=== PATIENT | female | born 1950 | race Caucasian/White ===

== ENCOUNTER 2024-07-10 10:44 | Outpatient (REF) | payer MEDICARE, SELFPAY ==
--- NOTE | ~2024-07-10 | XR_ITS ---
EXAMINATION: XR CERVICAL SPINE CLINICAL INFORMATION: G95.9 - Disease of spinal cord, unspecified COMPARISON: None available. TECHNIQUE: 6 views of the cervical spine, inclusive of flexion and extension views, were obtained. FINDINGS: There is a minimal levoconvex scoliosis. There is mild reversal of the normal lordosis centered at C5. No definite fracture, traumatic subluxation, compression deformity, or suspicious bone lesion. The craniocervical junction and C1-2 articulation are intact and aligned. Anterior fusion and discectomy C5-6, without hardware abnormality or loosening. There is bony fusion through the disc space and anterior to the prosthesis. Mild disc degeneration C3-4, C4-5, and C6-7. Multilevel facet degeneration without facet malalignment. Neutral view demonstrates a 2 mm anterolisthesis of C3 on C4. There is a trace retrolisthesis of C6 on C7 . Flexion view demonstrates mild increase of C3-4 anterolisthesis 3 mm. No additional changes. Extension view demonstrates reduction C3-4 anterolisthesis to neutral. Findings could represent mild instability. There is no prevertebral soft tissue abnormality. Mild left carotid bulb calcification. Lung apices demonstrate mild pleural thickening without additional abnormality. XR/XR cervical spine 4V IMPRESSION: 1. No acute findings of the cervical spine. 2. Fusion of C5-6 without complication. 3. Multilevel degenerative spondylosis as discussed. 4. Flexion and extension views demonstrate possible mild instability at C3-4. Electronically signed by: Aureliano Jaimes MD 07/11/2024 10:12 AM [facility] [place], [place]
--- OUTSIDE RECORDS SUMMARY | 2024-07-10 12:04 | XMS_ITS | Encounter Summary ---
Author Organization [facility] Address [address] [place] [address] Care Team Providers Care City Library Director Name Role Phone Bijal Fox NP Primary Care Provider [phone] Encounter Details Date Type Department Care Team (Late st Contact Info) Description 07/03/2024 Telephone [facility] Case Management Department [address] [place] [address] Mariajose Calvillo RN Social History Tobacco Use Types Packs/Day Years Used Date Smoking Tobacco: Former Smokeless Tobacco: Never Comments:: Alcohol Use Standard Drinks/Week Comments Not Currently 0 (1 standard drink = 0.6 oz pur e alcohol) [facility] Utilities Answer Date Recorded In the past [...] CHF Patient Call: This Chronic Disease Nurse Education Faculty Member called and 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 She tells this advertising writer she is doing well. She was at the pharmacy picking up her prescription for her nebulizer medication, she has been working with PT/OT through [facility]. She does still get a little shortness of breath with exertion, but no issues at rest or when laying down. She will be changing insurances on 07/20/24 to [employer]. Did you review the COPD educational material given to you in the hospital? Yes Are you monitoring your triggers? Yes Are you having any shortness of breath, wheezing, coughing? Shortness of breath with exertion only Are you having any difficulty breathing when lying down? No Are you doing the pursed lip/diaphragm breathing? Reviewed again Did you contact your PCP or Mechanical Handyman regarding your breathing issues? NA You have a follow up appointment with your PCP on: Was seen 07/02/24 You have a follow up appointment with your Mechanical Handyman on: The PCP is supposed to make [...] the home sanitized, avoiding sick contacts, using sort line worker when out in the community) Are you [...] more than 64 ounces per day) This advertising writer sent a secure chat to the [facility] team and asked them to [...] PM EDT Follow-Up [facility]phrology 100 [facility] [address] [place] [address] John Hendricks MD [address] [address] 01/08/2025 10:00 AM EDT Follow-Up [facility] 100 [facility] Cardiology 100 [facility] [address] [place] [address] Mabel Onofre NP [address] [place] [address] [address] [place] [address] documented as of this encounter Visit Diagnoses Not on filedocumented in this encounter Care Teams City Library Director Relationship Specialty Start Date End Date Bijal Fox NP [address] [place] [address] [address] [place] [address] PCP - General Family Medicine 05/30/24 documented as of this encounter
--- OUTSIDE RECORDS SUMMARY | 2024-07-10 12:04 | XMS_ITS | Encounter Summary ---
Author Organization [facility] Address [address] [place] [address] Care Team Providers Care Braid Cutter Name Role Phone Bijal Fox NP Primary Care Provider [phone] Reason for Referral * Diagnostic Imaging (Routine) - Authorized Specialty Diagnoses / Procedures Referred By Contac t Referred To Contact Diagnoses CKD stage 3a, GFR 45-59 ml/min (HCC) Chronic heart failure with preserved ejection fraction (HCC) Procedures US Kidney and Bladder Complete John Hendricks MD [address] [place] [address] Phone: tel: fax: Referral ID Status Reason Start Date Expiration Date V isits Requested Visits Authorized [id number] Authorized 07/01/2024 12/31/2025 1 1 Encounter Details Date Type Department Care Team (Late st Contact Info) Description 07/01/2024 3:15 PM EST Office Visit [facility] Neph[facility] [address] [place] [address], [address] [place] [address] John Hendricks MD [address] [place] [address] Hyperkalemia (Primary Dx); CKD stage 3a, GFR 45-59 ml/min (HCC); Chronic heart failure with preserved ejection fraction (HCC); Primary hypertension Social History Tobacco Use Types Packs/Day Years Used Date Smoking Tobacco: Former Smokeless Tobacco: Never Comments:: Alcohol Use Standard Drinks/Week Comments Not Currently 0 (1 standard drink = 0.6 oz pur e alcohol) [facility] Utilities Answer Date Recorded [...] Hendricks MD - 07/01/2024 3:25 PM EST [facility] Patient Name: Genie Vora Female Date of : 1950, 73 y.o. Date: 07/01/2024 Assessment & Plan 1. Hyperkalemia 2. CKD stage 3a, GFR 45-59 ml/min ([facility]) 3. Chronic heart failure with preserved ejection [...] 2011-07-29 Past Surgical History: Procedure Laterality Date NH ARTHROCENTESIS ASPIR&/INJ MAJOR JT/BURSA W/O US Right History of Arthrocentesis Injection Of Hip Joint Right hip steroid injection NH ARTHROCENTESIS ASPIR&/INJ MAJOR JT/BURSA W/O US Right History of Arthrocentesis Injection Of Hip Joint Right RIGHT HIP INJECTION WITH STEROID NH ARTHROCENTESIS ASPIR&/INJ MAJOR JT/BURSA W/O US Right History of Arthrocentesis Injection Of Hip Joint Right RIGHT HIP INJECTION NH ARTHROCENTESIS ASPIR&/INJ MAJOR JT/BURSA W/O US Right History of Arthrocentesis Injection Of Hip Joint Right RIGHT HIP CORTISONE INJECTION NH KNEE SCOPE,DIAGNOSTIC N/A History of Arthroscopy Knee NH ALVES W/O FACETEC FORAMOT/[facility] 05/23 VRT SEG, CERVICAL N/A History of Laminectomy Lumbar NH LAP,CHOLECYSTECTOMY N/A History of Cholecystectomy Laparoscopic PROCEDURE [...] visit. Allergies Allergen Reactions Prevacid [Lansoprazole] Indigestion Nzxtwoq-Ndc-Qdb Reductase Inhibitors Muscle Pain Per pt Objective [...] CONVERSION 09/01/2014 12:22 PM Dysphagia. Edited by: [id number] - 1232 [id number] - 0828 YASMINE CLINICAL HISTORY, CONVERSION 08/02/2013 04:39 PM Left wrist dequervain's and left carpal tunnel syndrome. Left wrist mass. Edited by: [id number] - 1747 APRIL CLINICAL HISTORY, CONVERSION 04/08/2010 03:39 PM Dyspepsia. Suspected gastroesophageal reflux disease. Dictated by: LACY CARBAJAL Edited by: [id number] - 2022 [place] [id number] CLINICAL HISTORY, CONVERSION 09/21/2006 02:09 PM Cholelithiasis. Edited by: [id number] - 1436 [facility] CLINICAL HISTORY, CONVERSION 04/26/2001 11:41 AM 50 year old female with a preop diagnosis of stress incontinence, urethral hypermobility, a rectocele and prolapsed cervix. The patient underwent abdominal hysterectomy and repair of rectocele. Edited by: [id number] - 1657 CLAUDIO CLINICAL HISTORY, CONVERSION 07/19/1999 12:15 PM Endometrial biopsy Edited by: [id number] - 0810 OWUSUC ALBUMIN 4.0 06/17/2024 07:03 [...] Info) Description 08/01/2024 2:00 PM EDT Follow-Up [facility] Nephrology [address] [place] [address] [address] [place] [address] John Hendricks MD [address] [place] [address] 01/08/2025 10:00 AM EDT Follow-Up [address]iology [address] [place] [address] [address] [place] [address] Mabel Onofre NP 100 [facility] [address] [place] [address] Scheduled Orders Name Type Priority Associated Diagnoses Orde r Schedule US Kidney and Bladder Complete Imaging Routine CKD stage 3a, GFR 45-59 ml/min (HCC) Chronic heart failure with preserved ejection fraction (HCC) Expected: 07/01/2024, Expires: 08/29/2025 documented as of this encounter Procedures * Due to [place] state law, this organization might not be [...] in this encounter Results * Due to [place] state law, this organization might not be sharing negative HIV tests. * (ABNORMAL) Microscopic Urinalysis Only (07/02/2024 9:17 AM EST) RBC, Urine 5-10(A) None Seen, 0-2 /HPF 07/02/2024 10:07 AM EST [facility] WBC, Urine 0-2 None Seen, 0-2 /HPF 07/02/2024 10:07 AM EST [facility] Squamous Epithelial Cells, Urine 0-2 /HPF 07/02/2024 10:07 AM EST [facility] Bacteria, Urine Occasional (A) None Seen /HPF 07/02/2024 10:07 AM EST [facility] Urine Urine specimen collection, clean catch / Unknown Non-Blood Collection / Unknown 07/02/2024 9:17 AM EST 07/02/2024 9:36 AM EST us John Hendricks MD LAB URINE ORDERABLES Final Resul t [facility] [address] [facility] [address] [place] [address], * (ABNORMAL) SPEP (Protein Electrophoresis w/Reflex to [...] 9:17 AM EST 07/02/2024 9:29 AM EST [facility] HILARY DAVID - 07/04/2024 8:59 AM EST [facility] Received Date: John Hendricks MD LAB BLOOD ORDERABLES Final Resul t HILARY DAVID [address] [facility] 3rd Floor, [place] [address], [place] [phone] * Magnesium (07/02/2024 9:17 AM EST) MG 1.9 1.5 - 2.5 mg/dL 07/02/2024 10:01 AM EST [facility] Blood Structure of peripheral vein / Unknown Venipuncture / Unknown 07/02/2024 9:17 AM EST 07/02/2024 9:29 AM EST John Hendricks MD LAB BLOOD ORDERABLES Final Resul t Performing Organization Address City/[facility] Co de Phone Number [facility] [address] [address], [place] [phone] * Microalbumin, Random Urine with Creatinine (07/02/2024 9:17 AM EST) Creatinine, Urine 55 mg/dL 07/02/2024 2:41 PM EST [facility] Microalbumin, Urine 4 <=20 mg/L 07/02/2024 2:41 PM EST [facility] Microalb/Creat Ratio, Random Urine 7.3 1.3 - 30.0 mg/g 07/02/2024 2:41 PM EST [facility] Urine Voided urine specimen / Unknown Non-Blood Collection / Unknown 07/02/2024 9:17 AM EST 07/02/2024 9:36 AM EST John Hendricks MD LAB URINE ORDERABLES Final Resul t Performing Organization Address [facility] Co de Phone Number [facility] [address] [place] [address], [place] [phone] * Protein, Random Urine with Creatinine (07/02/2024 9:17 AM EST) Protein, Urine 6 mg/dL 07/02/2024 2:41 PM EST [facility] Creatinine, Urine 55 mg/dL 07/02/2024 2:41 PM EST [facility] Protein/Creati nine Ratio 109 <200 mg/gmCr 07/02/2024 2:41 PM EST [facility] Urine Voided urine specimen / Unknown Non-Blood Collection / Unknown 07/02/2024 9:17 AM EST 07/02/2024 9:36 AM EST John Hendricks MD LAB URINE ORDERABLES Final Resul t Performing Organization Address City/[facility] Co de Phone Number [facility] [address] [address], [place] [phone] * (ABNORMAL) Urinalysis W/Reflex to Microscopic (No Culture) (07/02/2024 9:17 AM EST) Color, Urine Yellow Yellow 07/02/2024 9:44 AM EST [facility] Clarity, Urine Clear Clear 07/02/2024 9:44 AM EST [facility] Specific Leivasy, Urine 1.015 1.005 - 1.030 07/02/2024 9:44 AM EST [facility] pH, Urine 5.5 5.0 - 8.0 07/02/2024 9:44 AM EST [facility] Protein, Urine Negative Negative mg/dL 07/02/2024 9:44 AM EST [facility] Glucose, Urine Negative Negative mg/dL 07/02/2024 9:44 AM EST [facility] Ketones, Urine Negative Negative mg/dL 07/02/2024 9:44 AM EST [facility] Bilirubin, Urine Negative Negative 07/02/2024 9:44 AM EST [facility] Blood, Urine Small(A) Negative 07/02/2024 9:44 AM EST [facility] Nitrite, Urine Negative Negative 07/02/2024 9:44 AM EST [facility] Urobilinogen, Urine 0.2 0.2 - 1.0 E.U./dL 07/02/2024 9:44 AM EST [facility] Leukocyte Esterase, Urine Small(A) Negative 07/02/2024 9:44 AM EST [facility] Urine Urine specimen collection, clean catch / Unknown Non-Blood Collection / Unknown 07/02/2024 9:17 AM EST 07/02/2024 9:36 AM EST John Hendricks MD LAB URINE ORDERABLES Final Resul t Performing Organization Address [facility] Co de Phone Number [facility] [address] [address], [place] [phone] * (ABNORMAL) Vitamin D, 25-Hydroxy, Total, Immunoassay (07/02/2024 9:17 AM EST) Pathologist [facility] Vitamin D 25-OH 22.50(L) 30.00 - 80.00 ng/mL 07/02/2024 11:24 AM EST [facility] Blood Structure of peripheral vein / Unknown Venipuncture / Unknown 07/02/2024 9:17 AM EST 07/02/2024 9:29 AM EST John Hendricks MD LAB BLOOD ORDERABLES Final Resul t [facility] [address] [address], [place] [phone] * (ABNORMAL) Renal Function Panel (07/02/2024 9:17 AM EST) Pathologist [facility] NA 138 136 - 145 mmol/L 07/02/2024 10:02 AM EST [facility] K 4.4 3.5 - 5.1 mmol/L 07/02/2024 10:02 AM EST [facility] Comment:ALL DELTAS REVIEWED Cl 101 98 - 109 mmol/L 07/02/2024 10:02 AM EST [facility] CO2 26 22 - 32 mmol/L 07/02/2024 10:02 AM EST [facility] Anion Gap 15 >=0 07/02/2024 10:02 AM EST [facility] Glucose 115(H) 60 - 99 mg/dL 07/02/2024 10:02 AM EST [facility] BUN 37(H) 8 - 23 mg/dL 07/02/2024 10:02 AM [facility] Creatinine 1.47(H) 0.50 - 1.12 mg/dL 07/02/2024 10:02 AM EST [facility] Calcium 8.8 8.4 - 10.4 mg/dL 07/02/2024 10:02 AM EST [facility] Phosphorus 3.6 2.5 - 4.5 mg/dL 07/02/2024 10:02 AM EST [facility] Albumin 3.8 3.5 - 5.0 g/dL 07/02/2024 10:02 AM EST [facility] eGFR 38(L) >=60 mL/min/1. 73m2 07/02/2024 10:02 AM EST [facility] Comment:The estimated glomer ular filtration rate [...] MD LAB BLOOD ORDERABLES Final Resul t [facility] [address] [facility] [address] [place] [address], * (ABNORMAL) PTH, Intact (without Calcium) (07/02/2024 9:17 AM EST) Parathyroid Hormone, Intact 226.0(H) 14.5 - 87.1 pg/mL 07/02/2024 11:19 AM EST [facility] Comment: This test was performed using the chemiluminescent immunoassay (CLIA) intended for the quantitative determination of intact human parathyroid hormone method on the [employer] LIAISON. Values obtained from different assay methods cannot be used interchangeably. Assay results should be utilized in conjunction with other clinical and laboratory data Blood Structure of peripheral vein / Unknown Venipuncture / Unknown 07/02/2024 9:17 AM EST 07/02/2024 9:29 AM EST John Hendricks MD LAB BLOOD ORDERABLES Final Resul t Performing Organization Address [facility]/ZIP Co de Phone Number [facility] [address] [address], [place] [phone] * Hemoglobin and Hematocrit (07/02/2024 9:17 AM EST) Hemoglobin 12.0 11.7 - 15.5 g/dL 07/02/2024 9:38 AM EST [facility] Hematocrit 37.1 35.7 - 45.8 % 07/02/2024 9:38 AM EST [facility] Blood Structure of peripheral vein / Unknown Venipuncture / Unknown 07/02/2024 9:17 AM EST 07/02/2024 9:29 AM EST John Hendricks MD LAB BLOOD ORDERABLES Final Resul t Performing Organization Address City/[facility] Co de Phone Number [facility] [address] [address], [place] [phone] documented in this encounter Visit Diagnoses Diagnosis Hyperkalemia- Primary Hyperpotassemia CKD stage 3a, GFR 45-59 ml/min (HCC) Chronic heart failure with preserved ejection fraction (HCC) Primary hypertension Unspecified essential hypertension documented in this encounter Care Teams Braid Cutter Relationship Specialty Start Date End Date Bijal Fox NP [address] [place] [address] [address] [place] [address] PCP - General Family Medicine 05/30/24 documented as of this encounter
--- OUTSIDE RECORDS SUMMARY | 2024-07-10 12:04 | XMS_ITS | Encounter Summary ---
Author Organization [facility] Address [address] [place] [address] Care Team Providers Care Clipman Name Role Phone Brandyn Pagan MD Primary Care Provider Unavaila Radha Fink NP Unavailable Unavailable Unknown Pcp, Non Rmg Primary Care Provider Unava ilable Encounter Details Date Type Department Care Team ([facility] st Contact Info) Description 12/29/2015 Orders Only [address] [facility] Magnetic Resonance Imaging [address] [place] [address] Radha Spangler NP Social History Tobacco Use [...] this encounter Procedures * Due to [place] [employer] law, this organization might not be sharing [...] this encounter Results * Due to [place] [employer] law, this organization might not be sharing negative HIV tests. * (ABNORMAL) BASIC METABOLIC PANEL WITH (GFR) (12/29/2015 10:04 AM EDT) Glucose 98 65 - 99 mg/dL [facility] Comment: {GLUCOSE {[id number]) ? Fasting reference interval Urea Nitrogen Blood (BUN) 22 7 - 25 mg/dL [facility] Comment:{UREA NITROGEN (BUN) {[id number]) Creatinine 1.20(H) 0.50 - 0.99 mg/dL [facility] Comment: {CREATININE {[id number]) For patients >49 years of age, the reference limit for Creatinine is approximately 13% higher for people identified as -Congolese. GFR 48(L) > OR = 60 mL/min/1. 73m2 [facility] Comment:{eGFR NON-AFR. AMERI CAN {[id number]) GFR () 55(L) > OR = 60 mL/min/1. 73m2 [facility] Comment:{eGFR AMERIC AN {[id number]) BUN/Creatinine Ratio 18 6 - 22 (calc) [facility] Comment:{BUN/CREATININE RATI O {[id number]) Sodium 138 135 - 146 mmol/L [facility] Comment:{SODIUM {[id number]) Potassium 5.1 3.5 - 5.3 mmol/L [facility] Comment:{POTASSIUM {[id number]) Chloride 106 98 - 110 mmol/L [facility] Comment:{CHLORIDE {[id number]) Carbon dioxide 25 20 - 31 mmol/L [facility] Comment:{CARBON DIOXIDE {[id number]) Calcium 9.7 8.6 - 10.4 mg/dL [facility] Comment:{CALCIUM {[id number]) 12/29/2015 10:0 4 AM EDT 12/29/2015 [...] NP LABORATORY Final Result [facility] [address] [place] [address] * (ABNORMAL) LIPID PANEL WITH REFLEX TO DIRECT LDL (12/29/2015 10:04 AM EDT) Cholesterol 232(H) 125 - 200 mg/dL [facility] Comment:{CHOLESTEROL, TOTAL {[id number]) HDL Cholesterol 80 > OR = 46 mg/dL [facility] Comment:{HDL CHOLESTEROL {[id number]) Triglyceride 112 <150 mg/dL [facility] Comment:{TRIGLYCERIDES {[id number]) LDL Cholesterol 130(H) <130 mg/dL (calc) [facility] Comment: {LDL-CHOLESTEROL {[id number]) Desirable range <100 mg/dL for patients with CHD or diabetes and <70 mg/dL for diabetic patients with known heart disease. CHOL/HDL Ratio 2.9 < OR = 5.0 (calc) [facility] Comment:{CHOL/HDLC RATIO {[id number]) Cholesterol Non-HDL 152 mg/dL (calc) [facility] Comment: {NON HDL CHOLESTEROL {[id number]) Target for non-HDL cholesterol is 30 mg/dL higher than LDL cholesterol target. 12/29/2015 10:0 4 AM EDT 12/29/2015 3:11 PM EDT Narrative Resulting Agency Comment [id number] Radha Spangler NP LABORATORY Final Result Performing Organization Address City/[facility]/ZIP Co de Phone Number [facility] [address] [place] [id number] * ALANINE AMINOTRANSFERASE (ALT), SERUM (12/29/2015 10:04 AM EDT) ALT (SGPT) 25 6 - 29 U/L [facility] Comment:{ALT {[id number]) 12/29/2015 10:0 4 AM EDT 12/29/2015 3:11 PM EDT Narrative Resulting Agency Comment [id number] Radha Spangler NP LAB SAME DAY RESULT Final Re sult Performing Organization Address City/[facility] Co de Phone Number [facility] [address] [place] [address] documented in this encounter Visit Diagnoses Diagnosis Cervicodynia Cervicalgia Hyperlipidemia, unspecified hyperlipidemia type Essential hypertension with goal blood pressure less than 140/90 documented in this encounter Care Teams Clipman Relationship Specialty Start Date End Date Brandyn Pagan MD PCP - General Internal Medicine 08/07/15 02/02/17 Radha Spangler NP PCP - Backup PCP Internal Medicine 01/11/16 02/02/17 Unknown Pcp, Non Rmg PCP - General 02/03/17 documented as of this encounter
--- OUTSIDE RECORDS SUMMARY | 2024-07-10 12:04 | XMS_ITS | Encounter Summary ---
Author Organization [facility] Address [address] [place] [address] Care Team Providers Care Malt House Loader Name Role Phone Bijal Fox NP Primary Care Provider [phone] Encounter Details Date Type Department Care Team (Late st Contact Info) Description 07/01/2024 9:05 AM EST Lab [facility] [address] [place] [address] Diastolic heart failure, unspecified HF chronicity (HCC) Social History Tobacco Use Types Packs/Day Years Used Date Smoking Tobacco: Former Smokeless Tobacco: Never Comments:: Alcohol Use Standard Drinks/Week Comments Not Currently 0 (1 standard drink = 0.6 oz pur e alcohol) [facility] Utilities Answer Date Recorded In the [...] Info) Description 08/01/2024 2:00 PM EDT Follow-Up [facility] Nephrology [address] [place] [address] [address] [place] [address] John Hendricks MD [address] [address] 01/08/2025 10:00 AM EDT Follow-Up [address] Cardiology [address] [place] [address] Mabel Onofre NP [address] [place] [address] documented as of this encounter Procedures * Due to [place] state law, this organization might not be [...] 288 <=900 pg/mL 07/01/2024 9:39 AM EST [facility] Comment: RULE IN CHF >/= [...] EST 07/01/2024 9:05 AM EST Mabel Onofre CLIP BOLTER AND WRAPPER LAB BLOOD ORDERABLES Final Result Performing Organization Address City/State/[facility] Co de Phone Number [facility] [address] [place] [address], * (ABNORMAL) Basic metabolic panel (07/01/2024 8:39 AM EST) NA 140 136 - 145 mmol/L 07/01/2024 9:36 AM EST [facility] K 5.3(H) 3.5 - 5.1 mmol/L 07/01/2024 9:36 AM EST [facility] Cl 102 98 - 109 mmol/L 07/01/2024 9:36 AM EST [facility] CO2 29 22 - 32 mmol/L 07/01/2024 9:36 AM EST [facility] BUN 34(H) 8 - 23 mg/dL 07/01/2024 9:36 AM EST [facility] Creatinine 1.27(H) 0.50 - 1.12 mg/dL 07/01/2024 9:36 AM EST [facility] Glucose 113(H) 60 - 99 mg/dL 07/01/2024 9:36 AM EST [facility] Calcium 8.9 8.4 - 10.4 mg/dL 07/01/2024 9:36 AM EST [facility] Anion Gap 14 >=0 07/01/2024 9:36 AM EST [facility] eGFR 45(L) >=60 mL/min/1. 73m2 07/01/2024 9:36 AM EST [facility] Comment:The estimated glomer ular filtration [...] Onofre NP LAB BLOOD ORDERABLES Final Result [facility] [address] [place] [address], documented in this encounter Visit Diagnoses Diagnosis Diastolic heart failure, unspecified HF chronicity (HCC) documented in this encounter Care Teams Malt House Loader Relationship Specialty Start Date End Date Bijal Fox NP [address] [place] [address] PCP - General Family Medicine 05/30/24 documented as of this encounter
--- OUTSIDE RECORDS SUMMARY | 2024-07-10 12:04 | XMS_ITS | Encounter Summary ---
Author Organization [facility] Address [address] [place] [address] Care Team Providers Care Pick Up Worker Name Role Phone Brandyn Pagan MD Primary Care Provider Radha Cuevas NP Unavailable Unavailable Unknown Pcp, Non Rmg Primary Care Provider Unava ilable Encounter Details Date Type Department Care Team (Late st Contact Info) Description 11/13/2015 Orders Only [facility] [address] [place] [address] Brandyn Pagan MD Social History Tobacco Use [...] this encounter Procedures * Due to [place] [employer] law, this organization might not be sharing [...] this encounter Results * Due to [place] [employer] law, this organization might not be sharing negative HIV tests. * (ABNORMAL) URINALYSIS, DIP ONLY ( SITE STAT ONLY) (11/13/2015 1:00 PM EDT) COLOR (URINE) YELLOW [facility] (CLIA# [id number]) APPEARANCE (URINE) CLEAR [facility] (CLIA# [id number]) SPECIFIC GRAVITY 1.015 1.001 - 1.035 [facility] (CLIA# [id number]) PH (URINE) 6.0 5.0 - 8.0 [facility] (CLIA# [id number]) PROTEIN (URINE) NEGATIVE Neg [facility] (CLIA# [id number]) GLUCOSE (URINE) NEGATIVE Neg [facility] (CLIA# [id number]) Ketones (Urine) NEGATIVE Neg [facility] (CLIA# [id number]) BILIRUBIN (URINE) NEGATIVE Neg [facility] (CLIA# [id number]) BLOOD (URINE) NEGATIVE Neg [facility] (CLIA# [id number]) Leukocyte esterase (Urine) 1+(A) [facility] (CLIA# [id number]) NITRITE (URINE) NEGATIVE Neg [facility] (CLIA# [id number]) Urine specimen obtained by clean catch procedure (specimen) 11/13/2015 1:00 PM EDT Narrative [facility] (CLIA# [id number]) - 11/13/2015 1:00 PM EDT Micro and culture already ordered per provider. us Brandyn Pagan MD LAB SAME DAY RESULT Final Resul t [facility] (CLIA# [id number]) [address] [place] [address] * CREATINE KINASE (CK), SERUM (11/13/2015 12:24 PM EDT) CPK 143 29 - 143 U/L [facility] Comment:{CREATINE KINASE, TO KENZIE {[id number]) 11/13/2015 12:2 4 PM EDT 11/13/2015 10:19 PM EDT Narrative Resulting Agency Comment [id number] us Brandyn Pagan MD LAB SAME DAY RESULT Final Resul t Performing Organization Address [facility] de Phone Number [facility] [address] [place] [address] * ALANINE AMINOTRANSFERASE (ALT), SERUM (11/13/2015 12:24 PM EDT) ALT (SGPT) 29 6 - 29 U/L [facility] Comment:{ALT {[id number]) 11/13/2015 12:2 4 PM EDT 11/13/2015 10:19 PM EDT Narrative Resulting Agency Comment [id number] Brandyn Pagan MD LAB SAME DAY RESULT Final Resul t Performing Organization Address [facility] de Phone Number [facility] [address] [place] [address] * C-REACTIVE PROTEIN (CRP) - INFLAMMATION (11/13/2015 12:24 PM EDT) C reactive protein 0.28 <0.80 mg/dL [facility] Comment: {C-REACTIVE PROTEIN {[id number]) Please be advised that patients taking Carboxypenicillins may exhibit falsely decreased C-Reactive Protein levels due to an analytical interference in this assay. 11/13/2015 12:2 4 PM EDT 11/13/2015 10:19 PM EDT Narrative Resulting Agency Comment [id number] Brandyn Pagan MD LABORATORY Final Result Performing Organization Address [facility] de Phone Number [facility] [address] [place] [address] * ERYTHROCYTE SEDIMENTATION RATE (ESR), WESTERGREN (11/13/2015 12:24 PM EDT) Sedimentation Rate [place] (ESR) 6 < OR = 30 mm/h [facility] Comment:{SED RATE BY MODIFBILLIE D JAZMINEREN {[id number]) 11/13/2015 12:2 4 PM EDT 11/13/2015 10:19 PM EDT Narrative Resulting Agency Comment [id number] us Brandyn Pagan MD LAB SAME DAY RESULT Final Resul t [facility] [address] [place] [address] * (ABNORMAL) CULTURE, URINE, ROUTINE (11/13/2015 12:24 PM EDT) Bacteria culture (Urine) SEE NOTE(A) [facility] Comment: {CULTURE, URINE, ROUTINE {[id number]) ??CULTURE, URINE, ROUTINE ??MICRO NUMBER: ?[id number] ??TEST STATUS: ? FINAL ??SPECIMEN SOURCE: ?? [...] 10:19 PM EDT Narrative Resulting Agency Comment [id number] us Brandyn Pagan MD LABORATORY Final Result [facility] [address] [place] [address] * (ABNORMAL) URINALYSIS, MICROSCOPIC (11/13/2015 12:24 PM EDT) WBC (Urine) 10-20(A) < OR = 5 /HPF [facility] Comment:{WBC {[id number]) RBC (Urine Sed) NONE SEEN < OR = 2 /HPF [facility] Comment:{RBC {[id number]) Epithelial cells.squamous (Urine sed) 0-5 < OR = 5 /HPF [facility] Comment:{SQUAMOUS EPITHELIAL CELLS {[id number]) Bacteria (Urine) NONE SEEN NONE SEEN /HPF [facility] Comment:{BACTERIA {[id number]) Hyaline casts (Urine sed) NONE SEEN NONE SEEN /LPF [facility] Comment:{HYALINE CAST {[id number]) 11/13/2015 12:2 4 PM EDT 11/13/2015 10:19 PM EDT Narrative Resulting Agency Comment [id number] us Brandyn Pagan MD LAB SAME DAY RESULT Final Resul t [facility] [address] [place] [address] documented in this encounter Visit Diagnoses Diagnosis Urinary tract infection, site unspecified Muscle ache Mylagia and myositis, unspecified Routine history and physical examination of adult Routine general medical examination at a health care facility documented in this encounter Care Teams Pick Up Worker Relationship Specialty Start Date End Date Brandyn Pagan MD PCP - General Internal Medicine 08/07/15 02/02/17 Radha Spangler NP PCP - Backup PCP Internal Medicine 01/11/16 02/02/17 Unknown Pcp, Non Rmg PCP - General 02/03/17 documented as of this encounter
--- OUTSIDE RECORDS SUMMARY | 2024-07-10 12:04 | XMS_ITS | Encounter Summary ---
Author Organization [facility] Address [address] [place] [address] Care Team Providers Care Clinical Rehabilitation Liaison Name Role Phone Bijal Fox NP Primary Care Provider [phone] Encounter Details Date Type Department Care Team (Late st Contact Info) Description 07/02/2024 10:05 AM EST Lab [facility] Site Department [address] [place] [address] Social History Tobacco Use Types Packs/Day Years Used Date Smoking Tobacco: Former Smokeless Tobacco: Never Comments:: Alcohol Use Standard Drinks/Week Comments Not Currently 0 (1 standard drink = 0.6 oz pur e alcohol) [facility] Utilities Answer Date Recorded In the [...] Upcoming Encounters Date Type Department Care Team ([facility] st Contact Info) Description 08/01/2024 2:00 PM EDT Follow-Up [facility] Nephrology [address] [place] [address] [address] [place] [address] John Hendricks MD 123 [facility] [address] [place] [address] 01/08/2025 10:00 AM EDT Follow-Up [facility] 100 [facility] Cardiology 100 [facility] [address] [place] [address] Mabel Onofre NP [address] [place] [address] [address] [place] [address] documented as of this encounter Visit Diagnoses Not on filedocumented in this encounter Care Teams Clinical Rehabilitation Liaison Relationship Specialty Start Date End Date Bijal Fox NP [address] [place] [address] [address] [place] [address] PCP - General Family Medicine 05/30/24 documented as of this encounter
--- OUTSIDE RECORDS SUMMARY | 2024-07-10 12:04 | XMS_ITS | Encounter Summary ---
Author Organization [facility] Address [address] [place] [address] Care Team Providers Care Fats And Oils Loader Name Role Phone Brandyn Pagan MD Primary Care Provider Unavaila Radha Fink NP Unavailable Unavailable Unknown Pcp, Non Rmg Primary Care Provider Unava ilable Encounter Details Date Type Department Care Team (Late st Contact Info) Description 12/02/2016 Orders Only [facility] [address] [place] [phone] Brandyn Pagan MD Social History Tobacco Use [...] Cervicalgia documented in this encounter Care Teams Fats And Oils Loader Relationship Specialty Start Date End Date Brandyn Pagan MD PCP - General Internal Medicine 08/07/15 02/02/17 Radha Spangler NP PCP - Backup PCP Internal Medicine 8/22/16 9/14/17 Unknown Pcp, Non Rmg PCP - General 02/03/17 documented as of this encounter
--- OUTSIDE RECORDS SUMMARY | 2024-07-10 12:04 | XMS_ITS | Encounter Summary ---
Author Organization [facility] Address [address] [place] [address] Care Team Providers Care Custom Tailor Name Role Phone Bijal Fox NURSE HEAD Primary Care Provider [phone] Reason for Visit * Consultation (Routine) - Authorized Specialty Diagnoses / Procedures Referred By Contac t Referred To Contact Family Medicine / Cardiology Diagnoses *TCM d/c 2/5 Procedures TRANSITIONAL CARE MANAGEMENT Bijal Fox NP [address] [place] [address] Phone: tel: fax: Mabel Onofre NP [address] [place] [address] Phone: tel: fax: Referral ID Status Reason Start Date Expiration Date V isits Requested Visits Authorized [id number] Authorized 07/03/2024 01/02/2026 6 6 Encounter Details Date Type Department Care Team (Late st Contact Info) Description 07/03/2024 2:30 PM EST Office Visit [address] Cardiology [address] [place] [address] Mabel Onofre NP [address] [place] [address] Diastolic heart failure, unspecified HF chronicity (HCC) (Primary Dx); Paroxysmal atrial fibrillation (HCC); Pulmonary hypertension (HCC); BILLIE (obstructive sleep apnea); Benign hypertensive heart disease without congestive heart failure Social History Tobacco Use Types Packs/Day Years Used Date Smoking Tobacco: Former Smokeless Tobacco: Never Comments:: Alcohol Use Standard Drinks/Week Comments Not Currently 0 (1 standard drink = 0.6 oz pur e alcohol) [facility] Utilities Answer Date Recorded In the past [...] Follow Up Visit @[email or web address]@ Genie Vora 1950 [id number] Impression / Recommendations 1. Diastolic heart failure, [...] card. Her insurance will be changing to [employer] in July and that will be affordable [...] follow-up. [place] She presented to the [...] Family History of depression Allergies Prevacid [Lansoprazole] Thfwefi-Qpn-Zbx Reductase Inhibitors Medications Current Outpatient Medications Medication [...] possible toobtain the completed interpretation. Workstation ID: [id number] Prior Echo Procedures Transthoracic echo (TTE) Exam [...] Upcoming Encounters Date Type Department Care Team ([facility] st Contact Info) Description 08/01/2024 2:00 PM EDT Follow-Up [facility] Nephrology [address] [place] [address] [address] [place] [address] John Hendricks MD 123 [facility] [address] [place] [address] 01/08/2025 10:00 AM EDT Follow-Up [facility] 100 [facility] Cardiology [address] [place] [address] [address] [place] [address] aMbel Onofre NP [address] [place] [address] [address] [place] [address] documented as of this encounter Visit Diagnoses Diagnosis Diastolic heart failure, unspecified HF chronicity (HCC)- Primary Paroxysmal atrial fibrillation (HCC) Atrial fibrillation Pulmonary hypertension (HCC) Other chronic pulmonary heart diseases BILLIE (obstructive sleep apnea) Obstructive sleep apnea (adult) (pediatric) Benign hypertensive heart disease without congestive heart failure Benign hypertensive heart disease without heart failure documented in this encounter Care Teams Custom Tailor Relationship Specialty Start Date End Date Bijal Fox NP [address] [place] [address] [address] [place] [address] PCP - General Family Medicine 05/30/24 documented as of this encounter
--- OUTSIDE RECORDS SUMMARY | 2024-07-10 12:04 | XMS_ITS | Encounter Summary ---
Author Organization [facility] Address [address] [place] [address] Care Team Providers Care Relief Map Modeler Name Role Phone Bijal Fox GUARD SUPERVISOR Primary Care Provider [phone] Encounter Details Date Type Department Care Team (Late st Contact Info) Description 07/01/2024 Orders Only [facility] 100 [facility] Cardiology [address] [place] [address] [address] [place] [address] Mabel Onofre NP 100 [facility] [address] [place] [address] Social History Tobacco Use Types Packs/Day Years [...] 2:00 PM EDT Follow-Up [facility] Nephrology [address] [place] [address] [address] [place] [address] John Hendricks MD 123 [facility] [address] [place] [address] 01/08/2025 10:00 AM EDT Follow-Up [address] Cardiology [address] [place] [address] [address] [place] [address] Mabel Onofre NP [address] [place] [address] [address] [place] [address] documented as of this encounter Visit Diagnoses Not on filedocumented in this encounter Care Teams Relief Map Modeler Relationship Specialty Start Date End Date Bijal Fox NP [address] [place] [address] [address] [place] [address] PCP - General Family Medicine 05/30/24 documented as of this encounter
--- OUTSIDE RECORDS SUMMARY | 2024-07-10 12:04 | XMS_ITS | Encounter Summary ---
Author Organization [facility] Address [address] [place] [address] Care Team Providers Care Skip Locator Name Role Phone Brandyn Pagan MD Primary Care Provider Unavaila Radha Fink NP Unavailable Unavailable Unknown Pcp, Non Rmg Primary Care Provider Unava ilable Encounter Details Date Type Department Care Team (Late st Contact Info) Description 11/02/2015 Orders Only [facility] [address] [place] [address] Radha Spangler NP Social History Tobacco Use [...] this encounter Procedures * Due to [place] [employer] law, this organization might not be sharing negative HIV tests. Procedure Name Priority Date/Time Associated Diagnosis Comments ALANINE AMINOTRANSFERASE (ALT), SERUM Routine 11/02/2015 12:44 PM EDT Hyperlipidemia, unspecified hyperlipidemia type CREATINE KINASE (CK), SERUM Routine 11/02/2015 12:44 PM EDT Hyperlipidemia, unspecified hyperlipidemia type documented in this encounter Results * Due to [place] [employer] law, this organization might not be sharing negative HIV tests. * CREATINE KINASE (CK), SERUM (11/02/2015 12:44 PM EDT) CPK 106 29 - 143 U/L [facility] Comment:{CREATINE KINASE, TO KENZIE {[id number]) 11/02/2015 12:4 4 PM EDT 11/03/2015 2:14 AM EDT Narrative Resulting Agency Comment [id number] Radha Spangler EDUCATIONAL TECHNICIAN LAB SAME DAY RESULT Final Re sult [facility] [address] [place] [address] * ALANINE AMINOTRANSFERASE (ALT), SERUM (11/02/2015 12:44 PM EDT) ALT (SGPT) 22 6 - 29 U/L [facility] Comment:{ALT {[id number]) 11/02/2015 12:4 4 PM EDT 11/03/2015 2:14 AM EDT Narrative Resulting Agency Comment [id number] us Radha Spangler EDUCATIONAL TECHNICIAN LAB SAME DAY RESULT Final Re sult [facility] [address] [place] [address] documented in this encounter Visit Diagnoses Diagnosis Hyperlipidemia, unspecified hyperlipidemia type documented in this encounter Care Teams Skip Locator Relationship Specialty Start Date End Date Brandyn Pagan MD PCP - General Internal Medicine 08/07/15 02/02/17 Radha Spangler NP PCP - Backup PCP Internal Medicine 01/11/16 02/02/17 Unknown Pcp, Non Rmg PCP - General 02/03/17 documented as of this encounter
--- OUTSIDE RECORDS SUMMARY | 2024-07-10 12:04 | XMS_ITS | Encounter Summary ---
Author Organization [facility] Address [address] [place] [address] Care Team Providers Care Rubber Calender Helper Name Role Phone Brandyn Pagan MD Primary Care Provider Unavaila Radha Fink NP Unavailable Unavailable Unknown Pcp, Non Rmg Primary Care Provider Unava ilable Encounter Details Date Type Department Care Team (Late st Contact Info) Description 12/05/2016 Orders Only [facility] [address] [place] [address] Brandyn Pagan MD Social History Tobacco Use [...] Cervicalgia documented in this encounter Care Teams Rubber Calender Helper Relationship Specialty Start Date End Date Brandyn Pagan MD PCP - General Internal Medicine 08/07/15 02/02/17 Radha Spangler NP PCP - Backup PCP Internal Medicine 01/11/16 02/02/17 Unknown Pcp, Non [facility] PCP - General 02/03/17 documented as of this encounter
--- OUTSIDE RECORDS SUMMARY | 2024-07-10 12:04 | XMS_ITS | Encounter Summary ---
Author Organization [facility] Address [address] [place] [address] Care Team Providers Care Uptwister Tender Name Role Phone Brandyn Pagan MD Primary Care Provider Radha Cuevas NP Unavailable Unavailable Unknown Pcp, Non [facility] Primary Care Provider Unava ilable Encounter Details Date Type Department Care Team (Late st Contact Info) Description 10/06/2015 Orders Only [facility] [address] [place] [phone] Brandyn Pagan MD Social History Tobacco Use [...] proper risk profile. I cannot run the [place] [employer] risk calculator. The decision related [...] this encounter Procedures * Due to [place] First Class EV Conversions law, this organization might not be sharing [...] in this encounter Results * Due to [place] First Class EV Conversions law, this organization might not be sharing negative HIV tests. * (ABNORMAL) URINALYSIS, DIP ONLY ( SITE STAT ONLY) (10/06/2015 11:19 AM EDT) COLOR (URINE) YELLOW [facility] (CLIA# [id number]) APPEARANCE (URINE) CLOUDY [facility] (CLIA# [id number]) SPECIFIC GRAVITY 1.020 1.001 - 1.035 [facility] (CLIA# [id number]) PH (URINE) 5.0 5.0 - 8.0 [facility] (CLIA# [id number]) PROTEIN (URINE) TRACE(A) Neg [facility] (CLIA# [id number]) GLUCOSE (URINE) NEGATIVE Neg [facility] (CLIA# [id number]) Ketones (Urine) NEGATIVE Neg [facility] (CLIA# [id number]) BILIRUBIN (URINE) NEGATIVE Neg [facility] (CLIA# [id number]) BLOOD (URINE) NEGATIVE Neg [facility] (CLIA# [id number]) Leukocyte esterase (Urine) 1+(A) [facility] (CLIA# [id number]) NITRITE (URINE) POSITIVE(A) Neg [facility] (CLIA# [id number]) Urine specimen obtained by clean catch procedure (specimen) 10/06/2015 11:19 AM EDT Narrative [facility] (CLIA# [id number]) - 10/06/2015 11:19 AM EDT Micro and culture already ordered per provider. us Brandyn Pagan MD LAB SAME DAY RESULT Final Resul t [facility] (CLIA# [id number]) [address] [place] [address] * (ABNORMAL) CULTURE, URINE, ROUTINE (10/06/2015 10:11 AM EDT) Pathologist [facility] Bacteria culture (Urine) SEE NOTE(A) [facility] Comment: {CULTURE, URINE, ROUTINE {[id number]) ??CULTURE, URINE, ROUTINE ??MICRO NUMBER: ?[id number] ??TEST STATUS: ? FINAL ??SPECIMEN SOURCE: ?? [...] 6:19 PM EDT Narrative Resulting Agency Comment [id number] Brandyn Pagan MD LABORATORY Final Result Performing Organization Address City/State/[facility] Co de Phone Number [facility] [address] [place] [address] * (ABNORMAL) URINALYSIS, MICROSCOPIC (10/06/2015 10:11 AM EDT) WBC (Urine) 20-40(A) < OR = 5 /HPF [facility] Comment:{WBC {[id number]) RBC (Urine Sed) 0-2 < OR = 2 /HPF [facility] Comment:{RBC {[id number]) Epithelial cells.squamous (Urine sed) NONE SEEN < OR = 5 /HPF [facility] Comment:{SQUAMOUS EPITHELIAL CELLS {[id number]) Bacteria (Urine) MANY(A) NONE SEEN /HPF [facility] Comment:{BACTERIA {[id number]) Hyaline casts (Urine sed) NONE SEEN NONE SEEN /LPF [facility] Comment:{HYALINE CAST {[id number]) 10/06/2015 10:1 1 AM EDT 10/06/2015 6:19 PM EDT Narrative Resulting Agency Comment [id number] Brandyn Pagan MD LAB SAME DAY RESULT Final Resul t Performing Organization Address City/[facility] Co de Phone Number [facility] [address] [place] [address] * GLUCOSE (BLOOD) (10/06/2015 10:11 AM EDT) Glucose 86 65 - 99 mg/dL [facility] Comment: {GLUCOSE {[id number]) ? Fasting reference interval 10/06/2015 10:1 1 AM EDT 10/06/2015 6:19 PM EDT Narrative Resulting Agency Comment [id number] Brandyn Pagan MD LAB SAME DAY RESULT Final Resul t Performing Organization Address [facility] de Phone Number [facility] [address] [place] [address] * (ABNORMAL) LIPID PANEL WITH REFLEX TO DIRECT LDL (10/06/2015 10:11 AM EDT) Cholesterol 243(H) 125 - 200 mg/dL [facility] Comment:{CHOLESTEROL, TOTAL {[id number]) HDL Cholesterol 71 > OR = 46 mg/dL [facility] Comment:{HDL CHOLESTEROL {[id number]) Triglyceride 163(H) <150 mg/dL [facility] Comment:{TRIGLYCERIDES {[id number]) LDL Cholesterol 139(H) <130 mg/dL (calc) [facility] Comment: {LDL-CHOLESTEROL {[id number]) Desirable range <100 mg/dL for patients with CHD or diabetes and <70 mg/dL for diabetic patients with known heart disease. CHOL/HDL Ratio 3.4 < OR = 5.0 (calc) [facility] Comment:{CHOL/HDLC RATIO {[id number]) Cholesterol Non-HDL 172(H) mg/dL (calc) [facility] Comment: {NON HDL CHOLESTEROL {[id number]) Target for non-HDL cholesterol is 30 mg/dL higher than LDL cholesterol target. 10/06/2015 10:1 1 AM EDT 10/06/2015 6:19 PM EDT Narrative Resulting Agency Comment [id number] Brandyn Pagan MD LABORATORY Final Result Performing Organization Address City/State/[facility] Co de Phone Number [facility] [address] [place] [address] documented in this encounter Visit Diagnoses Diagnosis Lipid screening Screening for lipoid disorders Screening for cardiovascular condition Screening for other and unspecified cardiovascular conditions Screening for diabetes mellitus Urinary tract infection, site unspecified documented in this encounter Care Teams Uptwister Tender Relationship Specialty Start Date End Date Brandyn Pagan MD PCP - General Internal Medicine 08/07/15 02/02/17 Radha Spangler NP PCP - Backup PCP Internal Medicine 01/11/16 02/02/17 Unknown Pcp, Non [facility] PCP - General 02/03/17 documented as of this encounter
--- OUTSIDE RECORDS SUMMARY | 2024-07-10 12:04 | XMS_ITS | Encounter Summary ---
Author Organization [facility] Address [address] [place] [address] Care Team Providers Care Automotive Sales Executive Name Role Phone Bijal Fox STATISTICAL METHODS PROFESSOR Primary Care Provider [phone] Encounter Details Date Type Department Care Team (Late st Contact Info) Description 07/04/2024 Orders Only [facility] [address] [place] [address] Magy Sawyer NP [address] [facility] [address] [place] [phone] Hyperlipidemia, unspecified hyperlipidemia type (Primary Dx); Myxedema heart disease Social History Tobacco Use Types Packs/Day Years Used Date Smoking Tobacco: Former Smokeless Tobacco: Never Comments:: Alcohol Use Standard Drinks/Week Comments Not Currently 0 (1 standard drink = 0.6 oz pur e alcohol) [facility] Utilities Answer Date Recorded In the past 12 months has th e [address] [employer], gas, oil, or water [employer] threatened to shut off services in your [...] Upcoming Encounters Date Type Department Care Team ([facility] st Contact Info) Description 08/01/2024 2:00 PM EDT Follow-Up [facility] [address] [place] [address] [address] [place] [address] John Hendricks MD [address] [place] [address] 01/08/2025 10:00 AM EDT Follow-Up [address] Cardiology 100 [facility] [address] [place] [address] Mabel Onofre NP [address] [place] [phone] Scheduled Orders Name Type Priority Associated Diagnoses [...] hypothyroidism documented in this encounter Care Teams Automotive Sales Executive Relationship Specialty Start Date End Date Bijal Fox NP [address] [place], [place] [phone] [place] [address] PCP - General Family Medicine 05/30/24 documented as of this encounter
--- OUTSIDE RECORDS SUMMARY | 2024-07-10 12:05 | XMS_ITS | Encounter Summary ---
Author Organization [facility] Address [address] [place] [address] Care Team Providers Care Processing Manager Name Role Phone Brandyn Pagan MD Primary Care Provider Unavaila Radha Fink NP Unavailable Unavailable Unknown Pcp, Non [facility] Primary Care Provider Unava ilable Encounter Details Date Type Department Care Team (Late st Contact Info) Description 01/08/2016 Orders Only [facility] [address] [place] [phone] Brandyn Pagan MD Social History Tobacco Use [...] on filedocumented in this encounter Care Teams Processing Manager Relationship Specialty Start Date End Date Brandyn Pagan MD PCP - General Internal Medicine 08/07/15 02/02/17 Radha Spangler NP PCP - Backup PCP Internal Medicine 01/11/16 02/02/17 Unknown Pcp, Non [facility] PCP - General 02/03/17 documented as of this encounter
--- OUTSIDE RECORDS SUMMARY | 2024-07-10 12:05 | XMS_ITS | Encounter Summary ---
Author Organization [facility] Address [address] [place] [address] Care Team Providers Care Criminal Intelligence Specialist Name Role Phone Bijal Fox GAS REGULATOR REPAIRER Primary Care Provider [phone] Reason for Visit * Reason Comments SOB * Auth/Cert (Routine) Specialty Diagnoses / Procedures Referred By Contac t Referred To Contact Diagnoses Pneumonia due to organism Referral ID Status Reason Start Date Expiration Date Visits Re quested Visits Authorized [id number] [phone] Encounter Details Date Type Department Care Team (Latest Contact Info) Description 06/15/2024 7:35 PM EST - 06/26/2024 6:09 PM [facility] Hospital Encounter [address] [address] Kevin Newsome MD [address] [place] [id number] Mj Mendenhall MD [address] [place] [id number] Discharge Disposition: Home with Services (06) Social History Tobacco Use Types Packs/Day Years Used Date Smoking Tobacco: Former Smokeless Tobacco: Never Comments:: Alcohol Use Standard Drinks/Week Comments Not Currently 0 (1 standard drink = 0.6 oz pur e alcohol) [facility] Utilities Answer Date Recorded In the [...] original note were not included. DISCHARGE SUMMARY [facility] DISCHARGE INFORMATION: Date and Time of Admission: [...] ON DISCHARGE: Attending Provider: Mj Mendenhall MD [phone] FOLLOW-UPS AND SCHEDULED APPOINTMENTS: No future appointments. CONTACT INFORMATION FOR FOLLOW-UP [facility] Specialty: Home Health Services [address] [facility] [address] Next Steps: Follow up [facility] [address] [facility] [address] Next Steps: Follow up Instructions: Have gone for auth. John Hendricks MD Specialty: Nephrology [address] [place] [address] [address] [facility] [address] Next Steps: Schedule an appointment as soon as possible for a visit Instructions: Hyperkalemia, CKD Pipo Crystal MD Specialty: Internal Medicine, Pulmonary Disease [address] [place] [phone] Next Steps: Schedule an appointment as soon as possible for a visit Stephanie Hampton MD Specialty: Cardiology [address] [place] [address] [address] [address] Next Steps: Schedule an appointment as soon [...] cream Commonly known as: KENALOG ALLERGIES: Neosporin (wdo-bpirf-dvfgyuvh) [fpqbogfl-fmekmwvde-ejfqeqyrhk], Prevacid [lansoprazole], and Odaaljh-wci-rsc reductase inhibitors IMMUNIZATION HISTORY: Most Recent Immunizations [...] HISTORY: Past Surgical History: Procedure Laterality Date TX ARTHROCENTESIS ASPIR&/INJ MAJOR JT/BURSA W/O US Right History of Arthrocentesis Injection Of Hip Joint Right hip steroid injection TX ARTHROCENTESIS ASPIR&/INJ MAJOR JT/BURSA W/O US Right History of Arthrocentesis Injection Of Hip Joint Right RIGHT HIP INJECTION WITH STEROID TX ARTHROCENTESIS ASPIR&/INJ MAJOR JT/BURSA W/O US Right History of Arthrocentesis Injection Of Hip Joint Right RIGHT HIP INJECTION TX ARTHROCENTESIS ASPIR&/INJ MAJOR JT/BURSA W/O US Right History of Arthrocentesis Injection Of Hip Joint Right RIGHT HIP CORTISONE INJECTION TX KNEE SCOPE,DIAGNOSTIC N/A History of Arthroscopy Knee TX ALVES W/O FACETEC FORAMOT/[facility]KC 05/23 VRT SEG, CERVICAL N/A History of Laminectomy Lumbar TX LAP,CHOLECYSTECTOMY N/A History of Cholecystectomy Laparoscopic PROCEDURE [...] to obtain the completed interpretation. Workstation ID: [id number] [facility] PLAN OF CARE CONSULTS: IP CONSULT TO PULMONOLOGY IP CONSULT TO IV THERAPY NURSE IP CONSULT TO CARDIOLOGY IP CONSULT TO IV THERAPY NURSE IP CONSULT TO RESPIRATORY CARE IP CONSULT TO IV THERAPY NURSE CONDITION: Good ADVANCED CARE PLANNING Code Status: Full Code Medical Decision Maker: Patient I anticipate that this patient's expected length of stay in a half-way facility will be lessthan 30 days. I [...] BY WASHING HANDS WHEN HOME, USING HAND ENGINEERING LABORATORY TECHNICIAN WHEN OUT IN THE COMMUNITY, AVOIDCONTACT WITH [...] Active Problems: Lumbar canal stenosis A-fib (CMS/HCC) ([facility]) Hypothyroidism Chronic obstructive pulmonary disease with acute exacerbation ([facility]) Severe asthma with exacerbation Acute respiratory failure with hypoxia ([facility]) Diastolic CHF, acute (CMS/HCC) ([facility]) Elevated serum creatinine Constipation Hyperkalemia * Pneumonia [...] IV Lasix stopped. Diastolic CHF, acute (CMS/HCC) ([facility]) Assessment & Plan CHF diastolic component: She [...] to 2459 Acute respiratory failure with hypoxia ([facility]) Assessment & Plan Acute Resp Failure: Evidenced on admission by SpO2 88% requiring 3-4L GAS REGULATOR REPAIRER. Tachypnea with RR increased to 22 RPM. [...] 112 mcg daily. TSH WNL A-fib (CMS/HCC) ([facility]) Assessment & Plan A-Fib: Secondary hypercoagulable state [...] Active Problems: Lumbar canal stenosis A-fib (CMS/HCC) ([facility]) Hypothyroidism Chronic obstructive pulmonary disease with acute [...] IV Lasix stopped. Diastolic CHF, acute (CMS/HCC) ([facility]) Assessment & Plan CHF diastolic component: She [...] to 2459 Acute respiratory failure with hypoxia ([facility]) Assessment & Plan Acute Resp Failure: Evidenced on admission by SpO2 88% requiring 3-4L GAS REGULATOR REPAIRER. Tachypnea with RR increased to 22 RPM. She is not home-O2 dependent. -Wean supplemental O2 as tolerated, presently weaned to 2L GAS REGULATOR REPAIRER -Taper steroids -Continue supportive therapy with nebulized [...] organism Active Problems: Lumbar canal stenosis A-fib ([facility]) ([facility]) Hypothyroidism Chronic obstructive pulmonary disease with acute exacerbation ([facility]) Severe asthma with exacerbation Acute respiratory failure with hypoxia ([facility]) Diastolic CHF, acute ([facility]) ([facility]) Elevated serum creatinine Constipation * Pneumonia due [...] after IV Lasix stopped. Diastolic CHF, acute ([facility]) ([facility]) Assessment & Plan CHF diastolic component: She [...] to 2459 Acute respiratory failure with hypoxia ([facility]) Assessment & Plan Acute Resp Failure: Evidenced on admission by SpO2 88% requiring 3-4L GAS REGULATOR REPAIRER. Tachypnea with RR increased to 22 RPM. She is not home-O2 dependent. Presently weaned to 2L GAS REGULATOR REPAIRER, but still coarse with rhonchus cough. Reduced [...] 112 mcg daily. TSH WNL A-fib (CMS/HCC) ([facility]) Assessment & Plan A-Fib: HR controlled on [...] Active Problems: Lumbar canal stenosis A-fib (CMS/HCC) ([facility]) Hypothyroidism Chronic obstructive pulmonary disease with acute exacerbation (HCC) Severe asthma with exacerbation Acute respiratory failure with hypoxia ([facility]) Diastolic CHF, acute (CMS/HCC) ([facility]) Elevated serum creatinine Constipation * Pneumonia due [...] after IV Lasix stopped. Diastolic CHF, acute ([facility]/HCC) ([facility]) Assessment & Plan CHF diastolic component: She [...] to 2459 Acute respiratory failure with hypoxia ([facility]) Assessment & Plan Acute Resp Failure: Evidenced on admission by SpO2 88% requiring 3-4L GAS REGULATOR REPAIRER. Tachypnea with RR increased to 22 RPM. She is not home-O2 dependent. Presently weaned to 2L GAS REGULATOR REPAIRER, but still coarse with rhonchus cough. Reduced IV steroids as no wheezing on exam and she appears tearful and depressed. Continue supportive therapy with nebulized bronchodilators, ICS and multiple antitussives. Avoid increasing Tramadol in setting of COPD/asthma. Severe asthma with exacerbation Assessment & Plan PMH significant for asthma. Therapy as above. Chronic obstructive pulmonary disease with acute exacerbation ([facility]) Assessment & Plan No formal diagnosis of COPD, but she was a former smoker. Plan for home nebulizer at discharge. Hypothyroidism Assessment & Plan Continue with Levothyroxine 112 mcg daily. TSH WNL A-fib ([facility]/HCC) ([facility]) Assessment & Plan A-Fib: HR controlled on [...] to obtain the completed interpretation. Workstation ID: [id number] ECG 12 lead Result Date: 06/16/2024 All Results Sinus rhythm with 1st degree AV block Confirmed by Rosi Garcia ([id number]) on 06/16/2024 10:55:[address] Chest PE [...] to obtain the completed interpretation. Workstation ID: [id number] Up-to-date CT equipment and radiation dose reduction [...] to obtain the completed interpretation. Workstation ID: [id number] I have personally reviewed the patient's imaging [...] azithromycin Supportive care Diastolic CHF, acute (CMS/HCC) ([facility]) Assessment & Plan Patient developed increased requirement [...] Chronic obstructive pulmonary disease/asthma with acute exacerbation ([facility]) Assessment & Plan Patient reports history of [...] machine was ordered by respiratory therapy Hypoxia ([facility]) Assessment & Plan Patient does not use [...] levothyroxine 112 mcg daily. TSH WNL A-fib (CMS/[facility]) ([facility]) Assessment & Plan Continue with diltiazem CD, [...] CARDIOLOGY INPATIENT FOLLOW UP Genie Vora 1950 [id number] 06/21/24 Reason for cardiology consult: HFpEF Subjective [...] nursing teaching prior to discharge. Allergies Neosporin (Ycj-Csfel-Pxhhntkd) [Lctxeirb-Uuxoxoglc-Vvbfdvnonh] Prevacid [Lansoprazole] Miympou-Fly-Lko Reductase Inhibitors Medications Current Medications (Taking) as [...] possible toobtain the completed interpretation. Workstation ID: [id number] Prior Echo Procedures Transthoracic echo (TTE) Exam [...] Please excuse grammatical errors. * Tia Oh, GAS REGULATOR REPAIRER - 06/20/2024 12:57 PM EST PROGRESS NOTE [...] MEDICATIONS: Scheduled Meds:apixaban, 5 mg, oral, q12h RADNI budesonide nebulizer, 1 mg, inhalation, q12h RANDI [...] Active Problems: Lumbar canal stenosis A-fib (CMS/HCC) ([facility]) Hypothyroidism Chronic obstructive pulmonary disease with acute exacerbation (HCC) Severe asthma with exacerbation Acute respiratory failure with hypoxia ([facility]) Diastolic CHF, acute (CMS/HCC) ([facility]) Elevated serum creatinine * Pneumonia due to [...] tomorrow. Repeat BMP Diastolic CHF, acute (CMS/HCC) ([facility]) Assessment & Plan Patient developed increased requirement [...] to 2459 Acute respiratory failure with hypoxia ([facility]) Assessment & Plan Patient does not use [...] Chronic obstructive pulmonary disease with acute exacerbation ([facility]) Assessment & Plan Patient was a former [...] Active Problems: Lumbar canal stenosis A-fib (CMS/HCC) ([facility]) Hypothyroidism Chronic obstructive pulmonary disease with acute exacerbation ([facility]) Severe asthma with exacerbation Acute respiratory failure with hypoxia ([facility]) Diastolic CHF, acute (CMS/HCC) ([facility]) * Pneumonia due to organism Assessment & [...] Will check BNP. Diastolic CHF, acute (CMS/HCC) ([facility]) Assessment & Plan Patient developed increased requirement [...] Cardiology consult Acute respiratory failure with hypoxia ([facility]) Assessment & Plan Patient does not use [...] Active Problems: Lumbar canal stenosis A-fib (CMS/HCC) ([facility]) Hypothyroidism Chronic obstructive pulmonary disease with acute exacerbation ([facility]) Severe asthma with exacerbation Acute respiratory failure with hypoxia ([facility]) * Pneumonia due to organism Assessment & [...] check BNP. Acute respiratory failure with hypoxia ([facility]) Assessment & Plan Patient does not use home O2. On admission patient was saturating 88% and required 3 to 4 L of O2. She was also tachypneic up to 22 respiration per minute. Today patient is using 3 L of O2 and saturating 92%. Chronic obstructive pulmonary disease with acute exacerbation ([facility]) Assessment & Plan Patient was a former [...] Active Problems: Lumbar canal stenosis A-fib (CMS/HCC) ([facility]) HLD (hyperlipidemia) Hypothyroidism Chronic obstructive pulmonary disease with acute exacerbation ([facility]) * Pneumonia due to organism Assessment & Plan CT chest shows no evidence of PE. Left bibasilar consolidation along with left lower lobe nodules. This could relate to pneumonia and/or aspiration. Will continue with IV Rocephin and Zithromax. Get blood cultures today. Chronic obstructive pulmonary disease with acute exacerbation ([facility]) Assessment & Plan Patient was a former smoker. No formal diagnosis of COPD. Lungs with bilateral wheezes and rhonchi. Will add scheduled DuoNeb, and Pulmicort. Patient does not use home O2. Currently saturating 97% on 2 L of O2. Will add antitussives. Give IV magnesium x 1. Hypothyroidism Assessment & Plan Continue with levothyroxine 112 mcg daily. HLD (hyperlipidemia) Assessment & Plan A-fib (CMS/[facility]) ([facility]) Assessment & Plan Continue with carb, flecainide [...] 975 mg (975 mg oral Given 06/15/24 1372) iohexoL (OMNIPAQUE) 350 mg iodine/mL contrast 80 mL (80 mL intravenous Given 06/15/24 7779) cefepime (MAXIPIME) 2 g in 0.9% NaCl [...] HISTORY: Past Surgical History: Procedure Laterality Date TX ARTHROCENTESIS ASPIR&/INJ MAJOR JT/BURSA W/O US Right History of Arthrocentesis Injection Of Hip Joint Right hip steroid injection TX ARTHROCENTESIS ASPIR&/INJ MAJOR JT/BURSA W/O US Right History of Arthrocentesis Injection Of Hip Joint Right RIGHT HIP INJECTION WITH STEROID TX ARTHROCENTESIS ASPIR&/INJ MAJOR JT/BURSA W/O US Right History of Arthrocentesis Injection Of Hip Joint Right RIGHT HIP INJECTION TX ARTHROCENTESIS ASPIR&/INJ MAJOR JT/BURSA W/O US Right History of Arthrocentesis Injection Of Hip Joint Right RIGHT HIP CORTISONE INJECTION TX KNEE SCOPE,DIAGNOSTIC N/A History of Arthroscopy Knee TX ALVES W/O FACETEC FORAMOT/DSKC 05/23 VRT SEG, CERVICAL N/A History of Laminectomy Lumbar TX LAP,CHOLECYSTECTOMY N/A History of Cholecystectomy Laparoscopic PROCEDURE [...] irritation or rash. Unknown Provider, ALLERGIES: Neosporin (zxv-zuwip-xpnsgqcn) [adjolyoj-hyyineycz-exfxqgzjth], Prevacid [lansoprazole], and Scbrmya-cum-rqb reductase inhibitors SOCIAL HISTORY: Social History Tobacco [...] Value - Date/Time Respiratory Culture w/Gram Stain [[id number]] Lab Status: No result Specimen: Expectorated Sputum Blood Culture [[id number]] Collected: 06/15/242216 Lab Status: In process Specimen: Blood from Venous, Peripheral Updated: 06/15/242238 Blood Culture [[id number]] Collected: 06/15/242216 Lab Status: In process Specimen: [...] to obtain the completed interpretation. Workstation ID: [id number] Assessment & Plan 73-year-old female with a [...] Consults CARDIOLOGY INPATIENT CONSULT Genie Vora 1950 [id number] 06/20/24 REASON FOR CONSULT: Acute HFpEF History [...] Other Family History of depression Allergies Neosporin (Lbd-Khbkc-Yunytxnk) [Peypdwmk-Nwmwdofba-Emmnlntioh] Prevacid [Lansoprazole] Keedfhx-Xue-Rdh Reductase Inhibitors Medications Current Medications (Taking) as [...] possible toobtain the completed interpretation. Workstation ID: [id number] Prior Echo Procedures Transthoracic echo (TTE) Exam [...] 2.5 mg, inhalation, q4h PRN, Tia Oh, GAS REGULATOR REPAIRER apixaban (ELIQUIS) tablet 5 mg, 5 mg, [...] 1 mg, inhalation, q12h RANDI, Tia Oh, GAS REGULATOR REPAIRER, 1mg at 06/17/24 0945 busPIRone (BUSPAR) tablet 7.5 mg, 7.5 mg, oral, BID, Mj Mendenhall MD, 7.5 mg at 06/17/24 08 cefTRIAXone (ROCEPHIN) injection 1 g, 1 g, intravenous, q24h RANDI, Mj Mendenhall MD, 1 g at 06/17/24851 codeine-guaiFENesin (CHERATUSSIN AC) 20-200 mg/10 mL liquid 10 mg of codeine, 5 mL, oral, q4h PRN, Tia Oh, GAS REGULATOR REPAIRER, 10 mg of codeine at 06/17/24 1145 [...] 600 mg, oral, q12h RANDI, Tia Oh, GAS REGULATOR REPAIRER, 600 mg at 06/17/24 0945 ipratropium-albuteroL (DUO-NEB) 0.5-2.5 mg/3 mL nebulizer solution 3 mL, 3 mL, inhalation, q4h PRN,Romaine Manuel MD, 3 mL at 06/17/24 0918 ipratropium-albuteroL (DUO-NEB) 0.5-2.5 mg/3 mL nebulizer solution 3 mL, 3 mL, inhalation, q4h RANDI,Rosanna Marie, GAS REGULATOR REPAIRER, 3 mL at 06/17/24 1302 levothyroxine (SYNTHROID, [...] 3:51 PM EST This Chronic Disease Nurse Explosive Operator reviewed this patient's EMR. She is being discharged home with [facility] today. This screenplay writer called the PCP office, they are closed today, this screenplay writer left a M asking them to call the patient directly to schedule a post-hospital f/up appointment. This screenplay writer scheduled a TCM for 07/03/24 at 2:30pm with Cardiology in [place]. This screenplay writer added both to the AVS and also added a note to ask the PCP to place a referral to Pulmonology once seen. A secure chat wassent to the nurses asking them to review the above with the patient at discharge. 1602 This screenplay writer placed a message into [facility]port to [facility] asking their nurses to continue to provide both CHF and COPD education with this patient after DC. Both diagnoses are new to 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 * Plan of Care - Jose Elena - 06/26/2024 12:20 PM EST Discharge IM : Important Message from Medicare, [facility]-[id number] (08/02/19) OMB Approval No.: [phone] (Expires [...] hospitalist. RNCM sent msg via [facility]port to [facility] letting them know that pt not ready for dc today but willlikely be ready for dc tomorrow. Rec'd reply that they have gone for auth. [phone] Pt requested to speak with RNCM. RNCM [...] out of the office tomorrow. Will ask bottle caser to follow up with [facility] in the morning. Pertinent Clinical impacting hospitalization, level of care update, if indicated Pt reports no BM x 10 days. Sodium 135, BUN 34, creat 1.18, WBC 14.6. Pt given enema today. Discharge Planning: [facility] has gone for auth. [id number] [...] Intervention 2 weeks OT Anticipated Discharge Disposition half-way facility Row Name 06/24/24 1350 Clinical Impression [...] CGA, with narrowBOS, and requiring VCs to rock picker feet when ambulating. Pt donned pants seated EOB with set up assistance, requiring assistance to manage air sampling and monitoring wiring. Pt completed toileting routine inclduing clothing [...] degeneration Weakness Hypoxia Generalized weakness A-fib (CMS/HCC) ([facility]) Anxiety Primary hypertension Hypothyroidism Pneumonia due to organism Chronic obstructive pulmonary disease with acute exacerbation (HCC) Severe asthma with exacerbation Acute respiratory failure with hypoxia ([facility]) Diastolic CHF, acute (CMS/HCC) ([facility]) Elevated serum creatinine Constipation Hyperkalemia Past Medical History: Diagnosis Date Arthritis Posterior tibial tendinitis History of Posterior tibial tendinitis 2014-09-02 Radial styloid tenosynovitis History of De Quervain's tenosynovitis 2011-07-29 Past Surgical History: Procedure Laterality Date TX ARTHROCENTESIS ASPIR&/INJ MAJOR JT/BURSA W/O US Right History of Arthrocentesis Injection Of Hip Joint Right hip steroid injection TX ARTHROCENTESIS ASPIR&/INJ MAJOR JT/BURSA W/O US Right History of Arthrocentesis Injection Of Hip Joint Right RIGHT HIP INJECTION WITH STEROID TX ARTHROCENTESIS ASPIR&/INJ MAJOR JT/BURSA W/O US Right History of Arthrocentesis Injection Of Hip Joint Right RIGHT HIP INJECTION TX ARTHROCENTESIS ASPIR&/INJ MAJOR JT/BURSA W/O US Right History of Arthrocentesis Injection Of Hip Joint Right RIGHT HIP CORTISONE INJECTION TX KNEE SCOPE,DIAGNOSTIC N/A History of Arthroscopy Knee TX ALVES W/O FACETEC FORAMOT/DSKC 05/23 VRT SEG, CERVICAL N/A History of Laminectomy Lumbar TX LAP,CHOLECYSTECTOMY N/A History of Cholecystectomy Laparoscopic PROCEDURE [...] therapy. Precautions/Restrictions fall Row Name 06/24/24 1352 Electric Deicer Inspector Services Electric Deicer Inspector Needed No Row Name 06/24/24 1352 Living [...] Hearing Hearing Status WFL Row Name 06/24/24 [facility] Vision Assessment/Intervention Visual Impairment/Limitations corrective lenses time stamp assembler [facility] Name 06/24/24 1352 Cognitive Assessment/Intervention Orientation Status (Cognitive) oriented x [address] [facility] 06/24/24 [facility] Pain Scale Pain Scale Pain Scale: Numbers Pre/Post-Treatment (Group) [facility] 06/24/24 [facility] Pain Scale: Numbers Treatment Pain Location - Orientation (Numbers Scale) lower Pain Location - Body (Numbers Scale) back Pain: Comment (Numbers Scale) Pt reports 5/[address] [facility] 06/24/24 1352 General UE Assessment Upper Extremity: Range of Motion LUE ROM was WFL;RUE ROM was WFL Upper Extremity: Range of Motion Detail Jose UE smeller strength: 4/5 [facility] 06/24/24 [facility] Sensory Assessment (Somatosensory) Sensory Assessment (Somatosensory) sensation intact;bilateral UE Bilateral UE Sensory Assessment light touch awareness Comment, Sensory Assessment Pt reports numbness in fingers, noticing difficulty with fine motor tasks (pt gave example of handwriting getting worse) after long perioids of time/ use [facility] 06/24/24 [facility] Motor Coordination Assessment/Training Hand Dominance right Left Opposition intact Right Opposition intact [facility] 06/24/24 [facility] Bed Mobility Assessment/Treatment Fpgmdx-ca-Qdt [place] (Bed Mobility) contact guard assist Nme-so-Kgocnx [place] (Bed Mobility) contact guard assist [facility] 06/24/24 [facility] Transfer Assessment/Treatment Sit-Stand [place] level (Transfers) contact guard assist Stand-Sit [place] level(Transfers) contact guard assist Nsg-Kpsao-Xeh Assistive Device (Transfers) walker, rolling [facility] 06/24/24 [facility] Gait Assessment/Treatment [place] (Gait) contact guard assist Assistive Device (Gait) walker, rolling Distance in Feet (Gait) 70 Comment (Gait) Pt noted with narrow ROB, rquiring cues to rock picker feet during ambulation [facility] Name 06/24/24 [facility] Lower Body Dressing Assessment/Training Comment (LB Dressing) Pt donned pants seated EOB with set up assistance, requiring assistance to manage air sampling and monitoring wiring. [facility] 06/24/24 [facility] Toileting Assessment/Training [place] Level (Toileting) supervision required Impairments (Toileting) strength decreased [facility] 06/24/24 [facility] Clinical Impression Rehab Potential good, to achieve stated therapy goals Therapy Frequency 3 times/wk OT Predicted Duration of Therapy Intervention 2 weeks OT Anticipated Discharge Disposition half-way facility Row Name 06/24/24 1352 Planned Therapy Interventions Planned Therapy Interventions ADL retraining;energy conservation education;strengthening;stretching;transfer training Row Name 06/24/24 1352 Rehab Eval/Treat-Additional Details Document Type Initial Evaluation OT Date of Initial Eval/Re-Eval 06/24/24 Patient Effort good OT Goal Summary (all recorded) OT Goal Summary Row Name 06/24/24 [facility] Occupational Therapy Goals Bed Mobility Goal Selection (OT) bed mobility, OT goal 1 Transfer Goal Selection (OT) transfer, OT goal 1 Grooming Goal Selection (OT) grooming, OT goal 1 Toileting Goal Selection (OT) toileting, OT goal 1 Row Name 06/24/24 [facility] Bed Mobility Goal 1 (OT) Activity (Bed Mobility Goal 1, OT) sit to supine/supine to sit [place] Level (Bed Mobility Goal 1, OT) modified independence Time Frame (Bed Mobility Goal 1, OT) 1 week Row Name 06/24/24 [facility] Transfer Goal 1 (OT) Activity (Transfer Goal 1, OT) [id number]-gf-jilsd/mvgjq-fi-eqf [place] Level (Transfer Goal 1, OT) supervision required Assitive Devices (Transfer Goal 1, OT) walker, rolling Time Frame (Transfer Goal 1, OT) 1 week Row Name 06/24/24 [facility] Grooming Goal 1 (OT) Activity (Grooming Goal 1, OT) hair care;oral care;wash face, hands [place] Level (Grooming Goal 1, OT) supervision required standing at sink >5 min Time Frame (Grooming Goal 1, OT) 1 week Row Name 06/24/24 [facility] Toileting Goal 1 (OT) Activity (Toileting Goal 1, OT) toileting skills, all [place] Level (Toileting Goal 1, OT) independent Time Frame (Toileting Goal 1, OT) 1 week Row Name 06/24/24 1352 Pain Goal (OT) Pain Score (Pain Score, OT) 2 Activity (Pain Goal, OT) during all tasks in daily routine Time Frame (Pain Goal, OT) 1 week Adina Cage OT Licensure: [place], [place]: [id number] * Plan of Care - Elise Mills [...] PT Plan and Recommendation Row Name 06/24/24 0520 Clinical Impression Diagnosis decline in function due to pneumonia Patient/Family Goals Statement To be able to walk Criteria for Skilled Therapeutic Interventions Met yes;treatment indicated Impairments Found (describe specific impairments) aerobic capacity/endurance;gait, locomotion, and balance Rehab Potential good, to achieve stated therapy goals Therapy Frequency 3 times/wk PT Predicted Duration of Therapy Intervention by discharge PT Anticipated Discharge Disposition half-way facility Physical therapy evaluation level based on elements of the patient???s history, examination of bodysystems, clinical presentation, and complexity of clinical decision making, as documented in the EMR, in accordance with [facility] CPT code standards. Level of complexity of [...] degeneration Weakness Hypoxia Generalized weakness A-fib (CMS/HCC) ([facility]) Anxiety Primary hypertension Hypothyroidism Pneumonia due to organism Chronic obstructive pulmonary disease with acute exacerbation (HCC) Severe asthma with exacerbation Acute respiratory failure with hypoxia ([facility]) Diastolic CHF, acute (CMS/[facility]) ([facility]) Elevated serum creatinine Constipation Hyperkalemia Past Medical History: Diagnosis Date Arthritis Posterior tibial tendinitis History of Posterior tibial tendinitis 2014-09-02 Radial styloid tenosynovitis History of De Quervain's tenosynovitis 2011-07-29 Past Surgical History: Procedure Laterality Date TX ARTHROCENTESIS ASPIR&/INJ MAJOR JT/BURSA W/O US Right History of Arthrocentesis Injection Of Hip Joint Right hip steroid injection TX ARTHROCENTESIS ASPIR&/INJ MAJOR JT/BURSA W/O US Right History of Arthrocentesis Injection Of Hip Joint Right RIGHT HIP INJECTION WITH STEROID TX ARTHROCENTESIS ASPIR&/INJ MAJOR JT/BURSA W/O US Right History of Arthrocentesis Injection Of Hip Joint Right RIGHT HIP INJECTION TX ARTHROCENTESIS ASPIR&/INJ MAJOR JT/BURSA W/O US Right History of Arthrocentesis Injection Of Hip Joint Right RIGHT HIP CORTISONE INJECTION TX KNEE SCOPE,DIAGNOSTIC N/A History of Arthroscopy Knee TX ALVES W/O FACETEC FORAMOT/DSKC 1/ VRT SEG, CERVICAL N/A History of Laminectomy Lumbar TX LAP,CHOLECYSTECTOMY N/A History of Cholecystectomy Laparoscopic PROCEDURE [...] Row Name 06/24/24 1350 Bed Mobility Assessment/Treatment Uxxhgr-px-Amv [place] (Bed Mobility) contact guard assist Vkl-wq-Azppdk [place] (Bed Mobility) contact guard assist Default Flowsheet Data (Last 12 Hours) Adult PT Focused Evaluation/Treatment Row Name 06/24/24 1350 Transfer Assessment/Treatment Sit-Stand [place] level (Transfers) contact guard assist Stand-Sit [place] level(Transfers) contact guard assist Fuy-Sknfm-Zsc Assistive Device (Transfers) walker, rolling Row Name 06/24/24 1350 Gait Assessment/Treatment [place] (Gait) contact guard assist Assistive Device (Gait) [...] Intervention by discharge PT Anticipated Discharge Disposition half-way facility Row Name 06/24/24 1350 Planned Therapy [...] 1, PT) sit to supine;supine to sit [place] Level/Cues Needed (Bed Mobility Goal 1, PT) independent Assitive Devices (Bed Mobility Goal 1, PT) none Time Frame (Bed Mobility Goal 1, PT) by discharge Row Name 06/24/24 1418 Transfer Goal 1 (PT) Activity (Transfer Goal 1, PT) ibl-pd-ueszi/drscy-fz-mvb [place] Level/Cues Needed (Transfer Goal 1, PT) modified independence Assitive Devices (Transfer Goal 1, PT) walker, rolling Time Frame (Transfer Goal 1, PT) by discharge Temi Santos, PT Licensure: [place], [place]: [address] * Plan of Care - Magui Gee RN - 06/24/2024 1:58 PM EST Case Management Continued Stay Review Pertinent Clinical impacting hospitalization, level of care update, if indicated: 1530 [facility] offered bed, requesting auth, [facility], CMRN inquired to histology teacher a [facility], patient is slated to admit to private room. Receiving nebs and iv abx. PT/OT eval completed, met with therapists, rec for STR, CMRN met with patient, agreeable to STR if able to admit to a quality facility that will provide effective care. Referral to [facility] - not contracted [facility] - interested, pending official bed offer - 1st choice [facility] - bed offer [facility] - pending QOTC - bed offer Recent STR admission, declines to return to previous facility. Discharge Planning Discharge Barrier: not medically ready Discharge Plan: [facility] - pending auth Choice list (with star [...] Associated Problem(s): Acute respiratory failure with hypoxia ([facility]) Acute Resp Failure: Evidenced on admission by SpO2 88% requiring 3-4L GAS REGULATOR REPAIRER. Tachypnea with RR increased to 22 RPM. She is not home-O2 dependent. -Wean supplemental O2 as tolerated, presently om room air -Taper steroids -Continue supportive therapy with nebulized bronchodilators, ICS and multiple antitussives. -Avoid increasing Tramadol in setting of COPD/asthma. * Assessment & Plan Note - Olivia Arteaga NP - 06/24/2024 1:40 PM EST Associated Problem(s): A-fib (CMS/HCC) ([facility]) A-Fib: Secondary hypercoagulable state due to arrhythmia. [...] on admission by SpO2 88% requiring 3-4L GAS REGULATOR REPAIRER. Tachypnea with RR increased to 22 RPM. She is not home-O2 dependent. Presently weaned to 2L GAS REGULATOR REPAIRER, but still coarse with rhonchus cough. Reduced IV steroids as no wheezing on exam and she appears tearful and depressed. Continue supportive therapy with nebulized bronchodilators, ICS and multiple antitussives. Avoid increasing Tramadol in setting of COPD/asthma. * Assessment & Plan Note - Sydney David NP - 06/23/2024 4:17 PM EST Associated Problem(s): A-fib (CMS/HCC) ([facility]) A-Fib: HR controlled on Flecainide. Secondary hypercoagulable [...] on admission by SpO2 88% requiring 3-4L GAS REGULATOR REPAIRER. Tachypnea with RR increased to 22 RPM. She is not home-O2 dependent. Presently weaned to 2L GAS REGULATOR REPAIRER, but still coarse with rhonchus cough. Reduced [...] to obtain the completed interpretation. Workstation ID: [id number] ECG 12 lead Result Date: 06/16/2024 All Results Sinus rhythm with 1st degree AV block Confirmed by Rosi Garcia ([id number]) on 06/16/2024 10:55:[address] Chest PE [...] to obtain the completed interpretation. Workstation ID: [id number] Up-to-date CT equipment and radiation dose reduction [...] to obtain the completed interpretation. Workstation ID: [id number] I have personally reviewed the patient's imaging results. * Plan of Care - Zaiar Lugo RN - 06/21/2024 2:31 PM EST [...] 2011-07-29 Past Surgical History: Procedure Laterality Date TX ARTHROCENTESIS ASPIR&/INJ MAJOR JT/BURSA W/O US Right History of Arthrocentesis Injection Of Hip Joint Right hip steroid injection TX ARTHROCENTESIS ASPIR&/INJ MAJOR JT/BURSA W/O US Right History of Arthrocentesis Injection Of Hip Joint Right RIGHT HIP INJECTION WITH STEROID TX ARTHROCENTESIS ASPIR&/INJ MAJOR JT/BURSA W/O US Right History of Arthrocentesis Injection Of Hip Joint Right RIGHT HIP INJECTION TX ARTHROCENTESIS ASPIR&/INJ MAJOR JT/BURSA W/O US Right History of Arthrocentesis Injection Of Hip Joint Right RIGHT HIP CORTISONE INJECTION TX KNEE SCOPE,DIAGNOSTIC N/A History of Arthroscopy Knee TX ALVES W/O FACETEC FORAMOT/DSKC 05/23 VRT SEG, CERVICAL N/A History of Laminectomy Lumbar TX LAP,CHOLECYSTECTOMY N/A History of Cholecystectomy Laparoscopic PROCEDURE [...] Skin: WDL Edema: 1+ MST Score= 0 Cultural/hindu/ethnic preferences addressed as able. Nutrition Diagnosis: Impaired Nutrient Utilization related to Cardiac Dysfunction as evidenced by Clinical Notes. Status: new Goal 1: Adequate oral intake of at least 75% meals upon follow-up. Status: New BMI (Calculated): 42.95 BMI Assessment: BMI greater than 40: obesity grade III Weight Used For Calculations: 60 kg (132 lb 4.4 oz) Estimated Needs: Energy Calorie Requirements: 2410-9471 pam (25-30 pam/kg) Protein (gms/day): 60 g (1.0 g/kg) Fluid Requirements: 9935-8457 ml (25-30 ml/kg) Monitor/Evaluation: Food Intake: meet nutrition needs via PO intake Electrolyte/Renal Profile: WNL Glucose/Endocrine Profile: WNL Gastrointestinal Profile: Bowel regularity. No N, V, diarrhea, constipation Weight: Stable Nutrition-Focused Physical Findings: monitor for changes in skin integrity See flowsheets for additional information. Alexa Silva, MS, RD, LDN Genie Vora : 1950 CSN: [id number] * Plan of Care - Humera Oropeza [...] 30 days? No PCP: Bijal Fox NP Building Maintenance Supervisor: None - this screenplay writer will ask the PCP to make a referral to Dr. Crystal after discharge. Earth Boring Machine Operator: None - this screenplay writer will make a TCM with Mabel at [facility]. The patient would like f/up withDr. Stephanie strickland. Active Services at Home: [facility] - SN/PT/OT - The patient was at [facility] from 06/04/24 - 06/13/24 Resources Given: [facility] COPD educational booklet, [facility] Heart Failure educational literature, the [facility] Heart Failure weight/blood pressure tracking booklet, the [facility] Heart Failure zone guidelines and this screenplay writer's business card. Equipment at Home: Oxygen - 2L - [employer]; pulse oximeter; B/P cuff; scale; CPAP; inhalers This screenplay writer sent a secure chat 06/20/24 at 12:27 to the Hospitalist notifying them she does not havea home nebulizer and to order one along with the medications at [facility]. Learners [x]Patient []Family []Significant Other []Caregiver []Other Readiness [x]Eager [x]Acceptance []Nonacceptance []Refuses []Other Method [x]Explanation [x]Demonstration [x]Handout []Electric Deicer Inspector []Video []Class/Group []Teach-back Response [x]Verbalizes Understanding []Demonstrated [...] washhands with soap and water often. Use postal sorting officer when out in the community. Influenza, COVID, [...] evidence of PE. This Chronic Disease Nurse Explosive Operator met with the patient at the bedside. Explained role. We discussed her new diagnoses of both CHF and COPD and reviewed the guidelines for both. 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, currently on tele with afib. Pulmonology [...] Chronic obstructive pulmonary disease with acute exacerbation ([facility]) Patient was a former smoker. No formal [...] with services. Provided her with resources for [facility] for homemaking and MOW. Demographics verified/Changes made: Confirmed. Active PCP/Recently seen: Yes. Medication issues: None. Transportation home: Son. Lives with: Alone. Home Type: Apartment. Current Services: [facility]. Oxygen at home: 2L O2, new. DME: Walker, care. Stairs outside: 12-optional. Stairs inside: 0 ADLs: Was independent. IADLs: Was independent-will need assist, provided her with information for [place]. HCP: Left at the bedside for patient [...] (interventions implemented as appropriate) Patient arrived from [facility] after 11pm. A/Ox4. VSS. Lung sounds [...] Info) Description 08/01/2024 2:00 PM EDT Follow-Up [facility] Nephrology 100 [facility] [address] [place] [address] John Hendricks MD [address] [place] [id number] 01/08/2025 10:00 AM EDT Follow-Up [address] Cardiology 100 [facility] [address] [place] [address] Mabel Onofre, MEY 100 [facility] [address] [place] [address] Scheduled Orders Name Type Priority Associated Diagnoses Orde r Schedule Respiratory Culture w/Gram Stain Microbiology Routine Once for 1 Occurrences starting 06/16/2024 until 06/16/2024 documented as of this encounter Procedures * Due to [place] state law, this organization might not be [...] this encounter Results * Due to [place] state law, this organization might not be [...] obtain the completed interpretation. ? Workstation ID: [id number] Narrative 06/26/2024 2:05 PM EST EXAMINATION: ??XR ABDOMEN 1 VW INDICATION: RLQ abdominal pain, constipation COMPARISONS: None Resulting Agency Comment [id number] Procedure Note Calvin Katz MD - 06/26/2024 [...] possible to obtain thecompleted interpretation. Workstation ID: [id number] us Tia Oh GAS REGULATOR REPAIRER IMG XR PROCEDURES Final Result * (ABNORMAL) CBC (06/26/2024 6:22 AM EST) WBC 15.0(H) 4.8 - 10.8 10*3/uL 06/26/2024 6:42 AM EST [facility] RBC 4.51 4.20 - 5.40 10*6/uL 06/26/2024 6:42 AM EST [facility] Hemoglobin 13.1 11.7 - 15.5 g/dL 06/26/2024 6:42 AM EST [facility] Hematocrit 40.5 35.7 - 45.8 % 06/26/2024 6:42 AM EST [facility] MCV 89.8 81.0 - 99.0 fL 06/26/2024 6:42 AM EST [facility] MCH 29.0 26.0 - 34.0 pg 06/26/2024 6:42 AM EST [facility] MCHC 32.3 31.0 - 36.0 g/dL 06/26/2024 6:42 AM EST [facility] RDW 13.2 12.0 - 15.0 % 06/26/2024 6:42 AM EST [facility] Platelets 220 140 - 440 10*3/uL 06/26/2024 6:42 AM EST [facility] MPV 9.4 9.4 - 12.3 fL 06/26/2024 6:42 AM [facility] RDW Standard Deviation 43.5 36.4 - 46.3 fL 06/26/2024 6:42 AM [facility] Blood Structure of peripheral vein / Unknown Venipuncture / Unknown 06/26/2024 6:22 AM EST 06/26/2024 6:39 AM EST Olivia Arteaga NP LAB BLOOD ORDERABLES Final Result [facility] [address] [place] [id number], * (ABNORMAL) Basic Metabolic Panel (06/26/2024 6:22 AM EST) NA 139 136 - 145 mmol/L 06/26/2024 7:31 AM EST [facility] K 5.4(H) 3.5 - 5.1 mmol/L 06/26/2024 7:31 AM EST [facility] Cl 101 98 - 109 mmol/L 06/26/2024 7:31 AM EST [facility] CO2 30 22 - 32 mmol/L 06/26/2024 7:31 AM EST [facility] BUN 33(H) 8 - 23 mg/dL 06/26/2024 7:31 AM EST [facility] Creatinine 1.24(H) 0.50 - 1.12 mg/dL 06/26/2024 7:31 AM EST [facility] Glucose 85 60 - 99 mg/dL 06/26/2024 7:31 AM EST [facility] Calcium 9.0 8.4 - 10.4 mg/dL 06/26/2024 7:31 AM EST [facility] Anion Gap 13 >=0 06/26/2024 7:31 AM EST [facility] eGFR 46(L) >=60 mL/min/1. 73m2 06/26/2024 7:31 AM EST [facility] Comment:The estimated glomer ular filtration [...] Arteaga NP LAB BLOOD ORDERABLES Final Result [facility] [address] [place] [address], [place] [phone] * (ABNORMAL) CBC (06/25/2024 7:04 AM EST) WBC 14.6(H) 4.8 - 10.8 10*3/uL 06/25/2024 7:32 AM EST [facility] RBC 4.09(L) 4.20 - 5.40 10*6/uL 06/25/2024 7:32 AM EST [facility] Hemoglobin 12.0 11.7 - 15.5 g/dL 06/25/2024 7:32 AM EST [facility] Hematocrit 36.0 35.7 - 45.8 % 06/25/2024 7:32 AM EST [facility] MCV 88.0 81.0 - 99.0 fL 06/25/2024 7:32 AM EST [facility] MCH 29.3 26.0 - 34.0 pg 06/25/2024 7:32 AM EST [facility] MCHC 33.3 31.0 - 36.0 g/dL 06/25/2024 7:32 AM EST [facility] RDW 13.2 12.0 - 15.0 % 06/25/2024 7:32 AM EST [facility] Platelets 205 140 - 440 10*3/uL 06/25/2024 7:32 AM EST [facility] MPV 9.6 9.4 - 12.3 fL 06/25/2024 7:32 AM EST [facility] RDW Standard Deviation 42.6 36.4 - 46.3 fL 06/25/2024 7:32 AM EST [facility] Blood Structure of peripheral vein / Unknown Venipuncture / Unknown 06/25/2024 7:04 AM EST 06/25/2024 7:28 AM EST us Olivia Arteaga NP LAB BLOOD ORDERABLES Final Result [facility] [address] [place] [address], [place] [phone] * (ABNORMAL) Basic Metabolic Panel (06/25/2024 7:04 AM EST) NA 135(L) 136 - 145 mmol/L 06/25/2024 8:00 AM EST [facility] K 5.1 3.5 - 5.1 mmol/L 06/25/2024 8:00 AM EST [facility] Cl 100 98 - 109 mmol/L 06/25/2024 8:00 AM EST [facility] CO2 28 22 - 32 mmol/L 06/25/2024 8:00 AM EST [facility] BUN 34(H) 8 - 23 mg/dL 06/25/2024 8:00 AM [facility] Creatinine 1.18(H) 0.50 - 1.12 mg/dL 06/25/2024 8:00 AM [facility] Glucose 86 60 - 99 mg/dL 06/25/2024 8:00 AM [facility] Calcium 8.7 8.4 - 10.4 mg/dL 06/25/2024 8:00 AM [facility] Anion Gap 12 >=0 06/25/2024 8:00 AM [facility] eGFR 49(L) >=60 mL/min/1. 73m2 06/25/2024 8:00 AM [facility] Comment:The estimated glomer ular filtration rate [...] EST 06/25/2024 7:32 AM EST Olivia Kincaidquez GAS REGULATOR REPAIRER LAB BLOOD ORDERABLES Final Result [facility] [address] [facility] [address] [place] [address], * (ABNORMAL) Basic metabolic panel (06/24/2024 12:58 PM EST) NA 134(L) 136 - 145 mmol/L 06/24/2024 1:53 PM EST [facility] K 5.3(H) 3.5 - 5.1 mmol/L 06/24/2024 1:53 PM EST [facility] Comment:ALL DELTAS REVIEWED Cl 100 98 - 109 mmol/L 06/24/2024 1:53 PM EST [facility] CO2 24 22 - 32 mmol/L 06/24/2024 1:53 PM EST [facility] BUN 37(H) 8 - 23 mg/dL 06/24/2024 1:53 PM EST [facility] Creatinine 1.17(H) 0.50 - 1.12 mg/dL 06/24/2024 1:53 PM EST [facility] Glucose 129(H) 60 - 99 mg/dL 06/24/2024 1:53 PM EST [facility] Calcium 9.1 8.4 - 10.4 mg/dL 06/24/2024 1:53 PM EST [facility] Anion Gap 15 >=0 06/24/2024 1:53 PM EST [facility] eGFR 50(L) >=60 mL/min/1. 73m2 06/24/2024 1:53 PM EST [facility] Comment:The estimated glomer ular filtration [...] BLOOD ORDERABLES Final Result Performing Organization Address City/[facility]/ZIP Co de Phone Number [facility] [address] [place] [address] [address] [place] [address], [place] [phone] * ECG 12 lead (06/24/2024 9:50 AM EST) Ventricular Rate EKG 73 BPM MUSE EKG Atrial Rate 73 BPM MUSE EKG TX Interval 228 ms MUSE EKG QRS Interval 128 ms MUSE EKG QT Interval 384 ms MUSE EKG QTC Interval 423 ms MUSE EKG P Casey 65 degrees MUSE EKG R Casey 41 degrees MUSE EKG T Wave Casey 61 degrees MUSE EKG 06/24/2024 9:50 AM EST 06/24/2024 5:36 PM EST Impressions MUSE EKG - 06/24/2024 5:36 PM EST Sinus rhythm with 1st degree AV block with occasional premature ventricular complexes Nonspecific intraventricular block When compared with ECG of 21-JUN-2024 07:26, No significant change was found Confirmed by Stephanie Hampton ([id number]) on 06/24/2024 5:36:28 PM Olivia Arteaga GAS REGULATOR REPAIRER ECG ORDERABLES Final Resul t Performing Organization Address City/[facility] Co de Phone Number MUSE EKG * (ABNORMAL) Basic metabolic panel (06/24/2024 7:27 AM EST) Pathologist [facility] NA 134(L) 136 - 145 mmol/L 06/24/2024 8:35 AM EST [facility] K 6.2(HH) 3.5 - 5.1 mmol/L 06/24/2024 8:35 AM EST [facility] Cl 100 98 - 109 mmol/L 06/24/2024 8:35 AM EST [facility] CO2 27 22 - 32 mmol/L 06/24/2024 8:35 AM EST [facility] BUN 37(H) 8 - 23 mg/dL 06/24/2024 8:35 AM EST [facility] Creatinine 1.23(H) 0.50 - 1.12 mg/dL 06/24/2024 8:35 AM EST [facility] Glucose 134(H) 60 - 99 mg/dL 06/24/2024 8:35 AM EST [facility] Calcium 8.7 8.4 - 10.4 mg/dL 06/24/2024 8:35 AM EST [facility] Anion Gap 13 >=0 06/24/2024 8:35 AM EST [facility] eGFR 47(L) >=60 mL/min/1. 73m2 06/24/2024 8:35 AM EST [facility] Comment:The estimated glomer ular filtration [...] David NP LAB BLOOD ORDERABLES Final Result [facility] [address] [facility] [address] [place] [address], * (ABNORMAL) CBC (06/24/2024 7:27 AM EST) WBC 15.1(H) 4.8 - 10.8 10*3/uL 06/24/2024 8:01 AM EST [facility] RBC 4.13(L) 4.20 - 5.40 10*6/uL 06/24/2024 8:01 AM EST [facility] Hemoglobin 12.2 11.7 - 15.5 g/dL 06/24/2024 8:01 AM EST [facility] Hematocrit 36.2 35.7 - 45.8 % 06/24/2024 8:01 AM EST [facility] MCV 87.7 81.0 - 99.0 fL 06/24/2024 8:01 AM EST [facility] MCH 29.5 26.0 - 34.0 pg 06/24/2024 8:01 AM EST [facility] MCHC 33.7 31.0 - 36.0 g/dL 06/24/2024 8:01 AM EST [facility] RDW 13.2 12.0 - 15.0 % 06/24/2024 8:01 AM EST [facility] Platelets 233 140 - 440 10*3/uL 06/24/2024 8:01 AM EST [facility] MPV 9.3(L) 9.4 - 12.3 fL 06/24/2024 8:01 AM [facility] RDW Standard Deviation 42.5 36.4 - 46.3 fL 06/24/2024 8:01 AM EST [facility] Blood Structure of peripheral vein / Unknown Venipuncture / Unknown 06/24/2024 7:27 AM EST 06/24/2024 7:56 AM EST Sydney David NP LAB BLOOD ORDERABLES Final Result [facility] [address] [facility] [address] [place] [address], [place] [phone] * (ABNORMAL) Potassium (06/23/2024 10:05 AM EST) K 5.6(H) 3.5 - 5.1 mmol/L 06/23/2024 10:58 AM EST [facility] Comment:REVIEWED Blood Structure of peripheral vein / Unknown Venipuncture / Unknown 06/23/2024 10:05 AM EST 06/23/2024 10:36 AM EST Narrative [facility] - 06/23/2024 10:58 AM EST Please check heparinized potassium, TY. us Sydney David GAS REGULATOR REPAIRER LAB BLOOD ORDERABLES Final Result [facility] [address] [place] [address], [place] [phone] * (ABNORMAL) Basic metabolic panel (06/23/2024 7:13 AM EST) Pathologist [facility] NA 134(L) 136 - 145 mmol/L 06/23/2024 8:09 AM EST [facility] K 06/23/2024 8:09 AM EST [facility] Comment:UNABLE TO REPORT DUE TO HEMOLYSIS Cl 100 98 - 109 mmol/L 06/23/2024 8:09 AM EST [facility] CO2 27 22 - 32 mmol/L 06/23/2024 8:09 AM EST [facility] BUN 36(H) 8 - 23 mg/dL 06/23/2024 8:09 AM EST [facility] Creatinine 1.08 0.50 - 1.12 mg/dL 06/23/2024 8:09 AM EST [facility] Glucose 119(H) 60 - 99 mg/dL 06/23/2024 8:09 AM EST [facility] Calcium 8.8 8.4 - 10.4 mg/dL 06/23/2024 8:09 AM EST [facility] Anion Gap 06/23/2024 8:09 AM EST [facility] Comment: UNABLE TO REPORT DUE TO HEMOLYSIS Unable to Calculate eGFR 55(L) >=60 mL/min/1. 73m2 06/23/2024 8:09 AM EST [facility] Comment:The estimated glomer ular filtration [...] EST 06/23/2024 7:36 AM EST Sydney David GAS REGULATOR REPAIRER LAB BLOOD ORDERABLES Final Result Performing Organization Address City/State/[facility] Co de Phone Number [facility] [address] [place] [id number], * (ABNORMAL) CBC (06/23/2024 7:13 AM EST) WBC 17.3(H) 4.8 - 10.8 10*3/uL 06/23/2024 7:43 AM EST [facility] RBC 4.18(L) 4.20 - 5.40 10*6/uL 06/23/2024 7:43 AM EST [facility] Hemoglobin 12.3 11.7 - 15.5 g/dL 06/23/2024 7:43 AM EST [facility] Hematocrit 37.2 35.7 - 45.8 % 06/23/2024 7:43 AM EST [facility] MCV 89.0 81.0 - 99.0 fL 06/23/2024 7:43 AM EST [facility] MCH 29.4 26.0 - 34.0 pg 06/23/2024 7:43 AM EST [facility] MCHC 33.1 31.0 - 36.0 g/dL 06/23/2024 7:43 AM EST [facility] RDW 13.2 12.0 - 15.0 % 06/23/2024 7:43 AM EST [facility] Platelets 249 140 - 440 10*3/uL 06/23/2024 7:43 AM EST [facility] MPV 9.5 9.4 - 12.3 fL 06/23/2024 7:43 AM EST [facility] RDW Standard Deviation 43.3 36.4 - 46.3 fL 06/23/2024 7:43 AM EST [facility] Blood Structure of peripheral vein / Unknown Venipuncture / Unknown 06/23/2024 7:13 AM EST 06/23/2024 7:37 AM EST Sydney David GAS REGULATOR REPAIRER LAB BLOOD ORDERABLES Final Result Performing Organization Address City/State/[facility] Co de Phone Number [facility] [address] [place] [id number], * X-Ray Chest 2 Views (06/22/2024 4:27 [...] obtain the completed interpretation. ? Workstation ID: [id number] Narrative 06/24/2024 9:35 AM EST COMPARISON: ??06/18/2024 FINDINGS AND Resulting Agency Comment [id number] Procedure Note Calvin Katz MD - 06/24/2024 COMPARISON: 06/18/2024 FINDINGS AND IMPRESSION: Interval clearing of prior LLL infiltrate/atelectasis. Lungs and pleuralspaces now clear. Heart size remains normal. If this radiology report contains a blank impression section, it is anincomplete radiology report. Please contact the interpreting radiologistor applicable radiology division as soon as possible to obtain thecompleted interpretation. Workstation ID: [id number] us Sydney David GAS REGULATOR REPAIRER IMG XR PROCEDURES Final Res ult * Lavender Top (06/22/2024 6:53 AM EST) Pathologist [facility] Extra Tube Hold for add-ons. 06/22/2024 11:05 AM EST [facility] Comment:Auto resulted. Blood Structure of peripheral vein / Unknown 06/22/2024 6:53 AM EST 06/22/2024 6:53 AM EST us Mj Mendenhall MD LAB BLOOD ORDERABLES Final R esult [facility] [address] [place] [address], [place] [phone] * (ABNORMAL) Basic Metabolic Panel (06/22/2024 6:38 AM EST) Pathologist [facility] NA 134(L) 136 - 145 mmol/L 06/22/2024 7:21 AM EST [facility] K 06/22/2024 7:21 AM EST [facility] Comment:UNABLE TO RESULT DUE TO HEMOLYSIS Cl 102 98 - 109 mmol/L 06/22/2024 7:21 AM EST [facility] CO2 23 22 - 32 mmol/L 06/22/2024 7:21 AM EST [facility] BUN 40(H) 8 - 23 mg/dL 06/22/2024 7:21 AM EST [facility] Creatinine 1.05 0.50 - 1.12 mg/dL 06/22/2024 7:21 AM EST [facility] Glucose 134(H) 60 - 99 mg/dL 06/22/2024 7:21 AM EST [facility] Calcium 8.4 8.4 - 10.4 mg/dL 06/22/2024 7:21 AM EST [facility] Anion Gap 06/22/2024 7:21 AM EST [facility] Comment: UNABLE TO RESULT DUE TO HEMOLYSIS Unable to Calculate eGFR 57(L) >=60 mL/min/1. 73m2 06/22/2024 7:21 AM EST [facility] Comment:The estimated glomer ular filtration [...] MD LAB BLOOD ORDERABLES Final R esult [facility] [address] [place] [address] [address] [place] [address], * ECG 12 lead For Preop? No (06/21/2024 7:26 AM EST) Ventricular Rate EKG 67 BPM MUSE EKG Atrial Rate 67 BPM MUSE EKG TX Interval 208 ms MUSE EKG QRS Interval 120 ms MUSE EKG QT Interval 414 ms MUSE EKG QTC Interval 437 ms MUSE EKG P Casey 50 degrees MUSE EKG R Casey 8 degrees MUSE EKG T Wave Casey 47 degrees MUSE EKG 06/21/2024 7:26 AM [...] - 145 mmol/L 06/21/2024 7:58 AM EST [facility] K 4.8 3.5 - 5.1 mmol/L 06/21/2024 7:58 AM EST [facility] Cl 102 98 - 109 mmol/L 06/21/2024 7:58 AM EST [facility] CO2 24 22 - 32 mmol/L 06/21/2024 7:58 AM EST [facility] BUN 45(H) 8 - 23 mg/dL 06/21/2024 7:58 AM EST [facility] Creatinine 1.15(H) 0.50 - 1.12 mg/dL 06/21/2024 7:58 AM EST [facility] Glucose 143(H) 60 - 99 mg/dL 06/21/2024 7:58 AM EST [facility] Calcium 8.6 8.4 - 10.4 mg/dL 06/21/2024 7:58 AM EST [facility] Anion Gap 16 >=0 06/21/2024 7:58 AM EST [facility] eGFR 51(L) >=60 mL/min/1. 73m2 06/21/2024 7:58 AM EST [facility] Comment:The estimated glomer ular filtration rate (eGFR) is calculated using a new formula developed by the NKF-ASN task force to eliminate race-based correction factors. The new formula uses serum/plasma creatinine, age, and gender to determine eGFR. A value below 60mls/min might indicate kidney disease and will be flagged. For additional information, see aZida et al, Am J Kidney Dis. 2021;79(2):268- 288, A Unifying Approach for GFR estimation: Recommendations of the NKF-ASN Task Force on Reassessing the Inclusion of Race in Diagnosing Kidney Disease . Blood Structure of peripheral vein / Unknown Venipuncture / Unknown 06/21/2024 6:10 AM EST 06/21/2024 7:01 AM EST Tia Oh GAS REGULATOR REPAIRER LAB BLOOD ORDERABLES Final Resul t Performing Organization Address [facility] Co de Phone Number [facility] [address] [address], * Troponin T, High Sensitivity (06/20/2024 10:19 AM EST) Troponin T High Sensitivity 14 6 - 14 ng/L 06/20/2024 11:08 AM EST [facility] Comment: Rb-Lsflhajh-F level of 52 ng/L or higher at [...] be evaluated in line with the 4th [place] Definition of AMI. Troponin baseline and serial [...] ORDERABLES Final R esult Performing Organization Address [facility]/ZIP Co de Phone Number [facility] [address] [address], * (ABNORMAL) N-terminal ProBrain Natriuretic Peptide (06/20/2024 10:19 AM EST) Pathologist [facility] Pro-B-Type Natriuretic Peptide 2,459(H) <=900 pg/mL 06/20/2024 11:05 AM EST [facility] Comment: RULE IN CHF >/= [...] ORDERABLES Final R esult Performing Organization Address City/State/[facility] Co de Phone Number [facility] [address] [place] [phone], * (ABNORMAL) Basic metabolic panel (06/20/2024 8:53 AM EST) Pathologist [facility] NA 136 136 - 145 mmol/L 06/20/2024 9:48 AM EST [facility] K 4.1 3.5 - 5.1 mmol/L 06/20/2024 9:48 AM EST [facility] Comment:ALL DELTAS REVIEWED Cl 102 98 - 109 mmol/L 06/20/2024 9:48 AM EST [facility] CO2 21(L) 22 - 32 mmol/L 06/20/2024 9:48 AM EST [facility] BUN 42(H) 8 - 23 mg/dL 06/20/2024 9:48 AM EST [facility] Creatinine 1.17(H) 0.50 - 1.12 mg/dL 06/20/2024 9:48 AM EST [facility] Glucose 164(H) 60 - 99 mg/dL 06/20/2024 9:48 AM EST [facility] Calcium 8.8 8.4 - 10.4 mg/dL 06/20/2024 9:48 AM EST [facility] Anion Gap 17 >=0 06/20/2024 9:48 AM EST [facility] eGFR 50(L) >=60 mL/min/1. 73m2 06/20/2024 9:48 AM EST [facility] Comment:The estimated glomer ular filtration [...] 06/20/2024 9:05 AM EST us Tia Oh GAS REGULATOR REPAIRER LAB BLOOD ORDERABLES Final Resul t [facility] [address] [facility] [address] [place] [address], * (ABNORMAL) Respiratory Culture (06/20/2024 7:37 AM EST) Respiratory Culture Moderate Ranya albicans(A) [facility] 06/22/2024 11:29 AM EST [facility] Gram Stain Result <25 per LPF White Blood Cells Seen 06/22/2024 11:29 AM EST [facility] Gram Stain Result <10 per LPF Epithelial Cells 06/22/2024 11:29 AM EST [facility] Gram Stain Result Rare Gram Positive Cocci in pairs 06/22/2024 11:29 AM EST [facility] Sputum Sputum / Unknown Non-Blood Collection / Unknown 06/20/2024 7:37 AM EST 06/20/2024 7:54 AM EST Narrative [facility] - 06/22/2024 11:29 AM EST Many normal respiratory beena present. us Tia Oh GAS REGULATOR REPAIRER LAB MICROBIOLOGY - GENERAL ORDER RHINA Final Result [facility] [address] [facility] [address] [place] [address], * (ABNORMAL) Basic metabolic panel (06/19/2024 6:15 AM EST) NA 137 136 - 145 mmol/L 06/19/2024 7:01 AM EST [facility] K 5.2(H) 3.5 - 5.1 mmol/L 06/19/2024 7:01 AM EST [facility] Cl 106 98 - 109 mmol/L 06/19/2024 7:01 AM EST [facility] CO2 19(L) 22 - 32 mmol/L 06/19/2024 7:01 AM EST [facility] BUN 41(H) 8 - 23 mg/dL 06/19/2024 7:01 AM EST [facility] Creatinine 1.12 0.50 - 1.12 mg/dL 06/19/2024 7:01 AM EST [facility] Glucose 139(H) 60 - 99 mg/dL 06/19/2024 7:01 AM EST [facility] Calcium 9.1 8.4 - 10.4 mg/dL 06/19/2024 7:01 AM EST [facility] Anion Gap 17 >=0 06/19/2024 7:01 AM EST [facility] eGFR 52(L) >=60 mL/min/1. 73m2 06/19/2024 7:01 AM EST [facility] Comment:The estimated glomer ular filtration [...] 06/19/2024 6:40 AM EST us Tia Oh GAS REGULATOR REPAIRER LAB BLOOD ORDERABLES Final Resul t [facility] [address] [place] [address] [address] [place] [address], * (ABNORMAL) CBC (06/19/2024 6:15 AM EST) WBC 13.0(H) 4.8 - 10.8 10*3/uL 06/19/2024 6:53 AM EST [facility] RBC 3.87(L) 4.20 - 5.40 10*6/uL 06/19/2024 6:53 AM EST [facility] Hemoglobin 11.2(L) 11.7 - 15.5 g/dL 06/19/2024 6:53 AM EST [facility] Hematocrit 33.8(L) 35.7 - 45.8 % 06/19/2024 6:53 AM EST [facility] MCV 87.3 81.0 - 99.0 fL 06/19/2024 6:53 AM EST [facility] MCH 28.9 26.0 - 34.0 pg 06/19/2024 6:53 AM EST [facility] MCHC 33.1 31.0 - 36.0 g/dL 06/19/2024 6:53 AM EST [facility] RDW 13.2 12.0 - 15.0 % 06/19/2024 6:53 AM EST [facility] Platelets 238 140 - 440 10*3/uL 06/19/2024 6:53 AM EST [facility] MPV 10.0 9.4 - 12.3 fL 06/19/2024 6:53 AM EST [facility] RDW Standard Deviation 41.9 36.4 - 46.3 fL 06/19/2024 6:53 AM EST [facility] Blood Structure of peripheral vein / Unknown Venipuncture / Unknown 06/19/2024 6:15 AM EST 06/19/2024 6:37 AM EST us Tia Oh GAS REGULATOR REPAIRER LAB BLOOD ORDERABLES Final Resul t Performing Organization Address [facility] Co de Phone Number [facility] [address] [facility] [address] [place] [address], * Legionella Antigen, Urine (06/18/2024 6:44 PM EST) Legionella pneumophila Urine Ag Negative Negative [facility] 06/19/2024 8:53 AM EST [facility] Comment: INTERPRETATION: Presumptive negative for [...] 6:44 PM EST 06/18/2024 7:15 PM EST [facility] - 06/19/2024 8:53 AM EST [...] ORDERABLES Final R esult Performing Organization Address City/[facility]/ZIP Co de Phone Number [facility] [address] [address], * Streptococcus Pneumoniae Antigen Urine (06/18/2024 6:44 PM EST) Streptococcus pneumoniae Antigen, Urine Negative Negative [facility] 06/19/2024 8:53 AM EST [facility] Comment: INTERPRETATION: Presumptive negative for [...] ORDERABLES Final R esult Performing Organization Address [facility] Co de Phone Number [facility] [address] [address], * XR Chest Portable 1 View (06/18/2024 [...] obtain the completed interpretation. ? Workstation ID: [id number] Narrative 06/20/2024 10:17 AM EST EXAMINATION: XR CHEST PORTABLE 1 VIEW COMPARISON: CT chest pulmonary angiogram 06/15/2024 and other priors. FINDINGS: Lines/Tubes/Devices: None. Lungs: Redemonstrated left basilar consolidation. Pleura: No pleural effusions or pneumothorax. Heart/Mediastinum: Cardiomediastinal silhouette is similar to prior. Bones/Soft tissues: No acute osseous abnormality. Resulting Agency Comment [id number] Procedure Note Apolonia Nolen MD - 06/20/2024 [...] possible to obtain thecompleted interpretation. Workstation ID: [id number] us Tia Oh GAS REGULATOR REPAIRER IMG XR PROCEDURES Final Result * (ABNORMAL) N-terminal ProBrain Natriuretic Peptide (06/18/2024 2:12 PM EST) Pro-B-Type Natriuretic Peptide 2,998(H) <=900 pg/mL 06/18/2024 3:10 PM EST [facility] Comment: RULE IN CHF >/= [...] PM EST 06/18/2024 2:23 PM EST Narrative [facility] - 06/18/2024 3:10 PM EST All deltas reviewed us Tia Oh GAS REGULATOR REPAIRER LAB BLOOD ORDERABLES Final Resul t [facility] [address] [facility] [address] [place] [address], [place] [phone] * TSH (06/17/2024 7:03 AM EST) TSH 0.874 0.270 - 4.200 uIU/mL 06/17/2024 2:31 PM EST [facility] Comment: Females: 1st trimester ? 0.150-4.000 ??IU/mL 2nd trimester ?? 0.310-4.170 ?IU/mL 3rd trimester ?0.380-4.150 ?IU/mL Blood Structure of peripheral vein / Unknown Venipuncture / Unknown 06/17/2024 7:03 AM EST 06/17/2024 7:23 AM EST us Tia Oh GAS REGULATOR REPAIRER LAB BLOOD ORDERABLES Final Resul t [facility] [address] [facility] [address] [place] [address], [place] [phone] * (ABNORMAL) CBC Auto Differential (06/17/2024 7:03 AM EST) Pathologist [facility] WBC 11.6(H) 4.8 - 10.8 10*3/uL 06/17/2024 7:30 AM EST [facility] RBC 3.94(L) 4.20 - 5.40 10*6/uL 06/17/2024 7:30 AM [facility] Hemoglobin 11.7 11.7 - 15.5 g/dL 06/17/2024 7:30 AM EST [facility] Hematocrit 35.4(L) 35.7 - 45.8 % 06/17/2024 7:30 AM EST [facility] MCV 89.8 81.0 - 99.0 fL 06/17/2024 7:30 AM EST [facility] MCH 29.7 26.0 - 34.0 pg 06/17/2024 7:30 AM EST [facility] MCHC 33.1 31.0 - 36.0 g/dL 06/17/2024 7:30 AM [facility] RDW 12.9 12.0 - 15.0 % 06/17/2024 7:30 AM [facility] RDW Standard Deviation 42.6 36.4 - 46.3 fL 06/17/2024 7:30 AM [facility] Platelets 257 140 - 440 10*3/uL 06/17/2024 7:30 AM [facility] Comment:REV IEWED MPV 10.0 9.4 - 12.3 fL 06/17/2024 7:30 AM [facility] Neutrophil % 81.6(H) 50.0 - 75.0 % 06/17/2024 7:30 AM [facility] Immature Grans % 0.8 0.0 - 0.9 % 06/17/2024 7:30 AM [facility] Lymphocyte % 11.8(L) 20.0 - 44.0 % 06/17/2024 7:30 AM [facility] Monocyte % 5.6 0.0 - 14.0 % 06/17/2024 7:30 AM [facility] Eosinophil % 0.0 0.0 - 5.0 % 06/17/2024 7:30 AM [facility] Basophil % 0.2 0.0 - 2.0 % 06/17/2024 7:30 AM [facility] Neutrophil # 9.48(H) 1.80 - 7.70 10*3/uL 06/17/2024 7:30 AM [facility] Immature Grans # 0.09(H) 0.00 - 0.03 10*3/uL 06/17/2024 7:30 AM [facility] Lymphocyte # 1.40 1.00 - 4.75 10*3/uL 06/17/2024 7:30 AM [facility] Monocyte # 0.70(H) 0.00 - 0.60 10*3/uL 06/17/2024 7:30 AM [facility] Eosinophil # <0.03 0.00 - 0.80 10*3/uL 06/17/2024 7:30 AM [facility] Basophil # <0.03 0.00 - 0.20 10*3/uL 06/17/2024 7:30 AM EST [facility] nRBC % 0.0 0 - 0 /100 WBCs 06/17/2024 7:30 AM EST [facility] nRBC # <0.01 0.00 - 0.13 10*3/uL 06/17/2024 7:30 AM EST [facility] Blood Structure of peripheral vein / Unknown Venipuncture / Unknown 06/17/2024 7:03 AM EST 06/17/2024 7:22 AM EST us Mj Mendenhall MD LAB BLOOD ORDERABLES Final R esult [facility] [address] [place] [id number], [place] [phone] * (ABNORMAL) Comprehensive Metabolic Panel (06/17/2024 7:03 AM EST) NA 139 136 - 145 mmol/L 06/17/2024 8:07 AM EST [facility] K 5.1 3.5 - 5.1 mmol/L 06/17/2024 8:07 AM EST [facility] Cl 106 98 - 109 mmol/L 06/17/2024 8:07 AM EST [facility] CO2 23 22 - 32 mmol/L 06/17/2024 8:07 AM EST [facility] Anion Gap 15 >=0 06/17/2024 8:07 AM EST [facility] Glucose 111(H) 60 - 99 mg/dL 06/17/2024 8:07 AM EST [facility] Creatinine 0.99 0.50 - 1.12 mg/dL 06/17/2024 8:07 AM EST [facility] Calcium 9.4 8.4 - 10.4 mg/dL 06/17/2024 8:07 AM EST [facility] Total Protein 6.8 6.6 - 8.7 g/dL 06/17/2024 8:07 AM EST [facility] Albumin 4.0 3.5 - 5.0 g/dL 06/17/2024 8:07 AM EST [facility] Bilirubin, Total 0.1(L) 0.2 - 1.2 mg/dL 06/17/2024 8:07 AM EST [facility] Alkaline Phosphatase 109 40 - 129 U/L 06/17/2024 8:07 AM EST [facility] AST 23 0 - 33 U/L 06/17/2024 8:07 AM EST [facility] ALT 26 <=33 U/L 06/17/2024 8:07 AM EST [facility] BUN 27(H) 8 - 23 mg/dL 06/17/2024 8:07 AM EST [facility] eGFR 61 >=60 mL/min/1. 73m2 06/17/2024 8:07 AM EST [facility] Comment:The estimated glomer ular filtration [...] - 4.2 g/dL 06/17/2024 8:07 AM EST [facility] A/G Ratio 1.4(L) 1.5 - 3.0 06/17/2024 8:07 AM EST [facility] Blood Structure of peripheral vein / Unknown Venipuncture / Unknown 06/17/2024 7:03 AM EST 06/17/2024 7:23 AM EST us Mj Mendenhall MD LAB BLOOD ORDERABLES Final R esult [facility] [address] [place] [address], * Lavender Top (06/16/2024 7:54 AM EST) Extra Tube Hold for add-ons. 06/16/2024 12:05 PM EST [facility] Comment:Auto resulted. Blood Structure of peripheral vein / Unknown 06/16/2024 7:54 AM EST 06/16/2024 7:54 AM EST Mj Mendenhall MD LAB BLOOD ORDERABLES Final R esult Performing Organization Address City/[facility]/ZIP Co de Phone Number [facility] [address] [address], * Light Green Top (06/16/2024 7:54 AM EST) Extra Tube Hold for add-ons. 06/16/2024 12:05 PM EST [facility] Comment:Auto resulted. Blood Structure of peripheral vein / Unknown 06/16/2024 7:54 AM EST 06/16/2024 7:54 AM EST Mj Mendenhall MD LAB BLOOD ORDERABLES Final R esult Performing Organization Address City/[facility]/ZIP Co de Phone Number [facility] [address] [address], * Mycoplasma pneumoniae Antibodies, IgG/IgM (06/16/2024 7:42 [...] BLOOD ORDERABLES Final R esult HILARY DAVID [address] [place] [address] [address], [place] [address], [place] [phone] HILARY MARTINEZ (SEPUL[place]EDA) [address] [place], [place] , [place] * CT Chest PE [...] obtain the completed interpretation. ? Workstation ID: [id number] Up-to-date CT equipment and radiation dose reduction [...] possible to obtain thecompleted interpretation. Workstation ID: [id number] Up-to-date CT equipment and radiation dose reduction techniques wereemployed. CTDIvol: .8 - 21.4 mGy. DLP: 802 mGy-cm. us Kevin Newsome MD IMIman CT PROCEDURES Final Result * (ABNORMAL) Blood gas, venous (06/15/2024 10:17 PM EST) pH, Venous 7.24(LL) 7.35 - 7.45 06/16/2024 2:54 AM EST [facility] pCO2, Venous 57.0 mm[Hg] 06/16/2024 2:54 AM EST [facility] pO2, Keegan 138.0 mm[Hg] 06/16/2024 2:54 AM EST [facility] HCO3, Venous 22 mmol/L 06/16/2024 2:54 AM EST [facility] O2 Sat, Venous 97.8 % 06/16/2024 2:54 AM EST [facility] Base Excess, Keegan -3.6 mmol/L 06/16/2024 2:54 AM EST [facility] Blood Structure of peripheral vein / Unknown Venipuncture / Unknown 06/15/2024 10:17 PM EST 06/16/2024 2:52 AM EST us Kevin Newsome MD LAB BLOOD ORDERABLES Final Resul t Performing Organization Address [facility]/ZIP Co de Phone Number [facility] [address] [place] [address], [place] * Lactic Acid, Plasma (06/15/2024 10:17 PM EST) Lactic Acid 0.7 0.5 - 2.2 mmol/L 06/15/2024 11:02 PM EST [facility] Blood Structure of peripheral vein / Unknown Venipuncture / Unknown 06/15/2024 10:17 PM EST 06/15/2024 10:31 PM EST us Kevin Newsome MD LAB BLOOD ORDERABLES Final Resul t Performing Organization Address [facility] Co de Phone Number [facility] [address] [address], [place] [phone] * Blood Culture (06/15/2024 10:17 PM EST) Blood Culture No growth after 5 days 06/20/2024 11:05 PM EST [facility] Blood Structure of peripheral vein / Unknown Venipuncture / Unknown 06/15/2024 10:17 PM EST 06/15/2024 10:39 PM EST us Kevin Newsome MD LAB MICROBIOLOGY - GENERAL ORDER RHINA Final Result Performing Organization Address City/[facility] Co de Phone Number [facility] [address] [address], [place] [phone] * Blood Culture (06/15/2024 10:17 PM EST) Blood Culture No growth after 5 days 06/20/2024 11:05 PM EST [facility] Blood Structure of peripheral vein / Unknown Venipuncture / Unknown 06/15/2024 10:17 PM EST 06/15/2024 10:39 PM EST Kevin Newsome MD LAB MICROBIOLOGY - GENERAL ORDER RHINA Final Result Performing Organization Address [facility] de Phone Number [facility] [address] [address], * Troponin T, High Sensitivity X2 (now + 2hrs) (06/15/2024 10:17 PM EST) Troponin T High Sensitivity 12 6 - 14 ng/L 06/15/2024 11:01 PM EST [facility] Comment: Sc-Ijizdyyl-O level of 52 ng/L or higher at [...] be evaluated in line with the 4th [place] Definition of AMI. Troponin baseline and serial [...] ORDERABLES Final R esult Performing Organization Address City/[facility]/ZIP Co de Phone Number [facility] [address] [address], * XR Chest 2 vw. Standard (06/15/2024 [...] obtain the completed interpretation. ? Workstation ID: [id number] Narrative 06/15/2024 8:30 PM EST COMPARISON: Chest x-ray 06/03/2024 FINDINGS AND Resulting Agency Comment [id number] Procedure Note Ruperto Huang MD - 06/15/2024 [...] possible to obtain thecompleted interpretation. Workstation ID: [id number] us Calvin Fontenot MD IMG XR PROCEDURES Final Resu lt * ECG 12 lead (06/15/2024 8:08 PM EST) Ventricular Rate EKG 67 BPM MUSE EKG Atrial Rate 67 BPM MUSE EKG TX Interval 282 ms MUSE EKG QRS Interval 116 ms MUSE EKG QT Interval 412 ms MUSE EKG QTC Interval 435 ms MUSE EKG P Casey 68 degrees MUSE EKG R Casey 18 degrees MUSE EKG T Wave Casey 51 degrees MUSE EKG 06/15/2024 8:08 PM EST 06/16/2024 10:55 AM EST Impressions MUSE EKG - 06/16/2024 10:55 AM EST Sinus rhythm with 1st degree AV block Confirmed by Rosi Garcia ([id number]) on 06/16/2024 10:55:43 AM Calvin Fontenot MD ECG ORDERABLES Final Result Performing Organization Address City/[facility]/ZIP Co de Phone Number MUSE EKG * Troponin T, High Sensitivity X2 (now + 2hrs) (06/15/2024 8:00 PM EST) Troponin T High Sensitivity 14 6 - 14 ng/L 06/15/2024 8:35 PM EST [facility] Comment: Tg-Tkoalqrd-P level of 52 ng/L or higher at [...] be evaluated in line with the 4th [place] Definition of AMI. Troponin baseline and serial [...] ORDERABLES Final R esult Performing Organization Address City/[facility]/ZIP Co de Phone Number [facility] [address] [place] [address], * N-terminal ProBrain Natriuretic Peptide (06/15/2024 8:00 PM EST) Pro-B-Type Natriuretic Peptide 295 <=900 pg/mL 06/15/2024 8:33 PM EST [facility] Comment: RULE IN CHF >/= [...] MD LAB BLOOD ORDERABLES Final R esult [facility] [address] [place] [id number], * (ABNORMAL) Basic Metabolic Panel (06/15/2024 8:00 PM EST) NA 142 136 - 145 mmol/L 06/15/2024 8:35 PM EST [facility] K 4.6 3.5 - 5.1 mmol/L 06/15/2024 8:35 PM EST [facility] Cl 109 98 - 109 mmol/L 06/15/2024 8:35 PM EST [facility] CO2 23 22 - 32 mmol/L 06/15/2024 8:35 PM EST [facility] BUN 30(H) 8 - 23 mg/dL 06/15/2024 8:35 PM EST [facility] Creatinine 1.25(H) 0.50 - 1.12 mg/dL 06/15/2024 8:35 PM EST [facility] Glucose 126(H) 60 - 99 mg/dL 06/15/2024 8:35 PM EST [facility] Calcium 8.9 8.4 - 10.4 mg/dL 06/15/2024 8:35 PM EST [facility] Anion Gap 15 >=0 06/15/2024 8:35 PM EST [facility] eGFR 46(L) >=60 mL/min/1. 73m2 06/15/2024 8:35 PM EST [facility] Comment:The estimated glomer ular filtration [...] MD LAB BLOOD ORDERABLES Final R esult [facility] [address] [place] [id number], * (ABNORMAL) CBC Auto Differential (06/15/2024 8:00 PM EST) WBC 4.9 4.8 - 10.8 10*3/uL 06/15/2024 8:19 PM EST [facility] RBC 3.86(L) 4.20 - 5.40 10*6/uL 06/15/2024 8:19 PM EST [facility] Hemoglobin 11.4(L) 11.7 - 15.5 g/dL 06/15/2024 8:19 PM EST [facility] Hematocrit 35.2(L) 35.7 - 45.8 % 06/15/2024 8:19 PM EST [facility] MCV 91.2 81.0 - 99.0 fL 06/15/2024 8:19 PM EST [facility] MCH 29.5 26.0 - 34.0 pg 06/15/2024 8:19 PM EST [facility] MCHC 32.4 31.0 - 36.0 g/dL 06/15/2024 8:19 PM EST [facility] RDW 12.9 12.0 - 15.0 % 06/15/2024 8:19 PM EST [facility] RDW Standard Deviation 43.3 36.4 - 46.3 fL 06/15/2024 8:19 PM EST [facility] Platelets 190 140 - 440 10*3/uL 06/15/2024 8:19 PM EST [facility] MPV 10.0 9.4 - 12.3 fL 06/15/2024 8:19 PM [facility] Neutrophil % 53.9 50.0 - 75.0 % 06/15/2024 8:19 PM [facility] Immature Grans % 0.4 0.0 - 0.9 % 06/15/2024 8:19 PM EST [facility] Lymphocyte % 32.0 20.0 - 44.0 % 06/15/2024 8:19 PM EST [facility] Monocyte % 10.0 0.0 - 14.0 % 06/15/2024 8:19 PM EST [facility] Eosinophil % 3.3 0.0 - 5.0 % 06/15/2024 8:19 PM EST [facility] Basophil % 0.4 0.0 - 2.0 % 06/15/2024 8:19 PM EST [facility] Neutrophil # 2.63 1.80 - 7.70 10*3/uL 06/15/2024 8:19 PM EST [facility] Immature Grans # <0.03 0.00 - 0.03 10*3/uL 06/15/2024 8:19 PM EST [facility] Lymphocyte # 1.60 1.00 - 4.75 10*3/uL 06/15/2024 8:19 PM EST [facility] Monocyte # 0.50 0.00 - 0.60 10*3/uL 06/15/2024 8:19 PM EST [facility] Eosinophil # 0.20 0.00 - 0.80 10*3/uL 06/15/2024 8:19 PM EST [facility] Basophil # <0.03 0.00 - 0.20 10*3/uL 06/15/2024 8:19 PM EST [facility] nRBC % 0.0 0 - 0 /100 WBCs 06/15/2024 8:19 PM EST [facility] nRBC # <0.01 0.00 - 0.13 10*3/uL 06/15/2024 8:19 PM EST [facility] Blood Structure of peripheral vein / Unknown Venipuncture / Unknown 06/15/2024 8:00 PM EST 06/15/2024 8:09 PM EST Calvin Fontenot MD LAB BLOOD ORDERABLES Final R esult [facility] [address] [place] [address] [address] [place] [address], * COVID-19, Flu A/B & RSV RNA PCR, Symptomatic (06/15/2024 7:58 PM EST) Pathologist [facility] PCR, SARS CoV-2 RNA Not Detected Not Detected [employer]EXPERT 06/15/2024 8:48 PM EST [facility] Flu A RNA PCR Not Detected Not Detected CEPHEID GENEXPERT 06/15/2024 8:48 PM EST [facility] Flu B RNA PCR Not Detected Not Detected CEPHEID GENEXPERT 06/15/2024 8:48 PM EST [facility] RSV RNA PCR Not Detected Not Detected CEPHEID GENEXPERT 06/15/2024 8:48 PM EST [facility] Comment: Limitations: This RSV test [...] PM EST 06/15/2024 8:09 PM EST Narrative [facility] - 06/15/2024 8:48 PM EST Methodology: The [employer] GeneXpert CoV-2/Flu/RSV plus assay is For Use Under an Emergency Use Authorization (EUA) Only with [employer]. The CoV-2/Flu/RSV plus assay is a [...] FLUIDS AND STOOLS O RDERABLES Final Result [facility] [address] [place] [address], [place] [phone] * HEART & VASCULAR - SCANNED (06/15/2024) [...] pulmonary disease with acute exacerbation (HCC) A-fib ([facility]) (HCC) Atrial fibrillation Lumbar canal stenosis HLD (hyperlipidemia) Other and unspecified hyperlipidemia Hypothyroidism Unspecified hypothyroidism Severe asthma with exacerbation Acute respiratory failure with hypoxia (HCC) Acute pulmonary edema (HCC) Unspecified acute edema of lung Diastolic CHF, acute ([facility]) (HCC) Elevated serum creatinine Other nonspecific findings [...] Once, On Mon06/16/24 at 0100, 1 dose, ADD-[place] bag, Reason for Therapy: Bacterial Infection Documented, Indication: Pneumonia New Bag/Syringe 06/16/2024 2:13 AM EST 500 mg 250 mL/hr azithromycin (ZITHROMAX) 500 mg in 0.9% NaCl 250 mL IVPB 500 mg, intravenous, at 250 mL/hr, Administer over 1 Hours, Daily, First dose (after last reorder) on Mon06/17/24 at 0400, 5 doses, Last dose on Mon06/21/24 at 0400, ADD-[place] bag, Reason for Therapy: Bacterial Infection Documented, [...] Provider: Ailyn Washington LPN)2017 (Given - Provider: Ailyn Washington LPN) 0821 [...] 0927 (Not Given - Provider: Sophia Fitzpatrick, SHELTER MONITOR - Reason: Other - See Comment - [...] not crush. 0344 (Given - Provider: Marleny Setrling LPN) calcium carbonate (TUMS) chewable tablet 1,000 [...] 0926 (Not Given - Provider: Sophia Fitzpatrick, SHELTER MONITOR - Reason: Other - See Comment - [...] Ailyn Washington LPN) 0837 (Given - Provider: Solange Sosa LPN) traZODone [...] documented as of this encounter Care Teams Criminal Intelligence Specialist Relationship Specialty Start Date End Date Bijal Fox, GAS REGULATOR REPAIRER [address] [place] [id number] PCP - General Family Medicine 05/30/24 documented as of this encounter
--- OUTSIDE RECORDS SUMMARY | 2024-07-10 12:05 | XMS_ITS | Encounter Summary ---
Author Organization [facility] Address [address] [place] [address] Care Team Providers Care Harpooner Name Role Phone Brandyn Pagan MD Primary Care Provider Unavaila Radha Fink NP Unavailable Unavailable Unknown Pcp, Non Rmg Primary Care Provider Unava ilable Encounter Details Date Type Department Care Team (Late st Contact Info) Description 01/28/2016 Orders Only [facility] [address] [place] [address] Radha Spangler, MEY Social History Tobacco Use [...] of this encounter Procedures * Due to [place] [employer] law, this organization might not be sharing negative HIV tests. Procedure Name Priority Date/Time Associated Diagnosis Comments BASIC METABOLIC PANEL WITH (GFR) Routine 01/28/2016 11:41 AM EDT Elevated serum creatinine documented in this encounter Results * Due to [place] [employer] law, this organization might not be sharing negative HIV tests. * (ABNORMAL) BASIC METABOLIC PANEL WITH (GFR) (01/28/2016 11:41 AM EDT) Glucose 95 65 - 99 mg/dL [facility] Comment: {GLUCOSE {[id number]) ? Fasting reference interval Urea Nitrogen Blood (BUN) 28(H) 7 - 25 mg/dL [facility] Comment:{UREA NITROGEN (BUN) {[id number]) Creatinine 1.12(H) 0.50 - 0.99 mg/dL [facility] Comment: {CREATININE {[id number]) For patients >49 years of age, the reference limit for Creatinine is approximately 13% higher for people identified as -Citizen Of [place]. GFR 52(L) > OR = 60 mL/min/1. 73m2 [facility] Comment:{eGFR NON-AFR. AMERI CAN {[id number]) GFR () 60 > OR = 60 mL/min/1. 73m2 [facility] Comment:{eGFR AMERIC AN {[id number]) BUN/Creatinine Ratio 25(H) 6 - 22 (calc) [facility] Comment:{BUN/CREATININE RATI O {[id number]) Sodium 140 135 - 146 mmol/L [facility] Comment:{SODIUM {[id number]) Potassium 4.8 3.5 - 5.3 mmol/L [facility] Comment:{POTASSIUM {[id number]) Chloride 106 98 - 110 mmol/L [facility] Comment:{CHLORIDE {[id number]) Carbon dioxide 30 20 - 31 mmol/L [facility] Comment:{CARBON DIOXIDE {[id number]) Calcium 9.5 8.6 - 10.4 mg/dL [facility] Comment:{CALCIUM {[id number]) 01/28/2016 11:4 1 AM EDT 01/28/2016 [...] needs for GFR calculation. Resulting Agency Comment [id number] Radha Spangler NP LABORATORY Final Result Performing Organization Address City/State/[facility] Co de Phone Number [facility] [address] [place] [address] documented in this encounter Visit Diagnoses Diagnosis Elevated serum creatinine Other nonspecific findings on examination of blood documented in this encounter Care Teams Harpooner Relationship Specialty Start Date End Date Brandyn Pagan MD PCP - General Internal Medicine 08/07/15 02/02/17 Radha Spangler NP PCP - Backup PCP Internal Medicine 01/11/16 02/02/17 Unknown Pcp, Non Rmg PCP - General 02/03/17 documented as of this encounter
--- OUTSIDE RECORDS SUMMARY | 2024-07-10 12:05 | XMS_ITS | Encounter Summary ---
Author Organization [facility] Address [address] [place] [address] Care Team Providers Care Field Property Loss Specialist Name Role Phone Bijal Fox MOTION PICTURE SET GRIP Primary Care Provider [phone] Encounter Details Date Type Department Care Team (Late st Contact Info) Description 06/23/2024 Lab Requisition [facility] [address] [place] [address] Mj Mendenhall MD [address] [place] [address] Pneumonia due to other specified infectious organisms [...] Follow-Up [facility] Nephrology [address] [place] [address] [address] [place] [address] John Hendricks MD [address] [address] 01/08/2025 10:00 AM EDT Follow-Up [address] Cardiology 100 [facility] [address] [place] [address] Mabel Onofre NP 100 [facility] [address] [place] [address] documented as of this encounter Procedures * Due to [facility] law, this organization might not be sharing negative HIV tests. Procedure Name Priority Date/Time Associated Diagnosis Comments VITAMIN D, 25-HYDROXY, TOTAL, IMMUNOASSAY Routine 06/23/2024 6:00 AM EST Pneumonia due to other specified infectious organisms documented in this encounter Results * Due to [facility] law, this organization might not be sharing negative HIV tests. * (ABNORMAL) Vitamin D, 25-Hydroxy, Total, Immunoassay (06/23/2024 6:00 AM EST) Vitamin D 25-OH 21.50(L) 30.00 - 80.00 ng/mL 06/23/2024 8:52 AM EST [facility] Blood Structure of peripheral vein / Unknown 06/23/2024 6:00 AM EST 06/23/2024 7:54 AM EST us Mj Mendenhall MD LAB BLOOD ORDERABLES Final R esult [facility] [address] [facility] [address] [place] [address], documented in this encounter Visit Diagnoses Diagnosis Pneumonia due to other specified infectious organisms documented in this encounter Care Teams Field Property Loss Specialist Relationship Specialty Start Date End Date Bijal Fox, MEY [address] [facility] [address] [place] [address] PCP - General Family Medicine 05/30/24 documented as of this encounter
--- OUTSIDE RECORDS SUMMARY | 2024-07-10 12:05 | XMS_ITS | Encounter Summary ---
Author Organization [facility] Address [address] [place] [address] Care Team Providers Care Lithograph Designer Name Role Phone Brandyn Pagan MD Primary Care Provider Radha Cuevas NP Unavailable Unavailable Unknown Pcp, Non Rmg Primary Care Provider Unava ilable Reason for Visit * Reason Onset Date Comments Labs/orders 12/28/2015 Creatinine Order for Radiology with Contrast Encounter Details Date Type Department Care Team ([facility] st Contact Info) Description 12/28/2015 Telephone 300 [facility] Magnetic Resonance Imaging [address] [place] [address] Radha Spangler NP Labs/orders (Creatinine [...] Cervicalgia documented in this encounter Care Teams Lithograph Designer Relationship Specialty Start Date End Date Brandyn Pagan MD PCP - General Internal Medicine 08/07/15 02/02/17 Radha Spangler NP PCP - Backup PCP Internal Medicine 01/11/16 02/02/17 Unknown Pcp, Non Rmg PCP - General 02/03/17 documented as of this encounter
--- OUTSIDE RECORDS SUMMARY | 2024-07-10 12:05 | XMS_ITS | Encounter Summary ---
Author Organization [facility] Address [address] [place] [address] Care Team Providers Care Life Science Research Assistant Name Role Phone Brandyn Pagan MD Primary Care Provider Unavaila Radha Fink NP Unavailable Unavailable Unknown Pcp, Non Rmg Primary Care Provider Unava ilable Encounter Details Date Type Department Care Team (Late st Contact Info) Description 01/04/2017 Orders Only [facility] [address] [place] [address] Radha Spangler NP Social History Tobacco Use [...] 017 9:26 AM EDT) No Eineberg, Radha, DEPUTY JUVENILE OFFICER documented as of this encounter Procedures * Due to [place] [employer] law, this organization might not be sharing [...] in this encounter Results * Due to [place] [employer] law, this organization might not be sharing negative HIV tests. * (ABNORMAL) BASIC METABOLIC PANEL WITH (GFR) (01/04/2017 1:11 PM EDT) Glucose 97 65 - 99 mg/dL [facility] Comment:Fasting reference in [facility] Urea Nitrogen Blood (BUN) 27(H) 7 - 25 mg/dL [facility] Creatinine 1.18(H) 0.50 - 0.99 mg/dL [facility] Comment: For patients >49 years of age, the reference limit for Creatinine is approximately 13% higher for people identified as -[place]. GFR 48(L) > OR = 60 mL/min/1. [...] needs for GFR calculation. Resulting Agency Comment [id number] Radha Spangler NP LABORATORY Final Result Performing Organization Address [facility] Co de Phone Number [facility] [address] [place] [address] * HEPATIC FUNCTION PANEL (ALT,AST,ALK PH,BILI'S,TP,ALB) (01/04/2017 [...] 10:19 PM EDT Narrative Resulting Agency Comment [id number] Radha Spangler NP LABORATORY Final Result Performing Organization Address [facility] Co de Phone Number [facility] [address] [place] [address] * (ABNORMAL) HEMOGLOBIN A1C (01/04/2017 1:11 PM [...] 10:19 PM EDT Narrative Resulting Agency Comment [id number] Radha Spangler NP LABORATORY Final Result Performing Organization Address [facility] de Phone Number [facility] [address] [place] [address] * (ABNORMAL) LIPID PANEL WITH REFLEX TO [...] 10:19 PM EDT Narrative Resulting Agency Comment [id number] Radha Spangler NP LABORATORY Final Result Performing Organization Address [facility] de Phone Number [facility] [address] [place] [address] * (ABNORMAL) CBC INCLUDES DIFFERENTIAL AND PLATELET [...] 10:19 PM EDT Narrative Resulting Agency Comment [id number] Radha Spangler NP LAB SAME DAY RESULT Final Re sult [facility] [address] [place] [address] documented in this encounter Visit Diagnoses Diagnosis Nail discoloration Other specified disease of nail Transaminitis Nonspecific elevation of levels of transaminase or lactic acid dehydrogenase (LDH) Benign essential HTN Essential hypertension, benign CKD (chronic kidney disease), stage III (HCC) Chronic kidney disease, Stage III (moderate) documented in this encounter Care Teams Life Science Research Assistant Relationship Specialty Start Date End Date Brandyn Pagan MD PCP - General Internal Medicine 08/07/15 02/02/17 Radha Spangler NP PCP - Backup PCP Internal Medicine 01/11/16 02/02/17 Unknown Pcp, Non Rmg PCP - General 02/03/17 documented as of this encounter
--- OUTSIDE RECORDS SUMMARY | 2024-07-10 12:05 | XMS_ITS | Clinical Summary ---
Author Organization [facility] Address [address] [place] [address] Care Team Providers Care Filbert Grower Name Role Phone Bijal Fox NP Primary Care Provider [phone] Allergies Active Allergy Reactions Criticality Noted Date Comments Lansoprazole Indigestion Medium Ukbjuvl-Hen-Sln Reductase Inhibitors Muscle Pain Medium Per pt [...] on admission by SpO2 88% requiring 3-4L [employer]. Tachypnea with RR increased to 22 RPM. She is not home-O2 dependent. -Wean supplemental O2 as tolerated, presently om room air -Taper steroids -Continue supportive therapy with nebulized bronchodilators, ICS and multiple antitussives. -Avoid increasing Tramadol in setting of COPD/asthma. Assessment & Plan (06/23/2024 4:18 PM EST): Acute Resp Failure: Evidenced on admission by SpO2 88% requiring 3-4L [employer]. Tachypnea with RR increased to 22 RPM. She is not home-O2 dependent. Presently weaned to 2L [employer], but still coarse with rhonchus cough. Reduced IV steroids as no wheezing on exam and she appears tearful and depressed. Continue supportive therapy with nebulized bronchodilators, ICS and multiple antitussives. Avoid increasing Tramadol in setting of COPD/asthma. Assessment & Plan (06/22/2024 5:42 PM EST): Acute Resp Failure: Evidenced on admission by SpO2 88% requiring 3-4L [employer]. Tachypnea with RR increased to 22 RPM. She is not home-O2 dependent. Presently weaned to 2L [employer], but still coarse with rhonchus cough. Reduced [...] auth. 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/2024 2:30 PM EST Office Visit [address] Cardiology [address] [place] [phone] Mabel Onofre NP Diastolic heart failure, unspecified HF chronicity (HCC) (Primary Dx); Paroxysmal atrial fibrillation (HCC); Pulmonary hypertension (HCC); BILLIE (obstructive sleep apnea); Benign hypertensive heart disease without congestive heart failure 07/03/2024 Telephone [facility] Case Management Department [address] [place] [id number] Mariajose Calvillo RN 07/02/2024 10:05 AM EST Lab [facility] Site Department [address] [place] [id number] 07/01/2024 3:15 PM EST Office Visit [facility] Nephrology [address] [place] [address], 2nd [place] [address] John Hendricks MD Hyperkalemia (Primary Dx); CKD stage 3a, GFR 45-59 ml/min (HCC); Chronic heart failure with preserved ejection fraction (HCC); Primary hypertension 07/01/2024 9:05 AM EST Lab [facility] Site Department [address] [place] [phone] Diastolic heart failure, unspecified HF chronicity (HCC) 07/01/2024 Orders Only [address] Cardiology [address] [place] [phone] Mabel Onofre NP 06/24/[address] Cardiology [address] [place] [id number] Elise Boykin [place] [facility] 06/23/2024 Lab Requisition [facility] Lab [address] [place] [address] Mj Mendenhall MD Pneumonia due to other specified infectious organisms 06/15/2024 7:35 PM EST - 06/26/2024 6:09 PM EST Hospital Encounter [facility] [address] [address] Kevin Newsome MD Devineni, Praveen, MD Discharge Disposition: Home with Services (06) 06/02/2024 12:57 PM EST - 06/04/2024 3:30 PM EST Emergency [facility] [address] [address] Govind Glez MD Cebula, Maria, MD Colucci, Joseph M, MD Silva, Joshua T, MD Nesanelis, David, MD Generalized weakness (Primary Dx) Discharge Disposition: [facility] Facility (03) from Last 3 Months Immunizations [...] drink = 0.6 oz pur e alcohol) [facility] Utilities Answer Date Recorded In the [...] Upcoming Encounters Date Type Department Care Team ([facility] Contact Info) Description 08/01/2024 2:00 PM EDT Follow-Up [facility] Nephrology [address] [place] [address] [address] [place] [address] John Hendricks MD [address] [place] [address] 01/08/2025 10:00 AM EDT Follow-Up [address] Cardiology [address] [place] [address] Mabel Onofre NP [address] [phone] Health Maintenance Due Date Last Done Comments [...] complete this topic Procedures * Due to [place] state law, this organization might not be [...] to Health Maintenance Results * Due to [place] state law, this organization might not be sharing negative HIV tests. * (ABNORMAL) Microscopic Urinalysis Only (07/02/2024 9:17 AM EST) RBC, Urine 5-10(A) None Seen, 0-2 /HPF 07/02/2024 10:07 AM EST [facility] WBC, Urine 0-2 None Seen, 0-2 /HPF 07/02/2024 10:07 AM EST [facility] Squamous Epithelial Cells, Urine 0-2 /HPF 07/02/2024 10:07 AM EST [facility] Bacteria, Urine Occasional (A) None Seen /HPF 07/02/2024 10:07 AM EST [facility] Urine Urine specimen collection, clean catch / Unknown Non-Blood Collection / Unknown 07/02/2024 9:17 AM EST 07/02/2024 9:36 AM EST John Hendricks MD LAB URINE ORDERABLES Final Resul t [facility] [address] [place] [address] [address] [place] [address], * (ABNORMAL) Urinalysis W/Reflex to Microscopic (No Culture) (07/02/2024 9:17 AM EST) Color, Urine Yellow Yellow 07/02/2024 9:44 AM EST [facility] Clarity, Urine Clear Clear 07/02/2024 9:44 AM EST [facility] Specific Central, Urine 1.015 1.005 - 1.030 07/02/2024 9:44 AM EST [facility] pH, Urine 5.5 5.0 - 8.0 07/02/2024 9:44 AM EST [facility] Protein, Urine Negative Negative mg/dL 07/02/2024 9:44 AM EST [facility] Glucose, Urine Negative Negative mg/dL 07/02/2024 9:44 AM EST [facility] Ketones, Urine Negative Negative mg/dL 07/02/2024 9:44 AM EST [facility] Bilirubin, Urine Negative Negative 07/02/2024 9:44 AM EST [facility] Blood, Urine Small(A) Negative 07/02/2024 9:44 AM EST [facility] Nitrite, Urine Negative Negative 07/02/2024 9:44 AM EST [facility] Urobilinogen, Urine 0.2 0.2 - 1.0 E.U./dL 07/02/2024 9:44 AM EST [facility] Leukocyte Esterase, Urine Small(A) Negative 07/02/2024 9:44 AM EST [facility] Urine Urine specimen collection, clean catch / Unknown Non-Blood Collection / Unknown 07/02/2024 9:17 AM EST 07/02/2024 9:36 AM EST John Hendricks MD LAB URINE ORDERABLES Final Resul t [facility] [address] [place] [address] [address] [place] [address], [place] [phone] * (ABNORMAL) SPEP (Protein Electrophoresis w/Reflex to [...] - 07/04/2024 8:59 AM EST [facility] Received Date:[id number] John Hendricks MD LAB BLOOD ORDERABLES Final Resul t HILARY DAVID [address] [place] [address] 3rd Floor, [place] [address], [place] [phone] * Hemoglobin and Hematocrit (07/02/2024 9:17 AM EST) Hemoglobin 12.0 11.7 - 15.5 g/dL 07/02/2024 9:38 AM EST [facility] Hematocrit 37.1 35.7 - 45.8 % 07/02/2024 9:38 AM EST [facility] Blood Structure of peripheral vein / Unknown Venipuncture / Unknown 07/02/2024 9:17 AM EST 07/02/2024 9:29 AM EST John Hendricks MD LAB BLOOD ORDERABLES Final Resul t [facility] [address] [place] [address] [address] [place] [address], [place] [phone] * Microalbumin, Random Urine with Creatinine (07/02/2024 9:17 AM EST) Creatinine, Urine 55 mg/dL 07/02/2024 2:41 PM EST [facility] Microalbumin, Urine 4 <=20 mg/L 07/02/2024 2:41 PM EST [facility] Microalb/Creat Ratio, Random Urine 7.3 1.3 - 30.0 mg/g 07/02/2024 2:41 PM EST [facility] Urine Voided urine specimen / Unknown Non-Blood Collection / Unknown 07/02/2024 9:17 AM EST 07/02/2024 9:36 AM EST John Hendricks MD LAB URINE ORDERABLES Final Resul t Performing Organization Address [facility] Co de Phone Number [facility] [address] [address], [place] [phone] * Protein, Random Urine with Creatinine (07/02/2024 9:17 AM EST) Protein, Urine 6 mg/dL 07/02/2024 2:41 PM EST [facility] Creatinine, Urine 55 mg/dL 07/02/2024 2:41 PM EST [facility] Protein/Creati nine Ratio 109 <200 mg/gmCr 07/02/2024 2:41 PM EST [facility] Urine Voided urine specimen / Unknown Non-Blood Collection / Unknown 07/02/2024 9:17 AM EST 07/02/2024 9:36 AM EST us John Hendricks MD LAB URINE ORDERABLES Final Resul t Performing Organization Address [facility] Co de Phone Number [facility] [address] [address], [place] [phone] * (ABNORMAL) Vitamin D, 25-Hydroxy, Total, Immunoassay (07/02/2024 9:17 AM EST) Only the most recent of2 resultswithin the time period is included. Vitamin D 25-OH 22.50(L) 30.00 - 80.00 ng/mL 07/02/2024 11:24 AM EST [facility] Blood Structure of peripheral vein / Unknown Venipuncture / Unknown 07/02/2024 9:17 AM EST 07/02/2024 9:29 AM EST us John Hendricks MD LAB BLOOD ORDERABLES Final Resul t Performing Organization Address [facility] Co de Phone Number [facility] [address] [address], [place] [phone] * (ABNORMAL) PTH, Intact (without Calcium) (07/02/2024 9:17 AM EST) Parathyroid Hormone, Intact 226.0(H) 14.5 - 87.1 pg/mL 07/02/2024 11:19 AM EST [facility] Comment: This test was performed using the chemiluminescent immunoassay (CLIA) intended for the quantitative determination of intact human parathyroid hormone method on the DIASORollad LIAISON. Values obtained from different assay methods cannot be used interchangeably. Assay results should be utilized in conjunction with other clinical and laboratory data Blood Structure of peripheral vein / Unknown Venipuncture / Unknown 07/02/2024 9:17 AM EST 07/02/2024 9:29 AM EST us John Hendricks MD LAB BLOOD ORDERABLES Final Resul t Performing Organization Address [facility]/ZIP Co de Phone Number [facility] [address] [place] [address], [place] [phone] * Magnesium (07/02/2024 9:17 AM EST) Pathologist [facility] MG 1.9 1.5 - 2.5 mg/dL 07/02/2024 10:01 AM EST [facility] Blood Structure of peripheral vein / Unknown Venipuncture / Unknown 07/02/2024 9:17 AM EST 07/02/2024 9:29 AM EST us John Hendricks MD LAB BLOOD ORDERABLES Final Resul t [facility] [address] [address], [place] [phone] * (ABNORMAL) Renal Function Panel (07/02/2024 9:17 AM EST) Pathologist [facility] NA 138 136 - 145 mmol/L 07/02/2024 10:02 AM EST [facility] K 4.4 3.5 - 5.1 mmol/L 07/02/2024 10:02 AM EST [facility] Comment:ALL DELTAS REVIEWED Cl 101 98 - 109 mmol/L 07/02/2024 10:02 AM EST [facility] CO2 26 22 - 32 mmol/L 07/02/2024 10:02 AM [facility] Anion Gap 15 >=0 07/02/2024 10:02 AM EST [facility] Glucose 115(H) 60 - 99 mg/dL 07/02/2024 10:02 AM [facility] BUN 37(H) 8 - 23 mg/dL 07/02/2024 10:02 AM [facility] Creatinine 1.47(H) 0.50 - 1.12 mg/dL 07/02/2024 10:02 AM [facility] Calcium 8.8 8.4 - 10.4 mg/dL 07/02/2024 10:02 AM [facility] Phosphorus 3.6 2.5 - 4.5 mg/dL 07/02/2024 10:02 AM [facility] Albumin 3.8 3.5 - 5.0 g/dL 07/02/2024 10:02 AM [facility] eGFR 38(L) >=60 mL/min/1. 73m2 07/02/2024 10:02 AM [facility] Comment:The estimated glomer ular filtration rate [...] Final Resul t Performing Organization Address City/[facility]/ZIP Co de Phone Number [facility] [address] [address], * N-terminal ProBrain Natriuretic Peptide (07/01/2024 8:39 AM EST) Only the most recent of5 resultswithin the time period is included. Pro-B-Type Natriuretic Peptide 288 <=900 pg/mL 07/01/2024 9:39 AM EST [facility] Comment: RULE IN CHF [...] BLOOD ORDERABLES Final Result Performing Organization Address City/[facility]/ZIP Co de Phone Number [facility] [address] [address], * (ABNORMAL) Basic metabolic panel (07/01/2024 8:39 AM EST) Only the most recent of11 resultswithin the time period is included. NA 140 136 - 145 mmol/L 07/01/2024 9:36 AM EST [facility] K 5.3(H) 3.5 - 5.1 mmol/L 07/01/2024 9:36 AM EST [facility] Cl 102 98 - 109 mmol/L 07/01/2024 9:36 AM EST [facility] CO2 29 22 - 32 mmol/L 07/01/2024 9:36 AM EST [facility] BUN 34(H) 8 - 23 mg/dL 07/01/2024 9:36 AM EST [facility] Creatinine 1.27(H) 0.50 - 1.12 mg/dL 07/01/2024 9:36 AM EST [facility] Glucose 113(H) 60 - 99 mg/dL 07/01/2024 9:36 AM EST [facility] Calcium 8.9 8.4 - 10.4 mg/dL 07/01/2024 9:36 AM EST [facility] Anion Gap 14 >=0 07/01/2024 9:36 AM EST [facility] eGFR 45(L) >=60 mL/min/1. 73m2 07/01/2024 9:36 AM EST [facility] Comment:The estimated glomer ular [...] EST 07/01/2024 9:04 AM EST Mabel Onofre [employer] LAB BLOOD ORDERABLES Final Result [facility] [address] [facility] [address] [place] [address], * X-Ray Abdomen 1 View (06/26/2024 12:39 [...] obtain the completed interpretation. ? Workstation ID: [id number] Narrative 06/26/2024 2:05 PM EST EXAMINATION: ??XR ABDOMEN 1 VW INDICATION: RLQ abdominal pain, constipation COMPARISONS: None Resulting Agency Comment [id number] Procedure Note Calvin Katz MD - 06/26/2024 [...] possible to obtain thecompleted interpretation. Workstation ID: [id number] us Tia Oh [employer] IMG XR PROCEDURES Final Result * (ABNORMAL) CBC (06/26/2024 6:22 AM EST) Only the most recent of5 resultswithin the time period is included. WBC 15.0(H) 4.8 - 10.8 10*3/uL 06/26/2024 6:42 AM EST [facility] RBC 4.51 4.20 - 5.40 10*6/uL 06/26/2024 6:42 AM EST [facility] Hemoglobin 13.1 11.7 - 15.5 g/dL 06/26/2024 6:42 AM EST [facility] Hematocrit 40.5 35.7 - 45.8 % 06/26/2024 6:42 AM EST [facility] MCV 89.8 81.0 - 99.0 fL 06/26/2024 6:42 AM EST [facility] MCH 29.0 26.0 - 34.0 pg 06/26/2024 6:42 AM EST [facility] MCHC 32.3 31.0 - 36.0 g/dL 06/26/2024 6:42 AM EST [facility] RDW 13.2 12.0 - 15.0 % 06/26/2024 6:42 AM EST [facility] Platelets 220 140 - 440 10*3/uL 06/26/2024 6:42 AM EST [facility] MPV 9.4 9.4 - 12.3 fL 06/26/2024 6:42 AM EST [facility] RDW Standard Deviation 43.5 36.4 - 46.3 fL 06/26/2024 6:42 AM EST [facility] Blood Structure of peripheral vein / Unknown Venipuncture / Unknown 06/26/2024 6:22 AM EST 06/26/2024 6:39 AM EST Olivia Arteaga [employer] LAB BLOOD ORDERABLES Final Result [facility] [address] [place] [address] [address] [place] [address], [place] [phone] * ECG 12 lead (06/24/2024 9:50 AM EST) Only the most recent of4 resultswithin the time period is included. Ventricular Rate EKG 73 BPM MUSE EKG Atrial Rate 73 BPM MUSE EKG IN Interval 228 ms MUSE EKG QRS Interval 128 ms MUSE EKG QT Interval 384 ms MUSE EKG QTC Interval 423 ms MUSE EKG P [place] 65 degrees MUSE EKG R [place] 41 degrees MUSE EKG T Wave [place] 61 degrees MUSE EKG 06/24/2024 9:50 AM EST 06/24/2024 5:36 PM EST Impressions MUSE EKG - 06/24/2024 5:36 PM EST Sinus rhythm with 1st degree AV block with occasional premature ventricular complexes Nonspecific intraventricular block When compared with ECG of 21-JUN-2024 07:26, No significant change was found Confirmed by Stephanie Hampton ([id number]) on 06/24/2024 5:36:28 PM us Olivia Arteaga [employer] ECG ORDERABLES Final Resul t MUSE EKG * (ABNORMAL) Potassium (06/23/2024 10:05 AM EST) K 5.6(H) 3.5 - 5.1 mmol/L 06/23/2024 10:58 AM EST [facility] Comment:REVIEWED Blood Structure of peripheral vein / Unknown Venipuncture / Unknown 06/23/2024 10:05 AM EST 06/23/2024 10:36 AM EST Narrative [facility] - 06/23/2024 10:58 AM EST Please check heparinized potassium, TY. Sydney David [employer] LAB BLOOD ORDERABLES Final Result Performing Organization Address City/[facility] Co de Phone Number [facility] [address] [place] [address] [address] [place] [address], [place] [phone] * X-Ray Chest 2 Views (06/22/2024 4:27 [...] obtain the completed interpretation. ? Workstation ID: [id number] Narrative 06/24/2024 9:35 AM EST COMPARISON: ??06/18/2024 FINDINGS AND Resulting Agency Comment [id number] Procedure Note Calvin Katz MD - 06/24/2024 COMPARISON: 06/18/2024 FINDINGS AND IMPRESSION: Interval clearing of prior LLL infiltrate/atelectasis. Lungs and pleuralspaces now clear. Heart size remains normal. If this radiology report contains a blank impression section, it is anincomplete radiology report. Please contact the interpreting radiologistor applicable radiology division as soon as possible to obtain thecompleted interpretation. Workstation ID: [id number] us Sydney David [employer] IMG XR PROCEDURES Final Res ult * Lavender Top (06/22/2024 6:53 AM EST) Only the most recent of2 resultswithin the time period is included. Extra Tube Hold for add-ons. 06/22/2024 11:05 AM EST [facility] Comment:Auto resulted. Blood Structure of peripheral vein / Unknown 06/22/2024 6:53 AM EST 06/22/2024 6:53 AM EST us Mj Mendenhall MD LAB BLOOD ORDERABLES Final R esult [facility] [address] [facility] [address] [place] [address], [place] [phone] * Troponin T, High Sensitivity (06/20/2024 10:19 AM EST) Only the most recent of3 resultswithin the time period is included. Troponin T High Sensitivity 14 6 - 14 ng/L 06/20/2024 11:08 AM EST [facility] Comment: Sb-Epagpjoh-D level of 52 ng/L or higher at [...] be evaluated in line with the 4th [place] Definition of AMI. Troponin baseline and serial [...] ORDERABLES Final R esult Performing Organization Address City/[facility]/ZIP Co de Phone Number [facility] [address] [address], * (ABNORMAL) Respiratory Culture (06/20/2024 7:37 AM EST) Respiratory Culture Moderate Rayna albicans(A) [facility] 06/22/2024 11:29 AM EST [facility] Gram Stain Result <25 per LPF White Blood Cells Seen 06/22/2024 11:29 AM EST [facility] Gram Stain Result <10 per LPF Epithelial Cells 06/22/2024 11:29 AM EST [facility] Gram Stain Result Rare Gram Positive Cocci in pairs 06/22/2024 11:29 AM EST [facility] Sputum Sputum / Unknown Non-Blood Collection / Unknown 06/20/2024 7:37 AM EST 06/20/2024 7:54 AM EST Narrative [facility] - 06/22/2024 11:29 AM EST Many normal respiratory beena present. Rosanna Oh [employer] LAB MICROBIOLOGY - GENERAL ORDER RHINA Final Result Performing Organization Address City/[facility]/ZIP Co de Phone Number [facility] [address] [address], [place] [phone] * Streptococcus Pneumoniae Antigen Urine (06/18/2024 6:44 PM EST) Streptococcus pneumoniae Antigen, Urine Negative Negative [facility] 06/19/2024 8:53 AM EST [facility] Comment: INTERPRETATION: Presumptive negative [...] ORDERABLES Final R esult Performing Organization Address City/[facility]/ZIP Co de Phone Number [facility] [address] [facility] [address] [place] [address], * Legionella Antigen, Urine (06/18/2024 6:44 PM EST) Legionella pneumophila Urine Ag Negative Negative [facility] 06/19/2024 8:53 AM EST [facility] Comment: INTERPRETATION: Presumptive negative [...] PM EST 06/18/2024 7:15 PM EST Narrative [facility] - 06/19/2024 8:53 AM EST [...] [facility] [address] [place] [address], [place] [phone] * XR Chest Portable 1 View (06/18/2024 [...] obtain the completed interpretation. ? Workstation ID: [id number] Narrative 06/20/2024 10:17 AM EST EXAMINATION: XR CHEST PORTABLE 1 VIEW COMPARISON: CT chest pulmonary angiogram 06/15/2024 and other priors. FINDINGS: Lines/Tubes/Devices: None. Lungs: Redemonstrated left basilar consolidation. Pleura: No pleural effusions or pneumothorax. Heart/Mediastinum: Cardiomediastinal silhouette is similar to prior. Bones/Soft tissues: No acute osseous abnormality. Resulting Agency Comment [id number] Procedure Note Apolonia Nolen MD - 06/20/2024 [...] possible to obtain thecompleted interpretation. Workstation ID: [id number] us Tia Oh [employer] IMG XR PROCEDURES Final Result * (ABNORMAL) CBC Auto Differential (06/17/2024 7:03 AM EST) Only the most recent of3 resultswithin the time period is included. WBC 11.6(H) 4.8 - 10.8 10*3/uL 06/17/2024 7:30 AM EST [facility] RBC 3.94(L) 4.20 - 5.40 10*6/uL 06/17/2024 7:30 AM EST [facility] Hemoglobin 11.7 11.7 - 15.5 g/dL 06/17/2024 7:30 AM EST [facility] Hematocrit 35.4(L) 35.7 - 45.8 % 06/17/2024 7:30 AM [facility] MCV 89.8 81.0 - 99.0 fL 06/17/2024 7:30 AM [facility] MCH 29.7 26.0 - 34.0 pg 06/17/2024 7:30 AM [facility] MCHC 33.1 31.0 - 36.0 g/dL 06/17/2024 7:30 AM [facility] RDW 12.9 12.0 - 15.0 % 06/17/2024 7:30 AM [facility] RDW Standard Deviation 42.6 36.4 - 46.3 fL 06/17/2024 7:30 AM [facility] Platelets 257 140 - 440 10*3/uL 06/17/2024 7:30 AM [facility] Comment:REV IEWED MPV 10.0 9.4 - 12.3 fL 06/17/2024 7:30 AM EST [facility] Neutrophil % 81.6(H) 50.0 - 75.0 % 06/17/2024 7:30 AM EST [facility] Immature Grans % 0.8 0.0 - 0.9 % 06/17/2024 7:30 AM [facility] Lymphocyte % 11.8(L) 20.0 - 44.0 % 06/17/2024 7:30 AM EST [facility] Monocyte % 5.6 0.0 - 14.0 % 06/17/2024 7:30 AM EST [facility] Eosinophil % 0.0 0.0 - 5.0 % 06/17/2024 7:30 AM EST [facility] Basophil % 0.2 0.0 - 2.0 % 06/17/2024 7:30 AM EST [facility] Neutrophil # 9.48(H) 1.80 - 7.70 10*3/uL 06/17/2024 7:30 AM EST [facility] Immature Grans # 0.09(H) 0.00 - 0.03 10*3/uL 06/17/2024 7:30 AM EST [facility] Lymphocyte # 1.40 1.00 - 4.75 10*3/uL 06/17/2024 7:30 AM EST [facility] Monocyte # 0.70(H) 0.00 - 0.60 10*3/uL 06/17/2024 7:30 AM EST [facility] Eosinophil # <0.03 0.00 - 0.80 10*3/uL 06/17/2024 7:30 AM EST [facility] Basophil # <0.03 0.00 - 0.20 10*3/uL 06/17/2024 7:30 AM EST [facility] nRBC % 0.0 0 - 0 /100 WBCs 06/17/2024 7:30 AM EST [facility] nRBC # <0.01 0.00 - 0.13 10*3/uL 06/17/2024 7:30 AM EST [facility] Blood Structure of peripheral vein / Unknown Venipuncture / Unknown 06/17/2024 7:03 AM EST 06/17/2024 7:22 AM EST us Mj Mendenhall MD LAB BLOOD ORDERABLES Final R esult [facility] [address] [facility] [address] [place] [address], * TSH (06/17/2024 7:03 AM EST) Only the most recent of2 resultswithin the time period is included. TSH 0.874 0.270 - 4.200 uIU/mL 06/17/2024 2:31 PM EST [facility] Comment: Females: 1st trimester ? 0.150-4.000 ??IU/mL 2nd trimester ?? 0.310-4.170 ?IU/mL 3rd trimester ?0.380-4.150 ?IU/mL Blood Structure of peripheral vein / Unknown Venipuncture / Unknown 06/17/2024 7:03 AM EST 06/17/2024 7:23 AM EST us Tia Oh SUPERVISOR [employer]IPPING LAB BLOOD ORDERABLES Final Resul t [facility] [address] [place] [address] [address] [place] [address], * (ABNORMAL) Comprehensive Metabolic Panel (06/17/2024 7:03 AM EST) Only the most recent of2 resultswithin the time period is included. NA 139 136 - 145 mmol/L 06/17/2024 8:07 AM EST [facility] K 5.1 3.5 - 5.1 mmol/L 06/17/2024 8:07 AM EST [facility] Cl 106 98 - 109 mmol/L 06/17/2024 8:07 AM EST [facility] CO2 23 22 - 32 mmol/L 06/17/2024 8:07 AM EST [facility] Anion Gap 15 >=0 06/17/2024 8:07 AM EST [facility] Glucose 111(H) 60 - 99 mg/dL 06/17/2024 8:07 AM EST [facility] Creatinine 0.99 0.50 - 1.12 mg/dL 06/17/2024 8:07 AM EST [facility] Calcium 9.4 8.4 - 10.4 mg/dL 06/17/2024 8:07 AM EST [facility] Total Protein 6.8 6.6 - 8.7 g/dL 06/17/2024 8:07 AM EST [facility] Albumin 4.0 3.5 - 5.0 g/dL 06/17/2024 8:07 AM [facility] Bilirubin, Total 0.1(L) 0.2 - 1.2 mg/dL 06/17/2024 8:07 AM EST [facility] Alkaline Phosphatase 109 40 - 129 U/L 06/17/2024 8:07 AM [facility] AST 23 0 - 33 U/L 06/17/2024 8:07 AM EST [facility] ALT 26 <=33 U/L 06/17/2024 8:07 AM [facility] BUN 27(H) 8 - 23 mg/dL 06/17/2024 8:07 AM EST [facility] eGFR 61 >=60 mL/min/1. 73m2 06/17/2024 8:07 AM [facility] Comment:The estimated glomer ular filtration rate [...] - 4.2 g/dL 06/17/2024 8:07 AM EST [facility] A/G Ratio 1.4(L) 1.5 - 3.0 06/17/2024 8:07 AM EST [facility] Blood Structure of peripheral vein / Unknown Venipuncture / Unknown 06/17/2024 7:03 AM EST 06/17/2024 7:23 AM EST us Mj Mendenhall MD LAB BLOOD ORDERABLES Final R esult Performing Organization Address [facility] [place] [facility] Co de Phone Number [facility] [address] [address], * Light Green Top (06/16/2024 7:54 AM EST) Pathologist [facility] Extra Tube Hold for add-ons. 06/16/2024 12:05 PM EST [facility] Comment:Auto resulted. Blood Structure of peripheral vein / Unknown 06/16/2024 7:54 AM EST 06/16/2024 7:54 AM EST Mj Mendenhall MD LAB BLOOD ORDERABLES Final R esult Performing Organization Address [facility] [place] [facility] Co de Phone Number [facility] [address] [address], * Mycoplasma pneumoniae Antibodies, IgG/IgM (06/16/2024 7:42 AM EST) Pathologist [facility] M. pneumoniae Ab, IgG <=0.90 <=0.90 06/19/2024 10:04 PM EST [facility] JUAN HARVEY) Comment: ? Reference Range: ? [...] <770 U/mL 06/19/2024 10:04 PM EST [facility]) Comment: Reference Range: ?<770 U/ml ?Negative [...] BLOOD ORDERABLES Final R esult HILARY DAVID [address] [place] [address] 3rd Floor, [place] [address], [facility] [employer]) [address] [place] [address], [place] * CT Chest PE (06/15/2024 11:49 [...] obtain the completed interpretation. ? Workstation ID: [id number] Up-to-date CT equipment and radiation dose reduction [...] possible to obtain thecompleted interpretation. Workstation ID: [id number] Up-to-date CT equipment and radiation dose reduction techniques wereemployed. CTDIvol: .8 - 21.4 mGy. DLP: 802 mGy-cm. us Kevin Newsome MD IMG CT PROCEDURES Final Result * Blood Culture (06/15/2024 10:17 PM EST) Only the most recent of2 resultswithin the time period is included. Pathologist [facility] Blood Culture No growth after 5 days 06/20/2024 11:05 PM EST [facility] Blood Structure of peripheral vein / Unknown Venipuncture / Unknown 06/15/2024 10:17 PM EST 06/15/2024 10:39 PM EST us Kevin Newsome MD LAB MICROBIOLOGY - GENERAL ORDER RHINA Final Result Performing Organization Address [facility] Phone Number [address] [address], [place] [phone] * Lactic Acid, Plasma (06/15/2024 10:17 PM EST) Pathologist [facility] Lactic Acid 0.7 0.5 - 2.2 mmol/L 06/15/2024 11:02 PM EST [facility] Blood Structure of peripheral vein / Unknown Venipuncture / Unknown 06/15/2024 10:17 PM EST 06/15/2024 10:31 PM EST us Kevin Newsome MD LAB BLOOD ORDERABLES Final Resul t Performing Organization Address [facility] Co de Phone Number [address] [address], [place] [phone] * (ABNORMAL) Blood gas, venous (06/15/2024 10:17 PM EST) pH, Venous 7.24(LL) 7.35 - 7.45 06/16/2024 2:54 AM EST [facility] RT pCO2, Venous 57.0 mm[Hg] 06/16/2024 2:54 AM EST [facility] RT pO2, Keegan 138.0 mm[Hg] 06/16/2024 2:54 AM EST [facility] RT HCO3, Venous 22 mmol/L 06/16/2024 2:54 AM EST [facility] RT O2 Sat, Venous 97.8 % 06/16/2024 2:54 AM EST [facility] RT Base Excess, Keegan -3.6 mmol/L 06/16/2024 2:54 AM EST [facility] RT Blood Structure of peripheral vein / Unknown Venipuncture / Unknown 06/15/2024 10:17 PM EST 06/16/2024 2:52 AM EST us Kevin Newsome MD LAB BLOOD ORDERABLES Final Resul t [facility] RT [address] [place] [address], * COVID-19, Flu A/B & RSV RNA PCR, Symptomatic (06/15/2024 7:58 PM EST) PCR, SARS CoV-2 RNA Not Detected Not Detected [employer] 06/15/2024 8:48 PM EST [facility] Flu A RNA PCR Not Detected Not Detected [employer] 06/15/2024 8:48 PM EST [facility] Flu B RNA PCR Not Detected Not Detected [employer] 06/15/2024 8:48 PM EST [facility] RSV RNA PCR Not Detected Not Detected [employer] 06/15/2024 8:48 PM EST [facility] Comment: Limitations: This RSV test [...] PM EST 06/15/2024 8:09 PM EST Narrative [facility] - 06/15/2024 8:48 PM EST Methodology: The Premise GeneXpert CoV-2/Flu/RSV plus assay is For Use Under an Emergency Use Authorization (EUA) Only with [employer]. The CoV-2/Flu/RSV plus assay is a [...] FLUIDS AND STOOLS O RDERABLES Final Result [facility] [address] [facility] [address] [place] [address], [place] [phone] * HEART & VASCULAR - SCANNED (06/15/2024) [...] Estimated 70 % EF 2D 70 % [facility] RV TISSUE DOPPLER S' 11.0 cm/s RIGHT [...] DVT/PE) (06/03/2024 4:10 PM EST) Pathologist [facility] D-Dimer, Quantitative 0.54(HH) 0.10 - 0.49 mg/L FEU 06/03/2024 4:45 PM EST [facility] Comment:A D-DIMER VALUE OF < 0.50 ug/FEU/mL HAS A STRONG NEGATIVE PREDICTIVE VALUE FOR EXCLUSION OF PULMONARY EMBOLIC AND DEEP VEIN THROMBOSIS. CLINICAL CORRELATION IS INDICATED. Blood Structure of peripheral vein / Unknown Venipuncture / Unknown 06/03/2024 4:10 PM EST 06/03/2024 4:15 PM EST us Calvin Fontenot MD LAB BLOOD ORDERABLES Final R esult [facility] [address] [place] [address], * [place] Lower Extremity Venous Left (06/03/2024 [...] obtain the completed interpretation. ? Workstation ID: [id number] Narrative 06/03/2024 3:48 PM EST EXAMINATION: US [...] identified behind the knee Resulting Agency Comment [id number] Procedure Note Sonny Valdivia MD - 06/03/2024 [...] possible to obtain thecompleted interpretation. Workstation ID: [id number] Calvin Fontenot MD [facility] US PROCEDURES Final Resu lt * Rapid COVID-19, FLU A, FLU B & RSV RNA PCR, Symptomatic (ED ONLY) (06/03/2024 3:02 PM EST) Pathologist [facility] PCR, SARS CoV-2 RNA Not Detected Not Detected [employer] 06/03/2024 3:48 PM EST [facility] Flu A RNA PCR Not Detected Not Detected [employer] 06/03/2024 3:48 PM EST [facility] Flu B RNA PCR Not Detected Not Detected [employer] 06/03/2024 3:48 PM EST [facility] RSV RNA PCR Not Detected Not Detected [employer] 06/03/2024 3:48 PM EST [facility] Comment: Limitations: This RSV test [...] 3:02 PM EST 06/03/2024 3:06 PM EST [facility] - 06/03/2024 3:48 PM EST Methodology: The Cep[employer] GeneXpert CoV-2/Flu/RSV plus assay is For Use Under an Emergency Use Authorization (EUA) Only with [employer]. The CoV-2/Flu/RSV plus assay is a [...] FLUIDS AND STOOLS O RDERABLES Final Result [facility] [address] [facility] [address] [place] [address], [place] [phone] * CT Lumbar Spine WO Contrast (06/02/2024 [...] obtain the completed interpretation. ? Workstation ID: [id number] Up-to-date CT equipment and radiation dose reduction techniques were employed. CTDIvol: 22.2 - 54.3 mGy. DLP: 3111 mGy-cm. ??The following accession numbers are related to this dose report [id number]: [id number] Narrative 06/02/2024 7:00 PM EST COMPARISON: None available. FINDINGS: There is no evidence of acute compression fracture. ??Alignment is maintained. ?? 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 ??Severe degenerative changes are seen most severe at L3-4. ??Paraspinous soft tissues are unremarkable. ??Incidental 1.5 cm splenic artery aneurysm Resulting Agency Comment [id number] Procedure Note Luis Mayfield MD - 06/02/2024 [...] possible to obtain thecompleted interpretation. Workstation ID: [id number] Up-to-date CT equipment and radiation dose reduction techniques wereemployed. CTDIvol: 22.2 - 54.3 mGy. DLP: 3111 mGy-cm. The followingaccession numbers are related to this dose report [id number]: [id number] Govind Glez MD IMG CT PROCEDURES Final [...] obtain the completed interpretation. ? Workstation ID: [id number] Up-to-date CT equipment and radiation dose reduction techniques were employed. CTDIvol: 22.2 - 54.3 mGy. DLP: 3111 mGy-cm. ??The following accession numbers are related to this dose report [id number]: [id number] Up-to-date CT equipment and radiation dose reduction techniques were employed. CTDIvol: 22.2 - 54.3 mGy. DLP: 3111 mGy-cm. ??The following accession numbers are related to this dose report [id number]: [id number] Narrative 06/02/2024 6:31 PM EST COMPARISON: 04/28/2016. [...] are within normal limits. Resulting Agency Comment [id number] Procedure Note Luis Mayfield MD - 06/02/2024 [...] possible to obtain thecompleted interpretation. Workstation ID: [id number] Up-to-date CT equipment and radiation dose reduction techniques wereemployed. CTDIvol: 22.2 - 54.3 mGy. DLP: 3111 mGy-cm. The followingaccession numbers are related to this dose report [id number]: [id number] Up-to-date CT equipment and radiation dose reduction techniques wereemployed. CTDIvol: 22.2 - 54.3 mGy. DLP: 3111 mGy-cm. The followingaccession numbers are related to this dose report [id number]: [id number] Govind Glez MD IM CT PROCEDURES Final [...] obtain the completed interpretation. ? Workstation ID: [id number] Up-to-date CT equipment and radiation dose reduction techniques were employed. CTDIvol: 22.2 - 54.3 mGy. DLP: 3111 mGy-cm. ??The following accession numbers are related to this dose report [id number]: [id number] Up-to-date CT equipment and radiation dose reduction techniques were employed. CTDIvol: 22.2 - 54.3 mGy. DLP: 3111 mGy-cm. ??The following accession numbers are related to this dose report [id number]: [id number] Narrative 06/02/2024 6:31 PM EST COMPARISON: 04/28/2016. [...] are within normal limits. Resulting Agency Comment [id number] Procedure Note Luis Mayfield MD - 06/02/2024 [...] possible to obtain thecompleted interpretation. Workstation ID: [id number] Up-to-date CT equipment and radiation dose reduction techniques wereemployed. CTDIvol: 22.2 - 54.3 mGy. DLP: 3111 mGy-cm. The followingaccession numbers are related to this dose report [id number]: [id number] Up-to-date CT equipment and radiation dose reduction techniques wereemployed. CTDIvol: 22.2 - 54.3 mGy. DLP: 3111 mGy-cm. The followingaccession numbers are related to this dose report [id number]: [id number] Govind Glez MD IM CT PROCEDURES Final [...] were monitored continuously. The CFQ-160L Olympuss[employer] # [id number] was introduced through the anus and advanced [...] Most Recently Relevant to Health Maintenance Insurance [facility] AARP Advance Directives Documents on File Type Date Recorded Patient Kettle Chipper Expl anation Advance Directive 08/06/2013 12:00 AM [...] 1:19 AM 06/04/2024 5:36 PM Care Teams Filbert Grower Relationship Specialty Start Date End Date Bijal Fox, SUPERVISOR STRIPPING [address] [place] [address] PCP - General Family Medicine 05/30/24
--- OUTSIDE RECORDS SUMMARY | 2024-07-10 12:05 | XMS_ITS | Encounter Summary ---
Author Organization [facility] Address [address] [place] [address] Care Team Providers Care Laundry Marker Supervisor Name Role Phone Brandyn Pagan MD Primary Care Provider Radha Cuevas NP Unavailable Unavailable Unknown Pcp, Non Rmg Primary Care Provider Unava ilable Encounter Details Date Type Department Care Team (Late st Contact Info) Description 01/12/2017 Orders Only [facility] [address] [place] [address] Brandyn Pagan MD Social History Tobacco Use [...] of this encounter Procedures * Due to [place] law, this organization might not be sharing negative HIV tests. Procedure Name Priority Date/Time Associated Diagnosis Comments URINALYSIS, DIP ONLY STAT (All results called to provider) 01/12/2017 12:59 PM EDT Frequency of urination CULTURE, URINE, ROUTINE Routine 01/12/2017 12:22 PM EDT Frequency of urination URINALYSIS, MICROSCOPIC Routine 01/12/2017 12:22 PM EDT Frequency of urination documented in this encounter Results * Due to [place] law, this organization might not be sharing negative HIV tests. * URINALYSIS, DIP ONLY ( SITE STAT ONLY) (01/12/2017 12:59 PM EDT) COLOR (URINE) YELLOW [facility] (CLIA# [id number]) APPEARANCE (URINE) CLEAR Clear [facility] (CLIA# [id number]) SPECIFIC GRAVITY 1.005 1.001 - 1.035 [facility] (CLIA# [id number]) PH (URINE) 7.0 5.0 - 8.0 [facility] (CLIA# [id number]) PROTEIN (URINE) NEG Neg [facility] (CLIA# [id number]) GLUCOSE (URINE) NEG Neg [facility] (CLIA# [id number]) Ketones (Urine) NEG Neg [facility] (CLIA# [id number]) BILIRUBIN (URINE) NEG Neg [facility] (CLIA# [id number]) BLOOD (URINE) NEG Neg [facility] (CLIA# [id number]) Leukocyte esterase (Urine) NEG Neg [facility] (CLIA# [id number]) NITRITE (URINE) NEG Neg [facility] (CLIA# [id number]) Urine specimen obtained by clean catch procedure (specimen) 01/12/2017 12:59 PM EDT Narrative [facility] (CLIA# [id number]) - 01/12/2017 1:00 PM EDT Micro and culture already ordered per provider. Brandyn Pagan MD LAB SAME DAY RESULT Final Resul t Performing Organization Address [facility] de Phone Number [facility] (CLIA# [id number]) [address] [place] [address] * CULTURE, URINE, ROUTINE (01/12/2017 12:22 PM EDT) Bacteria culture (Urine) SEE NOTE [facility] Comment: ??CULTURE, URINE, ROUTINE ??MICRO NUMBER: ?[id number] ??TEST STATUS: ? FINAL ??SPECIMEN SOURCE: ?? URINE ??SPECIMEN QUALITY: ??ADEQUATE ??RESULT: ?No Growth 01/12/2017 12:2 2 PM EDT 01/12/2017 10:29 PM EDT Narrative Resulting Agency Comment [id number] us Brandyn Pagan MD LABORATORY Final Result Performing Organization Address City/[facility]/ZIP Co de Phone Number [facility] [address] [place] [address] * URINALYSIS, MICROSCOPIC (01/12/2017 12:22 PM EDT) [...] 10:29 PM EDT Narrative Resulting Agency Comment [id number] us Brandyn Pagan MD LAB SAME DAY RESULT Final Resul t Performing Organization Address City/State/[facility] Co de Phone Number [facility] [address] [place] [address] documented in this encounter Visit Diagnoses Diagnosis Frequency of urination Urinary frequency documented in this encounter Care Teams Laundry Marker Supervisor Relationship Specialty Start Date End Date Brandyn Pagan MD PCP - General Internal Medicine 08/07/15 02/02/17 Radha Spangler NP PCP - Backup PCP Internal Medicine 01/11/16 02/02/17 Unknown Pcp, Non Rmg PCP - General 02/03/17 documented as of this encounter
--- OUTSIDE RECORDS SUMMARY | 2024-07-10 12:05 | XMS_ITS | Encounter Summary ---
Author Organization [facility] Address [address] [place] [address] Care Team Providers Care Lpn Or Medical Assistant Name Role Phone Bijal Fox SUPERVISOR [employer] Primary Care Provider [phone] Reason for Visit * Reason Onset Date Comments TCM 06/24/2024 Encounter Details Date Type Department Care Team ([facility] st Contact Info) Description 06/24/[address] Cardiology 100 [facility] [address] [place] [address] Elise Boykin MA TCM Social History Tobacco Use Types Packs/Day Years Used Date Smoking Tobacco: Former Smokeless Tobacco: Never Comments:: Alcohol Use Standard Drinks/Week Comments Not Currently 0 (1 standard drink = 0.6 oz pur e alcohol) [facility] Utilities Answer Date Recorded In the [...] DISCHARGE INFORMATION Genie was discharged from a [facility] Facility on 06/26/24 Last Hospital Admission Date Complaint Diagnosis Type Department Provider 06/15/24 SOB ED to Hosp-Admission (Discharged) (Admit) SB 2 Rogers Mendenhall MD; Kevin eNwsome,... MEDICATION REVIEW The discharge medication list has [...] now? Needs Eliquis script and unable to pickle sorter Lokelma due to cost-message forwarded to Mabel. [...] Info) Description 08/01/2024 2:00 PM EDT Follow-Up [facility] Nephrology [address] [place] [address] [address] [place] [address] John Hendricks MD [address] [address] 01/08/2025 10:00 AM EDT Follow-Up [address] Cardiology [address] [place] [address] Mabel Onofre NP [address] [place] [address] [address] [place] [address] documented as of this encounter Results * Due to [place] state law, this organization might not be sharing negative HIV tests. * N-terminal ProBrain Natriuretic Peptide (07/01/2024 8:39 AM EST) Pro-B-Type Natriuretic Peptide 288 <=900 pg/mL 07/01/2024 9:39 AM EST [facility] Comment: RULE IN CHF >/= 450 [...] EST 07/01/2024 9:05 AM EST Mabel Onofre SUPERVISOR [employer] LAB BLOOD ORDERABLES Final Result [facility] [address] [facility] [address] [place] [address], [place] [phone] * (ABNORMAL) Basic metabolic panel (07/01/2024 8:39 AM EST) NA 140 136 - 145 mmol/L 07/01/2024 9:36 AM EST [facility] K 5.3(H) 3.5 - 5.1 mmol/L 07/01/2024 9:36 AM EST [facility] Cl 102 98 - 109 mmol/L 07/01/2024 9:36 AM EST [facility] CO2 29 22 - 32 mmol/L 07/01/2024 9:36 AM EST [facility] BUN 34(H) 8 - 23 mg/dL 07/01/2024 9:36 AM EST [facility] Creatinine 1.27(H) 0.50 - 1.12 mg/dL 07/01/2024 9:36 AM EST [facility] Glucose 113(H) 60 - 99 mg/dL 07/01/2024 9:36 AM EST [facility] Calcium 8.9 8.4 - 10.4 mg/dL 07/01/2024 9:36 AM EST [facility] Anion Gap 14 >=0 07/01/2024 9:36 AM EST [facility] eGFR 45(L) >=60 mL/min/1. 73m2 07/01/2024 9:36 AM EST [facility] Comment:The estimated glomer ular [...] Onofre NP LAB BLOOD ORDERABLES Final Result [facility] [address] [facility] [address] [place] [address], documented in this encounter Visit Diagnoses Diagnosis Diastolic heart failure, unspecified HF chronicity (HCC)- Primary Atrial fibrillation, unspecified type (HCC) documented in this encounter Care Teams Lpn Or Medical Assistant Relationship Specialty Start Date End Date Bijal Fox NP [address] [facility] [address] [place] [address] PCP - General Family Medicine 05/30/24 documented as of this encounter
--- OUTSIDE RECORDS SUMMARY | 2024-07-10 12:06 | XMS_ITS | Encounter Summary ---
Author Organization [facility] Address [address] [place] [address] Care Team Providers Care Emergency Department Nurse Name Role Phone Brandyn Pagan MD Primary Care Provider Unavaila Radha Fink NP Unavailable Unavailable Unknown Pcp, Non Rmg Primary Care Provider Unava ilable Encounter Details Date Type Department Care Team (Late st Contact Info) Description 09/21/2016 Orders Only [facility] Pre-Admission Testing [address] [facility] [address] [place] [address] Filiberto May MD [address] [place] [address] Social History Tobacco Use Types Packs/Day Years [...] of this encounter Procedures * Due to [place] state law, this organization might not be sharing negative HIV tests. Procedure Name Priority Date/Time Associated Diagnosis Comments BASIC METABOLIC PANEL WITH (GFR) Routine 09/21/2016 1:41 PM EDT BILLIE (obstructive sleep apnea) documented in this encounter Results * Due to [place] state law, this organization might not be [...] approximately 13% higher for people identified as -Pakistani. GFR 50(L) > OR = 60 mL/min/1. [...] needs for GFR calculation. Resulting Agency Comment [id number] us Filiberto May MD LABORATORY Final Result [facility] [address] [place] [address] documented in this encounter Visit Diagnoses Diagnosis BILLIE (obstructive sleep apnea) Obstructive sleep apnea (adult) (pediatric) documented in this encounter Care Teams Emergency Department Nurse Relationship Specialty Start Date End Date Brandyn Pagan MD PCP - General Internal Medicine 08/07/15 02/02/17 Radha Spangler NP PCP - Backup PCP Internal Medicine 01/11/16 02/02/17 Unknown Pcp, Non [facility] PCP - General 02/03/17 documented as of this encounter
--- OUTSIDE RECORDS SUMMARY | 2024-07-10 12:06 | XMS_ITS | Clinical Summary ---
Author Organization [facility] Address [address] [place] [address] Care Team Providers Care Head Of Mobile Name Role Phone Unknown Pcp, Non Rmg [...] however patient is planning on moving to [place] in the next few weeks. She does [...] (when compared with previous ct scan from [facility], but NEW lung nodule R middle lobe 2 mm. Will f/u with screen CT in 1 year HTN 11/02/2015 Cervical spondylosis with radiculopathy 11/02/19 16 Flat foot (pes planus) (acquired), left foot Psoriasis 11/02/2015 Major depression in partial remission 11/02/2015 Overview (12/21/2016): Refer to PCP cpe dated 01/11/16 Psych: Reports anxiety and depression are stable. Sees Dr. Alvarado psychiatrist, in [place]. He prescribes lamotrigine, duloxetine, tramadol, Adderall. 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 Irene Christensen in [place]. Confirmed with their office that she is [...] mos-KLE 08/05 The 10-year ASCVD risk score (Beth SUNDEEP Mejia, et al., 2013) is: 6.1% [...] Radha Spangler NP Procedures * Due to [place] [employer] law, this organization might not be sharing negative HIV tests. Procedure Name Priority Date/Time Associated Diagnosis Comments MAMMOGRAPHY-BILATERAL 06/05/2014 PAP SMEAR 06/05/2014 from Last 3 Months or Most Recently Relevant to Health Maintenance Results * Due to [place] [employer] law, this organization might not be sharing [...] Documents on File Type Date Recorded Patient Time Signal Wirer Expl anation Advance Directives and Living Will 03/11/2016 Care Teams Head Of Mobile Relationship Specialty Start Date End Date Unknown Pcp, Non Rmg PCP - General 02/03/17
--- OUTSIDE RECORDS SUMMARY | 2024-07-10 12:06 | XMS_ITS | Encounter Summary ---
Author Organization [facility] Address [address] [place] [address] Care Team Providers Care Binitrotoluene Operator Name Role Phone Brandyn Pagan MD Primary Care Provider Unavaila Radha Fink NP Unavailable Unavailable Unknown Pcp, Non Rmg Primary Care Provider Unava ilable Encounter Details Date Type Department Care Team (Late st Contact Info) Description 03/18/2016 Orders Only [facility] [address] [place] [address] Radha Spangler NP Social History Tobacco Use [...] this encounter Procedures * Due to [place] [employer] law, this organization might not be sharing [...] this encounter Results * Due to [place] [employer] law, this organization might not be sharing negative HIV tests. * (ABNORMAL) BASIC METABOLIC PANEL WITH (GFR) (03/18/2016 10:02 AM EDT) Glucose 102(H) 65 - 99 mg/dL [facility] Comment: {GLUCOSE {[id number]) ? Fasting reference interval Urea Nitrogen Blood (BUN) 21 7 - 25 mg/dL [facility] Comment:{UREA NITROGEN (BUN) {[id number]) Creatinine 0.95 0.50 - 0.99 mg/dL [facility] Comment: {CREATININE {[id number]) For patients >49 years of age, the reference limit for Creatinine is approximately 13% higher for people identified as -[place]. GFR 63 > OR = 60 mL/min/1 .73m2 [facility] Comment:{eGFR NON-AFR. AMERI CAN {[id number]) GFR () 73 > OR = 60 mL/min/1 .73m2 [facility] Comment:{eGFR AMERIC AN {[id number]) BUN/Creatinine Ratio NOT APPLICABLE (calc) [facility] Comment:{BUN/CREATININE RATI O {[id number]) Sodium 139 135 - 146 mmol/L [facility] Comment:{SODIUM {[id number]) Potassium 4.8 3.5 - 5.3 mmol/L [facility] Comment:{POTASSIUM {[id number]) Chloride 106 98 - 110 mmol/L [facility] Comment:{CHLORIDE {[id number]) Carbon dioxide 25 20 - 31 mmol/L [facility] Comment:{CARBON DIOXIDE {[id number]) Calcium 9.3 8.6 - 10.4 mg/dL [facility] Comment:{CALCIUM {[id number]) 03/18/2016 10:0 2 AM EDT 03/18/2016 [...] needs for GFR calculation. Resulting Agency Comment [id number] Radha Spangler NP LABORATORY Final Result [facility] [address] [place] [address] * (ABNORMAL) CREATINE KINASE (CK), SERUM (03/18/2016 10:02 AM EDT) CPK 196(H) 29 - 143 U/L [facility] Comment:{CREATINE KINASE, TO KENZIE {[id number]) 03/18/2016 10:0 2 AM EDT 03/18/2016 4:21 PM EDT Narrative Resulting Agency Comment [id number] Radha Spangler NP LAB SAME DAY RESULT Final Re sult [facility] [address] [place] [address] * (ABNORMAL) ALANINE AMINOTRANSFERASE (ALT), SERUM (03/18/2016 10:02 AM EDT) ALT (SGPT) 32(H) 6 - 29 U/L [facility] Comment:{ALT {[id number]) 03/18/2016 10:0 2 AM EDT 03/18/2016 4:21 PM EDT Narrative Resulting Agency Comment [id number] Radha Spangler JACQUARD FIXER LAB SAME DAY RESULT Final Re sult Performing Organization Address [facility] Co de Phone Number [facility] [address] [place] [address] * (ABNORMAL) LIPID PANEL WITH REFLEX TO DIRECT LDL (03/18/2016 10:02 AM EDT) Cholesterol 274(H) 125 - 200 mg/dL [facility] Comment:{CHOLESTEROL, TOTAL {[id number]) HDL Cholesterol 74 > OR = 46 mg/dL [facility] Comment:{HDL CHOLESTEROL {[id number]) Triglyceride 165(H) <150 mg/dL [facility] Comment:{TRIGLYCERIDES {[id number]) LDL Cholesterol 167(H) <130 mg/dL (calc) [facility] Comment: {LDL-CHOLESTEROL {[id number]) Desirable range <100 mg/dL for patients with CHD or diabetes and <70 mg/dL for diabetic patients with known heart disease. CHOL/HDL Ratio 3.7 < OR = 5.0 (calc) [facility] Comment:{CHOL/HDLC RATIO {[id number]) Cholesterol Non-HDL 200(H) mg/dL (calc) [facility] Comment: {NON HDL CHOLESTEROL {[id number]) Target for non-HDL cholesterol is 30 mg/dL higher than LDL cholesterol target. 03/18/2016 10:0 2 AM EDT 03/18/2016 4:21 PM EDT Narrative Resulting Agency Comment [id number] Radha Spangler NP LABORATORY Final Result [facility] [address] [place] [address] documented in this encounter Visit Diagnoses Diagnosis Hyperlipidemia, unspecified hyperlipidemia type Essential hypertension with goal blood pressure less than 140/90 documented in this encounter Care Teams Binitrotoluene Operator Relationship Specialty Start Date End Date Brandyn Pagan MD PCP - General Internal Medicine 08/07/15 02/02/17 Radha Spangler NP PCP - Backup PCP Internal Medicine 01/11/16 02/02/17 Unknown Pcp, Non Rmg PCP - General 02/03/17 documented as of this encounter
--- OUTSIDE RECORDS SUMMARY | 2024-07-10 12:06 | XMS_ITS | Referral Summary ---
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 Draw Site Department [address] [place] [address] 07/01/2024 3:15 PM EST Office Visit [facility] Nephrology [address] [place] [address], 2nd [place] [address] John Hendricks MD Hyperkalemia (Primary Dx); CKD stage 3a, GFR 45-59 ml/min (HCC); Chronic heart failure with preserved ejection fraction (HCC); Primary hypertension 07/01/2024 9:05 AM EST Lab [facility] Draw Site Department [address] [place] [id number] Diastolic heart failure, unspecified HF chronicity (HCC) 07/01/2024 Orders Only [address] Cardiology [address] [place] [address] Mabel Onofre NP 06/15/2024 7:35 PM EST - 06/26/2024 6:09 PM EST Hospital Encounter [facility] [address] [address] Kevin Newsome MD Devineni, Praveen, MD Discharge Disposition: Home with Services (06) 06/24/[address] Cardiology [address] [place] [phone] Elise Boykin MA [facility] 06/23/2024 Lab Requisition [facility] Lab [address] [place] [address] Mj Mendenhall MD Pneumonia due to other specified infectious organisms 06/02/2024 12:57 PM EST - 06/04/2024 3:30 PM EST Emergency [facility] [address] [address] Govind Glez MD Cebula, Maria, MD Colucci, Joseph M, MD Silva, Joshua T, MD Nesanelis, David, MD Generalized weakness (Primary Dx) Discharge Disposition: Jail Facility (03) from Last 3 Months Allergies Active Allergy Reactions Criticality Noted Date Comments Lansoprazole Indigestion Medium Mfistlj-Lij-Tvp Reductase Inhibitors Muscle Pain Medium Per pt [...] discontinued tomorrow. Repeat BMP Diastolic CHF, acute ([facility]) 06/19/2024 Assessment & Plan (06/24/2024 1:48 PM [...] on admission by SpO2 88% requiring 3-4L BATH STEWARD/STEWARDESS. Tachypnea with RR increased to 22 RPM. She is not home-O2 dependent. -Wean supplemental O2 as tolerated, presently om room air -Taper steroids -Continue supportive therapy with nebulized bronchodilators, ICS and multiple antitussives. -Avoid increasing Tramadol in setting of COPD/asthma. Assessment & Plan (06/23/2024 4:18 PM EST): Acute Resp Failure: Evidenced on admission by SpO2 88% requiring 3-4L BATH STEWARD/STEWARDESS. Tachypnea with RR increased to 22 RPM. She is not home-O2 dependent. Presently weaned to 2L BATH STEWARD/STEWARDESS, but still coarse with rhonchus cough. Reduced IV steroids as no wheezing on exam and she appears tearful and depressed. Continue supportive therapy with nebulized bronchodilators, ICS and multiple antitussives. Avoid increasing Tramadol in setting of COPD/asthma. Assessment & Plan (06/22/2024 5:42 PM EST): Acute Resp Failure: Evidenced on admission by SpO2 88% requiring 3-4L BATH STEWARD/STEWARDESS. Tachypnea with RR increased to 22 RPM. She is not home-O2 dependent. Presently weaned to 2L BATH STEWARD/STEWARDESS, but still coarse with rhonchus cough. Reduced [...] auth. Fall precautions Ambulate with assistance A-fib ([facility]) 06/03/2024 Assessment & Plan (06/25/2024 12:39 [...] oz pur e alcohol) [facility] Utilities Answer Date Recorded In the [...] 08/01/2024 2:00 PM EDT Follow-Up [facility] Nephrology 100 [facility] [address] [place] [address] John Hendricks MD [id number] [place] [address] 01/08/2025 10:00 AM EDT Follow-Up [facility] 100 [facility] Cardiology 100 [facility] [address] [place] [address] Mabel Onofre NP 100 [employer] [address] [place] [address] Procedures * Due to [place] state law, this organization might not be [...] to Health Maintenance Results * Due to [place] state law, this organization might not be sharing negative HIV tests. * (ABNORMAL) Microscopic Urinalysis Only (07/02/2024 9:17 AM EST) RBC, Urine 5-10(A) None Seen, 0-2 /HPF 07/02/2024 10:07 AM EST [facility] WBC, Urine 0-2 None Seen, 0-2 /HPF 07/02/2024 10:07 AM EST [facility] Squamous Epithelial Cells, Urine 0-2 /HPF 07/02/2024 10:07 AM EST [facility] Bacteria, Urine Occasional (A) None Seen /HPF 07/02/2024 10:07 AM EST [facility] Urine Urine specimen collection, clean catch / Unknown Non-Blood Collection / Unknown 07/02/2024 9:17 AM EST 07/02/2024 9:36 AM EST John Hendricks MD LAB URINE ORDERABLES Final Resul t [facility] [address] [place] [address] [address] [place] [address], [place] [phone] * (ABNORMAL) Urinalysis W/Reflex to Microscopic (No Culture) (07/02/2024 9:17 AM EST) Color, Urine Yellow Yellow 07/02/2024 9:44 AM EST [facility] Clarity, Urine Clear Clear 07/02/2024 9:44 AM EST [facility] Specific Gentry, Urine 1.015 1.005 - 1.030 07/02/2024 9:44 AM EST [facility] pH, Urine 5.5 5.0 - 8.0 07/02/2024 9:44 AM EST [facility] Protein, Urine Negative Negative mg/dL 07/02/2024 9:44 AM EST [facility] Glucose, Urine Negative Negative mg/dL 07/02/2024 9:44 AM EST [facility] Ketones, Urine Negative Negative mg/dL 07/02/2024 9:44 AM EST [facility] Bilirubin, Urine Negative Negative 07/02/2024 9:44 AM EST [facility] Blood, Urine Small(A) Negative 07/02/2024 9:44 AM EST [facility] Nitrite, Urine Negative Negative 07/02/2024 9:44 AM EST [facility] Urobilinogen, Urine 0.2 0.2 - 1.0 E.U./dL 07/02/2024 9:44 AM EST [facility] Leukocyte Esterase, Urine Small(A) Negative 07/02/2024 9:44 AM EST [facility] Urine Urine specimen collection, clean catch / Unknown Non-Blood Collection / Unknown 07/02/2024 9:17 AM EST 07/02/2024 9:36 AM EST us John Hendricks MD LAB URINE ORDERABLES Final Resul t [facility] [address] [facility] [address] [place] [address], * (ABNORMAL) SPEP (Protein Electrophoresis w/Reflex to [...] ORDERABLES Final Resul t HILARY DAVID [address] [facility] 3rd Floor, [place] [address], [place] [phone] * Hemoglobin and Hematocrit (07/02/2024 9:17 AM EST) Hemoglobin 12.0 11.7 - 15.5 g/dL 07/02/2024 9:38 AM EST [facility] Hematocrit 37.1 35.7 - 45.8 % 07/02/2024 9:38 AM EST [facility] Blood Structure of peripheral vein / Unknown Venipuncture / Unknown 07/02/2024 9:17 AM EST 07/02/2024 9:29 AM EST us John Hendricks MD LAB BLOOD ORDERABLES Final Resul t [facility] [address] [address], [place] [phone] * Microalbumin, Random Urine with Creatinine (07/02/2024 9:17 AM EST) Creatinine, Urine 55 mg/dL 07/02/2024 2:41 PM EST [facility] Microalbumin, Urine 4 <=20 mg/L 07/02/2024 2:41 PM EST [facility] Microalb/Creat Ratio, Random Urine 7.3 1.3 - 30.0 mg/g 07/02/2024 2:41 PM EST [facility] Urine Voided urine specimen / Unknown Non-Blood Collection / Unknown 07/02/2024 9:17 AM EST 07/02/2024 9:36 AM EST us John Hendricks MD LAB URINE ORDERABLES Final Resul t Performing Organization Address [facility] Co de Phone Number [facility] [address] [address], [place] [phone] * Protein, Random Urine with Creatinine (07/02/2024 9:17 AM EST) Protein, Urine 6 mg/dL 07/02/2024 2:41 PM EST [facility] Creatinine, Urine 55 mg/dL 07/02/2024 2:41 PM EST [facility] Protein/Creati nine Ratio 109 <200 mg/gmCr 07/02/2024 2:41 PM EST [facility] Urine Voided urine specimen / Unknown Non-Blood Collection / Unknown 07/02/2024 9:17 AM EST 07/02/2024 9:36 AM EST us John Hendricks MD LAB URINE ORDERABLES Final Resul t Performing Organization Address [facility] Co de Phone Number [facility] [address] [address], [place] [phone] * (ABNORMAL) Vitamin D, 25-Hydroxy, Total, Immunoassay (07/02/2024 9:17 AM EST) Only the most recent of2 resultswithin the time period is included. Vitamin D 25-OH 22.50(L) 30.00 - 80.00 ng/mL 07/02/2024 11:24 AM EST [facility] Blood Structure of peripheral vein / Unknown Venipuncture / Unknown 07/02/2024 9:17 AM EST 07/02/2024 9:29 AM EST us John Hendricks MD LAB BLOOD ORDERABLES Final Resul t Performing Organization Address City/[facility]/ZIP Co de Phone Number [facility] [address] [address], [place] [phone] * (ABNORMAL) PTH, Intact (without Calcium) (07/02/2024 9:17 AM EST) Parathyroid Hormone, Intact 226.0(H) 14.5 - 87.1 pg/mL 07/02/2024 11:19 AM EST [facility] Comment: This test was [...] Final Resul t Performing Organization Address [facility] Co de Phone Number [facility] [address] [place] [address], [place] [phone] * Magnesium (07/02/2024 9:17 AM EST) [facility] MG 1.9 1.5 - 2.5 mg/dL 07/02/2024 10:01 AM EST [facility] Blood Structure of peripheral vein / Unknown Venipuncture / Unknown 07/02/2024 9:17 AM EST 07/02/2024 9:29 AM EST us John Hendricks MD LAB BLOOD ORDERABLES Final Resul t Performing Organization Address [facility] Co de Phone Number [facility] [address] [place] [address], [place] [phone] * (ABNORMAL) Renal Function Panel (07/02/2024 9:17 AM EST) [facility] NA 138 136 - 145 mmol/L 07/02/2024 10:02 AM EST [facility] K 4.4 3.5 - 5.1 mmol/L 07/02/2024 10:02 AM EST [facility] Comment:ALL DELTAS REVIEWED Cl 101 98 - 109 mmol/L 07/02/2024 10:02 AM EST [facility] CO2 26 22 - 32 mmol/L 07/02/2024 10:02 AM [facility] Anion Gap 15 >=0 07/02/2024 10:02 AM EST [facility] Glucose 115(H) 60 - 99 mg/dL 07/02/2024 10:02 AM [facility] BUN 37(H) 8 - 23 mg/dL 07/02/2024 10:02 AM EST [facility] Creatinine 1.47(H) 0.50 - 1.12 mg/dL 07/02/2024 10:02 AM [facility] Calcium 8.8 8.4 - 10.4 mg/dL 07/02/2024 10:02 AM [facility] Phosphorus 3.6 2.5 - 4.5 mg/dL 07/02/2024 10:02 AM [facility] Albumin 3.8 3.5 - 5.0 g/dL 07/02/2024 10:02 AM [facility] eGFR 38(L) >=60 mL/min/1. 73m2 07/02/2024 10:02 AM EST [facility] Comment:The estimated glomer ular [...] MD LAB BLOOD ORDERABLES Final Resul t [facility] [address] [address], * N-terminal ProBrain Natriuretic Peptide (07/01/2024 8:39 AM EST) Only the most recent of5 resultswithin the time period is included. Pro-B-Type Natriuretic Peptide 288 <=900 pg/mL 07/01/2024 9:39 AM EST [facility] Comment: RULE IN CHF >/= 450 [...] EST 07/01/2024 9:05 AM EST Mabel Onofre BATH STEWARD/STEWARDESS LAB BLOOD ORDERABLES Final Result [facility] [address] [address], [place] [phone] * (ABNORMAL) Basic metabolic panel (07/01/2024 8:39 AM EST) Only the most recent of11 resultswithin the time period is included. NA 140 136 - 145 mmol/L 07/01/2024 9:36 AM EST [facility] K 5.3(H) 3.5 - 5.1 mmol/L 07/01/2024 9:36 AM EST [facility] Cl 102 98 - 109 mmol/L 07/01/2024 9:36 AM EST [facility] CO2 29 22 - 32 mmol/L 07/01/2024 9:36 AM EST [facility] BUN 34(H) 8 - 23 mg/dL 07/01/2024 9:36 AM EST [facility] Creatinine 1.27(H) 0.50 - 1.12 mg/dL 07/01/2024 9:36 AM EST [facility] Glucose 113(H) 60 - 99 mg/dL 07/01/2024 9:36 AM EST [facility] Calcium 8.9 8.4 - 10.4 mg/dL 07/01/2024 9:36 AM EST [facility] Anion Gap 14 >=0 07/01/2024 9:36 AM EST [facility] eGFR 45(L) >=60 mL/min/1. 73m2 07/01/2024 9:36 AM EST [facility] Comment:The estimated glomer ular [...] EST 07/01/2024 9:04 AM EST Mabel Onofre BATH STEWARD/STEWARDESS LAB BLOOD ORDERABLES Final Result [facility] [address] [place] [address], * X-Ray Abdomen 1 View (06/26/2024 12:39 [...] obtain the completed interpretation. ? Workstation ID: [id number] Narrative 06/26/2024 2:05 PM EST EXAMINATION: ??XR ABDOMEN 1 VW INDICATION: RLQ abdominal pain, constipation COMPARISONS: None Resulting Agency Comment [id number] Procedure Note Calvin Katz MD - 06/26/2024 [...] possible to obtain thecompleted interpretation. Workstation ID: [id number] us Tia Oh BATH STEWARD/STEWARDESS IMG XR PROCEDURES Final Result * (ABNORMAL) CBC (06/26/2024 6:22 AM EST) Only the most recent of5 resultswithin the time period is included. WBC 15.0(H) 4.8 - 10.8 10*3/uL 06/26/2024 6:42 AM EST [facility] RBC 4.51 4.20 - 5.40 10*6/uL 06/26/2024 6:42 AM EST [facility] Hemoglobin 13.1 11.7 - 15.5 g/dL 06/26/2024 6:42 AM EST [facility] Hematocrit 40.5 35.7 - 45.8 % 06/26/2024 6:42 AM EST [facility] MCV 89.8 81.0 - 99.0 fL 06/26/2024 6:42 AM EST [facility] MCH 29.0 26.0 - 34.0 pg 06/26/2024 6:42 AM EST [facility] MCHC 32.3 31.0 - 36.0 g/dL 06/26/2024 6:42 AM EST [facility] RDW 13.2 12.0 - 15.0 % 06/26/2024 6:42 AM EST [facility] Platelets 220 140 - 440 10*3/uL 06/26/2024 6:42 AM EST [facility] MPV 9.4 9.4 - 12.3 fL 06/26/2024 6:42 AM EST [facility] RDW Standard Deviation 43.5 36.4 - 46.3 fL 06/26/2024 6:42 AM EST [facility] Blood Structure of peripheral vein / Unknown Venipuncture / Unknown 06/26/2024 6:22 AM EST 06/26/2024 6:39 AM EST us Olivia Arteaga NP LAB BLOOD ORDERABLES Final Result Performing Organization Address City/State/[facility] Co de Phone Number [address] [address], [place] [phone] * ECG 12 lead (06/24/2024 9:50 AM EST) Only the most recent of4 resultswithin the time period is included. Ventricular Rate EKG 73 BPM MUSE EKG Atrial Rate 73 BPM MUSE EKG SD Interval 228 ms MUSE EKG QRS Interval 128 ms MUSE EKG QT Interval 384 ms MUSE EKG QTC Interval 423 ms MUSE EKG P [place] 65 degrees MUSE EKG R [place] 41 degrees MUSE EKG T Wave [place] 61 degrees MUSE EKG 06/24/2024 9:5 0 AM EST 06/24/2024 5:36 PM EST Impressions MUSE EKG - 06/24/2024 5:36 PM EST Sinus rhythm with 1st degree AV block with occasional premature ventricular complexes Nonspecific intraventricular block When compared with ECG of 21-JUN-2024 07:26, No significant change was found Confirmed by Stephanie Hampton ([id number]) on 06/24/2024 5:36:28 PM us Olivia Arteaga BATH STEWARD/STEWARDESS ECG ORDERABLES Final Resul t MUSE EKG * (ABNORMAL) Potassium (06/23/2024 10:05 AM EST) K 5.6(H) 3.5 - 5.1 mmol/L 06/23/2024 10:58 AM EST [facility] Comment:REVIEWED Blood Structure of peripheral vein / Unknown Venipuncture / Unknown 06/23/2024 10:05 AM EST 06/23/2024 10:36 AM EST Narrative [facility] - 06/23/2024 10:58 AM EST Please check heparinized potassium, TY. Sydney David BATH STEWARD/STEWARDESS LAB BLOOD ORDERABLES Final Result Performing Organization Address City/[facility]/ZIP Co de Phone Number [facility] [address] [place] [address] [address] [place] [address], [place] [phone] * X-Ray Chest 2 Views (06/22/2024 4:27 [...] obtain the completed interpretation. ? Workstation ID: [id number] Narrative 06/24/2024 9:35 AM EST COMPARISON: ??06/18/2024 FINDINGS AND Resulting Agency Comment [id number] Procedure Note Calvin Katz MD - 06/24/2024 COMPARISON: 06/18/2024 FINDINGS AND IMPRESSION: Interval clearing of prior LLL infiltrate/atelectasis. Lungs and pleuralspaces now clear. Heart size remains normal. If this radiology report contains a blank impression section, it is anincomplete radiology report. Please contact the interpreting radiologistor applicable radiology division as soon as possible to obtain thecompleted interpretation. Workstation ID: [id number] us Sydney David BATH STEWARD/STEWARDESS IMG XR PROCEDURES Final Res ult * Lavender Top (06/22/2024 6:53 AM EST) Only the most recent of2 resultswithin the time period is included. Extra Tube Hold for add-ons. 06/22/2024 11:05 AM EST [facility] Comment:Auto resulted. Blood Structure of peripheral vein / Unknown 06/22/2024 6:53 AM EST 06/22/2024 6:53 AM EST us Mj Mendenhall MD LAB BLOOD ORDERABLES Final R esult Performing Organization Address City/State/[facility] Co de Phone Number [facility] [address] [place] [address] [address] [place] [address], [place] [phone] * Troponin T, High Sensitivity (06/20/2024 10:19 AM EST) Only the most recent of3 resultswithin the time period is included. Troponin T High Sensitivity 14 6 - 14 ng/L 06/20/2024 11:08 AM EST [facility] Comment: Cw-Fedjzhpl-C level of 52 ng/L or higher at [...] be evaluated in line with the 4th [place] Definition of AMI. Troponin baseline and serial [...] ORDERABLES Final R esult Performing Organization Address City/[facility]/ZIP Co de Phone Number [facility] [address] [address], [place] [phone] * (ABNORMAL) Respiratory Culture (06/20/2024 7:37 AM EST) Respiratory Culture Moderate Rayna albicans(A) [facility] [facility] 06/22/2024 11:29 AM EST [facility] Gram Stain Result <25 per LPF White Blood Cells Seen 06/22/2024 11:29 AM EST [facility] Gram Stain Result <10 per LPF Epithelial Cells 06/22/2024 11:29 AM EST [facility] Gram Stain Result Rare Gram Positive Cocci in pairs 06/22/2024 11:29 AM EST [facility] Sputum Sputum / Unknown Non-Blood Collection / Unknown 06/20/2024 7:37 AM EST 06/20/2024 7:54 AM EST Narrative [facility] - 06/22/2024 11:29 AM EST Many normal respiratory beena present. [facility] B[facility] STEWARD/STEWARDESS LAB MICROBIOLOGY - GENERAL ORDER RHINA Final Result Performing Organization Address City/[facility] Co de Phone Number [facility] [address] [address], [place] [phone] * Streptococcus Pneumoniae Antigen Urine (06/18/2024 6:44 PM EST) Streptococcus pneumoniae Antigen, Urine Negative Negative [facility] 06/19/2024 8:53 AM EST [facility] Comment: INTERPRETATION: Presumptive negative for pneumococcal [...] ORDERABLES Final R esult Performing Organization Address [facility] de Phone Number [facility] [address] [address], [place] [phone] * Legionella Antigen, Urine (06/18/2024 6:44 PM EST) Legionella pneumophila Urine Ag Negative Negative [facility] 06/19/2024 8:53 AM EST [facility] Comment: INTERPRETATION: Presumptive negative for Legionella [...] PM EST 06/18/2024 7:15 PM EST Narrative [facility] - 06/19/2024 8:53 AM EST This [...] ORDERABLES Final R esult Performing Organization Address [facility] Co de Phone Number [facility] [address] [place] [address], [place] [phone] * XR Chest Portable 1 View (06/18/2024 [...] obtain the completed interpretation. ? Workstation ID: [id number] Narrative 06/20/2024 10:17 AM EST EXAMINATION: XR CHEST PORTABLE 1 VIEW COMPARISON: CT chest pulmonary angiogram 06/15/2024 and other priors. FINDINGS: Lines/Tubes/Devices: None. Lungs: Redemonstrated left basilar consolidation. Pleura: No pleural effusions or pneumothorax. Heart/Mediastinum: Cardiomediastinal silhouette is similar to prior. Bones/Soft tissues: No acute osseous abnormality. Resulting Agency Comment [id number] Procedure Note Apolonia Nolen MD - 06/20/2024 [...] possible to obtain thecompleted interpretation. Workstation ID: [id number] us Tia Oh BATH STEWARD/STEWARDESS IMG XR PROCEDURES Final Result * (ABNORMAL) CBC Auto Differential (06/17/2024 7:03 AM EST) Only the most recent of3 resultswithin the time period is included. Pathologist [facility] WBC 11.6(H) 4.8 - 10.8 10*3/uL 06/17/2024 7:30 AM EST [facility] RBC 3.94(L) 4.20 - 5.40 10*6/uL 06/17/2024 7:30 AM [facility] Hemoglobin 11.7 11.7 - 15.5 g/dL 06/17/2024 7:30 AM [facility] Hematocrit 35.4(L) 35.7 - 45.8 % 06/17/2024 7:30 AM [facility] MCV 89.8 81.0 - 99.0 fL 06/17/2024 7:30 AM [facility] MCH 29.7 26.0 - 34.0 pg 06/17/2024 7:30 AM [facility] MCHC 33.1 31.0 - 36.0 g/dL 06/17/2024 7:30 AM [facility] RDW 12.9 12.0 - 15.0 % 06/17/2024 7:30 AM [facility] RDW Standard Deviation 42.6 36.4 - 46.3 fL 06/17/2024 7:30 AM [facility] Platelets 257 140 - 440 10*3/uL 06/17/2024 7:30 AM [facility] Comment:REV IEWED MPV 10.0 9.4 - 12.3 fL 06/17/2024 7:30 AM [facility] Neutrophil % 81.6(H) 50.0 - 75.0 % 06/17/2024 7:30 AM [facility] Immature Grans % 0.8 0.0 - 0.9 % 06/17/2024 7:30 AM [facility] Lymphocyte % 11.8(L) 20.0 - 44.0 % 06/17/2024 7:30 AM [facility] Monocyte % 5.6 0.0 - 14.0 % 06/17/2024 7:30 AM [facility] Eosinophil % 0.0 0.0 - 5.0 % 06/17/2024 7:30 AM EST [facility] Basophil % 0.2 0.0 - 2.0 % 06/17/2024 7:30 AM EST [facility] Neutrophil # 9.48(H) 1.80 - 7.70 10*3/uL 06/17/2024 7:30 AM EST [facility] Immature Grans # 0.09(H) 0.00 - 0.03 10*3/uL 06/17/2024 7:30 AM EST [facility] Lymphocyte # 1.40 1.00 - 4.75 10*3/uL 06/17/2024 7:30 AM EST [facility] Monocyte # 0.70(H) 0.00 - 0.60 10*3/uL 06/17/2024 7:30 AM EST [facility] Eosinophil # <0.03 0.00 - 0.80 10*3/uL 06/17/2024 7:30 AM EST [facility] Basophil # <0.03 0.00 - 0.20 10*3/uL 06/17/2024 7:30 AM EST [facility] nRBC % 0.0 0 - 0 /100 WBCs 06/17/2024 7:30 AM EST [facility] nRBC # <0.01 0.00 - 0.13 10*3/uL 06/17/2024 7:30 AM EST [facility] Blood Structure of peripheral vein / Unknown Venipuncture / Unknown 06/17/2024 7:03 AM EST 06/17/2024 7:22 AM EST us Mj Mendenhall MD LAB BLOOD ORDERABLES Final R esult [facility] [address] [facility] [address] [place] [address], [place] [phone] * TSH (06/17/2024 7:03 AM EST) Only the most recent of2 resultswithin the time period is included. TSH 0.874 0.270 - 4.200 uIU/mL 06/17/2024 2:31 PM EST [facility] Comment: Females: 1st trimester ? 0.150-4.000 ??IU/mL 2nd trimester ?? 0.310-4.170 ?IU/mL 3rd trimester ?0.380-4.150 ?IU/mL Blood Structure of peripheral vein / Unknown Venipuncture / Unknown 06/17/2024 7:03 AM EST 06/17/2024 7:23 AM EST us Tia Oh BATH STEWARD/STEWARDESS LAB BLOOD ORDERABLES Final Resul t [facility] [address] [facility] [address] [place] [address], [place] [phone] * (ABNORMAL) Comprehensive Metabolic Panel (06/17/2024 7:03 AM EST) Only the most recent of2 resultswithin the time period is included. NA 139 136 - 145 mmol/L 06/17/2024 8:07 AM EST [facility] K 5.1 3.5 - 5.1 mmol/L 06/17/2024 8:07 AM EST [facility] Cl 106 98 - 109 mmol/L 06/17/2024 8:07 AM EST [facility] CO2 23 22 - 32 mmol/L 06/17/2024 8:07 AM EST [facility] Anion Gap 15 >=0 06/17/2024 8:07 AM EST [facility] Glucose 111(H) 60 - 99 mg/dL 06/17/2024 8:07 AM EST [facility] Creatinine 0.99 0.50 - 1.12 mg/dL 06/17/2024 8:07 AM EST [facility] Calcium 9.4 8.4 - 10.4 mg/dL 06/17/2024 8:07 AM EST [facility] Total Protein 6.8 6.6 - 8.7 g/dL 06/17/2024 8:07 AM EST [facility] Albumin 4.0 3.5 - 5.0 g/dL 06/17/2024 8:07 AM EST [facility] Bilirubin, Total 0.1(L) 0.2 - 1.2 mg/dL 06/17/2024 8:07 AM EST [facility] Alkaline Phosphatase 109 40 - 129 U/L 06/17/2024 8:07 AM [facility] AST 23 0 - 33 U/L 06/17/2024 8:07 AM EST [facility] ALT 26 <=33 U/L 06/17/2024 8:07 AM [facility] BUN 27(H) 8 - 23 mg/dL 06/17/2024 8:07 AM EST [facility] eGFR 61 >=60 mL/min/1. 73m2 06/17/2024 8:07 AM [facility] Comment:The estimated glomer ular filtration [...] - 4.2 g/dL 06/17/2024 8:07 AM EST [facility] A/G Ratio 1.4(L) 1.5 - 3.0 06/17/2024 8:07 AM [facility] Blood Structure of peripheral vein / Unknown Venipuncture / Unknown 06/17/2024 7:03 AM EST 06/17/2024 7:23 AM EST Mj Mendenhall MD LAB BLOOD ORDERABLES Final R esult Performing Organization Address [facility] Co de Phone Number [facility] [address] [address], * Light Green Top (06/16/2024 7:54 AM EST) Pathologist [facility] Extra Tube Hold for add-ons. 06/16/2024 12:05 PM EST [facility] Comment:Auto resulted. Blood Structure of peripheral vein / Unknown 06/16/2024 7:54 AM EST 06/16/2024 7:54 AM EST Mj Mendenhall MD LAB BLOOD ORDERABLES Final R esult Performing Organization Address [facility] Co de Phone Number [facility] [address] [address], * Mycoplasma pneumoniae Antibodies, IgG/IgM (06/16/2024 7:42 AM EST) [facility] M. pneumoniae Ab, IgG <=0.90 <=0.90 06/19/2024 10:04 PM EST [facility] HAR[employer]) Comment: ? Reference Range: ? <=0.90 [...] <770 U/mL 06/19/2024 10:04 PM EST [facility]inderAngelita CamiloSEPULVEDA) Comment: Reference Range: ?<770 U/ml ?Negative 770-950 [...] EST 06/16/2024 7:53 AM EST Narrative [facility] A[facility] - 06/19/2024 10:04 PM EST [facility] Received Date: us Mj Mendenhall MD LAB BLOOD ORDERABLES Final R esult HILARY DAVID [address] [place] [address] 3rd Floor, [place] [address], [employer] [facility] ([facility]) [address] [place] [address], [place] * CT Chest PE (06/15/2024 11:49 [...] obtain the completed interpretation. ? Workstation ID: [id number] Up-to-date CT equipment and radiation dose reduction [...] possible to obtain thecompleted interpretation. Workstation ID: [id number] Up-to-date CT equipment and radiation dose reduction techniques wereemployed. CTDIvol: .8 - 21.4 mGy. DLP: 802 mGy-cm. us Kevin Newsome MD IMG CT PROCEDURES Final Result * Blood Culture (06/15/2024 10:17 PM EST) Only the most recent of2 resultswithin the time period is included. Blood Culture No growth after 5 days 06/20/2024 11:05 PM EST [facility] Blood Structure of peripheral vein / Unknown Venipuncture / Unknown 06/15/2024 10:17 PM EST 06/15/2024 10:39 PM EST us Kevin Newsome MD LAB MICROBIOLOGY - GENERAL ORDER RHINA Final Result Performing Organization Address [facility] Co de Phone Number [facility] [address] [place] [address], [place] [phone] * Lactic Acid, Plasma (06/15/2024 10:17 PM EST) Lactic Acid 0.7 0.5 - 2.2 mmol/L 06/15/2024 11:02 PM EST [facility] Blood Structure of peripheral vein / Unknown Venipuncture / Unknown 06/15/2024 10:17 PM EST 06/15/2024 10:31 PM EST us Kevin Newsome MD LAB BLOOD ORDERABLES Final Resul t Performing Organization Address City/[facility] Co de Phone Number [facility] [address] [place] [address], [place] [phone] * (ABNORMAL) Blood gas, venous (06/15/2024 10:17 PM EST) pH, Venous 7.24(LL) 7.35 - 7.45 06/16/2024 2:54 AM EST [facility] RT pCO2, Venous 57.0 mm[Hg] 06/16/2024 2:54 AM EST [facility] RT pO2, Keegan 138.0 mm[Hg] 06/16/2024 2:54 AM EST [facility] RT HCO3, Venous 22 mmol/L 06/16/2024 2:54 AM EST [facility] RT O2 Sat, Venous 97.8 % 06/16/2024 2:54 AM EST [facility] RT Base Excess, Keegan -3.6 mmol/L 06/16/2024 2:54 AM EST [facility] RT Blood Structure of peripheral vein / Unknown Venipuncture / Unknown 06/15/2024 10:17 PM EST 06/16/2024 2:52 AM EST us Kevin Newsome MD LAB BLOOD ORDERABLES Final Resul t [facility] [address] [place] [address], * COVID-19, Flu A/B & RSV RNA PCR, Symptomatic (06/15/2024 7:58 PM EST) PCR, SARS CoV-2 RNA Not Detected Not Detected [employer] 06/15/2024 8:48 PM EST [facility] Flu A RNA PCR Not Detected Not Detected [employer] 06/15/2024 8:48 PM EST [facility] Flu B RNA PCR Not Detected Not Detected [employer] 06/15/2024 8:48 PM EST [facility] RSV RNA PCR Not Detected Not Detected [employer] 06/15/2024 8:48 PM EST [facility] Comment: Limitations: This RSV test [...] PM EST 06/15/2024 8:09 PM EST Narrative [facility] - 06/15/2024 8:48 PM EST Methodology: The [employer] GeneXpert CoV-2/Flu/RSV plus assay is For Use Under an Emergency Use Authorization (EUA) Only with [employer]. The CoV-2/Flu/RSV plus assay is a [...] FLUIDS AND STOOLS O RDERABLES Final Result [facility] [address] [place] [address], * HEART & VASCULAR - SCANNED (06/15/2024) [...] Estimated 70 % EF 2D 70 % [facility] RV TISSUE DOPPLER S' 11.0 cm/s RIGHT [...] (for DVT/PE) (06/03/2024 4:10 PM EST) Pathologist [facility] D-Dimer, Quantitative 0.54(HH) 0.10 - 0.49 mg/L FEU 06/03/2024 4:45 PM EST [facility] Comment:A D-DIMER VALUE OF < 0.50 ug/FEU/mL HAS A STRONG NEGATIVE PREDICTIVE VALUE FOR EXCLUSION OF PULMONARY EMBOLIC AND DEEP VEIN THROMBOSIS. CLINICAL CORRELATION IS INDICATED. Blood Structure of peripheral vein / Unknown Venipuncture / Unknown 06/03/2024 4:10 PM EST 06/03/2024 4:15 PM EST us Calvin Fontenot MD LAB BLOOD ORDERABLES Final R esult [facility] [address] [place] [address], * [place] Lower Extremity Venous Left (06/03/2024 [...] obtain the completed interpretation. ? Workstation ID: [id number] Narrative 06/03/2024 3:48 PM EST EXAMINATION: US [...] identified behind the knee Resulting Agency Comment [id number] Procedure Note Sonny Valdivia MD - 06/03/2024 [...] possible to obtain thecompleted interpretation. Workstation ID: [id number] Calvin Fontenot MD IM US PROCEDURES Final Resu lt * Rapid COVID-19, FLU A, FLU B & RSV RNA PCR, Symptomatic (ED ONLY) (06/03/2024 3:02 PM EST) Pathologist [facility] PCR, SARS CoV-2 RNA Not Detected Not Detected [facility] [employer] 06/03/2024 3:48 PM EST [facility] Flu A RNA PCR Not Detected Not Detected [employer] GENEXPERT 06/03/2024 3:48 PM EST [facility] Flu B RNA PCR Not Detected Not Detected [employer]EXP[employer] 06/03/2024 3:48 PM EST [facility] RSV RNA PCR Not Detected Not Detected [employer]EXP[employer] 06/03/2024 3:48 PM EST [facility] Comment: Limitations: This RSV test [...] 3:02 PM EST 06/03/2024 3:06 PM EST [facility] - 06/03/2024 3:48 PM EST Methodology: The [employer] GeneXpert CoV-2/Flu/RSV plus assay is For Use Under an Emergency Use Authorization (EUA) Only with [employer]. The CoV-2/Flu/RSV plus assay is a [...] treatment or other patient management decisions. us Calvni Fontenot MD LAB BODY FLUIDS AND STOOLS O RDERABLES Final Result [facility] [address] [place] [address], * CT Lumbar Spine WO Contrast (06/02/2024 [...] obtain the completed interpretation. ? Workstation ID: [id number] Up-to-date CT equipment and radiation dose reduction techniques were employed. CTDIvol: 22.2 - 54.3 mGy. DLP: 3111 mGy-cm. ??The following accession numbers are related to this dose report [id number]: [id number] Narrative 06/02/2024 7:00 PM EST COMPARISON: None available. FINDINGS: There is no evidence of acute compression fracture. ??Alignment is maintained. ?? 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 ??Severe degenerative changes are seen most severe at L3-4. ??Paraspinous soft tissues are unremarkable. 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 Workstation ID: [id number] Up-to-date CT equipment and radiation dose reduction techniques wereemployed. CTDIvol: 22.2 - 54.3 mGy. DLP: 3111 mGy-cm. The followingaccession numbers are related to this dose report [id number]: [id number] Govind Glez MD IMG CT PROCEDURES Final [...] obtain the completed interpretation. ? Workstation ID: [id number] Up-to-date CT equipment and radiation dose reduction techniques were employed. CTDIvol: 22.2 - 54.3 mGy. DLP: 3111 mGy-cm. ??The following accession numbers are related to this dose report [id number]: [id number] Up-to-date CT equipment and radiation dose reduction techniques were employed. CTDIvol: 22.2 - 54.3 mGy. DLP: 3111 mGy-cm. ??The following accession numbers are related to this dose report [id number]: [id number] Narrative 06/02/2024 6:31 PM EST COMPARISON: 04/28/2016. [...] are within normal limits. Resulting Agency Comment [id number] Procedure Note Lius Mayfield MD - 06/02/2024 COMPARISON: 04/28/2016. TECHNIQUE: [...] possible to obtain thecompleted interpretation. Workstation ID: [id number] Up-to-date CT equipment and radiation dose reduction techniques wereemployed. CTDIvol: 22.2 - 54.3 mGy. DLP: 3111 mGy-cm. The followingaccession numbers are related to this dose report [id number]: [id number] Up-to-date CT equipment and radiation dose reduction techniques wereemployed. CTDIvol: 22.2 - 54.3 mGy. DLP: 3111 mGy-cm. The followingaccession numbers are related to this dose report [id number]: [id number] Govind Glez MD IM CT PROCEDURES Final [...] obtain the completed interpretation. ? Workstation ID: [id number] Up-to-date CT equipment and radiation dose reduction techniques were employed. CTDIvol: 22.2 - 54.3 mGy. DLP: 3111 mGy-cm. ??The following accession numbers are related to this dose report [id number]: [id number] Up-to-date CT equipment and radiation dose reduction techniques were employed. CTDIvol: 22.2 - 54.3 mGy. DLP: 3111 mGy-cm. ??The following accession numbers are related to this dose report [id number]: [id number] Narrative 06/02/2024 6:31 PM EST COMPARISON: 04/28/2016. [...] are within normal limits. Resulting Agency Comment [id number] Procedure Note Luis Mayfield MD - 06/02/2024 [...] possible to obtain thecompleted interpretation. Workstation ID: [id number] Up-to-date CT equipment and radiation dose reduction techniques wereemployed. CTDIvol: 22.2 - 54.3 mGy. DLP: 3111 mGy-cm. The followingaccession numbers are related to this dose report [id number]: [id number] Up-to-date CT equipment and radiation dose reduction techniques wereemployed. CTDIvol: 22.2 - 54.3 mGy. DLP: 3111 mGy-cm. The followingaccession numbers are related to this dose report [id number]: [id number] Govind Glez MD IMG CT PROCEDURES Final [...] were monitored continuously. The CFQ-160L [employer] # [id number] was introduced through the anus and advanced [...] Most Recently Relevant to Health Maintenance Insurance [address] [place] [address] [facility] y [address] [address] [facility] [employer] Advance Directives Documents on File Type Date Recorded Patient Technical Staff Engineer Expl anation Advance Directive 08/06/2013 12:00 AM [...] 1:19 AM 06/04/2024 5:36 PM Care Teams Tea Taster Relationship Specialty Start Date End Date Bijal Fox, BATH STEWARD/STEWARDESS [address] [place] [id number] PCP - General Family Medicine 05/30/24
--- OUTSIDE RECORDS SUMMARY | 2024-07-10 12:06 | XMS_ITS | Encounter Summary ---
Author Organization [facility] Address [address] [place] [address] Care Team Providers Care Lanolin Plant Operator Name Role Phone Brandyn Pagan MD Primary Care Provider UnavailRadha Mas NP Unavailable Unavailable Unknown Pcp, Non [facility] Primary Care Provider Unava ilable Encounter Details Date Type Department Care Team (Late st Contact Info) Description 10/24/2016 Orders Only [address] [address] Concha Bustillo PA [address] [place] [address] Social History Tobacco Use Types Packs/Day Years [...] this encounter Procedures * Due to [place] [employer] law, this organization might not be sharing negative HIV tests. Procedure Name Priority Date/Time Associated Diagnosis Comments EKG-USE ONLY IN [facility]/OCC MED/CARDIO Routine 10/21/2016 4:41 PM EDT Acute pain of right shoulder documented in this encounter Results * Due to [place] [employer] law, this organization might not be sharing [...] shoulder documented in this encounter Care Teams Lanolin Plant Operator Relationship Specialty Start Date End Date Brandyn Pagan MD PCP - General Internal Medicine 08/07/15 02/02/17 Radha Spangler NP PCP - Backup PCP Internal Medicine 01/11/16 02/02/17 Unknown Pcp, Non [facility] PCP - General 02/03/17 documented as of this encounter
--- OUTSIDE RECORDS SUMMARY | 2024-07-10 12:06 | XMS_ITS | Encounter Summary ---
Author Organization [facility] Address [address] [place] [address] Care Team Providers Care Tube Trailer Filler Name Role Phone Brandyn Pagan MD Primary Care Provider Radha Cuevas NP Unavailable Unavailable Unknown Pcp, Non [facility] Primary Care Provider Unava ilable Encounter Details Date Type Department Care Team (Late st Contact Info) Description 09/09/2016 Orders Only [facility] [address] [place] [address] Brandyn Pagan MD Social History Tobacco Use [...] of this encounter Procedures * Due to [place] [employer] law, this organization might not be sharing negative HIV tests. Procedure Name Priority Date/Time Associated Diagnosis Comments URINALYSIS, DIP ONLY STAT (All results called to provider) 09/09/2016 12:32 PM EDT Frequency of urination CULTURE, URINE, ROUTINE Routine 09/09/2016 12:28 PM EDT Frequency of urination URINALYSIS, MICROSCOPIC Routine 09/09/2016 12:28 PM EDT Frequency of urination documented in this encounter Results * Due to [place] [employer] law, this organization might not be sharing negative HIV tests. * URINALYSIS, DIP ONLY ( SITE STAT ONLY) (09/09/2016 12:32 PM EDT) COLOR (URINE) Yellow [facility] (CLIA# [id number]) APPEARANCE (URINE) Clear Clear [facility] (CLIA# [id number]) SPECIFIC GRAVITY 1.015 1.001 - 1.035 [facility] (CLIA# [id number]) PH (URINE) 6.0 5.0 - 8.0 [facility] (CLIA# [id number]) PROTEIN (URINE) Negative Neg [facility] (CLIA# [id number]) GLUCOSE (URINE) Negative Neg [facility] (CLIA# [id number]) Ketones (Urine) Negative Neg [facility] (CLIA# [id number]) BILIRUBIN (URINE) Negative Neg [facility] (CLIA# [id number]) BLOOD (URINE) Negative Neg [facility] (CLIA# [id number]) Leukocyte esterase (Urine) Negative Neg [facility] (CLIA# [id number]) NITRITE (URINE) Negative Neg [facility] (CLIA# [id number]) Urine specimen obtained by clean catch procedure (specimen) 09/09/2016 12:32 PM EDT Narrative [facility] (CLIA# [id number]) - 09/09/2016 12:36 PM EDT Micro and culture already ordered per provider. us Brandyn Pagan MD LAB SAME DAY RESULT Final Resul t Performing Organization Address [facility] de Phone Number [facility] (CLIA# [id number]) [address] [place] [address] * CULTURE, URINE, ROUTINE (09/09/2016 12:28 PM EDT) Bacteria culture (Urine) SEE NOTE [facility] Comment: ??CULTURE, URINE, ROUTINE ??MICRO NUMBER: ?[id number] ??TEST STATUS: ? FINAL ??SPECIMEN SOURCE: ?? URINE ??SPECIMEN QUALITY: ??ADEQUATE ??RESULT: ?Multiple organisms present, each less than 10,000 ? CFU/mL. These organisms, commonly found on ? external and internal genitalia, are considered ? to be colonizers. No further testing performed. 09/09/2016 12:2 8 PM EDT 09/09/2016 7:38 PM EDT Narrative Resulting Agency Comment [id number] us Brandyn Pagan MD LABORATORY Final Result Performing Organization Address [facility]/ZIP Co de Phone Number [facility] [address] [place] [address] * URINALYSIS, MICROSCOPIC (09/09/2016 12:28 PM EDT) [...] 7:38 PM EDT Narrative Resulting Agency Comment [id number] us Brandyn Pagan MD LAB SAME DAY RESULT Final Resul t [facility] [address] [place] [address] documented in this encounter Visit Diagnoses Diagnosis Frequency of urination Urinary frequency documented in this encounter Care Teams Tube Trailer Filler Relationship Specialty Start Date End Date Brandyn Pagan MD PCP - General Internal Medicine 08/07/15 02/02/17 Radha Spangler NP PCP - Backup PCP Internal Medicine 01/11/16 02/02/17 Unknown Pcp, Non [facility] PCP - General 02/03/17 documented as of this encounter
--- OUTSIDE RECORDS SUMMARY | 2024-07-10 12:06 | XMS_ITS | Encounter Summary ---
Author Organization [facility] Address [address] [place] [address] Care Team Providers Care Assistance Specialist Name Role Phone Brandyn Pagan MD Primary Care Provider Unavaila Radha Fink NP Unavailable Unavailable Unknown Pcp, Non [facility] Primary Care Provider Unava ilable Encounter Details Date Type Department Care Team (Late st Contact Info) Description 02/19/2016 Orders Only [facility] [address] [place] [address] Brandyn Pagan MD Social History Tobacco Use [...] of this encounter Procedures * Due to [place] [employer] law, this organization might not be sharing [...] in this encounter Results * Due to [place] [employer] law, this organization might not be sharing negative HIV tests. * (ABNORMAL) URINALYSIS, DIP ONLY ( SITE STAT ONLY) (02/19/2016 2:13 PM EDT) COLOR (URINE) Yellow [facility] (CLIA# [id number]) APPEARANCE (URINE) Cloudy [facility] (CLIA# [id number]) SPECIFIC GRAVITY 1.010 1.001 - 1.035 [facility] (CLIA# [id number]) PH (URINE) 7.5 5.0 - 8.0 [facility] (CLIA# [id number]) PROTEIN (URINE) Trace(A) Neg [facility] (CLIA# [id number]) GLUCOSE (URINE) Negative Neg [facility] (CLIA# [id number]) Ketones (Urine) Negative Neg [facility] (CLIA# [id number]) BILIRUBIN (URINE) Negative Neg [facility] (CLIA# [id number]) BLOOD (URINE) Negative Neg [facility] (CLIA# [id number]) Leukocyte esterase (Urine) 2+(A) [facility] (CLIA# [id number]) NITRITE (URINE) Negative Neg [facility] (CLIA# [id number]) Urine specimen obtained by clean catch procedure (specimen) 02/19/2016 2:13 PM EDT Narrative [facility] (CLIA# [id number]) - 02/19/2016 2:14 PM EDT Micro and culture already ordered per provider. us Brandyn Pagan MD LAB SAME DAY RESULT Final Resul t [facility] (CLIA# [id number]) [address] [place] [address] * (ABNORMAL) CULTURE, URINE, ROUTINE (02/19/2016 2:00 PM EDT) Bacteria culture (Urine) SEE NOTE(A) [facility] Comment: {CULTURE, URINE, ROUTINE {[id number]) ??CULTURE, URINE, ROUTINE ??MICRO NUMBER: ?[id number] ??TEST STATUS: ? FINAL ??SPECIMEN SOURCE: ?? URINE ??SPECIMEN QUALITY: ??ADEQUATE ??RESULT: ?50,000-100,000 CFU/mL of Escherichia coli ? Greater than 100,000 CFU/mL of ? Staphylococcus saprophyticus ? The Clinical Laboratory Standards [place] (M100 ? guidelines), does not advise routine [...] 7:35 PM EDT Narrative Resulting Agency Comment [id number] Brandyn Pagan MD LABORATORY Final Result [facility] [address] [place] [address] * (ABNORMAL) URINALYSIS, MICROSCOPIC (02/19/2016 2:00 PM EDT) WBC (Urine) 20-40(A) < OR = 5 /HPF [facility] Comment:{WBC {[id number]) RBC (Urine Sed) NONE SEEN < OR = 2 /HPF [facility] Comment:{RBC {[id number]) Epithelial cells.squamous (Urine sed) NONE SEEN < OR = 5 /HPF [facility] Comment:{SQUAMOUS EPITHELIAL CELLS {[id number]) Bacteria (Urine) FEW(A) NONE SEEN /HPF [facility] Comment:{BACTERIA {[id number]) Hyaline casts (Urine sed) NONE SEEN NONE SEEN /LPF [facility] Comment:{HYALINE CAST {[id number]) 02/19/2016 2:00 PM EDT 02/19/2016 7:35 PM EDT Narrative Resulting Agency Comment [id number] us Brandyn Pagan MD LAB SAME DAY RESULT Final Resul t Performing Organization Address City/State/[facility] Co de Phone Number [facility] [address] [place] [address] documented in this encounter Visit Diagnoses Diagnosis Urinary tract infection, site unspecified documented in this encounter Care Teams Assistance Specialist Relationship Specialty Start Date End Date Brandyn Pagan MD PCP - General Internal Medicine 08/07/15 02/02/17 Radha Spangler NP PCP - Backup PCP Internal Medicine 01/11/16 02/02/17 Unknown Pcp, Non [facility] PCP - General 02/03/17 documented as of this encounter
--- OUTSIDE RECORDS SUMMARY | 2024-07-10 12:06 | XMS_ITS | Clinical Summary ---
Author Organization [facility] [employer] [facility] [employer] Address [address] [place] [address] Care Team Providers Care Telehealth Case Manager Name Role Phone Pcp, No Primary Care Provider [phone] Social History Tobacco Use Types Packs/Day Years [...] Adults 18 yrs or above (or HM Modifier)([facility]) 1969 Hepatitis C Virus Infection in Adolescents and Adults: Screening (or Modifier) ([facility]) 1969 SDOH Screening Reminder: Corry ivy for all adults ([facility]) 1969 Tobacco Smoking Cessation: i n Adults excluding Women: Behavioral and Pharmacotherapy Interventions ([facility]) 1969 DTaP/Tdap/Td Vaccines ([facility]) (1 - Tdap) 1970 Colorectal Cancer Screening 45 -75 Yrs (or HM Modifier ) 1996 Colorectal Cancer: FLEXIBLE SIGMOIDOSCOPY Screening every 5 yrs 1996 Colorectal Cancer: Fecal Imm unochemical Test (FIT) Annually [facility] 1996 Colorectal Cancer: High-sens itivity gFOBT Screening Annually [facility] 1996 Colorectal Cancer: Stool Col oguard Screening every 3 yrs 1996 Colorectal Cancer:CT Colonography Screening every 5 yr s 1996 Lipid Screening: Every 5 yrs for Women aged 45+ (or HM Modifier) ([facility]) 1997 Breast Cancer: Screening Corry ually age 50-74 yrs (or HM Modifier)([facility]) 2001 Zoster/Shingles Vaccine Seri es Screening: Adults aged 18+ yrs (or HM Modifiers)([facility]) (1 of 2) 2001 Osteoporosis Screening to Pr event Fractures: Women aged 65 years+ ([facility]) 2016 Pneumococcal Vaccination Scr eening: Patients 65+ yrs of age ([facility]) (1 of 1 - PCV) 2016 Flu Vaccination: Ages 65+: Y early High Dose Recommended (or Modifier)([facility]) 12/21/2023 COVID-19 Vaccine Screening: Initial Series and Booster Status ([facility]) ( - 2023-25 season) 2024 RSV Vaccines (1 - 1-dose 75+ series) 2026 [employer] Not on file Insurance Care Teams Telehealth Case Manager Relationship Specialty Start Date End Date Pcp, Mayte PCP - General Family Medicine 08/15/20
--- OUTSIDE RECORDS SUMMARY | 2024-07-10 12:06 | XMS_ITS | Encounter Summary ---
Author Organization [facility] Address [address] [place] [address] Care Team Providers Care Computer Systems Technology Instructor Name Role Phone Brandyn Pagan MD Primary Care Provider Unavaila Radha Fink NP Unavailable Unavailable Unknown Pcp, Non Rmg Primary Care Provider Unava ilable Encounter Details Date Type Department Care Team (Late st Contact Info) Description 06/09/2016 Orders Only [facility] [address] [place] [address] Radha Spangler NP Social History Tobacco Use [...] of this encounter Procedures * Due to [place] state law, this organization might not be [...] in this encounter Results * Due to [facility] law, this organization might not be [...] approximately 13% higher for people identified as -[place]. GFR 42(L) > OR = 60 mL/min/1. [...] needs for GFR calculation. Resulting Agency Comment [id number] Radha Spangler NP LABORATORY Final Result Performing Organization Address [facility] Co de Phone Number [facility] [address] [place] [address] * ALANINE AMINOTRANSFERASE (ALT), SERUM (06/09/2016 11:23 AM EST) ALT (SGPT) 25 6 - 29 U/L [facility] 06/09/2016 11:2 3 AM EST 06/09/2016 4:58 PM EST Narrative Resulting Agency Comment [id number] Radha Spangler NP LAB SAME DAY RESULT Final Re sult Performing Organization Address [facility] de Phone Number [facility] [address] [place] [address] * (ABNORMAL) LIPID PANEL WITH REFLEX TO [...] 4:58 PM EST Narrative Resulting Agency Comment [id number] us Radha Spangler NP LABORATORY Final Result Performing Organization Address [facility] Co de Phone Number [facility] [address] [place] [address] documented in this encounter Visit Diagnoses Diagnosis Hyperlipidemia, unspecified hyperlipidemia type Essential hypertension with goal blood pressure less than 140/90 documented in this encounter Care Teams Computer Systems Technology Instructor Relationship Specialty Start Date End Date Brandyn Pagan MD PCP - General Internal Medicine 08/07/15 02/02/17 Radha Spangler NP PCP - Backup PCP Internal Medicine 01/11/16 02/02/17 Unknown Pcp, Non [facility] PCP - General 02/03/17 documented as of this encounter
--- OUTSIDE RECORDS SUMMARY | 2024-07-10 12:06 | XMS_ITS | Encounter Summary ---
Author Organization [facility] Address [address] [place] [address] Care Team Providers Care Yeast Stacker Name Role Phone Unknown Pcp, Non Rmg [...] Date Expiration Date Visits Requested Visits Authorized [id number] Canceled Service Not Available at Clinic 02/03/2017 1 1 Encounter Details Date Type Department Care Team (Late st Contact Info) Description 02/03/2017 Orders Only [facility] [address] [place] [address] Brandyn Pagan MD Social History Tobacco Use [...] chronicity documented in this encounter Care Teams Yeast Stacker Relationship Specialty Start Date End Date Unknown Pcp, Non Rmg PCP - General 02/03/17 documented as of this encounter
--- OUTSIDE RECORDS SUMMARY | 2024-07-10 12:06 | XMS_ITS | Encounter Summary ---
Author Organization [facility] Address [address] [place] [address] Care Team Providers Care Pile Driver Engineer Name Role Phone Brandyn Pagan MD Primary Care Provider UnavailRadha Mas NP Unavailable Unavailable Unknown Pcp, Non Rmg Primary Care Provider Unava ilable Encounter Details Date Type Department Care Team (Late st Contact Info) Description 03/09/2016 Orders Only [facility] [address] [place] [address] Brandyn Pagan MD Social History Tobacco Use [...] of this encounter Procedures * Due to [place] [employer] law, this organization might not be sharing negative HIV tests. Procedure Name Priority Date/Time Associated Diagnosis Comments CLOSTRIDIUM DIFFICILE TOXIN/GDH WITH REFLEX TO PCR Routine 03/09/2016 12:41 PM EDT Diarrhea, unspecified type documented in this encounter Results * Due to [place] [employer] law, this organization might not be sharing negative HIV tests. * CLOSTRIDIUM DIFFICILE TOXIN/GDH WITH REFLEX TO PCR (03/09/2016 12:41 PM EDT) Clostridium Difficile (Stool) SEE NOTE [facility] Comment: {CLOSTRIDIUM DIFFICILE TOXIN/GDH W/REFL TO PCR {[id number]) ??CLOSTRIDIUM DIFFICILE TOXIN/GDH W/REFL TO PCR ??MICRO NUMBER: ?[id number] ??TEST STATUS: ? FINAL ??SPECIMEN SOURCE: ?? STOOL ??SPECIMEN QUALITY: ??ADEQUATE ??GDH ANTIGEN: ? Not Detected ??TOXIN A AND B: ? Not Detected ??COMMENT: ? No toxigenic C. difficile detected 03/09/2016 12:4 1 PM EDT 03/09/2016 7:22 PM EDT Narrative Resulting Agency Comment [id number] Brandyn Pagan MD LABORATORY Final Result [facility] [address] [place] [address] documented in this encounter Visit Diagnoses Diagnosis Diarrhea, unspecified type documented in this encounter Care Teams Pile Driver Engineer Relationship Specialty Start Date End Date Brandyn Pagan MD PCP - General Internal Medicine 08/07/15 02/02/17 Radha Spangler NP PCP - Backup PCP Internal Medicine 01/11/16 02/02/17 Unknown Pcp, Non Rmg PCP - General 02/03/17 documented as of this encounter
--- OUTSIDE RECORDS SUMMARY | 2024-07-10 12:06 | XMS_ITS | Encounter Summary ---
Author Organization [facility] Address [address] [place] [address] Care Team Providers Care It Desktop Support Technician Name Role Phone Brandyn Pagan MD Primary Care Provider Radha Cuevas NP Unavailable Unavailable Unknown Pcp, Non Rmg Primary Care Provider Unava ilable Reason for Visit * Reason Comments ER F/U Encounter Details Date Type Department Care Team (Late st Contact Info) Description 07/29/2016 [facility] [address] [place] [phone] Brandyn Pagan MD ER F/U Social [...] following an Emergency Department visit. ED location: [facility] ER Date of ED Visit: 07-26-16 [...] on filedocumented in this encounter Care Teams It Desktop Support Technician Relationship Specialty Start Date End Date Brandyn Pagan MD PCP - General Internal Medicine 08/07/15 02/02/17 Radha Spangler NP PCP - Backup PCP Internal Medicine 01/11/16 02/02/17 Unknown Pcp, Non Rmg PCP - General 02/03/17 documented as of this encounter
--- OUTSIDE RECORDS SUMMARY | 2024-07-10 12:06 | XMS_ITS | Encounter Summary ---
Author Organization [facility] Address [address] [place] [address] Care Team Providers Care Biopharmaceutical Rep Name Role Phone Brandyn Pagan MD Primary Care Provider Radha Cuevas NP Unavailable Unavailable Unknown Pcp, Non Rmg Primary Care Provider Unava ilable Reason for Referral * CONSULT AND TREATMENT (Routine) - Closed Specialty Diagnoses / Procedures Referred By Contadam t Referred To Contact Chiropractic Diagnoses Back pain, unspecified back location, unspecified back pain laterality, unspecified chronicity Brandyn Pagan MD [place], [address] [place] [address] Phone: tel: fax: Referral ID Status Reason Start Date Expiration Date V isits Requested Visits Authorized [id number] Closed Chiropractor 01/27/2017 05/21/2017 1 1 Encounter Details Date Type Department Care Team (Late st Contact Info) Description 01/27/2017 Orders Only [facility] [address] [place] [phone] Brandyn Pagan MD Social History Tobacco Use [...] chronicity documented in this encounter Care Teams Biopharmaceutical Rep Relationship Specialty Start Date End Date Brandyn Pagan MD PCP - General Internal Medicine 08/07/15 02/02/17 Radha Spangler NP PCP - Backup PCP Internal Medicine 01/11/16 02/02/17 Unknown Pcp, Non Rmg PCP - General 02/03/17 documented as of this encounter
--- OUTSIDE RECORDS SUMMARY | 2024-07-10 12:06 | XMS_ITS | Encounter Summary ---
Author Organization [facility] Address [address] [place] [address] Care Team Providers Care Conche Operator Name Role Phone Brandyn Pagan MD Primary Care Provider Unavaila Radha Fink NP Unavailable Unavailable Unknown Pcp, Non Rmg Primary Care Provider Unava ilable Encounter Details Date Type Department Care Team (Late st Contact Info) Description 09/21/2016 Orders Only [facility] [address] [place] [address] Radha Spangler NP Social History Tobacco Use [...] this encounter Procedures * Due to [place] [employer] law, this organization might not be sharing negative HIV tests. Procedure Name Priority Date/Time Associated Diagnosis Comments ALANINE AMINOTRANSFERASE (ALT), SERUM Routine 09/21/2016 1:41 PM EDT Hyperlipidemia, unspecified hyperlipidemia type LIPID PANEL WITH REFLEX TO DIRECT LDL Routine 09/21/2016 1:41 PM EDT Hyperlipidemia, unspecified hyperlipidemia type documented in this encounter Results * Due to [place] [employer] law, this organization might not be sharing negative HIV tests. * ALANINE AMINOTRANSFERASE (ALT), SERUM (09/21/2016 1:41 PM EDT) ALT (SGPT) 25 6 - 29 U/L [facility] 09/21/2016 1:41 PM EDT 09/21/2016 6:16 PM EDT Narrative Resulting Agency Comment [id number] Radha Spangler THERAPY DIRECTOR LAB SAME DAY RESULT Final Re sult [facility] [address] [place] [address] * (ABNORMAL) LIPID PANEL WITH REFLEX TO [...] 6:16 PM EDT Narrative Resulting Agency Comment [id number] Radha Spangler NP LABORATORY Final Result [facility] [address] [place] [address] documented in this encounter Visit Diagnoses Diagnosis Hyperlipidemia, unspecified hyperlipidemia type documented in this encounter Care Teams Conche Operator Relationship Specialty Start Date End Date Brandyn Pagan MD PCP - General Internal Medicine 08/07/15 02/02/17 Radha Spangler NP PCP - Backup PCP Internal Medicine 01/11/16 02/02/17 Unknown Pcp, Non Rmg PCP - General 02/03/17 documented as of this encounter
--- OUTSIDE RECORDS SUMMARY | 2024-07-10 12:06 | XMS_ITS | Encounter Summary ---
Author Organization [facility] Address [address] [place] [address] Care Team Providers Care Stripper Machine Operator Name Role Phone Brandyn Pagan MD Primary Care Provider Unavaila Radha Fink NP Unavailable Unavailable Unknown Pcp, Non Rmg Primary Care Provider Unava ilable Encounter Details Date Type Department Care Team (Late st Contact Info) Description 04/08/2016 Orders Only [facility] [address] [place] [phone] Radha Spangler NP Social History Tobacco Use [...] this encounter Procedures * Due to [place] [employer] law, this organization might not be sharing [...] this encounter Results * Due to [place] [employer] law, this organization might not be sharing negative HIV tests. * (ABNORMAL) CULTURE, URINE, ROUTINE (04/08/2016 12:17 PM EST) Bacteria culture (Urine) SEE NOTE(A) [facility] Comment: {CULTURE, URINE, ROUTINE {[id number]) ??CULTURE, URINE, ROUTINE ??MICRO NUMBER: ?[id number] ??TEST STATUS: ? FINAL ??SPECIMEN SOURCE: ?? [...] 7:00 PM EST Narrative Resulting Agency Comment [id number] aRdha Spangler NP LABORATORY Final Result [facility] [address] [place] [address] * (ABNORMAL) URINALYSIS, COMPLETE INCLUDES DIPSTICK AND MICROSCOPIC (04/08/2016 12:17 PM EST) Color (Urine) YELLOW YELLOW [facility] Comment:{COLOR {[id number]) Appearance (Urine) CLEAR CLEAR [facility] Comment:{APPEARANCE {[id number]) Specific gravity (Urine) 1.019 1.001 - 1.035 [facility] Comment:{SPECIFIC GRAVITY {[id number]) pH (Urine) 6.5 5.0 - 8.0 [facility] Comment:{PH {[id number]) Glucose (Urine) NEGATIVE NEGATIVE [facility] Comment:{GLUCOSE {[id number]) Bilirubin (Urine) NEGATIVE NEGATIVE [facility] Comment:{BILIRUBIN {[id number]) Ketones (Urine) NEGATIVE NEGATIVE [facility] Comment:{KETONES {[id number]) Hemoglobin (Urine) NEGATIVE NEGATIVE [facility] Comment:{OCCULT BLOOD {[id number]) Protein (Urine) NEGATIVE NEGATIVE [facility] Comment:{PROTEIN {[id number]) Nitrite (Urine) NEGATIVE NEGATIVE [facility] Comment:{NITRITE {[id number]) Leukocyte esterase (Urine) TRACE(A) NEGATIVE [facility] Comment:{LEUKOCYTE ESTERASE {[id number]) WBC (Urine) 0-5 < OR = 5 /HPF [facility] Comment:{WBC {[id number]) RBC (Urine Sed) NONE SEEN < OR = 2 /HPF [facility] Comment:{RBC {[id number]) Epithelial cells.squamous (Urine sed) 0-5 < OR = 5 /HPF [facility] Comment:{SQUAMOUS EPITHELIAL CELLS {[id number]) Bacteria (Urine) NONE SEEN NONE SEEN /HPF [facility] Comment:{BACTERIA {[id number]) Hyaline casts (Urine sed) NONE SEEN NONE SEEN /LPF [facility] Comment:{HYALINE CAST {[id number]) 04/08/2016 12:1 7 PM EST 04/08/2016 7:00 PM EST Narrative Resulting Agency Comment [id number] Radha Spangler MANGLE CATCHER LAB SAME DAY RESULT Final Re sult [facility] [address] [place] [address] * HEPATIC FUNCTION PANEL (ALT,AST,ALK PH,BILI'S,TP,ALB) (04/08/2016 12:17 PM EST) Protein Total (Serum) 6.1 6.1 - 8.1 g/dL [facility] Comment:{PROTEIN, TOTAL {[id number]) Albumin 4.2 3.6 - 5.1 g/dL [facility] Comment:{ALBUMIN {[id number]) Globulin 1.9 1.9 - 3.7 g/dL (calc) [facility] Comment:{GLOBULIN {[id number]) Albumin/Globulin 2.2 1.0 - 2.5 (calc) [facility] Comment:{ALBUMIN/GLOBULIN RA LANA {[id number]) Bilirubin Total 0.3 0.2 - 1.2 mg/dL [facility] Comment:{BILIRUBIN, TOTAL {[id number]) Bilirubin Direct 0.1 < OR = 0.2 mg/dL [facility] Comment:{BILIRUBIN, DIRECT { [id number]) Bilirubin Indirect 0.2 0.2 - 1.2 mg/dL (calc) [facility] Comment:{BILIRUBIN, INDIRECT {[id number]) Alkaline phosphatase 111 33 - 130 U/L [facility] Comment:{ALKALINE PHOSPHATAS E {[id number]) AST (SGOT) 21 10 - 35 U/L [facility] Comment:{AST {[id number]) ALT (SGPT) 22 6 - 29 U/L [facility] Comment:{ALT {[id number]) 04/08/2016 12:1 7 PM EST 04/08/2016 7:00 PM EST Narrative Resulting Agency Comment [id number] Radha Spangler NP LABORATORY Final Result Performing Organization Address City/[facility]/ZIP Co de Phone Number [facility] [address] [place] [address] * CREATINE KINASE (CK), SERUM (04/08/2016 12:17 PM EST) CPK 133 29 - 143 U/L [facility] Comment:{CREATINE KINASE, TO KENZIE {[id number]) 04/08/2016 12:1 7 PM EST 04/08/2016 7:00 PM EST Narrative Resulting Agency Comment [id number] Radha Spangler NP LAB SAME DAY RESULT Final Re sult Performing Organization Address City/[facility]/ZIP Co de Phone Number [facility] [address] [place] [address] * (ABNORMAL) BASIC METABOLIC PANEL WITH (GFR) (04/08/2016 12:17 PM EST) Glucose 101(H) 65 - 99 mg/dL [facility] Comment: {GLUCOSE {[id number]) ? Fasting reference interval Urea Nitrogen Blood (BUN) 37(H) 7 - 25 mg/dL [facility] Comment:{UREA NITROGEN (BUN) {[id number]) Creatinine 1.13(H) 0.50 - 0.99 mg/dL [facility] Comment: {CREATININE {[id number]) For patients >49 years of age, the reference limit for Creatinine is approximately 13% higher for people identified as -[place]. GFR 51(L) > OR = 60 mL/min/1. 73m2 [facility] Comment:{eGFR NON-AFR. AMERI CAN {[id number]) GFR () 59(L) > OR = 60 mL/min/1. 73m2 [facility] Comment:{eGFR AMERIC AN {[id number]) BUN/Creatinine Ratio 33(H) 6 - 22 (calc) [facility] Comment:{BUN/CREATININE RATI O {[id number]) Sodium 139 135 - 146 mmol/L [facility] Comment:{SODIUM {[id number]) Potassium 5.1 3.5 - 5.3 mmol/L [facility] Comment:{POTASSIUM {[id number]) Chloride 105 98 - 110 mmol/L [facility] Comment:{CHLORIDE {[id number]) Carbon dioxide 25 20 - 31 mmol/L [facility] Comment:{CARBON DIOXIDE {[id number]) Calcium 9.4 8.6 - 10.4 mg/dL [facility] Comment:{CALCIUM {[id number]) 04/08/2016 12:1 7 PM EST 04/08/2016 [...] needs for GFR calculation. Resulting Agency Comment [id number] Radha Spangler NP LABORATORY Final Result [facility] [address] [place] [address] documented in this encounter Visit Diagnoses Diagnosis [...] organs documented in this encounter Care Teams Stripper Machine Operator Relationship Specialty Start Date End Date Brandyn Pagan MD PCP - General Internal Medicine 08/07/15 02/02/17 Radha Spangler NP PCP - Backup PCP Internal Medicine 01/11/16 02/02/17 Unknown Pcp, Non Rmg PCP - General 02/03/17 documented as of this encounter
--- OUTSIDE RECORDS SUMMARY | 2024-07-10 12:06 | XMS_ITS | Encounter Summary ---
Author Organization [facility] Address [address] [place] [address] Care Team Providers Care Supervisor Sewing Room Name Role Phone Unknown Pcp, Non Rmg Primary Care Provider Unava ilable Encounter Details Date Type Department Care Team (Late st Contact Info) Description 02/03/2017 Orders Only [facility] [address] [place] [phone] Unknown Pcp, Non Rmg Social History Tobacco [...] on filedocumented in this encounter Care Teams Supervisor Sewing Room Relationship Specialty Start Date End Date Unknown Pcp, Non Rmg PCP - General 02/03/17 documented as of this encounter
--- OUTSIDE RECORDS SUMMARY | 2024-07-10 12:06 | XMS_ITS | Encounter Summary ---
Author Organization [facility] Address [address] [place] [address] Care Team Providers Care Child Nurse Name Role Phone Brandyn Pagan MD Primary Care Provider Radha Cuevas NP Unavailable Unavailable Unknown Pcp, Non Rmg Primary Care Provider Unava ilable Encounter Details Date Type Department Care Team (Late st Contact Info) Description 06/21/2016 Orders Only [facility] [address] [place] [address] Brandyn Pagan MD Social History Tobacco Use [...] of this encounter Procedures * Due to [place] [employer] law, this organization might not be sharing negative HIV tests. Procedure Name Priority Date/Time Associated Diagnosis Comments URINALYSIS, DIP ONLY STAT (All results called to provider) 06/21/2016 11:17 AM EST Frequent urination CULTURE, URINE, ROUTINE Routine 06/21/2016 10:35 AM EST Frequent urination URINALYSIS, MICROSCOPIC Routine 06/21/2016 10:35 AM EST Frequent urination documented in this encounter Results * Due to [place] [employer] law, this organization might not be sharing negative HIV tests. * URINALYSIS, DIP ONLY ( SITE STAT ONLY) (06/21/2016 11:17 AM EST) COLOR (URINE) YELLOW [facility] (CLIA# [id number]) APPEARANCE (URINE) CLEAR Clear [facility] (CLIA# [id number]) SPECIFIC GRAVITY 1.020 1.001 - 1.035 [facility] (CLIA# [id number]) PH (URINE) 6.0 5.0 - 8.0 [facility] (CLIA# [id number]) PROTEIN (URINE) NEGATIVE Neg [facility] (CLIA# [id number]) GLUCOSE (URINE) NEGATIVE Neg [facility] (CLIA# [id number]) Ketones (Urine) NEGATIVE Neg [facility] (CLIA# [id number]) BILIRUBIN (URINE) NEGATIVE Neg [facility] (CLIA# [id number]) BLOOD (URINE) NEGATIVE Neg [facility] (CLIA# [id number]) Leukocyte esterase (Urine) NEGATIVE Neg [facility] (CLIA# [id number]) NITRITE (URINE) NEGATIVE Neg [facility] (CLIA# [id number]) Urine specimen (specimen) 06/21/2016 11:17 AM EST Narrative [facility] (CLIA# [id number]) - 06/21/2016 11:17 AM EST Micro and culture already ordered by provider. us Brandyn Pagan MD LAB SAME DAY RESULT Final Resul t [facility] (CLIA# [id number]) [address] [place] [address] * CULTURE, URINE, ROUTINE (06/21/2016 10:35 AM EST) Bacteria culture (Urine) SEE NOTE [facility] Comment: ??CULTURE, URINE, ROUTINE ??MICRO NUMBER: ?[id number] ??TEST STATUS: ? FINAL ??SPECIMEN SOURCE: ?? URINE ??SPECIMEN QUALITY: ??ADEQUATE ??RESULT: ?Multiple organisms present, each less than 10,000 ? CFU/mL. These organisms, commonly found on ? external and internal genitalia, are considered ? to be colonizers. No further testing performed. 06/21/2016 10:3 5 AM EST 06/21/2016 4:50 PM EST Narrative Resulting Agency Comment [id number] Brandyn Pagan MD LABORATORY Final Result Performing Organization Address [facility] de Phone Number [facility] [address] [place] [address] * URINALYSIS, MICROSCOPIC (06/21/2016 10:35 AM EST) [...] 4:50 PM EST Narrative Resulting Agency Comment [id number] Brandyn Pagan MD LAB SAME DAY RESULT Final Resul t Performing Organization Address [facility] de Phone Number [facility] [address] [place] [address] documented in this encounter Visit Diagnoses Diagnosis Frequent urination Urinary frequency documented in this encounter Care Teams Child Nurse Relationship Specialty Start Date End Date Brandyn Pagan MD PCP - General Internal Medicine 08/07/15 02/02/17 Radha Spangler NP PCP - Backup PCP Internal Medicine 01/11/16 02/02/17 Unknown Pcp, Non Rmg PCP - General 02/03/17 documented as of this encounter
== END 2024-07-10 10:45 | disposition home or self-care (01) ==
LOC: HO.HOSX 10:44
PROVIDERS: Visit Provider Physician Assistant
DX: G95.9 Disease of spinal cord, unspecified (principal)
CPT/HCPCS: 72050; 99202

== ENCOUNTER 2024-07-10 10:44 | Outpatient (AMB) | payer MEDICARE, SELFPAY ==
--- NOTE | 2024-07-10 10:47 | A.SPINEOV_ITS ---
Vital Signs 07/10/24 10:52 Height 5 ft 6 in Weight 250 lb BMI 40.3 Intake Visit Reasons: neck pain/ cervica stenosis Intake Note: Ms. Vora is here today c/o neck pain. 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 In addition to this she reports fairly severe neck pain and shooting pains down her bilateral upper extremities, left side worse than the right. She reports a pertinent past medical history of previous C5-6 ACDF and L5-S1 fusion both completed by Dr. Pope around 2014. The patient reports that about 1 year ago she began feeling unsteady when ambulating. Around this time she was walking about 4 miles a day and was very functional. As a result of her worsening balance issues she ended up purchasing a cane and was using this for several months to help with ambulation. Unfortunately, her difficulties with balance continued to worsen, and she now has been using a walker to ambulate for the past 1 month. She is very concerned about this given her high level of functionality prior to last spring. She also reports numbness predominantly in her left hand, and difficulties with dexterity. She was unable to button buttons, zips zippers, or perform other fine motor movements without significant trouble. She also has had intermittent episodes of incontinence, usually 1st thing in the morning for the past 2 years. In regards to her neck pain, she was attempted to take Lyrica and tramadol in an effort to mitigate the pain, however this only provides modest relief. She is currently engaging in home physical therapy which she does not find very helpful for her. PMH: History of C5-6 ACDF and L5-S1 lumbar fusion completed by Dr. Pope 2014. High blood pressure, hyperlipidemia, COPD, obesity, anxiety. Right total hip replacement 2011 left total knee replacement 2022. Left rotator cuff dysfunction. Social hx: The patient does not smoke, reports no substance use. Medications: Cardizem, flecainide, Lasix, Synthroid, Vyvanse, Cymbalta, Lyrica, tramadol. Allergies: Buspirone, statins, methocarbamol. 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 The rest of her strength is about 5/5. She does have a left-sided footdrop on exam, but this is predominantly mitigated by pain from counter pressure being placed on her feet when testing strength. She is able to stand on her toes, and heels without issue as long as she is bracing herself on something for stability. She ambulates with a slightly spastic gait. (+) bilateral Blanco's, (+) 4-5 beats of clonus on the right, (-) Babinski's, (-) bilateral straight leg raise. Imaging review: MRI of the cervical spine completed about a year ago in [place] could not be loaded into our system. The disc did not work. Impression: Genie is a pleasant 74-year-old female who is known to Dr. Pope and had 2 previous surgeries performed by him. 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 She has deteriorated quite rapidly, and was functional enough to regularly exercise and walk 4 miles daily less than 8 months ago. She has now deteriorated to the point where she can barely ambulate with the assistance of a walker. This is very concerning, and warrants immediate follow- up MRI imaging, especially due to the progressive nature of her current problem. The MRI report does state that she has evidence of listhesis above and below the fused segment. I would like to send the patient for a set of flexion/extension x-rays, and we will be ordering an urgent cervical MRI for her. I will call her back with the plan after I review this case with Dr. Pope and obtain her MRI. Thank you for allowing us to care for your patient. The total time spent with this visit with this patient was 45 minutes reviewing history, physical exam, MRI imaging review, and implementation of treatment plan or further diagnostic testing Merlin Pope MD,PhD [facility] Orders: Orders MR cervical spine wo con Today G95.9 - Disease of spinal cord, unspecified XR cervical spine 4V Today G95.9 - Disease of spinal cord, unspecified Coding Level of Care Code New Pt Level 4 (88597) Diagnoses Cervical myelopathy G95.9
[2024-07-10 10:52] VITALS: BMI 40.3
--- OUTSIDE RECORDS SUMMARY | 2024-07-10 11:21 | XMS_ITS | Encounter Summary ---
Author Organization [facility] Address [address] [place] [address] Care Team Providers Care Associate School Psychologist Name Role Phone Bijal Fox NP Primary Care Provider [phone] Reason for Referral * Diagnostic Imaging (Routine) - Authorized Specialty Diagnoses / Procedures Referred By Contac t Referred To Contact Diagnoses CKD stage 3a, GFR 45-59 ml/min (HCC) Chronic heart failure with preserved ejection fraction (HCC) Procedures US Kidney and Bladder Complete John Hendricks MD [address] [place] [id number] Phone: tel: fax: Referral ID Status Reason Start Date Expiration Date V isits Requested Visits Authorized [id number] Authorized 07/01/2024 12/31/2025 1 1 Encounter Details Date Type Department Care Team (Late st Contact Info) Description 07/01/2024 3:15 PM EST Office Visit [facility] [address] [place] [address], 2nd [place] [address] John Hendricks MD [address] [place] [id number] Hyperkalemia (Primary Dx); CKD stage 3a, GFR 45-59 ml/min (HCC); Chronic heart failure with preserved ejection fraction (HCC); Primary hypertension Social History Tobacco Use Types Packs/Day Years Used Date Smoking Tobacco: Former Smokeless Tobacco: Never Comments:: Alcohol Use Standard Drinks/Week Comments Not Currently 0 (1 standard drink = 0.6 oz pur e alcohol) [facility] Utilities Answer Date Recorded In the past 12 months has th e electric, gas, oil, or water company threatened to shut off services in your home? No 06/03/2024 Hunger Vital Sign Answer Date Recorded Within the past 12 months, y ou worried that your food would run out before you got the money to buy more. Never true 06/03/19 25 Within the past 12 months, t he food you bought just didn't last and you didn't have money to get more. Never true 06/03/2024 Transportation Answer Date Recorded In the past 12 months, has l ack of reliable transportation kept you from medical appointments, meetings, work or from getting things needed for daily living? No 06/03/2024 Housing Answer Date Recorded Housing Risk Low 2 06/03/2024 Housing Risk Medium Not on file 06/03/2024 Housing Risk High Not on file 06/03/2024 What is your living situation today? [facility] 06/03/2024 Comments No Sex and Gender Information Value Date Recorded Sex Assigned at Female 03/06/2021 4:31 PM EDT Legal Sex Female 1:53 AM EDT Gender Identity Female 03/06/2021 4:31 PM EDT Sexual Orientation Straight 03/06/2021 4: 31 PM EDT documented as of this encounter Last Filed Vital Signs Vital Sign Reading Time Taken Comments Blood Pressure 114/70 07/01/2024 3:13 PM EST Pulse - - Temperature - - Respiratory Rate - - Oxygen Saturation - - Inhaled Oxygen Concentration - - Weight 115.7 kg (255 lb) 07/01/2024 3:13 PM EST Height 167.6 cm (5' 5.98 ) 07/01/2024 3:13 PM ES T Body Mass Index 41.18 07/01/2024 3:13 PM EST documented in this encounter Progress Notes * John Hendricks MD - 07/01/2024 3:25 PM EST [facility] Patient Name: Genie Vora Female Date of : 1950, 73 y.o. Date: 07/01/2024 Assessment & Plan 1. Hyperkalemia 2. CKD stage 3a, GFR 45-59 ml/min ([facility]) 3. Chronic heart failure with preserved ejection fraction (HCC) 4. 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 might be contributing too RECS: -renal imaging -pt education -quantification of proteinuria and examination of urinary sediment -continue to target BP below 140/90 (and even lower if proteinuric) -continue smoking cessation -avoid/minimize use of NSAIDs #HFpEF: - mostly well compensated at present - likely needs higher dose of diuretics -lets wait for lab results - heart healthy diet Orders Placed This Encounter Procedures US Kidney and Bladder Complete Hemoglobin and Hematocrit PTH, Intact (without Calcium) Renal Function Panel Vitamin D, 25-Hydroxy, Total, Immunoassay Urinalysis W/Reflex to Microscopic (No Culture) Protein, Random Urine with Creatinine Microalbumin, Random Urine with Creatinine Magnesium Phosphorus SPEP (Protein Electrophoresis w/Reflex to Immunofixation) Return in about 4 weeks (around 07/29/2024) for Next scheduled follow up. History of Present Illness Genie Vora is a 73 y.o. female with hx of morbid obesity, 30-pack year smoking history, afib with RVR, HTN who was hospitalized for increasing shortness of breath. Found to have community-acquired pneumonia and Grade I diastolic heart failure - she was on iv antibiotics and iv lasix. Responsded well and weaned off of oxygen. She was recurrently hyperkalemic and losartan was held. She was sent home on lokelma 15g daily and the copay for the same is in excess of $400/month. Thus her new PCP,Ms Bijal Fox called me for advise and we were able to get her into the office right awayt. Today, she feels fine. Shortness of breath is steadily better. No new n/v/d/fever/chills/cough/phlegm. Looking back, her creatinine/egfr have been in this range for the past 15+ years. She apparently had trauma to the right kidney and had been bleeding blood clots into her urine about 40 years ago-treated with bedrest and iv fluids back then. CT in [place] from 2019 does not report on any kidney atrophy etc. Denies chronic NSAID use. The following portions of the patient's chart were reviewed in this encounter and updated as appropriate: Allergies Meds Review of Systems Constitutional: Pt denies headaches, dizziness, falls, nausea, vomiting, diarrhea, shortness of breath, chest pain,exertional dyspnea, orthopnea, worsening peripheral edema, dysuria, urgency, frequency or difficulty voiding. Past Medical History: Diagnosis Date Arthritis Hyperkalemia Hypertension Posterior tibial tendinitis History of Posterior tibial tendinitis 2014-09-02 Radial styloid tenosynovitis History of De Quervain's tenosynovitis 2011-07-29 Past Surgical History: Procedure Laterality Date SC ARTHROCENTESIS ASPIR&/INJ MAJOR JT/BURSA W/O US Right History of Arthrocentesis Injection Of Hip Joint Right hip steroid injection SC ARTHROCENTESIS ASPIR&/INJ MAJOR JT/BURSA W/O US Right History of Arthrocentesis Injection Of Hip Joint Right RIGHT HIP INJECTION WITH STEROID SC ARTHROCENTESIS ASPIR&/INJ MAJOR JT/BURSA W/O US Right History of Arthrocentesis Injection Of Hip Joint Right RIGHT HIP INJECTION SC ARTHROCENTESIS ASPIR&/INJ MAJOR JT/BURSA W/O US Right History of Arthrocentesis Injection Of Hip Joint Right RIGHT HIP CORTISONE INJECTION SC KNEE SCOPE,DIAGNOSTIC N/A History of Arthroscopy Knee SC ALVES W/O FACETEC FORAMOT/[facility] 05/23 VRT SEG, CERVICAL N/A History of Laminectomy Lumbar SC LAP,CHOLECYSTECTOMY N/A History of Cholecystectomy Laparoscopic PROCEDURE - HISTORIC N/A History of Lumbar Injection LUMBAR EPIDURAL STEROID INJECTION PROCEDURE - HISTORIC N/A History of Lumbar Injection LUMBAR EPIDURAL STEROID INJECTION PROCEDURE - HISTORIC N/A History of Lumbar Injection LEFT L4 EPIDURAL STEROID INJECTION Social History Tobacco Use Smoking status: Former Smokeless tobacco: Never Tobacco comments: : Substance Use Topics Alcohol use: Not Currently Family History Problem Relation Age of Onset Other Brother Family History of alcoholism Other Mother Family History of Alzheimer's disease Other Mother Family History of arthritis Other Mother Family History of eczema Other Father Family history of Prostate cancer Other Father Family History of hyperlipidemia Other Brother Family History of depression Other Father Family History of depression Other Sister Family History of depression Other Sister Family history of Coagulation disorder, transient Current Outpatient Medications Medication Sig Dispense Refill apixaban (Eliquis) 5 mg tablet Take 1 tablet (5 mg total) by mouth every 12 hours. 60 tablet 0 arformoteroL (Brovana) 15 mcg/2 mL nebulizer solution Inhale 2 mL (15 mcg total) via nebulizer every 12 hours. 120 mL 0 benzonatate (TESSALON) 100 mg capsule Take 1 capsule (100 mg total) by mouth 3 times a day as needed for cough. 30 capsule 0 budesonide (PULMICORT) 0.5 mg/2 mL suspension Inhale 2 mL (0.5 mg total) via nebulizer every 12 hours. Rinse mouth with water after use to reduce aftertaste and incidence of candidiasis. Do not swallow. 120 mL 0 busPIRone (BUSPAR) 7.5 mg tablet Take 7.5 mg by mouth 2 (two) times a day. diltiazem XR (DILACOR XR) 120 mg 24 hr capsule Take 120 mg by mouth once a day. DULoxetine DR (CYMBALTA) 60 mg capsule Take 60 mg by mouth once a day. flecainide (TAMBOCOR) 100 mg tablet Take 100 mg by mouth 2 times a day. furosemide (LASIX) 20 mg tablet Take 1 tablet (20 mg total) by mouth once a day. 30 tablet 0 guaiFENesin ER (MUCINEX) 600 mg tablet Take 1 tablet (600 mg total) by mouth every 12 hours. 60 tablet 0 ipratropium-albuteroL (DUO-NEB) 0.5-2.5 mg/3 mL nebulizer solution Inhale 3 mL via nebulizer every 4 hours as needed for wheezing or shortness of breath. 360 mL 0 levothyroxine (SYNTHROID, LEVOTHROID) 112 mcg tablet Take 1 tablet (112 mcg total) by mouth daily. 30 tablet 0 lisdexamfetamine (VYVANSE) 20 mg capsule Take 20 mg by mouth every morning. methocarbamoL (ROBAXIN) 750 mg tablet Take 750 mg by mouth 3 times a day. nystatin (MYCOSTATIN) 100,000 unit/mL suspension Take 5 mL (500,000 Units total) by mouth 4 times aday. [address] (PROTONIX) 40 mg tablet Take 1 tablet (40 mg total) by mouth once a day. 30 tablet 0 predniSONE (DELTASONE) 10 mg tablet Take 4 tablets (40 mg total) by mouth once a day for 2 days, THEN 3 tablets (30 mg total) once a day for 2 days, THEN 2 tablets (20 mg total) once a day for 2 days, THEN 1 tablet (10 mg total) once a day for 2 days. 20 tablet 0 pregabalin (LYRICA) 150 mg capsule Take 150 mg by mouth 2 times a day. senna (SENOKOT) 8.6 mg tablet Take 2 tablets (17.2 mg total) by mouth once a day. 60 tablet 0 sodium zirconium cyclosilicate (LOKELMA) 5 gram powder in packet powder Take 3 packets (15 g total)by mouth once a day. 30 packet 0 traMADoL (ULTRAM) 50 mg tablet Take 50 mg by mouth every 8 hours as needed for pain. traZODone (DESYREL) 50 mg tablet Take 50 mg by mouth nightly. -- 1-2 TABS EVERY NIGHT, STARTS WITH 50 MG AND TAKES A SECOND TABLET IF NOT SLEEPING No current facility-administered medications for this visit. Allergies Allergen Reactions Prevacid [Lansoprazole] Indigestion Rsjjboy-Yip-Cxh Reductase Inhibitors Muscle Pain Per pt Objective Vitals: 07/01/24 1513 BP: 114/70 BP Location: Left arm Patient Position: Sitting Weight: 115.7 kg (255 lb) Height: 1.676 m (5' 5.98 ) Physical Exam Constitutional: General: She is not in acute distress. Appearance: Normal appearance. She is obese. She is not ill-appearing. HENT: Head: Normocephalic. Nose: Nose normal. Mouth/Throat: Mouth: Mucous membranes are moist. Pharynx: Oropharynx is clear. No oropharyngeal exudate. Eyes: General: Right eye: No discharge. Left eye: No discharge. Conjunctiva/sclera: Conjunctivae normal. Cardiovascular: Rate and Rhythm: Normal rate. Rhythm irregular. Pulses: Normal pulses. Pulmonary: Effort: Pulmonary effort is normal. Breath sounds: Wheezing present. No rales. Abdominal: General: Bowel sounds are normal. Palpations: Abdomen is soft. Musculoskeletal: General: Swelling (trace+) present. Cervical back: Neck supple. No rigidity. Comments: Ambulates with a cane Skin: Capillary Refill: Capillary refill takes less than 2 seconds. Coloration: Skin is not jaundiced or pale. Neurological: General: No focal deficit present. Mental Status: She is alert. Psychiatric: Mood and Affect: Mood normal. Behavior: Behavior normal. No components found for: EGFRAFR No components found for: EGFRNAFR Lab Results Component Value Date/Time CREATININE 1.27 (H) 07/01/2024 08:39 AM CREATININE 1.24 (H) 06/26/2024 06:22 AM CREATININE 1.18 (H) 06/25/2024 07:04 AM CREATININE 1.17 (H) 06/24/2024 12:58 PM CREATININE 1.23 (H) 06/24/2024 07:27 AM CREATININE 1.08 06/23/2024 07:13 AM BUN 34 (H) 07/01/2024 08:39 AM BUN 33 (H) 06/26/2024 06:22 AM BUN 34 (H) 06/25/2024 07:04 AM BUN 37 (H) 06/24/2024 12:58 PM BUN 37 (H) 06/24/2024 07:27 AM BUN 36 (H) 06/23/2024 07:13 AM GLUCOSE 113 (H) 07/01/2024 08:39 AM GLUCOSE 85 06/26/2024 06:22 AM GLUCOSE 86 06/25/2024 07:04 AM GLUCOSE 129 (H) 06/24/2024 12:58 PM GLUCOSE 134 (H) 06/24/2024 07:27 AM GLUCOSE 119 (H) 06/23/2024 07:13 AM GLUCOSE, EST AVG 108 01/09/2009 08:43 AM GLUCOSE, URINE Negative 11/04/2014 09:44 PM GLUCOSE, URINE Negative 10/23/2014 03:46 PM GLUCOSE, URINE Negative 01/16/2011 04:00 AM GLUCOSE, URINE Negative 01/12/2011 08:12 AM GLUCOSE, URINE Negative 01/10/2011 09:30 PM GLUCOSE, URINE Negative 01/07/2011 03:35 PM KETONES, UA Negative 11/04/2014 09:44 PM KETONES, UA Negative 10/23/2014 03:46 PM KETONES, UA Negative 01/16/2011 04:00 AM KETONES, UA Negative 01/12/2011 08:12 AM KETONES, UA Negative 01/10/2011 09:30 PM KETONES, UA Negative 01/07/2011 03:35 PM CLINICAL HISTORY, CONVERSION 09/01/2014 12:22 PM Dysphagia. Edited by: [id number] - [id number] - [id number] YASMINE CLINICAL HISTORY, CONVERSION 08/02/2013 04:39 PM Left wrist dequervain's and left carpal tunnel syndrome. Left wrist mass. Edited by: [id number] - 1747 APRIL CLINICAL HISTORY, CONVERSION 04/08/2010 03:39 PM Dyspepsia. Suspected gastroesophageal reflux disease. Dictated by: LACY CARBAJAL Edited by: [id number] - 2022 [place] [id number] CLINICAL HISTORY, CONVERSION 09/21/2006 02:09 PM Cholelithiasis. Edited by: [id number] - 1436 [facility] CLINICAL HISTORY, CONVERSION 04/26/2001 11:41 AM 50 year old female with a preop diagnosis of stress incontinence, urethral hypermobility, a rectocele and prolapsed cervix. The patient underwent abdominal hysterectomy and repair of rectocele. Edited by: [id number] - 1657 CLAUDIO CLINICAL HISTORY, CONVERSION 07/19/1999 12:15 PM Endometrial biopsy Edited by: [id number] - 0810 [place] ALBUMIN 4.0 06/17/2024 07:03 AM ALBUMIN 3.9 06/02/2024 04:50 PM ALBUMIN 3.7 01/09/2009 08:43 AM ALBUMIN 4.2 01/23/2007 12:01 AM TSH 0.874 06/17/2024 07:03 AM TSH 6.720 (H) 06/04/2024 06:06 AM TSH 1.75 01/07/2011 12:33 PM TSH 2.93 01/09/2009 08:43 AM TSH 2.00 08/18/2006 03:49 PM AST 23 06/17/2024 07:03 AM AST 111 (H) 06/02/2024 04:50 PM AST 22 03/23/2012 02:36 PM AST 18 08/09/2011 11:52 AM AST 20 04/01/2010 11:17 AM AST 18 01/09/2009 08:43 AM AST 24 01/23/2007 12:01 AM AST 28 08/18/2006 03:49 PM ALT 26 06/17/2024 07:03 AM ALT 99 (H) 06/02/2024 04:50 PM ALT 25 03/23/2012 02:36 PM ALT 19 08/09/2011 11:52 AM ALT 22 04/01/2010 11:17 AM ALT 19 01/09/2009 08:43 AM ALT 25 01/23/2007 12:01 AM ALT 39 08/18/2006 03:49 PM Lab Results Component Value Date/Time CALCIUM 8.9 07/01/2024 08:39 AM CALCIUM 9.0 06/26/2024 06:22 AM CALCIUM 8.7 06/25/2024 07:04 AM CALCIUM 9.1 06/24/2024 12:58 PM CALCIUM 8.7 06/24/2024 07:27 AM CALCIUM 8.8 06/23/2024 07:13 AM Lab Results Component Value Date/Time WBC 15.0 (H) 06/26/2024 06:22 AM WBC 14.6 (H) 06/25/2024 07:04 AM WBC 15.1 (H) 06/24/2024 07:27 AM WBC 17.3 (H) 06/23/2024 07:13 AM WBC 13.0 (H) 06/19/2024 06:15 AM WBC 11.6 (H) 06/17/2024 07:03 AM WBC, UA 32 (H) 11/04/2014 09:44 PM WBC, UA 1 01/16/2011 04:00 AM RBC 4.51 06/26/2024 06:22 AM RBC 4.09 (L) 06/25/2024 07:04 AM RBC 4.13 (L) 06/24/2024 07:27 AM RBC 4.18 (L) 06/23/2024 07:13 AM RBC 3.87 (L) 06/19/2024 06:15 AM RBC 3.94 (L) 06/17/2024 07:03 AM RBC DISTRIBUTION WIDTH 43.5 06/26/2024 06:22 AM RBC DISTRIBUTION WIDTH 42.6 06/25/2024 07:04 AM RBC DISTRIBUTION WIDTH 42.5 06/24/2024 07:27 AM RBC DISTRIBUTION WIDTH 43.3 06/23/2024 07:13 AM RBC DISTRIBUTION WIDTH 41.9 06/19/2024 06:15 AM RBC DISTRIBUTION WIDTH 42.6 06/17/2024 07:03 AM RBC, UA 0 11/04/2014 09:44 PM RBC, UA <1 01/16/2011 04:00 AM MCV 89.8 06/26/2024 06:22 AM MCV 88.0 06/25/2024 07:04 AM MCV 87.7 06/24/2024 07:27 AM MCV 89.0 06/23/2024 07:13 AM MCV 87.3 06/19/2024 06:15 AM MCV 89.8 06/17/2024 07:03 AM HGB A1C 5.4 01/09/2009 08:43 AM Lab Results Component Value Date/Time CHOL HDL RATIO 2.5 03/23/2012 02:36 PM CHOL HDL RATIO 4.3 01/07/2011 12:33 PM CHOL HDL RATIO 4.0 04/01/2010 11:17 AM CHOL HDL RATIO 3.0 01/09/2009 08:43 AM CHOL HDL RATIO 3.8 08/18/2006 03:49 PM CHOLESTEROL 260 (H) 03/23/2012 02:36 PM CHOLESTEROL 265 (H) 01/07/2011 12:33 PM CHOLESTEROL 279 (H) 04/01/2010 11:17 AM CHOLESTEROL 219 (H) 01/09/2009 08:43 AM CHOLESTEROL 255 (H) 08/18/2006 03:49 PM CHOLESTEROL NON-HDL 155 03/23/2012 02:36 PM CHOLESTEROL NON-HDL 203 01/07/2011 12:33 PM CHOLESTEROL NON-HDL 210 04/01/2010 11:17 AM CHOLESTEROL NON-HDL 146 01/09/2009 08:43 AM HDL 105 (H) 03/23/2012 02:36 PM HDL 62 (H) 01/07/2011 12:33 PM HDL 69 (H) 04/01/2010 11:17 AM HDL 73 (H) 01/09/2009 08:43 AM HDL 68 (H) 08/18/2006 03:49 PM TRIGLYCERIDES 73 03/23/2012 02:36 PM TRIGLYCERIDES 176 (H) 01/07/2011 12:33 PM TRIGLYCERIDES 180 (H) 04/01/2010 11:17 AM TRIGLYCERIDES 122 01/09/2009 08:43 AM TRIGLYCERIDES 129 08/18/2006 03:49 PM Lab Results Component Value Date/Time UROBILINOGEN, UA Normal 11/04/2014 09:44 PM UROBILINOGEN, UA Normal 10/23/2014 03:46 PM UROBILINOGEN, UA Normal 01/16/2011 04:00 AM UROBILINOGEN, UA Normal 01/12/2011 08:12 AM UROBILINOGEN, UA Normal 01/10/2011 09:30 PM UROBILINOGEN, UA Normal 01/07/2011 03:35 PM NITRITE, UA Negative 11/04/2014 09:44 PM NITRITE, UA Negative 10/23/2014 03:46 PM NITRITE, UA Negative 01/16/2011 04:00 AM NITRITE, UA Negative 01/12/2011 08:12 AM NITRITE, UA Negative 01/10/2011 09:30 PM NITRITE, UA Negative 01/07/2011 03:35 PM John Hendricks MD @[email or web address]@ documented in this encounter Plan of Treatment Upcoming Encounters Date Type Department Care Team (Late st Contact Info) Description 08/01/2024 2:00 PM EDT Follow-Up [facility] [address] [place] [address] [address] [place] [address] John Hendricks MD [address] [place] [address] 01/08/2025 10:00 AM EDT Follow-Up [address] [facility]iology [address] [place] [address] [address] [place] [address] Mabel Onofre NP 100 [facility] [address] [place] [address] Scheduled Orders Name Type Priority Associated Diagnoses Orde r Schedule US Kidney and Bladder Complete Imaging Routine CKD stage 3a, GFR 45-59 ml/min (HCC) Chronic heart failure with preserved ejection fraction (HCC) Expected: 07/01/2024, Expires: 08/29/2025 documented as of this encounter Procedures * Due to [place] state law, this organization might not be sharing negative HIV tests. Procedure Name Priority Date/Time Associated Diagnosis Comments MICROSCOPIC URINALYSIS ONLY Routine 07/02/2024 9:17 AM EST Hyperkalemia CKD stage 3a, GFR 45-59 ml/min (HCC) Chronic heart failure with preserved ejection fraction (HCC) Primary hypertension URINALYSIS W/REFLEX TO MICROSCOPIC (NO CULTURE) Routine 07/02/2024 9:17 AM EST Hyperkalemia CKD stage 3a, GFR 45-59 ml/min (HCC) Chronic heart failure with preserved ejection fraction (HCC) Primary hypertension PROTEIN ELECTROPHORESIS W/REFLEX TO IMMUNOFIXATION, SERUM Routine 07/02/2024 9:17 AM EST Hyperkalemia CKD stage 3a, GFR 45-59 ml/min (HCC) Chronic heart failure with preserved ejection fraction (HCC) Primary hypertension HEMOGLOBIN AND HEMATOCRIT Routine 07/02/2024 9:17 AM EST Hyperkalemia CKD stage 3a, GFR 45-59 ml/min (HCC) Chronic heart failure with preserved ejection fraction (HCC) Primary hypertension MICROALBUMIN, RANDOM URINE WITH CREATININE Routine 07/02/2024 9:17 AM EST Hyperkalemia CKD stage 3a, GFR 45-59 ml/min (HCC) Chronic heart failure with preserved ejection fraction (HCC) Primary hypertension PROTEIN, RANDOM URINE WITH CREATININE Routine 07/02/2024 9:17 AM EST Hyperkalemia CKD stage 3a, GFR 45-59 ml/min (HCC) Chronic heart failure with preserved ejection fraction (HCC) Primary hypertension VITAMIN D, 25-HYDROXY, TOTAL, IMMUNOASSAY Routine 07/02/2024 9:17 AM EST Hyperkalemia CKD stage 3a, GFR 45-59 ml/min (HCC) Chronic heart failure with preserved ejection fraction (HCC) Primary hypertension PTH, INTACT (WITHOUT CALCIUM) Routine 07/02/2024 9:17 AM EST Hyperkalemia CKD stage 3a, GFR 45-59 ml/min (HCC) Chronic heart failure with preserved ejection fraction (HCC) Primary hypertension MAGNESIUM Routine 07/02/2024 9:17 AM EST Hyperkalemia CKD stage 3a, GFR 45-59 ml/min (HCC) Chronic heart failure with preserved ejection fraction (HCC) Primary hypertension RENAL FUNCTION PANEL Routine 07/02/2024 9:17 AM EST Hyperkalemia CKD stage 3a, GFR 45-59 ml/min (HCC) Chronic heart failure with preserved ejection fraction (HCC) Primary hypertension documented in this encounter Results * Due to [place] state law, this organization might not be sharing negative HIV tests. * (ABNORMAL) Microscopic Urinalysis Only (07/02/2024 9:17 AM EST) RBC, Urine 5-10(A) None Seen, 0-2 /HPF 07/02/2024 10:07 AM EST [facility] WBC, Urine 0-2 None Seen, 0-2 /HPF 07/02/2024 10:07 AM EST [facility] Squamous Epithelial Cells, Urine 0-2 /HPF 07/02/2024 10:07 AM EST [facility] Bacteria, Urine Occasional (A) None Seen /HPF 07/02/2024 10:07 AM EST [facility] Urine Urine specimen collection, clean catch / Unknown Non-Blood Collection / Unknown 07/02/2024 9:17 AM EST 07/02/2024 9:36 AM EST us John Hendricks MD LAB URINE ORDERABLES Final Resul t [facility] [address] [facility] [address] [address], * (ABNORMAL) SPEP (Protein Electrophoresis w/Reflex to Immunofixation) (07/02/2024 9:17 AM EST) Protein, Total 5.8(L) 6.1 - 8.1 g/dL 07/04/2024 8:59 AM EST [facility] Albumin 3.6(L) 3.8 - 4.8 g/dL 07/04/2024 8:59 AM EST [facility] Alpha 1 Globulin 0.3 0.2 - 0.3 g/dL 07/04/2024 8:59 AM EST [facility] Alpha 2 Globulin 0.8 0.5 - 0.9 g/dL 07/04/2024 8:59 AM EST [facility] Beta 1 Globulin 0.4 0.4 - 0.6 g/dL 07/04/2024 8:59 AM EST [facility] Beta 2 Globulin 0.3 0.2 - 0.5 g/dL 07/04/2024 8:59 AM EST [facility] Gamma Globulin 0.4(L) 0.8 - 1.7 g/dL 07/04/2024 8:59 AM EST [facility] Interpretation See Comments 07/04/2024 8:59 AM EST [facility] Comment: Consistent with hypogammaglobulinemia. Serum free light chains or urine immunofixation should be considered if plasma cell dyscrasias are a possible clinical diagnosis. Blood Structure of peripheral vein / Unknown Venipuncture / Unknown 07/02/2024 9:17 AM EST 07/02/2024 9:29 AM EST [facility] HILARY DAVID - 07/04/2024 8:59 AM EST [facility] Received Date: John Hendricks MD LAB BLOOD ORDERABLES Final Resul t HILARY DAVID [address] [facility] [address], [place] [address], [place] [phone] * Magnesium (07/02/2024 9:17 AM EST) MG 1.9 1.5 - 2.5 mg/dL 07/02/2024 10:01 AM EST [facility] Blood Structure of peripheral vein / Unknown Venipuncture / Unknown 07/02/2024 9:17 AM EST 07/02/2024 9:29 AM EST John Hendricks MD LAB BLOOD ORDERABLES Final Resul t Performing Organization Address City/[facility] Co de Phone Number [facility] [address] [address], [place] [phone] * Microalbumin, Random Urine with Creatinine (07/02/2024 9:17 AM EST) Creatinine, Urine 55 mg/dL 07/02/2024 2:41 PM EST [facility] Microalbumin, Urine 4 <=20 mg/L 07/02/2024 2:41 PM EST [facility] Microalb/Creat Ratio, Random Urine 7.3 1.3 - 30.0 mg/g 07/02/2024 2:41 PM EST [facility] Urine Voided urine specimen / Unknown Non-Blood Collection / Unknown 07/02/2024 9:17 AM EST 07/02/2024 9:36 AM EST John Hendricks MD LAB URINE ORDERABLES Final Resul t Performing Organization Address [facility] Co de Phone Number [facility] [address] [place] [address], [place] [phone] * Protein, Random Urine with Creatinine (07/02/2024 9:17 AM EST) Protein, Urine 6 mg/dL 07/02/2024 2:41 PM EST [facility] Creatinine, Urine 55 mg/dL 07/02/2024 2:41 PM EST [facility] Protein/Creati nine Ratio 109 <200 mg/gmCr 07/02/2024 2:41 PM EST [facility] Urine Voided urine specimen / Unknown Non-Blood Collection / Unknown 07/02/2024 9:17 AM EST 07/02/2024 9:36 AM EST John Hendricks MD LAB URINE ORDERABLES Final Resul t Performing Organization Address City/[facility] Co de Phone Number [facility] [address] [address], [place] [phone] * (ABNORMAL) Urinalysis W/Reflex to Microscopic (No Culture) (07/02/2024 9:17 AM EST) Color, Urine Yellow Yellow 07/02/2024 9:44 AM EST [facility] Clarity, Urine Clear Clear 07/02/2024 9:44 AM EST [facility] Specific [place], Urine 1.015 1.005 - 1.030 07/02/2024 9:44 AM EST [facility] pH, Urine 5.5 5.0 - 8.0 07/02/2024 9:44 AM EST [facility] Protein, Urine Negative Negative mg/dL 07/02/2024 9:44 AM EST [facility] Glucose, Urine Negative Negative mg/dL 07/02/2024 9:44 AM EST [facility] Ketones, Urine Negative Negative mg/dL 07/02/2024 9:44 AM EST [facility] Bilirubin, Urine Negative Negative 07/02/2024 9:44 AM EST [facility] Blood, Urine Small(A) Negative 07/02/2024 9:44 AM EST [facility] Nitrite, Urine Negative Negative 07/02/2024 9:44 AM EST [facility] Urobilinogen, Urine 0.2 0.2 - 1.0 E.U./dL 07/02/2024 9:44 AM EST [facility] Leukocyte Esterase, Urine Small(A) Negative 07/02/2024 9:44 AM EST [facility] Urine Urine specimen collection, clean catch / Unknown Non-Blood Collection / Unknown 07/02/2024 9:17 AM EST 07/02/2024 9:36 AM EST John Hendricks MD LAB URINE ORDERABLES Final Resul t Performing Organization Address [facility] Co de Phone Number [facility] [address] [address], [place] [phone] * (ABNORMAL) Vitamin D, 25-Hydroxy, Total, Immunoassay (07/02/2024 9:17 AM EST) Pathologist [facility] Vitamin D 25-OH 22.50(L) 30.00 - 80.00 ng/mL 07/02/2024 11:24 AM EST [facility] Blood Structure of peripheral vein / Unknown Venipuncture / Unknown 07/02/2024 9:17 AM EST 07/02/2024 9:29 AM EST John Hendricks MD LAB BLOOD ORDERABLES Final Resul t [facility] [address] [address], [place] [phone] * (ABNORMAL) Renal Function Panel (07/02/2024 9:17 AM EST) Pathologist [facility] NA 138 136 - 145 mmol/L 07/02/2024 10:02 AM EST [facility] K 4.4 3.5 - 5.1 mmol/L 07/02/2024 10:02 AM EST [facility] Comment:ALL DELTAS REVIEWED Cl 101 98 - 109 mmol/L 07/02/2024 10:02 AM EST [facility] CO2 26 22 - 32 mmol/L 07/02/2024 10:02 AM EST [facility] Anion Gap 15 >=0 07/02/2024 10:02 AM EST [facility] Glucose 115(H) 60 - 99 mg/dL 07/02/2024 10:02 AM EST [facility] BUN 37(H) 8 - 23 mg/dL 07/02/2024 10:02 AM [facility] Creatinine 1.47(H) 0.50 - 1.12 mg/dL 07/02/2024 10:02 AM EST [facility] Calcium 8.8 8.4 - 10.4 mg/dL 07/02/2024 10:02 AM EST [facility] Phosphorus 3.6 2.5 - 4.5 mg/dL 07/02/2024 10:02 AM EST [facility] Albumin 3.8 3.5 - 5.0 g/dL 07/02/2024 10:02 AM EST [facility] eGFR 38(L) >=60 mL/min/1. 73m2 07/02/2024 10:02 AM EST [facility] Comment:The estimated glomer ular filtration rate (eGFR) is calculated using a new formula developed by the NKF-ASN task force to eliminate race-based correction factors. The new formula uses serum/plasma creatinine, age, and gender to determine eGFR. A value below 60mls/min might indicate kidney disease and will be flagged. For additional information, see Zaida et al, Am J Kidney Dis. 2021;79(2):268- 288, A Unifying Approach for GFR estimation: Recommendations of the NKF-ASN Task Force on Reassessing the Inclusion of Race in Diagnosing Kidney Disease . Blood Structure of peripheral vein / Unknown Venipuncture / Unknown 07/02/2024 9:17 AM EST 07/02/2024 9:29 AM EST John Hendricks MD LAB BLOOD ORDERABLES Final Resul t [facility] [address] [facility] [address] [place] [address], * (ABNORMAL) PTH, Intact (without Calcium) (07/02/2024 9:17 AM EST) Parathyroid Hormone, Intact 226.0(H) 14.5 - 87.1 pg/mL 07/02/2024 11:19 AM EST [facility] Comment: This test was performed using the chemiluminescent immunoassay (CLIA) intended for the quantitative determination of intact human parathyroid hormone method on the DIASOOpenText LIAISON. Values obtained from different assay methods cannot be used interchangeably. Assay results should be utilized in conjunction with other clinical and laboratory data Blood Structure of peripheral vein / Unknown Venipuncture / Unknown 07/02/2024 9:17 AM EST 07/02/2024 9:29 AM EST John Hendricks MD LAB BLOOD ORDERABLES Final Resul t Performing Organization Address [facility]/ZIP Co de Phone Number [facility] [address] [address], [place] [phone] * Hemoglobin and Hematocrit (07/02/2024 9:17 AM EST) Hemoglobin 12.0 11.7 - 15.5 g/dL 07/02/2024 9:38 AM EST [facility] Hematocrit 37.1 35.7 - 45.8 % 07/02/2024 9:38 AM EST [facility] Blood Structure of peripheral vein / Unknown Venipuncture / Unknown 07/02/2024 9:17 AM EST 07/02/2024 9:29 AM EST John Hendricks MD LAB BLOOD ORDERABLES Final Resul t Performing Organization Address City/[facility] Co de Phone Number [facility] [address] [address], [place] [phone] documented in this encounter Visit Diagnoses Diagnosis Hyperkalemia- Primary Hyperpotassemia CKD stage 3a, GFR 45-59 ml/min (HCC) Chronic heart failure with preserved ejection fraction (HCC) Primary hypertension Unspecified essential hypertension documented in this encounter Care Teams Associate School Psychologist Relationship Specialty Start Date End Date Bijal Fox NP [address] [place] [address] [address] [place] [address] PCP - General Family Medicine 05/30/24 documented as of this encounter
--- OUTSIDE RECORDS SUMMARY | 2024-07-10 11:21 | XMS_ITS | Encounter Summary ---
Author Organization [facility] Address [address] [place] [address] Care Team Providers Care Opal Miner Name Role Phone Brandyn Pagan MD Primary Care Provider Radha Cuevas NP Unavailable Unavailable Unknown Pcp, Non [facility] Primary Care Provider Unava ilable Encounter Details Date Type Department Care Team (Late st Contact Info) Description 11/13/2015 Orders Only [facility] [address] [place] [address] Brandyn Pagan MD Social History Tobacco Use Types Packs/Day Years Used Date Smoking Tobacco: Former Cigarettes 1 40 0 11/02/1967 - 11/02/2007 Alcohol Use Standard Drinks/Week Comments Yes 0 (1 standard drink = 0.6 oz pur e alcohol) socially Comments No Sex and Gender Information Value Date Recorded Sex Assigned at Not on file Legal Sex Female 12:00 AM EDT Gender Identity Not on file Sexual Orientation Not on file documented as of this encounter Progress Notes * Arminda Serrano - 11/16/2015 10:46 AM EDTQuick Note: Letter sent. EV * Makayla Rojas - 11/16/2015 9:39 AM EDTQuick Note: Complete atb call md with any further concerns * Brandyn Pagan - 11/16/2015 9:03 AM EDTQuick Note: Pyuria No hematuria + E coli rx nitrofurantoin as long as the pt is asymptomatic and/or recent symptoms resolved no further eval or treatment needed documented in this encounter Plan of Treatment Not on file documented as of this encounter Goals Goal Patient Goal Type Associated Problems Recent Progress Patient-Stated? Author Blood Pressure < 140/90 Blood Pressure 120/73( 017 9:26 AM EDT) No Radha Spangler, MEY documented as of this encounter Procedures * Due to [place] law, this organization might not be sharing negative HIV tests. Procedure Name Priority Date/Time Associated Diagnosis Comments URINALYSIS, DIP ONLY STAT (All results called to provider) 11/13/2015 1:00 PM EDT Urinary tract infection, site unspecified CULTURE, URINE, ROUTINE Routine 11/13/19 16 12:24 PM EDT Urinary tract infection, site unspecified C-REACTIVE PROTEIN (CRP) - INFLAMMATION Routine 11/13/2015 12:24 PM EDT Muscle ache ERYTHROCYTE SEDIMENTATION RATE (ESR) Routine 11/13/2015 12:24 PM EDT Muscle ache ALANINE AMINOTRANSFERASE (ALT), SERUM Routine 11/13/2015 12:24 PM EDT Routine history and physical examination of adult CREATINE KINASE (CK), SERUM Routine 11/13/2015 12:24 PM EDT Routine history and physical examination of adult URINALYSIS, MICROSCOPIC Routine 11/13/19 16 12:24 PM EDT Urinary tract infection, site unspecified documented in this encounter Results * Due to [place] law, this organization might not be sharing negative HIV tests. * (ABNORMAL) URINALYSIS, DIP ONLY ( SITE STAT ONLY) (11/13/2015 1:00 PM EDT) COLOR (URINE) YELLOW [facility] (CLIA# [id number]) APPEARANCE (URINE) CLEAR [facility] (CLIA# [id number]) SPECIFIC GRAVITY 1.015 1.001 - 1.035 [facility] (CLIA# [id number]) PH (URINE) 6.0 5.0 - 8.0 [facility] (CLIA# [id number]) PROTEIN (URINE) NEGATIVE Neg [facility] (CLIA# [id number]) GLUCOSE (URINE) NEGATIVE Neg [facility] (CLIA# [id number]) Ketones (Urine) NEGATIVE Neg [facility] (CLIA# [id number]) BILIRUBIN (URINE) NEGATIVE Neg [facility] (CLIA# [id number]) BLOOD (URINE) NEGATIVE Neg [facility] (CLIA# [id number]) Leukocyte esterase (Urine) 1+(A) [facility] (CLIA# [id number]) NITRITE (URINE) NEGATIVE Neg [facility] (CLIA# [id number]) Urine specimen obtained by clean catch procedure (specimen) 11/13/2015 1:00 PM EDT Narrative [facility] (CLIA# [id number]) - 11/13/2015 1:00 PM EDT Micro and culture already ordered per provider. us Brandyn Pagan MD LAB SAME DAY RESULT Final Resul t [facility] (CLIA# [id number]) [address] [place] [address] * CREATINE KINASE (CK), SERUM (11/13/2015 12:24 PM EDT) CPK 143 29 - 143 U/L [facility] Comment:{CREATINE KINASE, TO KENZIE {[id number]) 11/13/2015 12:2 4 PM EDT 11/13/2015 10:19 PM EDT Narrative Resulting Agency Comment [id number] us Brandyn Pagan MD LAB SAME DAY RESULT Final Resul t Performing Organization Address [facility] de Phone Number [facility] [address] [place] [address] * ALANINE AMINOTRANSFERASE (ALT), SERUM (11/13/2015 12:24 PM EDT) ALT (SGPT) 29 6 - 29 U/L [facility] Comment:{ALT {[id number]) 11/13/2015 12:2 4 PM EDT 11/13/2015 10:19 PM EDT Narrative Resulting Agency Comment [id number] Brandyn Pagan MD LAB SAME DAY RESULT Final Resul t Performing Organization Address [facility] de Phone Number [facility] [address] [place] [address] * C-REACTIVE PROTEIN (CRP) - INFLAMMATION (11/13/2015 12:24 PM EDT) C reactive protein 0.28 <0.80 mg/dL [facility] Comment: {C-REACTIVE PROTEIN {[id number]) Please be advised that patients taking Carboxypenicillins may exhibit falsely decreased C-Reactive Protein levels due to an analytical interference in this assay. 11/13/2015 12:2 4 PM EDT 11/13/2015 10:19 PM EDT Narrative Resulting Agency Comment [id number] Brandyn Pagan MD LABORATORY Final Result Performing Organization Address [facility] de Phone Number [facility] [address] [place] [address] * ERYTHROCYTE SEDIMENTATION RATE (ESR), WESTERGREN (11/13/2015 12:24 PM EDT) Sedimentation Rate [place] (ESR) 6 < OR = 30 mm/h [facility] Comment:{SED RATE BY MODIFBILLIE D JAZMINEREN {[id number]) 11/13/2015 12:2 4 PM EDT 11/13/2015 10:19 PM EDT Narrative Resulting Agency Comment [id number] us Brandyn Pagan MD LAB SAME DAY RESULT Final Resul t [facility] [address] [facility] [place] [address] * (ABNORMAL) CULTURE, URINE, ROUTINE (11/13/2015 12:24 PM EDT) Bacteria culture (Urine) SEE NOTE(A) [facility] Comment: {CULTURE, URINE, ROUTINE {[id number]) ??CULTURE, URINE, ROUTINE ??MICRO NUMBER: ?[id number] ??TEST STATUS: ? FINAL ??SPECIMEN SOURCE: ?? URINE ??SPECIMEN QUALITY: ??ADEQUATE ??RESULT: ?50,000-100,000 CFU/mL of Escherichia coli ?E.coli ?INT ?? VLADIMIR ?? AMOX/CLAVULANATE ? S ? 4 ?? AMPICILLIN ? R ? >=32 ?? AMP/SULBACTAM ?I ? 16 ?? CEFAZOLIN ?NR ?<=4 1 ?? CEFEPIME ? S ? <=1 ?? CEFTRIAXONE ?S ? <=1 ?? CIPROFLOXACIN ?S ? <=0.25 ?? ERTAPENEM ?S ? <=0.5 ?? GENTAMICIN ? S ? <=1 ?? IMIPENEM ? S ? <=0.25 ?? LEVOFLOXACIN ? S ? <=0.12 ?? NITROFURANTOIN ? S ? <=16 ?? PIP/TAZOBACTAM ? S ? <=4 ?? TOBRAMYCIN ? S ? <=1 ?? TRIMETHOPRIM/SULFA ? S ? <=20 S=Susceptible ??I=Intermediate ??R=Resistant ??* = Not Tested NR = Not Reported ??NN = See Therapy Comments THERAPY COMMENTS ?Note 1: ?ORAL therapy: A cefazolin VLADIMIR of < 32 predicts ?susceptibility to the oral agents cefaclor, ?cefdinir, cefpodoxime, cefprozil, cefuroxime, ?cephalexin, and loracarbef when used for therapy ?of uncomplicated UTIs due to E. coli, ?K. pneumoniae, and P. mirabilis. ?PARENTERAL therapy: A cefazolin VLADIMIR of > 8 ?indicates resistance to parenteral cefazolin. ?An alternate test method must be performed to ?to confirm susceptibility to parenteral cefazolin. 11/13/2015 12:2 4 PM EDT 11/13/2015 10:19 PM EDT Narrative Resulting Agency Comment [id number] us Brandyn Pagan MD LABORATORY Final Result [facility] [address] [place] [address] * (ABNORMAL) URINALYSIS, MICROSCOPIC (11/13/2015 12:24 PM EDT) WBC (Urine) 10-20(A) < OR = 5 /HPF [facility] Comment:{WBC {[id number]) RBC (Urine Sed) NONE SEEN < OR = 2 /HPF [facility] Comment:{RBC {[id number]) Epithelial cells.squamous (Urine sed) 0-5 < OR = 5 /HPF [facility] Comment:{SQUAMOUS EPITHELIAL CELLS {[id number]) Bacteria (Urine) NONE SEEN NONE SEEN /HPF [facility] Comment:{BACTERIA {[id number]) Hyaline casts (Urine sed) NONE SEEN NONE SEEN /LPF [facility] Comment:{HYALINE CAST {[id number]) 11/13/2015 12:2 4 PM EDT 11/13/2015 10:19 PM EDT Narrative Resulting Agency Comment [id number] us Brandyn Pagan MD LAB SAME DAY RESULT Final Resul t [facility] [address] [place] [address] documented in this encounter Visit Diagnoses Diagnosis Urinary tract infection, site unspecified Muscle ache Mylagia and myositis, unspecified Routine history and physical examination of adult Routine general medical examination at a health care facility documented in this encounter Care Teams Opal Miner Relationship Specialty Start Date End Date Brandyn Pagan MD PCP - General Internal Medicine 08/07/15 02/02/17 Radha Spangler NP PCP - Backup PCP Internal Medicine 01/11/16 02/02/17 Unknown Pcp, Non Rmg PCP - General 02/03/17 documented as of this encounter
--- OUTSIDE RECORDS SUMMARY | 2024-07-10 11:21 | XMS_ITS | Encounter Summary ---
Author Organization [facility] Address [address] [place] [address] Care Team Providers Care Project Administrator Name Role Phone Bijal Fox JOINTER MACHINE OPERATOR Primary Care Provider [phone] Encounter Details Date Type Department Care Team (Late st Contact Info) Description 07/01/2024 Orders Only [facility] [address] [facility] Cardiology [address] [place] [address] [address] [place] [address] Mabel Onofre NP 100 [facility] [address] [place] [address] Social History Tobacco Use Types Packs/Day Years Used Date Smoking Tobacco: Former Smokeless Tobacco: Never Comments:: Alcohol Use Standard Drinks/Week Comments Not Currently 0 (1 standard drink = 0.6 oz pur e alcohol) [facility] Utilities Answer Date Recorded In the past 12 months has e electric, gas, oil, or water company [...] PM EDT documented as of this encounter Plan of Treatment Upcoming Encounters Date Type Department Care Team (Late st Contact Info) Description 08/01/2024 2:00 PM EDT Follow-Up [facility] Nephrology [address] [place] [address] [address] [place] [address] John Hendricks MD 123 [facility] [address] [place] [address] 01/08/2025 10:00 AM EDT Follow-Up [address] Cardiology [address] [place] [address] [address] [place] [address] Mabel Onofre NP [address] [place] [address] [address] [place] [address] documented as of this encounter Visit Diagnoses Not on filedocumented in this encounter Care Teams Project Administrator Relationship Specialty Start Date End Date Bijal Fox NP [address] [place] [address] [address] [place] [address] PCP - General Family Medicine 05/30/24 documented as of this encounter
--- OUTSIDE RECORDS SUMMARY | 2024-07-10 11:21 | XMS_ITS | Encounter Summary ---
Author Organization [facility] Address [address] [place] [address] Care Team Providers Care Well Flow Operator Name Role Phone Brandyn Pagan MD Primary Care Provider Radha Cuevas NP Unavailable Unavailable Unknown Pcp, Non [facility] Primary Care Provider Unava ilable Encounter Details Date Type Department Care Team (Late st Contact Info) Description 10/06/2015 Orders Only [facility] [address] [place] [address] Brandyn Pagan MD Social History Tobacco Use Types Packs/Day Years Used Date Smoking Tobacco: Never Assessed Comments Unknown Sex and Gender Information Value Date Recorded Sex Assigned at Not on file Legal Sex Female 12:00 AM EDT Gender Identity Not on file Sexual Orientation Not on file documented as of this encounter Progress Notes * Brandyn Pagan - 10/08/2015 9:26 PM EDTQuick Note: rx nitrofurantoin - appropriate Elevated uric acid consistent with gout As long as episode of gout is successfully treated and as long as pt is not experiencing frequent gouty attacks (?4-6 a year) there is not need to treat the elevated uric acid. If symptoms are resistant to treatment or if there are frequent attacks we can consider a med to lower the uric acid levelbut this would e a daily med taken over a long period of time (years) * Brandyn Pagan - 10/08/2015 9:14 AM EDTQuick Note: Urine has wbc , no rbc Placed on nitrofurantoin already If she has irritative voiding symptoms she should finish the nitrofurantoin. For symptoms resolved this does not need follow-up. But As long as patient has no urinary symptoms - dysuria, frequency, urgency - these results are acceptable and no further action is needed But is symptomatic would arrange c/s and empirically treat according to protocol Re lipids This patient has not yet been seen here in the office. I cannot construct a proper risk profile. I cannot run the [place] [employer] risk calculator. The decision related to her cholesterol levels and whether or not she is a candidate for treatment we'll need to wait until she is seen and ev aluated. She is on several controlled substances. Please inform her that we will not be able to continue to prescribe those to her without her being evaluated here in the office. Please make sure that this, is appropriately charted so that prescriptions and not inadvertently approved. documented in this encounter Plan of Treatment Not on file documented as of this encounter Procedures * Due to [place] law, this organization might not be sharing negative HIV tests. Procedure Name Priority Date/Time Associated Diagnosis Comments URINALYSIS, DIP ONLY STAT (All results called to provider) 10/06/2015 11:19 AM EDT Urinary tract infection, site unspecified CULTURE, URINE, ROUTINE Routine 10/06/2015 10:11 AM EDT Urinary tract infection, site unspecified GLUCOSE (BLOOD) Routine 10/06/2015 10:11 AM EDT Screening for diabetes mellitus URINALYSIS, MICROSCOPIC Routine 10/06/2015 10:11 AM EDT Urinary tract infection, site unspecified LIPID PANEL WITH REFLEX TO DIRECT LDL Routine 10/06/2015 10:11 AM EDT Lipid screening Screening for cardiovascular condition documented in this encounter Results * Due to [place] law, this organization might not be sharing negative HIV tests. * (ABNORMAL) URINALYSIS, DIP ONLY ( SITE STAT ONLY) (10/06/2015 11:19 AM EDT) COLOR (URINE) YELLOW [facility] (CLIA# [id number]) APPEARANCE (URINE) CLOUDY [facility] (CLIA# [id number]) SPECIFIC GRAVITY 1.020 1.001 - 1.035 [facility] (CLIA# [id number]) PH (URINE) 5.0 5.0 - 8.0 [facility] (CLIA# [id number]) PROTEIN (URINE) TRACE(A) Neg [facility] (CLIA# [id number]) GLUCOSE (URINE) NEGATIVE Neg [facility] (CLIA# [id number]) Ketones (Urine) NEGATIVE Neg [facility] (CLIA# [id number]) BILIRUBIN (URINE) NEGATIVE Neg [facility] (CLIA# [id number]) BLOOD (URINE) NEGATIVE Neg [facility] (CLIA# [id number]) Leukocyte esterase (Urine) 1+(A) [facility] (CLIA# [id number]) NITRITE (URINE) POSITIVE(A) Neg [facility] (CLIA# [id number]) Urine specimen obtained by clean catch procedure (specimen) 10/06/2015 11:19 AM EDT Narrative [facility] (CLIA# [id number]) - 10/06/2015 11:19 AM EDT Micro and culture already ordered per provider. us Brandyn Pagan MD LAB SAME DAY RESULT Final Resul t [facility] (CLIA# [id number]) [address] [place] [address] * (ABNORMAL) CULTURE, URINE, ROUTINE (10/06/2015 10:11 AM EDT) Pathologist [facility] Bacteria culture (Urine) SEE NOTE(A) [facility] Comment: {CULTURE, URINE, ROUTINE {[id number]) ??CULTURE, URINE, ROUTINE ??MICRO NUMBER: ?[id number] ??TEST STATUS: ? FINAL ??SPECIMEN SOURCE: ?? URINE, CLEAN CATCH ??SPECIMEN QUALITY: ??ADEQUATE ??RESULT: ?Greater than 100,000 CFU/mL of Escherichia coli ?E.coli ?INT ?? VLADIMIR ?? AMOX/CLAVULANATE ? S ? <=2 ?? AMPICILLIN ? S ? <=2 ?? AMP/SULBACTAM ?S ? <=2 ?? CEFAZOLIN ?NR ?<=4 1 ?? CEFEPIME [...] to ?to confirm susceptibility to parenteral cefazolin. 10/06/2015 10:1 1 AM EDT 10/06/2015 6:19 PM EDT Narrative Resulting Agency Comment [id number] Brandyn Pagan MD LABORATORY Final Result Performing Organization Address City/State/[facility] Co de Phone Number [facility] [address] [place] [address] * (ABNORMAL) URINALYSIS, MICROSCOPIC (10/06/2015 10:11 AM EDT) WBC (Urine) 20-40(A) < OR = 5 /HPF [facility] Comment:{WBC {[id number]) RBC (Urine Sed) 0-2 < OR = 2 /HPF [facility] Comment:{RBC {[id number]) Epithelial cells.squamous (Urine sed) NONE SEEN < OR = 5 /HPF [facility] Comment:{SQUAMOUS EPITHELIAL CELLS {[id number]) Bacteria (Urine) MANY(A) NONE SEEN /HPF [facility] Comment:{BACTERIA {[id number]) Hyaline casts (Urine sed) NONE SEEN NONE SEEN /LPF [facility] Comment:{HYALINE CAST {[id number]) 10/06/2015 10:1 1 AM EDT 10/06/2015 6:19 PM EDT Narrative Resulting Agency Comment [id number] Brandyn Pagan MD LAB SAME DAY RESULT Final Resul t Performing Organization Address City/[facility] Co de Phone Number [facility] [address] [place] [address] * GLUCOSE (BLOOD) (10/06/2015 10:11 AM EDT) Glucose 86 65 - 99 mg/dL [facility] Comment: {GLUCOSE {[id number]) ? Fasting reference interval 10/06/2015 10:1 1 AM EDT 10/06/2015 6:19 PM EDT Narrative Resulting Agency Comment [id number] Brandyn Pagan MD LAB SAME DAY RESULT Final Resul t Performing Organization Address [facility] de Phone Number [facility] [address] [place] [address] * (ABNORMAL) LIPID PANEL WITH REFLEX TO DIRECT LDL (10/06/2015 10:11 AM EDT) Cholesterol 243(H) 125 - 200 mg/dL [facility] Comment:{CHOLESTEROL, TOTAL {[id number]) HDL Cholesterol 71 > OR = 46 mg/dL [facility] Comment:{HDL CHOLESTEROL {[id number]) Triglyceride 163(H) <150 mg/dL [facility] Comment:{TRIGLYCERIDES {[id number]) LDL Cholesterol 139(H) <130 mg/dL (calc) [facility] Comment: {LDL-CHOLESTEROL {[id number]) Desirable range <100 mg/dL for patients with CHD or diabetes and <70 mg/dL for diabetic patients with known heart disease. CHOL/HDL Ratio 3.4 < OR = 5.0 (calc) [facility] Comment:{CHOL/HDLC RATIO {[id number]) Cholesterol Non-HDL 172(H) mg/dL (calc) [facility] Comment: {NON HDL CHOLESTEROL {[id number]) Target for non-HDL cholesterol is 30 mg/dL higher than LDL cholesterol target. 10/06/2015 10:1 1 AM EDT 10/06/2015 6:19 PM EDT Narrative Resulting Agency Comment [id number] Brandyn Pagan MD LABORATORY Final Result Performing Organization Address City/State/[facility] Co de Phone Number [facility] [address] [place] [address] documented in this encounter Visit Diagnoses Diagnosis Lipid screening Screening for lipoid disorders Screening for cardiovascular condition Screening for other and unspecified cardiovascular conditions Screening for diabetes mellitus Urinary tract infection, site unspecified documented in this encounter Care Teams Well Flow Operator Relationship Specialty Start Date End Date Brandyn Pagan MD PCP - General Internal Medicine 08/07/15 02/02/17 Radha Spangler NP PCP - Backup PCP Internal Medicine 01/11/16 02/02/17 Unknown Pcp, Non [facility] PCP - General 02/03/17 documented as of this encounter
--- OUTSIDE RECORDS SUMMARY | 2024-07-10 11:21 | XMS_ITS | Encounter Summary ---
Author Organization [facility] Address [address] [place] [address] Care Team Providers Care Grit Removal Operator Name Role Phone Bijal Fox RAWHIDE BONE ROLLER Primary Care Provider [phone] Encounter Details Date Type Department Care Team (Late st Contact Info) Description 07/04/2024 Orders Only [facility] [address] [place] [address] Magy Sawyer NP 100 [facility] [address] [place] [phone] Hyperlipidemia, unspecified hyperlipidemia type (Primary Dx); Myxedema heart disease Social History Tobacco Use Types Packs/Day Years Used Date Smoking Tobacco: Former Smokeless Tobacco: Never Comments:: Alcohol Use Standard Drinks/Week Comments Not Currently 0 (1 standard drink = 0.6 oz pur e alcohol) [facility] Utilities Answer Date Recorded In the past 12 months has th e [employer], gas, oil, or water [employer] threatened to shut off services in your [...] Upcoming Encounters Date Type Department Care Team ([facility] st Contact Info) Description 08/01/2024 2:00 PM EDT Follow-Up [facility] Nephrology [address] [place] [address] [address] [place] [address] John Hendricks MD [address] [place] [address] 01/08/2025 10:00 AM EDT Follow-Up [address] Cardiology 100 [facility] [address] [place] [address] Mabel Onofre NP [address] [place] [address] Scheduled Orders Name Type Priority Associated Diagnoses Orde r Schedule Lipid panel Lab Routine Hyperlipidemia, unspecified hyperlipidemia type Myxedema heart disease Expected: 07/04/2024, Expires: 07/04/2025 Comprehensive Metabolic Panel Lab Routine Hyperlipidemia, unspecified hyperlipidemia type Myxedema heart disease Expected: 07/04/2024, Expires: 07/04/2025 TSH Lab Routine Hyperlipidemia, unspecified hyperlipidemia type Myxedema heart disease Expected: 07/04/2024, Expires: 07/04/2025 T4, Free Lab Routine Hyperlipidemia, unspecified hyperlipidemia type Myxedema heart disease Expected: 07/04/2024, Expires: 07/04/2025 documented as of this encounter Visit Diagnoses Diagnosis Hyperlipidemia, unspecified hyperlipidemia type- Primary Myxedema heart disease Unspecified hypothyroidism documented in this encounter Care Teams Grit Removal Operator Relationship Specialty Start Date End Date Bijal Fox NP [address] [place], [place] [address] [place] [address] PCP - General Family Medicine 05/30/24 documented as of this encounter
--- OUTSIDE RECORDS SUMMARY | 2024-07-10 11:21 | XMS_ITS | Encounter Summary ---
Author Organization [facility] Address [address] [place] [address] Care Team Providers Care Cigarette Machine Operator Name Role Phone Brandyn Pagan MD Primary Care Provider Unavaila Radha Fink NP Unavailable Unavailable Unknown Pcp, Non [facility] Primary Care Provider Unava ilable Encounter Details Date Type Department Care Team (Late st Contact Info) Description 12/02/2016 Orders Only [facility] [address] [place] [phone] Brandyn Pagan MD Social History Tobacco Use Types Packs/Day Years Used Date Smoking Tobacco: Former Cigarettes 1 40 0 11/02/1967 - 11/02/2007 Smokeless Tobacco: Never Alcohol Use Standard Drinks/Week Comments Yes 0 (1 standard drink = 0.6 oz pur e alcohol) socially Comments No Sex and Gender Information Value Date Recorded Sex Assigned at Not on file Legal Sex Female 12:00 AM EDT Gender Identity Not on file Sexual Orientation Not on file documented as of this encounter Plan of Treatment Not on file documented as of this encounter Goals Goal Patient Goal Type Associated Problems Recent Progress Patient-Stated? Author Blood Pressure < 140/90 Blood Pressure 120/73( 017 9:26 AM EDT) No Radha Spangler NP documented as of this encounter Visit Diagnoses Diagnosis Neck pain Cervicalgia documented in this encounter Care Teams Cigarette Machine Operator Relationship Specialty Start Date End Date Brandyn Pagan MD PCP - General Internal Medicine 08/07/15 02/02/17 Radha Spangler NP PCP - Backup PCP Internal Medicine 8/22/16 9/14/17 Unknown Pcp, Non [facility] PCP - General 02/03/17 documented as of this encounter
--- OUTSIDE RECORDS SUMMARY | 2024-07-10 11:21 | XMS_ITS | Encounter Summary ---
Author Organization [facility] Address [address] [place] [address] Care Team Providers Care Scenario Writer Name Role Phone Brandyn Pagan MD Primary Care Provider Unavaila Radha Fink NP Unavailable Unavailable Unknown Pcp, Non [facility] Primary Care Provider Unava ilable Encounter Details Date Type Department Care Team (Late st Contact Info) Description 12/05/2016 Orders Only [facility] [address] [place] [address] Brandyn Pagan MD Social History Tobacco Use [...] as of this encounter Visit Diagnoses Diagnosis Back pain, unspecified back location, unspecified back pain laterality, unspecified chronicity Neck pain Cervicalgia documented in this encounter Care Teams Scenario Writer Relationship Specialty Start Date End Date Brandyn Pagan MD PCP - General Internal Medicine 08/07/15 02/02/17 Radha Spangler NP PCP - Backup PCP Internal Medicine 01/11/16 02/02/17 Unknown Pcp, Non [facility] PCP - General 02/03/17 documented as of this encounter
--- OUTSIDE RECORDS SUMMARY | 2024-07-10 11:21 | XMS_ITS | Encounter Summary ---
Author Organization [facility] Address [address] [place] [address] Care Team Providers Care Aerial Tram Operator Name Role Phone Bijal Fox NP Primary Care Provider [phone] Encounter Details Date Type Department Care Team (Late st Contact Info) Description 07/03/2024 Telephone [facility] Case Management Department [address] [place] [address] Mariajose Calvillo RN Social History Tobacco Use Types Packs/Day Years Used Date Smoking Tobacco: Former Smokeless Tobacco: Never Comments:: Alcohol Use Standard Drinks/Week Comments Not Currently 0 (1 standard drink = 0.6 oz pur e alcohol) [facility] Utilities Answer Date Recorded In [...] PM EDT documented as of this encounter Miscellaneous Notes * Telephone Encounter - Mariajose Calvillo RN - 07/03/2024 3:51 PM EST COPD and CHF Patient Call: This Chronic Disease Nurse Jet Wiper called and 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 She tells this greeting card writer she is doing well. She was at the pharmacy picking up her prescription for her nebulizer medication, she has been working with PT/OT through [facility]. She does still get a little shortness of breath with exertion, but no issues at rest or when laying down. She will be changing insurances on 07/20/24 to [employer]. Did you review the COPD educational material given to you in the hospital? Yes Are you monitoring your triggers? Yes Are you having any shortness of breath, wheezing, coughing? Shortness of breath with exertion only Are you having any difficulty breathing when lying down? No Are you doing the pursed lip/diaphragm breathing? Reviewed again Did you contact your PCP or Slot Router regarding your breathing issues? NA You have a follow up appointment with your PCP on: Was seen 07/02/24 You have a follow up appointment with your Slot Router on: The PCP is supposed to make a referralto one. You have a follow up appointment with (other) on: 08/01/24 with Nephrology; was seen by Cardiology 07/03/24 Are you having any transportation issues to get to these appointments? Still drives Was [facility] scheduled when you were discharged/still coming? Yes, SN/PT/OT Are you still smoking? NA Are you practicing good infection control? Yes (Hand washing, keeping common areas in the home sanitized, avoiding sick contacts, using sales engagement executive when out in the community) Are you having any issues with home oxygen? No issues Are you using your home nebulizer/how often? Just received her new nebulizer machine 07/02/24 and ispicking up her nebulizer medications today 07/03/24 and will start using it. Have you started exercising (even sitting exercises)? Yes, working with PT/OT through [facility]. Are you following a low salt diet (no more than 2,000mg per day)? Yes (Unless you are hyponatremic, read labels) Are you following a fluid restriction? Yes (If prescribed by MD, typically no more than 64 ounces per day) This greeting card writer sent a secure chat to the [facility] team and asked them to reach out to the patient to offer their services now that she had her TCM appointment with Cardiology. IF YOU ARE HAVING SYMPTOMS, DON'T WAIT UNTIL THEY ARE UNMANAGEABLE BEFORE YOU CALL THE DOCTOR. documented in this encounter Plan of Treatment Upcoming Encounters Date Type Department Care Team (Late st Contact Info) Description 08/01/2024 2:00 PM EDT [facility]Up [facility] Nephrology 100 [facility] [address] [place] [address] John Hendricks MD [address] [address] 01/08/2025 10:00 AM EDT Follow-Up [facility] 100 [facility] Cardiology 100 [employer] [employer] [facility] [address] [place] [address] Mabel Onofre NP [address] [place] [address] [address] [place] [address] documented as of this encounter Visit Diagnoses Not on filedocumented in this encounter Care Teams Aerial Tram Operator Relationship Specialty Start Date End Date Bijal Fox NP [address] [place] [address] [address] [place] [address] PCP - General Family Medicine 05/30/24 documented as of this encounter
--- OUTSIDE RECORDS SUMMARY | 2024-07-10 11:21 | XMS_ITS | Encounter Summary ---
Author Organization [facility] Address [address] [place] [address] Care Team Providers Care Tank Builder Name Role Phone Bijal Fox NP Primary Care Provider [phone] Encounter Details Date Type Department Care Team (Late st Contact Info) Description 07/01/2024 9:05 AM EST Lab [facility] Site Department [address] [place] [address] Diastolic heart failure, unspecified HF chronicity (HCC) Social History Tobacco Use Types Packs/Day Years Used Date Smoking Tobacco: Former Smokeless Tobacco: Never Comments:: Alcohol Use Standard Drinks/Week Comments Not Currently 0 (1 standard drink = 0.6 oz pur e alcohol) [facility] Utilities Answer Date Recorded In the past [...] as of this encounter Miscellaneous Notes * Result Encounter Note - Mabel Onofre NP - 07/01/2024 1:43 PM EST Patient will be seeing EP tomorrow for an established visit, discussed with Bijal murillo potassium she will find an alternate treatment for her hyperkalemia and discussed with nephrology. Renal functions are stable, proBNP is normal documented in this encounter Plan of Treatment Upcoming Encounters Date Type Department Care Team (Late st Contact Info) Description 08/01/2024 2:00 PM EDT Follow-Up [facility] Nephrology [address] [place] [address] [address] [place] [address] John Hendricks MD [address] [address] 01/08/2025 10:00 AM EDT Follow-Up [address] Cardiology [address] [place] [address] Mabel Onofre NP [address] [place] [address] documented as of this encounter Procedures * Due to [place] state law, this organization might not be sharing negative HIV tests. Procedure Name Priority Date/Time Associated Diagnosis Comments N-TERMINAL PROBRAIN NATRIURETIC PEPTIDE Routine 07/01/2024 8:39 AM EST Diastolic heart failure, unspecified HF chronicity (HCC) BASIC METABOLIC PANEL Routine 07/01/2024 8:39 AM EST Diastolic heart failure, unspecified HF chronicity (HCC) documented in this encounter Results * Due to [place] state law, this organization might not be sharing negative HIV tests. * N-terminal ProBrain Natriuretic Peptide (07/01/2024 8:39 AM EST) Pro-B-Type Natriuretic Peptide 288 <=900 pg/mL 07/01/2024 9:39 AM EST [facility] Comment: RULE IN CHF >/= 450 pg/mL for patients <50 years old RULE IN CHF >/= 900 pg/mL for patients 50-75 years old RULE IN CHF >/= 1800 pg/mL for patients >75 years old RULE OUT CHF </= 300 pg/mL (not age specific) Blood Structure of peripheral vein / Unknown Venipuncture / Unknown 07/01/2024 8:39 AM EST 07/01/2024 9:05 AM EST Mabel Onofre QUICK MIXER OPERATOR LAB BLOOD ORDERABLES Final Result Performing Organization Address City/State/[facility] Co de Phone Number [facility] [address] [place] [id number], * (ABNORMAL) Basic metabolic panel (07/01/2024 8:39 AM EST) NA 140 136 - 145 mmol/L 07/01/2024 9:36 AM EST [facility] K 5.3(H) 3.5 - 5.1 mmol/L 07/01/2024 9:36 AM EST [facility] Cl 102 98 - 109 mmol/L 07/01/2024 9:36 AM EST [facility] CO2 29 22 - 32 mmol/L 07/01/2024 9:36 AM EST [facility] BUN 34(H) 8 - 23 mg/dL 07/01/2024 9:36 AM EST [facility] Creatinine 1.27(H) 0.50 - 1.12 mg/dL 07/01/2024 9:36 AM EST [facility] Glucose 113(H) 60 - 99 mg/dL 07/01/2024 9:36 AM EST [facility] Calcium 8.9 8.4 - 10.4 mg/dL 07/01/2024 9:36 AM EST [facility] Anion Gap 14 >=0 07/01/2024 9:36 AM EST [facility] eGFR 45(L) >=60 mL/min/1. 73m2 07/01/2024 9:36 AM EST [facility] Comment:The estimated glomer ular filtration rate (eGFR) is calculated using a new formula developed by the NKF-ASN task force to eliminate race-based correction factors. The new formula uses serum/plasma creatinine, age, and gender to determine eGFR. A value below 60mls/min might indicate kidney disease and will be flagged. For additional information, see Cerda et al, Am J Kidney Dis. 2021;79(2):268- 288, A Unifying Approach for GFR estimation: Recommendations of the NKF-ASN Task Force on Reassessing the Inclusion of Race in Diagnosing Kidney Disease . Blood Structure of peripheral vein / Unknown Venipuncture / Unknown 07/01/2024 8:39 AM EST 07/01/2024 9:04 AM EST Mabel Onofre NP LAB BLOOD ORDERABLES Final Result [facility] [address] [place] [address], documented in this encounter Visit Diagnoses Diagnosis Diastolic heart failure, unspecified HF chronicity (HCC) documented in this encounter Care Teams Tank Builder Relationship Specialty Start Date End Date Bijal Fox NP [address] [place] [address] PCP - General Family Medicine 05/30/24 documented as of this encounter
--- OUTSIDE RECORDS SUMMARY | 2024-07-10 11:21 | XMS_ITS | Encounter Summary ---
Author Organization [facility] Address [address] [place] [address] Care Team Providers Care Weather Observer Name Role Phone Brandyn Pagan MD Primary Care Provider Unavaila Radha Fink NP Unavailable Unavailable Unknown Pcp, Non Rmg Primary Care Provider Unava ilable Encounter Details Date Type Department Care Team (Late st Contact Info) Description 11/02/2015 Orders Only [facility] [address] [place] [address] Radha Spangler NP Social History Tobacco Use Types Packs/Day Years [...] as of this encounter Progress Notes * Sol Gonzales MA - 11/04/2015 12:18 PM EDTQuick Note: Letter sent * Selin Chatman - 11/04/2015 7:29 AM EDTQuick Note: To BRITTA letter Notes Recorded by Radha Spangler NP on 11/03/2015 at 5:30 PM This pt's selected labs/tests are normal/stable/or as expected for given condition. Please send theappropriate labs letter. As always, if there is any question or concern from the pt please ask. Thank you, Radha Spangler NP documented in this encounter Plan of Treatment Not on file documented as of this encounter Goals Goal Patient Goal Type Associated Problems Recent Progress Patient-Stated? Author Blood Pressure < 140/90 Blood Pressure 120/73( 017 9:26 AM EDT) No Radha Spangler NP documented as of this encounter Procedures * Due to [place] [employer] law, this organization might not be sharing negative HIV tests. Procedure Name Priority Date/Time Associated Diagnosis Comments ALANINE AMINOTRANSFERASE (ALT), SERUM Routine 11/02/2015 12:44 PM EDT Hyperlipidemia, unspecified hyperlipidemia type CREATINE KINASE (CK), SERUM Routine 11/02/2015 12:44 PM EDT Hyperlipidemia, unspecified hyperlipidemia type documented in this encounter Results * Due to [place] [employer] law, this organization might not be sharing negative HIV tests. * CREATINE KINASE (CK), SERUM (11/02/2015 12:44 PM EDT) CPK 106 29 - 143 U/L [facility] Comment:{CREATINE KINASE, TO KENZIE {[id number]) 11/02/2015 12:4 4 PM EDT 11/03/2015 2:14 AM EDT Narrative Resulting Agency Comment [id number] Radha Spangler [facility] SAME DAY RESULT Final Re sult [facility] [address] [place] [address] * ALANINE AMINOTRANSFERASE (ALT), SERUM (11/02/2015 12:44 PM EDT) ALT (SGPT) 22 6 - 29 U/L [facility] Comment:{ALT {[id number]) 11/02/2015 12:4 4 PM EDT 11/03/2015 2:14 AM EDT Narrative Resulting Agency Comment [id number] Radha Spangler [facility] SAME DAY RESULT Final Re sult [facility] [address] [place] [address] documented in this encounter Visit Diagnoses Diagnosis Hyperlipidemia, unspecified hyperlipidemia type documented in this encounter Care Teams Weather Observer Relationship Specialty Start Date End Date Brandyn Pagan MD PCP - General Internal Medicine 08/07/15 02/02/17 Radha Spangler NP PCP - Backup PCP Internal Medicine 01/11/16 02/02/17 Unknown Pcp, Non Rmg PCP - General 02/03/17 documented as of this encounter
--- OUTSIDE RECORDS SUMMARY | 2024-07-10 11:21 | XMS_ITS | Encounter Summary ---
Author Organization [facility] Address [address] [place] [address] Care Team Providers Care Tank Inspector Name Role Phone Bijal Fox NP Primary Care Provider [phone] Encounter Details Date Type Department Care Team (Late st Contact Info) Description 07/02/2024 10:05 AM EST Lab [facility] Site Department [address] [place] [address] Social History Tobacco Use Types Packs/Day Years Used Date Smoking Tobacco: Former Smokeless Tobacco: Never Comments:: Alcohol Use Standard Drinks/Week Comments Not Currently 0 (1 standard drink = 0.6 oz pur e alcohol) [facility] Utilities Answer Date Recorded In the past [...] Upcoming Encounters Date Type Department Care Team ([facility] st Contact Info) Description 08/01/2024 2:00 PM EDT Follow-Up [facility] Nephrology [address] [place] [address] [address] [place] [address] John Hendricks MD 123 [facility] [address] [place] [address] 01/08/2025 10:00 AM EDT Follow-Up [facility] 100 [facility] Cardiology 100 [facility] [address] [place] [address] Mabel Onofre NP [address] [place] [address] [address] [place] [address] documented as of this encounter Visit Diagnoses Not on filedocumented in this encounter Care Teams Tank Inspector Relationship Specialty Start Date End Date Bijal Fox NP [address] [place] [address] [address] [place] [address] PCP - General Family Medicine 05/30/24 documented as of this encounter
--- OUTSIDE RECORDS SUMMARY | 2024-07-10 11:21 | XMS_ITS | Encounter Summary ---
Author Organization [facility] Address [address] [place] [address] Care Team Providers Care Decorator Inspector Name Role Phone Brandyn Pagan MD Primary Care Provider Unavaila Radha Fink NP Unavailable Unavailable Unknown Pcp, Non Rmg Primary Care Provider Unava ilable Encounter Details Date Type Department Care Team ([facility] st Contact Info) Description 12/29/2015 Orders Only 300 [facility] Magnetic Resonance Imaging [address] [place] [address] Radha Spangler NP Social History Tobacco Use [...] as of this encounter Progress Notes * Radha Spangler NP - 01/11/2016 12:57 PM EDTQuick Note: Discussed at [facility]pe today * Radha Spangler NP - 01/04/2016 7:04 PM EDTQuick Note: . * Radha Spangler NP - 01/04/2016 7:04 PM EDTQuick Note: Will discuss at 01/10 office visit documented in this encounter Plan of Treatment Not on file documented as of this encounter Goals Goal Patient Goal Type Associated Problems Recent Progress Patient-Stated? Author Blood Pressure < 140/90 Blood Pressure 120/73( 017 9:26 AM EDT) No Radha Spangler NP documented as of this encounter Procedures * Due to [place] [employer] law, this organization might not be sharing negative HIV tests. Procedure Name Priority Date/Time Associated Diagnosis Comments ALANINE AMINOTRANSFERASE (ALT), SERUM Routine 12/29/2015 10:04 AM EDT Hyperlipidemia, unspecified hyperlipidemia type LIPID PANEL WITH REFLEX TO DIRECT LDL Routine 12/29/2015 10:04 AM EDT Hyperlipidemia, unspecified hyperlipidemia type BASIC METABOLIC PANEL WITH (GFR) Routine 12/29/2015 10:04 AM EDT Essential hypertension with goal blood pressure less than 140/90 documented in this encounter Results * Due to [place] [employer] law, this organization might not be sharing negative HIV tests. * (ABNORMAL) BASIC METABOLIC PANEL WITH (GFR) (12/29/2015 10:04 AM EDT) Glucose 98 65 - 99 mg/dL [facility] Comment: {GLUCOSE {[id number]) ? Fasting reference interval Urea Nitrogen Blood (BUN) 22 7 - 25 mg/dL [facility] Comment:{UREA NITROGEN (BUN) {[id number]) Creatinine 1.20(H) 0.50 - 0.99 mg/dL [facility] Comment: {CREATININE {[id number]) For patients >49 years of age, the reference limit for Creatinine is approximately 13% higher for people identified as -Bhutanese. GFR 48(L) > OR = 60 mL/min/1. 73m2 [facility] Comment:{eGFR NON-AFR. AMERI CAN {[id number]) GFR () 55(L) > OR = 60 mL/min/1. 73m2 [facility] Comment:{eGFR AMERIC AN {[id number]) BUN/Creatinine Ratio 18 6 - 22 (calc) [facility] Comment:{BUN/CREATININE RATI O {[id number]) Sodium 138 135 - 146 mmol/L [facility] Comment:{SODIUM {[id number]) Potassium 5.1 3.5 - 5.3 mmol/L [facility] Comment:{POTASSIUM {[id number]) Chloride 106 98 - 110 mmol/L [facility] Comment:{CHLORIDE {[id number]) Carbon dioxide 25 20 - 31 mmol/L [facility] Comment:{CARBON DIOXIDE {[id number]) Calcium 9.7 8.6 - 10.4 mg/dL [facility] Comment:{CALCIUM {[id number]) 12/29/2015 10:0 4 AM EDT 12/29/2015 3:11 PM EDT Narrative [facility] - 12/29/2015 6:02 PM EDT Please note that this estimated GFR does not include an adjustment for the patient's height or weight, and can therefore, be viewed as reliable only for patients with heights between 60 and 72 . More precise quantification using a 24-hour urine sample or height-based algorithm is recommended for patients outside of this range of height and for those individuals with more precise needs for GFR calculation. Radha Spangler NP LABORATORY Final Result [facility] [address] [place] [address] * (ABNORMAL) LIPID PANEL WITH REFLEX TO DIRECT LDL (12/29/2015 10:04 AM EDT) Cholesterol 232(H) 125 - 200 mg/dL [facility] Comment:{CHOLESTEROL, TOTAL {[id number]) HDL Cholesterol 80 > OR = 46 mg/dL [facility] Comment:{HDL CHOLESTEROL {[id number]) Triglyceride 112 <150 mg/dL [facility] Comment:{TRIGLYCERIDES {[id number]) LDL Cholesterol 130(H) <130 mg/dL (calc) [facility] Comment: {LDL-CHOLESTEROL {[id number]) Desirable range <100 mg/dL for patients with CHD or diabetes and <70 mg/dL for diabetic patients with known heart disease. CHOL/HDL Ratio 2.9 < OR = 5.0 (calc) [facility] Comment:{CHOL/HDLC RATIO {[id number]) Cholesterol Non-HDL 152 mg/dL (calc) [facility] Comment: {NON HDL CHOLESTEROL {[id number]) Target for non-HDL cholesterol is 30 mg/dL higher than LDL cholesterol target. 12/29/2015 10:0 4 AM EDT 12/29/2015 3:11 PM EDT Narrative Resulting Agency Comment [id number] Radha Spangler NP LABORATORY Final Result Performing Organization Address City/[facility]/ZIP Co de Phone Number [facility] [address] [place] [phone] * ALANINE AMINOTRANSFERASE (ALT), SERUM (12/29/2015 10:04 AM EDT) ALT (SGPT) 25 6 - 29 U/L [facility] Comment:{ALT {[id number]) 12/29/2015 10:0 4 AM EDT 12/29/2015 3:11 PM EDT Narrative Resulting Agency Comment [id number] Radha Spangler NP LAB SAME DAY RESULT Final Re sult Performing Organization Address City/[facility] Co de Phone Number [facility] [address] [place] [address] documented in this encounter Visit Diagnoses Diagnosis Cervicodynia Cervicalgia Hyperlipidemia, unspecified hyperlipidemia type Essential hypertension with goal blood pressure less than 140/90 documented in this encounter Care Teams Decorator Inspector Relationship Specialty Start Date End Date Brandyn Pagan MD PCP - General Internal Medicine 08/07/15 02/02/17 Radha Spangler NP PCP - Backup PCP Internal Medicine 01/11/16 02/02/17 Unknown Pcp, Non Rmg PCP - General 02/03/17 documented as of this encounter
--- OUTSIDE RECORDS SUMMARY | 2024-07-10 11:21 | XMS_ITS | Encounter Summary ---
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 Primary Care Provider [phone] Reason for Visit * Consultation (Routine) - Authorized Specialty Diagnoses / Procedures Referred By Contac t Referred To Contact Family Medicine / Cardiology Diagnoses *TCM d/c 2/5 Procedures TRANSITIONAL CARE MANAGEMENT Bijal Fox NP [address] [place] [address] Phone: tel: fax: Mabel Onofre NP [address] [place] [address] Phone: tel: fax: Referral ID Status Reason Start Date Expiration Date V isits Requested Visits Authorized [id number] Authorized 07/03/2024 01/02/2026 6 6 Encounter Details Date Type Department Care Team (Late st Contact Info) Description 07/03/2024 2:30 PM EST Office Visit [address] Cardiology [address] [place] [address] Mabel Onofre NP [address] [place] [phone] Diastolic heart failure, unspecified HF chronicity (HCC) (Primary Dx); Paroxysmal atrial fibrillation (HCC); Pulmonary hypertension (HCC); BILLIE (obstructive sleep apnea); Benign hypertensive heart disease without congestive heart failure Social History Tobacco Use Types Packs/Day Years Used Date Smoking Tobacco: Former Smokeless Tobacco: Never Comments:: Alcohol Use Standard Drinks/Week Comments Not Currently 0 (1 standard drink = 0.6 oz pur e alcohol) [facility] Utilities Answer Date Recorded In the [...] Sign Reading Time Taken Comments Blood Pressure 138/70 07/03/2024 2:29 PM EST Pulse 87 07/03/2024 2:29 PM EST Temperature - - Respiratory Rate - - Oxygen Saturation 95% 07/03/2024 2:29 PM EST Inhaled Oxygen Concentration - - Weight 117.8 kg (259 lb 9.6 oz) 07/03/2024 2:29 PM EST Height - - Body Mass Index 41.92 07/01/2024 3:13 PM EST documented in this encounter Progress Notes * Mabel Onofre NP - 07/03/2024 2:31 PM EST Images from the original note were not included. Cardiology Outpatient Follow Up Visit @DOS@ Genie Vora 1950 [id number] Impression / Recommendations 1. Diastolic heart failure, unspecified HF chronicity (HCC) (Primary) Recent hospitalization for diastolic CHF in the setting of pneumonia, COPD exacerbation and mild pulmonary hypertension. Follow-up labs showed normalized proBNP, she does appear to be euvolemic. She has had slight decrease in her kidneys again, we will reduce her furosemide to every other day, withthe extra furosemide if her weight gain is greater than 2 pounds in 1 day or 5 pounds in 1 week. She will monitor her self closely for any increasing edema. She will follow 2 g sodium diet. She will follow closely with Dr. Hendricks. She is not on a SGL 2i, according to her records she seems to have frequent UTIs which she would becontraindicated for Farxiga or Jardiance. 2. Paroxysmal atrial fibrillation (HCC) History of atrial flutter ablation with recurrent paroxysmal atrial fibrillation at not been on Eliquis due to the financial cost. She is now on it as we did give her samples and a 30-day free card. Her insurance will be changing to [employer] in July and that will be affordable to continue Eliquis. She has a history of CVA and I stressed the importance of compliance with her anticoagulation. She appears to be in normal rhythm today. She is on flecainide, her last EKG in the hospital was sinus rhythm with first-degree AV block, with QRS 128 ms. 3. Pulmonary hypertension (HCC) Mildly elevated right ventricular systolic pressures in the setting of COPD, BILLIE-recent hospitalization for pneumonia and heart failure. Now on diuretic management. Continue compliance with sleep apnea, control of COPD, low-sodium diet, monitor weights and adjust diuretics as needed 4. BILLIE (obstructive sleep apnea) Compliant with CPAP, following with pulmonology for her COPD 5. Benign hypertensive heart disease without congestive heart failure She has had adequate blood pressures thus far, a little elevated today. She will monitor her blood pressures at home to maintain blood pressure less than 130/80. 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 [place] She presented to the hospital with cough and shortness of breath. She was found to have pneumonia, no PE, elevated BNP, in CHF, had a recent echo normal LV function mildly elevated right ventricular systolic pressures. She is on Eliquis and flecainide for A-fib control. She just restarted the Eliquis during this hospitalization, was supposed to be on it but due to the financial cost with her insurance she was not taking it. She will be transitioning to different insurance next month and will have a better co-pay. In addition Cardizem CD1 20 mg daily. She had hyperkalemia and CKD, losartan wasplaced on hold. She was transition to oral furosemide at discharge. She is still mildly short of breath and fatigue but is slowly improving. Her weight was down from hospitalizations slight increase over the last couple of days. She has not had any chest pain or pressure. She has been taking her medications faithfully. No lower extremity edema. She denies dizziness, lightheadedness no palpitations. She continues to have a lot of pain issues and back issues, has ahistory of spinal surgery. She has CPAP and she is compliant. She also has O2 which she is going touse at night. She will be following up with Dr. Crystal as she did see him in the hospital. She saw Dr. Hendricks yesterday for the hyperkalemia, repeated labs showed a normal potassium. Kidney functions h owever are still elevated slightly increased at creatinine to 1.4. Social History Social History Socioeconomic History Marital status: Single Spouse name: Not on file Number of children: Not on file Years of education: Not on file Highest education level: Not on file Occupational History Not on file Tobacco Use Smoking status: Former Smokeless tobacco: Never Tobacco comments: : Vaping Use Vaping status: Never Used Substance and Sexual Activity Alcohol use: Not Currently Drug use: Never Sexual activity: Not on file Other Topics Concern Not on file Social History Narrative Not on file Family History Family History Relation Problem Comments Mother Other Family History of eczema Father Other Family History of depression Sister Other Family History of depression Sister Other Family history of Coagulation disorder, transient Brother Other Family History of alcoholism Brother Other Family History of depression Allergies Prevacid [Lansoprazole] Zrsdykl-Iaa-Vlw Reductase Inhibitors Medications Current Outpatient Medications Medication Instructions apixaban (ELIQUIS) 5 mg, oral, Every 12 hours scheduled arformoteroL (BROVANA) 15 mcg, nebulizer, Every 12 hours scheduled benzonatate (TESSALON) 100 mg, oral, 3 times daily PRN budesonide (PULMICORT) 0.5 mg, nebulizer, Every 12 hours scheduled, Rinse mouth with water after use to reduce aftertaste and incidence of candidiasis. Do not swallow. busPIRone (BUSPAR) 7.5 mg, 2 times daily diltiazem XR (DILACOR XR) 120 mg, Daily DULoxetine DR (CYMBALTA) 60 mg, Daily flecainide (TAMBOCOR) 100 mg, 2 times daily furosemide (LASIX) 20 mg, oral, Daily guaiFENesin ER (MUCINEX) 600 mg, oral, Every 12 hours scheduled ipratropium-albuteroL (DUO-NEB) 0.5-2.5 mg/3 mL nebulizer solution 3 mL, nebulizer, Every 4 hours PRN levothyroxine (SYNTHROID, LEVOTHROID) 112 mcg, oral, Daily lisdexamfetamine (VYVANSE) 20 mg, Every morning methocarbamoL (ROBAXIN) 750 mg, 3 times daily nystatin (MYCOSTATIN) 500,000 Units, oral, [address] (PROTONIX) 40 mg, oral, Daily predniSONE (DELTASONE) 10 mg tablet Take 4 tablets (40 mg total) by mouth once a day for 2 days, THEN 3 tablets (30 mg total) once a day for 2 days, THEN 2 tablets (20 mg total) once a day for 2 days, THEN 1 tablet (10 mg total) once a day for 2 days. pregabalin (LYRICA) 150 mg, 2 times daily senna (SENOKOT) 17.2 mg, oral, Daily sodium zirconium cyclosilicate (LOKELMA) 15 g, oral, Daily traMADoL (ULTRAM) 50 mg, Every 8 hours PRN traZODone (DESYREL) 50 mg, Nightly Physical Exam Vital Sign (6hrs) for the past 6 hrs: BP Pulse SpO2 Weight 07/03/24 1429 138/70 87 95 % 117.8 kg (259 lb 9.6 oz) Physical Exam Vitals reviewed. Constitutional: Appearance: Normal appearance. HENT: Head: Normocephalic and atraumatic. Neck: Vascular: No carotid bruit or JVD. Cardiovascular: Rate and Rhythm: Normal rate and regular rhythm. Pulses: Normal pulses. Heart sounds: Normal heart sounds, S1 normal and S2 normal. No murmur heard. No friction rub. No gallop. Comments: Regular with occasional irregular beats Pulmonary: Effort: Pulmonary effort is normal. Breath sounds: Normal breath sounds. No wheezing, rhonchi or rales. Comments: Diminished Musculoskeletal: General: No swelling. Cervical back: Normal range of motion and neck supple. Right lower leg: Edema (Trace bilateral) present. Left lower leg: No edema. Skin: General: Skin is warm and dry. Neurological: General: No focal deficit present. Mental Status: She is alert and oriented to person, place, and time. Psychiatric: Mood and Affect: Mood normal. Behavior: Behavior normal. LABS Latest Ref Rng & Units 07/02/2024 9:17 AM CBC Hgb 11.7 - 15.5 g/dL 12.0 Hct 35.7 - 45.8 % 37.1 Latest Ref Rng & Units 07/02/2024 9:17 AM Basic Metabolic Panel Sodium 136 - 145 mmol/L 138 Potassium 3.5 - 5.1 mmol/L 4.4 Chloride 98 - 109 mmol/L 101 Carbon Dioxide 22 - 32 mmol/L 26 Glucose 60 - 99 mg/dL 115 Creatinine 0.50 - 1.12 mg/dL 1.47 Calcium 8.4 - 10.4 mg/dL 8.8 EGFR >=60 mL/min/1.73m2 38 Latest Ref Rng & Units 03/23/2012 2:36 PM 01/07/2011 12:33 PM 04/01/2010 11:17 AM Lipids Cholesterol <200 mg/dL 260 265 279 Triglycerides <150 mg/dL 73 176 180 Cholesterol, HDL 40 - 59 mg/dL 105 62 69 LDL Cholesterol <130 mg/dL 140 168 174 . Testing Results for orders placed during the hospital encounter of 06/15/24 X-Ray Chest 2 Views Narrative COMPARISON: 06/18/2024 FINDINGS AND Impression Interval clearing of prior LLL infiltrate/atelectasis. Lungs and pleural spaces now clear. Heart size remains normal. If this radiology report contains a blank impression section, it is an incomplete radiology report.Please contact the interpreting radiologist or applicable radiology division as soon as possible toobtain the completed interpretation. Workstation ID: [id number] Prior Echo Procedures Transthoracic echo (TTE) Exam End: 06/04/2024 9:40 AM (Final result) Narrative: Left Ventricle: Normal left ventricular systolic function. Left ventricular ejection fraction is in the normal range with visually estimated LVEF 65%. Left Atrium: Left atrium is moderately dilated. Tricuspid Valve: Mild tricuspid regurgitation. Pulmonary Arteries: Pulmonary artery systolic pressure is upper normal. Estimated pulmonary artery pressure is 37 mmHg. Thank you for the opportunity to participate in your patients care. If you have any questions please feel free to contact me. Mabel Onofre NP This note was generated utilizing speech recognition. Please excuse grammatical errors. documented in this encounter Plan of Treatment Upcoming Encounters Date Type Department Care Team ([facility] st Contact Info) Description 08/01/2024 2:00 PM EDT Follow-Up [facility] Nephrology [address] [place] [address] [address] [place] [address] John Hendricks MD 123 [facility] [address] [place] [address] 01/08/2025 10:00 AM EDT Follow-Up [facility] 100 [facility] Cardiology [address] [place] [address] [address] [place] [address] Mabel Onofre NP [address] [place] [address] [address] [place] [address] documented as of this encounter Visit Diagnoses Diagnosis Diastolic heart failure, unspecified HF chronicity (HCC)- Primary Paroxysmal atrial fibrillation (HCC) Atrial fibrillation Pulmonary hypertension (HCC) Other chronic pulmonary heart diseases BILLIE (obstructive sleep apnea) Obstructive sleep apnea (adult) (pediatric) Benign hypertensive heart disease without congestive heart failure Benign hypertensive heart disease without heart failure documented in this encounter Care Teams Bill Distributor Relationship Specialty Start Date End Date Bijal Fox NP [address] [place] [address] [address] [place] [address] PCP - General Family Medicine 05/30/24 documented as of this encounter
--- OUTSIDE RECORDS SUMMARY | 2024-07-10 11:22 | XMS_ITS | Encounter Summary ---
Author Organization [facility] Address [address] [place] [address] Care Team Providers Care Electron Beam Welding Machine Operator Name Role Phone Brandyn Pagan MD Primary Care Provider Radha Cuevas NP Unavailable Unavailable Unknown Pcp, Non [facility] Primary Care Provider Unava ilable Encounter Details Date Type Department Care Team (Late st Contact Info) Description 01/12/2017 Orders Only [facility] [address] [place] [address] Brandyn Pagan MD Social History Tobacco Use [...] as of this encounter Progress Notes * Martin Swartz - 01/15/2017 8:29 PM EDT UA and UC negative * Dc Greco - 01/13/2017 8:41 AM EDT Ov 01/19/17 * Brandyn Pagan - 01/13/2017 7:39 AM EDT Ok to file once patient has been seen in the office - (s)he has an upcoming appt already made documented in this encounter Plan of Treatment Not on file documented as of this encounter Goals Goal Patient Goal Type Associated Problems Recent Progress Patient-Stated? Author Blood Pressure < 140/90 Blood Pressure 120/73( 017 9:26 AM EDT) No Radha Spangler, MEY documented as of this encounter Procedures * Due to [place] [employer] law, this organization might not be sharing negative HIV tests. Procedure Name Priority Date/Time Associated Diagnosis Comments URINALYSIS, DIP ONLY STAT (All results called to provider) 01/12/2017 12:59 PM EDT Frequency of urination CULTURE, URINE, ROUTINE Routine 01/12/2017 12:22 PM EDT Frequency of urination URINALYSIS, MICROSCOPIC Routine 01/12/2017 12:22 PM EDT Frequency of urination documented in this encounter Results * Due to [place] [employer] law, this organization might not be sharing negative HIV tests. * URINALYSIS, DIP ONLY ( SITE STAT ONLY) (01/12/2017 12:59 PM EDT) COLOR (URINE) YELLOW [facility] (CLIA# [id number]) APPEARANCE (URINE) CLEAR Clear [facility] (CLIA# [id number]) SPECIFIC GRAVITY 1.005 1.001 - 1.035 [facility] (CLIA# [id number]) PH (URINE) 7.0 5.0 - 8.0 [facility] (CLIA# [id number]) PROTEIN (URINE) NEG Neg [facility] (CLIA# [id number]) GLUCOSE (URINE) NEG Neg [facility] (CLIA# [id number]) Ketones (Urine) NEG Neg [facility] (CLIA# [id number]) BILIRUBIN (URINE) NEG Neg [facility] (CLIA# [id number]) BLOOD (URINE) NEG Neg [facility] (CLIA# [id number]) Leukocyte esterase (Urine) NEG Neg [facility] (CLIA# [id number]) NITRITE (URINE) NEG Neg [facility] (CLIA# [id number]) Urine specimen obtained by clean catch procedure (specimen) 01/12/2017 12:59 PM EDT Narrative [facility] (CLIA# [id number]) - 01/12/2017 1:00 PM EDT Micro and culture already ordered per provider. Brandyn Pagan MD LAB SAME DAY RESULT Final Resul t Performing Organization Address [facility] de Phone Number [facility] (CLIA# [id number]) [address] [place] [address] * CULTURE, URINE, ROUTINE (01/12/2017 12:22 PM EDT) Bacteria culture (Urine) SEE NOTE [facility] Comment: ??CULTURE, URINE, ROUTINE ??MICRO NUMBER: ?[id number] ??TEST STATUS: ? FINAL ??SPECIMEN SOURCE: ?? URINE ??SPECIMEN QUALITY: ??ADEQUATE ??RESULT: ?No Growth 01/12/2017 12:2 2 PM EDT 01/12/2017 10:29 PM EDT Narrative Resulting Agency Comment [id number] Brandyn Pagan MD LABORATORY Final Result Performing Organization Address City/[facility]/ZIP Co de Phone Number [facility] [address] [place] [address] * URINALYSIS, MICROSCOPIC (01/12/2017 12:22 PM EDT) WBC (Urine) NONE SEEN < OR = 5 /HPF [facility] RBC (Urine Sed) NONE SEEN < OR = 2 /HPF [facility] Epithelial cells.squamous (Urine sed) NONE SEEN < OR = 5 /HPF [facility] Bacteria (Urine) NONE SEEN NONE SEEN /HPF [facility] Hyaline casts (Urine sed) NONE SEEN NONE SEEN /LPF [facility] 01/12/2017 12:2 2 PM EDT 01/12/2017 10:29 PM EDT Narrative Resulting Agency Comment [id number] Brandyn Pagan MD LAB SAME DAY RESULT Final Resul t Performing Organization Address City/State/[facility] Co de Phone Number [facility] [address] [place] [address] documented in this encounter Visit Diagnoses Diagnosis Frequency of urination Urinary frequency documented in this encounter Care Teams Electron Beam Welding Machine Operator Relationship Specialty Start Date End Date Brandyn Pagan MD PCP - General Internal Medicine 08/07/15 02/02/17 Radha Spangler NP PCP - Backup PCP Internal Medicine 01/11/16 02/02/17 Unknown Pcp, Non [facility] PCP - General 02/03/17 documented as of this encounter
--- OUTSIDE RECORDS SUMMARY | 2024-07-10 11:22 | XMS_ITS | Encounter Summary ---
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 [phone] Reason for Visit * Reason Comments SOB * Auth/Cert (Routine) Specialty Diagnoses / Procedures Referred By Contac t Referred To Contact Diagnoses Pneumonia due to organism Referral ID Status Reason Start Date Expiration Date Visits Re quested Visits Authorized [id number] [phone] Encounter Details Date Type Department Care Team (Latest Contact Info) Description 06/15/2024 7:35 PM EST - 06/26/2024 6:09 PM [facility] Hospital Encounter [address] [address] Kevin Newsome MD [address] [place] [id number] Mj Mendenhall MD [address] [place] [id number] Discharge Disposition: Home with Services (06) Social History Tobacco Use Types Packs/Day Years Used Date Smoking Tobacco: Former Smokeless Tobacco: Never Comments:: Alcohol Use Standard Drinks/Week Comments Not Currently 0 (1 standard drink = 0.6 oz pur e alcohol) [facility] Utilities Answer Date Recorded In [...] Sign Reading Time Taken Comments Blood Pressure 152/80 06/26/2024 3:00 PM EST Pulse 68 06/26/2024 3:39 AM EST Temperature 36.8 ??C (98.3 ??F) 06/26/2024 3:00 PM ES T Respiratory Rate 18 06/26/2024 3:00 PM EST Oxygen Saturation 95% 06/26/2024 3:39 AM EST Inhaled Oxygen Concentration - - Weight 118.4 kg (261 lb) 06/26/2024 6:00 AM EST Height 167.6 cm (5' 6 ) 06/16/2024 11:21 PM EST Body Mass Index 42.13 06/16/2024 11:21 PM EST documented in this encounter Discharge Summaries * Rosanna Marie NP - 06/26/2024 3:19 PM EST Images from the original note were not included. DISCHARGE SUMMARY [facility] DISCHARGE INFORMATION: Date and Time of Admission: 06/16/2024 3:58 AM Date of Discharge: 06/26/24 DISCHARGE DIAGNOSIS: Problem List Active Problems * (Principal) Pneumonia due to organism A-fib (CMS/HCC) (HCC) Acute respiratory failure with hypoxia (HCC) Chronic obstructive pulmonary disease with acute exacerbation (HCC) Constipation Diastolic CHF, acute (CMS/HCC) (HCC) Elevated serum creatinine Hyperkalemia Hypothyroidism Lumbar canal stenosis Severe asthma with exacerbation Resolved Problems RESOLVED: Acute pulmonary edema (HCC) RESOLVED: HLD (hyperlipidemia) ATTENDING PHYSICIAN ON DISCHARGE: Attending Provider: Mj Mendenhall MD [phone] FOLLOW-UPS AND SCHEDULED APPOINTMENTS: No future appointments. CONTACT INFORMATION FOR FOLLOW-UP [facility] Specialty: Home Health Services [address] [facility] [address] Next Steps: Follow up [facility] [address] [facility] [id number] Next Steps: Follow up Instructions: Have gone for auth. John Hendricks MD Specialty: Nephrology [address] [place] [address] [address] [facility] [id number] Next Steps: Schedule an appointment as soon as possible for a visit Instructions: Hyperkalemia, CKD Pipo Crystal MD Specialty: Internal Medicine, Pulmonary Disease [address] [place] [id number] Next Steps: Schedule an appointment as soon as possible for a visit Stephanie Hampton MD Specialty: Cardiology [address] [place] [address] [address] [facility] [id number] Next Steps: Schedule an appointment as soon as possible for a visit PENDING LABS: . Ordered VITAMIN D 1,25 DIHYDROXY 06/23/24 0748 RESPIRATORY CULTURE W/GRAM STAIN (Order Panel) 06/16/24 0358 DISCHARGE MEDICATIONS: Discharge Medication list: Discharge Medications New Medications Sig Disp Refill arformoteroL 15 mcg/2 mL nebulizer solution Commonly known as: Brovana Inhale 2 mL (15 mcg total) via nebulizer every 12 hours. 120 mL 0 benzonatate 100 mg capsule Commonly known as: TESSALON Take 1 capsule (100 mg total) by mouth 3 times a day as needed for cough. 30 capsule 0 budesonide 0.5 mg/2 mL suspension Commonly known as: PULMICORT Inhale 2 mL (0.5 mg total) via nebulizer every 12 hours. Rinse mouth with water after use to reduceaftertaste and incidence of candidiasis. Do not swallow. 120 mL 0 guaiFENesin ER 600 mg tablet Commonly known as: MUCINEX Take 1 tablet (600 mg total) by mouth every 12 hours. 60 tablet 0 ipratropium-albuteroL 0.5-2.5 mg/3 mL nebulizer solution Commonly known as: DUO-NEB Inhale 3 mL via nebulizer every 4 hours as needed for wheezing or shortness of breath. 360 mL 0 nystatin 100,000 unit/mL suspension Commonly known as: MYCOSTATIN Take 5 mL (500,000 Units total) by mouth 4 times a day. [address] 40 mg tablet Commonly known as: PROTONIX Start taking on: June 27, 2024 Take 1 tablet (40 mg total) by mouth once a day. 30 tablet 0 predniSONE 10 mg tablet Commonly known as: DELTASONE Start taking on: June 27, 2024 Take 4 tablets (40 mg total) by mouth once a day for 2 days, THEN 3 tablets (30 mg total) once a day for 2 days, THEN 2 tablets (20 mg total) once a day for 2 days, THEN 1 tablet (10 mg total) once aday for 2 days. 20 tablet 0 senna 8.6 mg tablet Commonly known as: SENOKOT Take 2 tablets (17.2 mg total) by mouth once a day. 60 tablet 0 sodium zirconium cyclosilicate 5 gram powder in packet powder Commonly known as: LOKELMA Start taking on: June 27, 2024 Take 3 packets (15 g total) by mouth once a day. 30 packet 0 traMADoL 100 mg tablet Take 1 tablet (100 mg total) by mouth every 8 hours as needed for pain for up to 3 days. 10 tablet 0 Modified Medications Sig Disp Refill furosemide 20 mg tablet Commonly known as: LASIX What changed: when to take this reasons to take this Take 1 tablet (20 mg total) by mouth once a day. 30 tablet 0 Medications To Continue Sig Disp Refill busPIRone 7.5 mg tablet Commonly known as: BUSPAR Take 7.5 mg by mouth 2 (two) times a day. 0 diltiazem XR 120 mg 24 hr capsule Commonly known as: DILACOR XR Take 120 mg by mouth once a day. [address] 60 mg capsule Commonly known as: CYMBALTA Take 60 mg by mouth once a day. 0 Eliquis 5 mg tablet Generic drug: apixaban Take 1 tablet by mouth 2 times a day. 0 flecainide 100 mg tablet Commonly known as: TAMBOCOR Take 100 mg by mouth 2 times a day. 0 levothyroxine 112 mcg tablet Commonly known as: SYNTHROID, LEVOTHROID Take 1 tablet (112 mcg total) by mouth daily. 30 tablet 0 lisdexamfetamine 20 mg capsule Commonly known as: VYVANSE Take 20 mg by mouth every morning. 0 methocarbamoL 750 mg tablet Commonly known as: ROBAXIN Take 750 mg by mouth 3 times a day. 0 pregabalin 150 mg capsule Commonly known as: LYRICA Take 150 mg by mouth 2 times a day. 0 traZODone 50 mg tablet Commonly known as: DESYREL Take 50 mg by mouth nightly. -- 1-2 TABS EVERY NIGHT, STARTS WITH 50 MG AND TAKES A SECOND TABLET IF NOT SLEEPING 0 Stopped Medications losartan 50 mg tablet Commonly known as: COZAAR triamcinolone acetonide 0.1% cream Commonly known as: KENALOG ALLERGIES: Neosporin (wfr-cdykg-zbyvwwtt) [dowlotll-tshprnrjn-despfptxam], Prevacid [lansoprazole], and Vtjaqey-gbd-cax reductase inhibitors IMMUNIZATION HISTORY: Most Recent Immunizations Administered Date(s) Administered INFLUENZA, SPLIT VIRUS, TRIVALENT, PF 06/15/2017 Influenza, Injectable, Quadrivalent, Preservative Free 03/11/2016 Influenza, Trivalent, Adjuvanted, PF 02/18/2018 Pneumococcal Conjugate Vaccine, 13 Valent 06/15/2017 Pneumococcal Polysaccharide Vaccine, 23 Valent 06/27/2018 Tetanus Toxoid, Reduced Diphtheria Toxoid, and Acellular Pertussis Vaccine, Adsorbed 01/11/2016 Zoster Vaccine, Live 01/11/2016 PRESENTATION INFORMATION: HISTORY OF PRESENT ILLNESS: PAST MEDICAL HISTORY: Past Medical History: Diagnosis Date Arthritis Posterior tibial tendinitis History of Posterior tibial tendinitis 2014-09-02 Radial styloid tenosynovitis History of De Quervain's tenosynovitis 2011-07-29 PAST SURGICAL HISTORY: Past Surgical History: Procedure Laterality Date ND ARTHROCENTESIS ASPIR&/INJ MAJOR JT/BURSA W/O US Right History of Arthrocentesis Injection Of Hip Joint Right hip steroid injection ND ARTHROCENTESIS ASPIR&/INJ MAJOR JT/BURSA W/O US Right History of Arthrocentesis Injection Of Hip Joint Right RIGHT HIP INJECTION WITH STEROID ND ARTHROCENTESIS ASPIR&/INJ MAJOR JT/BURSA W/O US Right History of Arthrocentesis Injection Of Hip Joint Right RIGHT HIP INJECTION ND ARTHROCENTESIS ASPIR&/INJ MAJOR JT/BURSA W/O US Right History of Arthrocentesis Injection Of Hip Joint Right RIGHT HIP CORTISONE INJECTION ND KNEE SCOPE,DIAGNOSTIC N/A History of Arthroscopy Knee ND ALVES W/O FACETEC FORAMOT/[facility] 05/23 VRT SEG, CERVICAL N/A History of Laminectomy Lumbar ND LAP,CHOLECYSTECTOMY N/A History of Cholecystectomy Laparoscopic PROCEDURE - HISTORIC N/A History of Lumbar Injection LUMBAR EPIDURAL STEROID INJECTION PROCEDURE - HISTORIC N/A History of Lumbar Injection LUMBAR EPIDURAL STEROID INJECTION PROCEDURE - HISTORIC N/A History of Lumbar Injection LEFT L4 EPIDURAL STEROID INJECTION PAST FAMILY HISTORY: Family History Problem Relation Age of Onset [...] Sister Family history of Coagulation disorder, transient PAST SOCIAL HISTORY: Social History Socioeconomic History Marital status: Single [...] file Social History Narrative Not on file HOSPITAL COURSE: Patient was admitted due to acute on respiratory failure with hypoxia. On admission patient desatted to 88% requiring 3 to 4 L of oxygen via nasal cannula. Recently patient has been placed on home O2that he uses on a as needed basis. Patient's acute respiratory failure secondary to pneumonia with subsequent COPD/asthma exacerbation. Patient was treated with IV ABX, supplemental O2, and nebs. In addition, she received IV magnesium. Pt was found to have acute diastolic CHF. Patient was evaluated by cardiology service. Her echocardiogram dated 06/04/2024 showed LVEF 65%. Grade 1 left ventricular diastolic dysfunction. Left atrium is moderately dilated. Mild tricuspid regurgitation. Pulmonary artery systolic pressure is upper normal. Patient received IV Lasix 40mg. Her home dose of Lasix has been increased to 20 mg daily from 20 mg as needed. Patient was evaluated by pulmonary service and is recommending outpatient pulmonology follow-up. On the day of discharge patient's O2 was able to be weaned off of supplemental oxygen to room air and saturating 95%. Patient will be prescribed with home nebulizer machine and prescriptions for nebulizers. Prior to being discharged patient did have a large bowel movement. Patient's x- ray of the abdomen showed mild fecal residue throughout the colon. Patient was evaluated by PT recommending STR however patient declined at this time. Patient therefore will be discharged home with services. DISCHARGE DAY INFORMATION: DISCHARGE PHYSICAL EXAM: Vital signs: Blood pressure 137/74, pulse 68, temperature 36.7 ??C (98.1 ??F), temperature source Oral, resp. rate 18, height 1.676 m (5' 6 ), weight 118.4 kg (261 lb), SpO2 95%, not currently . General: Oriented x3 cooperative and pleasant. HEENT: Normocephalic atraumatic Lungs: Clear to auscultation bilaterally Heart: Regular rate and rhythm Abdomen: Bowel sounds in all 4 quadrants nondistended nontender. No hepatosplenomegaly. Extremities: No cyanosis clubbing or edema Neurological: No focal deficit LAB AND RADIOLOGY: LABS: Pertinent labs include Recent Results (from the past 24 hours) Basic Metabolic Panel Collection Time: 06/26/24 6:22 AM Specimen: Venous, Peripheral; Blood Result Value Ref Range NA 139 136 - 145 mmol/L K 5.4 (H) 3.5 - 5.1 mmol/L Cl 101 98 - 109 mmol/L CO2 30 22 - 32 mmol/L BUN 33 (H) 8 - 23 mg/dL Creatinine 1.24 (H) 0.50 - 1.12 mg/dL Glucose 85 60 - 99 mg/dL Calcium 9.0 8.4 - 10.4 mg/dL Anion Gap 13 >=0 eGFR 46 (L) >=60 mL/min/1.73m2 CBC Collection Time: 06/26/24 6:22 AM Specimen: Venous, Peripheral; Blood Result Value Ref Range WBC 15.0 (H) 4.8 - 10.8 10*3/uL RBC 4.51 4.20 - 5.40 10*6/uL Hemoglobin 13.1 11.7 - 15.5 g/dL Hematocrit 40.5 35.7 - 45.8 % MCV 89.8 81.0 - 99.0 fL MCH 29.0 26.0 - 34.0 pg MCHC 32.3 31.0 - 36.0 g/dL RDW 13.2 12.0 - 15.0 % Platelets 220 140 - 440 10*3/uL MPV 9.4 9.4 - 12.3 fL RDW Standard Deviation 43.5 36.4 - 46.3 fL IMAGING: Pertinent Imaging results include X-Ray Abdomen 1 View Result Date: 06/26/2024 FINDINGS/IMPRESSION: Mild fecal residue throughout the colon. Multiple surgical clips over the RUQ.Lower lumbar DJD, laminectomy and fusion from L3 to and including S1. Total hip replacement on the right as well. If this radiology report contains a blank impression section, it is an incomplete radiology report. Please contact the interpreting radiologist or applicable radiology division as soon as possible to obtain the completed interpretation. Workstation ID: [id number] [facility] PLAN OF CARE CONSULTS: IP CONSULT TO PULMONOLOGY IP CONSULT TO IV THERAPY NURSE IP CONSULT TO CARDIOLOGY IP CONSULT TO IV THERAPY NURSE IP CONSULT TO RESPIRATORY CARE IP CONSULT TO IV THERAPY NURSE CONDITION: Good ADVANCED CARE PLANNING Code Status: Full Code Medical Decision Maker: Patient I anticipate that this patient's expected length of stay in a retirement facility will be lessthan 30 days. I spent 35 minutes performing discharge day services (e.g. examination, discussion of hospital course, follow up care and planning) as appropriate Signature: Rosanna Marie NP Electronic Signature documented in this encounter Discharge Instructions * Discharge Instr - Diet* Rosanna Marie NP - 06/26/2024 3:13 PM EST Sodium Restricted Sodium restrictions may be ordered for patients with high blood pressure, congestive heart failure,or swelling/fluid retention. Intake of salty foods such as pretzels, potato chips, canned vegetables, regular soups, deli meats, regular cheese, regular tomato juice, and condiments like salt and regular salad dressing is avoided. * Appointments* Mariajose Calvillo RN - 06/18/2024 11:23 AM EST COPD GUIDELINES: DO PURSED LIP BREATHING (BREATH IN SLOWLY THROUGH YOUR NOSE AND BLOW OUT SLOWLY THROUGH PURSED LIPS- LIKE BLOWING OUT A CANDLE) IF YOU START TO FEEL SHORT OF BREATH. CLOSE YOUR EYES AND FOCUS ON THIS BREATHING. CLEAR SECRETIONS BY TAKING A SLOW DEEP BREATH IN THROUGH YOUR NOSE, HOLD IT FOR A FEW SECONDS, THENOPEN YOUR MOUTH SLIGHTLY AND FORCE A BREATH FROM YOUR ABDOMEN 2-3 TIMES YOU EXHALE (LIKE A ADAN), RELAX FOR A FEW SECONDS AND DO AGAIN A FEW MORE TIMES. DRINKING WARM LIQUIDS CAN THIN SECREATIONS ALSO. AVOID CAFFEINE DRINKS. PREVENT INFECTION BY WASHING HANDS WHEN HOME, USING HAND PROPERTY ANALYST WHEN OUT IN THE COMMUNITY, AVOIDCONTACT WITH PEOPLE WHO ARE SICK, STAY UP TO DATE WITH YOUR VACCINATIONS, EAT HEALTHY TO MAINTAIN AHEALTHY WEIGHT. WEAR A MASK WHEN OUT IN THE POLLEN OR IN A LARGE CROWD. TAKE YOUR MEDICATIONS DIRECTED. CALL FOR REFILLS BEFORE YOU RUN OUT. STAY ACTIVE. AVOID SMOKING.LIMIT ALCOHOL. GET ENOUGH SLEEP/REST. KNOW YOUR TRIGGERS. KEEP YOUR FOLLOW-UP APPOINTMENTS WITH YOUR DOCTORS. CONSERVE ENERGY WHEN POSSIBLE. PLAN ACTIVITIES AHEAD OF TIME AND PRIORITIZE. PACE YOURSELF AND TAKEREST PERIODS. ASK FOR HELP WHEN NEEDED. HOME OXYGEN: DO NOT SMOKE AND KEEP AWAY FROM ANY TYPE OF OPEN FLAME OR ANYTHING FLAMABLE, DO NOT USE ANY TYPE OF AEROSOL SPRAYS OR PETROLEUM PRODUCTS THEY ARE FLAMMABLE. documented in this encounter Medications at Time of Discharge apixaban (Eliquis) 5 mg tabletIndications:A trial fibrillation, unspecified type (HCC) Take 1 tablet (5 mg total) by mouth every 12 hours. 60 tablet 06/28/2024 arformoteroL (Brovana) 15 mcg/2 mL nebulizer solution Inhale 2 mL (15 mcg total) via nebulizer every 12 hours. 120 mL 06/26/2024 benzonatate (TESSALON) 100 mg capsule Take 1 capsule (100 mg total) by mouth 3 times a day as needed for cough. 30 capsule 06/26/2024 budesonide (PULMICORT) 0.5 mg/2 mL suspension Inhale 2 mL (0.5 mg total) via nebulizer every 12 hours. Rinse mouth with water after use to reduce aftertaste and incidence of candidiasis. Do not swallow. 120 mL 06/26/2024 busPIRone (BUSPAR) 7.5 mg tablet Take 7.5 mg by mouth 2 (two) times a day. diltiazem XR (DILACOR XR) 120 mg 24 hr capsule Take 120 mg by mouth once a day. DULoxetine DR (CYMBALTA) 60 mg capsule Take 60 mg by mouth once a day. flecainide (TAMBOCOR) 100 mg tablet Take 100 mg by mouth 2 times a day. guaiFENesin ER (MUCINEX) 600 mg tablet Take 1 tablet (600 mg total) by mouth every 12 hours. 60 tablet 06/26/2024 ipratropium-albuter oL (DUO-NEB) 0.5-2.5 mg/3 mL nebulizer solution Inhale 3 mL via nebulizer every 4 hours as needed for wheezing or shortness of breath. 360 mL 06/26/2024 levothyroxine (SYNTHROID, LEVOTHROID) 112 mcg tablet Take 1 tablet (112 mcg total) by mouth daily. 30 tablet 06/04/2024 lisdexamfetamine (VYVANSE) 20 mg capsule Take 20 mg by mouth every morning. methocarbamoL (ROBAXIN) 750 mg tablet Take 750 mg by mouth 3 times a day. nystatin (MYCOSTATIN) 100,000 unit/mL suspension Take 5 mL (500,000 Units total) by mouth 4 times a day. 300 mL 06/26/[address] (PROTONIX) 40 mg tablet Take 1 tablet (40 mg total) by mouth once a day. 30 tablet 06/27/2024 pregabalin (LYRICA) 150 mg capsule Take 150 mg by mouth 2 times a day. senna (SENOKOT) 8.6 mg tablet Take 2 tablets (17.2 mg total) by mouth once a day. 60 tablet 06/26/2024 sodium zirconium cyclosilicate (LOKELMA) 5 gram powder in packet powder Take 3 packets (15 g total) by mouth once a day. 30 packet 06/27/2024 traZODone (DESYREL) 50 mg tablet Take 50 mg by mouth nightly. -- 1-2 TABS EVERY NIGHT, STARTS WITH 50 MG AND TAKES A SECOND TABLET IF NOT SLEEPING predniSONE (DELTASONE) 10 mg tablet Take 4 tablets (40 mg total) by mouth once a day for 2 days, THEN 3 tablets (30 mg total) once a day for 2 days, THEN 2 tablets (20 mg total) once a day for 2 days, THEN 1 tablet (10 mg total) once a day for 2 days. 20 tablet 06/27/2024 5 traMADoL 100 mg tablet Take 1 tablet (100 mg total) by mouth every 8 hours as needed (pain) for up to 3 days. 10 tablet 06/26/2024 5 documented as of this encounter Progress Notes * Olivia Arteaga, MEY - 06/25/2024 12:37 PM EST Progress Note Subjective CHIEF COMPLAINT: LE weakness 24 HOUR INTERVAL HISTORY: Reports no BM in 10 days Has been stable on room air this AM PT eval--> recommend STR MEDICATIONS: All medications reviewed. Objective Temp: [36.3 ??C (97.4 ??F)-36.8 ??C (98.2 ??F)] 36.8 ??C (98.2 ??F) Heart Rate: [66-77] 66 Resp: [18-20] 18 BP: (123-151)/(71-86) 123/71 SpO2: [93 %-96 %] 93 % . Active Lines Name Placement date Placement time Site Days Peripheral IV 06/23/24 Anterior;Right Forearm 06/23/24 1031 Forearm 2 , Active Drains None Physical Exam Physical Exam Vitals and nursing note reviewed. Constitutional: Appearance: Normal appearance. HENT: Head: Normocephalic. Eyes: Extraocular Movements: Extraocular movements intact. Pupils: Pupils are equal, round, and reactive to light. Cardiovascular: Rate and Rhythm: Normal rate. Pulmonary: Effort: Pulmonary effort is normal. Abdominal: Palpations: Abdomen is soft. Musculoskeletal: General: Normal range of motion. Cervical back: Normal range of motion. Skin: General: Skin is warm and dry. Neurological: General: No focal deficit present. Mental Status: She is alert. Psychiatric: Mood and Affect: Mood normal. Result Review I have reviewed the patient's labs results from the last 24 hours. Imaging/Other Studies I have personally reviewed the patient's imaging results Assessment & Plan Principal Problem: Pneumonia due to organism Active Problems: Lumbar canal stenosis A-fib (CMS/HCC) ([facility]) Hypothyroidism Chronic obstructive pulmonary disease with acute exacerbation ([facility]) Severe asthma with exacerbation Acute respiratory failure with hypoxia ([facility]) Diastolic CHF, acute (CMS/HCC) ([facility]) Elevated serum creatinine Constipation Hyperkalemia * Pneumonia due to organism Assessment & Plan CT chest shows no evidence of PE. Left bibasilar consolidation along with left lower lobe nodules. This could relate to pneumonia and/or aspiration. CXR ordered on 06/18/2024 resulted today 06/20/2024 showing with demonstration of left bibasilar consolidation. Follow-up chest x-ray (06/22), interval clearing of prior left lower lobe infiltrate/atelectasis BC negative to date Urine Legionella and streptococcal pneumonia, and mycoplasma pneumonia negative Sputum C+S grew rayna albicans. Started Nystatin S&S. - completed 9-day course Ceftriaxone - Completed 5-day course of azithromycin. - resp status stable on room air today Hyperkalemia Assessment & Plan K 6.2--> 5.1 -Losartan on hold -Lokelma dose this a.m. Constipation Assessment & Plan Constipation: Bowel regimen ordered. Enema today Elevated serum creatinine Assessment & Plan Slight elevation in creatinine, likely due to IV Lasix. Improved after IV Lasix stopped. Diastolic CHF, acute (CMS/HCC) ([facility]) Assessment & Plan CHF diastolic component: She developed increased requirement for oxygen yesterday. CXR ordered on 06/18/2024 resulted 06/20/2024 showing left basilar consolidation. No new abnormality in the chest. CHFsecondary to likely pneumonia and COPD exacerbation. Pro-BNP elevated 2998 Echocardiogram on 06/04/2024 LVEF 65%. Grade 1 left ventricular diastolic dysfunction. Left atrium is moderately dilate Mild tricuspid regurgitation Pulmonary artery systolic pressure is upper normal. - Continue Lasix 20mg PO daily. She had been on 40mg IV and diuresed over 3L. - Daily weight - Maintain low sodium diet. - Troponin 14. 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 Tachypnea with RR increased to 22 RPM. She is not home-O2 dependent. -Wean supplemental O2 as tolerated, presently om room air -Taper steroids -Continue supportive therapy with nebulized bronchodilators, ICS and multiple antitussives. -Avoid increasing Tramadol in setting of COPD/asthma. Severe asthma with exacerbation Assessment & Plan PMH significant for asthma. Therapy as above. Chronic obstructive pulmonary disease with acute exacerbation (HCC) Assessment & Plan No formal diagnosis of COPD, but she was a former smoker. - Plan for home nebulizer at discharge. -Wean supplemental O2 as tolerated -Check trending SpO2 -Taper steroids Hypothyroidism Assessment & Plan Continue with Levothyroxine 112 mcg daily. TSH WNL A-fib (CMS/HCC) ([facility]) Assessment & Plan A-Fib: Secondary hypercoagulable state due to arrhythmia. - Continue anticoagulation with Eliquis for stroke prevention. - HR controlled on Flecainide. - d/c tele Lumbar canal stenosis Assessment & Plan Lumbar canal stenosis: Likely exacerbating her symptoms. She C/O pain. - Continue Tramadol, unable to increase due to resp status. - Increased Lyrica to 200mg BID. - She has an appointment at the end of this week with a spine surgeon. - Continue Vit D and calcium supplements. - Toradol stopped, as this does not help and she thinks it is exacerbating her GERD. - Refused Lidoderm patches. - Added Lorazepam PRN for anxiety and may help her relax and ease her pain. -PT eval --> recommend STR GLOBAL PLAN OF CARE FLUIDS AND NUTRITION FLUIDS: NUTRITION: Diet, Adult Regular, Other (Specify); Sodium Restricted; 2,300 mg Na QUALITY Telemetry: plan to discontinue telemetry today VTE PROPHYLAXIS Apixaban ADVANCED CARE PLANNING Code Status: Full Code Medical Decision Maker: I have reviewed, updated, and verified this note's content. Signature: Olivia Arteaga NP Electronic Signature * Olivia Arteaga NP - 06/24/2024 1:37 PM EST Progress Note Subjective CHIEF COMPLAINT: Lower extremity weakness 24 HOUR INTERVAL HISTORY: Patient tearful this morning, upset about chronic spinal stenosis and difficulty ambulating Denies shortness of breath, on 2 L nasal cannula Reports no BM this morning Discussed a.m. lab results and treatment for hyperkalemia PT eval pending MEDICATIONS: All medications reviewed. Objective Temp: [36.3 ??C (97.4 ??F)-36.9 ??C (98.4 ??F)] 36.9 ??C (98.4 ??F) Heart Rate: [66-86] 70 Resp: [18-20] 18 BP: (120-144)/(74-87) 138/74 SpO2: [91 %-95 %] 94 % . Active Lines Name Placement date Placement time Site Days Peripheral IV 06/23/24 Anterior;Right Forearm 06/23/24 1031 Forearm 1 , Active Drains None Physical Exam Physical Exam Vitals and nursing note reviewed. Constitutional: General: She is not in acute distress. Appearance: She is obese. HENT: Head: Normocephalic. Mouth/Throat: Mouth: Mucous membranes are moist. Eyes: Extraocular Movements: Extraocular movements intact. Pupils: Pupils are equal, round, and reactive to light. Cardiovascular: Rate and Rhythm: Normal rate. Pulmonary: Effort: Pulmonary effort is normal. No respiratory distress. Breath sounds: Rhonchi present. Abdominal: Palpations: Abdomen is soft. Musculoskeletal: General: Normal range of motion. Cervical back: Normal range of motion. Skin: General: Skin is warm and dry. Neurological: Mental Status: She is alert and oriented to person, place, and time. Mental status is at baseline. Cranial Nerves: No cranial nerve deficit. Psychiatric: Comments: Distraught mood Result Review I have reviewed the patient's labs results from the last 24 hours. Imaging/Other Studies I have personally reviewed the patient's imaging results Assessment & Plan Principal Problem: Pneumonia due to organism Active Problems: Lumbar canal stenosis A-fib (CMS/HCC) ([facility]) Hypothyroidism Chronic obstructive pulmonary disease with acute exacerbation (HCC) Severe asthma with exacerbation Acute respiratory failure with hypoxia (HCC) Diastolic CHF, acute (CMS/HCC) (HCC) Elevated serum creatinine Constipation Hyperkalemia * Pneumonia due to organism Assessment & Plan CT chest shows no evidence of PE. Left bibasilar consolidation along with left lower lobe nodules. This could relate to pneumonia and/or aspiration. CXR ordered on 06/18/2024 resulted today 06/20/2024 showing with demonstration of left bibasilar consolidation. Follow-up chest x-ray (06/22), interval clearing of prior left lower lobe infiltrate/atelectasis BC negative to date Urine Legionella and streptococcal pneumonia, and mycoplasma pneumonia negative Sputum C+S grew rayna albicans. Started Nystatin S&S. - completed 9-day course Ceftriaxone - Completed 5-day course of azithromycin. Hyperkalemia Assessment & Plan -Losartan on hold -Lokelma dose this a.m. -IV insulin/D50 water -Repeat BMP this afternoon Constipation Assessment & Plan Constipation: Bowel regimen ordered. Elevated serum creatinine Assessment & Plan Slight elevation in creatinine, likely due to IV Lasix. Improved after IV Lasix stopped. Diastolic CHF, acute (CMS/HCC) ([facility]) Assessment & Plan CHF diastolic component: She developed increased requirement for oxygen yesterday. CXR ordered on 06/18/2024 resulted 06/20/2024 showing left basilar consolidation. No new abnormality in the chest. CHFsecondary to likely pneumonia and COPD exacerbation. Pro-BNP elevated 2998 Echocardiogram on 06/04/2024 LVEF 65%. Grade 1 left ventricular diastolic dysfunction. Left atrium is moderately dilate Mild tricuspid regurgitation Pulmonary artery systolic pressure is upper normal. - Continue Lasix 20mg PO daily. She had been on 40mg IV and diuresed over 3L. - Daily weight - Maintain low sodium diet. - Troponin 14. 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 Tachypnea with RR increased to 22 RPM. She is not home-O2 dependent. -Wean supplemental O2 as tolerated, presently weaned to 2L [employer] -Taper steroids -Continue supportive therapy with nebulized bronchodilators, ICS and multiple antitussives. -Avoid increasing Tramadol in setting of COPD/asthma. Severe asthma with exacerbation Assessment & Plan PMH significant for asthma. Therapy as above. Chronic obstructive pulmonary disease with acute exacerbation (HCC) Assessment & Plan No formal diagnosis of COPD, but she was a former smoker. - Plan for home nebulizer at discharge. -Wean supplemental O2 as tolerated -Check trending SpO2 -Taper steroids Hypothyroidism Assessment & Plan Continue with Levothyroxine 112 mcg daily. TSH WNL A-fib (CMS/HCC) (HCC) Assessment & Plan A-Fib: Secondary hypercoagulable state due to arrhythmia. - Continue anticoagulation with Eliquis for stroke prevention. - HR controlled on Flecainide. Lumbar canal stenosis Assessment & Plan Lumbar canal stenosis: Likely exacerbating her symptoms. She C/O pain. - Continue Tramadol, unable to increase due to resp status. - Increased Lyrica to 200mg BID. - She has an appointment at the end of this week with a spine surgeon. - Continue Vit D and calcium supplements. - Toradol stopped, as this does not help and she thinks it is exacerbating her GERD. - Refused Lidoderm patches. - Added Lorazepam PRN for anxiety and may help her relax and ease her pain. -PT eval pending GLOBAL PLAN OF CARE FLUIDS AND NUTRITION FLUIDS: NUTRITION: Diet, Adult Regular, Other (Specify); Sodium Restricted; 2,300 mg Na QUALITY Telemetry: Reason for telemetry monitoring is hyperkalemia VTE PROPHYLAXIS Apixaban ADVANCED CARE PLANNING Code Status: Full Code Medical Decision Maker: I have reviewed, updated, and verified this note's content. Signature: Olivia Arteaga NP Electronic Signature * Sydney David NP - 06/23/2024 4:19 PM EST Progress Note Subjective CHIEF COMPLAINT: Mood improved on exam. Informed son, Maurice, findings, condition and plan of care. 24 HOUR INTERVAL HISTORY: Remains hemodynamically stable on O2. C/O she is anxious and has not had a BM in ~ 1 week. She reports dyspnea and cough and pain along left rib border. Small ecchymosis noted in the area with reproducible pain. MEDICATIONS: All medications reviewed. ObjectiveTemp: [36.3 ??C (97.3 ??F)-36.9 ??C (98.5 ??F)] 36.7 ??C (98 ??F) Heart Rate: [60-86] 86 Resp: [16-22] 20 BP: (120-159)/(73-87) 132/87 SpO2: [94 %-95 %] 95 % Lines: IV site intact. Physical Exam General appearance: Alert, In no acute distress, Ox3, and Obese HEENT: Normocephalic, atraumatic Pupils are equal, round and react to light Nonicteric Extraocular movements intact Mucous membranes moist and without lesions Lungs: coarse throughout. Heart: Rate and Rhythm: regular Abdomen: Soft, non-tender throughout, obese, normoactive bowel sounds , and bowel sounds normactive Extremities: Normal range of motion, Skin warm and dry, and mild sock edema BLE. Skin: No rash or ulcers Neurologic: Alert and oriented x 3, CN II - XII intact, Motor 5/5 throughout, Sensation intact, Hearing normal, and Memory intact Mood in better spirits. Result Review I have reviewed the patient's labs results from the last 24 hours. Imaging/Other Studies I have personally reviewed the patient's imaging results Assessment & Plan Principal Problem: Pneumonia due to organism Active Problems: Lumbar canal stenosis A-fib ([facility]) ([facility]) Hypothyroidism Chronic obstructive pulmonary disease with acute exacerbation ([facility]) Severe asthma with exacerbation Acute respiratory failure with hypoxia ([facility]) Diastolic CHF, acute ([facility]) ([facility]) Elevated serum creatinine Constipation * Pneumonia due to organism Assessment & Plan CT chest shows no evidence of PE. Left bibasilar consolidation along with left lower lobe nodules. This could relate to pneumonia and/or aspiration. CXR ordered on 06/18/2024 resulted today 06/20/2024 showing with demonstration of left bibasilar consolidation. Continue Ceftriaxone 1G IV daily. She has finished a course of Azithromycin. BC negative to date Urine Legionella and streptococcal pneumonia, and mycoplasma pneumonia negative Sputum C+S grew rayna albicans. Started Nystatin S&S. Constipation Assessment & Plan Constipation: Bowel regimen ordered. Elevated serum creatinine Assessment & Plan Slight elevation in creatinine, likely due to IV Lasix. Improved after IV Lasix stopped. Diastolic CHF, acute ([facility]) ([facility]) Assessment & Plan CHF diastolic component: She developed increased requirement for oxygen yesterday. CXR ordered on 06/18/2024 resulted today 06/20/2024 showing with demonstration of left bibasilar consolidation. No newabnormality in the chest. CHF secondary to likely pneumonia and COPD exacerbation. Pro-BNP elevated 2998 Echocardiogram on 06/04/2024 LVEF 65%. Grade 1 left ventricular diastolic dysfunction. Left atrium is moderately dilate Mild tricuspid regurgitation Pulmonary artery systolic pressure is upper normal. Continue Lasix 20mg PO daily. She had been on 40mg IV and diuresed over 3L. Weight down Maintain low sodium diet. Troponin 14. 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 Tachypnea with RR increased to 22 RPM. She is not home-O2 dependent. Presently weaned to 2L [employer], but still coarse with rhonchus cough. Reduced IV steroids as no wheezing on exam and she appears tearful and depressed. Continue supportive therapy with nebulized bronchodilators, ICS and multiple antitussives. Avoid increasing Tramadol in setting of COPD/asthma. Severe asthma with exacerbation Assessment & Plan PMH significant for asthma. Therapy as above. Chronic obstructive pulmonary disease with acute exacerbation (HCC) Assessment & Plan No formal diagnosis of COPD, but she was a former smoker. Plan for home nebulizer at discharge. Hypothyroidism Assessment & Plan Continue with Levothyroxine 112 mcg daily. TSH WNL A-fib (CMS/HCC) ([facility]) Assessment & Plan A-Fib: HR controlled on Flecainide. Secondary hypercoagulable state due to arrhythmia. Continue anticoagulation with Eliquis for stroke prevention. Lumbar canal stenosis Assessment & Plan Lumbar canal stenosis: Likely exacerbating her symptoms. She C/O pain. Continue Tramadol, unable to increase due to resp status. Increased Lyrica to 200mg BID. She has an appointment at the end of this week with a spine surgeon. Continue Vit D and calcium supplements. Ca low at 8.2, check vit D level. Toradol stopped, as this does not help and she thinks it is exacerbating her GERD. Refused Lidoderm patches. Added Lorazepam PRN for anxiety and may help her relax and ease her pain. GLOBAL PLAN OF CARE FLUIDS AND NUTRITION FLUIDS: NUTRITION: Diet, Adult Regular, Other (Specify); Sodium Restricted; 2,300 mg Na QUALITY Telemetry: Reason for telemetry monitoring is AF VTE PROPHYLAXIS Apixaban ADVANCED CARE PLANNING Code Status: Full Code Medical Decision Maker: Self I have reviewed, updated, and verified this note's content. Signature: Sydney David NP Electronic Signature * Sydney David NP - 06/22/2024 5:58 PM EST Progress Note Subjective CHIEF COMPLAINT: Tearful on exam with multiple C/O not feeling well exacerbated by chronic pain she describes as a heavy cloak from neck radiating to shoulders and both arms. 24 HOUR INTERVAL HISTORY: Remains hemodynamically stable on O2. C/O she is anxious and has not had a BM in ~ 1 week. She reports dyspnea and cough and pain along left rib border. Small ecchymosis noted in the area with reproducible pain. MEDICATIONS: All medications reviewed. ObjectiveTemp: [36.3 ??C (97.4 ??F)-37.1 ??C (98.7 ??F)] 37.1 ??C (98.7 ??F) Heart Rate: [66-91] 68 Resp: [16-19] 16 BP: (121-158)/(72-86) 125/72 SpO2: [92 %-95 %] 95 % Lines: IV site intact. Physical Exam General appearance: Alert, In no acute distress, Ox3, Anxious, and tearful (? Steroids). HEENT: Normocephalic, atraumatic Pupils are equal, round and react to light Nonicteric Extraocular movements intact Hearing grossly normal Mucous membranes moist and without lesions Lungs: Coarse LS throughout, but no wheezing or rhonchi. Heart: Rate and Rhythm: regular Abdomen: Soft, non-tender throughout, obese, normoactive bowel sounds , No rebound or guarding, andNo TTP. Extremities: Normal range of motion, Skin warm and dry, and No cyanosis, clubbing or edema Skin: No rash or ulcers Neurologic: Alert and oriented x 3, CN II - XII intact, Motor 5/5 throughout, Sensation intact, Hearing normal, and Memory intact Mood depressed and anxious. Result Review I have reviewed the patient's labs results from the last 24 hours. Imaging/Other Studies I have personally reviewed the patient's imaging results Assessment & Plan Principal Problem: Pneumonia due to organism Active Problems: Lumbar canal stenosis A-fib (CMS/HCC) ([facility]) Hypothyroidism Chronic obstructive pulmonary disease with acute exacerbation (HCC) Severe asthma with exacerbation Acute respiratory failure with hypoxia ([facility]) Diastolic CHF, acute (CMS/HCC) ([facility]) Elevated serum creatinine Constipation * Pneumonia due to organism Assessment & Plan CT chest shows no evidence of PE. Left bibasilar consolidation along with left lower lobe nodules. This could relate to pneumonia and/or aspiration. CXR ordered on 06/18/2024 resulted today 06/20/2024 showing with demonstration of left bibasilar consolidation. Continue Ceftriaxone 1G IV daily. She has finished a course of Azithromycin. BC negative to date Urine Legionella and streptococcal pneumonia, and mycoplasma pneumonia negative Sputum C+S grew rayna albicans. Started Nystatin S&S. Elevated serum creatinine Assessment & Plan Slight elevation in creatinine, likely due to IV Lasix. Improved after IV Lasix stopped. Diastolic CHF, acute ([facility]/HCC) ([facility]) Assessment & Plan CHF diastolic component: She developed increased requirement for oxygen yesterday. CXR ordered on 06/18/2024 resulted today 06/20/2024 showing with demonstration of left bibasilar consolidation. No newabnormality in the chest. CHF secondary to likely pneumonia and COPD exacerbation. Pro-BNP elevated 2998 Echocardiogram on 06/04/2024 LVEF 65%. Grade 1 left ventricular diastolic dysfunction. Left atrium is moderately dilate Mild tricuspid regurgitation Pulmonary artery systolic pressure is upper normal. Continue Lasix 20mg PO daily. She had been on 40mg IV and diuresed over 3L. Weight down Maintain low sodium diet. Troponin 14. 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 Tachypnea with RR increased to 22 RPM. She is not home-O2 dependent. Presently weaned to 2L [employer], but still coarse with rhonchus cough. Reduced IV steroids as no wheezing on exam and she appears tearful and depressed. Continue supportive therapy with nebulized bronchodilators, ICS and multiple antitussives. Avoid increasing Tramadol in setting of COPD/asthma. Severe asthma with exacerbation Assessment & Plan PMH significant for asthma. Therapy as above. Chronic obstructive pulmonary disease with acute exacerbation ([facility]) Assessment & Plan No formal diagnosis of COPD, but she was a former smoker. Plan for home nebulizer at discharge. Hypothyroidism Assessment & Plan Continue with Levothyroxine 112 mcg daily. TSH WNL A-fib ([facility]/HCC) ([facility]) Assessment & Plan A-Fib: HR controlled on Flecainide. Secondary hypercoagulable state due to arrhythmia. Continue anticoagulation with Eliquis for stroke prevention. Lumbar canal stenosis Assessment & Plan Lumbar canal stenosis: Likely exacerbating her symptoms. She C/O pain. Continue Tramadol, unable to increase due to resp status. Increased Lyrica to 200mg BID. She has an appointment at the end of this week with a spine surgeon. Continue Vit D and calcium supplements. Ca low at 8.2, check vit D level. Toradol stopped, as this does not help and she thinks it is exacerbating her GERD. Refused Lidoderm patches. Added Lorazepam PRN for anxiety and may help her relax and ease her pain. GLOBAL PLAN OF CARE FLUIDS AND NUTRITION FLUIDS: NUTRITION: Diet, Adult Regular, Other (Specify); Sodium Restricted; 2,300 mg Na QUALITY Telemetry: Reason for telemetry monitoring is AF VTE PROPHYLAXIS Apixaban Pharmacologic VTE Prophylaxis contraindicated/not needed ADVANCED CARE PLANNING Code Status: Full Code Medical Decision Maker: Self I have reviewed, updated, and verified this note's content. Signature: Sydney David NP Electronic Signature * Andrew Finney MD - 06/21/2024 5:41 PM EST PROGRESS NOTE Subjective CHIEF COMPLAINT: 06/21/2024 Admitted on 06/15/2024 (Hospital Day: 7) due to Pneumonia due to an unspecified organism 24 HOUR INTERVAL HISTORY: Patient seen and examined at the bedside. No events reported overnight. She continues to complain of left-sided posterior chest pain, especially when she coughs. She is getting Toradol IV and tramadol as needed for pain control. She reports nausea this morning, but denies any vomiting. Her cough iscurrently productive of white phlegm. She reports dyspnea on mild exertion. She states that she hasnot had a bowel movement for 5 days. She declines suppositories or enemas. Review of Systems: As above. Otherwise, noncontributory. MEDICATIONS: REVIEWED CURRENT: apixaban, 5 mg, oral, q12h RANDI budesonide nebulizer, 1 mg, inhalation, q12h RANDI busPIRone, 7.5 mg, oral, BID cefTRIAXone, 1 g, intravenous, q24h RANDI dilTIAZem CD, 120 mg, oral, Daily docusate, 100 mg, oral, 2x daily DULoxetine DR, 60 mg, oral, Daily flecainide, 100 mg, oral, 2x daily guaiFENesin ER, 600 mg, oral, q12h RANDI ipratropium-albuteroL, 3 mL, inhalation, 4x daily levothyroxine, 112 mcg, oral, Daily losartan, 50 mg, oral, 2x daily methocarbamoL, 750 mg, oral, 3x daily methylPREDNISolone sodium succinate, 60 mg, intravenous, q6h pantoprazole DR, 40 mg, oral, Daily pregabalin, 150 mg, oral, 2x daily senna, 17.2 mg, oral, Nightly sodium chloride, 2.5-10 mL, intravenous, See admin instructions And sodium chloride, 2.5-10 mL, intravenous, q12h RANDI traZODone, 100 mg, oral, Nightly PRN: acetaminophen, 650 mg, oral, q4h PRN albuterol, 2.5 mg, inhalation, q4h PRN aluminum-magnesium hydroxide-simethicone, 30 mL, oral, q4h PRN benzonatate, 100 mg, oral, 3x daily PRN bisacodyL, 5 mg, oral, Daily PRN calcium carbonate, 1,000 mg, oral, 2x daily PRN codeine-guaiFENesin, 5 mL, oral, q4h PRN diphenhydrAMINE, 25 mg, oral, q6h PRN furosemide, 20 mg, oral, Daily PRN ipratropium-albuteroL, 3 mL, inhalation, q4h PRN ketorolac, 15 mg, intravenous, q6h PRN naloxone, 0.04 mg, intravenous, q3min PRN naloxone, 0.4 mg, intravenous, q2h PRN ondansetron, 4 mg, oral, q8h PRN polyethylene glycol 3350, 17 g, oral, Daily PRN traMADoL, 50 mg, oral, q8h PRN triamcinolone acetonide, 1 application., topical, Daily PRN Objective VITAL SIGNS FOR PAST 24 Hours ([High] [Low] (Last Recorded Value)): Temp: [36.1 ??C (97 ??F)-37.1 ??C (98.7 ??F)] 37.1 ??C (98.7 ??F) Heart Rate: [62-75] 72 Resp: [16-22] 20 BP: (117-155)/(69-86) 155/86 SpO2: [90 %-95 %] 94 % I/Os LAST 24 HOURS: Intake/Output Summary (Last 24 hours) at 06/21/2024 1733 Last data filed at 06/21/2024 1350 Gross per 24 hour Intake 1220 ml Output 300 ml Net 920 ml PHYSICAL EXAMINATION: GENERAL: Alert morbidly obese female in no apparent distress; SKIN: No rash and no significant discoloration EYES / ENT: Pupils equal, round, Conjunctivae non-ictereric; moist mucous membranes NECK: Supple, no JVD, no adenopathy RESPIRATORY: Clear to auscultation, no wheezing, rales or rhonchi CARDIOVASCULAR: Regular rate rhythm. Normal S1 and S2 ABDOMINAL: Normoactive bowel sounds; nontender, no masses, not distended, no rebound, no guarding MUSCULOSKELETAL: No clubbing or cyanosis; trace pedal edema NEUROLOGIC: Alert and oriented; No gross deficits PSYCH: Normal mood and affect LAB: Lab Results Component Value Date NA 137 06/21/2024 K 4.8 06/21/2024 CL 102 06/21/2024 CO2 24 06/21/2024 BUN 45 (H) 06/21/2024 CREATININE 1.15 (H) 06/21/2024 GLUCOSE 143 (H) 06/21/2024 Lab Results Component Value Date WBC 13.0 (H) 06/19/2024 HGB 11.2 (L) 06/19/2024 HCT 33.8 (L) 06/19/2024 MCV 87.3 06/19/2024 RDW 13.2 06/19/2024 PLT 238 06/19/2024 I have personally reviewed the patient's lab results from the past 24 hours. IMAGING /OTHER STUDIES: ECG 12 lead For Preop? No Result Date: 06/21/2024 All Results Normal sinus rhythm with first degree AVB When compared with ECG of 15-JUN-2024 20:08, No significant change was found Confirmed by Stephanie Hampton ([id number]) on 06/21/2024 10:02:50 AM XR Chest Portable 1 View Result Date: 06/20/2024 All Results Redemonstrated left basilar consolidation. No new abnormality in the chest. If this radiology report contains a blank impression section, it is an incomplete radiology report. Please contact the interpreting radiologist or applicable radiology division as soon as possible to obtain the completed interpretation. Workstation ID: [id number] ECG 12 lead Result Date: 06/16/2024 All Results Sinus rhythm with 1st degree AV block Confirmed by Rosi Garcia ([id number]) on 06/16/2024 10:55:[address] Chest PE Result Date: 06/16/2024 All Results No evidence of pulmonary embolism. Left basilar consolidation along with left lower lobe nodules. This could be related to pneumonia and/or aspiration. Follow-up CT chest in 3 month is recommended to ensure resolution of the nodules. If this radiology report contains a blank impression section, it is an incomplete radiology report. Please contact the interpreting radiologist or applicable radiology division as soon as possible to obtain the completed interpretation. Workstation ID: [id number] Up-to-date CT equipment and radiation dose reduction techniques were employed. CTDIvol: .8 - 21.4 mGy. DLP: 802 mGy-cm. XR Chest 2 vw. Standard Result Date: 06/15/2024 All Results New left lower lobe airspace disease, could represent pneumonia. Unremarkable cardiomediastinal silhouette, given rotation and technique. No pleural effusion or pneumothorax. If this radiology report contains a blank impression section, it is an incomplete radiology report. Please contact the interpreting radiologist or applicable radiology division as soon as possible to obtain the completed interpretation. Workstation ID: [id number] I have personally reviewed the patient's imaging results. Assessment & Plan Principal Problem: Pneumonia due to organism Active Problems: Diastolic CHF, acute (CMS/HCC) (HCC) Hypoxia Lumbar canal stenosis A-fib (CMS/HCC) (HCC) Hypothyroidism Chronic obstructive pulmonary disease/asthma with acute exacerbation (HCC) Asthma with exacerbation Elevated serum creatinine Morbid obesity (BMI 42.6) Obstructive sleep apnea * Pneumonia due to organism Atypical chest pain Assessment & Plan CT chest shows no evidence of PE. Left bibasilar consolidation along with left lower lobe nodules. This could relate to pneumonia and/or aspiration. Patient continues to report dyspnea on mild exertion. Currently on supplemental oxygen at 2 L with O2 sat 94%. Blood cultures x 2 are sterile to date.Mycoplasma antibodies negative. Urinary Legionella and Streptococcus pneumonia antigens were negative. Patient has left-sided posterior chest pain upon coughing, likely related to her pneumonia and muscle skeletal etiology. Her high-sensitivity troponin T 14. She is receiving Toradol IV and tramadol as needed for chest pain. A chest x-ray ordered on 06/18/2024 demonstrated left bibasilar consolidation. Continue ceftriaxone IV. She completed a course of azithromycin Supportive care Diastolic CHF, acute (CMS/HCC) ([facility]) Assessment & Plan Patient developed increased requirement for oxygen on 06/19/24. A chest x-ray ordered on 06/18/2024 demonstrated of left bibasilar consolidation. No new abnormality in the chest. Her proBNP 2998 (up from 295) raising concern about acute diastolic CHF. Echocardiogram on 06/04/2024 - LVEF 65%. Grade 1 left ventricular diastolic dysfunction. -Left atrium is moderately dilated -Mild tricuspid regurgitation -Pulmonary artery systolic pressure is upper normal. Patient was started on furosemide IV with clinical improvement. She continues to have exertional dyspnea. Currently on supplemental oxygen at 2 L with O2 sat 94%. Cardiology consult and follow-up appreciated. proBNP trended down to 2459, which remains high at her baseline. Hs-Troponin T 14. Patient received one more dose of furosemide IV this morning, and she should be transition to furosemide p.o. prn Sodium restricted diet Continue diltiazem CD and losartan. Use of beta-blockers is contraindicated in the setting of asthma/COPD. Chronic obstructive pulmonary disease/asthma with acute exacerbation ([facility]) Assessment & Plan Patient reports history of asthma during childhood. She is a former smoker. No formal diagnosis of COPD. Lungs with bilateral wheezes and rhonchi on presentation attributed to acute exacerbation of COPD/asthma Pulmonary consult appreciated Supplemental oxygen to maintain O2 sat > 92%. Continue with scheduled DuoNeb, and Pulmicort. Continue Solu-Medrol IV Mucolytics as needed A home nebulizer machine was ordered by respiratory therapy Hypoxia ([facility]) Assessment & Plan Patient does not use home O2. On presentation, she was hypoxic with O2 sat 88%. She required supplemental oxygen at 3 to 4 L via nasal cannula to maintain O2 sat in the 90s. She was mildly tachypneicwith RR 22. However, she did not exhibit any signs or symptoms of respiratory distress. She had no increased work of breathing nor use of accessory muscles, and he was speaking in full sentences. Therefore, patient met criteria for hypoxia, but did not meet criteria for acute hypoxemic respiratory failure. Continue treatment of pneumonia, acute HFpEF, and acute asthma/COPD exacerbation as outlined above Morbid obesity Obstructive sleep apnea Assessment & Plan Patient was counseled regarding the importance of diet, exercise, and weight reduction. Patient would benefit from follow-up with a registered dietitian to assist in weight reduction. She has a history of BILLIE. Respiratory therapy has been providing her with nocturnal CPAP during herhospital stay. Elevated serum creatinine Assessment & Plan Slight bump in creatinine today likely due to IV Lasix. She does not meet criteria for VIVIAN Patient received a dose of furosemide IV and she may be transition to oral furosemide as needed percardiology Avoid nephrotoxic agents Monitor BUN, creatinine, and electrolytes Hypothyroidism Assessment & Plan Continue with levothyroxine 112 mcg daily. TSH WNL A-fib (CMS/[facility]) ([facility]) Assessment & Plan Continue with diltiazem CD, flecainide and Eliquis. Lumbar canal stenosis Assessment & Plan Patient has an appointment at the end of this week with a spine surgeon. Service: Hospital Medicine GLOBAL PLAN OF CARE FLUIDS AND NUTRITION FLUIDS: NUTRITION: Diet, Adult Regular, Other (Specify); Sodium Restricted; 2,300 mg Na QUALITY Telemetry: Reason for telemetry monitoring is decompensated CHF VTE PROPHYLAXIS Apixaban ADVANCED CARE PLANNING Code Status: Full Code Medical Decision Maker: Patient I have reviewed, updated, and verified this note's content. Signature: Andrew Finney MD Electronic Signature * Stephanie Hampton MD - 06/21/2024 10:00 AM EST Images from the original note were not included. CARDIOLOGY INPATIENT FOLLOW UP Genie Vora 1950 [id number] 06/21/24 Reason for cardiology consult: HFpEF Subjective Edema improved no shortness of breath on 2 L nasal cannula Down 3 pounds I's and O's inaccurate. Impression Genie is a very pleasant 73-year-old woman admitted with left lower lobe pneumonia with weight gain and edema increased oxygen requirement recent echocardiogram normal LV function wall motion normal valves mildly elevated PA systolic pressure with grade 1 diastolic dysfunction. She has been treated with IV diuresis continues to be net +3000 cc since admission unclear I's and O's and down 1 pound resolution of her edema. Back to her baseline shortness of breath with pneumonia. Denies chest pain. Recommendations: 1. HFpEF: Acute congestive heart failure with pneumonia elevated BNP chest x-ray without evidence of congestive heart failure fluid status improving. Repeat troponin normal BNP improving. Repeat EKG without change. Fluid status improving. Will give 1 more dose of IV Lasix today then changed to Lasix as needed she has Lasix tablets at home. Recommend to follow with Mabel Onofre NP postdischarge for diastolic congestive heart failure. Echocardiogram EF 65% left atrial enlargement with grade 1 diastolic dysfunction. Recommend low-salt diet. 2. A flutter/atrial fibrillation: History of a flutter ablation paroxysmal atrial fibrillation on Eliquis 5 twice daily flecainide 100 twice daily. Reviewed telemetry with no arrhythmia. Cardizem CD 120 daily. 3. Essential hypertension/acute renal insufficiency: Losartan 50 mg twice daily Cardizem CD 120 daily IV diuresis with acute renal insufficiency now discontinued creatinine 1.15 GFR 51 today. Acute renal insufficiency creatinine improving 1.15 GFR 51 we will hold on further Lasix treatment.Patient has Lasix tablets at home. Follow with Mabel Onofre NP TCM postdischarge for HFpEF Please request CHF nursing teaching prior to discharge. Allergies Neosporin (Des-Swiie-Ttwloshu) [Idpebmxm-Ispfcbbmy-Cllafmcasq] Prevacid [Lansoprazole] Dscyslc-Yko-Rwo Reductase Inhibitors Medications Current Medications (Taking) as of 06/15/2024 busPIRone (BUSPAR) 7.5 mg tablet Take 7.5 mg by mouth 2 (two) times a day. diltiazem XR (DILACOR XR) 120 mg 24 hr capsule Take 120 mg by mouth once a day. DULoxetine DR (CYMBALTA) 60 mg capsule Take 60 mg by mouth once a day. Eliquis 5 mg tablet Take 1 tablet by mouth 2 times a day. flecainide (TAMBOCOR) 100 mg tablet Take 100 mg by mouth 2 times a day. furosemide (LASIX) 20 mg tablet Take 20 mg by mouth daily as needed (FLUID OVERRLOAD/SWELLING IN LEGS). levothyroxine (SYNTHROID, LEVOTHROID) 112 mcg tablet Take 1 tablet (112 mcg total) by mouth daily. lisdexamfetamine (VYVANSE) 20 mg capsule Take 20 mg by mouth every morning. losartan (COZAAR) 50 mg tablet Take 50 mg by mouth 2 times a day. methocarbamoL (ROBAXIN) 750 mg tablet Take 750 mg by mouth 3 times a day. pregabalin (LYRICA) 150 mg capsule Take 150 mg by mouth 2 times a day. traZODone (DESYREL) 50 mg tablet Take 50 mg by mouth nightly. -- 1-2 TABS EVERY NIGHT, STARTS WITH 50 MG AND TAKES A SECOND TABLET IF NOT SLEEPING triamcinolone acetonide (KENALOG) 0.1% cream Apply 1 application. topically to the affected area asneeded for irritation or rash. Physical Exam Vital Sign (6hrs) for the past 6 hrs: BP Temp Temp src Pulse Resp SpO2 Weight 06/21/24 0900 -- -- -- -- -- 93 % -- 06/21/24 0722 129/69 36.1 ??C (97 ??F) Oral 75 16 92 % -- 06/21/24 0600 -- -- -- -- -- -- 119.7 kg (264 lb) 06/21/24 0403 117/73 36.4 ??C (97.6 ??F) Oral 62 18 93 % -- Physical Exam Vitals reviewed. Constitutional: Appearance: Normal appearance. Neck: Vascular: No carotid bruit or JVD. Cardiovascular: Rate and Rhythm: Normal rate and regular rhythm. Pulses: Normal pulses. Heart sounds: Normal heart sounds, S1 normal and S2 normal. No murmur heard. No friction rub. No gallop. Pulmonary: Effort: Pulmonary effort is normal. Breath sounds: Normal breath sounds. Abdominal: General: Bowel sounds are normal. Palpations: Abdomen is soft. Musculoskeletal: General: No swelling. Right lower leg: No edema. Left lower leg: No edema. Skin: General: Skin is warm and dry. Neurological: Mental Status: She is alert and oriented to person, place, and time. Psychiatric: Mood and Affect: Mood normal. LABS Latest Ref Rng & Units 06/19/2024 6:15 AM CBC WBC 4.8 - 10.8 10*3/uL 13.0 Hgb 11.7 - 15.5 g/dL 11.2 Hct 35.7 - 45.8 % 33.8 MCV 81.0 - 99.0 fL 87.3 Plts 140 - 440 10*3/uL 238 Latest Ref Rng & Units 06/21/2024 6:10 AM Basic Metabolic Panel Sodium 136 - 145 mmol/L 137 Potassium 3.5 - 5.1 mmol/L 4.8 Chloride 98 - 109 mmol/L 102 Carbon Dioxide 22 - 32 mmol/L 24 Glucose 60 - 99 mg/dL 143 Creatinine 0.50 - 1.12 mg/dL 1.15 Calcium 8.4 - 10.4 mg/dL 8.6 EGFR >=60 mL/min/1.73m2 51 Lab Results Component Value Date DDIMER 0.54 (HH) 06/03/2024 Lab Results Component Value Date TPNTHS 14 06/20/2024 TPNTHS 12 06/15/2024 TPNTHS 14 06/15/2024 No results found for: PROBNPNTE Testing I/O last 24 hours: In: 960 [P.O.:960] Out: - Results for orders placed during the hospital encounter of 06/15/24 XR Chest 2 vw. Standard Narrative COMPARISON: Chest x-ray 06/03/2024 FINDINGS AND Impression New left lower lobe airspace disease, could represent pneumonia. Unremarkable cardiomediastinal silhouette, given rotation and technique. No pleural effusion or pneumothorax. If this radiology report contains a blank impression section, it is an incomplete radiology report.Please contact the interpreting radiologist or applicable radiology division as soon as possible toobtain the completed interpretation. Workstation ID: [id number] Prior Echo Procedures Transthoracic echo (TTE) Exam [...] care. If you have any questions please do not hesitate to call. Stephanie Hampton MD This note was generated utilizing speech recognition. Please excuse grammatical errors. * Tia Oh, [employer] - 06/20/2024 12:57 PM EST PROGRESS NOTE Subjective CHIEF COMPLAINT: Pneumonia, diastolic CHF, acute respiratory failure with hypoxia. 24 HOUR INTERVAL HISTORY: Patient seen and examined at bedside. O2 was able to be tapered to 2 L from 3L yesterday. Per cardiology, continue IV Lasix today, and discontinue tomorrow. Review of Systems: Constitutional: Denies fevers/chills Eyes: Denies vision changes. Respiratory: Denies cough, chest discomfort and shortness of breath. Cardiovascular: Denies chest pain and palpitations Gastrointestinal: Denies abd pain, nausea/vomiting Genitourinary: Denies dysuria and frequency. Musculoskeletal: No new arthralgias and myalgias. Neurological: Denies headaches, focal weakness and numbness MEDICATIONS: Scheduled Meds:apixaban, 5 mg, oral, q12h RANDI budesonide nebulizer, 1 mg, inhalation, q12h RANDI busPIRone, 7.5 mg, oral, BID dilTIAZem CD, 120 mg, oral, Daily DULoxetine DR, 60 mg, oral, Daily flecainide, 100 mg, oral, 2x daily guaiFENesin ER, 600 mg, oral, q12h RANDI ipratropium-albuteroL, 3 mL, inhalation, q4h RANDI levothyroxine, 112 mcg, oral, Daily losartan, 50 mg, oral, 2x daily methocarbamoL, 750 mg, oral, 3x daily methylPREDNISolone sodium succinate, 60 mg, intravenous, q6h pregabalin, 150 mg, oral, 2x daily sodium chloride, 2.5-10 mL, intravenous, See admin instructions And sodium chloride, 2.5-10 mL, intravenous, q12h RANDI traZODone, 50 mg, oral, Nightly Continuous Infusions: PRN Meds:.PRN medications: acetaminophen, albuterol, benzonatate, calcium carbonate, codeine-guaiFENesin, diphenhydrAMINE, furosemide, ipratropium- albuteroL, ketorolac, naloxone, naloxone, ondansetron, senna, traMADoL, triamcinolone acetonide Objective VITAL SIGNS FOR PAST 24 Hours ([High] [Low] (Last Recorded Value)): Temp: [36.3 ??C (97.3 ??F)-36.8 ??C (98.3 ??F)] 36.8 ??C (98.3 ??F) Heart Rate: [71-81] 81 Resp: [18-20] 18 BP: (128-152)/(58-90) 139/77 SpO2: [93 %-98 %] 95 % I/Os LAST 24 HOURS: Intake/Output Summary (Last 24 hours) at 06/20/2024 1308 Last data filed at 06/20/2024 0800 Gross per 24 hour Intake 2200 ml Output 2050 ml Net 150 ml GENERAL: No apparent distress EYES / ENT: Pupils equal, round, Conjunctivae non-ictereric RESPIRATORY: Clear to auscultation, no wheezing, rales or rhonchi CARDIOVASCULAR: Regular rate and rhythm SKIN: No rash and no significant discoloration ABDOMINAL: Normoactive bowel sounds; nontender, no masses, not distended MUSCULOSKELETAL:No edema NEUROLOGIC: Alert and not disoriented PSYCH: Normal mood and affect LAB: Lab Results Component Value Date NA 136 06/20/2024 K 4.1 06/20/2024 CL 102 06/20/2024 CO2 21 (L) 06/20/2024 BUN 42 (H) 06/20/2024 CREATININE 1.17 (H) 06/20/2024 GLUCOSE 164 (H) 06/20/2024 Lab Results Component Value Date WBC 13.0 (H) 06/19/2024 HGB 11.2 (L) 06/19/2024 HCT 33.8 (L) 06/19/2024 MCV 87.3 06/19/2024 RDW 13.2 06/19/2024 PLT 238 06/19/2024 I have personally reviewed the patient's lab results from the past 24 hours. Assessment & Plan Principal Problem: Pneumonia due to organism Active Problems: Lumbar canal stenosis A-fib (CMS/HCC) ([facility]) Hypothyroidism Chronic obstructive pulmonary disease with acute exacerbation (HCC) Severe asthma with exacerbation Acute respiratory failure with hypoxia ([facility]) Diastolic CHF, acute (CMS/HCC) ([facility]) Elevated serum creatinine * Pneumonia due to organism Assessment & Plan CT chest shows no evidence of PE. Left bibasilar consolidation along with left lower lobe nodules. This could relate to pneumonia and/or aspiration. A chest x-ray ordered on 06/18/2024 resulted today 06/20/2024 showing with demonstration of left bibasilar consolidation. Continue with IV Rocephin. Patient has finished Zithromax Blood culture negative to date Urine Legionella and streptococcal pneumonia, and mycoplasma pneumonia negative Sputum culture pending Elevated serum creatinine Assessment & Plan Slight bump in creatinine today likely due to IV Lasix.. Lasix will be discontinued tomorrow. Repeat BMP Diastolic CHF, acute (CMS/HCC) ([facility]) Assessment & Plan Patient developed increased requirement for oxygen yesterday. A chest x-ray ordered on 06/18/2024 resulted today 06/20/2024 showing with demonstration of left bibasilar consolidation. No new abnormality in the chest. CHF secondary to likely pneumonia and COPD exacerbation. Echocardiogram on 06/04/2024 - LVEF 65%. Grade 1 left ventricular diastolic dysfunction. -Left atrium is moderately dilated -Mild tricuspid regurgitation -Pulmonary artery systolic pressure is upper normal. proBNP elevated 2998 IV Lasix 40 mg was started I's and O's Has diuresed 3000 mL Daily weight Down 1 pound Sodium restriction diet Cardiology consult---> continue IV Lasix today and DC Lasix tomorrow. Troponin 14. proBNP improved to 2459 Acute respiratory failure with hypoxia ([facility]) Assessment & Plan Patient does not use home O2. On admission patient was saturating 88% and required 3 to 4 L of O2. She was also tachypneic up to 22 respiration per minute. Today patient was able to be tapered to 2L of O2 Severe asthma with exacerbation Assessment & Plan Hx of Asthma as well Now with asthma/COPD exacerbation Chronic obstructive pulmonary disease with acute exacerbation ([facility]) Assessment & Plan Patient was a former smoker. No formal diagnosis of COPD. Lungs with bilateral wheezes and rhonchi. Continue with scheduled DuoNeb, and Pulmicort. Continue with antitussives. I have ordered a respiratory consult for home nebulizer machine at discharge. Hypothyroidism Assessment & Plan Continue with levothyroxine 112 mcg daily. TSH WNL A-fib (CMS/HCC) (HCC) Assessment & Plan Continue with carb, flecainide and Eliquis. Lumbar canal stenosis Assessment & Plan Patient has an appointment at the end of this week with a spine surgeon. GLOBAL PLAN OF CARE FLUIDS AND NUTRITION FLUIDS: NUTRITION: Diet, Adult Regular, Other (Specify); Sodium Restricted; 2,300 mg Na QUALITY Telemetry: Reason for telemetry monitoring is A. Fib, CHF VTE PROPHYLAXIS Apixaban ADVANCED CARE PLANNING Code Status: Full Code Medical Decision Maker: Patient I have reviewed, updated, and verified this note's content. Signature: Rosanna Marie NP Electronic Signature * Rosanna Marie NP - 06/19/2024 12:43 PM EST PROGRESS NOTE Subjective CHIEF COMPLAINT: Pneumonia, acute respiratory failure with hypoxia, COPD/asthma exacerbation, and CHF 24 HOUR INTERVAL HISTORY: Patient seen and examined at bedside. Her lungs are less wheezy, and no rhonchi heard compared to yesterday. She did receive IV Lasix 40 mg today. She had elevated proBNP. Her echocardiogram on 06/04/2024 showed grade 1 diastolic dysfunction. CHF exacerbation likely due to COPD exacerbation. Patienthas no prior history of CHF therefore will ask cardiology to see patient. She currently saturating 94% on 3 L of O2. Review of Systems: Constitutional: shortness of breath Eyes: Denies vision changes. Respiratory: + shortness of breath. Cardiovascular: Denies chest pain and palpitations Gastrointestinal: Denies abd pain, nausea/vomiting Genitourinary: Denies dysuria and frequency. Musculoskeletal: No new arthralgias and myalgias. Neurological: Denies headaches MEDICATIONS: Scheduled Meds:apixaban, 5 mg, oral, q12h RANDI azithromycin, 500 mg, oral, Daily budesonide nebulizer, 1 mg, inhalation, q12h RANDI busPIRone, 7.5 mg, oral, BID cefTRIAXone, 1 g, intravenous, q24h RANDI dilTIAZem CD, 120 mg, oral, Daily DULoxetine DR, 60 mg, oral, Daily flecainide, 100 mg, oral, 2x daily furosemide, 40 mg, intravenous, Daily guaiFENesin ER, 600 mg, oral, q12h RANDI ipratropium-albuteroL, 3 mL, inhalation, q4h RANDI levothyroxine, 112 mcg, oral, Daily losartan, 50 mg, oral, 2x daily methocarbamoL, 750 mg, oral, 3x daily methylPREDNISolone sodium succinate, 60 mg, intravenous, q6h pregabalin, 150 mg, oral, 2x daily sodium chloride, 2.5-10 mL, intravenous, See admin instructions And sodium chloride, 2.5-10 mL, intravenous, q12h RANDI traZODone, 50 mg, oral, Nightly Continuous Infusions: PRN Meds:.PRN medications: acetaminophen, albuterol, benzonatate, calcium carbonate, codeine-guaiFENesin, diphenhydrAMINE, furosemide, ipratropium- albuteroL, ketorolac, naloxone, naloxone, ondansetron, senna, traMADoL, triamcinolone acetonide Objective VITAL SIGNS FOR PAST 24 Hours ([High] [Low] (Last Recorded Value)): Temp: [36.4 ??C (97.6 ??F)-37.1 ??C (98.8 ??F)] 36.8 ??C (98.2 ??F) Heart Rate: [61-74] 61 Resp: [16-20] 20 BP: (122-149)/(59-88) 146/88 SpO2: [93 %-95 %] 94 % I/Os LAST 24 HOURS: Intake/Output Summary (Last 24 hours) at 06/19/2024 1243 Last data filed at 06/19/2024 1225 Gross per 24 hour Intake 2410 ml Output 850 ml Net 1560 ml GENERAL: No apparent distress. She looks better. EYES / ENT: Pupils equal, round, Conjunctivae non-ictereric; RESPIRATORY: mild wheezes on the left CARDIOVASCULAR: Regular rate rhythm SKIN: No rash and no significant discoloration ABDOMINAL: Normoactive bowel sounds; nontender, no masses, not distended MUSCULOSKELETAL: No clubbing or cyanosis NEUROLOGIC: Alert and not disoriented PSYCH: Normal mood and affect LAB: Lab Results Component Value Date NA 137 06/19/2024 K 5.2 (H) 06/19/2024 CL 106 06/19/2024 CO2 19 (L) 06/19/2024 BUN 41 (H) 06/19/2024 CREATININE 1.12 06/19/2024 GLUCOSE 139 (H) 06/19/2024 Lab Results Component Value Date WBC 13.0 (H) 06/19/2024 HGB 11.2 (L) 06/19/2024 HCT 33.8 (L) 06/19/2024 MCV 87.3 06/19/2024 RDW 13.2 06/19/2024 PLT 238 06/19/2024 Assessment & Plan Principal Problem: Pneumonia due to organism Active Problems: Lumbar canal stenosis A-fib (CMS/HCC) ([facility]) Hypothyroidism Chronic obstructive pulmonary disease with acute exacerbation ([facility]) Severe asthma with exacerbation Acute respiratory failure with hypoxia ([facility]) Diastolic CHF, acute (CMS/HCC) ([facility]) * Pneumonia due to organism Assessment & Plan CT chest shows no evidence of PE. Left bibasilar consolidation along with left lower lobe nodules. This could relate to pneumonia and/or aspiration. Continue with IV Rocephin. Patient has finished Zithromax Blood culture negative to date Urine Legionella and streptococcal pneumoniae pending Will order sputum culture Yesterday patient required 2 L of O2 today and was increased to 3 L-----> will repeat chest x-ray. CT PE on admission does not show any PE. Will check BNP. Diastolic CHF, acute (CMS/HCC) ([facility]) Assessment & Plan Patient developed increased requirement for oxygen yesterday. A chest x-ray was ordered but result is pending at this time. CHF secondary to likely pneumonia and COPD exacerbation. Echocardiogram on 06/04/2024 - LVEF 65%. Grade 1 left ventricular diastolic dysfunction. -Left atrium is moderately dilated -Mild tricuspid regurgitation -Pulmonary artery systolic pressure is upper normal. proBNP elevated 2998 Start IV Lasix 40 mg daily I's and O's Daily weight Sodium restriction diet Cardiology consult Acute respiratory failure with hypoxia ([facility]) Assessment & Plan Patient does not use home O2. On admission patient was saturating 88% and required 3 to 4 L of O2. She was also tachypneic up to 22 respiration per minute. Today patient is using 3 L of O2 and saturating 94%. Severe asthma with exacerbation Assessment & Plan Hx of Asthma as well Now with asthma/COPD exacerbation Chronic obstructive pulmonary disease with acute exacerbation (HCC) Assessment & Plan Patient was a former smoker. No formal diagnosis of COPD. Lungs with bilateral wheezes and rhonchi. Continue with scheduled DuoNeb, and Pulmicort. Patient does not use home O2. Currently saturating 94% on 3L of O2. Continue with antitussives. Hypothyroidism Assessment & Plan Continue with levothyroxine 112 mcg daily. TSH WNL A-fib (CMS/HCC) (HCC) Assessment & Plan Continue with carb, flecainide and Eliquis. Lumbar canal stenosis Assessment & Plan Patient has an appointment at the end of this week with a spine surgeon. Acute pulmonary edema (HCC)-resolved as of 06/19/2024 Assessment & Plan GLOBAL PLAN OF CARE FLUIDS AND NUTRITION FLUIDS: NUTRITION: Diet, Adult Regular, Other (Specify); Sodium Restricted; 2,300 mg Na QUALITY Telemetry: Reason for telemetry monitoring is A. Fib, CHF VTE PROPHYLAXIS Apixaban ADVANCED CARE PLANNING Code Status: Full Code Medical Decision Maker: self I have reviewed, updated, and verified this note's content. Signature: Rosanna Marie NP Electronic Signature * Rosanna Marie NP - 06/18/2024 1:37 PM EST PROGRESS NOTE Subjective CHIEF COMPLAINT: PNA, asthma/COPD exacerbation 24 HOUR INTERVAL HISTORY: Patient seen and examined at bedside. Yesterday patient required 2 L of O2, and today she needed 3 L of O2. Her lungs continue to have wheezes and rhonchi. Will repeat chest x-ray, will also check BNP. Her CT PE on admission does not show any pulmonary embolism. Urine Legionella, and strep pneumoniae pending. Will check sputum culture. Will also give IV magnesium x 1. Review of Systems: Constitutional: Still has left posterior rib pain. Cough is better on codeine. Eyes: Denies vision changes. Respiratory: Cough is better. + SOB Cardiovascular: Denies chest pain and palpitations Gastrointestinal: Denies abd pain, nausea/vomiting Genitourinary: Denies dysuria and frequency. Musculoskeletal: Right posterior rib pain that is not new. Neurological: Denies headaches MEDICATIONS: Scheduled Meds:apixaban, 5 mg, oral, q12h RANDI azithromycin, 500 mg, intravenous, Daily budesonide nebulizer, 1 mg, inhalation, q12h RANDI busPIRone, 7.5 mg, oral, BID cefTRIAXone, 1 g, intravenous, q24h RANDI dilTIAZem CD, 120 mg, oral, Daily DULoxetine DR, 60 mg, oral, Daily flecainide, 100 mg, oral, 2x daily furosemide, 40 mg, intravenous, Once guaiFENesin ER, 600 mg, oral, q12h RANDI ipratropium-albuteroL, 3 mL, inhalation, q4h RANDI levothyroxine, 112 mcg, oral, Daily losartan, 50 mg, oral, 2x daily methocarbamoL, 750 mg, oral, 3x daily methylPREDNISolone sodium succinate, 60 mg, intravenous, q6h pregabalin, 150 mg, oral, 2x daily sodium chloride, 2.5-10 mL, intravenous, See admin instructions And sodium chloride, 2.5-10 mL, intravenous, q12h RANDI traZODone, 50 mg, oral, Nightly Continuous Infusions: PRN Meds:.PRN medications: acetaminophen, albuterol, benzonatate, codeine- guaiFENesin, diphenhydrAMINE, furosemide, ipratropium-albuteroL, ketorolac, naloxone, naloxone, ondansetron, senna, traMADoL,triamcinolone acetonide Objective VITAL SIGNS FOR PAST 24 Hours ([High] [Low] (Last Recorded Value)): Temp: [36.4 ??C (97.6 ??F)-36.9 ??C (98.5 ??F)] 36.9 ??C (98.5 ??F) Heart Rate: [68-71] 70 Resp: [18-20] 18 BP: (101-155)/(61-76) 155/76 SpO2: [92 %-95 %] 92 % I/Os LAST 24 HOURS: Intake/Output Summary (Last 24 hours) at 06/18/2024 1343 Last data filed at 06/18/2024 0000 Gross per 24 hour Intake 780 ml Output -- Net 780 ml GENERAL: No apparent distress. EYES / ENT: Pupils equal, round, Conjunctivae non-ictereric RESPIRATORY: + bilateral wheezes and + rhonchi CARDIOVASCULAR: Regular rate rhythm SKIN: No rash and no significant discoloration ABDOMINAL: Normoactive bowel sounds; nontender, not distended MUSCULOSKELETAL: No clubbing or cyanosis; No pedal edema NEUROLOGIC: Alert and not disoriented; No gross deficits PSYCH: Normal mood and affect LAB: Lab Results Component Value Date NA 139 06/17/2024 K 5.1 06/17/2024 CL 106 06/17/2024 CO2 23 06/17/2024 BUN 27 (H) 06/17/2024 CREATININE 0.99 06/17/2024 GLUCOSE 111 (H) 06/17/2024 Lab Results Component Value Date WBC 11.6 (H) 06/17/2024 HGB 11.7 06/17/2024 HCT 35.4 (L) 06/17/2024 MCV 89.8 06/17/2024 RDW 12.9 06/17/2024 PLT 257 06/17/2024 I have personally reviewed the patient's lab results from the past 24 hours. Assessment & Plan Principal Problem: Pneumonia due to organism Active Problems: Lumbar canal stenosis A-fib (CMS/HCC) ([facility]) Hypothyroidism Chronic obstructive pulmonary disease with acute exacerbation ([facility]) Severe asthma with exacerbation Acute respiratory failure with hypoxia ([facility]) * Pneumonia due to organism Assessment & Plan CT chest shows no evidence of PE. Left bibasilar consolidation along with left lower lobe nodules. This could relate to pneumonia and/or aspiration. Will continue with IV Rocephin and Zithromax. Blood culture negative to date Urine Legionella and streptococcal pneumoniae pending Will order sputum culture Yesterday patient required 2 L of O2 today and was increased to 3 L-----> will repeat chest x-ray. CT PE on admission does not show any PE. Will check BNP. Acute respiratory failure with hypoxia ([facility]) Assessment & Plan Patient does not use home O2. On admission patient was saturating 88% and required 3 to 4 L of O2. She was also tachypneic up to 22 respiration per minute. Today patient is using 3 L of O2 and saturating 92%. Chronic obstructive pulmonary disease with acute exacerbation ([facility]) Assessment & Plan Patient was a former smoker. No formal diagnosis of COPD. Lungs with bilateral wheezes and rhonchi. Continue with scheduled DuoNeb, and Pulmicort. Patient does not use home O2. Currently saturating 97% on 2 L of O2. Will add antitussives. Give IV magnesium x 1. Hypothyroidism Assessment & Plan Continue with levothyroxine 112 mcg daily. TSH WNL A-fib (CMS/HCC) (HCC) Assessment & Plan Continue with carb, flecainide and Eliquis. Lumbar canal stenosis Assessment & Plan Patient has an appointment at the end of this week with a spine surgeon. HLD (hyperlipidemia)-resolved as of 06/18/2024 Assessment & Plan GLOBAL PLAN OF CARE FLUIDS AND NUTRITION FLUIDS: NUTRITION: Diet, Adult Regular VTE PROPHYLAXIS Apixaban ADVANCED CARE PLANNING Code Status: Full Code Medical Decision Maker: I have reviewed, updated, and verified this note's content. Signature: Rosanna Marie NP Electronic Signature * Rosanna Marie NP - 06/17/2024 2:01 PM EST PROGRESS NOTE Subjective CHIEF COMPLAINT: PNA, COPD exacerbation 24 HOUR INTERVAL HISTORY: Patient seen and examined at bedside. Patient continues to require supplemental oxygen. Lung exam revealed wheezes and rhonchi. Will schedule DuoNeb, and increase IV steroid. Will give IV magnesium x1. Patient is a former smoker and has not been diagnosed with COPD formally. Review of Systems: Constitutional: still feels SOB Eyes: Denies vision changes. Respiratory: + shortness of breath. Cardiovascular: Denies chest pain Gastrointestinal: Denies abd pain, nausea/vomiting Genitourinary: Denies dysuria and frequency. Musculoskeletal: No new arthralgias and myalgias. Neurological: Denies headaches MEDICATIONS: Scheduled Meds:apixaban, 5 mg, oral, q12h RANDI azithromycin, 500 mg, intravenous, Daily budesonide nebulizer, 1 mg, inhalation, q12h RANDI busPIRone, 7.5 mg, oral, BID cefTRIAXone, 1 g, intravenous, q24h RANDI dilTIAZem CD, 120 mg, oral, Daily DULoxetine DR, 60 mg, oral, Daily flecainide, 100 mg, oral, 2x daily furosemide, 40 mg, intravenous, Once guaiFENesin ER, 600 mg, oral, q12h RANDI ipratropium-albuteroL, 3 mL, inhalation, q4h RANDI levothyroxine, 112 mcg, oral, Daily losartan, 50 mg, oral, 2x daily methocarbamoL, 750 mg, oral, 3x daily methylPREDNISolone sodium succinate, 60 mg, intravenous, q8h pregabalin, 150 mg, oral, 2x daily sodium chloride, 2.5-10 mL, intravenous, See admin instructions And sodium chloride, 2.5-10 mL, intravenous, q12h RANDI traZODone, 50 mg, oral, Nightly Continuous Infusions: PRN Meds:.PRN medications: acetaminophen, albuterol, benzonatate, codeine- guaiFENesin, furosemide, ipratropium-albuteroL, ketorolac, naloxone, naloxone, ondansetron, senna, traMADoL, triamcinolone acetonide Objective VITAL SIGNS FOR PAST 24 Hours ([High] [Low] (Last Recorded Value)): Temp: [36.5 ??C (97.7 ??F)-37 ??C (98.6 ??F)] 37 ??C (98.6 ??F) Heart Rate: [71-93] 71 Resp: [13-27] 18 BP: (146-163)/(76-83) 159/79 SpO2: [91 %-99 %] 97 % I/Os LAST 24 HOURS: Intake/Output Summary (Last 24 hours) at 06/17/2024 1403 Last data filed at 06/17/2024 0852 Gross per 24 hour Intake 480 ml Output -- Net 480 ml GENERAL: No apparent distress EYES / ENT: Pupils equal, round, Conjunctivae non-ictereric; RESPIRATORY: + wheezes and + rhonchi bilaterally CARDIOVASCULAR: Regular rate and rhythm SKIN: No rash and no significant discoloration ABDOMINAL: Normoactive bowel sounds; nontender, no masses, not distended MUSCULOSKELETAL: No clubbing or cyanosis NEUROLOGIC: Alert and not disoriented PSYCH: Normal mood and affect LAB: Lab Results Component Value Date NA 139 06/17/2024 K 5.1 06/17/2024 CL 106 06/17/2024 CO2 23 06/17/2024 BUN 27 (H) 06/17/2024 CREATININE 0.99 06/17/2024 GLUCOSE 111 (H) 06/17/2024 Lab Results Component Value Date WBC 11.6 (H) 06/17/2024 HGB 11.7 06/17/2024 HCT 35.4 (L) 06/17/2024 MCV 89.8 06/17/2024 RDW 12.9 06/17/2024 PLT 257 06/17/2024 I have personally reviewed the patient's lab results from the past 24 hours. IMAGING /OTHER STUDIES: I have personally reviewed the patient's imaging results. Assessment & Plan Principal Problem: Pneumonia due to organism Active Problems: Lumbar canal stenosis A-fib (CMS/HCC) ([facility]) HLD (hyperlipidemia) Hypothyroidism Chronic obstructive pulmonary disease with acute exacerbation ([facility]) * Pneumonia due to organism Assessment & Plan CT chest shows no evidence of PE. Left bibasilar consolidation along with left lower lobe nodules. This could relate to pneumonia and/or aspiration. Will continue with IV Rocephin and Zithromax. Get blood cultures today. Chronic obstructive pulmonary disease with acute exacerbation ([facility]) Assessment & Plan Patient was a former smoker. No formal diagnosis of COPD. Lungs with bilateral wheezes and rhonchi. Will add scheduled DuoNeb, and Pulmicort. Patient does not use home O2. Currently saturating 97% on 2 L of O2. Will add antitussives. Give IV magnesium x 1. Hypothyroidism Assessment & Plan Continue with levothyroxine 112 mcg daily. HLD (hyperlipidemia) Assessment & Plan A-fib (CMS/[facility]) ([facility]) Assessment & Plan Continue with carb, flecainide and Eliquis. Lumbar canal stenosis Assessment & Plan Patient has an appointment at the end of this week with a spine surgeon. GLOBAL PLAN OF CARE FLUIDS AND NUTRITION FLUIDS: NUTRITION: Diet, Adult Regular VTE PROPHYLAXIS Apixaban ADVANCED CARE PLANNING Code Status: Full Code Medical Decision Maker: self I have reviewed, updated, and verified this note's content. Signature: Rosanna Marie NP Electronic Signature documented in this encounter H&P Notes * Mj Mendenhall MD - 06/16/2024 3:59 AM EST HISTORY AND PHYSICAL Hospitalist Admission History and Physical Exam 06/16/2024 3:59 AM Patient: Genie Vora : 1950 PCP: Bijal Fox NP CHIEF COMPLAINT: Cough HISTORY OF PRESENT ILLNESS: 73-year-old female with a past medical history of HTN, HLD, A-fib, spinal stenosis, arthritis, obesity, anxiety, depression presented to the hospital with a chief complaint of cough. Patient reported that she has been having cough for about 7 days with yellow sputum production. Reports subjective fevers and chills. Denies any significant shortness of breath. Reports she had asthma as a childhood. Denies any to smoking history. Patient denies any GI or symptoms. Review of all other systems is negative except mentioned above ER course: Per ER team, patient on presentation noted to be short of breath, hypoxic, placed on supplemental oxygen, not in respiratory chest; very slightly diminished breath sounds but no significant wheezing;given nebulizations and steroids. Chest x-ray showed findings concerning for pneumonia. CT chest showed no evidence of PE. ED Course: VS in ED Temp: [36.9 ??C (98.4 ??F)] 36.9 ??C (98.4 ??F) Heart Rate: [58-72] 58 Resp: [20-22] 22 BP: (94-143)/(58-82) 128/69 SpO2: [92 %-96 %] 92 % Abnormal Labs Reviewed CBC AUTO DIFFERENTIAL - Abnormal; Notable for the following components: Result Value RBC 3.86 (*) Hemoglobin 11.4 (*) Hematocrit 35.2 (*) All other components within normal limits BASIC METABOLIC PANEL - Abnormal; Notable for the following components: BUN 30 (*) Creatinine 1.25 (*) Glucose 126 (*) eGFR 46 (*) All other components within normal limits BLOOD GAS, VENOUS - Abnormal; Notable for the following components: pH, Venous 7.24 (*) All other components within normal limits ED Course as of 06/16/24 0359 Sat Jun 15, [id number] Temp: 36.9 ??C (98.4 ??F) On nasal cannula O2 [ML] 2142 Basic Metabolic Panel(!) Creatinine within 0.1 of baseline, nondiagnostic for VIVIAN, electrolytes stable [ML] 2143 COVID-19, Flu A/B & RSV RNA PCR, Symptomatic COVID, flu, RSV negative [ML] 2143 N-terminal ProBrain Natriuretic Peptide Opponent and BNP stable [ML] 2143 CBC Auto Differential(!) BC with no leukocytosis. Borderline hemoglobin at 11.4, stable platelet count. [ML] 2143 XR Chest 2 vw. Standard FINDINGS AND IMPRESSION: New left lower lobe airspace disease, could represent pneumonia. Unremarkable cardiomediastinal silhouette, given rotation and technique. No pleural effusion or pneumothorax. [ML] Caitlin Jun 16, [address] Chest PE No evidence of filling defects in the main and proximal segmental pulmonary arteries to suggest pulmonary embolism. Diffuse bronchial wall thickening. Left lower lobe bandlike area of airspace consolidation which may represent atelectasis/scarring or pneumonia. Linear atelectasis/scarring also seen at the right lung base. The heart is normal in size. Atherosclerosis. Small mediastinal lymph nodes. No evidence for pericardial effusion. Status post cholecystectomy. Bilateral renal cortical scarring. Small low-density left renal lesion. Thoracic spondylosis. No evidence for acute fracture. [ML] 0338 Blood gas, venous(!!) Respiratory acidosis noted, pCO2 57, will provide steroid dosing and DuoNeb [ML] ED Course User Index [ML] Kevin Newsome MD Medication administered in ED: Medications lidocaine (LIDODERM) 5% patch 1 patch (1 patch topical Patch Applied 06/15/242251) ipratropium-albuteroL (DUO-NEB) 0.5-2.5 mg/3 mL nebulizer solution 3 mL (has no administration in time range) methylPREDNISolone sodium succinate (SOLU-Medrol) injection 40 mg (has no administration in time range) azithromycin (ZITHROMAX) 500 mg in 0.9% NaCl 250 mL IVPB (has no administration in time range) benzonatate (TESSALON) capsule 100 mg (has no administration in time range) cefTRIAXone (ROCEPHIN) injection 1 g (has no administration in time range) busPIRone (BUSPAR) tablet 7.5 mg (has no administration in time range) apixaban (ELIQUIS) tablet 5 mg (has no administration in time range) flecainide (TAMBOCOR) tablet 100 mg (has no administration in time range) furosemide (LASIX) tablet 20 mg (has no administration in time range) furosemide (LASIX) injection 40 mg (has no administration in time range) sodium chloride 0.9% flush 2.5-10 mL (has no administration in time range) And sodium chloride 0.9% flush 2.5-10 mL (has no administration in time range) acetaminophen (TYLENOL) tablet 650 mg (has no administration in time range) senna (SENOKOT) tablet 17.2 mg (has no administration in time range) ondansetron (ZOFRAN) tablet 4 mg (has no administration in time range) acetaminophen (TYLENOL) tablet 975 mg (975 mg oral Given 06/15/24 7912) iohexoL (OMNIPAQUE) 350 mg iodine/mL contrast 80 mL (80 mL intravenous Given 06/15/24 5369) cefepime (MAXIPIME) 2 g in 0.9% NaCl 100 mL Mini-Bag Plus (0 g intravenous Stopped 06/16/24 0156) azithromycin (ZITHROMAX) 500 mg in 0.9% NaCl 250 mL IVPB (0 mg intravenous Stopped 06/16/24 0346) PAST MEDICAL HISTORY: Past Medical History: Diagnosis Date Arthritis Posterior tibial tendinitis History of Posterior tibial tendinitis 2014-09-02 Radial styloid tenosynovitis History of De Quervain's tenosynovitis 2011-07-29 PAST SURGICAL HISTORY: Past Surgical History: Procedure Laterality Date ND ARTHROCENTESIS ASPIR&/INJ MAJOR JT/BURSA W/O US Right History of Arthrocentesis Injection Of Hip Joint Right hip steroid injection ND ARTHROCENTESIS ASPIR&/INJ MAJOR JT/BURSA W/O US Right History of Arthrocentesis Injection Of Hip Joint Right RIGHT HIP INJECTION WITH STEROID ND ARTHROCENTESIS ASPIR&/INJ MAJOR JT/BURSA W/O US Right History of Arthrocentesis Injection Of Hip Joint Right RIGHT HIP INJECTION ND ARTHROCENTESIS ASPIR&/INJ MAJOR JT/BURSA W/O US Right History of Arthrocentesis Injection Of Hip Joint Right RIGHT HIP CORTISONE INJECTION ND KNEE SCOPE,DIAGNOSTIC N/A History of Arthroscopy Knee ND ALVES W/O FACETEC FORAMOT/[facility] 05/23 VRT SEG, CERVICAL N/A History of Laminectomy Lumbar ND LAP,CHOLECYSTECTOMY N/A History of Cholecystectomy Laparoscopic PROCEDURE - HISTORIC N/A History of Lumbar Injection LUMBAR EPIDURAL STEROID INJECTION PROCEDURE - HISTORIC N/A History of Lumbar Injection LUMBAR EPIDURAL STEROID INJECTION PROCEDURE - HISTORIC N/A History of Lumbar Injection LEFT L4 EPIDURAL STEROID INJECTION HOME MEDICATIONS: Prior to Admission medications Medication Sig Start Date End Date Taking? Authorizing Provider busPIRone (BUSPAR) 7.5 mg tablet Take 7.5 mg by mouth 2 (two) times a day. Unknown Provider, diltiazem XR (DILACOR XR) 120 mg 24 hr capsule Take 120 mg by mouth once a day. Unknown Provider, DULoxetine DR (CYMBALTA) 60 mg capsule Take 60 mg by mouth once a day. Unknown Provider, Eliquis 5 mg tablet Take 1 tablet by mouth 2 times a day. Unknown Provider, flecainide (TAMBOCOR) 100 mg tablet Take 100 mg by mouth 2 times a day. Unknown Provider, furosemide (LASIX) 20 mg tablet Take 20 mg by mouth daily as needed (FLUID OVERRLOAD/SWELLING IN LEGS). 02/17/24 Unknown Provider, levothyroxine (SYNTHROID, LEVOTHROID) 112 mcg tablet Take 1 tablet (112 mcg total) by mouth daily. 06/04/24 07/04/24 Katelyn Chavira, MEY lisdexamfetamine (VYVANSE) 20 mg capsule Take 20 mg by mouth every morning. Unknown Provider, losartan (COZAAR) 50 mg tablet Take 50 mg by mouth 2 times a day. Unknown Provider, methocarbamoL (ROBAXIN) 750 mg tablet Take 750 mg by mouth 3 times a day. Unknown Provider, pregabalin (LYRICA) 150 mg capsule Take 150 mg by mouth 2 times a day. Unknown Provider, traZODone (DESYREL) 50 mg tablet Take 50 mg by mouth nightly. -- 1-2 TABS EVERY NIGHT, STARTS WITH 50 MG AND TAKES A SECOND TABLET IF NOT SLEEPING Unknown Provider, triamcinolone acetonide (KENALOG) 0.1% cream Apply 1 application. topically to the affected area asneeded for irritation or rash. Unknown Provider, ALLERGIES: Neosporin (kum-pzvbp-oyjhlseh) [dnegjecy-hfkqybtfb-pkwbqzuhng], Prevacid [lansoprazole], and Adavyuk-rwl-bpj reductase inhibitors SOCIAL HISTORY: Social History Tobacco Use Smoking status: Former Smokeless tobacco: Never Tobacco comments: : Vaping Use Vaping status: Never Used Substance and Sexual Activity Alcohol use: Not Currently Drug use: Never FAMILY HISTORY: Family History Problem Relation Age of Onset [...] Sister Family history of Coagulation disorder, transient PHYSICAL EXAMINATION: Temp: [36.9 ??C (98.4 ??F)] 36.9 ??C (98.4 ??F) Heart Rate: [58-72] 58 Resp: [20-22] 22 BP: (94-143)/(58-82) 128/69 SpO2: [92 %-96 %] 92 % @O2SAT@ Gen: NAD, Appear stated age, Head: AT/NC Eyes: PERRL, EOMI, not pale, anicteric Cardio.: normal s1,s2 Resp.: Slightly diminished breath sounds; occasional wheezing present gastro. :NT/ND, soft, + BS, no CVA tenderness. Extremity: Warm and well perfused Neuro: Mental Status: Alert and awake Grossly Non Focal LAB: I have personally reviewed the patient's lab results from the past 24 hours Recent Results (from the past 24 hours) COVID-19, Flu A/B & RSV RNA PCR, Symptomatic Collection Time: 06/15/24 7:58 PM Specimen: Nasopharyngeal; Swab Result Value Ref Range PCR, SARS CoV-2 RNA Not Detected Not Detected Flu A RNA PCR Not Detected Not Detected Flu B RNA PCR Not Detected Not Detected RSV RNA PCR Not Detected Not Detected CBC Auto Differential Collection Time: 06/15/24 8:00 PM Specimen: Venous, Peripheral; Blood Result Value Ref Range WBC 4.9 4.8 - 10.8 10*3/uL RBC 3.86 (L) 4.20 - 5.40 10*6/uL Hemoglobin 11.4 (L) 11.7 - 15.5 g/dL Hematocrit 35.2 (L) 35.7 - 45.8 % MCV 91.2 81.0 - 99.0 fL MCH 29.5 26.0 - 34.0 pg MCHC 32.4 31.0 - 36.0 g/dL RDW 12.9 12.0 - 15.0 % RDW Standard Deviation 43.3 36.4 - 46.3 fL Platelets 190 140 - 440 10*3/uL MPV 10.0 9.4 - 12.3 fL Neutrophil % 53.9 50.0 - 75.0 % Immature Grans % 0.4 0.0 - 0.9 % Lymphocyte % 32.0 20.0 - 44.0 % Monocyte % 10.0 0.0 - 14.0 % Eosinophil % 3.3 0.0 - 5.0 % Basophil % 0.4 0.0 - 2.0 % Neutrophil # 2.63 1.80 - 7.70 10*3/uL Immature Grans # <0.03 0.00 - 0.03 10*3/uL Lymphocyte # 1.60 1.00 - 4.75 10*3/uL Monocyte # 0.50 0.00 - 0.60 10*3/uL Eosinophil # 0.20 0.00 - 0.80 10*3/uL Basophil # <0.03 0.00 - 0.20 10*3/uL nRBC % 0.0 0 - 0 /100 WBCs nRBC # <0.01 0.00 - 0.13 10*3/uL Basic Metabolic Panel Collection Time: 06/15/24 8:00 PM Specimen: Venous, Peripheral; Blood Result Value Ref Range NA 142 136 - 145 mmol/L K 4.6 3.5 - 5.1 mmol/L Cl 109 98 - 109 mmol/L CO2 23 22 - 32 mmol/L BUN 30 (H) 8 - 23 mg/dL Creatinine 1.25 (H) 0.50 - 1.12 mg/dL Glucose 126 (H) 60 - 99 mg/dL Calcium 8.9 8.4 - 10.4 mg/dL Anion Gap 15 >=0 eGFR 46 (L) >=60 mL/min/1.73m2 N-terminal ProBrain Natriuretic Peptide Collection Time: 06/15/24 8:00 PM Specimen: Venous, Peripheral; Blood Result Value Ref Range Pro-B-Type Natriuretic Peptide 295 <=900 pg/mL Troponin T, High Sensitivity X2 (now + 2hrs) Collection Time: 06/15/24 8:00 PM Specimen: Venous, Peripheral; Blood Result Value Ref Range Troponin T High Sensitivity 14 6 - 14 ng/L Troponin T, High Sensitivity X2 (now + 2hrs) Collection Time: 06/15/24 10:17 PM Specimen: Venous, Peripheral; Blood Result Value Ref Range Troponin T High Sensitivity 12 6 - 14 ng/L Lactic Acid, Plasma Collection Time: 06/15/24 10:17 PM Specimen: Venous, Peripheral; Blood Result Value Ref Range Lactic Acid 0.7 0.5 - 2.2 mmol/L Blood gas, venous Collection Time: 06/15/24 10:17 PM Specimen: Venous, Peripheral; Blood Result Value Ref Range pH, Venous 7.24 (LL) 7.35 - 7.45 pCO2, Venous 57.0 mm[Hg] pO2, Keegan 138.0 mm[Hg] HCO3, Venous 22 mmol/L O2 Sat, Venous 97.8 % Base Excess, Keegan -3.6 mmol/L MICRO: Microbiology Results (last 21 days) Procedure Component Value - Date/Time Respiratory Culture w/Gram Stain [[id number]] Lab Status: No result Specimen: Expectorated Sputum Blood Culture [[id number]] Collected: 06/15/242216 Lab Status: In process Specimen: Blood from Venous, Peripheral Updated: 06/15/242238 Blood Culture [[id number]] Collected: 06/15/242216 Lab Status: In process Specimen: Blood from Venous, Peripheral Updated: 06/15/242238 IMAGING /OTHER STUDIES: EKG: Nonischemic. XR Chest 2 vw. Standard Result Date: 06/15/2024 New left lower lobe airspace disease, could represent pneumonia. Unremarkable cardiomediastinal silhouette, given rotation and technique. No pleural effusion or pneumothorax. If this radiology report contains a blank impression section, it is an incomplete radiology report. Please contact the interpreting radiologist or applicable radiology division as soon as possible to obtain the completed interpretation. Workstation ID: [id number] Assessment & Plan 73-year-old female with a past medical history of HTN, HLD, A-fib, spinal stenosis, arthritis, obesity, anxiety, depression presented to the hospital with a chief complaint of cough. Assessment & Plan Pneumonia due to organism CT chest shows no evidence of PE Empirically covered with ceftriaxone and azithromycin Follow-up cultures Supplemental oxygen as needed Trending pulse oximetry when ready for discharge DuoNebs as needed Hypertension: Blood pressure on normal side. Held home diltiazem Anxiety/depression: Continue home duloxetine, Wellbutrin DVT Prophylaxis: Current Facility-Administered Medications Medication apixaban Delirium Prevention: Ambulation: As tolerated, Fall precautions, Sleep Hygeine:Calm Environment, Melatonin, Hydration: Oral Hydration, and Medications: Avoid Benzodizepines when possible. Med Reconciliation Status: Medication Reconciliation Status: INCOMPLETE: Medication reconciliation is incomplete due to lack of reliable sources. Further review recommended. Diet: No diet orders on file Code Status: Full code confirmed. Level of Care: Inpatient. Decision-making capacity: Patient Is capable to make own medical decision . Decision-making capacity: Surrogate Decision Maker activated-- NO I admitted the patient to inpatient status. I expect that the patient will require care that spans two midnights due to severe to the presentation and multiple comorbidities I have participated in the patient care from the time of admission until 7 AM on the night of admission. Further management including, but not limited to consults, following up of test results, discharge planning, outpatient referrals will be determined and addressed by the hospitalist who will assume care of 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 Please Note: Portions of this record may have been created with voice recognition software. Wrong word or 'sounded like' substitutions may have occurred due to the inherent limitations of the software. If words or phrases appear to be out of context and the meaning of a phrase or sentence is unclear, please contact the author for clarification. Mj Mendenhall MD 3:59 AM 06/16/2024 Electronic Signature documented in this encounter Consult Notes * Stephanie Hampton MD - 06/20/2024 8:44 AM EST Images from the original note were not included. Consults CARDIOLOGY INPATIENT CONSULT Genie Vora 1950 [id number] 06/20/24 REASON FOR CONSULT: Acute HFpEF History of Present Illness Genie is a very pleasant 73-year-old woman admitted June 15 complaining of shortness of breathproductive sputum diagnosed with left lower lobe pneumonia CT without pulmonary embolism. Echocardiogram June 04, 2024 EF 65% left atrial enlargement PA pressure 37 grade 1 diastolic dysfunction. Admission EKG sinus rhythm first-degree AV block and admission chest x-ray left lower lobe airspace disease could represent pneumonia. Patient noted 7 pound weight gain new lower extremity edema evaluated by hospitalist yesterday increased oxygen requirement day prior chest x-ray pending heart failure likely secondary to pneumonia and COPD started IV Lasix 40 daily BNP 2998. Patient is down 1 pound total hospitalization net +3 L edema has improved and shortness of breath back to baseline but continued shortness of breath walking to the bathroom sleeps on a wedge due to back pain no recent change no orthopnea chest pain. Occasional palpitation reviewed telemetry no arrhythmia occasional PVC. Medical History Past Medical History: Diagnosis Date Arthritis Posterior tibial tendinitis History of Posterior tibial tendinitis 2014-09-02 Radial styloid tenosynovitis History of De Quervain's tenosynovitis 2011-07-29 Social History Social History Socioeconomic History Marital [...] Brother Other Family History of depression Allergies Neosporin (Tbz-Dwrdo-Uudameax) [Sdkfhish-Byfgoaamv-Vhlddqyitf] Prevacid [Lansoprazole] Idodmot-Dzo-Qiz Reductase Inhibitors Medications Current Medications (Taking) as of 06/15/2024 busPIRone (BUSPAR) 7.5 mg tablet Take 7.5 mg by mouth 2 (two) times a day. diltiazem XR (DILACOR XR) 120 mg 24 hr capsule Take 120 mg by mouth once a day. DULoxetine DR (CYMBALTA) 60 mg capsule Take 60 mg by mouth once a day. Eliquis 5 mg tablet Take 1 tablet by mouth 2 times a day. flecainide (TAMBOCOR) 100 mg tablet Take 100 mg by mouth 2 times a day. furosemide (LASIX) 20 mg tablet Take 20 mg by mouth daily as needed (FLUID OVERRLOAD/SWELLING IN LEGS). levothyroxine (SYNTHROID, LEVOTHROID) 112 mcg tablet Take 1 tablet (112 mcg total) by mouth daily. lisdexamfetamine (VYVANSE) 20 mg capsule Take 20 mg by mouth every morning. losartan (COZAAR) 50 mg tablet Take 50 mg by mouth 2 times a day. methocarbamoL (ROBAXIN) 750 mg tablet Take 750 mg by mouth 3 times a day. pregabalin (LYRICA) 150 mg capsule Take 150 mg by mouth 2 times a day. traZODone (DESYREL) 50 mg tablet Take 50 mg by mouth nightly. -- 1-2 TABS EVERY NIGHT, STARTS WITH 50 MG AND TAKES A SECOND TABLET IF NOT SLEEPING triamcinolone acetonide (KENALOG) 0.1% cream Apply 1 application. topically to the affected area asneeded for irritation or rash. Physical Exam Vital Sign (6hrs) for the past 6 hrs: BP Temp Temp src Pulse Resp SpO2 Weight 06/20/24 0700 128/62 36.8 ??C (98.2 ??F) Oral 81 18 95 % -- 06/20/24 0600 -- -- -- -- -- -- 120.7 kg (266 lb) 06/20/24 0300 (!) 152/69 36.5 ??C (97.7 ??F) Oral 78 18 98 % -- Physical Exam Vitals reviewed. Constitutional: Appearance: Normal appearance. Neck: Vascular: No carotid bruit or JVD. Cardiovascular: Rate and Rhythm: Normal rate and regular rhythm. Pulses: Normal pulses. Heart sounds: Normal heart sounds, S1 normal and S2 normal. No murmur heard. No friction rub. No gallop. Pulmonary: Effort: Pulmonary effort is normal. Breath sounds: Normal breath sounds. Abdominal: General: Bowel sounds are normal. Palpations: Abdomen is soft. Musculoskeletal: General: No swelling. Right lower leg: No edema. Left lower leg: No edema. Skin: General: Skin is warm and dry. Neurological: Mental Status: She is alert and oriented to person, place, and time. Psychiatric: Mood and Affect: Mood normal. EKG: Normal sinus rhythm first-degree block LABS Latest Ref Rng & Units 06/19/2024 6:15 AM CBC WBC 4.8 - 10.8 10*3/uL 13.0 Hgb 11.7 - 15.5 g/dL 11.2 Hct 35.7 - 45.8 % 33.8 MCV 81.0 - 99.0 fL 87.3 Plts 140 - 440 10*3/uL 238 Latest Ref Rng & Units 06/19/2024 6:15 AM Basic Metabolic Panel Sodium 136 - 145 mmol/L 137 Potassium 3.5 - 5.1 mmol/L 5.2 Chloride 98 - 109 mmol/L 106 Carbon Dioxide 22 - 32 mmol/L 19 Glucose 60 - 99 mg/dL 139 Creatinine 0.50 - 1.12 mg/dL 1.12 Calcium 8.4 - 10.4 mg/dL 9.1 EGFR >=60 mL/min/1.73m2 52 Lab Results Component Value Date DDIMER 0.54 (HH) 06/03/2024 Lab Results Component Value Date TPNTHS 12 06/15/2024 TPNTHS 14 06/15/2024 No results found for: PROBNPNTE Testing I/O last 24 hours: In: 2930 [P.O.:2920; I.V.:10] Out: 3225 [Urine:3225] Results for orders placed during the hospital encounter of 06/15/24 XR Chest 2 vw. Standard Narrative COMPARISON: Chest x-ray 06/03/2024 FINDINGS AND Impression New left lower lobe airspace disease, could represent pneumonia. Unremarkable cardiomediastinal silhouette, given rotation and technique. No pleural effusion or pneumothorax. If this radiology report contains a blank impression section, it is an incomplete radiology report.Please contact the interpreting radiologist or applicable radiology division as soon as possible toobtain the completed interpretation. Workstation ID: [id number] Prior Echo Procedures Transthoracic echo (TTE) Exam End: 06/04/2024 9:40 AM (Final result) Narrative: Left Ventricle: Normal left ventricular systolic function. Left ventricular ejection fraction is in the normal range with visually estimated LVEF 65%. Left Atrium: Left atrium is moderately dilated. Tricuspid Valve: Mild tricuspid regurgitation. Pulmonary Arteries: Pulmonary artery systolic pressure is upper normal. Estimated pulmonary artery pressure is 37 mmHg. Impression: Genie is a very pleasant 73-year-old woman admitted with left lower lobe pneumonia with weight gain and edema increased oxygen requirement recent echocardiogram normal LV function wall motion normal valves mildly elevated PA systolic pressure with grade 1 diastolic dysfunction. She has been treated with IV diuresis continues to be net +3000 cc since admission unclear I's and O's and down 1 pound resolution of her edema. Back to her baseline shortness of breath with pneumonia. Denies chest pain. Recommendations: 1. HFpEF: Acute congestive heart failure with pneumonia elevated BNP chest x-ray pending. Fluid status improving continue Lasix today then discontinue. EKG and troponin today. 2. A flutter/atrial fibrillation: History of a flutter ablation paroxysmal atrial fibrillation on Eliquis 5 twice daily flecainide 100 twice daily. Reviewed telemetry with no arrhythmia. Cardizem CD 120 daily. 3. Essential hypertension: Losartan 50 mg twice daily Cardizem CD 120 daily blood pressure 128/62 heart rate 81 this morning. Chest x-ray pending. Agree with IV diuresis today can discontinue for tomorrow. EKG today repeat BNP and troponin. Thank you for the opportunity to participate in your patients care. If you have any questions please do not hesitate to call. Stephanie Hampton MD This note was generated utilizing speech recognition. Please excuse grammatical errors. * Pipo Crystal MD - 06/17/2024 1:32 PM EST CONSULT NOTE HPI: HPI the patient with a history of bronchial asthma from age 7 to 15 and since then she has been asymptomatic, history of smoking started a pack a year intermittently until 10 years ago, atrial fibrillation and status post ablation. The patient suffers from severe spinal stenosis and had Rivera shlomo surgery. There is history of sleep apnea, controlled with the CPAP. The patient was recently seen in the hospital for the weakness in the lower extremities and she wasfound to be hypoxic at that time. She was sent to the rehab facility where she had episodes of coughing, wheezing, chest tightness and shortness of breath. She was discharged home on supplemental oxygen. She presented again with 1 day of coughing and producing yellow phlegm. No hemoptysis. She had sweats and low-grade fever. Developed left lower chest discomfort. She presented to the emergency room and was diagnosed with left lower lobe pneumonia. The patient been treated with steroids and there is some improvement in the weakness of the lower extremities. The oxygenation also improved. BP (!) 159/79 (BP Location: Right arm, Patient Position: Lying) Pulse 71 Temp 37 ??C (98.6 ??F)(Oral) Resp 18 Ht 1.676 m (5' 6 ) Wt 53.8 kg (118 lb 11.2 oz) SpO2 97% BMI 19.16 kg/m?? Physical Exam the patient is in no apparent distress alert and oriented maintaining adequate oxygenation. Throat: No oral thrush. No erythema or exudates. Neck: Supple, no JVD or bruits. Lungs: Fair air movement with diffuse inspiratory and expiratory wheezing. There are scattered leftbasilar rhonchi. Heart regular S1 and S2, no murmurs or gallops. Abdomen: No organomegaly. Extremities: No clubbing, cyanosis or edema. Review of Systems constitutional: Fever, chills and sweats. ENT: No sore throat or dysphagia. Respiratory: Coughing, wheezing, hypoxia and shortness of breath. Circulatory: No chest pain or palpitations. Genitourinary no hematuria or dysuria. Gastrointestinal: No constipation or diarrhea. Musculoskeletal: Severe spinal stenosis. Past Medical: Family History Relation Problem Comments Mother Other Family History of eczema Father Other Family History of depression Sister Other Family History of depression Sister Other Family history of Coagulation disorder, transient Brother Other Family History of alcoholism Brother Other Family History of depression Past Medical History: Diagnosis Date Arthritis Posterior tibial tendinitis History of Posterior tibial tendinitis 2014-09-02 Radial styloid tenosynovitis History of De Quervain's tenosynovitis 2011-07-29 Social History Tobacco Use Smoking Status Former Smokeless Tobacco Never Tobacco Comments : Social History Substance and Sexual Activity Alcohol Use Not Currently Social History Substance and Sexual Activity Drug Use Never Current Facility-Administered Medications: acetaminophen (TYLENOL) tablet 650 mg, 650 mg, oral, q4h PRN, Mj Mendenhall MD, 650 mg at 06/16/24 1728 albuterol 2.5 mg/3 mL (0.083%) nebulizer solution 2.5 mg, 2.5 mg, inhalation, q4h PRN, Tia Oh, [employer] WORK[employer] apixaban (ELIQUIS) tablet 5 mg, 5 mg, oral, q12h RANDI, Mj Mendenhall MD, 5 mg at 06/17/24 08 azithromycin (ZITHROMAX) 500 mg in 0.9% NaCl 250 mL IVPB, 500 mg, intravenous, Daily, Mj Mendenhall MD, Last Rate: 250 mL/hr at 06/17/24 0516, 500 mg at 06/17/24 0516 benzonatate (TESSALON) capsule 100 mg, 100 mg, oral, 3x daily PRN, Mj Mendenhall MD, 100 mg at 06/17/24 0521 budesonide (PULMICORT) 1 mg/2 mL nebulizer solution 1 mg, 1 mg, inhalation, q12h RANDI, Tia Oh, [employer] WORK[employer], 1mg at 06/17/24 0945 busPIRone (BUSPAR) tablet 7.5 mg, 7.5 mg, oral, BID, Mj Mendenhall MD, 7.5 mg at 06/17/24 08 cefTRIAXone (ROCEPHIN) injection 1 g, 1 g, intravenous, q24h RANDI, Mj Mendenhall MD, 1 g at 06/17/24851 codeine-guaiFENesin (CHERATUSSIN AC) 20-200 mg/10 mL liquid 10 mg of codeine, 5 mL, oral, q4h PRN, Tia Oh, [employer] WORK[employer], 10 mg of codeine at 06/17/24 1145 dilTIAZem CD (CARDIZEM CD) capsule 120 mg, 120 mg, oral, Daily, Janusz Partida NP, 120 mg at 06/17/[address] (CYMBALTA) capsule 60 mg, 60 mg, oral, Daily, Janusz Partida NP, 60 mg at 06/17/2451 flecainide (TAMBOCOR) tablet 100 mg, 100 mg, oral, 2x daily, Mj Mendenhall MD, 100 mg at 06/17/24 0851 furosemide (LASIX) injection 40 mg, 40 mg, intravenous, Once, Mj Mendenhall MD furosemide (LASIX) tablet 20 mg, 20 mg, oral, Daily PRN, Mj Mendenhall MD guaiFENesin ER (MUCINEX) tablet 600 mg, 600 mg, oral, q12h RANDI, Tia Oh, [employer] WORK[employer], 600 mg at 06/17/24 0945 ipratropium-albuteroL (DUO-NEB) 0.5-2.5 mg/3 mL nebulizer solution 3 mL, 3 mL, inhalation, q4h PRN,Romaine Manuel MD, 3 mL at 06/17/24 0918 ipratropium-albuteroL (DUO-NEB) 0.5-2.5 mg/3 mL nebulizer solution 3 mL, 3 mL, inhalation, q4h RANDI,Rosanna Marie, [employer] WORK[employer], 3 mL at 06/17/24 1302 levothyroxine (SYNTHROID, LEVOTHROID) tablet 112 mcg, 112 mcg, oral, Daily, Janusz Partida NP, 112 mcg at 06/17/24 0513 magnesium sulfate 2 g in SWFI 50 mL IVPB premix, 2 g, intravenous, Once, Rosanna Marie NP, Last Rate: 25 mL/hr at 06/17/24 1137, 2 g at 06/17/24 1137 methocarbamoL (ROBAXIN) tablet 750 mg, 750 mg, oral, 3x daily, Janusz Partida NP, 750 mg at 301 methylPREDNISolone sodium succinate (SOLU-Medrol) injection 60 mg, 60 mg, intravenous, q8h, Rosanna Marie,MEY, 60 mg at 06/17/24 1135 naloxone (NARCAN) injection 0.04 mg, 0.04 mg, intravenous, q3min PRN, Janusz Partida NP naloxone (NARCAN) injection 0.4 mg, 0.4 mg, intravenous, q2h PRN, Janusz Partida NP ondansetron (ZOFRAN) tablet 4 mg, 4 mg, oral, q8h PRN, Mj Mendenhall MD pregabalin (LYRICA) capsule 150 mg, 150 mg, oral, 2x daily, Janusz Partida NP, 150 mg at 06/17/24 0851 senna (SENOKOT) tablet 17.2 mg, 17.2 mg, oral, Nightly PRN, Mj Mendenhall MD IV Peripheral Line Care, , , Until discontinued AND sodium chloride 0.9% flush 2.5-10 mL, 2.5-10 mL, intravenous, See admin instructions AND sodium chloride 0.9% flush 2.5-10 mL, 2.5-10 mL, intravenous, q12h RANDI, Mj Mendenhall MD, 10 mL at 06/17/24 0851 traMADoL (ULTRAM) tablet 50 mg, 50 mg, oral, q8h PRN, Janusz Partida NP, 50 mg at 06/17/24 0917 traZODone (DESYREL) tablet 50 mg, 50 mg, oral, Nightly, Janusz Partida NP, 50 mg at 06/16/242051 TOBACCO no IMAGING chest x-rays 06/15/2024:New left lower lobe airspace disease, could represent pneumonia. Unremarkable cardiomediastinal silhouette, given rotation and technique. No pleural effusion or pneumothorax. CT scan of the chest 06/15/2024:Lungs and Airways: There is a left basilar consolidation along with left lower lobe nodules. Right basilar atelectasis. Bilateral mucus plugging. Pleura: There is no pleural effusion or pneumothorax. Echocardiogram 06/04/2024:Left Ventricle: Normal left ventricular systolic function. Left ventricular ejection fraction is in the normal range with visually estimated LVEF 65%. Left Atrium: Left atrium is moderately dilated. Tricuspid Valve: Mild tricuspid regurgitation. Pulmonary Arteries: Pulmonary artery systolic pressure is upper normal. Estimated pulmonary artery pressure is 37 mmHg. LABS Recent Results (from the past week) -COVID-19, Flu A/B & RSV RNA PCR, Symptomatic: Specimen: Nasopharyngeal; Swab; PCR, SARS CoV-2 RNA Not Detected; Flu A RNA PCR Not Detected; Flu B RNA PCR Not Detected; RSV RNA PCR Not Detected -CBC Auto Differential: Specimen: Venous, Peripheral; Blood; WBC 4.9 10*3/uL; RBC 3.86 10*6/uL (L);Hemoglobin 11.4 g/dL (L); Hematocrit 35.2 % (L); MCV 91.2 fL; MCH 29.5 pg; MCHC 32.4 g/dL; RDW 12.9%; RDW Standard Deviation 43.3 fL; Platelets 190 10*3/uL; MPV 10.0 fL; Neutrophil % 53.9 %; Immature Grans % 0.4 %; Lymphocyte % 32.0 %; Monocyte % 10.0 %; Eosinophil % 3.3 %; Basophil % 0.4 %; Neutrophil # 2.63 10*3/uL; Immature Grans # <0.03 10*3/uL; Lymphocyte # 1.60 10*3/uL; Monocyte # 0.50 10*3/uL; Eosinophil # 0.20 10*3/uL; Basophil # <0.03 10*3/uL; nRBC % 0.0 /100 WBCs; nRBC # <0.01 10*3/uL -Basic Metabolic Panel: Specimen: Venous, Peripheral; Blood; NA 142 mmol/L; K 4.6 mmol/L; Cl 109 mmol/L; CO2 23 mmol/L; BUN 30 mg/dL (H); Creatinine 1.25 mg/dL (H); Glucose 126 mg/dL (H); Calcium 8.9mg/dL; Anion Gap 15; eGFR 46 mL/min/1.73m2 (L) -N-terminal ProBrain Natriuretic Peptide: Specimen: Venous, Peripheral; Blood; Pro-B-Type Natriuretic Peptide 295 pg/mL -Troponin T, High Sensitivity X2 (now + 2hrs): Specimen: Venous, Peripheral; Blood; Troponin T HighSensitivity 14 ng/L -Troponin T, High Sensitivity X2 (now + 2hrs): Specimen: Venous, Peripheral; Blood; Troponin T HighSensitivity 12 ng/L -Blood Culture: Specimen: Venous, Peripheral; Blood; Blood Culture No growth after 24 hours -Blood Culture: Specimen: Venous, Peripheral; Blood; Blood Culture No growth after 24 hours -Lactic Acid, Plasma: Specimen: Venous, Peripheral; Blood; Lactic Acid 0.7 mmol/L -Blood gas, venous: Specimen: Venous, Peripheral; Blood; pH, Venous 7.24 (LL); pCO2, Venous 57.0 mm[Hg]; pO2, Keegan 138.0 mm[Hg]; HCO3, Venous 22 mmol/L; O2 Sat, Venous 97.8 %; Base Excess, Keegan -3.6 mmol/L -Light Green Top: Specimen: Venous, Peripheral; Blood; Extra Tube Hold for add-ons. -Lavender Top: Specimen: Venous, Peripheral; Blood; Extra Tube Hold for add-ons. -Comprehensive Metabolic Panel: Specimen: Venous, Peripheral; Blood; NA 139 mmol/L; K 5.1 mmol/L; Cl 106 mmol/L; CO2 23 mmol/L; Anion Gap 15; Glucose 111 mg/dL (H); Creatinine 0.99 mg/dL; Calcium 9.4mg/dL; Total Protein 6.8 g/dL; Albumin 4.0 g/dL; Bilirubin, Total 0.1 mg/dL (L); Alkaline Phosphatase 109 U/L; AST 23 U/L; ALT 26 U/L; BUN 27 mg/dL (H); eGFR 61 mL/min/1.73m2; Globulin, Total 2.8 g/dL; A/G Ratio 1.4 (L) -CBC Auto Differential: Specimen: Venous, Peripheral; Blood; WBC 11.6 10*3/uL (H); RBC 3.94 10*6/uL(L); Hemoglobin 11.7 g/dL; Hematocrit 35.4 % (L); MCV 89.8 fL; MCH 29.7 pg; MCHC 33.1 g/dL; RDW 12.9 %; RDW Standard Deviation 42.6 fL; Platelets 257 10*3/uL; MPV 10.0 fL; Neutrophil % 81.6 % (H); Immature Grans % 0.8 %; Lymphocyte % 11.8 % (L); Monocyte % 5.6 %; Eosinophil % 0.0 %; Basophil % 0.2 %; Neutrophil # 9.48 10*3/uL (H); Immature Grans # 0.09 10*3/uL (H); Lymphocyte # 1.40 10*3/uL; Monocyte # 0.70 10*3/uL (H); Eosinophil # <0.03 10*3/uL; Basophil # <0.03 10*3/uL; nRBC % 0.0 /100WBCs; nRBC # <0.01 10*3/uL Assessment: Left lower lobe pneumonia Exacerbation of bronchial asthma Exacerbation of COPD Obstructive sleep apnea Mild pulmonary hypertension Status post atrial fibrillation Obesity hypoventilation syndrome Plan: Today's findings were discussed with the patient. Continue with antibiotics for community-acquired pneumonia. Repeat CT scan of the chest in 3-4 months. The exacerbation of asthma/COPD secondary to pneumonia. Continue with nebulized albuterol and the patient should be placed on a combination of inhaled steroid, long-acting anticholinergic inhaler andlong-acting beta agonist (Trelegy or Breztri) Taper off systemic steroids in the next 2 weeks. She also benefit from them to decrease swelling inthe lumbar spine discs PFTs when condition stabilized. Annual CT scans of the chest. Continue with CPAP supplemental oxygen, the goal is to maintain oxygen saturation above 90%. SIGNATURE: Pipo Crystal MD documented in this encounter Nursing Notes * Lilly Shipman RN - 06/20/2024 6:38 PM EST Patient is alert, oriented, and able to make needs known. She is currently on 1 liter of oxygen, titrated down from 3 liters this morning. Patient continues on scheduled nebs with good effect. She abelardo tele running sinus rhythm, VSS, no respiratory distress noted. documented in this encounter Miscellaneous Notes * Plan of Care - Humera Oropeza RN - 06/26/2024 3:54 PM EST Case Management Discharge note: Pertinent Clinical and medical clearance : Patient reviewed at MDR rounds, medically stable for discharge home. JENNIFER WELLS met with patient at bedside she reports that son will provide transport home. Patient inquired on borrowing a wheelchair. [facility]. Patient verbalized understanding and reports son will bring in her rollator so she can sit and rest with ambulation if needed. Final Discharge Plan: Home with [facility] SN PT * Plan of Care - Mariajose Calvillo RN - 06/26/2024 3:51 PM EST This Chronic Disease Nurse Latex Thread Machine Operator reviewed this patient's EMR. She is being discharged home with [facility] today. This typewriter aligner called the PCP office, they are closed today, this typewriter aligner left a M asking them to call the patient directly to schedule a post-hospital f/up appointment. This typewriter aligner scheduled a TCM for 07/03/24 at 2:30pm with Cardiology in [place]. This typewriter aligner added both to the AVS and also added a note to ask the PCP to place a referral to Pulmonology once seen. A secure chat wassent to the nurses asking them to review the above with the patient at discharge. 1602 This typewriter aligner placed a message into [facility] to [facility] asking their nurses to continue to provide both CHF and COPD education with this patient after DC. Both diagnoses are new to 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 * Plan of Care - Jose Elena - 06/26/2024 12:20 PM EST Discharge IM : Important Message from Medicare, [facility]-[id number] (08/02/19) OMB Approval No.: [phone] [phone] (Expires 05/21/25) was provided to the patient with verbal explanation. Signed copy left in Epic Scan bin to be added to the EMR. * Plan of Care - Rosemary Hinton RN - 06/26/2024 6:15 AM EST Problem: Fall Injury Risk Goal: Absence of Fall and Fall-Related Injury Outcome: Ongoing (interventions implemented as appropriate) Problem: Adult Inpatient Plan of Care Goal: Plan of Care Review Outcome: Ongoing (interventions implemented as appropriate) Goal: Patient-Specific Goal (Individualized) Outcome: Ongoing (interventions implemented as appropriate) Goal: Absence of Hospital-Acquired Illness or Injury Outcome: Ongoing (interventions implemented as appropriate) Goal: Optimal Comfort and Wellbeing Outcome: Ongoing (interventions implemented as appropriate) Goal: Readiness for Transition of Care Outcome: Ongoing (interventions implemented as appropriate) Problem: Hospitalized Older Adult Goal: Optimal Cognitive Function Outcome: Ongoing (interventions implemented as appropriate) Goal: Effective Bowel Elimination Outcome: Ongoing (interventions implemented as appropriate) Goal: Optimal Coping Outcome: Ongoing (interventions implemented as appropriate) Goal: Fluid and Electrolyte Balance Outcome: Ongoing (interventions implemented as appropriate) Goal: Optimal Functional Ability Outcome: Ongoing (interventions implemented as appropriate) Goal: Improved Oral Intake Outcome: Ongoing (interventions implemented as appropriate) Goal: Adequate Sleep/Rest Outcome: Ongoing (interventions implemented as appropriate) Goal: Effective Urinary Elimination Outcome: Ongoing (interventions implemented as appropriate) 73 year old female admitted for treatment of pna. Alert and oriented x4. Completed abx therapy. Continues on tele with continous pox. Plan was dc to short term rehab, but patient is not choosing to dc home with [facility] services. Plan to dc tomorrow. Slept well overnight with no complaints of pain or shortness of breath. Call light in reach, see flowsheets for further information * Plan of Care - Ailyn Washington LPN - 06/25/2024 10:38 PM EST Problem: Fall Injury Risk Goal: Absence of Fall and Fall-Related Injury Outcome: Ongoing (interventions implemented as appropriate) Problem: Adult Inpatient Plan of Care Goal: Plan of Care Review Outcome: Ongoing (interventions implemented as appropriate) Goal: Patient-Specific Goal (Individualized) Outcome: Ongoing (interventions implemented as appropriate) Goal: Absence of Hospital-Acquired Illness or Injury Outcome: Ongoing (interventions implemented as appropriate) Goal: Optimal Comfort and Wellbeing Outcome: Ongoing (interventions implemented as appropriate) Goal: Readiness for Transition of Care Outcome: Ongoing (interventions implemented as appropriate) Problem: Hospitalized Older Adult Goal: Optimal Cognitive Function Outcome: Ongoing (interventions implemented as appropriate) Goal: Effective Bowel Elimination Outcome: Ongoing (interventions implemented as appropriate) Goal: Optimal Coping Outcome: Ongoing (interventions implemented as appropriate) Goal: Fluid and Electrolyte Balance Outcome: Ongoing (interventions implemented as appropriate) Goal: Optimal Functional Ability Outcome: Ongoing (interventions implemented as appropriate) Goal: Improved Oral Intake Outcome: Ongoing (interventions implemented as appropriate) Goal: Adequate Sleep/Rest Outcome: Ongoing (interventions implemented as appropriate) Goal: Effective Urinary Elimination Outcome: Ongoing (interventions implemented as appropriate) * Plan of Care - Elsy Munoz LPN - 06/25/2024 2:59 PM EST Problem: Fall Injury Risk Goal: Absence of Fall and Fall-Related Injury Outcome: Ongoing (interventions implemented as appropriate) Problem: Adult Inpatient Plan of Care Goal: Plan of Care Review Outcome: Ongoing (interventions implemented as appropriate) Problem: Adult Inpatient Plan of Care Goal: Plan of Care Review Outcome: Ongoing (interventions implemented as appropriate) Goal: Patient-Specific Goal (Individualized) Outcome: Ongoing (interventions implemented as appropriate) Goal: Absence of Hospital-Acquired Illness or Injury Outcome: Ongoing (interventions implemented as appropriate) Goal: Optimal Comfort and Wellbeing Outcome: Ongoing (interventions implemented as appropriate) Goal: Readiness for Transition of Care Outcome: Ongoing (interventions implemented as appropriate) Problem: Hospitalized Older Adult Goal: Optimal Cognitive Function Outcome: Ongoing (interventions implemented as appropriate) Goal: Effective Bowel Elimination Outcome: Ongoing (interventions implemented as appropriate) Goal: Optimal Coping Outcome: Ongoing (interventions implemented as appropriate) Goal: Fluid and Electrolyte Balance Outcome: Ongoing (interventions implemented as appropriate) Goal: Optimal Functional Ability Outcome: Ongoing (interventions implemented as appropriate) Goal: Improved Oral Intake Outcome: Ongoing (interventions implemented as appropriate) Goal: Adequate Sleep/Rest Outcome: Ongoing (interventions implemented as appropriate) Goal: Effective Urinary Elimination Outcome: Ongoing (interventions implemented as appropriate) Patient is alert/oriented, able to make needs known. Pt given enema today due to no BM since Monday. Pt was able to have BM. On RA, using walker intermittently. VSS. Please see flowsheet for additional assessment documentation. * Plan of Care - Zaira Lugo RN - 06/25/2024 1:35 PM EST Case Management Continued Stay Review: Discussed pt in MD rounds. Not ready for dc. Will be here for another day per hospitalist. RNCM sent msg via [facility]port to [facility] letting them know that pt not ready for dc today but willlikely be ready for dc tomorrow. Rec'd reply that they have gone for auth. [id number] Pt requested to speak with RNCM. RNCM went to the bedside. Pt advised she now does not want togo to STR, she wants to go home with [facility]. RNCM advised will have to contact [facility] to see if they can accept. RNCM sent msg in [facility]port, [facility] can accept but they are asking when pt discharging. RNCM advised waiting to hear from provider as to whether pt is going to dc today or tomorrow. RNCM sent msg to provider advising same. Asked provider to let this RNCM know if discharging today so [facility] can be notified. [id number] RNCM still not sure whether pt discharging today or tomorrow. This RNCM out of the office tomorrow. Will ask casework specialist to follow up with [facility] in the morning. Pertinent Clinical impacting hospitalization, level of care update, if indicated Pt reports no BM x 10 days. Sodium 135, BUN 34, creat 1.18, WBC 14.6. Pt given enema today. Discharge Planning: Discharge Plan: [facility] - [facility] has gone for auth. [id number] Patient stating she no longer wants to go to STR, wants to go home w/[facility]. [facility] accepted - will need to let them know when pt discharging. RNCM waiting to find out if pt will dc todayor tomorrow. * Plan of Care - Adina Cage, OT - 06/24/2024 3:24 PM EST Images from the original note were not included. Occupational Therapy Occupational Therapy Initial Assessment Patient Name: Genie Vora Date of Evaluation: 06/24/2024 Default Flowsheet Data (Last 12 Hours) OT Plan and Recommendation Row Name 06/24/24 1352 Clinical Impression Rehab Potential good, to achieve stated therapy goals Therapy Frequency 3 times/wk OT Predicted Duration of Therapy Intervention 2 weeks OT Anticipated Discharge Disposition retirement facility Row Name 06/24/24 1350 Clinical Impression Impairments Found (describe specific impairments) aerobic capacity/endurance;gait, locomotion, and balance Occupational Therapy Evaluation complexity level was based on the following elements: occupational profile, medical and therapy history of the patient, assessment and identification of performance deficits and complexity of clinical decision making as documented in the EMR in accordance with CMS CPT code standards. Level of complexity of evaluation : Moderate Comments: Pt is a 73yo who partipated in initial OT evaluation following admission for pneumonia. Upon approach, pt was seen sitting at edge of bed. Pt was agreeable to work with therapy. At baseline, pt reports I with ADLs/IADLs, however requiring increased assistance lately due to jose LE weakness. Pt reports numbness in fingers, noticing difficulty with fine motor tasks (pt gave example of handwriting getting worse) after long perioids of time/ use Pt completed bed mobility supine >< sit with CGA, HOB elevated. Pt completed fxl sit ><stand txfers with RW and CGA. 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 Pt donned pants seated EOB with set up assistance, requiring assistance to manage media monitor wiring. Pt completed toileting routine inclduing clothing mngmt and hygiene with SPV, however with increased effort noted. Pt is currently below fxl baseline and would benefit from skilled OT services to increase endurance/strength needed for selfcare/fx'l mobility/transfers in addditon to energy conservation techniques and acitivty modification techniques to improve activity tolerance and facilitate return to PLOF. Reccomending STR following DC when medically stable. Patient Active Problem List Diagnosis Midback Pain Neck pain Joint pain, knee Seborrheic dermatitis Osteoarthritis of hip Trigger thumb Pain in wrist, left Numbness Joint pain, hip Foot pain Obstructive sleep apnea Achilles tendinitis Anserine bursitis Pes planus, unspecified laterality Plantar fasciitis, left History of pain when walking Backache Sacroiliitis Coccydynia Bilateral carpal tunnel syndrome Lumbar canal stenosis Ankle pain Sciatica Posterior tibial tendinitis Trochanteric bursitis Pain in joint of left shoulder Lumbar radiculopathy Spondylisthesis Cervical spondylosis with myelopathy Cervical spine degeneration Weakness Hypoxia Generalized weakness A-fib (CMS/HCC) ([facility]) Anxiety Primary hypertension Hypothyroidism Pneumonia due to organism Chronic obstructive pulmonary disease with acute exacerbation (HCC) Severe asthma with exacerbation Acute respiratory failure with hypoxia ([facility]) Diastolic CHF, acute (CMS/HCC) ([facility]) Elevated serum creatinine Constipation Hyperkalemia Past Medical History: Diagnosis Date Arthritis Posterior tibial tendinitis History of Posterior tibial tendinitis 2014-09-02 Radial styloid tenosynovitis History of De Quervain's tenosynovitis 2011-07-29 Past Surgical History: Procedure Laterality Date ND ARTHROCENTESIS ASPIR&/INJ MAJOR JT/BURSA W/O US Right History of Arthrocentesis Injection Of Hip Joint Right hip steroid injection ND ARTHROCENTESIS ASPIR&/INJ MAJOR JT/BURSA W/O US Right History of Arthrocentesis Injection Of Hip Joint Right RIGHT HIP INJECTION WITH STEROID ND ARTHROCENTESIS ASPIR&/INJ MAJOR JT/BURSA W/O US Right History of Arthrocentesis Injection Of Hip Joint Right RIGHT HIP INJECTION ND ARTHROCENTESIS ASPIR&/INJ MAJOR JT/BURSA W/O US Right History of Arthrocentesis Injection Of Hip Joint Right RIGHT HIP CORTISONE INJECTION ND KNEE SCOPE,DIAGNOSTIC N/A History of Arthroscopy Knee ND ALVES W/O FACETEC FORAMOT/[facility] 05/23 VRT SEG, CERVICAL N/A History of Laminectomy Lumbar ND LAP,CHOLECYSTECTOMY N/A History of Cholecystectomy Laparoscopic PROCEDURE - HISTORIC N/A History of Lumbar Injection LUMBAR EPIDURAL STEROID INJECTION PROCEDURE - HISTORIC N/A History of Lumbar Injection LUMBAR EPIDURAL STEROID INJECTION PROCEDURE - HISTORIC N/A History of Lumbar Injection LEFT L4 EPIDURAL STEROID INJECTION Vitals Assessment: OT EVAL/TREAT (Last 12 Hours) Adult OT Eval/Treat Row Name 06/24/24 1352 General Information Patient Profile Review yes Onset of Illness/Injury or Date of Surgery 06/15/24 General Observations of Patient Pt was seen sitting at edge of bed. Pt was agreeable to work with therapy. Precautions/Restrictions fall Row Name 06/24/24 1352 [employer] Needed No Row Name 06/24/24 1352 Living Environment Lives With alone Living Arrangements apartment Home Accessibility elevator Living Environment Comment Pt reports using stairs at apartment building as they are closer to her apartment, more than the elevator. Row Name 06/24/24 1352 Equipment Details Equipment in the home Ambulation (row) Ambulation walker - four wheeled Equipment Used Prior to Admission shower chair Row Name 06/24/24 1352 Functional Level Prior Prior Functional Level Comment At baseline, pt reports I with ADLs/IADLs, however requiring increased assistance lately due to jose LE weakness. 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 [facility] Name 06/24/24 1352 Cognitive Assessment/Intervention Orientation Status (Cognitive) oriented x 4 [facility] 06/24/24 [facility] Pain Scale Pain Scale Pain Scale: Numbers Pre/Post-Treatment (Group) [facility] 06/24/24 [facility] Pain Scale: Numbers Treatment Pain Location - Orientation (Numbers Scale) lower Pain Location - Body (Numbers Scale) back Pain: Comment (Numbers Scale) Pt reports 5/10 when sitting still [facility] 06/24/24 1352 General UE Assessment Upper Extremity: Range of Motion LUE ROM was WFL;RUE ROM was WFL Upper Extremity: Range of Motion Detail Jose UE compliance advisor strength: 4/5 [facility] 06/24/24 [facility] Sensory Assessment (Somatosensory) Sensory Assessment (Somatosensory) sensation intact;bilateral UE Bilateral UE Sensory Assessment light touch awareness Comment, Sensory Assessment Pt reports numbness in fingers, noticing difficulty with fine motor tasks (pt gave example of handwriting getting worse) after long perioids of time/ use [facility] 06/24/24 [facility] Motor Coordination Assessment/Training Hand Dominance right Left Opposition intact Right Opposition intact [facility] 06/24/24 [facility] Bed Mobility Assessment/Treatment Spcdon-we-Krk [place] (Bed Mobility) contact guard assist Ivg-es-Yzgysb [place] (Bed Mobility) contact guard assist [facility] 06/24/24 [facility] Transfer Assessment/Treatment Sit-Stand [place] level (Transfers) contact guard assist Stand-Sit [place] level(Transfers) contact guard assist Wrp-Jywuk-Hkt Assistive Device (Transfers) walker, rolling [facility] 06/24/24 [facility] Gait Assessment/Treatment [place] (Gait) contact guard assist Assistive Device (Gait) walker, rolling Distance in Feet (Gait) 70 Comment (Gait) Pt noted with narrow ROB, rquiring cues to quill picking machine operator feet during ambulation [facility] Name 06/24/24 [facility] Lower Body Dressing Assessment/Training Comment (LB Dressing) Pt donned pants seated EOB with set up assistance, requiring assistance to manage media monitor wiring. [facility] 06/24/24 [facility] Toileting Assessment/Training [place] Level (Toileting) supervision required Impairments (Toileting) strength decreased [facility] 06/24/24 [facility] Clinical Impression Rehab Potential good, to achieve stated therapy goals Therapy Frequency 3 times/wk OT Predicted Duration of Therapy Intervention 2 weeks OT Anticipated Discharge Disposition retirement facility Row Name 06/24/24 1352 Planned Therapy Interventions Planned Therapy Interventions ADL retraining;energy conservation education;strengthening;stretching;transfer training Row Name 06/24/24 1352 Rehab Eval/Treat-Additional Details Document Type Initial Evaluation OT Date of Initial Eval/Re-Eval 06/24/24 Patient Effort good OT Goal Summary (all recorded) OT Goal Summary Row Name 06/24/24 [facility] Occupational Therapy Goals Bed Mobility Goal Selection (OT) bed mobility, OT goal 1 Transfer Goal Selection (OT) transfer, OT goal 1 Grooming Goal Selection (OT) grooming, OT goal 1 Toileting Goal Selection (OT) toileting, OT goal 1 Row Name 06/24/24 [facility] Bed Mobility Goal 1 (OT) Activity (Bed Mobility Goal 1, OT) sit to supine/supine to sit [place] Level (Bed Mobility Goal 1, OT) modified independence Time Frame (Bed Mobility Goal 1, OT) 1 week Row Name 06/24/24 [facility] Transfer Goal 1 (OT) Activity (Transfer Goal 1, OT) cyn-ez-pbege/toqae-ba-kjt [place] Level (Transfer Goal 1, OT) supervision required Assitive Devices (Transfer Goal 1, OT) walker, rolling Time Frame (Transfer Goal 1, OT) 1 week Row Name 06/24/24 [facility] Grooming Goal 1 (OT) Activity (Grooming Goal 1, OT) hair care;oral care;wash face, hands [place] Level (Grooming Goal 1, OT) supervision required standing at sink >5 min Time Frame (Grooming Goal 1, OT) 1 week Row Name 06/24/24 [facility] Toileting Goal 1 (OT) Activity (Toileting Goal 1, OT) toileting skills, all [place] Level (Toileting Goal 1, OT) independent Time Frame (Toileting Goal 1, OT) 1 week Row Name 06/24/24 1352 Pain Goal (OT) Pain Score (Pain Score, OT) 2 Activity (Pain Goal, OT) during all tasks in daily routine Time Frame (Pain Goal, OT) 1 week Adina Cage OT Licensure: [place], [place]: [id number] * Plan of Care - Elise Mills LPN - 06/24/2024 3:15 PM EST Problem: Fall Injury Risk Goal: Absence of Fall and Fall-Related Injury Outcome: Ongoing (interventions implemented as appropriate) Problem: Adult Inpatient Plan of Care Goal: Plan of Care Review Outcome: Ongoing (interventions implemented as appropriate) Goal: Patient-Specific Goal (Individualized) Outcome: Ongoing (interventions implemented as appropriate) Goal: Absence of Hospital-Acquired Illness or Injury Outcome: Ongoing (interventions implemented as appropriate) Goal: Optimal Comfort and Wellbeing Outcome: Ongoing (interventions implemented as appropriate) Goal: Readiness for Transition of Care Outcome: Ongoing (interventions implemented as appropriate) Problem: Hospitalized Older Adult Goal: Optimal Cognitive Function Outcome: Ongoing (interventions implemented as appropriate) Goal: Effective Bowel Elimination Outcome: Ongoing (interventions implemented as appropriate) Goal: Optimal Coping Outcome: Ongoing (interventions implemented as appropriate) Goal: Fluid and Electrolyte Balance Outcome: Ongoing (interventions implemented as appropriate) Goal: Optimal Functional Ability Outcome: Ongoing (interventions implemented as appropriate) Goal: Improved Oral Intake Outcome: Ongoing (interventions implemented as appropriate) Goal: Adequate Sleep/Rest Outcome: Ongoing (interventions implemented as appropriate) Goal: Effective Urinary Elimination Outcome: Ongoing (interventions implemented as appropriate) Patient alert and oriented x4, LSD with non productive cough on 2L o2 baseline PRN 2L at home. No c/o pain, anxious and tearful this morning PRN given with good effect. Ambulating to the bathroom independently and tolerating eating and drinking. * Plan of Care - Temi Santos, JAKY - 06/24/2024 2:19 PM EST Physical Therapy Physical Therapy Initial Assessment Patient Name: Genie Vora Date of Evaluation: 06/24/2024 Default Flowsheet Data (Last 12 Hours) PT Plan and Recommendation Row Name 06/24/24 3480 Clinical Impression Diagnosis decline in function due to pneumonia Patient/Family Goals Statement To be able to walk Criteria for Skilled Therapeutic Interventions Met yes;treatment indicated Impairments Found (describe specific impairments) aerobic capacity/endurance;gait, locomotion, and balance Rehab Potential good, to achieve stated therapy goals Therapy Frequency 3 times/wk PT Predicted Duration of Therapy Intervention by discharge PT Anticipated Discharge Disposition retirement facility Physical therapy evaluation level based on elements of the patient???s history, examination of bodysystems, clinical presentation, and complexity of clinical decision making, as documented in the EMR, in accordance with [facility] CPT code standards. Level of complexity of evaluation : Moderate Comments:Pt is a pleasant 73 y/o female who presented with pneumonia. Pt presented with decreased functional mobility skills, balance, endurance and activity tolerance. Pt also presented with B LE weakness. O2 level >93-96% on room air. Pt would be benefit from STR upon discharge to achieve optimal function.Pt was educated with supine thera ex: quad sets/SLR/ankle pumps x 10 reps. Pt was left supine in bed. Callbell within reach. Patient Active Problem List Diagnosis Midback Pain Neck pain Joint pain, knee Seborrheic dermatitis Osteoarthritis of hip Trigger thumb Pain in wrist, left Numbness Joint pain, hip Foot pain Obstructive sleep apnea Achilles tendinitis Anserine bursitis Pes planus, unspecified laterality Plantar fasciitis, left History of pain when walking Backache Sacroiliitis Coccydynia Bilateral carpal tunnel syndrome Lumbar canal stenosis Ankle pain Sciatica Posterior tibial tendinitis Trochanteric bursitis Pain in joint of left shoulder Lumbar radiculopathy Spondylisthesis Cervical spondylosis with myelopathy Cervical spine degeneration Weakness Hypoxia Generalized weakness A-fib (CMS/HCC) ([facility]) Anxiety Primary hypertension Hypothyroidism Pneumonia due to organism Chronic obstructive pulmonary disease with acute exacerbation (HCC) Severe asthma with exacerbation Acute respiratory failure with hypoxia ([facility]) Diastolic CHF, acute (CMS/[facility]) ([facility]) Elevated serum creatinine Constipation Hyperkalemia Past Medical History: Diagnosis Date Arthritis Posterior tibial tendinitis History of Posterior tibial tendinitis 2014-09-02 Radial styloid tenosynovitis History of De Quervain's tenosynovitis 2011-07-29 Past Surgical History: Procedure Laterality Date ND ARTHROCENTESIS ASPIR&/INJ MAJOR JT/BURSA W/O US Right History of Arthrocentesis Injection Of Hip Joint Right hip steroid injection ND ARTHROCENTESIS ASPIR&/INJ MAJOR JT/BURSA W/O US Right History of Arthrocentesis Injection Of Hip Joint Right RIGHT HIP INJECTION WITH STEROID ND ARTHROCENTESIS ASPIR&/INJ MAJOR JT/BURSA W/O US Right History of Arthrocentesis Injection Of Hip Joint Right RIGHT HIP INJECTION ND ARTHROCENTESIS ASPIR&/INJ MAJOR JT/BURSA W/O US Right History of Arthrocentesis Injection Of Hip Joint Right RIGHT HIP CORTISONE INJECTION ND KNEE SCOPE,DIAGNOSTIC N/A History of Arthroscopy Knee ND ALVES W/O FACETEC FORAMOT/[facility] 1/ VRT SEG, CERVICAL N/A History of Laminectomy Lumbar ND LAP,CHOLECYSTECTOMY N/A History of Cholecystectomy Laparoscopic PROCEDURE - HISTORIC N/A History of Lumbar Injection LUMBAR EPIDURAL STEROID INJECTION PROCEDURE - HISTORIC N/A History of Lumbar Injection LUMBAR EPIDURAL STEROID INJECTION PROCEDURE - HISTORIC N/A History of Lumbar Injection LEFT L4 EPIDURAL STEROID INJECTION Vitals Default Flowsheet Data (Last 12 Hours) Adult PT Evaluation/Treatment Row Name 06/24/24 1350 General Information Patient Profile Review yes General Observations of Patient Pt was seen sitting at edge of bed. Pt was agreeable to PT session. Precautions/Restrictions fall Row Name 06/24/24 1350 Living Environment Lives With alone Living Arrangements apartment Home Accessibility elevator Living Environment Comment Pt reported that she uses fire exit more than elevator. Row Name 06/24/24 1350 Equipment Details Equipment in the home Ambulation (row) Ambulation walker - four wheeled Row Name 06/24/24 1350 Functional Level Prior Bed Mobility independent Transferring modified independent Transfer Assistive Device walker, four wheeled Ambulation modified independent Ambulation Assistive Device walker, four wheeled Prior Functional Level Comment Pt reported independence with her ADLS at baseline but lately neededassistance due to B LE weakness. Row Name 06/24/24 1350 Hearing Hearing Status WFL Row Name 06/24/24 1350 Vision Assessment/Intervention Visual Impairment/Limitations WFL Row Name 06/24/24 1350 Cognitive Assessment/Intervention Orientation Status (Cognitive) oriented x 4 Row Name 06/24/24 1350 Pain Scale Pain Scale No/denies pain Row Name 06/24/24 1350 General LE Assessment Lower Extremity: Range of Motion LLE ROM was WFL;RLE ROM was WFL Row Name 06/24/24 1350 MMT (Manual Muscle Testing) Additional Documentation lower extremity strength deficits identified Row Name 06/24/24 1350 MMT: Lower Extremity Lower Extremity: Manual Muscle Testing Detail Grossly graded 3+/5 Row Name 06/24/24 1350 Bed Mobility Assessment/Treatment Jzjczc-sw-Kaf [place] (Bed Mobility) contact guard assist Est-td-Fuoqmb [place] (Bed Mobility) contact guard assist Default Flowsheet Data (Last 12 Hours) Adult PT Focused Evaluation/Treatment Row Name 06/24/24 1350 Transfer Assessment/Treatment Sit-Stand [place] level (Transfers) contact guard assist Stand-Sit [place] level(Transfers) contact guard assist Hsk-Cfyms-Zsk Assistive Device (Transfers) walker, rolling Row Name 06/24/24 1350 Gait Assessment/Treatment [place] (Gait) contact guard assist Assistive Device (Gait) walker, rolling Distance in Feet (Gait) 70 Comment (Gait) Pt demonstrated increased stance time and narrow base of support. Row Name 06/24/24 1350 Clinical Impression Diagnosis decline in function due to pneumonia Patient/Family Goals Statement To be able to walk Criteria for Skilled Therapeutic Interventions Met yes;treatment indicated Impairments Found (describe specific impairments) aerobic capacity/endurance;gait, locomotion, and balance Rehab Potential good, to achieve stated therapy goals Therapy Frequency 3 times/wk PT Predicted Duration of Therapy Intervention by discharge PT Anticipated Discharge Disposition retirement facility Row Name 06/24/24 1350 Planned Therapy Interventions Planned Therapy Interventions bed mobility training;gait training;transfer training Row Name 06/24/24 1350 PT Eval/ Treat- Additional Details Document Type Initial Evaluation PT Date of Initial Eval/Re-Eval 06/24/24 PT Goal Summary (all recorded) PT Rehab Goal Summary Row Name 06/24/24 1418 Physical Therapy Goals Bed Mobility Goal Selection (PT) bed mobility, PT goal 1 Transfer Goal Selection (PT) transfer, PT goal 1 Gait Training Goal Selection (PT) gait training, PT goal 1 Row Name 06/24/24 1418 Bed Mobility Goal 1 (PT) Activity (Bed Mobility Goal 1, PT) sit to supine;supine to sit [place] Level/Cues Needed (Bed Mobility Goal 1, PT) independent Assitive Devices (Bed Mobility Goal 1, PT) none Time Frame (Bed Mobility Goal 1, PT) by discharge Row Name 06/24/24 1418 Transfer Goal 1 (PT) Activity (Transfer Goal 1, PT) cup-jj-zaqol/eambx-wb-sxw [place] Level/Cues Needed (Transfer Goal 1, PT) modified independence Assitive Devices (Transfer Goal 1, PT) walker, rolling Time Frame (Transfer Goal 1, PT) by discharge Temi Santos, PT Licensure: [place], [place]: [id number] * Plan of Care - Magui Gee RN - 06/24/2024 1:58 PM EST Case Management Continued Stay Review Pertinent Clinical impacting hospitalization, level of care update, if indicated: 1530 [facility] offered bed, requesting auth, patient inquired on private room at [facility], CMRN inquired to home care liaison a [facility], patient is slated to admit to private room. Receiving nebs and iv abx. PT/OT eval completed, met with therapists, rec for STR, CMRN met with patient, agreeable to STR if able to admit to a quality facility that will provide effective care. Referral to [facility] - not contracted [facility] - interested, pending official bed offer - 1st choice [facility] - bed offer [facility] - pending [facility] - bed offer Recent STR admission, declines to return to previous facility. Discharge Planning Discharge Barrier: not medically ready Discharge Plan: [facility] - pending auth Choice list (with star ratings) provided / discussed, if indicated (Y or NA): Y * Assessment & Plan Note - Olivia Arteaga NP - 06/24/2024 1:57 PM EST Associated Problem(s): Hyperkalemia K 6.2--> 5.1 -Losartan on hold -Lokelma dose this a.m. * Assessment & Plan Note - Olivia Arteaga NP - 06/24/2024 1:56 PM EST Associated Problem(s): Severe asthma with exacerbation PMH significant for asthma. Therapy as above. * Assessment & Plan Note - Olivia Arteaga NP - 06/24/2024 1:56 PM EST Associated Problem(s): Pneumonia due to organism CT chest shows no evidence of PE. Left bibasilar consolidation along with left lower lobe nodules. This could relate to pneumonia and/or aspiration. CXR ordered on 06/18/2024 resulted today 06/20/2024 showing with demonstration of left bibasilar consolidation. Follow-up chest x-ray (06/22), interval clearing of prior left lower lobe infiltrate/atelectasis BC negative to date Urine Legionella and streptococcal pneumonia, and mycoplasma pneumonia negative Sputum C+S grew rayna albicans. Started Nystatin S&S. - completed 9-day course Ceftriaxone - Completed 5-day course of azithromycin. - resp status stable on room air today * Assessment & Plan Note - Olivia Arteaga NP - 06/24/2024 1:50 PM EST Associated Problem(s): Lumbar canal stenosis Lumbar canal stenosis: Likely exacerbating her symptoms. She C/O pain. - Continue Tramadol, unable to increase due to resp status. - Increased Lyrica to 200mg BID. - She has an appointment at the end of this week with a spine surgeon. - Continue Vit D and calcium supplements. - Toradol stopped, as this does not help and she thinks it is exacerbating her GERD. - Refused Lidoderm patches. - Added Lorazepam PRN for anxiety and may help her relax and ease her pain. -PT eval --> recommend STR * Assessment & Plan Note - Olivia Arteaga NP - 06/24/2024 1:49 PM EST Associated Problem(s): Hypothyroidism Continue with Levothyroxine 112 mcg daily. TSH WNL * Assessment & Plan Note - Olivia Arteaga NP - 06/24/2024 1:49 PM EST Associated Problem(s): Elevated serum creatinine Slight elevation in creatinine, likely due to IV Lasix. Improved after IV Lasix stopped. * Assessment & Plan Note - Olivia Arteaga NP - 06/24/2024 1:48 PM EST Associated Problem(s): Diastolic CHF, acute (CMS/HCC) (HCC) CHF diastolic component: She developed increased requirement for oxygen yesterday. CXR ordered on 06/18/2024 resulted 06/20/2024 showing left basilar consolidation. No new abnormality in the chest. CHFsecondary to likely pneumonia and COPD exacerbation. Pro-BNP elevated 2998 Echocardiogram on 06/04/2024 LVEF 65%. Grade 1 left ventricular diastolic dysfunction. Left atrium is moderately dilate Mild tricuspid regurgitation Pulmonary artery systolic pressure is upper normal. - Continue Lasix 20mg PO daily. She had been on 40mg IV and diuresed over 3L. - Daily weight - Maintain low sodium diet. - Troponin 14. proBNP improved to 2459 * Assessment & Plan Note - Olivia Arteaga NP - 06/24/2024 1:44 PM EST Associated Problem(s): Constipation Constipation: Bowel regimen ordered. Enema today * Assessment & Plan Note - Olivia Arteaga NP - 06/24/2024 1:44 PM EST Associated Problem(s): Chronic obstructive pulmonary disease with acute exacerbation (HCC) No formal diagnosis of COPD, but she was a former smoker. - Plan for home nebulizer at discharge. -Wean supplemental O2 as tolerated -Check trending SpO2 -Taper steroids * Assessment & Plan Note - Olivia Arteaga NP - 06/24/2024 1:44 PM EST Associated Problem(s): Acute respiratory failure with hypoxia ([facility]) Acute Resp Failure: Evidenced on admission by SpO2 88% requiring 3-4L SQU[employer]. Tachypnea with RR increased to 22 RPM. She is not home-O2 dependent. -Wean supplemental O2 as tolerated, presently om room air -Taper steroids -Continue supportive therapy with nebulized bronchodilators, ICS and multiple antitussives. -Avoid increasing Tramadol in setting of COPD/asthma. * Assessment & Plan Note - Olivia Arteaga NP - 06/24/2024 1:40 PM EST Associated Problem(s): A-fib (CMS/HCC) ([facility]) A-Fib: Secondary hypercoagulable state due to arrhythmia. - Continue anticoagulation with Eliquis for stroke prevention. - HR controlled on Flecainide. - d/c tele * Plan of Care - Radha Morris RN - 06/24/2024 12:20 AM EST Problem: Fall Injury Risk Goal: Absence of Fall and Fall-Related Injury Outcome: Ongoing (interventions implemented as appropriate) Problem: Adult Inpatient Plan of Care Goal: Plan of Care Review Outcome: Ongoing (interventions implemented as appropriate) Goal: Absence of Hospital-Acquired Illness or Injury Outcome: Ongoing (interventions implemented as appropriate) Goal: Optimal Comfort and Wellbeing Outcome: Ongoing (interventions implemented as appropriate) Problem: Hospitalized Older Adult Goal: Optimal Cognitive Function Outcome: Ongoing (interventions implemented as appropriate) Goal: Effective Bowel Elimination Outcome: Ongoing (interventions implemented as appropriate) Goal: Optimal Coping Outcome: Ongoing (interventions implemented as appropriate) Goal: Fluid and Electrolyte Balance Outcome: Ongoing (interventions implemented as appropriate) Goal: Optimal Functional Ability Outcome: Ongoing (interventions implemented as appropriate) Goal: Improved Oral Intake Outcome: Ongoing (interventions implemented as appropriate) Goal: Adequate Sleep/Rest Outcome: Ongoing (interventions implemented as appropriate) Goal: Effective Urinary Elimination Outcome: Ongoing (interventions implemented as appropriate) Pt A&OX4, able to make needs known. VSS on 2l. Denies pain. LS coarse and with exp wheezes,denies feeling shortness of breath. Occ non prod cough,on IV CTX/solu medrol and nebs. Pt c/o not havinga BM in 8 days, multiple bowel meds given on this shift with no results. Esther diet. On tele and contpulse ox. Tele SR with BBB and PVC's. Pt does desat to low 80s when on RA. Call light within reach,safety maintained. * Plan of Care - Zaira Lugo RN - 06/23/2024 5:22 PM EST Case Management Continued Stay Review: Discussed pt with hospitalist. Not ready for dc. Will be here for another day or two. RNCM sent msg via [facility] to [facility] letting them know pt not ready for dc and that we will keep themupdated on dc status. Pertinent Clinical impacting hospitalization, level of care update, if indicated Sodium 134, potassium 5.6, BUN 36 , WBC 17.3. Discharge Planning: Discharge Plan: Home w/[facility] - SN, PT, OT * Assessment & Plan Note - Sydney David NP - 06/23/2024 4:19 PM EST Associated Problem(s): Severe asthma with exacerbation PMH significant for asthma. Therapy as above. * Assessment & Plan Note - Sydney David NP - 06/23/2024 4:19 PM EST Associated Problem(s): Pneumonia due to organism CT chest shows no evidence of PE. Left bibasilar consolidation along with left lower lobe nodules. This could relate to pneumonia and/or aspiration. CXR ordered on 06/18/2024 resulted today 06/20/2024 showing with demonstration of left bibasilar consolidation. Continue Ceftriaxone 1G IV daily. She has finished a course of Azithromycin. BC negative to date Urine Legionella and streptococcal pneumonia, and mycoplasma pneumonia negative Sputum C+S grew rayna albicans. Started Nystatin S&S. * Assessment & Plan Note - Sydney Dvaid NP - 06/23/2024 4:19 PM EST Associated Problem(s): Lumbar canal stenosis Lumbar canal stenosis: Likely exacerbating her symptoms. She C/O pain. Continue Tramadol, unable to increase due to resp status. Increased Lyrica to 200mg BID. She has an appointment at the end of this week with a spine surgeon. Continue Vit D and calcium supplements. Ca low at 8.2, check vit D level. Toradol stopped, as this does not help and she thinks it is exacerbating her GERD. Refused Lidoderm patches. Added Lorazepam PRN for anxiety and may help her relax and ease her pain. * Assessment & Plan Note - Sydney David NP - 06/23/2024 4:18 PM EST Associated Problem(s): Hypothyroidism Continue with Levothyroxine 112 mcg daily. TSH WNL * Assessment & Plan Note - Sydney David NP - 06/23/2024 4:18 PM EST Associated Problem(s): Elevated serum creatinine Slight elevation in creatinine, likely due to IV Lasix. Improved after IV Lasix stopped. * Assessment & Plan Note - Sydney David NP - 06/23/2024 4:18 PM EST Associated Problem(s): Diastolic CHF, acute (CMS/HCC) (HCC) CHF diastolic component: She developed increased requirement for oxygen yesterday. CXR ordered on 06/18/2024 resulted today 06/20/2024 showing with demonstration of left bibasilar consolidation. No newabnormality in the chest. CHF secondary to likely pneumonia and COPD exacerbation. Pro-BNP elevated 2998 Echocardiogram on 06/04/2024 LVEF 65%. Grade 1 left ventricular diastolic dysfunction. Left atrium is moderately dilate Mild tricuspid regurgitation Pulmonary artery systolic pressure is upper normal. Continue Lasix 20mg PO daily. She had been on 40mg IV and diuresed over 3L. Weight down Maintain low sodium diet. Troponin 14. proBNP improved to 2459 * Assessment & Plan Note - Sydney David NP - 06/23/2024 4:18 PM EST Associated Problem(s): Constipation Constipation: Bowel regimen ordered. * Assessment & Plan Note - Sydney David NP - 06/23/2024 4:18 PM EST Associated Problem(s): Chronic obstructive pulmonary disease with acute exacerbation (HCC) No formal diagnosis of COPD, but she was a former smoker. Plan for home nebulizer at discharge. * Assessment & Plan Note - Sydney David NP - 06/23/2024 4:18 PM EST Associated Problem(s): Acute respiratory failure with hypoxia (HCC) Acute Resp Failure: Evidenced on admission by SpO2 88% requiring 3-4L [employer]. Tachypnea with RR increased to 22 RPM. She is not home-O2 dependent. Presently weaned to 2L [employer], but still coarse with rhonchus cough. Reduced IV steroids as no wheezing on exam and she appears tearful and depressed. Continue supportive therapy with nebulized bronchodilators, ICS and multiple antitussives. Avoid increasing Tramadol in setting of COPD/asthma. * Assessment & Plan Note - Sydney David NP - 06/23/2024 4:17 PM EST Associated Problem(s): A-fib (CMS/HCC) ([facility]) A-Fib: HR controlled on Flecainide. Secondary hypercoagulable state due to arrhythmia. Continue anticoagulation with Eliquis for stroke prevention. * Subjective & Objective - Sydney David NP - 06/23/2024 4:13 PM EST Progress Note Subjective CHIEF COMPLAINT: Mood improved on exam. Informed son, Maurice, findings, condition and plan of care. 24 HOUR INTERVAL HISTORY: Remains hemodynamically stable on O2. C/O she is anxious and has not had a BM in ~ 1 week. She reports dyspnea and cough and pain along left rib border. Small ecchymosis noted in the area with reproducible pain. MEDICATIONS: All medications reviewed. Objective Temp: [36.3 ??C (97.3 ??F)-36.9 ??C (98.5 ??F)] 36.7 ??C (98 ??F) Heart Rate: [60-86] 86 Resp: [16-22] 20 BP: (120-159)/(73-87) 132/87 SpO2: [94 %-95 %] 95 % Lines: IV site intact. Physical Exam General appearance: Alert, In no acute distress, Ox3, and Obese HEENT: Normocephalic, atraumatic Pupils are equal, round and react to light Nonicteric Extraocular movements intact Mucous membranes moist and without lesions Lungs: coarse throughout. Heart: Rate and Rhythm: regular Abdomen: Soft, non-tender throughout, obese, normoactive bowel sounds , and bowel sounds normactive Extremities: Normal range of motion, Skin warm and dry, and mild sock edema BLE. Skin: No rash or ulcers Neurologic: Alert and oriented x 3, CN II - XII intact, Motor 5/5 throughout, Sensation intact, Hearing normal, and Memory intact Mood in better spirits. Result Review I have reviewed the patient's labs results from the last 24 hours. Imaging/Other Studies I have personally reviewed the patient's imaging results * Plan of Care - Linda Edmonds LPN - 06/23/2024 2:16 PM EST Problem: Fall Injury Risk Goal: Absence of Fall and Fall-Related Injury Outcome: Ongoing (interventions implemented as appropriate) Problem: Adult Inpatient Plan of Care Goal: Plan of Care Review Outcome: Ongoing (interventions implemented as appropriate) Flowsheets (Taken 06/23/2024 1415) Plan of Care Summary: Patient alert and oriented, able to make needs known. LSCA, dry cough present, no s/sx SOB or respiratory distress. Patient states she has home O2 from her dc home from rehab. Denies any pain or discomfort at this time. Please see flowsheets for further information. Goal: Patient-Specific Goal (Individualized) Outcome: Ongoing (interventions implemented as appropriate) Goal: Absence of Hospital-Acquired Illness or Injury Outcome: Ongoing (interventions implemented as appropriate) Goal: Optimal Comfort and Wellbeing Outcome: Ongoing (interventions implemented as appropriate) Goal: Readiness for Transition of Care Outcome: Ongoing (interventions implemented as appropriate) Problem: Hospitalized Older Adult Goal: Optimal Cognitive Function Outcome: Ongoing (interventions implemented as appropriate) Goal: Effective Bowel Elimination Outcome: Ongoing (interventions implemented as appropriate) Goal: Optimal Coping Outcome: Ongoing (interventions implemented as appropriate) Goal: Fluid and Electrolyte Balance Outcome: Ongoing (interventions implemented as appropriate) Goal: Optimal Functional Ability Outcome: Ongoing (interventions implemented as appropriate) Goal: Improved Oral Intake Outcome: Ongoing (interventions implemented as appropriate) Goal: Adequate Sleep/Rest Outcome: Ongoing (interventions implemented as appropriate) Goal: Effective Urinary Elimination Outcome: Ongoing (interventions implemented as appropriate) Plan of Care Summary: Patient alert and oriented, able to make needs known. LSCA, dry cough present, no s/sx SOB or respiratory distress. Patient states she has home O2 from her dc home from rehab. Denies any pain or discomfort at this time. Please see flowsheets for further information. * Plan of Care - Rossy Don LPN - 06/23/2024 3:40 AM EST Problem: Fall Injury Risk Goal: Absence of Fall and Fall-Related Injury Outcome: Ongoing (interventions implemented as appropriate) Problem: Adult Inpatient Plan of Care Goal: Plan of Care Review Outcome: Ongoing (interventions implemented as appropriate) Goal: Patient-Specific Goal (Individualized) Outcome: Ongoing (interventions implemented as appropriate) Goal: Absence of Hospital-Acquired Illness or Injury Outcome: Ongoing (interventions implemented as appropriate) Goal: Optimal Comfort and Wellbeing Outcome: Ongoing (interventions implemented as appropriate) Goal: Readiness for Transition of Care Outcome: Ongoing (interventions implemented as appropriate) Problem: Hospitalized Older Adult Goal: Optimal Cognitive Function Outcome: Ongoing (interventions implemented as appropriate) Goal: Effective Bowel Elimination Outcome: Ongoing (interventions implemented as appropriate) Goal: Optimal Coping Outcome: Ongoing (interventions implemented as appropriate) Goal: Fluid and Electrolyte Balance Outcome: Ongoing (interventions implemented as appropriate) Goal: Optimal Functional Ability Outcome: Ongoing (interventions implemented as appropriate) Goal: Improved Oral Intake Outcome: Ongoing (interventions implemented as appropriate) Goal: Adequate Sleep/Rest Outcome: Ongoing (interventions implemented as appropriate) Goal: Effective Urinary Elimination Outcome: Ongoing (interventions implemented as appropriate) Patient is A/Ox4, pleasant. VSS. Requested PRN miralax and received as documented in JUL. On tele and continuous pulse ox, SR, BBB, PVCS, SPO2 88-98%. Remains on 2L O2.See nursing flowsheets for further documentation. * Assessment & Plan Note - Sydney David NP - 06/22/2024 5:57 PM EST Associated Problem(s): Severe asthma with exacerbation PMH significant for asthma. Therapy as above. * Assessment & Plan Note - Sydney David NP - 06/22/2024 5:56 PM EST Associated Problem(s): Pneumonia due to organism CT chest shows no evidence of PE. Left bibasilar consolidation along with left lower lobe nodules. This could relate to pneumonia and/or aspiration. CXR ordered on 06/18/2024 resulted today 06/20/2024 showing with demonstration of left bibasilar consolidation. Continue Ceftriaxone 1G IV daily. She has finished a course of Azithromycin. BC negative to date Urine Legionella and streptococcal pneumonia, and mycoplasma pneumonia negative Sputum C+S grew rayna albicans. Started Nystatin S&S. * Assessment & Plan Note - Sydney David NP - 06/22/2024 5:54 PM EST Associated Problem(s): Lumbar canal stenosis Lumbar canal stenosis: Likely exacerbating her symptoms. She C/O pain. Continue Tramadol, unable to increase due to resp status. Increased Lyrica to 200mg BID. She has an appointment at the end of this week with a spine surgeon. Continue Vit D and calcium supplements. Ca low at 8.2, check vit D level. Toradol stopped, as this does not help and she thinks it is exacerbating her GERD. Refused Lidoderm patches. Added Lorazepam PRN for anxiety and may help her relax and ease her pain. * Assessment & Plan Note - Sydney David NP - 06/22/2024 5:50 PM EST Associated Problem(s): Hypothyroidism Continue with Levothyroxine 112 mcg daily. TSH WNL * Assessment & Plan Note - Sydney David NP - 06/22/2024 5:50 PM EST Associated Problem(s): Elevated serum creatinine Slight elevation in creatinine, likely due to IV Lasix. Improved after IV Lasix stopped. * Assessment & Plan Note - Sydney David NP - 06/22/2024 5:48 PM EST Associated Problem(s): Diastolic CHF, acute (CMS/HCC) (HCC) CHF diastolic component: She developed increased requirement for oxygen yesterday. CXR ordered on 06/18/2024 resulted today 06/20/2024 showing with demonstration of left bibasilar consolidation. No newabnormality in the chest. CHF secondary to likely pneumonia and COPD exacerbation. Pro-BNP elevated 2998 Echocardiogram on 06/04/2024 LVEF 65%. Grade 1 left ventricular diastolic dysfunction. Left atrium is moderately dilate Mild tricuspid regurgitation Pulmonary artery systolic pressure is upper normal. Continue Lasix 20mg PO daily. She had been on 40mg IV and diuresed over 3L. Weight down Maintain low sodium diet. Troponin 14. proBNP improved to 2459 * Assessment & Plan Note - Sydney David NP - 06/22/2024 5:43 PM EST Associated Problem(s): Chronic obstructive pulmonary disease with acute exacerbation (HCC) No formal diagnosis of COPD, but she was a former smoker. Plan for home nebulizer at discharge. * Assessment & Plan Note - Sydney David NP - 06/22/2024 5:42 PM EST Associated Problem(s): Acute respiratory failure with hypoxia (HCC) Acute Resp Failure: Evidenced on admission by SpO2 88% requiring 3-4L [employer]. Tachypnea with RR increased to 22 RPM. She is not home-O2 dependent. Presently weaned to 2L [employer]QUIR[employer], but still coarse with rhonchus cough. Reduced IV steroids as no wheezing on exam and she appears tearful and depressed. Continue supportive therapy with nebulized bronchodilators, ICS and multiple antitussives. Avoid increasing Tramadol in setting of COPD/asthma. * Assessment & Plan Note - Sydney David NP - 06/22/2024 5:37 PM EST Associated Problem(s): A-fib (CMS/HCC) (HCC) A-Fib: HR controlled on Flecainide. Secondary hypercoagulable state due to arrhythmia. Continue anticoagulation with Eliquis for stroke prevention. * Subjective & Objective - Sydney David NP - 06/22/2024 5:29 PM EST Progress Note Subjective CHIEF COMPLAINT: Tearful on exam with multiple C/O not feeling well exacerbated by chronic pain she describes as a heavy cloak from neck radiating to shoulders and both arms. 24 HOUR INTERVAL HISTORY: Remains hemodynamically stable on O2. C/O she is anxious and has not had a BM in ~ 1 week. She reports dyspnea and cough and pain along left rib border. Small ecchymosis noted in the area with reproducible pain. MEDICATIONS: All medications reviewed. Objective Temp: [36.3 ??C (97.4 ??F)-37.1 ??C (98.7 ??F)] 37.1 ??C (98.7 ??F) Heart Rate: [66-91] 68 Resp: [16-19] 16 BP: (121-158)/(72-86) 125/72 SpO2: [92 %-95 %] 95 % Lines: IV site intact. Physical Exam General appearance: Alert, In no acute distress, Ox3, Anxious, and tearful (? Steroids). HEENT: Normocephalic, atraumatic Pupils are equal, round and react to light Nonicteric Extraocular movements intact Hearing grossly normal Mucous membranes moist and without lesions Lungs: Coarse LS throughout, but no wheezing or rhonchi. Heart: Rate and Rhythm: regular Abdomen: Soft, non-tender throughout, obese, normoactive bowel sounds , No rebound or guarding, andNo TTP. Extremities: Normal range of motion, Skin warm and dry, and No cyanosis, clubbing or edema Skin: No rash or ulcers Neurologic: Alert and oriented x 3, CN II - XII intact, Motor 5/5 throughout, Sensation intact, Hearing normal, and Memory intact Mood depressed and anxious. Result Review I have reviewed the patient's labs results from the last 24 hours. Imaging/Other Studies I have personally reviewed the patient's imaging results * Plan of Care - Zaira Lugo RN - 06/22/2024 4:03 PM EST Case Management Continued Stay Review: Discussed pt with hospitalist. Not ready for dc. Will be here for another day. RNCM sent msg in [facility] to [facility] letting them know pt not ready for dc and that we will keep them updated on dc status. Pertinent Clinical impacting hospitalization, level of care update, if indicated Sodium 134, BUN 40, GFR 57, receiving IV Solumedrol. Pt given bowel regimen as she has not had a BM. Discharge Planning: Discharge Plan: Home w/[facility] - SN, PT, OT * Plan of Care - Cecille Zendejas RN - 06/22/2024 2:15 PM EST Patient alert oriented able to make needs known. Patient updated regarding plan of care this morning no complaints. * Plan of Care - Eren Pearson RN - 06/21/2024 11:21 PM EST Problem: Fall Injury Risk Goal: Absence of Fall and Fall-Related Injury Outcome: Ongoing (interventions implemented as appropriate) Problem: Adult Inpatient Plan of Care Goal: Plan of Care Review Outcome: Ongoing (interventions implemented as appropriate) Goal: Patient-Specific Goal (Individualized) Outcome: Ongoing (interventions implemented as appropriate) Goal: Absence of Hospital-Acquired Illness or Injury Outcome: Ongoing (interventions implemented as appropriate) Goal: Optimal Comfort and Wellbeing Outcome: Ongoing (interventions implemented as appropriate) Goal: Readiness for Transition of Care Outcome: Ongoing (interventions implemented as appropriate) Problem: Hospitalized Older Adult Goal: Optimal Cognitive Function Outcome: Ongoing (interventions implemented as appropriate) Goal: Effective Bowel Elimination Outcome: Ongoing (interventions implemented as appropriate) Goal: Optimal Coping Outcome: Ongoing (interventions implemented as appropriate) Goal: Fluid and Electrolyte Balance Outcome: Ongoing (interventions implemented as appropriate) Goal: Optimal Functional Ability Outcome: Ongoing (interventions implemented as appropriate) Goal: Improved Oral Intake Outcome: Ongoing (interventions implemented as appropriate) Goal: Adequate Sleep/Rest Outcome: Ongoing (interventions implemented as appropriate) Goal: Effective Urinary Elimination Outcome: Ongoing (interventions implemented as appropriate) * Plan of Care - Philomena Vinson RRT - 06/21/2024 6:45 PM EST RESPIRATORY CARE NOTE . Placed pt on auto-CPAP @1830 with 2L being titrated in. Nurse present for placement. Pt has no complaints at this time. Plan of care ongoing. Philomena Vinson RRT * Brief Progress Note - Mart Hernandez RRT - 06/21/2024 5:55 PM EST Auto-titrating CPAP set up at bedside, pt fitted comfortably to an under the nose B mask. Pt to have 2L O2 titrated in to it, RN aware that it needs to be switched over when in use. Pt remains comfortably 1L NC in no apparent respiratory distress with no questions at this time. Plan of care is ongoing. * Subjective & Objective - Andrew Finney MD - 06/21/2024 5:33 PM EST PROGRESS NOTE Subjective CHIEF COMPLAINT: 06/21/2024 Admitted on 06/15/2024 (Hospital Day: 7) due to Pneumonia due to an unspecified organism 24 HOUR INTERVAL HISTORY: Patient seen and examined at the bedside. No events reported overnight. She continues to complain of left-sided posterior chest pain, especially when she coughs. She is getting Toradol IV and tramadol as needed for pain control. She reports nausea this morning, but denies any vomiting. Her cough iscurrently productive of white phlegm. She reports dyspnea on mild exertion. She states that she hasnot had a bowel movement for 5 days. She declines suppositories or enemas. Review of Systems: As above. Otherwise, noncontributory. MEDICATIONS: REVIEWED CURRENT: apixaban, 5 mg, oral, q12h RANDI budesonide nebulizer, 1 mg, inhalation, q12h RANDI busPIRone, 7.5 mg, oral, BID cefTRIAXone, 1 g, intravenous, q24h RANDI dilTIAZem CD, 120 mg, oral, Daily docusate, 100 mg, oral, 2x daily DULoxetine DR, 60 mg, oral, Daily flecainide, 100 mg, oral, 2x daily guaiFENesin ER, 600 mg, oral, q12h RANDI ipratropium-albuteroL, 3 mL, inhalation, 4x daily levothyroxine, 112 mcg, oral, Daily losartan, 50 mg, oral, 2x daily methocarbamoL, 750 mg, oral, 3x daily methylPREDNISolone sodium succinate, 60 mg, intravenous, q6h pantoprazole DR, 40 mg, oral, Daily pregabalin, 150 mg, oral, 2x daily senna, 17.2 mg, oral, Nightly sodium chloride, 2.5-10 mL, intravenous, See admin instructions And sodium chloride, 2.5-10 mL, intravenous, q12h RANDI traZODone, 100 mg, oral, Nightly PRN: acetaminophen, 650 mg, oral, q4h PRN albuterol, 2.5 mg, inhalation, q4h PRN aluminum-magnesium hydroxide-simethicone, 30 mL, oral, q4h PRN benzonatate, 100 mg, oral, 3x daily PRN bisacodyL, 5 mg, oral, Daily PRN calcium carbonate, 1,000 mg, oral, 2x daily PRN codeine-guaiFENesin, 5 mL, oral, q4h PRN diphenhydrAMINE, 25 mg, oral, q6h PRN furosemide, 20 mg, oral, Daily PRN ipratropium-albuteroL, 3 mL, inhalation, q4h PRN ketorolac, 15 mg, intravenous, q6h PRN naloxone, 0.04 mg, intravenous, q3min PRN naloxone, 0.4 mg, intravenous, q2h PRN ondansetron, 4 mg, oral, q8h PRN polyethylene glycol 3350, 17 g, oral, Daily PRN traMADoL, 50 mg, oral, q8h PRN triamcinolone acetonide, 1 application., topical, Daily PRN Objective VITAL SIGNS FOR PAST 24 Hours ([High] [Low] (Last Recorded Value)): Temp: [36.1 ??C (97 ??F)-37.1 ??C (98.7 ??F)] 37.1 ??C (98.7 ??F) Heart Rate: [62-75] 72 Resp: [16-22] 20 BP: (117-155)/(69-86) 155/86 SpO2: [90 %-95 %] 94 % I/Os LAST 24 HOURS: Intake/Output Summary (Last 24 hours) at 06/21/2024 1733 Last data filed at 06/21/2024 1350 Gross per 24 hour Intake 1220 ml Output 300 ml Net 920 ml PHYSICAL EXAMINATION: GENERAL: Alert morbidly obese female in no apparent distress; SKIN: No rash and no significant discoloration EYES / ENT: Pupils equal, round, Conjunctivae non-ictereric; moist mucous membranes NECK: Supple, no JVD, no adenopathy RESPIRATORY: Clear to auscultation, no wheezing, rales or rhonchi CARDIOVASCULAR: Regular rate rhythm. Normal S1 and S2 ABDOMINAL: Normoactive bowel sounds; nontender, no masses, not distended, no rebound, no guarding MUSCULOSKELETAL: No clubbing or cyanosis; trace pedal edema NEUROLOGIC: Alert and oriented; No gross deficits PSYCH: Normal mood and affect LAB: Lab Results Component Value Date NA 137 06/21/2024 K 4.8 06/21/2024 CL 102 06/21/2024 CO2 24 06/21/2024 BUN 45 (H) 06/21/2024 CREATININE 1.15 (H) 06/21/2024 GLUCOSE 143 (H) 06/21/2024 Lab Results Component Value Date WBC 13.0 (H) 06/19/2024 HGB 11.2 (L) 06/19/2024 HCT 33.8 (L) 06/19/2024 MCV 87.3 06/19/2024 RDW 13.2 06/19/2024 PLT 238 06/19/2024 I have personally reviewed the patient's lab results from the past 24 hours. IMAGING /OTHER STUDIES: ECG 12 lead For Preop? No Result Date: 06/21/2024 All Results Normal sinus rhythm with first degree AVB When compared with ECG of 15-JUN-2024 20:08, No significant change was found Confirmed by Stephanie Hampton ([id number]) on 06/21/2024 10:02:50 AM XR Chest Portable 1 View Result Date: 06/20/2024 All Results Redemonstrated left basilar consolidation. No new abnormality in the chest. If this radiology report contains a blank impression section, it is an incomplete radiology report. Please contact the interpreting radiologist or applicable radiology division as soon as possible to obtain the completed interpretation. Workstation ID: [id number] ECG 12 lead Result Date: 06/16/2024 All Results Sinus rhythm with 1st degree AV block Confirmed by Rosi Garcia ([id number]) on 06/16/2024 10:55:[address] Chest PE Result Date: 06/16/2024 All Results No evidence of pulmonary embolism. Left basilar consolidation along with left lower lobe nodules. This could be related to pneumonia and/or aspiration. Follow-up CT chest in 3 month is recommended to ensure resolution of the nodules. If this radiology report contains a blank impression section, it is an incomplete radiology report. Please contact the interpreting radiologist or applicable radiology division as soon as possible to obtain the completed interpretation. Workstation ID: [id number] Up-to-date CT equipment and radiation dose reduction techniques were employed. CTDIvol: .8 - 21.4 mGy. DLP: 802 mGy-cm. XR Chest 2 vw. Standard Result Date: 06/15/2024 All Results New left lower lobe airspace disease, could represent pneumonia. Unremarkable cardiomediastinal silhouette, given rotation and technique. No pleural effusion or pneumothorax. If this radiology report contains a blank impression section, it is an incomplete radiology report. Please contact the interpreting radiologist or applicable radiology division as soon as possible to obtain the completed interpretation. Workstation ID: [id number] I have personally reviewed the patient's imaging results. * Plan of Care - Zaira Lugo RN - 06/21/2024 2:31 PM EST Case Management Continued Stay Review: Discussed pt in MD rounds. Not ready for dc. Will be here for a few days per hospitalist. RNCM sent msg via [facility] to [facility] letting them know pt not ready for dc and that we will keep themupdated on dc status. Pertinent Clinical impacting hospitalization, level of care update, if indicated BUN 45, creat 1.15, GFR 51, Pro Bnp 2,459. Pt receiving neb treatments and IV abx. Discharge Planning: Discharge Plan: Home w/[facility] - SN, PT, OT * Plan of Care - Elsy Munoz LPN - 06/21/2024 12:44 PM EST Problem: Fall Injury Risk Goal: Absence of Fall and Fall-Related Injury Outcome: Ongoing (interventions implemented as appropriate) Problem: Adult Inpatient Plan of Care Goal: Plan of Care Review Outcome: Ongoing (interventions implemented as appropriate) Goal: Patient-Specific Goal (Individualized) Outcome: Ongoing (interventions implemented as appropriate) Goal: Absence of Hospital-Acquired Illness or Injury Outcome: Ongoing (interventions implemented as appropriate) Goal: Optimal Comfort and Wellbeing Outcome: Ongoing (interventions implemented as appropriate) Goal: Readiness for Transition of Care Outcome: Ongoing (interventions implemented as appropriate) Problem: Hospitalized Older Adult Goal: Optimal Cognitive Function Outcome: Ongoing (interventions implemented as appropriate) Goal: Effective Bowel Elimination Outcome: Ongoing (interventions implemented as appropriate) Goal: Optimal Coping Outcome: Ongoing (interventions implemented as appropriate) Goal: Fluid and Electrolyte Balance Outcome: Ongoing (interventions implemented as appropriate) Goal: Optimal Functional Ability Outcome: Ongoing (interventions implemented as appropriate) Goal: Improved Oral Intake Outcome: Ongoing (interventions implemented as appropriate) Goal: Adequate Sleep/Rest Outcome: Ongoing (interventions implemented as appropriate) Goal: Effective Urinary Elimination Outcome: Ongoing (interventions implemented as appropriate) Patient is alert/oriented, able to make needs known. Patient SR on tele, remaining on 2L O2 NC. Patient started on rocephin per MD order for PNA. Maalox given PRN for indigestion. VSS. Please see flowsheet for additional assessment documentation. * Brief Progress Note - Sun Barba RRT - 06/20/2024 4:36 PM EST Home nebulizer ordered will be delivered to hospital prior to discharge * Plan of Care - Alexa Silva RD - 06/20/2024 3:04 PM EST NUTRITION NOTE Interventions / Recommendations: Cont sodium restricted diet RD follow up prn Nutrition Education: n/a Assessment: Patient seen today for initial assessment. Reason For Assessment: per organizational policy Past Medical History: Diagnosis Date Arthritis Posterior tibial tendinitis History of Posterior tibial tendinitis 2014-09-02 Radial styloid tenosynovitis History of De Quervain's tenosynovitis 2011-07-29 Past Surgical History: Procedure Laterality Date ND ARTHROCENTESIS ASPIR&/INJ MAJOR JT/BURSA W/O US Right History of Arthrocentesis Injection Of Hip Joint Right hip steroid injection ND ARTHROCENTESIS ASPIR&/INJ MAJOR JT/BURSA W/O US Right History of Arthrocentesis Injection Of Hip Joint Right RIGHT HIP INJECTION WITH STEROID ND ARTHROCENTESIS ASPIR&/INJ MAJOR JT/BURSA W/O US Right History of Arthrocentesis Injection Of Hip Joint Right RIGHT HIP INJECTION ND ARTHROCENTESIS ASPIR&/INJ MAJOR JT/BURSA W/O US Right History of Arthrocentesis Injection Of Hip Joint Right RIGHT HIP CORTISONE INJECTION ND KNEE SCOPE,DIAGNOSTIC N/A History of Arthroscopy Knee ND ALVES W/O FACETEC FORAMOT/[facility] 05/23 VRT SEG, CERVICAL N/A History of Laminectomy Lumbar ND LAP,CHOLECYSTECTOMY N/A History of Cholecystectomy Laparoscopic PROCEDURE - HISTORIC N/A History of Lumbar Injection LUMBAR EPIDURAL STEROID INJECTION PROCEDURE - HISTORIC N/A History of Lumbar Injection LUMBAR EPIDURAL STEROID INJECTION PROCEDURE - HISTORIC N/A History of Lumbar Injection LEFT L4 EPIDURAL STEROID INJECTION Patient Summary 73 year old female patient admitted to for PNA. Nutrition Assessment Currently receiving sodium restricted diet, consuming 100% of meals. BMI reflects obese status. MST0 on admission. Current Orders Diet: sodium restricted Supplements: n/a Intake: 100% Food Allergies:NKFA NFPE: not indicated Wt Readings from Last 50 Encounters: 06/20/24 120.7 kg (266 lb) 06/04/24 122.5 kg (270 lb) Labs (date: 06/20) CMP WNL x glu 164, BUN 42, creat 1.17 Pertinent Medications: n/a Food and Drug Interactions: n/a GI: BM 06/18 Skin: WDL Edema: 1+ MST Score= 0 Cultural/sikhism/ethnic preferences addressed as able. Nutrition Diagnosis: Impaired Nutrient Utilization related to Cardiac Dysfunction as evidenced by Clinical Notes. Status: new Goal 1: Adequate oral intake of at least 75% meals upon follow-up. Status: New BMI (Calculated): 42.95 BMI Assessment: BMI greater than 40: obesity grade III Weight Used For Calculations: 60 kg (132 lb 4.4 oz) Estimated Needs: Energy Calorie Requirements: 8292-3703 pam (25-30 pam/kg) Protein (gms/day): 60 g (1.0 g/kg) Fluid Requirements: 1889-6756 ml (25-30 ml/kg) Monitor/Evaluation: Food Intake: meet nutrition needs via PO intake Electrolyte/Renal Profile: WNL Glucose/Endocrine Profile: WNL Gastrointestinal Profile: Bowel regularity. No N, V, diarrhea, constipation Weight: Stable Nutrition-Focused Physical Findings: monitor for changes in skin integrity See flowsheets for additional information. Alexa Silva, MS, RD, LDN Genie Vora : 1950 CSN: [id number] * Plan of Care - Humera Oropeza RN - 06/20/2024 1:13 PM EST Case Management Continued Stay Review Pertinent Clinical impacting hospitalization, level of care update, if indicated: Patient reviewed at MDR rounds, not medically stable for discharge at this time, likely here another day or 2 RN CM updated [facility] via careport Discharge Planning Discharge Barrier: Patient remains on IV ABX and nebs. Patient remains on supplemental oxygen, ProBNP 2,459, respiratory culture remains pending Discharge Plan: [facility] PT/OT/SN Choice list (with star ratings) provided / discussed, if indicated (Y or NA): * Assessment & Plan Note - Rosanna Marie NP - 06/20/2024 1:07 PM ESTAssociated Problem(s): Elevated serum creatinine Slight bump in creatinine today likely due to IV Lasix.. Lasix will be discontinued tomorrow. Repeat BMP * Plan of Care - Lilly Shipman RN - 06/20/2024 1:01 PM EST Problem: Adult Inpatient Plan of Care Goal: Plan of Care Review Outcome: Ongoing (interventions implemented as appropriate) * Assessment & Plan Note - Rosanna Marie NP - 06/20/2024 12:57 PM ESTAssociated Problem(s): Severe asthma with exacerbation Hx of Asthma as well Now with asthma/COPD exacerbation * Assessment & Plan Note - Rosanna Marie NP - 06/20/2024 12:57 PM ESTAssociated Problem(s): Lumbar canal stenosis Patient has an appointment at the end of this week with a spine surgeon. * Assessment & Plan Note - Rosanna Marie NP - 06/20/2024 12:57 PM ESTAssociated Problem(s): Hypothyroidism Continue with levothyroxine 112 mcg daily. TSH WNL * Assessment & Plan Note - Rosanna Marie NP - 06/20/2024 12:54 PM ESTAssociated Problem(s): Pneumonia due to organism CT chest shows no evidence of PE. Left bibasilar consolidation along with left lower lobe nodules. This could relate to pneumonia and/or aspiration. A chest x-ray ordered on 06/18/2024 resulted today 06/20/2024 showing with demonstration of left bibasilar consolidation. Continue with IV Rocephin. Patient has finished Zithromax Blood culture negative to date Urine Legionella and streptococcal pneumonia, and mycoplasma pneumonia negative Sputum culture pending * Assessment & Plan Note - Rosanna Marie NP - 06/20/2024 12:49 PM ESTAssociated Problem(s): Diastolic CHF, acute (CMS/HCC) (HCC) Patient developed increased requirement for oxygen yesterday. A chest x-ray ordered on 06/18/2024 resulted today 06/20/2024 showing with demonstration of left bibasilar consolidation. No new abnormality in the chest. CHF secondary to likely pneumonia and COPD exacerbation. Echocardiogram on 06/04/2024 - LVEF 65%. Grade 1 left ventricular diastolic dysfunction. -Left atrium is moderately dilated -Mild tricuspid regurgitation -Pulmonary artery systolic pressure is upper normal. proBNP elevated 2998 IV Lasix 40 mg was started I's and O's Has diuresed 3000 mL Daily weight Down 1 pound Sodium restriction diet Cardiology consult---> continue IV Lasix today and DC Lasix tomorrow. Troponin 14. proBNP improved to 2459 * Assessment & Plan Note - Rosanna Marie NP - 06/20/2024 12:49 PM ESTAssociated Problem(s): Chronic obstructive pulmonary disease with acute exacerbation (HCC) Patient was a former smoker. No formal diagnosis of COPD. Lungs with bilateral wheezes and rhonchi. Continue with scheduled DuoNeb, and Pulmicort. Continue with antitussives. I have ordered a respiratory consult for home nebulizer machine at discharge. * Assessment & Plan Note - Rosanna Marie NP - 06/20/2024 12:49 PM ESTAssociated Problem(s): Acute respiratory failure with hypoxia (HCC) Patient does not use home O2. On admission patient was saturating 88% and required 3 to 4 L of O2. She was also tachypneic up to 22 respiration per minute. Today patient was able to be tapered to 2L of O2 * Assessment & Plan Note - Rosanna Marie NP - 06/20/2024 12:48 PM ESTAssociated Problem(s): A-fib (CMS/HCC) (HCC) Continue with carb, flecainide and Eliquis. * Plan of Care - Mariajose Calvillo RN - 06/20/2024 11:07 AM EST COPD and CHF Teaching Admission Date: 06/15/24 Admission DX: Pneumonia, New COPD, New CHF Readmission in 30 days? No PCP: Bijal Fox NP Historic Interpreter: None - this typewriter aligner will ask the PCP to make a referral to Dr. Crystal after discharge. Inventory Control Specialist: None - this typewriter aligner will make a TCM with Mabel at [place]. The patient would like f/up withDr. Stephanie strickland. Active Services at Home: [facility] - SN/PT/OT - The patient was at [facility] from 06/04/24 - 06/13/24 Resources Given: [facility] COPD educational booklet, [facility] Heart Failure educational literature, the [facility] Heart Failure weight/blood pressure tracking booklet, the [facility] Heart Failure zone guidelines and this typewriter aligner's business card. Equipment at Home: Oxygen - 2L - [employer]; pulse oximeter; B/P cuff; scale; CPAP; inhalers This typewriter aligner sent a secure chat 06/20/24 at 12:27 to the Hospitalist notifying them she does not havea home nebulizer and to order one along with the medications at [place]. Learners [x]Patient []Family []Significant Other []Caregiver []Other Readiness [x]Eager [x]Acceptance []Nonacceptance []Refuses []Other Method [x]Explanation [x]Demonstration [x]Handout [][employer] Leader []Video []Class/Group []Teach-back Response [x]Verbalizes Understanding []Demonstrated Understanding []Needs Reinforcement []No Evidence of Learning []Refused Teaching []Indicates Understanding in Bedside Education Provided: [x]Know Your Triggers Cold weather, seasonal changes, infections, smoking (or second hand smoke), animals, strong chemicals/odors can be triggers. Avoid where possible, wear a disposable mask when outside or in a large crowd. [x]Infection Prevention Infection is the most common cause for exacerbation. A change in sputum amount, color, or consistency may indicate an infection. Offer the patient assistance to quit smoking. Instruct patient to washhands with soap and water often. Use panel machine tender when out in the community. Influenza, COVID, and pneumococcal vaccinations should be offered and encouraged. [x]Oxygen Safety Supplemental oxygen may reduce dyspnea, increase exercise tolerance and improve survival rate. The doctor will order how much oxygen to use and how often to use it. Your oxygen equipment provider will give you instructions on how to safely use the oxygen. Do not smoke with oxygen in use. Keep oxygen away from open flames, such as gas stoves, candles and fireplace. [x]Provider Follow-Up Appointments Encourage keeping follow-up appointments. They are important for monitoring recovery and progress. [x]Breathing Exercises Pursed-lip breathing (in through your nose and out through your mouth) and diaphragm breathing helprelax your muscles in your chest, shoulders and neck to provide a more effective breath. [x]Pulmonary Hygiene Airway clearance techniques may help loosen and clear mucus. Teach the patient how to effectively deep breath, cough and perform airway clearance techniques. Drink warm liquids to thin out secretions. []Tobacco Use, Smoke Exposure Smoking, tobacco use and smoking exposure is harmful to everyone's health. Ask if the patient is ready to quit smoking. Provide information on available programs. Patient does not smoke. [x]Medications Teach learner(s) the importance of taking all medications at prescribed dosage and frequency after discharge from the hospital. Encourage learner(s) not to run out or stop taking medications and to call the doctor immediately when the medication supply is low. [x]Energy Conservation Controlled breathing may be helpful. Pace activities, such as dressing, showering, bathing or grooming. Use a seated position to perform activities when possible. Balance activity with periods of rest. Assistive devices (e.g., grab bars in bathroom, railings, ramps) in the home may be helpful. [x]Fluid/Food Intake, Weight Maintaining optimal nutrition and hydration is important for healing and overall health. Food and fluid intake should be optimized with small, frequent, nutritious meals. A full abdomen can restrict breathing. Keeping a healthy weight takes pressure off the lungs. Encourage drinking enough water sothat urine output is clear, pale yellow. This will help keep mucus thin. [x]Coping/Sleep Complementary therapy, such as mindfulness, yoga, guided imagery, journaling and relaxation techniques, may be helpful to manage stress. Getting enough sleep promotes healing. Avoid caffeinated beverages after lunchtime. Try not to nap in the daytime so you can sleep a full night. Don't let your pets sleep in bed with you. Use extra or a wedge pillow to keep your head elevated. From EMR: 73-year-old female with a past medical history of HTN, HLD, A-fib, spinal stenosis, arthritis, obesity, anxiety, depression presented to the hospital with a chief complaint of cough. Patient reported that she has been having cough for about 7 days with yellow sputum production. Reports subjective fevers and chills. Denies any significant shortness of breath. Reports she had asthma as a childhood. Denies any to smoking history. Patient denies any GI or symptoms. ER course: Per ER team, patient on presentation noted to be short of breath, hypoxic, placed on supplemental oxygen, not in respiratory chest; very slightly diminished breath sounds but no significant wheezing;given nebulizations and steroids. Chest x-ray showed findings concerning for pneumonia. CT chest showed no evidence of PE. This Chronic Disease Nurse Latex Thread Machine Operator met with the patient at the bedside. Explained role. We discussed her new diagnoses of both CHF and COPD and reviewed the guidelines for both. 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 Demographics verified. * Plan of Care - Debora Burnham RN - 06/20/2024 12:07 AM EST Problem: Fall Injury Risk Goal: Absence of Fall and Fall-Related Injury Outcome: Ongoing (interventions implemented as appropriate) Problem: Adult Inpatient Plan of Care Goal: Plan of Care Review Outcome: Ongoing (interventions implemented as appropriate) Goal: Patient-Specific Goal (Individualized) Outcome: Ongoing (interventions implemented as appropriate) Goal: Absence of Hospital-Acquired Illness or Injury Outcome: Ongoing (interventions implemented as appropriate) Goal: Optimal Comfort and Wellbeing Outcome: Ongoing (interventions implemented as appropriate) Goal: Readiness for Transition of Care Outcome: Ongoing (interventions implemented as appropriate) Problem: Hospitalized Older Adult Goal: Optimal Cognitive Function Outcome: Ongoing (interventions implemented as appropriate) Goal: Effective Bowel Elimination Outcome: Ongoing (interventions implemented as appropriate) Goal: Optimal Coping Outcome: Ongoing (interventions implemented as appropriate) Goal: Fluid and Electrolyte Balance Outcome: Ongoing (interventions implemented as appropriate) Goal: Optimal Functional Ability Outcome: Ongoing (interventions implemented as appropriate) Goal: Improved Oral Intake Outcome: Ongoing (interventions implemented as appropriate) Goal: Adequate Sleep/Rest Outcome: Ongoing (interventions implemented as appropriate) Goal: Effective Urinary Elimination Outcome: Ongoing (interventions implemented as appropriate) * Plan of Care - Lisa Villegas RN - 06/19/2024 7:37 PM EST Problem: Adult Inpatient Plan of Care Goal: Plan of Care Review Outcome: Ongoing (interventions implemented as appropriate) Patient is A+O x3, ambulating independently. Patient is still requiring O2, cough is still present as well. Patient received IV lasix, bilaterally LE swelling decreased. Scheduled nebs received. Intermittent left sided pain in ribs due to cough. Safety precautions in place. * Plan of Care - Humera Oropeza RN - 06/19/2024 3:18 PM EST Case Management Continued Stay Review Pertinent Clinical impacting hospitalization, level of care update, if indicated: Patient reviewed at MDR rounds, not medically stable for discharge at this time Discharge Planning Discharge Barrier: Chest xray pending, elvated BNP, currently on IV Lasix . cardiology consulted Discharge Plan: [facility] SN/PT/OT, updated via careport Choice list (with star ratings) provided / discussed, if indicated (Y or NA): * Assessment & Plan Note - Rosanna Marie NP - 06/19/2024 12:40 PM ESTAssociated Problem(s): Chronic obstructive pulmonary disease with acute exacerbation (HCC) Patient was a former smoker. No formal diagnosis of COPD. Lungs with bilateral wheezes and rhonchi. Continue with scheduled DuoNeb, and Pulmicort. Patient does not use home O2. Currently saturating 94% on 3L of O2. Continue with antitussives. * Assessment & Plan Note - Rosanna Marie NP - 06/19/2024 12:40 PM ESTAssociated Problem(s): Acute respiratory failure with hypoxia (HCC) Patient does not use home O2. On admission patient was saturating 88% and required 3 to 4 L of O2. She was also tachypneic up to 22 respiration per minute. Today patient is using 3 L of O2 and saturating 94%. * Assessment & Plan Note - Rosanna Marie NP - 06/19/2024 12:40 PM ESTAssociated Problem(s): A-fib (CMS/HCC) (HCC) Continue with carb, flecainide and Eliquis. * Assessment & Plan Note - Rosanna Marie NP - 06/19/2024 12:32 PM ESTAssociated Problem(s): Severe asthma with exacerbation Hx of Asthma as well Now with asthma/COPD exacerbation * Assessment & Plan Note - Rosanna Marie NP - 06/19/2024 12:32 PM ESTAssociated Problem(s): Pneumonia due to organism CT chest shows no evidence of PE. Left bibasilar consolidation along with left lower lobe nodules. This could relate to pneumonia and/or aspiration. Continue with IV Rocephin. Patient has finished Zithromax Blood culture negative to date Urine Legionella and streptococcal pneumoniae pending Will order sputum culture Yesterday patient required 2 L of O2 today and was increased to 3 L-----> will repeat chest x-ray. CT PE on admission does not show any PE. Will check BNP. * Assessment & Plan Note - Rosanna Marie NP - 06/19/2024 12:31 PM ESTAssociated Problem(s): Lumbar canal stenosis Patient has an appointment at the end of this week with a spine surgeon. * Assessment & Plan Note - Rosanna Marie NP - 06/19/2024 12:31 PM ESTAssociated Problem(s): Hypothyroidism Continue with levothyroxine 112 mcg daily. TSH WNL * Assessment & Plan Note - Rosanna Marie NP - 06/19/2024 12:31 PM ESTAssociated Problem(s): Diastolic CHF, acute (CMS/HCC) (HCC) Patient developed increased requirement for oxygen yesterday. A chest x-ray was ordered but result is pending at this time. CHF secondary to likely pneumonia and COPD exacerbation. Echocardiogram on 06/04/2024 - LVEF 65%. Grade 1 left ventricular diastolic dysfunction. -Left atrium is moderately dilated -Mild tricuspid regurgitation -Pulmonary artery systolic pressure is upper normal. proBNP elevated 2998 Start IV Lasix 40 mg daily I's and O's Daily weight Sodium restriction diet Cardiology consult * Assessment & Plan Note - Rosanna Marie NP - 06/19/2024 12:27 PM ESTAssociated Problem(s): Acute pulmonary edema (HCC) (Resolved 06/19/2024) * Plan of Care - Celeste Tim LPN - 06/18/2024 11:55 PM EST Problem: Fall Injury Risk Goal: Absence of Fall and Fall-Related Injury Outcome: Ongoing (interventions implemented as appropriate) Problem: Adult Inpatient Plan of Care Goal: Optimal Comfort and Wellbeing Outcome: Ongoing (interventions implemented as appropriate) Problem: Hospitalized Older Adult Goal: Adequate Sleep/Rest Outcome: Ongoing (interventions implemented as appropriate) Patient alert, oriented, and able to make her needs known. Slept throughout the night with CPAP on for a short period of time due to feeling claustrophobic. Patient was teary during the night - anxious about her lab results. She was compliant with all medications. Requested pain medication for her chest discomfort - with good effect. * Assessment & Plan Note - Rosanna Marie NP - 06/18/2024 1:43 PM ESTAssociated Problem(s): Acute respiratory failure with hypoxia (HCC) Patient does not use home O2. On admission patient was saturating 88% and required 3 to 4 L of O2. She was also tachypneic up to 22 respiration per minute. Today patient is using 3 L of O2 and saturating 92%. * Plan of Care - Humera Oropeza RN - 06/18/2024 1:41 PM EST Case Management Continued Stay Review Pertinent Clinical impacting hospitalization, level of care update, if indicated: Patient reviewed at MDR rounds, not medically stable for d/c at this time, likely to remain anotherday. [facility] updated via Careport Discharge Planning Discharge Barrier: Pt remains on supplemental oxygen, no oxygen at [facility], currently on tele with afib. Pulmonology consulted, chest xray pending Discharge Plan: Home with [facility] SN/PT/OT Choice list (with star ratings) provided / discussed, if indicated (Y or NA): * Assessment & Plan Note - Rosanna Marie NP - 06/18/2024 1:37 PM ESTAssociated Problem(s): Pneumonia due to organism CT chest shows no evidence of PE. Left bibasilar consolidation along with left lower lobe nodules. This could relate to pneumonia and/or aspiration. Will continue with IV Rocephin and Zithromax. Blood culture negative to date Urine Legionella and streptococcal pneumoniae pending Will order sputum culture Yesterday patient required 2 L of O2 today and was increased to 3 L-----> will repeat chest x-ray. CT PE on admission does not show any PE. Will check BNP. * Assessment & Plan Note - Rosanna Marie NP - 06/18/2024 1:34 PM ESTAssociated Problem(s): Lumbar canal stenosis Patient has an appointment at the end of this week with a spine surgeon. * Assessment & Plan Note - Rosanna Marie NP - 06/18/2024 1:34 PM ESTAssociated Problem(s): Hypothyroidism Continue with levothyroxine 112 mcg daily. TSH WNL * Assessment & Plan Note - Rosanna Marie NP - 06/18/2024 1:34 PM ESTAssociated Problem(s): HLD (hyperlipidemia) (Resolved 06/18/2024) * Assessment & Plan Note - Rosanna Marie NP - 06/18/2024 1:30 PM ESTAssociated Problem(s): Chronic obstructive pulmonary disease with acute exacerbation (HCC) Patient was a former smoker. No formal diagnosis of COPD. Lungs with bilateral wheezes and rhonchi. Continue with scheduled DuoNeb, and Pulmicort. Patient does not use home O2. Currently saturating 97% on 2 L of O2. Will add antitussives. Give IV magnesium x 1. * Assessment & Plan Note - Rosanna Marie NP - 06/18/2024 1:29 PM ESTAssociated Problem(s): A-fib (CMS/HCC) (HCC) Continue with carb, flecainide and Eliquis. * Plan of Care - Celeste Tim LPN - 06/17/2024 11:51 PM EST Problem: Fall Injury Risk Goal: Absence of Fall and Fall-Related Injury 06/17/2024 2351 by Celeste Tim LPN Outcome: Ongoing (interventions implemented as appropriate) 06/17/20242246 by Celeste Tim LPN Outcome: Ongoing (interventions implemented as appropriate) Problem: Adult Inpatient Plan of Care Goal: Optimal Comfort and Wellbeing 06/17/2024 2351 by Celeste Tim LPN Outcome: Ongoing (interventions implemented as appropriate) 06/17/20242246 by Celeste Tim LPN Outcome: Ongoing (interventions implemented as appropriate) Goal: Readiness for Transition of Care Outcome: Ongoing (interventions implemented as appropriate) Patient alert, oriented, and able to make her needs known. Continues with schedule neb treatments, IV abt and solumedrol. Utilizing ice to her chest for costochondritis with good effect. Slept throughout the night with no voiced concerns. Safety measures in place and maintained. * Plan of Care - Celeste Tim LPN - 06/17/2024 10:47 PM EST Problem: Fall Injury Risk Goal: Absence of Fall and Fall-Related Injury Outcome: Ongoing (interventions implemented as appropriate) Problem: Adult Inpatient Plan of Care Goal: Optimal Comfort and Wellbeing Outcome: Ongoing (interventions implemented as appropriate) Goal: Readiness for Transition of Care Outcome: Ongoing (interventions implemented as appropriate) * Assessment & Plan Note - Rosanna Marie NP - 06/17/2024 2:03 PM ESTAssociated Problem(s): Hypothyroidism Continue with levothyroxine 112 mcg daily. * Assessment & Plan Note - Rosanna Marie NP - 06/17/2024 2:01 PM ESTAssociated Problem(s): HLD (hyperlipidemia) (Resolved 06/18/2024) * Assessment & Plan Note - Rosanna Marie NP - 06/17/2024 2:00 PM ESTAssociated Problem(s): Lumbar canal stenosis Patient has an appointment at the end of this week with a spine surgeon. * Assessment & Plan Note - Rosanna Marie NP - 06/17/2024 1:56 PM ESTAssociated Problem(s): A-fib (CMS/HCC) (HCC) Continue with carb, flecainide and Eliquis. * Assessment & Plan Note - Rosanna Marie NP - 06/17/2024 1:55 PM ESTAssociated Problem(s): Chronic obstructive pulmonary disease with acute exacerbation ([facility]) Patient was a former smoker. No formal diagnosis of COPD. Lungs with bilateral wheezes and rhonchi. Will add scheduled DuoNeb, and Pulmicort. Patient does not use home O2. Currently saturating 97% on 2 L of O2. Will add antitussives. Give IV magnesium x 1. * Assessment & Plan Note - Rosanna Marie NP - 06/17/2024 1:55 PM ESTAssociated Problem(s): Pneumonia due to organism CT chest shows no evidence of PE. Left bibasilar consolidation along with left lower lobe nodules. This could relate to pneumonia and/or aspiration. Will continue with IV Rocephin and Zithromax. Get blood cultures today. * Plan of Care - Elise Mills LPN - 06/17/2024 1:19 PM EST Problem: Fall Injury Risk Goal: Absence of Fall and Fall-Related Injury Outcome: Ongoing (interventions implemented as appropriate) Problem: Adult Inpatient Plan of Care Goal: Plan of Care Review Outcome: Ongoing (interventions implemented as appropriate) Goal: Patient-Specific Goal (Individualized) Outcome: Ongoing (interventions implemented as appropriate) Goal: Absence of Hospital-Acquired Illness or Injury Outcome: Ongoing (interventions implemented as appropriate) Goal: Optimal Comfort and Wellbeing Outcome: Ongoing (interventions implemented as appropriate) Goal: Readiness for Transition of Care Outcome: Ongoing (interventions implemented as appropriate) Patient alert and oriented x4, LSD with in/ex wheezing on 2L o2 baseline no o2 use, cough is nonproductive c/o persistent cough PRN cough syrup given with good effect, +Bsx4, +1 edema to bilateral lower extremities. C/O left sided rib pain r/t coughing PRN ultram given with good effect. Patient ambulating to the bathroom independently and tolerating eating and drinking. * Plan of Care - Joana Sanchez RN - 06/17/2024 11:51 AM EST Case Management Admission Note: Discussed in MDR, patient admitted with PN, will be here another 1-2 days per provider. On 2L O2 NCand IV antibiotics, solumedrol, and Lasix. Met with patient at the bedside, she is alert alert and oriented x 3. She states she has services with [facility], would like to DC home with services. Provided her with resources for [facility] and MOW. Demographics verified/Changes made: Confirmed. Active PCP/Recently seen: Yes. Medication issues: None. Transportation home: Son. Lives with: Alone. Home Type: Apartment. Current Services: [facility]. Oxygen at home: 2L O2, new. DME: Walker, care. Stairs outside: 12-optional. Stairs inside: 0 ADLs: Was independent. IADLs: Was independent-will need assist, provided her with information for [place]. HCP: Left at the bedside for patient to complete. Support Person/Caregiver/Guardian: Son. Choice list (with star ratings) provided / discussed, if indicated (Y or NA): Y Referral Placed Into [facility]: [facility]-Patient is active with SN/PT/OT. * Plan of Care - Rossy Don LPN - 06/17/2024 2:33 AM EST Problem: Fall Injury Risk Goal: Absence of Fall and Fall-Related Injury Outcome: Ongoing (interventions implemented as appropriate) Patient arrived from [place] [facility] after 11pm. A/Ox4. VSS. Lung sounds with wheezing, 2L O2, shortness of breath with exertion, occasional congested cough. Skin is intact. C/O pain and received tramadol and dilaudid per JUL. See nursing flowsheets for further documentation. * Brief Progress Note - Romaine Manuel MD - 06/16/2024 12:45 PM EST Patient seen and examined. Discussed with RN. Today's H&P reviewed. On exam, coarse breath sounds and diffuse wheezing throughout the lung jalloh. She is a former smoker and does not carry the diagnosis of COPD. Will start her on IV Solu-Medrol, nebs in addition to antibiotics and oxygen supplementation. Will request pulmonology consult. * Assessment & Plan Note - Mj Mendenhall MD - 06/16/2024 4:03 AM EST Associated Problem(s): Pneumonia due to organism CT chest shows no evidence of PE Empirically covered with ceftriaxone and azithromycin Follow-up cultures Supplemental oxygen as needed Trending pulse oximetry when ready for discharge DuoNebs as needed documented in this encounter Plan of Treatment Upcoming Encounters Date Type Department Care Team (Late st Contact Info) Description 08/01/2024 2:00 PM EDT Follow-Up [facility] Nephrology [address] [facility] [address] [place] [address] John Hendricks MD [address] [place] [id number] 01/08/2025 10:00 AM EDT Follow-Up [address] Cardiology 100 [facility] [address] [place] [address] Mabel Onofre, MEY [address] [facility] [address] [place] [address] Scheduled Orders Name Type Priority Associated Diagnoses Orde r Schedule Respiratory Culture w/Gram Stain Microbiology Routine Once for 1 Occurrences starting 06/16/2024 until 06/16/2024 documented as of this encounter Procedures * Due to [place] state law, this organization might not be sharing negative HIV tests. Procedure Name Priority Date/Time Associated Diagnosis Comments XR ABDOMEN 1 VW STAT 06/26/2024 12:39 PM EST CBC Routine 06/26/2024 6:22 AM EST BASIC METABOLIC PANEL Routine 06/26/2024 6:22 AM EST CBC Routine 06/25/2024 7:04 AM EST BASIC METABOLIC PANEL Routine 06/25/2024 7:04 AM EST BASIC METABOLIC PANEL Routine 06/24/2024 12:58 PM EST ECG 12-LEAD Routine 06/24/2024 9:50 AM EST CBC Routine 06/24/2024 7:27 AM EST BASIC METABOLIC PANEL Routine 06/24/2024 7:27 AM EST POTASSIUM Routine 06/23/2024 10:05 AM EST CBC Routine 06/23/2024 7:13 AM EST BASIC METABOLIC PANEL Routine 06/23/2024 7:13 AM EST XR CHEST 2 VW Routine 06/22/2024 4:27 PM EST EXTRA TUBES Routine 06/22/2024 6:53 AM EST LAVENDER TOP Routine 06/22/2024 6:53 AM EST BASIC METABOLIC PANEL Routine 06/22/2024 6:38 AM EST ECG 12-LEAD Routine 06/21/2024 7:26 AM EST BASIC METABOLIC PANEL Routine 06/21/2024 6:10 AM EST TROPONIN T HIGH SENSITIVITY Routine 06/20/2024 10:19 AM EST N-TERMINAL PROBRAIN NATRIURETIC PEPTIDE Routine 06/20/2024 10:19 AM EST BASIC METABOLIC PANEL Timed 06/20/2024 8:53 AM EST RESPIRATORY CULTURE W/GRAM STAIN Routine 06/20/2024 7:37 AM EST CBC Routine 06/19/2024 6:15 AM EST BASIC METABOLIC PANEL Routine 06/19/2024 6:15 AM EST STREPTOCOCCUS PNEUMONIAE ANTIGEN URINE STAT 06/18/2024 6:44 PM EST LEGIONELLA ANTIGEN, URINE STAT 06/18/2024 6:44 PM EST XR CHEST PORTABLE 1 VIEW Routine 06/18/2024 2:12 PM EST N-TERMINAL PROBRAIN NATRIURETIC PEPTIDE STAT 06/18/2024 2:12 PM EST CBC AUTO DIFFERENTIAL Routine 06/17/2024 7:03 AM EST TSH Add-On 06/17/2024 7:03 AM EST COMPREHENSIVE METABOLIC PANEL Routine 06/17/2024 7:03 AM EST EXTRA TUBES Routine 06/16/2024 7:54 AM EST LAVENDER TOP Routine 06/16/2024 7:54 AM EST LIGHT GREEN TOP Routine 06/16/2024 7:54 AM EST MYCOPLASMA PNEUMONIAE ANTIBODIES, IGG/IGM Routine 06/16/2024 7:[address] CHEST PULMONARY EMBOLISM W CONTRAST STAT 06/15/2024 11:49 PM EST TROPONIN T HIGH SENSITIVITY Timed 06/15/2024 10:17 PM EST BLOOD CULTURE STAT 06/15/2024 10:17 PM EST BLOOD CULTURE STAT 06/15/2024 10:17 PM EST LACTIC ACID, PLASMA STAT 06/15/2024 1 0:17 PM EST BLOOD GAS, VENOUS STAT 06/15/2024 10: 17 PM EST XR CHEST 2 VW STAT 06/15/2024 8:19 PM EST ECG 12-LEAD STAT 06/15/2024 8:08 PM EST TROPONIN T HIGH SENSITIVITY Timed 06/15/2024 8:00 PM EST N-TERMINAL PROBRAIN NATRIURETIC PEPTIDE STAT 06/15/2024 8:00 PM EST CBC AUTO DIFFERENTIAL STAT 06/15/2024 8:00 PM EST BASIC METABOLIC PANEL STAT 06/15/2024 8:00 PM EST MVL QS - COVID-19, FLU A/B & RSV RNA PCR, SYMPTOMATIC STAT 06/15/2024 7:58 PM EST HEART & VASCULAR - SCANNED 06/15/2024 HEART & VASCULAR - SCANNED 06/15/2024 HEART & VASCULAR - SCANNED 06/15/2024 documented in this encounter Results * Due to [place] state law, this organization might not be sharing negative HIV tests. * X-Ray Abdomen 1 View (06/26/2024 12:39 PM EST) Anatomical Region Laterality Modality Body Radiographic Minda ging 06/26/2024 2:03 PM EST Impressions 06/26/2024 2:05 PM EST FINDINGS/IMPRESSION: Mild fecal residue throughout the colon. Multiple surgical clips over the RUQ. ?? Lower lumbar DJD, laminectomy ??and fusion from L3 to and including S1. Total hip replacement on the right as well. If this radiology report contains a blank impression section, it is an incomplete radiology report. ??Please contact the interpreting radiologist or applicable radiology division as soon as possible to obtain the completed interpretation. ? Workstation ID: [id number] Narrative 06/26/2024 2:05 PM EST EXAMINATION: ??XR ABDOMEN 1 VW INDICATION: RLQ abdominal pain, constipation COMPARISONS: None Resulting Agency Comment [id number] Procedure Note Calvin Katz MD - 06/26/2024 EXAMINATION: XR ABDOMEN 1 VW INDICATION: RLQ abdominal pain, constipation COMPARISONS: None IMPRESSION: FINDINGS/IMPRESSION: Mild fecal residue throughout the colon. Multiple surgical clips over theRUQ. Lower lumbar DJD, laminectomy and fusion from L3 to and including S1.Total hip replacement on the right as well. If this radiology report contains a blank impression section, it is anincomplete radiology report. Please contact the interpreting radiologistor applicable radiology division as soon as possible to obtain thecompleted interpretation. Workstation ID: [id number] us Tia Oh SQUIRREL WORKER IMG XR PROCEDURES Final Result * (ABNORMAL) CBC (06/26/2024 6:22 AM EST) WBC 15.0(H) 4.8 - 10.8 10*3/uL 06/26/2024 6:42 AM EST [facility] RBC 4.51 4.20 - 5.40 10*6/uL 06/26/2024 6:42 AM EST [facility] Hemoglobin 13.1 11.7 - 15.5 g/dL 06/26/2024 6:42 AM EST [facility] Hematocrit 40.5 35.7 - 45.8 % 06/26/2024 6:42 AM EST [facility] MCV 89.8 81.0 - 99.0 fL 06/26/2024 6:42 AM EST [facility] MCH 29.0 26.0 - 34.0 pg 06/26/2024 6:42 AM EST [facility] MCHC 32.3 31.0 - 36.0 g/dL 06/26/2024 6:42 AM EST [facility] RDW 13.2 12.0 - 15.0 % 06/26/2024 6:42 AM EST [facility] Platelets 220 140 - 440 10*3/uL 06/26/2024 6:42 AM EST [facility] MPV 9.4 9.4 - 12.3 fL 06/26/2024 6:42 AM [facility] RDW Standard Deviation 43.5 36.4 - 46.3 fL 06/26/2024 6:42 AM [facility] Blood Structure of peripheral vein / Unknown Venipuncture / Unknown 06/26/2024 6:22 AM EST 06/26/2024 6:39 AM EST Olivia Arteaga NP LAB BLOOD ORDERABLES Final Result [facility] [address] [place] [id number], * (ABNORMAL) Basic Metabolic Panel (06/26/2024 6:22 AM EST) NA 139 136 - 145 mmol/L 06/26/2024 7:31 AM EST [facility] K 5.4(H) 3.5 - 5.1 mmol/L 06/26/2024 7:31 AM EST [facility] Cl 101 98 - 109 mmol/L 06/26/2024 7:31 AM EST [facility] CO2 30 22 - 32 mmol/L 06/26/2024 7:31 AM EST [facility] BUN 33(H) 8 - 23 mg/dL 06/26/2024 7:31 AM EST [facility] Creatinine 1.24(H) 0.50 - 1.12 mg/dL 06/26/2024 7:31 AM EST [facility] Glucose 85 60 - 99 mg/dL 06/26/2024 7:31 AM EST [facility] Calcium 9.0 8.4 - 10.4 mg/dL 06/26/2024 7:31 AM EST [facility] Anion Gap 13 >=0 06/26/2024 7:31 AM EST [facility] eGFR 46(L) >=60 mL/min/1. 73m2 06/26/2024 7:31 AM EST [facility] Comment:The estimated glomer ular [...] peripheral vein / Unknown Venipuncture / Unknown 06/26/2024 6:22 AM EST 06/26/2024 6:39 AM EST us Olivia Arteaga NP LAB BLOOD ORDERABLES Final Result [facility] [address] [place] [id number], [place] [phone] * (ABNORMAL) CBC (06/25/2024 7:04 AM EST) WBC 14.6(H) 4.8 - 10.8 10*3/uL 06/25/2024 7:32 AM EST [facility] RBC 4.09(L) 4.20 - 5.40 10*6/uL 06/25/2024 7:32 AM EST [facility] Hemoglobin 12.0 11.7 - 15.5 g/dL 06/25/2024 7:32 AM EST [facility] Hematocrit 36.0 35.7 - 45.8 % 06/25/2024 7:32 AM EST [facility] MCV 88.0 81.0 - 99.0 fL 06/25/2024 7:32 AM EST [facility] MCH 29.3 26.0 - 34.0 pg 06/25/2024 7:32 AM EST [facility] MCHC 33.3 31.0 - 36.0 g/dL 06/25/2024 7:32 AM EST [facility] RDW 13.2 12.0 - 15.0 % 06/25/2024 7:32 AM EST [facility] Platelets 205 140 - 440 10*3/uL 06/25/2024 7:32 AM EST [facility] MPV 9.6 9.4 - 12.3 fL 06/25/2024 7:32 AM EST [facility] RDW Standard Deviation 42.6 36.4 - 46.3 fL 06/25/2024 7:32 AM EST [facility] Blood Structure of peripheral vein / Unknown Venipuncture / Unknown 06/25/2024 7:04 AM EST 06/25/2024 7:28 AM EST us Olivia Arteaga NP LAB BLOOD ORDERABLES Final Result [facility] [address] [place] [id number], [place] [phone] * (ABNORMAL) Basic Metabolic Panel (06/25/2024 7:04 AM EST) NA 135(L) 136 - 145 mmol/L 06/25/2024 8:00 AM EST [facility] K 5.1 3.5 - 5.1 mmol/L 06/25/2024 8:00 AM EST [facility] Cl 100 98 - 109 mmol/L 06/25/2024 8:00 AM EST [facility] CO2 28 22 - 32 mmol/L 06/25/2024 8:00 AM EST [facility] BUN 34(H) 8 - 23 mg/dL 06/25/2024 8:00 AM [facility] Creatinine 1.18(H) 0.50 - 1.12 mg/dL 06/25/2024 8:00 AM [facility] Glucose 86 60 - 99 mg/dL 06/25/2024 8:00 AM [facility] Calcium 8.7 8.4 - 10.4 mg/dL 06/25/2024 8:00 AM [facility] Anion Gap 12 >=0 06/25/2024 8:00 AM [facility] eGFR 49(L) >=60 mL/min/1. 73m2 06/25/2024 8:00 AM [facility] Comment:The estimated glomer ular filtration [...] peripheral vein / Unknown Venipuncture / Unknown 06/25/2024 7:04 AM EST 06/25/2024 7:32 AM EST Olivia Kincaidquez [employer]IRREL WORKER LAB BLOOD ORDERABLES Final Result [facility] [address] [facility] [address] [place] [address], * (ABNORMAL) Basic metabolic panel (06/24/2024 12:58 PM EST) NA 134(L) 136 - 145 mmol/L 06/24/2024 1:53 PM EST [facility] K 5.3(H) 3.5 - 5.1 mmol/L 06/24/2024 1:53 PM EST [facility] Comment:ALL DELTAS REVIEWED Cl 100 98 - 109 mmol/L 06/24/2024 1:53 PM EST [facility] CO2 24 22 - 32 mmol/L 06/24/2024 1:53 PM EST [facility] BUN 37(H) 8 - 23 mg/dL 06/24/2024 1:53 PM EST [facility] Creatinine 1.17(H) 0.50 - 1.12 mg/dL 06/24/2024 1:53 PM EST [facility] Glucose 129(H) 60 - 99 mg/dL 06/24/2024 1:53 PM EST [facility] Calcium 9.1 8.4 - 10.4 mg/dL 06/24/2024 1:53 PM EST [facility] Anion Gap 15 >=0 06/24/2024 1:53 PM EST [facility] eGFR 50(L) >=60 mL/min/1. 73m2 06/24/2024 1:53 PM EST [facility] Comment:The estimated glomer ular filtration rate (eGFR) is calculated using a new formula developed by the NKF-ASN task force to eliminate race-based correction factors. The new formula uses serum/plasma creatinine, age, and gender to determine eGFR. A value below 60mls/min might indicate kidney disease and will be flagged. For additional information, see Zaida toribio al, Am J Kidney Dis. 2021;79(2):268- 288, A Unifying Approach for GFR estimation: Recommendations of the NKF-ASN Task Force on Reassessing the Inclusion of Race in Diagnosing Kidney Disease . Blood Structure of peripheral vein / Unknown Venipuncture / Unknown 06/24/2024 12:58 PM EST 06/24/2024 1:11 PM EST Olivia Arteaga NP LAB BLOOD ORDERABLES Final Result Performing Organization Address City/[facility]/ZIP Co de Phone Number [facility] [address] [place] [address] [address] [place] [address], [place] [phone] * ECG 12 lead (06/24/2024 9:50 AM EST) Ventricular Rate EKG 73 BPM MUSE EKG Atrial Rate 73 BPM MUSE EKG ND Interval 228 ms MUSE EKG QRS Interval 128 ms MUSE EKG QT Interval 384 ms MUSE EKG QTC Interval 423 ms MUSE EKG P [place] 65 degrees MUSE EKG R [place] 41 degrees MUSE EKG T Wave [place] 61 degrees MUSE EKG 06/24/2024 9:50 AM EST 06/24/2024 5:36 PM EST Impressions MUSE EKG - 06/24/2024 5:36 PM EST Sinus rhythm with 1st degree AV block with occasional premature ventricular complexes Nonspecific intraventricular block When compared with ECG of 21-JUN-2024 07:26, No significant change was found Confirmed by Stephanie Hampton ([id number]) on 06/24/2024 5:36:28 PM Olivia Arteaga SQUIRREL WORKER ECG ORDERABLES Final Resul t Performing Organization Address City/[facility] Co de Phone Number MUSE EKG * (ABNORMAL) Basic metabolic panel (06/24/2024 7:27 AM EST) Pathologist [facility] NA 134(L) 136 - 145 mmol/L 06/24/2024 8:35 AM EST [facility] K 6.2(HH) 3.5 - 5.1 mmol/L 06/24/2024 8:35 AM EST [facility] Cl 100 98 - 109 mmol/L 06/24/2024 8:35 AM EST [facility] CO2 27 22 - 32 mmol/L 06/24/2024 8:35 AM EST [facility] BUN 37(H) 8 - 23 mg/dL 06/24/2024 8:35 AM EST [facility] Creatinine 1.23(H) 0.50 - 1.12 mg/dL 06/24/2024 8:35 AM EST [facility] Glucose 134(H) 60 - 99 mg/dL 06/24/2024 8:35 AM EST [facility] Calcium 8.7 8.4 - 10.4 mg/dL 06/24/2024 8:35 AM EST [facility] Anion Gap 13 >=0 06/24/2024 8:35 AM EST [facility] eGFR 47(L) >=60 mL/min/1. 73m2 06/24/2024 8:35 AM EST [facility] Comment:The estimated glomer ular [...] peripheral vein / Unknown Venipuncture / Unknown 06/24/2024 7:27 AM EST 06/24/2024 7:55 AM EST us Sydney David NP LAB BLOOD ORDERABLES Final Result [facility] [address] [facility] [address] [place] [address], * (ABNORMAL) CBC (06/24/2024 7:27 AM EST) WBC 15.1(H) 4.8 - 10.8 10*3/uL 06/24/2024 8:01 AM EST [facility] RBC 4.13(L) 4.20 - 5.40 10*6/uL 06/24/2024 8:01 AM EST [facility] Hemoglobin 12.2 11.7 - 15.5 g/dL 06/24/2024 8:01 AM EST [facility] Hematocrit 36.2 35.7 - 45.8 % 06/24/2024 8:01 AM EST [facility] MCV 87.7 81.0 - 99.0 fL 06/24/2024 8:01 AM EST [facility] MCH 29.5 26.0 - 34.0 pg 06/24/2024 8:01 AM EST [facility] MCHC 33.7 31.0 - 36.0 g/dL 06/24/2024 8:01 AM EST [facility] RDW 13.2 12.0 - 15.0 % 06/24/2024 8:01 AM EST [facility] Platelets 233 140 - 440 10*3/uL 06/24/2024 8:01 AM EST [facility] MPV 9.3(L) 9.4 - 12.3 fL 06/24/2024 8:01 AM [facility] RDW Standard Deviation 42.5 36.4 - 46.3 fL 06/24/2024 8:01 AM EST [facility] Blood Structure of peripheral vein / Unknown Venipuncture / Unknown 06/24/2024 7:27 AM EST 06/24/2024 7:56 AM EST Sydney David NP LAB BLOOD ORDERABLES Final Result [facility] [address] [facility] [address] [place] [address], [place] [phone] * (ABNORMAL) Potassium (06/23/2024 10:05 AM EST) K 5.6(H) 3.5 - 5.1 mmol/L 06/23/2024 10:58 AM EST [facility] Comment:REVIEWED Blood Structure of peripheral vein / Unknown Venipuncture / Unknown 06/23/2024 10:05 AM EST 06/23/2024 10:36 AM EST Narrative [facility] - 06/23/2024 10:58 AM EST Please check heparinized potassium, TY. us Sydney David SQUIRREL WORKER LAB BLOOD ORDERABLES Final Result [facility] [address] [place] [address], [place] [phone] * (ABNORMAL) Basic metabolic panel (06/23/2024 7:13 AM EST) Pathologist [facility] NA 134(L) 136 - 145 mmol/L 06/23/2024 8:09 AM EST [facility] K 06/23/2024 8:09 AM EST [facility] Comment:UNABLE TO REPORT DUE TO HEMOLYSIS Cl 100 98 - 109 mmol/L 06/23/2024 8:09 AM EST [facility] CO2 27 22 - 32 mmol/L 06/23/2024 8:09 AM EST [facility] BUN 36(H) 8 - 23 mg/dL 06/23/2024 8:09 AM EST [facility] Creatinine 1.08 0.50 - 1.12 mg/dL 06/23/2024 8:09 AM EST [facility] Glucose 119(H) 60 - 99 mg/dL 06/23/2024 8:09 AM EST [facility] Calcium 8.8 8.4 - 10.4 mg/dL 06/23/2024 8:09 AM EST [facility] Anion Gap 06/23/2024 8:09 AM EST [facility] Comment: UNABLE TO REPORT DUE TO HEMOLYSIS Unable to Calculate eGFR 55(L) >=60 mL/min/1. 73m2 06/23/2024 8:09 AM EST [facility] Comment:The estimated glomer ular [...] peripheral vein / Unknown Venipuncture / Unknown 06/23/2024 7:13 AM EST 06/23/2024 7:36 AM EST Sydney David SQUIRREL WORKER LAB BLOOD ORDERABLES Final Result Performing Organization Address City/State/[facility] Co de Phone Number [facility] [address] [place] [id number], * (ABNORMAL) CBC (06/23/2024 7:13 AM EST) WBC 17.3(H) 4.8 - 10.8 10*3/uL 06/23/2024 7:43 AM EST [facility] RBC 4.18(L) 4.20 - 5.40 10*6/uL 06/23/2024 7:43 AM EST [facility] Hemoglobin 12.3 11.7 - 15.5 g/dL 06/23/2024 7:43 AM EST [facility] Hematocrit 37.2 35.7 - 45.8 % 06/23/2024 7:43 AM EST [facility] MCV 89.0 81.0 - 99.0 fL 06/23/2024 7:43 AM EST [facility] MCH 29.4 26.0 - 34.0 pg 06/23/2024 7:43 AM EST [facility] MCHC 33.1 31.0 - 36.0 g/dL 06/23/2024 7:43 AM EST [facility] RDW 13.2 12.0 - 15.0 % 06/23/2024 7:43 AM EST [facility] Platelets 249 140 - 440 10*3/uL 06/23/2024 7:43 AM EST [facility] MPV 9.5 9.4 - 12.3 fL 06/23/2024 7:43 AM EST [facility] RDW Standard Deviation 43.3 36.4 - 46.3 fL 06/23/2024 7:43 AM EST [facility] Blood Structure of peripheral vein / Unknown Venipuncture / Unknown 06/23/2024 7:13 AM EST 06/23/2024 7:37 AM EST Sydney David SQUIRREL WORKER LAB BLOOD ORDERABLES Final Result Performing Organization Address City/State/[facility] Co de Phone Number [facility] [address] [place] [phone], * X-Ray Chest 2 Views (06/22/2024 4:27 PM EST) Anatomical Region Laterality Modality Body Radiographic Minda ging 06/24/2024 9:34 AM EST Impressions 06/24/2024 9:35 AM EST Interval clearing of prior LLL infiltrate/atelectasis. Lungs and pleural spaces now clear. Heart size remains normal. If this radiology report contains a blank impression section, it is an incomplete radiology report. ??Please contact the interpreting radiologist or applicable radiology division as soon as possible to obtain the completed interpretation. ? Workstation ID: [id number] Narrative 06/24/2024 9:35 AM EST COMPARISON: ??06/18/2024 FINDINGS AND Resulting Agency Comment [id number] Procedure Note Calvin Katz MD - 06/24/2024 COMPARISON: 06/18/2024 FINDINGS AND IMPRESSION: Interval clearing of prior LLL infiltrate/atelectasis. Lungs and pleuralspaces now clear. Heart size remains normal. If this radiology report contains a blank impression section, it is anincomplete radiology report. Please contact the interpreting radiologistor applicable radiology division as soon as possible to obtain thecompleted interpretation. Workstation ID: [id number] us Sydney David SQUIRREL WORKER IMG XR PROCEDURES Final Res ult * Lavender Top (06/22/2024 6:53 AM EST) Pathologist [facility] Extra Tube Hold for add-ons. 06/22/2024 11:05 AM EST [facility] Comment:Auto resulted. Blood Structure of peripheral vein / Unknown 06/22/2024 6:53 AM EST 06/22/2024 6:53 AM EST us Mj Mendenhall MD LAB BLOOD ORDERABLES Final R esult [facility] [address] [place] [address], [place] [phone] * (ABNORMAL) Basic Metabolic Panel (06/22/2024 6:38 AM EST) Pathologist [facility] NA 134(L) 136 - 145 mmol/L 06/22/2024 7:21 AM EST [facility] K 06/22/2024 7:21 AM EST [facility] Comment:UNABLE TO RESULT DUE TO HEMOLYSIS Cl 102 98 - 109 mmol/L 06/22/2024 7:21 AM EST [facility] CO2 23 22 - 32 mmol/L 06/22/2024 7:21 AM EST [facility] BUN 40(H) 8 - 23 mg/dL 06/22/2024 7:21 AM EST [facility] Creatinine 1.05 0.50 - 1.12 mg/dL 06/22/2024 7:21 AM EST [facility] Glucose 134(H) 60 - 99 mg/dL 06/22/2024 7:21 AM EST [facility] Calcium 8.4 8.4 - 10.4 mg/dL 06/22/2024 7:21 AM EST [facility] Anion Gap 06/22/2024 7:21 AM EST [facility] Comment: UNABLE TO RESULT DUE TO HEMOLYSIS Unable to Calculate eGFR 57(L) >=60 mL/min/1. 73m2 06/22/2024 7:21 AM EST [facility] Comment:The estimated glomer ular [...] peripheral vein / Unknown Venipuncture / Unknown 06/22/2024 6:38 AM EST 06/22/2024 6:49 AM EST us Andrew Finney MD LAB BLOOD ORDERABLES Final R esult [facility] [address] [place] [address] [address] [place] [address], * ECG 12 lead For Preop? No (06/21/2024 7:26 AM EST) Ventricular Rate EKG 67 BPM MUSE EKG Atrial Rate 67 BPM MUSE EKG ND Interval 208 ms MUSE EKG QRS Interval 120 ms MUSE EKG QT Interval 414 ms MUSE EKG QTC Interval 437 ms MUSE EKG P [place] 50 degrees MUSE EKG R [place] 8 degrees MUSE EKG T Wave [place] 47 degrees MUSE EKG 06/21/2024 7:26 AM EST 06/21/2024 10:02 AM EST Impressions MUSE EKG - 06/21/2024 10:02 AM EST Normal sinus rhythm with first degree AVB When compared with ECG of 15-JUN-2024 20:08, No significant change was found Confirmed by Stephanie Hampton ([id number]) on 06/21/2024 10:02:50 AM us Stephanie Hampton MD ECG ORDERABLES Final Result MUSE EKG * (ABNORMAL) Basic metabolic panel (06/21/2024 6:10 AM EST) NA 137 136 - 145 mmol/L 06/21/2024 7:58 AM EST [facility] K 4.8 3.5 - 5.1 mmol/L 06/21/2024 7:58 AM EST [facility] Cl 102 98 - 109 mmol/L 06/21/2024 7:58 AM EST [facility] CO2 24 22 - 32 mmol/L 06/21/2024 7:58 AM EST [facility] BUN 45(H) 8 - 23 mg/dL 06/21/2024 7:58 AM EST [facility] Creatinine 1.15(H) 0.50 - 1.12 mg/dL 06/21/2024 7:58 AM EST [facility] Glucose 143(H) 60 - 99 mg/dL 06/21/2024 7:58 AM EST [facility] Calcium 8.6 8.4 - 10.4 mg/dL 06/21/2024 7:58 AM EST [facility] Anion Gap 16 >=0 06/21/2024 7:58 AM EST [facility] eGFR 51(L) >=60 mL/min/1. 73m2 06/21/2024 7:58 AM EST [facility] Comment:The estimated glomer ular [...] peripheral vein / Unknown Venipuncture / Unknown 06/21/2024 6:10 AM EST 06/21/2024 7:01 AM EST Tia Oh SQUIRREL WORKER LAB BLOOD ORDERABLES Final Resul t Performing Organization Address [facility] Co de Phone Number [facility] [address] [address], * Troponin T, High Sensitivity (06/20/2024 10:19 AM EST) Troponin T High Sensitivity 14 6 - 14 ng/L 06/20/2024 11:08 AM EST [facility] Comment: Na-Voewlxee-H level of 52 ng/L or higher at 0-hour at presentation is recommended by the ESC 0/1-hour algorithm for identifying patients at high risk for ruling in acute myocardial infarction (AMI) in the appropriate clinical context. Repeat troponin testing 1-3 hours after the initial sample may be helpful in assessing for ongoing myocardial injury. Troponin elevations can be seen in several other non-infarct conditions, and the change (delta) should be evaluated in line with the 4th [place] Definition of AMI. Troponin baseline and serial elevation for a significant delta should be interpreted with clinical presentation, history, signs and symptoms, ECG, and biomarker concentrations. For inpatient setting: Value <12ng/L is considered negative for all genders. 0-1hr: A delta change of <3 will be considered negative/flat if chest pain onset >3 hours 0-3hr: A delta change of <7 will be considered negative/flat Blood Structure of peripheral vein / Unknown Venipuncture / Unknown 06/20/2024 10:19 AM EST 06/20/2024 10:31 AM EST Stephanie Hampton MD LAB BLOOD ORDERABLES Final R esult Performing Organization Address [facility]/ZIP Co de Phone Number [facility] [address] [address], * (ABNORMAL) N-terminal ProBrain Natriuretic Peptide (06/20/2024 10:19 AM EST) Pathologist [facility] Pro-B-Type Natriuretic Peptide 2,459(H) <=900 pg/mL 06/20/2024 11:05 AM EST [facility] Comment: RULE IN CHF >/= 450 pg/mL for patients <50 years old RULE IN CHF >/= 900 pg/mL for patients 50-75 years old RULE IN CHF >/= 1800 pg/mL for patients >75 years old RULE OUT CHF </= 300 pg/mL (not age specific) Blood Structure of peripheral vein / Unknown Venipuncture / Unknown 06/20/2024 10:19 AM EST 06/20/2024 10:31 AM EST Stephanie Hampton MD LAB BLOOD ORDERABLES Final R esult Performing Organization Address City/State/[facility] Co de Phone Number [facility] [address] [place] [phone], * (ABNORMAL) Basic metabolic panel (06/20/2024 8:53 AM EST) Pathologist [facility] NA 136 136 - 145 mmol/L 06/20/2024 9:48 AM EST [facility] K 4.1 3.5 - 5.1 mmol/L 06/20/2024 9:48 AM EST [facility] Comment:ALL DELTAS REVIEWED Cl 102 98 - 109 mmol/L 06/20/2024 9:48 AM EST [facility] CO2 21(L) 22 - 32 mmol/L 06/20/2024 9:48 AM EST [facility] BUN 42(H) 8 - 23 mg/dL 06/20/2024 9:48 AM EST [facility] Creatinine 1.17(H) 0.50 - 1.12 mg/dL 06/20/2024 9:48 AM EST [facility] Glucose 164(H) 60 - 99 mg/dL 06/20/2024 9:48 AM EST [facility] Calcium 8.8 8.4 - 10.4 mg/dL 06/20/2024 9:48 AM EST [facility] Anion Gap 17 >=0 06/20/2024 9:48 AM EST [facility] eGFR 50(L) >=60 mL/min/1. 73m2 06/20/2024 9:48 AM EST [facility] Comment:The estimated glomer ular [...] peripheral vein / Unknown Venipuncture / Unknown 06/20/2024 8:53 AM EST 06/20/2024 9:05 AM EST us Tia Oh SQUIRREL WORKER LAB BLOOD ORDERABLES Final Resul t [facility] [address] [facility] [address] [place] [address], * (ABNORMAL) Respiratory Culture (06/20/2024 7:37 AM EST) Respiratory Culture Moderate Rayna albicans(A) [facility] 06/22/2024 11:29 AM EST [facility] Gram Stain Result <25 per LPF White Blood Cells Seen 06/22/2024 11:29 AM EST [facility] Gram Stain Result <10 per LPF Epithelial Cells 06/22/2024 11:29 AM EST [facility] Gram Stain Result Rare Gram Positive Cocci in pairs 06/22/2024 11:29 AM EST [facility] Sputum Sputum / Unknown Non-Blood Collection / Unknown 06/20/2024 7:37 AM EST 06/20/2024 7:54 AM EST Narrative [facility] - 06/22/2024 11:29 AM EST Many normal respiratory beena present. us Tia Oh S[employer]IR[employer] WORK[employer] LAB MICROBIOLOGY - GENERAL ORDER RHINA Final Result [facility] [address] [facility] [address] [place] [address], * (ABNORMAL) Basic metabolic panel (06/19/2024 6:15 AM EST) NA 137 136 - 145 mmol/L 06/19/2024 7:01 AM EST [facility] K 5.2(H) 3.5 - 5.1 mmol/L 06/19/2024 7:01 AM EST [facility] Cl 106 98 - 109 mmol/L 06/19/2024 7:01 AM EST [facility] CO2 19(L) 22 - 32 mmol/L 06/19/2024 7:01 AM EST [facility] BUN 41(H) 8 - 23 mg/dL 06/19/2024 7:01 AM EST [facility] Creatinine 1.12 0.50 - 1.12 mg/dL 06/19/2024 7:01 AM EST [facility] Glucose 139(H) 60 - 99 mg/dL 06/19/2024 7:01 AM EST [facility] Calcium 9.1 8.4 - 10.4 mg/dL 06/19/2024 7:01 AM EST [facility] Anion Gap 17 >=0 06/19/2024 7:01 AM EST [facility] eGFR 52(L) >=60 mL/min/1. 73m2 06/19/2024 7:01 AM EST [facility] Comment:The estimated glomer ular [...] peripheral vein / Unknown Venipuncture / Unknown 06/19/2024 6:15 AM EST 06/19/2024 6:40 AM EST us Tia Oh SQUIRREL WORKER LAB BLOOD ORDERABLES Final Resul t [facility] [address] [place] [address] [address] [place] [address], * (ABNORMAL) CBC (06/19/2024 6:15 AM EST) WBC 13.0(H) 4.8 - 10.8 10*3/uL 06/19/2024 6:53 AM EST [facility] RBC 3.87(L) 4.20 - 5.40 10*6/uL 06/19/2024 6:53 AM EST [facility] Hemoglobin 11.2(L) 11.7 - 15.5 g/dL 06/19/2024 6:53 AM EST [facility] Hematocrit 33.8(L) 35.7 - 45.8 % 06/19/2024 6:53 AM EST [facility] MCV 87.3 81.0 - 99.0 fL 06/19/2024 6:53 AM EST [facility] MCH 28.9 26.0 - 34.0 pg 06/19/2024 6:53 AM EST [facility] MCHC 33.1 31.0 - 36.0 g/dL 06/19/2024 6:53 AM EST [facility] RDW 13.2 12.0 - 15.0 % 06/19/2024 6:53 AM EST [facility] Platelets 238 140 - 440 10*3/uL 06/19/2024 6:53 AM EST [facility] MPV 10.0 9.4 - 12.3 fL 06/19/2024 6:53 AM EST [facility] RDW Standard Deviation 41.9 36.4 - 46.3 fL 06/19/2024 6:53 AM EST [facility] Blood Structure of peripheral vein / Unknown Venipuncture / Unknown 06/19/2024 6:15 AM EST 06/19/2024 6:37 AM EST us Tia Oh SQUIRREL WORKER LAB BLOOD ORDERABLES Final Resul t Performing Organization Address [facility] Co de Phone Number [facility] [address] [facility] [address] [place] [address], * Legionella Antigen, Urine (06/18/2024 6:44 PM EST) Legionella pneumophila Urine Ag Negative Negative [facility] 06/19/2024 8:53 AM EST [facility] Comment: INTERPRETATION: Presumptive negative for Legionella pneumophila serogroup 1 antigen in urine, suggesting no recent or current infection. Infection due to Legionella cannot be ruled out since other serogroups and species may cause disease, antigen may not be present in urine in early infection, and the level of antigen present in the urine may be below the detection limit of the test. Urine Urine specimen collection, clean catch / Unknown Non-Blood Collection / Unknown 06/18/2024 6:44 PM EST 06/18/2024 7:15 PM EST [facility] - 06/19/2024 8:53 AM EST This assay is specific for Legionella pneumophila serogroup 1 which causes more than 50% of all Legionella infections. This assay will not detect infections caused by other Legionella species/serogroups. Antigenuria may persist for prolonged periods of time. Legionella pneumophila serogroup 1 antigen can be detected in urine within 2-3 days of infection and may persist even after treatment. This assay does not detect other Legionella species or serogroups. Mj Mendenhall MD LAB URINE ORDERABLES Final R esult Performing Organization Address City/[facility]/ZIP Co de Phone Number [facility] [address] [address], * Streptococcus Pneumoniae Antigen Urine (06/18/2024 6:44 PM EST) Streptococcus pneumoniae Antigen, Urine Negative Negative [facility] 06/19/2024 8:53 AM EST [facility] Comment: INTERPRETATION: Presumptive negative for pneumococcal pneumonia, suggesting no current or recent pneumococcal infection. Infection due to Streptococcus pneumoniae cannot be ruled out since the antigen present in the specimen may be below the detection limit of the test. Urine Urine specimen collection, clean catch / Unknown Non-Blood Collection / Unknown 06/18/2024 6:44 PM EST 06/18/2024 7:15 PM EST us Mj Mendenhall MD LAB URINE ORDERABLES Final R esult Performing Organization Address [facility] Co de Phone Number [facility] [address] [address], * XR Chest Portable 1 View (06/18/2024 2:12 PM EST) Anatomical Region Laterality Modality Body Radiographic Minda ging 06/20/2024 10:1 6 AM EST Impressions 06/20/2024 10:17 AM EST Redemonstrated left basilar consolidation. ??No new abnormality in the chest. If this radiology report contains a blank impression section, it is an incomplete radiology report. ??Please contact the interpreting radiologist or applicable radiology division as soon as possible to obtain the completed interpretation. ? Workstation ID: [id number] Narrative 06/20/2024 10:17 AM EST EXAMINATION: XR CHEST PORTABLE 1 VIEW COMPARISON: CT chest pulmonary angiogram 06/15/2024 and other priors. FINDINGS: Lines/Tubes/Devices: None. Lungs: Redemonstrated left basilar consolidation. Pleura: No pleural effusions or pneumothorax. Heart/Mediastinum: Cardiomediastinal silhouette is similar to prior. Bones/Soft tissues: No acute osseous abnormality. Resulting Agency Comment [id number] Procedure Note Apolonia Nolen MD - 06/20/2024 EXAMINATION: XR CHEST PORTABLE 1 VIEW COMPARISON: CT chest pulmonary angiogram 06/15/2024 and other priors. FINDINGS: Lines/Tubes/Devices: None. Lungs: Redemonstrated left basilar consolidation. Pleura: No pleural effusions or pneumothorax. Heart/Mediastinum: Cardiomediastinal silhouette is similar to prior. Bones/Soft tissues: No acute osseous abnormality. IMPRESSION: Redemonstrated left basilar consolidation. No new abnormality in thechest. If this radiology report contains a blank impression section, it is anincomplete radiology report. Please contact the interpreting radiologistor applicable radiology division as soon as possible to obtain thecompleted interpretation. Workstation ID: [id number] us Tia Oh SQUIRREL WORKER IMG XR PROCEDURES Final Result * (ABNORMAL) N-terminal ProBrain Natriuretic Peptide (06/18/2024 2:12 PM EST) Pro-B-Type Natriuretic Peptide 2,998(H) <=900 pg/mL 06/18/2024 3:10 PM EST [facility] Comment: RULE IN CHF >/= 450 pg/mL for patients <50 years old RULE IN CHF >/= 900 pg/mL for patients 50-75 years old RULE IN CHF >/= 1800 pg/mL for patients >75 years old RULE OUT CHF </= 300 pg/mL (not age specific) Blood Structure of peripheral vein / Unknown Venipuncture / Unknown 06/18/2024 2:12 PM EST 06/18/2024 2:23 PM EST Narrative [facility] - 06/18/2024 3:10 PM EST All deltas reviewed us Tia Oh SQUIRREL WORKER LAB BLOOD ORDERABLES Final Resul t [facility] [address] [facility] [address] [place] [address], [place] [phone] * TSH (06/17/2024 7:03 AM EST) TSH 0.874 0.270 - 4.200 uIU/mL 06/17/2024 2:31 PM EST [facility] Comment: Females: 1st trimester ? 0.150-4.000 ??IU/mL 2nd trimester ?? 0.310-4.170 ?IU/mL 3rd trimester ?0.380-4.150 ?IU/mL Blood Structure of peripheral vein / Unknown Venipuncture / Unknown 06/17/2024 7:03 AM EST 06/17/2024 7:23 AM EST us Tia Oh SQUIRREL WORKER LAB BLOOD ORDERABLES Final Resul t [facility] [address] [facility] [address] [place] [address], [place] [phone] * (ABNORMAL) CBC Auto Differential (06/17/2024 7:03 AM EST) Pathologist [facility] WBC 11.6(H) 4.8 - 10.8 10*3/uL 06/17/2024 7:30 AM EST [facility] RBC 3.94(L) 4.20 - 5.40 10*6/uL 06/17/2024 7:30 AM [facility] Hemoglobin 11.7 11.7 - 15.5 g/dL 06/17/2024 7:30 AM EST [facility] Hematocrit 35.4(L) 35.7 - 45.8 % 06/17/2024 7:30 AM EST [facility] MCV 89.8 81.0 - 99.0 fL 06/17/2024 7:30 AM EST [facility] MCH 29.7 26.0 - 34.0 pg 06/17/2024 7:30 AM EST [facility] MCHC 33.1 31.0 - 36.0 g/dL 06/17/2024 7:30 AM [facility] RDW 12.9 12.0 - 15.0 % 06/17/2024 7:30 AM [facility] RDW Standard Deviation 42.6 36.4 - 46.3 fL 06/17/2024 7:30 AM [facility] Platelets 257 140 - 440 10*3/uL 06/17/2024 7:30 AM [facility] Comment:REV IEWED MPV 10.0 9.4 - 12.3 fL 06/17/2024 7:30 AM [facility] Neutrophil % 81.6(H) 50.0 - 75.0 % 06/17/2024 7:30 AM [facility] Immature Grans % 0.8 0.0 - 0.9 % 06/17/2024 7:30 AM [facility] Lymphocyte % 11.8(L) 20.0 - 44.0 % 06/17/2024 7:30 AM [facility] Monocyte % 5.6 0.0 - 14.0 % 06/17/2024 7:30 AM [facility] Eosinophil % 0.0 0.0 - 5.0 % 06/17/2024 7:30 AM [facility] Basophil % 0.2 0.0 - 2.0 % 06/17/2024 7:30 AM [facility] Neutrophil # 9.48(H) 1.80 - 7.70 10*3/uL 06/17/2024 7:30 AM [facility] Immature Grans # 0.09(H) 0.00 - 0.03 10*3/uL 06/17/2024 7:30 AM [facility] Lymphocyte # 1.40 1.00 - 4.75 10*3/uL 06/17/2024 7:30 AM [facility] Monocyte # 0.70(H) 0.00 - 0.60 10*3/uL 06/17/2024 7:30 AM [facility] Eosinophil # <0.03 0.00 - 0.80 10*3/uL 06/17/2024 7:30 AM [facility] Basophil # <0.03 0.00 - 0.20 10*3/uL 06/17/2024 7:30 AM EST [facility] nRBC % 0.0 0 - 0 /100 WBCs 06/17/2024 7:30 AM EST [facility] nRBC # <0.01 0.00 - 0.13 10*3/uL 06/17/2024 7:30 AM EST [facility] Blood Structure of peripheral vein / Unknown Venipuncture / Unknown 06/17/2024 7:03 AM EST 06/17/2024 7:22 AM EST us Mj Mendenhall MD LAB BLOOD ORDERABLES Final R esult [facility] [address] [place] [id number], [place] [phone] * (ABNORMAL) Comprehensive Metabolic Panel (06/17/2024 7:03 AM EST) NA 139 136 - 145 mmol/L 06/17/2024 8:07 AM EST [facility] K 5.1 3.5 - 5.1 mmol/L 06/17/2024 8:07 AM EST [facility] Cl 106 98 - 109 mmol/L 06/17/2024 8:07 AM EST [facility] CO2 23 22 - 32 mmol/L 06/17/2024 8:07 AM EST [facility] Anion Gap 15 >=0 06/17/2024 8:07 AM EST [facility] Glucose 111(H) 60 - 99 mg/dL 06/17/2024 8:07 AM EST [facility] Creatinine 0.99 0.50 - 1.12 mg/dL 06/17/2024 8:07 AM EST [facility] Calcium 9.4 8.4 - 10.4 mg/dL 06/17/2024 8:07 AM EST [facility] Total Protein 6.8 6.6 - 8.7 g/dL 06/17/2024 8:07 AM EST [facility] Albumin 4.0 3.5 - 5.0 g/dL 06/17/2024 8:07 AM EST [facility] Bilirubin, Total 0.1(L) 0.2 - 1.2 mg/dL 06/17/2024 8:07 AM EST [facility] Alkaline Phosphatase 109 40 - 129 U/L 06/17/2024 8:07 AM EST [facility] AST 23 0 - 33 U/L 06/17/2024 8:07 AM EST [facility] ALT 26 <=33 U/L 06/17/2024 8:07 AM EST [facility] BUN 27(H) 8 - 23 mg/dL 06/17/2024 8:07 AM EST [facility] eGFR 61 >=60 mL/min/1. 73m2 06/17/2024 8:07 AM EST [facility] Comment:The estimated glomer ular [...] of Race in Diagnosing Kidney Disease . Globulin, Total 2.8 2.1 - 4.2 g/dL 06/17/2024 8:07 AM EST [facility] A/G Ratio 1.4(L) 1.5 - 3.0 06/17/2024 8:07 AM EST [facility] Blood Structure of peripheral vein / Unknown Venipuncture / Unknown 06/17/2024 7:03 AM EST 06/17/2024 7:23 AM EST us Mj Mendenhall MD LAB BLOOD ORDERABLES Final R esult [facility] [address] [place] [phone], * Lavender Top (06/16/2024 7:54 AM EST) Extra Tube Hold for add-ons. 06/16/2024 12:05 PM EST [facility] Comment:Auto resulted. Blood Structure of peripheral vein / Unknown 06/16/2024 7:54 AM EST 06/16/2024 7:54 AM EST Mj Mendenhall MD LAB BLOOD ORDERABLES Final R esult Performing Organization Address City/[facility]/ZIP Co de Phone Number [facility] [address] [address], * Light Green Top (06/16/2024 7:54 AM EST) Extra Tube Hold for add-ons. 06/16/2024 12:05 PM EST [facility] Comment:Auto resulted. Blood Structure of peripheral vein / Unknown 06/16/2024 7:54 AM EST 06/16/2024 7:54 AM EST Mj Mendenhall MD LAB BLOOD ORDERABLES Final R esult Performing Organization Address City/[facility]/ZIP Co de Phone Number [facility] [address] [address], * Mycoplasma pneumoniae Antibodies, IgG/IgM (06/16/2024 7:42 AM EST) M. pneumoniae Ab, IgG <=0.90 <=0.90 06/19/2024 10:04 PM EST HILARY HARVEY) Comment: ? Reference Range: ? <=0.90 ? Negative ?0.91-1.09 ? Equivocal ? >=1.10 ? Positive A positive IgG result indicates that the patient has antibody to Mycoplasma. It does not differentiate between an active or past infection. The clinical diagnosis must be interpreted in conjunction with the clinical signs and symptoms of the patient. M. pneumoniae Ab, IgM 72 <770 U/mL 06/19/2024 10:04 PM EST HILARY MARTINEZ (DERICK) Comment: Reference Range: ?<770 U/ml ?Negative 770-950 U/mL ?Low positive ?>950 U/mL ?Positive A positive IgM antibody result is consistent with recent infection. However, a negative result does not necessarily rule out recent infection as some individuals may not mount another IgM response, if previously infected. A positive IgM antibody result with or without a positive IgG antibody result, is consistent with recent infection. However, a negative result does not necessarily rule out recent infection as some individuals may not mount another IgM response, if previously infected. A positive IgG antibody result in the absence of a positive IgM antibody result, indicates that the patient has antibody to Mycoplasma. It does not differentiate between an active or past infection. The clinical diagnosis must be interpreted in conjunction with the clinical signs and symptoms of the patient. Blood Structure of peripheral vein / Unknown Venipuncture / Unknown 06/16/2024 7:42 AM EST 06/16/2024 7:53 AM EST Narrative HILARY DAVID - 06/19/2024 10:04 PM EST [facility] Received Date: us Mj Mendenhall MD LAB BLOOD ORDERABLES Final R esult HILARY DAVID [address] [place] [address] [address] Floor, [place] [address], [place] [phone] HILARY MARTINEZ (SEPULVEDA) [id number] [place], [place] , [place] * CT Chest PE (06/15/2024 11:49 PM EST) Anatomical Region Laterality Modality Body Computed Tomogra phy 06/16/2024 12:2 5 AM EST Impressions 06/16/2024 8:03 AM EST No evidence of pulmonary embolism. Left basilar consolidation along with left lower lobe nodules. ??This could be related to pneumonia and/or aspiration. Follow-up CT chest in 3 month is recommended to ensure resolution of the nodules. If this radiology report contains a blank impression section, it is an incomplete radiology report. ??Please contact the interpreting radiologist or applicable radiology division as soon as possible to obtain the completed interpretation. ? Workstation ID: [id number] Up-to-date CT equipment and radiation dose reduction techniques were employed. CTDIvol: .8 - 21.4 mGy. DLP: 802 mGy-cm. Narrative 06/16/2024 8:03 AM EST COMPARISON: CT chest from 01/07/2011. ?? FINDINGS: Pulmonary arteries: The pulmonary arteries are normal in caliber without intraluminal filling defects to indicate pulmonary embolism. ?? Lower neck: Unremarkable. Lungs and Airways: There is a left basilar consolidation along with left lower lobe nodules. ??Right basilar atelectasis. ??Bilateral mucus plugging. ??Pleura: There is no pleural effusion or pneumothorax. Heart and Mediastinum: Heart size is normal. The RV:LV ratio is less than 1. There is no flattening or leftward bowing of the interventricular septum. There is no pericardial effusion. ??Mild coronary artery calcifications. ??The thoracic aorta is normal in caliber without evidence of dissection. There is no hilar or mediastinal lymphadenopathy. There is a peripherally calcified splenic artery aneurysm measuring 1.4 cm. ??Status post cholecystectomy. Bones and Soft Tissues: There are no suspicious osseous lesions. Multilevel degenerative changes of the spine. Procedure Note Donnie, Dick - 06/16/2024 COMPARISON: CT chest from 01/07/2011. FINDINGS: Pulmonary arteries: The pulmonary arteries are normal in caliber withoutintraluminal filling defects to indicate pulmonary embolism. Lower neck: Unremarkable. Lungs and Airways: There is a left basilar consolidation along with leftlower lobe nodules. Right basilar atelectasis. Bilateral mucus plugging.Pleura: There is no pleural effusion or pneumothorax. Heart and Mediastinum: Heart size is normal. The RV:LV ratio is less than1. There is no flattening or leftward bowing of the interventricularseptum. There is no pericardial effusion. Mild coronary arterycalcifications. The thoracic aorta is normal in caliber without evidenceof dissection. There is no hilar or mediastinal lymphadenopathy. There is a peripherally calcified splenic artery aneurysm measuring 1.4cm. Status post cholecystectomy. Bones and Soft Tissues: There are no suspicious osseous lesions.Multilevel degenerative changes of the spine. IMPRESSION: No evidence of pulmonary embolism. Left basilar consolidation along with left lower lobe nodules. This couldbe related to pneumonia and/or aspiration. Follow-up CT chest in 3 monthis recommended to ensure resolution of the nodules. If this radiology report contains a blank impression section, it is anincomplete radiology report. Please contact the interpreting radiologistor applicable radiology division as soon as possible to obtain thecompleted interpretation. Workstation ID: [id number] Up-to-date CT equipment and radiation dose reduction techniques wereemployed. CTDIvol: .8 - 21.4 mGy. DLP: 802 mGy-cm. us Kevin Newsome MD IMIman CT PROCEDURES Final Result * (ABNORMAL) Blood gas, venous (06/15/2024 10:17 PM EST) pH, Venous 7.24(LL) 7.35 - 7.45 06/16/2024 2:54 AM EST [facility] pCO2, Venous 57.0 mm[Hg] 06/16/2024 2:54 AM EST [facility] pO2, Keegan 138.0 mm[Hg] 06/16/2024 2:54 AM EST [facility] HCO3, Venous 22 mmol/L 06/16/2024 2:54 AM EST [facility] O2 Sat, Venous 97.8 % 06/16/2024 2:54 AM EST [facility] Base Excess, Keegan -3.6 mmol/L 06/16/2024 2:54 AM EST [facility] Blood Structure of peripheral vein / Unknown Venipuncture / Unknown 06/15/2024 10:17 PM EST 06/16/2024 2:52 AM EST us Kevin Newsome MD LAB BLOOD ORDERABLES Final Resul t Performing Organization Address [facility]/ZIP Co de Phone Number [facility] [address] [place] [address], [place] * Lactic Acid, Plasma (06/15/2024 10:17 PM EST) Lactic Acid 0.7 0.5 - 2.2 mmol/L 06/15/2024 11:02 PM EST [facility] Blood Structure of peripheral vein / Unknown Venipuncture / Unknown 06/15/2024 10:17 PM EST 06/15/2024 10:31 PM EST us Kevin Newsome MD LAB BLOOD ORDERABLES Final Resul t Performing Organization Address [facility] Co de Phone Number [facility] [address] [address], [place] [phone] * Blood Culture (06/15/2024 10:17 PM EST) Blood Culture No growth after 5 days 06/20/2024 11:05 PM EST [facility] Blood Structure of peripheral vein / Unknown Venipuncture / Unknown 06/15/2024 10:17 PM EST 06/15/2024 10:39 PM EST us Kevin Newsome MD LAB MICROBIOLOGY - GENERAL ORDER RHINA Final Result Performing Organization Address City/[facility] Co de Phone Number [facility] [address] [address], [place] [phone] * Blood Culture (06/15/2024 10:17 PM EST) Blood Culture No growth after 5 days 06/20/2024 11:05 PM EST [facility] Blood Structure of peripheral vein / Unknown Venipuncture / Unknown 06/15/2024 10:17 PM EST 06/15/2024 10:39 PM EST Kevin Newsome MD LAB MICROBIOLOGY - GENERAL ORDER RHINA Final Result Performing Organization Address [facility] de Phone Number [facility] [address] [address], * Troponin T, High Sensitivity X2 (now + 2hrs) (06/15/2024 10:17 PM EST) Troponin T High Sensitivity 12 6 - 14 ng/L 06/15/2024 11:01 PM EST [facility] Comment: In-Fvqvjyra-T level of 52 ng/L or higher at 0-hour at presentation is recommended by the ESC 0/1-hour algorithm for identifying patients at high risk for ruling in acute myocardial infarction (AMI) in the appropriate clinical context. Repeat troponin testing 1-3 hours after the initial sample may be helpful in assessing for ongoing myocardial injury. Troponin elevations can be seen in several other non-infarct conditions, and the change (delta) should be evaluated in line with the 4th Duffield Definition of AMI. Troponin baseline and serial elevation for a significant delta should be interpreted with clinical presentation, history, signs and symptoms, ECG, and biomarker concentrations. For inpatient setting: Value <12ng/L is considered negative for all genders. 0-1hr: A delta change of <3 will be considered negative/flat if chest pain onset >3 hours 0-3hr: A delta change of <7 will be considered negative/flat Blood Structure of peripheral vein / Unknown Venipuncture / Unknown 06/15/2024 10:17 PM EST 06/15/2024 10:31 PM EST Calvin Fontenot MD LAB BLOOD ORDERABLES Final R esult Performing Organization Address City/[facility]/ZIP Co de Phone Number [facility] [address] [address], * XR Chest 2 vw. Standard (06/15/2024 8:19 PM EST) Anatomical Region Laterality Modality Body Radiographic Minda ging 06/15/2024 8:28 PM EST Impressions 06/15/2024 8:30 PM EST New left lower lobe airspace disease, could represent pneumonia. Unremarkable cardiomediastinal silhouette, given rotation and technique. No pleural effusion or pneumothorax. If this radiology report contains a blank impression section, it is an incomplete radiology report. ??Please contact the interpreting radiologist or applicable radiology division as soon as possible to obtain the completed interpretation. ? Workstation ID: [id number] Narrative 06/15/2024 8:30 PM EST COMPARISON: Chest x-ray 06/03/2024 FINDINGS AND Resulting Agency Comment [id number] Procedure Note Ruperto Huang MD - 06/15/2024 COMPARISON: Chest x-ray 06/03/2024 FINDINGS AND IMPRESSION: New left lower lobe airspace disease, could represent pneumonia. Unremarkable cardiomediastinal silhouette, given rotation and technique. No pleural effusion or pneumothorax. If this radiology report contains a blank impression section, it is anincomplete radiology report. Please contact the interpreting radiologistor applicable radiology division as soon as possible to obtain thecompleted interpretation. Workstation ID: [id number] us Calvin Fontenot MD IMG XR PROCEDURES Final Resu lt * ECG 12 lead (06/15/2024 8:08 PM EST) Ventricular Rate EKG 67 BPM MUSE EKG Atrial Rate 67 BPM MUSE EKG ND Interval 282 ms MUSE EKG QRS Interval 116 ms MUSE EKG QT Interval 412 ms MUSE EKG QTC Interval 435 ms MUSE EKG P [place] 68 degrees MUSE EKG R [place] 18 degrees MUSE EKG T Wave [place] 51 degrees MUSE EKG 06/15/2024 8:08 PM EST 06/16/2024 10:55 AM EST Impressions MUSE EKG - 06/16/2024 10:55 AM EST Sinus rhythm with 1st degree AV block Confirmed by Rosi Garcia ([id number]) on 06/16/2024 10:55:43 AM Calvin Fontenot MD ECG ORDERABLES Final Result Performing Organization Address City/[facility]/ZIP Co de Phone Number MUSE EKG * Troponin T, High Sensitivity X2 (now + 2hrs) (06/15/2024 8:00 PM EST) Troponin T High Sensitivity 14 6 - 14 ng/L 06/15/2024 8:35 PM EST [facility] Comment: Hn-Jmzovwhw-Y level of 52 ng/L or higher at 0-hour at presentation is recommended by the ESC 0/1-hour algorithm for identifying patients at high risk for ruling in acute myocardial infarction (AMI) in the appropriate clinical context. Repeat troponin testing 1-3 hours after the initial sample may be helpful in assessing for ongoing myocardial injury. Troponin elevations can be seen in several other non-infarct conditions, and the change (delta) should be evaluated in line with the 4th Duffield Definition of AMI. Troponin baseline and serial elevation for a significant delta should be interpreted with clinical presentation, history, signs and symptoms, ECG, and biomarker concentrations. For inpatient setting: Value <12ng/L is considered negative for all genders. 0-1hr: A delta change of <3 will be considered negative/flat if chest pain onset >3 hours 0-3hr: A delta change of <7 will be considered negative/flat Blood Structure of peripheral vein / Unknown Venipuncture / Unknown 06/15/2024 8:00 PM EST 06/15/2024 8:09 PM EST Calvin Fontenot MD LAB BLOOD ORDERABLES Final R esult Performing Organization Address City/[facility]/ZIP Co de Phone Number [facility] [address] [place] [address], * N-terminal ProBrain Natriuretic Peptide (06/15/2024 8:00 PM EST) Pro-B-Type Natriuretic Peptide 295 <=900 pg/mL 06/15/2024 8:33 PM EST [facility] Comment: RULE IN CHF >/= 450 pg/mL for patients <50 years old RULE IN CHF >/= 900 pg/mL for patients 50-75 years old RULE IN CHF >/= 1800 pg/mL for patients >75 years old RULE OUT CHF </= 300 pg/mL (not age specific) Blood Structure of peripheral vein / Unknown Venipuncture / Unknown 06/15/2024 8:00 PM EST 06/15/2024 8:09 PM EST Calvin Fontenot MD LAB BLOOD ORDERABLES Final R esult [facility] [address] [place] [phone], * (ABNORMAL) Basic Metabolic Panel (06/15/2024 8:00 PM EST) NA 142 136 - 145 mmol/L 06/15/2024 8:35 PM EST [facility] K 4.6 3.5 - 5.1 mmol/L 06/15/2024 8:35 PM EST [facility] Cl 109 98 - 109 mmol/L 06/15/2024 8:35 PM EST [facility] CO2 23 22 - 32 mmol/L 06/15/2024 8:35 PM EST [facility] BUN 30(H) 8 - 23 mg/dL 06/15/2024 8:35 PM EST [facility] Creatinine 1.25(H) 0.50 - 1.12 mg/dL 06/15/2024 8:35 PM EST [facility] Glucose 126(H) 60 - 99 mg/dL 06/15/2024 8:35 PM EST [facility] Calcium 8.9 8.4 - 10.4 mg/dL 06/15/2024 8:35 PM EST [facility] Anion Gap 15 >=0 06/15/2024 8:35 PM EST [facility] eGFR 46(L) >=60 mL/min/1. 73m2 06/15/2024 8:35 PM EST [facility] Comment:The estimated glomer ular [...] peripheral vein / Unknown Venipuncture / Unknown 06/15/2024 8:00 PM EST 06/15/2024 8:09 PM EST us Calvin Fontenot MD LAB BLOOD ORDERABLES Final R esult [facility] [address] [place] [address], * (ABNORMAL) CBC Auto Differential (06/15/2024 8:00 PM EST) WBC 4.9 4.8 - 10.8 10*3/uL 06/15/2024 8:19 PM EST [facility] RBC 3.86(L) 4.20 - 5.40 10*6/uL 06/15/2024 8:19 PM EST [facility] Hemoglobin 11.4(L) 11.7 - 15.5 g/dL 06/15/2024 8:19 PM EST [facility] Hematocrit 35.2(L) 35.7 - 45.8 % 06/15/2024 8:19 PM EST [facility] MCV 91.2 81.0 - 99.0 fL 06/15/2024 8:19 PM EST [facility] MCH 29.5 26.0 - 34.0 pg 06/15/2024 8:19 PM EST [facility] MCHC 32.4 31.0 - 36.0 g/dL 06/15/2024 8:19 PM EST [facility] RDW 12.9 12.0 - 15.0 % 06/15/2024 8:19 PM EST [facility] RDW Standard Deviation 43.3 36.4 - 46.3 fL 06/15/2024 8:19 PM EST [facility] Platelets 190 140 - 440 10*3/uL 06/15/2024 8:19 PM EST [facility] MPV 10.0 9.4 - 12.3 fL 06/15/2024 8:19 PM [facility] Neutrophil % 53.9 50.0 - 75.0 % 06/15/2024 8:19 PM [facility] Immature Grans % 0.4 0.0 - 0.9 % 06/15/2024 8:19 PM EST [facility] Lymphocyte % 32.0 20.0 - 44.0 % 06/15/2024 8:19 PM EST [facility] Monocyte % 10.0 0.0 - 14.0 % 06/15/2024 8:19 PM EST [facility] Eosinophil % 3.3 0.0 - 5.0 % 06/15/2024 8:19 PM EST [facility] Basophil % 0.4 0.0 - 2.0 % 06/15/2024 8:19 PM EST [facility] Neutrophil # 2.63 1.80 - 7.70 10*3/uL 06/15/2024 8:19 PM EST [facility] Immature Grans # <0.03 0.00 - 0.03 10*3/uL 06/15/2024 8:19 PM EST [facility] Lymphocyte # 1.60 1.00 - 4.75 10*3/uL 06/15/2024 8:19 PM EST [facility] Monocyte # 0.50 0.00 - 0.60 10*3/uL 06/15/2024 8:19 PM EST [facility] Eosinophil # 0.20 0.00 - 0.80 10*3/uL 06/15/2024 8:19 PM EST [facility] Basophil # <0.03 0.00 - 0.20 10*3/uL 06/15/2024 8:19 PM EST [facility] nRBC % 0.0 0 - 0 /100 WBCs 06/15/2024 8:19 PM EST [facility] nRBC # <0.01 0.00 - 0.13 10*3/uL 06/15/2024 8:19 PM EST [facility] Blood Structure of peripheral vein / Unknown Venipuncture / Unknown 06/15/2024 8:00 PM EST 06/15/2024 8:09 PM EST Calvin Fontenot MD LAB BLOOD ORDERABLES Final R esult [facility] [address] [place] [address] [address] [place] [address], * COVID-19, Flu A/B & RSV RNA PCR, Symptomatic (06/15/2024 7:58 PM EST) Pathologist [facility] PCR, SARS CoV-2 RNA Not Detected Not Detected [employer] 06/15/2024 8:48 PM EST [facility] Flu A RNA PCR Not Detected Not Detected [employer] 06/15/2024 8:48 PM EST [facility] Flu B RNA PCR Not Detected Not Detected [employer] 06/15/2024 8:48 PM EST [facility] RSV RNA PCR Not Detected Not Detected [employer] 06/15/2024 8:48 PM EST [facility] Comment: Limitations: This RSV test is suitable for the pediatric population (less than 19 years of age) only. Performance characteristics have not been established for use with patients older than 19 years of age and immunocompromised patients. Test results must be evaluated in conjuction with other clinical data available to the physician. Swab Specimen from nasopharyngeal structure / Unknown Non-Blood Collection / Unknown 06/15/2024 7:58 PM EST 06/15/2024 8:09 PM EST Narrative [facility] - 06/15/2024 8:48 PM EST Methodology: The [employer] GeneXpert CoV-2/Flu/RSV plus assay is For Use Under an Emergency Use Authorization (EUA) Only with [facility]. The CoV-2/Flu/RSV plus assay is a rapid, multiplexed real-time RT-PCR assay intended for the simultaneous qualitative detection and differentiation of RNA from SARS-CoV-2, influenza A, influenza B, and Respiratory Syncytial Virus (RSV) in specimens collected from individuals suspected of a respiratory viral infection, by their healthcare provider. A positive test result for SARS-CoV-2, influenza or RSV indicates that RNA from that virus was detected. A negative test result indicates that RNA virus was not present in the specimen above the limit of detection. Therefore, a negative result does not rule out SARS-CoV-2, influenza or RSV infection and should not be used as the sole basis for treatment or other patient management decisions. us Calvin Fontenot MD LAB BODY FLUIDS AND STOOLS O RDERABLES Final Result [facility] [address] [place] [address], [place] [phone] * HEART & VASCULAR - SCANNED (06/15/2024) Anatomical Region Laterality Modality Other us Onbase Scan Froylan SCANNED PROCEDURES Final Resu lt * HEART & VASCULAR - SCANNED (06/15/2024) Anatomical Region Laterality Modality Other us Onbase Scan Froylan SCANNED PROCEDURES Final Resu lt * HEART & VASCULAR - SCANNED (06/15/2024) Anatomical Region Laterality Modality Other us Onbase Scan Froylan SCANNED PROCEDURES Final Resu lt documented in this encounter Visit Diagnoses Diagnosis Pneumonia due to organism- Primary Pneumonia due to other specified organism Chronic obstructive pulmonary disease with acute exacerbation (HCC) A-fib ([facility]) (HCC) Atrial fibrillation Lumbar canal stenosis HLD (hyperlipidemia) Other and unspecified hyperlipidemia Hypothyroidism Unspecified hypothyroidism Severe asthma with exacerbation Acute respiratory failure with hypoxia (HCC) Acute pulmonary edema (HCC) Unspecified acute edema of lung Diastolic CHF, acute ([facility]) (HCC) Elevated serum creatinine Other nonspecific findings on examination of blood Constipation Unspecified constipation Hyperkalemia Hyperpotassemia documented in this encounter Admitting Diagnoses Diagnosis Pneumonia due to organism Pneumonia due to other specified organism documented in this encounter Administered Medications Inactive Administered Medications - up to 3 most recent administrations Medication Order MAR Action Action Date Dose Rate Site acetaminophen (TYLENOL) tablet 650 mg 650 mg, oral, Every 4 hours PRN, Mild pain or 1-3 (on the numeric pain scale), Moderate pain or 4-6 (on the numeric pain scale), Severe pain or 7-10 (on the numeric pain scale), Starting on 06/16/24 at 0357, Until Mon06/17/24 at 1403, To be given in conjunction with other pain medications if ordered as part of multi-modal therapy. Given 06/16/2024 5:28 PM EST 650 mg acetaminophen (TYLENOL) tablet 650 mg 650 mg, oral, Every 4 hours PRN, Mild pain or 1-3 (on the numeric pain scale), Starting on Mon06/17/24 at 1403, Until Mon06/26/24 at 2009, To be given in conjunction with other pain medications if ordered as part of multi-modal therapy. Given 06/24/2024 3:38 AM EST 650 mg Given 06/22/2024 9:57 AM EST 650 mg acetaminophen (TYLENOL) tablet 975 mg 975 mg, oral, Once, On 06/15/24 at 2300, 1 dose Given 06/15/2024 10:52 PM EST 975 mg albuterol 2.5 mg/3 mL (0.083%) nebulizer solution 2.5 mg 2.5 mg, inhalation, Every 4 hours PRN, wheezing, shortness of breath, Starting on Mon06/17/24 at 0920, Until Mon06/26/24 at 2009 Given 06/20/2024 9:00 PM EST 2.5 mg aluminum-magnesium hydroxide-simethicone (MAALOX PLUS) 200-200-20 mg/5 mL suspension 30 mL 30 mL, oral, Every 4 hours PRN, indigestion, heartburn, Starting on Mon06/20/24 at 1653, Until Mon06/26/24 at 2010 Given 06/24/2024 1:45 PM EST 30 mL Given 06/23/2024 12:30 PM EST 30 mL Given 06/22/2024 9:56 AM EST 30 mL apixaban (ELIQUIS) tablet 5 mg 5 mg, oral, Every 12 hours scheduled, First dose on Mon06/16/24 at 0900, Until Discontinued, Contraindications: Active pathological bleeding, mechanical valve or moderate to severe mitral stenosis, triple positive antiphospholipid syndrome, /: No contraindications, Indication: Atrial Fibrillation, Is this a new start? Continuation Given 06/26/2024 8:11 AM EST 5 mg Given 06/25/2024 8:18 PM EST 5 mg Given 06/25/2024 9:27 AM EST 5 mg azithromycin (ZITHROMAX) 500 mg in 0.9% NaCl 250 mL IVPB 500 mg, intravenous, at 250 mL/hr, Administer over 1 Hours, Once, On Mon06/16/24 at 0100, 1 dose, ADD-[place] bag, Reason for Therapy: Bacterial Infection Documented, Indication: Pneumonia New Bag/Syringe 06/16/2024 2:13 AM EST 500 mg 250 mL/hr azithromycin (ZITHROMAX) 500 mg in 0.9% NaCl 250 mL IVPB 500 mg, intravenous, at 250 mL/hr, Administer over 1 Hours, Daily, First dose (after last reorder) on Mon06/17/24 at 0400, 5 doses, Last dose on Mon06/21/24 at 0400, ADD-[place] bag, Reason for Therapy: Bacterial Infection Documented, Indication: Pneumonia New Bag/Syringe 06/18/2024 5:17 AM EST 500 mg 250 mL/hr New Bag/Syringe 06/17/2024 5:16 AM EST 500 mg 250 mL/h r azithromycin (ZITHROMAX) tablet 500 mg 500 mg, oral, Daily, First dose on Mon06/19/24 at 0900, 3 doses, Last dose on Mon06/21/24 at 0900, Give 2 hours before or after Ca+, Mg+, Al- based antacids., Reason for Therapy: Bacterial Infection Suspected, Indication: Pneumonia Given 06/20/2024 9:37 AM EST 500 mg Given 06/19/2024 10:17 AM EST 500 mg benzonatate (TESSALON) capsule 100 mg 100 mg, oral, 3 times daily PRN, cough, Starting on 06/16/24 at 0355, Until Mon06/26/24 at 2009, Swallow capsule whole. Do not chew. Given 06/17/2024 5:21 AM EST 100 mg bisacodyL (DULCOLAX) EC tablet 5 mg 5 mg, oral, Daily PRN, constipation, Starting on Rosalba 06/20/24 at 2128, Until Mon06/26/24 at 2009, Do not crush. Given 06/24/2024 3:44 AM EST 5 mg bisacodyL (DULCOLAX) suppository 10 mg 10 mg, rectal, Once, On 06/22/24 at 1515, 1 dose Given 06/22/2024 5:07 PM EST 10 mg bisacodyL (DULCOLAX) suppository 10 mg 10 mg, rectal, Once, On 06/23/24 at 1815, 1 dose Given 06/23/2024 6:20 PM EST 10 mg bisacodyL (DULCOLAX) suppository 10 mg 10 mg, rectal, Once, On Mon06/26/24 at 1215, 1 dose Given 06/26/2024 1:14 PM EST 10 mg budesonide (PULMICORT) 1 mg/2 mL nebulizer solution 1 mg 1 mg, inhalation, Every 12 hours scheduled, First dose on 06/17/24 at 0945, Until Discontinued, Rinse mouth with water after use to reduce aftertaste and incidence of candidiasis. Do not swallow. Given 06/26/2024 8:21 AM EST 1 mg Given 06/25/2024 8:17 PM EST 1 mg Given 06/25/2024 9:30 AM EST 1 mg busPIRone (BUSPAR) tablet 7.5 mg 7.5 mg, oral, 2 times daily, First dose on 06/16/24 at 0900, Until Discontinued Given 06/26/2024 8:11 AM EST 7.5 mg Given 06/25/2024 8:18 PM EST 7.5 mg Given 06/25/2024 9:26 AM EST 7.5 mg calcium carbonate (TUMS) chewable tablet 1,000 mg 1,000 mg, oral, 2 times daily PRN, heartburn, indigestion, Starting on Mon06/19/24 at 0959, Until Mon06/26/24 at 2009 Given 06/20/2024 2:12 PM EST 1,000 mg Given 06/19/2024 10:10 AM EST 1,000 mg calcium gluconate 1 g in 0.9% NaCl 50 mL IVPB premix 1 g, intravenous, Administer over 0.5 Hours, Every 30 min, First dose on Mon06/24/24 at 0900, 2 doses, Last dose on Mon06/24/24 at 0930, Total dose = 2 g New Bag/Syringe 06/24/2024 11:07 AM EST 1 g New Bag/Syringe 06/24/2024 10:36 AM EST 1 g cefepime (MAXIPIME) 2 g in 0.9% NaCl 100 mL Mini-Bag Plus 2 g, intravenous, at 200 mL/hr, Administer over 30 Minutes, Once, On Mon06/16/24 at 0100, 1 dose, Infuse over 30 minutes. Mini-Bag Plus, Reason for Therapy: Bacterial Infection Documented, Indication: Pneumonia New Bag/Syringe 06/16/2024 1:24 AM EST 2 g 200 mL /hr cefTRIAXone (ROCEPHIN) injection 1 g 1 g, intravenous, Administer over 3 Minutes, Every 24 hours scheduled, First dose on Mon06/16/24 at 0900, 5 doses, Last dose on Mon06/20/24 at 0900, Dilute 1 g with 10 mL of sterile water for injection. Administer over 3-5 minutes., Reason for Therapy: Bacterial Infection Suspected, Indication: Pneumonia Given 06/20/2024 9:29 AM EST 1 g Given 06/19/2024 10:30 AM EST 1 g Given 06/18/2024 11:08 AM EST 1 g cefTRIAXone (ROCEPHIN) injection 1 g 1 g, intravenous, Administer over 3 Minutes, Every 24 hours scheduled, First dose on Mon06/21/24 at 1130, 5 doses, Last dose on Mon06/25/24 at 0900, Dilute 1 g with 10 mL of sterile water for injection. Administer over 3-5 minutes., Reason for Therapy: Bacterial Infection Suspected, Indication: Pneumonia Given 06/24/2024 8:23 AM EST 1 g Given 06/23/2024 11:16 AM EST 1 g Given 06/22/2024 8:19 AM EST 1 g codeine-guaiFENesin (CHERATUSSIN AC) 20-200 mg/10 mL liquid 10 mg of codeine 10 mg of codeine (5 mL), oral, Every 4 hours PRN, cough, Starting on Mon06/17/24 at 0921, Until Mon06/26/24 at 2009, Assess pain, sedation, and respiratory rate prior to each opioid administration. Given 06/20/2024 9:32 AM EST 10 mg of codeine Given 06/19/2024 9:25 PM EST 10 mg of codeine Given 06/17/2024 7:47 PM EST 10 mg of codeine dextrose (D50W) IV injection 25 g 25 g, intravenous, Once, On Mon06/24/24 at 0845, 1 dose Given 06/24/2024 10:19 AM EST 25 g dilTIAZem CD (CARDIZEM CD) capsule 120 mg 120 mg, oral, Daily, First dose on Mon06/17/24 at 0900, Until Discontinued, Hold for SBP less than 115 mmHg or HR less than 50 bpm. Do not open capsule. Given 06/26/2024 8:13 AM EST 120 mg Given 06/25/2024 9:26 AM EST 120 mg Given 06/24/2024 7:59 AM EST 120 mg diphenhydrAMINE (BENADRYL) tablet 25 mg 25 mg, oral, Every 6 hours PRN, itching, Starting on Mon06/17/24 at 2144, Until Mon06/26/24 at 2010 docusate sodium (COLACE) capsule 100 mg 100 mg, oral, 2 times daily, First dose on Mon06/21/24 at 1700, Until Discontinued Given 06/26/2024 9:00 AM EST 100 mg Given 06/25/2024 4:00 PM EST 100 mg Given 06/25/2024 9:26 AM EST [address] (CYMBALTA) capsule 60 mg 60 mg, oral, Daily, First dose on Mon06/17/24 at 0900, Until Discontinued, Do not crush or chew. Given 06/26/2024 8:10 AM EST 60 mg Given 06/25/2024 9:26 AM EST 60 mg Given 06/24/2024 7:58 AM EST 60 mg flecainide (TAMBOCOR) tablet 100 mg 100 mg, oral, 2 times daily, First dose on Mon06/16/24 at 0900, Until Discontinued Given 06/26/2024 8:12 AM EST 100 mg Given 06/25/2024 4:00 PM EST 100 mg Given 06/25/2024 9:26 AM EST 100 mg furosemide (LASIX) injection 40 mg 40 mg, intravenous, Daily, First dose on Mon06/19/24 at 1000, Until Discontinued Given 06/20/2024 9:34 AM EST 40 mg Given 06/19/2024 10:10 AM EST 40 mg guaiFENesin ER (MUCINEX) tablet 600 mg 600 mg, oral, Every 12 hours scheduled, First dose on Mon06/17/24 at 0945, Until Discontinued, Do not crush. Given 06/26/2024 8:13 AM EST 600 mg Given 06/25/2024 8:18 PM EST 600 mg Given 06/25/2024 9:27 AM EST 600 mg HYDROmorphone PF (DILAUDID) injection 0.5 mg 0.5 mg, intravenous, Once, On Mon06/17/24 at 0200, 1 dose, Assess pain, sedation, and respiratory rate prior to each opioid administration. Given 06/17/2024 2:12 AM EST 0.5 mg insulin regular (HumuLIN R,NovoLIN R - 100 units/mL) injection 10 Units 10 Units, intravenous, Once, On Mon06/24/24 at 0845, 1 dose, Administer within 30 minutes of fingerstick blood glucose. Given 06/24/2024 10:32 AM EST 10 Un its iohexoL (OMNIPAQUE) 350 mg iodine/mL contrast 80 mL 80 mL, intravenous, Once, On Mon06/16/24 at 0000, 1 dose Given 06/15/2024 11:49 PM EST 80 mL ipratropium-albuteroL (DUO-NEB) 0.5-2.5 mg/3 mL nebulizer solution 3 mL 3 mL, inhalation, Once, On Mon06/16/24 at 0345, 1 dose Given 06/16/2024 6:00 AM EST 3 mL ipratropium-albuteroL (DUO-NEB) 0.5-2.5 mg/3 mL nebulizer solution 3 mL 3 mL, inhalation, Every 4 hours PRN, wheezing, shortness of breath, Starting on Mon06/16/24 at 0913, Until Mon06/26/24 at 2010 Given 06/24/2024 5:57 PM EST 3 mL Given 06/17/2024 9:18 AM EST 3 mL Given 06/16/2024 9:24 AM EST 3 mL ipratropium-albuteroL (DUO-NEB) 0.5-2.5 mg/3 mL nebulizer solution 3 mL 3 mL, inhalation, Every 4 hours scheduled, First dose on Mon06/17/24 at 0945, Until Discontinued Given 06/21/2024 4:40 AM EST 3 mL Given 06/20/2024 4:42 PM EST 3 mL Given 06/20/2024 12:21 PM EST 3 mL ipratropium-albuteroL (DUO-NEB) 0.5-2.5 mg/3 mL nebulizer solution 3 mL 3 mL, inhalation, 4 times daily, First dose (after last modification) on Mon06/21/24 at 0900, Until Discontinued Given 06/26/2024 1:49 PM EST 3 mL Given 06/26/2024 8:21 AM EST 3 mL Given 06/25/2024 8:17 PM EST 3 mL ketorolac (TORADOL) injection 15 mg 15 mg, intravenous, Every 6 hours PRN, Moderate pain or 4-6 (on the numeric pain scale), Starting on Mon06/17/24 at 1400, Until 06/22/24 at 1506 Given 06/20/2024 5:20 AM EST 15 mg Given 06/19/2024 10:14 AM EST 15 mg Given 06/19/2024 2:52 AM EST 15 mg lactulose 20 gram/30 mL oral solution 10 g 10 g, oral, Once, On Mon06/26/24 at 1215, 1 dose Given 06/26/2024 1:13 PM EST 10 g lactulose 20 gram/30 mL oral solution 20 g 20 g, oral, Once, On Mon06/23/24 at 2000, 1 dose Given 06/23/2024 8:43 PM EST 20 g levothyroxine (SYNTHROID, LEVOTHROID) tablet 112 mcg 112 mcg, oral, Daily, First dose on Mon06/17/24 at 0600, Until Discontinued Given 06/26/2024 6:07 AM EST 112 mcg Given 06/25/2024 4:53 AM EST 112 mcg Given 06/24/2024 5:18 AM EST 112 mcg lidocaine (LIDODERM) 5% patch 1 patch 1 patch, topical, Administer over 12 Hours, Once, On Mon06/15/24 at 2300, 1 dose, Apply to left ribs. Patch Applied 06/15/2024 10:52 PM EST 1 patch Left Upper Outer Quadrant LORazepam (ATIVAN) tablet 1 mg 1 mg, oral, Once, On Mon06/21/24 at 1445, 1 dose Given 06/21/2024 3:00 PM EST 1 mg LORazepam (ATIVAN) tablet 1 mg 1 mg, oral, Every 6 hours PRN, anxiety, agitation, Starting on Mon06/22/24 at 1457, Until Mon06/26/24 at 2009 Given 06/25/2024 8:40 PM EST 1 mg Given 06/24/2024 10:44 AM EST 1 mg Given 06/23/2024 3:50 PM EST 1 mg losartan (COZAAR) tablet 50 mg 50 mg, oral, 2 times daily, First dose on Mon06/17/24 at 1700, Until Discontinued, Hold for SBP < 120 mmHg., On hold since Mon06/24/2024 at 0839 until manually unheld Given 06/24/2024 7:59 AM EST 50 mg Given 06/23/2024 5:24 PM EST 50 mg Given 06/23/2024 9:51 AM EST 50 mg magnesium sulfate 2 g in SWFI 50 mL IVPB premix 2 g, intravenous, at 25 mL/hr, Administer over 2 Hours, Once, On Mon06/17/24 at 1000, 1 dose, Total dose = 2 g New Bag/Syringe 06/17/2024 11:37 AM EST 2 g 25 mL/hr magnesium sulfate 2 g in SWFI 50 mL IVPB premix 2 g, intravenous, at 25 mL/hr, Administer over 2 Hours, Once, On Mon06/18/24 at 1045, 1 dose, Total dose = 2 g New Bag/Syringe 06/18/2024 11:10 AM EST 2 g 25 mL/hr methocarbamoL (ROBAXIN) tablet 750 mg 750 mg, oral, 3 times daily, First dose on 06/16/24 at 2100, Until Discontinued Given 06/26/2024 1:12 PM EST 750 mg Given 06/26/2024 8:12 AM EST 750 mg Given 06/25/2024 8:18 PM EST 750 mg methylPREDNISolone sodium succinate (SOLU-Medrol) injection 40 mg 40 mg, intravenous, Once, On 06/16/24 at 0345, 1 dose Given 06/16/2024 4:08 AM EST 40 mg methylPREDNISolone sodium succinate (SOLU-Medrol) injection 40 mg 40 mg, intravenous, Every 8 hours, First dose on Mon06/16/24 at 1200, Until Discontinued Given 06/17/2024 5:14 AM EST 4 0 mg Given 06/16/2024 7:11 PM EST 40 mg Given 06/16/2024 11:45 AM EST 40 mg methylPREDNISolone sodium succinate (SOLU-Medrol) injection 40 mg 40 mg, intravenous, Every 8 hours, First dose (after last modification) on 06/22/24 at 2100, Until Discontinued Given 06/24/2024 1:44 PM EST 40 mg Given 06/24/2024 3:44 AM EST 40 mg Given 06/23/2024 8:44 PM EST 40 mg methylPREDNISolone sodium succinate (SOLU-Medrol) injection 60 mg 60 mg, intravenous, Every 8 hours, First dose (after last modification) on Mon06/17/24 at 1200, Until Discontinued Given 06/18/2024 5:07 AM EST 60 mg Given 06/17/2024 7:46 PM EST 60 mg Given 06/17/2024 11:35 AM EST 60 mg methylPREDNISolone sodium succinate (SOLU-Medrol) injection 60 mg 60 mg, intravenous, Every 6 hours, First dose (after last modification) on Mon06/18/24 at 1100, Until Discontinued Given 06/22/2024 1:12 PM EST 60 mg Given 06/22/2024 5:36 AM EST 60 mg Given 06/21/2024 9:37 PM EST 60 mg naloxone (NARCAN) injection 0.04 mg 0.04 mg, intravenous, Every 3 minutes as needed, opioid reversal, respiratory depression, Starting on 06/16/24 at 1724, Until Mon06/26/24 at 2009, Partial opioid reversal for respiratory rate less than 10 (POSS greater than 2 or RASS less than 0). Notify LIP if naloxone is administered to evaluate the patient to determine if additional naloxone doses are needed and to reevaluate the patient's opioid orders. naloxone (NARCAN) injection 0.4 mg 0.4 mg, intravenous, Every 2 hour PRN, opioid reversal, respiratory depression, Starting on 06/16/24 at 1724, Until Mon06/26/24 at 2009, Complete opioid reversal for respiratory rate less than 10 (POSS greater than 2 or RASS less than 0). Notify LIP if naloxone is administered to evaluate the patient to determine if additional naloxone doses are needed and to reevaluate the patient's opioid orders. nystatin (MYCOSTATIN) 100,000 unit/mL suspension 500,000 Units 500,000 Units, oral, 4 times daily, First dose on Mon06/22/24 at 1700, Until Discontinued, Swish and swallow. Given 06/26/2024 1:49 PM ES T 500,000 Units Given 06/26/2024 8:23 AM EST 500,000 Units Given 06/25/2024 8:20 PM EST 500,000 Units ondansetron (ZOFRAN) tablet 4 mg 4 mg, oral, Every 8 hours PRN, nausea, vomiting, Starting on Mon06/16/24 at 0357, Until Mon06/26/24 at 2009, If multiple PRN medications ordered for nausea/vomiting, use first. If patient continues to have nausea/vomiting sooner than 8 hours after the previous anti-emetic dose, do not repeat the same anti-emetic(s). Instead, administer a different anti-emetic from selection. Given 06/21/2024 9:30 AM EST 4 mg Given 06/20/2024 4:47 PM EST 4 mg Given 06/17/2024 7:48 PM EST [address] (PROTONIX) tablet 40 mg 40 mg, oral, Daily, First dose on Mon06/21/24 at 0900, Until Discontinued, Do not crush. Given 06/26/2024 8:12 AM EST 4 0 mg Given 06/25/2024 9:26 AM EST 40 mg Given 06/24/2024 8:00 AM EST 40 mg patiromer (VELTASSA) packet 8.4 g 8.4 g, oral, Once, On 06/23/24 at 1145, 1 dose, Mix with water to dissolve and drink immediately. Add more water if powder remains. Administer other oral medications at least 3 hours before or 3 hours after patiromer. Do not withhold if patient is not eating. Refrigerate. Given 06/23/2024 12:28 PM EST 8.4 g polyethylene glycol 3350 (MIRALAX) packet 17 g 17 g, oral, Daily PRN, constipation, Starting on Mon06/20/24 at 2128, Until Mon06/26/24 at 2010, Dissolve each 17 g packet in 4-8 ounces of water or juice prior to administration. Given 06/26/2024 8:14 AM EST 1 7 g Given 06/24/2024 8:00 AM EST 17 g Given 06/23/2024 12:39 AM EST 17 g polyethylene glycol 3350 (MIRALAX) packet 17 g 17 g, oral, Once, On 06/23/24 at 1745, 1 dose, Dissolve each 17 g packet in 4-8 ounces of water or juice prior to administration. Given 06/23/2024 6:21 PM EST 1 7 g predniSONE (DELTASONE) tablet 50 mg 50 mg, oral, Daily, First dose on Mon06/25/24 at 0900, Until Discontinued Given 06/26/2024 8:11 AM EST 50 mg Given 06/25/2024 9:26 AM EST 50 mg pregabalin (LYRICA) capsule 150 mg 150 mg, oral, 2 times daily, First dose on 06/16/24 at 1715, Until Discontinued Given 06/22/2024 8:19 AM EST 150 mg Given 06/21/2024 5:02 PM EST 150 mg Given 06/21/2024 8:56 AM EST 150 mg pregabalin (LYRICA) capsule 200 mg 200 mg, oral, 2 times daily, First dose (after last modification) on 06/22/24 at 1700, Until Discontinued Given 06/26/2024 8:10 AM EST 200 mg Given 06/25/2024 4:00 PM EST 200 mg Given 06/25/2024 9:26 AM EST 200 mg senna (SENOKOT) tablet 17.2 mg 17.2 mg, oral, Nightly PRN, constipation, no bowel movement x 24 hours, Starting on Mon06/16/24 at 0357, Until Mon06/21/24 at 1422 Given 06/20/2024 9:04 PM ES T 17.2 mg Given 06/19/2024 10:47 AM EST 17.2 mg senna (SENOKOT) tablet 17.2 mg 17.2 mg, oral, Nightly, First dose on Mon06/21/24 at 2100, Until Discontinued Given 06/25/2024 8:18 PM EST 17.2 mg Given 06/24/2024 9:29 PM EST 17.2 mg Given 06/23/2024 8:43 PM EST 17.2 mg sodium chloride 0.9% flush 2.5-10 mL 2.5-10 mL, intravenous, See admin instructions, Starting on Mon06/16/24 at 0357, Until Mon06/26/24 at 2010, Flush each lumen with a pulsatile motion with a minimum of 2.5 mL before and after use. Please note which lumen(s) have been flushed in comments section. sodium chloride 0.9% flush 2.5-10 mL 2.5-10 mL, intravenous, Every 12 hours scheduled, First dose on Mon06/16/24 at 0900, Until Discontinued, Flush each lumen with a pulsatile motion with a minimum of 2.5 mL every 12 hours. Please note which lumen(s) have been flushed in comments section. Given 06/26/2024 8:23 AM EST 5 mL Given 06/25/2024 8:20 PM EST 10 mL Given 06/25/2024 9:27 AM EST 10 mL sodium phosphates (FLEET ADULT) enema 133 mL 133 mL, rectal, Once, On 06/22/24 at 1515, 1 dose, Please give if supp. Ineffective. Given 06/22/2024 6:58 PM EST 13 3 mL sodium phosphates (FLEET ADULT) enema 133 mL 133 mL, rectal, Once, On 06/25/24 at 1245, 1 dose Given 06/25/2024 1:08 PM EST 133 mL sodium zirconium cyclosilicate (LOKELMA) powder 10 g 10 g, oral, Once, On Mon06/26/24 at 1430, 1 dose, Separate administration by two hours from clopidogreL, dabigatran, tacrolimus, and warfarin. Given 06/26/2024 3:46 PM EST 10 g sodium zirconium cyclosilicate (LOKELMA) powder 15 g 15 g, oral, Daily, First dose on Mon06/24/24 at 0900, Until Discontinued, Separate administration by two hours from clopidogreL, dabigatran, tacrolimus, and warfarin. Given 06/26/2024 8:16 AM EST 15 g Given 06/25/2024 9:25 AM EST 15 g Given 06/24/2024 10:44 AM EST 15 g traMADoL (ULTRAM) tablet 100 mg 100 mg, oral, Every 8 hours PRN, Moderate pain or 4-6 (on the numeric pain scale), Starting on 06/22/24 at 1459, Until Mon06/26/24 at 2010, Assess pain, sedation, and respiratory rate prior to each opioid administration. Given 06/26/2024 8:37 AM EST 100 mg Given 06/25/2024 4:00 PM EST 100 mg Given 06/25/2024 4:53 AM EST 100 mg traMADoL (ULTRAM) tablet 50 mg 50 mg, oral, Every 8 hours PRN, Moderate pain or 4-6 (on the numeric pain scale), Severe pain or 7-10 (on the numeric pain scale), Starting on 06/16/24 at 1724, Until Mon06/18/24 at 1447, Assess pain, sedation, and respiratory rate prior to each opioid administration. Given 06/17/2024 7:47 PM EST 50 mg Given 06/17/2024 9:17 AM EST 50 mg Given 06/16/2024 11:57 PM EST 50 mg traMADoL (ULTRAM) tablet 50 mg 50 mg, oral, Every 8 hours PRN, Moderate pain or 4-6 (on the numeric pain scale), Starting on Mon06/18/24 at 1447, Until 06/22/24 at 1506, Assess pain, sedation, and respiratory rate prior to each opioid administration. Given 06/22/2024 5:34 AM EST 50 mg Given 06/21/2024 8:39 PM EST 50 mg Given 06/21/2024 9:05 AM EST 50 mg traZODone (DESYREL) tablet 100 mg 100 mg, oral, Nightly, First dose (after last modification) on Mon06/21/24 at 2100, Until Discontinued Given 06/21/2024 8:36 PM EST 100 mg traZODone (DESYREL) tablet 50 mg 50 mg, oral, Nightly, First dose on 06/16/24 at 2100, Until Discontinued Given 06/20/2024 8:55 PM EST 50 mg Given 06/19/2024 9:18 PM EST 50 mg Given 06/18/2024 8:11 PM EST 50 mg traZODone (DESYREL) tablet 50 mg 50 mg, oral, Once, On Rosalba 06/20/24 at 2315, 1 dose Given 06/20/2024 11:33 PM EST 50 mg traZODone (DESYREL) tablet 50 mg 50 mg, oral, Nightly, First dose (after last modification) on 06/22/24 at 2100, Until Discontinued Given 06/25/2024 8:18 PM EST 50 mg Given 06/24/2024 9:30 PM EST 50 mg Given 06/23/2024 8:44 PM EST 50 mg traZODone (DESYREL) tablet 50 mg 50 mg, oral, Once, On 06/23/24 at 0045, 1 dose Given 06/23/2024 12:56 AM EST 50 mg traZODone (DESYREL) tablet 50 mg 50 mg, oral, Nightly PRN, insomnia, Starting on 06/23/24 at 2229, Until Mon06/26/24 at 2010 documented in this encounter Active and Recently Administered Medications Times are shown in EST. Scheduled Medication Order 06/24/2024 06/25/2024 06/26/2024 apixaban (ELIQUIS) tablet 5 mg 5 mg, oral, Every 12 hours scheduled, First dose on 06/16/24 at 0900, Until Discontinued, Contraindications: Active pathological bleeding, mechanical valve or moderate to severe mitral stenosis, triple positive antiphospholipid syndrome, /: No contraindications, Indication: Atrial Fibrillation, Is this a new start? Continuation 0800 (Given - Provider: Elise Mills LPN)2130 (Given - Provider: Ailyn Washington LPN) 0927 (Given - Provider: Elsy Munoz LPN)2017 (Given - Provider: Ailyn Washington LPN) 0811 (Given - Provider: Solange Sosa LPN) bisacodyL (DULCOLAX) suppository 10 mg (COMPLETED) 10 mg, rectal, Once, On Mon06/26/24 at 1215, 1 dose 1314 (Given - Provider: Solange Sosa LPN) budesonide (PULMICORT) 1 mg/2 mL nebulizer solution 1 mg 1 mg, inhalation, Every 12 hours scheduled, First dose on Mon06/17/24 at 0945, Until Discontinued, Rinse mouth with water after use to reduce aftertaste and incidence of candidiasis. Do not swallow. 0757 (Given - Provider: Elise Mills LPN)2049 (Given - Provider: Mart Hernandez, HILARIA) 929 (Given - Provider: Sophia Fitzpatrick, HILARIA)2016 (Given - Provider: Ailyn Washington LPN) 0821 (Given - Provider: Solange Sosa LPN) busPIRone (BUSPAR) tablet 7.5 mg 7.5 mg, oral, 2 times daily, First dose on Mon06/16/24 at 0900, Until Discontinued 0759 (Given - Provider: Elise Mills LPN)2129 (Given - Provider: Ailyn Washington LPN) 09 (Given - Provider: Elsy Munoz LPN)2017 (Given - Provider: Ailyn Washington LPN) 0811 (Given - Provider: Solange Sosa LPN) calcium gluconate 1 g in 0.9% NaCl 50 mL IVPB premix (COMPLETED) 1 g, intravenous, Administer over 0.5 Hours, Every 30 min, First dose on Mon06/24/24 at 0900, 2 doses, Last dose on Mon06/24/24 at 0930, Total dose = 2 g 1036 (New Bag/Syringe - Provider: Elise Mills LPN)1107 (New Bag/Syringe - Provider: Elise Mills LPN)1200 (Stopped - Provider: Elise Mills LPN) cefTRIAXone (ROCEPHIN) injection 1 g (CANCELED) 1 g, intravenous, Administer over 3 Minutes, Every 24 hours scheduled, First dose on Mon06/21/24 at 1130, 5 doses, Last dose on Mon06/25/24 at 0900, Dilute 1 g with 10 mL of sterile water for injection. Administer over 3-5 minutes., Reason for Therapy: Bacterial Infection Suspected, Indication: Pneumonia 0823 (Given - Provider: Elise Mills LPN) dextrose (D50W) IV injection 25 g (COMPLETED) 25 g, intravenous, Once, On Mon06/24/24 at 0845, 1 dose 1019 (Given - Provider: Elise Mills LPN) dilTIAZem CD (CARDIZEM CD) capsule 120 mg 120 mg, oral, Daily, First dose on Mon06/17/24 at 0900, Until Discontinued, Hold for SBP less than 115 mmHg or HR less than 50 bpm. Do not open capsule. 0759 (Given - Provider: Elise Mills LPN) 09 (Given - Provider: Elsy Munoz LPN) 0813 (Given - Provider: Solange Sosa LPN) docusate sodium (COLACE) capsule 100 mg 100 mg, oral, 2 times daily, First dose on Mon06/21/24 at 1700, Until Discontinued 075 (Given - Provider: Elise Mills LPN)1756 (Given - Provider: Ailyn Washington LPN) 0926 (Given - Provider: Elsy Munoz LPN)1600 (Given - Provider: Ailyn Washington LPN) 0900 (Given - Provider: Solange Sosa LPN)1700 (Due) DULoxetine DR (CYMBALTA) capsule 60 mg 60 mg, oral, Daily, First dose on Mon06/17/24 at 0900, Until Discontinued, Do not crush or chew. 0758 (Given - Provider: Elise Mills LPN) 0926 (Given - Provider: Elsy Munoz LPN) 0810 (Given - Provider: Solange Sosa LPN) flecainide (TAMBOCOR) tablet 100 mg 100 mg, oral, 2 times daily, First dose on Mon06/16/24 at 0900, Until Discontinued 075 (Given - Provider: Elise Mills LPN)1756 (Given - Provider: Ailyn Washington LPN) 0926 (Given - Provider: Elsy Munoz LPN)1600 (Given - Provider: Ailyn Washington LPN) 0812 (Given - Provider: Solange Sosa LPN)1700 (Due) guaiFENesin ER (MUCINEX) tablet 600 mg 600 mg, oral, Every 12 hours scheduled, First dose on Mon06/17/24 at 0945, Until Discontinued, Do not crush. 0759 (Given - Provider: Elise Mills LPN)212 (Given - Provider: Ailyn Washington LPN) 09 (Given - Provider: Elsy Munoz LPN)2017 (Given - Provider: Ailyn Washington LPN) 0813 (Given - Provider: Solange Sosa LPN) insulin regular (HumuLIN R,NovoLIN R - 100 units/mL) injection 10 Units (COMPLETED) 10 Units, intravenous, Once, On Mon06/24/24 at 0845, 1 dose, Administer within 30 minutes of fingerstick blood glucose. 1032 (Given - Provider: Elise Mills LPN) ipratropium-albuteroL (DUO-NEB) 0.5-2.5 mg/3 mL nebulizer solution 3 mL 3 mL, inhalation, 4 times daily, First dose (after last modification) on Mon06/21/24 at 0900, Until Discontinued 0757 (Given - Provider: Elise Mills LPN)1343 (Given - Provider: Elise Mills LPN)1757 (Given - Provider: Ailyn Washington LPN)2050 (Given - Provider: Mart Hernandez, HILARIA) 0930 (Given - Provider: Sophia Fitzpatrick, HILARIA)1300 (Not Given - Provider: Elsy Munoz LPN - Reason: Patient/family refused)1601 (Given - Provider: Ailyn Washington LPN)2017 (Given - Provider: Ailny Washington LPN) 0821 (Given - Provider: Solange Sosa LPN)1349 (Given - Provider: Solange Sosa LPN)1700 (Due) lactulose 20 gram/30 mL oral solution 10 g (COMPLETED) 10 g, oral, Once, On Mon06/26/24 at 1215, 1 dose 1313 (Given - Provider: Solange Sosa LPN) levothyroxine (SYNTHROID, LEVOTHROID) tablet 112 mcg 112 mcg, oral, Daily, First dose on Mon06/17/24 at 0600, Until Discontinued 0518 (Given - Provider: Marleny Sterling LPN) 0453 (Given - Provider: Meseret Hampton RN) 0607 (Given - Provider: Rosemary Hinton RN) losartan (COZAAR) tablet 50 mg 50 mg, oral, 2 times daily, First dose on Mon06/17/24 at 1700, Until Discontinued, Hold for SBP < 120 mmHg., On hold since Mon06/24/2024 at 0839 until manually unheld 0759 (Given - Provider: Elise Mills LPN)0839 (On Hold by Provider - Provider: Olivia Arteaga NP - Reason: Other - See Comment - Comment: hyperk)1700 (Dose Auto Held - Provider: Olivia Arteaga NP) 0900 (Dose Auto Held - Provider: Olivia Arteaga NP)1700 (Dose Auto Held - Provider: Olivia Arteaga NP) 0900 (Dose Auto Held - Provider: Olivia Arteaga NP)1700 (Dose Auto Held - Provider: Olivia Arteaga NP)2009 (Unheld by Provider - Provider: Automatic Discharge Provider) methocarbamoL (ROBAXIN) tablet 750 mg 750 mg, oral, 3 times daily, First dose on Mon06/16/24 at 2100, Until Discontinued 0757 (Given - Provider: Elise Mills LPN)1344 (Given - Provider: Elise Mills LPN)2129 (Given - Provider: Ailyn Washington LPN) 09 (Given - Provider: Elsy Munoz LPN)1308 (Given - Provider: Elsy Munoz LPN)2018 (Given - Provider: Ailyn Washington LPN) 0812 (Given - Provider: Solange Sosa LPN)1312 (Given - Provider: Solange Sosa LPN) methylPREDNISolone sodium succinate (SOLU-Medrol) injection 40 mg (CANCELED) 40 mg, intravenous, Every 8 hours, First dose (after last modification) on 06/22/24 at 2100, Until Discontinued 0344 (Given - Provider: Marleny Sterling LPN)1344 (Given - Provider: Elise Mills LPN) nystatin (MYCOSTATIN) 100,000 unit/mL suspension 500,000 Units 500,000 Units, oral, 4 times daily, First dose on 06/22/24 at 1700, Until Discontinued, Swish and swallow. 0757 (Given - Provider: Elise Mills LPN)1345 (Given - Provider: Elise Mills LPN)1757 (Given - Provider: Ailyn Washington LPN)2129 (Given - Provider: Ailyn Washington LPN) 0926 (Given - Provider: Elsy Munoz LPN)1308 (Given - Provider: Elsy Munoz LPN)1601 (Given - Provider: Ailyn Washington LPN)2020 (Given - Provider: Ailyn Washington LPN) 0823 (Given - Provider: Solange Sosa LPN)1349 (Given - Provider: Solange Sosa LPN)1700 (Due) pantoprazole DR (PROTONIX) tablet 40 mg 40 mg, oral, Daily, First dose on Mon06/21/24 at 0900, Until Discontinued, Do not crush. 0800 (Given - Provider: Elise Mills LPN) 0926 (Given - Provider: Elsy Munoz LPN) 0812 (Given - Provider: Solange Sosa LPN) predniSONE (DELTASONE) tablet 50 mg 50 mg, oral, Daily, First dose on Mon06/25/24 at 0900, Until Discontinued 09 (Given - Provider: Elsy Munoz LPN) 0811 (Given - Provider: Solange Sosa LPN) pregabalin (LYRICA) capsule 200 mg 200 mg, oral, 2 times daily, First dose (after last modification) on 06/22/24 at 1700, Until Discontinued 0758 (Given - Provider: Elise Mills LPN)175 (Given - Provider: Ailyn Washington LPN) 0926 (Given - Provider: Elsy Munoz LPN)1600 (Given - Provider: Ailyn Washington LPN) 0810 (Given - Provider: Solange Sosa LPN)1700 (Due) senna (SENOKOT) tablet 17.2 mg 17.2 mg, oral, Nightly, First dose on Mon06/21/24 at 2100, Until Discontinued 2128 (Given - Provider: Ailyn Washington LPN) 2017 (Given - Provider: Ailyn Washington LPN) sodium chloride 0.9% flush 2.5-10 mL(Linked Group 1) 2.5-10 mL, intravenous, See admin instructions, Starting on Mon06/16/24 at 0357, Until Mon06/26/24 at 2009, Flush each lumen with a pulsatile motion with a minimum of 2.5 mL before and after use. Please note which lumen(s) have been flushed in comments section. sodium chloride 0.9% flush 2.5-10 mL(Linked Group 1) 2.5-10 mL, intravenous, Every 12 hours scheduled, First dose on Mon06/16/24 at 0900, Until Discontinued, Flush each lumen with a pulsatile motion with a minimum of 2.5 mL every 12 hours. Please note which lumen(s) have been flushed in comments section. 0808 (Given - Provider: Elise Mills LPN)2100 (Due) 0927 (Given - Provider: Elsy Munoz LPN)2019 (Given - Provider: Ailyn Washington LPN) 0823 (Given - Provider: Solange Sosa LPN) sodium phosphates (FLEET ADULT) enema 133 mL (COMPLETED) 133 mL, rectal, Once, On Mon06/25/24 at 1245, 1 dose 1308 (Given - Provider: Elsy Munoz LPN) sodium zirconium cyclosilicate (LOKELMA) powder 10 g (COMPLETED) 10 g, oral, Once, On Mon06/26/24 at 1430, 1 dose, Separate administration by two hours from clopidogreL, dabigatran, tacrolimus, and warfarin. 1546 (Given - Provider: Solange Sosa LPN) sodium zirconium cyclosilicate (LOKELMA) powder 15 g 15 g, oral, Daily, First dose on 06/24/24 at 0900, Until Discontinued, Separate administration by two hours from clopidogreL, dabigatran, tacrolimus, and warfarin. 1044 (Given - Provider: Elise Mills LPN) 0925 (Given - Provider: Elsy Munoz LPN) 0816 (Given - Provider: Solange Sosa LPN) traZODone (DESYREL) tablet 50 mg 50 mg, oral, Nightly, First dose (after last modification) on 06/22/24 at 2100, Until Discontinued 2130 (Given - Provider: Ailyn Washington LPN) 2017 (Given - Provider: Ailyn Washington LPN) PRN Medication Order 06/24/2024 06/25/2024 06/26/2024 acetaminophen (TYLENOL) tablet 650 mg 650 mg, oral, Every 4 hours PRN, Mild pain or 1-3 (on the numeric pain scale), Starting on 06/17/24 at 1403, Until Mon06/26/24 at 2009, To be given in conjunction with other pain medications if ordered as part of multi-modal therapy. 0338 (Given - Provider: Marleny Sterling LPN - Comment: pt requesting tyneol for pain score) albuterol 2.5 mg/3 mL (0.083%) nebulizer solution 2.5 mg 2.5 mg, inhalation, Every 4 hours PRN, wheezing, shortness of breath, Starting on 06/17/24 at 0920, Until Mon06/26/24 at 2009 0927 (Not Given - Provider: Sophia Fitzpatrick, FINISHING SUPERVISOR - Reason: Other - See Comment - Comment: PRN ORDER) aluminum-magnesium hydroxide-simethicone (MAALOX PLUS) 200-200-20 mg/5 mL suspension 30 mL 30 mL, oral, Every 4 hours PRN, indigestion, heartburn, Starting on Rosalba 06/20/24 at 1653, Until Mon06/26/24 at 2009 1345 (Given - Provider: Elise Mills LPN) benzonatate (TESSALON) capsule 100 mg 100 mg, oral, 3 times daily PRN, cough, Starting on 06/16/24 at 0355, Until Mon06/26/24 at 2009, Swallow capsule whole. Do not chew. bisacodyL (DULCOLAX) EC tablet 5 mg 5 mg, oral, Daily PRN, constipation, Starting on Rosalba 06/20/24 at 2128, Until Mon06/26/24 at 2009, Do not crush. 0344 (Given - Provider: Marleny Sterling LPN) calcium carbonate (TUMS) chewable tablet 1,000 mg 1,000 mg, oral, 2 times daily PRN, heartburn, indigestion, Starting on Mon06/19/24 at 0959, Until Mon06/26/24 at 2009 codeine-guaiFENesin (CHERATUSSIN AC) 20-200 mg/10 mL liquid 10 mg of codeine 10 mg of codeine (5 mL), oral, Every 4 hours PRN, cough, Starting on 06/17/24 at 0921, Until Mon06/26/24 at 2009, Assess pain, sedation, and respiratory rate prior to each opioid administration. diphenhydrAMINE (BENADRYL) tablet 25 mg 25 mg, oral, Every 6 hours PRN, itching, Starting on 06/17/24 at 2144, Until Mon06/26/24 at 2009 furosemide (LASIX) tablet 20 mg 20 mg, oral, Daily PRN, FLUID OVERRLOAD/SWELLING IN LEGS, Starting on 06/16/24 at 0356, Until Mon06/26/24 at 2009 ipratropium-albuteroL (DUO-NEB) 0.5-2.5 mg/3 mL nebulizer solution 3 mL 3 mL, inhalation, Every 4 hours PRN, wheezing, shortness of breath, Starting on 06/16/24 at 0913, Until Mon06/26/24 at 2009 1757 (Given - Provider: Ailyn Washington LPN) 0926 (Not Given - Provider: Sophia Fitzpatrick, FINISHING SUPERVISOR - Reason: Other - See Comment - Comment: PRN ORDER) LORazepam (ATIVAN) tablet 1 mg 1 mg, oral, Every 6 hours PRN, anxiety, agitation, Starting on 06/22/24 at 1457, Until Mon06/26/24 at 2009 0748 (Not Given - Provider: Elise Mills LPN - Reason: Patient/family refused)1044 (Given - Provider: Elise Mills LPN) 0 (Given - Provider: Ailyn Washington LPN) naloxone (NARCAN) injection 0.04 mg 0.04 mg, intravenous, Every 3 minutes as needed, opioid reversal, respiratory depression, Starting on 06/16/24 at 1724, Until Mon06/26/24 at 2009, Partial opioid reversal for respiratory rate less than 10 (POSS greater than 2 or RASS less than 0). Notify LIP if naloxone is administered to evaluate the patient to determine if additional naloxone doses are needed and to reevaluate the patient's opioid orders. naloxone (NARCAN) injection 0.4 mg 0.4 mg, intravenous, Every 2 hour PRN, opioid reversal, respiratory depression, Starting on 06/16/24 at 1724, Until Mon06/26/24 at 2009, Complete opioid reversal for respiratory rate less than 10 (POSS greater than 2 or RASS less than 0). Notify LIP if naloxone is administered to evaluate the patient to determine if additional naloxone doses are needed and to reevaluate the patient's opioid orders. ondansetron (ZOFRAN) tablet 4 mg 4 mg, oral, Every 8 hours PRN, nausea, vomiting, Starting on 06/16/24 at 0357, Until Mon06/26/24 at 2009, If multiple PRN medications ordered for nausea/vomiting, use first. If patient continues to have nausea/vomiting sooner than 8 hours after the previous anti-emetic dose, do not repeat the same anti-emetic(s). Instead, administer a different anti-emetic from selection. polyethylene glycol 3350 (MIRALAX) packet 17 g 17 g, oral, Daily PRN, constipation, Starting on Rosalba 06/20/24 at 2128, Until Mon06/26/24 at 2009, Dissolve each 17 g packet in 4-8 ounces of water or juice prior to administration. 0800 (Given - Provider: Elise Mills LPN) 0814 (Given - Provider: Solange Sosa LPN) traMADoL (ULTRAM) tablet 100 mg 100 mg, oral, Every 8 hours PRN, Moderate pain or 4-6 (on the numeric pain scale), Starting on 06/22/24 at 1459, Until Mon06/26/24 at 2009, Assess pain, sedation, and respiratory rate prior to each opioid administration. 0122 (Given - Provider: Marleny Sterling LPN)2130 (Given - Provider: Ailyn Washington LPN) 0453 (Given - Provider: Meseret Hampton RN)1600 (Given - Provider: Ailyn Washington LPN) 0837 (Given - Provider: Solnage Sosa LPN) traZODone (DESYREL) tablet 50 mg 50 mg, oral, Nightly PRN, insomnia, Starting on Mon06/23/24 at 2229, Until Mon06/26/24 at 2009 triamcinolone acetonide (KENALOG) 0.1% cream 1 application. 1 application., topical, Daily PRN, irritation, rash, Starting on Mon06/17/24 at 1353, Until Mon06/26/24 at 2009, Apply to affected area. Linked Groups Order Group 1: IV Peripheral Line Care (CANCELED) Until discontinued, Starting on Mon06/16/24 at 0358, Until Specified, Insert/Replace: 96 hours for non-flexion, sterile IVs, 48 hours for flexion IVs, and 24 hours for non-sterile field IVs, Blood Draw: With insertion only And sodium chloride 0.9% flush 2.5-10 mLJump to med 2.5-10 mL, intravenous, See admin instructions, Starting on Mon06/16/24 at 0357, Until Mon06/26/24 at 2009, Flush each lumen with a pulsatile motion with a minimum of 2.5 mL before and after use. Please note which lumen(s) have been flushed in comments section. And sodium chloride 0.9% flush 2.5-10 mLJump to med 2.5-10 mL, intravenous, Every 12 hours scheduled, First dose on Mon06/16/24 at 0900, Until Discontinued, Flush each lumen with a pulsatile motion with a minimum of 2.5 mL every 12 hours. Please note which lumen(s) have been flushed in comments section. documented in this encounter Additional Health Concerns Infection Onset Date Last Indicated Resolved Time R/O Respiratory Virus Infection 06/15/2024 06/15/2024 8:48 PM EST R/O Influenza 06/15/2024 06/15/2024 06/15/2024 8:4 8 PM EST COVID-19 - Suspected infection 06/15/2024 06/15/2024 06/15/2024 8:48 PM EST documented as of this encounter Care Teams Route Aide Relationship Specialty Start Date End Date Bijal Fox, SQUIRREL WORKER [address] [place] [id number] PCP - General Family Medicine 05/30/24 documented as of this encounter
--- OUTSIDE RECORDS SUMMARY | 2024-07-10 11:22 | XMS_ITS | Encounter Summary ---
Author Organization [facility] Address [address] [place] [address] Care Team Providers Care Dredge Master Name Role Phone Brandyn Pagan MD Primary Care Provider Unavaila Radha Fink NP Unavailable Unavailable Unknown Pcp, Non [facility] Primary Care Provider Unava ilable Encounter Details Date Type Department Care Team (Late st Contact Info) Description 01/04/2017 Orders Only [facility] [address] [place] [id number] Radha Spangler NP Social History Tobacco Use [...] as of this encounter Progress Notes * Sima Dyer NP - 01/05/2017 9:26 AM EDT Ov 01/19 with antonette documented in this encounter Plan of Treatment Not on file documented as of this encounter Goals Goal Patient Goal Type Associated Problems Recent Progress Patient-Stated? Author Blood Pressure < 140/90 Blood Pressure 120/73( 017 9:26 AM EDT) No Eineberg, Radha, CLINICAL STATISTICS MANAGER documented as of this encounter Procedures * Due to [place] [employer] law, this organization might not be sharing negative HIV tests. Procedure Name Priority Date/Time Associated Diagnosis Comments CBC INCLUDES DIFFERENTIAL AND PLATELET COUNT Routine 01/04/2017 1:11 PM EDT Nail discoloration HEMOGLOBIN A1C Routine 01/04/2017 1:11 PM EDT Nail discoloration HEPATIC FUNCTION PANEL (ALT,AST,ALK PH,BILI'S,TP,ALB) Routine 01/04/2017 1:11 PM EDT Transaminitis LIPID PANEL WITH REFLEX TO DIRECT LDL Routine 01/04/2017 1:11 PM EDT Nail discoloration BASIC METABOLIC PANEL WITH (GFR) Routine 01/04/2017 1:11 PM EDT Benign essential HTN CKD (chronic kidney disease), stage III documented in this encounter Results * Due to [place] [employer] law, this organization might not be sharing negative HIV tests. * (ABNORMAL) BASIC METABOLIC PANEL WITH (GFR) (01/04/2017 1:11 PM EDT) Glucose 97 65 - 99 mg/dL [facility] Comment:Fasting reference in [facility] Urea Nitrogen Blood (BUN) 27(H) 7 - 25 mg/dL [facility] Creatinine 1.18(H) 0.50 - 0.99 mg/dL [facility] Comment: For patients >49 years of age, the reference limit for Creatinine is approximately 13% higher for people identified as -Somali. GFR 48(L) > OR = 60 mL/min/1. 73m2 [facility] GFR () 56(L) > OR = 60 mL/min/1. 73m2 [facility] BUN/Creatinine Ratio 23(H) 6 - 22 (calc) [facility] Sodium 138 135 - 146 mmol/L [facility] Potassium 4.6 3.5 - 5.3 mmol/L [facility] Chloride 103 98 - 110 mmol/L [facility] Carbon dioxide 23 20 - 31 mmol/L [facility] Calcium 9.7 8.6 - 10.4 mg/dL [facility] 01/04/2017 1:11 PM EDT 01/04/2017 10:19 PM EDT Narrative [facility] - 01/05/2017 12:58 AM EDT Please note that this estimated GFR [...] with more precise needs for GFR calculation. Resulting Agency Comment [id number] Radha Spangler NP LABORATORY Final Result Performing Organization Address [facility] Co de Phone Number [facility] [address] [place] [address] * HEPATIC FUNCTION PANEL (ALT,AST,ALK PH,BILI'S,TP,ALB) (01/04/2017 1:11 PM EDT) Protein Total (Serum) 6.5 6.1 - 8.1 g/dL [facility] Albumin 4.1 3.6 - 5.1 g/dL [facility] Globulin 2.4 1.9 - 3.7 g/dL (calc) [facility] Albumin/Globulin 1.7 1.0 - 2.5 (calc) [facility] Bilirubin Total 0.3 0.2 - 1.2 mg/dL [facility] Bilirubin Direct 0.1 < OR = 0.2 mg/dL [facility] Bilirubin Indirect 0.2 0.2 - 1.2 mg/dL (calc) [facility] Alkaline phosphatase 112 33 - 130 U/L [facility] AST (SGOT) 20 10 - 35 U/L [facility] ALT (SGPT) 22 6 - 29 U/L [facility] 01/04/2017 1:11 PM EDT 01/04/2017 10:19 PM EDT Narrative Resulting Agency Comment [id number] Radha Spangler NP LABORATORY Final Result Performing Organization Address [facility] Co de Phone Number [facility] [address] [place] [address] * (ABNORMAL) HEMOGLOBIN A1C (01/04/2017 1:11 PM EDT) Hemoglobin A1C 6.3(H) <5.7 % of total Hgb [facility] Comment: For someone without known diabetes, a hemoglobin A1c value between 5.7% and 6.4% is consistent with prediabetes and should be confirmed with a follow-up test. For someone with known diabetes, a value <7% indicates that their diabetes is well controlled. A1c targets should be individualized based on duration of diabetes, age, comorbid conditions, and other considerations. This assay result is consistent with an increased risk of diabetes. Currently, no consensus exists regarding use of hemoglobin A1c for diagnosis of diabetes for children. Estimated Average Glucose 147 mg/dL (calc) [facility] 01/04/2017 1:11 PM EDT 01/04/2017 10:19 PM EDT Narrative Resulting Agency Comment [id number] Radha Spangler NP LABORATORY Final Result Performing Organization Address [facility] de Phone Number [facility] [address] [place] [address] * (ABNORMAL) LIPID PANEL WITH REFLEX TO DIRECT LDL (01/04/2017 1:11 PM EDT) Cholesterol 240(H) 125 - 200 mg/dL [facility] HDL Cholesterol 67 > OR = 46 mg/dL [facility] Triglyceride 228(H) <150 mg/dL [facility] LDL Cholesterol 127 <130 mg/dL (calc) [facility] Comment: Desirable range <100 mg/dL for patients with CHD or diabetes and <70 mg/dL for diabetic patients with known heart disease. CHOL/HDL Ratio 3.6 < OR = 5.0 (calc) [facility] Cholesterol Non-HDL 173(H) mg/dL (calc) [facility] Comment: Target for non-HDL cholesterol is 30 mg/dL higher than LDL cholesterol target. 01/04/2017 1:11 PM EDT 01/04/2017 10:19 PM EDT Narrative Resulting Agency Comment [id number] Radha Spangler NP LABORATORY Final Result Performing Organization Address [facility] de Phone Number [facility] [address] [place] [address] * (ABNORMAL) CBC INCLUDES DIFFERENTIAL AND PLATELET COUNT (01/04/2017 1:11 PM EDT) WBC 7.4 3.8 - 10.8 Thousand/u L [facility] RBC 4.39 3.80 - 5.10 Million/uL [facility] Hemoglobin 12.0 11.7 - 15.5 g/dL [facility] Hematocrit 36.7 35.0 - 45.0 % [facility] MCV 83.7 80.0 - 100.0 fL [facility] MCH 27.3 27.0 - 33.0 pg [facility] MCHC 32.6 32.0 - 36.0 g/dL [facility] RDW 15.2(H) 11.0 - 15.0 % [facility] PLT 262 140 - 400 Thousand/u L [facility] MPV 8.7 7.5 - 12.5 fL [facility] Neutrophils # 4914 1500 - 7800 cells/uL [facility] Lymphocytes # 1820 850 - 3900 cells/uL [facility] Monocytes # 488 200 - 950 cells/uL [facility] Eosinophils # 96 15 - 500 cells/uL [facility] Basophils # 81 0 - 200 cells/uL [facility] Neutrophils % 66.4 % [facility] Lymphocytes % 24.6 % [facility] Monocytes % 6.6 % [facility] Eosinophils % 1.3 % [facility] Basophils % 1.1 % [facility] 01/04/2017 1:11 PM EDT 01/04/2017 10:19 PM EDT Narrative Resulting Agency Comment [id number] Radha Spangler NP LAB SAME DAY RESULT Final Re sult [facility] [address] [place] [address] documented in this encounter Visit Diagnoses Diagnosis Nail discoloration Other specified disease of nail Transaminitis Nonspecific elevation of levels of transaminase or lactic acid dehydrogenase (LDH) Benign essential HTN Essential hypertension, benign CKD (chronic kidney disease), stage III (HCC) Chronic kidney disease, Stage III (moderate) documented in this encounter Care Teams Dredge Master Relationship Specialty Start Date End Date Brandyn Pagan MD PCP - General Internal Medicine 08/07/15 02/02/17 Radha Spangler NP PCP - Backup PCP Internal Medicine 01/11/16 02/02/17 Unknown Pcp, Non [facility]mg PCP - General 02/03/17 documented as of this encounter
--- OUTSIDE RECORDS SUMMARY | 2024-07-10 11:22 | XMS_ITS | Clinical Summary ---
Author Organization [facility] Address [address] [place] [address] Care Team Providers Care Tie Up Worker Name Role Phone Bijal Fox NP Primary Care Provider [phone] Allergies Active Allergy Reactions Criticality Noted Date Comments Lansoprazole Indigestion Medium Bskvjwd-Eqg-Afb Reductase Inhibitors Muscle Pain Medium Per pt Medications diltiazem XR (DILACOR XR) 120 mg 24 hr capsule Take 120 mg by mouth once a day. Active DULoxetine DR (CYMBALTA) 60 mg capsule Take 60 mg by mouth once a day. Active busPIRone (BUSPAR) 7.5 mg tablet Take 7.5 mg by mouth 2 (two) times a day. Active flecainide (TAMBOCOR) 100 mg tablet Take 100 mg by mouth 2 times a day. Active lisdexamfetamine (VYVANSE) 20 mg capsule Take 20 mg by mouth every morning. Active methocarbamoL (ROBAXIN) 750 mg tablet Take 750 mg by mouth 3 times a day. Active pregabalin (LYRICA) 150 mg capsule Take 150 mg by mouth 2 times a day. Active traZODone (DESYREL) 50 mg tablet Take 50 mg by mouth nightly. -- 1-2 TABS EVERY NIGHT, STARTS WITH 50 MG AND TAKES A SECOND TABLET IF NOT SLEEPING Active levothyroxine (SYNTHROID, LEVOTHROID) 112 mcg tablet Take 1 tablet (112 mcg total) by mouth daily. 30 tablet 06/04/19 25 Active budesonide (PULMICORT) 0.5 mg/2 mL suspension Inhale 2 mL (0.5 mg total) via nebulizer every 12 hours. Rinse mouth with water after use to reduce aftertaste and incidence of candidiasis. Do not swallow. 120 mL 06/26/19 25 Active benzonatate (TESSALON) 100 mg capsule Take 1 capsule (100 mg total) by mouth 3 times a day as needed for cough. 30 capsule 06/26/19 25 Active arformoteroL (Brovana) 15 mcg/2 mL nebulizer solution Inhale 2 mL (15 mcg total) via nebulizer every 12 hours. 120 mL 06/26/19 25 Active sodium zirconium cyclosilicate (LOKELMA) 5 gram powder in packet powder Take 3 packets (15 g total) by mouth once a day. 30 packet 06/27/19 25 Active senna (SENOKOT) 8.6 mg tablet Take 2 tablets (17.2 mg total) by mouth once a day. 60 tablet 06/26/[address] (PROTONIX) 40 mg tablet Take 1 tablet (40 mg total) by mouth once a day. 30 tablet 06/27/19 25 Active nystatin (MYCOSTATIN) 100,000 unit/mL suspension Take 5 mL (500,000 Units total) by mouth 4 times a day. 300 mL 06/26/19 25 Active ipratropium-albu teroL (DUO-NEB) 0.5-2.5 mg/3 mL nebulizer solution Inhale 3 mL via nebulizer every 4 hours as needed for wheezing or shortness of breath. 360 mL 06/26/19 25 Active guaiFENesin ER (MUCINEX) 600 mg tablet Take 1 tablet (600 mg total) by mouth every 12 hours. 60 tablet 06/26/19 25 Active apixaban (Eliquis) 5 mg tabletIndication s:Atrial fibrillation, unspecified type (HCC) Take 1 tablet (5 mg total) by mouth every 12 hours. 60 tablet 06/28/19 25 Active traMADoL (ULTRAM) 50 mg tablet Take 50 mg by mouth every 8 hours as needed for pain. 06/28/19 25 Active furosemide (LASIX) 20 mg tablet Take 1 tablet (20 mg total) by mouth every other day. With an additional tablet as needed for weight gain or swelling 30 tablet 11 07/03/19 25 Active furosemide (LASIX) 20 mg tablet Take 20 mg by mouth daily as needed (FLUID OVERRLOAD/SWE LLING IN LEGS). 02/17/20 24 2024 Discontinued losartan (COZAAR) 50 mg tablet Take 50 mg by mouth 2 times a day. 2024 Discontinued(S top Taking at Discharge) triamcinolone acetonide (KENALOG) 0.1% cream Apply 1 application. topically to the affected area as needed for irritation or rash. 2024 Discontinued(S top Taking at Discharge) benzonatate (TESSALON) 100 mg capsule Take 1 capsule (100 mg total) by mouth 3 times a day as needed for cough. 30 capsule 06/26/19 25 2024 Discontinued guaiFENesin ER (MUCINEX) 600 mg tablet Take 1 tablet (600 mg total) by mouth every 12 hours. 60 tablet 06/26/192024 Discontinued ipratropium-albu teroL (DUO-NEB) 0.5-2.5 mg/3 mL nebulizer solution Inhale 3 mL via nebulizer every 4 hours as needed for wheezing or shortness of breath. 360 mL 06/26/19 25 2024 Discontinued arformoteroL (Brovana) 15 mcg/2 mL nebulizer solution Inhale 2 mL (15 mcg total) via nebulizer every 12 hours. 120 mL 06/26/19 25 2024 Discontinued nystatin (MYCOSTATIN) 100,000 unit/mL suspension Take 5 mL (500,000 Units total) by mouth 4 times a day. 300 mL 06/26/192024 Discontinued pantoprazole DR (PROTONIX) 40 mg tablet Take 1 tablet (40 mg total) by mouth once a day. 30 tablet 06/27/19 25 2024 Discontinued predniSONE (DELTASONE) 10 mg tablet Take 4 tablets (40 mg total) by mouth once a day for 2 days, THEN 3 tablets (30 mg total) once a day for 2 days, THEN 2 tablets (20 mg total) once a day for 2 days, THEN 1 tablet (10 mg total) once a day for 2 days. 20 tablet 06/27/19 25 2024 Discontinued senna (SENOKOT) 8.6 mg tablet Take 2 tablets (17.2 mg total) by mouth once a day. 60 tablet 06/26/19 25 2024 Discontinued sodium zirconium cyclosilicate (LOKELMA) 5 gram powder in packet powder Take 3 packets (15 g total) by mouth once a day. 30 packet 06/27/19 25 2024 Discontinued traMADoL 100 mg tablet Take 1 tablet (100 mg total) by mouth every 8 hours as needed for pain for up to 3 days. 10 tablet 06/26/19 25 2024 Discontinued arformoteroL (Brovana) 15 mcg/2 mL nebulizer solution Inhale 2 mL (15 mcg total) via nebulizer every 12 hours. 120 mL 06/26/19 25 2024 Discontinued nystatin (MYCOSTATIN) 100,000 unit/mL suspension Take 5 mL (500,000 Units total) by mouth 4 times a day. 300 mL 06/26/19 [address] (PROTONIX) 40 mg tablet Take 1 tablet (40 mg total) by mouth once a day. 30 tablet 06/27/19 25 2024 Discontinued predniSONE (DELTASONE) 10 mg tablet Take 4 tablets (40 mg total) by mouth once a day for 2 days, THEN 3 tablets (30 mg total) once a day for 2 days, THEN 2 tablets (20 mg total) once a day for 2 days, THEN 1 tablet (10 mg total) once a day for 2 days. 20 tablet 06/27/19 25 2024 Discontinued ipratropium-albu teroL (DUO-NEB) 0.5-2.5 mg/3 mL nebulizer solution Inhale 3 mL via nebulizer every 4 hours as needed for wheezing or shortness of breath. 360 mL 06/26/19 25 2024 Discontinued guaiFENesin ER (MUCINEX) 600 mg tablet Take 1 tablet (600 mg total) by mouth every 12 hours. 60 tablet 06/26/19 25 2024 Discontinued traMADoL 100 mg tablet Take 1 tablet (100 mg total) by mouth every 8 hours as needed (pain) for up to 3 days. 10 tablet 06/26/19 25 2024 predniSONE (DELTASONE) 10 mg tablet Take 4 tablets (40 mg total) by mouth once a day for 2 days, THEN 3 tablets (30 mg total) once a day for 2 days, THEN 2 tablets (20 mg total) once a day for 2 days, THEN 1 tablet (10 mg total) once a day for 2 days. 20 tablet 06/27/19 25 2024 Active Problems Problem Noted Date Diagnosed Date CKD stage 3a, GFR 45-59 ml/min 07/01/2024 Chronic heart failure with preserved ejection fr action 07/01/2024 Hyperkalemia 06/24/2024 Assessment & Plan (06/25/2024 12:40 PM EST): K 6.2--> 5.1 -Losartan on hold -Lokelma dose this a.m. Constipation 06/22/2024 Overview (06/22/2024): Constipation: Bowel regimen ordered. Assessment & Plan (06/25/2024 12:39 PM EST): Constipation: Bowel regimen ordered. Enema today Assessment & Plan (06/23/2024 4:18 PM EST): Constipation: Bowel regimen ordered. Elevated serum creatinine 06/20/2024 Assessment & Plan (06/24/2024 1:49 PM EST): Slight elevation in creatinine, likely due to IV Lasix. Improved after IV Lasix stopped. Assessment & Plan (06/23/2024 4:18 PM EST): Slight elevation in creatinine, likely due to IV Lasix. Improved after IV Lasix stopped. Assessment & Plan (06/22/2024 5:50 PM EST): Slight elevation in creatinine, likely due to IV Lasix. Improved after IV Lasix stopped. Assessment & Plan (06/20/2024 1:07 PM EST): Slight bump in creatinine today likely due to IV Lasix.. Lasix will be discontinued tomorrow. Repeat BMP Diastolic CHF, acute (CMS/HCC) 06/19/2024 Assessment & Plan (06/24/2024 1:48 PM EST): CHF diastolic component: She developed increased requirement [...] - Troponin 14. proBNP improved to 2459 Assessment & Plan (06/23/2024 4:18 PM EST): CHF diastolic component: She developed increased requirement [...] diet. Troponin 14. proBNP improved to 2459 Assessment & Plan (06/22/2024 5:48 PM EST): CHF diastolic component: She developed increased requirement [...] diet. Troponin 14. proBNP improved to 2459 Assessment & Plan (06/20/2024 1:06 PM EST): Patient developed increased requirement for oxygen yesterday. [...] tomorrow. Troponin 14. proBNP improved to 2459 Assessment & Plan (06/19/2024 12:42 PM EST): Patient developed increased requirement for oxygen yesterday. [...] Daily weight Sodium restriction diet Cardiology consult Severe asthma with exacerbation 06/18/2024 Assessment & Plan (06/24/2024 1:56 PM EST): PMH significant for asthma. Therapy as above. Assessment & Plan (06/23/2024 4:19 PM EST): PMH significant for asthma. Therapy as above. Assessment & Plan (06/22/2024 5:57 PM EST): PMH significant for asthma. Therapy as above. Assessment & Plan (06/20/2024 12:57 PM EST): Hx of Asthma as well Now with asthma/COPD exacerbation Assessment & Plan (06/19/2024 12:41 PM EST): Hx of Asthma as well Now with asthma/COPD exacerbation Acute respiratory failure with hypoxia Assessment & Plan (06/25/2024 12:39 PM EST): Acute Resp Failure: Evidenced on admission by SpO2 88% requiring 3-4L SURFACE PLATE INSPECTOR. Tachypnea with RR increased to 22 RPM. She is not home-O2 dependent. -Wean supplemental O2 as tolerated, presently om room air -Taper steroids -Continue supportive therapy with nebulized bronchodilators, ICS and multiple antitussives. -Avoid increasing Tramadol in setting of COPD/asthma. Assessment & Plan (06/23/2024 4:18 PM EST): Acute Resp Failure: Evidenced on admission by SpO2 88% requiring 3-4L SURFACE PLATE INSPECTOR. Tachypnea with RR increased to 22 RPM. She is not home-O2 dependent. Presently weaned to 2L SURFACE PLATE INSPECTOR, but still coarse with rhonchus cough. Reduced IV steroids as no wheezing on exam and she appears tearful and depressed. Continue supportive therapy with nebulized bronchodilators, ICS and multiple antitussives. Avoid increasing Tramadol in setting of COPD/asthma. Assessment & Plan (06/22/2024 5:42 PM EST): Acute Resp Failure: Evidenced on admission by SpO2 88% requiring 3-4L SURFACE PLATE INSPECTOR. Tachypnea with RR increased to 22 RPM. She is not home-O2 dependent. Presently weaned to 2L SURFACE PLATE INSPECTOR, but still coarse with rhonchus cough. Reduced IV steroids as no wheezing on exam and she appears tearful and depressed. Continue supportive therapy with nebulized bronchodilators, ICS and multiple antitussives. Avoid increasing Tramadol in setting of COPD/asthma. Assessment & Plan (06/20/2024 12:49 PM EST): Patient does not use home O2. On admission patient was saturating 88% and required 3 to 4 L of O2. She was also tachypneic up to 22 respiration per minute. Today patient was able to be tapered to 2L of O2 Assessment & Plan (06/19/2024 12:40 PM EST): Patient does not use home O2. On admission patient was saturating 88% and required 3 to 4 L of O2. She was also tachypneic up to 22 respiration per minute. Today patient is using 3 L of O2 and saturating 94%. Assessment & Plan (06/18/2024 1:43 PM EST): Patient does not use home O2. On admission patient was saturating 88% and required 3 to 4 L of O2. She was also tachypneic up to 22 respiration per minute. Today patient is using 3 L of O2 and saturating 92%. Chronic obstructive pulmonar y disease with acute exacerbation 06/17/2024 Assessment & Plan (06/24/2024 1:44 PM EST): No formal diagnosis of COPD, but she was a former smoker. - Plan for home nebulizer at discharge. -Wean supplemental O2 as tolerated -Check trending SpO2 -Taper steroids Assessment & Plan (06/23/2024 4:18 PM EST): No formal diagnosis of COPD, but she was a former smoker. Plan for home nebulizer at discharge. Assessment & Plan (06/22/2024 5:43 PM EST): No formal diagnosis of COPD, but she was a former smoker. Plan for home nebulizer at discharge. Assessment & Plan (06/20/2024 1:08 PM EST): Patient was a former smoker. No formal diagnosis of COPD. Lungs with bilateral wheezes and rhonchi. Continue with scheduled DuoNeb, and Pulmicort. Continue with antitussives. I have ordered a respiratory consult for home nebulizer machine at discharge. Assessment & Plan (06/19/2024 12:40 PM EST): Patient was a former smoker. No formal diagnosis of COPD. Lungs with bilateral wheezes and rhonchi. Continue with scheduled DuoNeb, and Pulmicort. Patient does not use home O2. Currently saturating 94% on 3L of O2. Continue with antitussives. Assessment & Plan (06/18/2024 1:30 PM EST): Patient was a former smoker. No formal diagnosis of COPD. Lungs with bilateral wheezes and rhonchi. Continue with scheduled DuoNeb, and Pulmicort. Patient does not use home O2. Currently saturating 97% on 2 L of O2. Will add antitussives. Give IV magnesium x 1. Assessment & Plan (06/17/2024 1:56 PM EST): Patient was a former smoker. No formal diagnosis of COPD. Lungs with bilateral wheezes and rhonchi. Will add scheduled DuoNeb, and Pulmicort. Patient does not use home O2. Currently saturating 97% on 2 L of O2. Will add antitussives. Give IV magnesium x 1. Pneumonia due to organism 06/16/2024 Assessment & Plan (06/25/2024 12:41 PM EST): CT chest shows no evidence of PE. [...] resp status stable on room air today Assessment & Plan (06/23/2024 4:19 PM EST): CT chest shows no evidence of PE. [...] C+S grew rayna albicans. Started Nystatin S&S. Assessment & Plan (06/22/2024 5:56 PM EST): CT chest shows no evidence of PE. [...] C+S grew rayna albicans. Started Nystatin S&S. Assessment & Plan (06/20/2024 1:06 PM EST): CT chest shows no evidence of PE. [...] and mycoplasma pneumonia negative Sputum culture pending Assessment & Plan (06/19/2024 12:32 PM EST): CT chest shows no evidence of PE. [...] not show any PE. Will check BNP. Assessment & Plan (06/18/2024 1:37 PM EST): CT chest shows no evidence of PE. [...] not show any PE. Will check BNP. Assessment & Plan (06/17/2024 1:55 PM EST): CT chest shows no evidence of PE. Left bibasilar consolidation along with left lower lobe nodules. This could relate to pneumonia and/or aspiration. Will continue with IV Rocephin and Zithromax. Get blood cultures today. Assessment & Plan (06/16/2024 4:03 AM EST): CT chest shows no evidence of PE Empirically covered with ceftriaxone and azithromycin Follow-up cultures Supplemental oxygen as needed Trending pulse oximetry when ready for discharge DuoNebs as needed Weakness 06/03/2024 Hypoxia 06/03/2024 Assessment & Plan (06/03/2024 9:19 PM EST): Patient has been in ER observation pending STR placement for generalized weakness and multiple recent falls. Patient noted to have frequent episodes of hypoxia requiring 2LNC O2 supplementation. Viral respiratory panel negative. CXR shows atelectasis. ProBNP WNL. Ddimer slightly elevated, however on Eliquis. US negative for DVT. Will admit for observation for hypoxia. Update Echo O2 supplementation to keep SpO2 >92%. Titrate as able Encourage IS Generalized weakness 06/03/2024 Assessment & Plan (06/03/2024 9:15 PM EST): Hx of spinal stenosis, chronic back pain, s/p multiple back surgeries likely contributing to multiple recent falls. Appreciate PT alessandro who recommends STR RNCM working on STR placement and insurance auth. Fall precautions Ambulate with assistance A-fib ([facility]) 06/03/2024 Assessment & Plan (06/25/2024 12:39 PM EST): A-Fib: Secondary hypercoagulable state due to arrhythmia. - Continue anticoagulation with Eliquis for stroke prevention. - HR controlled on Flecainide. - d/c tele Assessment & Plan (06/23/2024 4:17 PM EST): A-Fib: HR controlled on Flecainide. Secondary hypercoagulable state due to arrhythmia. Continue anticoagulation with Eliquis for stroke prevention. Assessment & Plan (06/22/2024 5:37 PM EST): A-Fib: HR controlled on Flecainide. Secondary hypercoagulable state due to arrhythmia. Continue anticoagulation with Eliquis for stroke prevention. Assessment & Plan (06/20/2024 12:48 PM EST): Continue with carb, flecainide and Eliquis. Assessment & Plan (06/19/2024 12:40 PM EST): Continue with carb, flecainide and Eliquis. Assessment & Plan (06/18/2024 1:29 PM EST): Continue with carb, flecainide and Eliquis. Assessment & Plan (06/17/2024 1:56 PM EST): Continue with carb, flecainide and Eliquis. Assessment & Plan (06/03/2024 9:13 PM EST): P. Afib, A. Flutter. S/P ablation 10/2021. Continue Flecainide and Cardizem Continue Eliquis Anxiety 06/03/2024 Assessment & Plan (06/03/2024 9:20 PM EST): Continue home Cymbalta and trazodone Primary hypertension 06/03/2024 Assessment & Plan (06/03/2024 9:23 PM EST): BP WNL Continue Losartan, lasix and Cardizem Hypothyroidism 06/03/2024 Assessment & Plan (06/24/2024 1:49 PM EST): Continue with Levothyroxine 112 mcg daily. TSH WNL Assessment & Plan (06/23/2024 4:18 PM EST): Continue with Levothyroxine 112 mcg daily. TSH WNL Assessment & Plan (06/22/2024 5:50 PM EST): Continue with Levothyroxine 112 mcg daily. TSH WNL Assessment & Plan (06/20/2024 12:57 PM EST): Continue with levothyroxine 112 mcg daily. TSH WNL Assessment & Plan (06/19/2024 12:31 PM EST): Continue with levothyroxine 112 mcg daily. TSH WNL Assessment & Plan (06/18/2024 1:34 PM EST): Continue with levothyroxine 112 mcg daily. TSH WNL Assessment & Plan (06/17/2024 2:03 PM EST): Continue with levothyroxine 112 mcg daily. Assessment & Plan (06/03/2024 9:24 PM EST): Continue home Levothyroxine Update TSH in am Spondylisthesis 01/09/2015 Posterior tibial tendinitis 10/23/2014 Pain in joint of left shoulder 10/21/2014 Cervical spondylosis with myelopathy 10/17/2014 Ankle pain 09/01/2014 Coccydynia 03/12/2014 Sciatica 03/12/2014 Lumbar radiculopathy 03/10/2014 Assessment & Plan (06/03/2024 9:21 PM EST): Continue home meds including Lyrica, Oxycodone and Robaxin Sacroiliitis 02/14/2014 Obstructive sleep apnea 12/19/2013 Achilles tendinitis 12/19/2013 Anserine bursitis 12/19/2013 Pes planus, unspecified laterality 12/19/2013 Backache 12/19/2013 Trochanteric bursitis 12/19/2013 Plantar fasciitis, left 12/16/2013 History of pain when walking 12/16/2013 Foot pain 12/11/2013 Numbness 07/15/2013 Bilateral carpal tunnel syndrome 07/15/2013 Pain in wrist, left 07/11/2013 Neck pain 06/07/2013 Cervical spine degeneration 06/07/2013 Osteoarthritis of hip 02/22/2012 Lumbar canal stenosis 02/22/2012 Assessment & Plan (06/25/2024 12:41 PM EST): Lumbar canal stenosis: Likely exacerbating her symptoms. [...] her pain. -PT eval --> recommend STR Assessment & Plan (06/23/2024 4:19 PM EST): Lumbar canal stenosis: Likely exacerbating her symptoms. [...] help her relax and ease her pain. Assessment & Plan (06/22/2024 5:54 PM EST): Lumbar canal stenosis: Likely exacerbating her symptoms. [...] help her relax and ease her pain. Assessment & Plan (06/20/2024 12:57 PM EST): Patient has an appointment at the end of this week with a spine surgeon. Assessment & Plan (06/19/2024 12:31 PM EST): Patient has an appointment at the end of this week with a spine surgeon. Assessment & Plan (06/18/2024 1:34 PM EST): Patient has an appointment at the end of this week with a spine surgeon. Assessment & Plan (06/17/2024 2:00 PM EST): Patient has an appointment at the end of this week with a spine surgeon. Midback Pain 01/21/2011 Joint pain, hip 11/09/2010 Trigger thumb 10/15/2010 Joint pain, knee 02/11/2010 Seborrheic dermatitis 05/29/2009 Resolved Problems Problem Noted Date Diagnosed Date Resolved Date Acute pulmonary edema 06/19/20242024 Assessment & Plan (06/19/2024 12:27 PM EST): HLD (hyperlipidemia) 06/03/2024 025 Assessment & Plan (06/18/2024 1:34 PM EST): Assessment & Plan (06/17/2024 2:01 PM EST): Assessment & Plan (06/03/2024 9:23 PM EST): Continue home Zetia Encounters Date Type Department Care Team Description 07/04/2024 Orders Only [facility] [address] [place] [address] Magy Sawyer NP Hyperlipidemia, unspecified hyperlipidemia type (Primary Dx); 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/03/2024 2:30 PM EST Office Visit [address] Cardiology [address] [place] [phone] Mabel Onofre NP Diastolic heart failure, unspecified HF chronicity (HCC) (Primary Dx); Paroxysmal atrial fibrillation (HCC); Pulmonary hypertension (HCC); BILLIE (obstructive sleep apnea); Benign hypertensive heart disease without congestive heart failure 07/03/2024 Telephone [facility] Case Management Department [address] [place] [phone] Mariajose Calvillo RN 07/02/2024 10:05 AM EST Lab [facility] Site Department [address] [place] [phone] 07/01/2024 3:15 PM EST Office Visit [facility] Nephrology [address] [place] [address], [address] [place] [address] John Hendricks MD Hyperkalemia (Primary Dx); CKD stage 3a, GFR 45-59 ml/min (HCC); Chronic heart failure with preserved ejection fraction (HCC); Primary hypertension 07/01/2024 9:05 AM EST Lab [facility] Site Department [address] [place] [id number] Diastolic heart failure, unspecified HF chronicity (HCC) 07/01/2024 Orders Only [address] Cardiology [address] [place] [phone] Mabel Onofre NP 06/24/[address] Cardiology [address] [place] [phone] Elise Boykin MA [facility] 06/23/2024 Lab Requisition [facility] [address] [place] [address] Mj Mendenhall MD Pneumonia due to other specified infectious organisms 06/15/2024 7:35 PM EST - 06/26/2024 6:09 PM EST Hospital Encounter [facility] [address] [address] Kevin Newsome MD Devineni, Praveen, MD Discharge Disposition: Home with Services (06) 06/02/2024 12:57 PM EST - 06/04/2024 3:30 PM EST Emergency [facility] [address] [address] Govind Glez MD Cebula, Maria, MD Colucci, Joseph M, MD Silva, Joshua T, MD Nesanelis, David, MD Generalized weakness (Primary Dx) Discharge Disposition: Shelter Facility (03) from Last 3 Months Immunizations Immunization Administration Dates Next Due INFLUENZA, SPLIT VIRUS, TRIVALENT, PF 06/15/2017 Influenza, Injectable, Quadrivalent, Preservativ e Free 03/11/2016 Influenza, Trivalent, Adjuvanted, PF 02/18/2018 Pneumococcal Conjugate Vaccine, 13 Valent 2017 Pneumococcal Polysaccharide Vaccine, 23 Valent 0 06/27/2018 Tetanus Toxoid, Reduced Diph theria Toxoid, and Acellular Pertussis Vaccine, Adsorbed 01/11/2016 Zoster Vaccine, Live 01/11/2016 Family History Medical History Relation Name Comments Other Brother 1 Family History of alcoholism Other Brother 2 Family History of depression Other Father Family History of depression Other Mother Family History of eczema Other Sister 1 Family History of depression Other Sister 2 Family history of Coagulation disorder, transient Relation Name Status Comments Brother 1 Brother 2 Father Mother Sister 1 Sister 2 Social History Tobacco Use Types Packs/Day Years Used Date Smoking Tobacco: Former Smokeless Tobacco: Never Tobacco Cessation:Counseling Given: Not Answered Comments:: Alcohol Use Standard Drinks/Week Comments Not Currently 0 (1 standard drink = 0.6 oz pur e alcohol) [facility] Utilities Answer Date Recorded In [...] Orientation Straight 03/06/2021 4: 31 PM EDT Last Filed Vital Signs Vital Sign Reading Time Taken Comments Blood Pressure 138/70 07/03/2024 2:29 PM EST Pulse 87 07/03/2024 2:29 PM EST Temperature 36.8 ??C (98.3 ??F) 06/26/2024 3:00 PM ES T Respiratory Rate 18 06/26/2024 3:00 PM EST Oxygen Saturation 95% 07/03/2024 2:29 PM EST Inhaled Oxygen Concentration - - Weight 117.8 kg (259 lb 9.6 oz) 07/03/2024 2:29 PM EST Height 167.6 cm (5' 5.98 ) 07/01/2024 3:13 PM ES T Body Mass Index 41.92 07/01/2024 3:13 PM EST Plan of Treatment Upcoming Encounters Date Type Department Care Team ([facility] Contact Info) Description 08/01/2024 2:00 PM EDT Follow-Up [facility] Nephrology [address] [place] [address] [address] [place] [address] John Hendricks MD [address] [place] [phone] 01/08/2025 10:00 AM EDT Follow-Up [address] Cardiology [address] [place] [id number] Mabel Onofre NP [address] [place] [address] Health Maintenance Due Date Last Done Comments RSV Vaccine (60+ years old and patients) (1 - Risk 60-74 years 1-dose series) 2011 Zoster Vaccines (2 of 3) 03/07/2016 01/11/2016 Colonoscopy 09/02/2019 09/01/2014 COVID-19 Vaccine (1 - 2023- season) 2024 Influenza Vaccine (#1) 2024 8, 06/15/2017, 03/11/2016 Alcohol/Substance Use Screening 05/22/2024 Depression Evaluation 05/22/2024 Health Care Proxy Review 05/22/2024 Basic Metabolic Panel 12/30/2024 07/02/2024 , 07/01/2024, 06/26/2024, Additional history exists Mammogram 03/27/2025 03/27/2023, 08/0 09/2019, 12/25/2019, Additional history exists Social Drivers of Health Annual Screening 06/03/2025 06/03/2024 CT Lung Cancer Screening (Baseline) 06/15/2025 06/15/2024, 03/29/2023, 01/13/2021, Additional history exists 25 Hydroxy / Vitamin D 07/02/2025 , 06/23/2024, 03/23/2012, Additional history exists Hemoglobin 07/02/2025 07/02/2024, 09/2024, 06/25/2024, Additional history exists PTH 07/02/2025 07/02/2024 Phosphorus 07/02/2025 07/02/2024 Urine Microalbumin 07/02/2025 07/02/2024 DTaP,Tdap,and Td Vaccines (2 - Td or Tdap) 01/10/2026 01/11/2016 Pneumococcal Vaccine: 50+ Years Completed 06/27/2018, 06/15/2017 Hepatitis C Screening Completed 08/17/2018 Osteoporosis Screening Completed 01/22/2020 Hepatitis B Vaccines Aged Out No long er eligible based on patient's age to complete this topic Procedures * Due to [place] state law, [...] with preserved ejection fraction (HCC) Primary hypertension N-TERMINAL PROBRAIN NATRIURETIC PEPTIDE Routine 07/01/2024 8:39 AM EST Diastolic heart failure, unspecified HF chronicity (HCC) BASIC METABOLIC PANEL Routine 07/01/2024 8:39 AM EST Diastolic heart failure, unspecified HF chronicity (HCC) XR ABDOMEN 1 VW STAT 06/26/2024 12:39 PM EST CBC Routine 06/26/2024 6:22 AM EST BASIC METABOLIC PANEL Routine 06/26/2024 6:22 AM EST CBC Routine 06/25/2024 7:04 AM EST BASIC METABOLIC PANEL Routine 06/25/2024 7:04 AM EST BASIC METABOLIC PANEL Routine 06/24/2024 12:58 PM EST ECG 12-LEAD Routine 06/24/2024 9:50 AM EST BASIC METABOLIC PANEL Routine 06/24/2024 7:27 AM EST CBC Routine 06/24/2024 7:27 AM EST POTASSIUM Routine 06/23/2024 10:05 AM EST BASIC METABOLIC PANEL Routine 06/23/2024 7:13 AM EST CBC Routine 06/23/2024 7:13 AM EST VITAMIN D, 25-HYDROXY, TOTAL, IMMUNOASSAY Routine 06/23/2024 6:00 AM EST Pneumonia due to other specified infectious organisms XR CHEST 2 VW Routine 06/22/2024 4:27 PM EST LAVENDER TOP Routine 06/22/2024 6:53 AM EST EXTRA TUBES Routine 06/22/2024 6:53 AM EST BASIC METABOLIC PANEL Routine 06/22/2024 6:38 AM EST ECG 12-LEAD Routine 06/21/2024 7:26 AM EST BASIC METABOLIC PANEL Routine 06/21/2024 6:10 AM EST TROPONIN T HIGH SENSITIVITY Routine 06/20/2024 10:19 AM EST N-TERMINAL PROBRAIN NATRIURETIC PEPTIDE Routine 06/20/2024 10:19 AM EST BASIC METABOLIC PANEL Timed 06/20/2024 8:53 AM EST RESPIRATORY CULTURE W/GRAM STAIN Routine 06/20/2024 7:37 AM EST BASIC METABOLIC PANEL Routine 06/19/2024 6:15 AM EST CBC Routine 06/19/2024 6:15 AM EST LEGIONELLA ANTIGEN, URINE STAT 06/18/2024 6:44 PM EST STREPTOCOCCUS PNEUMONIAE ANTIGEN URINE STAT 06/18/2024 6:44 PM EST XR CHEST PORTABLE 1 VIEW Routine 06/18/2024 2:12 PM EST N-TERMINAL PROBRAIN NATRIURETIC PEPTIDE STAT 06/18/2024 2:12 PM EST TSH Add-On 06/17/2024 7:03 AM EST CBC AUTO DIFFERENTIAL Routine 06/17/2024 7:03 AM EST COMPREHENSIVE METABOLIC PANEL Routine 06/17/2024 7:03 AM EST LAVENDER TOP Routine 06/16/2024 7:54 AM EST LIGHT GREEN TOP Routine 06/16/2024 7:54 AM EST EXTRA TUBES Routine 06/16/2024 7:54 AM EST MYCOPLASMA PNEUMONIAE ANTIBODIES, IGG/IGM Routine 06/16/2024 7:[address] CHEST PULMONARY EMBOLISM W CONTRAST STAT 06/15/2024 11:49 PM EST BLOOD GAS, VENOUS STAT 06/15/2024 10: 17 PM EST LACTIC ACID, PLASMA STAT 06/15/2024 1 0:17 PM EST TROPONIN T HIGH SENSITIVITY Timed 06/15/2024 10:17 PM EST BLOOD CULTURE STAT 06/15/2024 10:17 PM EST BLOOD CULTURE STAT 06/15/2024 10:17 PM EST XR CHEST 2 VW STAT 06/15/2024 8:19 PM EST ECG 12-LEAD STAT 06/15/2024 8:08 PM EST TROPONIN T HIGH SENSITIVITY Timed 06/15/2024 8:00 PM EST N-TERMINAL PROBRAIN NATRIURETIC PEPTIDE STAT 06/15/2024 8:00 PM EST BASIC METABOLIC PANEL STAT 06/15/2024 8:00 PM EST CBC AUTO DIFFERENTIAL STAT 06/15/2024 8:00 PM EST MVL QS - COVID-19, FLU A/B & RSV RNA PCR, SYMPTOMATIC STAT 06/15/2024 7:58 PM EST HEART & VASCULAR - SCANNED 06/15/2024 HEART & VASCULAR - SCANNED 06/15/2024 HEART & VASCULAR - SCANNED 06/15/2024 TRANSTHORACIC ECHO (TTE) COMPLETE Routine 06/04/2024 9:40 AM EST TSH Routine 06/04/2024 6:06 AM EST N-TERMINAL PROBRAIN NATRIURETIC PEPTIDE STAT 06/03/2024 4:10 PM EST D-DIMER, QUANTITATIVE STAT 06/03/2024 4:10 PM EST US LOWER EXTREMITY VENOUS LEFT STAT 06/03/2024 3:41 PM EST RAPID COVID-19, FLU A, FLU B & RSV RNA PCR, SYMPTOMATIC (ED ONLY) STAT 06/03/2024 3:02 PM EST XR CHEST 2 VW STAT 06/03/2024 8:58 AM EST ECG 12-LEAD STAT 06/03/2024 8:[address] LUMBAR SPINE WO CONTRAST STAT 06/02/2024 6:[address] CERVICAL SPINE WO CONTRAST STAT 06/02/2024 6:[address] HEAD WO CONTRAST STAT 06/02/2024 6 :15 PM EST COMPREHENSIVE METABOLIC PANEL STAT 06/02/2024 4:50 PM EST CBC AUTO DIFFERENTIAL STAT 06/02/2024 4:50 PM EST COLONOSCOPY 09/01/2014 2:57 PM EDT from Last 3 Months or Most Recently Relevant to Health Maintenance Results * Due to [place] state law, this organization might not be sharing negative HIV tests. * (ABNORMAL) Microscopic Urinalysis Only (07/02/2024 9:17 AM EST) RBC, Urine 5-10(A) None Seen, 0-2 /HPF 07/02/2024 10:07 AM EST [facility] WBC, Urine 0-2 None Seen, 0-2 /HPF 07/02/2024 10:07 AM EST [facility] Squamous Epithelial Cells, Urine 0-2 /HPF 07/02/2024 10:07 AM EST [facility] Bacteria, Urine Occasional (A) None Seen /HPF 07/02/2024 10:07 AM EST [facility] Urine Urine specimen collection, clean catch / Unknown Non-Blood Collection / Unknown 07/02/2024 9:17 AM EST 07/02/2024 9:36 AM EST John Hendricks MD LAB URINE ORDERABLES Final Resul t [facility] [address] [place] [address] [address] [place] [address], * (ABNORMAL) Urinalysis W/Reflex to Microscopic (No Culture) (07/02/2024 9:17 AM EST) Color, Urine Yellow Yellow 07/02/2024 9:44 AM EST [facility] Clarity, Urine Clear Clear 07/02/2024 9:44 AM EST [facility] Specific Moo[place], Urine 1.015 1.005 - 1.030 07/02/2024 9:44 AM EST [facility] pH, Urine 5.5 5.0 - 8.0 07/02/2024 9:44 AM EST [facility] Protein, Urine Negative Negative mg/dL 07/02/2024 9:44 AM EST [facility] Glucose, Urine Negative Negative mg/dL 07/02/2024 9:44 AM EST [facility] Ketones, Urine Negative Negative mg/dL 07/02/2024 9:44 AM EST [facility] Bilirubin, Urine Negative Negative 07/02/2024 9:44 AM EST [facility] Blood, Urine Small(A) Negative 07/02/2024 9:44 AM EST [facility] Nitrite, Urine Negative Negative 07/02/2024 9:44 AM EST [facility] Urobilinogen, Urine 0.2 0.2 - 1.0 E.U./dL 07/02/2024 9:44 AM EST [facility] Leukocyte Esterase, Urine Small(A) Negative 07/02/2024 9:44 AM EST [facility] Urine Urine specimen collection, clean catch / Unknown Non-Blood Collection / Unknown 07/02/2024 9:17 AM EST 07/02/2024 9:36 AM EST John Hendricks MD LAB URINE ORDERABLES Final Resul t [facility] [address] [place] [address] [address] [place] [address], [place] [phone] * (ABNORMAL) SPEP (Protein Electrophoresis w/Reflex to [...] 9:17 AM EST 07/02/2024 9:29 AM EST Narrative HILARY DAVID - 07/04/2024 8:59 AM EST [facility] Received Date:[id number] John Hendricks MD LAB BLOOD ORDERABLES Final Resul t HILARY DAVID [address] [place] [address] [address] Floor, [place] [address], [place] [phone] * Hemoglobin and Hematocrit (07/02/2024 9:17 AM EST) Hemoglobin 12.0 11.7 - 15.5 g/dL 07/02/2024 9:38 AM EST [facility] Hematocrit 37.1 35.7 - 45.8 % 07/02/2024 9:38 AM EST [facility] Blood Structure of peripheral vein / Unknown Venipuncture / Unknown 07/02/2024 9:17 AM EST 07/02/2024 9:29 AM EST John Hendricks MD LAB BLOOD ORDERABLES Final Resul t [facility] [address] [place] [address] [address] [place] [address], [place] [phone] * Microalbumin, Random Urine with Creatinine (07/02/2024 9:17 AM EST) Creatinine, Urine 55 mg/dL 07/02/2024 2:41 PM EST [facility] Microalbumin, Urine 4 <=20 mg/L 07/02/2024 2:41 PM EST [facility] Microalb/Creat Ratio, Random Urine 7.3 1.3 - 30.0 mg/g 07/02/2024 2:41 PM EST [facility] Urine Voided urine specimen / Unknown Non-Blood Collection / Unknown 07/02/2024 9:17 AM EST 07/02/2024 9:36 AM EST John Hendricks MD LAB URINE ORDERABLES Final Resul t Performing Organization Address [facility] Co de Phone Number [facility] [address] [address], [place] [phone] * Protein, Random Urine with Creatinine (07/02/2024 9:17 AM EST) Protein, Urine 6 mg/dL 07/02/2024 2:41 PM EST [facility] Creatinine, Urine 55 mg/dL 07/02/2024 2:41 PM EST [facility] Protein/Creati nine Ratio 109 <200 mg/gmCr 07/02/2024 2:41 PM EST [facility] Urine Voided urine specimen / Unknown Non-Blood Collection / Unknown 07/02/2024 9:17 AM EST 07/02/2024 9:36 AM EST us John Hendricks MD LAB URINE ORDERABLES Final Resul t Performing Organization Address [facility] Co de Phone Number [facility] [address] [address], [place] [phone] * (ABNORMAL) Vitamin D, 25-Hydroxy, Total, Immunoassay (07/02/2024 9:17 AM EST) Only the most recent of2 resultswithin the time period is included. Vitamin D 25-OH 22.50(L) 30.00 - 80.00 ng/mL 07/02/2024 11:24 AM EST [facility] Blood Structure of peripheral vein / Unknown Venipuncture / Unknown 07/02/2024 9:17 AM EST 07/02/2024 9:29 AM EST us John Hendricks MD LAB BLOOD ORDERABLES Final Resul t Performing Organization Address [facility] Co de Phone Number [facility] [address] [address], [place] [phone] * (ABNORMAL) PTH, Intact (without Calcium) (07/02/2024 9:17 AM EST) Parathyroid Hormone, Intact 226.0(H) 14.5 - 87.1 pg/mL 07/02/2024 11:19 AM EST [facility] Comment: This test was performed using the chemiluminescent immunoassay (CLIA) intended for the quantitative determination of intact human parathyroid hormone method on the [employer] LIAISON. Values obtained from different assay methods cannot be used interchangeably. Assay results should be utilized in conjunction with other clinical and laboratory data Blood Structure of peripheral vein / Unknown Venipuncture / Unknown 07/02/2024 9:17 AM EST 07/02/2024 9:29 AM EST us John Hendricks MD LAB BLOOD ORDERABLES Final Resul t Performing Organization Address [facility]/ZIP Co de Phone Number [facility] [address] [place] [address], [place] [phone] * Magnesium (07/02/2024 9:17 AM EST) Pathologist [facility] [place] MG 1.9 1.5 - 2.5 mg/dL 07/02/2024 10:01 AM EST [facility] Blood Structure of peripheral vein / Unknown Venipuncture / Unknown 07/02/2024 9:17 AM EST 07/02/2024 9:29 AM EST us John Hendricks MD LAB BLOOD ORDERABLES Final Resul t [facility] [address] [address], [place] [phone] * (ABNORMAL) Renal Function Panel (07/02/2024 9:17 AM EST) Pathologist [facility] NA 138 136 - 145 mmol/L 07/02/2024 10:02 AM EST [facility] K 4.4 3.5 - 5.1 mmol/L 07/02/2024 10:02 AM EST [facility] Comment:ALL DELTAS REVIEWED Cl 101 98 - 109 mmol/L 07/02/2024 10:02 AM EST [facility] CO2 26 22 - 32 mmol/L 07/02/2024 10:02 AM [facility] Anion Gap 15 >=0 07/02/2024 10:02 AM EST [facility] Glucose 115(H) 60 - 99 mg/dL 07/02/2024 10:02 AM [facility] BUN 37(H) 8 - 23 mg/dL 07/02/2024 10:02 AM [facility] Creatinine 1.47(H) 0.50 - 1.12 mg/dL 07/02/2024 10:02 AM [facility] Calcium 8.8 8.4 - 10.4 mg/dL 07/02/2024 10:02 AM [facility] Phosphorus 3.6 2.5 - 4.5 mg/dL 07/02/2024 10:02 AM [facility] Albumin 3.8 3.5 - 5.0 g/dL 07/02/2024 10:02 AM [facility] eGFR 38(L) >=60 mL/min/1. 73m2 07/02/2024 10:02 AM [facility] Comment:The estimated glomer ular filtration rate [...] ORDERABLES Final Resul t Performing Organization Address City/[facility]/ZIP Co de Phone Number [facility] [address] [address], * N-terminal ProBrain Natriuretic Peptide (07/01/2024 8:39 AM EST) Only the most recent of5 resultswithin the time period is included. Pro-B-Type Natriuretic Peptide 288 <=900 pg/mL 07/01/2024 9:39 AM EST [facility] Comment: RULE IN CHF >/= [...] EST 07/01/2024 9:05 AM EST Mabel Onofre NP LAB BLOOD ORDERABLES Final Result Performing Organization Address City/[facility]/ZIP Co de Phone Number [facility] [address] [address], * (ABNORMAL) Basic metabolic panel (07/01/2024 8:39 AM EST) Only the most recent of11 resultswithin the time period is included. NA 140 136 - 145 mmol/L 07/01/2024 9:36 AM EST [facility] K 5.3(H) 3.5 - 5.1 mmol/L 07/01/2024 9:36 AM EST [facility] Cl 102 98 - 109 mmol/L 07/01/2024 9:36 AM EST [facility] CO2 29 22 - 32 mmol/L 07/01/2024 9:36 AM EST [facility] BUN 34(H) 8 - 23 mg/dL 07/01/2024 9:36 AM EST [facility] Creatinine 1.27(H) 0.50 - 1.12 mg/dL 07/01/2024 9:36 AM EST [facility] Glucose 113(H) 60 - 99 mg/dL 07/01/2024 9:36 AM EST [facility] Calcium 8.9 8.4 - 10.4 mg/dL 07/01/2024 9:36 AM EST [facility] Anion Gap 14 >=0 07/01/2024 9:36 AM EST [facility] eGFR 45(L) >=60 mL/min/1. 73m2 07/01/2024 9:36 AM EST [facility] Comment:The estimated glomer ular filtration [...] EST 07/01/2024 9:04 AM EST Mabel Onofre SURFACE PLATE INSPECTOR LAB BLOOD ORDERABLES Final Result [facility] [address] [facility] [address] [place] [address], * X-Ray Abdomen 1 View (06/26/2024 12:39 [...] obtain the completed interpretation. ? Workstation ID: [id number] Narrative 06/26/2024 2:05 PM EST EXAMINATION: ??XR ABDOMEN 1 VW INDICATION: RLQ abdominal pain, constipation COMPARISONS: None Resulting Agency Comment [id number] Procedure Note Calvin Katz MD - 06/26/2024 [...] possible to obtain thecompleted interpretation. Workstation ID: [id number] us Tia Oh SURFACE PLATE INSPECTOR IMG XR PROCEDURES Final Result * (ABNORMAL) CBC (06/26/2024 6:22 AM EST) Only the most recent of5 resultswithin the time period is included. WBC 15.0(H) 4.8 - 10.8 10*3/uL 06/26/2024 6:42 AM EST [facility] RBC 4.51 4.20 - 5.40 10*6/uL 06/26/2024 6:42 AM EST [facility] Hemoglobin 13.1 11.7 - 15.5 g/dL 06/26/2024 6:42 AM EST [facility] Hematocrit 40.5 35.7 - 45.8 % 06/26/2024 6:42 AM EST [facility] MCV 89.8 81.0 - 99.0 fL 06/26/2024 6:42 AM EST [facility] MCH 29.0 26.0 - 34.0 pg 06/26/2024 6:42 AM EST [facility] MCHC 32.3 31.0 - 36.0 g/dL 06/26/2024 6:42 AM EST [facility] RDW 13.2 12.0 - 15.0 % 06/26/2024 6:42 AM EST [facility] Platelets 220 140 - 440 10*3/uL 06/26/2024 6:42 AM EST [facility] MPV 9.4 9.4 - 12.3 fL 06/26/2024 6:42 AM EST [facility] RDW Standard Deviation 43.5 36.4 - 46.3 fL 06/26/2024 6:42 AM EST [facility] Blood Structure of peripheral vein / Unknown Venipuncture / Unknown 06/26/2024 6:22 AM EST 06/26/2024 6:39 AM EST Olivia Arteaga SURFACE PLATE INSPECTOR LAB BLOOD ORDERABLES Final Result [facility] [address] [place] [address] [address] [place] [address], [place] [phone] * ECG 12 lead (06/24/2024 9:50 AM EST) Only the most recent of4 resultswithin the time period is included. Ventricular Rate EKG 73 BPM MUSE EKG Atrial Rate 73 BPM MUSE EKG TN Interval 228 ms MUSE EKG QRS Interval 128 ms MUSE EKG QT Interval 384 ms MUSE EKG QTC Interval 423 ms MUSE EKG P [place] 65 degrees MUSE EKG R [place] 41 degrees MUSE EKG T Wave [place] 61 degrees MUSE EKG 06/24/2024 9:50 AM EST 06/24/2024 5:36 PM EST Impressions MUSE EKG - 06/24/2024 5:36 PM EST Sinus rhythm with 1st degree AV block with occasional premature ventricular complexes Nonspecific intraventricular block When compared with ECG of 21-JUN-2024 07:26, No significant change was found Confirmed by Stephanie Hampton ([id number]) on 06/24/2024 5:36:28 PM us Olivia Arteaga SURFACE PLATE INSPECTOR ECG ORDERABLES Final Resul t MUSE EKG * (ABNORMAL) Potassium (06/23/2024 10:05 AM EST) K 5.6(H) 3.5 - 5.1 mmol/L 06/23/2024 10:58 AM EST [facility] Comment:REVIEWED Blood Structure of peripheral vein / Unknown Venipuncture / Unknown 06/23/2024 10:05 AM EST 06/23/2024 10:36 AM EST Narrative [facility] - 06/23/2024 10:58 AM EST Please check heparinized potassium, TY. Sydney David SURFACE PLATE INSPECTOR LAB BLOOD ORDERABLES Final Result Performing Organization Address City/[facility] Co de Phone Number [facility] [address] [place] [address] [address] [place] [address], [place] [phone] * X-Ray Chest 2 Views (06/22/2024 4:27 PM EST) Only the most recent of3 resultswithin the time period is included. Anatomical Region Laterality Modality Body Radiographic Minda [...] obtain the completed interpretation. ? Workstation ID: [id number] Narrative 06/24/2024 9:35 AM EST COMPARISON: ??06/18/2024 FINDINGS AND Resulting Agency Comment [id number] Procedure Note Calvin Katz MD - 06/24/2024 COMPARISON: 06/18/2024 FINDINGS AND IMPRESSION: Interval clearing of prior LLL infiltrate/atelectasis. Lungs and pleuralspaces now clear. Heart size remains normal. If this radiology report contains a blank impression section, it is anincomplete radiology report. Please contact the interpreting radiologistor applicable radiology division as soon as possible to obtain thecompleted interpretation. Workstation ID: [id number] us Sydney David SURFACE PLATE INSPECTOR IMG XR PROCEDURES Final Res ult * Lavender Top (06/22/2024 6:53 AM EST) Only the most recent of2 resultswithin the time period is included. Extra Tube Hold for add-ons. 06/22/2024 11:05 AM EST [facility] Comment:Auto resulted. Blood Structure of peripheral vein / Unknown 06/22/2024 6:53 AM EST 06/22/2024 6:53 AM EST us Mj Mendenhall MD LAB BLOOD ORDERABLES Final R esult [facility] [address] [facility] [address] [place] [address], [place] [phone] * Troponin T, High Sensitivity (06/20/2024 10:19 AM EST) Only the most recent of3 resultswithin the time period is included. Troponin T High Sensitivity 14 6 - 14 ng/L 06/20/2024 11:08 AM EST [facility] Comment: Vh-[id number]-L level of 52 ng/L or higher at [...] be evaluated in line with the 4th [place] Definition of AMI. Troponin baseline and serial [...] ORDERABLES Final R esult Performing Organization Address City/[facility]/ZIP Co de Phone Number [facility] [address] [address], * (ABNORMAL) Respiratory Culture (06/20/2024 7:37 AM EST) Respiratory Culture Moderate Rayna albicans(A) [place] [facility] 06/22/2024 11:29 AM EST [facility] Gram Stain Result <25 per LPF White Blood Cells Seen 06/22/2024 11:29 AM EST [facility] Gram Stain Result <10 per LPF Epithelial Cells 06/22/2024 11:29 AM EST [facility] Gram Stain Result Rare Gram Positive Cocci in pairs 06/22/2024 11:29 AM EST [facility] Sputum Sputum / Unknown Non-Blood Collection / Unknown 06/20/2024 7:37 AM EST 06/20/2024 7:54 AM EST Narrative [facility] - 06/22/2024 11:29 AM EST Many normal respiratory beena present. Rosanna Oh SURFACE PLATE INSPECTOR LAB MICROBIOLOGY - GENERAL ORDER RHINA Final Result Performing Organization Address City/[facility]/ZIP Co de Phone Number [facility] [address] [address], [place] [phone] * Streptococcus Pneumoniae Antigen Urine (06/18/2024 6:44 PM EST) Streptococcus pneumoniae Antigen, Urine Negative Negative [facility] 06/19/2024 8:53 AM EST [facility] Comment: INTERPRETATION: Presumptive negative for pneumococcal pneumonia, suggesting no current or recent pneumococcal infection. Infection due to Streptococcus pneumoniae cannot be ruled out since the antigen present in the specimen may be below the detection limit of the test. Urine Urine specimen collection, clean catch / Unknown Non-Blood Collection / Unknown 06/18/2024 6:44 PM EST 06/18/2024 7:15 PM EST Mj Mendenhall MD LAB URINE ORDERABLES Final R esult Performing Organization Address City/[facility]/ZIP Co de Phone Number [facility] [address] [facility] [address] [place] [address], * Legionella Antigen, Urine (06/18/2024 6:44 PM EST) Legionella pneumophila Urine Ag Negative Negative [facility] 06/19/2024 8:53 AM EST [facility] Comment: INTERPRETATION: Presumptive negative for [...] 6:44 PM EST 06/18/2024 7:15 PM EST Narrative [facility] - 06/19/2024 8:53 AM EST This [...] MD LAB URINE ORDERABLES Final R esult [facility] [address] [place] [address], [place] [phone] * XR Chest Portable 1 View (06/18/2024 [...] obtain the completed interpretation. ? Workstation ID: [id number] Narrative 06/20/2024 10:17 AM EST EXAMINATION: XR CHEST PORTABLE 1 VIEW COMPARISON: CT chest pulmonary angiogram 06/15/2024 and other priors. FINDINGS: Lines/Tubes/Devices: None. Lungs: Redemonstrated left basilar consolidation. Pleura: No pleural effusions or pneumothorax. Heart/Mediastinum: Cardiomediastinal silhouette is similar to prior. Bones/Soft tissues: No acute osseous abnormality. Resulting Agency Comment [id number] Procedure Note Apolonia Nolen MD - 06/20/2024 [...] possible to obtain thecompleted interpretation. Workstation ID: [id number] us Tia Oh SURFACE PLATE INSPECTOR IMG XR PROCEDURES Final Result * (ABNORMAL) CBC Auto Differential (06/17/2024 7:03 AM EST) Only the most recent of3 resultswithin the time period is included. WBC 11.6(H) 4.8 - 10.8 10*3/uL 06/17/2024 7:30 AM EST [facility] RBC 3.94(L) 4.20 - 5.40 10*6/uL 06/17/2024 7:30 AM EST [facility] Hemoglobin 11.7 11.7 - 15.5 g/dL 06/17/2024 7:30 AM EST [facility] Hematocrit 35.4(L) 35.7 - 45.8 % 06/17/2024 7:30 AM [facility] MCV 89.8 81.0 - 99.0 fL 06/17/2024 7:30 AM [facility] MCH 29.7 26.0 - 34.0 pg 06/17/2024 7:30 AM [facility] MCHC 33.1 31.0 - 36.0 g/dL 06/17/2024 7:30 AM [facility] RDW 12.9 12.0 - 15.0 % 06/17/2024 7:30 AM [facility] RDW Standard Deviation 42.6 36.4 - 46.3 fL 06/17/2024 7:30 AM [facility] Platelets 257 140 - 440 10*3/uL 06/17/2024 7:30 AM [facility] Comment:REV IEWED MPV 10.0 9.4 - 12.3 fL 06/17/2024 7:30 AM EST [facility] Neutrophil % 81.6(H) 50.0 - 75.0 % 06/17/2024 7:30 AM EST [facility] Immature Grans % 0.8 0.0 - 0.9 % 06/17/2024 7:30 AM [facility] Lymphocyte % 11.8(L) 20.0 - 44.0 % 06/17/2024 7:30 AM EST [facility] Monocyte % 5.6 0.0 - 14.0 % 06/17/2024 7:30 AM EST [facility] Eosinophil % 0.0 0.0 - 5.0 % 06/17/2024 7:30 AM EST [facility] Basophil % 0.2 0.0 - 2.0 % 06/17/2024 7:30 AM EST [facility] [facility] Neutrophil # 9.48(H) 1.80 - 7.70 10*3/uL 06/17/2024 7:30 AM EST [facility] Immature Grans # 0.09(H) 0.00 - 0.03 10*3/uL 06/17/2024 7:30 AM EST [facility] Lymphocyte # 1.40 1.00 - 4.75 10*3/uL 06/17/2024 7:30 AM EST [facility] Monocyte # 0.70(H) 0.00 - 0.60 10*3/uL 06/17/2024 7:30 AM EST [facility] Eosinophil # <0.03 0.00 - 0.80 10*3/uL 06/17/2024 7:30 AM EST [facility] Basophil # <0.03 0.00 - 0.20 10*3/uL 06/17/2024 7:30 AM EST [facility] nRBC % 0.0 0 - 0 /100 WBCs 06/17/2024 7:30 AM EST [facility] nRBC # <0.01 0.00 - 0.13 10*3/uL 06/17/2024 7:30 AM EST [facility] Blood Structure of peripheral vein / Unknown Venipuncture / Unknown 06/17/2024 7:03 AM EST 06/17/2024 7:22 AM EST us Mj Mendenhall MD LAB BLOOD ORDERABLES Final R esult [facility] [address] [facility] [facility] [address] [place] [address], * TSH (06/17/2024 7:03 AM EST) Only the most recent of2 resultswithin the time period is included. TSH 0.874 0.270 - 4.200 uIU/mL 06/17/2024 2:31 PM EST [facility] Comment: Females: 1st trimester ? 0.150-4.000 ??IU/mL 2nd trimester ?? 0.310-4.170 ?IU/mL 3rd trimester ?0.380-4.150 ?IU/mL Blood Structure of peripheral vein / Unknown Venipuncture / Unknown 06/17/2024 7:03 AM EST 06/17/2024 7:23 AM EST us Tia Oh SURFACE PLATE INSPECTOR LAB BLOOD ORDERABLES Final Resul t [facility] [address] [place] [address] [address] [place] [address], * (ABNORMAL) Comprehensive Metabolic Panel (06/17/2024 7:03 AM EST) Only the most recent of2 resultswithin the time period is included. NA 139 136 - 145 mmol/L 06/17/2024 8:07 AM EST [facility] K 5.1 3.5 - 5.1 mmol/L 06/17/2024 8:07 AM EST [facility] Cl 106 98 - 109 mmol/L 06/17/2024 8:07 AM EST [facility] CO2 23 22 - 32 mmol/L 06/17/2024 8:07 AM EST [facility] Anion Gap 15 >=0 06/17/2024 8:07 AM EST [facility] Glucose 111(H) 60 - 99 mg/dL 06/17/2024 8:07 AM EST [facility] Creatinine 0.99 0.50 - 1.12 mg/dL 06/17/2024 8:07 AM EST [facility] Calcium 9.4 8.4 - 10.4 mg/dL 06/17/2024 8:07 AM EST [facility] Total Protein 6.8 6.6 - 8.7 g/dL 06/17/2024 8:07 AM EST [facility] Albumin 4.0 3.5 - 5.0 g/dL 06/17/2024 8:07 AM [facility] Bilirubin, Total 0.1(L) 0.2 - 1.2 mg/dL 06/17/2024 8:07 AM EST [facility] Alkaline Phosphatase 109 40 - 129 U/L 06/17/2024 8:07 AM [facility] AST 23 0 - 33 U/L 06/17/2024 8:07 AM EST [facility] ALT 26 <=33 U/L 06/17/2024 8:07 AM [facility] BUN 27(H) 8 - 23 mg/dL 06/17/2024 8:07 AM EST [facility] eGFR 61 >=60 mL/min/1. 73m2 06/17/2024 8:07 AM [facility] Comment:The estimated glomer ular filtration rate [...] - 4.2 g/dL 06/17/2024 8:07 AM EST [facility] A/G Ratio 1.4(L) 1.5 - 3.0 06/17/2024 8:07 AM EST [facility] Blood Structure of peripheral vein / Unknown Venipuncture / Unknown 06/17/2024 7:03 AM EST 06/17/2024 7:23 AM EST us Mj Mendenhall MD LAB BLOOD ORDERABLES Final R esult Performing Organization Address [facility] Co de Phone Number [facility] [address] [address], * Light Green Top (06/16/2024 7:54 AM EST) Pathologist [facility] Extra Tube Hold for add-ons. 06/16/2024 12:05 PM EST [facility] Comment:Auto resulted. Blood Structure of peripheral vein / Unknown 06/16/2024 7:54 AM EST 06/16/2024 7:54 AM EST Mj Mendenhall MD LAB BLOOD ORDERABLES Final R esult Performing Organization Address [facility] Co de Phone Number [facility] [address] [address], * Mycoplasma pneumoniae Antibodies, IgG/IgM (06/16/2024 7:42 AM EST) Pathologist [facility] M. pneumoniae Ab, IgG <=0.90 <=0.90 06/19/2024 10:04 PM EST [employer] JUAN HARVEY) Comment: ? Reference Range: ? <=0.90 [...] 72 <770 U/mL 06/19/2024 10:04 PM EST [facility] [employer]) Comment: Reference Range: ?<770 U/ml ?Negative 770-950 [...] AM EST 06/16/2024 7:53 AM EST Narrative [facility] - 06/19/2024 10:04 PM EST [facility] Received Date: us Mj Mendenhall MD LAB BLOOD ORDERABLES Final R esult HILARY DAVID [address] [place] [address] 3rd Floor, [place] [address], [facility] [employer]) [address] [place] [address], [place] * CT Chest PE (06/15/2024 11:49 [...] obtain the completed interpretation. ? Workstation ID: [id number] Up-to-date CT equipment and radiation dose reduction [...] degenerative changes of the spine. Procedure Note Dick Fields - 06/16/2024 COMPARISON: CT chest from 01/07/2011. [...] possible to obtain thecompleted interpretation. Workstation ID: [id number] Up-to-date CT equipment and radiation dose reduction techniques wereemployed. CTDIvol: .8 - 21.4 mGy. DLP: 802 mGy-cm. us Kevin Newsome MD IMG CT PROCEDURES Final Result * Blood Culture (06/15/2024 10:17 PM EST) Only the most recent of2 resultswithin the time period is included. Pathologist [facility] Blood Culture No growth after 5 days 06/20/2024 11:05 PM EST [facility] Blood Structure of peripheral vein / Unknown Venipuncture / Unknown 06/15/2024 10:17 PM EST 06/15/2024 10:39 PM EST us Kevin Newsome MD LAB MICROBIOLOGY - GENERAL ORDER RHINA Final Result Performing Organization Address [facility] Phone Number [address] [address], [place] [phone] * Lactic Acid, Plasma (06/15/2024 10:17 PM EST) Pathologist [facility] Lactic Acid 0.7 0.5 - 2.2 mmol/L 06/15/2024 11:02 PM EST [facility] Blood Structure of peripheral vein / Unknown Venipuncture / Unknown 06/15/2024 10:17 PM EST 06/15/2024 10:31 PM EST us Kevin Newsome MD LAB BLOOD ORDERABLES Final Resul t Performing Organization Address [facility] Co de Phone Number [address] [address], [place] [phone] * (ABNORMAL) Blood gas, venous (06/15/2024 10:17 PM EST) pH, Venous 7.24(LL) 7.35 - 7.45 06/16/2024 2:54 AM EST [facility] RT pCO2, Venous 57.0 mm[Hg] 06/16/2024 2:54 AM EST [facility] RT pO2, Keegan 138.0 mm[Hg] 06/16/2024 2:54 AM EST [facility] RT HCO3, Venous 22 mmol/L 06/16/2024 2:54 AM EST [facility] RT O2 Sat, Venous 97.8 % 06/16/2024 2:54 AM EST [facility] RT Base Excess, Keegan -3.6 mmol/L 06/16/2024 2:54 AM EST [facility] RT Blood Structure of peripheral vein / Unknown Venipuncture / Unknown 06/15/2024 10:17 PM EST 06/16/2024 2:52 AM EST us Kevin Newsome MD LAB BLOOD ORDERABLES Final Resul t [facility] [address] [place] [address], * COVID-19, Flu A/B & RSV RNA PCR, Symptomatic (06/15/2024 7:58 PM EST) PCR, SARS CoV-2 RNA Not Detected Not Detected [facility] 06/15/2024 8:48 PM EST [facility] Flu A RNA PCR Not Detected Not Detected [facility] [employer] 06/15/2024 8:48 PM EST [facility] Flu B RNA PCR Not Detected Not Detected [employer] 06/15/2024 8:48 PM EST [facility] RSV RNA PCR Not Detected Not Detected [facility] [employer] 06/15/2024 8:48 PM EST [facility] Comment: Limitations: This RSV test is [...] PM EST 06/15/2024 8:09 PM EST Narrative [facility] - 06/15/2024 8:48 PM EST Methodology: The V I O GeneXpert CoV-2/Flu/RSV plus assay is For Use Under an Emergency Use Authorization (EUA) Only with [employer]. The CoV-2/Flu/RSV plus assay is a [...] for treatment or other patient management decisions. Calvin Fontenot MD LAB BODY FLUIDS AND STOOLS O RDERABLES Final Result [facility] [address] [facility] [facility] [address] [place] [address], [place] [phone] * HEART & VASCULAR - SCANNED (06/15/2024) Only the most recent of3 resultswithin the time period is included. Anatomical Region Laterality Modality Other us Onbase Scan Froylan SCANNED PROCEDURES Final Resu lt * TRANSTHORACIC ECHO (TTE) COMPLETE (06/04/2024 9:40 AM EST) BSA 2.39 m2 LVIDD 4.8 cm LVIDS 2.8 cm IVS 1.1 cm Relative Wall Thickness 0.45 PW 1.1 cm LV Mass Index 80 g/m2 MV Peak E Sudhakar 0.79 m/s MV avg E/e' 10.66 MV Peak A Sudhakar 0.91 m/s TR pk sudhakar 2.9 m/s E/A ratio 0.90 Lateral e' 0.10 m/s E wave deceleration time 256.0 msec Septal e' 0.05 m/s MV E/E' Tissue Velocity Lateral 7.88 LA Volume Index 39 mL/m2 MV E/e' septal 16.45 LA volume 92 mL LVOT peak sudhakar 0.74 m/s LA size 4.7 cm RV griffiths mid diam 2.5 cm AV mean gradient 5 mmHg AV peak gradient 9 mmHg Ao peak sudhakar 1.5 m/s Ao VTI 34.30 cm LVOT peak VTI 20.80 cm AV Doppler sudhakar index pk sudhakar 0.49 AV Velocity Ratio 0.61 TR PEAK GRAD 34.0 mmHg PV pk sudhakar 0.9 cm/s PV peak gradient 3.0 mmHg Ascending aorta 3.2 cm Ao-asc Z score -0.44 IVC proximal 1.6 cm LV ED Post Wall 1.10 LV ES Dimension 2.80 LV ED Dimension 4.80 Echo EF Estimated 70 % EF 2D 70 % [facility] RV TISSUE DOPPLER S' 11.0 cm/s RIGHT ATRIAL PRESSURE 3 mmHg Estimated r vent sys pressure by tricuspid regurg jet 37 mmHg Sinus 2.9 cm Aortic Root Z-score -1.99 Dummy BSA 2.27 TV est pulmonary artery pressure 37 mmHg Anatomical Region Laterality Modality Heart Echocardiography Narrative 06/04/2024 10:54 AM EST ?Left??Ventricle: Normal left ventricular systolic function. Left ventricular ejection fraction is in the normal range with visually estimated LVEF 65%. ?Left??Atrium: Left atrium is moderately dilated. ?Tricuspid??Valve: Mild tricuspid regurgitation. ?Pulmonary??Arteries: Pulmonary artery systolic pressure is upper normal. Estimated pulmonary artery pressure is 37 mmHg. Left Ventricle The left ventricle size is normal. Normal left ventricular wall thickness. Normal left ventricular wall motion. Ventricular septal motion is normal. Normal left ventricular systolic function. Left ventricular ejection fraction is in the normal range with visually estimated LVEF 65%. Grade I left ventricular diastolic dysfunction. Right Ventricle Right ventricle size is normal. Normal right ventricular systolic function. Left Atrium Left atrium is moderately dilated. Right Atrium Right atrium is normal in size. IVC/SVC IVC diameter is less than or equal to 21 mm and decreases greater than 50% during inspiration; therefore the estimated right atrial pressure is normal (~3 mmHg). Mitral Valve Mildly thickened mitral leaflets. Mild mitral annular calcification. Trace to mild mitral regurgitation. No mitral stenosis. Tricuspid Valve Tricuspid valve structure is normal. Mildly thickened tricuspid leaflets. Mild tricuspid regurgitation. No tricuspid stenosis. Aortic Valve There is a trileaflet aortic valve. Mild aortic valve cusp thickening. Mild aortic valve annular calcification. No aortic regurgitation. No aortic stenosis. Pulmonic Valve Pulmonic valve structure is normal. Trace pulmonic regurgitation. No pulmonic stenosis. Ascending Aorta The sinuses of Valsalva and ascending aorta are normal. Pericardium No pericardial effusion. Pulmonary Artery Pulmonary artery systolic pressure is upper normal. Estimated pulmonary artery pressure is 37 mmHg. Main pulmonary artery size is normal. Atrial Septum No interatrial shunt detected by color flow Doppler. Ventricular Septum Normal septal motion. Study Details A complete echo was performed using 2D imaging, color flow Doppler and complete spectral Doppler. During the study the apical, parasternal and subcostal view was captured. Wall Scoring Baseline Score Index: 1.00 The left ventricular wall motion is normal. Katelyn Chavira NP CV ECHO PROCEDURES Seema ori Result * (ABNORMAL) D-Dimer, Quantitative (for DVT/PE) (06/03/2024 4:10 PM EST) Pathologist [facility] D-Dimer, Quantitative 0.54(HH) 0.10 - 0.49 mg/L FEU 06/03/2024 4:45 PM EST [facility] Comment:A D-DIMER VALUE OF < 0.50 ug/FEU/mL HAS A STRONG NEGATIVE PREDICTIVE VALUE FOR EXCLUSION OF PULMONARY EMBOLIC AND DEEP VEIN THROMBOSIS. CLINICAL CORRELATION IS INDICATED. Blood Structure of peripheral vein / Unknown Venipuncture / Unknown 06/03/2024 4:10 PM EST 06/03/2024 4:15 PM EST us Calvin Fontenot MD LAB BLOOD ORDERABLES Final R esult [facility] [address] [place] [address], * [place] Lower Extremity Venous Left (06/03/2024 3:41 PM EST) Anatomical Region Laterality Modality Lower Extremities Left Ultrasound 06/03/2024 3:47 PM EST Impressions 06/03/2024 3:48 PM EST No sonographic evidence for left lower extremity deep vein thrombosis If this radiology report contains a blank impression section, it is an incomplete radiology report. ??Please contact the interpreting radiologist or applicable radiology division as soon as possible to obtain the completed interpretation. ? Workstation ID: [id number] Narrative 06/03/2024 3:48 PM EST EXAMINATION: US LOWER EXTREMITY VENOUS LEFT INDICATION: ? DVT leg swelling TECHNIQUE: Multiple grayscale, color Doppler, and spectral Doppler images of the left lower extremity veins were obtained. Graded compression and augmentation of flow were also performed. COMPARISON: No previous lower extremity venous ultrasound FINDINGS: The left common femoral, femoral, proximal deep femoral (profunda femoris), and popliteal veins demonstrate normal compressibility, Doppler flow, and waveforms without evidence of thrombus. There is normal respiratory variation within the right and left common femoral veins. The left femoral vein/great saphenous vein junction is patent. The left posterior tibial and peroneal veins are patent. No Mckeon's cyst identified behind the knee Resulting Agency Comment [id number] Procedure Note Sonny Valdivia MD - 06/03/2024 EXAMINATION: US LOWER EXTREMITY VENOUS LEFT INDICATION: ? DVT leg swelling TECHNIQUE: Multiple grayscale, color Doppler, and spectral Doppler imagesof the left lower extremity veins were obtained. Graded compression andaugmentation of flow were also performed. COMPARISON: No previous lower extremity venous ultrasound FINDINGS: The left common femoral, femoral, proximal deep femoral (profundafemoris), and popliteal veins demonstrate normal compressibility, Dopplerflow, and waveforms without evidence of thrombus. There is normalrespiratory variation within the right and left common femoral veins. Theleft femoral vein/great saphenous vein junction is patent. The left posterior tibial and peroneal veins are patent. No Mckeon's cyst identified behind the knee IMPRESSION: No sonographic evidence for left lower extremity deep vein thrombosis If this radiology report contains a blank impression section, it is anincomplete radiology report. Please contact the interpreting radiologistor applicable radiology division as soon as possible to obtain thecompleted interpretation. Workstation ID: [id number] Calvin Fontenot MD [facility] [place] PROCEDURES Final Resu lt * Rapid COVID-19, FLU A, FLU B & RSV RNA PCR, Symptomatic (ED ONLY) (06/03/2024 3:02 PM EST) Pathologist [facility] PCR, SARS CoV-2 RNA Not Detected Not Detected [facility] 06/03/2024 3:48 PM EST [facility] Flu A RNA PCR Not Detected Not Detected [employer] 06/03/2024 3:48 PM EST [facility] Flu B RNA PCR Not Detected Not Detected [employer] 06/03/2024 3:48 PM EST [facility] RSV RNA PCR Not Detected Not Detected [employer] 06/03/2024 3:48 PM EST [facility] Comment: Limitations: This RSV test is suitable for the pediatric population (less than 19 years of age) only. Performance characteristics have not been established for use with patients older than 19 years of age and immunocompromised patients. Test results must be evaluated in conjuction with other clinical data available to the physician. Swab (Nares) Non-Blood Collection / Unknown 06/03/2024 3:02 PM EST 06/03/2024 3:06 PM EST [facility] - 06/03/2024 3:48 PM EST Methodology: The [employer] GeneXpert CoV-2/Flu/RSV plus assay is For Use Under an Emergency Use Authorization (EUA) Only with [employer]. The CoV-2/Flu/RSV plus assay is a [...] FLUIDS AND STOOLS O RDERABLES Final Result [facility] [address] [facility] [facility] [address] [place] [address], [place] [phone] * CT Lumbar Spine WO Contrast (06/02/2024 6:15 PM EST) Anatomical Region Laterality Modality Spine, L-spine Computed Tomogra phy 06/02/2024 6:52 PM EST Impressions 06/02/2024 7:00 PM EST Stable postoperative changes without acute complication. Incidental 1.5 cm splenic artery aneurysm. If this radiology report contains a blank impression section, it is an incomplete radiology report. ??Please contact the interpreting radiologist or applicable radiology division as soon as possible to obtain the completed interpretation. ? Workstation ID: [id number] Up-to-date CT equipment and radiation dose reduction techniques were employed. CTDIvol: 22.2 - 54.3 mGy. DLP: 3111 mGy-cm. ??The following accession numbers are related to this dose report [id number]: [id number] Narrative 06/02/2024 7:00 PM EST COMPARISON: None available. FINDINGS: There is no evidence of acute compression fracture. ??Alignment is maintained. ?? 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 ??Severe degenerative changes are seen most severe at L3-4. ??Paraspinous soft tissues are unremarkable. ??Incidental 1.5 cm splenic artery aneurysm Resulting Agency Comment [id number] Procedure Note Luis Mayfield MD - 06/02/2024 COMPARISON: None available. FINDINGS: There is no evidence of acute compression fracture. Alignment ismaintained. 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 Severedegenerative changes are seen most severe at L3-4. Paraspinous softtissues are unremarkable. Incidental 1.5 cm splenic artery aneurysm IMPRESSION: Stable postoperative changes without acute complication. Incidental 1.5 cm splenic artery aneurysm. If this radiology report contains a blank impression section, it is anincomplete radiology report. Please contact the interpreting radiologistor applicable radiology division as soon as possible to obtain thecompleted interpretation. Workstation ID: [id number] Up-to-date CT equipment and radiation dose reduction techniques wereemployed. CTDIvol: 22.2 - 54.3 mGy. DLP: 3111 mGy-cm. The followingaccession numbers are related to this dose report [id number]: [id number] Govind Glez MD IMG CT PROCEDURES Final Result * CT Cervical Spine WO Contrast (06/02/2024 6:15 PM EST) Anatomical Region Laterality Modality Spine, C-spine Computed Tomogra phy 06/02/2024 6:23 PM EST Impressions 06/02/2024 6:31 PM EST No acute traumatic intracranial or cervical spine abnormality. If this radiology report contains a blank impression section, it is an incomplete radiology report. ??Please contact the interpreting radiologist or applicable radiology division as soon as possible to obtain the completed interpretation. ? Workstation ID: [id number] Up-to-date CT equipment and radiation dose reduction techniques were employed. CTDIvol: 22.2 - 54.3 mGy. DLP: 3111 mGy-cm. ??The following accession numbers are related to this dose report [id number]: [id number] Up-to-date CT equipment and radiation dose reduction techniques were employed. CTDIvol: 22.2 - 54.3 mGy. DLP: 3111 mGy-cm. ??The following accession numbers are related to this dose report [id number]: [id number] Narrative 06/02/2024 6:31 PM EST COMPARISON: 04/28/2016. TECHNIQUE: ?? 3D volume-rendered reconstructions were generated under my concurrent supervision at the acquisition workstation.. FINDINGS: ?? HEAD: There is no evidence of acute intracranial hemorrhage. ??There is hypodensity and volume loss in the right frontotemporal lobe consistent with encephalomalacia/gliosis. ??There is severe global atrophy. There are periventricular hypodensities which are nonspecific but likely represent chronic small vessel ischemic change.. The visualized paranasal sinuses and mastoid air cells are normally aerated. ??The calvarium is intact. CERVICAL SPINE: There is no evidence of acute fracture. ??Spinal fusion is again seen at C5-6 with intact hardware. ??Degenerative anterolisthesis of C3-4 is noted. ??There is reversal of the normal cervical lordosis. . ??The paravertebral soft tissues, including the visualized airway, are within normal limits. Resulting Agency Comment [id number] Procedure Note Luis Mayfield MD - 06/02/2024 COMPARISON: 04/28/2016. TECHNIQUE: 3D volume-rendered reconstructions were generated under my concurrentsupervision at the acquisition workstation.. FINDINGS: HEAD: There is no evidence of acute intracranial hemorrhage. There ishypodensity and volume loss in the right frontotemporal lobe consistentwith encephalomalacia/gliosis. There is severe global atrophy. There areperiventricular hypodensities which are nonspecific but likely representchronic small vessel ischemic change.. The visualized paranasal sinusesand mastoid air cells are normally aerated. The calvarium is intact. CERVICAL SPINE: There is no evidence of acute fracture. Spinal fusion is again seen atC5-6 with intact hardware. Degenerative anterolisthesis of C3-4 is noted.There is reversal of the normal cervical lordosis. . The paravertebralsoft tissues, including the visualized airway, are within normal limits. IMPRESSION: No acute traumatic intracranial or cervical spine abnormality. If this radiology report contains a blank impression section, it is anincomplete radiology report. Please contact the interpreting radiologistor applicable radiology division as soon as possible to obtain thecompleted interpretation. Workstation ID: [id number] Up-to-date CT equipment and radiation dose reduction techniques wereemployed. CTDIvol: 22.2 - 54.3 mGy. DLP: 3111 mGy-cm. The followingaccession numbers are related to this dose report [id number]: [id number] Up-to-date CT equipment and radiation dose reduction techniques wereemployed. CTDIvol: 22.2 - 54.3 mGy. DLP: 3111 mGy-cm. The followingaccession numbers are related to this dose report [id number]: [id number] Govind Glez MD IM CT PROCEDURES Final Result * CT Head WO Contrast (06/02/2024 6:15 PM EST) Anatomical Region Laterality Modality Head and Neck Computed Tomogra phy 06/02/2024 6:23 PM EST Impressions 06/02/2024 6:31 PM EST No acute traumatic intracranial or cervical spine abnormality. If this radiology report contains a blank impression section, it is an incomplete radiology report. ??Please contact the interpreting radiologist or applicable radiology division as soon as possible to obtain the completed interpretation. ? Workstation ID: [id number] Up-to-date CT equipment and radiation dose reduction techniques were employed. CTDIvol: 22.2 - 54.3 mGy. DLP: 3111 mGy-cm. ??The following accession numbers are related to this dose report [id number]: [id number] Up-to-date CT equipment and radiation dose reduction techniques were employed. CTDIvol: 22.2 - 54.3 mGy. DLP: 3111 mGy-cm. ??The following accession numbers are related to this dose report [id number]: [id number] Narrative 06/02/2024 6:31 PM EST COMPARISON: 04/28/2016. TECHNIQUE: ?? 3D volume-rendered reconstructions were generated under my concurrent supervision at the acquisition workstation.. FINDINGS: ?? HEAD: There is no evidence of acute intracranial hemorrhage. ??There is hypodensity and volume loss in the right frontotemporal lobe consistent with encephalomalacia/gliosis. ??There is severe global atrophy. There are periventricular hypodensities which are nonspecific but likely represent chronic small vessel ischemic change.. The visualized paranasal sinuses and mastoid air cells are normally aerated. ??The calvarium is intact. CERVICAL SPINE: There is no evidence of acute fracture. ??Spinal fusion is again seen at C5-6 with intact hardware. ??Degenerative anterolisthesis of C3-4 is noted. ??There is reversal of the normal cervical lordosis. . ??The paravertebral soft tissues, including the visualized airway, are within normal limits. Resulting Agency Comment [id number] Procedure Note Luis Mayfield MD - 06/02/2024 COMPARISON: 04/28/2016. TECHNIQUE: 3D volume-rendered reconstructions were generated under my concurrentsupervision at the acquisition workstation.. FINDINGS: HEAD: There is no evidence of acute intracranial hemorrhage. There ishypodensity and volume loss in the right frontotemporal lobe consistentwith encephalomalacia/gliosis. There is severe global atrophy. There areperiventricular hypodensities which are nonspecific but likely representchronic small vessel ischemic change.. The visualized paranasal sinusesand mastoid air cells are normally aerated. The calvarium is intact. CERVICAL SPINE: There is no evidence of acute fracture. Spinal fusion is again seen atC5-6 with intact hardware. Degenerative anterolisthesis of C3-4 is noted.There is reversal of the normal cervical lordosis. . The paravertebralsoft tissues, including the visualized airway, are within normal limits. IMPRESSION: No acute traumatic intracranial or cervical spine abnormality. If this radiology report contains a blank impression section, it is anincomplete radiology report. Please contact the interpreting radiologistor applicable radiology division as soon as possible to obtain thecompleted interpretation. Workstation ID: [id number] Up-to-date CT equipment and radiation dose reduction techniques wereemployed. CTDIvol: 22.2 - 54.3 mGy. DLP: 3111 mGy-cm. The followingaccession numbers are related to this dose report [id number]: [id number] Up-to-date CT equipment and radiation dose reduction techniques wereemployed. CTDIvol: 22.2 - 54.3 mGy. DLP: 3111 mGy-cm. The followingaccession numbers are related to this dose report [id number]: [id number] Govind Glez MD IM CT PROCEDURES Final Result * COLONOSCOPY (09/01/2014 2:57 PM EDT) Narrative Procedure Note Kyle Alfredo MD - 09/01/2014 2:57 PM EDT Patient Name: Genie Vora Procedure Date: 09/01/2014 2:57 PM Date of : 1950 Admit Type: Outpatient Age: 64 Room: Room 5 Gender: Female Note Status: Finalized Attending MD: Kyle Alfredo MD Procedure: Colonoscopy Indications: Screening in patient at increased risk: Colorectal cancer in brother before age 60 Providers: Kyle Alfredo MD (Doctor) Referring MD: Jacobo Abel MD (Referring MD) Requesting Provider: Medicines: Monitored Anesthesia Care Complications: No immediate complications. Estimated Blood Loss: Estimated blood loss: none. Procedure: Pre-Anesthesia Assessment: - Prior to the procedure, a History and Physical was performed, and patient medications, allergies and sensitivities were reviewed. The patient's tolerance of previous anesthesia was reviewed. - The risks and benefits of the procedure and thesedation options and risks were discussed with the patient. All questions were answered and informed consent wasobtained. After I obtained informed consent, the scope was passed under direct vision. Throughout the procedure, the patient's blood pressure, pulse, and oxygen saturations were monitored continuously. The CFQ-160L Olympusserial # [id number] was introduced through the anus and advanced to the terminal ileum, with identification of theappendiceal orifice and IC valve. The bowel preparation used was CoLyte. The colonoscopy was somewhat difficult due to significant looping. The patient tolerated theprocedure well. The quality of the bowel preparation was good. Findings: The perianal and digital rectal examinations were normal. The terminal ileum appeared normal. A 2 mm polyp was found in the ascending colon. The polyp was flat.The polyp was removed with a cold biopsy forceps. Resection and retrieval were complete. The exam was otherwise without abnormality on direct and retroflexion views. Impression: - The examined portion of the ileum was normal. - One 2 mm polyp in the ascending colon. Resected and retrieved. - The examination was otherwise normal on direct and retroflexion views. Recommendation: - Await pathology results. - Repeat colonoscopy in 5 years. Kyle Alfredo MD 09/01/2014 3:48:34 PM This report has been signed electronically. 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 Advance Directive 08/06/2013 12:00 AM Adva nce Care Directives Advance Directive 07/26/2012 12:00 AM sf Me dical Dec Making (Adv.Dir) Advance Directive 01/15/2011 12:00 AM Adva nce Care Directives Advance Directive 01/10/2011 12:00 AM sf M edical Dec Making (Adv.Dir) * Full Code (Latest Code Status on File) Date Activated Date Inactivated Comments 06/16/2024 3:58 AM 06/26/2024 8:15 PM * Full Code Date Activated Date Inactivated Comments 06/03/2024 1:19 AM 06/04/2024 5:36 PM Care Teams Tie Up Worker Relationship Specialty Start Date End Date Bijal Fox, SURFACE PLATE INSPECTOR [address] [place] [id number] PCP - General Family Medicine 05/30/24
--- OUTSIDE RECORDS SUMMARY | 2024-07-10 11:22 | XMS_ITS | Encounter Summary ---
Author Organization [facility] Address [address] [place] [address] Care Team Providers Care Card Placer Name Role Phone Brandyn Pagan MD Primary Care Provider Unavaila Radha Fink NP Unavailable Unavailable Unknown Pcp, Non Rmg Primary Care Provider Unava ilable Encounter Details Date Type Department Care Team (Late st Contact Info) Description 01/28/2016 Orders Only [facility] [address] [place] [address] Radha Spangler, MEY Social History Tobacco Use Types Packs/Day Years [...] as of this encounter Progress Notes * Mary Nguyen - 01/29/2016 5:20 PM EDTQuick Note: Letter sent * Cindy Clements LPN - 01/29/2016 4:54 PM EDTQuick Note: To [place] please send letter Please send letter, labs stable. * Kristyn Staples ANP BC - 01/29/2016 4:50 PM EDTQuick Note: Please send letter, labs stable. documented in this encounter Miscellaneous Notes * Other Forms - Radha Spangler NP - 03/04/2016 12:00 AM EDT documented in this encounter Plan of Treatment Not on file documented as of this encounter Goals Goal Patient Goal Type Associated Problems Recent Progress Patient-Stated? Author Blood Pressure < 140/90 Blood Pressure 120/73( 017 9:26 AM EDT) No Radha Spangler NP documented as of this encounter Procedures * Due to [place] law, this organization might not be sharing negative HIV tests. Procedure Name Priority Date/Time Associated Diagnosis Comments BASIC METABOLIC PANEL WITH (GFR) Routine 01/28/2016 11:41 AM EDT Elevated serum creatinine documented in this encounter Results * Due to [place] law, this organization might not be sharing negative HIV tests. * (ABNORMAL) BASIC METABOLIC PANEL WITH (GFR) (01/28/2016 11:41 AM EDT) Glucose 95 65 - 99 mg/dL [facility] Comment: {GLUCOSE {[id number]) ? Fasting reference interval Urea Nitrogen Blood (BUN) 28(H) 7 - 25 mg/dL [facility] Comment:{UREA NITROGEN (BUN) {[id number]) Creatinine 1.12(H) 0.50 - 0.99 mg/dL [facility] Comment: {CREATININE {[id number]) For patients >49 years of age, the reference limit for Creatinine is approximately 13% higher for people identified as -[place]. GFR 52(L) > OR = 60 mL/min/1. 73m2 [facility] Comment:{eGFR NON-AFR. AMERI CAN {[id number]) GFR () 60 > OR = 60 mL/min/1. 73m2 [facility] Comment:{eGFR AMERIC AN {[id number]) BUN/Creatinine Ratio 25(H) 6 - 22 (calc) [facility] Comment:{BUN/CREATININE RATI O {[id number]) Sodium 140 135 - 146 mmol/L [facility] Comment:{SODIUM {[id number]) Potassium 4.8 3.5 - 5.3 mmol/L [facility] Comment:{POTASSIUM {[id number]) Chloride 106 98 - 110 mmol/L [facility] Comment:{CHLORIDE {[id number]) Carbon dioxide 30 20 - 31 mmol/L [facility] Comment:{CARBON DIOXIDE {[id number]) Calcium 9.5 8.6 - 10.4 mg/dL [facility] Comment:{CALCIUM {[id number]) 01/28/2016 11:4 1 AM EDT 01/28/2016 9:53 PM EDT Narrative [facility] - 01/29/2016 2:04 AM EDT Please note that this estimated [...] needs for GFR calculation. Resulting Agency Comment [id number] Radha Spangler NP LABORATORY Final Result Performing Organization Address City/State/[facility] Co de Phone Number [facility] [address] [place] [address] documented in this encounter Visit Diagnoses Diagnosis Elevated serum creatinine Other nonspecific findings on examination of blood documented in this encounter Care Teams Card Placer Relationship Specialty Start Date End Date Brandyn Pagan MD PCP - General Internal Medicine 08/07/15 02/02/17 Radha Spangler NP PCP - Backup PCP Internal Medicine 01/11/16 02/02/17 Unknown Pcp, Non Rmg PCP - General 02/03/17 documented as of this encounter
--- OUTSIDE RECORDS SUMMARY | 2024-07-10 11:22 | XMS_ITS | Encounter Summary ---
Author Organization [facility] Address [address] [place] [address] Care Team Providers Care Program And Research Coordinator Name Role Phone Bijal Fox DIGITAL MARKETING ASSISTANT Primary Care Provider [phone] Reason for Visit * Reason Onset Date Comments TCM 06/24/2024 Encounter Details Date Type Department Care Team ([facility] st Contact Info) Description 06/24/[address] Cardiology 100 [facility] [address] [place] [address] Elise Boykin MA TCM Social History Tobacco Use Types Packs/Day Years Used Date Smoking Tobacco: Former Smokeless Tobacco: Never Comments:: Alcohol Use Standard Drinks/Week Comments Not Currently 0 (1 standard drink = 0.6 oz pur e alcohol) [facility] Utilities Answer Date Recorded In [...] encounter Miscellaneous Notes * Telephone Encounter - Stephanie Beltre CMA - 07/01/2024 11:52 AM EST Pt aware, she will follow up with PCP. She also need samples of elequis unable to afforded. * Telephone Encounter - Yesika Holder RN - 06/28/2024 1:25 PM EST Was there an alternative to Lokelma we should send in? * Telephone Encounter - Yesika Holder RN - 06/27/2024 10:54 AM EST Discharged with a script for Lokelma but pt unable to afford. Is there an alternative we could sendin? Also needs a script for Eliquis 5mg BID- script prepped for 30day. * Telephone Encounter - Yesika Holder RN - 06/27/2024 10:45 AM EST TRANSITIONAL CARE MANAGEMENT TELEPHONE NOTE STAFF COMMENTS FOR PROVIDER Pt is aware of the upcoming appt and to complete blood work prior-order entered. Reviewed monitoring daily wts in the morning and reaching out if pt starts to notice wt gain >2lbs in a day or 5lbsin a week. Cardiac medications pt was under the impression to take Lasix 20mg as needed, advised tofollow the discharge instructions and take 1 tab daily. DISCHARGE INFORMATION Genie was discharged from a [facility] on 06/26/24 Last Hospital Admission Date Complaint Diagnosis Type Department Provider 06/15/24 SOB ED to Hosp-Admission (Discharged) (Admit) SB 2 Rogres Mendenhall MD; Kevin Newsome,... MEDICATION REVIEW The discharge medication list has been reviewed and updated in the medication review section. Do you have access to all the medications you were discharged with? No-Will send message regarding Lokelma GENERAL ASSESSMENT How have you been feeling since returning home? Much better aside from shortness of breath with exertion. 99% Spo2. Resolve What are you biggest concerns right now? 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 How are you managing at home? Okay Is there anything else we can help you with? No HOME HEALTH SERVICES Are you receiving visiting nurse services at home?: Yes Have they been in contact with you?: Yes Are there any additional services you are receiving? No WRAP UP Face to face visit: An office visit has been scheduled within 14 days of the discharge date. Future Appointments Date Time Provider Department Center 07/03/2024 2:30 PM Mabel Onofre NP [facility] * Telephone Encounter - Yesika Holder RN - 06/27/2024 10:37 AM EST LMTRC * Telephone Encounter - Yesika Holder RN - 06/26/2024 3:48 PM EST Pt to be discharged home today. TCM booked for 07/03 at 2:30p * Telephone Encounter - Yesika Holder RN - 06/26/2024 11:24 AM EST Currently admitted * Telephone Encounter - Elise Boykin MA - 06/24/2024 1:42 PM EST Pt still admitted * Telephone Encounter - Elise Boykin MA - 06/24/2024 1:42 PM EST ----- Message from Zaira Suarez sent at 06/21/2024 1:57 PM EST ----- Regarding: TCM ----- Message ----- From: Stephanie Hampton MD Sent: 06/21/2024 10:05 AM EST To: Mabel Onofre NP; # Acute renal insufficiency creatinine improving 1.15 GFR 51 we will hold on further Lasix treatment.Patient has Lasix tablets at home. Follow with Mabel Onofre NP TCM postdischarge for HFpEF documented in this encounter Plan of Treatment Upcoming Encounters Date Type Department Care Team (Late st Contact Info) Description 08/01/2024 2:00 PM EDT Follow-Up [facility] Nephrology [address] [place] [address] [address] [place] [address] John Hendricks MD [address] [address] 01/08/2025 10:00 AM EDT Follow-Up [address] Cardiology [address] [place] [address] Mabel Onofre NP [address] [place] [address] [address] [place] [address] documented as of this encounter Results * Due to [place] state law, this organization might not be sharing negative HIV tests. * N-terminal ProBrain Natriuretic Peptide (07/01/2024 8:39 AM EST) Pro-B-Type Natriuretic Peptide 288 <=900 pg/mL 07/01/2024 9:39 AM EST [facility] Comment: RULE IN CHF >/= 450 [...] EST 07/01/2024 9:05 AM EST Mabel Onofre DIGITAL MARKETING ASSISTANT LAB BLOOD ORDERABLES Final Result [facility] [address] [facility] [address] [place] [address], [place] [phone] * (ABNORMAL) Basic metabolic panel (07/01/2024 8:39 AM EST) NA 140 136 - 145 mmol/L 07/01/2024 9:36 AM EST [facility] K 5.3(H) 3.5 - 5.1 mmol/L 07/01/2024 9:36 AM EST [facility] Cl 102 98 - 109 mmol/L 07/01/2024 9:36 AM EST [facility] CO2 29 22 - 32 mmol/L 07/01/2024 9:36 AM EST [facility] BUN 34(H) 8 - 23 mg/dL 07/01/2024 9:36 AM EST [facility] Creatinine 1.27(H) 0.50 - 1.12 mg/dL 07/01/2024 9:36 AM EST [facility] Glucose 113(H) 60 - 99 mg/dL 07/01/2024 9:36 AM EST [facility] Calcium 8.9 8.4 - 10.4 mg/dL 07/01/2024 9:36 AM EST [facility] Anion Gap 14 >=0 07/01/2024 9:36 AM EST [facility] eGFR 45(L) >=60 mL/min/1. 73m2 07/01/2024 9:36 AM EST [facility] Comment:The estimated glomer ular filtration [...] Onofre NP LAB BLOOD ORDERABLES Final Result [facility] [address] [facility] [address] [place] [address], documented in this encounter Visit Diagnoses Diagnosis Diastolic heart failure, unspecified HF chronicity (HCC)- Primary Atrial fibrillation, unspecified type (HCC) documented in this encounter Care Teams Program And Research Coordinator Relationship Specialty Start Date End Date Bijal Fox NP [address] [facility] [address] [place] [address] PCP - General Family Medicine 05/30/24 documented as of this encounter
--- OUTSIDE RECORDS SUMMARY | 2024-07-10 11:22 | XMS_ITS | Encounter Summary ---
Author Organization [facility] Address [address] [place] [address] Care Team Providers Care Cast Shell Grinder Name Role Phone Bijal Fox STAFF RADIATION THERAPIST Primary Care Provider [phone] Encounter Details Date Type Department Care Team (Late st Contact Info) Description 06/23/2024 Lab Requisition [facility] [address] [place] [address] Mj Mendenhall MD [address] [place] [address] Pneumonia due to other specified infectious organisms Social History Tobacco Use Types Packs/Day Years Used Date Smoking Tobacco: Former Smokeless Tobacco: Never Comments:: Alcohol Use Standard Drinks/Week Comments Not Currently 0 (1 standard drink = 0.6 oz pur e alcohol) [facility] Utilities Answer Date Recorded In [...] Description 08/01/2024 2:00 PM EDT Follow-Up [facility] Nephrology [address] [place] [address] [address] [place] [address] John Hendricks MD [address] [address] 01/08/2025 10:00 AM EDT Follow-Up [address] Cardiology 100 [facility] [address] [place] [address] Mabel Onofre NP 100 [facility] [address] [place] [address] documented as of this encounter Procedures * Due to [facility] law, this organization might not be sharing negative HIV tests. Procedure Name Priority Date/Time Associated Diagnosis Comments VITAMIN D, 25-HYDROXY, TOTAL, IMMUNOASSAY Routine 06/23/2024 6:00 AM EST Pneumonia due to other specified infectious organisms documented in this encounter Results * Due to [facility] law, this organization might not be sharing negative HIV tests. * (ABNORMAL) Vitamin D, 25-Hydroxy, Total, Immunoassay (06/23/2024 6:00 AM EST) Vitamin D 25-OH 21.50(L) 30.00 - 80.00 ng/mL 06/23/2024 8:52 AM EST [facility] Blood Structure of peripheral vein / Unknown 06/23/2024 6:00 AM EST 06/23/2024 7:54 AM EST us Mj Mendenhall MD LAB BLOOD ORDERABLES Final R esult [facility] [address] [facility] [address] [place] [address], documented in this encounter Visit Diagnoses Diagnosis Pneumonia due to other specified infectious organisms documented in this encounter Care Teams Cast Shell Grinder Relationship Specialty Start Date End Date Bijal Fox, MEY [address] [facility] [address] [place] [address] PCP - General Family Medicine 05/30/24 documented as of this encounter
--- OUTSIDE RECORDS SUMMARY | 2024-07-10 11:22 | XMS_ITS | Encounter Summary ---
Author Organization [facility] Address [address] [place] [address] Care Team Providers Care Director Dance Name Role Phone Brandyn Pagan MD Primary Care Provider Unavaila Radha Fink NP Unavailable Unavailable Unknown Pcp, Non Rmg Primary Care Provider Unava ilable Encounter Details Date Type Department Care Team (Late st Contact Info) Description 01/08/2016 Orders Only [facility] [address] [place] [phone] Brandyn Pagan MD Social History Tobacco Use [...] on filedocumented in this encounter Care Teams Director Dance Relationship Specialty Start Date End Date Brandyn Pagan MD PCP - General Internal Medicine 08/07/15 02/02/17 Radha Spangler NP PCP - Backup PCP Internal Medicine 01/11/16 02/02/17 Unknown Pcp, Non Rmg PCP - General 02/03/17 documented as of this encounter
--- OUTSIDE RECORDS SUMMARY | 2024-07-10 11:22 | XMS_ITS | Encounter Summary ---
Author Organization [facility] Address [address] [place] [address] Care Team Providers Care Engine House Helper Name Role Phone Brandyn Pagan MD Primary Care Provider Radha Cuevas NP Unavailable Unavailable Unknown Pcp, Non Rmg Primary Care Provider Unava ilable Reason for Visit * Reason Onset Date Comments Labs/orders 12/28/2015 Creatinine Order for Radiology with Contrast Encounter Details Date Type Department Care Team ([facility] st Contact Info) Description 12/28/2015 Telephone 300 [facility] Magnetic Resonance Imaging [address] [place] [address] Radha Spangler NP Labs/orders (Creatinine Order for Radiology with Contrast) Social History Tobacco Use Types Packs/Day Years [...] on file documented as of this encounter Miscellaneous Notes * Telephone Encounter - Senia Lowry - 12/29/2015 11:43 AM EDT Pt aware, will p/u script and follow directions for use * Telephone Encounter - Radha Spangler NP - 12/28/2015 5:44 PM EDT I have written prescription for Ativan 1 mg to take night before test, followed by 1 tablet 30 minutes before test. Please let patient know so she can obtain the written Rx. * Telephone Encounter - Senia Lowry - 12/28/2015 4:58 PM EDT Asked pt what she did with the 11/01 script, Pt stated, I used them to help me sleep I didn't think I was going to Have the MRI . So now I need another script * Telephone Encounter - Radha Spangler NP - 12/28/2015 4:48 PM EDT I gave her a printed prescription for lorazepam No. 6 tablets at her appointment on 11/02/2015 in anticipation of an upcoming MRI. Since she did not have the MRI done, please inquire what she did without prescription? * Telephone Encounter - Cindy Clements LPN - 12/28/2015 4:30 PM EDT FYI she does not need a return call unless you have other plan. * Telephone Encounter - Cindy Clements LPN - 12/28/2015 4:28 PM EDT Pt aware and agrees w/plan. She is asking if Radha could prescribe a couple Ativan for her procedure as she is claustrophobic, pharm verified * Telephone Encounter - Senia Lowry - 12/28/2015 4:24 PM EDT lmtc For below angelica * Telephone Encounter - Radha Spangler NP - 12/28/2015 4:07 PM EDT Her lab requirements, patient will need a serum creatinine prior to MRI. I have ordered it. Please let patient know to have done in the next day or 2. documented in this encounter Plan of Treatment Scheduled Orders Name Type Priority Associated Diagnoses Orde r Schedule CREATININE WITH GLOMERULAR FILTRATION RATE, ESTIMATED (EGFR) Lab Routine Cervicodynia Expected: 12/28/2015 (Approximate), Expires: 12/27/2016 documented as of this encounter Goals Goal Patient Goal Type Associated Problems Recent Progress Patient-Stated? Author Blood Pressure < 140/90 Blood Pressure 120/73( 017 9:26 AM EDT) No Radha Spangler NP documented as of this encounter Visit Diagnoses Diagnosis Cervicodynia- Primary Cervicalgia documented in this encounter Care Teams Engine House Helper Relationship Specialty Start Date End Date Brandyn Pagan MD PCP - General Internal Medicine 08/07/15 02/02/17 Radha Spangler NP PCP - Backup PCP Internal Medicine 01/11/16 02/02/17 Unknown Pcp, Non Rmg PCP - General 02/03/17 documented as of this encounter
--- OUTSIDE RECORDS SUMMARY | 2024-07-10 11:23 | XMS_ITS | Data Portability ---
Author Organization [facility], [place] Address [address] [place] [address] Care Team Providers Care Joiner Helper Name Role Phone JANIE SOLOMON Primary Care Provider JANIE SOLOMON Referring Provider Assessment Encounter Date Assessment Date Assessment LastModified by Organization Details LastModified Time 07/21/2023 07/21/2023 This visit today consisted of multiple elements: 1) Number and complexity of problems addressed: Low b. 1 stable chronic illness 3) Risk of morbidity\mor tality: Low I have determined the complexity of the problem and Condition(s), etiologies, and options for care, treatment plan, and prognosis were reviewed with the patient. [email or web address] Not available 07/31/2023 03:00:11 Plan of Treatment Reminders Order Date Submit Date Provider Last Modified By Organization Details Last Modified Time Details Appointments None recorded . Lab fungus, culture, skin or hair or nails - left hallux nail 024 10/19/19 24 [facility], [address], [place], [address], 4 09:21:19 Referral None recorded . Procedures None recorded . Surgeries None recorded . Imaging XR, ankle, 3 or more view 024 07/31/19 24 [email or web address] [facility], [address], [address], [place], [address], 4 00:03:13 Medication Orders None recorded . Patient TargetsNo targets recorded. Patient InstructionsNo instructions recorded. Reason for Referral None Reported. Results Created Date Observation Date Name Description Value Unit Range Abnormal Flag Note LastModifiedBy Organization Detail LastModifiedTime 07/31/19 24 XR, ankle , 3 or more view No observ ation record ed. [email or web address] [facility] [address], [place], [address], 07/31/2023 00:03:11 Result Notes None recorded. Procedures Surgical History Date Name Laterality Status Provider Name and Address Organization Details Recorded Time procedure on knee completed [facility] 07/21/2023 16:09:01 procedure on hip completed [facility] 07/21/2023 16:09:08 procedure on back completed [facility] 07/21/2023 16:09:18 procedure on neck completed [facility] 07/21/2023 16:09:26 Imaging Results Imaging Date Name Status LastModified by Organiz ation Details LastModified Time 07/31/2023 XR, ankle, 3 or more view completed [email or web address] [facility] [address], [place], [address], 07/31/2023 00:03:11 Procedure Notes None recorded. Medical Equipment None Reported. Allergies Allergen ID Allergen Name Allergen Category Reaction Reaction Severity Criticality Documentation Date Start Date Code Code System Note Provider Name and Address Organization Details Recorded Time [id number] Product containin g 3-hydroxy -3-methyl glutaryl- coenzyme A reductase inhibitor (product) medicatio n Not available Not available Not available 07/21/2023 [id number] SNOMED [facility] 16:06:50 Medications Name Sig Start Date Stop Date Status Note LastModified by Organization Details LastModified Time losartan 50 mg tablet TAKE 1 TABLET BY MOUTH EVERY DAY FOR 90 DAYS active Not Available Not Available No t Available tretinoin 0.1 % topical cream APPLY TO AFFECTED AREA AT BEDTIME active Not Available Not Available No t Available methocarbam ol 500 mg tablet TAKE 1 TABLET BY MOUTH FOUR TIMES A DAY 07/20 completed Not Available Not Available Not Available clonidine HCl 0.1 mg tablet TAKE 1 TABLET BY MOUTH EVERY DAY active Not Available Not Available No t Available gabapentin 600 mg tablet TAKE 1 TABLET BY MOUTH EVERY DAY 07/20 completed Not Available Not Available Not Available doxycycline hyclate 100 mg capsule TAKE 1 CAPSULE BY MOUTH TWICE A DAY FOR 10 DAYS 07/20 completed Not Available Not Available Not Available trazodone 50 mg tablet TAKE 1 TABLET BY MOUTH EVERY DAY AT BEDTIME NEEDED FOR 90 DAYS active Not Available Not Available No t Available fluconazole 150 mg tablet 1 TABLET ORALLY EVERY 72 HOURS 3 DAYS 07/20 completed Not Available Not Available Not Available methylpheni date 10 mg tablet TAKE 1 TABLET BY MOUTH TWICE A DAY active Not Available Not Available No t Available hydrocodone 5 mg-acetamin ophen 325 mg tablet TAKE 1 TABLET BY MOUTH FOUR TIMES A DAY 07/20 completed Not Available Not Available Not Available prazosin 1 mg capsule TAKE 1-3 CAPS BY MOUTH AT BEDTIME MONITOR BP. 07/20 completed Not Available Not Available Not Available ondansetron HCl 4 mg tablet TAKE 1 TABLET ORALLY EVERY 6 HR 30 DAY(S) 07/20 completed Not Available Not Available Not Available tretinoin 0.05 % topical cream APPLY A PEA SIZED AMOUNT TO AFFECTED AREAS OF ACNE AT BEDTIME 07/20 completed Not Available Not Available Not Available sulfamethox azole 800 mg-trimetho prim 160 mg tablet TAKE 1 TABLET BY MOUTH TWICE A DAY FOR 3 DAYS active Not Available Not Available No t Available doxycycline monohydrate 100 mg tablet TAKE 1 TABLET BY MOUTH TWICE A DAY FOR 10 DAYS 07/20 completed Not Available Not Available Not Available tramadol 50 mg tablet TAKE 1 TABLET BY MOUTH EVERY 8 HOURS NEEDED FOR 30 DAYS active Not Available Not Available No t Available triamcinolo ne acetonide 0.1 % topical cream APPLY TWICE DAILY TO AFFECTED AREAS FOR TWO WEEKS active Not Available Not Available No t Available amoxicillin 500 mg tablet TAKE FOUR TABLETS BY MOUTH ONE HOUR PRIOR TO DENTAL WORK 07/20 completed Not Available Not Available Not Available levothyroxi ne 100 mcg tablet TAKE 1 TABLET BY MOUTH EVERY DAY IN THE MORNING ON EMPTY STOMACH FOR 90 DAYS active Not Available Not Available No t Available oxycodone-a cetaminophe n 5 mg-325 mg tablet TAKE 1 TABLET BY MOUTH EVERY 6 HOURS NEEDED FOR POST OP PAIN DNF [id number] 07/20 completed Not Available Not Available Not Available lorazepam 0.5 mg tablet TAKE ONE TABLET BY MOUTH NO MORE THAN ONCE PER DAY NEEDED FOR SEVERE ANXIETY. 07/20 completed Not Available Not Available Not Available oxycodone-a cetaminophe n 10 mg-325 mg tablet TAKE 1 TAB BY MOUTH EVERY 4 HOURS NEEDED FOR POST OP PAIN START AFTER DILAUDID FINISHED 07/20 completed Not Available Not Available Not Available baclofen 10 mg tablet TAKE 1 TABLET BY MOUTH THREE TIMES A DAY NEEDED 07/20 completed Not Available Not Available Not Available hydrocodone 7.5 mg-acetamin ophen 325 mg tablet TAKE 1 TABLET BY MOUTH NEEDED FOR ACUTE PAIN FOR7 DAY EXCEPTION ORALLY EVERY 6 HRS 3 DAYS 07/20 completed Not Available Not Available Not Available cephalexin 500 mg capsule TAKE ONE CAPSULE BY MOUTH TWICE A DAY FOR 10 DAYS FOR INFECTION 07/20 completed Not Available Not Available Not Available prednisone 50 mg tablet TAKE 1 TABLET BY MOUTH EVERY DAY FOR 5 DAYS 07/20 completed Not Available Not Available Not Available flecainide 50 mg tablet TAKE 1 TABLET BY MOUTH EVERY 12 HOURS active Not Available Not Available No t Available diltiazem ER (XR/XT) 120 mg capsule,ext ended release 24 hr, controlled TAKE 1 CAPSULE BY MOUTH EVERY DAY FOR 90 DAYS active Not Available Not Available No t Available flecainide 100 mg tablet active Not Available Not Available Not Available fluoxetine 10 mg capsule TAKE 1 CAPSULE BY MOUTH EVERY MORNING AFTER TAPERING OFF LEXAPRO IS COMPLETE *D/C LEXAPRO* 07/20 completed Not Available Not Available Not Available gabapentin 300 mg capsule TAKE 1 CAPSULE BY MOUTH TWICE A DAY 07/20 completed Not Available Not Available Not Available mupirocin 2 % topical ointment APPLY SPARINGLY BY TOPICAL ROUTE THREE TIMES A DAY FOR 10 DAYS FOR INFECTION 07/20 completed Not Available Not Available Not Available furosemide 20 mg tablet TAKE 1 TABLET BY MOUTH EVERY DAY active Not Available Not Available No t Available [place] Thyroid 30 mg tablet TAKE 1 ORAL TABLET TWICE TIMES A DAY 07/20 completed Not Available Not Available Not Available gabapentin 100 mg capsule TAKE 1 CAPSULE BY MOUTH THREE TIMES A DAY FOR 90 DAYS active Not Available Not Available No t Available methylpredn isolone 4 mg tablets in a dose pack TAKE 6 TABLETS ON DAY 1 DIRECTED ON PACKAGE AND DECREASE BY 1 TAB EACH DAY FOR A TOTAL OF 6 DAYS 07/20 completed Not Available Not Available Not Available hydromorpho ne 4 mg tablet 1 TABLET EVERY 6 HOURS - TAKE INITIALLY AFTER SURGERY DO NOT MIX 07/20 completed Not Available Not Available Not Available losartan 100 mg tablet TAKE 1 TABLET BY MOUTH EVERY DAY FOR 30 DAYS 07/20 completed Not Available Not Available Not Available fluticasone propionate 50 mcg/actuati on nasal spray,suspe nsion SPRAY 1 SPRAY BY INTRANASA L ROUTE EVERY DAY 07/20 completed Not Available Not Available Not Available metronidazo le 0.75 % topical gel APPLY TO AFFECTED AREAS OF FACE EVERY MORNING 07/20 completed Not Available Not Available Not Available amoxicillin 875 mg-potassiu m clavulanate 125 mg tablet TAKE 1 TABLET BY MOUTH TWICE A DAY FOR 7 DAYS 07/20 completed Not Available Not Available Not Available hydroxyzine pamoate 25 mg capsule TAKE 1-2 CAPSULES BY MOUTH UP TO TWICE A DAY NEEDED FOR SEVERE ANXIETY. 07/20 completed Not Available Not Available Not Available escitalopra m 10 mg tablet TAKE 1 & 1/2 TABLETS BY MOUTH EVERY DAY 07/20 completed Not Available Not Available Not Available ezetimibe 10 mg tablet TAKE 1 TABLET BY MOUTH EVERY DAY FOR 90 DAYS active Not Available Not Available No t Available rosuvastati n 5 mg tablet TAKE 1 TABLET BY MOUTH EVERYDAY AT BEDTIME 07/20 completed Not Available Not Available Not Available metoprolol tartrate 25 mg tablet TAKE 1 TABLET BY MOUTH TWICE A DAY WITH FOOD FOR 90 DAYS active Not Available Not Available No t Available duloxetine 30 mg capsule,del ayed release TAKE 1 CAPSULE BY MOUTH EVERY DAY 07/20 completed Not Available Not Available Not Available duloxetine 60 mg capsule,del ayed release TAKE 1 CAPSULE BY MOUTH EVERY DAY FOR 90 DAYS active Not Available Not Available No t Available Eliquis 5 mg tablet TAKE 1 TABLET BY MOUTH TWICE A DAY active Not Available Not Available No t Available Vitals Date Recorded Body height Body mass index (BMI) Body weight Heart rate Systolic blood pressure Diastolic blood pressure Provider Name and Address Organization Details Last Updated DateTime 03/01/202 4 167.64 cm 35.5 kg/m2 30111.3 2 g 77 /min 155 mm[Hg] 102 mm[Hg] Kelly Mcdonald [facility] 4 16:08:09 Date Recorded Body height Body mass index (BMI) Body weight Heart rate Systolic blood pressure Diastolic blood pressure Provider Name and Address Organization Details Last Updated DateTime 4 167.64 cm 35.5 kg/m2 53532.3 2 g 68 /min 155 mm[Hg] 95 mm[Hg] Kelly Mcdonald [facility] 4 16:56:50 Date Recorded Body height Body mass index (BMI) Body weight Heart rate Systolic blood pressure Diastolic blood pressure Provider Name and Address Organization Details Last Updated DateTime 4 167.64 cm 35.5 kg/m2 59675.3 2 g 81 /min 118 mm[Hg] 65 mm[Hg] Kelly Mcdonald [facility] 4 14:22:16 Social History Question Answer Notes LastModified by Organizat ion Details LastModified Time Tobacco Smoking Status Former Smoker Kelly Mcdonald [facility] 07/21/2023 16:08:43 Do You Have An Advance Directive? No Information not available 07/21/2023 Are You Blind Or Do You Have Difficulty Seeing? Yes Information not available 09/28/2023 Are You Deaf Or Do You Have Serious Difficulty Hearing? No Information not available 09/28/2023 How Much Are You On Your Feet During The Day? 50% Information not available 09/28/2023 Do You Use Tobacco Products? Never Information no t available 09/28/2023 Do You Drink Alcohol? Never Information not available 09/28/2023 Do You Exercise? Daily Informat ion not available 09/28/2023 Do You Smoke? No Information not available 07/21/2023 Do You Drink? No Information not available 07/21/2023 Illicit Drug Use? No Informa tion not available 07/21/2023 Children? Yes Information no t available 07/21/2023 Do You Have A Medical Power Of Powerhouse Electrician? No Information not available 07/21/2023 What Is Your Relationship Status? Single Information not available 09/28/2023 Sex: Unknown Functional Status Question Answer Note LastModified by Organization D etails LastModified Time Are you able to walk? YESWOREST Information not available 09/28/2023 Mental Status None recorded. Family History Nothing Reported. Medical History Condition Response Arthritis Y Stroke Y Rheumatoid Arthritis N Back Pain Y Diabetes N Neuropathy Y Hypertension Y Gynecological HistoryNo gynecological history recorded. Obstetrics History GPAL:G 0 P 0 0 0 0 Past Encounters Encounter ID Performer Location Encounter Start Date Encounter Closed Date Diagnosis/Indication Diagnosis SNOMED-CT Code Diagnosis ICD10 Code Diagnosis Note [id number] Jair Winter DPM [facility] [address] [place] [address] 07/21/2023 15:55:39 07/21/2023 16:23:11 Acquired valgus deformity of left ankle [id number] 52751 M21.072 X-rays 3 views left foot DP/LAT/LO taken today and reviewed by me revealed pes planus, infracalca sunny bone spur, tiny retrocalca sunny spur, severe eburnation with DJD of the midtarsal joint, claw toe hammertoe contractur es, medial first metatarsal head exostosis with large peroneal ossicle. {{Acquired * Congenit al}} {{Left* Ri ght Bilate ral}}: The patient was educated regarding how to mechanical ly stabilize their deformity. The patient was given education about shoe recommenda tions specific to the condition. The patient was educated about custom orthotics and how appropriat e shoes and orthotics can prevent further worsening of the deformity. The patient was educated about how bad shoe habits can worsen the condition. NSAIDs, P.T., injections , and other conservati ve treatments were discussed. Both surgical and non-surgic al treatments were discussed, but conservati ve options were emphasized . For her situation she will best be helped with a Curry brace AFO with 6degrees varus heel wedge and 2 degrees varus forefoot wedge. Authorizat ion request will be sent to PCP for L1970 and L2820. [id number] Jair Winter DPM [facility] [address] [address] 09/28/2023 15:34:38 09/28/2023 17:16:16 Acquired valgus deformity of left ankle [id number] 91911 M21.072 Curry brace AFO with 6degrees varus heel wedge and 2 degrees varus forefoot wedge. Authorizat ion for L1970 and L2820 is in the chart:At this time a custom Curry Brace ankle foot orthosis was prescribed for their LEFT foot and ankle condition. It is expected that the patient will require the use of this device for an extended period of time and this device has been utilized in an attempt to indicate the need for surgery. Goals of this therapy are to reduce ambulatory pain, improve subtalar joint function, limit further progressio n of the patients condition, improve stability, reduce hind foot valgus, protect atrophy tissues. The patient's left foot/ankle was scanned non-weight bearing in a biomechani keren neutral position of the foot and ankle. I explained to the patient that the device will fit and function best in a lace-up shoe with stiff heel contour. The patient was cautioned to not purchase any new shoes until device is dispensed to them to ensure proper fit. They will return to the office when the device has returned from the lab for dispensing and fitting. [id number] Jair Winter DPM [facility] [address] [address] 10/19/2023 14:03:51 10/19/2023 15:20:34 Dystrophia unguium [id number] L60.3 Condition( s), etiologies , and options for care, treatment plan, and prognosis were reviewed. All questions were answered in detail.Dis cussed oral vs topical management . Before initiating treatment laboratory data will need to be obtained. A specimen of the toenail was sent to the lab for PAS stain and or PCR fungal testing. If the result is positive, we'll request a copy of the most recent complete metabolic panel to determine tolerabili ty of the drug by his kidneys and liver. If the results are acceptable prescripti on for oral terbinafin e 250 mg medication will be sent to his regular pharmacy.F shivalow up in one month for nail check and plan of care. This visit today consisted of multiple elements: 1) Number and complexity of problems addressed: Low b. 1 stable chronic illness 3) Risk of morbidity\ mortality: Low I have determined the complexity of the problem and Condition( s), etiologies , and options for care, treatment plan, and prognosis were reviewed with the patient. Acquired v algus deformity of left ankle [id number] 44749 M21.072 Curry brace AFO with 6 degrees varus heel wedge and 2 degrees varus forefoot wedge. Authorizat ion for L1970 and L2820 is in the chart:Good size and good fit of the LEFT Curry brace AFO was confirmed at the time of the dispensati on. The device was dispensed and fitted into the patients shoes. At the time of dispensing , the custom-mad e AFO device was suitable and not substandar d. The patient was able to apply the custom-mad e AFO correctly. Proper use and care were reviewed, as well as the break-in period. The patient was instructed to gradually increase the amount of time they are wearing the orthoses until they are wearing the orthoses aircraft time clerk. The AFO device was comfortabl e and controllin g upon gait analysis and the patient was able to ambulate without distress. No guarantees were given, and precaution s were reviewed. Written instructio ns, warranty informatio n and a copy of current supplier standards were provided. FOLLOW UP IN 4 WEEKS FOR BRACE CHECK AND POSSIBLE ADJUSTMENT S. Health Concerns Section Related Observation LastModified by Organization Detai ls LastModified Time None Recorded Concern Status LastModified by Organization Details LastModified Time None Recorded Advance Directives Directive N: Payers Encounter Date Sequence Insurance Name Policy Number Policy Sinclair Covered Member ID Sinclair Member ID Guarantor Name 07/21/2023 1 [employer] (MEDICARE REPLACEMENT HMO) [id number] Genie Vora [id number] Genie Vora 09/28/2023 1 [employer] (MEDICARE REPLACEMENT HMO) [id number] Genie Vora [id number] Genie Vora 10/19/2023 1 [employer] (MEDICARE REPLACEMENT HMO) [id number] Genie Vora [id number] Genie Vora Notes Date Note Type Note Provider Name and Address Organization Details Recorded Time 07/21/2023 text/html New patient presents for management of painful left foot and ankle. The patient reports that ankle has slowly sagged in the medial direction. He denies any history of trauma. It is worse with prolonged standing or walking.Reported past medical history was reviewed. Jair Winter DPM [address] [place], [address], [facility] 07/31/2023 03:01:43 09/28/2023 text/html The patient presents for scanning of her left foot and ankle for a Curry brace. This will help her progressive left ankle valgus deformity. Jair Winter DPM [address] [place], [address], [facility] 09/28/2023 21:49:44 10/19/2023 text/html 1. Springer Brace flower buncher or picker for left ankle.2. Concerned about increasing yellowing of toenails. Jair Winter DPM [address] [place], [address], [facility] 10/22/2023 16:25:45 OBGyn Episode No OBEpisode recorded.
--- OUTSIDE RECORDS SUMMARY | 2024-07-10 11:23 | XMS_ITS | Encounter Summary ---
Author Organization [facility] Address [address] [place] [address] Care Team Providers Care Laundromat Worker Name Role Phone Brandyn Pagan MD Primary Care Provider Unavaila Radha Fink NP Unavailable Unavailable Unknown Pcp, Non [facility] Primary Care Provider Unava ilable Encounter Details Date Type Department Care Team (Late st Contact Info) Description 06/09/2016 Orders Only [facility] [address] [place] [address] Radha Spangler NP Social History Tobacco Use [...] Progress Notes * Radha Spangler NP - 06/10/2016 5:16 PM ESTQuick Note: Discussed at ov today documented in this encounter Plan of Treatment Not on file documented as of this encounter Goals Goal Patient Goal Type Associated Problems Recent Progress Patient-Stated? Author Blood Pressure < 140/90 Blood Pressure 120/73( 017 9:26 AM EDT) No Radha Spangler NP documented as of this encounter Procedures * Due to [place] state law, this organization might not be sharing negative HIV tests. Procedure Name Priority Date/Time Associated Diagnosis Comments ALANINE AMINOTRANSFERASE (ALT), SERUM Routine 06/09/2016 11:23 AM EST Hyperlipidemia, unspecified hyperlipidemia type LIPID PANEL WITH REFLEX TO DIRECT LDL Routine 06/09/2016 11:23 AM EST Hyperlipidemia, unspecified hyperlipidemia type BASIC METABOLIC PANEL WITH (GFR) Routine 06/09/2016 11:23 AM EST Essential hypertension with goal blood pressure less than 140/90 documented in this encounter Results * Due to [facility] law, this organization might not be sharing negative HIV tests. * (ABNORMAL) BASIC METABOLIC PANEL WITH (GFR) (06/09/2016 11:23 AM EST) Glucose 101(H) 65 - 99 mg/dL [facility] Comment:Fasting reference in terval Urea Nitrogen Blood (BUN) 41(H) 7 - 25 mg/dL [facility] Creatinine 1.34(H) 0.50 - 0.99 mg/dL [facility] Comment: For patients >49 years of age, the reference limit for Creatinine is approximately 13% higher for people identified as -Namibian. GFR 42(L) > OR = 60 mL/min/1. 73m2 [facility] GFR () 48(L) > OR = 60 mL/min/1. 73m2 [facility] BUN/Creatinine Ratio 31(H) 6 - 22 (calc) [facility] Sodium 139 135 - 146 mmol/L [facility] Potassium 4.6 3.5 - 5.3 mmol/L [facility] Chloride 105 98 - 110 mmol/L [facility] Carbon dioxide 24 20 - 31 mmol/L [facility] Calcium 9.5 8.6 - 10.4 mg/dL [facility] 06/09/2016 11:2 3 AM EST 06/09/2016 4:58 PM EST Narrative [facility] - 06/09/2016 7:58 PM EST Please note that this estimated GFR does [...] needs for GFR calculation. Resulting Agency Comment [id number] Radha Spangler NP LABORATORY Final Result Performing Organization Address [facility] Co de Phone Number [facility] [address] [place] [address] * ALANINE AMINOTRANSFERASE (ALT), SERUM (06/09/2016 11:23 AM EST) ALT (SGPT) 25 6 - 29 U/L [facility] 06/09/2016 11:2 3 AM EST 06/09/2016 4:58 PM EST Narrative Resulting Agency Comment [id number] Radha Spangler NP LAB SAME DAY RESULT Final Re sult Performing Organization Address [facility] de Phone Number [facility] [address] [place] [address] * (ABNORMAL) LIPID PANEL WITH REFLEX TO DIRECT LDL (06/09/2016 11:23 AM EST) Cholesterol 273(H) 125 - 200 mg/dL [facility] HDL Cholesterol 60 > OR = 46 mg/dL [facility] Triglyceride 339(H) <150 mg/dL [facility] LDL Cholesterol 145(H) <130 mg/dL (calc) [facility] Comment: Desirable range <100 mg/dL for patients with CHD or diabetes and <70 mg/dL for diabetic patients with known heart disease. CHOL/HDL Ratio 4.6 < OR = 5.0 (calc) [facility] Cholesterol Non-HDL 213(H) mg/dL (calc) [facility] Comment: Target for non-HDL cholesterol is 30 mg/dL higher than LDL cholesterol target. 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
--- OUTSIDE RECORDS SUMMARY | 2024-07-10 11:23 | XMS_ITS | Clinical Summary ---
Author Organization [facility] [employer] Address [address] [place] [address] Care Team Providers Care Vegetable Packer Name Role Phone Pcp, No Primary Care Provider [phone] Social History Tobacco Use Types Packs/Day Years Used Date Smoking Tobacco: Never Assessed Comments Unknown Sex and Gender Information Value Date Recorded Sex Assigned at Not on file Legal Sex Female 9:38 AM EDT Gender Identity Not on file Sexual Orientation Not on file Plan of Treatment Health Maintenance Due Date Last Done Comments Colorectal Cancer: COLONOSCO PY Screening every 10 yrs (or Modifier) 1950 Depression: Screening Annual ly using PHQ-2/9 in Adults 18 yrs or above (or HM Modifier)([facility]) 1969 Hepatitis C Virus Infection in Adolescents and Adults: Screening (or Modifier) ([facility]) 1969 SDOH Screening Reminder: Corry ivy for all adults ([facility]) 1969 Tobacco Smoking Cessation: i n Adults excluding Women: Behavioral and Pharmacotherapy Interventions ([facility]) 1969 DTaP/Tdap/Td Vaccines ([facility]) (1 - Tdap) 1970 Colorectal Cancer Screening 45 -75 Yrs (or HM Modifier ) 1996 Colorectal Cancer: FLEXIBLE SIGMOIDOSCOPY Screening every 5 yrs 1996 Colorectal Cancer: Fecal Imm unochemical Test (FIT) Annually [facility] 1996 Colorectal Cancer: High-sens itivity gFOBT Screening Annually [facility] 1996 Colorectal Cancer: Stool Col oguard Screening every 3 yrs 1996 Colorectal Cancer:CT Colonography Screening every 5 yr s 1996 Lipid Screening: Every 5 yrs for Women aged 45+ (or HM Modifier) ([facility]) 1997 Breast Cancer: Screening Corry ually age 50-74 yrs (or HM Modifier)([facility]) 2001 Zoster/Shingles Vaccine Seri es Screening: Adults aged 18+ yrs (or HM Modifiers)([facility]) (1 of 2) 2001 Osteoporosis Screening to Pr event Fractures: Women aged 65 years+ ([facility]) 2016 Pneumococcal Vaccination Scr eening: Patients 65+ yrs of age ([facility]) (1 of 1 - PCV) 2016 Flu Vaccination: Ages 65+: Y early High Dose Recommended (or Modifier)([facility]) 12/21/2023 COVID-19 Vaccine Screening: Initial Series and Booster Status ([facility]) ( - 2023-25 season) 2024 RSV Vaccines (1 - 1-dose 75+ series) 2026 [employer] Not on file Insurance Care Teams Vegetable Packer Relationship Specialty Start Date End Date Pcp, Mayte PCP - General Family Medicine 08/15/20
--- OUTSIDE RECORDS SUMMARY | 2024-07-10 11:23 | XMS_ITS | Encounter Summary ---
Author Organization [facility] Address [address] [place] [address] Care Team Providers Care Hydraulic Controls Technician Name Role Phone Brandyn Pagan MD Primary Care Provider Unavaila Radha Fink NP Unavailable Unavailable Unknown Pcp, Non [facility] Primary Care Provider Unava ilable Encounter Details Date Type Department Care Team (Late st Contact Info) Description 04/08/2016 Orders Only [facility] [address] [place] [address] Radha Spangler NP Social History Tobacco Use [...] Progress Notes * Radha Spangler NP - 04/11/2016 2:07 PM ESTQuick Note: Please let pt know that renal tests mildly elevated; has UTI (E coli)-please abx per UTI protocol cpk and lfts normal documented in this encounter Plan of Treatment Not on file documented as of this encounter Goals Goal Patient Goal Type Associated Problems Recent Progress Patient-Stated? Author Blood Pressure < 140/90 Blood Pressure 120/73( 017 9:26 AM EDT) Radha Zelaya NP documented as of this encounter Procedures * Due to [place] [employer] law, this organization might not be sharing negative HIV tests. Procedure Name Priority Date/Time Associated Diagnosis Comments CULTURE, URINE, ROUTINE Routine 04/08/2016 12:17 PM EST Dysuria Pelvic pain in female CREATINE KINASE (CK), SERUM Routine 04/08/2016 12:17 PM EST Myalgia Elevated CPK URINALYSIS, COMPLETE INCLUDES DIPSTICK AND MICROSCOPIC Routine 04/08/2016 12:17 PM EST Dysuria Pelvic pain in female HEPATIC FUNCTION PANEL (ALT,AST,ALK PH,BILI'S,TP,ALB) Routine 04/08/2016 12:17 PM EST Pale stool Elevated transaminase level BASIC METABOLIC PANEL WITH (GFR) Routine 04/08/2016 12:17 PM EST Essential hypertension with goal blood pressure less than 140/90 documented in this encounter Results * Due to [place] [employer] law, this organization might not be sharing negative HIV tests. * (ABNORMAL) CULTURE, URINE, ROUTINE (04/08/2016 12:17 PM EST) Bacteria culture (Urine) SEE NOTE(A) [facility] Comment: {CULTURE, URINE, ROUTINE {[id number]) ??CULTURE, URINE, ROUTINE ??MICRO NUMBER: ?[id number] ??TEST STATUS: ? FINAL ??SPECIMEN SOURCE: ?? URINE ??SPECIMEN QUALITY: ??ADEQUATE ??RESULT: ?Greater than 100,000 CFU/mL of Escherichia coli ?E.coli ?INT ?? VLADIMIR ?? AMOX/CLAVULANATE ? S ? <=2 ?? AMPICILLIN ? S ? 4 ?? AMP/SULBACTAM ?S ? 4 ?? CEFAZOLIN ?NR ?<=4 1 ?? CEFEPIME [...] to ?to confirm susceptibility to parenteral cefazolin. 04/08/2016 12:1 7 PM EST 04/08/2016 7:00 PM EST Narrative Resulting Agency Comment [id number] Radha Spangler NP LABORATORY Final Result [facility] [address] [place] [address] * (ABNORMAL) URINALYSIS, COMPLETE INCLUDES DIPSTICK AND MICROSCOPIC (04/08/2016 12:17 PM EST) Color (Urine) YELLOW YELLOW [facility] Comment:{COLOR {[id number]) Appearance (Urine) CLEAR CLEAR [facility] Comment:{APPEARANCE {[id number]) Specific gravity (Urine) 1.019 1.001 - 1.035 [facility] Comment:{SPECIFIC GRAVITY {[id number]) pH (Urine) 6.5 5.0 - 8.0 [facility] Comment:{PH {[id number]) Glucose (Urine) NEGATIVE NEGATIVE [facility] Comment:{GLUCOSE {[id number]) Bilirubin (Urine) NEGATIVE NEGATIVE [facility] Comment:{BILIRUBIN {[id number]) Ketones (Urine) NEGATIVE NEGATIVE [facility] Comment:{KETONES {[id number]) Hemoglobin (Urine) NEGATIVE NEGATIVE [facility] Comment:{OCCULT BLOOD {[id number]) Protein (Urine) NEGATIVE NEGATIVE [facility] Comment:{PROTEIN {[id number]) Nitrite (Urine) NEGATIVE NEGATIVE [facility] Comment:{NITRITE {[id number]) Leukocyte esterase (Urine) TRACE(A) NEGATIVE [facility] Comment:{LEUKOCYTE ESTERASE {[id number]) WBC (Urine) 0-5 < OR = 5 /HPF [facility] Comment:{WBC {[id number]) RBC (Urine Sed) NONE SEEN < OR = 2 /HPF [facility] Comment:{RBC {[id number]) Epithelial cells.squamous (Urine sed) 0-5 < OR = 5 /HPF [facility] Comment:{SQUAMOUS EPITHELIAL CELLS {[id number]) Bacteria (Urine) NONE SEEN NONE SEEN /HPF [facility] Comment:{BACTERIA {[id number]) Hyaline casts (Urine sed) NONE SEEN NONE SEEN /LPF [facility] Comment:{HYALINE CAST {[id number]) 04/08/2016 12:1 7 PM EST 04/08/2016 7:00 PM EST Narrative Resulting Agency Comment [id number] Radha Spangler PERITONEAL DIALYSIS REGISTERED NURSE LAB SAME DAY RESULT Final Re sult [facility] [address] [place] [address] * HEPATIC FUNCTION PANEL (ALT,AST,ALK PH,BILI'S,TP,ALB) (04/08/2016 12:17 PM EST) Protein Total (Serum) 6.1 6.1 - 8.1 g/dL [facility] Comment:{PROTEIN, TOTAL {[id number]) Albumin 4.2 3.6 - 5.1 g/dL [facility] Comment:{ALBUMIN {[id number]) Globulin 1.9 1.9 - 3.7 g/dL (calc) [facility] Comment:{GLOBULIN {[id number]) Albumin/Globulin 2.2 1.0 - 2.5 (calc) [facility] Comment:{ALBUMIN/GLOBULIN RA LANA {[id number]) Bilirubin Total 0.3 0.2 - 1.2 mg/dL [facility] Comment:{BILIRUBIN, TOTAL {[id number]) Bilirubin Direct 0.1 < OR = 0.2 mg/dL [facility] Comment:{BILIRUBIN, DIRECT { [id number]) Bilirubin Indirect 0.2 0.2 - 1.2 mg/dL (calc) [facility] Comment:{BILIRUBIN, INDIRECT {[id number]) Alkaline phosphatase 111 33 - 130 U/L [facility] Comment:{ALKALINE PHOSPHATAS E {[id number]) AST (SGOT) 21 10 - 35 U/L [facility] Comment:{AST {[id number]) ALT (SGPT) 22 6 - 29 U/L [facility] Comment:{ALT {[id number]) 04/08/2016 12:1 7 PM EST 04/08/2016 7:00 PM EST Narrative Resulting Agency Comment [id number] Radha Spangler NP LABORATORY Final Result Performing Organization Address City/[facility]/ZIP Co de Phone Number [facility] [address] [place] [address] * CREATINE KINASE (CK), SERUM (04/08/2016 12:17 PM EST) CPK 133 29 - 143 U/L [facility] Comment:{CREATINE KINASE, TO KENZIE {[id number]) 04/08/2016 12:1 7 PM EST 04/08/2016 7:00 PM EST Narrative Resulting Agency Comment [id number] Radha Spangler NP LAB SAME DAY RESULT Final Re sult Performing Organization Address City/[facility]/ZIP Co de Phone Number [facility] [address] [place] [address] * (ABNORMAL) BASIC METABOLIC PANEL WITH (GFR) (04/08/2016 12:17 PM EST) Glucose 101(H) 65 - 99 mg/dL [facility] Comment: {GLUCOSE {[id number]) ? Fasting reference interval Urea Nitrogen Blood (BUN) 37(H) 7 - 25 mg/dL [facility] Comment:{UREA NITROGEN (BUN) {[id number]) Creatinine 1.13(H) 0.50 - 0.99 mg/dL [facility] Comment: {CREATININE {[id number]) For patients >49 years of age, the reference limit for Creatinine is approximately 13% higher for people identified as -Ukrainian. GFR 51(L) > OR = 60 mL/min/1. 73m2 [facility] Comment:{eGFR NON-AFR. AMERI CAN {[id number]) GFR () 59(L) > OR = 60 mL/min/1. 73m2 [facility] Comment:{eGFR AMERIC AN {[id number]) BUN/Creatinine Ratio 33(H) 6 - 22 (calc) [facility] Comment:{BUN/CREATININE RATI O {[id number]) Sodium 139 135 - 146 mmol/L [facility] Comment:{SODIUM {[id number]) Potassium 5.1 3.5 - 5.3 mmol/L [facility] Comment:{POTASSIUM {[id number]) Chloride 105 98 - 110 mmol/L [facility] Comment:{CHLORIDE {[id number]) Carbon dioxide 25 20 - 31 mmol/L [facility] Comment:{CARBON DIOXIDE {[id number]) Calcium 9.4 8.6 - 10.4 mg/dL [facility] Comment:{CALCIUM {[id number]) 04/08/2016 12:1 7 PM EST 04/08/2016 7:00 PM EST Narrative [facility] - 04/08/2016 8:32 PM EST Please note that this estimated [...] needs for GFR calculation. Resulting Agency Comment [id number] Radha Spangler NP LABORATORY Final Result [facility] [address] [place] [address] documented in this encounter Visit Diagnoses Diagnosis Essential hypertension with goal blood pressure less than 140/90 Myalgia Mylagia and myositis, unspecified Elevated CPK Other nonspecific abnormal serum enzyme levels Pale stool Abnormal feces Elevated transaminase level Nonspecific elevation of levels of transaminase or lactic acid dehydrogenase (LDH) Dysuria Pelvic pain in female Unspecified symptom associated with female genital organs documented in this encounter Care Teams Hydraulic Controls Technician Relationship Specialty Start Date End Date Brandyn Pagan MD PCP - General Internal Medicine 08/07/15 02/02/17 Radha Spangler NP PCP - Backup PCP Internal Medicine 01/11/16 02/02/17 Unknown Pcp, Non [facility] PCP - General 02/03/17 documented as of this encounter
--- OUTSIDE RECORDS SUMMARY | 2024-07-10 11:23 | XMS_ITS | Clinical Summary ---
Author Organization [facility] Address [address] [place] [address] Care Team Providers Care Pearler Name Role Phone Unknown Pcp, Non [facility]mg Primary Care Provider Unava ilable Allergies Active Allergy Reactions Criticality Noted Date Comments Atorvastatin 12/26/2015 Muscle Cramping Medications * This document contains information received from the source organization and may not represent a complete record from that organization. Multiple Vitamin (MULTI VITAMIN DAILY) Tab 1 TABLET DAILY Acti ve Omeprazole 20 MG Tablet Delayed ResponseIndicati ons:Gastroesopha geal reflux disease, esophagitis presence not specified,Dyspha modesto, unspecified type 1 TABLET twice daily 30 min before breakfast and dinner 60 Tab 3 6 Active AmLODIPine Besylate (NORVASC) 5 MG Tab 1 TABLET DAILY Activ e Acetaminophen (TYLENOL) 500 MG Tab 1 TABLET DAILY as needed Active Ibuprofen 800 MG Tab 1 TABLET DAILY as needed Active Gabapentin 300 MG Cap 1 CAPSULE 2 TIMES DAILY Active Amphetamine-Dext roamphetamine 10 MG CAPSULE SR 24 HR 1 CAPSULES EVERY MORNING 28 Cap 7 Active Gabapentin 100 MG Cap 3 tabs bid 150 Cap 7 Active Diclofenac-Misop rostol 75-0.2 MG Tablet Delayed Response 1 TABLET 2 TIMES DAILY AFTER MEALS 60 Tab 2 7 Active Active Problems Problem Noted Date Diagnosed Date S/P hip replacement 01/18/2017 Overview (01/18/2017): 2013 Dr Jones at [facility] Obesity 12/21/2016 CKD (chronic kidney disease), stage III 12/22/19 17 Fallen bladder 10/06/2016 Overview (03/18/2021): reapir 2000 Dr Chris Saucedo Urogyn eval August 2016 09/26/2016: Surgical procedure Dr. Philip Rees: 1. Posterior colporrhaphy. 2. Perineorrhaphy. 3. Enterocele repair. 4. Cystourethroscopy. History of CVA (cerebrovascular accident) 2016 Overview (02/03/2017): By Ct head 08/05 Rt frontal - old Patient's cholesterol levels are mildly elevated, however she is not a good candidate for statin therapy because developed myalgias that were moderate to severe with them as well as Zetia. Attempted prescription at [facility] but PA was denied. 12/12/2016: Discussed again trying prescription for WelChol given new diagnosis of old CVA, however patient is planning on moving to [place] in the next few weeks. She does not want to try the prescription. She is going to try losing weight and adhering to a stricter low carbohydrate, low saturated fat diet. Rectocele 09/12/2016 Overview (12/21/2016): 09/26/[address] Philip Rees: 1. Posterior colporrhaphy. 2. Perineorrhaphy. 3. Enterocele repair. 4. Cystourethroscopy. Voiding dysfunction 09/12/2016 Elevated transaminase level 06/10/2016 Nodule of right lung 03/20/2016 Overview (03/20/2016): 02/10/2016 CT chest w/o contrast for lung cancer screen showed stable groundglass opacities (when compared with previous ct scan from [facility], but NEW lung nodule R middle lobe 2 mm. Will f/u with screen CT in 1 year HTN 11/02/2015 Cervical spondylosis with radiculopathy 11/02/19 16 Flat foot (pes planus) (acquired), left foot Psoriasis 11/02/2015 Major depression in partial remission 11/02/2015 Overview (12/21/2016): Refer to PCP cpe dated 01/11/16 Psych: Reports anxiety and depression are stable. Sees Dr. Alvarado psychiatrist, in [place]. He prescribes lamotrigine, duloxetine, tramadol, Adderall. 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 Irene Christensen in [place]. Confirmed with their office that she is status post total hysterectomy in 1999 for reasons of pelvic organ prolapse. They have elected to do Pap smears anyway, as recently as 06/05/2014 which was negative. History of gastric ulcer 11/02/2015 Hyperlipidemia 10/08/2015 Overview (01/27/2017): Total and ldl remain elevated. Unable to tolerate statins (tried atorvastatin and pravastatin) and zetia. Developed myalgias. The 10-year ASCVD risk score (Beth SUNDEEP Jr., et al., 2013) is: 6.8% Will try Welchol 3.75 gm daily with meal. Recheck lipids in 3 mos-KLE 08/05 The 10-year ASCVD risk score (Bteh SUNDEEP Mejia, et al., 2013) is: 6.1% Unfortunately Welchol denied by insurance. Attempted PA but denied. 07/2016 CTA incidentally found evidence of old CVA. Lipid-lowering and essential to decrease risk of recurrence. 12/12/2016 follow-up OV: Discussed again. Patient does not want to retry statin or Zetia. The 10-year ASCVD risk score (Beth SUNDEEP Mejia, et al., 2013) is: 6.7% GERD (gastroesophageal reflux disease) 6 Overview (08/07/2015): CLAIMS HAD ULCER , HX Resolved Problems Problem Noted Date Diagnosed Date Resolved Date Self-catheterizes urinary bladder 11/13/2015 06/10/2016 Overview (11/13/2015): X 1 year Doing 2 to 1 times a day Immunizations Name Administration Dates Next Due Influenza,injectable,quad,Prsrv Fr 03/11/2016 Tdap 01/11/2016 Zoster (Zostavax) 01/11/2016 Family History Medical History Relation Name Comments Stroke Father Stroke Mother Relation Name Status Comments Father Mother Social History Tobacco Use Types Packs/Day Years Used Date Smoking Tobacco: Former Cigarettes 1 40 0 11/02/1967 - 11/02/2007 Smokeless Tobacco: Never Tobacco Cessation:Counseling Given: No Alcohol Use Standard Drinks/Week Comments Yes 0 (1 standard drink = 0.6 oz pur e alcohol) socially Comments No Sex and Gender Information Value Date Recorded Sex Assigned at Not on file Legal Sex Female 12:00 AM EDT Gender Identity Not on file Sexual Orientation Not on file Last Filed Vital Signs Vital Sign Reading Time Taken Comments Blood Pressure 120/73 01/27/2017 9:26 AM EDT Pulse 71 01/27/2017 9:26 AM EDT Temperature 37.1 ??C (98.8 ??F) 01/19/2017 10:41 AM E DT Respiratory Rate 18 10/21/2016 4:42 PM EDT Oxygen Saturation 98% 10/21/2016 4:42 PM EDT Inhaled Oxygen Concentration - - Weight 114 kg (250 lb 12.8 oz) 01/27/2017 9:26 A M EDT Height 168.9 cm (5' 6.5 ) 01/27/2017 9:26 AM EDT Body Mass Index 39.87 01/27/2017 9:26 AM EDT Plan of Treatment Health Maintenance Due Date Last Done Comments Hepatitis C Screening 1950 Pneumococcal 50+ years (1 of 1 - PCV) 2001 Mammogram/Breast Imaging 06/05/2015 015, 06/03/2013 Zoster (Shingrix) (2 of 3) 03/07/2016 01/11/2016 COVID-19 Vaccine (1 - 2023-2 5 season) 2024 Influenza (#1) 2024 03/11/2016 DTaP/Tdap/Td (2 - Td or Tdap) 01/10/2026 01/11/2016 RSV (1 - 1-dose 75+ series) 2026 Bone Density Completed 01/27/2014 Pap Smear Discontinued 06/05/2014 Zoster (Zostavax) Discontinued 01/11/2016 HPV Vaccine Aged Out No longer eligi ble based on patient's age to complete this topic Hep A Aged Out No longer eligi ble based on patient's age to complete this topic Hep B Aged Out No longer eligi ble based on patient's age to complete this topic Hib Aged Out No longer eligi ble based on patient's age to complete this topic Meningococcal ACWY Aged Out No longer eligible based on patient's age to complete this topic Goals Goal Patient Goal Type Associated Problems Recent Progress Patient-Stated? Author Blood Pressure < 140/90 Blood Pressure 120/73( 017 9:26 AM EDT) No Radha Spangler NP Procedures * Due to [place] [employer] law, this organization might not be sharing negative HIV tests. Procedure Name Priority Date/Time Associated Diagnosis Comments MAMMOGRAPHY-BILATERAL 06/05/2014 PAP SMEAR 06/05/2014 from Last 3 Months or Most Recently Relevant to Health Maintenance Results * Due to [place] [employer] law, this organization might not be sharing negative HIV tests. * PAP SMEAR (06/05/2014) Narrative Transcriptions Amol Jon - 01/29/2016 12:00 AM EDT Amol Jon PATHOLOGY Final Result * MAMMOGRAPHY-BILATERAL (06/05/2014) 06/05/2014 Narrative Transcriptions Amol Jon - 01/29/2016 12:00 AM EDT us Amol Jon GENERAL IMAGING- OTHER Final Res ult from Last 3 Months or Most Recently Relevant to Health Maintenance Advance Directives Documents on File Type Date Recorded Patient Insurance Analyst Expl anation Advance Directives and Living Will 03/11/2016 Care Teams Pearler Relationship Specialty Start Date End Date Unknown Pcp, Non Rmg PCP - General 02/03/17
--- OUTSIDE RECORDS SUMMARY | 2024-07-10 11:23 | XMS_ITS | Encounter Summary ---
Author Organization [facility] Address [address] [place] [address] Care Team Providers Care Supplier Manager Name Role Phone Brandyn Pagan MD Primary Care Provider Radha Cuevas NP Unavailable Unavailable Unknown Pcp, Non Rmg Primary Care Provider Unava ilable Reason for Visit * Reason Comments ER F/U Encounter Details Date Type Department Care Team (Late st Contact Info) Description 07/29/2016 [facility] Internal Medicine [address] [place] [id number] Brandyn Pagan MD ER F/U Social History Tobacco Use Types Packs/Day Years [...] encounter Miscellaneous Notes * Telephone Encounter - Paige Dale - 07/29/2016 9:47 AM EST All information obtained and given to * Telephone Encounter - Melissa Tom - 07/29/2016 9:02 AM EST Plan/disposition: Patient was admitted to hospital. FYI sent to PCP. Has patient made any non [facility] specialty/consult follow up appointments? No Referral to Care Management/Disease Management: not needed Chief Complaint: Genie Vora 66 y.o. female was assessed following an Emergency Department visit. ED location: [facility] ER Date of ED Visit: 07-26-16 Time of Day of ED Registration: 9PM-8AM Was The Injury Work Related: No She was hospitalized following this ED visit. Clinical Reason for ED Visit: Headache and Urinary Tract problem/Kidney failure/obstruction/stone/hematuria/UTI Referral Reason for ED Visit: Patient went to the ED without calling or being seen. Testing done during ED visit: EKG, blood work and urine Treatment completed during ED Visit: IV Fluids, Pain Medication:Morphine and Antibiotics:Ceftazidine documented in this encounter Plan of Treatment Not on file documented as of this encounter Goals Goal Patient Goal Type Associated Problems Recent Progress Patient-Stated? Author Blood Pressure < 140/90 Blood Pressure 120/73( 017 9:26 AM EDT) No Radha Spangler NP documented as of this encounter Visit Diagnoses Not on filedocumented in this encounter Care Teams Supplier Manager Relationship Specialty Start Date End Date Brandyn Pagan MD PCP - General Internal Medicine 08/07/15 02/02/17 Radha Spangler NP PCP - Backup PCP Internal Medicine 01/11/16 02/02/17 Unknown Pcp, Non Rmg PCP - General 02/03/17 documented as of this encounter
--- OUTSIDE RECORDS SUMMARY | 2024-07-10 11:23 | XMS_ITS | Encounter Summary ---
Author Organization [facility] Address [address] [place] [address] Care Team Providers Care Fortune Cookie Maker Name Role Phone Brandyn Pagan MD Primary Care Provider UnavailRadha Mas NP Unavailable Unavailable Unknown Pcp, Non Rmg Primary Care Provider Unava ilable Encounter Details Date Type Department Care Team (Late st Contact Info) Description 03/09/2016 Orders Only [facility] [address] [place] [phone] Brandyn Pagan MD Social History Tobacco Use [...] Progress Notes * Sol Gonzales MA - 03/11/2016 11:49 AM EDTQuick Note: Letter sent * Cindy Clements LPN - 03/11/2016 8:20 AM EDTQuick Note: To BRITTA please send letter The results of this test are normal/ stable and/or acceptable notify patient - there is no need to make any changes in approach - as always if the patient has any questions/problems please let me know - * Brandyn Pagan - 03/11/2016 7:46 AM EDTLuis Miguel Note: The results of this test are normal/ stable and/or acceptable notify patient - there is no need to make any changes in approach - as always if the patient has any questions/problems please let me know - documented in this encounter Plan of Treatment Not on file documented as of this encounter Goals Goal Patient Goal Type Associated Problems Recent Progress Patient-Stated? Author Blood Pressure < 140/90 Blood Pressure 120/73( 017 9:26 AM EDT) No Radha Spangler, MEY documented as of this encounter Procedures * Due to [place] [employer] law, this organization might not be sharing negative HIV tests. Procedure Name Priority Date/Time Associated Diagnosis Comments CLOSTRIDIUM DIFFICILE TOXIN/GDH WITH REFLEX TO PCR Routine 03/09/2016 12:41 PM EDT Diarrhea, unspecified type documented in this encounter Results * Due to [place] [employer] law, this organization might not be sharing negative HIV tests. * CLOSTRIDIUM DIFFICILE TOXIN/GDH WITH REFLEX TO PCR (03/09/2016 12:41 PM EDT) Clostridium Difficile (Stool) SEE NOTE [facility] Comment: {CLOSTRIDIUM DIFFICILE TOXIN/GDH W/REFL TO PCR {[id number]) ??CLOSTRIDIUM DIFFICILE TOXIN/GDH W/REFL TO PCR ??MICRO NUMBER: ?[id number] ??TEST STATUS: ? FINAL ??SPECIMEN SOURCE: ?? STOOL ??SPECIMEN QUALITY: ??ADEQUATE ??GDH ANTIGEN: ? Not Detected ??TOXIN A AND B: ? Not Detected ??COMMENT: ? No toxigenic C. difficile detected 03/09/2016 12:4 1 PM EDT 03/09/2016 7:22 PM EDT Narrative Resulting Agency Comment [id number] Brandyn Pagan MD LABORATORY Final Result [facility] [address] [place] [address] documented in this encounter Visit Diagnoses Diagnosis Diarrhea, unspecified type documented in this encounter Care Teams Fortune Cookie Maker Relationship Specialty Start Date End Date Brandyn Pagan MD PCP - General Internal Medicine 08/07/15 02/02/17 Radha Spangler NP PCP - Backup PCP Internal Medicine 01/11/16 02/02/17 Unknown Pcp, Non Rmg PCP - General 02/03/17 documented as of this encounter
--- OUTSIDE RECORDS SUMMARY | 2024-07-10 11:23 | XMS_ITS | Encounter Summary ---
Author Organization [facility] Address [address] [place] [address] Care Team Providers Care Short Haul Driver Name Role Phone Brandyn Pagan MD Primary Care Provider Unavaila Radha Fink NP Unavailable Unavailable Unknown Pcp, Non Rmg Primary Care Provider Unava ilable Encounter Details Date Type Department Care Team (Late st Contact Info) Description 09/21/2016 Orders Only [facility] Pre-Admission Testing [address] [facility] [address] [place] [address] Filiberto May MD [address] [place] [address] Social History Tobacco Use Types Packs/Day Years [...] of this encounter Procedures * Due to [place] state law, this organization might not be sharing negative HIV tests. Procedure Name Priority Date/Time Associated Diagnosis Comments BASIC METABOLIC PANEL WITH (GFR) Routine 09/21/2016 1:41 PM EDT BILLIE (obstructive sleep apnea) documented in this encounter Results * Due to [place] state law, this organization might not be sharing negative HIV tests. * (ABNORMAL) BASIC METABOLIC PANEL WITH (GFR) (09/21/2016 1:41 PM EDT) Glucose 77 65 - 99 mg/dL [facility] Comment:Fasting reference in terval Urea Nitrogen Blood (BUN) 25 7 - 25 mg/dL [facility] Creatinine 1.15(H) 0.50 - 0.99 mg/dL [facility] Comment: For patients >49 years of age, the reference limit for Creatinine is approximately 13% higher for people identified as -Maced[place]. GFR 50(L) > OR = 60 mL/min/1. 73m2 [facility] GFR () 58(L) > OR = 60 mL/min/1. 73m2 [facility] BUN/Creatinine Ratio 22 6 - 22 (calc) [facility] Sodium 144 135 - 146 mmol/L [facility] Potassium 4.4 3.5 - 5.3 mmol/L [facility] Chloride 109 98 - 110 mmol/L [facility] Carbon dioxide 25 20 - 31 mmol/L [facility] Calcium 9.2 8.6 - 10.4 mg/dL [facility] 09/21/2016 1:41 PM EDT 09/21/2016 6:17 PM EDT Narrative [facility] - 09/21/2016 9:29 PM EDT Please note that this estimated [...] needs for GFR calculation. Resulting Agency Comment [id number] us Filiberto May MD LABORATORY Final Result [facility] [address] [place] [address] documented in this encounter Visit Diagnoses Diagnosis BILLIE (obstructive sleep apnea) Obstructive sleep apnea (adult) (pediatric) documented in this encounter Care Teams Short Haul Driver Relationship Specialty Start Date End Date Brandyn Pagan MD PCP - General Internal Medicine 08/07/15 02/02/17 Radha Spangler NP PCP - Backup PCP Internal Medicine 01/11/16 02/02/17 Unknown Pcp, Non [facility] PCP - General 02/03/17 documented as of this encounter
--- OUTSIDE RECORDS SUMMARY | 2024-07-10 11:23 | XMS_ITS | Encounter Summary ---
Author Organization [facility] Address [address] [place] [address] Care Team Providers Care Compliance Representative Dealer Name Role Phone Brandyn Pagan MD Primary Care Provider Radha Cuevas NP Unavailable Unavailable Unknown Pcp, Non Rmg Primary Care Provider Unava ilable Encounter Details Date Type Department Care Team (Late st Contact Info) Description 06/21/2016 Orders Only [facility] [address] [place] [address] Brandyn Pagan MD Social History Tobacco Use [...] encounter Progress Notes * Mary Nguyen - 06/23/2016 9:54 AM ESTQuick Note: Letter sent * Stephanie Mckeon - 06/23/2016 8:51 AM ESTQuick Note: Letter normal urine test no infection * Brandyn Pagan - 06/23/2016 8:48 AM ESTQuick Note: The results of this test are normal/ stable and/or acceptable notify patient - there is no need to make any changes in approach - as always if the patient has any questions/problems please let me know - * Brandyn Pagan - 06/21/2016 4:39 PM ESTQuick Note: The results of this test are [...] of this encounter Procedures * Due to [place] [employer] law, this organization might not be sharing negative HIV tests. Procedure Name Priority Date/Time Associated Diagnosis Comments URINALYSIS, DIP ONLY STAT (All results called to provider) 06/21/2016 11:17 AM EST Frequent urination CULTURE, URINE, ROUTINE Routine 06/21/2016 10:35 AM EST Frequent urination URINALYSIS, MICROSCOPIC Routine 06/21/2016 10:35 AM EST Frequent urination documented in this encounter Results * Due to [place] [employer] law, this organization might not be sharing negative HIV tests. * URINALYSIS, DIP ONLY ( SITE STAT ONLY) (06/21/2016 11:17 AM EST) COLOR (URINE) YELLOW [facility] (CLIA# [id number]) APPEARANCE (URINE) CLEAR Clear [facility] (CLIA# [id number]) SPECIFIC GRAVITY 1.020 1.001 - 1.035 [facility] (CLIA# [id number]) PH (URINE) 6.0 5.0 - 8.0 [facility] (CLIA# [id number]) PROTEIN (URINE) NEGATIVE Neg [facility] (CLIA# [id number]) GLUCOSE (URINE) NEGATIVE Neg [facility] (CLIA# [id number]) Ketones (Urine) NEGATIVE Neg [facility] (CLIA# [id number]) BILIRUBIN (URINE) NEGATIVE Neg [facility] (CLIA# [id number]) BLOOD (URINE) NEGATIVE Neg [facility] (CLIA# [id number]) Leukocyte esterase (Urine) NEGATIVE Neg [facility] (CLIA# [id number]) NITRITE (URINE) NEGATIVE Neg [facility] (CLIA# [id number]) Urine specimen (specimen) 06/21/2016 11:17 AM EST Narrative [facility] (CLIA# [id number]) - 06/21/2016 11:17 AM EST Micro and culture already ordered by provider. us Brandyn Pagan MD LAB SAME DAY RESULT Final Resul t [facility] (CLIA# [id number]) [address] [place] [address] * CULTURE, URINE, ROUTINE (06/21/2016 10:35 AM EST) Bacteria culture (Urine) SEE NOTE [facility] Comment: ??CULTURE, URINE, ROUTINE ??MICRO NUMBER: ?[id number] ??TEST STATUS: ? FINAL ??SPECIMEN SOURCE: ?? URINE ??SPECIMEN QUALITY: ??ADEQUATE ??RESULT: ?Multiple organisms present, each less than 10,000 ? CFU/mL. These organisms, commonly found on ? external and internal genitalia, are considered ? to be colonizers. No further testing performed. 06/21/2016 10:3 5 AM EST 06/21/2016 4:50 PM EST Narrative Resulting Agency Comment [id number] Brandyn Pagan MD LABORATORY Final Result Performing Organization Address [facility] Phone Number [facility] [address] [place] [address] * URINALYSIS, MICROSCOPIC (06/21/2016 10:35 AM EST) WBC (Urine) NONE SEEN < OR = 5 /HPF [facility] RBC (Urine Sed) NONE SEEN < OR = 2 /HPF [facility] Epithelial cells.squamous (Urine sed) NONE SEEN < OR = 5 /HPF [facility] Bacteria (Urine) NONE SEEN NONE SEEN /HPF [facility] Hyaline casts (Urine sed) NONE SEEN NONE SEEN /LPF [facility] 06/21/2016 10:3 5 AM EST 06/21/2016 4:50 PM EST Narrative Resulting Agency Comment [id number] Brandyn Pagan MD LAB SAME DAY RESULT Final Resul t Performing Organization Address [facility] Phone Number [facility] [address] [place] [address] documented in this encounter Visit Diagnoses Diagnosis Frequent urination Urinary frequency documented in this encounter Care Teams Compliance Representative Dealer Relationship Specialty Start Date End Date Brandyn Pagan MD PCP - General Internal Medicine 08/07/15 02/02/17 Radha Spangler NP PCP - Backup PCP Internal Medicine 01/11/16 02/02/17 Unknown Pcp, Non [facility] PCP - General 02/03/17 documented as of this encounter
--- OUTSIDE RECORDS SUMMARY | 2024-07-10 11:23 | XMS_ITS | Encounter Summary ---
Author Organization [facility] Address [address] [place] [address] Care Team Providers Care Dance Entertainer Name Role Phone Brandyn Pagan MD Primary Care Provider Unavaila Radha Fink NP Unavailable Unavailable Unknown Pcp, Non [facility] Primary Care Provider Unava ilable Encounter Details Date Type Department Care Team (Late st Contact Info) Description 02/19/2016 Orders Only [facility] [address] [place] [address] Brandyn Pagan MD Social History Tobacco Use [...] encounter Progress Notes * Brandyn Pagan - 02/22/2016 8:55 PM EDTQuick Note: Pyuria no hematuria + c/s Treated as long as the pt is asymptomatic [...] encounter Procedures * Due to [place] [employer] law, this organization might not be sharing negative HIV tests. Procedure Name Priority Date/Time Associated Diagnosis Comments URINALYSIS, DIP ONLY STAT (All results called to provider) 02/19/2016 2:13 PM EDT Urinary tract infection, site unspecified CULTURE, URINE, ROUTINE Routine 02/19/2016 2:00 PM EDT Urinary tract infection, site unspecified URINALYSIS, MICROSCOPIC Routine 02/19/2016 2:00 PM EDT Urinary tract infection, site unspecified documented in this encounter Results * Due to [place] [employer] law, this organization might not be sharing negative HIV tests. * (ABNORMAL) URINALYSIS, DIP ONLY ( SITE STAT ONLY) (02/19/2016 2:13 PM EDT) COLOR (URINE) Yellow [facility] (CLIA# [id number]) APPEARANCE (URINE) Cloudy [facility] (CLIA# [id number]) SPECIFIC GRAVITY 1.010 1.001 - 1.035 [facility] (CLIA# [id number]) PH (URINE) 7.5 5.0 - 8.0 [facility] (CLIA# [id number]) PROTEIN (URINE) Trace(A) Neg [facility] (CLIA# [id number]) GLUCOSE (URINE) Negative Neg [facility] (CLIA# [id number]) Ketones (Urine) Negative Neg [facility] (CLIA# [id number]) BILIRUBIN (URINE) Negative Neg [facility] (CLIA# [id number]) BLOOD (URINE) Negative Neg [facility] (CLIA# [id number]) Leukocyte esterase (Urine) 2+(A) [facility] (CLIA# [id number]) NITRITE (URINE) Negative Neg [facility] (CLIA# [id number]) Urine specimen obtained by clean catch procedure (specimen) 02/19/2016 2:13 PM EDT Narrative [facility] (CLIA# [id number]) - 02/19/2016 2:14 PM EDT Micro and culture already ordered per provider. us Brandyn Pagan MD LAB SAME DAY RESULT Final Resul t [facility] (CLIA# [id number]) [address] [place] [address] * (ABNORMAL) CULTURE, URINE, ROUTINE (02/19/2016 2:00 PM EDT) Bacteria culture (Urine) SEE NOTE(A) [facility] Comment: {CULTURE, URINE, ROUTINE {[id number]) ??CULTURE, URINE, ROUTINE ??MICRO NUMBER: ?[id number] ??TEST STATUS: ? FINAL ??SPECIMEN SOURCE: ?? URINE ??SPECIMEN QUALITY: ??ADEQUATE ??RESULT: ?50,000-100,000 CFU/mL of Escherichia coli ? Greater than 100,000 CFU/mL of ? Staphylococcus saprophyticus ? The Clinical Laboratory Standards [place] (M100 ? guidelines), does not advise routine ? susceptibility testing of urine isolates of ? S.saprophyticus because infections respond to ? urinary concentrations of agents commonly used to ? treat acute, uncomplicated UTI such as ? Nitrofurantoin, Trimethoprim-sulfamethoxazole or ? a fluoroquinolone. ?E.coli ?INT ?? VLADIMIR ?? AMOX/CLAVULANATE ? [...] to ?to confirm susceptibility to parenteral cefazolin. 02/19/2016 2:00 PM EDT 02/19/2016 7:35 PM EDT Narrative Resulting Agency Comment [id number] Brandyn Pagan MD LABORATORY Final Result [facility] [address] [place] [address] * (ABNORMAL) URINALYSIS, MICROSCOPIC (02/19/2016 2:00 PM EDT) WBC (Urine) 20-40(A) < OR = 5 /HPF [facility] Comment:{WBC {[id number]) RBC (Urine Sed) NONE SEEN < OR = 2 /HPF [facility] Comment:{RBC {[id number]) Epithelial cells.squamous (Urine sed) NONE SEEN < OR = 5 /HPF [facility] Comment:{SQUAMOUS EPITHELIAL CELLS {[id number]) Bacteria (Urine) FEW(A) NONE SEEN /HPF [facility] Comment:{BACTERIA {[id number]) Hyaline casts (Urine sed) NONE SEEN NONE SEEN /LPF [facility] Comment:{HYALINE CAST {[id number]) 02/19/2016 2:00 PM EDT 02/19/2016 7:35 PM EDT Narrative Resulting Agency Comment [id number] us Brandyn Pagan MD LAB SAME DAY RESULT Final Resul t Performing Organization Address City/State/[facility] Co de Phone Number [facility] [address] [place] [address] documented in this encounter Visit Diagnoses Diagnosis Urinary tract infection, site unspecified documented in this encounter Care Teams Dance Entertainer Relationship Specialty Start Date End Date Brandyn Pagan MD PCP - General Internal Medicine 08/07/15 02/02/17 Radha Spangler NP PCP - Backup PCP Internal Medicine 01/11/16 02/02/17 Unknown Pcp, Non [facility] PCP - General 02/03/17 documented as of this encounter
--- OUTSIDE RECORDS SUMMARY | 2024-07-10 11:23 | XMS_ITS | Encounter Summary ---
Author Organization [facility] Address [address] [place] [address] Care Team Providers Care Appliance Parts Counter Clerk Name Role Phone Brandyn Pagan MD Primary Care Provider Radha Cuevas NP Unavailable Unavailable Unknown Pcp, Non [facility] Primary Care Provider Unava ilable Encounter Details Date Type Department Care Team (Late st Contact Info) Description 09/09/2016 Orders Only [facility] [address] [place] [address] Brandyn Pagan MD Social History Tobacco Use [...] Progress Notes * Sol Gonzales MA - 09/15/2016 5:38 PM EDT Letter sent * Brandyn Pagan - 09/15/2016 4:43 PM EDT The results of this test are normal/ [...] this encounter Procedures * Due to [place] [employer] law, this organization might not be sharing negative HIV tests. Procedure Name Priority Date/Time Associated Diagnosis Comments URINALYSIS, DIP ONLY STAT (All results called to provider) 09/09/2016 12:32 PM EDT Frequency of urination CULTURE, URINE, ROUTINE Routine 09/09/2016 12:28 PM EDT Frequency of urination URINALYSIS, MICROSCOPIC Routine 09/09/2016 12:28 PM EDT Frequency of urination documented in this encounter Results * Due to [place] [employer] law, this organization might not be sharing negative HIV tests. * URINALYSIS, DIP ONLY ( SITE STAT ONLY) (09/09/2016 12:32 PM EDT) COLOR (URINE) Yellow [facility] (CLIA# [id number]) APPEARANCE (URINE) Clear Clear [facility] (CLIA# [id number]) SPECIFIC GRAVITY 1.015 1.001 - 1.035 [facility] (CLIA# [id number]) PH (URINE) 6.0 5.0 - 8.0 [facility] (CLIA# [id number]) PROTEIN (URINE) Negative Neg [facility] (CLIA# [id number]) GLUCOSE (URINE) Negative Neg [facility] (CLIA# [id number]) Ketones (Urine) Negative Neg [facility] (CLIA# [id number]) BILIRUBIN (URINE) Negative Neg [facility] (CLIA# [id number]) BLOOD (URINE) Negative Neg [facility] (CLIA# [id number]) Leukocyte esterase (Urine) Negative Neg [facility] (CLIA# [id number]) NITRITE (URINE) Negative Neg [facility] (CLIA# [id number]) Urine specimen obtained by clean catch procedure (specimen) 09/09/2016 12:32 PM EDT Narrative [facility] (CLIA# [id number]) - 09/09/2016 12:36 PM EDT Micro and culture already ordered per provider. us Brandyn Pagan MD LAB SAME DAY RESULT Final Resul t Performing Organization Address [facility] de Phone Number [facility] (CLIA# [id number]) [address] [place] [address] * CULTURE, URINE, ROUTINE (09/09/2016 12:28 PM EDT) Bacteria culture (Urine) SEE NOTE [facility] Comment: ??CULTURE, URINE, ROUTINE ??MICRO NUMBER: ?[id number] ??TEST STATUS: ? FINAL ??SPECIMEN SOURCE: ?? URINE ??SPECIMEN QUALITY: ??ADEQUATE ??RESULT: ?Multiple organisms present, each less than 10,000 ? CFU/mL. These organisms, commonly found on ? external and internal genitalia, are considered ? to be colonizers. No further testing performed. 09/09/2016 12:2 8 PM EDT 09/09/2016 7:38 PM EDT Narrative Resulting Agency Comment [id number] us Brandyn Pagan MD LABORATORY Final Result Performing Organization Address [facility]/ZIP Co de Phone Number [facility] [address] [place] [address] * URINALYSIS, MICROSCOPIC (09/09/2016 12:28 PM EDT) WBC (Urine) NONE SEEN < OR = 5 /HPF [facility] RBC (Urine Sed) NONE SEEN < OR = 2 /HPF [facility] Epithelial cells.squamous (Urine sed) NONE SEEN < OR = 5 /HPF [facility] Bacteria (Urine) NONE SEEN NONE SEEN /HPF [facility] Hyaline casts (Urine sed) NONE SEEN NONE SEEN /LPF [facility] 09/09/2016 12:2 8 PM EDT 09/09/2016 7:38 PM EDT Narrative Resulting Agency Comment [id number] us Brandyn Pagan MD LAB SAME DAY RESULT Final Resul t [facility] [address] [place] [address] documented in this encounter Visit Diagnoses Diagnosis Frequency of urination Urinary frequency documented in this encounter Care Teams Appliance Parts Counter Clerk Relationship Specialty Start Date End Date Brandyn Pagan MD PCP - General Internal Medicine 08/07/15 02/02/17 Radha Spangler NP PCP - Backup PCP Internal Medicine 01/11/16 02/02/17 Unknown Pcp, Non [facility] PCP - General 02/03/17 documented as of this encounter
--- OUTSIDE RECORDS SUMMARY | 2024-07-10 11:23 | XMS_ITS | Encounter Summary ---
Author Organization [facility] Address [address] [place] [address] Care Team Providers Care Liquor Gallery Operator Name Role Phone Brandyn Pagan MD Primary Care Provider UnavailRadha Mas NP Unavailable Unavailable Unknown Pcp, Non [facility] Primary Care Provider Unava ilable Encounter Details Date Type Department Care Team (Late st Contact Info) Description 10/24/2016 Orders Only [address] [phone] Concha Bustillo PA [address] [place] [id number] Social History Tobacco Use Types Packs/Day Years [...] as of this encounter Progress Notes * Aureliano Garcia PA - 10/24/2016 3:06 PM EDT EKG noted Exam consistent with MSK etiology. documented in this encounter Plan of Treatment Not on file documented as of this encounter Goals Goal Patient Goal Type Associated Problems Recent Progress Patient-Stated? Author Blood Pressure < 140/90 Blood Pressure 120/73( 017 9:26 AM EDT) No Radha Spangler NP documented as of this encounter Procedures * Due to [place] [employer] law, this organization might not be sharing negative HIV tests. Procedure Name Priority Date/Time Associated Diagnosis Comments EKG-USE ONLY IN READYMED/OCC MED/CARDIO Routine 10/21/2016 4:41 PM EDT Acute pain of right shoulder documented in this encounter Results * Due to [place] [employer] law, this organization might not be sharing negative HIV tests. * EKG-USE ONLY IN URGENT CARE/READYMED/OCC MED/SMG/CARDIO OR AGE <18 (10/21/2016 4:41 PM EDT) VENTRICULAR RATE 73 BPM MUS E EKG SYSTEM ATRIAL RATE 73 BPM MUSE EKG SYSTEM P-R INTERVAL 174 ms MUSE EK G SYSTEM QRS DURATION 98 ms MUSE EK G SYSTEM QT 390 ms MUSE EKG SYSTEM QTC 429 ms MUSE EKG SYSTEM P AXIS 60 degrees MUSE EKG SYSTEM R AXIS 33 degrees MUSE EKG SYSTEM T AXIS 54 degrees MUSE EKG SYSTEM EKG INTERPRETATION Normal sinus rhythm Incomplete right bundle branch block Borderline ECG MUSE EKG SYSTEM 10/21/2016 4:41 PM EDT 10/24/2016 2:58 PM EDT us Concha LION CARDIOVASCULAR-WITH INBSKT RTG Final Result MUSE EKG SYSTEM documented in this encounter Visit Diagnoses Diagnosis Acute pain of right shoulder documented in this encounter Care Teams Liquor Gallery Operator Relationship Specialty Start Date End Date Brandyn Pagan MD PCP - General Internal Medicine 08/07/15 02/02/17 Radha Spangler NP PCP - Backup PCP Internal Medicine 01/11/16 02/02/17 Unknown Pcp, Non [facility] PCP - General 02/03/17 documented as of this encounter
--- OUTSIDE RECORDS SUMMARY | 2024-07-10 11:23 | XMS_ITS | Referral Summary ---
Author Organization 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/03/2024 Telephone [facility] Case Management Department [address] [place] [address] Mariajose Calvillo RN 07/03/2024 2:30 PM EST Office Visit [address] Cardiology [address] [place] [address] Mabel Onofre NP Diastolic heart failure, unspecified HF chronicity (HCC) (Primary Dx); Paroxysmal atrial fibrillation (HCC); Pulmonary hypertension (HCC); BILLIE (obstructive sleep apnea); Benign hypertensive heart disease without congestive heart failure 07/02/2024 10:05 AM EST Lab [facility] Draw Site Department [address] [place] [address] 07/01/2024 3:15 PM EST Office Visit [facility] Nephrology [address] [place] [address], 2nd [place] [address] John Hendricks MD Hyperkalemia (Primary Dx); CKD stage 3a, GFR 45-59 ml/min (HCC); Chronic heart failure with preserved ejection fraction (HCC); Primary hypertension 07/01/2024 9:05 AM EST Lab [facility] Draw Site Department [address] [place] [address] Diastolic heart failure, unspecified HF chronicity (HCC) 07/01/2024 Orders Only [address] Card[address] [place] [address] Mabel Onofre NP 06/15/2024 7:35 PM EST - 06/26/2024 6:09 PM EST Hospital Encounter [facility] [address] [address] Kevin Newsome MD Devineni, Praveen, MD Discharge Disposition: Home with Services (06) 06/24/[address] Cardiology [address] [place] [address] Elise Boykin [place] [facility] 06/23/2024 Lab Requisition [facility] Lab [address] [place] [address] Mj Mendenhall MD Pneumonia due to other specified infectious organisms 06/02/2024 12:57 PM EST - 06/04/2024 3:30 PM EST Emergency [facility] [address] [address] Govind Glez MD Cebula, Maria, MD Colucci, Joseph M, MD Silva, Joshua T, MD Nesanelis, David, MD Generalized weakness (Primary Dx) Discharge Disposition: [facility] (03) from Last 3 Months Allergies Active Allergy Reactions Criticality Noted Date Comments Lansoprazole Indigestion Medium Bhuxbhr-Qfj-Vtx Reductase Inhibitors Muscle Pain Medium Per pt [...] hours. 60 tablet 06/26/19 25 2024 Discontinued ipratropium-albu teroL (DUO-NEB) 0.5-2.5 [...] discontinued tomorrow. Repeat BMP Diastolic CHF, acute ([facility]) 06/19/2024 Assessment & Plan (06/24/2024 1:48 PM [...] on admission by SpO2 88% requiring 3-4L RESEARCH MANAGEMENT ASSOCIATE. Tachypnea with RR increased to 22 RPM. She is not home-O2 dependent. -Wean supplemental O2 as tolerated, presently om room air -Taper steroids -Continue supportive therapy with nebulized bronchodilators, ICS and multiple antitussives. -Avoid increasing Tramadol in setting of COPD/asthma. Assessment & Plan (06/23/2024 4:18 PM EST): Acute Resp Failure: Evidenced on admission by SpO2 88% requiring 3-4L RESEARCH MANAGEMENT ASSOCIATE. Tachypnea with RR increased to 22 RPM. She is not home-O2 dependent. Presently weaned to 2L RESEARCH MANAGEMENT ASSOCIATE, but still coarse with rhonchus cough. Reduced IV steroids as no wheezing on exam and she appears tearful and depressed. Continue supportive therapy with nebulized bronchodilators, ICS and multiple antitussives. Avoid increasing Tramadol in setting of COPD/asthma. Assessment & Plan (06/22/2024 5:42 PM EST): Acute Resp Failure: Evidenced on admission by SpO2 88% requiring 3-4L RESEARCH MANAGEMENT ASSOCIATE. Tachypnea with RR increased to 22 RPM. She is not home-O2 dependent. Presently weaned to 2L RESEARCH MANAGEMENT ASSOCIATE, but still coarse with rhonchus cough. Reduced [...] auth. Fall precautions Ambulate with assistance A-fib ([facility]) 06/03/2024 Assessment & Plan (06/25/2024 12:39 PM [...] (06/03/2024 9:23 PM EST): Continue home Zetia Immunizations Immunization Administration Dates Next Due INFLUENZA, SPLIT VIRUS, TRIVALENT, PF 06/15/2017 Influenza, Injectable, Quadrivalent, Preservativ e Free 03/11/2016 Influenza, Trivalent, Adjuvanted, PF 02/18/2018 Pneumococcal Conjugate Vaccine, 13 Valent 2017 Pneumococcal Polysaccharide Vaccine, 23 Valent 0 06/27/2018 Tetanus Toxoid, Reduced Diph theria Toxoid, and Acellular Pertussis Vaccine, Adsorbed 01/11/2016 Zoster Vaccine, Live 01/11/2016 Social History Tobacco Use Types Packs/Day Years Used Date Smoking Tobacco: Former Smokeless Tobacco: Never Tobacco Cessation:Counseling Given: Not Answered Comments:: Alcohol Use Standard Drinks/Week Comments Not Currently 0 (1 standard drink = 0.6 oz pur e alcohol) [facility] Utilities Answer Date Recorded In the [...] Info) Description 08/01/2024 2:00 PM EDT Follow-Up [facility] Nephrology 100 [facility] [address] [place] [address] John Hendricks MD [address] [place] [address] 01/08/2025 10:00 AM EDT Follow-Up [facility] 100 [facility] Cardiology 100 [facility] [address] [place] [address] Mabel Onofre NP 100 [facility] [address] [place] [address] Procedures * Due to [place] state [...] to Health Maintenance Results * Due to [place] state law, this organization might not be sharing negative HIV tests. * (ABNORMAL) Microscopic Urinalysis Only (07/02/2024 9:17 AM EST) RBC, Urine 5-10(A) None Seen, 0-2 /HPF 07/02/2024 10:07 AM EST [facility] WBC, Urine 0-2 None Seen, 0-2 /HPF 07/02/2024 10:07 AM EST [facility] Squamous Epithelial Cells, Urine 0-2 /HPF 07/02/2024 10:07 AM EST [facility] Bacteria, Urine Occasional (A) None Seen /HPF 07/02/2024 10:07 AM EST [facility] Urine Urine specimen collection, clean catch / Unknown Non-Blood Collection / Unknown 07/02/2024 9:17 AM EST 07/02/2024 9:36 AM EST John Hendricks MD LAB URINE ORDERABLES Final Resul t [facility] [address] [place] [address] [address] [place] [address], [place] [phone] * (ABNORMAL) Urinalysis W/Reflex to Microscopic (No Culture) (07/02/2024 9:17 AM EST) Color, Urine Yellow Yellow 07/02/2024 9:44 AM EST [facility] Clarity, Urine Clear Clear 07/02/2024 9:44 AM EST [facility] Specific [place], Urine 1.015 1.005 - 1.030 07/02/2024 9:44 AM EST [facility] pH, Urine 5.5 5.0 - 8.0 07/02/2024 9:44 AM EST [facility] Protein, Urine Negative Negative mg/dL 07/02/2024 9:44 AM EST [facility] Glucose, Urine Negative Negative mg/dL 07/02/2024 9:44 AM EST [facility] Ketones, Urine Negative Negative mg/dL 07/02/2024 9:44 AM EST [facility] Bilirubin, Urine Negative Negative 07/02/2024 9:44 AM EST [facility] Blood, Urine Small(A) Negative 07/02/2024 9:44 AM EST [facility] Nitrite, Urine Negative Negative 07/02/2024 9:44 AM EST [facility] Urobilinogen, Urine 0.2 0.2 - 1.0 E.U./dL 07/02/2024 9:44 AM EST [facility] Leukocyte Esterase, Urine Small(A) Negative 07/02/2024 9:44 AM EST [facility] Urine Urine specimen collection, clean catch / Unknown Non-Blood Collection / Unknown 07/02/2024 9:17 AM EST 07/02/2024 9:36 AM EST us John Hendricks MD LAB URINE ORDERABLES Final Resul t [facility] [address] [facility] [address] [place] [address], * (ABNORMAL) SPEP (Protein Electrophoresis w/Reflex to [...] ORDERABLES Final Resul t HILARY DAVID [address] [facility] 3rd Floor, [place] [address], [place] [phone] * Hemoglobin and Hematocrit (07/02/2024 9:17 AM EST) Hemoglobin 12.0 11.7 - 15.5 g/dL 07/02/2024 9:38 AM EST [facility] Hematocrit 37.1 35.7 - 45.8 % 07/02/2024 9:38 AM EST [facility] Blood Structure of peripheral vein / Unknown Venipuncture / Unknown 07/02/2024 9:17 AM EST 07/02/2024 9:29 AM EST us John Hendricks MD LAB BLOOD ORDERABLES Final Resul t [facility] [address] [address], [place] [phone] * Microalbumin, Random Urine with Creatinine (07/02/2024 9:17 AM EST) Creatinine, Urine 55 mg/dL 07/02/2024 2:41 PM EST [facility] Microalbumin, Urine 4 <=20 mg/L 07/02/2024 2:41 PM EST [facility] Microalb/Creat Ratio, Random Urine 7.3 1.3 - 30.0 mg/g 07/02/2024 2:41 PM EST [facility] Urine Voided urine specimen / Unknown Non-Blood Collection / Unknown 07/02/2024 9:17 AM EST 07/02/2024 9:36 AM EST us John Hendricks MD LAB URINE ORDERABLES Final Resul t Performing Organization Address [facility] Co de Phone Number [facility] [address] [address], [place] [phone] * Protein, Random Urine with Creatinine (07/02/2024 9:17 AM EST) Protein, Urine 6 mg/dL 07/02/2024 2:41 PM EST [facility] Creatinine, Urine 55 mg/dL 07/02/2024 2:41 PM EST [facility] Protein/Creati nine Ratio 109 <200 mg/gmCr 07/02/2024 2:41 PM EST [facility] Urine Voided urine specimen / Unknown Non-Blood Collection / Unknown 07/02/2024 9:17 AM EST 07/02/2024 9:36 AM EST us John Hendricks MD LAB URINE ORDERABLES Final Resul t Performing Organization Address [facility] Co de Phone Number [facility] [address] [address], [place] [phone] * (ABNORMAL) Vitamin D, 25-Hydroxy, Total, Immunoassay (07/02/2024 9:17 AM EST) Only the most recent of2 resultswithin the time period is included. Vitamin D 25-OH 22.50(L) 30.00 - 80.00 ng/mL 07/02/2024 11:24 AM EST [facility] Blood Structure of peripheral vein / Unknown Venipuncture / Unknown 07/02/2024 9:17 AM EST 07/02/2024 9:29 AM EST us John Hendricks MD LAB BLOOD ORDERABLES Final Resul t Performing Organization Address City/[facility]/ZIP Co de Phone Number [facility] [address] [address], [place] [phone] * (ABNORMAL) PTH, Intact (without Calcium) (07/02/2024 9:17 AM EST) Parathyroid Hormone, Intact 226.0(H) 14.5 - 87.1 pg/mL 07/02/2024 11:19 AM EST [facility] Comment: This test was performed using the chemiluminescent immunoassay (CLIA) intended for the quantitative determination of intact human parathyroid hormone method on the DIASORIN LIAISON. Values obtained from different assay methods cannot be used interchangeably. Assay results should be utilized in conjunction with other clinical and laboratory data Blood Structure of peripheral vein / Unknown Venipuncture / Unknown 07/02/2024 9:17 AM EST 07/02/2024 9:29 AM EST us John Hendricks MD LAB BLOOD ORDERABLES Final Resul t Performing Organization Address [facility] Co de Phone Number [facility] [address] [place] [address], [place] [phone] * Magnesium (07/02/2024 9:17 AM EST) [facility] MG 1.9 1.5 - 2.5 mg/dL 07/02/2024 10:01 AM EST [facility] Blood Structure of peripheral vein / Unknown Venipuncture / Unknown 07/02/2024 9:17 AM EST 07/02/2024 9:29 AM EST us John Hendricks MD LAB BLOOD ORDERABLES Final Resul t Performing Organization Address [facility] Co de Phone Number [facility] [address] [place] [address], [place] [phone] * (ABNORMAL) Renal Function Panel (07/02/2024 9:17 AM EST) [facility] NA 138 136 - 145 mmol/L 07/02/2024 10:02 AM EST [facility] K 4.4 3.5 - 5.1 mmol/L 07/02/2024 10:02 AM EST [facility] Comment:ALL DELTAS REVIEWED Cl 101 98 - 109 mmol/L 07/02/2024 10:02 AM EST [facility] CO2 26 22 - 32 mmol/L 07/02/2024 10:02 AM [facility] Anion Gap 15 >=0 07/02/2024 10:02 AM EST [facility] Glucose 115(H) 60 - 99 mg/dL 07/02/2024 10:02 AM [facility] BUN 37(H) 8 - 23 mg/dL 07/02/2024 10:02 AM EST [facility] Creatinine 1.47(H) 0.50 - 1.12 mg/dL 07/02/2024 10:02 AM [facility] Calcium 8.8 8.4 - 10.4 mg/dL 07/02/2024 10:02 AM [facility] Phosphorus 3.6 2.5 - 4.5 mg/dL 07/02/2024 10:02 AM [facility] Albumin 3.8 3.5 - 5.0 g/dL 07/02/2024 10:02 AM [facility] eGFR 38(L) >=60 mL/min/1. 73m2 07/02/2024 10:02 AM EST [facility] Comment:The estimated glomer ular filtration [...] LAB BLOOD ORDERABLES Final Resul t [facility] [address] [address], * N-terminal ProBrain Natriuretic Peptide (07/01/2024 8:39 AM EST) Only the most recent of5 resultswithin the time period is included. Pro-B-Type Natriuretic Peptide 288 <=900 pg/mL 07/01/2024 9:39 AM EST [facility] Comment: RULE IN CHF >/= [...] EST 07/01/2024 9:05 AM EST Mabel Onofre RESEARCH MANAGEMENT ASSOCIATE LAB BLOOD ORDERABLES Final Result [facility] [address] [address], [place] [phone] * (ABNORMAL) Basic metabolic panel (07/01/2024 8:39 AM EST) Only the most recent of11 resultswithin the time period is included. NA 140 136 - 145 mmol/L 07/01/2024 9:36 AM EST [facility] K 5.3(H) 3.5 - 5.1 mmol/L 07/01/2024 9:36 AM EST [facility] Cl 102 98 - 109 mmol/L 07/01/2024 9:36 AM EST [facility] CO2 29 22 - 32 mmol/L 07/01/2024 9:36 AM EST [facility] BUN 34(H) 8 - 23 mg/dL 07/01/2024 9:36 AM EST [facility] Creatinine 1.27(H) 0.50 - 1.12 mg/dL 07/01/2024 9:36 AM EST [facility] Glucose 113(H) 60 - 99 mg/dL 07/01/2024 9:36 AM EST [facility] Calcium 8.9 8.4 - 10.4 mg/dL 07/01/2024 9:36 AM EST [facility] Anion Gap 14 >=0 07/01/2024 9:36 AM EST [facility] eGFR 45(L) >=60 mL/min/1. 73m2 07/01/2024 9:36 AM EST [facility] Comment:The estimated glomer ular filtration [...] EST 07/01/2024 9:04 AM EST Mabel Onofre RESEARCH MANAGEMENT ASSOCIATE LAB BLOOD ORDERABLES Final Result [facility] [address] [place] [address], * X-Ray Abdomen 1 View (06/26/2024 12:39 [...] obtain the completed interpretation. ? Workstation ID: [id number] Narrative 06/26/2024 2:05 PM EST EXAMINATION: ??XR ABDOMEN 1 VW INDICATION: RLQ abdominal pain, constipation COMPARISONS: None Resulting Agency Comment [id number] Procedure Note Calvin Katz MD - 06/26/2024 [...] possible to obtain thecompleted interpretation. Workstation ID: [id number] us Tia Oh RESEARCH MANAGEMENT ASSOCIATE IMG XR PROCEDURES Final Result * (ABNORMAL) CBC (06/26/2024 6:22 AM EST) Only the most recent of5 resultswithin the time period is included. WBC 15.0(H) 4.8 - 10.8 10*3/uL 06/26/2024 6:42 AM EST [facility] RBC 4.51 4.20 - 5.40 10*6/uL 06/26/2024 6:42 AM EST [facility] Hemoglobin 13.1 11.7 - 15.5 g/dL 06/26/2024 6:42 AM EST [facility] Hematocrit 40.5 35.7 - 45.8 % 06/26/2024 6:42 AM EST [facility] MCV 89.8 81.0 - 99.0 fL 06/26/2024 6:42 AM EST [facility] MCH 29.0 26.0 - 34.0 pg 06/26/2024 6:42 AM EST [facility] MCHC 32.3 31.0 - 36.0 g/dL 06/26/2024 6:42 AM EST [facility] RDW 13.2 12.0 - 15.0 % 06/26/2024 6:42 AM EST [facility] Platelets 220 140 - 440 10*3/uL 06/26/2024 6:42 AM EST [facility] MPV 9.4 9.4 - 12.3 fL 06/26/2024 6:42 AM EST [facility] RDW Standard Deviation 43.5 36.4 - 46.3 fL 06/26/2024 6:42 AM EST [facility] Blood Structure of peripheral vein / Unknown Venipuncture / Unknown 06/26/2024 6:22 AM EST 06/26/2024 6:39 AM EST us Olivia Arteaga NP LAB BLOOD ORDERABLES Final Result Performing Organization Address City/State/[facility] Co de Phone Number [address] [address], [place] [phone] * ECG 12 lead (06/24/2024 9:50 AM EST) Only the most recent of4 resultswithin the time period is included. Ventricular Rate EKG 73 BPM MUSE EKG Atrial Rate 73 BPM MUSE EKG UT Interval 228 ms MUSE EKG QRS Interval 128 ms MUSE EKG QT Interval 384 ms MUSE EKG QTC Interval 423 ms MUSE EKG P Odonnell 65 degrees MUSE EKG R [place] 41 degrees MUSE EKG T Wave Odonnell 61 degrees MUSE EKG 06/24/2024 9:50 AM EST 06/24/2024 5:36 PM EST Impressions MUSE EKG - 06/24/2024 5:36 PM EST Sinus rhythm with 1st degree AV block with occasional premature ventricular complexes Nonspecific intraventricular block When compared with ECG of 21-JUN-2024 07:26, No significant change was found Confirmed by Stephanie Hampton ([id number]) on 06/24/2024 5:36:28 PM us Olivia Arteaga RESEARCH MANAGEMENT ASSOCIATE ECG ORDERABLES Final Resul t MUSE EKG * (ABNORMAL) Potassium (06/23/2024 10:05 AM EST) K 5.6(H) 3.5 - 5.1 mmol/L 06/23/2024 10:58 AM EST [facility] Comment:REVIEWED Blood Structure of peripheral vein / Unknown Venipuncture / Unknown 06/23/2024 10:05 AM EST 06/23/2024 10:36 AM EST Narrative [facility] - 06/23/2024 10:58 AM EST Please check heparinized potassium, TY. Sydney David RESEARCH MANAGEMENT ASSOCIATE LAB BLOOD ORDERABLES Final Result Performing Organization Address City/[facility] Co de Phone Number [facility] [address] [place] [address] [address] [place] [address], [place] [phone] * X-Ray Chest 2 Views (06/22/2024 4:27 [...] obtain the completed interpretation. ? Workstation ID: [id number] Narrative 06/24/2024 9:35 AM EST COMPARISON: ??06/18/2024 FINDINGS AND Resulting Agency Comment [id number] Procedure Note Calvin Katz MD - 06/24/2024 COMPARISON: 06/18/2024 FINDINGS AND IMPRESSION: Interval clearing of prior LLL infiltrate/atelectasis. Lungs and pleuralspaces now clear. Heart size remains normal. If this radiology report contains a blank impression section, it is anincomplete radiology report. Please contact the interpreting radiologistor applicable radiology division as soon as possible to obtain thecompleted interpretation. Workstation ID: [id number] us Sydney David RESEARCH MANAGEMENT ASSOCIATE IMG XR PROCEDURES Final Res ult * Lavender Top (06/22/2024 6:53 AM EST) Only the most recent of2 resultswithin the time period is included. Extra Tube Hold for add-ons. 06/22/2024 11:05 AM EST [facility] Comment:Auto resulted. Blood Structure of peripheral vein / Unknown 06/22/2024 6:53 AM EST 06/22/2024 6:53 AM EST us Mj Mendenhall MD LAB BLOOD ORDERABLES Final R esult Performing Organization Address City/State/[facility] Co de Phone Number [facility] [address] [place] [address], [place] [phone] * Troponin T, High Sensitivity (06/20/2024 10:19 AM EST) Only the most recent of3 resultswithin the time period is included. Troponin T High Sensitivity 14 6 - 14 ng/L 06/20/2024 11:08 AM EST [facility] Comment: Wp-Jllqoaud-L level of 52 ng/L or higher at [...] be evaluated in line with the 4th [place] Definition of AMI. Troponin baseline and serial [...] ORDERABLES Final R esult Performing Organization Address City/[facility]/ZIP Co de Phone Number [facility] [address] [address], [place] [phone] * (ABNORMAL) Respiratory Culture (06/20/2024 7:37 AM EST) Respiratory Culture Moderate Rayna albicans(A) [facility] [facility] 06/22/2024 11:29 AM EST [facility] Gram Stain Result <25 per LPF White Blood Cells Seen 06/22/2024 11:29 AM EST [facility] Gram Stain Result <10 per LPF Epithelial Cells 06/22/2024 11:29 AM EST [facility] Gram Stain Result Rare Gram Positive Cocci in pairs 06/22/2024 11:29 AM EST [facility] Sputum Sputum / Unknown Non-Blood Collection / Unknown 06/20/2024 7:37 AM EST 06/20/2024 7:54 AM EST Narrative [facility] - 06/22/2024 11:29 AM EST Many normal respiratory beena present. [facility] RESEARCH MANAGEMENT ASSOCIATE LAB MICROBIOLOGY - GENERAL ORDER RHINA Final Result Performing Organization Address City/[facility] Co de Phone Number [facility] [address] [address], [place] [phone] * Streptococcus Pneumoniae Antigen Urine (06/18/2024 6:44 PM EST) Streptococcus pneumoniae Antigen, Urine Negative Negative [facility] 06/19/2024 8:53 AM EST [facility] Comment: INTERPRETATION: Presumptive negative for [...] ORDERABLES Final R esult Performing Organization Address [facility] Co de Phone Number [facility] [address] [place] [address], [place] [phone] * Legionella Antigen, Urine (06/18/2024 6:44 PM EST) Legionella pneumophila Urine Ag Negative Negative [facility] 06/19/2024 8:53 AM EST [facility] Comment: INTERPRETATION: Presumptive negative for [...] 6:44 PM EST 06/18/2024 7:15 PM EST [facility] - 06/19/2024 8:53 AM EST This [...] ORDERABLES Final R esult Performing Organization Address [facility] Co de Phone Number [facility] [address] [place] [address], [place] [phone] * XR Chest Portable 1 View (06/18/2024 [...] obtain the completed interpretation. ? Workstation ID: [id number] Narrative 06/20/2024 10:17 AM EST EXAMINATION: XR CHEST PORTABLE 1 VIEW COMPARISON: CT chest pulmonary angiogram 06/15/2024 and other priors. FINDINGS: Lines/Tubes/Devices: None. Lungs: Redemonstrated left basilar consolidation. Pleura: No pleural effusions or pneumothorax. Heart/Mediastinum: Cardiomediastinal silhouette is similar to prior. Bones/Soft tissues: No acute osseous abnormality. Resulting Agency Comment [id number] Procedure Note Apolonia Nolen MD - 06/20/2024 [...] possible to obtain thecompleted interpretation. Workstation ID: [id number] us Tia Oh RESEARCH MANAGEMENT ASSOCIATE IMG XR PROCEDURES Final Result * (ABNORMAL) CBC Auto Differential (06/17/2024 7:03 AM EST) Only the most recent of3 resultswithin the time period is included. Pathologist [facility] WBC 11.6(H) 4.8 - 10.8 10*3/uL 06/17/2024 7:30 AM EST [facility] RBC 3.94(L) 4.20 - 5.40 10*6/uL 06/17/2024 7:30 AM [facility] Hemoglobin 11.7 11.7 - 15.5 g/dL 06/17/2024 7:30 AM [facility] Hematocrit 35.4(L) 35.7 - 45.8 % 06/17/2024 7:30 AM [facility] MCV 89.8 81.0 - 99.0 fL 06/17/2024 7:30 AM [facility] MCH 29.7 26.0 - 34.0 pg 06/17/2024 7:30 AM [facility] MCHC 33.1 31.0 - 36.0 g/dL 06/17/2024 7:30 AM [facility] RDW 12.9 12.0 - 15.0 % 06/17/2024 7:30 AM [facility] RDW Standard Deviation 42.6 36.4 - 46.3 fL 06/17/2024 7:30 AM [facility] Platelets 257 140 - 440 10*3/uL 06/17/2024 7:30 AM [facility] Comment:REV IEWED MPV 10.0 9.4 - 12.3 fL 06/17/2024 7:30 AM [facility] Neutrophil % 81.6(H) 50.0 - 75.0 % 06/17/2024 7:30 AM [facility] Immature Grans % 0.8 0.0 - 0.9 % 06/17/2024 7:30 AM [facility] Lymphocyte % 11.8(L) 20.0 - 44.0 % 06/17/2024 7:30 AM [facility] Monocyte % 5.6 0.0 - 14.0 % 06/17/2024 7:30 AM [facility] Eosinophil % 0.0 0.0 - 5.0 % 06/17/2024 7:30 AM EST [facility] Basophil % 0.2 0.0 - 2.0 % 06/17/2024 7:30 AM EST [facility] Neutrophil # 9.48(H) 1.80 - 7.70 10*3/uL 06/17/2024 7:30 AM EST [facility] Immature Grans # 0.09(H) 0.00 - 0.03 10*3/uL 06/17/2024 7:30 AM EST [facility] Lymphocyte # 1.40 1.00 - 4.75 10*3/uL 06/17/2024 7:30 AM EST [facility] Monocyte # 0.70(H) 0.00 - 0.60 10*3/uL 06/17/2024 7:30 AM EST [facility] Eosinophil # <0.03 0.00 - 0.80 10*3/uL 06/17/2024 7:30 AM EST [facility] Basophil # <0.03 0.00 - 0.20 10*3/uL 06/17/2024 7:30 AM EST [facility] nRBC % 0.0 0 - 0 /100 WBCs 06/17/2024 7:30 AM EST [facility] nRBC # <0.01 0.00 - 0.13 10*3/uL 06/17/2024 7:30 AM EST [facility] Blood Structure of peripheral vein / Unknown Venipuncture / Unknown 06/17/2024 7:03 AM EST 06/17/2024 7:22 AM EST us Mj Mendenhall MD LAB BLOOD ORDERABLES Final R esult [facility] [address] [place] [address], [place] [phone] * TSH (06/17/2024 7:03 AM EST) Only the most recent of2 resultswithin the time period is included. TSH 0.874 0.270 - 4.200 uIU/mL 06/17/2024 2:31 PM EST [facility] Comment: Females: 1st trimester ? 0.150-4.000 ??IU/mL 2nd trimester ?? 0.310-4.170 ?IU/mL 3rd trimester ?0.380-4.150 ?IU/mL Blood Structure of peripheral vein / Unknown Venipuncture / Unknown 06/17/2024 7:03 AM EST 06/17/2024 7:23 AM EST us Tia Oh RESEARCH MANAGEMENT ASSOCIATE LAB BLOOD ORDERABLES Final Resul t [facility] [address] [place] [address], [place] [phone] * (ABNORMAL) Comprehensive Metabolic Panel (06/17/2024 7:03 AM EST) Only the most recent of2 resultswithin the time period is included. NA 139 136 - 145 mmol/L 06/17/2024 8:07 AM EST [facility] K 5.1 3.5 - 5.1 mmol/L 06/17/2024 8:07 AM EST [facility] Cl 106 98 - 109 mmol/L 06/17/2024 8:07 AM EST [facility] CO2 23 22 - 32 mmol/L 06/17/2024 8:07 AM EST [facility] Anion Gap 15 >=0 06/17/2024 8:07 AM EST [facility] Glucose 111(H) 60 - 99 mg/dL 06/17/2024 8:07 AM EST [facility] Creatinine 0.99 0.50 - 1.12 mg/dL 06/17/2024 8:07 AM EST [facility] Calcium 9.4 8.4 - 10.4 mg/dL 06/17/2024 8:07 AM EST [facility] Total Protein 6.8 6.6 - 8.7 g/dL 06/17/2024 8:07 AM EST [facility] Albumin 4.0 3.5 - 5.0 g/dL 06/17/2024 8:07 AM [facility] Bilirubin, Total 0.1(L) 0.2 - 1.2 mg/dL 06/17/2024 8:07 AM EST [facility] Alkaline Phosphatase 109 40 - 129 U/L 06/17/2024 8:07 AM [facility] AST 23 0 - 33 U/L 06/17/2024 8:07 AM EST [facility] ALT 26 <=33 U/L 06/17/2024 8:07 AM [facility] BUN 27(H) 8 - 23 mg/dL 06/17/2024 8:07 AM [facility] eGFR 61 >=60 mL/min/1. 73m2 06/17/2024 8:07 AM [facility] Comment:The estimated glomer ular filtration [...] 4.2 g/dL 06/17/2024 8:07 AM EST [facility] A/G Ratio 1.4(L) 1.5 - 3.0 06/17/2024 8:07 AM [facility] Blood Structure of peripheral vein / Unknown Venipuncture / Unknown 06/17/2024 7:03 AM EST 06/17/2024 7:23 AM EST Mj Mendenhall MD LAB BLOOD ORDERABLES Final R esult Performing Organization Address [facility] Co de Phone Number [facility] [address] [address], * Light Green Top (06/16/2024 7:54 AM EST) [facility] Extra Tube Hold for add-ons. 06/16/2024 12:05 PM EST [facility] Comment:Auto resulted. Blood Structure of peripheral vein / Unknown 06/16/2024 7:54 AM EST 06/16/2024 7:54 AM EST us Mj Mendenhall MD LAB BLOOD ORDERABLES Final R [employer] Performing Organization Address [facility] Co de Phone Number [facility] [address] [address], * Mycoplasma pneumoniae Antibodies, IgG/IgM (06/16/2024 7:42 AM EST) [facility] M. pneumoniae Ab, IgG <=0.90 <=0.90 06/19/2024 10:04 PM EST [facility] ([place]) Comment: ? Reference Range: ? <=0.90 ? [...] <770 U/mL 06/19/2024 10:04 PM EST [facility] ([place]) Comment: Reference Range: ?<770 U/ml ?Negative 770-950 [...] BLOOD ORDERABLES Final R esult HILARY DAVID [address] [place] [address] 3[address] Floor, [place] [address], [employer] [facility] ([email or web address]) [address] [place] [address], [place] * CT Chest PE (06/15/2024 11:49 [...] obtain the completed interpretation. ? Workstation ID: [id number] Up-to-date CT equipment and radiation dose reduction [...] possible to obtain thecompleted interpretation. Workstation ID: [id number] Up-to-date CT equipment and radiation dose reduction techniques wereemployed. CTDIvol: .8 - 21.4 mGy. DLP: 802 mGy-cm. us Kevin Newsome MD IMG CT PROCEDURES Final Result * Blood Culture (06/15/2024 10:17 PM EST) Only the most recent of2 resultswithin the time period is included. Blood Culture No growth after 5 days 06/20/2024 11:05 PM EST [facility] Blood Structure of peripheral vein / Unknown Venipuncture / Unknown 06/15/2024 10:17 PM EST 06/15/2024 10:39 PM EST us Kevin Newsome MD LAB MICROBIOLOGY - GENERAL ORDER RHINA Final Result Performing Organization Address [facility] Co de Phone Number [facility] [address] [place] [address], [place] [phone] * Lactic Acid, Plasma (06/15/2024 10:17 PM EST) Lactic Acid 0.7 0.5 - 2.2 mmol/L 06/15/2024 11:02 PM EST [facility] Blood Structure of peripheral vein / Unknown Venipuncture / Unknown 06/15/2024 10:17 PM EST 06/15/2024 10:31 PM EST us Kevin Newsome MD LAB BLOOD ORDERABLES Final Resul t Performing Organization Address [facility] Co de Phone Number [facility] [address] [place] [address], [place] [phone] * (ABNORMAL) Blood gas, venous (06/15/2024 10:17 PM EST) pH, Venous 7.24(LL) 7.35 - 7.45 06/16/2024 2:54 AM EST [facility] pCO2, Venous 57.0 mm[Hg] 06/16/2024 2:54 AM EST [facility] pO2, Keegan 138.0 mm[Hg] 06/16/2024 2:54 AM EST [facility] HCO3, Venous 22 mmol/L 06/16/2024 2:54 AM EST [facility] O2 Sat, Venous 97.8 % 06/16/2024 2:54 AM EST [facility] Base Excess, Keegan -3.6 mmol/L 06/16/2024 2:54 AM EST [facility] Blood Structure of peripheral vein / Unknown Venipuncture / Unknown 06/15/2024 10:17 PM EST 06/16/2024 2:52 AM EST us Kevin Newsome MD LAB BLOOD ORDERABLES Final Resul t [facility] [address] [place] [address], * COVID-19, Flu A/B & RSV RNA PCR, Symptomatic (06/15/2024 7:58 PM EST) PCR, SARS CoV-2 RNA Not Detected Not Detected [employer] 06/15/2024 8:48 PM EST [facility] Flu A RNA PCR Not Detected Not Detected [employer] 06/15/2024 8:48 PM EST [facility] Flu B RNA PCR Not Detected Not Detected [employer] 06/15/2024 8:48 PM EST [facility] RSV RNA PCR Not Detected Not Detected [employer] 06/15/2024 8:48 PM EST [facility] Comment: Limitations: This RSV test [...] EST 06/15/2024 8:09 PM EST Narrative [facility] - 06/15/2024 8:48 PM EST Methodology: The 2U GeneXpert CoV-2/Flu/RSV plus assay is For Use Under an Emergency Use Authorization (EUA) Only with [employer]. The CoV-2/Flu/RSV plus assay is a [...] AND STOOLS O RDERABLES Final Result [facility] [address] [place] [address], * HEART & VASCULAR - SCANNED (06/15/2024) [...] Estimated 70 % EF 2D 70 % [facility] RV TISSUE DOPPLER S' 11.0 cm/s [...] Katelyn Chavira NP CV ECHO PROCEDURES Seema rehman Result * (ABNORMAL) D-Dimer, Quantitative (for DVT/PE) (06/03/2024 4:10 PM EST) D-Dimer, Quantitative 0.54(HH) 0.10 - 0.49 mg/L FEU 06/03/2024 4:45 PM EST [facility] Comment:A D-DIMER VALUE OF < 0.50 ug/FEU/mL HAS A STRONG NEGATIVE PREDICTIVE VALUE FOR EXCLUSION OF PULMONARY EMBOLIC AND DEEP VEIN THROMBOSIS. CLINICAL CORRELATION IS INDICATED. Blood Structure of peripheral vein / Unknown Venipuncture / Unknown 06/03/2024 4:10 PM EST 06/03/2024 4:15 PM EST Calvin Fontenot MD LAB BLOOD ORDERABLES Final R esult [facility] [address] [place] [address], * [place] Lower Extremity Venous Left (06/03/2024 [...] obtain the completed interpretation. ? Workstation ID: [id number] Narrative 06/03/2024 3:48 PM EST EXAMINATION: US [...] identified behind the knee Resulting Agency Comment [id number] Procedure Note Sonny Valdivia MD - 06/03/2024 [...] possible to obtain thecompleted interpretation. Workstation ID: [id number] Calvin Fontenot MD IM US PROCEDURES Final Resu lt * Rapid COVID-19, FLU A, FLU B & RSV RNA PCR, Symptomatic (ED ONLY) (06/03/2024 3:02 PM EST) Pathologist [facility] PCR, SARS CoV-2 RNA Not Detected Not Detected [employer]EXP[employer] 06/03/2024 3:48 PM EST [facility] Flu A RNA PCR Not Detected Not Detected CEPHEID GENEXPERT 06/03/2024 3:48 PM EST [facility] Flu B RNA PCR Not Detected Not Detected CEP[employer]ID [employer]EXPERT 06/03/2024 3:48 PM EST [facility] RSV RNA PCR Not Detected Not Detected CEPHEID GENEXPERT 06/03/2024 3:48 PM EST [facility] Comment: Limitations: This RSV test [...] 3:02 PM EST 06/03/2024 3:06 PM EST [facility] - 06/03/2024 3:48 PM EST Methodology: The [employer]ep[employer] GeneXpert CoV-2/Flu/RSV plus assay is For Use Under an Emergency Use Authorization (EUA) Only with [employer]. The CoV-2/Flu/RSV plus assay is a [...] FLUIDS AND STOOLS O RDERABLES Final Result [facility] [address] [place] [address], * CT Lumbar Spine WO Contrast (06/02/2024 [...] obtain the completed interpretation. ? Workstation ID: [id number] Up-to-date CT equipment and radiation dose reduction techniques were employed. CTDIvol: 22.2 - 54.3 mGy. DLP: 3111 mGy-cm. ??The following accession numbers are related to this dose report [id number]: [id number] Narrative 06/02/2024 7:00 PM EST COMPARISON: None available. FINDINGS: There is no evidence of acute compression fracture. ??Alignment is maintained. ?? 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 ??Severe degenerative changes are seen most severe at L3-4. ??Paraspinous soft tissues are unremarkable. ??Incidental 1.5 cm splenic artery aneurysm Resulting Agency Comment [id number] Procedure Note Luis Mayfield MD - 06/02/2024 [...] possible to obtain thecompleted interpretation. Workstation ID: [id number] Up-to-date CT equipment and radiation dose reduction techniques wereemployed. CTDIvol: 22.2 - 54.3 mGy. DLP: 3111 mGy-cm. The followingaccession numbers are related to this dose report [id number]: [id number] Govind Glez MD IM CT PROCEDURES Final Result * CT Cervical [...] obtain the completed interpretation. ? Workstation ID: [id number] Up-to-date CT equipment and radiation dose reduction techniques were employed. CTDIvol: 22.2 - 54.3 mGy. DLP: 3111 mGy-cm. ??The following accession numbers are related to this dose report [id number]: [id number] Up-to-date CT equipment and radiation dose reduction techniques were employed. CTDIvol: 22.2 - 54.3 mGy. DLP: 3111 mGy-cm. ??The following accession numbers are related to this dose report [id number]: [id number] Narrative 06/02/2024 6:31 PM EST COMPARISON: 04/28/2016. [...] are within normal limits. Resulting Agency Comment [id number] Procedure Note Luis Mayfield MD - 06/02/2024 [...] possible to obtain thecompleted interpretation. Workstation ID: [id number] Up-to-date CT equipment and radiation dose reduction techniques wereemployed. CTDIvol: 22.2 - 54.3 mGy. DLP: 3111 mGy-cm. The followingaccession numbers are related to this dose report [id number]: [id number] Up-to-date CT equipment and radiation dose reduction techniques wereemployed. CTDIvol: 22.2 - 54.3 mGy. DLP: 3111 mGy-cm. The followingaccession numbers are related to this dose report [id number]: [id number] Govind Glez MD IM CT PROCEDURES Final [...] obtain the completed interpretation. ? Workstation ID: [id number] Up-to-date CT equipment and radiation dose reduction techniques were employed. CTDIvol: 22.2 - 54.3 mGy. DLP: 3111 mGy-cm. ??The following accession numbers are related to this dose report [id number]: [id number] Up-to-date CT equipment and radiation dose reduction techniques were employed. CTDIvol: 22.2 - 54.3 mGy. DLP: 3111 mGy-cm. ??The following accession numbers are related to this dose report [id number]: [id number] Narrative 06/02/2024 6:31 PM EST COMPARISON: 04/28/2016. [...] are within normal limits. Resulting Agency Comment [id number] Procedure Note Luis Mayfield MD - 06/02/2024 [...] possible to obtain thecompleted interpretation. Workstation ID: [id number] Up-to-date CT equipment and radiation dose reduction techniques wereemployed. CTDIvol: 22.2 - 54.3 mGy. DLP: 3111 mGy-cm. The followingaccession numbers are related to this dose report [id number]: [id number] Up-to-date CT equipment and radiation dose reduction techniques wereemployed. CTDIvol: 22.2 - 54.3 mGy. DLP: 3111 mGy-cm. The followingaccession numbers are related to this dose report [id number]: [id number] Govind Glez MD IMG CT PROCEDURES Final Result * COLONOSCOPY (09/01/2014 [...] were monitored continuously. The CFQ-160L Olympusserial # [id number] was introduced through the anus and advanced [...] Most Recently Relevant to Health Maintenance Insurance [facility] y [address] [id number] [facility] [employer] Advance Directives Documents on File Type Date Recorded Patient Roll On Man Expl anation Advance Directive 08/06/2013 12:00 AM [...] 1:19 AM 06/04/2024 5:36 PM Care Teams Corporate Legal Assistant Relationship Specialty Start Date End Date Bijal Fox, RESEARCH MANAGEMENT ASSOCIATE [address] [place] [id number] PCP - General Family Medicine 05/30/24
--- OUTSIDE RECORDS SUMMARY | 2024-07-10 11:23 | XMS_ITS | Encounter Summary ---
Author Organization [facility] Address [address] [place] [address] Care Team Providers Care Metal Drawer Name Role Phone Unknown Pcp, Non Rmg Primary Care Provider Unava ilable Encounter Details Date Type Department Care Team (Late st Contact Info) Description 02/03/2017 Orders Only [facility] [address] [place] [phone] Unknown Pcp, Non Rmg Social History Tobacco Use Types Packs/Day Years [...] on filedocumented in this encounter Care Teams Metal Drawer Relationship Specialty Start Date End Date Unknown Pcp, Non Rmg PCP - General 02/03/17 documented as of this encounter
--- OUTSIDE RECORDS SUMMARY | 2024-07-10 11:23 | XMS_ITS | Encounter Summary ---
Author Organization [facility] Address [address] [place] [address] Care Team Providers Care Asphalt Paver Name Role Phone Brandyn Pagan MD Primary Care Provider Unavaila Radha Fink NP Unavailable Unavailable Unknown Pcp, Non Rmg Primary Care Provider Unava ilable Encounter Details Date Type Department Care Team (Late st Contact Info) Description 03/18/2016 Orders Only [facility] [address] [place] [address] Radha Spangler NP Social History Tobacco Use [...] Notes * Radha Spangler NP - 04/11/2016 2:12 PM ESTQuick Note: Discussed at ov 04/08/2016-see progress note * Radha Spangler NP - 03/23/2016 8:53 PM EDTQuick Note: Hold for 04/08/16 f/u visit documented in this encounter Plan of Treatment Not on file documented as of this encounter Goals Goal Patient Goal Type Associated Problems Recent Progress Patient-Stated? Author Blood Pressure < 140/90 Blood Pressure 120/73( 017 9:26 AM EDT) No Radha Spangler NP documented as of this encounter Procedures * Due to [place] [employer] law, this organization might not be sharing negative HIV tests. Procedure Name Priority Date/Time Associated Diagnosis Comments ALANINE AMINOTRANSFERASE (ALT), SERUM Routine 03/18/2016 10:02 AM EDT Hyperlipidemia, unspecified hyperlipidemia type CREATINE KINASE (CK), SERUM Routine 03/18/2016 10:02 AM EDT Hyperlipidemia, unspecified hyperlipidemia type LIPID PANEL WITH REFLEX TO DIRECT LDL Routine 03/18/2016 10:02 AM EDT Hyperlipidemia, unspecified hyperlipidemia type BASIC METABOLIC PANEL WITH (GFR) Routine 03/18/2016 10:02 AM EDT Essential hypertension with goal blood pressure less than 140/90 documented in this encounter Results * Due to [place] [employer] law, this organization might not be sharing negative HIV tests. * (ABNORMAL) BASIC METABOLIC PANEL WITH (GFR) (03/18/2016 10:02 AM EDT) Glucose 102(H) 65 - 99 mg/dL [facility] Comment: {GLUCOSE {[id number]) ? Fasting reference interval Urea Nitrogen Blood (BUN) 21 7 - 25 mg/dL [facility] Comment:{UREA NITROGEN (BUN) {[id number]) Creatinine 0.95 0.50 - 0.99 mg/dL [facility] Comment: {CREATININE {[id number]) For patients >49 years of age, the reference limit for Creatinine is approximately 13% higher for people identified as -Emirati. GFR 63 > OR = 60 mL/min/1 .73m2 [facility] Comment:{eGFR NON-AFR. AMERI CAN {[id number]) GFR () 73 > OR = 60 mL/min/1 .73m2 [facility] Comment:{eGFR AMERIC AN {[id number]) BUN/Creatinine Ratio NOT APPLICABLE (calc) [facility] Comment:{BUN/CREATININE RATI O {[id number]) Sodium 139 135 - 146 mmol/L [facility] Comment:{SODIUM {[id number]) Potassium 4.8 3.5 - 5.3 mmol/L [facility] Comment:{POTASSIUM {[id number]) Chloride 106 98 - 110 mmol/L [facility] Comment:{CHLORIDE {[id number]) Carbon dioxide 25 20 - 31 mmol/L [facility] Comment:{CARBON DIOXIDE {[id number]) Calcium 9.3 8.6 - 10.4 mg/dL [facility] Comment:{CALCIUM {[id number]) 03/18/2016 10:0 2 AM EDT 03/18/2016 4:21 PM EDT Narrative [facility] - 03/18/2016 7:45 PM EDT Please note that this estimated [...] needs for GFR calculation. Resulting Agency Comment [id number] Radha Spangler NP LABORATORY Final Result [facility] [address] [place] [address] * (ABNORMAL) CREATINE KINASE (CK), SERUM (03/18/2016 10:02 AM EDT) CPK 196(H) 29 - 143 U/L [facility] Comment:{CREATINE KINASE, TO KENZIE {[id number]) 03/18/2016 10:0 2 AM EDT 03/18/2016 4:21 PM EDT Narrative Resulting Agency Comment [id number] Radha Spangler NP LAB SAME DAY RESULT Final Re sult [facility] [address] [place] [address] * (ABNORMAL) ALANINE AMINOTRANSFERASE (ALT), SERUM (03/18/2016 10:02 AM EDT) ALT (SGPT) 32(H) 6 - 29 U/L [facility] Comment:{ALT {[id number]) 03/18/2016 10:0 2 AM EDT 03/18/2016 4:21 PM EDT Narrative Resulting Agency Comment [id number] Radha Spangler [facility] SAME DAY RESULT Final Re sult Performing Organization Address [facility] Co de Phone Number [facility] [address] [place] [address] * (ABNORMAL) LIPID PANEL WITH REFLEX TO DIRECT LDL (03/18/2016 10:02 AM EDT) Cholesterol 274(H) 125 - 200 mg/dL [facility] Comment:{CHOLESTEROL, TOTAL {[id number]) HDL Cholesterol 74 > OR = 46 mg/dL [facility] Comment:{HDL CHOLESTEROL {[id number]) Triglyceride 165(H) <150 mg/dL [facility] Comment:{TRIGLYCERIDES {[id number]) LDL Cholesterol 167(H) <130 mg/dL (calc) [facility] Comment: {LDL-CHOLESTEROL {[id number]) Desirable range <100 mg/dL for patients with CHD or diabetes and <70 mg/dL for diabetic patients with known heart disease. CHOL/HDL Ratio 3.7 < OR = 5.0 (calc) [facility] Comment:{CHOL/HDLC RATIO {[id number]) Cholesterol Non-HDL 200(H) mg/dL (calc) [facility] Comment: {NON HDL CHOLESTEROL {[id number]) Target for non-HDL cholesterol is 30 mg/dL higher than LDL cholesterol target. 03/18/2016 10:0 2 AM EDT 03/18/2016 4:21 PM EDT Narrative Resulting Agency Comment [id number] Radha Spangler NP LABORATORY Final Result [facility] [address] [place] [address] documented in this encounter Visit Diagnoses Diagnosis Hyperlipidemia, unspecified hyperlipidemia type Essential hypertension with goal blood pressure less than 140/90 documented in this encounter Care Teams Asphalt Paver Relationship Specialty Start Date End Date Brandyn Pagan MD PCP - General Internal Medicine 08/07/15 02/02/17 Radha Spangler NP PCP - Backup PCP Internal Medicine 01/11/16 02/02/17 Unknown Pcp, Non Rmg PCP - General 02/03/17 documented as of this encounter
--- OUTSIDE RECORDS SUMMARY | 2024-07-10 11:23 | XMS_ITS | Encounter Summary ---
Author Organization [facility] Address [address] [place] [address] Care Team Providers Care Consumer Analyst Name Role Phone Barndyn Pagan MD Primary Care Provider Radha Cuevas NP Unavailable Unavailable Unknown Pcp, Non Rmg Primary Care Provider Unava ilable Reason for Referral * CONSULT AND TREATMENT (Routine) - Closed Specialty Diagnoses / Procedures Referred By Contadam t Referred To Contact Chiropractic Diagnoses Back pain, unspecified back location, unspecified back pain laterality, unspecified chronicity Brandyn Pagan MD [place], [address] [place] [address] Phone: tel: fax: Referral ID Status Reason Start Date Expiration Date V isits Requested Visits Authorized [id number] Closed Chiropractor 01/27/2017 05/21/2017 1 1 Encounter Details Date Type Department Care Team (Late st Contact Info) Description 01/27/2017 Orders Only [facility] [address] [place] [phone] Brandyn Pagan MD Social History Tobacco Use [...] as of this encounter Plan of Treatment Scheduled Referrals Name Type Priority Associated Diagnoses Orde r Schedule CONSULT CHIROPRACTIC NON-FC Referral Routine Back pain, unspecified back location, unspecified back pain laterality, unspecified chronicity Ordered: 01/27/2017 documented as of this encounter Goals Goal Patient Goal Type Associated Problems Recent Progress Patient-Stated? Author Blood Pressure < 140/90 Blood Pressure 120/73( 017 9:26 AM EDT) No Radha Spangler NP documented as of this encounter Visit Diagnoses Diagnosis Back pain, unspecified back location, unspecified back pain laterality, unspecified chronicity documented in this encounter Care Teams Consumer Analyst Relationship Specialty Start Date End Date Brandyn Pagan MD PCP - General Internal Medicine 08/07/15 02/02/17 Radha Spangler NP PCP - Backup PCP Internal Medicine 01/11/16 02/02/17 Unknown Pcp, Non Rmg PCP - General 02/03/17 documented as of this encounter
--- OUTSIDE RECORDS SUMMARY | 2024-07-10 11:23 | XMS_ITS | Encounter Summary ---
Author Organization [facility] Address [address] [place] [address] Care Team Providers Care Scientific Specialist Name Role Phone Brandyn Pagan MD Primary Care Provider Unavaila Radha Fink NP Unavailable Unavailable Unknown Pcp, Non Rmg Primary Care Provider Unava ilable Encounter Details Date Type Department Care Team (Late st Contact Info) Description 09/21/2016 Orders Only [facility] [address] [place] [address] Radha Spangler NP Social History Tobacco Use [...] Progress Notes * Radha Spangler NP - 12/12/2016 5:38 PM EDT Discussed results at [facility] today * Radha Spangler NP - 11/02/2016 1:00 PM EDT Okay to hold for 12/12/2016 OV documented in this encounter Plan of Treatment Not on file documented as of this encounter Goals Goal Patient Goal Type Associated Problems Recent Progress Patient-Stated? Author Blood Pressure < 140/90 Blood Pressure 120/73( 017 9:26 AM EDT) Radha Zelaya, MEY documented as of this encounter Procedures * Due to [place] law, this organization might not be sharing negative HIV tests. Procedure Name Priority Date/Time Associated Diagnosis Comments ALANINE AMINOTRANSFERASE (ALT), SERUM Routine 09/21/2016 1:41 PM EDT Hyperlipidemia, unspecified hyperlipidemia type LIPID PANEL WITH REFLEX TO DIRECT LDL Routine 09/21/2016 1:41 PM EDT Hyperlipidemia, unspecified hyperlipidemia type documented in this encounter Results * Due to [place] law, this organization might not be sharing negative HIV tests. * ALANINE AMINOTRANSFERASE (ALT), SERUM (09/21/2016 1:41 PM EDT) ALT (SGPT) 25 6 - 29 U/L [facility] 09/21/2016 1:41 PM EDT 09/21/2016 6:16 PM EDT Narrative Resulting Agency Comment [id number] Radha Spangler AUTOCAD OPERATOR LAB SAME DAY RESULT Final Re sult [facility] [address] [place] [address] * (ABNORMAL) LIPID PANEL WITH REFLEX TO DIRECT LDL (09/21/2016 1:41 PM EDT) Cholesterol 233(H) 125 - 200 mg/dL [facility] HDL Cholesterol 70 > OR = 46 mg/dL [facility] Triglyceride 123 <150 mg/dL [facility] LDL Cholesterol 138(H) <130 mg/dL (calc) [facility] Comment: Desirable range <100 mg/dL for patients with CHD or diabetes and <70 mg/dL for diabetic patients with known heart disease. CHOL/HDL Ratio 3.3 < OR = 5.0 (calc) [facility] Cholesterol Non-HDL 163(H) mg/dL (calc) [facility] Comment: Target for non-HDL cholesterol is 30 mg/dL higher than LDL cholesterol target. 09/21/2016 1:41 PM EDT 09/21/2016 6:16 PM EDT Narrative Resulting Agency Comment [id number] Radha Spangler NP LABORATORY Final Result [facility] [address] [place] [address] documented in this encounter Visit Diagnoses Diagnosis Hyperlipidemia, unspecified hyperlipidemia type documented in this encounter Care Teams Scientific Specialist Relationship Specialty Start Date End Date Brandyn Pagan MD PCP - General Internal Medicine 08/07/15 02/02/17 Rahda Spangler NP PCP - Backup PCP Internal Medicine 01/11/16 02/02/17 Unknown Pcp, Non Rmg PCP - General 02/03/17 documented as of this encounter
--- OUTSIDE RECORDS SUMMARY | 2024-07-10 11:23 | XMS_ITS | Encounter Summary ---
Author Organization [facility] Address [address] [place] [address] Care Team Providers Care It Quality Assurance Analyst Name Role Phone Unknown Pcp, Non Rmg Primary Care Provider Unava ilable Reason for Referral * CONSULT AND TREATMENT (Routine) - Canceled Specialty Diagnoses / Procedures Referred By Contac t Referred To Contact Chiropractic Diagnoses S/P hip replacement, unspecified laterality Flat foot (pes planus) (acquired), left foot Back pain, unspecified back location, unspecified back pain laterality, unspecified chronicity Brandyn Pagan MD Referral ID Status Reason Start Date Expiration Date Visits Requested Visits Authorized [id number] Canceled Service Not Available at Clinic 02/03/2017 1 1 Encounter Details Date Type Department Care Team (Late st Contact Info) Description 02/03/2017 Orders Only [facility] [address] [place] [address] Brandyn Pagan MD Social History Tobacco Use [...] r Schedule CONSULT CHIROPRACTIC NON-FC Referral Routine S/P hip replacement, unspecified laterality Flat foot (pes planus) (acquired), left foot Back pain, unspecified back location, unspecified back pain laterality, unspecified chronicity Ordered: 02/03/2017 documented as of this encounter Goals Goal Patient Goal Type Associated Problems Recent Progress Patient-Stated? Author Blood Pressure < 140/90 Blood Pressure 120/73( 017 9:26 AM EDT) No Radha Spangler NP documented as of this encounter Visit Diagnoses Diagnosis S/P hip replacement, unspecified laterality Flat foot (pes planus) (acquired), left foot Back pain, unspecified back location, unspecified back pain laterality, unspecified chronicity documented in this encounter Care Teams It Quality Assurance Analyst Relationship Specialty Start Date End Date Unknown Pcp, Non Rmg PCP - General 02/03/17 documented as of this encounter
== END 2024-07-10 12:02 | disposition home or self-care (01) ==
PROVIDERS: Visit Provider Physician Assistant
DX: G95.9 Disease of spinal cord, unspecified (principal)
CPT/HCPCS: 99204

== ENCOUNTER → 2024-07-10 11:32 | Outpatient (BNV) | payer MEDICARE, SELFPAY | PROVIDERS: Visit Provider Radiology Diagnostic Radiology | DX: M47.892 Other spondylosis, cervical region (principal) | CPT/HCPCS: 72050 ==

== ENCOUNTER 2024-07-12 10:16 | Outpatient (REF) | payer MEDICARE, SELFPAY ==
--- NOTE | ~2024-07-12 | MR_ITS ---
EXAMINATION: MR CERVICAL SPINE WITHOUT CONTRAST CLINICAL INFORMATION: Disease of the spinal cord, unspecified. COMPARISON: No priors. Correlated to cervical spine x-ray dated June 09, 2024 demonstrated cervical fusion C5-6 and questionable mild instability at C3-4. TECHNIQUE: MRI of the cervical spine was obtained using routine sequences without contrast. FINDINGS: Paramagnetic field distortion secondary to metallic hardware at C5-6. Limited by patient's motion artifact. The cervical spinal cord signal is normal. No bone marrow STIR signal abnormality. Craniocervical junction is intact. Grade 1 anterolisthesis C3-4. Multilevel disc desiccation. Grade 1 anterolisthesis, T1-T2 and T2-3. C2-3: No disc herniation. No cord compression. Bilateral facet joint hypertrophy. Right neuroforamina narrowing on a degenerative basis. C3-4: Grade 1 anterolisthesis. Partial effacement of the ventral aspect of the thecal sac abutting the cord. Facet joint hypertrophy bilaterally resulting in bilateral neuroforamina stenosis. C4-5: Broad-based disc osteophyte complex formation more conspicuous to the right subarticular surface abutting the cord without cord signal abnormality. Facet joint hypertrophy bilaterally. Bilateral neuroforamina narrowing. C5-6: Postsurgical changes. No cord compression. No cord signal abnormality. Facet joint hypertrophy. Bilateral neuroforamina narrowing more conspicuous on the left side. C6-7: Right-sided disc osteophyte complex formation abutting the cord. No cord signal abnormality. Facet joint hypertrophy. Bilateral neuroforamina narrowing. C7-T1: No disc herniation. No neuroforamina stenosis. No prevertebral compartment hematoma mass or fluid collection. Flow-void signal within the main vessels is normal. Codominant vertebral arteries. MR/MR cervical spine wo con IMPRESSION: Grade 1 anterolisthesis C3-4 resulting in mild central spinal canal stenosis and bilateral neuroforamina stenosis without cord compression, edema and or myelopathy. No cervical myelopathy/myelomalacia. Central spinal canal stenosis C4-5, C3-4 and C6-7 on a multifactorial basis. Multilevel bilateral neuroforamina stenosis more conspicuous at C3-4. Electronically signed by: Micah Heller MD 07/12/2024 11:31 AM EST
--- OUTSIDE RECORDS SUMMARY | 2024-07-12 11:01 | XMS_ITS | Encounter Summary ---
Author Organization [facility] Address [address] [place] [address] Care Team Providers Care Transportation Museum Helper Name Role Phone Brandyn Pagan MD Primary Care Provider Unavaila Radha Fink NP Unavailable Unavailable Unknown Pcp, Non Rmg Primary Care Provider Unava ilable Encounter Details Date Type Department Care Team (Late st Contact Info) Description 11/02/2015 Orders Only [facility] [address] [place] [address] Radha Spangler NP Social History Tobacco Use [...] of this encounter Procedures * Due to [place] [employer] law, this organization might not be sharing negative HIV tests. Procedure Name Priority Date/Time Associated Diagnosis Comments ALANINE AMINOTRANSFERASE (ALT), SERUM Routine 11/02/2015 12:44 PM EDT Hyperlipidemia, unspecified hyperlipidemia type CREATINE KINASE (CK), SERUM Routine 11/02/2015 12:44 PM EDT Hyperlipidemia, unspecified hyperlipidemia type documented in this encounter Results * Due to [place] [employer] law, this organization might not be sharing negative HIV tests. * CREATINE KINASE (CK), SERUM (11/02/2015 12:44 PM EDT) CPK 106 29 - 143 U/L [facility] Comment:{CREATINE KINASE, TO KENZIE {[id number]) 11/02/2015 12:4 4 PM EDT 11/03/2015 2:14 AM EDT Narrative Resulting Agency Comment [id number] Radha Spangler [facility] SAME DAY RESULT Final Re sult [facility] [address] [place] [address] * ALANINE AMINOTRANSFERASE (ALT), SERUM (11/02/2015 12:44 PM EDT) ALT (SGPT) 22 6 - 29 U/L [facility] Comment:{ALT {[id number]) 11/02/2015 12:4 4 PM EDT 11/03/2015 2:14 AM EDT Narrative Resulting Agency Comment [id number] us Radha Spangler [facility] SAME DAY RESULT Final Re sult [facility] [address] [place] [address] documented in this encounter Visit Diagnoses Diagnosis Hyperlipidemia, unspecified hyperlipidemia type documented in this encounter Care Teams Transportation Museum Helper Relationship Specialty Start Date End Date Brandyn Pagan MD PCP - General Internal Medicine 08/07/15 02/02/17 Radha Spangler NP PCP - Backup PCP Internal Medicine 01/11/16 02/02/17 Unknown Pcp, Non Rmg PCP - General 02/03/17 documented as of this encounter
--- OUTSIDE RECORDS SUMMARY | 2024-07-12 11:01 | XMS_ITS | Encounter Summary ---
Author Organization [facility] Address [address] [place] [address] Care Team Providers Care Storage Battery Inspector And Tester Name Role Phone Brandyn Pagan MD Primary Care Provider Radha Cuevas NP Unavailable Unavailable Unknown Pcp, Non Rmg Primary Care Provider Unava ilable Encounter Details Date Type Department Care Team (Late st Contact Info) Description 10/06/2015 Orders Only [facility] [address] [place] [address] Brandyn Pagan MD Social History Tobacco Use [...] proper risk profile. I cannot run the [place] [employer] risk calculator. The decision related [...] this encounter Procedures * Due to [place] [employer] law, this organization might not be sharing [...] this encounter Results * Due to [place] [employer] law, this organization might not be sharing negative HIV tests. * (ABNORMAL) URINALYSIS, DIP ONLY ( SITE STAT ONLY) (10/06/2015 11:19 AM EDT) COLOR (URINE) YELLOW [facility] (CLIA# [id number]) APPEARANCE (URINE) CLOUDY [facility] (CLIA# [id number]) SPECIFIC GRAVITY 1.020 1.001 - 1.035 [facility] (CLIA# [id number]) PH (URINE) 5.0 5.0 - 8.0 [facility] (CLIA# [id number]) PROTEIN (URINE) TRACE(A) Neg [facility] (CLIA# [id number]) GLUCOSE (URINE) NEGATIVE Neg [facility] (CLIA# [id number]) Ketones (Urine) NEGATIVE Neg [facility] (CLIA# [id number]) BILIRUBIN (URINE) NEGATIVE Neg [facility] (CLIA# [id number]) BLOOD (URINE) NEGATIVE Neg [facility] (CLIA# [id number]) Leukocyte esterase (Urine) 1+(A) [facility] (CLIA# [id number]) NITRITE (URINE) POSITIVE(A) Neg [facility] (CLIA# [id number]) Urine specimen obtained by clean catch procedure (specimen) 10/06/2015 11:19 AM EDT Narrative [facility] (CLIA# [id number]) - 10/06/2015 11:19 AM EDT Micro and culture already ordered per provider. us Brandyn Pagan MD LAB SAME DAY RESULT Final Resul t [facility] (CLIA# [id number]) [address] [place] [address] * (ABNORMAL) CULTURE, URINE, ROUTINE (10/06/2015 10:11 AM EDT) Pathologist [facility] Bacteria culture (Urine) SEE NOTE(A) [facility] Comment: {CULTURE, URINE, ROUTINE {[id number]) ??CULTURE, URINE, ROUTINE ??MICRO NUMBER: ?[id number] ??TEST STATUS: ? FINAL ??SPECIMEN SOURCE: ?? [...] 6:19 PM EDT Narrative Resulting Agency Comment [id number] Brandyn Pagan MD LABORATORY Final Result Performing Organization Address City/State/[facility] Co de Phone Number [facility] [address] [place] [address] * (ABNORMAL) URINALYSIS, MICROSCOPIC (10/06/2015 10:11 AM EDT) WBC (Urine) 20-40(A) < OR = 5 /HPF [facility] Comment:{WBC {[id number]) RBC (Urine Sed) 0-2 < OR = 2 /HPF [facility] Comment:{RBC {[id number]) Epithelial cells.squamous (Urine sed) NONE SEEN < OR = 5 /HPF [facility] Comment:{SQUAMOUS EPITHELIAL CELLS {[id number]) Bacteria (Urine) MANY(A) NONE SEEN /HPF [facility] Comment:{BACTERIA {[id number]) Hyaline casts (Urine sed) NONE SEEN NONE SEEN /LPF [facility] Comment:{HYALINE CAST {[id number]) 10/06/2015 10:1 1 AM EDT 10/06/2015 6:19 PM EDT Narrative Resulting Agency Comment [id number] Brandyn Pagan MD LAB SAME DAY RESULT Final Resul t Performing Organization Address City/[facility] Co de Phone Number [facility] [address] [place] [address] * GLUCOSE (BLOOD) (10/06/2015 10:11 AM EDT) Glucose 86 65 - 99 mg/dL [facility] Comment: {GLUCOSE {[id number]) ? Fasting reference interval 10/06/2015 10:1 1 AM EDT 10/06/2015 6:19 PM EDT Narrative Resulting Agency Comment [id number] Brandyn Pagan MD LAB SAME DAY RESULT Final Resul t Performing Organization Address [facility] de Phone Number [facility] [address] [place] [address] * (ABNORMAL) LIPID PANEL WITH REFLEX TO DIRECT LDL (10/06/2015 10:11 AM EDT) Cholesterol 243(H) 125 - 200 mg/dL [facility] Comment:{CHOLESTEROL, TOTAL {[id number]) HDL Cholesterol 71 > OR = 46 mg/dL [facility] Comment:{HDL CHOLESTEROL {[id number]) Triglyceride 163(H) <150 mg/dL [facility] Comment:{TRIGLYCERIDES {[id number]) LDL Cholesterol 139(H) <130 mg/dL (calc) [facility] Comment: {LDL-CHOLESTEROL {[id number]) Desirable range <100 mg/dL for patients with CHD or diabetes and <70 mg/dL for diabetic patients with known heart disease. CHOL/HDL Ratio 3.4 < OR = 5.0 (calc) [facility] Comment:{CHOL/HDLC RATIO {[id number]) Cholesterol Non-HDL 172(H) mg/dL (calc) [facility] Comment: {NON HDL CHOLESTEROL {[id number]) Target for non-HDL cholesterol is 30 mg/dL higher than LDL cholesterol target. 10/06/2015 10:1 1 AM EDT 10/06/2015 6:19 PM EDT Narrative Resulting Agency Comment [id number] Brandyn Pagan MD LABORATORY Final Result Performing Organization Address City/State/[facility] Co de Phone Number [facility] [address] [place] [address] documented in this encounter Visit Diagnoses Diagnosis Lipid screening Screening for lipoid disorders Screening for cardiovascular condition Screening for other and unspecified cardiovascular conditions Screening for diabetes mellitus Urinary tract infection, site unspecified documented in this encounter Care Teams Storage Battery Inspector And Tester Relationship Specialty Start Date End Date Brandyn Pagan MD PCP - General Internal Medicine 08/07/15 02/02/17 Radha Spangler NP PCP - Backup PCP Internal Medicine 01/11/16 02/02/17 Unknown Pcp, Non Rmg PCP - General 02/03/17 documented as of this encounter
--- OUTSIDE RECORDS SUMMARY | 2024-07-12 11:02 | XMS_ITS | Encounter Summary ---
Author Organization [facility] Address [address] [place] [address] Care Team Providers Care Web Portal Developer Name Role Phone Brandyn Pagan MD Primary Care Provider Unavaila Radha Fink NP Unavailable Unavailable Unknown Pcp, Non Rmg Primary Care Provider Unava ilable Encounter Details Date Type Department Care Team ([facility] st Contact Info) Description 12/29/2015 Orders Only [facility] [address] [place] [address] Radha Spangler NP Social History Tobacco Use [...] this encounter Procedures * Due to [place] [employer] law, this organization might not be sharing [...] this encounter Results * Due to [place] [employer] law, this organization might not be sharing negative HIV tests. * (ABNORMAL) BASIC METABOLIC PANEL WITH (GFR) (12/29/2015 10:04 AM EDT) Glucose 98 65 - 99 mg/dL [facility] Comment: {GLUCOSE {[id number]) ? Fasting reference interval Urea Nitrogen Blood (BUN) 22 7 - 25 mg/dL [facility] Comment:{UREA NITROGEN (BUN) {[id number]) Creatinine 1.20(H) 0.50 - 0.99 mg/dL [facility] Comment: {CREATININE {[id number]) For patients >49 years of age, the reference limit for Creatinine is approximately 13% higher for people identified as -[place]. GFR 48(L) > OR = 60 mL/min/1. 73m2 [facility] Comment:{eGFR NON-AFR. AMERI CAN {[id number]) GFR () 55(L) > OR = 60 mL/min/1. 73m2 [facility] Comment:{eGFR AMERIC AN {[id number]) BUN/Creatinine Ratio 18 6 - 22 (calc) [facility] Comment:{BUN/CREATININE RATI O {[id number]) Sodium 138 135 - 146 mmol/L [facility] Comment:{SODIUM {[id number]) Potassium 5.1 3.5 - 5.3 mmol/L [facility] Comment:{POTASSIUM {[id number]) Chloride 106 98 - 110 mmol/L [facility] Comment:{CHLORIDE {[id number]) Carbon dioxide 25 20 - 31 mmol/L [facility] Comment:{CARBON DIOXIDE {[id number]) Calcium 9.7 8.6 - 10.4 mg/dL [facility] Comment:{CALCIUM {[id number]) 12/29/2015 10:0 4 AM EDT 12/29/2015 [...] NP LABORATORY Final Result [facility] [address] [place] [address] * (ABNORMAL) LIPID PANEL WITH REFLEX TO DIRECT LDL (12/29/2015 10:04 AM EDT) Cholesterol 232(H) 125 - 200 mg/dL [facility] Comment:{CHOLESTEROL, TOTAL {[id number]) HDL Cholesterol 80 > OR = 46 mg/dL [facility] Comment:{HDL CHOLESTEROL {[id number]) Triglyceride 112 <150 mg/dL [facility] Comment:{TRIGLYCERIDES {[id number]) LDL Cholesterol 130(H) <130 mg/dL (calc) [facility] Comment: {LDL-CHOLESTEROL {[id number]) Desirable range <100 mg/dL for patients with CHD or diabetes and <70 mg/dL for diabetic patients with known heart disease. CHOL/HDL Ratio 2.9 < OR = 5.0 (calc) [facility] Comment:{CHOL/HDLC RATIO {[id number]) Cholesterol Non-HDL 152 mg/dL (calc) [facility] Comment: {NON HDL CHOLESTEROL {[id number]) Target for non-HDL cholesterol is 30 mg/dL higher than LDL cholesterol target. 12/29/2015 10:0 4 AM EDT 12/29/2015 3:11 PM EDT Narrative Resulting Agency Comment [id number] Radha Spangler NP LABORATORY Final Result Performing Organization Address City/[facility]/ZIP Co de Phone Number [facility] [address] [place] [phone] * ALANINE AMINOTRANSFERASE (ALT), SERUM (12/29/2015 10:04 AM EDT) ALT (SGPT) 25 6 - 29 U/L [facility] Comment:{ALT {[id number]) 12/29/2015 10:0 4 AM EDT 12/29/2015 3:11 PM EDT Narrative Resulting Agency Comment [id number] Radha Spangler NP LAB SAME DAY RESULT Final Re sult Performing Organization Address City/[facility] Co de Phone Number [facility] [address] [place] [address] documented in this encounter Visit Diagnoses Diagnosis Cervicodynia Cervicalgia Hyperlipidemia, unspecified hyperlipidemia type Essential hypertension with goal blood pressure less than 140/90 documented in this encounter Care Teams Web Portal Developer Relationship Specialty Start Date End Date Brandyn Pagan MD PCP - General Internal Medicine 08/07/15 02/02/17 Radha Spangler NP PCP - Backup PCP Internal Medicine 01/11/16 02/02/17 Unknown Pcp, Non Rmg PCP - General 02/03/17 documented as of this encounter
--- OUTSIDE RECORDS SUMMARY | 2024-07-12 11:02 | XMS_ITS | Encounter Summary ---
Author Organization [facility] Address [address] [place] [address] Care Team Providers Care Landscape Gardener Name Role Phone Bijal Fox HOIST OPERATOR Primary Care Provider Reason for Visit * Reason Onset Date Comments TCM 06/24/2024 Encounter Details Date Type Department Care Team ([facility] st Contact Info) Description 06/24/[address] Cardiology 100 [facility] [address] [place] [address] Elise Boykin MA TCM Social History Tobacco Use Types Packs/Day Years Used Date Smoking Tobacco: Former Smokeless Tobacco: Never Comments:: Alcohol Use Standard Drinks/Week Comments Not Currently 0 (1 standard drink = 0.6 oz pur e alcohol) [facility] Utilities Answer Date Recorded In the past [...] unable to afforded. * Telephone Encounter - Yseika Holder RN - 06/28/2024 1:25 PM EST [...] DISCHARGE INFORMATION Genie was discharged from a [facility] on 06/26/24 Last Hospital Admission Date Complaint Diagnosis Type Department Provider 06/15/24 SOB ED to Hosp-Admission (Discharged) (Admit) SB 2 Rogers Mendenhall MD; Kevin Newsome,... MEDICATION REVIEW The [...] now? Needs Eliquis script and unable to car pick up driver Lokelma due to cost-message forwarded to Mabel. [...] Regarding: TCM ----- Message ----- From: Stephanie Hmapton MD Sent: 06/21/2024 10:05 AM EST To: [...] Info) Description 08/01/2024 2:00 PM EDT Follow-Up [facility] Nephrology [address] [place] [address] [address] [place] [address] John Hendricks MD [address] [address] 01/08/2025 10:00 AM EDT Follow-Up [address] Cardiology [address] [place] [address] Mabel Onofre NP [address] [place] [address] [address] [place] [address] documented as of this encounter Results * Due to [place] state law, this organization might not be sharing negative HIV tests. * N-terminal ProBrain Natriuretic Peptide (07/01/2024 8:39 AM EST) Pro-B-Type Natriuretic Peptide 288 <=900 pg/mL 07/01/2024 9:39 AM EST [facility] Comment: RULE IN CHF >/= [...] EST 07/01/2024 9:05 AM EST Mabel Onofre HOIST OPERATOR LAB BLOOD ORDERABLES Final Result [facility] [address] [place] [address], [place] [phone] * (ABNORMAL) Basic metabolic panel (07/01/2024 8:39 AM EST) NA 140 136 - 145 mmol/L 07/01/2024 9:36 AM EST [facility] K 5.3(H) 3.5 - 5.1 mmol/L 07/01/2024 9:36 AM EST [facility] Cl 102 98 - 109 mmol/L 07/01/2024 9:36 AM EST [facility] CO2 29 22 - 32 mmol/L 07/01/2024 9:36 AM EST [facility] BUN 34(H) 8 - 23 mg/dL 07/01/2024 9:36 AM EST [facility] Creatinine 1.27(H) 0.50 - 1.12 mg/dL 07/01/2024 9:36 AM EST [facility] Glucose 113(H) 60 - 99 mg/dL 07/01/2024 9:36 AM EST [facility] Calcium 8.9 8.4 - 10.4 mg/dL 07/01/2024 9:36 AM EST [facility] Anion Gap 14 >=0 07/01/2024 9:36 AM EST [facility] eGFR 45(L) >=60 mL/min/1. 73m2 07/01/2024 9:36 AM EST [facility] Comment:The estimated glomer ular filtration [...] Onofre NP LAB BLOOD ORDERABLES Final Result [facility] [address] [place] [address], documented in this encounter Visit Diagnoses Diagnosis Diastolic heart failure, unspecified HF chronicity (HCC)- Primary Atrial fibrillation, unspecified type (HCC) documented in this encounter Care Teams Landscape Gardener Relationship Specialty Start Date End Date Bijal Fox NP 100 [facility] [address] [place] [address] PCP - General Family Medicine 05/30/24 documented as of this encounter
--- OUTSIDE RECORDS SUMMARY | 2024-07-12 11:02 | XMS_ITS | Encounter Summary ---
Author Organization [facility] Address [address] [place] [address] Care Team Providers Care Gold Tooler Name Role Phone Bijal Fox NP Primary Care Provider [phone] Encounter Details Date Type Department Care Team (Late st Contact Info) Description 07/03/2024 Telephone [facility] Case Management Department [address] [place] [address] Mariajose Calvillo RN Social History Tobacco Use Types Packs/Day Years Used Date Smoking Tobacco: Former Smokeless Tobacco: Never Comments:: Alcohol Use Standard Drinks/Week Comments Not Currently 0 (1 standard drink = 0.6 oz pur e alcohol) [facility] Utilities Answer Date Recorded In [...] CHF Patient Call: This Chronic Disease Nurse Match Up Worker called and 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 She tells this card writer hand she is doing well. She was at the pharmacy picking up her prescription for her nebulizer medication, she has been working with PT/OT through [facility]. She does still get a little shortness of breath with exertion, but no issues at rest or when laying down. She will be changing insurances on 07/20/24 to [employer]. Did you review the COPD educational material given to you in the hospital? Yes Are you monitoring your triggers? Yes Are you having any shortness of breath, wheezing, coughing? Shortness of breath with exertion only Are you having any difficulty breathing when lying down? No Are you doing the pursed lip/diaphragm breathing? Reviewed again Did you contact your PCP or Primary Substance Abuse Counselor regarding your breathing issues? NA You have a follow up appointment with your PCP on: Was seen 07/02/24 You have a follow up appointment with your Primary Substance Abuse Counselor on: The PCP is supposed to make [...] the home sanitized, avoiding sick contacts, using tobacco stripper when out in the community) Are you [...] more than 64 ounces per day) This card writer hand sent a secure chat to the [facility] team and asked them to reach out [...] Description 08/01/2024 2:00 PM EDT Follow-Up [facility] Nephrology 100 [facility] [address] [place] [address] John Hendricks MD [address] [address] 01/08/2025 10:00 AM EDT Follow-Up [facility] 100 [facility] Cardiology 100 [facility] [address] [place] [address] Mabel Onofre NP [address] [place] [address] [address] [place] [address] documented as of this encounter Visit Diagnoses Not on filedocumented in this encounter Care Teams Gold Tooler Relationship Specialty Start Date End Date Bijal Fox NP [address] [place] [address] [address] [place] [address] PCP - General Family Medicine 05/30/24 documented as of this encounter
--- OUTSIDE RECORDS SUMMARY | 2024-07-12 11:02 | XMS_ITS | Encounter Summary ---
Author Organization [facility] Address [address] [place] [address] Care Team Providers Care Bulker Name Role Phone Bijal Fox WEB SITE MANAGER Primary Care Provider [phone] Encounter Details Date Type Department Care Team (Late st Contact Info) Description 07/04/2024 Orders Only [facility] [address] [place] [address] Magy Sawyer NP 100 [facility] [address] [place] [phone] Hyperlipidemia, unspecified hyperlipidemia type (Primary Dx); Myxedema heart disease Social History Tobacco Use Types Packs/Day Years Used Date Smoking Tobacco: Former Smokeless Tobacco: Never Comments:: Alcohol Use Standard Drinks/Week Comments Not Currently 0 (1 standard drink = 0.6 oz pur e alcohol) [facility] Utilities Answer Date Recorded In the past 12 months has th e [employer], gas, oil, or water edelight threatened to shut off services in your [...] Upcoming Encounters Date Type Department Care Team ([facility] st Contact Info) Description 08/01/2024 2:00 PM EDT Follow-Up [facility] Nephrology [address] [place] [address] [address] [place] [address] John Hendricks MD [address] [place] [address] 01/08/2025 10:00 AM EDT Follow-Up [address] Cardiology 100 [facility] [address] [place] [address] Mabel Onofre NP [address] [place] [address] Scheduled Orders Name Type Priority Associated Diagnoses [...] hypothyroidism documented in this encounter Care Teams Bulker Relationship Specialty Start Date End Date Bijal Fox NP [address] [place], [place] [address] [place] [address] PCP - General Family Medicine 05/30/24 documented as of this encounter
--- OUTSIDE RECORDS SUMMARY | 2024-07-12 11:02 | XMS_ITS | Encounter Summary ---
Author Organization [facility] Address [address] [place] [address] Care Team Providers Care Shipping Support Clerk Name Role Phone Bijal Fox WORKFORCE PLANNER Primary Care Provider [phone] Encounter Details Date Type Department Care Team (Late st Contact Info) Description 06/23/2024 Lab Requisition [facility] Lab [address] [place] [address] Mj Mendenhall MD [address] [place] [address] Pneumonia due to other specified infectious organisms [...] Info) Description 08/01/2024 2:00 PM EDT Follow-Up [facility] Nephrology [address] [place] [address] [address] [place] [address] John Hendricks MD [address] [address] 01/08/2025 10:00 AM EDT Follow-Up [address] Cardiology 100 [facility] 205 [place] [address] Mabel Onofre NP 100 [facility] 205 [place] [address] documented as of this encounter Procedures * Due to [facility] law, this organization might not be sharing negative HIV tests. Procedure Name Priority Date/Time Associated Diagnosis Comments VITAMIN D, 25-HYDROXY, TOTAL, IMMUNOASSAY Routine 06/23/2024 6:00 AM EST Pneumonia due to other specified infectious organisms documented in this encounter Results * Due to [facility] law, this organization might not be sharing negative HIV tests. * (ABNORMAL) Vitamin D, 25-Hydroxy, Total, Immunoassay (06/23/2024 6:00 AM EST) Vitamin D 25-OH 21.50(L) 30.00 - 80.00 ng/mL 06/23/2024 8:52 AM EST [facility] Blood Structure of peripheral vein / Unknown 06/23/2024 6:00 AM EST 06/23/2024 7:54 AM EST us Mj Mendenhall MD LAB BLOOD ORDERABLES Final R esult [facility] [address] [facility] [address] [place] [address], documented in this encounter Visit Diagnoses Diagnosis Pneumonia due to other specified infectious organisms documented in this encounter Care Teams Shipping Support Clerk Relationship Specialty Start Date End Date Bijal Fox, MEY 100 [facility] [address] [place] [address] PCP - General Family Medicine 05/30/24 documented as of this encounter
--- OUTSIDE RECORDS SUMMARY | 2024-07-12 11:02 | XMS_ITS | Encounter Summary ---
Author Organization [facility] Address [address] [place] [address] Care Team Providers Care Educational Adviser Name Role Phone Barndyn Pagan MD Primary Care Provider Unavaila Radha Fink NP Unavailable Unavailable Unknown Pcp, Non Rmg Primary Care Provider Unava ilable Encounter Details Date Type Department Care Team (Late st Contact Info) Description 01/08/2016 Orders Only [facility] [address] [place] [phone] Brandyn Pagan MD Social History Tobacco Use [...] on filedocumented in this encounter Care Teams Educational Adviser Relationship Specialty Start Date End Date Brandyn Pagan MD PCP - General Internal Medicine 08/07/15 02/02/17 Radha Spangler NP PCP - Backup PCP Internal Medicine 01/11/16 02/02/17 Unknown Pcp, Non Rmg PCP - General 02/03/17 documented as of this encounter
--- OUTSIDE RECORDS SUMMARY | 2024-07-12 11:02 | XMS_ITS | Encounter Summary ---
Author Organization [facility] Address [address] [place] [address] Care Team Providers Care Registration Specialist Name Role Phone Brandyn Pagan MD Primary Care Provider Radha Cuevas NP Unavailable Unavailable Unknown Pcp, Non Rmg Primary Care Provider Unava ilable Encounter Details Date Type Department Care Team (Late st Contact Info) Description 11/13/2015 Orders Only [facility] [address] [place] [address] Brandyn Pagan MD Social History Tobacco Use [...] this encounter Procedures * Due to [employer] law, this organization might not be sharing [...] this encounter Results * Due to [place] [employer] law, this organization might not be sharing negative HIV tests. * (ABNORMAL) URINALYSIS, DIP ONLY ( SITE STAT ONLY) (11/13/2015 1:00 PM EDT) COLOR (URINE) YELLOW [facility] (CLIA# [id number]) APPEARANCE (URINE) CLEAR [facility] (CLIA# [id number]) SPECIFIC GRAVITY 1.015 1.001 - 1.035 [facility] (CLIA# [id number]) PH (URINE) 6.0 5.0 - 8.0 [facility] (CLIA# [id number]) PROTEIN (URINE) NEGATIVE Neg [facility] (CLIA# [id number]) GLUCOSE (URINE) NEGATIVE Neg [facility] (CLIA# [id number]) Ketones (Urine) NEGATIVE Neg [facility] (CLIA# [id number]) BILIRUBIN (URINE) NEGATIVE Neg [facility] (CLIA# [id number]) BLOOD (URINE) NEGATIVE Neg [facility] (CLIA# [id number]) Leukocyte esterase (Urine) 1+(A) [facility] (CLIA# [id number]) NITRITE (URINE) NEGATIVE Neg [facility] (CLIA# [id number]) Urine specimen obtained by clean catch procedure (specimen) 11/13/2015 1:00 PM EDT Narrative [facility] (CLIA# [id number]) - 11/13/2015 1:00 PM EDT Micro and culture already ordered per provider. us Brandyn Pagan MD LAB SAME DAY RESULT Final Resul t [facility] (CLIA# [id number]) [address] [place] [address] * CREATINE KINASE (CK), SERUM (11/13/2015 12:24 PM EDT) CPK 143 29 - 143 U/L [facility] Comment:{CREATINE KINASE, TO KENZIE {[id number]) 11/13/2015 12:2 4 PM EDT 11/13/2015 10:19 PM EDT Narrative Resulting Agency Comment [id number] us Brandyn Pagan MD LAB SAME DAY RESULT Final Resul t Performing Organization Address [facility] de Phone Number [facility] [address] [place] [address] * ALANINE AMINOTRANSFERASE (ALT), SERUM (11/13/2015 12:24 PM EDT) ALT (SGPT) 29 6 - 29 U/L [facility] Comment:{ALT {[id number]) 11/13/2015 12:2 4 PM EDT 11/13/2015 10:19 PM EDT Narrative Resulting Agency Comment [id number] Brandyn Pagan MD LAB SAME DAY RESULT Final Resul t Performing Organization Address [facility] de Phone Number [facility] [address] [place] [address] * C-REACTIVE PROTEIN (CRP) - INFLAMMATION (11/13/2015 12:24 PM EDT) C reactive protein 0.28 <0.80 mg/dL [facility] Comment: {C-REACTIVE PROTEIN {[id number]) Please be advised that patients taking Carboxypenicillins may exhibit falsely decreased C-Reactive Protein levels due to an analytical interference in this assay. 11/13/2015 12:2 4 PM EDT 11/13/2015 10:19 PM EDT Narrative Resulting Agency Comment [id number] Brandyn Pagan MD LABORATORY Final Result Performing Organization Address [facility] de Phone Number [facility] [address] [place] [address] * ERYTHROCYTE SEDIMENTATION RATE (ESR), WESTERGREN (11/13/2015 12:24 PM EDT) Sedimentation Rate [place] (ESR) 6 < OR = 30 mm/h [facility] Comment:{SED RATE BY MODIFBILLIE D JAZMINEREN {[id number]) 11/13/2015 12:2 4 PM EDT 11/13/2015 10:19 PM EDT Narrative Resulting Agency Comment [id number] us Brandyn Pagan MD LAB SAME DAY RESULT Final Resul t [facility] [address] [place] [address] * (ABNORMAL) CULTURE, URINE, ROUTINE (11/13/2015 12:24 PM EDT) Bacteria culture (Urine) SEE NOTE(A) [facility] Comment: {CULTURE, URINE, ROUTINE {[id number]) ??CULTURE, URINE, ROUTINE ??MICRO NUMBER: ?[id number] ??TEST STATUS: ? FINAL ??SPECIMEN SOURCE: ?? [...] 10:19 PM EDT Narrative Resulting Agency Comment [id number] us Brandyn Pagan MD LABORATORY Final Result [facility] [address] [place] [address] * (ABNORMAL) URINALYSIS, MICROSCOPIC (11/13/2015 12:24 PM EDT) WBC (Urine) 10-20(A) < OR = 5 /HPF [facility] Comment:{WBC {[id number]) RBC (Urine Sed) NONE SEEN < OR = 2 /HPF [facility] Comment:{RBC {[id number]) Epithelial cells.squamous (Urine sed) 0-5 < OR = 5 /HPF [facility] Comment:{SQUAMOUS EPITHELIAL CELLS {[id number]) Bacteria (Urine) NONE SEEN NONE SEEN /HPF [facility] Comment:{BACTERIA {[id number]) Hyaline casts (Urine sed) NONE SEEN NONE SEEN /LPF [facility] Comment:{HYALINE CAST {[id number]) 11/13/2015 12:2 4 PM EDT 11/13/2015 10:19 PM EDT Narrative Resulting Agency Comment [id number] us Brandyn Pagan MD LAB SAME DAY RESULT Final Resul t [facility] [address] [place] [address] documented in this encounter Visit Diagnoses Diagnosis Urinary tract infection, site unspecified Muscle ache Mylagia and myositis, unspecified Routine history and physical examination of adult Routine general medical examination at a health care facility documented in this encounter Care Teams Registration Specialist Relationship Specialty Start Date End Date Brandyn Pagan MD PCP - General Internal Medicine 08/07/15 02/02/17 Radha Spangler NP PCP - Backup PCP Internal Medicine 01/11/16 02/02/17 Unknown Pcp, Non Rmg PCP - General 02/03/17 documented as of this encounter
--- OUTSIDE RECORDS SUMMARY | 2024-07-12 11:02 | XMS_ITS | Encounter Summary ---
Author Organization [facility] Address [address] [place] [address] Care Team Providers Care Pharmacy Affairs Assistant Name Role Phone Branydn Pagan MD Primary Care Provider Unavaila Radha Fink NP Unavailable Unavailable Unknown Pcp, Non Rmg Primary Care Provider Unava ilable Encounter Details Date Type Department Care Team (Late st Contact Info) Description 12/02/2016 Orders Only [facility] [address] [place] [phone] Brandyn Pagan MD Social History Tobacco Use [...] Cervicalgia documented in this encounter Care Teams Pharmacy Affairs Assistant Relationship Specialty Start Date End Date Brandyn Pagan MD PCP - General Internal Medicine 08/07/15 02/02/17 Radha Spangler NP PCP - Backup PCP Internal Medicine 8/22/16 9/14/17 Unknown Pcp, Non Rmg PCP - General 02/03/17 documented as of this encounter
--- OUTSIDE RECORDS SUMMARY | 2024-07-12 11:02 | XMS_ITS | Encounter Summary ---
Author Organization [facility] Address [address] [place] [address] Care Team Providers Care Pricing Coordinator Name Role Phone Bijal Fox NP Primary Care Provider [phone] Reason for Referral * Diagnostic Imaging (Routine) - Authorized Specialty Diagnoses / Procedures Referred By Contac t Referred To Contact Diagnoses CKD stage 3a, GFR 45-59 ml/min (HCC) Chronic heart failure with preserved ejection fraction (HCC) Procedures US Kidney and Bladder Complete John Hendricks MD [address] [place] [address] Phone: tel: fax: Referral ID Status Reason Start Date Expiration Date V isits Requested Visits Authorized [id number] Authorized 07/01/2024 12/31/2025 1 1 Encounter Details Date Type Department Care Team (Late st Contact Info) Description 07/01/2024 3:15 PM EST Office Visit [facility] Nephrology [address] [place] [address], [address] [place] [address] John Hendricks MD [address] [place] [phone] Hyperkalemia (Primary Dx); CKD stage 3a, GFR 45-59 ml/min (HCC); Chronic heart failure with preserved ejection fraction (HCC); Primary hypertension Social History Tobacco Use Types Packs/Day Years Used Date Smoking Tobacco: Former Smokeless Tobacco: Never Comments:: Alcohol Use Standard Drinks/Week Comments Not Currently 0 (1 standard drink = 0.6 oz pur e alcohol) [facility] Utilities Answer Date Recorded In the [...] Hendricks MD - 07/01/2024 3:25 PM EST [facility] NEPHROLOG[facility] Patient Name: Genie Vora Female [...] 2011-07[birth year]29 Past Surgical History: Procedure Laterality Date FL ARTHROCENTESIS ASPIR&/INJ MAJOR JT/BURSA W/O US Right History of Arthrocentesis Injection Of Hip Joint Right hip steroid injection FL ARTHROCENTESIS ASPIR&/INJ MAJOR JT/BURSA W/O US Right History of Arthrocentesis Injection Of Hip Joint Right RIGHT HIP INJECTION WITH STEROID FL ARTHROCENTESIS ASPIR&/INJ MAJOR JT/BURSA W/O US Right History of Arthrocentesis Injection Of Hip Joint Right RIGHT HIP INJECTION FL ARTHROCENTESIS ASPIR&/INJ MAJOR JT/BURSA W/O US Right History of Arthrocentesis Injection Of Hip Joint Right RIGHT HIP CORTISONE INJECTION FL KNEE SCOPE,DIAGNOSTIC N/A History of Arthroscopy Knee FL ALVES W/O FACETEC FORAMOT/DSKC 05/23 VRT SEG, CERVICAL N/A History of Laminectomy Lumbar FL LAP,CHOLECYSTECTOMY N/A History of Cholecystectomy Laparoscopic PROCEDURE [...] visit. Allergies Allergen Reactions Prevacid [Lansoprazole] Indigestion Ndblxkg-Sxd-Que Reductase Inhibitors Muscle Pain Per pt Objective [...] CONVERSION 09/01/2014 12:22 PM Dysphagia. Edited by: [id number] - 1232 [id number] [id number] - 0828 YASMINE CLINICAL HISTORY, CONVERSION 08/02/2013 04:39 PM Left wrist dequervain's and left carpal tunnel syndrome. Left wrist mass. Edited by: [id number] - 1747 APRIL CLINICAL HISTORY, CONVERSION 04/08/2010 03:39 PM Dyspepsia. Suspected gastroesophageal reflux disease. Dictated by: LACY CARBAJAL Edited by: [id number] - 2022 [place] [address] CLINICAL HISTORY, CONVERSION 09/21/2006 02:09 PM Cholelithiasis. Edited by: [id number] - 1436 [facility] CL[facility], CONVERSION 04/26/2001 11:41 AM 50 year old female with a preop diagnosis of stress incontinence, urethral hypermobility, a rectocele and prolapsed cervix. The patient underwent abdominal hysterectomy and repair of rectocele. Edited by: [id number] - 1657 CLAUDIO CLINICAL HISTORY, CONVERSION 07/19/1999 12:15 PM Endometrial biopsy Edited by: [id number] - 0810 OWUSUC ALBUMIN 4.0 06/17/2024 07:03 [...] Description 08/01/2024 2:00 PM EDT Follow-Up [facility] Nephrology [address] [place] [address] [address] [place] [address] John Hendricks MD [address] [place] [address] 01/08/2025 10:00 AM EDT Follow-Up [address] Cardiology [address] [place] [address] [address] [place] [address] Mabel Onofre NP 100 [facility] [address] [place] [address] Scheduled Orders Name Type Priority Associated Diagnoses Orde r Schedule US Kidney and Bladder Complete Imaging Routine CKD stage 3a, GFR 45-59 ml/min (HCC) Chronic heart failure with preserved ejection fraction (HCC) Expected: 07/01/2024, Expires: 08/29/2025 documented as of this encounter Procedures * Due to [place] state law, this organization might not [...] in this encounter Results * Due to [place] state law, this organization might not be sharing negative HIV tests. * (ABNORMAL) Microscopic Urinalysis Only (07/02/2024 9:17 AM EST) RBC, Urine 5-10(A) None Seen, 0-2 /HPF 07/02/2024 10:07 AM EST [facility] WBC, Urine 0-2 None Seen, 0-2 /HPF 07/02/2024 10:07 AM EST [facility] Squamous Epithelial Cells, Urine 0-2 /HPF 07/02/2024 10:07 AM EST [facility] Bacteria, Urine Occasional (A) None Seen /HPF 07/02/2024 10:07 AM EST [facility] Urine Urine specimen collection, clean catch / Unknown Non-Blood Collection / Unknown 07/02/2024 9:17 AM EST 07/02/2024 9:36 AM EST us John Hendricks MD LAB URINE ORDERABLES Final Resul t [facility] [address] [facility] 2ND [place] [address], * (ABNORMAL) SPEP (Protein Electrophoresis w/Reflex to [...] 9:17 AM EST 07/02/2024 9:29 AM EST [facility] HILARY DAVID - 07/04/2024 8:59 AM EST [facility] Received Date: John Hendricks MD LAB BLOOD ORDERABLES Final Resul t HILARY DAVID [address] [facility] 3rd Floor, [place] [address], [place] [phone] * Magnesium (07/02/2024 9:17 AM EST) MG 1.9 1.5 - 2.5 mg/dL 07/02/2024 10:01 AM EST [facility] Blood Structure of peripheral vein / Unknown Venipuncture / Unknown 07/02/2024 9:17 AM EST 07/02/2024 9:29 AM EST John Hendricks MD LAB BLOOD ORDERABLES Final Resul t Performing Organization Address City/[facility] Co de Phone Number [facility] [address] [address], [place] [phone] * Microalbumin, Random Urine with Creatinine (07/02/2024 9:17 AM EST) Creatinine, Urine 55 mg/dL 07/02/2024 2:41 PM EST [facility] Microalbumin, Urine 4 <=20 mg/L 07/02/2024 2:41 PM EST [facility] Microalb/Creat Ratio, Random Urine 7.3 1.3 - 30.0 mg/g 07/02/2024 2:41 PM EST [facility] Urine Voided urine specimen / Unknown Non-Blood Collection / Unknown 07/02/2024 9:17 AM EST 07/02/2024 9:36 AM EST John Hendricks MD LAB URINE ORDERABLES Final Resul t Performing Organization Address [facility] Co de Phone Number [facility] [address] [place] [address], [place] [phone] * Protein, Random Urine with Creatinine (07/02/2024 9:17 AM EST) Protein, Urine 6 mg/dL 07/02/2024 2:41 PM EST [facility] Creatinine, Urine 55 mg/dL 07/02/2024 2:41 PM EST [facility] Protein/Creati nine Ratio 109 <200 mg/gmCr 07/02/2024 2:41 PM EST [facility] Urine Voided urine specimen / Unknown Non-Blood Collection / Unknown 07/02/2024 9:17 AM EST 07/02/2024 9:36 AM EST John Hendricks MD LAB URINE ORDERABLES Final Resul t Performing Organization Address City/[facility] Co de Phone Number [facility] [address] [address], [place] [phone] * (ABNORMAL) Urinalysis W/Reflex to Microscopic (No Culture) (07/02/2024 9:17 AM EST) Color, Urine Yellow Yellow 07/02/2024 9:44 AM EST [facility] Clarity, Urine Clear Clear 07/02/2024 9:44 AM EST [facility] Specific Harleigh, Urine 1.015 1.005 - 1.030 07/02/2024 9:44 AM EST [facility] pH, Urine 5.5 5.0 - 8.0 07/02/2024 9:44 AM EST [facility] Protein, Urine Negative Negative mg/dL 07/02/2024 9:44 AM EST [facility] Glucose, Urine Negative Negative mg/dL 07/02/2024 9:44 AM EST [facility] Ketones, Urine Negative Negative mg/dL 07/02/2024 9:44 AM EST [facility] Bilirubin, Urine Negative Negative 07/02/2024 9:44 AM EST [facility] Blood, Urine Small(A) Negative 07/02/2024 9:44 AM EST [facility] Nitrite, Urine Negative Negative 07/02/2024 9:44 AM EST [facility] Urobilinogen, Urine 0.2 0.2 - 1.0 E.U./dL 07/02/2024 9:44 AM EST [facility] Leukocyte Esterase, Urine Small(A) Negative 07/02/2024 9:44 AM EST [facility] Urine Urine specimen collection, clean catch / Unknown Non-Blood Collection / Unknown 07/02/2024 9:17 AM EST 07/02/2024 9:36 AM EST John Hendricks MD LAB URINE ORDERABLES Final Resul t Performing Organization Address [facility] Co de Phone Number [facility] [address] [address], [place] [phone] * (ABNORMAL) Vitamin D, 25-Hydroxy, Total, Immunoassay (07/02/2024 9:17 AM EST) Pathologist [facility] Vitamin D 25-OH 22.50(L) 30.00 - 80.00 ng/mL 07/02/2024 11:24 AM EST [facility] Blood Structure of peripheral vein / Unknown Venipuncture / Unknown 07/02/2024 9:17 AM EST 07/02/2024 9:29 AM EST John Hendricks MD LAB BLOOD ORDERABLES Final Resul t [facility] [address] [address], [place] [phone] * (ABNORMAL) Renal Function Panel (07/02/2024 9:17 AM EST) Pathologist [facility] NA 138 136 - 145 mmol/L 07/02/2024 10:02 AM EST [facility] K 4.4 3.5 - 5.1 mmol/L 07/02/2024 10:02 AM EST [facility] Comment:ALL DELTAS REVIEWED Cl 101 98 - 109 mmol/L 07/02/2024 10:02 AM EST [facility] CO2 26 22 - 32 mmol/L 07/02/2024 10:02 AM EST [facility] Anion Gap 15 >=0 07/02/2024 10:02 AM EST [facility] Glucose 115(H) 60 - 99 mg/dL 07/02/2024 10:02 AM EST [facility] BUN 37(H) 8 - 23 mg/dL 07/02/2024 10:02 AM [facility] Creatinine 1.47(H) 0.50 - 1.12 mg/dL 07/02/2024 10:02 AM EST [facility] Calcium 8.8 8.4 - 10.4 mg/dL 07/02/2024 10:02 AM EST [facility] Phosphorus 3.6 2.5 - 4.5 mg/dL 07/02/2024 10:02 AM EST [facility] Albumin 3.8 3.5 - 5.0 g/dL 07/02/2024 10:02 AM EST [facility] eGFR 38(L) >=60 mL/min/1. 73m2 07/02/2024 10:02 AM EST [facility] Comment:The estimated glomer ular [...] MD LAB BLOOD ORDERABLES Final Resul t [facility] [address] [facility] [address] [place] [address], * (ABNORMAL) PTH, Intact (without Calcium) (07/02/2024 9:17 AM EST) Parathyroid Hormone, Intact 226.0(H) 14.5 - 87.1 pg/mL 07/02/2024 11:19 AM EST [facility] Comment: This test was performed using the chemiluminescent immunoassay (CLIA) intended for the quantitative determination of intact human parathyroid hormone method on the DIASOPix4D LIAISON. Values obtained from different assay methods cannot be used interchangeably. Assay results should be utilized in conjunction with other clinical and laboratory data Blood Structure of peripheral vein / Unknown Venipuncture / Unknown 07/02/2024 9:17 AM EST 07/02/2024 9:29 AM EST John Hendricks MD LAB BLOOD ORDERABLES Final Resul t Performing Organization Address [facility]/ZIP Co de Phone Number [facility] [address] [address], [place] [phone] * Hemoglobin and Hematocrit (07/02/2024 9:17 AM EST) Hemoglobin 12.0 11.7 - 15.5 g/dL 07/02/2024 9:38 AM EST [facility] Hematocrit 37.1 35.7 - 45.8 % 07/02/2024 9:38 AM EST [facility] Blood Structure of peripheral vein / Unknown Venipuncture / Unknown 07/02/2024 9:17 AM EST 07/02/2024 9:29 AM EST John Hendricks MD LAB BLOOD ORDERABLES Final Resul t Performing Organization Address City/[facility] Co de Phone Number [facility] [address] [address], [place] [phone] documented in this encounter Visit Diagnoses Diagnosis Hyperkalemia- Primary Hyperpotassemia CKD stage 3a, GFR 45-59 ml/min (HCC) Chronic heart failure with preserved ejection fraction (HCC) Primary hypertension Unspecified essential hypertension documented in this encounter Care Teams Pricing Coordinator Relationship Specialty Start Date End Date Bijal Fox NP [address] [place] [address] [address] [place] [address] PCP - General Family Medicine 05/30/24 documented as of this encounter
--- OUTSIDE RECORDS SUMMARY | 2024-07-12 11:02 | XMS_ITS | Encounter Summary ---
Author Organization [facility] Address [address] [place] [address] Care Team Providers Care Residential Mental Health Worker Name Role Phone Brandyn Pagan MD Primary Care Provider Radha Cuevas NP Unavailable Unavailable Unknown Pcp, Non Rmg Primary Care Provider Unava ilable Reason for Visit * Reason Onset Date Comments Labs/orders 12/28/2015 Creatinine Order for Radiology with Contrast Encounter Details Date Type Department Care Team ([facility] st Contact Info) Description 12/28/2015 Telephone [address] [facility] [address] [place] [address] Radha Spangler NP Labs/orders (Creatinine [...] did without prescription? * Telephone Encounter - Cnidy Clements LPN - 12/28/2015 4:30 PM EDT [...] Cervicalgia documented in this encounter Care Teams Residential Mental Health Worker Relationship Specialty Start Date End Date Brandyn Pagan MD PCP - General Internal Medicine 08/07/15 02/02/17 Radha Spangler NP PCP - Backup PCP Internal Medicine 01/11/16 02/02/17 Unknown Pcp, Non Rmg PCP - General 02/03/17 documented as of this encounter
--- OUTSIDE RECORDS SUMMARY | 2024-07-12 11:02 | XMS_ITS | Encounter Summary ---
Author Organization [facility] Address [address] [place] [address] Care Team Providers Care Tank Shop Supervisor Name Role Phone Bijal Fox SAMPLE COLLECTOR Primary Care Provider Reason for Visit * Reason Comments SOB * Auth/Cert (Routine) Specialty Diagnoses / Procedures Referred By Contac t Referred To Contact Diagnoses Pneumonia due to organism Referral ID Status Reason Start Date Expiration Date Visits Re quested Visits Authorized [id number] [phone] Encounter Details Date Type Department Care Team (Latest Contact Info) Description 06/15/2024 7:35 PM EST - 06/26/2024 6:09 PM [facility] Hospital Encounter [address] [address] Kevin Newsome MD [address] [place] [id number] Mj Mendenhall MD [address] [place] [address] Discharge Disposition: Home with Services (06) Social History Tobacco Use Types Packs/Day Years Used Date Smoking Tobacco: Former Smokeless Tobacco: Never Comments:: Alcohol Use Standard Drinks/Week Comments Not Currently 0 (1 standard drink = 0.6 oz pur e alcohol) [facility] Utilities Answer Date Recorded In the [...] were not included. DISCHARGE SUMMARY [facility] DISCHARGE INFORMATION: Date and Time of Admission: [...] ON DISCHARGE: Attending Provider: Mj Mendenhall MD [phone] FOLLOW-UPS AND SCHEDULED APPOINTMENTS: No future appointments. CONTACT INFORMATION FOR FOLLOW-UP [facility] Specialty: Home Health Services [address] [facility] [phone] Next Steps: Follow up [facility] [address] [facility] [address] Next Steps: Follow up Instructions: Have gone for auth. John Hendricks MD Specialty: Nephrology [address] [place] [address] [address] [facility] [address] Next Steps: Schedule an appointment as soon as possible for a visit Instructions: Hyperkalemia, CKD Pipo Crystal MD Specialty: Internal Medicine, Pulmonary Disease [address] [place] [phone] Next Steps: Schedule an appointment as soon as possible for a visit Stephanie Hampton MD Specialty: Cardiology [address] [place] [address] [address] [facility] [address] Next Steps: Schedule an appointment as soon [...] cream Commonly known as: KENALOG ALLERGIES: Neosporin (ser-amphq-ugdtuson) [imbiofad-iqumzyswx-hxhxstgsjf], Prevacid [lansoprazole], and Ojnxhks-upx-hpu reductase inhibitors IMMUNIZATION HISTORY: Most Recent Immunizations [...] HISTORY: Past Surgical History: Procedure Laterality Date NC ARTHROCENTESIS ASPIR&/INJ MAJOR JT/BURSA W/O US Right History of Arthrocentesis Injection Of Hip Joint Right hip steroid injection NC ARTHROCENTESIS ASPIR&/INJ MAJOR JT/BURSA W/O US Right History of Arthrocentesis Injection Of Hip Joint Right RIGHT HIP INJECTION WITH STEROID NC ARTHROCENTESIS ASPIR&/INJ MAJOR JT/BURSA W/O US Right History of Arthrocentesis Injection Of Hip Joint Right RIGHT HIP INJECTION NC ARTHROCENTESIS ASPIR&/INJ MAJOR JT/BURSA W/O US Right History of Arthrocentesis Injection Of Hip Joint Right RIGHT HIP CORTISONE INJECTION NC KNEE SCOPE,DIAGNOSTIC N/A History of Arthroscopy Knee NC ALVES W/O FACETEC FORAMOT/[facility] 05/23 VRT SEG, CERVICAL N/A History of Laminectomy Lumbar NC LAP,CHOLECYSTECTOMY N/A History of Cholecystectomy Laparoscopic PROCEDURE [...] to obtain the completed interpretation. Workstation ID: [id number] [facility] PLAN OF CARE CONSULTS: IP CONSULT TO PULMONOLOGY IP CONSULT TO IV THERAPY NURSE IP CONSULT TO CARDIOLOGY IP CONSULT TO IV THERAPY NURSE IP CONSULT TO RESPIRATORY CARE IP CONSULT TO IV THERAPY NURSE CONDITION: Good ADVANCED CARE PLANNING Code Status: Full Code Medical Decision Maker: Patient I anticipate that this patient's expected length of stay in a long-term facility will be lessthan 30 days. I [...] BY WASHING HANDS WHEN HOME, USING HAND STRATEGIC PARTNERSHIP REPRESENTATIVE WHEN OUT IN THE COMMUNITY, AVOIDCONTACT WITH [...] this encounter Progress Notes * Olivia Arteaga, MYE - 06/25/2024 12:37 PM EST Progress Note [...] Active Problems: Lumbar canal stenosis A-fib (CMS/HCC) ([facility]) Hypothyroidism Chronic obstructive pulmonary disease with acute exacerbation ([facility]) Severe asthma with exacerbation Acute respiratory failure with hypoxia ([facility]) Diastolic CHF, acute (CMS/HCC) ([facility]) Elevated serum creatinine Constipation Hyperkalemia * [...] IV Lasix stopped. Diastolic CHF, acute (CMS/HCC) ([facility]) Assessment & Plan CHF diastolic component: [...] to 2459 Acute respiratory failure with hypoxia ([facility]) Assessment & Plan Acute Resp Failure: Evidenced on admission by SpO2 88% requiring 3-4L SAMPLE COLLECTOR. Tachypnea with RR increased to 22 RPM. [...] 112 mcg daily. TSH WNL A-fib (CMS/HCC) ([facility]) Assessment & Plan A-Fib: Secondary hypercoagulable [...] Active Problems: Lumbar canal stenosis A-fib (CMS/HCC) ([facility]) Hypothyroidism Chronic obstructive pulmonary disease with [...] IV Lasix stopped. Diastolic CHF, acute (CMS/HCC) ([facility]) Assessment & Plan CHF diastolic component: [...] to 2459 Acute respiratory failure with hypoxia ([facility]) Assessment & Plan Acute Resp Failure: Evidenced on admission by SpO2 88% requiring 3-4L SAMPLE COLLECTOR. Tachypnea with RR increased to 22 RPM. She is not home-O2 dependent. -Wean supplemental O2 as tolerated, presently weaned to 2L SAMPLE COLLECTOR -Taper steroids -Continue supportive therapy with nebulized [...] organism Active Problems: Lumbar canal stenosis A-fib ([facility]) ([facility]) Hypothyroidism Chronic obstructive pulmonary disease with acute exacerbation ([facility]) Severe asthma with exacerbation Acute respiratory failure with hypoxia ([facility]) Diastolic CHF, acute ([facility]) ([facility]) Elevated serum creatinine Constipation * Pneumonia [...] after IV Lasix stopped. Diastolic CHF, acute ([facility]) ([facility]) Assessment & Plan CHF diastolic component: [...] to 2459 Acute respiratory failure with hypoxia ([facility]) Assessment & Plan Acute Resp Failure: Evidenced on admission by SpO2 88% requiring 3-4L SAMPLE COLLECTOR. Tachypnea with RR increased to 22 RPM. She is not home-O2 dependent. Presently weaned to 2L SAMPLE COLLECTOR, but still coarse with rhonchus cough. Reduced [...] 112 mcg daily. TSH WNL A-fib (CMS/HCC) ([facility]) Assessment & Plan A-Fib: HR controlled [...] Active Problems: Lumbar canal stenosis A-fib (CMS/HCC) ([facility]) Hypothyroidism Chronic obstructive pulmonary disease with acute exacerbation (HCC) Severe asthma with exacerbation Acute respiratory failure with hypoxia ([facility]) Diastolic CHF, acute (CMS/HCC) ([facility]) Elevated serum creatinine Constipation * Pneumonia [...] after IV Lasix stopped. Diastolic CHF, acute ([facility]/HCC) ([facility]) Assessment & Plan CHF diastolic component: [...] to 2459 Acute respiratory failure with hypoxia ([facility]) Assessment & Plan Acute Resp Failure: Evidenced on admission by SpO2 88% requiring 3-4L SAMPLE COLLECTOR. Tachypnea with RR increased to 22 RPM. She is not home-O2 dependent. Presently weaned to 2L SAMPLE COLLECTOR, but still coarse with rhonchus cough. Reduced IV steroids as no wheezing on exam and she appears tearful and depressed. Continue supportive therapy with nebulized bronchodilators, ICS and multiple antitussives. Avoid increasing Tramadol in setting of COPD/asthma. Severe asthma with exacerbation Assessment & Plan PMH significant for asthma. Therapy as above. Chronic obstructive pulmonary disease with acute exacerbation ([facility]) Assessment & Plan No formal diagnosis of COPD, but she was a former smoker. Plan for home nebulizer at discharge. Hypothyroidism Assessment & Plan Continue with Levothyroxine 112 mcg daily. TSH WNL A-fib ([facility]/HCC) ([facility]) Assessment & Plan A-Fib: HR controlled [...] to obtain the completed interpretation. Workstation ID: [id number] ECG 12 lead Result Date: 06/16/2024 All Results Sinus rhythm with 1st degree AV block Confirmed by Rosi Garcia ([id number]) on 06/16/2024 10:55:[address] Chest PE [...] to obtain the completed interpretation. Workstation ID: [id number] Up-to-date CT equipment and radiation dose reduction [...] to obtain the completed interpretation. Workstation ID: [id number] I have personally reviewed the patient's imaging [...] azithromycin Supportive care Diastolic CHF, acute (CMS/HCC) ([facility]) Assessment & Plan Patient developed increased [...] Chronic obstructive pulmonary disease/asthma with acute exacerbation ([facility]) Assessment & Plan Patient reports history [...] machine was ordered by respiratory therapy Hypoxia ([facility]) Assessment & Plan Patient does not [...] levothyroxine 112 mcg daily. TSH WNL A-fib (CMS/[facility]) ([facility]) Assessment & Plan Continue with diltiazem [...] CARDIOLOGY INPATIENT FOLLOW UP Genie Vora 1950 [id number] 06/21/24 Reason for cardiology consult: HFpEF Subjective [...] nursing teaching prior to discharge. Allergies Neosporin (Jli-Ijzyr-Hleyailf) [Gypjcdse-Fkcxfekjp-Weonberfnt] Prevacid [Lansoprazole] Cbabvjw-Qfn-Xhn Reductase Inhibitors Medications Current Medications (Taking) as [...] possible toobtain the completed interpretation. Workstation ID: [id number] Prior Echo Procedures Transthoracic echo (TTE) Exam [...] Please excuse grammatical errors. * Tia Oh, SAMPLE COLLECTOR - 06/20/2024 12:57 PM EST PROGRESS NOTE [...] Active Problems: Lumbar canal stenosis A-fib (CMS/HCC) ([facility]) Hypothyroidism Chronic obstructive pulmonary disease with acute exacerbation (HCC) Severe asthma with exacerbation Acute respiratory failure with hypoxia ([facility]) Diastolic CHF, acute (CMS/HCC) ([facility]) Elevated serum creatinine * Pneumonia due [...] tomorrow. Repeat BMP Diastolic CHF, acute (CMS/HCC) ([facility]) Assessment & Plan Patient developed increased [...] to 2459 Acute respiratory failure with hypoxia ([facility]) Assessment & Plan Patient does not [...] Chronic obstructive pulmonary disease with acute exacerbation ([facility]) Assessment & Plan Patient was a [...] Daily budesonide nebulizer, 1 mg, inhalation, q12h RNADI busPIRone, 7.5 mg, oral, BID cefTRIAXone, 1 [...] Active Problems: Lumbar canal stenosis A-fib (CMS/HCC) ([facility]) Hypothyroidism Chronic obstructive pulmonary disease with acute exacerbation ([facility]) Severe asthma with exacerbation Acute respiratory failure with hypoxia ([facility]) Diastolic CHF, acute (CMS/HCC) ([facility]) * Pneumonia due to organism Assessment [...] Will check BNP. Diastolic CHF, acute (CMS/HCC) ([facility]) Assessment & Plan Patient developed increased [...] Cardiology consult Acute respiratory failure with hypoxia ([facility]) Assessment & Plan Patient does not [...] Active Problems: Lumbar canal stenosis A-fib (CMS/HCC) ([facility]) Hypothyroidism Chronic obstructive pulmonary disease with acute exacerbation ([facility]) Severe asthma with exacerbation Acute respiratory failure with hypoxia ([facility]) * Pneumonia due to organism Assessment [...] check BNP. Acute respiratory failure with hypoxia ([facility]) Assessment & Plan Patient does not use home O2. On admission patient was saturating 88% and required 3 to 4 L of O2. She was also tachypneic up to 22 respiration per minute. Today patient is using 3 L of O2 and saturating 92%. Chronic obstructive pulmonary disease with acute exacerbation ([facility]) Assessment & Plan Patient was a [...] Active Problems: Lumbar canal stenosis A-fib (CMS/HCC) ([facility]) HLD (hyperlipidemia) Hypothyroidism Chronic obstructive pulmonary disease with acute exacerbation ([facility]) * Pneumonia due to organism Assessment & Plan CT chest shows no evidence of PE. Left bibasilar consolidation along with left lower lobe nodules. This could relate to pneumonia and/or aspiration. Will continue with IV Rocephin and Zithromax. Get blood cultures today. Chronic obstructive pulmonary disease with acute exacerbation ([facility]) Assessment & Plan Patient was a [...] daily. HLD (hyperlipidemia) Assessment & Plan A-fib (CMS/[facility]) ([facility]) Assessment & Plan Continue with carb, [...] 975 mg (975 mg oral Given 06/15/24 6412) iohexoL (OMNIPAQUE) 350 mg iodine/mL contrast 80 mL (80 mL intravenous Given 06/15/24 7299) cefepime (MAXIPIME) 2 g in 0.9% NaCl [...] HISTORY: Past Surgical History: Procedure Laterality Date NC ARTHROCENTESIS ASPIR&/INJ MAJOR JT/BURSA W/O US Right History of Arthrocentesis Injection Of Hip Joint Right hip steroid injection NC ARTHROCENTESIS ASPIR&/INJ MAJOR JT/BURSA W/O US Right History of Arthrocentesis Injection Of Hip Joint Right RIGHT HIP INJECTION WITH STEROID NC ARTHROCENTESIS ASPIR&/INJ MAJOR JT/BURSA W/O US Right History of Arthrocentesis Injection Of Hip Joint Right RIGHT HIP INJECTION NC ARTHROCENTESIS ASPIR&/INJ MAJOR JT/BURSA W/O US Right History of Arthrocentesis Injection Of Hip Joint Right RIGHT HIP CORTISONE INJECTION NC KNEE SCOPE,DIAGNOSTIC N/A History of Arthroscopy Knee NC ALVES W/O FACETEC FORAMOT/[facility] 05/23 VRT SEG, CERVICAL N/A History of Laminectomy Lumbar NC LAP,CHOLECYSTECTOMY N/A History of Cholecystectomy Laparoscopic PROCEDURE [...] irritation or rash. Unknown Provider, ALLERGIES: Neosporin (yzt-qelmv-vrintvub) [lapsbaqm-ptwebdhpe-chwwexrwxy], Prevacid [lansoprazole], and Ustxcng-qgj-dve reductase inhibitors SOCIAL HISTORY: Social History Tobacco [...] Value - Date/Time Respiratory Culture w/Gram Stain [[id number]] Lab Status: No result Specimen: Expectorated Sputum Blood Culture [[id number]] Collected: 06/15/242216 Lab Status: In process Specimen: Blood from Venous, Peripheral Updated: 06/15/242238 Blood Culture [[id number]] Collected: 06/15/242216 Lab Status: In process Specimen: [...] to obtain the completed interpretation. Workstation ID: [id number] Assessment & Plan 73-year-old female with a [...] Consults CARDIOLOGY INPATIENT CONSULT Genie Vora 1950 [id number] 06/20/24 REASON FOR CONSULT: Acute HFpEF History [...] Other Family History of depression Allergies Neosporin (Cqr-Iriwt-Ggvevarz) [Eoiffzel-Fykjrbjtp-Qjvcrbgihu] Prevacid [Lansoprazole] Yvyiqbo-Agp-Exo Reductase Inhibitors Medications Current Medications (Taking) as [...] possible toobtain the completed interpretation. Workstation ID: [id number] Prior Echo Procedures Transthoracic echo (TTE) Exam [...] 2.5 mg, inhalation, q4h PRN, Tia Oh, SAMPLE COLLECTOR apixaban (ELIQUIS) tablet 5 mg, 5 mg, [...] 1 mg, inhalation, q12h RANDI, Tia Oh, SAMPLE COLLECTOR, 1mg at 06/17/24 0945 busPIRone (BUSPAR) tablet 7.5 mg, 7.5 mg, oral, BID, Mj Mendenhall MD, 7.5 mg at 06/17/24 08 cefTRIAXone (ROCEPHIN) injection 1 g, 1 g, intravenous, q24h RANDI, Mj Mendenhall MD, 1 g at 06/17/24851 codeine-guaiFENesin (CHERATUSSIN AC) 20-200 mg/10 mL liquid 10 mg of codeine, 5 mL, oral, q4h PRN, Tia Oh, SAMPLE COLLECTOR, 10 mg of codeine at 06/17/24 1145 [...] 600 mg, oral, q12h RANDI, Tia Oh, SAMPLE COLLECTOR, 600 mg at 06/17/24 0945 ipratropium-albuteroL (DUO-NEB) 0.5-2.5 mg/3 mL nebulizer solution 3 mL, 3 mL, inhalation, q4h PRN,Romaine Manuel MD, 3 mL at 06/17/24 0918 ipratropium-albuteroL (DUO-NEB) 0.5-2.5 mg/3 mL nebulizer solution 3 mL, 3 mL, inhalation, q4h RANDI,Rosanna Marie, SAMPLE COLLECTOR, 3 mL at 06/17/24 1302 levothyroxine (SYNTHROID, [...] 3:51 PM EST This Chronic Disease Nurse Speech Pathologist Assistant reviewed this patient's EMR. She is being discharged home with [facility] today. This proposal manager writer called the PCP office, they are closed today, this proposal manager writer left a M asking them to call the patient directly to schedule a post-hospital f/up appointment. This proposal manager writer scheduled a TCM for 07/03/24 at 2:30pm with Cardiology in [place]. This proposal manager writer added both to the AVS and also added a note to ask the PCP to place a referral to Pulmonology once seen. A secure chat wassent to the nurses asking them to review the above with the patient at discharge. [id number] This proposal manager writer placed a message into [facility] to [facility] asking their nurses to continue to provide both CHF and COPD education with this patient after DC. Both diagnoses are new to 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 * Plan of Care - Jose Elena - 06/26/2024 12:20 PM EST Discharge IM : Important Message from Medicare, [facility]-[id number] (08/02/19) OMB Approval No.: [phone] (Expires [...] hospitalist. RNCM sent msg via [facility]port to [facility] letting them know that pt not ready for dc today but willlikely be ready for dc tomorrow. Rec'd reply that they have gone for auth. [id number] Pt requested to speak with RNCM. RNCM [...] out of the office tomorrow. Will ask employment case manager to follow up with [facility] in the morning. Pertinent Clinical impacting hospitalization, level of care update, if indicated Pt reports no BM x 10 days. Sodium 135, BUN 34, creat 1.18, WBC 14.6. Pt given enema today. Discharge Planning: Discharge Plan: [facility] - [facility] has gone for auth. [id number] [...] Intervention 2 weeks OT Anticipated Discharge Disposition long-term facility Row Name 06/24/24 1350 Clinical Impression [...] CGA, with narrowBOS, and requiring VCs to clam picker feet when ambulating. Pt donned pants seated EOB with set up assistance, requiring assistance to manage compliance monitor wiring. Pt completed toileting routine inclduing [...] degeneration Weakness Hypoxia Generalized weakness A-fib (CMS/HCC) ([facility]) Anxiety Primary hypertension Hypothyroidism Pneumonia due to organism Chronic obstructive pulmonary disease with acute exacerbation (HCC) Severe asthma with exacerbation Acute respiratory failure with hypoxia ([facility]) Diastolic CHF, acute (CMS/HCC) ([facility]) Elevated serum creatinine Constipation Hyperkalemia Past Medical History: Diagnosis Date Arthritis Posterior tibial tendinitis History of Posterior tibial tendinitis 2014-09-02 Radial styloid tenosynovitis History of De Quervain's tenosynovitis 2011-07-29 Past Surgical History: Procedure Laterality Date NC ARTHROCENTESIS ASPIR&/INJ MAJOR JT/BURSA W/O US Right History of Arthrocentesis Injection Of Hip Joint Right hip steroid injection NC ARTHROCENTESIS ASPIR&/INJ MAJOR JT/BURSA W/O US Right History of Arthrocentesis Injection Of Hip Joint Right RIGHT HIP INJECTION WITH STEROID NC ARTHROCENTESIS ASPIR&/INJ MAJOR JT/BURSA W/O US Right History of Arthrocentesis Injection Of Hip Joint Right RIGHT HIP INJECTION NC ARTHROCENTESIS ASPIR&/INJ MAJOR JT/BURSA W/O US Right History of Arthrocentesis Injection Of Hip Joint Right RIGHT HIP CORTISONE INJECTION NC KNEE SCOPE,DIAGNOSTIC N/A History of Arthroscopy Knee NC ALVES W/O FACETEC FORAMOT/[facility]KC 05/23 VRT SEG, CERVICAL N/A History of Laminectomy Lumbar NC LAP,CHOLECYSTECTOMY N/A History of Cholecystectomy Laparoscopic PROCEDURE [...] therapy. 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 supervisor [facility] Name 06/24/24 1352 Cognitive Assessment/Intervention Orientation Status (Cognitive) oriented x 4 [facility] 06/24/24 [facility] Pain Scale Pain Scale Pain Scale: Numbers Pre/Post-Treatment (Group) [facility] 06/24/24 [facility] Pain Scale: Numbers Treatment Pain Location - Orientation (Numbers Scale) lower Pain Location - Body (Numbers Scale) back Pain: Comment (Numbers Scale) Pt reports 5/10 when sitting still [facility] 06/24/24 1352 General UE Assessment Upper Extremity: Range of Motion LUE ROM was WFL;RUE ROM was WFL Upper Extremity: Range of Motion Detail Jose UE shaping machine operator strength: 4/5 [facility] 06/24/24 [facility] Sensory Assessment (Somatosensory) Sensory Assessment (Somatosensory) sensation intact;bilateral UE Bilateral UE Sensory Assessment light touch awareness Comment, Sensory Assessment Pt reports numbness in fingers, noticing difficulty with fine motor tasks (pt gave example of handwriting getting worse) after long perioids of time/ use [facility] 06/24/24 [facility] Motor Coordination Assessment/Training Hand Dominance right Left Opposition intact Right Opposition intact [facility] 06/24/24 [facility] Bed Mobility Assessment/Treatment Anewit-ie-Zeb [facility] (Bed Mobility) contact guard assist Gcc-kq-Zpmift [facility] (Bed Mobility) contact guard assist [facility] 06/24/24 [facility] Transfer Assessment/Treatment Sit-Stand [facility] level (Transfers) contact guard assist Stand-Sit [facility] level(Transfers) contact guard assist Gjk-Vmqcz-Pwz Assistive Device (Transfers) walker, rolling [facility] 06/24/24 [facility] Gait Assessment/Treatment [facility] (Gait) contact guard assist Assistive Device (Gait) walker, rolling Distance in Feet (Gait) 70 Comment (Gait) Pt noted with narrow ROB, rquiring cues to clam picker feet during ambulation [facility] Name 06/24/24 [facility] Lower Body Dressing Assessment/Training Comment (LB Dressing) Pt donned pants seated EOB with set up assistance, requiring assistance to manage compliance monitor wiring. [facility] 06/24/24 [facility] Toileting Assessment/Training [place] Level (Toileting) supervision required Impairments (Toileting) strength decreased [facility] 06/24/24 [facility] Clinical Impression Rehab Potential good, to achieve stated therapy goals Therapy Frequency 3 times/wk OT Predicted Duration of Therapy Intervention 2 weeks OT Anticipated Discharge Disposition long-term facility Row Name 06/24/24 1352 Planned Therapy Interventions Planned Therapy Interventions ADL retraining;energy conservation education;strengthening;stretching;transfer training Row Name 06/24/24 1352 Rehab Eval/Treat-Additional Details Document Type Initial Evaluation OT Date of Initial Eval/Re-Eval 06/24/24 Patient Effort good OT Goal Summary (all recorded) OT Goal Summary Row Name 06/24/24 [facility]2 Occupational Therapy Goals Bed Mobility Goal Selection (OT) bed mobility, OT goal 1 Transfer Goal Selection (OT) transfer, OT goal 1 Grooming Goal Selection (OT) grooming, OT goal 1 Toileting Goal Selection (OT) toileting, OT goal 1 Row Name 06/24/24 [facility]2 Bed Mobility Goal 1 (OT) Activity (Bed Mobility Goal 1, OT) sit to supine/supine to sit [place] Level (Bed Mobility Goal 1, OT) modified independence Time Frame (Bed Mobility Goal 1, OT) 1 week Row Name 06/24/24 [facility]2 Transfer Goal 1 (OT) Activity (Transfer Goal 1, OT) lst-bi-moiqb/bmkuw-wc-byf [place] Level (Transfer Goal 1, OT) supervision required Assitive Devices (Transfer Goal 1, OT) walker, rolling Time Frame (Transfer Goal 1, OT) 1 week Row Name 06/24/24 [facility]2 Grooming Goal 1 (OT) Activity (Grooming Goal 1, OT) hair care;oral care;wash face, hands [place] Level (Grooming Goal 1, OT) supervision required standing at sink >5 min Time Frame (Grooming Goal 1, OT) 1 week Row Name 06/24/24 [facility] Toileting Goal 1 (OT) Activity (Toileting Goal 1, OT) toileting skills, all [place] Level (Toileting Goal 1, OT) independent Time Frame (Toileting Goal 1, OT) 1 week Row Name 06/24/24 1352 Pain Goal (OT) Pain Score (Pain Score, OT) 2 Activity (Pain Goal, OT) during all tasks in daily routine Time Frame (Pain Goal, OT) 1 week Adina Cage OT Licensure: [place], [place]: [id number] * Plan of Care - Elise Mills [...] PT Plan and Recommendation Row Name 06/24/24 3940 Clinical Impression Diagnosis decline in function due to pneumonia Patient/Family Goals Statement To be able to walk Criteria for Skilled Therapeutic Interventions Met yes;treatment indicated Impairments Found (describe specific impairments) aerobic capacity/endurance;gait, locomotion, and balance Rehab Potential good, to achieve stated therapy goals Therapy Frequency 3 times/wk PT Predicted Duration of Therapy Intervention by discharge PT Anticipated Discharge Disposition long-term facility Physical therapy evaluation level based on elements of the patient???s history, examination of bodysystems, clinical presentation, and complexity of clinical decision making, as documented in the EMR, in accordance with [facility] CPT code standards. Level of complexity of [...] degeneration Weakness Hypoxia Generalized weakness A-fib (CMS/HCC) ([facility]) Anxiety Primary hypertension Hypothyroidism Pneumonia due to organism Chronic obstructive pulmonary disease with acute exacerbation (HCC) Severe asthma with exacerbation Acute respiratory failure with hypoxia ([facility]) Diastolic CHF, acute (CMS/[facility]) ([facility]) Elevated serum creatinine Constipation Hyperkalemia Past Medical History: Diagnosis Date Arthritis Posterior tibial tendinitis History of Posterior tibial tendinitis 2014-09-02 Radial styloid tenosynovitis History of De Quervain's tenosynovitis 2011-07-29 Past Surgical History: Procedure Laterality Date NC ARTHROCENTESIS ASPIR&/INJ MAJOR JT/BURSA W/O US Right History of Arthrocentesis Injection Of Hip Joint Right hip steroid injection NC ARTHROCENTESIS ASPIR&/INJ MAJOR JT/BURSA W/O US Right History of Arthrocentesis Injection Of Hip Joint Right RIGHT HIP INJECTION WITH STEROID NC ARTHROCENTESIS ASPIR&/INJ MAJOR JT/BURSA W/O US Right History of Arthrocentesis Injection Of Hip Joint Right RIGHT HIP INJECTION NC ARTHROCENTESIS ASPIR&/INJ MAJOR JT/BURSA W/O US Right History of Arthrocentesis Injection Of Hip Joint Right RIGHT HIP CORTISONE INJECTION NC KNEE SCOPE,DIAGNOSTIC N/A History of Arthroscopy Knee NC ALVES W/O FACETEC FORAMOT/DSKC 1/ VRT SEG, CERVICAL N/A History of Laminectomy Lumbar NC LAP,CHOLECYSTECTOMY N/A History of Cholecystectomy Laparoscopic PROCEDURE [...] Row Name 06/24/24 1350 Bed Mobility Assessment/Treatment Cywunh-ak-Bkj [place] (Bed Mobility) contact guard assist Eat-je-Qovylp [place] (Bed Mobility) contact guard assist Default Flowsheet Data (Last 12 Hours) Adult PT Focused Evaluation/Treatment Row Name 06/24/24 1350 Transfer Assessment/Treatment Sit-Stand [place] level (Transfers) contact guard assist Stand-Sit [place] level(Transfers) contact guard assist Xyu-Qkogx-Ukv Assistive Device (Transfers) walker, rolling Row Name 06/24/24 1350 Gait Assessment/Treatment [place] (Gait) contact guard assist Assistive Device (Gait) [...] Intervention by discharge PT Anticipated Discharge Disposition long-term facility Row Name 06/24/24 1350 Planned Therapy [...] 1, PT) sit to supine;supine to sit [place] Level/Cues Needed (Bed Mobility Goal 1, PT) independent Assitive Devices (Bed Mobility Goal 1, PT) none Time Frame (Bed Mobility Goal 1, PT) by discharge Row Name 06/24/24 1418 Transfer Goal 1 (PT) Activity (Transfer Goal 1, PT) gof-zy-zsyfd/lqtor-hn-ieb [place] Level/Cues Needed (Transfer Goal 1, PT) modified independence Assitive Devices (Transfer Goal 1, PT) walker, rolling Time Frame (Transfer Goal 1, PT) by discharge Temi Santos, PT Licensure: [place], [place]: [id number] * Plan of Care - Magui Gee RN - 06/24/2024 1:58 PM EST Case Management Continued Stay Review Pertinent Clinical impacting hospitalization, level of care update, if indicated: 1530 [facility] offered bed, requesting auth, patient inquired on private room at [facility], CMRN inquired to admissions manager a [facility], patient is slated to admit to private room. Receiving nebs and iv abx. PT/OT eval completed, met with therapists, rec for STR, CMRN met with patient, agreeable to STR if able to admit to a quality facility that will provide effective care. Referral to [facility] - not contracted [facility] - interested, pending official bed offer - 1st choice [facility] - bed offer [facility] - pending [facility] - bed offer Recent STR admission, declines to return to previous facility. Discharge Planning Discharge Barrier: not medically ready Discharge Plan: [facility] - pending auth Choice list (with star [...] Associated Problem(s): Acute respiratory failure with hypoxia ([facility]) Acute Resp Failure: Evidenced on admission by SpO2 88% requiring 3-4L SAMPLE COLLECTOR. Tachypnea with RR increased to 22 RPM. She is not home-O2 dependent. -Wean supplemental O2 as tolerated, presently om room air -Taper steroids -Continue supportive therapy with nebulized bronchodilators, ICS and multiple antitussives. -Avoid increasing Tramadol in setting of COPD/asthma. * Assessment & Plan Note - Olivia Arteaga NP - 06/24/2024 1:40 PM EST Associated Problem(s): A-fib (CMS/HCC) ([facility]) A-Fib: Secondary hypercoagulable state due to [...] on admission by SpO2 88% requiring 3-4L SAMPLE COLLECTOR. Tachypnea with RR increased to 22 RPM. She is not home-O2 dependent. Presently weaned to 2L SAMPLE COLLECTOR, but still coarse with rhonchus cough. Reduced IV steroids as no wheezing on exam and she appears tearful and depressed. Continue supportive therapy with nebulized bronchodilators, ICS and multiple antitussives. Avoid increasing Tramadol in setting of COPD/asthma. * Assessment & Plan Note - Sydney David NP - 06/23/2024 4:17 PM EST Associated Problem(s): A-fib (CMS/HCC) ([facility]) A-Fib: HR controlled on Flecainide. Secondary [...] on admission by SpO2 88% requiring 3-4L SAMPLE COLLECTOR. Tachypnea with RR increased to 22 RPM. She is not home-O2 dependent. Presently weaned to 2L SAMPLE COLLECTOR, but still coarse with rhonchus cough. Reduced [...] to obtain the completed interpretation. Workstation ID: [id number] ECG 12 lead Result Date: 06/16/2024 All Results Sinus rhythm with 1st degree AV block Confirmed by Rosi Garcia ([id number]) on 06/16/2024 10:55:[address] Chest PE [...] to obtain the completed interpretation. Workstation ID: [id number] Up-to-date CT equipment and radiation dose reduction [...] to obtain the completed interpretation. Workstation ID: [id number] I have personally reviewed the patient's imaging [...] 2011-07-29 Past Surgical History: Procedure Laterality Date NC ARTHROCENTESIS ASPIR&/INJ MAJOR JT/BURSA W/O US Right History of Arthrocentesis Injection Of Hip Joint Right hip steroid injection NC ARTHROCENTESIS ASPIR&/INJ MAJOR JT/BURSA W/O US Right History of Arthrocentesis Injection Of Hip Joint Right RIGHT HIP INJECTION WITH STEROID NC ARTHROCENTESIS ASPIR&/INJ MAJOR JT/BURSA W/O US Right History of Arthrocentesis Injection Of Hip Joint Right RIGHT HIP INJECTION NC ARTHROCENTESIS ASPIR&/INJ MAJOR JT/BURSA W/O US Right History of Arthrocentesis Injection Of Hip Joint Right RIGHT HIP CORTISONE INJECTION NC KNEE SCOPE,DIAGNOSTIC N/A History of Arthroscopy Knee NC ALVES W/O FACETEC FORAMOT/DSKC 05/23 VRT SEG, CERVICAL N/A History of Laminectomy Lumbar NC LAP,CHOLECYSTECTOMY N/A History of Cholecystectomy Laparoscopic PROCEDURE [...] Skin: WDL Edema: 1+ MST Score= 0 Cultural/latter-day/ethnic preferences addressed as able. Nutrition Diagnosis: Impaired Nutrient Utilization related to Cardiac Dysfunction as evidenced by Clinical Notes. Status: new Goal 1: Adequate oral intake of at least 75% meals upon follow-up. Status: New BMI (Calculated): 42.95 BMI Assessment: BMI greater than 40: obesity grade III Weight Used For Calculations: 60 kg (132 lb 4.4 oz) Estimated Needs: Energy Calorie Requirements: 0084-5064 pam (25-30 pam/kg) Protein (gms/day): 60 g (1.0 g/kg) Fluid Requirements: 2700-4873 ml (25-30 ml/kg) Monitor/Evaluation: Food Intake: meet nutrition needs via PO intake Electrolyte/Renal Profile: WNL Glucose/Endocrine Profile: WNL Gastrointestinal Profile: Bowel regularity. No N, V, diarrhea, constipation Weight: Stable Nutrition-Focused Physical Findings: monitor for changes in skin integrity See flowsheets for additional information. Alexa Silva, MS, RD, LDN Genie Vora : 1950 CSN: [id number] * Plan of Care - Humera Oropeza [...] 30 days? No PCP: Bijal Fox NP Motel Front Desk Attendant: None - this proposal manager writer will ask the PCP to make a referral to Dr. Crystal after discharge. Search Optimization Analyst: None - this proposal manager writer will make a TCM with Mabel at [facility]. The patient would like f/up withDr. Stephanie strickland. Active Services at Home: [facility] - SN/PT/OT - The patient was at [facility] from 06/04/24 - 06/13/24 Resources Given: [facility] COPD educational booklet, [facility] Heart Failure educational literature, the [facility] Heart Failure weight/blood pressure tracking booklet, the [facility] Heart Failure zone guidelines and this proposal manager writer's business card. Equipment at Home: Oxygen - 2L - [employer]; pulse oximeter; B/P cuff; scale; CPAP; inhalers This proposal manager writer sent a secure chat 06/20/24 at 12:27 to the Hospitalist notifying them she does not havea home nebulizer and to order one along with the medications at [facility]. Learners [x]Patient []Family []Significant Other []Caregiver []Other Readiness [x]Eager [x]Acceptance []Nonacceptance []Refuses []Other Method [x]Explanation [x]Demonstration [x]Handout []Senior Counsel Commercial []Video []Class/Group []Teach-back Response [x]Verbalizes Understanding []Demonstrated [...] washhands with soap and water often. Use continuous vulcanizing machine operator when out in the community. Influenza, COVID, [...] evidence of PE. This Chronic Disease Nurse Speech Pathologist Assistant met with the patient at the bedside. Explained role. We discussed her new diagnoses of both CHF and COPD and reviewed the guidelines for both. 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 Pulmonology consulted, [...] Chronic obstructive pulmonary disease with acute exacerbation ([facility]) Patient was a former smoker. No [...] with services. Provided her with resources for [facility] and M[facility]. Demographics verified/Changes made: Confirmed. Active PCP/Recently seen: Yes. Medication issues: None. Transportation home: Son. Lives with: Alone. Home Type: Apartment. Current Services: [facility]. Oxygen at home: 2L O2, new. DME: Walker, care. Stairs outside: 12-optional. Stairs inside: 0 ADLs: Was independent. IADLs: Was independent-will need assist, provided her with information for [place]. HCP: Left at the bedside for patient [...] (interventions implemented as appropriate) Patient arrived from [facility] after 11pm. A/Ox4. VSS. Lung sounds [...] EDT Follow-Up [facility] Nephrology 100 [facility] [address] [place] [address] John Hendricks MD [address] [place] [id number] 01/08/2025 10:00 AM EDT Follow-Up [address] Cardiology 100 [facility] [address] [place] [address] Mabel Onofre, MEY 100 [facility] [address] [place] [address] Scheduled Orders Name Type Priority Associated Diagnoses Orde r Schedule Respiratory Culture w/Gram Stain Microbiology Routine Once for 1 Occurrences starting 06/16/2024 until 06/16/2024 documented as of this encounter Procedures * Due to [place] state law, this organization might not be [...] this encounter Results * Due to [place] state law, this organization might not be [...] obtain the completed interpretation. ? Workstation ID: [id number] Narrative 06/26/2024 2:05 PM EST EXAMINATION: ??XR ABDOMEN 1 VW INDICATION: RLQ abdominal pain, constipation COMPARISONS: None Resulting Agency Comment [id number] Procedure Note Calvin Katz MD - 06/26/2024 [...] possible to obtain thecompleted interpretation. Workstation ID: [id number] us Tia Oh SAMPLE COLLECTOR IMG XR PROCEDURES Final Result * (ABNORMAL) CBC (06/26/2024 6:22 AM EST) WBC 15.0(H) 4.8 - 10.8 10*3/uL 06/26/2024 6:42 AM EST [facility] RBC 4.51 4.20 - 5.40 10*6/uL 06/26/2024 6:42 AM EST [facility] Hemoglobin 13.1 11.7 - 15.5 g/dL 06/26/2024 6:42 AM EST [facility] Hematocrit 40.5 35.7 - 45.8 % 06/26/2024 6:42 AM EST [facility] MCV 89.8 81.0 - 99.0 fL 06/26/2024 6:42 AM EST [facility] MCH 29.0 26.0 - 34.0 pg 06/26/2024 6:42 AM EST [facility] MCHC 32.3 31.0 - 36.0 g/dL 06/26/2024 6:42 AM EST [facility] RDW 13.2 12.0 - 15.0 % 06/26/2024 6:42 AM EST [facility] Platelets 220 140 - 440 10*3/uL 06/26/2024 6:42 AM EST [facility] MPV 9.4 9.4 - 12.3 fL 06/26/2024 6:42 AM [facility] RDW Standard Deviation 43.5 36.4 - 46.3 fL 06/26/2024 6:42 AM [facility] Blood Structure of peripheral vein / Unknown Venipuncture / Unknown 06/26/2024 6:22 AM EST 06/26/2024 6:39 AM EST Olivia Arteaga NP LAB BLOOD ORDERABLES Final Result [facility] [address] [place] [address], * (ABNORMAL) Basic Metabolic Panel (06/26/2024 6:22 AM EST) NA 139 136 - 145 mmol/L 06/26/2024 7:31 AM EST [facility] K 5.4(H) 3.5 - 5.1 mmol/L 06/26/2024 7:31 AM EST [facility] Cl 101 98 - 109 mmol/L 06/26/2024 7:31 AM EST [facility] CO2 30 22 - 32 mmol/L 06/26/2024 7:31 AM EST [facility] BUN 33(H) 8 - 23 mg/dL 06/26/2024 7:31 AM EST [facility] Creatinine 1.24(H) 0.50 - 1.12 mg/dL 06/26/2024 7:31 AM EST [facility] Glucose 85 60 - 99 mg/dL 06/26/2024 7:31 AM EST [facility] Calcium 9.0 8.4 - 10.4 mg/dL 06/26/2024 7:31 AM EST [facility] Anion Gap 13 >=0 06/26/2024 7:31 AM EST [facility] eGFR 46(L) >=60 mL/min/1. 73m2 06/26/2024 7:31 AM EST [facility] Comment:The estimated glomer ular filtration rate [...] Arteaga NP LAB BLOOD ORDERABLES Final Result [facility] [address] [place] [address], [place] [phone] * (ABNORMAL) CBC (06/25/2024 7:04 AM EST) WBC 14.6(H) 4.8 - 10.8 10*3/uL 06/25/2024 7:32 AM EST [facility] RBC 4.09(L) 4.20 - 5.40 10*6/uL 06/25/2024 7:32 AM EST [facility] Hemoglobin 12.0 11.7 - 15.5 g/dL 06/25/2024 7:32 AM EST [facility] Hematocrit 36.0 35.7 - 45.8 % 06/25/2024 7:32 AM EST [facility] MCV 88.0 81.0 - 99.0 fL 06/25/2024 7:32 AM EST [facility] MCH 29.3 26.0 - 34.0 pg 06/25/2024 7:32 AM EST [facility] MCHC 33.3 31.0 - 36.0 g/dL 06/25/2024 7:32 AM EST [facility] RDW 13.2 12.0 - 15.0 % 06/25/2024 7:32 AM EST [facility] Platelets 205 140 - 440 10*3/uL 06/25/2024 7:32 AM EST [facility] MPV 9.6 9.4 - 12.3 fL 06/25/2024 7:32 AM EST [facility] RDW Standard Deviation 42.6 36.4 - 46.3 fL 06/25/2024 7:32 AM EST [facility] Blood Structure of peripheral vein / Unknown Venipuncture / Unknown 06/25/2024 7:04 AM EST 06/25/2024 7:28 AM EST us Olivia Arteaga NP LAB BLOOD ORDERABLES Final Result [facility] [address] [place] [address], [place] [phone] * (ABNORMAL) Basic Metabolic Panel (06/25/2024 7:04 AM EST) NA 135(L) 136 - 145 mmol/L 06/25/2024 8:00 AM EST [facility] K 5.1 3.5 - 5.1 mmol/L 06/25/2024 8:00 AM EST [facility] Cl 100 98 - 109 mmol/L 06/25/2024 8:00 AM EST [facility] CO2 28 22 - 32 mmol/L 06/25/2024 8:00 AM EST [facility] BUN 34(H) 8 - 23 mg/dL 06/25/2024 8:00 AM [facility] Creatinine 1.18(H) 0.50 - 1.12 mg/dL 06/25/2024 8:00 AM [facility] Glucose 86 60 - 99 mg/dL 06/25/2024 8:00 AM [facility] Calcium 8.7 8.4 - 10.4 mg/dL 06/25/2024 8:00 AM [facility] Anion Gap 12 >=0 06/25/2024 8:00 AM [facility] eGFR 49(L) >=60 mL/min/1. 73m2 06/25/2024 8:00 AM [facility] Comment:The estimated glomer ular filtration [...] EST 06/25/2024 7:32 AM EST Olivia Kincaidquez SAMPLE COLLECTOR LAB BLOOD ORDERABLES Final Result [facility] [address] [facility] [address] [place] [address], * (ABNORMAL) Basic metabolic panel (06/24/2024 12:58 PM EST) NA 134(L) 136 - 145 mmol/L 06/24/2024 1:53 PM EST [facility] K 5.3(H) 3.5 - 5.1 mmol/L 06/24/2024 1:53 PM EST [facility] Comment:ALL DELTAS REVIEWED Cl 100 98 - 109 mmol/L 06/24/2024 1:53 PM EST [facility] CO2 24 22 - 32 mmol/L 06/24/2024 1:53 PM EST [facility] BUN 37(H) 8 - 23 mg/dL 06/24/2024 1:53 PM EST [facility] Creatinine 1.17(H) 0.50 - 1.12 mg/dL 06/24/2024 1:53 PM EST [facility] Glucose 129(H) 60 - 99 mg/dL 06/24/2024 1:53 PM EST [facility] Calcium 9.1 8.4 - 10.4 mg/dL 06/24/2024 1:53 PM EST [facility] Anion Gap 15 >=0 06/24/2024 1:53 PM EST [facility] eGFR 50(L) >=60 mL/min/1. 73m2 06/24/2024 1:53 PM EST [facility] Comment:The estimated glomer ular filtration rate [...] BLOOD ORDERABLES Final Result Performing Organization Address City/[facility]/ZIP Co de Phone Number [facility] [address] [place] [address] [address] [place] [address], [place] [phone] * ECG 12 lead (06/24/2024 9:50 AM EST) Ventricular Rate EKG 73 BPM MUSE EKG Atrial Rate 73 BPM MUSE EKG NC Interval 228 ms MUSE EKG QRS Interval 128 ms MUSE EKG QT Interval 384 ms MUSE EKG QTC Interval 423 ms MUSE EKG P [place] 65 degrees MUSE EKG R [place] 41 degrees MUSE EKG T Wave [place] 61 degrees MUSE EKG 06/24/2024 9:50 AM EST 06/24/2024 5:36 PM EST Impressions MUSE EKG - 06/24/2024 5:36 PM EST Sinus rhythm with 1st degree AV block with occasional premature ventricular complexes Nonspecific intraventricular block When compared with ECG of 21-JUN-2024 07:26, No significant change was found Confirmed by Stephanie Hampton ([id number]) on 06/24/2024 5:36:28 PM Olivia Arteaga SAMPLE COLLECTOR ECG ORDERABLES Final Resul t Performing Organization Address City/[facility] Co de Phone Number MUSE EKG * (ABNORMAL) Basic metabolic panel (06/24/2024 7:27 AM EST) Pathologist [facility] NA 134(L) 136 - 145 mmol/L 06/24/2024 8:35 AM EST [facility] K 6.2(HH) 3.5 - 5.1 mmol/L 06/24/2024 8:35 AM EST [facility] Cl 100 98 - 109 mmol/L 06/24/2024 8:35 AM EST [facility] CO2 27 22 - 32 mmol/L 06/24/2024 8:35 AM EST [facility] BUN 37(H) 8 - 23 mg/dL 06/24/2024 8:35 AM EST [facility] Creatinine 1.23(H) 0.50 - 1.12 mg/dL 06/24/2024 8:35 AM EST [facility] Glucose 134(H) 60 - 99 mg/dL 06/24/2024 8:35 AM EST [facility] Calcium 8.7 8.4 - 10.4 mg/dL 06/24/2024 8:35 AM EST [facility] Anion Gap 13 >=0 06/24/2024 8:35 AM EST [facility] eGFR 47(L) >=60 mL/min/1. 73m2 06/24/2024 8:35 AM EST [facility] Comment:The estimated glomer ular filtration rate [...] David NP LAB BLOOD ORDERABLES Final Result [facility] [address] [facility] [address] [place] [address], * (ABNORMAL) CBC (06/24/2024 7:27 AM EST) WBC 15.1(H) 4.8 - 10.8 10*3/uL 06/24/2024 8:01 AM EST [facility] RBC 4.13(L) 4.20 - 5.40 10*6/uL 06/24/2024 8:01 AM EST [facility] Hemoglobin 12.2 11.7 - 15.5 g/dL 06/24/2024 8:01 AM EST [facility] Hematocrit 36.2 35.7 - 45.8 % 06/24/2024 8:01 AM EST [facility] MCV 87.7 81.0 - 99.0 fL 06/24/2024 8:01 AM EST [facility] MCH 29.5 26.0 - 34.0 pg 06/24/2024 8:01 AM EST [facility] MCHC 33.7 31.0 - 36.0 g/dL 06/24/2024 8:01 AM EST [facility] RDW 13.2 12.0 - 15.0 % 06/24/2024 8:01 AM EST [facility] Platelets 233 140 - 440 10*3/uL 06/24/2024 8:01 AM EST [facility] MPV 9.3(L) 9.4 - 12.3 fL 06/24/2024 8:01 AM [facility] RDW Standard Deviation 42.5 36.4 - 46.3 fL 06/24/2024 8:01 AM EST [facility] Blood Structure of peripheral vein / Unknown Venipuncture / Unknown 06/24/2024 7:27 AM EST 06/24/2024 7:56 AM EST Sydney David NP LAB BLOOD ORDERABLES Final Result [facility] [address] [facility] [address] [place] [address], [place] [phone] * (ABNORMAL) Potassium (06/23/2024 10:05 AM EST) K 5.6(H) 3.5 - 5.1 mmol/L 06/23/2024 10:58 AM EST [facility] Comment:REVIEWED Blood Structure of peripheral vein / Unknown Venipuncture / Unknown 06/23/2024 10:05 AM EST 06/23/2024 10:36 AM EST Narrative [facility] - 06/23/2024 10:58 AM EST Please check heparinized potassium, TY. us Sydney David SAMPLE COLLECTOR LAB BLOOD ORDERABLES Final Result [facility] [address] [place] [address], [place] [phone] * (ABNORMAL) Basic metabolic panel (06/23/2024 7:13 AM EST) Pathologist [facility] NA 134(L) 136 - 145 mmol/L 06/23/2024 8:09 AM EST [facility] K 06/23/2024 8:09 AM EST [facility] Comment:UNABLE TO REPORT DUE TO HEMOLYSIS Cl 100 98 - 109 mmol/L 06/23/2024 8:09 AM EST [facility] CO2 27 22 - 32 mmol/L 06/23/2024 8:09 AM EST [facility] BUN 36(H) 8 - 23 mg/dL 06/23/2024 8:09 AM EST [facility] Creatinine 1.08 0.50 - 1.12 mg/dL 06/23/2024 8:09 AM EST [facility] Glucose 119(H) 60 - 99 mg/dL 06/23/2024 8:09 AM EST [facility] Calcium 8.8 8.4 - 10.4 mg/dL 06/23/2024 8:09 AM EST [facility] Anion Gap 06/23/2024 8:09 AM EST [facility] Comment: UNABLE TO REPORT DUE TO HEMOLYSIS Unable to Calculate eGFR 55(L) >=60 mL/min/1. 73m2 06/23/2024 8:09 AM EST [facility] Comment:The estimated glomer ular filtration rate [...] EST 06/23/2024 7:36 AM EST Sydney David SAMPLE COLLECTOR LAB BLOOD ORDERABLES Final Result Performing Organization Address City/State/[facility] Co de Phone Number [facility] [address] [place] [address], * (ABNORMAL) CBC (06/23/2024 7:13 AM EST) WBC 17.3(H) 4.8 - 10.8 10*3/uL 06/23/2024 7:43 AM EST [facility] RBC 4.18(L) 4.20 - 5.40 10*6/uL 06/23/2024 7:43 AM EST [facility] Hemoglobin 12.3 11.7 - 15.5 g/dL 06/23/2024 7:43 AM EST [facility] Hematocrit 37.2 35.7 - 45.8 % 06/23/2024 7:43 AM EST [facility] MCV 89.0 81.0 - 99.0 fL 06/23/2024 7:43 AM EST [facility] MCH 29.4 26.0 - 34.0 pg 06/23/2024 7:43 AM EST [facility] MCHC 33.1 31.0 - 36.0 g/dL 06/23/2024 7:43 AM EST [facility] RDW 13.2 12.0 - 15.0 % 06/23/2024 7:43 AM EST [facility] Platelets 249 140 - 440 10*3/uL 06/23/2024 7:43 AM EST [facility] MPV 9.5 9.4 - 12.3 fL 06/23/2024 7:43 AM EST [facility] RDW Standard Deviation 43.3 36.4 - 46.3 fL 06/23/2024 7:43 AM EST [facility] Blood Structure of peripheral vein / Unknown Venipuncture / Unknown 06/23/2024 7:13 AM EST 06/23/2024 7:37 AM EST Sydney David SAMPLE COLLECTOR LAB BLOOD ORDERABLES Final Result Performing Organization Address City/State/[facility] Co de Phone Number [facility] [address] [place] [address], * X-Ray Chest 2 Views (06/22/2024 4:27 [...] obtain the completed interpretation. ? Workstation ID: [id number] Narrative 06/24/2024 9:35 AM EST COMPARISON: ??06/18/2024 FINDINGS AND Resulting Agency Comment [id number] Procedure Note Calvin Katz MD - 06/24/2024 COMPARISON: 06/18/2024 FINDINGS AND IMPRESSION: Interval clearing of prior LLL infiltrate/atelectasis. Lungs and pleuralspaces now clear. Heart size remains normal. If this radiology report contains a blank impression section, it is anincomplete radiology report. Please contact the interpreting radiologistor applicable radiology division as soon as possible to obtain thecompleted interpretation. Workstation ID: [id number] us Sydney David SAMPLE COLLECTOR IMG XR PROCEDURES Final Res ult * Lavender Top (06/22/2024 6:53 AM EST) Pathologist [facility] Extra Tube Hold for add-ons. 06/22/2024 11:05 AM EST [facility] Comment:Auto resulted. Blood Structure of peripheral vein / Unknown 06/22/2024 6:53 AM EST 06/22/2024 6:53 AM EST us Mj Mendenhall MD LAB BLOOD ORDERABLES Final R esult [facility] [address] [place] [address], [place] [phone] * (ABNORMAL) Basic Metabolic Panel (06/22/2024 6:38 AM EST) Pathologist [facility] NA 134(L) 136 - 145 mmol/L 06/22/2024 7:21 AM EST [facility] K 06/22/2024 7:21 AM EST [facility] Comment:UNABLE TO RESULT DUE TO HEMOLYSIS Cl 102 98 - 109 mmol/L 06/22/2024 7:21 AM EST [facility] CO2 23 22 - 32 mmol/L 06/22/2024 7:21 AM EST [facility] BUN 40(H) 8 - 23 mg/dL 06/22/2024 7:21 AM EST [facility] Creatinine 1.05 0.50 - 1.12 mg/dL 06/22/2024 7:21 AM EST [facility] Glucose 134(H) 60 - 99 mg/dL 06/22/2024 7:21 AM EST [facility] Calcium 8.4 8.4 - 10.4 mg/dL 06/22/2024 7:21 AM EST [facility] Anion Gap 06/22/2024 7:21 AM EST [facility] Comment: UNABLE TO RESULT DUE TO HEMOLYSIS Unable to Calculate eGFR 57(L) >=60 mL/min/1. 73m2 06/22/2024 7:21 AM EST [facility] Comment:The estimated glomer ular filtration rate [...] LAB BLOOD ORDERABLES Final R esult [facility] [address] [place] [address] [address] [place] [address], * ECG 12 lead For Preop? No (06/21/2024 7:26 AM EST) Ventricular Rate EKG 67 BPM MUSE EKG Atrial Rate 67 BPM MUSE EKG NC Interval 208 ms MUSE EKG QRS Interval 120 ms MUSE EKG QT Interval 414 ms MUSE EKG QTC Interval 437 ms MUSE EKG P Witherbee 50 degrees MUSE EKG R Witherbee 8 degrees MUSE EKG T Wave Witherbee 47 degrees MUSE EKG 06/21/2024 7:26 AM [...] - 145 mmol/L 06/21/2024 7:58 AM EST [facility] K 4.8 3.5 - 5.1 mmol/L 06/21/2024 7:58 AM EST [facility] Cl 102 98 - 109 mmol/L 06/21/2024 7:58 AM EST [facility] CO2 24 22 - 32 mmol/L 06/21/2024 7:58 AM EST [facility] BUN 45(H) 8 - 23 mg/dL 06/21/2024 7:58 AM EST [facility] Creatinine 1.15(H) 0.50 - 1.12 mg/dL 06/21/2024 7:58 AM EST [facility] Glucose 143(H) 60 - 99 mg/dL 06/21/2024 7:58 AM EST [facility] Calcium 8.6 8.4 - 10.4 mg/dL 06/21/2024 7:58 AM EST [facility] Anion Gap 16 >=0 06/21/2024 7:58 AM EST [facility] eGFR 51(L) >=60 mL/min/1. 73m2 06/21/2024 7:58 AM EST [facility] Comment:The estimated glomer ular filtration rate [...] EST 06/21/2024 7:01 AM EST Tia Oh SAMPLE COLLECTOR LAB BLOOD ORDERABLES Final Resul t Performing Organization Address [facility] Co de Phone Number [facility] [address] [address], * Troponin T, High Sensitivity (06/20/2024 10:19 AM EST) Troponin T High Sensitivity 14 6 - 14 ng/L 06/20/2024 11:08 AM EST [facility] Comment: Sk-Ruoqotcy-S level of 52 ng/L or higher at [...] be evaluated in line with the 4th [place] Definition of AMI. Troponin baseline and serial [...] ORDERABLES Final R esult Performing Organization Address [facility]/ZIP Co de Phone Number [facility] [address] [address], * (ABNORMAL) N-terminal ProBrain Natriuretic Peptide (06/20/2024 10:19 AM EST) Pathologist [facility] Pro-B-Type Natriuretic Peptide 2,459(H) <=900 pg/mL 06/20/2024 11:05 AM EST [facility] Comment: RULE IN CHF >/= 450 [...] ORDERABLES Final R esult Performing Organization Address City/State/[facility] Co de Phone Number [facility] [address] [place] [phone], * (ABNORMAL) Basic metabolic panel (06/20/2024 8:53 AM EST) Pathologist [facility] NA 136 136 - 145 mmol/L 06/20/2024 9:48 AM EST [facility] K 4.1 3.5 - 5.1 mmol/L 06/20/2024 9:48 AM EST [facility] Comment:ALL DELTAS REVIEWED Cl 102 98 - 109 mmol/L 06/20/2024 9:48 AM EST [facility] CO2 21(L) 22 - 32 mmol/L 06/20/2024 9:48 AM EST [facility] BUN 42(H) 8 - 23 mg/dL 06/20/2024 9:48 AM EST [facility] Creatinine 1.17(H) 0.50 - 1.12 mg/dL 06/20/2024 9:48 AM EST [facility] Glucose 164(H) 60 - 99 mg/dL 06/20/2024 9:48 AM EST [facility] Calcium 8.8 8.4 - 10.4 mg/dL 06/20/2024 9:48 AM EST [facility] Anion Gap 17 >=0 06/20/2024 9:48 AM EST [facility] eGFR 50(L) >=60 mL/min/1. 73m2 06/20/2024 9:48 AM EST [facility] Comment:The estimated glomer ular filtration rate [...] 06/20/2024 9:05 AM EST us Tia Oh SAMPLE COLLECTOR LAB BLOOD ORDERABLES Final Resul t [facility] [address] [facility] [address] [place] [address], * (ABNORMAL) Respiratory Culture (06/20/2024 7:37 AM EST) Respiratory Culture Moderate Rayna albicans(A) [facility] 06/22/2024 11:29 AM EST [facility] Gram Stain Result <25 per LPF White Blood Cells Seen 06/22/2024 11:29 AM EST [facility] Gram Stain Result <10 per LPF Epithelial Cells 06/22/2024 11:29 AM EST [facility] Gram Stain Result Rare Gram Positive Cocci in pairs 06/22/2024 11:29 AM EST [facility] Sputum Sputum / Unknown Non-Blood Collection / Unknown 06/20/2024 7:37 AM EST 06/20/2024 7:54 AM EST Narrative [facility] - 06/22/2024 11:29 AM EST Many normal respiratory beena present. us Tia Oh SAMPLE COLLECTOR LAB MICROBIOLOGY - GENERAL ORDER RHINA Final Result [facility] [address] [facility] [address] [place] [address], * (ABNORMAL) Basic metabolic panel (06/19/2024 6:15 AM EST) NA 137 136 - 145 mmol/L 06/19/2024 7:01 AM EST [facility] K 5.2(H) 3.5 - 5.1 mmol/L 06/19/2024 7:01 AM EST [facility] Cl 106 98 - 109 mmol/L 06/19/2024 7:01 AM EST [facility] CO2 19(L) 22 - 32 mmol/L 06/19/2024 7:01 AM EST [facility] BUN 41(H) 8 - 23 mg/dL 06/19/2024 7:01 AM EST [facility] Creatinine 1.12 0.50 - 1.12 mg/dL 06/19/2024 7:01 AM EST [facility] Glucose 139(H) 60 - 99 mg/dL 06/19/2024 7:01 AM EST [facility] Calcium 9.1 8.4 - 10.4 mg/dL 06/19/2024 7:01 AM EST [facility] Anion Gap 17 >=0 06/19/2024 7:01 AM EST [facility] eGFR 52(L) >=60 mL/min/1. 73m2 06/19/2024 7:01 AM EST [facility] Comment:The estimated glomer ular filtration rate [...] 06/19/2024 6:40 AM EST us Tia Oh SAMPLE COLLECTOR LAB BLOOD ORDERABLES Final Resul t [facility] [address] [place] [address] [address] [place] [address], * (ABNORMAL) CBC (06/19/2024 6:15 AM EST) WBC 13.0(H) 4.8 - 10.8 10*3/uL 06/19/2024 6:53 AM EST [facility] RBC 3.87(L) 4.20 - 5.40 10*6/uL 06/19/2024 6:53 AM EST [facility] Hemoglobin 11.2(L) 11.7 - 15.5 g/dL 06/19/2024 6:53 AM EST [facility] Hematocrit 33.8(L) 35.7 - 45.8 % 06/19/2024 6:53 AM EST [facility] MCV 87.3 81.0 - 99.0 fL 06/19/2024 6:53 AM EST [facility] MCH 28.9 26.0 - 34.0 pg 06/19/2024 6:53 AM EST [facility] MCHC 33.1 31.0 - 36.0 g/dL 06/19/2024 6:53 AM EST [facility] RDW 13.2 12.0 - 15.0 % 06/19/2024 6:53 AM EST [facility] Platelets 238 140 - 440 10*3/uL 06/19/2024 6:53 AM EST [facility] MPV 10.0 9.4 - 12.3 fL 06/19/2024 6:53 AM EST [facility] RDW Standard Deviation 41.9 36.4 - 46.3 fL 06/19/2024 6:53 AM EST [facility] Blood Structure of peripheral vein / Unknown Venipuncture / Unknown 06/19/2024 6:15 AM EST 06/19/2024 6:37 AM EST us Tia Oh SAMPLE COLLECTOR LAB BLOOD ORDERABLES Final Resul t Performing Organization Address [facility] Co de Phone Number [facility] [address] [facility] [address] [place] [address], * Legionella Antigen, Urine (06/18/2024 6:44 PM EST) Legionella pneumophila Urine Ag Negative Negative [facility] 06/19/2024 8:53 AM EST [facility] Comment: INTERPRETATION: Presumptive negative for Legionella [...] 6:44 PM EST 06/18/2024 7:15 PM EST [facility] - 06/19/2024 8:53 AM EST [...] ORDERABLES Final R esult Performing Organization Address City/[facility]/ZIP Co de Phone Number [facility] [address] [address], * Streptococcus Pneumoniae Antigen Urine (06/18/2024 6:44 PM EST) Streptococcus pneumoniae Antigen, Urine Negative Negative [facility] 06/19/2024 8:53 AM EST [facility] Comment: INTERPRETATION: Presumptive negative for pneumococcal [...] ORDERABLES Final R esult Performing Organization Address [facility] Co de Phone Number [facility] [address] [address], * XR Chest Portable 1 View (06/18/2024 [...] obtain the completed interpretation. ? Workstation ID: [id number] Narrative 06/20/2024 10:17 AM EST EXAMINATION: XR CHEST PORTABLE 1 VIEW COMPARISON: CT chest pulmonary angiogram 06/15/2024 and other priors. FINDINGS: Lines/Tubes/Devices: None. Lungs: Redemonstrated left basilar consolidation. Pleura: No pleural effusions or pneumothorax. Heart/Mediastinum: Cardiomediastinal silhouette is similar to prior. Bones/Soft tissues: No acute osseous abnormality. Resulting Agency Comment [id number] Procedure Note Apolonia Nolen MD - 06/20/2024 [...] possible to obtain thecompleted interpretation. Workstation ID: [id number] us Tia Oh SAMPLE COLLECTOR IMG XR PROCEDURES Final Result * (ABNORMAL) N-terminal ProBrain Natriuretic Peptide (06/18/2024 2:12 PM EST) Pro-B-Type Natriuretic Peptide 2,998(H) <=900 pg/mL 06/18/2024 3:10 PM EST [facility] Comment: RULE IN CHF >/= 450 pg/mL for patients <50 years old RULE IN CHF >/= 900 pg/mL for patients 50-75 years old RULE IN CHF >/= 1800 pg/mL for patients >75 years old RULE OUT CHF </= 300 pg/mL (not age specific) Blood Structure of peripheral vein / Unknown Venipuncture / Unknown 06/18/2024 2:12 PM EST 06/18/2024 2:23 PM EST Narrative [facility] - 06/18/2024 3:10 PM EST All deltas reviewed us Tia Oh SAMPLE COLLECTOR LAB BLOOD ORDERABLES Final Resul t [facility] [address] [facility] [address] [place] [address], [place] [phone] * TSH (06/17/2024 7:03 AM EST) TSH 0.874 0.270 - 4.200 uIU/mL 06/17/2024 2:31 PM EST [facility] Comment: Females: 1st trimester ? 0.150-4.000 ??IU/mL 2nd trimester ?? 0.310-4.170 ?IU/mL 3rd trimester ?0.380-4.150 ?IU/mL Blood Structure of peripheral vein / Unknown Venipuncture / Unknown 06/17/2024 7:03 AM EST 06/17/2024 7:23 AM EST us Tia Oh SAMPLE COLLECTOR LAB BLOOD ORDERABLES Final Resul t [facility] [address] [facility] [address] [place] [address], [place] [phone] * (ABNORMAL) CBC Auto Differential (06/17/2024 7:03 AM EST) Pathologist [facility] WBC 11.6(H) 4.8 - 10.8 10*3/uL 06/17/2024 7:30 AM EST [facility] RBC 3.94(L) 4.20 - 5.40 10*6/uL 06/17/2024 7:30 AM [facility] Hemoglobin 11.7 11.7 - 15.5 g/dL 06/17/2024 7:30 AM EST [facility] Hematocrit 35.4(L) 35.7 - 45.8 % 06/17/2024 7:30 AM EST [facility] MCV 89.8 81.0 - 99.0 fL 06/17/2024 7:30 AM EST [facility] MCH 29.7 26.0 - 34.0 pg 06/17/2024 7:30 AM EST [facility] MCHC 33.1 31.0 - 36.0 g/dL 06/17/2024 7:30 AM [facility] RDW 12.9 12.0 - 15.0 % 06/17/2024 7:30 AM [facility] RDW Standard Deviation 42.6 36.4 - 46.3 fL 06/17/2024 7:30 AM [facility] Platelets 257 140 - 440 10*3/uL 06/17/2024 7:30 AM [facility] Comment:REV IEWED MPV 10.0 9.4 - 12.3 fL 06/17/2024 7:30 AM [facility] Neutrophil % 81.6(H) 50.0 - 75.0 % 06/17/2024 7:30 AM [facility] Immature Grans % 0.8 0.0 - 0.9 % 06/17/2024 7:30 AM [facility] Lymphocyte % 11.8(L) 20.0 - 44.0 % 06/17/2024 7:30 AM [facility] Monocyte % 5.6 0.0 - 14.0 % 06/17/2024 7:30 AM [facility] Eosinophil % 0.0 0.0 - 5.0 % 06/17/2024 7:30 AM [facility] Basophil % 0.2 0.0 - 2.0 % 06/17/2024 7:30 AM [facility] Neutrophil # 9.48(H) 1.80 - 7.70 10*3/uL 06/17/2024 7:30 AM [facility] Immature Grans # 0.09(H) 0.00 - 0.03 10*3/uL 06/17/2024 7:30 AM [facility] Lymphocyte # 1.40 1.00 - 4.75 10*3/uL 06/17/2024 7:30 AM [facility] Monocyte # 0.70(H) 0.00 - 0.60 10*3/uL 06/17/2024 7:30 AM [facility] Eosinophil # <0.03 0.00 - 0.80 10*3/uL 06/17/2024 7:30 AM [facility] Basophil # <0.03 0.00 - 0.20 10*3/uL 06/17/2024 7:30 AM EST [facility] nRBC % 0.0 0 - 0 /100 WBCs 06/17/2024 7:30 AM EST [facility] nRBC # <0.01 0.00 - 0.13 10*3/uL 06/17/2024 7:30 AM EST [facility] Blood Structure of peripheral vein / Unknown Venipuncture / Unknown 06/17/2024 7:03 AM EST 06/17/2024 7:22 AM EST us Mj Mendenhall MD LAB BLOOD ORDERABLES Final R esult [facility] [address] [place] [address], [place] [phone] * (ABNORMAL) Comprehensive Metabolic Panel (06/17/2024 7:03 AM EST) NA 139 136 - 145 mmol/L 06/17/2024 8:07 AM EST [facility] K 5.1 3.5 - 5.1 mmol/L 06/17/2024 8:07 AM EST [facility] Cl 106 98 - 109 mmol/L 06/17/2024 8:07 AM EST [facility] CO2 23 22 - 32 mmol/L 06/17/2024 8:07 AM EST [facility] Anion Gap 15 >=0 06/17/2024 8:07 AM EST [facility] Glucose 111(H) 60 - 99 mg/dL 06/17/2024 8:07 AM EST [facility] Creatinine 0.99 0.50 - 1.12 mg/dL 06/17/2024 8:07 AM EST [facility] Calcium 9.4 8.4 - 10.4 mg/dL 06/17/2024 8:07 AM EST [facility] Total Protein 6.8 6.6 - 8.7 g/dL 06/17/2024 8:07 AM EST [facility] Albumin 4.0 3.5 - 5.0 g/dL 06/17/2024 8:07 AM EST [facility] Bilirubin, Total 0.1(L) 0.2 - 1.2 mg/dL 06/17/2024 8:07 AM EST [facility] Alkaline Phosphatase 109 40 - 129 U/L 06/17/2024 8:07 AM EST [facility] AST 23 0 - 33 U/L 06/17/2024 8:07 AM EST [facility] ALT 26 <=33 U/L 06/17/2024 8:07 AM EST [facility] BUN 27(H) 8 - 23 mg/dL 06/17/2024 8:07 AM EST [facility] eGFR 61 >=60 mL/min/1. 73m2 06/17/2024 8:07 AM EST [facility] Comment:The estimated glomer ular filtration rate [...] - 4.2 g/dL 06/17/2024 8:07 AM EST [facility] A/G Ratio 1.4(L) 1.5 - 3.0 06/17/2024 8:07 AM EST [facility] Blood Structure of peripheral vein / Unknown Venipuncture / Unknown 06/17/2024 7:03 AM EST 06/17/2024 7:23 AM EST us Mj Mendenhall MD LAB BLOOD ORDERABLES Final R esult [facility] [address] [place] [address], * Lavender Top (06/16/2024 7:54 AM EST) Extra Tube Hold for add-ons. 06/16/2024 12:05 PM EST [facility] Comment:Auto resulted. Blood Structure of peripheral vein / Unknown 06/16/2024 7:54 AM EST 06/16/2024 7:54 AM EST Mj Mendenhall MD LAB BLOOD ORDERABLES Final R esult Performing Organization Address City/[facility]/ZIP Co de Phone Number [facility] [address] [address], * Light Green Top (06/16/2024 7:54 AM EST) Extra Tube Hold for add-ons. 06/16/2024 12:05 PM EST [facility] Comment:Auto resulted. Blood Structure of peripheral vein / Unknown 06/16/2024 7:54 AM EST 06/16/2024 7:54 AM EST Mj Mendenhall MD LAB BLOOD ORDERABLES Final R esult Performing Organization Address City/[facility]/ZIP Co de Phone Number [facility] [address] [address], * Mycoplasma pneumoniae Antibodies, IgG/IgM (06/16/2024 7:42 [...] BLOOD ORDERABLES Final R esult HILARY DAVID [address] [place] [address] [address], [place] [address], [place] [phone] HILARY MARTINEZ (SEPULVEDA) [address] [place], [place] , [place] * CT Chest PE [...] obtain the completed interpretation. ? Workstation ID: [id number] Up-to-date CT equipment and radiation dose reduction [...] possible to obtain thecompleted interpretation. Workstation ID: [id number] Up-to-date CT equipment and radiation dose reduction techniques wereemployed. CTDIvol: .8 - 21.4 mGy. DLP: 802 mGy-cm. us Kevin Newsome MD IMIman CT PROCEDURES Final Result * (ABNORMAL) Blood gas, venous (06/15/2024 10:17 PM EST) pH, Venous 7.24(LL) 7.35 - 7.45 06/16/2024 2:54 AM EST [facility] RT pCO2, Venous 57.0 mm[Hg] 06/16/2024 2:54 AM EST [facility] RT pO2, Keegan 138.0 mm[Hg] 06/16/2024 2:54 AM EST [facility] RT HCO3, Venous 22 mmol/L 06/16/2024 2:54 AM EST [facility] RT O2 Sat, Venous 97.8 % 06/16/2024 2:54 AM EST [facility] RT Base Excess, Keegan -3.6 mmol/L 06/16/2024 2:54 AM EST [facility] RT Blood Structure of peripheral vein / Unknown Venipuncture / Unknown 06/15/2024 10:17 PM EST 06/16/2024 2:52 AM EST us Kevin Newsome MD LAB BLOOD ORDERABLES Final Resul t Performing Organization Address [facility]/ZIP Co de Phone Number [facility] [address] [place] [address], [place] * Lactic Acid, Plasma (06/15/2024 10:17 PM EST) Lactic Acid 0.7 0.5 - 2.2 mmol/L 06/15/2024 11:02 PM EST [facility] Blood Structure of peripheral vein / Unknown Venipuncture / Unknown 06/15/2024 10:17 PM EST 06/15/2024 10:31 PM EST us Kevin Newsome MD LAB BLOOD ORDERABLES Final Resul t Performing Organization Address [facility] Co de Phone Number [facility] [address] [address], [place] [phone] * Blood Culture (06/15/2024 10:17 PM EST) Blood Culture No growth after 5 days 06/20/2024 11:05 PM EST [facility] Blood Structure of peripheral vein / Unknown Venipuncture / Unknown 06/15/2024 10:17 PM EST 06/15/2024 10:39 PM EST us Kevin Newsome MD LAB MICROBIOLOGY - GENERAL ORDER RHINA Final Result Performing Organization Address City/[facility] Co de Phone Number [facility] [address] [address], [place] [phone] * Blood Culture (06/15/2024 10:17 PM EST) Blood Culture No growth after 5 days 06/20/2024 11:05 PM EST [facility] Blood Structure of peripheral vein / Unknown Venipuncture / Unknown 06/15/2024 10:17 PM EST 06/15/2024 10:39 PM EST Kevin Newsome MD LAB MICROBIOLOGY - GENERAL ORDER RHINA Final Result Performing Organization Address [facility] de Phone Number [facility] [address] [address], * Troponin T, High Sensitivity X2 (now + 2hrs) (06/15/2024 10:17 PM EST) Troponin T High Sensitivity 12 6 - 14 ng/L 06/15/2024 11:01 PM EST [facility] Comment: Oa-Emykdukz-Q level of 52 ng/L or higher at [...] be evaluated in line with the 4th [place] Definition of AMI. Troponin baseline and serial [...] ORDERABLES Final R esult Performing Organization Address City/[facility]/ZIP Co de Phone Number [facility] [address] [address], * XR Chest 2 vw. Standard (06/15/2024 [...] obtain the completed interpretation. ? Workstation ID: [id number] Narrative 06/15/2024 8:30 PM EST COMPARISON: Chest x-ray 06/03/2024 FINDINGS AND Resulting Agency Comment [id number] Procedure Note Ruperto Huang MD - 06/15/2024 [...] possible to obtain thecompleted interpretation. Workstation ID: [id number] us Calvin Fontenot MD IMG XR PROCEDURES Final Resu lt * ECG 12 lead (06/15/2024 8:08 PM EST) Ventricular Rate EKG 67 BPM MUSE EKG Atrial Rate 67 BPM MUSE EKG NC Interval 282 ms MUSE EKG QRS Interval 116 ms MUSE EKG QT Interval 412 ms MUSE EKG QTC Interval 435 ms MUSE EKG P [place] 68 degrees MUSE EKG R [place] 18 degrees MUSE EKG T Wave [place] 51 degrees MUSE EKG 06/15/2024 8:08 PM EST 06/16/2024 10:55 AM EST Impressions MUSE EKG - 06/16/2024 10:55 AM EST Sinus rhythm with 1st degree AV block Confirmed by Rosi Garcia ([id number]) on 06/16/2024 10:55:43 AM Calvin Fontenot MD ECG ORDERABLES Final Result Performing Organization Address City/[facility]/ZIP Co de Phone Number MUSE EKG * Troponin T, High Sensitivity X2 (now + 2hrs) (06/15/2024 8:00 PM EST) Troponin T High Sensitivity 14 6 - 14 ng/L 06/15/2024 8:35 PM EST [facility] Comment: Lk-Mrxeorou-U level of 52 ng/L or higher at [...] be evaluated in line with the 4th [place] Definition of AMI. Troponin baseline and serial [...] ORDERABLES Final R esult Performing Organization Address City/[facility]/ZIP Co de Phone Number [facility] [address] [place] [address], * N-terminal ProBrain Natriuretic Peptide (06/15/2024 8:00 PM EST) Pro-B-Type Natriuretic Peptide 295 <=900 pg/mL 06/15/2024 8:33 PM EST [facility] Comment: RULE IN CHF >/= 450 pg/mL for patients <50 years old RULE IN CHF >/= 900 pg/mL for patients 50-75 years old RULE IN CHF >/= 1800 pg/mL for patients >75 years old RULE OUT CHF </= 300 pg/mL (not age specific) Blood Structure of peripheral vein / Unknown Venipuncture / Unknown 06/15/2024 8:00 PM EST 06/15/2024 8:09 PM EST Calivn Fontenot MD LAB BLOOD ORDERABLES Final R esult [facility] [address] [place] [id number], * (ABNORMAL) Basic Metabolic Panel (06/15/2024 8:00 PM EST) NA 142 136 - 145 mmol/L 06/15/2024 8:35 PM EST [facility] K 4.6 3.5 - 5.1 mmol/L 06/15/2024 8:35 PM EST [facility] Cl 109 98 - 109 mmol/L 06/15/2024 8:35 PM EST [facility] CO2 23 22 - 32 mmol/L 06/15/2024 8:35 PM EST [facility] BUN 30(H) 8 - 23 mg/dL 06/15/2024 8:35 PM EST [facility] Creatinine 1.25(H) 0.50 - 1.12 mg/dL 06/15/2024 8:35 PM EST [facility] Glucose 126(H) 60 - 99 mg/dL 06/15/2024 8:35 PM EST [facility] Calcium 8.9 8.4 - 10.4 mg/dL 06/15/2024 8:35 PM EST [facility] Anion Gap 15 >=0 06/15/2024 8:35 PM EST [facility] eGFR 46(L) >=60 mL/min/1. 73m2 06/15/2024 8:35 PM EST [facility] Comment:The estimated glomer ular filtration rate [...] LAB BLOOD ORDERABLES Final R esult [facility] [address] [place] [address], * (ABNORMAL) CBC Auto Differential (06/15/2024 8:00 PM EST) WBC 4.9 4.8 - 10.8 10*3/uL 06/15/2024 8:19 PM EST [facility] RBC 3.86(L) 4.20 - 5.40 10*6/uL 06/15/2024 8:19 PM EST [facility] Hemoglobin 11.4(L) 11.7 - 15.5 g/dL 06/15/2024 8:19 PM EST [facility] Hematocrit 35.2(L) 35.7 - 45.8 % 06/15/2024 8:19 PM EST [facility] MCV 91.2 81.0 - 99.0 fL 06/15/2024 8:19 PM EST [facility] MCH 29.5 26.0 - 34.0 pg 06/15/2024 8:19 PM EST [facility] MCHC 32.4 31.0 - 36.0 g/dL 06/15/2024 8:19 PM EST [facility] RDW 12.9 12.0 - 15.0 % 06/15/2024 8:19 PM EST [facility] RDW Standard Deviation 43.3 36.4 - 46.3 fL 06/15/2024 8:19 PM EST [facility] Platelets 190 140 - 440 10*3/uL 06/15/2024 8:19 PM EST [facility] MPV 10.0 9.4 - 12.3 fL 06/15/2024 8:19 PM [facility] Neutrophil % 53.9 50.0 - 75.0 % 06/15/2024 8:19 PM [facility] Immature Grans % 0.4 0.0 - 0.9 % 06/15/2024 8:19 PM EST [facility] Lymphocyte % 32.0 20.0 - 44.0 % 06/15/2024 8:19 PM EST [facility] Monocyte % 10.0 0.0 - 14.0 % 06/15/2024 8:19 PM EST [facility] Eosinophil % 3.3 0.0 - 5.0 % 06/15/2024 8:19 PM EST [facility] Basophil % 0.4 0.0 - 2.0 % 06/15/2024 8:19 PM EST [facility] Neutrophil # 2.63 1.80 - 7.70 10*3/uL 06/15/2024 8:19 PM EST [facility] Immature Grans # <0.03 0.00 - 0.03 10*3/uL 06/15/2024 8:19 PM EST [facility] Lymphocyte # 1.60 1.00 - 4.75 10*3/uL 06/15/2024 8:19 PM EST [facility] Monocyte # 0.50 0.00 - 0.60 10*3/uL 06/15/2024 8:19 PM EST [facility] Eosinophil # 0.20 0.00 - 0.80 10*3/uL 06/15/2024 8:19 PM EST [facility] Basophil # <0.03 0.00 - 0.20 10*3/uL 06/15/2024 8:19 PM EST [facility] nRBC % 0.0 0 - 0 /100 WBCs 06/15/2024 8:19 PM EST [facility] nRBC # <0.01 0.00 - 0.13 10*3/uL 06/15/2024 8:19 PM EST [facility] Blood Structure of peripheral vein / Unknown Venipuncture / Unknown 06/15/2024 8:00 PM EST 06/15/2024 8:09 PM EST Calvin Fontenot MD LAB BLOOD ORDERABLES Final R esult [facility] [address] [place] [address] [address] [place] [address], * COVID-19, Flu A/B & RSV RNA PCR, Symptomatic (06/15/2024 7:58 PM EST) Pathologist [facility] PCR, SARS CoV-2 RNA Not Detected Not Detected CEPHEID GENEXPERT 06/15/2024 8:48 PM EST [facility] Flu A RNA PCR Not Detected Not Detected CEPHEID GENEXPERT 06/15/2024 8:48 PM EST [facility] Flu B RNA PCR Not Detected Not Detected CEPHEID GENEXPERT 06/15/2024 8:48 PM EST [facility] RSV RNA PCR Not Detected Not Detected CEPHEID GENEXPERT 06/15/2024 8:48 PM EST [facility] Comment: Limitations: This RSV test is [...] PM EST 06/15/2024 8:09 PM EST Narrative [facility] - 06/15/2024 8:48 PM EST Methodology: The Com[employer]365 GeneXpert CoV-2/Flu/RSV plus assay is For Use Under an Emergency Use Authorization (EUA) Only with [employer]. The CoV-2/Flu/RSV plus assay is a [...] AND STOOLS O RDERABLES Final Result [facility] [address] [place] [address], [place] [phone] * HEART & VASCULAR - SCANNED (06/15/2024) [...] pulmonary disease with acute exacerbation (HCC) A-fib ([facility]) (HCC) Atrial fibrillation Lumbar canal stenosis HLD (hyperlipidemia) Other and unspecified hyperlipidemia Hypothyroidism Unspecified hypothyroidism Severe asthma with exacerbation Acute respiratory failure with hypoxia (HCC) Acute pulmonary edema (HCC) Unspecified acute edema of lung Diastolic CHF, acute ([facility]) (HCC) Elevated serum creatinine Other nonspecific [...] Once, On Mon06/16/24 at 0100, 1 dose, ADD-Frisco bag, Reason for Therapy: Bacterial Infection Documented, Indication: Pneumonia New Bag/Syringe 06/16/2024 2:13 AM EST 500 mg 250 mL/hr azithromycin (ZITHROMAX) 500 mg in 0.9% NaCl 250 mL IVPB 500 mg, intravenous, at 250 mL/hr, Administer over 1 Hours, Daily, First dose (after last reorder) on Mon06/17/24 at 0400, 5 doses, Last dose on Mon06/21/24 at 0400, ADD-Frisco bag, Reason for Therapy: Bacterial Infection Documented, [...] Provider: Elise Mills LPN)1343 (Given - Provider: Elies Mills LPN)1757 (Given - Provider: Ailyn Washington [...] 0927 (Not Given - Provider: Sophia Fitzpatrick, HUMAN RESOURCES COORDINATOR - Reason: Other - See Comment - [...] 0926 (Not Given - Provider: Sophia Fitzpatrick, HUMAN RESOURCES COORDINATOR - Reason: Other - See Comment - [...] documented as of this encounter Care Teams Tank Shop Supervisor Relationship Specialty Start Date End Date Bijal Fox, SAMPLE COLLECTOR [address] [place] [address] PCP - General Family Medicine 05/30/24 documented as of this encounter
--- OUTSIDE RECORDS SUMMARY | 2024-07-12 11:02 | XMS_ITS | Encounter Summary ---
Author Organization [facility] Address [address] [place] [address] Care Team Providers Care Land Survey Technician Name Role Phone Bijal Fox NP Primary Care Provider [phone] Encounter Details Date Type Department Care Team (Late st Contact Info) Description 07/02/2024 10:05 AM EST Lab [facility] Site Department [address] [place] [address] Social History Tobacco Use Types Packs/Day Years Used Date Smoking Tobacco: Former Smokeless Tobacco: Never Comments:: Alcohol Use Standard Drinks/Week Comments Not Currently 0 (1 standard drink = 0.6 oz pur e alcohol) [facility] Utilities Answer Date Recorded In the [...] Upcoming Encounters Date Type Department Care Team ([facility] st Contact Info) Description 08/01/2024 2:00 PM EDT Follow-Up [facility] Nephrology [address] [place] [address] [address] [place] [address] John Hendricks MD [address] [facility] [address] [place] [address] 01/08/2025 10:00 AM EDT Follow-Up [facility] 100 [facility] Cardiology 100 [facility] [address] [place] [address] Mabel Onofre NP [address] [place] [address] [address] [place] [address] documented as of this encounter Visit Diagnoses Not on filedocumented in this encounter Care Teams Land Survey Technician Relationship Specialty Start Date End Date Bijal Fox NP [address] [place] [address] [address] [place] [address] PCP - General Family Medicine 05/30/24 documented as of this encounter
--- OUTSIDE RECORDS SUMMARY | 2024-07-12 11:02 | XMS_ITS | Encounter Summary ---
Author Organization [facility] Address [address] [place] [address] Care Team Providers Care Microwave Technician Name Role Phone Bijal Fox NP Primary Care Provider [phone] Encounter Details Date Type Department Care Team (Late st Contact Info) Description 07/01/2024 9:05 AM EST Lab [facility] Site Department [address] [place] [address] Diastolic heart failure, unspecified HF chronicity (HCC) Social History Tobacco Use Types Packs/Day Years Used Date Smoking Tobacco: Former Smokeless Tobacco: Never Comments:: Alcohol Use Standard Drinks/Week Comments Not Currently 0 (1 standard drink = 0.6 oz pur e alcohol) [facility] Utilities Answer Date Recorded In the past [...] Description 08/01/2024 2:00 PM EDT Follow-Up [facility] Nephrology [address] [place] [address] [address] [place] [address] John Hendricks MD [address] [address] 01/08/2025 10:00 AM EDT Follow-Up [address] Cardiology [address] [place] [address] Mabel Onofre NP [address] [place] [address] documented as of this encounter Procedures * [...] 288 <=900 pg/mL 07/01/2024 9:39 AM EST [facility] Comment: RULE IN CHF >/= [...] EST 07/01/2024 9:05 AM EST Mabel Onofre VIDEO PLAYER MECHANIC LAB BLOOD ORDERABLES Final Result Performing Organization Address City/State/[facility] Co de Phone Number [facility] [address] [place] [address], * (ABNORMAL) Basic metabolic panel (07/01/2024 8:39 AM EST) NA 140 136 - 145 mmol/L 07/01/2024 9:36 AM EST [facility] K 5.3(H) 3.5 - 5.1 mmol/L 07/01/2024 9:36 AM EST [facility] Cl 102 98 - 109 mmol/L 07/01/2024 9:36 AM EST [facility] CO2 29 22 - 32 mmol/L 07/01/2024 9:36 AM EST [facility] BUN 34(H) 8 - 23 mg/dL 07/01/2024 9:36 AM EST [facility] Creatinine 1.27(H) 0.50 - 1.12 mg/dL 07/01/2024 9:36 AM EST [facility] Glucose 113(H) 60 - 99 mg/dL 07/01/2024 9:36 AM EST [facility] Calcium 8.9 8.4 - 10.4 mg/dL 07/01/2024 9:36 AM EST [facility] Anion Gap 14 >=0 07/01/2024 9:36 AM EST [facility] eGFR 45(L) >=60 mL/min/1. 73m2 07/01/2024 9:36 AM EST [facility] Comment:The estimated glomer ular [...] Onofre NP LAB BLOOD ORDERABLES Final Result [facility] [address] [place] [address], documented in this encounter Visit Diagnoses Diagnosis Diastolic heart failure, unspecified HF chronicity (HCC) documented in this encounter Care Teams Microwave Technician Relationship Specialty Start Date End Date Bijal Fox NP [address] [place] [address] PCP - General Family Medicine 05/30/24 documented as of this encounter
--- OUTSIDE RECORDS SUMMARY | 2024-07-12 11:02 | XMS_ITS | Encounter Summary ---
Author Organization [facility] Address [address] [place] [address] Care Team Providers Care Prosthetics Lab Technician Name Role Phone Brandyn Pagan MD Primary Care Provider Unavaila Radha Fink NP Unavailable Unavailable Unknown Pcp, Non Rmg Primary Care Provider Unava ilable Encounter Details Date Type Department Care Team (Late st Contact Info) Description 01/04/2017 Orders Only [facility] [address] [place] [address] Radha Spangler NP Social History Tobacco Use [...] 017 9:26 AM EDT) No Eineberg, Radha, DIRECTOR OF BUSINESS DEVELOPMENT documented as of this encounter Procedures * Due to [place] mySkin law, this organization might not be sharing [...] this encounter Results * Due to [place] mySkin law, this organization might not be sharing negative HIV tests. * (ABNORMAL) BASIC METABOLIC PANEL WITH (GFR) (01/04/2017 1:11 PM EDT) Glucose 97 65 - 99 mg/dL [facility] Comment:Fasting reference in [facility] Urea Nitrogen Blood (BUN) 27(H) 7 - 25 mg/dL [facility] Creatinine 1.18(H) 0.50 - 0.99 mg/dL [facility] Comment: For patients >49 years of age, the reference limit for Creatinine is approximately 13% higher for people identified as -Irish. GFR 48(L) > OR = 60 mL/min/1. [...] needs for GFR calculation. Resulting Agency Comment [id number] Radha Spangler NP LABORATORY Final Result Performing Organization Address [facility] Co de Phone Number [facility] [address] [place] [address] * HEPATIC FUNCTION PANEL (ALT,AST,ALK PH,BILI'S,TP,ALB) (01/04/2017 [...] 10:19 PM EDT Narrative Resulting Agency Comment [id number] Radha Spangler NP LABORATORY Final Result Performing Organization Address [facility] Co de Phone Number [facility] [address] [place] [address] * (ABNORMAL) HEMOGLOBIN A1C (01/04/2017 1:11 PM [...] 10:19 PM EDT Narrative Resulting Agency Comment [id number] Radha Spangler NP LABORATORY Final Result Performing Organization Address [facility] de Phone Number [facility] [address] [place] [address] * (ABNORMAL) LIPID PANEL WITH REFLEX TO [...] 10:19 PM EDT Narrative Resulting Agency Comment [id number] Radha Spangler NP LABORATORY Final Result Performing Organization Address [facility] de Phone Number [facility] [address] [place] [address] * (ABNORMAL) CBC INCLUDES DIFFERENTIAL AND PLATELET [...] 10:19 PM EDT Narrative Resulting Agency Comment [id number] Radha Spangler NP LAB SAME DAY RESULT Final Re sult [facility] [address] [place] [address] documented in this encounter Visit Diagnoses Diagnosis Nail discoloration Other specified disease of nail Transaminitis Nonspecific elevation of levels of transaminase or lactic acid dehydrogenase (LDH) Benign essential HTN Essential hypertension, benign CKD (chronic kidney disease), stage III (HCC) Chronic kidney disease, Stage III (moderate) documented in this encounter Care Teams Prosthetics Lab Technician Relationship Specialty Start Date End Date Brandyn Pagan MD PCP - General Internal Medicine 08/07/15 02/02/17 Radha Spangler NP PCP - Backup PCP Internal Medicine 01/11/16 02/02/17 Unknown Pcp, Non Rmg PCP - General 02/03/17 documented as of this encounter
--- OUTSIDE RECORDS SUMMARY | 2024-07-12 11:02 | XMS_ITS | Encounter Summary ---
Author Organization [facility] Address [address] [place] [address] Care Team Providers Care Workers Compensation Claims Assistant Name Role Phone Bijal Fox LEARNING AND DEVELOPMENT OFFICER Primary Care Provider [phone] Encounter Details Date Type Department Care Team (Late st Contact Info) Description 07/01/2024 Orders Only [facility] 100 [facility] Cardiology [address] [place] [address] [address] [place] [address] Mabel Onofre NP 100 [facility] [address] [place] [address] Social History Tobacco Use Types Packs/Day Years Used Date Smoking Tobacco: Former Smokeless Tobacco: Never Comments:: Alcohol Use Standard Drinks/Week Comments Not Currently 0 (1 standard drink = 0.6 oz pur e alcohol) [facility] Utilities Answer Date Recorded In the [...] 08/01/2024 2:00 PM EDT Follow-Up [facility] Nephrology [address] [place] [address] [address] [place] [address] John Hendricks MD [address] [facility] [address] [place] [address] 01/08/2025 10:00 AM EDT Follow-Up [address] Cardiology [address] [place] [address] [address] [place] [address] Mabel Onofre NP [address] [place] [address] [address] [place] [address] documented as of this encounter Visit Diagnoses Not on filedocumented in this encounter Care Teams Workers Compensation Claims Assistant Relationship Specialty Start Date End Date Bijal Fox NP [address] [place] [address] [address] [place] [address] PCP - General Family Medicine 05/30/24 documented as of this encounter
--- OUTSIDE RECORDS SUMMARY | 2024-07-12 11:02 | XMS_ITS | Encounter Summary ---
Author Organization [facility] Address [address] [place] [address] Care Team Providers Care Unit Trust Manager Name Role Phone Brandyn Pagan MD Primary Care Provider Unavaila Radha Fink NP Unavailable Unavailable Unknown Pcp, Non Rmg Primary Care Provider Unava ilable Encounter Details Date Type Department Care Team (Late st Contact Info) Description 12/05/2016 Orders Only [facility] [address] [place] [address] Brandyn Pagan MD Social History Tobacco Use [...] Cervicalgia documented in this encounter Care Teams Unit Trust Manager Relationship Specialty Start Date End Date Brandyn Pagan MD PCP - General Internal Medicine 08/07/15 02/02/17 Radha Spangler NP PCP - Backup PCP Internal Medicine 01/11/16 02/02/17 Unknown Pcp, Non [facility] PCP - General 02/03/17 documented as of this encounter
--- OUTSIDE RECORDS SUMMARY | 2024-07-12 11:02 | XMS_ITS | Encounter Summary ---
Author Organization [facility] Address [address] [place] [address] Care Team Providers Care Power Originator Name Role Phone Bijal Fox RECREATION WORKER Primary Care Provider Reason for Visit * Consultation (Routine) - Authorized Specialty Diagnoses / Procedures Referred By Contac t Referred To Contact Family Medicine / Cardiology Diagnoses *TCM d/c 2/5 Procedures TRANSITIONAL CARE MANAGEMENT Bijal Fox NP [address] [place] [address] Phone: tel: fax: Mabel Onofre NP [address] [place] [address] Phone: tel: fax: Referral ID Status Reason Start Date Expiration Date V isits Requested Visits Authorized [id number] Authorized 07/03/2024 01/02/2026 6 6 Encounter Details Date Type Department Care Team (Late st Contact Info) Description 07/03/2024 2:30 PM EST Office Visit [address] Cardiology [address] [place] [address] Mabel Onofre NP [address] [place] [address] Diastolic heart failure, unspecified HF chronicity (HCC) [...] Follow Up Visit [email or web address] Genie Vora 1950 [id number] Impression / Recommendations 1. Diastolic heart failure, [...] card. Her insurance will be changing to [employer] in July and that will be affordable [...] follow-up. [place]. She presented to the [...] Family History of depression Allergies Prevacid [Lansoprazole] Hiyuden-Soa-Jea Reductase Inhibitors Medications Current Outpatient Medications Medication [...] possible toobtain the completed interpretation. Workstation ID: [id number] Prior Echo Procedures Transthoracic echo (TTE) Exam [...] Info) Description 08/01/2024 2:00 PM EDT Follow-Up [facility] Nephrology [address] [place] [address] [address] [place] [address] John Hendricks MD 123 [facility] [address] [place] [address] 01/08/2025 10:00 AM EDT Follow-Up [facility] 100 [facility] Cardiology [address] [place] [address] [address] [place] [address] Mabel Onofre NP [address] [place] [address] [address] [place] [address] documented as of this encounter Visit Diagnoses Diagnosis Diastolic heart failure, unspecified HF chronicity (HCC)- Primary Paroxysmal atrial fibrillation (HCC) Atrial fibrillation Pulmonary hypertension (HCC) Other chronic pulmonary heart diseases BILLIE (obstructive sleep apnea) Obstructive sleep apnea (adult) (pediatric) 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
--- OUTSIDE RECORDS SUMMARY | 2024-07-12 11:03 | XMS_ITS | Encounter Summary ---
Author Organization [facility] Address [address] [place] [address] Care Team Providers Care Prescription Clerk Lenses Name Role Phone Brandyn Pagan MD Primary Care Provider UnavailRadha Mas NP Unavailable Unavailable Unknown Pcp, Non Rmg Primary Care Provider Unava ilable Encounter Details Date Type Department Care Team (Late st Contact Info) Description 10/24/2016 Orders Only [address] [address] Concha Bustillo PA [address] [place] [address] Social History Tobacco Use Types Packs/Day Years [...] this encounter Procedures * Due to [place] iTagged law, this organization might not be sharing negative HIV tests. Procedure Name Priority Date/Time Associated Diagnosis Comments EKG-USE ONLY IN [facility]CC MED/CARDIO Routine 10/21/2016 4:41 PM EDT Acute pain of right shoulder documented in this encounter Results * Due to [place] iTagged law, this organization might not be sharing [...] shoulder documented in this encounter Care Teams Prescription Clerk Lenses Relationship Specialty Start Date End Date Brandyn Pagan MD PCP - General Internal Medicine 08/07/15 02/02/17 Radha Spangler NP PCP - Backup PCP Internal Medicine 01/11/16 02/02/17 Unknown Pcp, Non Rmg PCP - General 02/03/17 documented as of this encounter
--- OUTSIDE RECORDS SUMMARY | 2024-07-12 11:03 | XMS_ITS | Encounter Summary ---
Author Organization [facility] Address [address] [place] [address] Care Team Providers Care Environmental Laboratory Technician Name Role Phone Brandyn Pagan MD Primary Care Provider Radha Cuevas NP Unavailable Unavailable Unknown Pcp, Non [facility] Primary Care Provider Unava ilable Encounter Details Date Type Department Care Team (Late st Contact Info) Description 06/21/2016 Orders Only [facility] [address] [place] [address] Brandyn Pagan MD Social History Tobacco Use [...] this encounter Procedures * Due to [place] [employer] law, this organization might not be sharing negative HIV tests. Procedure Name Priority Date/Time Associated Diagnosis Comments URINALYSIS, DIP ONLY STAT (All results called to provider) 06/21/2016 11:17 AM EST Frequent urination CULTURE, URINE, ROUTINE Routine 06/21/2016 10:35 AM EST Frequent urination URINALYSIS, MICROSCOPIC Routine 06/21/2016 10:35 AM EST Frequent urination documented in this encounter Results * Due to [place] [employer] law, this organization might not be sharing negative HIV tests. * URINALYSIS, DIP ONLY ( SITE STAT ONLY) (06/21/2016 11:17 AM EST) COLOR (URINE) YELLOW [facility] (CLIA# [id number]) APPEARANCE (URINE) CLEAR Clear [facility] (CLIA# [id number]) SPECIFIC GRAVITY 1.020 1.001 - 1.035 [facility] (CLIA# [id number]) PH (URINE) 6.0 5.0 - 8.0 [facility] (CLIA# [id number]) PROTEIN (URINE) NEGATIVE Neg [facility] (CLIA# [id number]) GLUCOSE (URINE) NEGATIVE Neg [facility] (CLIA# [id number]) Ketones (Urine) NEGATIVE Neg [facility] (CLIA# [id number]) BILIRUBIN (URINE) NEGATIVE Neg [facility] (CLIA# [id number]) BLOOD (URINE) NEGATIVE Neg [facility] (CLIA# [id number]) Leukocyte esterase (Urine) NEGATIVE Neg [facility] (CLIA# [id number]) NITRITE (URINE) NEGATIVE Neg [facility] (CLIA# [id number]) Urine specimen (specimen) 06/21/2016 11:17 AM EST Narrative [facility] (CLIA# [id number]) - 06/21/2016 11:17 AM EST Micro and culture already ordered by provider. us Brandyn Pagan MD LAB SAME DAY RESULT Final Resul t [facility] (CLIA# [id number]) [address] [place] [address] * CULTURE, URINE, ROUTINE (06/21/2016 10:35 AM EST) Bacteria culture (Urine) SEE NOTE [facility] Comment: ??CULTURE, URINE, ROUTINE ??MICRO NUMBER: ?[id number] ??TEST STATUS: ? FINAL ??SPECIMEN SOURCE: ?? URINE ??SPECIMEN QUALITY: ??ADEQUATE ??RESULT: ?Multiple organisms present, each less than 10,000 ? CFU/mL. These organisms, commonly found on ? external and internal genitalia, are considered ? to be colonizers. No further testing performed. 06/21/2016 10:3 5 AM EST 06/21/2016 4:50 PM EST Narrative Resulting Agency Comment [id number] Brandyn Pagan MD LABORATORY Final Result Performing Organization Address [facility] de Phone Number [facility] [address] [place] [address] * URINALYSIS, MICROSCOPIC (06/21/2016 10:35 AM EST) [...] 4:50 PM EST Narrative Resulting Agency Comment [id number] Brandyn Pagan MD LAB SAME DAY RESULT Final Resul t Performing Organization Address [facility] de Phone Number [facility] [address] [place] [address] documented in this encounter Visit Diagnoses Diagnosis Frequent urination Urinary frequency documented in this encounter Care Teams Environmental Laboratory Technician Relationship Specialty Start Date End Date Brandyn Pagan MD PCP - General Internal Medicine 08/07/15 02/02/17 Radha Spangler NP PCP - Backup PCP Internal Medicine 01/11/16 02/02/17 Unknown Pcp, Non [facility] PCP - General 02/03/17 documented as of this encounter
--- OUTSIDE RECORDS SUMMARY | 2024-07-12 11:03 | XMS_ITS | Encounter Summary ---
Author Organization [facility] Address [address] [place] [address] Care Team Providers Care Tonal Regulator Name Role Phone Brandyn Pagan MD Primary Care Provider Unavaila Radha Fink NP Unavailable Unavailable Unknown Pcp, Non [facility] Primary Care Provider Unava ilable Encounter Details Date Type Department Care Team (Late st Contact Info) Description 04/08/2016 Orders Only [facility] [address] [place] [address] Radha Spangler NP Social History Tobacco Use [...] this encounter Procedures * Due to [place] [employer] law, this organization might not be sharing [...] this encounter Results * Due to [place] [employer] law, this organization might not be sharing negative HIV tests. * (ABNORMAL) CULTURE, URINE, ROUTINE (04/08/2016 12:17 PM EST) Bacteria culture (Urine) SEE NOTE(A) [facility] Comment: {CULTURE, URINE, ROUTINE {[id number]) ??CULTURE, URINE, ROUTINE ??MICRO NUMBER: ?[id number] ??TEST STATUS: ? FINAL ??SPECIMEN SOURCE: ?? [...] 7:00 PM EST Narrative Resulting Agency Comment [id number] Radha Spangler NP LABORATORY Final Result [facility] [address] [place] [address] * (ABNORMAL) URINALYSIS, COMPLETE INCLUDES DIPSTICK AND MICROSCOPIC (04/08/2016 12:17 PM EST) Color (Urine) YELLOW YELLOW [facility] Comment:{COLOR {[id number]) Appearance (Urine) CLEAR CLEAR [facility] Comment:{APPEARANCE {[id number]) Specific gravity (Urine) 1.019 1.001 - 1.035 [facility] Comment:{SPECIFIC GRAVITY {[id number]) pH (Urine) 6.5 5.0 - 8.0 [facility] Comment:{PH {[id number]) Glucose (Urine) NEGATIVE NEGATIVE [facility] Comment:{GLUCOSE {[id number]) Bilirubin (Urine) NEGATIVE NEGATIVE [facility] Comment:{BILIRUBIN {[id number]) Ketones (Urine) NEGATIVE NEGATIVE [facility] Comment:{KETONES {[id number]) Hemoglobin (Urine) NEGATIVE NEGATIVE [facility] Comment:{OCCULT BLOOD {[id number]) Protein (Urine) NEGATIVE NEGATIVE [facility] Comment:{PROTEIN {[id number]) Nitrite (Urine) NEGATIVE NEGATIVE [facility] Comment:{NITRITE {[id number]) Leukocyte esterase (Urine) TRACE(A) NEGATIVE [facility] Comment:{LEUKOCYTE ESTERASE {[id number]) WBC (Urine) 0-5 < OR = 5 /HPF [facility] Comment:{WBC {[id number]) RBC (Urine Sed) NONE SEEN < OR = 2 /HPF [facility] Comment:{RBC {[id number]) Epithelial cells.squamous (Urine sed) 0-5 < OR = 5 /HPF [facility] Comment:{SQUAMOUS EPITHELIAL CELLS {[id number]) Bacteria (Urine) NONE SEEN NONE SEEN /HPF [facility] Comment:{BACTERIA {[id number]) Hyaline casts (Urine sed) NONE SEEN NONE SEEN /LPF [facility] Comment:{HYALINE CAST {[id number]) 04/08/2016 12:1 7 PM EST 04/08/2016 7:00 PM EST Narrative Resulting Agency Comment [id number] Radha Spangler FINANCIAL ASSISTANCE SPECIALIST LAB SAME DAY RESULT Final Re sult [facility] [address] [place] [address] * HEPATIC FUNCTION PANEL (ALT,AST,ALK PH,BILI'S,TP,ALB) (04/08/2016 12:17 PM EST) Protein Total (Serum) 6.1 6.1 - 8.1 g/dL [facility] Comment:{PROTEIN, TOTAL {[id number]) Albumin 4.2 3.6 - 5.1 g/dL [facility] Comment:{ALBUMIN {[id number]) Globulin 1.9 1.9 - 3.7 g/dL (calc) [facility] Comment:{GLOBULIN {[id number]) Albumin/Globulin 2.2 1.0 - 2.5 (calc) [facility] Comment:{ALBUMIN/GLOBULIN RA LANA {[id number]) Bilirubin Total 0.3 0.2 - 1.2 mg/dL [facility] Comment:{BILIRUBIN, TOTAL {[id number]) Bilirubin Direct 0.1 < OR = 0.2 mg/dL [facility] Comment:{BILIRUBIN, DIRECT { [id number]) Bilirubin Indirect 0.2 0.2 - 1.2 mg/dL (calc) [facility] Comment:{BILIRUBIN, INDIRECT {[id number]) Alkaline phosphatase 111 33 - 130 U/L [facility] Comment:{ALKALINE PHOSPHATAS E {[id number]) AST (SGOT) 21 10 - 35 U/L [facility] Comment:{AST {[id number]) ALT (SGPT) 22 6 - 29 U/L [facility] Comment:{ALT {[id number]) 04/08/2016 12:1 7 PM EST 04/08/2016 7:00 PM EST Narrative Resulting Agency Comment [id number] Radha Spangler NP LABORATORY Final Result Performing Organization Address City/[facility]/ZIP Co de Phone Number [facility] [address] [place] [address] * CREATINE KINASE (CK), SERUM (04/08/2016 12:17 PM EST) CPK 133 29 - 143 U/L [facility] Comment:{CREATINE KINASE, TO KENZIE {[id number]) 04/08/2016 12:1 7 PM EST 04/08/2016 7:00 PM EST Narrative Resulting Agency Comment [id number] Radha Spangler NP LAB SAME DAY RESULT Final Re sult Performing Organization Address City/[facility]/ZIP Co de Phone Number [facility] [address] [place] [address] * (ABNORMAL) BASIC METABOLIC PANEL WITH (GFR) (04/08/2016 12:17 PM EST) Glucose 101(H) 65 - 99 mg/dL [facility] Comment: {GLUCOSE {[id number]) ? Fasting reference interval Urea Nitrogen Blood (BUN) 37(H) 7 - 25 mg/dL [facility] Comment:{UREA NITROGEN (BUN) {[id number]) Creatinine 1.13(H) 0.50 - 0.99 mg/dL [facility] Comment: {CREATININE {[id number]) For patients >49 years of age, the reference limit for Creatinine is approximately 13% higher for people identified as -Citizen Of [place]. GFR 51(L) > OR = 60 mL/min/1. 73m2 [facility] Comment:{eGFR NON-AFR. AMERI CAN {[id number]) GFR () 59(L) > OR = 60 mL/min/1. 73m2 [facility] Comment:{eGFR AMERIC AN {[id number]) BUN/Creatinine Ratio 33(H) 6 - 22 (calc) [facility] Comment:{BUN/CREATININE RATI O {[id number]) Sodium 139 135 - 146 mmol/L [facility] Comment:{SODIUM {[id number]) Potassium 5.1 3.5 - 5.3 mmol/L [facility] Comment:{POTASSIUM {[id number]) Chloride 105 98 - 110 mmol/L [facility] Comment:{CHLORIDE {[id number]) Carbon dioxide 25 20 - 31 mmol/L [facility] Comment:{CARBON DIOXIDE {[id number]) Calcium 9.4 8.6 - 10.4 mg/dL [facility] Comment:{CALCIUM {[id number]) 04/08/2016 12:1 7 PM EST 04/08/2016 [...] needs for GFR calculation. Resulting Agency Comment [id number] Radha Spangler NP LABORATORY Final Result [facility] [address] [place] [address] documented in this encounter Visit Diagnoses Diagnosis [...] organs documented in this encounter Care Teams Tonal Regulator Relationship Specialty Start Date End Date Brandyn Pagan MD PCP - General Internal Medicine 08/07/15 02/02/17 Radha Spangler NP PCP - Backup PCP Internal Medicine 01/11/16 02/02/17 Unknown Pcp, Non [facility] PCP - General 02/03/17 documented as of this encounter
--- OUTSIDE RECORDS SUMMARY | 2024-07-12 11:03 | XMS_ITS | Referral Summary ---
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/03/2024 Telephone [facility] Case Management Department [address] [place] [address] Mariajose Calvillo RN 07/03/2024 2:30 PM EST Office Visit [address] Cardiology [address] [place] [address] Mabel Onofre NP Diastolic heart failure, unspecified HF chronicity (HCC) (Primary Dx); Paroxysmal atrial fibrillation (HCC); Pulmonary hypertension (HCC); BILLIE (obstructive sleep apnea); Benign hypertensive heart disease without congestive heart failure 07/02/2024 10:05 AM EST Lab [facility] Draw Site Department [address] [place] [address] 07/01/2024 3:15 PM EST Office Visit [facility] Nephrology [address] [place] [address], 2nd [place] [address] John [place]ricks MD Hyperkalemia (Primary Dx); CKD stage 3a, GFR 45-59 ml/min (HCC); Chronic heart failure with preserved ejection fraction (HCC); Primary hypertension 07/01/2024 9:05 AM EST Lab [facility] Draw Site Department [address] [place] [address] Diastolic heart failure, unspecified HF chronicity (HCC) 07/01/2024 Orders Only [address] Cardiology [address] [place] [address] Mabel Onofre NP 06/15/2024 7:35 PM EST - 06/26/2024 6:09 PM EST Hospital Encounter [facility] [address] [address] Kevin Newsome MD Devineni, Praveen, MD Discharge Disposition: Home with Services (06) 06/24/[address] Cardiology [address] [place] [address] Elise Boykin [place] [facility] 06/23/2024 Lab Requisition [facility] Lab [address] [place] [address] Mj Mendenhall MD Pneumonia due to other specified infectious organisms 06/02/2024 12:57 PM EST - 06/04/2024 3:30 PM EST Emergency [facility] [address] [address] Govind Glez MD Cebula, Maria, MD Colucci, Joseph M, MD Silva, Joshua T, MD Nesanelis, David, MD Generalized weakness (Primary Dx) Discharge Disposition: [facility] (03) from Last 3 Months Allergies Active Allergy Reactions Criticality Noted Date Comments Lansoprazole Indigestion Medium Jjpmvff-Xod-Sev Reductase Inhibitors Muscle Pain Medium Per pt [...] discontinued tomorrow. Repeat BMP Diastolic CHF, acute ([facility]) 06/19/2024 Assessment & Plan (06/24/2024 1:48 [...] on admission by SpO2 88% requiring 3-4L SANITATION OFFICER. Tachypnea with RR increased to 22 RPM. She is not home-O2 dependent. -Wean supplemental O2 as tolerated, presently om room air -Taper steroids -Continue supportive therapy with nebulized bronchodilators, ICS and multiple antitussives. -Avoid increasing Tramadol in setting of COPD/asthma. Assessment & Plan (06/23/2024 4:18 PM EST): Acute Resp Failure: Evidenced on admission by SpO2 88% requiring 3-4L SANITATION OFFICER. Tachypnea with RR increased to 22 RPM. She is not home-O2 dependent. Presently weaned to 2L SANITATION OFFICER, but still coarse with rhonchus cough. Reduced IV steroids as no wheezing on exam and she appears tearful and depressed. Continue supportive therapy with nebulized bronchodilators, ICS and multiple antitussives. Avoid increasing Tramadol in setting of COPD/asthma. Assessment & Plan (06/22/2024 5:42 PM EST): Acute Resp Failure: Evidenced on admission by SpO2 88% requiring 3-4L SANITATION OFFICER. Tachypnea with RR increased to 22 RPM. She is not home-O2 dependent. Presently weaned to 2L SANITATION OFFICER, but still coarse with rhonchus cough. Reduced [...] auth. Fall precautions Ambulate with assistance A-fib ([facility]) 06/03/2024 Assessment & Plan (06/25/2024 12:39 [...] drink = 0.6 oz pur e alcohol) [facility] Utilities Answer Date Recorded In [...] Description 08/01/2024 2:00 PM EDT Follow-Up [facility] Nephrology 100 [facility] [address] [place] [address] John Hendricks MD [id number] [place] [address] 01/08/2025 10:00 AM EDT Follow-Up [facility] 100 [facility] Cardiology 100 [facility] [address] [place] [address] Mabel Onofre NP 100 [facility] [address] [place] [address] Procedures * Due to [place] state law, this organization might not be [...] to Health Maintenance Results * Due to [place] state law, this organization might not be sharing negative HIV tests. * (ABNORMAL) Microscopic Urinalysis Only (07/02/2024 9:17 AM EST) RBC, Urine 5-10(A) None Seen, 0-2 /HPF 07/02/2024 10:07 AM EST [facility] WBC, Urine 0-2 None Seen, 0-2 /HPF 07/02/2024 10:07 AM EST [facility] Squamous Epithelial Cells, Urine 0-2 /HPF 07/02/2024 10:07 AM EST [facility] Bacteria, Urine Occasional (A) None Seen /HPF 07/02/2024 10:07 AM EST [facility] Urine Urine specimen collection, clean catch / Unknown Non-Blood Collection / Unknown 07/02/2024 9:17 AM EST 07/02/2024 9:36 AM EST John [place]ricks MD LAB URINE ORDERABLES Final Resul t [facility] [address] [place] [address] [address] [place] [address], [place] [phone] * (ABNORMAL) Urinalysis W/Reflex to Microscopic (No Culture) (07/02/2024 9:17 AM EST) Color, Urine Yellow Yellow 07/02/2024 9:44 AM EST [facility] Clarity, Urine Clear Clear 07/02/2024 9:44 AM EST [facility] Specific [place], Urine 1.015 1.005 - 1.030 07/02/2024 9:44 AM EST [facility] pH, Urine 5.5 5.0 - 8.0 07/02/2024 9:44 AM EST [facility] Protein, Urine Negative Negative mg/dL 07/02/2024 9:44 AM EST [facility] Glucose, Urine Negative Negative mg/dL 07/02/2024 9:44 AM EST [facility] Ketones, Urine Negative Negative mg/dL 07/02/2024 9:44 AM EST [facility] Bilirubin, Urine Negative Negative 07/02/2024 9:44 AM EST [facility] Blood, Urine Small(A) Negative 07/02/2024 9:44 AM EST [facility] Nitrite, Urine Negative Negative 07/02/2024 9:44 AM EST [facility] Urobilinogen, Urine 0.2 0.2 - 1.0 E.U./dL 07/02/2024 9:44 AM EST [facility] Leukocyte Esterase, Urine Small(A) Negative 07/02/2024 9:44 AM EST [facility] Urine Urine specimen collection, clean catch / Unknown Non-Blood Collection / Unknown 07/02/2024 9:17 AM EST 07/02/2024 9:36 AM EST us John [place]ricks MD LAB URINE ORDERABLES Final Resul t [facility] [address] [facility] [address] [place] [address], * (ABNORMAL) SPEP (Protein Electrophoresis w/Reflex to [...] ORDERABLES Final Resul t HILARY DAVID [address] [facility] 3rd Floor, [place] [address], [place] [phone] * Hemoglobin and Hematocrit (07/02/2024 9:17 AM EST) Hemoglobin 12.0 11.7 - 15.5 g/dL 07/02/2024 9:38 AM EST [facility] Hematocrit 37.1 35.7 - 45.8 % 07/02/2024 9:38 AM EST [facility] Blood Structure of peripheral vein / Unknown Venipuncture / Unknown 07/02/2024 9:17 AM EST 07/02/2024 9:29 AM EST us John [place]ricks MD LAB BLOOD ORDERABLES Final Resul t [facility] [address] [address], [place] [phone] * Microalbumin, Random Urine with Creatinine (07/02/2024 9:17 AM EST) Creatinine, Urine 55 mg/dL 07/02/2024 2:41 PM EST [facility] Microalbumin, Urine 4 <=20 mg/L 07/02/2024 2:41 PM EST [facility] Microalb/Creat Ratio, Random Urine 7.3 1.3 - 30.0 mg/g 07/02/2024 2:41 PM EST [facility] Urine Voided urine specimen / Unknown Non-Blood Collection / Unknown 07/02/2024 9:17 AM EST 07/02/2024 9:36 AM EST us John [place]ricks MD LAB URINE ORDERABLES Final Resul t Performing Organization Address [facility] Co de Phone Number [facility] [address] [address], [place] [phone] * Protein, Random Urine with Creatinine (07/02/2024 9:17 AM EST) Protein, Urine 6 mg/dL 07/02/2024 2:41 PM EST [facility] Creatinine, Urine 55 mg/dL 07/02/2024 2:41 PM EST [facility] Protein/Creati nine Ratio 109 <200 mg/gmCr 07/02/2024 2:41 PM EST [facility] Urine Voided urine specimen / Unknown Non-Blood Collection / Unknown 07/02/2024 9:17 AM EST 07/02/2024 9:36 AM EST us John [place]ricks MD LAB URINE ORDERABLES Final Resul t Performing Organization Address [facility] Co de Phone Number [facility] [address] [address], [place] [phone] * (ABNORMAL) Vitamin D, 25-Hydroxy, Total, Immunoassay (07/02/2024 9:17 AM EST) Only the most recent of2 resultswithin the time period is included. Vitamin D 25-OH 22.50(L) 30.00 - 80.00 ng/mL 07/02/2024 11:24 AM EST [facility] Blood Structure of peripheral vein / Unknown Venipuncture / Unknown 07/02/2024 9:17 AM EST 07/02/2024 9:29 AM EST us John [place]ricks MD LAB BLOOD ORDERABLES Final Resul t Performing Organization Address City/[facility]/ZIP Co de Phone Number [facility] [address] [address], [place] [phone] * (ABNORMAL) PTH, Intact (without Calcium) (07/02/2024 9:17 AM EST) Parathyroid Hormone, Intact 226.0(H) 14.5 - 87.1 pg/mL 07/02/2024 11:19 AM EST [facility] Comment: This test was performed [...] ORDERABLES Final Resul t Performing Organization Address [facility] Co de Phone Number [facility] [address] [place] [address], [place] [phone] * Magnesium (07/02/2024 9:17 AM EST) [facility] MG 1.9 1.5 - 2.5 mg/dL 07/02/2024 10:01 AM EST [facility] Blood Structure of peripheral vein / Unknown Venipuncture / Unknown 07/02/2024 9:17 AM EST 07/02/2024 9:29 AM EST us John [place]ricks MD LAB BLOOD ORDERABLES Final Resul t Performing Organization Address [facility] Co de Phone Number [facility] [address] [place] [address], [place] [phone] * (ABNORMAL) Renal Function Panel (07/02/2024 9:17 AM EST) [facility] NA 138 136 - 145 mmol/L 07/02/2024 10:02 AM EST [facility] K 4.4 3.5 - 5.1 mmol/L 07/02/2024 10:02 AM EST [facility] Comment:ALL DELTAS REVIEWED Cl 101 98 - 109 mmol/L 07/02/2024 10:02 AM EST [facility] CO2 26 22 - 32 mmol/L 07/02/2024 10:02 AM [facility] Anion Gap 15 >=0 07/02/2024 10:02 AM EST [facility] Glucose 115(H) 60 - 99 mg/dL 07/02/2024 10:02 AM [facility] BUN 37(H) 8 - 23 mg/dL 07/02/2024 10:02 AM EST [facility] Creatinine 1.47(H) 0.50 - 1.12 mg/dL 07/02/2024 10:02 AM [facility] Calcium 8.8 8.4 - 10.4 mg/dL 07/02/2024 10:02 AM [facility] Phosphorus 3.6 2.5 - 4.5 mg/dL 07/02/2024 10:02 AM [facility] Albumin 3.8 3.5 - 5.0 g/dL 07/02/2024 10:02 AM [facility] eGFR 38(L) >=60 mL/min/1. 73m2 07/02/2024 10:02 AM EST [facility] Comment:The estimated [...] MD LAB BLOOD ORDERABLES Final Resul t [facility] [address] [address], * N-terminal ProBrain Natriuretic Peptide (07/01/2024 8:39 [...] EST 07/01/2024 9:05 AM EST Mabel Onofre SANITATION OFFICER LAB BLOOD ORDERABLES Final Result [facility] [address] [address], [place] [phone] * (ABNORMAL) Basic metabolic panel (07/01/2024 8:39 [...] EST 07/01/2024 9:04 AM EST Mabel Onofre SANITATION OFFICER LAB BLOOD ORDERABLES Final Result [facility] [address] [place] [address], * X-Ray Abdomen 1 View (06/26/2024 12:39 [...] obtain the completed interpretation. ? Workstation ID: [id number] Narrative 06/26/2024 2:05 PM EST EXAMINATION: ??XR ABDOMEN 1 VW INDICATION: RLQ abdominal pain, constipation COMPARISONS: None Resulting Agency Comment [id number] Procedure Note Calvin Katz MD - 06/26/2024 [...] possible to obtain thecompleted interpretation. Workstation ID: [id number] us Tia Oh SANITATION OFFICER IMG XR PROCEDURES Final Result * (ABNORMAL) CBC (06/26/2024 6:22 AM EST) Only the most recent of5 resultswithin the time period is included. WBC 15.0(H) 4.8 - 10.8 10*3/uL 06/26/2024 6:42 AM EST [facility] RBC 4.51 4.20 - 5.40 10*6/uL 06/26/2024 6:42 AM EST [facility] Hemoglobin 13.1 11.7 - 15.5 g/dL 06/26/2024 6:42 AM EST [facility] Hematocrit 40.5 35.7 - 45.8 % 06/26/2024 6:42 AM EST [facility] MCV 89.8 81.0 - 99.0 fL 06/26/2024 6:42 AM EST [facility] MCH 29.0 26.0 - 34.0 pg 06/26/2024 6:42 AM EST [facility] MCHC 32.3 31.0 - 36.0 g/dL 06/26/2024 6:42 AM EST [facility] RDW 13.2 12.0 - 15.0 % 06/26/2024 6:42 AM EST [facility] Platelets 220 140 - 440 10*3/uL 06/26/2024 6:42 AM EST [facility] MPV 9.4 9.4 - 12.3 fL 06/26/2024 6:42 AM EST [facility] RDW Standard Deviation 43.5 36.4 - 46.3 fL 06/26/2024 6:42 AM EST [facility] Blood Structure of peripheral vein / Unknown Venipuncture / Unknown 06/26/2024 6:22 AM EST 06/26/2024 6:39 AM EST us Olivia Arteaga NP LAB BLOOD ORDERABLES Final Result Performing Organization Address City/State/[facility] Co de Phone Number [address] [address], [place] [phone] * ECG 12 lead (06/24/2024 9:50 AM EST) Only the most recent of4 resultswithin the time period is included. Ventricular Rate EKG 73 BPM MUSE EKG Atrial Rate 73 BPM MUSE EKG CA Interval 228 ms MUSE EKG QRS Interval 128 ms MUSE EKG QT Interval 384 ms MUSE EKG QTC Interval 423 ms MUSE EKG P [employer] 65 degrees MUSE EKG R [employer] 41 degrees MUSE EKG T Wave [employer] 61 degrees MUSE EKG 06/24/2024 9:50 AM EST 06/24/2024 5:36 PM EST Impressions MUSE EKG - 06/24/2024 5:36 PM EST Sinus rhythm with 1st degree AV block with occasional premature ventricular complexes Nonspecific intraventricular block When compared with ECG of 21-JUN-2024 07:26, No significant change was found Confirmed by Stephanie Hampton ([id number]) on 06/24/2024 5:36:28 PM us Olivia Arteaga SANITATION OFFICER ECG ORDERABLES Final Resul t MUSE EKG * (ABNORMAL) Potassium (06/23/2024 10:05 AM EST) K 5.6(H) 3.5 - 5.1 mmol/L 06/23/2024 10:58 AM EST [facility] Comment:REVIEWED Blood Structure of peripheral vein / Unknown Venipuncture / Unknown 06/23/2024 10:05 AM EST 06/23/2024 10:36 AM EST Narrative [facility] - 06/23/2024 10:58 AM EST Please check heparinized potassium, TY. Sydney David SANITATION OFFICER LAB BLOOD ORDERABLES Final Result Performing Organization Address City/[facility] Co de Phone Number [facility] [address] [place] [address] [address] [place] [address], [place] [phone] * X-Ray Chest 2 Views (06/22/2024 4:27 [...] obtain the completed interpretation. ? Workstation ID: [id number] Narrative 06/24/2024 9:35 AM EST COMPARISON: ??06/18/2024 FINDINGS AND Resulting Agency Comment [id number] Procedure Note Calvin Katz MD - 06/24/2024 COMPARISON: 06/18/2024 FINDINGS AND IMPRESSION: Interval clearing of prior LLL infiltrate/atelectasis. Lungs and pleuralspaces now clear. Heart size remains normal. If this radiology report contains a blank impression section, it is anincomplete radiology report. Please contact the interpreting radiologistor applicable radiology division as soon as possible to obtain thecompleted interpretation. Workstation ID: [id number] us Sydney David SANITATION OFFICER IMG XR PROCEDURES Final Res ult * Lavender Top (06/22/2024 6:53 AM EST) Only the most recent of2 resultswithin the time period is included. Extra Tube Hold for add-ons. 06/22/2024 11:05 AM EST [facility] Comment:Auto resulted. Blood Structure of peripheral vein / Unknown 06/22/2024 6:53 AM EST 06/22/2024 6:53 AM EST us Mj Mendenhall MD LAB BLOOD ORDERABLES Final R esult Performing Organization Address City/State/[facility] Co de Phone Number [facility] [address] [place] [address], [place] [phone] * Troponin T, High Sensitivity (06/20/2024 10:19 AM EST) Only the most recent of3 resultswithin the time period is included. Troponin T High Sensitivity 14 6 - 14 ng/L 06/20/2024 11:08 AM EST [facility] Comment: Tp-Ttabtckj-O level of 52 ng/L or higher at [...] be evaluated in line with the 4th [place] Definition of AMI. Troponin baseline and serial [...] 10:19 AM EST 06/20/2024 10:31 AM EST Stpehanie Hampton MD LAB BLOOD ORDERABLES Final R esult Performing Organization Address City/[facility]/ZIP Co de Phone Number [facility] [address] [address], [place] [phone] * (ABNORMAL) Respiratory Culture (06/20/2024 7:37 AM EST) Respiratory Culture Moderate Rayna albicans(A) [place] [facility] 06/22/2024 11:29 AM EST [facility] Gram Stain Result <25 per LPF White Blood Cells Seen 06/22/2024 11:29 AM EST [facility] Gram Stain Result <10 per LPF Epithelial Cells 06/22/2024 11:29 AM EST [facility] Gram Stain Result Rare Gram Positive Cocci in pairs 06/22/2024 11:29 AM EST [facility] Sputum Sputum / Unknown Non-Blood Collection / Unknown 06/20/2024 7:37 AM EST 06/20/2024 7:54 AM EST Narrative [facility] - 06/22/2024 11:29 AM EST Many normal respiratory beena present. [facility] SANITATION OFFICER LAB MICROBIOLOGY - GENERAL ORDER RHINA Final Result Performing Organization Address City/[facility] Co de Phone Number [facility] [address] [address], [place] [phone] * Streptococcus Pneumoniae Antigen Urine (06/18/2024 6:44 PM EST) Streptococcus pneumoniae Antigen, Urine Negative Negative [facility] 06/19/2024 8:53 AM EST [facility] Comment: INTERPRETATION: Presumptive negative for [...] ORDERABLES Final R esult Performing Organization Address [facility] Co de Phone Number [facility] [address] [place] [address], [place] [phone] * Legionella Antigen, Urine (06/18/2024 6:44 PM EST) Legionella pneumophila Urine Ag Negative Negative [facility] 06/19/2024 8:53 AM EST [facility] Comment: INTERPRETATION: Presumptive negative for [...] 6:44 PM EST 06/18/2024 7:15 PM EST [facility] - 06/19/2024 8:53 AM EST This [...] ORDERABLES Final R esult Performing Organization Address [facility] Co de Phone Number [facility] [address] [place] [address], [place] [phone] * XR Chest Portable 1 View (06/18/2024 [...] obtain the completed interpretation. ? Workstation ID: [id number] Narrative 06/20/2024 10:17 AM EST EXAMINATION: XR CHEST PORTABLE 1 VIEW COMPARISON: CT chest pulmonary angiogram 06/15/2024 and other priors. FINDINGS: Lines/Tubes/Devices: None. Lungs: Redemonstrated left basilar consolidation. Pleura: No pleural effusions or pneumothorax. Heart/Mediastinum: Cardiomediastinal silhouette is similar to prior. Bones/Soft tissues: No acute osseous abnormality. Resulting Agency Comment [id number] Procedure Note Apolonia Nolen MD - 06/20/2024 [...] possible to obtain thecompleted interpretation. Workstation ID: [id number] us Tia Oh SANITATION OFFICER IMG XR PROCEDURES Final Result * (ABNORMAL) CBC Auto Differential (06/17/2024 7:03 AM EST) Only the most recent of3 resultswithin the time period is included. Pathologist [facility] WBC 11.6(H) 4.8 - 10.8 10*3/uL 06/17/2024 7:30 AM EST [facility] RBC 3.94(L) 4.20 - 5.40 10*6/uL 06/17/2024 7:30 AM [facility] Hemoglobin 11.7 11.7 - 15.5 g/dL 06/17/2024 7:30 AM [facility] Hematocrit 35.4(L) 35.7 - 45.8 % 06/17/2024 7:30 AM [facility] MCV 89.8 81.0 - 99.0 fL 06/17/2024 7:30 AM [facility] MCH 29.7 26.0 - 34.0 pg 06/17/2024 7:30 AM [facility] MCHC 33.1 31.0 - 36.0 g/dL 06/17/2024 7:30 AM [facility] RDW 12.9 12.0 - 15.0 % 06/17/2024 7:30 AM [facility] RDW Standard Deviation 42.6 36.4 - 46.3 fL 06/17/2024 7:30 AM [facility] Platelets 257 140 - 440 10*3/uL 06/17/2024 7:30 AM [facility] Comment:REV IEWED MPV 10.0 9.4 - 12.3 fL 06/17/2024 7:30 AM [facility] Neutrophil % 81.6(H) 50.0 - 75.0 % 06/17/2024 7:30 AM [facility] Immature Grans % 0.8 0.0 - 0.9 % 06/17/2024 7:30 AM [facility] Lymphocyte % 11.8(L) 20.0 - 44.0 % 06/17/2024 7:30 AM [facility] Monocyte % 5.6 0.0 - 14.0 % 06/17/2024 7:30 AM [facility] Eosinophil % 0.0 0.0 - 5.0 % 06/17/2024 7:30 AM EST [facility] Basophil % 0.2 0.0 - 2.0 % 06/17/2024 7:30 AM EST [facility] Neutrophil # 9.48(H) 1.80 - 7.70 10*3/uL 06/17/2024 7:30 AM EST [facility] Immature Grans # 0.09(H) 0.00 - 0.03 10*3/uL 06/17/2024 7:30 AM EST [facility] Lymphocyte # 1.40 1.00 - 4.75 10*3/uL 06/17/2024 7:30 AM EST [facility] Monocyte # 0.70(H) 0.00 - 0.60 10*3/uL 06/17/2024 7:30 AM EST [facility] Eosinophil # <0.03 0.00 - 0.80 10*3/uL 06/17/2024 7:30 AM EST [facility] Basophil # <0.03 0.00 - 0.20 10*3/uL 06/17/2024 7:30 AM EST [facility] nRBC % 0.0 0 - 0 /100 WBCs 06/17/2024 7:30 AM EST [facility] nRBC # <0.01 0.00 - 0.13 10*3/uL 06/17/2024 7:30 AM EST [facility] Blood Structure of peripheral vein / Unknown Venipuncture / Unknown 06/17/2024 7:03 AM EST 06/17/2024 7:22 AM EST us Mj Mendenhall MD LAB BLOOD ORDERABLES Final R esult [facility] [address] [facility] [address] [address] [place] [address], [place] [phone] * TSH (06/17/2024 7:03 AM EST) Only the most recent of2 resultswithin the time period is included. TSH 0.874 0.270 - 4.200 uIU/mL 06/17/2024 2:31 PM EST [facility] Comment: Females: 1st trimester ? 0.150-4.000 ??IU/mL 2nd trimester ?? 0.310-4.170 ?IU/mL 3rd trimester ?0.380-4.150 ?IU/mL Blood Structure of peripheral vein / Unknown Venipuncture / Unknown 06/17/2024 7:03 AM EST 06/17/2024 7:23 AM EST us Tia Oh SANITATION OFFICER LAB BLOOD ORDERABLES Final Resul t [facility] [address] [facility] [address] [address] [place] [address], [place] [phone] * (ABNORMAL) Comprehensive Metabolic Panel (06/17/2024 7:03 AM EST) Only the most recent of2 resultswithin the time period is included. NA 139 136 - 145 mmol/L 06/17/2024 8:07 AM EST [facility] K 5.1 3.5 - 5.1 mmol/L 06/17/2024 8:07 AM EST [facility] Cl 106 98 - 109 mmol/L 06/17/2024 8:07 AM EST [facility] CO2 23 22 - 32 mmol/L 06/17/2024 8:07 AM EST [facility] Anion Gap 15 >=0 06/17/2024 8:07 AM EST [facility] Glucose 111(H) 60 - 99 mg/dL 06/17/2024 8:07 AM EST [facility] Creatinine 0.99 0.50 - 1.12 mg/dL 06/17/2024 8:07 AM EST [facility] Calcium 9.4 8.4 - 10.4 mg/dL 06/17/2024 8:07 AM EST [facility] Total Protein 6.8 6.6 - 8.7 g/dL 06/17/2024 8:07 AM EST [facility] Albumin 4.0 3.5 - 5.0 g/dL 06/17/2024 8:07 AM [facility] Bilirubin, Total 0.1(L) 0.2 - 1.2 mg/dL 06/17/2024 8:07 AM EST [facility] [facility] Alkaline Phosphatase 109 40 - 129 U/L 06/17/2024 8:07 AM [facility] AST 23 0 - 33 U/L 06/17/2024 8:07 AM EST [facility] ALT 26 <=33 U/L 06/17/2024 8:07 AM [facility] BUN 27(H) 8 - 23 mg/dL 06/17/2024 8:07 AM [facility] eGFR 61 >=60 mL/min/1. 73m2 06/17/2024 8:07 AM [facility] Comment:The estimated glomer ular filtration [...] - 4.2 g/dL 06/17/2024 8:07 AM EST [facility] A/G Ratio 1.4(L) 1.5 - 3.0 06/17/2024 8:07 AM [facility] Blood Structure of peripheral vein / Unknown Venipuncture / Unknown 06/17/2024 7:03 AM EST 06/17/2024 7:23 AM EST Mj Mendenhall MD LAB BLOOD ORDERABLES Final R esult Performing Organization Address City/[facility] Co de Phone Number [facility] [address] [address], * Light Green Top (06/16/2024 7:54 AM EST) [facility] Extra Tube Hold for add-ons. 06/16/2024 12:05 PM EST [facility] Comment:Auto resulted. Blood Structure of peripheral vein / Unknown 06/16/2024 7:54 AM EST 06/16/2024 7:54 AM EST us Mj Mendenhall MD LAB BLOOD ORDERABLES Final R [facility] Performing Organization Address [facility] Co de Phone Number [facility] [address] [address], * Mycoplasma pneumoniae Antibodies, IgG/IgM (06/16/2024 7:42 AM EST) [facility] M. pneumoniae Ab, IgG <=0.90 <=0.90 06/19/2024 10:04 PM EST [facility] ([place]) Comment: ? Reference Range: ? <=0.90 [...] <770 U/mL 06/19/2024 10:04 PM EST [facility] ([place]) Comment: Reference Range: ?<770 U/ml ?Negative [...] BLOOD ORDERABLES Final R esult HILARY DAVID [address] [place] [address] 3rd Floor, [place] [address], [facility] ([place]) [address] [place] [address], [place] * CT Chest PE (06/15/2024 11:49 [...] obtain the completed interpretation. ? Workstation ID: [id number] Up-to-date CT equipment and radiation dose reduction [...] possible to obtain thecompleted interpretation. Workstation ID: [id number] Up-to-date CT equipment and radiation dose reduction techniques wereemployed. CTDIvol: .8 - 21.4 mGy. DLP: 802 mGy-cm. us Kevin Newsome MD IMG CT PROCEDURES Final Result * Blood Culture (06/15/2024 10:17 PM EST) Only the most recent of2 resultswithin the time period is included. Blood Culture No growth after 5 days 06/20/2024 11:05 PM EST [facility] Blood Structure of peripheral vein / Unknown Venipuncture / Unknown 06/15/2024 10:17 PM EST 06/15/2024 10:39 PM EST us Kevin Newsome MD LAB MICROBIOLOGY - GENERAL ORDER RHINA Final Result Performing Organization Address [facility] Co de Phone Number [facility] [address] [place] [address], [place] [phone] * Lactic Acid, Plasma (06/15/2024 10:17 PM EST) Lactic Acid 0.7 0.5 - 2.2 mmol/L 06/15/2024 11:02 PM EST [facility] Blood Structure of peripheral vein / Unknown Venipuncture / Unknown 06/15/2024 10:17 PM EST 06/15/2024 10:31 PM EST us Kevin eNwsome MD LAB BLOOD ORDERABLES Final Resul t Performing Organization Address [facility] Co de Phone Number [facility] [address] [place] [address], [place] [phone] * (ABNORMAL) Blood gas, venous (06/15/2024 10:17 PM EST) pH, Venous 7.24(LL) 7.35 - 7.45 06/16/2024 2:54 AM EST [facility] RT pCO2, Venous 57.0 mm[Hg] 06/16/2024 2:54 AM EST [facility] RT pO2, Keegan 138.0 mm[Hg] 06/16/2024 2:54 AM EST [facility] RT HCO3, Venous 22 mmol/L 06/16/2024 2:54 AM EST [facility] RT O2 Sat, Venous 97.8 % 06/16/2024 2:54 AM EST [facility] RT Base Excess, Keegan -3.6 mmol/L 06/16/2024 2:54 AM EST [facility] RT Blood Structure of peripheral vein / Unknown Venipuncture / Unknown 06/15/2024 10:17 PM EST 06/16/2024 2:52 AM EST us Kevin Newsome MD LAB BLOOD ORDERABLES Final Resul t [facility] [address] [place] [address], * COVID-19, Flu A/B & RSV RNA PCR, Symptomatic (06/15/2024 7:58 PM EST) PCR, SARS CoV-2 RNA Not Detected Not Detected [facility] 06/15/2024 8:48 PM EST [facility] Flu A RNA PCR Not Detected Not Detected [employer] 06/15/2024 8:48 PM EST [facility] Flu B RNA PCR Not Detected Not Detected [employer] 06/15/2024 8:48 PM EST [facility] RSV RNA PCR Not Detected Not Detected [facility] [employer] 06/15/2024 8:48 PM EST [facility] Comment: Limitations: This RSV test is [...] PM EST 06/15/2024 8:09 PM EST Narrative [facility] - 06/15/2024 8:48 PM EST Methodology: The Popcorn5 GeneXpert CoV-2/Flu/RSV plus assay is For Use Under an Emergency Use Authorization (EUA) Only with [employer]. The CoV-2/Flu/RSV plus assay is a [...] FLUIDS AND STOOLS O RDERABLES Final Result [facility] [address] [place] [address], * HEART & VASCULAR - SCANNED (06/15/2024) [...] Estimated 70 % EF 2D 70 % [facility] RV TISSUE DOPPLER S' 11.0 cm/s [...] mg/L FEU 06/03/2024 4:45 PM EST [facility] Comment:A D-DIMER VALUE OF < 0.50 ug/FEU/mL HAS A STRONG NEGATIVE PREDICTIVE VALUE FOR EXCLUSION OF PULMONARY EMBOLIC AND DEEP VEIN THROMBOSIS. CLINICAL CORRELATION IS INDICATED. Blood Structure of peripheral vein / Unknown Venipuncture / Unknown 06/03/2024 4:10 PM EST 06/03/2024 4:15 PM EST Calvin Fontenot MD LAB BLOOD ORDERABLES Final R esult [facility] [address] [place] [address], * [place] Lower Extremity Venous Left (06/03/2024 [...] obtain the completed interpretation. ? Workstation ID: [id number] Narrative 06/03/2024 3:48 PM EST EXAMINATION: US [...] identified behind the knee Resulting Agency Comment [id number] Procedure Note Sonny Valdivia MD - 06/03/2024 [...] possible to obtain thecompleted interpretation. Workstation ID: [id number] Calvin Fontenot MD IM US PROCEDURES Final Resu lt * Rapid COVID-19, FLU A, FLU B & RSV RNA PCR, Symptomatic (ED ONLY) (06/03/2024 3:02 PM EST) Pathologist [facility] PCR, SARS CoV-2 RNA Not Detected Not Detected [facility] 06/03/2024 3:48 PM EST [facility] Flu A RNA PCR Not Detected Not Detected [employer] 06/03/2024 3:48 PM EST [facility] Flu B RNA PCR Not Detected Not Detected [employer] 06/03/2024 3:48 PM EST [facility] RSV RNA PCR Not Detected Not Detected [employer] 06/03/2024 3:48 PM EST [facility] Comment: Limitations: This RSV test is [...] 3:02 PM EST 06/03/2024 3:06 PM EST [facility] - 06/03/2024 3:48 PM EST Methodology: The CepAndelaid GeneXpert CoV-2/Flu/RSV plus assay is For Use Under an Emergency Use Authorization (EUA) Only with [employer]. The CoV-2/Flu/RSV plus assay is a [...] AND STOOLS O RDERABLES Final Result [facility] [address] [place] [address], * CT Lumbar Spine WO Contrast (06/02/2024 [...] obtain the completed interpretation. ? Workstation ID: [id number] Up-to-date CT equipment and radiation dose reduction techniques were employed. CTDIvol: 22.2 - 54.3 mGy. DLP: 3111 mGy-cm. ??The following accession numbers are related to this dose report [id number]: [id number] Narrative 06/02/2024 7:00 PM EST COMPARISON: None available. FINDINGS: There is no evidence of acute compression fracture. ??Alignment is maintained. ?? 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 ??Severe degenerative changes are seen most severe at L3-4. ??Paraspinous soft tissues are unremarkable. 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 Workstation ID: [id number] Up-to-date CT equipment and radiation dose reduction techniques wereemployed. CTDIvol: 22.2 - 54.3 mGy. DLP: 3111 mGy-cm. The followingaccession numbers are related to this dose report [id number]: [id number] Govind Glez MD IM CT PROCEDURES Final [...] obtain the completed interpretation. ? Workstation ID: [id number] Up-to-date CT equipment and radiation dose reduction techniques were employed. CTDIvol: 22.2 - 54.3 mGy. DLP: 3111 mGy-cm. ??The following accession numbers are related to this dose report [id number]: [id number] Up-to-date CT equipment and radiation dose reduction techniques were employed. CTDIvol: 22.2 - 54.3 mGy. DLP: 3111 mGy-cm. ??The following accession numbers are related to this dose report [id number]: [id number] Narrative 06/02/2024 6:31 PM EST COMPARISON: 04/28/2016. [...] are within normal limits. Resulting Agency Comment [id number] Procedure Note Luis Mayfield MD - 06/02/2024 [...] possible to obtain thecompleted interpretation. Workstation ID: [id number] Up-to-date CT equipment and radiation dose reduction techniques wereemployed. CTDIvol: 22.2 - 54.3 mGy. DLP: 3111 mGy-cm. The followingaccession numbers are related to this dose report [id number]: [id number] Up-to-date CT equipment and radiation dose reduction techniques wereemployed. CTDIvol: 22.2 - 54.3 mGy. DLP: 3111 mGy-cm. The followingaccession numbers are related to this dose report [id number]: [id number] Govind Glez MD IM CT PROCEDURES Final [...] obtain the completed interpretation. ? Workstation ID: [id number] Up-to-date CT equipment and radiation dose reduction techniques were employed. CTDIvol: 22.2 - 54.3 mGy. DLP: 3111 mGy-cm. ??The following accession numbers are related to this dose report [id number]: [id number] Up-to-date CT equipment and radiation dose reduction techniques were employed. CTDIvol: 22.2 - 54.3 mGy. DLP: 3111 mGy-cm. ??The following accession numbers are related to this dose report [id number]: [id number] Narrative 06/02/2024 6:31 PM EST COMPARISON: 04/28/2016. [...] are within normal limits. Resulting Agency Comment [id number] Procedure Note Luis Mayfield MD - 06/02/2024 [...] possible to obtain thecompleted interpretation. Workstation ID: [id number] Up-to-date CT equipment and radiation dose reduction techniques wereemployed. CTDIvol: 22.2 - 54.3 mGy. DLP: 3111 mGy-cm. The followingaccession numbers are related to this dose report [id number]: [id number] Up-to-date CT equipment and radiation dose reduction techniques wereemployed. CTDIvol: 22.2 - 54.3 mGy. DLP: 3111 mGy-cm. The followingaccession numbers are related to this dose report [id number]: [id number] Govind Glez MD IMG CT PROCEDURES Final [...] were monitored continuously. The CFQ-160L Olympusserial # [id number] was introduced through the anus and advanced [...] Most Recently Relevant to Health Maintenance Insurance [facility] y [address] [facility] [employer] Advance Directives Documents on File Type Date Recorded Patient Medical Concierge Expl anation Advance Directive 08/06/2013 12:00 AM [...] 1:19 AM 06/04/2024 5:36 PM Care Teams Mattress Maker Relationship Specialty Start Date End Date Bijal Fox, SANITATION OFFICER [address] [place] [address] PCP - General Family Medicine 05/30/24
--- OUTSIDE RECORDS SUMMARY | 2024-07-12 11:03 | XMS_ITS | Encounter Summary ---
Author Organization [facility] Address [address] [place] [address] Care Team Providers Care Land Leases And Rentals Manager Name Role Phone Brandyn Pagan MD Primary Care Provider UnavailRadha Mas NP Unavailable Unavailable Unknown Pcp, Non [facility] Primary Care Provider Unava ilable Encounter Details Date Type Department Care Team (Late st Contact Info) Description 03/09/2016 Orders Only [facility] [address] [place] [address] Brandyn Pagan MD Social History Tobacco Use [...] this encounter Procedures * Due to [place] law, this organization might not be sharing negative HIV tests. Procedure Name Priority Date/Time Associated Diagnosis Comments CLOSTRIDIUM DIFFICILE TOXIN/GDH WITH REFLEX TO PCR Routine 03/09/2016 12:41 PM EDT Diarrhea, unspecified type documented in this encounter Results * Due to [place] law, this organization might not be sharing negative HIV tests. * CLOSTRIDIUM DIFFICILE TOXIN/GDH WITH REFLEX TO PCR (03/09/2016 12:41 PM EDT) Clostridium Difficile (Stool) SEE NOTE [facility] Comment: {CLOSTRIDIUM DIFFICILE TOXIN/GDH W/REFL TO PCR {[id number]) ??CLOSTRIDIUM DIFFICILE TOXIN/GDH W/REFL TO PCR ??MICRO NUMBER: ?[id number] ??TEST STATUS: ? FINAL ??SPECIMEN SOURCE: ?? STOOL ??SPECIMEN QUALITY: ??ADEQUATE ??GDH ANTIGEN: ? Not Detected ??TOXIN A AND B: ? Not Detected ??COMMENT: ? No toxigenic C. difficile detected 03/09/2016 12:4 1 PM EDT 03/09/2016 7:22 PM EDT Narrative Resulting Agency Comment [id number] Brandyn Pagan MD LABORATORY Final Result [facility] [address] [place] [address] documented in this encounter Visit Diagnoses Diagnosis Diarrhea, unspecified type documented in this encounter Care Teams Land Leases And Rentals Manager Relationship Specialty Start Date End Date Brandyn Pagan MD PCP - General Internal Medicine 08/07/15 02/02/17 Radha Spangler NP PCP - Backup PCP Internal Medicine 01/11/16 02/02/17 Unknown Pcp, Non [facility] PCP - General 02/03/17 documented as of this encounter
--- OUTSIDE RECORDS SUMMARY | 2024-07-12 11:03 | XMS_ITS | Encounter Summary ---
Author Organization [facility] Address [address] [place] [address] Care Team Providers Care Cook Chill Technician Name Role Phone Unknown Pcp, Non [facility] Primary Care Provider Unava ilable Encounter Details Date Type Department Care Team (Late st Contact Info) Description 02/03/2017 Orders Only [facility] [address] [place] [id number] Unknown Pcp, Non Rmg Social History Tobacco [...] on filedocumented in this encounter Care Teams Cook Chill Technician Relationship Specialty Start Date End Date Unknown Pcp, Non [facility]mg PCP - General 02/03/17 documented as of this encounter
--- OUTSIDE RECORDS SUMMARY | 2024-07-12 11:03 | XMS_ITS | Encounter Summary ---
Author Organization [facility] Address [address] [place] [address] Care Team Providers Care Engineered Wood Designer Name Role Phone Brandyn Pagan MD Primary Care Provider Unavaila Radha Fink NP Unavailable Unavailable Unknown Pcp, Non [facility]mg Primary Care Provider Unava ilable Encounter Details Date Type Department Care Team (Late st Contact Info) Description 01/28/2016 Orders Only [facility] [address] [place] [address] Radha Spangler, MEY Social History Tobacco Use [...] this encounter Procedures * Due to [place] law, this organization might not be sharing negative HIV tests. Procedure Name Priority Date/Time Associated Diagnosis Comments BASIC METABOLIC PANEL WITH (GFR) Routine 01/28/2016 11:41 AM EDT Elevated serum creatinine documented in this encounter Results * Due to [place] law, this organization might not be sharing negative HIV tests. * (ABNORMAL) BASIC METABOLIC PANEL WITH (GFR) (01/28/2016 11:41 AM EDT) Glucose 95 65 - 99 mg/dL [facility] Comment: {GLUCOSE {[id number]) ? Fasting reference interval Urea Nitrogen Blood (BUN) 28(H) 7 - 25 mg/dL [facility] Comment:{UREA NITROGEN (BUN) {[id number]) Creatinine 1.12(H) 0.50 - 0.99 mg/dL [facility] Comment: {CREATININE {[id number]) For patients >49 years of age, the reference limit for Creatinine is approximately 13% higher for people identified as -Citizen Of [place]. GFR 52(L) > OR = 60 mL/min/1. 73m2 [facility] Comment:{eGFR NON-AFR. AMERI CAN {[id number]) GFR () 60 > OR = 60 mL/min/1. 73m2 [facility] Comment:{eGFR AMERIC AN {[id number]) BUN/Creatinine Ratio 25(H) 6 - 22 (calc) [facility] Comment:{BUN/CREATININE RATI O {[id number]) Sodium 140 135 - 146 mmol/L [facility] Comment:{SODIUM {[id number]) Potassium 4.8 3.5 - 5.3 mmol/L [facility] Comment:{POTASSIUM {[id number]) Chloride 106 98 - 110 mmol/L [facility] Comment:{CHLORIDE {[id number]) Carbon dioxide 30 20 - 31 mmol/L [facility] Comment:{CARBON DIOXIDE {[id number]) Calcium 9.5 8.6 - 10.4 mg/dL [facility] Comment:{CALCIUM {[id number]) 01/28/2016 11:4 1 AM EDT 01/28/2016 [...] needs for GFR calculation. Resulting Agency Comment [id number] Radha Spangler NP LABORATORY Final Result Performing Organization Address City/State/[facility] Co de Phone Number [facility] [address] [place] [address] documented in this encounter Visit Diagnoses Diagnosis Elevated serum creatinine Other nonspecific findings on examination of blood documented in this encounter Care Teams Engineered Wood Designer Relationship Specialty Start Date End Date Brandyn Pagan MD PCP - General Internal Medicine 08/07/15 02/02/17 Rdaha Spangler NP PCP - Backup PCP Internal Medicine 01/11/16 02/02/17 Unknown Pcp, Non Rmg PCP - General 02/03/17 documented as of this encounter
--- OUTSIDE RECORDS SUMMARY | 2024-07-12 11:03 | XMS_ITS | Encounter Summary ---
Author Organization [facility] Address [address] [place] [address] Care Team Providers Care Cooling Machine Operator Name Role Phone Brandyn Pagan MD Primary Care Provider Unavaila Radha Fink NP Unavailable Unavailable Unknown Pcp, Non [facility] Primary Care Provider Unava ilable Encounter Details Date Type Department Care Team (Late st Contact Info) Description 02/19/2016 Orders Only [facility] [address] [place] [address] Brandyn Pagan MD Social History Tobacco Use [...] this encounter Procedures * Due to [place] [employer] law, this organization might not be sharing [...] this encounter Results * Due to [place] [employer] law, this organization might not be sharing negative HIV tests. * (ABNORMAL) URINALYSIS, DIP ONLY ( SITE STAT ONLY) (02/19/2016 2:13 PM EDT) COLOR (URINE) Yellow [facility] (CLIA# [id number]) APPEARANCE (URINE) Cloudy [facility] (CLIA# [id number]) SPECIFIC GRAVITY 1.010 1.001 - 1.035 [facility] (CLIA# [id number]) PH (URINE) 7.5 5.0 - 8.0 [facility] (CLIA# [id number]) PROTEIN (URINE) Trace(A) Neg [facility] (CLIA# [id number]) GLUCOSE (URINE) Negative Neg [facility] (CLIA# [id number]) Ketones (Urine) Negative Neg [facility] (CLIA# [id number]) BILIRUBIN (URINE) Negative Neg [facility] (CLIA# [id number]) BLOOD (URINE) Negative Neg [facility] (CLIA# [id number]) Leukocyte esterase (Urine) 2+(A) [facility] (CLIA# [id number]) NITRITE (URINE) Negative Neg [facility] (CLIA# [id number]) Urine specimen obtained by clean catch procedure (specimen) 02/19/2016 2:13 PM EDT Narrative [facility] (CLIA# [id number]) - 02/19/2016 2:14 PM EDT Micro and culture already ordered per provider. us Brandyn Pagan MD LAB SAME DAY RESULT Final Resul t [facility] (CLIA# [id number]) [address] [place] [address] * (ABNORMAL) CULTURE, URINE, ROUTINE (02/19/2016 2:00 PM EDT) Bacteria culture (Urine) SEE NOTE(A) [facility] Comment: {CULTURE, URINE, ROUTINE {[id number]) ??CULTURE, URINE, ROUTINE ??MICRO NUMBER: ?[id number] ??TEST STATUS: ? FINAL ??SPECIMEN SOURCE: ?? URINE ??SPECIMEN QUALITY: ??ADEQUATE ??RESULT: ?50,000-100,000 CFU/mL of Escherichia coli ? Greater than 100,000 CFU/mL of ? Staphylococcus saprophyticus ? The Clinical Laboratory Standards [place] (M100 ? guidelines), does not advise routine [...] 7:35 PM EDT Narrative Resulting Agency Comment [id number] Brandyn Pagan MD LABORATORY Final Result [facility] [address] [place] [address] * (ABNORMAL) URINALYSIS, MICROSCOPIC (02/19/2016 2:00 PM EDT) WBC (Urine) 20-40(A) < OR = 5 /HPF [facility] Comment:{WBC {[id number]) RBC (Urine Sed) NONE SEEN < OR = 2 /HPF [facility] Comment:{RBC {[id number]) Epithelial cells.squamous (Urine sed) NONE SEEN < OR = 5 /HPF [facility] Comment:{SQUAMOUS EPITHELIAL CELLS {[id number]) Bacteria (Urine) FEW(A) NONE SEEN /HPF [facility] Comment:{BACTERIA {[id number]) Hyaline casts (Urine sed) NONE SEEN NONE SEEN /LPF [facility] Comment:{HYALINE CAST {[id number]) 02/19/2016 2:00 PM EDT 02/19/2016 7:35 PM EDT Narrative Resulting Agency Comment [id number] us Brandyn Pagan MD LAB SAME DAY RESULT Final Resul t Performing Organization Address City/State/[facility] Co de Phone Number [facility] [address] [place] [address] documented in this encounter Visit Diagnoses Diagnosis Urinary tract infection, site unspecified documented in this encounter Care Teams Cooling Machine Operator Relationship Specialty Start Date End Date Brandyn Pagan MD PCP - General Internal Medicine 08/07/15 02/02/17 Radha Spangler NP PCP - Backup PCP Internal Medicine 01/11/16 02/02/17 Unknown Pcp, Non [facility]mg PCP - General 02/03/17 documented as of this encounter
--- OUTSIDE RECORDS SUMMARY | 2024-07-12 11:03 | XMS_ITS | Clinical Summary ---
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 Tachypnea with RR increased to 22 RPM. She is not home-O2 dependent. -Wean supplemental O2 as tolerated, presently om room air -Taper steroids -Continue supportive therapy with nebulized bronchodilators, ICS and multiple antitussives. -Avoid increasing Tramadol in setting of COPD/asthma. Assessment & Plan (06/23/2024 4:18 PM EST): Acute Resp Failure: Evidenced on admission by SpO2 88% requiring 3-4L STAFFING AND SCHEDULING COORDINATOR. Tachypnea with RR increased to 22 RPM. She is not home-O2 dependent. Presently weaned to 2L STAFFING AND SCHEDULING COORDINATOR, but still coarse with rhonchus cough. Reduced IV steroids as no wheezing on exam and she appears tearful and depressed. Continue supportive therapy with nebulized bronchodilators, ICS and multiple antitussives. Avoid increasing Tramadol in setting of COPD/asthma. Assessment & Plan (06/22/2024 5:42 PM EST): Acute Resp Failure: Evidenced on admission by SpO2 88% requiring 3-4L STAFFING AND SCHEDULING COORDINATOR. Tachypnea with RR increased to 22 RPM. She is not home-O2 dependent. Presently weaned to 2L STAFFING AND SCHEDULING COORDINATOR, but still coarse with rhonchus cough. Reduced [...] auth. 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 2:30 PM EST Office Visit [address] Cardiology [address] [place] [phone] Mabel Onofre NP Diastolic heart failure, unspecified HF chronicity (HCC) (Primary Dx); Paroxysmal atrial fibrillation (HCC); Pulmonary hypertension (HCC); BILLIE (obstructive sleep apnea); Benign hypertensive heart disease without congestive heart failure 07/03/2024 Telephone [facility] Case Management Department [address] [place] [phone] Mariajose Calvillo RN 07/02/2024 10:05 AM EST Lab [facility] Site Department [address] [place] [address] 07/01/2024 3:15 PM EST Office Visit [facility] Neph[facility] [address] [place] [address], [address] [place] [address] John Hendricks MD Hyperkalemia (Primary Dx); CKD stage 3a, GFR 45-59 ml/min (HCC); Chronic heart failure with preserved ejection fraction (HCC); Primary hypertension 07/01/2024 9:05 AM EST Lab [facility] Site Department [address] [place] [phone] Diastolic heart failure, unspecified HF chronicity (HCC) 07/01/2024 Orders Only [address] Cardiology [address] [place] [phone] Mabel Onofre NP 06/24/[address] Cardiology [address] [place] [address] [phone] [place] [facility] 06/23/2024 Lab Requisition [facility] [address] [place] [address] Mj Mendenhall MD Pneumonia due to other specified infectious organisms 06/15/2024 7:35 PM EST - 06/26/2024 6:09 PM EST Hospital Encounter [facility] [address] [address] Kevin Newsome MD Devineni, Praveen, MD Discharge Disposition: Home with Services (06) 06/02/2024 12:57 PM EST - 06/04/2024 3:30 PM EST Emergency [facility] [address] [address] Govind Glez MD Cebula, Maria, MD Colucci, Joseph M, MD Silva, Joshua T, MD Nesanelis, David, MD Generalized weakness (Primary Dx) Discharge Disposition: [facility] (03) from Last 3 Months Immunizations [...] Upcoming Encounters Date Type Department Care Team ([facility] Contact Info) Description 08/01/2024 2:00 PM EDT Follow-Up [facility] Nephrology [address] [place] [address] [address] [place] [address] John Hendricks MD [address] [place] [phone] 01/08/2025 10:00 AM EDT Follow-Up [address] Cardiology [address] [place] [address] Mabel Onofre NP [address] [place] [phone] Health Maintenance Due Date Last Done Comments [...] complete this topic Procedures * Due to [place] state law, this organization might not be [...] to Health Maintenance Results * Due to [place] state law, this organization might not be sharing negative HIV tests. * (ABNORMAL) Microscopic Urinalysis Only (07/02/2024 9:17 AM EST) RBC, Urine 5-10(A) None Seen, 0-2 /HPF 07/02/2024 10:07 AM EST [facility] WBC, Urine 0-2 None Seen, 0-2 /HPF 07/02/2024 10:07 AM EST [facility] Squamous Epithelial Cells, Urine 0-2 /HPF 07/02/2024 10:07 AM EST [facility] Bacteria, Urine Occasional (A) None Seen /HPF 07/02/2024 10:07 AM EST [facility] Urine Urine specimen collection, clean catch / Unknown Non-Blood Collection / Unknown 07/02/2024 9:17 AM EST 07/02/2024 9:36 AM EST John Hendricks MD LAB URINE ORDERABLES Final Resul t [facility] [address] [place] [address] [address] [place] [address], * (ABNORMAL) Urinalysis W/Reflex to Microscopic (No Culture) (07/02/2024 9:17 AM EST) Color, Urine Yellow Yellow 07/02/2024 9:44 AM EST [facility] Clarity, Urine Clear Clear 07/02/2024 9:44 AM EST [facility] Specific Edwards, Urine 1.015 1.005 - 1.030 07/02/2024 9:44 AM EST [facility] pH, Urine 5.5 5.0 - 8.0 07/02/2024 9:44 AM EST [facility] Protein, Urine Negative Negative mg/dL 07/02/2024 9:44 AM EST [facility] Glucose, Urine Negative Negative mg/dL 07/02/2024 9:44 AM EST [facility] Ketones, Urine Negative Negative mg/dL 07/02/2024 9:44 AM EST [facility] Bilirubin, Urine Negative Negative 07/02/2024 9:44 AM EST [facility] Blood, Urine Small(A) Negative 07/02/2024 9:44 AM EST [facility] Nitrite, Urine Negative Negative 07/02/2024 9:44 AM EST [facility] Urobilinogen, Urine 0.2 0.2 - 1.0 E.U./dL 07/02/2024 9:44 AM EST [facility] Leukocyte Esterase, Urine Small(A) Negative 07/02/2024 9:44 AM EST [facility] Urine Urine specimen collection, clean catch / Unknown Non-Blood Collection / Unknown 07/02/2024 9:17 AM EST 07/02/2024 9:36 AM EST John Hendricks MD LAB URINE ORDERABLES Final Resul t [facility] [address] [place] [address] [address] [place] [address], [place] [phone] * (ABNORMAL) SPEP (Protein Electrophoresis w/Reflex to [...] - 07/04/2024 8:59 AM EST [facility] Received Date:[id number] John Hendricks MD LAB BLOOD ORDERABLES Final Resul t [facility]IL[facility] [address] [place] [address] 3rd Floor, [place] [address], [place] [phone] * Hemoglobin and Hematocrit (07/02/2024 9:17 AM EST) Hemoglobin 12.0 11.7 - 15.5 g/dL 07/02/2024 9:38 AM EST [facility] Hematocrit 37.1 35.7 - 45.8 % 07/02/2024 9:38 AM EST [facility] Blood Structure of peripheral vein / Unknown Venipuncture / Unknown 07/02/2024 9:17 AM EST 07/02/2024 9:29 AM EST John Hendricks MD LAB BLOOD ORDERABLES Final Resul t [facility] [address] [place] [address] [address] [place] [address], [place] [phone] * Microalbumin, Random Urine with Creatinine (07/02/2024 9:17 AM EST) Creatinine, Urine 55 mg/dL 07/02/2024 2:41 PM EST [facility] Microalbumin, Urine 4 <=20 mg/L 07/02/2024 2:41 PM EST [facility] Microalb/Creat Ratio, Random Urine 7.3 1.3 - 30.0 mg/g 07/02/2024 2:41 PM EST [facility] Urine Voided urine specimen / Unknown Non-Blood Collection / Unknown 07/02/2024 9:17 AM EST 07/02/2024 9:36 AM EST John Hendricks MD LAB URINE ORDERABLES Final Resul t Performing Organization Address [facility] Co de Phone Number [facility] [address] [address], [place] [phone] * Protein, Random Urine with Creatinine (07/02/2024 9:17 AM EST) Protein, Urine 6 mg/dL 07/02/2024 2:41 PM EST [facility] Creatinine, Urine 55 mg/dL 07/02/2024 2:41 PM EST [facility] Protein/Creati nine Ratio 109 <200 mg/gmCr 07/02/2024 2:41 PM EST [facility] Urine Voided urine specimen / Unknown Non-Blood Collection / Unknown 07/02/2024 9:17 AM EST 07/02/2024 9:36 AM EST us John Hendricks MD LAB URINE ORDERABLES Final Resul t Performing Organization Address [facility] Co de Phone Number [facility] [address] [address], [place] [phone] * (ABNORMAL) Vitamin D, 25-Hydroxy, Total, Immunoassay (07/02/2024 9:17 AM EST) Only the most recent of2 resultswithin the time period is included. Vitamin D 25-OH 22.50(L) 30.00 - 80.00 ng/mL 07/02/2024 11:24 AM EST [facility] Blood Structure of peripheral vein / Unknown Venipuncture / Unknown 07/02/2024 9:17 AM EST 07/02/2024 9:29 AM EST us John Hendricks MD LAB BLOOD ORDERABLES Final Resul t Performing Organization Address [facility] Co de Phone Number [facility] [address] [address], [place] [phone] * (ABNORMAL) PTH, Intact (without Calcium) (07/02/2024 9:17 AM EST) Parathyroid Hormone, Intact 226.0(H) 14.5 - 87.1 pg/mL 07/02/2024 11:19 AM EST [facility] Comment: This test was performed using the chemiluminescent immunoassay (CLIA) intended for the quantitative determination of intact human parathyroid hormone method on the [employer] LIAISON. Values obtained from different assay methods cannot be used interchangeably. Assay results should be utilized in conjunction with other clinical and laboratory data Blood Structure of peripheral vein / Unknown Venipuncture / Unknown 07/02/2024 9:17 AM EST 07/02/2024 9:29 AM EST us John Hendricks MD LAB BLOOD ORDERABLES Final Resul t Performing Organization Address [facility]/ZIP Co de Phone Number [facility] [address] [place] [address], [place] [phone] * Magnesium (07/02/2024 9:17 AM EST) Pathologist [facility] MG 1.9 1.5 - 2.5 mg/dL 07/02/2024 10:01 AM EST [facility] Blood Structure of peripheral vein / Unknown Venipuncture / Unknown 07/02/2024 9:17 AM EST 07/02/2024 9:29 AM EST us John Hendricks MD LAB BLOOD ORDERABLES Final Resul t [facility] [address] [address], [place] [phone] * (ABNORMAL) Renal Function Panel (07/02/2024 9:17 AM EST) Pathologist [facility] NA 138 136 - 145 mmol/L 07/02/2024 10:02 AM EST [facility] K 4.4 3.5 - 5.1 mmol/L 07/02/2024 10:02 AM EST [facility] Comment:ALL DELTAS REVIEWED Cl 101 98 - 109 mmol/L 07/02/2024 10:02 AM EST [facility] CO2 26 22 - 32 mmol/L 07/02/2024 10:02 AM [facility] Anion Gap 15 >=0 07/02/2024 10:02 AM EST [facility] Glucose 115(H) 60 - 99 mg/dL 07/02/2024 10:02 AM [facility] BUN 37(H) 8 - 23 mg/dL 07/02/2024 10:02 AM [facility] Creatinine 1.47(H) 0.50 - 1.12 mg/dL 07/02/2024 10:02 AM [facility] Calcium 8.8 8.4 - 10.4 mg/dL 07/02/2024 10:02 AM [facility] Phosphorus 3.6 2.5 - 4.5 mg/dL 07/02/2024 10:02 AM [facility] Albumin 3.8 3.5 - 5.0 g/dL 07/02/2024 10:02 AM [facility] eGFR 38(L) >=60 mL/min/1. 73m2 07/02/2024 10:02 AM [facility] Comment:The estimated glomer ular filtration [...] ORDERABLES Final Resul t Performing Organization Address City/[facility]/ZIP Co de Phone Number [facility] [address] [address], * N-terminal ProBrain Natriuretic Peptide (07/01/2024 8:39 AM EST) Only the most recent of5 resultswithin the time period is included. Pro-B-Type Natriuretic Peptide 288 <=900 pg/mL 07/01/2024 9:39 AM EST [facility] Comment: RULE IN CHF >/= [...] BLOOD ORDERABLES Final Result Performing Organization Address City/[facility]/ZIP Co de Phone Number [facility] [address] [address], * (ABNORMAL) Basic metabolic panel (07/01/2024 8:39 AM EST) Only the most recent of11 resultswithin the time period is included. NA 140 136 - 145 mmol/L 07/01/2024 9:36 AM EST [facility] K 5.3(H) 3.5 - 5.1 mmol/L 07/01/2024 9:36 AM EST [facility] Cl 102 98 - 109 mmol/L 07/01/2024 9:36 AM EST [facility] CO2 29 22 - 32 mmol/L 07/01/2024 9:36 AM EST [facility] BUN 34(H) 8 - 23 mg/dL 07/01/2024 9:36 AM EST [facility] Creatinine 1.27(H) 0.50 - 1.12 mg/dL 07/01/2024 9:36 AM EST [facility] Glucose 113(H) 60 - 99 mg/dL 07/01/2024 9:36 AM EST [facility] Calcium 8.9 8.4 - 10.4 mg/dL 07/01/2024 9:36 AM EST [facility] Anion Gap 14 >=0 07/01/2024 9:36 AM EST [facility] eGFR 45(L) >=60 mL/min/1. 73m2 07/01/2024 9:36 AM EST [facility] Comment:The estimated glomer ular filtration [...] EST 07/01/2024 9:04 AM EST Mabel Onofre STAFFING AND SCHEDULING COORDINATOR LAB BLOOD ORDERABLES Final Result [facility] [address] [facility] [address] [place] [address], * X-Ray Abdomen 1 View (06/26/2024 12:39 [...] obtain the completed interpretation. ? Workstation ID: [id number] Narrative 06/26/2024 2:05 PM EST EXAMINATION: ??XR ABDOMEN 1 VW INDICATION: RLQ abdominal pain, constipation COMPARISONS: None Resulting Agency Comment [id number] Procedure Note Calvin Katz MD - 06/26/2024 [...] possible to obtain thecompleted interpretation. Workstation ID: [id number] us Tia Oh STAFFING AND SCHEDULING COORDINATOR IMG XR PROCEDURES Final Result * (ABNORMAL) CBC (06/26/2024 6:22 AM EST) Only the most recent of5 resultswithin the time period is included. WBC 15.0(H) 4.8 - 10.8 10*3/uL 06/26/2024 6:42 AM EST [facility] RBC 4.51 4.20 - 5.40 10*6/uL 06/26/2024 6:42 AM EST [facility] Hemoglobin 13.1 11.7 - 15.5 g/dL 06/26/2024 6:42 AM EST [facility] Hematocrit 40.5 35.7 - 45.8 % 06/26/2024 6:42 AM EST [facility] MCV 89.8 81.0 - 99.0 fL 06/26/2024 6:42 AM EST [facility] MCH 29.0 26.0 - 34.0 pg 06/26/2024 6:42 AM EST [facility] MCHC 32.3 31.0 - 36.0 g/dL 06/26/2024 6:42 AM EST [facility] RDW 13.2 12.0 - 15.0 % 06/26/2024 6:42 AM EST [facility] Platelets 220 140 - 440 10*3/uL 06/26/2024 6:42 AM EST [facility] MPV 9.4 9.4 - 12.3 fL 06/26/2024 6:42 AM EST [facility] RDW Standard Deviation 43.5 36.4 - 46.3 fL 06/26/2024 6:42 AM EST [facility] Blood Structure of peripheral vein / Unknown Venipuncture / Unknown 06/26/2024 6:22 AM EST 06/26/2024 6:39 AM EST Olivia Arteaga STAFFING AND SCHEDULING COORDINATOR LAB BLOOD ORDERABLES Final Result [facility] [address] [place] [address] [address] [place] [address], [place] [phone] * ECG 12 lead (06/24/2024 9:50 AM EST) Only the most recent of4 resultswithin the time period is included. Ventricular Rate EKG 73 BPM MUSE EKG Atrial Rate 73 BPM MUSE EKG WA Interval 228 ms MUSE EKG QRS Interval 128 ms MUSE EKG QT Interval 384 ms MUSE EKG QTC Interval 423 ms MUSE EKG P [place] 65 degrees MUSE EKG R [place] 41 degrees MUSE EKG T Wave [place] 61 degrees MUSE EKG 06/24/2024 9:50 AM EST 06/24/2024 5:36 PM EST Impressions MUSE EKG - 06/24/2024 5:36 PM EST Sinus rhythm with 1st degree AV block with occasional premature ventricular complexes Nonspecific intraventricular block When compared with ECG of 21-JUN-2024 07:26, No significant change was found Confirmed by Stephanie Hampton ([id number]) on 06/24/2024 5:36:28 PM us Olivia Arteaga STAFFING AND SCHEDULING COORDINATOR ECG ORDERABLES Final Resul t MUSE EKG * (ABNORMAL) Potassium (06/23/2024 10:05 AM EST) K 5.6(H) 3.5 - 5.1 mmol/L 06/23/2024 10:58 AM EST [facility] Comment:REVIEWED Blood Structure of peripheral vein / Unknown Venipuncture / Unknown 06/23/2024 10:05 AM EST 06/23/2024 10:36 AM EST Narrative [facility] - 06/23/2024 10:58 AM EST Please check heparinized potassium, TY. Sydney David STAFFING AND SCHEDULING COORDINATOR LAB BLOOD ORDERABLES Final Result Performing Organization Address City/[facility] Co de Phone Number [facility] [address] [place] [address] [address] [address], [place] [phone] * X-Ray Chest 2 Views (06/22/2024 4:27 [...] obtain the completed interpretation. ? Workstation ID: [id number] Narrative 06/24/2024 9:35 AM EST COMPARISON: ??06/18/2024 FINDINGS AND Resulting Agency Comment [id number] Procedure Note Calvin Katz MD - 06/24/2024 COMPARISON: 06/18/2024 FINDINGS AND IMPRESSION: Interval clearing of prior LLL infiltrate/atelectasis. Lungs and pleuralspaces now clear. Heart size remains normal. If this radiology report contains a blank impression section, it is anincomplete radiology report. Please contact the interpreting radiologistor applicable radiology division as soon as possible to obtain thecompleted interpretation. Workstation ID: [id number] us Sydney David STAFFING AND SCHEDULING COORDINATOR IMG XR PROCEDURES Final Res ult * Lavender Top (06/22/2024 6:53 AM EST) Only the most recent of2 resultswithin the time period is included. Extra Tube Hold for add-ons. 06/22/2024 11:05 AM EST [facility] Comment:Auto resulted. Blood Structure of peripheral vein / Unknown 06/22/2024 6:53 AM EST 06/22/2024 6:53 AM EST us Mj Mendenhall MD LAB BLOOD ORDERABLES Final R esult [facility] [address] [facility] [address] [place] [address], [place] [phone] * Troponin T, High Sensitivity (06/20/2024 10:19 AM EST) Only the most recent of3 resultswithin the time period is included. Troponin T High Sensitivity 14 6 - 14 ng/L 06/20/2024 11:08 AM EST [facility] Comment: Il-Oriwbede-T level of 52 ng/L or higher at [...] be evaluated in line with the 4th [place] Definition of AMI. Troponin baseline and serial [...] ORDERABLES Final R esult Performing Organization Address City/[facility]/ZIP Co de Phone Number [facility] [address] [address], * (ABNORMAL) Respiratory Culture (06/20/2024 7:37 AM EST) Respiratory Culture Moderate Rayna albicans(A) [facility] 06/22/2024 11:29 AM EST [facility] Gram Stain Result <25 per LPF White Blood Cells Seen 06/22/2024 11:29 AM EST [facility] Gram Stain Result <10 per LPF Epithelial Cells 06/22/2024 11:29 AM EST [facility] Gram Stain Result Rare Gram Positive Cocci in pairs 06/22/2024 11:29 AM EST [facility] Sputum Sputum / Unknown Non-Blood Collection / Unknown 06/20/2024 7:37 AM EST 06/20/2024 7:54 AM EST Narrative [facility] - 06/22/2024 11:29 AM EST Many normal respiratory beena present. Rosanna Oh STAFFING AND SCHEDULING COORDINATOR LAB MICROBIOLOGY - GENERAL ORDER RHINA Final Result Performing Organization Address City/[facility]/ZIP Co de Phone Number [facility] [address] [address], [place] [phone] * Streptococcus Pneumoniae Antigen Urine (06/18/2024 6:44 PM EST) Streptococcus pneumoniae Antigen, Urine Negative Negative [facility] 06/19/2024 8:53 AM EST [facility] Comment: INTERPRETATION: Presumptive negative for [...] ORDERABLES Final R esult Performing Organization Address City/[facility]/ZIP Co de Phone Number [facility] [address] [facility] [address] [place] [address], * Legionella Antigen, Urine (06/18/2024 6:44 PM EST) Legionella pneumophila Urine Ag Negative Negative [facility] 06/19/2024 8:53 AM EST [facility] Comment: INTERPRETATION: Presumptive negative for [...] PM EST 06/18/2024 7:15 PM EST Narrative [facility] - 06/19/2024 8:53 AM EST [...] [facility] [address] [place] [address], [place] [phone] * XR Chest Portable 1 View (06/18/2024 [...] obtain the completed interpretation. ? Workstation ID: [id number] Narrative 06/20/2024 10:17 AM EST EXAMINATION: XR CHEST PORTABLE 1 VIEW COMPARISON: CT chest pulmonary angiogram 06/15/2024 and other priors. FINDINGS: Lines/Tubes/Devices: None. Lungs: Redemonstrated left basilar consolidation. Pleura: No pleural effusions or pneumothorax. Heart/Mediastinum: Cardiomediastinal silhouette is similar to prior. Bones/Soft tissues: No acute osseous abnormality. Resulting Agency Comment [id number] Procedure Note Apolonia Nolen MD - 06/20/2024 [...] possible to obtain thecompleted interpretation. Workstation ID: [id number] us Tia Oh STAFFING AND SCHEDULING COORDINATOR IMG XR PROCEDURES Final Result * (ABNORMAL) CBC Auto Differential (06/17/2024 7:03 AM EST) Only the most recent of3 resultswithin the time period is included. WBC 11.6(H) 4.8 - 10.8 10*3/uL 06/17/2024 7:30 AM EST [facility] RBC 3.94(L) 4.20 - 5.40 10*6/uL 06/17/2024 7:30 AM EST [facility] Hemoglobin 11.7 11.7 - 15.5 g/dL 06/17/2024 7:30 AM EST [facility] Hematocrit 35.4(L) 35.7 - 45.8 % 06/17/2024 7:30 AM [facility] MCV 89.8 81.0 - 99.0 fL 06/17/2024 7:30 AM [facility] MCH 29.7 26.0 - 34.0 pg 06/17/2024 7:30 AM [facility] MCHC 33.1 31.0 - 36.0 g/dL 06/17/2024 7:30 AM [facility] RDW 12.9 12.0 - 15.0 % 06/17/2024 7:30 AM [facility] RDW Standard Deviation 42.6 36.4 - 46.3 fL 06/17/2024 7:30 AM [facility] Platelets 257 140 - 440 10*3/uL 06/17/2024 7:30 AM [facility] Comment:REV IEWED MPV 10.0 9.4 - 12.3 fL 06/17/2024 7:30 AM EST [facility] Neutrophil % 81.6(H) 50.0 - 75.0 % 06/17/2024 7:30 AM EST [facility] Immature Grans % 0.8 0.0 - 0.9 % 06/17/2024 7:30 AM [facility] Lymphocyte % 11.8(L) 20.0 - 44.0 % 06/17/2024 7:30 AM EST [facility] Monocyte % 5.6 0.0 - 14.0 % 06/17/2024 7:30 AM EST [facility] Eosinophil % 0.0 0.0 - 5.0 % 06/17/2024 7:30 AM EST [facility] Basophil % 0.2 0.0 - 2.0 % 06/17/2024 7:30 AM EST [facility] Neutrophil # 9.48(H) 1.80 - 7.70 10*3/uL 06/17/2024 7:30 AM EST [facility] Immature Grans # 0.09(H) 0.00 - 0.03 10*3/uL 06/17/2024 7:30 AM EST [facility] Lymphocyte # 1.40 1.00 - 4.75 10*3/uL 06/17/2024 7:30 AM EST [facility] Monocyte # 0.70(H) 0.00 - 0.60 10*3/uL 06/17/2024 7:30 AM EST [facility] Eosinophil # <0.03 0.00 - 0.80 10*3/uL 06/17/2024 7:30 AM EST [facility] Basophil # <0.03 0.00 - 0.20 10*3/uL 06/17/2024 7:30 AM EST [facility] nRBC % 0.0 0 - 0 /100 WBCs 06/17/2024 7:30 AM EST [facility] nRBC # <0.01 0.00 - 0.13 10*3/uL 06/17/2024 7:30 AM EST [facility] Blood Structure of peripheral vein / Unknown Venipuncture / Unknown 06/17/2024 7:03 AM EST 06/17/2024 7:22 AM EST us Mj Mendenhall MD LAB BLOOD ORDERABLES Final R esult [facility] [address] [facility] [address] [place] [address], * TSH (06/17/2024 7:03 AM EST) Only the most recent of2 resultswithin the time period is included. TSH 0.874 0.270 - 4.200 uIU/mL 06/17/2024 2:31 PM EST [facility] Comment: Females: 1st trimester ? 0.150-4.000 ??IU/mL 2nd trimester ?? 0.310-4.170 ?IU/mL 3rd trimester ?0.380-4.150 ?IU/mL Blood Structure of peripheral vein / Unknown Venipuncture / Unknown 06/17/2024 7:03 AM EST 06/17/2024 7:23 AM EST us Tia Oh STAFFING AND SCHEDULING COORDINATOR LAB BLOOD ORDERABLES Final Resul t [facility] [address] [place] [address] [address] [place] [address], * (ABNORMAL) Comprehensive Metabolic Panel (06/17/2024 7:03 AM EST) Only the most recent of2 resultswithin the time period is included. NA 139 136 - 145 mmol/L 06/17/2024 8:07 AM EST [facility] K 5.1 3.5 - 5.1 mmol/L 06/17/2024 8:07 AM EST [facility] Cl 106 98 - 109 mmol/L 06/17/2024 8:07 AM EST [facility] CO2 23 22 - 32 mmol/L 06/17/2024 8:07 AM EST [facility] Anion Gap 15 >=0 06/17/2024 8:07 AM EST [facility] Glucose 111(H) 60 - 99 mg/dL 06/17/2024 8:07 AM EST [facility] Creatinine 0.99 0.50 - 1.12 mg/dL 06/17/2024 8:07 AM EST [facility] Calcium 9.4 8.4 - 10.4 mg/dL 06/17/2024 8:07 AM EST [facility] Total Protein 6.8 6.6 - 8.7 g/dL 06/17/2024 8:07 AM EST [facility] Albumin 4.0 3.5 - 5.0 g/dL 06/17/2024 8:07 AM [facility] Bilirubin, Total 0.1(L) 0.2 - 1.2 mg/dL 06/17/2024 8:07 AM EST [facility] Alkaline Phosphatase 109 40 - 129 U/L 06/17/2024 8:07 AM [facility] AST 23 0 - 33 U/L 06/17/2024 8:07 AM EST [facility] ALT 26 <=33 U/L 06/17/2024 8:07 AM [facility] BUN 27(H) 8 - 23 mg/dL 06/17/2024 8:07 AM EST [facility] eGFR 61 >=60 mL/min/1. 73m2 06/17/2024 8:07 AM [facility] Comment:The estimated glomer ular filtration [...] - 4.2 g/dL 06/17/2024 8:07 AM EST [facility] A/G Ratio 1.4(L) 1.5 - 3.0 06/17/2024 8:07 AM EST [facility] Blood Structure of peripheral vein / Unknown Venipuncture / Unknown 06/17/2024 7:03 AM EST 06/17/2024 7:23 AM EST us Mj Mendenhall MD LAB BLOOD ORDERABLES Final R esult Performing Organization Address [facility] Co de Phone Number [facility] [address] [address], * Light Green Top (06/16/2024 7:54 AM EST) Pathologist [facility] Extra Tube Hold for add-ons. 06/16/2024 12:05 PM EST [facility] Comment:Auto resulted. Blood Structure of peripheral vein / Unknown 06/16/2024 7:54 AM EST 06/16/2024 7:54 AM EST Mj Mendenhall MD LAB BLOOD ORDERABLES Final R esult Performing Organization Address [facility] Co de Phone Number [facility] [address] [address], * Mycoplasma pneumoniae Antibodies, IgG/IgM (06/16/2024 7:42 AM EST) Pathologist [facility] M. pneumoniae Ab, IgG <=0.90 <=0.90 06/19/2024 10:04 PM EST [facility] JUAN HARVEY) Comment: ? Reference Range: ? [...] <770 U/mL 06/19/2024 10:04 PM EST [facility]) Comment: Reference Range: ?<770 U/ml ?Negative [...] BLOOD ORDERABLES Final R esult HILARY DAVID [address] [place] [address] 3rd Floor, [place] [address], [facility] [employer]) [address] [place] [address], [place] * CT Chest PE (06/15/2024 11:49 [...] obtain the completed interpretation. ? Workstation ID: [id number] Up-to-date CT equipment and radiation dose reduction [...] possible to obtain thecompleted interpretation. Workstation ID: [id number] Up-to-date CT equipment and radiation dose reduction techniques wereemployed. CTDIvol: .8 - 21.4 mGy. DLP: 802 mGy-cm. us Kevin Newsome MD IMG CT PROCEDURES Final Result * Blood Culture (06/15/2024 10:17 PM EST) Only the most recent of2 resultswithin the time period is included. Pathologist [facility] Blood Culture No growth after 5 days 06/20/2024 11:05 PM EST [facility] Blood Structure of peripheral vein / Unknown Venipuncture / Unknown 06/15/2024 10:17 PM EST 06/15/2024 10:39 PM EST us Kevin Newsome MD LAB MICROBIOLOGY - GENERAL ORDER RHINA Final Result Performing Organization Address [facility] Phone Number [address] [address], [place] [phone] * Lactic Acid, Plasma (06/15/2024 10:17 PM EST) Pathologist [facility] Lactic Acid 0.7 0.5 - 2.2 mmol/L 06/15/2024 11:02 PM EST [facility] Blood Structure of peripheral vein / Unknown Venipuncture / Unknown 06/15/2024 10:17 PM EST 06/15/2024 10:31 PM EST us Kevin Newsome MD LAB BLOOD ORDERABLES Final Resul t Performing Organization Address [facility] Co de Phone Number [address] [address], [place] [phone] * (ABNORMAL) Blood gas, venous (06/15/2024 10:17 PM EST) pH, Venous 7.24(LL) 7.35 - 7.45 06/16/2024 2:54 AM EST [facility] RT pCO2, Venous 57.0 mm[Hg] 06/16/2024 2:54 AM EST [facility] RT pO2, Keegan 138.0 mm[Hg] 06/16/2024 2:54 AM EST [facility] RT HCO3, Venous 22 mmol/L 06/16/2024 2:54 AM EST [facility] RT O2 Sat, Venous 97.8 % 06/16/2024 2:54 AM EST [facility] RT Base Excess, Keegan -3.6 mmol/L 06/16/2024 2:54 AM EST [facility] RT Blood Structure of peripheral vein / Unknown Venipuncture / Unknown 06/15/2024 10:17 PM EST 06/16/2024 2:52 AM EST us Kevin Newsome MD LAB BLOOD ORDERABLES Final Resul t [facility] RT [address] [place] [address], * COVID-19, Flu A/B & RSV RNA PCR, Symptomatic (06/15/2024 7:58 PM EST) PCR, SARS CoV-2 RNA Not Detected Not Detected [facility] [employer] 06/15/2024 8:48 PM EST [facility] Flu A RNA PCR Not Detected Not Detected [facility] 06/15/2024 8:48 PM EST [facility] Flu B RNA PCR Not Detected Not Detected [employer] 06/15/2024 8:48 PM EST [facility] RSV RNA PCR Not Detected Not Detected [employer] 06/15/2024 8:48 PM EST [facility] Comment: Limitations: This RSV [...] PM EST 06/15/2024 8:09 PM EST Narrative [facility] - 06/15/2024 8:48 PM EST Methodology: The [employer] GeneXpert CoV-2/Flu/RSV plus assay is For Use Under an Emergency Use Authorization (EUA) Only with [employer]. The CoV-2/Flu/RSV plus assay is a [...] FLUIDS AND STOOLS O RDERABLES Final Result [facility] [address] [facility] [facility] [address] [place] [address], [place] [phone] * HEART & VASCULAR - SCANNED (06/15/2024) [...] 70 % EF 2D 70 % [facility] RV TISSUE DOPPLER S' 11.0 [...] (06/03/2024 4:10 PM EST) Pathologist [facility] D-Dimer, Quantitative 0.54(HH) 0.10 - 0.49 mg/L FEU 06/03/2024 4:45 PM EST [facility] Comment:A D-DIMER VALUE OF < 0.50 ug/FEU/mL HAS A STRONG NEGATIVE PREDICTIVE VALUE FOR EXCLUSION OF PULMONARY EMBOLIC AND DEEP VEIN THROMBOSIS. CLINICAL CORRELATION IS INDICATED. Blood Structure of peripheral vein / Unknown Venipuncture / Unknown 06/03/2024 4:10 PM EST 06/03/2024 4:15 PM EST us Calvin Fontenot MD LAB BLOOD ORDERABLES Final R esult [facility] [address] [place] [address], * [place] Lower Extremity Venous Left (06/03/2024 [...] obtain the completed interpretation. ? Workstation ID: [id number] Narrative 06/03/2024 3:48 PM EST EXAMINATION: US [...] identified behind the knee Resulting Agency Comment [id number] Procedure Note Sonny Valdivia MD - 06/03/2024 [...] possible to obtain thecompleted interpretation. Workstation ID: [id number] Calvin Fontenot MD [facility] US PROCEDURES Final Resu lt * Rapid COVID-19, FLU A, FLU B & RSV RNA PCR, Symptomatic (ED ONLY) (06/03/2024 3:02 PM EST) Pathologist [facility] PCR, SARS CoV-2 RNA Not Detected Not Detected [facility] [employer] 06/03/2024 3:48 PM EST [facility] Flu A RNA PCR Not Detected Not Detected [employer] 06/03/2024 3:48 PM EST [facility] Flu B RNA PCR Not Detected Not Detected [employer] 06/03/2024 3:48 PM EST [facility] RSV RNA PCR Not Detected Not Detected [facility] [employer] 06/03/2024 3:48 PM EST [facility] Comment: Limitations: This RSV test is [...] 3:02 PM EST 06/03/2024 3:06 PM EST [facility] - 06/03/2024 3:48 PM EST Methodology: The [employer] GeneXpert CoV-2/Flu/RSV plus assay is For Use Under an Emergency Use Authorization (EUA) Only with [employer]. The CoV-2/Flu/RSV plus assay is a [...] FLUIDS AND STOOLS O RDERABLES Final Result [facility] [address] [facility] [facility] [address] [place] [address], [place] [phone] * CT Lumbar Spine WO Contrast (06/02/2024 [...] obtain the completed interpretation. ? Workstation ID: [id number] Up-to-date CT equipment and radiation dose reduction techniques were employed. CTDIvol: 22.2 - 54.3 mGy. DLP: 3111 mGy-cm. ??The following accession numbers are related to this dose report [id number]: [id number] Narrative 06/02/2024 7:00 PM EST COMPARISON: None available. FINDINGS: There is no evidence of acute compression fracture. ??Alignment is maintained. ?? 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 ??Severe degenerative changes are seen most severe at L3-4. ??Paraspinous soft tissues are unremarkable. ??Incidental 1.5 cm splenic artery aneurysm Resulting Agency Comment [id number] Procedure Note Luis Mayfield MD - 06/02/2024 [...] possible to obtain thecompleted interpretation. Workstation ID: [id number] Up-to-date CT equipment and radiation dose reduction techniques wereemployed. CTDIvol: 22.2 - 54.3 mGy. DLP: 3111 mGy-cm. The followingaccession numbers are related to this dose report [id number]: [id number] Govind Glez MD IMG CT PROCEDURES Final [...] obtain the completed interpretation. ? Workstation ID: [id number] Up-to-date CT equipment and radiation dose reduction techniques were employed. CTDIvol: 22.2 - 54.3 mGy. DLP: 3111 mGy-cm. ??The following accession numbers are related to this dose report [id number]: [id number] Up-to-date CT equipment and radiation dose reduction techniques were employed. CTDIvol: 22.2 - 54.3 mGy. DLP: 3111 mGy-cm. ??The following accession numbers are related to this dose report [id number]: [id number] Narrative 06/02/2024 6:31 PM EST COMPARISON: 04/28/2016. [...] are within normal limits. Resulting Agency Comment [id number] Procedure Note Luis Mayfield MD - 06/02/2024 [...] possible to obtain thecompleted interpretation. Workstation ID: [id number] Up-to-date CT equipment and radiation dose reduction techniques wereemployed. CTDIvol: 22.2 - 54.3 mGy. DLP: 3111 mGy-cm. The followingaccession numbers are related to this dose report [id number]: [id number] Up-to-date CT equipment and radiation dose reduction techniques wereemployed. CTDIvol: 22.2 - 54.3 mGy. DLP: 3111 mGy-cm. The followingaccession numbers are related to this dose report [id number]: [id number] Govind Glez MD IM CT PROCEDURES Final [...] obtain the completed interpretation. ? Workstation ID: [id number] Up-to-date CT equipment and radiation dose reduction techniques were employed. CTDIvol: 22.2 - 54.3 mGy. DLP: 3111 mGy-cm. ??The following accession numbers are related to this dose report [id number]: [id number] Up-to-date CT equipment and radiation dose reduction techniques were employed. CTDIvol: 22.2 - 54.3 mGy. DLP: 3111 mGy-cm. ??The following accession numbers are related to this dose report [id number]: [id number] Narrative 06/02/2024 6:31 PM EST COMPARISON: 04/28/2016. [...] are within normal limits. Resulting Agency Comment [id number] Procedure Note Luis Mayfield MD - 06/02/2024 [...] possible to obtain thecompleted interpretation. Workstation ID: [id number] Up-to-date CT equipment and radiation dose reduction techniques wereemployed. CTDIvol: 22.2 - 54.3 mGy. DLP: 3111 mGy-cm. The followingaccession numbers are related to this dose report [id number]: [id number] Up-to-date CT equipment and radiation dose reduction techniques wereemployed. CTDIvol: 22.2 - 54.3 mGy. DLP: 3111 mGy-cm. The followingaccession numbers are related to this dose report [id number]: [id number] Govind Glez MD IM CT PROCEDURES Final [...] were monitored continuously. The CFQ-160L [employer] # [id number] was introduced through the anus and advanced [...] Most Recently Relevant to Health Maintenance Insurance [facility] AARP Advance Directives Documents on File Type Date Recorded Patient Product Managent Intern Expl anation Advance Directive 08/06/2013 12:00 AM [...] 1:19 AM 06/04/2024 5:36 PM Care Teams Dairy Store Manager Relationship Specialty Start Date End Date Bijal Fox, STAFFING AND SCHEDULING COORDINATOR [address] [place] [address] PCP - General Family Medicine 05/30/24
--- OUTSIDE RECORDS SUMMARY | 2024-07-12 11:03 | XMS_ITS | Encounter Summary ---
Author Organization [facility] Address [address] [place] [address] Care Team Providers Care Bedspring Assembler Name Role Phone Brandyn Pagan MD Primary Care Provider Radha Cuevas NP Unavailable Unavailable Unknown Pcp, Non [facility] Primary Care Provider Unava ilable Reason for Referral * CONSULT AND TREATMENT (Routine) - Closed Specialty Diagnoses / Procedures Referred By Contadam t Referred To Contact Chiropractic Diagnoses Back pain, unspecified back location, unspecified back pain laterality, unspecified chronicity Brandyn Pagan MD [place], [facility] [address] [place] [address] Phone: tel: fax: Referral ID Status Reason Start Date Expiration Date V isits Requested Visits Authorized [id number] Closed Chiropractor 01/27/2017 05/21/2017 1 1 Encounter Details Date Type Department Care Team (Late st Contact Info) Description 01/27/2017 Orders Only [facility] [address] [place] [id number] Brandyn Pagan MD Social History Tobacco Use [...] chronicity documented in this encounter Care Teams Bedspring Assembler Relationship Specialty Start Date End Date Brandyn Pagan MD PCP - General Internal Medicine 08/07/15 02/02/17 Radha Spangler NP PCP - Backup PCP Internal Medicine 01/11/16 02/02/17 Unknown Pcp, Non [facility] PCP - General 02/03/17 documented as of this encounter
--- OUTSIDE RECORDS SUMMARY | 2024-07-12 11:03 | XMS_ITS | Encounter Summary ---
Author Organization [facility] Address [address] [place] [address] Care Team Providers Care Parole Or Probation Officer Name Role Phone Brandyn Pagan MD Primary Care Provider Unavaila Radha Fink NP Unavailable Unavailable Unknown Pcp, Non [facility] Primary Care Provider Unava ilable Encounter Details Date Type Department Care Team (Late st Contact Info) Description 06/09/2016 Orders Only [facility] [address] [place] [address] Radha Spangler NP Social History Tobacco Use [...] this encounter Procedures * Due to [place] state law, this [...] in this encounter Results * Due to [facility] law, this organization might not be sharing [...] approximately 13% higher for people identified as -Micronesian. GFR 42(L) > OR = 60 mL/min/1. [...] needs for GFR calculation. Resulting Agency Comment [id number] us Radha Spangler NP LABORATORY Final Result Performing Organization Address [facility] Co de Phone Number [facility] [address] [place] [address] * ALANINE AMINOTRANSFERASE (ALT), SERUM (06/09/2016 11:23 AM EST) ALT (SGPT) 25 6 - 29 U/L [facility] 06/09/2016 11:2 3 AM EST 06/09/2016 4:58 PM EST Narrative Resulting Agency Comment [id number] Radha Spangler NP LAB SAME DAY RESULT Final Re sult Performing Organization Address [facility] de Phone Number [facility] [address] [place] [address] * (ABNORMAL) LIPID PANEL WITH REFLEX TO [...] 4:58 PM EST Narrative Resulting Agency Comment [id number] us Radha Spangler NP LABORATORY Final Result Performing Organization Address [facility] Co de Phone Number [facility] [address] [place] [address] documented in this encounter Visit Diagnoses Diagnosis Hyperlipidemia, unspecified hyperlipidemia type Essential hypertension with goal blood pressure less than 140/90 documented in this encounter Care Teams Parole Or Probation Officer Relationship Specialty Start Date End Date Brandyn Pagan MD PCP - General Internal Medicine 08/07/15 02/02/17 Radha Spangler NP PCP - Backup PCP Internal Medicine 01/11/16 02/02/17 Unknown Pcp, Non [facility] PCP - General 02/03/17 documented as of this encounter
--- OUTSIDE RECORDS SUMMARY | 2024-07-12 11:03 | XMS_ITS | Encounter Summary ---
Author Organization [facility] Address [address] [place] [address] Care Team Providers Care Finishing Area Operator Name Role Phone Brandyn Pagan MD Primary Care Provider Radha Cuevas NP Unavailable Unavailable Unknown Pcp, Non [facility] Primary Care Provider Unava ilable Encounter Details Date Type Department Care Team (Late st Contact Info) Description 01/12/2017 Orders Only [facility] [address] [place] [address] Brandyn Pagan MD Social History Tobacco Use [...] of this encounter Procedures * Due to [place] [employer] law, this organization might not be sharing negative HIV tests. Procedure Name Priority Date/Time Associated Diagnosis Comments URINALYSIS, DIP ONLY STAT (All results called to provider) 01/12/2017 12:59 PM EDT Frequency of urination CULTURE, URINE, ROUTINE Routine 01/12/2017 12:22 PM EDT Frequency of urination URINALYSIS, MICROSCOPIC Routine 01/12/2017 12:22 PM EDT Frequency of urination documented in this encounter Results * Due to [place] [employer] law, this organization might not be sharing negative HIV tests. * URINALYSIS, DIP ONLY ( SITE STAT ONLY) (01/12/2017 12:59 PM EDT) COLOR (URINE) YELLOW [facility] (CLIA# [id number]) APPEARANCE (URINE) CLEAR Clear [facility] (CLIA# [id number]) SPECIFIC GRAVITY 1.005 1.001 - 1.035 [facility] (CLIA# [id number]) PH (URINE) 7.0 5.0 - 8.0 [facility] (CLIA# [id number]) PROTEIN (URINE) NEG Neg [facility] (CLIA# [id number]) GLUCOSE (URINE) NEG Neg [facility] (CLIA# [id number]) Ketones (Urine) NEG Neg [facility] (CLIA# [id number]) BILIRUBIN (URINE) NEG Neg [facility] (CLIA# [id number]) BLOOD (URINE) NEG Neg [facility] (CLIA# [id number]) Leukocyte esterase (Urine) NEG Neg [facility] (CLIA# [id number]) NITRITE (URINE) NEG Neg [facility] (CLIA# [id number]) Urine specimen obtained by clean catch procedure (specimen) 01/12/2017 12:59 PM EDT Narrative [facility] (CLIA# [id number]) - 01/12/2017 1:00 PM EDT Micro and culture already ordered per provider. Brandyn Pagan MD LAB SAME DAY RESULT Final Resul t Performing Organization Address [facility] de Phone Number [facility] (CLIA# [id number]) [address] [place] [address] * CULTURE, URINE, ROUTINE (01/12/2017 12:22 PM EDT) Bacteria culture (Urine) SEE NOTE [facility] Comment: ??CULTURE, URINE, ROUTINE ??MICRO NUMBER: ?[id number] ??TEST STATUS: ? FINAL ??SPECIMEN SOURCE: ?? URINE ??SPECIMEN QUALITY: ??ADEQUATE ??RESULT: ?No Growth 01/12/2017 12:2 2 PM EDT 01/12/2017 10:29 PM EDT Narrative Resulting Agency Comment [id number] us Brandyn Pagan MD LABORATORY Final Result Performing Organization Address City/[facility]/ZIP Co de Phone Number [facility] [address] [place] [address] * URINALYSIS, MICROSCOPIC (01/12/2017 12:22 PM EDT) [...] 10:29 PM EDT Narrative Resulting Agency Comment [id number] us Brandyn Pagan MD LAB SAME DAY RESULT Final Resul t Performing Organization Address City/State/[facility] Co de Phone Number [facility] [address] [place] [address] documented in this encounter Visit Diagnoses Diagnosis Frequency of urination Urinary frequency documented in this encounter Care Teams Finishing Area Operator Relationship Specialty Start Date End Date Brandyn Pagan MD PCP - General Internal Medicine 08/07/15 02/02/17 Radha Spangler NP PCP - Backup PCP Internal Medicine 01/11/16 02/02/17 Unknown Pcp, Non [facility] PCP - General 02/03/17 documented as of this encounter
--- OUTSIDE RECORDS SUMMARY | 2024-07-12 11:03 | XMS_ITS | Encounter Summary ---
Author Organization [facility] Address [address] [place] [address] Care Team Providers Care Toe Lining Closer Name Role Phone Unknown Pcp, Non [facility] [...] Date Expiration Date Visits Requested Visits Authorized [id number] Canceled Service Not Available at Clinic 02/03/2017 1 1 Encounter Details Date Type Department Care Team (Late st Contact Info) Description 02/03/2017 Orders Only [facility] [address] [place] [address] Brandyn Pagan MD Social History Tobacco Use [...] chronicity documented in this encounter Care Teams Toe Lining Closer Relationship Specialty Start Date End Date Unknown Pcp, Non [facility] PCP - General 02/03/17 documented as of this encounter
--- OUTSIDE RECORDS SUMMARY | 2024-07-12 11:03 | XMS_ITS | Clinical Summary ---
Author Organization [facility] [employer] [facility] [employer] Address [address] [place] [address] Care Team Providers Care Skelp Processor Name Role Phone Pcp, No Primary Care Provider [phone] Social History Tobacco Use Types Packs/Day Years [...] Adults 18 yrs or above (or HM Modifier)([facility]) 1969 Hepatitis C Virus Infection in Adolescents and Adults: Screening (or Modifier) ([facility]) 1969 SDOH Screening Reminder: Corry ivy for all adults ([facility]) 1969 Tobacco Smoking Cessation: i n Adults excluding Women: Behavioral and Pharmacotherapy Interventions ([facility]) 1969 DTaP/Tdap/Td Vaccines ([facility]) (1 - Tdap) 1970 Colorectal Cancer Screening 45 -75 Yrs (or HM Modifier ) 1996 Colorectal Cancer: FLEXIBLE SIGMOIDOSCOPY Screening every 5 yrs 1996 Colorectal Cancer: Fecal Imm unochemical Test (FIT) Annually [facility] 1996 Colorectal Cancer: High-sens itivity gFOBT Screening Annually [facility] 1996 Colorectal Cancer: Stool Col oguard Screening every 3 yrs 1996 Colorectal Cancer:CT Colonography Screening every 5 yr s 1996 Lipid Screening: Every 5 yrs for Women aged 45+ (or HM Modifier) ([facility]) 1997 Breast Cancer: Screening Corry ually age 50-74 yrs (or HM Modifier)([facility]) 2001 Zoster/Shingles Vaccine Seri es Screening: Adults aged 18+ yrs (or HM Modifiers)([facility]) (1 of 2) 2001 Osteoporosis Screening to Pr event Fractures: Women aged 65 years+ ([facility]) 2016 Pneumococcal Vaccination Scr eening: Patients 65+ yrs of age ([facility]) (1 of 1 - PCV) 2016 Flu Vaccination: Ages 65+: Y early High Dose Recommended (or Modifier)([facility]) 12/21/2023 COVID-19 Vaccine Screening: Initial Series and Booster Status ([facility]) ( - 2023-25 season) 2024 RSV Vaccines (1 - 1-dose 75+ series) 2026 [employer] Devices Not on file Insurance Care Teams Skelp Processor Relationship Specialty Start Date End Date Pcp, Mayte PCP - General Family Medicine 08/15/20
--- OUTSIDE RECORDS SUMMARY | 2024-07-12 11:04 | XMS_ITS | Encounter Summary ---
Author Organization [facility] Address [address] [place] [address] Care Team Providers Care Bridge Crew Member Name Role Phone Brandyn Pagan MD Primary Care Provider Radha Cuevas NP Unavailable Unavailable Unknown Pcp, Non Rmg Primary Care Provider Unava ilable Reason for Visit * Reason Comments ER F/U Encounter Details Date Type Department Care Team (Late st Contact Info) Description 07/29/2016 [facility] Internal Medicine [address] [place] [phone] Brandyn Pagan MD ER F/U Social [...] following an Emergency Department visit. ED location: [facility] ER Date of ED Visit: 07-26-16 [...] on filedocumented in this encounter Care Teams Bridge Crew Member Relationship Specialty Start Date End Date Brandyn Pagan MD PCP - General Internal Medicine 08/07/15 02/02/17 Radha Spangler NP PCP - Backup PCP Internal Medicine 01/11/16 02/02/17 Unknown Pcp, Non Rmg PCP - General 02/03/17 documented as of this encounter
--- OUTSIDE RECORDS SUMMARY | 2024-07-12 11:04 | XMS_ITS | Clinical Summary ---
Author Organization [facility] Address [address] [place] [address] Care Team Providers Care Boarding Kennel Or Cattery Operator Name Role Phone Unknown Pcp, Non Rmg [...] however patient is planning on moving to [place] in the next few weeks. She does [...] compared with previous ct scan from [facility], but NEW lung nodule R middle lobe 2 mm. Will f/u with screen CT in 1 year HTN 11/02/2015 Cervical spondylosis with radiculopathy 11/02/19 16 Flat foot (pes planus) (acquired), left foot Psoriasis 11/02/2015 Major depression in partial remission 11/02/2015 Overview (12/21/2016): Refer to PCP cpe dated 01/11/16 Psych: Reports anxiety and depression are stable. Sees Dr. Alvarado psychiatrist, in [place]. He prescribes lamotrigine, duloxetine, tramadol, Adderall. 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 Irene Christensen in [place]. Confirmed with their office that she is [...] Radha Spangler NP Procedures * Due to [place] [employer] law, this organization might not be sharing negative HIV tests. Procedure Name Priority Date/Time Associated Diagnosis Comments MAMMOGRAPHY-BILATERAL 06/05/2014 PAP SMEAR 06/05/2014 from Last 3 Months or Most Recently Relevant to Health Maintenance Results * Due to [place] [employer] law, this organization might not be sharing [...] Documents on File Type Date Recorded Patient Cold Mill Operator Expl anation Advance Directives and Living Will 03/11/2016 Care Teams Boarding Kennel Or Cattery Operator Relationship Specialty Start Date End Date Unknown Pcp, Non Rmg PCP - General 02/03/17
--- OUTSIDE RECORDS SUMMARY | 2024-07-12 11:04 | XMS_ITS | Encounter Summary ---
Author Organization [facility] Address [address] [place] [address] Care Team Providers Care Hydraulic Pile Hammer Operator Name Role Phone Brandyn Pagan MD Primary Care Provider Unavaila Radha Fink NP Unavailable Unavailable Unknown Pcp, Non Rmg Primary Care Provider Unava ilable Encounter Details Date Type Department Care Team (Late st Contact Info) Description 09/21/2016 Orders Only [facility] Pre-Admission Testing [address] [place] [address] Filiberto May MD [address] [place] [address] Social History Tobacco Use Types Packs/Day Years [...] this encounter Procedures * Due to [place] state law, this organization might not be sharing negative HIV tests. Procedure Name Priority Date/Time Associated Diagnosis Comments BASIC METABOLIC PANEL WITH (GFR) Routine 09/21/2016 1:41 PM EDT BILLIE (obstructive sleep apnea) documented in this encounter Results * Due to [place] state law, this organization might not be [...] approximately 13% higher for people identified as -[place]. GFR 50(L) > OR = 60 mL/min/1. [...] needs for GFR calculation. Resulting Agency Comment [id number] us Filiberto May MD LABORATORY Final Result [facility] [address] [place] [address] documented in this encounter Visit Diagnoses Diagnosis BILLIE (obstructive sleep apnea) Obstructive sleep apnea (adult) (pediatric) documented in this encounter Care Teams Hydraulic Pile Hammer Operator Relationship Specialty Start Date End Date Brandyn Pagan MD PCP - General Internal Medicine 08/07/15 02/02/17 Radha Spangler NP PCP - Backup PCP Internal Medicine 01/11/16 02/02/17 Unknown Pcp, Non [facility] PCP - General 02/03/17 documented as of this encounter
--- OUTSIDE RECORDS SUMMARY | 2024-07-12 11:04 | XMS_ITS | Encounter Summary ---
Author Organization [facility] Address [address] [place] [address] Care Team Providers Care Pourer Name Role Phone Brandyn Pagan MD Primary Care Provider Unavaila Radha Fink NP Unavailable Unavailable Unknown Pcp, Non Rmg Primary Care Provider Unava ilable Encounter Details Date Type Department Care Team (Late st Contact Info) Description 03/18/2016 Orders Only [facility] [address] [place] [address] Radha Spangler NP Social History Tobacco Use [...] this encounter Procedures * Due to [place] [employer] law, this organization might not be sharing [...] this encounter Results * Due to [place] [employer] law, this organization might not be sharing negative HIV tests. * (ABNORMAL) BASIC METABOLIC PANEL WITH (GFR) (03/18/2016 10:02 AM EDT) Glucose 102(H) 65 - 99 mg/dL [facility] Comment: {GLUCOSE {[id number]) ? Fasting reference interval Urea Nitrogen Blood (BUN) 21 7 - 25 mg/dL [facility] Comment:{UREA NITROGEN (BUN) {[id number]) Creatinine 0.95 0.50 - 0.99 mg/dL [facility] Comment: {CREATININE {[id number]) For patients >49 years of age, the reference limit for Creatinine is approximately 13% higher for people identified as -[place] Citizen. GFR 63 > OR = 60 mL/min/1 .73m2 [facility] Comment:{eGFR NON-AFR. AMERI CAN {[id number]) GFR () 73 > OR = 60 mL/min/1 .73m2 [facility] Comment:{eGFR AMERIC AN {[id number]) BUN/Creatinine Ratio NOT APPLICABLE (calc) [facility] Comment:{BUN/CREATININE RATI O {[id number]) Sodium 139 135 - 146 mmol/L [facility] Comment:{SODIUM {[id number]) Potassium 4.8 3.5 - 5.3 mmol/L [facility] Comment:{POTASSIUM {[id number]) Chloride 106 98 - 110 mmol/L [facility] Comment:{CHLORIDE {[id number]) Carbon dioxide 25 20 - 31 mmol/L [facility] Comment:{CARBON DIOXIDE {[id number]) Calcium 9.3 8.6 - 10.4 mg/dL [facility] Comment:{CALCIUM {[id number]) 03/18/2016 10:0 2 AM EDT 03/18/2016 [...] needs for GFR calculation. Resulting Agency Comment [id number] Radha Spangler NP LABORATORY Final Result [facility] [address] [place] [address] * (ABNORMAL) CREATINE KINASE (CK), SERUM (03/18/2016 10:02 AM EDT) CPK 196(H) 29 - 143 U/L [facility] Comment:{CREATINE KINASE, TO KENZIE {[id number]) 03/18/2016 10:0 2 AM EDT 03/18/2016 4:21 PM EDT Narrative Resulting Agency Comment [id number] Radha Spangler NP LAB SAME DAY RESULT Final Re sult [facility] [address] [place] [address] * (ABNORMAL) ALANINE AMINOTRANSFERASE (ALT), SERUM (03/18/2016 10:02 AM EDT) ALT (SGPT) 32(H) 6 - 29 U/L [facility] Comment:{ALT {[id number]) 03/18/2016 10:0 2 AM EDT 03/18/2016 4:21 PM EDT Narrative Resulting Agency Comment [id number] Radha Spangler CLARIFIER OPERATOR LAB SAME DAY RESULT Final Re sult Performing Organization Address [facility] Co de Phone Number [facility] [address] [place] [address] * (ABNORMAL) LIPID PANEL WITH REFLEX TO DIRECT LDL (03/18/2016 10:02 AM EDT) Cholesterol 274(H) 125 - 200 mg/dL [facility] Comment:{CHOLESTEROL, TOTAL {[id number]) HDL Cholesterol 74 > OR = 46 mg/dL [facility] Comment:{HDL CHOLESTEROL {[id number]) Triglyceride 165(H) <150 mg/dL [facility] Comment:{TRIGLYCERIDES {[id number]) LDL Cholesterol 167(H) <130 mg/dL (calc) [facility] Comment: {LDL-CHOLESTEROL {[id number]) Desirable range <100 mg/dL for patients with CHD or diabetes and <70 mg/dL for diabetic patients with known heart disease. CHOL/HDL Ratio 3.7 < OR = 5.0 (calc) [facility] Comment:{CHOL/HDLC RATIO {[id number]) Cholesterol Non-HDL 200(H) mg/dL (calc) [facility] Comment: {NON HDL CHOLESTEROL {[id number]) Target for non-HDL cholesterol is 30 mg/dL higher than LDL cholesterol target. 03/18/2016 10:0 2 AM EDT 03/18/2016 4:21 PM EDT Narrative Resulting Agency Comment [id number] Radha Spangler NP LABORATORY Final Result [facility] [address] [place] [address] documented in this encounter Visit Diagnoses Diagnosis Hyperlipidemia, unspecified hyperlipidemia type Essential hypertension with goal blood pressure less than 140/90 documented in this encounter Care Teams Pourer Relationship Specialty Start Date End Date Brandyn Pagan MD PCP - General Internal Medicine 08/07/15 02/02/17 Radha Spangler NP PCP - Backup PCP Internal Medicine 01/11/16 02/02/17 Unknown Pcp, Non Rmg PCP - General 02/03/17 documented as of this encounter
--- OUTSIDE RECORDS SUMMARY | 2024-07-12 11:04 | XMS_ITS | Encounter Summary ---
Author Organization [facility] Address [address] [place] [address] Care Team Providers Care Contracts Director Name Role Phone Brandyn Pagan MD Primary Care Provider Unavaila Radha Fink NP Unavailable Unavailable Unknown Pcp, Non Rmg Primary Care Provider Unava ilable Encounter Details Date Type Department Care Team (Late st Contact Info) Description 09/21/2016 Orders Only [facility] [address] [place] [address] Radha Spangler NP Social History Tobacco Use [...] encounter Procedures * Due to [place] [employer] law, this organization might not be sharing negative HIV tests. Procedure Name Priority Date/Time Associated Diagnosis Comments ALANINE AMINOTRANSFERASE (ALT), SERUM Routine 09/21/2016 1:41 PM EDT Hyperlipidemia, unspecified hyperlipidemia type LIPID PANEL WITH REFLEX TO DIRECT LDL Routine 09/21/2016 1:41 PM EDT Hyperlipidemia, unspecified hyperlipidemia type documented in this encounter Results * Due to [place] [employer] law, this organization might not be sharing negative HIV tests. * ALANINE AMINOTRANSFERASE (ALT), SERUM (09/21/2016 1:41 PM EDT) ALT (SGPT) 25 6 - 29 U/L [facility] 09/21/2016 1:41 PM EDT 09/21/2016 6:16 PM EDT Narrative Resulting Agency Comment [id number] Radha Spangler 8TH GRADE TEACHER LAB SAME DAY RESULT Final Re sult [facility] [address] [place] [address] * (ABNORMAL) LIPID PANEL WITH REFLEX TO [...] 6:16 PM EDT Narrative Resulting Agency Comment [id number] Radha Spangler NP LABORATORY Final Result [facility] [address] [place] [address] documented in this encounter Visit Diagnoses Diagnosis Hyperlipidemia, unspecified hyperlipidemia type documented in this encounter Care Teams Contracts Director Relationship Specialty Start Date End Date Brandyn Pagan MD PCP - General Internal Medicine 08/07/15 02/02/17 Radha Spangler NP PCP - Backup PCP Internal Medicine 01/11/16 02/02/17 Unknown Pcp, Non Rmg PCP - General 02/03/17 documented as of this encounter
--- OUTSIDE RECORDS SUMMARY | 2024-07-12 11:04 | XMS_ITS | Data Portability ---
Author Organization [facility] [place] Address [address] [place] [address] Care Team Providers Care Detective Automobile Section Name Role Phone JANIE SOLOMON Primary Care [...] and prognosis were reviewed with the patient. [email or web address] Not available 07/31/2023 03:00:11 Plan of Treatment Reminders Order Date Submit Date Provider Last Modified By Organization Details Last Modified Time Details Appointments None recorded . Lab fungus, culture, skin or hair or nails - left hallux nail 024 10/19/19 24 [facility], [address], [place], [address], 4 09:21:19 Referral None recorded . Procedures None recorded . Surgeries None recorded . Imaging XR, ankle, 3 or more view 024 07/31/19 24 3 [facility], [address], [place], [address], 4 00:03:13 Medication Orders None recorded . Patient TargetsNo targets recorded. Patient InstructionsNo instructions recorded. Reason for Referral None Reported. Results Created Date Observation Date Name Description Value Unit Range Abnormal Flag Note LastModifiedBy Organization Detail LastModifiedTime 07/31/19 24 XR, ankle , 3 or more view No observ ation record ed. [facility] [address] [place], [address], 07/31/2023 00:03:11 Result Notes None recorded. Procedures Surgical History Date Name Laterality Status Provider Name and Address Organization Details Recorded Time procedure on knee completed [facility] 07/21/2023 16:09:01 procedure on hip completed [facility] 07/21/2023 16:09:08 procedure on back completed [facility] 07/21/2023 16:09:18 procedure on neck completed [facility] 07/21/2023 16:09:26 Imaging Results Imaging Date Name Status LastModified by Organiz ation Details LastModified Time 07/31/2023 XR, ankle, 3 or more view completed [id number] [facility] [address], [place], [address], 07/31/2023 00:03:11 Procedure Notes None recorded. Medical Equipment None Reported. Allergies Allergen ID Allergen Name Allergen Category Reaction Reaction Severity Criticality Documentation Date Start Date Code Code System Note Provider Name and Address Organization Details Recorded Time 228699 Product containin g 3-hydroxy -3-methyl glutaryl- coenzyme A reductase inhibitor (product) medicatio n Not available Not available Not available 07/21/2023 50045 009 SNOMED [facility] 16:06:50 Medications Name Sig Start Date Stop [...] HOURS NEEDED FOR POST OP PAIN DNF [id number] 07/20 completed Not Available Not Available Not [...] Not Available Not Available No t Available [place] Thyroid 30 mg tablet TAKE 1 ORAL [...] DateTime 03/01/202 4 167.64 cm 35.5 kg/m2 41580.3 2 g 77 /min 155 mm[Hg] 102 mm[Hg] Kelly Mcdonald [facility] 4 16:08:09 Date Recorded Body height Body mass index (BMI) Body weight Heart rate Systolic blood pressure Diastolic blood pressure Provider Name and Address Organization Details Last Updated DateTime 4 167.64 cm 35.5 kg/m2 15844.3 2 g 68 /min 155 mm[Hg] 95 mm[Hg] Kelly Mcdonald [facility] 4 16:56:50 Date Recorded Body height Body mass index (BMI) Body weight Heart rate Systolic blood pressure Diastolic blood pressure Provider Name and Address Organization Details Last Updated DateTime 4 167.64 cm 35.5 kg/m2 23730.3 2 g 81 /min 118 mm[Hg] 65 mm[Hg] Kelly Mcdonald [facility] 4 14:22:16 Social History Question Answer Notes LastModified by Organizat ion Details LastModified Time Tobacco Smoking Status Former Smoker Kelly Mcdonald [facility] 07/21/2023 16:08:43 Do You Have An Advance [...] Do You Have A Medical Power Of Reversal Print Inspector? No Information not available 07/21/2023 What Is Your Relationship Status? Single Information not available 09/28/2023 Sex: Unknown Functional Status Question Answer Note LastModified by Organization D etails LastModified Time Are you able to walk? YESWOREST Information not available 09/28/2023 Mental Status None recorded. Family History Nothing Reported. Medical History Condition Response Diabetes N Arthritis Y Back Pain Y Neuropathy Y Rheumatoid Arthritis N Stroke Y Hypertension Y Gynecological HistoryNo gynecological history recorded. Obstetrics History GPAL:G 0 P 0 0 0 0 Past Encounters Encounter ID Performer Location Encounter Start Date Encounter Closed Date Diagnosis/Indication Diagnosis SNOMED-CT Code Diagnosis ICD10 Code Diagnosis Note [id number] Jair Winter DPM [facility] [address] [place] [address] 07/21/2023 15:55:39 07/21/2023 16:23:11 Acquired valgus deformity of left ankle [id number] 83434 M21.072 X-rays 3 views left foot DP/LAT/LO [...] sent to PCP for L1970 and L2820. [id number] Jair Winter DPM [facility] [address] [address] 09/28/2023 15:34:38 09/28/2023 17:16:16 Acquired valgus deformity of left ankle [id number] 27841 M21.072 Curry brace AFO with 6degrees varus [...] from the lab for dispensing and fitting. [id number] Jair Winter DPM [facility] [address] [address] 10/19/2023 14:03:51 10/19/2023 15:20:34 Dystrophia unguium 03502626 L60.3 Condition( s), etiologies , and options [...] Acquired v algus deformity of left ankle [id number] 08428 M21.072 Curry brace AFO with 6 degrees [...] orthoses until they are wearing the orthoses multimedia developer. The AFO device was comfortabl e and [...] [employer] - GOLD [employer]US (MEDICARE REPLACEMENT HMO) [id number] Genie Vora [id number] Genie Vora 09/28/2023 1 [employer] - GOLD [employer]US (MEDICARE REPLACEMENT HMO) [id number] Genie Vora [id number] Genie Vora 10/19/2023 1 [employer] - GOLD PLUS (MEDICARE REPLACEMENT HMO) [id number] Genie Vora [id number] Genie Vora Notes Date Note Type Note Provider Name and Address Organization Details Recorded Time 07/21/2023 text/html New patient presents for management of painful left foot and ankle. The patient reports that ankle has slowly sagged in the medial direction. He denies any history of trauma. It is worse with prolonged standing or walking.Reported past medical history was reviewed. Jair Winter DPM [address] [place], [address], [facility] 07/31/2023 03:01:43 09/28/2023 text/html The patient presents for scanning of her left foot and ankle for a Curry brace. This will help her progressive left ankle valgus deformity. Jair Winter DPM [address] [place], [address], [facility] 09/28/2023 21:49:44 10/19/2023 text/html 1. [place] Brace bead picker for left ankle.2. Concerned about increasing yellowing of toenails. Jair Winter DPM [address] [place], [address], [facility] 10/22/2023 16:25:45 OBGyn Episode No OBEpisode recorded.
--- OUTSIDE RECORDS SUMMARY | 2024-07-12 11:04 | XMS_ITS | Encounter Summary ---
Author Organization [facility] Address [address] [place] [address] Care Team Providers Care Sales Order Clerk Name Role Phone Brandyn Pagan MD Primary Care Provider Radha Cuevas NP Unavailable Unavailable Unknown Pcp, Non [facility]mg Primary Care Provider Unava ilable Encounter Details Date Type Department Care Team (Late st Contact Info) Description 09/09/2016 Orders Only [facility] [address] [place] [address] Brandyn Pagan MD Social History Tobacco Use [...] of this encounter Procedures * Due to [place] [employer] law, this organization might not be sharing negative HIV tests. Procedure Name Priority Date/Time Associated Diagnosis Comments URINALYSIS, DIP ONLY STAT (All results called to provider) 09/09/2016 12:32 PM EDT Frequency of urination CULTURE, URINE, ROUTINE Routine 09/09/2016 12:28 PM EDT Frequency of urination URINALYSIS, MICROSCOPIC Routine 09/09/2016 12:28 PM EDT Frequency of urination documented in this encounter Results * Due to [place] [employer] law, this organization might not be sharing negative HIV tests. * URINALYSIS, DIP ONLY ( SITE STAT ONLY) (09/09/2016 12:32 PM EDT) COLOR (URINE) Yellow [facility] (CLIA# [id number]) APPEARANCE (URINE) Clear Clear [facility] (CLIA# [id number]) SPECIFIC GRAVITY 1.015 1.001 - 1.035 [facility] (CLIA# [id number]) PH (URINE) 6.0 5.0 - 8.0 [facility] (CLIA# [id number]) PROTEIN (URINE) Negative Neg [facility] (CLIA# [id number]) GLUCOSE (URINE) Negative Neg [facility] (CLIA# [id number]) Ketones (Urine) Negative Neg [facility] (CLIA# [id number]) BILIRUBIN (URINE) Negative Neg [facility] (CLIA# [id number]) BLOOD (URINE) Negative Neg [facility] (CLIA# [id number]) Leukocyte esterase (Urine) Negative Neg [facility] (CLIA# [id number]) NITRITE (URINE) Negative Neg [facility] (CLIA# [id number]) Urine specimen obtained by clean catch procedure (specimen) 09/09/2016 12:32 PM EDT Narrative [facility] (CLIA# [id number]) - 09/09/2016 12:36 PM EDT Micro and culture already ordered per provider. us Brandyn Pagan MD LAB SAME DAY RESULT Final Resul t Performing Organization Address [facility] de Phone Number [facility] (CLIA# [id number]) [address] [place] [address] * CULTURE, URINE, ROUTINE (09/09/2016 12:28 PM EDT) Bacteria culture (Urine) SEE NOTE [facility] Comment: ??CULTURE, URINE, ROUTINE ??MICRO NUMBER: ?[id number] ??TEST STATUS: ? FINAL ??SPECIMEN SOURCE: ?? URINE ??SPECIMEN QUALITY: ??ADEQUATE ??RESULT: ?Multiple organisms present, each less than 10,000 ? CFU/mL. These organisms, commonly found on ? external and internal genitalia, are considered ? to be colonizers. No further testing performed. 09/09/2016 12:2 8 PM EDT 09/09/2016 7:38 PM EDT Narrative Resulting Agency Comment [id number] us Brandyn Pagan MD LABORATORY Final Result Performing Organization Address [facility]/ZIP Co de Phone Number [facility] [address] [place] [address] * URINALYSIS, MICROSCOPIC (09/09/2016 12:28 PM EDT) [...] 7:38 PM EDT Narrative Resulting Agency Comment [id number] us Brandyn Pagan MD LAB SAME DAY RESULT Final Resul t [facility] [address] [place] [address] documented in this encounter Visit Diagnoses Diagnosis Frequency of urination Urinary frequency documented in this encounter Care Teams Sales Order Clerk Relationship Specialty Start Date End Date Brandyn Pagan MD PCP - General Internal Medicine 08/07/15 02/02/17 Radha Spangler NP PCP - Backup PCP Internal Medicine 01/11/16 02/02/17 Unknown Pcp, Non [facility] PCP - General 02/03/17 documented as of this encounter
== END 2024-07-12 10:17 | disposition home or self-care (01) ==
LOC: HO.MRI 10:16
PROVIDERS: PCP Nurse Practitioner Family; Visit Provider Physician Assistant
DX: G95.9 Disease of spinal cord, unspecified (principal)
CPT/HCPCS: 72141

== ENCOUNTER → 2024-07-12 10:27 | Outpatient (BNV) | payer MEDICARE, SELFPAY | PROVIDERS: PCP Nurse Practitioner Family; Visit Provider Radiology Diagnostic Radiology | DX: M43.12 Spondylolisthesis, cervical region (principal); M48.061 Spinal stenosis, lumbar region without neurogenic claudication | CPT/HCPCS: 72141 ==

== ENCOUNTER 2024-07-31 13:24 | Outpatient (AMB) | payer MEDICARE, SELFPAY ==
--- NOTE | 2024-07-31 13:26 | A.SPINEOV_ITS ---
Intake Visit Reasons: discuss her lumbar spine concerns Intake Note: Ms. Vora is here today to discuss lumbar spine concerns. Environmental Educator Required: No Allergies Statins Allergy (Severe, Uncoded 07/10/24 10:53) Muscle Pain Assessment & Plan Assessment & Plan (1) S/P lumbar spinal fusion: Code(s): Z98.1 - Arthrodesis status Category: Medical Plan HPI: Genie comes in today for a follow up visit to describe her lumbar spine concerns. She reports a pertinent past medical history of L4-[address] Pope. She reports that she is suffering from fairly severe axial low back pain, and further states that she was informed that she has a spond ylolisthesis above her fusion segment by her physician from [place]. She states that since October of last year she has had fairly severe axial low back pain. She does state that the left side is worse than the right when describing her low back pain. She identifies an inciting incident of this pain, and reports that she felt a sharp pain in her back when attempting to rise from a seated position. This is accompanied by shooting pains down her left lower extremity. She reports some numbness and tingling at the onset of this incident, but denies any numbness or tingling today. She is unable to localize the distribution of her pain in her left lower extremity, and simply states the entire left leg hurts. Imaging: X-ray of the lumbar spine completed in office today shows a grade 1 spondylolisthesis at L3-4 with severe degenerative disc disease at this level. There level may also be autofused already. The patient has an old fusion construct at L4-5. Plan: The patient is suffering from fairly severe axial low back pain in the setting of severe degenerative disc disease at the adjacent segment of her previous fusion. There is also notable spondylolisthesis at this segment. For these reasons I would like to send the patient for CT scan of the lumbar spine followed by MRI of the lumbar spine to evaluate for auto fusion and nerve impingement. She will likely need extension of her fusion to L3-4 pending her imaging review. I will discuss this case with Dr. Pope when her films and radiology read are available. I will call the patient back after this is complete. Merlin Pope MD,PhD [facility] Orders: Orders XR lumbar spine 4V min 07/31/24 M54.50 - Low back pain, unspecified CT lumbar spine wo IV con 07/31/24 Z98.1 - Arthrodesis status Coding Level of Care Code Est Pt Level 3 (26350) Diagnoses S/P lumbar spinal fusion Z98.1
--- OUTSIDE RECORDS SUMMARY | 2024-07-31 15:46 | XMS_ITS | Encounter Summary ---
Author Organization [facility] Address [address] [place] [address] Care Team Providers Care Canvas Cutter Machine Name Role Phone Brandyn Pagan MD Primary Care Provider Unavaila Radha Fink NP Unavailable Unavailable Unknown Pcp, Non [facility]mg Primary Care Provider Unava ilable Encounter Details Date Type Department Care Team (Late st Contact Info) Description 12/02/2016 Orders Only [facility] [address] [place] [phone] Brandyn Pagan MD Social History Tobacco Use [...] Cervicalgia documented in this encounter Care Teams Canvas Cutter Machine Relationship Specialty Start Date End Date Brandyn Pagan MD PCP - General Internal Medicine 08/07/15 02/02/17 Radha Spangler NP PCP - Backup PCP Internal Medicine 8/22/16 9/14/17 Unknown Pcp, Non Rmg PCP - General 02/03/17 documented as of this encounter
--- OUTSIDE RECORDS SUMMARY | 2024-07-31 15:46 | XMS_ITS | Encounter Summary ---
Author Organization [facility] Address [address] [place] [address] Care Team Providers Care Lead Ramp Agent Name Role Phone Bijal Fox READY MIX TRUCK DRIVER Primary Care Provider [phone] Reason for Visit * Consultation (Routine) - Pending Review Specialty Diagnoses / Procedures Referred By Contadam t Referred To Contact Family Medicine / Cardiology Diagnoses *TCM d/c 2/5 Procedures TRANSITIONAL CARE MANAGEMENT Bijal Fox NP [address] [address] Phone: tel: fax: Mabel Onofre NP [address] [place] [address] Phone: tel: fax: Referral ID Status Reason Start Date Expiration Date V isits Requested Visits Authorized [id number] Pending Review 07/03/2024 01/02/2026 6 6 Encounter Details Date Type Department Care Team (Late st Contact Info) Description 07/03/2024 2:30 PM EST Office Visit [address] Cardiology [address] [place] [address] Mabel Onofre NP [address] [place] [address] Diastolic heart failure, unspecified HF chronicity (HCC) (Primary Dx); Paroxysmal atrial fibrillation (HCC); Pulmonary hypertension (HCC); BILLIE (obstructive sleep apnea); Benign hypertensive heart disease without congestive heart failure Social History Tobacco Use Types Packs/Day Years Used Date Smoking Tobacco: Former Smokeless Tobacco: Never Comments:: Alcohol Use Standard Drinks/Week Comments Not Currently 0 (1 standard drink = 0.6 oz pur e alcohol) [facility] Utilities Answer Date Recorded In the past [...] Cardiology Outpatient Follow Up Visit [email or web address] Genie [email or web address] 1950 [id number] Impression / Recommendations 1. Diastolic heart failure, [...] card. Her insurance will be changing to [employer] in July and that will be affordable [...] follow-up. [place]. She presented to the [...] Family History of depression Allergies Prevacid [Lansoprazole] Vbiupcb-Hvu-Hia Reductase Inhibitors Medications Current Outpatient Medications Medication [...] possible toobtain the completed interpretation. Workstation ID: [id number] Prior Echo Procedures Transthoracic echo (TTE) Exam [...] Upcoming Encounters Date Type Department Care Team ([facility] st Contact Info) Description 08/01/2024 2:00 PM EDT Follow-Up [facility] Nephrology 100 [facility] [address] [place] [address] John Hendricks MD [address] [address] 09/18/2024 11:00 AM EDT Follow-Up [facility] [address] [place] [address] MarvinJeffery PA [address] [place] [address] 01/08/2025 10:00 AM EDT Follow-Up [facility] 100 [facility] Cardiology [address] [place] [address] [address] [place] [address] Mabel Onofre NP 100 [facility] [address] [place] [address] documented as of this encounter Visit Diagnoses Diagnosis Diastolic heart failure, unspecified HF chronicity (HCC)- Primary Paroxysmal atrial fibrillation (HCC) Atrial fibrillation Pulmonary hypertension (HCC) Other chronic pulmonary heart diseases BILLIE (obstructive sleep apnea) Obstructive sleep apnea (adult) (pediatric) Benign hypertensive heart disease without congestive heart failure Benign hypertensive heart disease without heart failure documented in this encounter Care Teams Lead Ramp Agent Relationship Specialty Start Date End Date Bijal Fox NP [address] [place] [address] PCP - General Family Medicine 05/30/24 documented as of this encounter
--- OUTSIDE RECORDS SUMMARY | 2024-07-31 15:46 | XMS_ITS | Encounter Summary ---
Author Organization [facility] Address [address] [place] [address] Care Team Providers Care Rn Allergy Name Role Phone Bijal Fox AUTOMATIC DISPENSER MECHANIC Primary Care Provider [phone] Encounter Details Date Type Department Care Team (Late st Contact Info) Description 07/16/2024 Lab Requisition [facility] [address] [place] [address] Bijal Fox, AUTOMATIC DISPENSER MECHANIC 100 [facility] [address] [place] [address] Urinary tract infection, site not specified Social History Tobacco Use Types Packs/Day Years Used Date Smoking Tobacco: Former Smokeless Tobacco: Never Comments:: Alcohol Use Standard Drinks/Week Comments Not Currently 0 (1 standard drink = 0.6 oz pur e alcohol) [facility] Utilities Answer Date Recorded In [...] Info) Description 08/01/2024 2:00 PM EDT Follow-Up [facility] Nephrology [address] [place] [address] [address] [place] [address] John Hendricks MD [address] [address] 09/18/2024 11:00 AM EDT Follow-Up [facility] [address] [place] [address] MarvinJeffery PA [address] [place] [address] 01/08/2025 10:00 AM EDT Follow-Up [address] Cardiology [address] [place] [address] Mabel Onofre NP [address] [place] [address] documented as of this encounter Procedures * Due to [place] state law, this organization might not be sharing negative HIV tests. Procedure Name Priority Date/Time Associated Diagnosis Comments URINE CULTURE, ROUTINE Routine 07/16/2024 12:33 PM EST Urinary tract infection, site not specified documented in this encounter Results * Due to [facility] law, this organization might not be sharing negative HIV tests. * (ABNORMAL) Urine Culture, Routine (07/16/2024 12:33 PM EST) Urine Culture >100,000 CFU/mL Escherichia coli(A) MINIMUM INHIBITORY CONCENTRATION (VLADIMIR) 07/18/2024 7:44 AM EST [facility] Urine specimen collection, clean catch / Unknown 07/16/2024 12:33 PM EST 07/16/2024 12:33 PM EST Narrative Organism Antibiotic Method Susceptibility Escherichia coli Ampicillin MINIMUM INHIBIT ORY CONCENTRATION (VLADIMIR) <=2 ug/ml: Susceptible Escherichia coli Ampicillin + Sulbactam MINIMUM INHIBITORY CONCENTRATION (VLADIMIR) <=2 ug/ml: Susceptible Escherichia coli Cefepime MINIMUM INHIBIT ORY CONCENTRATION (VLADIMIR) <=0.12 ug/ml: Susceptible Escherichia coli Ceftazidime MINIMUM INHIBIT ORY CONCENTRATION (VLADIMIR) <=0.5 ug/ml: Susceptible Escherichia coli Ceftriaxone MINIMUM INHIBIT ORY CONCENTRATION (VLADIMIR) <=0.25 ug/ml: Susceptible Escherichia coli Ciprofloxacin MINIMUM INHIBIT ORY CONCENTRATION (VLADIMIR) <=0.06 ug/ml: Susceptible Escherichia coli Ertapenem MINIMUM INHIBIT ORY CONCENTRATION (VLADIMIR) <=0.12 ug/ml: Susceptible Escherichia coli Gentamicin MINIMUM INHIBIT ORY CONCENTRATION (VLADIMIR) <=1 ug/ml: Susceptible Escherichia coli Levofloxacin MINIMUM INHIBIT ORY CONCENTRATION (VLADIMIR) <=0.12 ug/ml: Susceptible Escherichia coli Meropenem MINIMUM INHIBIT ORY CONCENTRATION (VLADIMIR) <=0.25 ug/ml: Susceptible Escherichia coli Nitrofurantoin MINIMUM INHIBIT ORY CONCENTRATION (VLADIMIR) <=16 ug/ml: Susceptible Escherichia coli Piperacillin + Tazobactam MINIMUM INHIBITORY CONCENTRATION (VLADIMIR) <=4 ug/ml: Susceptible Escherichia coli Trimethoprim + Sulfamethoxazole MINIMUM INHIBITORY CONCENTRATION (VLADIMIR) <=20 ug/ml: Susceptible Comment:VLADIMIR values in mcg/mL . us Bijal Fox NP LAB MICROBIOLOGY - GENERAL [facility] Final Result [facility] 94 [facility] [address] [place] [address], documented in this encounter Visit Diagnoses Diagnosis Urinary tract infection, site not specified documented in this encounter Care Teams Rn Allergy Relationship Specialty Start Date End Date Bijal Fox NP [address] [place], [place] [address] [place] [address] PCP - General Family Medicine 05/30/24 documented as of this encounter
--- OUTSIDE RECORDS SUMMARY | 2024-07-31 15:46 | XMS_ITS | Encounter Summary ---
Author Organization [facility] Address [address] [place] [address] Care Team Providers Care Dietary Clerk Name Role Phone Bijal Fox NP Primary Care Provider [phone] Encounter Details Date Type Department Care Team (Late st Contact Info) Description 07/19/2024 12:10 PM EST Lab [facility] Site Department [address] [place] [address] Swelling of lower extremity (Primary Dx); Urinary tract infection without hematuria, site unspecified Social History Tobacco Use Types Packs/Day Years Used Date Smoking Tobacco: Former Smokeless Tobacco: Never Comments:: Alcohol Use Standard Drinks/Week Comments Not Currently 0 (1 standard drink = 0.6 oz pur e alcohol) [facility] Utilities Answer Date Recorded In the [...] Upcoming Encounters Date Type Department Care Team ([facility] st Contact Info) Description 08/01/2024 2:00 PM EDT Follow-Up [facility] Nephrology [address] [place] [address] [address] [place] [address] John Hendricks MD [address] [address] 09/18/2024 11:00 AM EDT Follow-Up [facility] [address] [place] [address] MarvinJeffery PA [address] [place] [address] 01/08/2025 10:00 AM EDT Follow-Up [address] Cardiology [address] [place] [address] Mabel Onofre NP [address] [address] documented as of this encounter Procedures * Due to [facility] law, this organization might not be sharing negative HIV tests. Procedure Name Priority Date/Time Associated Diagnosis Comments N-TERMINAL PROBRAIN NATRIURETIC PEPTIDE Routine 07/19/2024 10:59 AM EST Swelling of lower extremity URINE CULTURE, ROUTINE Routine 07/19/2024 10:59 AM EST Urinary tract infection without hematuria, site unspecified BASIC METABOLIC PANEL Routine 07/19/2024 10:59 AM EST Swelling of lower extremity documented in this encounter Results * Due to [place] state law, this organization might not be sharing negative HIV tests. * Urine Culture, Routine (07/19/2024 10:59 AM EST) Urine Culture <10,000 CFU/mL mixed gram positives; multiple organisms are present, suggestive of contamination at the time of collection. [place] [facility] 07/20/2024 8:13 AM EST [facility] Urine Urine specimen collection, clean catch / Unknown Non-Blood Collection / Unknown 07/19/2024 10:59 AM EST 07/19/2024 11:16 AM EST us Bijal Fox NP LAB MICROBIOLOGY - GENERAL [facility] Final Result Performing Organization Address City/State/[facility] Co de Phone Number [facility] 94 [facility] [address] [place] [address], [place] [phone] * (ABNORMAL) Basic Metabolic Panel (07/19/2024 10:59 AM EST) Pathologist [facility] NA 142 136 - 145 mmol/L 07/19/2024 11:41 AM EST [facility] K 4.0 3.5 - 5.1 mmol/L 07/19/2024 11:41 AM EST [facility] Cl 103 98 - 109 mmol/L 07/19/2024 11:41 AM EST [facility] CO2 29 22 - 32 mmol/L 07/19/2024 11:41 AM EST [facility] BUN 22 8 - 23 mg/dL 07/19/2024 11:41 AM EST [facility] Creatinine 1.42(H) 0.50 - 1.12 mg/dL 07/19/2024 11:41 AM EST [facility] Glucose 108(H) 60 - 99 mg/dL 07/19/2024 11:41 AM EST [facility] Calcium 8.9 8.4 - 10.4 mg/dL 07/19/2024 11:41 AM EST [facility] Anion Gap 14 >=0 07/19/2024 11:41 AM EST [facility] eGFR 39(L) >=60 mL/min/1. 73m2 07/19/2024 11:41 AM EST [facility] Comment:The estimated glomer ular filtration [...] peripheral vein / Unknown Venipuncture / Unknown 07/19/2024 10:59 AM EST 07/19/2024 11:17 AM EST Magy Sawyer NP LAB BLOOD ORDERABLES Final Res ult Performing Organization Address [facility] Co de Phone Number [facility] [address] [place] [address] [address] [place] [address], [place] [phone] * N-terminal ProBrain Natriuretic Peptide - [facility] & LEONARDO/LONI/Nicole Only (07/19/2024 10:59 AM EST) Pro-B-Type Natriuretic Peptide 281 <=900 pg/mL 07/19/2024 11:43 AM EST [facility] Comment: RULE IN CHF >/= 450 pg/mL for patients <50 years old RULE IN CHF >/= 900 pg/mL for patients 50-75 years old RULE IN CHF >/= 1800 pg/mL for patients >75 years old RULE OUT CHF </= 300 pg/mL (not age specific) Blood Structure of peripheral vein / Unknown Venipuncture / Unknown 07/19/2024 10:59 AM EST 07/19/2024 11:17 AM EST Magy Sawyer NP LAB BLOOD ORDERABLES Final Res ult Performing Organization Address City/[facility] Co de Phone Number [facility] [address] [place] [address], documented in this encounter Visit Diagnoses Diagnosis Swelling of lower extremity- Primary Urinary tract infection without hematuria, site unspecified documented in this encounter Care Teams Dietary Clerk Relationship Specialty Start Date End Date Bijal Fox NP 100 [facility] [address] [place] [address] PCP - General Family Medicine 05/30/24 documented as of this encounter
--- OUTSIDE RECORDS SUMMARY | 2024-07-31 15:46 | XMS_ITS | Encounter Summary ---
Author Organization [facility] Address [address] [place] [address] Care Team Providers Care C D Still Operator Name Role Phone Bijal Fox NP Primary Care Provider [phone] Encounter Details Date Type Department Care Team (Late st Contact Info) Description 07/01/2024 9:05 AM EST Lab [facility] Site Department [address] [place] [address] Diastolic heart failure, unspecified HF chronicity (HCC) Social History Tobacco Use Types Packs/Day Years Used Date Smoking Tobacco: Former Smokeless Tobacco: Never Comments:: Alcohol Use Standard Drinks/Week Comments Not Currently 0 (1 standard drink = 0.6 oz pur e alcohol) [facility] Utilities Answer Date Recorded In the [...] Description 08/01/2024 2:00 PM EDT Follow-Up [facility] Nephrology 100 [facility] [address] [place] [address] John Hendricks MD [address] [address] 09/18/2024 11:00 AM EDT Follow-Up [facility] [address] [place] [address] Marvin, AYAD Gil [address] [place] [address] 01/08/2025 10:00 AM EDT Follow-Up [address] Cardiology [address] [place] [address] [address] [place] [address] Mabel Onofre NP 100 [facility] 205 [place] [address] documented as of this encounter Procedures * Due to [place] state law, this organization might not be sharing negative HIV tests. Procedure Name Priority Date/Time Associated Diagnosis Comments N-TERMINAL PROBRAIN NATRIURETIC PEPTIDE Routine 07/01/2024 8:39 AM EST Diastolic heart failure, unspecified HF chronicity (HCC) BASIC METABOLIC PANEL Routine 07/01/2024 8:39 AM EST Diastolic heart failure, unspecified HF chronicity (HCC) documented in this encounter Results * Due to [place] state law, this organization might not be sharing negative HIV tests. * N-terminal ProBrain Natriuretic Peptide (07/01/2024 8:39 AM EST) Pro-B-Type Natriuretic Peptide 288 <=900 pg/mL 07/01/2024 9:39 AM EST [facility] Comment: RULE IN CHF >/= [...] EST 07/01/2024 9:05 AM EST Mabel Onofre ADZING AND BORING MACHINE OPERATOR LAB BLOOD ORDERABLES Final Result Performing Organization Address City/State/[facility] Co de Phone Number [facility] [address] [facility] [address] [place] [address], * (ABNORMAL) Basic metabolic panel (07/01/2024 8:39 AM EST) NA 140 136 - 145 mmol/L 07/01/2024 9:36 AM EST [facility] K 5.3(H) 3.5 - 5.1 mmol/L 07/01/2024 9:36 AM EST [facility] Cl 102 98 - 109 mmol/L 07/01/2024 9:36 AM EST [facility] CO2 29 22 - 32 mmol/L 07/01/2024 9:36 AM EST [facility] BUN 34(H) 8 - 23 mg/dL 07/01/2024 9:36 AM EST [facility] Creatinine 1.27(H) 0.50 - 1.12 mg/dL 07/01/2024 9:36 AM EST [facility] Glucose 113(H) 60 - 99 mg/dL 07/01/2024 9:36 AM EST [facility] Calcium 8.9 8.4 - 10.4 mg/dL 07/01/2024 9:36 AM EST [facility] Anion Gap 14 >=0 07/01/2024 9:36 AM EST [facility] eGFR 45(L) >=60 mL/min/1. 73m2 07/01/2024 9:36 AM EST [facility] Comment:The estimated glomer ular filtration [...] Onofre NP LAB BLOOD ORDERABLES Final Result [facility] [address] [place] [address], documented in this encounter Visit Diagnoses Diagnosis Diastolic heart failure, unspecified HF chronicity (HCC) documented in this encounter Care Teams C D Still Operator Relationship Specialty Start Date End Date Bijal Fox NP [address] [place] [address] PCP - General Family Medicine 05/30/24 documented as of this encounter
--- OUTSIDE RECORDS SUMMARY | 2024-07-31 15:46 | XMS_ITS | Encounter Summary ---
Author Organization [facility] Address [address] [place] [address] Care Team Providers Care Retread Operator Name Role Phone Bijal Fox NP Primary Care Provider Reason for Visit * Reason Comments Injections * Rehabilitation (Routine) - Authorized Specialty Diagnoses / Procedures Referred By Contact Referred To Contact Physical Medicine and Rehabilitation / Orthopaedic Surgery Diagnoses Primary osteoarthritis of left shoulder MarvinJeffery PA [address] [place] [address] Phone: tel:[phone] fax:[phone] Sonny Reed MD [address] [place] [address] Phone: tel:[phone] fax:[phone] Referral ID Status Reason Start Date Expiration Date Visits Requested Visits Authorized [id number] Authorized Specialty Services Required 07/22/2024 01/21/2026 6 6 Encounter Details Date Type Department Care Team (Latest Contact Info) Description 07/31/2024 10:15 AM EDT Hospital Encounter [facility] [address] [place] [address] Sonny Reed MD [address] [place] [address] Chronic left shoulder pain (Primary Dx); Left shoulder pain, unspecified chronicity Social History Tobacco Use Types Packs/Day Years Used Date Smoking Tobacco: Former Smokeless Tobacco: Never Comments:: Alcohol Use Standard Drinks/Week Comments Not Currently 0 (1 standard drink = 0.6 oz pur e alcohol) [facility] Utilities Answer Date Recorded In the [...] Sign Reading Time Taken Comments Blood Pressure - - Pulse 53 07/31/2024 10:44 AM EDT Temperature 36.6 ??C (97.9 ??F) 07/31/2024 10:30 AM E DT Respiratory Rate - - Oxygen Saturation 90% 07/31/2024 10:44 AM EDT Inhaled Oxygen Concentration - - Weight - - Height - - Body Mass Index - - documented in this encounter Discharge Instructions * Patient Instructions* Geri Wang RN - 07/31/2024 10:31 AM EDT Today's procedure is Shoulder Injection You had an injection into a joint today. Please follow these instructions to obtain the maximum benefit. -Rest for the remainder of the day. You may resume normal activity tomorrow. -No driving for the remainder of the day (unless otherwise specified). -No shower today. You may remove the band aid tomorrow and shower in the morning. No tub, pool, jacuzzi for 24 hours. -Ice the injection site for the next 2 days if having discomfort. You may use heat after [address] a cloth between your skin and the ice/heat and apply for no more than 30 minutes at a time. Please call your doctor's office if you experience the following: -Fever/Chills (temperature above 101 degrees Fahrenheit). -Swelling, redness, or drainage at injection site -Numbness or weakness to affected extremity, different than normal, and lasting more than 24 hours. -The pain may get worse before it gets better. This is normal. Apply ice and continue taking the medication you use for discomfort. -If a steroid was used it will take 2-14 days or a bit longer to take full effect. You may experience hot flashes or facial flushing. This is not an allergic reaction. -If you are diabetic and a steroid was used expect your blood sugar to elevate for up to 2 weeks. Contact the doctor that manages your diabetes for any further instruction if needed. Dr. Reed During Business Hours 8am-4pm Scheduling concerns - [phone] Clinical concerns - [phone] After normal business hours - If you feel that you need to be evaluated for clinical symptoms, go to nearest Urgent Care or Emergency Room. documented in this encounter Progress Notes * Sonny Reed MD - 07/31/2024 10:45 AM EDTAssociated Order(s): Large Joint Inj/Asp: L glenohumeral Post-Procedure Diagnose(s): Left shoulder pain, unspecified chronicity Large Joint Inj/Asp: L glenohumeral Date/Time: 07/31/2024 10:15 AM Performed by: Sonny Reed MD Authorized by: Sonny Reed MD Consent: Patient identity confirmed: Name and with patient Verbal consent obtained: Yes Written consent obtained: Yes Risk and benefits discussed: Yes Written informed consent was obtained from the patient. Patient states understanding of procedure being performed: Yes Patient's understanding of procedure matches consent: Yes [place] Protocol: Procedure consent matches procedure scheduled: Yes All relevant documents/tests are correctly identified, labeled, and matched to patient: Yes Relevant tests/ Imaging studies available/reviewed: Yes Correct site marked: Yes Required blood products, implants, devices and special equipment available: Yes Immediately prior to the procedure a time out was called: Yes An attending physician was present for the procedure OR the procedure was performed by an Advanced Practice Provider: Yes Procedure Details: Location: shoulder - L glenohumeral Guidance: fluoroscopy Left Medications administered: 1 mL iohexoL 300 mg iodine/mL; 80 mg triamcinolone acetonide 40 mg/mL; 3 mL lidocaine PF 1% (10 mg/mL) Dressing: Band-Aid Post-procedure Details: Patient tolerance: patient tolerated the procedure well with no immediate complications Instructions: post-procedure instructions were reviewed Discharge: patient discharged from clinic in stable condition Genie Vora : 1950 CSN: [id number] * Sonny Reed MD - 07/31/2024 10:38 AM EDT The is a 74-year-old woman seen as a new patient with a chief complaint of left- sided shoulder pain. She has had pain in her left shoulder pain going on for 3 years. She had a left shoulder arthroscopic debridement which provided some benefit. She has trouble lifting her arm up overhead. She deniesnumbness ting weakness or pain shooting into her arm. She has had physical therapy yet her symptomspersist. She is here for evaluation of possible injection Past Medical History, Family History, Review Of Systems, Medications and Allergies: Reviewed in EPIC The patient is awake alert and oriented ??3. The patient is in no acute distress. Mood and affect are normal. Skin shows no lesions. Feet are warm and dry. Distal pulses are positive. There is no pedal edema. Mucous membranes are moist. Respirations are unlabored. Body habitus is overweight. Left shoulder range of motion is limited in abduction with a painful arc on abduction. Impingement signs are positive at the left shoulder. Muscle testing 5 out of 5 diffusely. Sensation intact light touch diffusely. Cervical spine range of motion is pain-free Left shoulder x-ray shows mild to moderate degenerative changes Left shoulder MRI from 2021 shows a biceps tear, mild to moderate arthritis, joint effusion, and a partial rotator cuff tear Impression #1 left shoulder pain #2 left shoulder arthritis #3 rotator cuff syndrome left shoulder The patient and I discussed in detail including diagnosis, treatment, and prognosis. Her symptoms are likely due to a combination of the above. We decided proceed a one-time left-sided intra-articular glenohumeral joint corticosteroid injection under fluoroscopic guidance for diagnostic and therapeutic purposes. This may allow her to participate in her physical therapy and do her exercises for rotator cuff syndrome a bit more effectively. She will follow-up with her joint team a few months thereafter. She understands risk benefits and alternatives to the above. If she does receive significantbenefit the injection could be repeated a few months for now documented in this encounter Miscellaneous Notes * Addendum Note - Geri Wang RN - 07/31/2024 10:48 AM EDTEncounter addended by: Geri Wang RN on: 07/31/2024 10:48 AM Actions taken: Flowsheet accepted, SmartForm saved documented in this encounter Plan of Treatment Upcoming Encounters Date Type Department Care Team ([facility] st Contact Info) Description 08/01/2024 2:00 PM EDT Follow-Up [facility] Nephrology [address] [place] [address] John Hendricks MD [address] [place] [address] 09/18/2024 11:00 AM EDT Follow-Up [facility] [address] [place] [address] Marvin, AYAD Gil [address] [place] [address] 01/08/2025 10:00 AM EDT Follow-Up [address] Cardiology 100 [facility] [address] [place] [address] Mabel Onofre, MEY [address] [facility] [address] [place] [address] documented as of this encounter Procedures * Due to [facility] law, this organization might not be sharing negative HIV tests. Procedure Name Priority Date/Time Associated Diagnosis Comments CHG FLUOROSCOPIC GUIDANCE NEEDLE PLACEMENT ADD ON Routine 07/31/2024 10:15 AM EDT Left shoulder pain, unspecified chronicity AK ARTHROCENTESIS ASPIR&/INJ MAJOR JT/BURSA W/O US Routine 07/31/2024 10:15 AM EDT Left shoulder pain, unspecified chronicity documented in this encounter Results * Due to [employer] law, this organization might not be sharing negative HIV tests. * AK ARTHROCENTESIS ASPIR&/INJ MAJOR JT/BURSA W/O US, CHG FLUOROSCOPIC GUIDANCE NEEDLE PLACEMENT ADD ON (07/31/2024 10:15 AM EDT) Narrative Sonny Reed MD - 07/31/2024 10:15 AM EDT Sonny Reed MD ? 07/31/2024 10:45 AM Large Joint Inj/Asp: L glenohumeral ? Date/Time: 07/31/2024 10:15 AM ? Performed by: Sonny Reed MD ? Authorized by: Sonny Reed MD Consent: ? Patient identity confirmed: Name and with patient ? Verbal consent obtained: Yes ? Written consent obtained: Yes ? Risk and benefits discussed: Yes ? Written informed consent was obtained from the patient. ? Patient states understanding of procedure being performed: Yes ? Patient's understanding of procedure matches consent: Yes [place] Protocol: ? Procedure consent matches procedure scheduled: Yes ? All relevant documents/tests are correctly identified, labeled, and matched to patient: Yes ? Relevant tests/ Imaging studies available/reviewed: Yes ? Correct site marked: Yes ? Required blood products, implants, devices and special equipment available: Yes ? Immediately prior to the procedure a time out was called: Yes An attending physician was present for the procedure OR the procedure was performed by an Advanced Practice Provider: Yes Procedure Details: ? Location: shoulder - L glenohumeral ? Guidance: fluoroscopy Left ? Medications administered: 1 mL iohexoL 300 mg iodine/mL; 80 mg triamcinolone acetonide 40 mg/mL; 3 mL lidocaine PF 1% (10 mg/mL) ? Dressing: Band-Aid Post-procedure Details: ? Patient tolerance: patient tolerated the procedure well with no immediate complications ? Instructions: post-procedure instructions were reviewed ? Discharge: patient discharged from clinic in stable condition Sonny Reed MD IN CLINIC/BEDSIDE ORDERABLES F inal Result documented in this encounter Visit Diagnoses Diagnosis Chronic left shoulder pain- Primary Pain in joint, shoulder region Left shoulder pain, unspecified chronicity documented in this encounter Administered Medications Inactive Administered Medications - up to 3 most recent administrations Medication Order MAR Action Action Date Dose Rate Site iohexoL (OMNIPAQUE) 300 mg iodine/mL injection 1 mL 1 mL, One-time injection, Starting on Mon07/31/24 at 1015, 1 dose, Until Mon07/31/24 at 1015Indications:Left shoulder pain, unspecified chronicity Given 07/31/2024 10:15 AM EDT 1 mL lidocaine PF (XYLOCAINE) 1% (10 mg/mL) injection 3 mL 3 mL, injection, One-time injection, Starting on Mon07/31/24 at 1015, 1 dose, Until Mon07/31/24 at 1015Indications:Left shoulder pain, unspecified chronicity Given 07/31/2024 10:15 AM EDT 3 mL triamcinolone acetonide (KENALOG-40) injection 80 mg 80 mg, intra-articular, One-time injection, Starting on Mon07/31/24 at 1015, 1 dose, Until Mon07/31/24 at 1015Indications:Left shoulder pain, unspecified chronicity Given 07/31/2024 10:15 AM EDT 80 mg documented in this encounter Care Teams Retread Operator Relationship Specialty Start Date End Date Bijal Fox NP [address] [place] [address] PCP - General Family Medicine 05/30/24 documented as of this encounter
--- OUTSIDE RECORDS SUMMARY | 2024-07-31 15:46 | XMS_ITS | Encounter Summary ---
Author Organization [facility] Address [address] [place] [address] Care Team Providers Care Rotor Blade Installer Name Role Phone Bijal Fox CONSULTING SERVICES ASSOCIATE Primary Care Provider [phone] Encounter Details Date Type Department Care Team (Late st Contact Info) Description 07/04/2024 Orders Only [facility] Lab [address] [place] [address] Magy Sawyer NP 100 [facility] [address] [place] [phone] Hyperlipidemia, unspecified hyperlipidemia type (Primary Dx); Myxedema heart disease Social History Tobacco Use Types Packs/Day Years Used Date Smoking Tobacco: Former Smokeless Tobacco: Never Comments:: Alcohol Use Standard Drinks/Week Comments Not Currently 0 (1 standard drink = 0.6 oz pur e alcohol) [facility] Utilities Answer Date Recorded In the past 12 months has th e Revert, gas, oil, or water [employer] threatened to shut off services in your [...] Upcoming Encounters Date Type Department Care Team ([facility] st Contact Info) Description 08/01/2024 2:00 PM EDT Follow-Up [facility] Nephrology [address] [place] [address] [address] [place] [address] John Hendricks MD [address] [address] 09/18/2024 11:00 AM EDT Follow-Up [facility] [address] [place] [address] MarvinJeffery PA [address] [place] [address] 01/08/2025 10:00 AM EDT Follow-Up [address] Cardiology [address] [place] [address] Mabel Onofre NP [address] [place] [address] documented as of this encounter Results * Due to [place] state law, this organization might not be sharing negative HIV tests. * T4, Free (07/13/2024 10:20 AM EST) Free T4 1.24 0.80 - 1.80 ng/dL 07/13/2024 11:15 AM EST [facility] Comment: Females: (ng/dL) First Trimester ? 0.95-1.58 ng/dL Second Trimester ?0.76-1.24 ng/dL Third Trimester ? 0.70-1.25 ng/dL Dietary supplements containing biotin may interfere in assays and may skew analyte results to be falsely high. ?? For patients receiving the recommended daily doses of biotin, draw samples at least 8 hours following the last biotin supplementation. ?? For patients on phyllis-doses of biotin supplements, draw samples at least 72 hours following the last biotin supplementation. Blood Structure of peripheral vein / Unknown Venipuncture / Unknown 07/13/2024 10:20 AM EST 07/13/2024 10:29 AM EST us Magy Sawyer NP LAB BLOOD ORDERABLES Final Res ult Performing Organization Address [facility] de Phone Number [facility] [address] [place] [address], [place] [phone] * TSH (07/13/2024 10:20 AM EST) TSH 3.750 0.270 - 4.200 uIU/mL 07/13/2024 11:15 AM EST [facility] Comment: Females: 1st trimester ? 0.150-4.000 ??IU/mL 2nd trimester ?? 0.310-4.170 ?IU/mL 3rd trimester ?0.380-4.150 ?IU/mL Blood Structure of peripheral vein / Unknown Venipuncture / Unknown 07/13/2024 10:20 AM EST 07/13/2024 10:29 AM EST us Magy Sawyer NP LAB BLOOD ORDERABLES Final Res ult Performing Organization Address [facility] de Phone Number [facility] [address] [place] [address], [place] [phone] * (ABNORMAL) Comprehensive Metabolic Panel (07/13/2024 10:20 AM EST) NA 142 136 - 145 mmol/L 07/13/2024 11:15 AM [facility] K 4.6 3.5 - 5.1 mmol/L 07/13/2024 11:15 AM [facility] Cl 104 98 - 109 mmol/L 07/13/2024 11:15 AM [facility] CO2 28 22 - 32 mmol/L 07/13/2024 11:15 AM [facility] Anion Gap 15 >=0 07/13/2024 11:15 AM [facility] Glucose 94 60 - 99 mg/dL 07/13/2024 11:15 AM [facility] Creatinine 1.40(H) 0.50 - 1.12 mg/dL 07/13/2024 11:15 AM [facility] Calcium 9.4 8.4 - 10.4 mg/dL 07/13/2024 11:15 AM [facility] Total Protein 6.4(L) 6.6 - 8.7 g/dL 07/13/2024 11:15 AM [facility] Albumin 3.7 3.5 - 5.0 g/dL 07/13/2024 11:15 AM [facility] Bilirubin, Total 0.4 0.2 - 1.2 mg/dL 07/13/2024 11:15 AM [facility] Alkaline Phosphatase 113 40 - 129 U/L 07/13/2024 11:15 AM [facility] AST 25 0 - 33 U/L 07/13/2024 11:15 AM [facility] ALT 33 <=33 U/L 07/13/2024 11:15 AM [facility] BUN 20 8 - 23 mg/dL 07/13/2024 11:15 AM [facility] eGFR 40(L) >=60 mL/min/1. 73m2 07/13/2024 11:15 AM [facility] Comment:The estimated glomer ular filtration rate [...] in Diagnosing Kidney Disease . Globulin, Total 2.7 2.1 - 4.2 g/dL 07/13/2024 11:15 AM EST [facility] A/G Ratio 1.4(L) 1.5 - 3.0 07/13/2024 11:15 AM EST [facility] Blood Structure of peripheral vein / Unknown Venipuncture / Unknown 07/13/2024 10:20 AM EST 07/13/2024 10:29 AM EST us Magy Sawyer NP LAB BLOOD ORDERABLES Final Res ult Performing Organization Address City/State/[facility] Co de Phone Number [facility] [address] [place] [address] [address] [place] [address], [place] [phone] * Lipid panel (07/13/2024 10:20 AM EST) Cholesterol 259 mg/dL 07/13/2024 11:15 AM EST [facility] Comment: DESIRABLE: <200 mg/dL BORDERLINE HIGH: 200-239 mg/dL HIGH: >239 mg/dL Triglycerides 123 mg/dL 07/13/2024 11:15 AM EST [facility] Comment: NORMAL: <150 mg/dL BORDERLINE HIGH: 150-199 mg/dL HIGH: 200-499 mg/dL VERY HIGH >499 mg/dL Cholesterol, HDL 72 mg/dL 07/13/19 11:15 AM EST [facility] Comment: DESIRABLE: >60 mg/dL BORDERLINE: 40-59 mg/dL UNDESIRABLE: <40 mg/dL LDL Cholesterol 162 mg/dL 11:15 AM EST [facility] Comment: OPTIMAL: <100 mg/dL NEAR OPTIMAL: <130 mg/dL BORDERLINE HIGH: 130-159 mg/dL HIGH: 160-189 mg/dL VERY HIGH: >189 mg/dL VLDL 24.6 mg/dL 07/13/2024 11:15 AM EST [facility] Cholesterol/HDL Ratio 3.6 07/13/2024 11:15 AM EST [facility] Blood Structure of peripheral vein / Unknown Venipuncture / Unknown 07/13/2024 10:20 AM EST 07/13/2024 10:29 AM EST us Magy Sawyer NP LAB BLOOD ORDERABLES Final Res ult [facility] [address] [facility] [address] [place] [address], documented in this encounter Visit Diagnoses Diagnosis Hyperlipidemia, unspecified hyperlipidemia type- Primary Myxedema heart disease Unspecified hypothyroidism documented in this encounter Care Teams Rotor Blade Installer Relationship Specialty Start Date End Date Bijal Fox NP 100 [facility] [address] [place] [address] PCP - General Family Medicine 05/30/24 documented as of this encounter
--- OUTSIDE RECORDS SUMMARY | 2024-07-31 15:46 | XMS_ITS | Encounter Summary ---
Author Organization [facility] Address [address] [place] [address] Care Team Providers Care Journeyman Tool And Die Maker Name Role Phone Bijal Fox NP Primary Care Provider [phone] Encounter Details Date Type Department Care Team (Latest Contact Info) Description 07/16/2024 10:45 AM EST - 07/16/2024 11:59 PM [facility] Hospital Encounter [facility] Xray Department [address] [place] [address] Heart failure, unspecified HF chronicity, unspecified heart failure type (HCC) Discharge Disposition: Home or Self Care () Social History Tobacco Use Types Packs/Day Years Used Date Smoking Tobacco: Former Smokeless Tobacco: Never Comments:: Alcohol Use Standard Drinks/Week Comments Not Currently 0 (1 standard drink = 0.6 oz pur e alcohol) [facility] Utilities Answer Date Recorded In the [...] PM EDT documented as of this encounter Medications at Time of Discharge [...] weight gain or swelling 30 tablet 11 07/03/2024 guaiFENesin ER (MUCINEX) 600 mg tablet Take 1 tablet (600 mg total) by mouth every 12 hours. 60 tablet 06/26/2024 ipratropium-albuter oL (DUO-NEB) 0.5-2.5 mg/3 mL nebulizer solution Inhale 3 mL via nebulizer every 4 hours as needed for wheezing or shortness of breath. 360 mL 06/26/2024 lisdexamfetamine (VYVANSE) 20 mg capsule Take 20 [...] mouth once a day. 30 packet 06/27/2024 traMADoL (ULTRAM) 50 mg tablet Take 50 mg by mouth every 8 hours as needed for pain. 06/28/2024 traZODone (DESYREL) 50 mg tablet Take 50 mg by mouth nightly. -- 1-2 TABS EVERY NIGHT, STARTS WITH 50 MG AND TAKES A SECOND TABLET IF NOT SLEEPING documented as of this encounter Plan of Treatment Upcoming Encounters Date Type Department Care Team ([facility] st Contact Info) Description 08/01/2024 2:00 PM EDT [facility]Up [facility] Nephrology [address] [place] [address] [address] [place] [address] John Hendricks MD 123 [facility] [address] [place] [address] 09/18/2024 11:00 AM EDT Follow-Up [facility] [address] [place] [address] Marvin, AYAD Gil [address] [place] [address] 01/08/2025 10:00 AM EDT Follow-Up [address] Cardiology 100 [facility] 205 [place] [address] Mabel Onofre, MEY 100 [facility] 205 [place] [address] documented as of this encounter Procedures * Due to [place] [employer] law, this organization might not be sharing negative HIV tests. Procedure Name Priority Date/Time Associated Diagnosis Comments XR CHEST 2 VW Routine 07/16/2024 11:04 AM EST Heart failure, unspecified HF chronicity, unspecified heart failure type (HCC) documented in this encounter Results * Due to [place] [employer] law, this organization might not be sharing negative HIV tests. * X-Ray Chest 2 Views (07/16/2024 11:04 AM EST) Anatomical Region Laterality Modality Body Radiographic Minda ging 07/17/2024 8:08 AM EST Impressions 07/17/2024 8:14 AM EST No change. Heart normal. Lungs and pleural spaces clear. Cervical spine fusion hardware noted. ?? If this radiology report contains a blank impression section, it is an incomplete radiology report. ??Please contact the interpreting radiologist or applicable radiology division as soon as possible to obtain the completed interpretation. ? Workstation ID: [id number] Narrative 07/17/2024 8:14 AM EST COMPARISON: ??06/22/2024 FINDINGS AND Resulting Agency Comment [id number] Procedure Note Calvin Katz MD - 07/17/2024 COMPARISON: 06/22/2024 FINDINGS AND IMPRESSION: No change. Heart normal. Lungs and pleural spaces clear. Cervical spinefusion hardware noted. If this radiology report contains a blank impression section, it is anincomplete radiology report. Please contact the interpreting radiologistor applicable radiology division as soon as possible to obtain thecompleted interpretation. Workstation ID: [id number] us Magy Sawyer TEAM ASSEMBLER IMG XR PROCEDURES Final Result documented in this encounter Visit Diagnoses Diagnosis Heart failure, unspecified HF chronicity, unspecified heart failure type (HCC) documented in this encounter Care Teams Journeyman Tool And Die Maker Relationship Specialty Start Date End Date Bijal Fox NP [address] [place] [address] PCP - General Family Medicine 05/30/24 documented as of this encounter
--- OUTSIDE RECORDS SUMMARY | 2024-07-31 15:46 | XMS_ITS | Encounter Summary ---
Author Organization [facility] Address [address] [place] [address] Care Team Providers Care Radio Repair Teacher Name Role Phone Brandyn Pagan MD Primary Care Provider Radha Cuevas NP Unavailable Unavailable Unknown Pcp, Non Rmg Primary Care Provider Unava ilable Reason for Visit * Reason Onset Date Comments Labs/orders 12/28/2015 Creatinine Order for Radiology with Contrast Encounter Details Date Type Department Care Team ([facility] st Contact Info) Description 12/28/2015 Telephone 300 [facility] [address] [place] [address] Radha Spangler NP Labs/orders (Creatinine [...] Cervicalgia documented in this encounter Care Teams Radio Repair Teacher Relationship Specialty Start Date End Date Brandyn Pagan MD PCP - General Internal Medicine 08/07/15 02/02/17 Radha Spangler NP PCP - Backup PCP Internal Medicine 01/11/16 02/02/17 Unknown Pcp, Non Rmg PCP - General 02/03/17 documented as of this encounter
--- OUTSIDE RECORDS SUMMARY | 2024-07-31 15:46 | XMS_ITS | Encounter Summary ---
Author Organization [facility] Address [address] [place] [address] Care Team Providers Care Acute Care Physical Therapist Name Role Phone Brandyn Pagan MD Primary Care Provider Unavaila Radha Fink NP Unavailable Unavailable Unknown Pcp, Non Rmg Primary Care Provider Unava ilable Encounter Details Date Type Department Care Team ([facility] st Contact Info) Description 12/29/2015 Orders Only 300 [facility] Magnetic Resonance Imaging [address] [place] [address] Radha Spangler NP Social History Tobacco Use [...] this encounter Procedures * Due to [place] [employer] law, this organization might not be sharing [...] this encounter Results * Due to [place] [employer] law, this organization might not be sharing negative HIV tests. * (ABNORMAL) BASIC METABOLIC PANEL WITH (GFR) (12/29/2015 10:04 AM EDT) Glucose 98 65 - 99 mg/dL [facility] Comment: {GLUCOSE {[id number]) ? Fasting reference interval Urea Nitrogen Blood (BUN) 22 7 - 25 mg/dL [facility] Comment:{UREA NITROGEN (BUN) {[id number]) Creatinine 1.20(H) 0.50 - 0.99 mg/dL [facility] Comment: {CREATININE {[id number]) For patients >49 years of age, the reference limit for Creatinine is approximately 13% higher for people identified as -British. GFR 48(L) > OR = 60 mL/min/1. 73m2 [facility] Comment:{eGFR NON-AFR. AMERI CAN {[id number]) GFR () 55(L) > OR = 60 mL/min/1. 73m2 [facility] Comment:{eGFR AMERIC AN {[id number]) BUN/Creatinine Ratio 18 6 - 22 (calc) [facility] Comment:{BUN/CREATININE RATI O {[id number]) Sodium 138 135 - 146 mmol/L [facility] Comment:{SODIUM {[id number]) Potassium 5.1 3.5 - 5.3 mmol/L [facility] Comment:{POTASSIUM {[id number]) Chloride 106 98 - 110 mmol/L [facility] Comment:{CHLORIDE {[id number]) Carbon dioxide 25 20 - 31 mmol/L [facility] Comment:{CARBON DIOXIDE {[id number]) Calcium 9.7 8.6 - 10.4 mg/dL [facility] Comment:{CALCIUM {[id number]) 12/29/2015 10:0 4 AM EDT 12/29/2015 [...] NP LABORATORY Final Result [facility] [address] [place] [address] * (ABNORMAL) LIPID PANEL WITH REFLEX TO DIRECT LDL (12/29/2015 10:04 AM EDT) Cholesterol 232(H) 125 - 200 mg/dL [facility] Comment:{CHOLESTEROL, TOTAL {[id number]) HDL Cholesterol 80 > OR = 46 mg/dL [facility] Comment:{HDL CHOLESTEROL {[id number]) Triglyceride 112 <150 mg/dL [facility] Comment:{TRIGLYCERIDES {[id number]) LDL Cholesterol 130(H) <130 mg/dL (calc) [facility] Comment: {LDL-CHOLESTEROL {[id number]) Desirable range <100 mg/dL for patients with CHD or diabetes and <70 mg/dL for diabetic patients with known heart disease. CHOL/HDL Ratio 2.9 < OR = 5.0 (calc) [facility] Comment:{CHOL/HDLC RATIO {[id number]) Cholesterol Non-HDL 152 mg/dL (calc) [facility] Comment: {NON HDL CHOLESTEROL {[id number]) Target for non-HDL cholesterol is 30 mg/dL higher than LDL cholesterol target. 12/29/2015 10:0 4 AM EDT 12/29/2015 3:11 PM EDT Narrative Resulting Agency Comment [id number] Radha Spangler NP LABORATORY Final Result Performing Organization Address City/[facility]/ZIP Co de Phone Number [facility] [address] [place] [phone] * ALANINE AMINOTRANSFERASE (ALT), SERUM (12/29/2015 10:04 AM EDT) ALT (SGPT) 25 6 - 29 U/L [facility] Comment:{ALT {[id number]) 12/29/2015 10:0 4 AM EDT 12/29/2015 3:11 PM EDT Narrative Resulting Agency Comment [id number] Radha Spangler NP LAB SAME DAY RESULT Final Re sult Performing Organization Address City/[facility] Co de Phone Number [facility] [address] [place] [address] documented in this encounter Visit Diagnoses Diagnosis Cervicodynia Cervicalgia Hyperlipidemia, unspecified hyperlipidemia type Essential hypertension with goal blood pressure less than 140/90 documented in this encounter Care Teams Acute Care Physical Therapist Relationship Specialty Start Date End Date Brandyn Pagan MD PCP - General Internal Medicine 08/07/15 02/02/17 Radha Spangler NP PCP - Backup PCP Internal Medicine 01/11/16 02/02/17 Unknown Pcp, Non Rmg PCP - General 02/03/17 documented as of this encounter
--- OUTSIDE RECORDS SUMMARY | 2024-07-31 15:46 | XMS_ITS | Encounter Summary ---
Author Organization [facility] Address [address] [place] [address] Care Team Providers Care Tar Heat Exchanger Cleaner Name Role Phone Bijal Fox NP Primary Care Provider Encounter Details Date Type Department Care Team (Late st Contact Info) Description 07/03/2024 Telephone [facility] Case Management Department [address] [place] [address] Mariajose Calvillo RN Social History Tobacco Use Types Packs/Day Years Used Date Smoking Tobacco: Former Smokeless Tobacco: Never Comments:: Alcohol Use Standard Drinks/Week Comments Not Currently 0 (1 standard drink = 0.6 oz pur e alcohol) [facility] Utilities Answer Date Recorded In the [...] CHF Patient Call: This Chronic Disease Nurse Direct Marketing Executive called and 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 She tells this song writer she is doing well. She was at the pharmacy picking up her prescription for her nebulizer medication, she has been working with PT/OT through [facility]. She does still get a little shortness of breath with exertion, but no issues at rest or when laying down. She will be changing insurances on 07/20/24 to [employer]. Did you review the COPD educational material given to you in the hospital? Yes Are you monitoring your triggers? Yes Are you having any shortness of breath, wheezing, coughing? Shortness of breath with exertion only Are you having any difficulty breathing when lying down? No Are you doing the pursed lip/diaphragm breathing? Reviewed again Did you contact your PCP or Crystal Slicer regarding your breathing issues? NA You have a follow up appointment with your PCP on: Was seen 07/02/24 You have a follow up appointment with your Crystal Slicer on: The PCP is supposed to make [...] the home sanitized, avoiding sick contacts, using apprenticeship consultant when out in the community) Are you [...] more than 64 ounces per day) This song writer sent a secure chat to the [facility] team and asked them to reach out to the patient to offer their services now that she had her TCM appointment with Cardiology. IF YOU ARE HAVING SYMPTOMS, DON'T WAIT UNTIL THEY ARE UNMANAGEABLE BEFORE YOU CALL THE DOCTOR. documented in this encounter Plan of Treatment Upcoming Encounters Date Type Department Care Team ([facility] st Contact Info) Description 08/01/2024 2:00 PM EDT Follow-Up [facility] Nephrology [address] [place] [address] [address] [place] [address] John Hendricks MD [address] [address] 09/18/2024 11:00 AM EDT Follow-Up [facility] 119 [place] [address] MarvinJeffery PA 119 [place] [address] 01/08/2025 10:00 AM EDT Follow-Up [address] Cardiology [address] [place] [address] [address] [place] [address] Mabel Onofre NP [address] [place] [address] [address] [place] [address] documented as of this encounter Visit Diagnoses Not on filedocumented in this encounter Care Teams Tar Heat Exchanger Cleaner Relationship Specialty Start Date End Date Bijal Fox NP [address] [place] [address] [address] [place] [address] PCP - General Family Medicine 05/30/24 documented as of this encounter
--- OUTSIDE RECORDS SUMMARY | 2024-07-31 15:46 | XMS_ITS | Encounter Summary ---
Author Organization [facility] Address [address] [place] [address] Care Team Providers Care Equipment Mechanic Name Role Phone Bijal Fox DIGITAL DEVELOPER Primary Care Provider [phone] Encounter Details Date Type Department Care Team (Late st Contact Info) Description 07/20/2024 Orders Only [facility] Site Department [address] [place] [address] Magy Sawyer NP [address] [phone] Swelling of limb (Primary Dx) Social History Tobacco Use Types Packs/Day Years Used Date Smoking Tobacco: Former Smokeless Tobacco: Never Comments:: Alcohol Use Standard Drinks/Week Comments Not Currently 0 (1 standard drink = 0.6 oz pur e alcohol) [facility] Utilities Answer Date Recorded In [...] EDT Follow-Up [facility] Nephrology [address] [place] [address] [address] [place] [address] John Hendricks MD [address] [address] 09/18/2024 11:00 AM EDT Follow-Up [facility] [address] [place] [address] MarvinJeffery PA [address] [place] [address] 01/08/2025 10:00 AM EDT Follow-Up [address] Cardiology [address] [place] [address] Mabel Onofre NP [address] [place] [address] Scheduled Orders Name Type Priority Associated Diagnoses Orde r Schedule N-terminal ProBrain Natriuretic Peptide - [facility]/V/[facility]aven Only Lab Routine Swelling of limb Expected: 07/20/2024, Expires: 07/20/2025 Basic Metabolic Panel Lab Routine Swelling of limb Expected: 07/20/2024, Expires: 07/20/2025 documented as of this encounter Visit Diagnoses Diagnosis Swelling of limb- Primary documented in this encounter Care Teams Equipment Mechanic Relationship Specialty Start Date End Date Bijal Fox NP [address] [place] [address] PCP - General Family Medicine 05/30/24 documented as of this encounter
--- OUTSIDE RECORDS SUMMARY | 2024-07-31 15:46 | XMS_ITS | Encounter Summary ---
Author Organization [facility] Address [address] [place] [address] Care Team Providers Care High Speed Warper Tender Name Role Phone Bijal Fox NP Primary Care Provider [phone] Encounter Details Date Type Department Care Team (Late st Contact Info) Description 07/02/2024 10:05 AM EST Lab [facility] Site Department [address] [place] [address] Social History Tobacco Use Types Packs/Day Years [...] Upcoming Encounters Date Type Department Care Team ([facility] st Contact Info) Description 08/01/2024 2:00 PM EDT Follow-Up [facility] Nephrology 100 [facility] 201 [place] [address] John Hendricks MD 123 [facility] [address] [place] [address] 09/18/2024 11:00 AM EDT Follow-Up [facility] [address] [place] [address] MarvinJeffery PA [address] [place] [address] 01/08/2025 10:00 AM EDT Follow-Up [facility] 100 [facility] Cardiology [address] [place] [address] 205 [place] [address] Mabel Onofre NP [address] [place] [address] 205 [place] [address] documented as of this encounter Visit Diagnoses Not on filedocumented in this encounter Care Teams High Speed Warper Tender Relationship Specialty Start Date End Date Bijal Fox NP [address] [place] [address] [address] [place] [address] PCP - General Family Medicine 05/30/24 documented as of this encounter
--- OUTSIDE RECORDS SUMMARY | 2024-07-31 15:46 | XMS_ITS | Encounter Summary ---
Author Organization [facility] Address [address] [place] [address] Care Team Providers Care Unix Systems Administrator Name Role Phone Bijal Fox NP Primary Care Provider [phone] Encounter Details Date Type Department Care Team (Latest Contact Info) Description 07/22/2024 11:08 AM EST - 07/22/2024 11:59 PM [facility] Hospital Encounter [facility] XRay [address] [place] [id number] Acute pain of left shoulder Discharge Disposition: Home or Self Care () [...] Description 08/01/2024 2:00 PM EDT Follow-Up [facility] Nephrology 100 [facility] 201 [place] [address] John Hendricks MD [address] [address] 09/18/2024 11:00 AM EDT Follow-Up [facility] 119 [place] [address] Marvin, AYAD Gil [address] [place] [address] 01/08/2025 10:00 AM EDT Follow-Up [address] Cardiology 100 [facility] [address] [place] [address] Mabel Onofre NP 100 [facility] [address] [place] [address] documented as of this encounter Procedures * Due to [place] [employer] law, this organization might not be sharing negative HIV tests. Procedure Name Priority Date/Time Associated Diagnosis Comments XR SHOULDER 2+ VW LEFT Routine 07/22/2024 11:45 AM EST Acute pain of left shoulder documented in this encounter Results * Due to [place] [employer] law, this organization might not be sharing negative HIV tests. * XR Shoulder 2+ vw Left (07/22/2024 11:45 AM EST) Anatomical Region Laterality Modality Upper Extremities, Shoulder Left Comp uted Radiography 07/22/2024 1:17 PM EST Impressions 07/22/2024 1:20 PM EST Left shoulder, AP view neutral and internal rotation axillary view and Y view. Mild osteopenia. No acute fractures dislocations. No calcific tendinosis. Degenerative changes at the tuberosities. Well-corticated ossicles at the distal clavicle questioned related to prior ununited fractures. AC joint space appears slightly widened. Mild to moderate degenerative arthropathy of the glenohumeral joint. If this radiology report contains a blank impression section, it is an incomplete radiology report. ??Please contact the interpreting radiologist or applicable radiology division as soon as possible to obtain the completed interpretation. ? Workstation ID: [id number] Narrative 07/22/2024 1:20 PM EST COMPARISON: ??There are no prior studies available for comparison at this time. ?? FINDINGS AND Resulting Agency Comment [id number] Procedure Note Rupali Barrios MD - 07/22/2024 COMPARISON: There are no prior studies available for comparison at thistime. FINDINGS AND IMPRESSION: Left shoulder, AP view neutral and internal rotation axillary view and Yview. Mild osteopenia. No acute fractures dislocations. No calcific tendinosis.Degenerative changes at the tuberosities. Well-corticated ossicles at the distal clavicle questioned related toprior ununited fractures. AC joint space appears slightly widened. Mild tomoderate degenerative arthropathy of the glenohumeral joint. If this radiology report contains a blank impression section, it is anincomplete radiology report. Please contact the interpreting radiologistor applicable radiology division as soon as possible to obtain thecompleted interpretation. Workstation ID: [id number] Jeffery LION IMG XR PROCEDURES Final Result documented in this encounter Visit Diagnoses Diagnosis Acute pain of left shoulder documented in this encounter Care Teams Unix Systems Administrator Relationship Specialty Start Date End Date Bijal Fox, MECHANIC INDUSTRIAL TRUCK [address] [place] [address] PCP - General Family Medicine 05/30/24 documented as of this encounter
--- OUTSIDE RECORDS SUMMARY | 2024-07-31 15:46 | XMS_ITS | Encounter Summary ---
Author Organization [facility] Address [address] [place] [address] Care Team Providers Care Section Beamer Name Role Phone Bijal Fox NP Primary Care Provider [phone] Encounter Details Date Type Department Care Team (Late st Contact Info) Description 07/13/2024 10:30 AM EST Lab [facility] Site Department [address] [place] [address] Heart failure, unspecified HF chronicity, unspecified heart failure type (HCC) (Primary Dx); Hyperlipidemia, unspecified hyperlipidemia type; Myxedema heart disease Social History Tobacco Use Types Packs/Day Years Used Date Smoking Tobacco: Former Smokeless Tobacco: Never Comments:: Alcohol Use Standard Drinks/Week Comments Not Currently 0 (1 standard drink = 0.6 oz pur e alcohol) [facility] Utilities Answer Date Recorded In the past [...] Upcoming Encounters Date Type Department Care Team ([facility] st Contact Info) Description 08/01/2024 2:00 PM EDT Follow-Up [facility] Nephrology [address] [place] [address] [address] [place] [address] John Hendricks MD [address] [address] 09/18/2024 11:00 AM EDT Follow-Up [facility] [address] [place] [address] MarvinJeffery PA [address] [place] [address] 01/08/2025 10:00 AM EDT Follow-Up [address] Cardiology [address] [place] [address] Mabel Onofre NP [address] [place] [address] documented as of this encounter Procedures * Due to [place] state law, this organization might not be sharing negative HIV tests. Procedure Name Priority Date/Time Associated Diagnosis Comments N-TERMINAL PROBRAIN NATRIURETIC PEPTIDE Routine 07/13/2024 10:20 AM EST Heart failure, unspecified HF chronicity, unspecified heart failure type (HCC) TSH Routine 07/13/2024 10:20 AM EST Hyperlipidemia, unspecified hyperlipidemia type Myxedema heart disease T4, FREE Routine 07/13/2024 10:20 AM EST Hyperlipidemia, unspecified hyperlipidemia type Myxedema heart disease LIPID PANEL Routine 07/13/2024 10:20 AM EST Hyperlipidemia, unspecified hyperlipidemia type Myxedema heart disease COMPREHENSIVE METABOLIC PANEL Routine 07/13/2024 10:20 AM EST Hyperlipidemia, unspecified hyperlipidemia type Myxedema heart disease documented in this encounter Results * Due to [place] state law, this organization might not be sharing negative HIV tests. * T4, Free (07/13/2024 10:20 AM EST) Free T4 1.24 0.80 - 1.80 ng/dL 07/13/2024 11:15 AM EST [facility] Comment: Females: (ng/dL) First Trimester ? [...] 07/13/2024 10:29 AM EST us Magy Sawyer FOREIGN EXCHANGE TRADER LAB BLOOD ORDERABLES Final Res ult [facility] [address] [place] [address], [place] [phone] * TSH (07/13/2024 10:20 AM EST) TSH 3.750 0.270 - 4.200 uIU/mL 07/13/2024 11:15 AM EST [facility] Comment: Females: 1st trimester ? 0.150-4.000 ??IU/mL 2nd trimester ?? 0.310-4.170 ?IU/mL 3rd trimester ?0.380-4.150 ?IU/mL Blood Structure of peripheral vein / Unknown Venipuncture / Unknown 07/13/2024 10:20 AM EST 07/13/2024 10:29 AM EST us Magy Sawyer FOREIGN EXCHANGE TRADER LAB BLOOD ORDERABLES Final Res ult [facility] [address] [place] [address], [place] [phone] * (ABNORMAL) Comprehensive Metabolic Panel (07/13/2024 10:20 AM EST) NA 142 136 - 145 mmol/L 07/13/2024 11:15 AM EST [facility] K 4.6 3.5 - 5.1 mmol/L 07/13/2024 11:15 AM EST [facility] Cl 104 98 - 109 mmol/L 07/13/2024 11:15 AM EST [facility] CO2 28 22 - 32 mmol/L 07/13/2024 11:15 AM EST [facility] Anion Gap 15 >=0 07/13/2024 11:15 AM EST [facility] Glucose 94 60 - 99 mg/dL 07/13/2024 11:15 AM EST [facility] Creatinine 1.40(H) 0.50 - 1.12 mg/dL 07/13/2024 11:15 AM EST [facility] Calcium 9.4 8.4 - 10.4 mg/dL 07/13/2024 11:15 AM EST [facility] Total Protein 6.4(L) 6.6 - 8.7 g/dL 07/13/2024 11:15 AM EST [facility] Albumin 3.7 3.5 - 5.0 g/dL 07/13/2024 11:15 AM EST [facility] Bilirubin, Total 0.4 0.2 - 1.2 mg/dL 07/13/2024 11:15 AM EST [facility] Alkaline Phosphatase 113 40 - 129 U/L 07/13/2024 11:15 AM EST [facility] AST 25 0 - 33 U/L 07/13/2024 11:15 AM EST [facility] ALT 33 <=33 U/L 07/13/2024 11:15 AM EST [facility] BUN 20 8 - 23 mg/dL 07/13/2024 11:15 AM EST [facility] eGFR 40(L) >=60 mL/min/1. 73m2 07/13/2024 11:15 AM EST [facility] Comment:The estimated glomer ular filtration [...] - 4.2 g/dL 07/13/2024 11:15 AM EST [facility] A/G Ratio 1.4(L) 1.5 - 3.0 07/13/2024 11:15 AM EST [facility] Blood Structure of peripheral vein / Unknown Venipuncture / Unknown 07/13/2024 10:20 AM EST 07/13/2024 10:29 AM EST us Magy Sawyer NP LAB BLOOD ORDERABLES Final Res ult [facility] [address] [facility] [address] [place] [address], * Lipid panel (07/13/2024 10:20 AM EST) Cholesterol 259 mg/dL 07/13/2024 11:15 AM EST [facility] Comment: DESIRABLE: <200 mg/dL BORDERLINE HIGH: 200-239 mg/dL HIGH: >239 mg/dL Triglycerides 123 mg/dL 07/13/2024 11:15 AM EST [facility] Comment: NORMAL: <150 mg/dL BORDERLINE HIGH: 150-199 mg/dL HIGH: 200-499 mg/dL VERY HIGH >499 mg/dL Cholesterol, HDL 72 mg/dL 07/13/19 11:15 AM EST [facility] Comment: DESIRABLE: >60 mg/dL BORDERLINE: 40-59 mg/dL UNDESIRABLE: <40 mg/dL LDL Cholesterol 162 mg/dL 11:15 AM EST [facility] Comment: OPTIMAL: <100 mg/dL NEAR OPTIMAL: <130 mg/dL BORDERLINE HIGH: 130-159 mg/dL HIGH: 160-189 mg/dL VERY HIGH: >189 mg/dL VLDL 24.6 mg/dL 07/13/2024 11:15 AM EST [facility] Cholesterol/HDL Ratio 3.6 07/13/2024 11:15 AM EST [facility] Blood Structure of peripheral vein / Unknown Venipuncture / Unknown 07/13/2024 10:20 AM EST 07/13/2024 10:29 AM EST us Magy Sawyer NP LAB BLOOD ORDERABLES Final Res ult Performing Organization Address City/State/[facility] Co de Phone Number [facility] [address] [place] [phone], * (ABNORMAL) N-terminal ProBrain Natriuretic Peptide - [facility] MEM/ANITHAV/Nicole Only (07/13/2024 10:20 AM EST) Pro-B-Type Natriuretic Peptide 957(H) <=900 pg/mL 07/13/2024 11:02 AM EST [facility] Comment: RULE IN CHF >/= [...] 07/13/2024 10:29 AM EST us Magy Sawyer FOREIGN EXCHANGE TRADER LAB BLOOD ORDERABLES Final Res ult [facility] [address] [facility] [address] [place] [address], [place] [phone] documented in this encounter Visit Diagnoses Diagnosis Heart failure, unspecified HF chronicity, unspecified heart failure type (HCC)- Primary Hyperlipidemia, unspecified hyperlipidemia type Myxedema heart disease Unspecified hypothyroidism documented in this encounter Care Teams Section Beamer Relationship Specialty Start Date End Date Bijal Fox NP [address] [facility] [address] [place] [address] PCP - General Family Medicine 05/30/24 documented as of this encounter
--- OUTSIDE RECORDS SUMMARY | 2024-07-31 15:46 | XMS_ITS | Encounter Summary ---
Author Organization [facility] Address [address] [place] [address] Care Team Providers Care Front End Java Developer Name Role Phone Bijal Fox SECURITY TESTER Primary Care Provider [phone] Reason for Referral * Rehabilitation (Routine) - Authorized Specialty Diagnoses / Procedures Referred By Contact Referred To Contact Physical Medicine and Rehabilitation / Orthopaedic Surgery Diagnoses Primary osteoarthritis of left shoulder Jeffery Wong PA [address] [place] [address] Phone: tel:[phone] fax:[phone] Sonny Reed MD [address] [place] [address] Phone: tel:[phone] fax:[phone] Referral ID Status Reason Start Date Expiration Date Visits Requested Visits Authorized [id number] Authorized Specialty Services Required 07/22/2024 01/21/2026 6 6 Reason for Visit * Reason Comments Pain * Consultation (Routine) - Authorized Specialty Diagnoses / Procedures Referred By Contac t Referred To Contact Orthopaedic Surgery Diagnoses Osteoarthritis of left shoulder Bijal Fox NP [address] [facility] [address] [place] [address] Phone: tel: fax: Jeffery Wong PA [address] [place] [phone] Phone: tel: fax: Referral ID Status Reason Start Date Expiration Date V isits Requested Visits Authorized [id number] Authorized 07/18/2024 07/18/2025 6 6 Encounter Details Date Type Department Care Team (Latest Contact Info) Description 07/22/2024 11:15 AM EST Office Visit [facility] [address] [place] [address] Marvin, AYAD Gil [address] [place] [phone] Primary osteoarthritis of left shoulder (Primary Dx); Rotator cuff tear arthropathy of left shoulder Social History Tobacco Use Types Packs/Day Years [...] Taken Comments Blood Pressure - - Pulse - - Temperature - - Respiratory Rate - - Oxygen Saturation - - Inhaled Oxygen Concentration - - Weight 115.2 kg (254 lb) 07/22/2024 11:10 AM EST Height - - Body Mass Index 41.02 07/01/2024 3:13 PM EST documented in this encounter Progress Notes * AYAD Junior - 07/22/2024 11:21 AM EST CC: Left shoulder pain x years HPI: The patient is a 74 y.o. female who presents to the office c/o left shoulder pain for years. She denies injury or trauma to the shoulder. She is having pain with overhead motions, reaching and sleeping on the affected side. She does report bilateral hand numbness that she attributes to her neck. She has tried treatment so far with NSAIDS, ice, Tylenol, lyrica, oxycodone, robaxin and rest. She has had a shoulder arthroscopy in 2021 in [place]. She has had an ACFD C4-5. She also reports laminectomies and fusions of her lumbar spine. ROS: Negative for HEENT, Cardiovascular, Respiratory, Abdominal or symptomatology PE: Examination of the left shoulder demonstrates: Range of motion: Forward flexion: 90 External rotation 60 Internal rotation L5 Strength testing: Abduction: 5/5 External Rotation 5/5 Internal Rotation 5/5 Specialized testing: Hawkin's test: POS Impingement sign POS Speed's test POS Burt's test NEG Empty can test POS Yergasons test NEG The patient does have tenderness over the AC joint with crossbody adduction.There is no atrophy of the shoulder girdle musculature.The supraspinatus and infraspinatus fossa are full and there is no asymmetry.Scapula has normal range of motion along the thorax with no evidence of winging. There is no abnormal tilt to the scapula, and no pain to palpation along the medial border of the scapula at the insertion of the trapezius and rhomboid musculature. There is no tenderness to palpation over thelateral border of the scapula.There is full range of motion, strength, and sensation intact in the h and, wrist, and elbow. The skin is otherwise clean, dry, and intact. There is less than 2 second capillary refill. XRAY: Three views of the left shoulder taken at [facility] on 07/22/24 include AP, axillary, Y-view reveal no acute fracture or dislocation seen. The joint spaces are decreased. Left shoulder MRI 04/07/22: 1. Moderate supraspinatus tendinopathy with a full-thickness, partial width, mildly retracted tear.No muscle atrophy. 2. Moderate infraspinatus tendinopathy with a low-grade interstitial partial tear. 3. Complete tear of the long head biceps tendon with retraction distal to the bicipital groove. 4. [id number] glenohumeral joint osteoarthritis with a small to moderate joint effusion and synovitis. 5. Moderate acromioclavicular joint osteoarthritis. 6. Mild subcoracoid bursitis. ASSESSMENT: 1). Left shoulder osteoarthritis, 2). Left shoulder rotator cuff tear, 3). Left shoulder biceps tendon tear PLAN: The diagnosis and radiographic findings were reviewed in detail with the patient. We discussed treatment options today. She will begin icing the area 3-4 times daily for 20 minutes at a time. She will continue with anti-inflammatory medication or Tylenol as needed for pain. We discussed a left show to her intra- articular steroid injection performed under fluoroscopy. She will follow-up with injection pending insurance approval. She was offered surgical consult but deferred today. She willfollow up in 2-3 weeks time for re-evaluation if symptoms persist. She is comfortable with this plan. All their questions were answered to their voiced satisfaction. She will call if the patient has any additional questions or concerns. documented in this encounter Plan of Treatment Upcoming Encounters Date Type Department Care Team (Late st Contact Info) Description 08/01/2024 2:00 PM EDT Follow-Up [facility] Nephrology [address] [address] John Hendricks MD [address] [place] [phone] 09/18/2024 11:00 AM EDT Follow-Up [facility] [address] [place] [address] MarvinJeffery PA [address] [place] [address] 01/08/2025 10:00 AM EDT Follow-Up [address] Cardiology 100 [facility] [address] [place] [address] Mabel Onofre NP 100 [facility] [address] [place] [address] Scheduled Referrals Name Type Priority Associated Diagnoses Orde r Schedule Ambulatory referral to Physicial Medicine Rehab Outpatient Referral Routine Primary osteoarthritis of left shoulder Expected: 07/22/2024, Expires: 01/22/2025 documented as of this encounter Visit Diagnoses Diagnosis Primary osteoarthritis of left shoulder- Primary Rotator cuff tear arthropathy of left shoulder documented in this encounter Care Teams Front End Java Developer Relationship Specialty Start Date End Date Bijal Fox NP [address] [place] [address] [place] [address] PCP - General Family Medicine 05/30/24 documented as of this encounter
--- OUTSIDE RECORDS SUMMARY | 2024-07-31 15:46 | XMS_ITS | Encounter Summary ---
Author Organization [facility] Address [address] [place] [address] Care Team Providers Care Copyright Manager Name Role Phone Bijal Fox NP Primary Care Provider [phone] Reason for Referral * Diagnostic Imaging (Routine) - Authorized Specialty Diagnoses / Procedures Referred By Contac t Referred To Contact Diagnoses CKD stage 3a, GFR 45-59 ml/min (HCC) Chronic heart failure with preserved ejection fraction (HCC) Procedures US Kidney and Bladder Complete John Hendricks MD [address] [place] [address] Phone: tel: fax: Referral ID Status Reason Start Date Expiration Date V isits Requested Visits Authorized [id number] Authorized 07/01/2024 12/31/2025 1 1 Encounter Details Date Type Department Care Team (Late st Contact Info) Description 07/01/2024 3:15 PM EST Office Visit [facility] Nephrology [address] [place] [address], [address] [place] [address] John Hendricks MD [address] [place] [id number] Hyperkalemia (Primary Dx); CKD stage 3a, GFR 45-59 ml/min (HCC); Chronic heart failure with preserved ejection fraction (HCC); Primary hypertension Social History Tobacco Use Types Packs/Day Years Used Date Smoking Tobacco: Former Smokeless Tobacco: Never Comments:: Alcohol Use Standard Drinks/Week Comments Not Currently 0 (1 standard drink = 0.6 oz pur e alcohol) [facility] Utilities Answer Date Recorded In [...] Hendricks MD - 07/01/2024 3:25 PM EST [facility] Patient Name: Genie Vora Female Date of : 1950, 73 y.o. Date: 07/01/2024 Assessment & Plan 1. Hyperkalemia 2. CKD stage 3a, GFR 45-59 ml/min ([facility]) 3. Chronic heart failure with preserved [...] 2011-07-29 Past Surgical History: Procedure Laterality Date AL ARTHROCENTESIS ASPIR&/INJ MAJOR JT/BURSA W/O US Right History of Arthrocentesis Injection Of Hip Joint Right hip steroid injection AL ARTHROCENTESIS ASPIR&/INJ MAJOR JT/BURSA W/O US Right History of Arthrocentesis Injection Of Hip Joint Right RIGHT HIP INJECTION WITH STEROID AL ARTHROCENTESIS ASPIR&/INJ MAJOR JT/BURSA W/O US Right History of Arthrocentesis Injection Of Hip Joint Right RIGHT HIP INJECTION AL ARTHROCENTESIS ASPIR&/INJ MAJOR JT/BURSA W/O US Right History of Arthrocentesis Injection Of Hip Joint Right RIGHT HIP CORTISONE INJECTION AL KNEE SCOPE,DIAGNOSTIC N/A History of Arthroscopy Knee AL ALVES W/O FACETEC FORAMOT/DSKC 05/23 VRT SEG, CERVICAL N/A History of Laminectomy Lumbar AL LAP,CHOLECYSTECTOMY N/A History of Cholecystectomy Laparoscopic PROCEDURE [...] visit. Allergies Allergen Reactions Prevacid [Lansoprazole] Indigestion Zwlinak-Vaf-Grj Reductase Inhibitors Muscle Pain Per pt Objective [...] CONVERSION 09/01/2014 12:22 PM Dysphagia. Edited by: [id number] - 1232 [id number] - 0828 YASMINE CLINICAL HISTORY, CONVERSION 08/02/2013 04:39 PM Left wrist dequervain's and left carpal tunnel syndrome. Left wrist mass. Edited by: [id number] - 1747 APRIL CLINICAL HISTORY, CONVERSION 04/08/2010 03:39 PM Dyspepsia. Suspected gastroesophageal reflux disease. Dictated by: LACY CARBAJAL Edited by: [id number] - 2022 [place] [address] CLINICAL HISTORY, CONVERSION 09/21/2006 02:09 PM Cholelithiasis. Edited by: [id number] - 1436 [facility] CLINICAL HISTORY, CONVERSION 04/26/2001 11:41 AM 50 year old female with a preop diagnosis of stress incontinence, urethral hypermobility, a rectocele and prolapsed cervix. The patient underwent abdominal hysterectomy and repair of rectocele. Edited by: [id number] - 1657 CLAUDIO CLINICAL HISTORY, CONVERSION 07/19/1999 12:15 PM Endometrial biopsy Edited by: [id number] - 0810 OWUSUC ALBUMIN 4.0 06/17/2024 07:03 [...] Info) Description 08/01/2024 2:00 PM EDT Follow-Up [facility] Nephrology [address] [place] [address] [address] [place] [address] John Hendricks MD [address] [address] 09/18/2024 11:00 AM EDT Follow-Up [facility] [address] [place] [address] MarvinJeffery PA [address] [place] [address] 01/08/2025 10:00 AM EDT Follow-Up [address] Cardiology [address] [place] [address] [address] [place] [address] Mabel Onofre NP [address] [place] [address] [address] [place] [address] Scheduled Orders Name Type Priority Associated Diagnoses Orde r Schedule US Kidney and Bladder Complete Imaging Routine CKD stage 3a, GFR 45-59 ml/min (HCC) Chronic heart failure with preserved ejection fraction (HCC) Expected: 07/01/2024, Expires: 08/29/2025 documented as of this encounter Procedures * Due to [place] state law, this organization might not be [...] this encounter Results * Due to [place] state law, this organization might not be sharing negative HIV tests. * (ABNORMAL) Microscopic Urinalysis Only (07/02/2024 9:17 AM EST) RBC, Urine 5-10(A) None Seen, 0-2 /HPF 07/02/2024 10:07 AM EST [facility] WBC, Urine 0-2 None Seen, 0-2 /HPF 07/02/2024 10:07 AM EST [facility] Squamous Epithelial Cells, Urine 0-2 /HPF 07/02/2024 10:07 AM EST [facility] Bacteria, Urine Occasional (A) None Seen /HPF 07/02/2024 10:07 AM EST [facility] Urine Urine specimen collection, clean catch / Unknown Non-Blood Collection / Unknown 07/02/2024 9:17 AM EST 07/02/2024 9:36 AM EST us John Hendricks MD LAB URINE ORDERABLES Final Resul t [facility] [address] [place] [address] [address] [place] [address], [place] [phone] * (ABNORMAL) SPEP (Protein Electrophoresis w/Reflex to [...] AM EST 07/02/2024 9:29 AM EST Narrative [facility] - 07/04/2024 8:59 AM EST [facility] Received Date: us John Hendricks MD LAB BLOOD ORDERABLES Final Resul t HILARY DAVID [address] [facility] 3rd Floor, [place] [address], [place] [phone] * Magnesium (07/02/2024 9:17 AM EST) MG 1.9 1.5 - 2.5 mg/dL 07/02/2024 10:01 AM EST [facility] Blood Structure of peripheral vein / Unknown Venipuncture / Unknown 07/02/2024 9:17 AM EST 07/02/2024 9:29 AM EST us John Hendricks MD LAB BLOOD ORDERABLES Final Resul t Performing Organization Address [facility] de Phone Number [facility] [address] [address], [place] [phone] * Microalbumin, Random Urine with Creatinine (07/02/2024 9:17 AM EST) Creatinine, Urine 55 mg/dL 07/02/2024 2:41 PM EST [facility] Microalbumin, Urine 4 <=20 mg/L 07/02/2024 2:41 PM EST [facility] Microalb/Creat Ratio, Random Urine 7.3 1.3 - 30.0 mg/g 07/02/2024 2:41 PM EST [facility] Urine Voided urine specimen / Unknown Non-Blood Collection / Unknown 07/02/2024 9:17 AM EST 07/02/2024 9:36 AM EST us John Hendricks MD LAB URINE ORDERABLES Final Resul t Performing Organization Address [facility] Co de Phone Number [facility] [address] [place] [address], [place] [phone] * Protein, Random Urine with Creatinine (07/02/2024 9:17 AM EST) Protein, Urine 6 mg/dL 07/02/2024 2:41 PM EST [facility] Creatinine, Urine 55 mg/dL 07/02/2024 2:41 PM EST [facility] Protein/Creati nine Ratio 109 <200 mg/gmCr 07/02/2024 2:41 PM EST [facility] Urine Voided urine specimen / Unknown Non-Blood Collection / Unknown 07/02/2024 9:17 AM EST 07/02/2024 9:36 AM EST John Hendricks MD LAB URINE ORDERABLES Final Resul t [facility] [address] [place] [address] [address] [place] [address], * (ABNORMAL) Urinalysis W/Reflex to Microscopic (No Culture) (07/02/2024 9:17 AM EST) Color, Urine Yellow Yellow 07/02/2024 9:44 AM EST [facility] Clarity, Urine Clear Clear 07/02/2024 9:44 AM EST [facility] Specific [place], Urine 1.015 1.005 - 1.030 07/02/2024 9:44 AM EST [facility] pH, Urine 5.5 5.0 - 8.0 07/02/2024 9:44 AM EST [facility] Protein, Urine Negative Negative mg/dL 07/02/2024 9:44 AM EST [facility] Glucose, Urine Negative Negative mg/dL 07/02/2024 9:44 AM EST [facility] Ketones, Urine Negative Negative mg/dL 07/02/2024 9:44 AM EST [facility] Bilirubin, Urine Negative Negative 07/02/2024 9:44 AM EST [facility] Blood, Urine Small(A) Negative 07/02/2024 9:44 AM EST [facility] Nitrite, Urine Negative Negative 07/02/2024 9:44 AM EST [facility] Urobilinogen, Urine 0.2 0.2 - 1.0 E.U./dL 07/02/2024 9:44 AM EST [facility] Leukocyte Esterase, Urine Small(A) Negative 07/02/2024 9:44 AM EST [facility] Urine Urine specimen collection, clean catch / Unknown Non-Blood Collection / Unknown 07/02/2024 9:17 AM EST 07/02/2024 9:36 AM EST us John Hendricks MD LAB URINE ORDERABLES Final Resul t Performing Organization Address City/[facility]/ZIP Co de Phone Number [facility] [address] [address], [place] [phone] * (ABNORMAL) Vitamin D, 25-Hydroxy, Total, Immunoassay (07/02/2024 9:17 AM EST) Vitamin D 25-OH 22.50(L) 30.00 - 80.00 ng/mL 07/02/2024 11:24 AM EST [facility] Blood Structure of peripheral vein / Unknown Venipuncture / Unknown 07/02/2024 9:17 AM EST 07/02/2024 9:29 AM EST us John Hendricks MD LAB BLOOD ORDERABLES Final Resul t Performing Organization Address City/[facility]/ZIP Co de Phone Number [facility] [address] [address], [place] [phone] * (ABNORMAL) Renal Function Panel (07/02/2024 9:17 AM EST) NA 138 136 - 145 mmol/L 07/02/2024 10:02 AM EST [facility] K 4.4 3.5 - 5.1 mmol/L 07/02/2024 10:02 AM EST [facility] Comment:ALL DELTAS REVIEWED Cl 101 98 - 109 mmol/L 07/02/2024 10:02 AM EST [facility] CO2 26 22 - 32 mmol/L 07/02/2024 10:02 AM EST [facility] Anion Gap 15 >=0 07/02/2024 10:02 AM EST [facility] Glucose 115(H) 60 - 99 mg/dL 07/02/2024 10:02 AM EST [facility] BUN 37(H) 8 - 23 mg/dL 07/02/2024 10:02 AM EST [facility] Creatinine 1.47(H) 0.50 - 1.12 mg/dL 07/02/2024 10:02 AM EST [facility] Calcium 8.8 8.4 - 10.4 mg/dL 07/02/2024 10:02 AM EST [facility] Phosphorus 3.6 2.5 - 4.5 mg/dL 07/02/2024 10:02 AM EST [facility] Albumin 3.8 3.5 - 5.0 g/dL 07/02/2024 10:02 AM EST [facility] eGFR 38(L) >=60 mL/min/1. 73m2 07/02/2024 10:02 AM EST [facility] Comment:The estimated glomer ular filtration [...] MD LAB BLOOD ORDERABLES Final Resul t [facility] [address] [facility] [address] [place] [address], * (ABNORMAL) PTH, Intact (without Calcium) (07/02/2024 9:17 AM EST) Parathyroid Hormone, Intact 226.0(H) 14.5 - 87.1 pg/mL 07/02/2024 11:19 AM EST [facility] Comment: This test was performed [...] ORDERABLES Final Resul t Performing Organization Address [facility]/ZIP Co de Phone Number [facility] [address] [address], [place] [phone] * Hemoglobin and Hematocrit (07/02/2024 9:17 AM EST) Hemoglobin 12.0 11.7 - 15.5 g/dL 07/02/2024 9:38 AM EST [facility] Hematocrit 37.1 35.7 - 45.8 % 07/02/2024 9:38 AM EST [facility] Blood Structure of peripheral vein / Unknown Venipuncture / Unknown 07/02/2024 9:17 AM EST 07/02/2024 9:29 AM EST us John Hendricks MD LAB BLOOD ORDERABLES Final Resul t Performing Organization Address City/[facility]/ZIP Co de Phone Number [facility] [address] [address], [place] [phone] documented in this encounter Visit Diagnoses Diagnosis Hyperkalemia- Primary Hyperpotassemia CKD stage 3a, GFR 45-59 ml/min (HCC) Chronic heart failure with preserved ejection fraction (HCC) Primary hypertension Unspecified essential hypertension documented in this encounter Care Teams Copyright Manager Relationship Specialty Start Date End Date Bijal Fox NP [address] [place] [address] [address] [place] [address] PCP - General Family Medicine 05/30/24 documented as of this encounter
--- OUTSIDE RECORDS SUMMARY | 2024-07-31 15:46 | XMS_ITS | Encounter Summary ---
Author Organization [facility] Address [address] [place] [address] Care Team Providers Care Director Of Testing Name Role Phone Brandyn Pagan MD Primary Care Provider Unavaila Radha Fink NP Unavailable Unavailable Unknown Pcp, Non [facility] Primary Care Provider Unava ilable Encounter Details Date Type Department Care Team (Late st Contact Info) Description 12/05/2016 Orders Only [facility] [address] [place] [address] Brandyn Pagan MD Social History Tobacco Use [...] Cervicalgia documented in this encounter Care Teams Director Of Testing Relationship Specialty Start Date End Date Brandyn Pagan MD PCP - General Internal Medicine 08/07/15 02/02/17 Radha Spangler NP PCP - Backup PCP Internal Medicine 01/11/16 02/02/17 Unknown Pcp, Non [facility] PCP - General 02/03/17 documented as of this encounter
--- OUTSIDE RECORDS SUMMARY | 2024-07-31 15:46 | XMS_ITS | Encounter Summary ---
Author Organization [facility] Address [address] [place] [address] Care Team Providers Care Basket Hand Weaver Name Role Phone Bijal Fox DINING HOST Primary Care Provider [phone] Encounter Details Date Type Department Care Team (Late st Contact Info) Description 07/01/2024 Orders Only [facility] [address] [facility] Cardiology [address] [place] [address] [address] [place] [address] Mabel Onofre NP 100 [facility] [address] [place] [address] Social History Tobacco Use Types Packs/Day Years [...] Info) Description 08/01/2024 2:00 PM EDT Follow-Up [facility] Nephrology [address] [place] [address] [address] [place] [address] John Hendricks MD [address] [address] 09/18/2024 11:00 AM EDT Follow-Up [facility] [address] [place] [address] MarvinJeffery PA [address] [place] [address] 01/08/2025 10:00 AM EDT Follow-Up [address] Cardiology [address] [place] [address] [address] [place] [address] Mabel Onofre NP [address] [place] [address] [address] [place] [address] documented as of this encounter Visit Diagnoses Not on filedocumented in this encounter Care Teams Basket Hand Weaver Relationship Specialty Start Date End Date Bijal Fox NP [address] [place] [address] [address] [place] [address] PCP - General Family Medicine 05/30/24 documented as of this encounter
--- OUTSIDE RECORDS SUMMARY | 2024-07-31 15:46 | XMS_ITS | Encounter Summary ---
Author Organization [facility] Address [address] [place] [address] Care Team Providers Care Bit Sharpener Name Role Phone Brandyn Pagan MD Primary Care Provider Radha Cuevas NP Unavailable Unavailable Unknown Pcp, Non [facility] Primary Care Provider Unava ilable Encounter Details Date Type Department Care Team (Late st Contact Info) Description 11/13/2015 Orders Only [facility] [address] [place] [address] Brandyn Pagan MD Social History Tobacco Use [...] this encounter Procedures * Due to [place] [employer] law, this organization might not be sharing [...] this encounter Results * Due to [place] [employer] law, this organization might not be sharing negative HIV tests. * (ABNORMAL) URINALYSIS, DIP ONLY ( SITE STAT ONLY) (11/13/2015 1:00 PM EDT) COLOR (URINE) YELLOW [facility] (CLIA# [id number]) APPEARANCE (URINE) CLEAR [facility] (CLIA# [id number]) SPECIFIC GRAVITY 1.015 1.001 - 1.035 [facility] (CLIA# [id number]) PH (URINE) 6.0 5.0 - 8.0 [facility] (CLIA# [id number]) PROTEIN (URINE) NEGATIVE Neg [facility] (CLIA# [id number]) GLUCOSE (URINE) NEGATIVE Neg [facility] (CLIA# [id number]) Ketones (Urine) NEGATIVE Neg [facility] (CLIA# [id number]) BILIRUBIN (URINE) NEGATIVE Neg [facility] (CLIA# [id number]) BLOOD (URINE) NEGATIVE Neg [facility] (CLIA# [id number]) Leukocyte esterase (Urine) 1+(A) [facility] (CLIA# [id number]) NITRITE (URINE) NEGATIVE Neg [facility] (CLIA# [id number]) Urine specimen obtained by clean catch procedure (specimen) 11/13/2015 1:00 PM EDT Narrative [facility] (CLIA# [id number]) - 11/13/2015 1:00 PM EDT Micro and culture already ordered per provider. us Brandyn Pagan MD LAB SAME DAY RESULT Final Resul t [facility] (CLIA# [id number]) [address] [place] [address] * CREATINE KINASE (CK), SERUM (11/13/2015 12:24 PM EDT) CPK 143 29 - 143 U/L [facility] Comment:{CREATINE KINASE, TO KENZIE {[id number]) 11/13/2015 12:2 4 PM EDT 11/13/2015 10:19 PM EDT Narrative Resulting Agency Comment [id number] us Brandyn Pagan MD LAB SAME DAY RESULT Final Resul t Performing Organization Address [facility] de Phone Number [facility] [address] [place] [address] * ALANINE AMINOTRANSFERASE (ALT), SERUM (11/13/2015 12:24 PM EDT) ALT (SGPT) 29 6 - 29 U/L [facility] Comment:{ALT {[id number]) 11/13/2015 12:2 4 PM EDT 11/13/2015 10:19 PM EDT Narrative Resulting Agency Comment [id number] Brandyn Pagan MD LAB SAME DAY RESULT Final Resul t Performing Organization Address [facility] de Phone Number [facility] [address] [place] [address] * C-REACTIVE PROTEIN (CRP) - INFLAMMATION (11/13/2015 12:24 PM EDT) C reactive protein 0.28 <0.80 mg/dL [facility] Comment: {C-REACTIVE PROTEIN {[id number]) Please be advised that patients taking Carboxypenicillins may exhibit falsely decreased C-Reactive Protein levels due to an analytical interference in this assay. 11/13/2015 12:2 4 PM EDT 11/13/2015 10:19 PM EDT Narrative Resulting Agency Comment [id number] Brandyn Pagan MD LABORATORY Final Result Performing Organization Address [facility] de Phone Number [facility] [address] [place] [address] * ERYTHROCYTE SEDIMENTATION RATE (ESR), WESTERGREN (11/13/2015 12:24 PM EDT) Sedimentation Rate [place] (ESR) 6 < OR = 30 mm/h [facility] Comment:{SED RATE BY MODIFBILLIE D JAZMINEREN {[id number]) 11/13/2015 12:2 4 PM EDT 11/13/2015 10:19 PM EDT Narrative Resulting Agency Comment [id number] us Brandyn Pagan MD LAB SAME DAY RESULT Final Resul t [facility] [address] [place] [address] * (ABNORMAL) CULTURE, URINE, ROUTINE (11/13/2015 12:24 PM EDT) Bacteria culture (Urine) SEE NOTE(A) [facility] Comment: {CULTURE, URINE, ROUTINE {[id number]) ??CULTURE, URINE, ROUTINE ??MICRO NUMBER: ?[id number] ??TEST STATUS: ? FINAL ??SPECIMEN SOURCE: ?? [...] 10:19 PM EDT Narrative Resulting Agency Comment [id number] us Brandyn Pagan MD LABORATORY Final Result [facility] [address] [place] [address] * (ABNORMAL) URINALYSIS, MICROSCOPIC (11/13/2015 12:24 PM EDT) WBC (Urine) 10-20(A) < OR = 5 /HPF [facility] Comment:{WBC {[id number]) RBC (Urine Sed) NONE SEEN < OR = 2 /HPF [facility] Comment:{RBC {[id number]) Epithelial cells.squamous (Urine sed) 0-5 < OR = 5 /HPF [facility] Comment:{SQUAMOUS EPITHELIAL CELLS {[id number]) Bacteria (Urine) NONE SEEN NONE SEEN /HPF [facility] Comment:{BACTERIA {[id number]) Hyaline casts (Urine sed) NONE SEEN NONE SEEN /LPF [facility] Comment:{HYALINE CAST {[id number]) 11/13/2015 12:2 4 PM EDT 11/13/2015 10:19 PM EDT Narrative Resulting Agency Comment [id number] us Brandyn Pagan MD LAB SAME DAY RESULT Final Resul t [facility] [address] [place] [address] documented in this encounter Visit Diagnoses Diagnosis Urinary tract infection, site unspecified Muscle ache Mylagia and myositis, unspecified Routine history and physical examination of adult Routine general medical examination at a health care facility documented in this encounter Care Teams Bit Sharpener Relationship Specialty Start Date End Date Brandyn Pagan MD PCP - General Internal Medicine 08/07/15 02/02/17 Radha Spangler NP PCP - Backup PCP Internal Medicine 01/11/16 02/02/17 Unknown Pcp, Non [facility] PCP - General 02/03/17 documented as of this encounter
--- OUTSIDE RECORDS SUMMARY | 2024-07-31 15:46 | XMS_ITS | Encounter Summary ---
Author Organization [facility] Address [address] [place] [address] Care Team Providers Care Appraiser Art Name Role Phone Brandyn Pgaan MD Primary Care Provider Radha Cuevas NP Unavailable Unavailable Unknown Pcp, Non Rmg Primary Care Provider Unava ilable Encounter Details Date Type Department Care Team (Late st Contact Info) Description 10/06/2015 Orders Only [facility] [address] [place] [address] Brandyn Pagan MD Social History Tobacco Use [...] proper risk profile. I cannot run the [place] [employer] risk calculator. The decision related [...] of this encounter Procedures * Due to [place] [employer] law, this organization might not be sharing [...] in this encounter Results * Due to [place] [employer] law, this organization might not be sharing negative HIV tests. * (ABNORMAL) URINALYSIS, DIP ONLY ( SITE STAT ONLY) (10/06/2015 11:19 AM EDT) COLOR (URINE) YELLOW [facility] (CLIA# [id number]) APPEARANCE (URINE) CLOUDY [facility] (CLIA# [id number]) SPECIFIC GRAVITY 1.020 1.001 - 1.035 [facility] (CLIA# [id number]) PH (URINE) 5.0 5.0 - 8.0 [facility] (CLIA# [id number]) PROTEIN (URINE) TRACE(A) Neg [facility] (CLIA# [id number]) GLUCOSE (URINE) NEGATIVE Neg [facility] (CLIA# [id number]) Ketones (Urine) NEGATIVE Neg [facility] (CLIA# [id number]) BILIRUBIN (URINE) NEGATIVE Neg [facility] (CLIA# [id number]) BLOOD (URINE) NEGATIVE Neg [facility] (CLIA# [id number]) Leukocyte esterase (Urine) 1+(A) [facility] (CLIA# [id number]) NITRITE (URINE) POSITIVE(A) Neg [facility] (CLIA# [id number]) Urine specimen obtained by clean catch procedure (specimen) 10/06/2015 11:19 AM EDT Narrative [facility] (CLIA# [id number]) - 10/06/2015 11:19 AM EDT Micro and culture already ordered per provider. us Brandyn Pagan MD LAB SAME DAY RESULT Final Resul t [facility] (CLIA# [id number]) [address] [place] [address] * (ABNORMAL) CULTURE, URINE, ROUTINE (10/06/2015 10:11 AM EDT) Pathologist [facility] Bacteria culture (Urine) SEE NOTE(A) [facility] Comment: {CULTURE, URINE, ROUTINE {[id number]) ??CULTURE, URINE, ROUTINE ??MICRO NUMBER: ?[id number] ??TEST STATUS: ? FINAL ??SPECIMEN SOURCE: ?? [...] 6:19 PM EDT Narrative Resulting Agency Comment [id number] Brandyn Pagan MD LABORATORY Final Result Performing Organization Address City/State/[facility] Co de Phone Number [facility] [address] [place] [address] * (ABNORMAL) URINALYSIS, MICROSCOPIC (10/06/2015 10:11 AM EDT) WBC (Urine) 20-40(A) < OR = 5 /HPF [facility] Comment:{WBC {[id number]) RBC (Urine Sed) 0-2 < OR = 2 /HPF [facility] Comment:{RBC {[id number]) Epithelial cells.squamous (Urine sed) NONE SEEN < OR = 5 /HPF [facility] Comment:{SQUAMOUS EPITHELIAL CELLS {[id number]) Bacteria (Urine) MANY(A) NONE SEEN /HPF [facility] Comment:{BACTERIA {[id number]) Hyaline casts (Urine sed) NONE SEEN NONE SEEN /LPF [facility] Comment:{HYALINE CAST {[id number]) 10/06/2015 10:1 1 AM EDT 10/06/2015 6:19 PM EDT Narrative Resulting Agency Comment [id number] Brandyn Pagan MD LAB SAME DAY RESULT Final Resul t Performing Organization Address City/[facility] Co de Phone Number [facility] [address] [place] [address] * GLUCOSE (BLOOD) (10/06/2015 10:11 AM EDT) Glucose 86 65 - 99 mg/dL [facility] Comment: {GLUCOSE {[id number]) ? Fasting reference interval 10/06/2015 10:1 1 AM EDT 10/06/2015 6:19 PM EDT Narrative Resulting Agency Comment [id number] Brandyn Pagan MD LAB SAME DAY RESULT Final Resul t Performing Organization Address [facility] de Phone Number [facility] [address] [place] [address] * (ABNORMAL) LIPID PANEL WITH REFLEX TO DIRECT LDL (10/06/2015 10:11 AM EDT) Cholesterol 243(H) 125 - 200 mg/dL [facility] Comment:{CHOLESTEROL, TOTAL {[id number]) HDL Cholesterol 71 > OR = 46 mg/dL [facility] Comment:{HDL CHOLESTEROL {[id number]) Triglyceride 163(H) <150 mg/dL [facility] Comment:{TRIGLYCERIDES {[id number]) LDL Cholesterol 139(H) <130 mg/dL (calc) [facility] Comment: {LDL-CHOLESTEROL {[id number]) Desirable range <100 mg/dL for patients with CHD or diabetes and <70 mg/dL for diabetic patients with known heart disease. CHOL/HDL Ratio 3.4 < OR = 5.0 (calc) [facility] Comment:{CHOL/HDLC RATIO {[id number]) Cholesterol Non-HDL 172(H) mg/dL (calc) [facility] Comment: {NON HDL CHOLESTEROL {[id number]) Target for non-HDL cholesterol is 30 mg/dL higher than LDL cholesterol target. 10/06/2015 10:1 1 AM EDT 10/06/2015 6:19 PM EDT Narrative Resulting Agency Comment [id number] us Brandyn Pagan MD LABORATORY Final Result Performing Organization Address City/State/[facility] Co de Phone Number [facility] [address] [place] [address] documented in this encounter Visit Diagnoses Diagnosis Lipid screening Screening for lipoid disorders Screening for cardiovascular condition Screening for other and unspecified cardiovascular conditions Screening for diabetes mellitus Urinary tract infection, site unspecified documented in this encounter Care Teams Appraiser Art Relationship Specialty Start Date End Date Brandyn Pagan MD PCP - General Internal Medicine 08/07/15 02/02/17 Radha Spangler NP PCP - Backup PCP Internal Medicine 01/11/16 02/02/17 Unknown Pcp, Non [facility] PCP - General 02/03/17 documented as of this encounter
--- OUTSIDE RECORDS SUMMARY | 2024-07-31 15:46 | XMS_ITS | Encounter Summary ---
Author Organization [facility] Address [address] [place] [address] Care Team Providers Care Media Aid Name Role Phone Brandyn Pagan MD Primary Care Provider Unavaila Radha Fink NP Unavailable Unavailable Unknown Pcp, Non Rmg Primary Care Provider Unava ilable Encounter Details Date Type Department Care Team (Late st Contact Info) Description 11/02/2015 Orders Only [facility] [address] [place] [address] Radha Spangler NP Social History Tobacco Use [...] 12:18 PM EDTQuick Note: Letter sent * Slein Chatman - 11/04/2015 7:29 AM EDTQuick Note: [...] this encounter Procedures * Due to [place] [employer] law, this organization might not be sharing negative HIV tests. Procedure Name Priority Date/Time Associated Diagnosis Comments ALANINE AMINOTRANSFERASE (ALT), SERUM Routine 11/02/2015 12:44 PM EDT Hyperlipidemia, unspecified hyperlipidemia type CREATINE KINASE (CK), SERUM Routine 11/02/2015 12:44 PM EDT Hyperlipidemia, unspecified hyperlipidemia type documented in this encounter Results * Due to [place] [employer] law, this organization might not be sharing negative HIV tests. * CREATINE KINASE (CK), SERUM (11/02/2015 12:44 PM EDT) CPK 106 29 - 143 U/L [facility] Comment:{CREATINE KINASE, TO KENZIE {[id number]) 11/02/2015 12:4 4 PM EDT 11/03/2015 2:14 AM EDT Narrative Resulting Agency Comment [id number] Radha Spangler PAINTER FOREMAN LAB SAME DAY RESULT Final Re sult [facility] [address] [place] [address] * ALANINE AMINOTRANSFERASE (ALT), SERUM (11/02/2015 12:44 PM EDT) ALT (SGPT) 22 6 - 29 U/L [facility] Comment:{ALT {[id number]) 11/02/2015 12:4 4 PM EDT 11/03/2015 2:14 AM EDT Narrative Resulting Agency Comment [id number] us Radha Spangler PAINTER FOREMAN LAB SAME DAY RESULT Final Re sult [facility] [address] [place] [address] documented in this encounter Visit Diagnoses Diagnosis Hyperlipidemia, unspecified hyperlipidemia type documented in this encounter Care Teams Media Aid Relationship Specialty Start Date End Date Brandyn Pagan MD PCP - General Internal Medicine 08/07/15 02/02/17 Radha Spangler NP PCP - Backup PCP Internal Medicine 01/11/16 02/02/17 Unknown Pcp, Non [facility]mg PCP - General 02/03/17 documented as of this encounter
--- OUTSIDE RECORDS SUMMARY | 2024-07-31 15:46 | XMS_ITS | Encounter Summary ---
Author Organization [facility] Address [address] [place] [address] Care Team Providers Care Linen Sorter Name Role Phone Bijal Fox DRUG ENFORCEMENT ADMINISTRATION AGENT Primary Care Provider [phone] Encounter Details Date Type Department Care Team (Late st Contact Info) Description 07/16/2024 Orders Only [facility] Site Department [address] [place] [address] Bijal Fox, MEY [address] [facility] [address] [place] [address] Urinary tract infection without hematuria, site unspecified (Primary Dx) Social History Tobacco Use Types Packs/Day Years Used Date Smoking Tobacco: Former Smokeless Tobacco: Never Comments:: Alcohol Use Standard Drinks/Week Comments Not Currently 0 (1 standard drink = 0.6 oz pur e alcohol) [facility] Utilities Answer Date Recorded In the past [...] Description 08/01/2024 2:00 PM EDT Follow-Up [facility] Nephrology [address] [place] [address] John Hendricks MD [address] [address] 09/18/2024 11:00 AM EDT Follow-Up [facility] [address] [place] [address] MarvinJeffery PA [address] [place] [address] 01/08/2025 10:00 AM EDT Follow-Up [address] Building Cardiology [address] [place] [address] Mabel Onofre NP [address] [place] [address] documented as of this encounter Results * Due to [place] state law, this organization might not be sharing negative HIV tests. * Urine Culture, Routine (07/19/2024 10:59 AM EST) Urine Culture <10,000 CFU/mL mixed gram positives; multiple organisms are present, suggestive of contamination at the time of collection. [facility] MANUAL 07/20/2024 8:13 AM EST [facility] Urine Urine specimen collection, clean catch / Unknown Non-Blood Collection / Unknown 07/19/2024 10:59 AM EST 07/19/2024 11:16 AM EST Bijal Fox NP LAB MICROBIOLOGY - GENERAL MIHCAEL CALHOUN Final Result [facility] [address] [place] [address], documented in this encounter Visit Diagnoses Diagnosis Urinary tract infection without hematuria, site unspecified- Primary documented in this encounter Care Teams Linen Sorter Relationship Specialty Start Date End Date Bijal Fox, MEY [address] [facility] [address] [place] [address] PCP - General Family Medicine 05/30/24 documented as of this encounter
--- OUTSIDE RECORDS SUMMARY | 2024-07-31 15:47 | XMS_ITS | Encounter Summary ---
Author Organization [facility] Address [address] [place] [address] Care Team Providers Care Family Specialist Name Role Phone Bijal Fox DRY CLEANING ATTENDANT Primary Care Provider [phone] Encounter Details Date Type Department Care Team (Late st Contact Info) Description 06/23/2024 Lab Requisition [facility] [address] [place] [address] Mj Mendenhall MD [address] [place] [address] Pneumonia due to other specified infectious organisms Social History Tobacco Use Types Packs/Day Years Used Date Smoking Tobacco: Former Smokeless Tobacco: Never Comments:: Alcohol Use Standard Drinks/Week Comments Not Currently 0 (1 standard drink = 0.6 oz pur e alcohol) [facility] Utilities Answer Date Recorded In the past [...] Info) Description 08/01/2024 2:00 PM EDT Follow-Up [facility] Nephrology [address] [place] [address] [address] [place] [address] John Hendricks MD [address] [address] 09/18/2024 11:00 AM EDT Follow-Up [facility] [address] [place] [address] MarvinJeffery PA [address] [place] [address] 01/08/2025 10:00 AM EDT Follow-Up [address] Cardiology [address] [place] [address] Mabel Onofre, MEY [address] [place] [address] documented as of this encounter Procedures * Due to [facility] law, this organization might not be sharing negative HIV tests. Procedure Name Priority Date/Time Associated Diagnosis Comments VITAMIN D, 25-HYDROXY, TOTAL, IMMUNOASSAY Routine 06/23/2024 6:00 AM EST Pneumonia due to other specified infectious organisms documented in this encounter Results * Due to [facility] law, this organization might not be sharing negative HIV tests. * (ABNORMAL) Vitamin D, 25-Hydroxy, Total, Immunoassay (06/23/2024 6:00 AM EST) Vitamin D 25-OH 21.50(L) 30.00 - 80.00 ng/mL 06/23/2024 8:52 AM EST [facility] Blood Structure of peripheral vein / Unknown 06/23/2024 6:00 AM EST 06/23/2024 7:54 AM EST us Mj Mendenhall MD LAB BLOOD ORDERABLES Final R esult [facility] [address] [facility] [address] [place] [address], documented in this encounter Visit Diagnoses Diagnosis Pneumonia due to other specified infectious organisms documented in this encounter Care Teams Family Specialist Relationship Specialty Start Date End Date Bijal Fox, DRY CLEANING ATTENDANT [address] [facility] [address] [place] [address] PCP - General Family Medicine 05/30/24 documented as of this encounter
--- OUTSIDE RECORDS SUMMARY | 2024-07-31 15:47 | XMS_ITS | Encounter Summary ---
Author Organization [facility] Address [address] [place] [address] Care Team Providers Care Sod Farmer Name Role Phone Brandyn Pagan MD Primary Care Provider Radha Cuevas NP Unavailable Unavailable Unknown Pcp, Non [facility]mg Primary Care Provider Unava ilable Encounter Details Date Type Department Care Team (Late st Contact Info) Description 01/12/2017 Orders Only [facility] [address] [place] [address] Brandyn Pagan MD Social History Tobacco Use [...] this encounter Procedures * Due to [place] [employer] law, this organization might not be sharing negative HIV tests. Procedure Name Priority Date/Time Associated Diagnosis Comments URINALYSIS, DIP ONLY STAT (All results called to provider) 01/12/2017 12:59 PM EDT Frequency of urination CULTURE, URINE, ROUTINE Routine 01/12/2017 12:22 PM EDT Frequency of urination URINALYSIS, MICROSCOPIC Routine 01/12/2017 12:22 PM EDT Frequency of urination documented in this encounter Results * Due to [place] [employer] law, this organization might not be sharing negative HIV tests. * URINALYSIS, DIP ONLY ( SITE STAT ONLY) (01/12/2017 12:59 PM EDT) COLOR (URINE) YELLOW [facility] (CLIA# [id number]) APPEARANCE (URINE) CLEAR Clear [facility] (CLIA# [id number]) SPECIFIC GRAVITY 1.005 1.001 - 1.035 [facility] (CLIA# [id number]) PH (URINE) 7.0 5.0 - 8.0 [facility] (CLIA# [id number]) PROTEIN (URINE) NEG Neg [facility] (CLIA# [id number]) GLUCOSE (URINE) NEG Neg [facility] (CLIA# [id number]) Ketones (Urine) NEG Neg [facility] (CLIA# [id number]) BILIRUBIN (URINE) NEG Neg [facility] (CLIA# [id number]) BLOOD (URINE) NEG Neg [facility] (CLIA# [id number]) Leukocyte esterase (Urine) NEG Neg [facility] (CLIA# [id number]) NITRITE (URINE) NEG Neg [facility] (CLIA# [id number]) Urine specimen obtained by clean catch procedure (specimen) 01/12/2017 12:59 PM EDT Narrative [facility] (CLIA# [id number]) - 01/12/2017 1:00 PM EDT Micro and culture already ordered per provider. Brandyn Pagan MD LAB SAME DAY RESULT Final Resul t Performing Organization Address [facility] de Phone Number [facility] (CLIA# [id number]) [address] [place] [address] * CULTURE, URINE, ROUTINE (01/12/2017 12:22 PM EDT) Bacteria culture (Urine) SEE NOTE [facility] Comment: ??CULTURE, URINE, ROUTINE ??MICRO NUMBER: ?[id number] ??TEST STATUS: ? FINAL ??SPECIMEN SOURCE: ?? URINE ??SPECIMEN QUALITY: ??ADEQUATE ??RESULT: ?No Growth 01/12/2017 12:2 2 PM EDT 01/12/2017 10:29 PM EDT Narrative Resulting Agency Comment [id number] us Brandyn Pagan MD LABORATORY Final Result Performing Organization Address City/[facility]/ZIP Co de Phone Number [facility] [address] [place] [address] * URINALYSIS, MICROSCOPIC (01/12/2017 12:22 PM EDT) [...] 10:29 PM EDT Narrative Resulting Agency Comment [id number] us Brandyn Pagan MD LAB SAME DAY RESULT Final Resul t Performing Organization Address City/State/[facility] Co de Phone Number [facility] [address] [place] [address] documented in this encounter Visit Diagnoses Diagnosis Frequency of urination Urinary frequency documented in this encounter Care Teams Sod Farmer Relationship Specialty Start Date End Date Brandyn Pagan MD PCP - General Internal Medicine 08/07/15 02/02/17 Radha Spangler NP PCP - Backup PCP Internal Medicine 01/11/16 02/02/17 Unknown Pcp, Non Rmg PCP - General 02/03/17 documented as of this encounter
--- OUTSIDE RECORDS SUMMARY | 2024-07-31 15:47 | XMS_ITS | Encounter Summary ---
Author Organization [facility] Address [address] [place] [address] Care Team Providers Care Sterile Preparation Technician Name Role Phone Brandyn Pagan MD Primary Care Provider Unavaila Radha Fink NP Unavailable Unavailable Unknown Pcp, Non Rmg Primary Care Provider Unava ilable Encounter Details Date Type Department Care Team (Late st Contact Info) Description 01/08/2016 Orders Only [facility] [address] [place] [phone] Brandyn Pagan MD Social History Tobacco Use [...] on filedocumented in this encounter Care Teams Sterile Preparation Technician Relationship Specialty Start Date End Date Brandyn Pagan MD PCP - General Internal Medicine 08/07/15 02/02/17 Radha Spangler NP PCP - Backup PCP Internal Medicine 01/11/16 02/02/17 Unknown Pcp, Non Rmg PCP - General 02/03/17 documented as of this encounter
--- OUTSIDE RECORDS SUMMARY | 2024-07-31 15:47 | XMS_ITS | Encounter Summary ---
Author Organization [facility] Address [address] [place] [address] Care Team Providers Care Teletypewriter Operator Name Role Phone Bijal Fox FLEXOGRAPHIC PRINTING MACHINIST Primary Care Provider [phone] Reason for Visit * Reason Onset Date Comments TCM 06/24/2024 Encounter Details Date Type Department Care Team ([facility] st Contact Info) Description 06/24/[address] Cardiology 100 [facility] [address] [place] [address] Elise Boykin MA TCM Social History Tobacco Use Types Packs/Day Years Used Date Smoking Tobacco: Former Smokeless Tobacco: Never Comments:: Alcohol Use Standard Drinks/Week Comments Not Currently 0 (1 standard drink = 0.6 oz pur e alcohol) [facility] Utilities Answer Date Recorded In the past [...] DISCHARGE INFORMATION Genie was discharged from a [facility] Facility on 06/26/24 Last Hospital Admission [...] now? 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 [...] Info) Description 08/01/2024 2:00 PM EDT Follow-Up [facility] Nephrology 100 [facility] [address] [place] [address] John Hendricks MD [address] [address] 09/18/2024 11:00 AM EDT Follow-Up [facility] [address] [place] [address] MarvinJeffery PA [address] [place] [address] 01/08/2025 10:00 AM EDT Follow-Up [facility] 100 [facility] Cardiology 100 [facility] [address] [place] [address] Mabel Onofre NP 100 [facility] [address] [place] [address] documented as of this encounter Results * Due to [place] state law, this organization might not be sharing negative HIV tests. * N-terminal ProBrain Natriuretic Peptide (07/01/2024 8:39 AM EST) Pro-B-Type Natriuretic Peptide 288 <=900 pg/mL 07/01/2024 9:39 AM EST [facility] Comment: RULE IN CHF >/= 450 [...] EST 07/01/2024 9:05 AM EST Mabel Onofre FLEXOGRAPHIC PRINTING MACHINIST LAB BLOOD ORDERABLES Final Result [facility] [address] [place] [address] [address] [place] [address], * (ABNORMAL) Basic metabolic panel (07/01/2024 8:39 AM EST) NA 140 136 - 145 mmol/L 07/01/2024 9:36 AM EST [facility] K 5.3(H) 3.5 - 5.1 mmol/L 07/01/2024 9:36 AM EST [facility] Cl 102 98 - 109 mmol/L 07/01/2024 9:36 AM EST [facility] CO2 29 22 - 32 mmol/L 07/01/2024 9:36 AM EST [facility] BUN 34(H) 8 - 23 mg/dL 07/01/2024 9:36 AM EST [facility] Creatinine 1.27(H) 0.50 - 1.12 mg/dL 07/01/2024 9:36 AM EST [facility] Glucose 113(H) 60 - 99 mg/dL 07/01/2024 9:36 AM EST [facility] Calcium 8.9 8.4 - 10.4 mg/dL 07/01/2024 9:36 AM EST [facility] Anion Gap 14 >=0 07/01/2024 9:36 AM EST [facility] eGFR 45(L) >=60 mL/min/1. 73m2 07/01/2024 9:36 AM EST [facility] Comment:The estimated glomer ular filtration rate [...] 8:39 AM EST 07/01/2024 9:04 AM EST us Mabel Onofre NP LAB BLOOD ORDERABLES Final Result [facility] [address] [facility] [address] [place] [address], documented in this encounter Visit Diagnoses Diagnosis Diastolic heart failure, unspecified HF chronicity (HCC)- Primary Atrial fibrillation, unspecified type (HCC) documented in this encounter Care Teams Teletypewriter Operator Relationship Specialty Start Date End Date Biajl Fox NP 100 [facility] [address] [place] [address] PCP - General Family Medicine 05/30/24 documented as of this encounter
--- OUTSIDE RECORDS SUMMARY | 2024-07-31 15:47 | XMS_ITS | Encounter Summary ---
Author Organization [facility] Address [address] [place] [address] Care Team Providers Care Collections Assistant Name Role Phone Brandyn Pagan MD Primary Care Provider Unavaila Radha Fink NP Unavailable Unavailable Unknown Pcp, Non [facility] Primary Care Provider Unava ilable Encounter Details Date Type Department Care Team (Late st Contact Info) Description 01/04/2017 Orders Only [facility] [address] [place] [address] Radha Spangler NP Social History Tobacco Use [...] 017 9:26 AM EDT) No Eineberg, Radha, [employer] documented as of this encounter Procedures * Due to [place] [employer] law, this organization might not be sharing [...] in this encounter Results * Due to [place] [employer] law, this organization might not be sharing negative HIV tests. * (ABNORMAL) BASIC METABOLIC PANEL WITH (GFR) (01/04/2017 1:11 PM EDT) Glucose 97 65 - 99 mg/dL [facility] Comment:Fasting reference in [facility] Urea Nitrogen Blood (BUN) 27(H) 7 - [...] needs for GFR calculation. Resulting Agency Comment [id number] Radha Spangler NP LABORATORY Final Result Performing Organization Address [facility] Co de Phone Number [facility] [address] [place] [address] * HEPATIC FUNCTION PANEL (ALT,AST,ALK PH,BILI'S,TP,ALB) (01/04/2017 [...] 10:19 PM EDT Narrative Resulting Agency Comment [id number] Radha Spangler NP LABORATORY Final Result Performing Organization Address [facility] Co de Phone Number [facility] [address] [place] [address] * (ABNORMAL) HEMOGLOBIN A1C (01/04/2017 1:11 PM [...] 10:19 PM EDT Narrative Resulting Agency Comment [id number] Radha Spangler NP LABORATORY Final Result Performing Organization Address [facility] de Phone Number [facility] [address] [place] [address] * (ABNORMAL) LIPID PANEL WITH REFLEX TO [...] 10:19 PM EDT Narrative Resulting Agency Comment [id number] Radha Spangler NP LABORATORY Final Result Performing Organization Address [facility] de Phone Number [facility] [address] [place] [address] * (ABNORMAL) CBC INCLUDES DIFFERENTIAL AND PLATELET [...] 10:19 PM EDT Narrative Resulting Agency Comment [id number] Radha Spangler NP LAB SAME DAY RESULT Final Re sult [facility] [address] [place] [address] documented in this encounter Visit Diagnoses Diagnosis Nail discoloration Other specified disease of nail Transaminitis Nonspecific elevation of levels of transaminase or lactic acid dehydrogenase (LDH) Benign essential HTN Essential hypertension, benign CKD (chronic kidney disease), stage III (HCC) Chronic kidney disease, Stage III (moderate) documented in this encounter Care Teams Collections Assistant Relationship Specialty Start Date End Date Brandyn Pagan MD PCP - General Internal Medicine 08/07/15 02/02/17 Radha Spangler NP PCP - Backup PCP Internal Medicine 01/11/16 02/02/17 Unknown Pcp, Non [facility] PCP - General 02/03/17 documented as of this encounter
--- OUTSIDE RECORDS SUMMARY | 2024-07-31 15:47 | XMS_ITS | Encounter Summary ---
Author Organization [facility] Address [address] [place] [address] Care Team Providers Care Purchasing Assistant Name Role Phone Brandyn Pagan MD Primary Care Provider Unavaila Radha Fink NP Unavailable Unavailable Unknown Pcp, Non [facility] Primary Care Provider Unava ilable Encounter Details Date Type Department Care Team (Late st Contact Info) Description 01/28/2016 Orders Only [facility] [address] [place] [address] Radha Spangler, MEY Social History Tobacco Use [...] Pressure 120/73( 017 9:26 AM EDT) No Radah Spangler NP documented as of this encounter Procedures * Due to [place] [employer] law, this organization might not be sharing negative HIV tests. Procedure Name Priority Date/Time Associated Diagnosis Comments BASIC METABOLIC PANEL WITH (GFR) Routine 01/28/2016 11:41 AM EDT Elevated serum creatinine documented in this encounter Results * Due to [place] [employer] law, this organization might not be sharing negative HIV tests. * (ABNORMAL) BASIC METABOLIC PANEL WITH (GFR) (01/28/2016 11:41 AM EDT) Glucose 95 65 - 99 mg/dL [facility] Comment: {GLUCOSE {[id number]) ? Fasting reference interval Urea Nitrogen Blood (BUN) 28(H) 7 - 25 mg/dL [facility] Comment:{UREA NITROGEN (BUN) {[id number]) Creatinine 1.12(H) 0.50 - 0.99 mg/dL [facility] Comment: {CREATININE {[id number]) For patients >49 years of age, the reference limit for Creatinine is approximately 13% higher for people identified as -[place]ian. GFR 52(L) > OR = 60 mL/min/1. 73m2 [facility] Comment:{eGFR NON-AFR. AMERI CAN {[id number]) GFR () 60 > OR = 60 mL/min/1. 73m2 [facility] Comment:{eGFR AMERIC AN {[id number]) BUN/Creatinine Ratio 25(H) 6 - 22 (calc) [facility] Comment:{BUN/CREATININE RATI O {[id number]) Sodium 140 135 - 146 mmol/L [facility] Comment:{SODIUM {[id number]) Potassium 4.8 3.5 - 5.3 mmol/L [facility] Comment:{POTASSIUM {[id number]) Chloride 106 98 - 110 mmol/L [facility] Comment:{CHLORIDE {[id number]) Carbon dioxide 30 20 - 31 mmol/L [facility] Comment:{CARBON DIOXIDE {[id number]) Calcium 9.5 8.6 - 10.4 mg/dL [facility] Comment:{CALCIUM {[id number]) 01/28/2016 11:4 1 AM EDT 01/28/2016 [...] needs for GFR calculation. Resulting Agency Comment [id number] Radha Spangler NP LABORATORY Final Result Performing Organization Address City/State/[facility] Co de Phone Number [facility] [address] [place] [address] documented in this encounter Visit Diagnoses Diagnosis Elevated serum creatinine Other nonspecific findings on examination of blood documented in this encounter Care Teams Purchasing Assistant Relationship Specialty Start Date End Date Brandyn Pagan MD PCP - General Internal Medicine 08/07/15 02/02/17 Radha Spangler NP PCP - Backup PCP Internal Medicine 01/11/16 02/02/17 Unknown Pcp, Non [facility] PCP - General 02/03/17 documented as of this encounter
--- OUTSIDE RECORDS SUMMARY | 2024-07-31 15:47 | XMS_ITS | Clinical Summary ---
Author Organization [facility] Address [address] [place] [address] Care Team Providers Care [employer] Name Role Phone Bijal Fox NP Primary Care Provider [phone] Allergies Active Allergy Reactions Criticality Noted Date Comments Lansoprazole Indigestion Medium Qxeweee-Uaf-Qfr Reductase Inhibitors Muscle Pain Medium Per pt [...] mcg total) by mouth daily. 30 tablet 5 Active budesonide (PULMICORT) 0.5 mg/2 mL suspension Inhale 2 mL (0.5 mg total) via nebulizer every 12 hours. Rinse mouth with water after use to reduce aftertaste and incidence of candidiasis. Do not swallow. 120 mL 5 Active benzonatate (TESSALON) 100 mg capsule Take 1 capsule (100 mg total) by mouth 3 times a day as needed for cough. 30 capsule 5 Active arformoteroL (Brovana) 15 mcg/2 mL nebulizer solution Inhale 2 mL (15 mcg total) via nebulizer every 12 hours. 120 mL 5 Active sodium zirconium cyclosilicate (LOKELMA) 5 gram powder in packet powder Take 3 packets (15 g total) by mouth once a day. 30 packet 5 Active senna (SENOKOT) 8.6 mg tablet Take 2 tablets (17.2 mg total) by mouth once a day. 60 tablet [address] (PROTONIX) 40 mg tablet Take 1 tablet (40 mg total) by mouth once a day. 30 tablet 5 Active nystatin (MYCOSTATIN) 100,000 unit/mL suspension Take 5 mL (500,000 Units total) by mouth 4 times a day. 300 mL 5 Active ipratropium-albut Alan (DUO-NEB) 0.5-2.5 mg/3 mL nebulizer solution Inhale 3 mL via nebulizer every 4 hours as needed for wheezing or shortness of breath. 360 mL 5 Active guaiFENesin ER (MUCINEX) 600 mg tablet Take 1 tablet (600 mg total) by mouth every 12 hours. 60 tablet 5 Active apixaban (Eliquis) 5 mg tabletIndications :Atrial fibrillation, unspecified type (HCC) Take 1 tablet (5 mg total) by mouth every 12 hours. 60 tablet 5 Active traMADoL (ULTRAM) 50 mg tablet Take 50 mg by mouth every 8 hours as needed for pain. 5 Active furosemide (LASIX) 20 mg tablet Take 1 tablet (20 mg total) by mouth every other day. With an additional tablet as needed for weight gain or swelling 30 tablet 11 5 Active predniSONE (DELTASONE) 10 mg tablet Take 4 tablets (40 mg total) by mouth once a day for 2 days, THEN 3 tablets (30 mg total) once a day for 2 days, THEN 2 tablets (20 mg total) once a day for 2 days, THEN 1 tablet (10 mg total) once a day for 2 days. 20 tablet 5 025 Hospital, Clinic, or Other Facility Administered Medication Ordered Dose Route Frequency Start Date End Date Status lidocaine PF (XYLOCAINE) 1% (10 mg/mL) injection 3 mLIndications:Left shoulder pain, unspecified chronicity 3 mL injection One-time injection 07/31/2024 07/31/2024 Ended iohexoL (OMNIPAQUE) 300 mg iodine/mL injection 1 mLIndications:Left shoulder pain, unspecified chronicity 1 mL One-time injection 07/31/2024 07/31/2024 Ended triamcinolone acetonide (KENALOG-40) injection 80 mgIndications:Left shoulder pain, unspecified chronicity 80 mg intraartic One-time injection 07/31/2024 07/31/2024 Ended Active Problems Problem Noted Date Diagnosed Date [...] on admission by SpO2 88% requiring 3-4L ENROLLMENT MANAGEMENT COORDINATOR. Tachypnea with RR increased to 22 RPM. She is not home-O2 dependent. -Wean supplemental O2 as tolerated, presently om room air -Taper steroids -Continue supportive therapy with nebulized bronchodilators, ICS and multiple antitussives. -Avoid increasing Tramadol in setting of COPD/asthma. Assessment & Plan (06/23/2024 4:18 PM EST): Acute Resp Failure: Evidenced on admission by SpO2 88% requiring 3-4L ENROLLMENT MANAGEMENT COORDINATOR. Tachypnea with RR increased to 22 RPM. She is not home-O2 dependent. Presently weaned to 2L ENROLLMENT MANAGEMENT COORDINATOR, but still coarse with rhonchus cough. Reduced IV steroids as no wheezing on exam and she appears tearful and depressed. Continue supportive therapy with nebulized bronchodilators, ICS and multiple antitussives. Avoid increasing Tramadol in setting of COPD/asthma. Assessment & Plan (06/22/2024 5:42 PM EST): Acute Resp Failure: Evidenced on admission by SpO2 88% requiring 3-4L ENROLLMENT MANAGEMENT COORDINATOR. Tachypnea with RR increased to 22 RPM. She is not home-O2 dependent. Presently weaned to 2L ENROLLMENT MANAGEMENT COORDINATOR, but still coarse with rhonchus cough. [...] contributing to multiple recent falls. Appreciate PT eval who recommends STR RNCM working on STR placement and insurance auth. Fall precautions Ambulate with assistance A-fib ([facility]) 06/03/2024 Assessment & Plan (06/25/2024 12:39 [...] Encounters Date Type Department Care Team Description 07/31/2024 12:09 PM EDT Hospital Encounter [facility] [address] [place] [address] Sonny Reed MD Pain 07/31/2024 10:15 AM EDT Hospital Encounter [facility] [address] [place] [address] Sonny Reed MD Chronic left shoulder pain (Primary Dx); Left shoulder pain, unspecified chronicity 07/22/2024 11:15 AM EST Office Visit [facility] [address] [place] [phone] Marvin, AYAD Gil Primary osteoarthritis of left shoulder (Primary Dx); Rotator cuff tear arthropathy of left shoulder 07/22/2024 11:08 AM EST - 07/22/2024 11:59 PM EST Hospital Encounter [facility] [address] [place] [address] Acute pain of left shoulder Discharge Disposition: Home or Self Care () 07/20/2024 Orders Only [facility] Site Department [address] [place] [address] Magy Sawyer, MEY Swelling of limb (Primary Dx) 07/19/2024 12:10 PM EST Lab [facility] Site Department [address] [place] [phone] Swelling of lower extremity (Primary Dx); Urinary tract infection without hematuria, site unspecified 07/16/2024 10:45 AM EST - 07/16/2024 11:59 PM EST Hospital Encounter [facility] Xray Department [address] [place] [address] Heart failure, unspecified HF chronicity, unspecified heart failure type (HCC) Discharge Disposition: Home or Self Care () 07/16/2024 Lab Requisition [facility] Lab [address] [place] [address] Bijal Fox, ENROLLMENT MANAGEMENT COORDINATOR Urinary tract infection, site not specified 07/16/2024 Orders Only [facility] Site Department [address] [place] [address] Bijal Fox, MEY Urinary tract infection without hematuria, site unspecified (Primary Dx) 07/13/2024 10:30 AM EST Lab [facility] Site Department [address] [place] [address] Heart failure, unspecified HF chronicity, unspecified heart failure type (HCC) (Primary Dx); Hyperlipidemia, unspecified hyperlipidemia type; 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 Orders Only [facility] Lab [address] [place] [address] Magy Sawyer NP Hyperlipidemia, unspecified hyperlipidemia type (Primary Dx); 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/03/2024 2:30 PM EST Office Visit [address] Cardiology [address] [place] [address] Mabel Onofre NP Diastolic heart failure, unspecified HF chronicity (HCC) (Primary Dx); Paroxysmal atrial fibrillation (HCC); Pulmonary hypertension (HCC); BILLIE (obstructive sleep apnea); Benign hypertensive heart disease without congestive heart failure 07/03/2024 Telephone [facility] Case Management Department [address] [place] [address] Mariajose Calvillo RN 07/02/2024 10:05 AM EST Lab [facility] Department [address] [place] [address] 07/01/2024 3:15 PM EST Office Visit [facility] Nephrology [address] [place] [address], 2nd [place] [address] John Hendricks MD Hyperkalemia (Primary Dx); CKD stage 3a, GFR 45-59 ml/min (HCC); Chronic heart failure with preserved ejection fraction (HCC); Primary hypertension 07/01/2024 9:05 AM EST Lab [facility] Site Department [address] [place] [address] Diastolic heart failure, unspecified HF chronicity (HCC) 07/01/2024 Orders Only [address] Cardiology [address] [place] [address] Mabel Onofre NP 06/24/[address] Cardiology [address] [place] [address] Elise Boykin MA TCM 06/23/2024 Lab Requisition [facility] Lab [address] [place] [address] Mj Mendenhall MD Pneumonia due to other specified infectious organisms 06/15/2024 7:35 PM EST - 06/26/2024 6:09 PM EST Hospital Encounter [facility] [address] [address] Kevin Newsome MD Devineni, Praveen, MD Pneumonia of left lung due to infectious organism, unspecified part of lung (Primary Dx); Acute hypoxic respiratory failure (HCC) Discharge Disposition: Home with Services (06) 06/02/2024 12:57 PM EST - 06/04/2024 3:30 PM EST Emergency [facility] [address] [address] Govind Glez MD Cebula, Maria, MD Colucci, Joseph M, MD Silva, Joshua T, MD Nesanelis, MD Sonny Generalized weakness (Primary Dx) Discharge Disposition: [facility] (03) from Last 3 Months Immunizations [...] Pressure 138/70 07/03/2024 2:29 PM EST Pulse 53 07/31/2024 10:44 AM EDT Temperature 36.6 ??C (97.9 ??F) 07/31/2024 10:30 AM E DT Respiratory Rate 18 06/26/2024 3:00 PM EST Oxygen Saturation 90% 07/31/2024 10:44 AM EDT Inhaled Oxygen Concentration - - Weight 115.2 kg (254 lb) 07/22/2024 11:10 AM EST Height 167.6 cm (5' 5.98 ) 07/01/2024 3:13 PM ES T Body Mass Index 41.02 07/01/2024 3:13 PM EST Plan of Treatment Upcoming Encounters Date Type Department Care Team ([facility] st Contact Info) Description 08/01/2024 2:00 PM EDT Follow-Up [facility] Nephrology 100 [facility] [address] [place] [address] John Hendricks MD [address] [address] 09/18/2024 11:00 AM EDT Follow-Up [facility] [address] [place] [address] Marvin, AYAD Gil [address] [place] [address] 01/08/2025 10:00 AM EDT Follow-Up [address] Cardiology 100 [facility] [address] [place] [address] Mabel Onofre NP 100 [facility] [address] [place] [address] Health Maintenance Due Date Last Done Comments RSV Vaccine (60+ years old and patients) (1 - Risk 60-74 years 1-dose series) 2011 Zoster Vaccines (2 of 3) 03/07/2016 01/11/2016 Colonoscopy 09/02/2019 09/01/2014 COVID-19 Vaccine (1 - season) 2024 Influenza Vaccine (#1) 2024 8, 06/15/2017, 03/11/2016 Alcohol/Substance Use Screening 05/22/2024 Depression Evaluation 05/22/2024 Health Care Proxy Review 05/22/2024 Basic Metabolic Panel 01/16/2025 07/19/2024 , 07/13/2024, 07/02/2024, Additional history exists Mammogram 03/27/2025 03/27/2023, 0809/2019, 12/25/2019, Additional history exists Social Drivers of Health Annual Screening 06/03/2025 06/03/2024 CT Lung Cancer Screening (Baseline) 06/15/2025 06/15/2024, 03/29/2023, 01/13/2021, Additional history exists 25 Hydroxy / Vitamin D 07/02/2025 , 06/23/2024, 03/23/2012, Additional history exists Hemoglobin 07/02/2025 07/02/2024, 02/0 09/2024, 06/25/2024, Additional history exists PTH 07/02/2025 07/02/2024 Phosphorus 07/02/2025 07/02/2024 Urine Microalbumin 07/02/2025 07/02/2024 DTaP,Tdap,and Td Vaccines (2 - Td or Tdap) 01/10/2026 01/11/2016 Pneumococcal Vaccine: 50+ Years Completed 06/27/2018, 06/15/2017 Hepatitis C Screening Completed 08/17/2018 Osteoporosis Screening Completed 01/22/2020 Hepatitis B Vaccines Aged Out No long er eligible based on patient's age to complete this topic Procedures * Due to [place] state law, this organization might not be sharing negative HIV tests. Procedure Name Priority Date/Time Associated Diagnosis Comments FL C-ARM WITH IMAGES NONREPORTABLE Routine 07/31/2024 10:49 AM EDT Pain CHG FLUOROSCOPIC GUIDANCE NEEDLE PLACEMENT ADD ON Routine 07/31/2024 10:15 AM EDT Left shoulder pain, unspecified chronicity ME ARTHROCENTESIS ASPIR&/INJ MAJOR JT/BURSA W/O US Routine 07/31/2024 10:15 AM EDT Left shoulder pain, unspecified chronicity XR SHOULDER 2+ VW LEFT Routine 11:45 AM EST Acute pain of left shoulder BASIC METABOLIC PANEL Routine 07/19/2024 10:59 AM EST Swelling of lower extremity N-TERMINAL PROBRAIN NATRIURETIC PEPTIDE Routine 07/19/2024 10:59 AM EST Swelling of lower extremity URINE CULTURE, ROUTINE Routine 10:59 AM EST Urinary tract infection without hematuria, site unspecified URINE CULTURE, ROUTINE Routine 12:33 PM EST Urinary tract infection, site not specified XR CHEST 2 VW Routine 07/16/2024 11:04 AM EST Heart failure, unspecified HF chronicity, unspecified heart failure type (HCC) N-TERMINAL PROBRAIN NATRIURETIC PEPTIDE Routine 07/13/2024 10:20 AM EST Heart failure, unspecified HF chronicity, unspecified heart failure type (HCC) T4, FREE Routine 07/13/2024 10:20 AM EST Hyperlipidemia, unspecified hyperlipidemia type Myxedema heart disease TSH Routine 07/13/2024 10:20 AM EST Hyperlipidemia, unspecified hyperlipidemia type Myxedema heart disease COMPREHENSIVE METABOLIC PANEL Routine 07/13/2024 10:20 AM EST Hyperlipidemia, unspecified hyperlipidemia type Myxedema heart disease LIPID PANEL Routine 07/13/2024 10:20 AM EST Hyperlipidemia, unspecified hyperlipidemia type Myxedema heart disease MICROSCOPIC URINALYSIS ONLY Routine 07/02/2024 9:17 AM [...] not be sharing negative HIV tests. * FL C-Arm with Images NONREPORTABLE (07/31/2024 10:49 AM EDT) Narrative IMAGING - 07/31/2024 12:28 PM EDT This procedure does not contain a result. Please see the surgeon's note for official report. us Sonny Reed MD IMG FLUOROSCOPY PROCEDURES Fin al Result IMAGING * ME ARTHROCENTESIS ASPIR&/INJ MAJOR JT/BURSA W/O US, CHG [...] Patient's understanding of procedure matches consent: Yes Binger Protocol: ? Procedure consent matches procedure scheduled: [...] MD IN CLINIC/BEDSIDE ORDERABLES F inal Result * XR Shoulder 2+ vw Left (07/22/2024 [...] obtain the completed interpretation. ? Workstation ID: [id number] Narrative 07/22/2024 1:20 PM EST COMPARISON: ??There are no prior studies available for comparison at this time. ?? FINDINGS AND Resulting Agency Comment [id number] Procedure Note Rupali Barrios MD - 07/22/2024 [...] possible to obtain thecompleted interpretation. Workstation ID: [id number] Jeffery LION IMG XR PROCEDURES Final Result * N-terminal ProBrain Natriuretic Peptide - [facility] & MEM/LONI/Nicole Only (07/19/2024 10:59 AM EST) Only the most recent of7 resultswithin the time period is included. Pro-B-Type Natriuretic Peptide 281 <=900 pg/mL 07/19/2024 11:43 AM EST [facility] Comment: RULE IN CHF [...] EST 07/19/2024 11:17 AM EST Magy Sawyer ENROLLMENT MANAGEMENT COORDINATOR LAB BLOOD ORDERABLES Final Res ult Performing Organization Address [facility] Co de Phone Number [facility] [address] [place] [address], [place] [phone] * Urine Culture, Routine (07/19/2024 10:59 AM EST) Only the most recent of2 resultswithin the time period is included. [facility] Urine Culture <10,000 CFU/mL mixed gram positives; multiple organisms are present, suggestive of contamination at the time of collection. [place] MANUAL 07/20/2024 8:13 AM EST [facility] Urine Urine specimen collection, clean catch / Unknown Non-Blood Collection / Unknown 07/19/2024 10:59 AM EST 07/19/2024 11:16 AM EST Bijal Fox ENROLLMENT MANAGEMENT COORDINATOR LAB MICROBIOLOGY - GENERAL ORDE RABKRANTHI Final Result Performing Organization Address City/[facility]/ZIP Co de Phone Number [facility] [address] [address], [place] [phone] * (ABNORMAL) Basic Metabolic Panel (07/19/2024 10:59 AM EST) Only the most recent of12 resultswithin the time period is included. Pathologist [facility] NA 142 136 - 145 mmol/L 07/19/2024 11:41 AM EST [facility] K 4.0 3.5 - 5.1 mmol/L 07/19/2024 11:41 AM EST [facility] Cl 103 98 - 109 mmol/L 07/19/2024 11:41 AM EST [facility] CO2 29 22 - 32 mmol/L 07/19/2024 11:41 AM EST [facility] BUN 22 8 - 23 mg/dL 07/19/2024 11:41 AM EST [facility] Creatinine 1.42(H) 0.50 - 1.12 mg/dL 07/19/2024 11:41 AM EST [facility] Glucose 108(H) 60 - 99 mg/dL 07/19/2024 11:41 AM EST [facility] Calcium 8.9 8.4 - 10.4 mg/dL 07/19/2024 11:41 AM EST [facility] Anion Gap 14 >=0 07/19/2024 11:41 AM EST [facility] eGFR 39(L) >=60 mL/min/1. 73m2 07/19/2024 11:41 AM EST [facility] Comment:The estimated glomer ular [...] 10:59 AM EST 07/19/2024 11:17 AM EST us Magy Sawyer NP LAB BLOOD ORDERABLES Final Res ult [facility] [address] [place] [address] [phone] * X-Ray Chest 2 Views (07/16/2024 11:04 AM EST) Only the most recent of4 resultswithin the time period is included. Anatomical [...] obtain the completed interpretation. ? Workstation ID: [id number] Narrative 07/17/2024 8:14 AM EST COMPARISON: ??06/22/2024 FINDINGS AND Resulting Agency Comment [id number] Procedure Note Calvin Katz MD - 07/17/2024 COMPARISON: 06/22/2024 FINDINGS AND IMPRESSION: No change. Heart normal. Lungs and pleural spaces clear. Cervical spinefusion hardware noted. If this radiology report contains a blank impression section, it is anincomplete radiology report. Please contact the interpreting radiologistor applicable radiology division as soon as possible to obtain thecompleted interpretation. Workstation ID: [id number] us Magy Sawyer NP IMG XR PROCEDURES Final Result * TSH (07/13/2024 10:20 AM EST) Only the most recent of3 resultswithin the time period is included. TSH 3.750 0.270 - 4.200 uIU/mL 07/13/2024 11:15 AM EST [facility] Comment: Females: 1st trimester ? 0.150-4.000 ??IU/mL 2nd trimester ?? 0.310-4.170 ?IU/mL 3rd trimester ?0.380-4.150 ?IU/mL Blood Structure of peripheral vein / Unknown Venipuncture / Unknown 07/13/2024 10:20 AM EST 07/13/2024 10:29 AM EST us Magy Sawyer ENROLLMENT MANAGEMENT COORDINATOR LAB BLOOD ORDERABLES Final Res ult Performing Organization Address [facility] Co de Phone Number [facility] [address] [address], [place] [phone] * T4, Free (07/13/2024 10:20 AM EST) Free T4 1.24 0.80 - 1.80 ng/dL 07/13/2024 11:15 AM EST [facility] Comment: Females: (ng/dL) First Trimester ? [...] 10:20 AM EST 07/13/2024 10:29 AM EST Magy Sawyer NP LAB BLOOD ORDERABLES Final Res ult Performing Organization Address [facility] Co de Phone Number [facility] [address] [address], [place] [phone] * Lipid panel (07/13/2024 10:20 AM EST) Cholesterol 259 mg/dL 07/13/2024 11:15 AM EST [facility] Comment: DESIRABLE: <200 mg/dL BORDERLINE HIGH: 200-239 mg/dL HIGH: >239 mg/dL Triglycerides 123 mg/dL 07/13/2024 11:15 AM EST [facility] Comment: NORMAL: <150 mg/dL BORDERLINE HIGH: 150-199 mg/dL HIGH: 200-499 mg/dL VERY HIGH >499 mg/dL Cholesterol, HDL 72 mg/dL 07/13/19 11:15 AM EST [facility] Comment: DESIRABLE: >60 mg/dL BORDERLINE: 40-59 mg/dL UNDESIRABLE: <40 mg/dL LDL Cholesterol 162 mg/dL 11:15 AM EST [facility] Comment: OPTIMAL: <100 mg/dL NEAR OPTIMAL: <130 mg/dL BORDERLINE HIGH: 130-159 mg/dL HIGH: 160-189 mg/dL VERY HIGH: >189 mg/dL VLDL 24.6 mg/dL 07/13/2024 11:15 AM EST [facility] Cholesterol/HDL Ratio 3.6 07/13/2024 11:15 AM EST [facility] Blood Structure of peripheral vein / Unknown Venipuncture / Unknown 07/13/2024 10:20 AM EST 07/13/2024 10:29 AM EST us Magy Sawyer ENROLLMENT MANAGEMENT COORDINATOR LAB BLOOD ORDERABLES Final Res ult [facility] [address] [facility] [address] [place] [address], * (ABNORMAL) Comprehensive Metabolic Panel (07/13/2024 10:20 AM EST) Only the most recent of3 resultswithin the time period is included. NA 142 136 - 145 mmol/L 07/13/2024 11:15 AM EST [facility] K 4.6 3.5 - 5.1 mmol/L 07/13/2024 11:15 AM EST [facility] Cl 104 98 - 109 mmol/L 07/13/2024 11:15 AM EST [facility] CO2 28 22 - 32 mmol/L 07/13/2024 11:15 AM EST [facility] Anion Gap 15 >=0 07/13/2024 11:15 AM EST [facility] Glucose 94 60 - 99 mg/dL 07/13/2024 11:15 AM [facility] Creatinine 1.40(H) 0.50 - 1.12 mg/dL 07/13/2024 11:15 AM [facility] Calcium 9.4 8.4 - 10.4 mg/dL 07/13/2024 11:15 AM [facility] Total Protein 6.4(L) 6.6 - 8.7 g/dL 07/13/2024 11:15 AM [facility] Albumin 3.7 3.5 - 5.0 g/dL 07/13/2024 11:15 AM [facility] Bilirubin, Total 0.4 0.2 - 1.2 mg/dL 07/13/2024 11:15 AM [facility] Alkaline Phosphatase 113 40 - 129 U/L 07/13/2024 11:15 AM [facility] AST 25 0 - 33 U/L 07/13/2024 11:15 AM [facility] ALT 33 <=33 U/L 07/13/2024 11:15 AM [facility] BUN 20 8 - 23 mg/dL 07/13/2024 11:15 AM [facility] eGFR 40(L) >=60 mL/min/1. 73m2 07/13/2024 11:15 AM [facility] Comment:The estimated glomer ular [...] 2.1 - 4.2 g/dL 07/13/2024 11:15 AM [facility] A/G Ratio 1.4(L) 1.5 - 3.0 07/13/2024 11:15 AM EST [facility] Blood Structure of peripheral vein / Unknown Venipuncture / Unknown 07/13/2024 10:20 AM EST 07/13/2024 10:29 AM EST Magy Sawyer ENROLLMENT MANAGEMENT COORDINATOR LAB BLOOD ORDERABLES Final Res ult Performing Organization Address [facility] Co de Phone Number [facility] [address] [address], * (ABNORMAL) Microscopic Urinalysis Only (07/02/2024 9:17 AM EST) RBC, Urine 5-10(A) None Seen, 0-2 /HPF 07/02/2024 10:07 AM EST [facility] WBC, Urine 0-2 None Seen, 0-2 /HPF 07/02/2024 10:07 AM EST [facility] Squamous Epithelial Cells, Urine 0-2 /HPF 07/02/2024 10:07 AM EST [facility] Bacteria, Urine Occasional (A) None Seen /HPF 07/02/2024 10:07 AM EST [facility] Urine Urine specimen collection, clean catch / Unknown Non-Blood Collection / Unknown 07/02/2024 9:17 AM EST 07/02/2024 9:36 AM EST John Hendricks MD LAB URINE ORDERABLES Final Resul t Performing Organization Address [facility] Co de Phone Number [facility] [address] [address], [place] [phone] * (ABNORMAL) Urinalysis W/Reflex to Microscopic (No Culture) (07/02/2024 9:17 AM EST) Color, Urine Yellow Yellow 07/02/2024 9:44 AM EST [facility] Clarity, Urine Clear Clear 07/02/2024 9:44 AM EST [facility] Specific [place], Urine 1.015 1.005 - 1.030 07/02/2024 9:44 AM EST [facility] pH, Urine 5.5 5.0 - 8.0 07/02/2024 9:44 AM EST [facility] Protein, Urine Negative Negative mg/dL 07/02/2024 9:44 AM EST [facility] Glucose, Urine Negative Negative mg/dL 07/02/2024 9:44 AM EST [facility] Ketones, Urine Negative Negative mg/dL 07/02/2024 9:44 AM EST [facility] Bilirubin, Urine Negative Negative 07/02/2024 9:44 AM EST [facility] Blood, Urine Small(A) Negative 07/02/2024 9:44 AM EST [facility] LAB Nitrite, Urine Negative Negative 07/02/2024 9:44 AM EST [facility] Urobilinogen, Urine 0.2 0.2 - 1.0 E.U./dL 07/02/2024 9:44 AM EST [facility] Leukocyte Esterase, Urine Small(A) Negative 07/02/2024 9:44 AM EST [facility] Urine Urine specimen collection, clean catch / Unknown Non-Blood Collection / Unknown 07/02/2024 9:17 AM EST 07/02/2024 9:36 AM EST us John Hendricks MD LAB URINE ORDERABLES Final Resul t Performing Organization Address City/State/[facility] Co de Phone Number [facility] [address] [place] [address], * (ABNORMAL) SPEP (Protein Electrophoresis w/Reflex to Immunofixation) (07/02/2024 9:17 AM EST) Protein, Total 5.8(L) 6.1 - 8.1 g/dL 07/04/2024 8:59 AM EST [facility] Albumin 3.6(L) 3.8 - 4.8 g/dL 07/04/2024 [...] EST 07/02/2024 9:29 AM EST Narrative [facility] - 07/04/2024 8:59 AM EST [facility] Received Date: John Hendricks MD LAB BLOOD ORDERABLES Final Resul t [facility] [address] [facility] 3[address] Floor, [place] [address], * Hemoglobin and Hematocrit (07/02/2024 9:17 AM EST) Hemoglobin 12.0 11.7 - 15.5 g/dL 07/02/2024 9:38 AM EST [facility] Hematocrit 37.1 35.7 - 45.8 % 07/02/2024 9:38 AM EST [facility] Blood Structure of peripheral vein / Unknown Venipuncture / Unknown 07/02/2024 9:17 AM EST 07/02/2024 9:29 AM EST us John Hendricks MD LAB BLOOD ORDERABLES Final Resul t Performing Organization Address City/[facility]/ZIP Co de Phone Number [facility] [address] [address], [place] [phone] * Microalbumin, Random Urine with Creatinine (07/02/2024 9:17 AM EST) Creatinine, Urine 55 mg/dL 07/02/2024 2:41 PM EST [facility] Microalbumin, Urine 4 <=20 mg/L 07/02/2024 2:41 PM EST [facility] Microalb/Creat Ratio, Random Urine 7.3 1.3 - 30.0 mg/g 07/02/2024 2:41 PM EST [facility] Urine Voided urine specimen / Unknown Non-Blood Collection / Unknown 07/02/2024 9:17 AM EST 07/02/2024 9:36 AM EST us John Hendricks MD LAB URINE ORDERABLES Final Resul t Performing Organization Address [facility] Co de Phone Number [facility] [address] [address], [place] [phone] * Protein, Random Urine with Creatinine (07/02/2024 9:17 AM EST) Protein, Urine 6 mg/dL 07/02/2024 2:41 PM EST [facility] Creatinine, Urine 55 mg/dL 07/02/2024 2:41 PM EST [facility] Protein/Creati nine Ratio 109 <200 mg/gmCr 07/02/2024 2:41 PM EST [facility] Urine Voided urine specimen / Unknown Non-Blood Collection / Unknown 07/02/2024 9:17 AM EST 07/02/2024 9:36 AM EST us John Hendricks MD LAB URINE ORDERABLES Final Resul t [facility] [address] [address], * (ABNORMAL) Vitamin D, 25-Hydroxy, Total, Immunoassay (07/02/2024 9:17 AM EST) Only the most recent of2 resultswithin the time period is included. Vitamin D 25-OH 22.50(L) 30.00 - 80.00 ng/mL 07/02/2024 11:24 AM EST [facility] Blood Structure of peripheral vein / Unknown Venipuncture / Unknown 07/02/2024 9:17 AM EST 07/02/2024 9:29 AM EST us John Hendricks MD LAB BLOOD ORDERABLES Final Resul t Performing Organization Address [facility] Co de Phone Number [facility] [address] [place] [address], * (ABNORMAL) PTH, Intact (without Calcium) (07/02/2024 9:17 AM EST) [facility] Parathyroid Hormone, Intact 226.0(H) 14.5 - 87.1 pg/mL 07/02/2024 11:19 AM EST [facility] Comment: This test was [...] MD LAB BLOOD ORDERABLES Final Resul t [facility] [address] [address], * Magnesium (07/02/2024 9:17 AM EST) MG 1.9 1.5 - 2.5 mg/dL 07/02/2024 10:01 AM EST [facility] Blood Structure of peripheral vein / Unknown Venipuncture / Unknown 07/02/2024 9:17 AM EST 07/02/2024 9:29 AM EST John Hendricks MD LAB BLOOD ORDERABLES Final Resul t [facility] [address] [place] [address], * (ABNORMAL) Renal Function Panel (07/02/2024 9:17 AM EST) Pathologist [facility] NA 138 136 - 145 mmol/L 07/02/2024 10:02 AM EST [facility] K 4.4 3.5 - 5.1 mmol/L 07/02/2024 10:02 AM [facility] Comment:ALL DELTAS REVIEWED Cl 101 98 - 109 mmol/L 07/02/2024 10:02 AM EST [facility] CO2 26 22 - 32 mmol/L 07/02/2024 10:02 AM EST [facility] Anion Gap 15 >=0 07/02/2024 10:02 AM EST [facility] Glucose 115(H) 60 - 99 mg/dL 07/02/2024 10:02 AM EST [facility] BUN 37(H) 8 - 23 mg/dL 07/02/2024 10:02 AM [facility] Creatinine 1.47(H) 0.50 - 1.12 mg/dL 07/02/2024 10:02 AM EST [facility] Calcium 8.8 8.4 - 10.4 mg/dL 07/02/2024 10:02 AM EST [facility] Phosphorus 3.6 2.5 - 4.5 mg/dL 07/02/2024 10:02 AM [facility] Albumin 3.8 3.5 - 5.0 g/dL 07/02/2024 10:02 AM EST [facility] eGFR 38(L) >=60 mL/min/1. 73m2 07/02/2024 10:02 AM EST [facility] Comment:The estimated glomer ular [...] MD LAB BLOOD ORDERABLES Final Resul t [facility] [address] [place] [address] [address] [place] [address], * X-Ray Abdomen 1 View (06/26/2024 12:39 [...] obtain the completed interpretation. ? Workstation ID: [id number] Narrative 06/26/2024 2:05 PM EST EXAMINATION: ??XR ABDOMEN 1 VW INDICATION: RLQ abdominal pain, constipation COMPARISONS: None Resulting Agency Comment [id number] Procedure Note Calvin Katz MD - 06/26/2024 [...] possible to obtain thecompleted interpretation. Workstation ID: [id number] us Tia Oh ENROLLMENT MANAGEMENT COORDINATOR IMG XR PROCEDURES Final Result * (ABNORMAL) CBC (06/26/2024 6:22 AM EST) Only the most recent of5 resultswithin the time period is included. WBC 15.0(H) 4.8 - 10.8 10*3/uL 06/26/2024 6:42 AM [facility] RBC 4.51 4.20 - 5.40 10*6/uL 06/26/2024 6:42 AM EST [facility] Hemoglobin 13.1 11.7 - 15.5 g/dL 06/26/2024 6:42 AM [facility] Hematocrit 40.5 35.7 - 45.8 % 06/26/2024 6:42 AM EST [facility] MCV 89.8 81.0 - 99.0 fL 06/26/2024 6:42 AM EST [facility] MCH 29.0 26.0 - 34.0 pg 06/26/2024 6:42 AM [facility] MCHC 32.3 31.0 - 36.0 g/dL 06/26/2024 6:42 AM [facility] RDW 13.2 12.0 - 15.0 % 06/26/2024 6:42 AM [facility] Platelets 220 140 - 440 10*3/uL 06/26/2024 6:42 AM [facility] MPV 9.4 9.4 - 12.3 fL 06/26/2024 6:42 AM EST [facility] RDW Standard Deviation 43.5 36.4 - 46.3 fL 06/26/2024 6:42 AM EST [facility] Blood Structure of peripheral vein / Unknown Venipuncture / Unknown 06/26/2024 6:22 AM EST 06/26/2024 6:39 AM EST Olivia Arteaga NP LAB BLOOD ORDERABLES Final Result [facility] [address] [place] [address] [address] [place] [address], * ECG 12 lead (06/24/2024 9:50 AM EST) Only the most recent of4 resultswithin the time period is included. Ventricular Rate EKG 73 BPM MUSE EKG Atrial Rate 73 BPM MUSE EKG ME Interval 228 ms MUSE EKG QRS Interval 128 ms MUSE EKG QT Interval 384 ms MUSE EKG QTC Interval 423 ms MUSE EKG P [place] 65 degrees MUSE EKG R [place] 41 degrees MUSE EKG T Wave [place] 61 degrees MUSE EKG 06/24/2024 9:50 AM EST 06/24/2024 5:36 PM EST Impressions MUSE EKG - 06/24/2024 5:36 PM EST Sinus rhythm with 1st degree AV block with occasional premature ventricular complexes Nonspecific intraventricular block When compared with ECG of 21-JUN-2024 07:26, No significant change was found Confirmed by Stephanie Hampton ([id number]) on 06/24/2024 5:36:28 PM Olivia Arteaga ENROLLMENT MANAGEMENT COORDINATOR ECG ORDERABLES Final Resul t MUSE EKG * (ABNORMAL) Potassium (06/23/2024 10:05 AM EST) K 5.6(H) 3.5 - 5.1 mmol/L 06/23/2024 10:58 AM EST [facility] Comment:REVIEWED Blood Structure of peripheral vein / Unknown Venipuncture / Unknown 06/23/2024 10:05 AM EST 06/23/2024 10:36 AM EST Narrative [facility] - 06/23/2024 10:58 AM EST Please check heparinized potassium, TY. us Sdyney David NP LAB BLOOD ORDERABLES Final Result Performing Organization Address City/[facility]/ZIP Co de Phone Number [facility] [address] [address], [place] [phone] * Lavender Top (06/22/2024 6:53 AM EST) Only the most recent of2 resultswithin the time period is included. Extra Tube Hold for add-ons. 06/22/2024 11:05 AM EST [facility] Comment:Auto resulted. Blood Structure of peripheral vein / Unknown 06/22/2024 6:53 AM EST 06/22/2024 6:53 AM EST Mj Mendenhall MD LAB BLOOD ORDERABLES Final R esult Performing Organization Address City/[facility]/ZIP Co de Phone Number [facility] [address] [address], [place] [phone] * Troponin T, High Sensitivity (06/20/2024 10:19 AM EST) Only the most recent of3 resultswithin the time period is included. Troponin T High Sensitivity 14 6 - 14 ng/L 06/20/2024 11:08 AM EST [facility] Comment: Gn-Gaomaple-P level of 52 ng/L or higher at [...] be evaluated in line with the 4th Binger Definition of AMI. Troponin baseline and serial [...] ORDERABLES Final R esult Performing Organization Address City/[facility]/ZIP Co de Phone Number [facility] [address] [address], [place] [phone] * (ABNORMAL) Respiratory Culture (06/20/2024 7:37 AM EST) Respiratory Culture Moderate Rayna albicans(A) [facility] MANUAL 06/22/2024 11:29 AM EST [facility] Gram Stain Result <25 per LPF White Blood Cells Seen 06/22/2024 11:29 AM EST [facility] Gram Stain Result <10 per LPF Epithelial Cells 06/22/2024 11:29 AM EST [facility] Gram Stain Result Rare Gram Positive Cocci in pairs 06/22/2024 11:29 AM EST [facility] Sputum Sputum / Unknown Non-Blood Collection / Unknown 06/20/2024 7:37 AM EST 06/20/2024 7:54 AM EST Narrative [facility] - 06/22/2024 11:29 AM EST Many normal respiratory beena present. Rosanna Marie ENROLLMENT MANAGEMENT COORDINATOR LAB MICROBIOLOGY - GENERAL ORDER RHINA Final Result Performing Organization Address [facility]/ZIP Co de Phone Number [facility] [address] [address], [place] [phone] * Streptococcus Pneumoniae Antigen Urine (06/18/2024 6:44 PM EST) Streptococcus pneumoniae Antigen, Urine Negative Negative [facility] MANUAL 06/19/2024 8:53 AM EST [facility] Comment: INTERPRETATION: Presumptive negative [...] MD LAB URINE ORDERABLES Final R esult [facility] [address] [facility] [address] [place] [address], [place] [phone] * Legionella Antigen, Urine (06/18/2024 6:44 PM EST) Legionella pneumophila Urine Ag Negative Negative [facility] MANUAL 06/19/2024 8:53 AM EST [facility] Comment: INTERPRETATION: Presumptive negative [...] 6:44 PM EST 06/18/2024 7:15 PM EST [facility] - 06/19/2024 8:53 AM EST This [...] not detect other Legionella species or serogroups. us Mj Mendenhall MD LAB URINE ORDERABLES Final R esult [facility] [address] [place] [address], [place] [phone] * XR Chest Portable 1 View (06/18/2024 [...] obtain the completed interpretation. ? Workstation ID: [id number] Narrative 06/20/2024 10:17 AM EST EXAMINATION: XR CHEST PORTABLE 1 VIEW COMPARISON: CT chest pulmonary angiogram 06/15/2024 and other priors. FINDINGS: Lines/Tubes/Devices: None. Lungs: Redemonstrated left basilar consolidation. Pleura: No pleural effusions or pneumothorax. Heart/Mediastinum: Cardiomediastinal silhouette is similar to prior. Bones/Soft tissues: No acute osseous abnormality. Resulting Agency Comment [id number] Procedure Note Apolonia Nolen MD - 06/20/2024 [...] possible to obtain thecompleted interpretation. Workstation ID: [id number] us Tia Oh ENROLLMENT MANAGEMENT COORDINATOR IMG XR PROCEDURES Final Result * (ABNORMAL) CBC Auto Differential (06/17/2024 7:03 AM EST) Only the most recent of3 resultswithin the time period is included. WBC 11.6(H) 4.8 - 10.8 10*3/uL 06/17/2024 7:30 AM EST [facility] RBC 3.94(L) 4.20 - 5.40 10*6/uL 06/17/2024 7:30 AM EST [facility] Hemoglobin 11.7 11.7 - 15.5 g/dL 06/17/2024 7:30 AM [facility] Hematocrit 35.4(L) 35.7 - 45.8 % 06/17/2024 7:30 AM [facility] MCV 89.8 81.0 - 99.0 fL 06/17/2024 7:30 AM EST [facility] MCH 29.7 26.0 - 34.0 pg 06/17/2024 7:30 AM [facility] MCHC 33.1 31.0 - 36.0 g/dL 06/17/2024 7:30 AM [facility] RDW 12.9 12.0 - 15.0 % 06/17/2024 7:30 AM [facility] RDW Standard Deviation 42.6 36.4 - 46.3 fL 06/17/2024 7:30 AM [facility] Platelets 257 140 - 440 10*3/uL 06/17/2024 7:30 AM [facility] Comment:REV IEWED MPV 10.0 9.4 - 12.3 fL 06/17/2024 7:30 AM [facility] Neutrophil % 81.6(H) 50.0 - 75.0 % 06/17/2024 7:30 AM [facility] Immature Grans % 0.8 0.0 - 0.9 % 06/17/2024 7:30 AM [facility] Lymphocyte % 11.8(L) 20.0 - 44.0 % 06/17/2024 7:30 AM EST [facility] Monocyte % 5.6 0.0 - 14.0 % 06/17/2024 7:30 AM EST [facility] Eosinophil % 0.0 0.0 - 5.0 % 06/17/2024 7:30 AM EST [facility] Basophil % 0.2 0.0 - 2.0 % 06/17/2024 7:30 AM EST [facility] Neutrophil # 9.48(H) 1.80 - 7.70 10*3/uL 06/17/2024 7:30 AM EST [facility] Immature Grans # 0.09(H) 0.00 - 0.03 10*3/uL 06/17/2024 7:30 AM EST [facility] Lymphocyte # 1.40 1.00 - 4.75 10*3/uL 06/17/2024 7:30 AM EST [facility] Monocyte # 0.70(H) 0.00 - 0.60 10*3/uL 06/17/2024 7:30 AM EST [facility] Eosinophil # <0.03 0.00 - 0.80 10*3/uL 06/17/2024 7:30 AM EST [facility] Basophil # <0.03 0.00 - 0.20 10*3/uL 06/17/2024 7:30 AM EST [facility] nRBC % 0.0 0 - 0 /100 WBCs 06/17/2024 7:30 AM EST [facility] nRBC # <0.01 0.00 - 0.13 10*3/uL 06/17/2024 7:30 AM EST [facility] Blood Structure of peripheral vein / Unknown Venipuncture / Unknown 06/17/2024 7:03 AM EST 06/17/2024 7:22 AM EST us Mj Mendenhall MD LAB BLOOD ORDERABLES Final R esult Performing Organization Address City/State/[facility] Co de Phone Number [facility] [address] [address], * Light Green Top (06/16/2024 7:54 AM EST) Pathologist [facility] Extra Tube Hold for add-ons. 06/16/2024 12:05 PM EST [facility] Comment:Auto resulted. Blood Structure of peripheral vein / Unknown 06/16/2024 7:54 AM EST 06/16/2024 7:54 AM EST us Mj Mendenhall MD LAB BLOOD ORDERABLES Final R esult [facility] [address] [address], * Mycoplasma pneumoniae Antibodies, IgG/IgM (06/16/2024 7:42 AM EST) [facility] M. pneumoniae Ab, IgG <=0.90 <=0.90 06/19/2024 10:04 PM EST [facility] ([place]) Comment: ? Reference Range: ? <=0.90 [...] <770 U/mL 06/19/2024 10:04 PM EST [facility] ([place]) Comment: Reference Range: ?<770 U/ml ?Negative [...] EST 06/16/2024 7:53 AM EST Narrative [facility] - 06/19/2024 10:04 PM EST [facility] Received Date: us Mj Mendenhall MD LAB BLOOD ORDERABLES Final R esult [facility] [address] [place] [address] 3rd Floor, [place] [address], [employer] [facility]) [address] [place] [address], [place] * CT Chest PE (06/15/2024 11:49 [...] obtain the completed interpretation. ? Workstation ID: [id number] Up-to-date CT equipment and radiation dose reduction [...] possible to obtain thecompleted interpretation. Workstation ID: [id number] Up-to-date CT equipment and radiation dose reduction techniques wereemployed. CTDIvol: .8 - 21.4 mGy. DLP: 802 mGy-cm. us Kevin Newsome MD IMG CT PROCEDURES Final Result * Blood Culture (06/15/2024 10:17 PM EST) Only the most recent of2 resultswithin the time period is included. Pathologist [facility] Blood Culture No growth after 5 days 06/20/2024 11:05 PM EST [facility] Blood Structure of peripheral vein / Unknown Venipuncture / Unknown 06/15/2024 10:17 PM EST 06/15/2024 10:39 PM EST us Kevin Newsome MD LAB MICROBIOLOGY - GENERAL ORDER RHINA Final Result Performing Organization Address [facility] Co de Phone Number [address] [address], [place] [phone] * Lactic Acid, Plasma (06/15/2024 10:17 PM EST) [facility] Lactic Acid 0.7 0.5 - 2.2 mmol/L 06/15/2024 11:02 PM EST [facility] Blood Structure of peripheral vein / Unknown Venipuncture / Unknown 06/15/2024 10:17 PM EST 06/15/2024 10:31 PM EST us Kevin Newsome MD LAB BLOOD ORDERABLES Final Resul t Performing Organization Address [facility] Co de Phone Number [address] [address], [place] [phone] * (ABNORMAL) Blood gas, venous (06/15/2024 10:17 PM EST) pH, Venous 7.24(LL) 7.35 - 7.45 06/16/2024 2:54 AM EST [facility] [place] [facility] RT pCO2, Venous 57.0 mm[Hg] 06/16/2024 2:54 AM EST [facility] RT pO2, Keegan 138.0 mm[Hg] 06/16/2024 2:54 AM EST [facility] RT HCO3, Venous 22 mmol/L 06/16/2024 2:54 AM EST [facility] RT O2 Sat, Venous 97.8 % 06/16/2024 2:54 AM EST [facility] RT Base Excess, Keegan -3.6 mmol/L 06/16/2024 2:54 AM EST [facility] RT Blood Structure of peripheral vein / Unknown Venipuncture / Unknown 06/15/2024 10:17 PM EST 06/16/2024 2:52 AM EST us Kevin Newsome MD LAB BLOOD ORDERABLES Final Resul t [facility] [address] [place] [address], * COVID-19, Flu A/B & RSV RNA PCR, Symptomatic (06/15/2024 7:58 PM EST) PCR, SARS CoV-2 RNA Not Detected Not Detected [facility] [employer] 06/15/2024 8:48 PM EST [facility] Flu A RNA PCR Not Detected Not Detected [employer] 06/15/2024 8:48 PM EST [facility] Flu B RNA PCR Not Detected Not Detected [facility] [employer] 06/15/2024 8:48 PM EST [facility] RSV RNA PCR Not Detected Not Detected [employer] [employer] 06/15/2024 8:48 PM EST [facility] Comment: Limitations: This RSV test [...] PM EST 06/15/2024 8:09 PM EST Narrative [facility] - 06/15/2024 8:48 PM EST Methodology: The [employer] GeneXpert CoV-2/Flu/RSV plus assay is For Use Under an Emergency Use Authorization (EUA) Only with [email or web address]. The CoV-2/Flu/RSV plus assay is a [...] FLUIDS AND STOOLS O RDERABLES Final Result [facility] [address] [place] [address] [address] [place] [address], * HEART & VASCULAR - SCANNED (06/15/2024) [...] 0.49 mg/L FEU 06/03/2024 4:45 PM EST [facility] Comment:A D-DIMER VALUE OF < 0.50 ug/FEU/mL HAS A STRONG NEGATIVE PREDICTIVE VALUE FOR EXCLUSION OF PULMONARY EMBOLIC AND DEEP VEIN THROMBOSIS. CLINICAL CORRELATION IS INDICATED. Blood Structure of peripheral vein / Unknown Venipuncture / Unknown 06/03/2024 4:10 PM EST 06/03/2024 4:15 PM EST Calvin Fontenot MD LAB BLOOD ORDERABLES Final R esult [facility] [address] [place] [address], * [place] Lower Extremity Venous Left (06/03/2024 [...] obtain the completed interpretation. ? Workstation ID: [id number] Narrative 06/03/2024 3:48 PM EST EXAMINATION: US [...] identified behind the knee Resulting Agency Comment [id number] Procedure Note Sonny Valdivia MD - 06/03/2024 [...] possible to obtain thecompleted interpretation. Workstation ID: [id number] Calvin Fontenot MD IMG US PROCEDURES Final Resu lt * Rapid COVID-19, FLU A, FLU B & RSV RNA PCR, Symptomatic (ED ONLY) (06/03/2024 3:02 PM EST) Pathologist [facility] PCR, SARS CoV-2 RNA Not Detected Not Detected [employer] 06/03/2024 3:48 PM EST [facility] Flu A RNA PCR Not Detected Not Detected [employer] 06/03/2024 3:48 PM EST [facility] Flu B RNA PCR Not Detected Not Detected [employer] 06/03/2024 3:48 PM EST [facility] RSV RNA PCR Not Detected Not Detected [employer] 06/03/2024 3:48 PM EST [facility] Comment: Limitations: This RSV test [...] 3:02 PM EST 06/03/2024 3:06 PM EST [facility] - 06/03/2024 3:48 PM EST Methodology: The [employer] GeneXpert CoV-2/Flu/RSV plus assay is For Use Under an Emergency Use Authorization (EUA) Only with [email or web address]. The CoV-2/Flu/RSV plus assay is a [...] FLUIDS AND STOOLS O RDERABLES Final Result [facility] [address] [facility] [address] [place] [address], [place] [phone] * CT Lumbar Spine WO Contrast (06/02/2024 [...] obtain the completed interpretation. ? Workstation ID: [id number] Up-to-date CT equipment and radiation dose reduction techniques were employed. CTDIvol: 22.2 - 54.3 mGy. DLP: 3111 mGy-cm. ??The following accession numbers are related to this dose report [id number]: [id number] Narrative 06/02/2024 7:00 PM EST COMPARISON: None available. FINDINGS: There is no evidence of acute compression fracture. ??Alignment is maintained. ?? 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 ??Severe degenerative changes are seen most severe at L3-4. ??Paraspinous soft tissues are unremarkable. 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 Workstation ID: [id number] Up-to-date CT equipment and radiation dose reduction techniques wereemployed. CTDIvol: 22.2 - 54.3 mGy. DLP: 3111 mGy-cm. The followingaccession numbers are related to this dose report [id number]: [id number] Govind Glez MD IM CT PROCEDURES Final [...] obtain the completed interpretation. ? Workstation ID: [id number] Up-to-date CT equipment and radiation dose reduction techniques were employed. CTDIvol: 22.2 - 54.3 mGy. DLP: 3111 mGy-cm. ??The following accession numbers are related to this dose report [id number]: [id number] Up-to-date CT equipment and radiation dose reduction techniques were employed. CTDIvol: 22.2 - 54.3 mGy. DLP: 3111 mGy-cm. ??The following accession numbers are related to this dose report [id number]: [id number] Narrative 06/02/2024 6:31 PM EST COMPARISON: 04/28/2016. [...] are within normal limits. Resulting Agency Comment [id number] Procedure Note Luis Mayfiedl MD - 06/02/2024 COMPARISON: 04/28/2016. TECHNIQUE: 3D [...] possible to obtain thecompleted interpretation. Workstation ID: [id number] Up-to-date CT equipment and radiation dose reduction techniques wereemployed. CTDIvol: 22.2 - 54.3 mGy. DLP: 3111 mGy-cm. The followingaccession numbers are related to this dose report [id number]: [id number] Up-to-date CT equipment and radiation dose reduction techniques wereemployed. CTDIvol: 22.2 - 54.3 mGy. DLP: 3111 mGy-cm. The followingaccession numbers are related to this dose report [id number]: [id number] Govind Glez MD IM CT PROCEDURES Final [...] obtain the completed interpretation. ? Workstation ID: [id number] Up-to-date CT equipment and radiation dose reduction techniques were employed. CTDIvol: 22.2 - 54.3 mGy. DLP: 3111 mGy-cm. ??The following accession numbers are related to this dose report [id number]: [id number] Up-to-date CT equipment and radiation dose reduction techniques were employed. CTDIvol: 22.2 - 54.3 mGy. DLP: 3111 mGy-cm. ??The following accession numbers are related to this dose report [id number]: [id number] Narrative 06/02/2024 6:31 PM EST COMPARISON: 04/28/2016. [...] are within normal limits. Resulting Agency Comment [id number] Procedure Note Luis Mayfield MD - 06/02/2024 [...] possible to obtain thecompleted interpretation. Workstation ID: [id number] Up-to-date CT equipment and radiation dose reduction techniques wereemployed. CTDIvol: 22.2 - 54.3 mGy. DLP: 3111 mGy-cm. The followingaccession numbers are related to this dose report [id number]: [id number] Up-to-date CT equipment and radiation dose reduction techniques wereemployed. CTDIvol: 22.2 - 54.3 mGy. DLP: 3111 mGy-cm. The followingaccession numbers are related to this dose report [id number]: [id number] Govind Glez MD IMG CT PROCEDURES Final [...] were monitored continuously. The CFQ-160L Olympusserial # [id number] was introduced through the anus and advanced [...] Most Recently Relevant to Health Maintenance Insurance [facility] [place] [id number] Advance Directives Documents on File Type Date Recorded Patient Investment Recovery Technician Expl anation Advance Directive 08/06/2013 12:00 AM Adva nce Care Directives Advance Directive 07/26/2012 12:00 AM tona Me dical Dec Making (Adv.Dir) Advance Directive 01/15/2011 12:00 AM Adva nce Care Directives Advance Directive 01/10/2011 12:00 AM tona M edical Dec Making (Adv.Dir) * Full Code (Latest Code Status on File) Date Activated Date Inactivated Comments 06/16/2024 3:58 AM 06/26/2024 8:15 PM * Full Code Date Activated Date Inactivated Comments 06/03/2024 1:19 AM 06/04/2024 5:36 PM Care Teams Naval Gunfire Liaison Officer Relationship Specialty Start Date End Date Bijal Fox, ENROLLMENT MANAGEMENT COORDINATOR [address] [place] [id number] PCP - General Family Medicine 05/30/24
--- OUTSIDE RECORDS SUMMARY | 2024-07-31 15:48 | XMS_ITS | Encounter Summary ---
Author Organization [facility] Address [address] [place] [address] Care Team Providers Care Fish Boning Machine Feeder Name Role Phone Brandyn Pagan MD Primary Care Provider UnavailRadha Mas NP Unavailable Unavailable Unknown Pcp, Non [facility] Primary Care Provider Unava ilable Encounter Details Date Type Department Care Team (Late st Contact Info) Description 10/24/2016 Orders Only [address] [phone] Concha Bustillo PA [address] [place] [id number] Social History Tobacco Use Types Packs/Day Years [...] this encounter Procedures * Due to [place] [employer] law, this organization might not be sharing negative HIV tests. Procedure Name Priority Date/Time Associated Diagnosis Comments EKG-USE ONLY IN [facility]/OCC MED/CARDIO Routine 10/21/2016 4:41 PM EDT Acute pain of right shoulder documented in this encounter Results * Due to [place] [employer] law, this organization might not be sharing [...] shoulder documented in this encounter Care Teams Fish Boning Machine Feeder Relationship Specialty Start Date End Date Brandyn Pagan MD PCP - General Internal Medicine 08/07/15 02/02/17 Radha Spangler NP PCP - Backup PCP Internal Medicine 01/11/16 02/02/17 Unknown Pcp, Non [facility] PCP - General 02/03/17 documented as of this encounter
--- OUTSIDE RECORDS SUMMARY | 2024-07-31 15:48 | XMS_ITS | Encounter Summary ---
Author Organization [facility] Address [address] [place] [address] Care Team Providers Care Safety Administrator Name Role Phone Brandyn Pagan MD Primary Care Provider Unavaila Radha Fink NP Unavailable Unavailable Unknown Pcp, Non [facility] Primary Care Provider Unava ilable Encounter Details Date Type Department Care Team (Late st Contact Info) Description 06/09/2016 Orders Only [facility] [address] [place] [address] Radha Spangler NP Social History Tobacco Use [...] in this encounter Results * Due to [facility] law, this organization might not be [...] approximately 13% higher for people identified as -Honduran. GFR 42(L) > OR = 60 mL/min/1. [...] needs for GFR calculation. Resulting Agency Comment [id number] us Radha Spangler NP LABORATORY Final Result Performing Organization Address [facility] Co de Phone Number [facility] [address] [place] [address] * ALANINE AMINOTRANSFERASE (ALT), SERUM (06/09/2016 11:23 AM EST) ALT (SGPT) 25 6 - 29 U/L [facility] 06/09/2016 11:2 3 AM EST 06/09/2016 4:58 PM EST Narrative Resulting Agency Comment [id number] Radha Spangler NP LAB SAME DAY RESULT Final Re sult Performing Organization Address [facility] de Phone Number [facility] [address] [place] [address] * (ABNORMAL) LIPID PANEL WITH REFLEX TO [...] 4:58 PM EST Narrative Resulting Agency Comment [id number] us Radha Spangler NP LABORATORY Final Result Performing Organization Address [facility] Co de Phone Number [facility] [address] [place] [address] documented in this encounter Visit Diagnoses Diagnosis Hyperlipidemia, unspecified hyperlipidemia type Essential hypertension with goal blood pressure less than 140/90 documented in this encounter Care Teams Safety Administrator Relationship Specialty Start Date End Date Brandyn Pagan MD PCP - General Internal Medicine 08/07/15 02/02/17 Radha Spangler NP PCP - Backup PCP Internal Medicine 01/11/16 02/02/17 Unknown Pcp, Non [facility] PCP - General 02/03/17 documented as of this encounter
--- OUTSIDE RECORDS SUMMARY | 2024-07-31 15:48 | XMS_ITS | Referral Summary ---
Author Organization [facility] Address [address] [place] [address] Care Team Providers Care Head Bucker Name Role Phone Bijal Fox NP Primary Care Provider [phone] Encounters Date Type Department Care Team Description 07/31/2024 12:09 PM EDT Hospital Encounter [facility] XRay [address] [place] [address] Sonny Reed MD Pain 07/31/2024 10:15 AM EDT Hospital Encounter [facility] Spine Procedure [facility] [address] [place] [address] Sonny Reed MD Chronic left shoulder pain (Primary Dx); Left shoulder pain, unspecified chronicity 07/22/2024 11:08 AM EST - 07/22/2024 11:59 PM EST Hospital Encounter [facility] XRay [address] [place] [address] Acute pain of left shoulder Discharge Disposition: Home or Self Care () 07/22/2024 11:15 AM EST Office Visit [facility] [address] [place] [address] Marvin, AYAD Gil Primary osteoarthritis of left shoulder (Primary Dx); Rotator cuff tear arthropathy of left shoulder 07/20/2024 Orders Only [facility] Draw Site Department [address] [place] [address] Magy Sawyer NP Swelling of limb (Primary Dx) 07/19/2024 12:10 PM EST Lab [facility] Site Department [address] [place] [phone] Swelling of lower extremity (Primary Dx); Urinary tract infection without hematuria, site unspecified 07/16/2024 Lab Requisition [facility] Lab [address] [place] [address] Bijal Fox, MEY Urinary tract infection, site not specified 07/16/2024 Orders Only [facility] Site Department [address] [place] [address] Bijal Fox, EDUCATION PROFESSIONAL Urinary tract infection without hematuria, site unspecified (Primary Dx) 07/16/2024 10:45 AM EST - 07/16/2024 11:59 PM EST Hospital Encounter [facility] Xray Department [address] [place] [address] Heart failure, unspecified HF chronicity, unspecified heart failure type (HCC) Discharge Disposition: Home or Self Care (01) 07/13/2024 10:30 AM EST Lab [facility] Site Department [address] [place] [address] Heart failure, unspecified HF chronicity, unspecified heart failure type (HCC) (Primary Dx); Hyperlipidemia, unspecified hyperlipidemia type; 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 Orders Only [facility] Lab [address] [place] [address] Magy Sawyer NP Hyperlipidemia, unspecified hyperlipidemia type (Primary Dx); 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/03/2024 Telephone [facility] Case Management Department [address] [place] [address] Mariajose Calvillo RN 07/03/2024 2:30 PM EST Office Visit [address] Cardiology [address] [place] [address] Mabel Onofre NP Diastolic heart failure, unspecified HF chronicity (HCC) (Primary Dx); Paroxysmal atrial fibrillation (HCC); Pulmonary hypertension (HCC); BILLIE (obstructive sleep apnea); Benign hypertensive heart disease without congestive heart failure 07/02/2024 10:05 AM EST Lab [facility] Site Department [address] [place] [address] 07/01/2024 3:15 PM EST Office Visit [facility] Nephrology [address] [facility], 2nd [place] [address] John Hendricks MD Hyperkalemia (Primary Dx); CKD stage 3a, GFR 45-59 ml/min (HCC); Chronic heart failure with preserved ejection fraction (HCC); Primary hypertension 07/01/2024 9:05 AM EST Lab [facility] Site Department [address] [place] [phone] Diastolic heart failure, unspecified HF chronicity (HCC) 07/01/2024 Orders Only [address] Cardiology [address] [place] [address] Mabel Onofre NP 06/15/2024 7:35 PM EST - 06/26/2024 6:09 PM EST Hospital Encounter [facility] [address] [address] Kevin Newsome MD Devineni, Praveen, MD Pneumonia of left lung due to infectious organism, unspecified part of lung (Primary Dx); Acute hypoxic respiratory failure (HCC) Discharge Disposition: Home with Services (06) 06/24/[address] Cardiology [address] [place] [address] Elise Boykin MA TCM 06/23/2024 Lab Requisition [facility] Lab [address] [place] [address] Mj Mendenhall MD Pneumonia due to other specified infectious organisms 06/02/2024 12:57 PM EST - 06/04/2024 3:30 PM EST Emergency [facility] [address] [address] Govind Glez MD Cebula, Maria, MD Colucci, MD Zulma Kramer Joshua T, MD Nesanelis, MD Sonny Generalized weakness (Primary Dx) Discharge Disposition: Intermediate Facility (03) from Last 3 Months Allergies Active Allergy Reactions Criticality Noted Date Comments Lansoprazole Indigestion Medium Iaygute-Are-Ppl Reductase Inhibitors Muscle Pain Medium Per pt [...] discontinued tomorrow. Repeat BMP Diastolic CHF, acute ([facility]/HCC) 06/19/2024 Assessment & Plan (06/24/2024 1:48 PM [...] on admission by SpO2 88% requiring 3-4L EDUCATION PROFESSIONAL. Tachypnea with RR increased to 22 RPM. She is not home-O2 dependent. -Wean supplemental O2 as tolerated, presently om room air -Taper steroids -Continue supportive therapy with nebulized bronchodilators, ICS and multiple antitussives. -Avoid increasing Tramadol in setting of COPD/asthma. Assessment & Plan (06/23/2024 4:18 PM EST): Acute Resp Failure: Evidenced on admission by SpO2 88% requiring 3-4L EDUCATION PROFESSIONAL. Tachypnea with RR increased to 22 RPM. She is not home-O2 dependent. Presently weaned to 2L EDUCATION PROFESSIONAL, but still coarse with rhonchus cough. Reduced IV steroids as no wheezing on exam and she appears tearful and depressed. Continue supportive therapy with nebulized bronchodilators, ICS and multiple antitussives. Avoid increasing Tramadol in setting of COPD/asthma. Assessment & Plan (06/22/2024 5:42 PM EST): Acute Resp Failure: Evidenced on admission by SpO2 88% requiring 3-4L EDUCATION PROFESSIONAL. Tachypnea with RR increased to 22 RPM. She is not home-O2 dependent. Presently weaned to 2L EDUCATION PROFESSIONAL, but still coarse with rhonchus cough. Reduced [...] auth. Fall precautions Ambulate with assistance A-fib ([facility]) 06/03/2024 Assessment & Plan (06/25/2024 12:39 PM [...] e alcohol) [facility] Utilities Answer Date Recorded In the past [...] Encounters Date Type Department Care Team ([facility] Contact Info) Description 08/01/2024 2:00 PM EDT Follow-Up [facility] Nephrology 100 [facility] [address] [place] [address] John Hendricks MD 123 [facility] [address] [place] [address] 09/18/2024 11:00 AM EDT Follow-Up [facility] [address] [place] [address] MarvinJeffery PA [address] [place] [address] 01/08/2025 10:00 AM EDT Follow-Up [facility] 100 [facility] Cardiology 100 [facility] [address] [place] [address] Mabel Onofre NP 100 [facility] [address] [place] [address] Procedures * Due to [place] state law, this organization might not be [...] to Health Maintenance Results * Due to [place] state law, this organization might not be [...] Patient's understanding of procedure matches consent: Yes [place] Protocol: ? Procedure consent matches procedure scheduled: [...] patient discharged from clinic in stable condition us Sonny Reed MD IN CLINIC/BEDSIDE ORDERABLES F [...] obtain the completed interpretation. ? Workstation ID: [id number] Narrative 07/22/2024 1:20 PM EST COMPARISON: ??There are no prior studies available for comparison at this time. ?? FINDINGS AND Resulting Agency Comment [id number] Procedure Note Rupali Barrios MD - 07/22/2024 [...] possible to obtain thecompleted interpretation. Workstation ID: [id number] us Jeffery LION IMG XR PROCEDURES Final Result * N-terminal ProBrain Natriuretic Peptide - [facility] & MEM/UNV/Nicole Only (07/19/2024 10:59 AM EST) Only the most recent of7 resultswithin the time period is included. Pro-B-Type Natriuretic Peptide 281 <=900 pg/mL 07/19/2024 11:43 AM EST [facility] Comment: RULE IN CHF >/= [...] EST 07/19/2024 11:17 AM EST Magy Sawyer EDUCATION PROFESSIONAL LAB BLOOD ORDERABLES Final Res ult Performing Organization Address City/[facility]/ZIP Co de Phone Number [facility] [address] [place] [address], [place] [phone] * Urine Culture, Routine (07/19/2024 10:59 AM EST) Only the most recent of2 resultswithin the time period is included. Pathologist [facility] Urine Culture <10,000 CFU/mL mixed gram positives; multiple organisms are present, suggestive of contamination at the time of collection. [place] MAN[facility] 07/20/2024 8:13 AM EST [facility] Urine Urine specimen collection, clean catch / Unknown Non-Blood Collection / Unknown 07/19/2024 10:59 AM EST 07/19/2024 11:16 AM EST Bijal Fox EDUCATION PROFESSIONAL LAB MICROBIOLOGY - GENERAL ORDJim CALHOUN Final Result Performing Organization Address City/[facility]/ZIP Co de Phone Number [facility] [address] [place] [address], [place] [phone] * (ABNORMAL) Basic Metabolic Panel (07/19/2024 10:59 AM EST) Only the most recent of12 resultswithin the time period is included. NA 142 136 - 145 mmol/L 07/19/2024 11:41 AM EST [facility] K 4.0 3.5 - 5.1 mmol/L 07/19/2024 11:41 AM EST [facility] Cl 103 98 - 109 mmol/L 07/19/2024 11:41 AM EST [facility] CO2 29 22 - 32 mmol/L 07/19/2024 11:41 AM EST [facility] BUN 22 8 - 23 mg/dL 07/19/2024 11:41 AM EST [facility] Creatinine 1.42(H) 0.50 - 1.12 mg/dL 07/19/2024 11:41 AM EST [facility] Glucose 108(H) 60 - 99 mg/dL 07/19/2024 11:41 AM EST [facility] Calcium 8.9 8.4 - 10.4 mg/dL 07/19/2024 11:41 AM EST [facility] Anion Gap 14 >=0 07/19/2024 11:41 AM EST [facility] eGFR 39(L) >=60 mL/min/1. 73m2 07/19/2024 11:41 AM EST [facility] Comment:The estimated glomer ular filtration [...] 07/19/2024 11:17 AM EST us Magy Sawyer EDUCATION PROFESSIONAL LAB BLOOD ORDERABLES Final Res ult [facility] [address] [facility] [address] [place] [address], * X-Ray Chest 2 Views (07/16/2024 11:04 [...] obtain the completed interpretation. ? Workstation ID: [id number] Narrative 07/17/2024 8:14 AM EST COMPARISON: ??06/22/2024 FINDINGS AND Resulting Agency Comment [id number] Procedure Note Calvin Katz MD - 07/17/2024 COMPARISON: 06/22/2024 FINDINGS AND IMPRESSION: No change. Heart normal. Lungs and pleural spaces clear. Cervical spinefusion hardware noted. If this radiology report contains a blank impression section, it is anincomplete radiology report. Please contact the interpreting radiologistor applicable radiology division as soon as possible to obtain thecompleted interpretation. Workstation ID: [id number] Magy Sawyer NP IMG XR PROCEDURES Final Result * TSH (07/13/2024 10:20 AM EST) Only the most recent of3 resultswithin the time period is included. TSH 3.750 0.270 - 4.200 uIU/mL 07/13/2024 11:15 AM EST [facility] Comment: Females: 1st trimester ? 0.150-4.000 ??IU/mL 2nd trimester ?? 0.310-4.170 ?IU/mL 3rd trimester ?0.380-4.150 ?IU/mL Blood Structure of peripheral vein / Unknown Venipuncture / Unknown 07/13/2024 10:20 AM EST 07/13/2024 10:29 AM EST Magy Sawyer NP LAB BLOOD ORDERABLES Final Res ult Performing Organization Address [facility] de Phone Number [facility] [address] [address], * T4, Free (07/13/2024 10:20 AM EST) Free T4 1.24 0.80 - 1.80 ng/dL 07/13/2024 11:15 AM EST [facility] Comment: Females: (ng/dL) First Trimester [...] ORDERABLES Final Res ult Performing Organization Address [facility] Co de Phone Number [facility] [address] [address], [place] [phone] * Lipid panel (07/13/2024 10:20 AM EST) Cholesterol 259 mg/dL 07/13/2024 11:15 AM EST [facility] Comment: DESIRABLE: <200 mg/dL BORDERLINE HIGH: 200-239 mg/dL HIGH: >239 mg/dL Triglycerides 123 mg/dL 07/13/2024 11:15 AM EST [facility] Comment: NORMAL: <150 mg/dL BORDERLINE HIGH: 150-199 mg/dL HIGH: 200-499 mg/dL VERY HIGH >499 mg/dL Cholesterol, HDL 72 mg/dL 07/13/19 11:15 AM EST [facility] Comment: DESIRABLE: >60 mg/dL BORDERLINE: 40-59 mg/dL UNDESIRABLE: <40 mg/dL LDL Cholesterol 162 mg/dL 11:15 AM EST [facility] Comment: OPTIMAL: <100 mg/dL NEAR OPTIMAL: <130 mg/dL BORDERLINE HIGH: 130-159 mg/dL HIGH: 160-189 mg/dL VERY HIGH: >189 mg/dL VLDL 24.6 mg/dL 07/13/2024 11:15 AM EST [facility] Cholesterol/HDL Ratio 3.6 07/13/2024 11:15 AM EST [facility] Blood Structure of peripheral vein / Unknown Venipuncture / Unknown 07/13/2024 10:20 AM EST 07/13/2024 10:29 AM EST us Magy Sawyer EDUCATION PROFESSIONAL LAB BLOOD ORDERABLES Final Res ult [facility] [address] [facility] [address] [place] [address], [place] [phone] * (ABNORMAL) Comprehensive Metabolic Panel (07/13/2024 10:20 AM EST) Only the most recent of3 resultswithin the time period is included. NA 142 136 - 145 mmol/L 07/13/2024 11:15 AM EST [facility] K 4.6 3.5 - 5.1 mmol/L 07/13/2024 11:15 AM EST [facility] Cl 104 98 - 109 mmol/L 07/13/2024 11:15 AM EST [facility] CO2 28 22 - 32 mmol/L 07/13/2024 11:15 AM EST [facility] Anion Gap 15 >=0 07/13/2024 11:15 AM EST [facility] Glucose 94 60 - 99 mg/dL 07/13/2024 11:15 AM EST [facility] Creatinine 1.40(H) 0.50 - 1.12 mg/dL 07/13/2024 11:15 AM [facility] Calcium 9.4 8.4 - 10.4 mg/dL 07/13/2024 11:15 AM [facility] Total Protein 6.4(L) 6.6 - 8.7 g/dL 07/13/2024 11:15 AM [facility] Albumin 3.7 3.5 - 5.0 g/dL 07/13/2024 11:15 AM [facility] Bilirubin, Total 0.4 0.2 - 1.2 mg/dL 07/13/2024 11:15 AM [facility] Alkaline Phosphatase 113 40 - 129 U/L 07/13/2024 11:15 AM [facility] AST 25 0 - 33 U/L 07/13/2024 11:15 AM [facility] ALT 33 <=33 U/L 07/13/2024 11:15 AM [facility] BUN 20 8 - 23 mg/dL 07/13/2024 11:15 AM [facility] eGFR 40(L) >=60 mL/min/1. 73m2 07/13/2024 11:15 AM [facility] Comment:The estimated glomer ular filtration [...] 2.1 - 4.2 g/dL 07/13/2024 11:15 AM [facility] A/G Ratio 1.4(L) 1.5 - 3.0 07/13/2024 11:15 AM [facility] Blood Structure of peripheral vein / Unknown Venipuncture / Unknown 07/13/2024 10:20 AM EST 07/13/2024 10:29 AM EST Magy Sawyer NP LAB BLOOD ORDERABLES Final Res ult Performing Organization Address [facility] de Phone Number [facility] [address] [place] [address], * (ABNORMAL) Microscopic Urinalysis Only (07/02/2024 9:17 AM EST) RBC, Urine 5-10(A) None Seen, 0-2 /HPF 07/02/2024 10:07 AM EST [facility] WBC, Urine 0-2 None Seen, 0-2 /HPF 07/02/2024 10:07 AM EST [facility] Squamous Epithelial Cells, Urine 0-2 /HPF 07/02/2024 10:07 AM EST [facility] Bacteria, Urine Occasional (A) None Seen /HPF 07/02/2024 10:07 AM EST [facility] Urine Urine specimen collection, clean catch / Unknown Non-Blood Collection / Unknown 07/02/2024 9:17 AM EST 07/02/2024 9:36 AM EST John Hendricks MD LAB URINE ORDERABLES Final Resul t Performing Organization Address [facility] Co de Phone Number [facility] [address] [place] [address], [place] [phone] * (ABNORMAL) Urinalysis W/Reflex to Microscopic (No Culture) (07/02/2024 9:17 AM EST) Color, Urine Yellow Yellow 07/02/2024 9:44 AM EST [facility] Clarity, Urine Clear Clear 07/02/2024 9:44 AM EST [facility] Specific [place], Urine 1.015 1.005 - 1.030 07/02/2024 9:44 AM EST [facility] pH, Urine 5.5 5.0 - 8.0 07/02/2024 9:44 AM EST [facility] Protein, Urine Negative Negative mg/dL 07/02/2024 9:44 AM EST [facility] Glucose, Urine Negative Negative mg/dL 07/02/2024 9:44 AM EST [facility] Ketones, Urine Negative Negative mg/dL 07/02/2024 9:44 AM EST [facility] Bilirubin, Urine Negative Negative 07/02/2024 9:44 AM EST [facility] Blood, Urine Small(A) Negative 07/02/2024 9:44 AM EST [facility] Nitrite, Urine Negative Negative 07/02/2024 9:44 AM EST [facility] Urobilinogen, Urine 0.2 0.2 - 1.0 E.U./dL 07/02/2024 9:44 AM EST [facility] Leukocyte Esterase, Urine Small(A) Negative 07/02/2024 9:44 AM EST [facility] Urine Urine specimen collection, clean catch / Unknown Non-Blood Collection / Unknown 07/02/2024 9:17 AM EST 07/02/2024 9:36 AM EST us John Hendricks MD LAB URINE ORDERABLES Final Resul t Performing Organization Address City/State/[facility] Co de Phone Number [facility] [address] [place] [address], * (ABNORMAL) SPEP (Protein Electrophoresis w/Reflex to Immunofixation) (07/02/2024 9:17 AM EST) Protein, Total 5.8(L) 6.1 - 8.1 g/dL 07/04/2024 8:59 AM EST [email or web address] Albumin 3.6(L) 3.8 - 4.8 g/dL 07/04/2024 8:59 AM EST [email or web address] Alpha 1 Globulin 0.3 0.2 - 0.3 [...] ORDERABLES Final Resul t HILARY DAVID [address] [facility] 3[address], [place] [address], [place] [phone] * Hemoglobin and Hematocrit (07/02/2024 9:17 AM EST) Hemoglobin 12.0 11.7 - 15.5 g/dL 07/02/2024 9:38 AM EST [facility] Hematocrit 37.1 35.7 - 45.8 % 07/02/2024 9:38 AM EST [facility] Blood Structure of peripheral vein / Unknown Venipuncture / Unknown 07/02/2024 9:17 AM EST 07/02/2024 9:29 AM EST us John Hendricks MD LAB BLOOD ORDERABLES Final Resul t Performing Organization Address City/[facility]/ZIP Co de Phone Number [facility] [address] [address], [place] [phone] * Microalbumin, Random Urine with Creatinine (07/02/2024 9:17 AM EST) Creatinine, Urine 55 mg/dL 07/02/2024 2:41 PM EST [facility] Microalbumin, Urine 4 <=20 mg/L 07/02/2024 2:41 PM EST [facility] Microalb/Creat Ratio, Random Urine 7.3 1.3 - 30.0 mg/g 07/02/2024 2:41 PM EST [facility] Urine Voided urine specimen / Unknown Non-Blood Collection / Unknown 07/02/2024 9:17 AM EST 07/02/2024 9:36 AM EST us John Hendricks MD LAB URINE ORDERABLES Final Resul t Performing Organization Address [facility] Co de Phone Number [facility] [address] [address], [place] [phone] * Protein, Random Urine with Creatinine (07/02/2024 9:17 AM EST) Protein, Urine 6 mg/dL 07/02/2024 2:41 PM EST [facility] Creatinine, Urine 55 mg/dL 07/02/2024 2:41 PM EST [facility] Protein/Creati nine Ratio 109 <200 mg/gmCr 07/02/2024 2:41 PM EST [facility] Urine Voided urine specimen / Unknown Non-Blood Collection / Unknown 07/02/2024 9:17 AM EST 07/02/2024 9:36 AM EST us John Hendricks MD LAB URINE ORDERABLES Final Resul t Performing Organization Address City/[facility]/ZIP Co de Phone Number [facility] [address] [address], [place] [phone] * (ABNORMAL) Vitamin D, 25-Hydroxy, Total, Immunoassay (07/02/2024 9:17 AM EST) Only the most recent of2 resultswithin the time period is included. Vitamin D 25-OH 22.50(L) 30.00 - 80.00 ng/mL 07/02/2024 11:24 AM EST [facility] Blood Structure of peripheral vein / Unknown Venipuncture / Unknown 07/02/2024 9:17 AM EST 07/02/2024 9:29 AM EST us John Hendricks MD LAB BLOOD ORDERABLES Final Resul t Performing Organization Address [facility] de Phone Number [address] [address], * (ABNORMAL) PTH, Intact (without Calcium) (07/02/2024 9:17 AM EST) [facility] Parathyroid Hormone, Intact 226.0(H) 14.5 - 87.1 pg/mL 07/02/2024 11:19 AM EST [facility] Comment: This test was performed [...] Resul t Performing Organization Address [facility] Co de Phone Number [facility] [address] [place] [address], * Magnesium (07/02/2024 9:17 AM EST) MG 1.9 1.5 - 2.5 mg/dL 07/02/2024 10:01 AM EST [facility] Blood Structure of peripheral vein / Unknown Venipuncture / Unknown 07/02/2024 9:17 AM EST 07/02/2024 9:29 AM EST John Hendricks MD LAB BLOOD ORDERABLES Final Resul t [facility] [address] [place] [address] [address] [place] [address], * (ABNORMAL) Renal Function Panel (07/02/2024 9:17 AM EST) NA 138 136 - 145 mmol/L 07/02/2024 10:02 AM EST [facility] K 4.4 3.5 - 5.1 mmol/L 07/02/2024 10:02 AM EST [facility] Comment:ALL DELTAS REVIEWED Cl 101 98 - 109 mmol/L 07/02/2024 10:02 AM EST [facility] CO2 26 22 - 32 mmol/L 07/02/2024 10:02 AM EST [facility] Anion Gap 15 >=0 07/02/2024 10:02 AM EST [facility] Glucose 115(H) 60 - 99 mg/dL 07/02/2024 10:02 AM [facility] BUN 37(H) 8 - 23 mg/dL 07/02/2024 10:02 AM EST [facility] Creatinine 1.47(H) 0.50 - 1.12 mg/dL 07/02/2024 10:02 AM EST [facility] Calcium 8.8 8.4 - 10.4 mg/dL 07/02/2024 10:02 AM EST [facility] Phosphorus 3.6 2.5 - 4.5 mg/dL 07/02/2024 10:02 AM [facility] Albumin 3.8 3.5 - 5.0 g/dL 07/02/2024 10:02 AM EST [facility] eGFR 38(L) >=60 mL/min/1. 73m2 07/02/2024 10:02 AM EST [facility] Comment:The estimated glomer ular filtration [...] ORDERABLES Final Resul t Performing Organization Address City/State/[facility] Co de Phone Number [facility] [address] [place] [address], * X-Ray Abdomen 1 View (06/26/2024 12:39 [...] obtain the completed interpretation. ? Workstation ID: [id number] Narrative 06/26/2024 2:05 PM EST EXAMINATION: ??XR ABDOMEN 1 VW INDICATION: RLQ abdominal pain, constipation COMPARISONS: None Resulting Agency Comment [id number] Procedure Note Calvin Katz MD - 06/26/2024 [...] possible to obtain thecompleted interpretation. Workstation ID: [id number] us Tia Oh EDUCATION PROFESSIONAL IMG XR PROCEDURES Final Result * (ABNORMAL) CBC (06/26/2024 6:22 AM EST) Only the most recent of5 resultswithin the time period is included. WBC 15.0(H) 4.8 - 10.8 10*3/uL 06/26/2024 6:42 AM [facility] RBC 4.51 4.20 - 5.40 10*6/uL 06/26/2024 6:42 AM [facility] Hemoglobin 13.1 11.7 - 15.5 g/dL 06/26/2024 6:42 AM [facility] Hematocrit 40.5 35.7 - 45.8 % 06/26/2024 6:42 AM [facility] MCV 89.8 81.0 - 99.0 fL 06/26/2024 6:42 AM [facility] MCH 29.0 26.0 - 34.0 pg 06/26/2024 6:42 AM [facility] MCHC 32.3 31.0 - 36.0 g/dL 06/26/2024 6:42 AM [facility] RDW 13.2 12.0 - 15.0 % 06/26/2024 6:42 AM [facility] Platelets 220 140 - 440 10*3/uL 06/26/2024 6:42 AM [facility] MPV 9.4 9.4 - 12.3 fL 06/26/2024 6:42 AM [facility] RDW Standard Deviation 43.5 36.4 - 46.3 fL 06/26/2024 6:42 AM EST [facility] Blood Structure of peripheral vein / Unknown Venipuncture / Unknown 06/26/2024 6:22 AM EST 06/26/2024 6:39 AM EST Olivia Arteaga NP LAB BLOOD ORDERABLES Final Result [address] [address], [place] [phone] * ECG 12 lead (06/24/2024 9:50 AM EST) Only the most recent of4 resultswithin the time period is included. Ventricular Rate EKG 73 BPM MUSE EKG Atrial Rate 73 BPM MUSE EKG ME Interval 228 ms MUSE EKG QRS Interval 128 ms MUSE EKG QT Interval 384 ms MUSE EKG QTC Interval 423 ms MUSE EKG P [place] 65 degrees MUSE EKG R [place] 41 degrees MUSE EKG T Wave [place] 61 degrees MUSE EKG 06/24/2024 9:50 AM EST 06/24/2024 5:36 PM EST Impressions MUSE EKG - 06/24/2024 5:36 PM EST Sinus rhythm with 1st degree AV block with occasional premature ventricular complexes Nonspecific intraventricular block When compared with ECG of 21-JUN-2024 07:26, No significant change was found Confirmed by Stephanie Hampton ([id number]) on 06/24/2024 5:36:28 PM Olivia Arteaga EDUCATION PROFESSIONAL ECG ORDERABLES Final Resul t MUSE EKG * (ABNORMAL) Potassium (06/23/2024 10:05 AM EST) K 5.6(H) 3.5 - 5.1 mmol/L 06/23/2024 10:58 AM EST [facility] Comment:REVIEWED Blood Structure of peripheral vein / Unknown Venipuncture / Unknown 06/23/2024 10:05 AM EST 06/23/2024 10:36 AM EST Narrative [facility] - 06/23/2024 10:58 AM EST Please check heparinized potassium, TY. Sydney David NP LAB BLOOD ORDERABLES Final Result Performing Organization Address [facility]/ZIP Co de Phone Number [facility] [address] [address], [place] [phone] * Lavender Top (06/22/2024 6:53 AM EST) Only the most recent of2 resultswithin the time period is included. Extra Tube Hold for add-ons. 06/22/2024 11:05 AM EST [facility] Comment:Auto resulted. Blood Structure of peripheral vein / Unknown 06/22/2024 6:53 AM EST 06/22/2024 6:53 AM EST Mj Mendenhall MD LAB BLOOD ORDERABLES Final R esult Performing Organization Address City/[facility]/ZIP Co de Phone Number [facility] [address] [address], [place] [phone] * Troponin T, High Sensitivity (06/20/2024 10:19 AM EST) Only the most recent of3 resultswithin the time period is included. Troponin T High Sensitivity 14 6 - 14 ng/L 06/20/2024 11:08 AM EST [facility] Comment: Vv-Amutfxgb-G level of 52 ng/L or higher at [...] be evaluated in line with the [place]th [place] Definition of AMI. Troponin baseline and [...] ORDERABLES Final R esult Performing Organization Address City/[facility]/ZIP Co de Phone Number [facility] [address] [address], [place] [phone] * (ABNORMAL) Respiratory Culture (06/20/2024 7:37 AM EST) Respiratory Culture Moderate Rayna albicans(A) [place] MANUAL 06/22/2024 11:29 AM EST [facility] Gram Stain Result <25 per LPF White Blood Cells Seen 06/22/2024 11:29 AM EST [facility] Gram Stain Result <10 per LPF Epithelial Cells 06/22/2024 11:29 AM EST [facility] Gram Stain Result Rare Gram Positive Cocci in pairs 06/22/2024 11:29 AM EST [facility] Sputum Sputum / Unknown Non-Blood Collection / Unknown 06/20/2024 7:37 AM EST 06/20/2024 7:54 AM EST Narrative [facility] - 06/22/2024 11:29 AM EST Many normal respiratory beena present. Rosanna Oh EDUCATION PROFESSIONAL LAB MICROBIOLOGY - GENERAL ORDER RHINA Final Result Performing Organization Address City/[facility]/ZIP Co de Phone Number [facility] [address] [address], [place] [phone] * Streptococcus Pneumoniae Antigen Urine (06/18/2024 6:44 PM EST) Streptococcus pneumoniae Antigen, Urine Negative Negative [facility] MANUAL 06/19/2024 8:53 AM EST [facility] Comment: INTERPRETATION: Presumptive negative for [...] MD LAB URINE ORDERABLES Final R esult [facility] [address] [place] [address], [place] [phone] * Legionella Antigen, Urine (06/18/2024 6:44 PM EST) Legionella pneumophila Urine Ag Negative Negative [facility] MANUAL 06/19/2024 8:53 AM EST [facility] Comment: INTERPRETATION: Presumptive negative for [...] 6:44 PM EST 06/18/2024 7:15 PM EST [facility] - 06/19/2024 8:53 AM EST [...] MD LAB URINE ORDERABLES Final R esult [facility] [address] [place] [address], [place] [phone] * XR Chest Portable 1 View (06/18/2024 [...] obtain the completed interpretation. ? Workstation ID: [id number] Narrative 06/20/2024 10:17 AM EST EXAMINATION: XR CHEST PORTABLE 1 VIEW COMPARISON: CT chest pulmonary angiogram 06/15/2024 and other priors. FINDINGS: Lines/Tubes/Devices: None. Lungs: Redemonstrated left basilar consolidation. Pleura: No pleural effusions or pneumothorax. Heart/Mediastinum: Cardiomediastinal silhouette is similar to prior. Bones/Soft tissues: No acute osseous abnormality. Resulting Agency Comment [id number] Procedure Note Apolonia Nolen MD - 06/20/2024 [...] possible to obtain thecompleted interpretation. Workstation ID: [id number] us Tia Oh EDUCATION PROFESSIONAL IMG XR PROCEDURES Final Result * (ABNORMAL) CBC Auto Differential (06/17/2024 7:03 AM EST) Only the most recent of3 resultswithin the time period is included. WBC 11.6(H) 4.8 - 10.8 10*3/uL 06/17/2024 7:30 AM EST [facility] RBC 3.94(L) 4.20 - 5.40 10*6/uL 06/17/2024 7:30 AM EST [facility] Hemoglobin 11.7 11.7 - 15.5 g/dL 06/17/2024 7:30 AM [facility] Hematocrit 35.4(L) 35.7 - 45.8 % 06/17/2024 7:30 AM [facility] MCV 89.8 81.0 - 99.0 fL 06/17/2024 7:30 AM EST [facility] MCH 29.7 26.0 - 34.0 pg 06/17/2024 7:30 AM [facility] MCHC 33.1 31.0 - 36.0 g/dL 06/17/2024 7:30 AM [facility] RDW 12.9 12.0 - 15.0 % 06/17/2024 7:30 AM [facility] RDW Standard Deviation 42.6 36.4 - 46.3 fL 06/17/2024 7:30 AM [facility] Platelets 257 140 - 440 10*3/uL 06/17/2024 7:30 AM [facility] Comment:REV IEWED MPV 10.0 9.4 - 12.3 fL 06/17/2024 7:30 AM [facility] Neutrophil % 81.6(H) 50.0 - 75.0 % 06/17/2024 7:30 AM [facility] Immature Grans % 0.8 0.0 - 0.9 % 06/17/2024 7:30 AM [facility] Lymphocyte % 11.8(L) 20.0 - 44.0 % 06/17/2024 7:30 AM [facility] Monocyte % 5.6 0.0 - 14.0 % 06/17/2024 7:30 AM EST [facility] Eosinophil % 0.0 0.0 - 5.0 % 06/17/2024 7:30 AM EST [facility] Basophil % 0.2 0.0 - 2.0 % 06/17/2024 7:30 AM EST [facility] Neutrophil # 9.48(H) 1.80 - 7.70 10*3/uL 06/17/2024 7:30 AM EST [facility] Immature Grans # 0.09(H) 0.00 - 0.03 10*3/uL 06/17/2024 7:30 AM EST [facility] Lymphocyte # 1.40 1.00 - 4.75 10*3/uL 06/17/2024 7:30 AM EST [facility] Monocyte # 0.70(H) 0.00 - 0.60 10*3/uL 06/17/2024 7:30 AM EST [facility] Eosinophil # <0.03 0.00 - 0.80 10*3/uL 06/17/2024 7:30 AM EST [facility] Basophil # <0.03 0.00 - 0.20 10*3/uL 06/17/2024 7:30 AM EST [facility] nRBC % 0.0 0 - 0 /100 WBCs 06/17/2024 7:30 AM EST [facility] nRBC # <0.01 0.00 - 0.13 10*3/uL 06/17/2024 7:30 AM EST [facility] Blood Structure of peripheral vein / Unknown Venipuncture / Unknown 06/17/2024 7:03 AM EST 06/17/2024 7:22 AM EST us Mj Mendenhall MD LAB BLOOD ORDERABLES Final R esult [facility] [address] [place] [address], * Light Green Top (06/16/2024 7:54 AM EST) Pathologist [facility] Extra Tube Hold for add-ons. 06/16/2024 12:05 PM EST [facility] Comment:Auto resulted. Blood Structure of peripheral vein / Unknown 06/16/2024 7:54 AM EST 06/16/2024 7:54 AM EST Mj Mendenhall MD LAB BLOOD ORDERABLES Final R esult [facility] [address] [place] [address], * Mycoplasma pneumoniae Antibodies, IgG/IgM (06/16/2024 7:42 AM EST) [facility] M. pneumoniae Ab, IgG <=0.90 <=0.90 06/19/2024 10:04 PM EST [employer] [facility]AN (DERICK) Comment: ? Reference Range: ? <=0.90 ? [...] 72 <770 U/mL 06/19/2024 10:04 PM EST [employer] [facility] (SEPULVEDA) Comment: Reference Range: ?<770 U/ml ?Negative [...] ORDERABLES Final R esult HILARY DAVID [address] [place] [address] 3rd Floor, [place] [address], [facility] [employer] [address] [place] [address], [place] * CT Chest PE (06/15/2024 11:49 [...] obtain the completed interpretation. ? Workstation ID: [id number] Up-to-date CT equipment and radiation dose reduction [...] possible to obtain thecompleted interpretation. Workstation ID: [id number] Up-to-date CT equipment and radiation dose reduction techniques wereemployed. CTDIvol: .8 - 21.4 mGy. DLP: 802 mGy-cm. us Kevin Newsome MD IMG CT PROCEDURES Final Result * Blood Culture (06/15/2024 10:17 PM EST) Only the most recent of2 resultswithin the time period is included. Blood Culture No growth after 5 days 06/20/2024 11:05 PM EST [facility] Blood Structure of peripheral vein / Unknown Venipuncture / Unknown 06/15/2024 10:17 PM EST 06/15/2024 10:39 PM EST us Kevin Newsome MD LAB MICROBIOLOGY - GENERAL ORDER RHINA Final Result Performing Organization Address City/[facility] Co de Phone Number [address] [address], [place] [phone] * Lactic Acid, Plasma (06/15/2024 10:17 PM EST) Pathologist [facility] Lactic Acid 0.7 0.5 - 2.2 mmol/L 06/15/2024 11:02 PM EST [facility] Blood Structure of peripheral vein / Unknown Venipuncture / Unknown 06/15/2024 10:17 PM EST 06/15/2024 10:31 PM EST us Kevin Newsome MD LAB BLOOD ORDERABLES Final Resul t Performing Organization Address [facility] Co de Phone Number [address] [address], [place] [phone] * (ABNORMAL) Blood gas, venous (06/15/2024 10:17 PM EST) pH, Venous 7.24(LL) 7.35 - 7.45 06/16/2024 2:54 AM EST [facility] RT pCO2, Venous 57.0 mm[Hg] 06/16/2024 2:54 AM EST [facility] RT pO2, Keegan 138.0 mm[Hg] 06/16/2024 2:54 AM EST [facility] RT HCO3, Venous 22 mmol/L 06/16/2024 2:54 AM EST [facility] RT O2 Sat, Venous 97.8 % 06/16/2024 2:54 AM EST [facility] RT Base Excess, Keegan -3.6 mmol/L 06/16/2024 2:54 AM EST [facility] RT Blood Structure of peripheral vein / Unknown Venipuncture / Unknown 06/15/2024 10:17 PM EST 06/16/2024 2:52 AM EST us Kevin Newsome MD LAB BLOOD ORDERABLES Final Resul t [facility] RT [address] [place] [address], * COVID-19, Flu A/B & RSV RNA PCR, Symptomatic (06/15/2024 7:58 PM EST) PCR, SARS CoV-2 RNA Not Detected Not Detected [employer] 06/15/2024 8:48 PM EST [facility] Flu A RNA PCR Not Detected Not Detected [employer] 06/15/2024 8:48 PM EST [facility] Flu B RNA PCR Not Detected Not Detected [employer] 06/15/2024 8:48 PM EST [facility] RSV RNA PCR Not Detected Not Detected [employer] 06/15/2024 8:48 PM EST [facility] Comment: Limitations: This RSV [...] PM EST 06/15/2024 8:09 PM EST Narrative [facility] - 06/15/2024 8:48 PM EST Methodology: The Celcuity GeneXpert CoV-2/Flu/RSV plus assay is For Use Under an Emergency Use Authorization (EUA) Only with [employer]. The CoV-2/Flu/RSV plus assay is a [...] FLUIDS AND STOOLS O RDERABLES Final Result [facility] [address] [place] [address], [place] [phone] * HEART & VASCULAR - SCANNED (06/15/2024) [...] Estimated 70 % EF 2D 70 % [facility] RV TISSUE DOPPLER S' 11.0 cm/s [...] 0.49 mg/L FEU 06/03/2024 4:45 PM EST [facility] Comment:A D-DIMER VALUE OF < 0.50 ug/FEU/mL HAS A STRONG NEGATIVE PREDICTIVE VALUE FOR EXCLUSION OF PULMONARY EMBOLIC AND DEEP VEIN THROMBOSIS. CLINICAL CORRELATION IS INDICATED. Blood Structure of peripheral vein / Unknown Venipuncture / Unknown 06/03/2024 4:10 PM EST 06/03/2024 4:15 PM EST Calvin Fontenot MD LAB BLOOD ORDERABLES Final R esult [facility] [address] [place] [address], [place] [phone] * [place] Lower Extremity Venous Left (06/03/2024 [...] obtain the completed interpretation. ? Workstation ID: [id number] Narrative 06/03/2024 3:48 PM EST EXAMINATION: US [...] identified behind the knee Resulting Agency Comment [id number] Procedure Note Sonny Valdivia MD - 06/03/2024 [...] possible to obtain thecompleted interpretation. Workstation ID: [id number] Calvin Fontenot MD IMG US PROCEDURES Final Resu lt * Rapid COVID-19, FLU A, FLU B & RSV RNA PCR, Symptomatic (ED ONLY) (06/03/2024 3:02 PM EST) Pathologist [facility] PCR, SARS CoV-2 RNA Not Detected Not Detected [employer] 06/03/2024 3:48 PM EST [facility] Flu A RNA PCR Not Detected Not Detected [employer] 06/03/2024 3:48 PM EST [facility] Flu B RNA PCR Not Detected Not Detected CEPID GENEXPERT 06/03/2024 3:48 PM EST [facility] RSV RNA PCR Not Detected Not Detected [employer] 06/03/2024 3:48 PM EST [facility] Comment: Limitations: This RSV [...] 3:02 PM EST 06/03/2024 3:06 PM EST [facility] - 06/03/2024 3:48 PM EST Methodology: The Celcuity GeneXpert CoV-2/Flu/RSV plus assay is For Use Under an Emergency Use Authorization (EUA) Only with [employer]. The CoV-2/Flu/RSV plus assay is a [...] FLUIDS AND STOOLS O RDERABLES Final Result [facility] [address] [place] [address], [place] [phone] * CT Lumbar Spine WO Contrast (06/02/2024 [...] obtain the completed interpretation. ? Workstation ID: [id number] Up-to-date CT equipment and radiation dose reduction techniques were employed. CTDIvol: 22.2 - 54.3 mGy. DLP: 3111 mGy-cm. ??The following accession numbers are related to this dose report [id number]: [id number] Narrative 06/02/2024 7:00 PM EST COMPARISON: None available. FINDINGS: There is no evidence of acute compression fracture. ??Alignment is maintained. ?? 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 ??Severe degenerative changes are seen most severe at L3-4. ??Paraspinous soft tissues are unremarkable. ??Incidental 1.5 cm splenic artery aneurysm Resulting Agency Comment [id number] Procedure Note Luis Mayfield MD - 06/02/2024 [...] possible to obtain thecompleted interpretation. Workstation ID: [id number] Up-to-date CT equipment and radiation dose reduction techniques wereemployed. CTDIvol: 22.2 - 54.3 mGy. DLP: 3111 mGy-cm. The followingaccession numbers are related to this dose report [id number]: [id number] Govind Glez MD IMG CT PROCEDURES Final [...] obtain the completed interpretation. ? Workstation ID: [id number] Up-to-date CT equipment and radiation dose reduction techniques were employed. CTDIvol: 22.2 - 54.3 mGy. DLP: 3111 mGy-cm. ??The following accession numbers are related to this dose report [id number]: [id number] Up-to-date CT equipment and radiation dose reduction techniques were employed. CTDIvol: 22.2 - 54.3 mGy. DLP: 3111 mGy-cm. ??The following accession numbers are related to this dose report [id number]: [id number] Narrative 06/02/2024 6:31 PM EST COMPARISON: 04/28/2016. [...] are within normal limits. Resulting Agency Comment [id number] Procedure Note Luis Mayfield MD - 06/02/2024 [...] possible to obtain thecompleted interpretation. Workstation ID: [id number] Up-to-date CT equipment and radiation dose reduction techniques wereemployed. CTDIvol: 22.2 - 54.3 mGy. DLP: 3111 mGy-cm. The followingaccession numbers are related to this dose report [id number]: [id number] Up-to-date CT equipment and radiation dose reduction techniques wereemployed. CTDIvol: 22.2 - 54.3 mGy. DLP: 3111 mGy-cm. The followingaccession numbers are related to this dose report [id number]: [id number] Govind Glez MD IM CT PROCEDURES Final [...] obtain the completed interpretation. ? Workstation ID: [id number] Up-to-date CT equipment and radiation dose reduction techniques were employed. CTDIvol: 22.2 - 54.3 mGy. DLP: 3111 mGy-cm. ??The following accession numbers are related to this dose report [id number]: [id number] Up-to-date CT equipment and radiation dose reduction techniques were employed. CTDIvol: 22.2 - 54.3 mGy. DLP: 3111 mGy-cm. ??The following accession numbers are related to this dose report [id number]: [id number] Narrative 06/02/2024 6:31 PM EST COMPARISON: 04/28/2016. [...] are within normal limits. Resulting Agency Comment [id number] Procedure Note Luis Mayfield MD - 06/02/2024 [...] possible to obtain thecompleted interpretation. Workstation ID: [id number] Up-to-date CT equipment and radiation dose reduction techniques wereemployed. CTDIvol: 22.2 - 54.3 mGy. DLP: 3111 mGy-cm. The followingaccession numbers are related to this dose report [id number]: [id number] Up-to-date CT equipment and radiation dose reduction techniques wereemployed. CTDIvol: 22.2 - 54.3 mGy. DLP: 3111 mGy-cm. The followingaccession numbers are related to this dose report [id number]: [id number] Govind Glez MD IMG CT PROCEDURES Final [...] were monitored continuously. The [id number] Olympusserial # [id number] was introduced through the anus and advanced [...] Most Recently Relevant to Health Maintenance Insurance 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
--- OUTSIDE RECORDS SUMMARY | 2024-07-31 15:48 | XMS_ITS | Clinical Summary ---
Author Organization [facility] [employer] [facility] linShotSpotter Address [address] [place] [address] Care Team Providers Care Die Stamper Name Role Phone Pcp, No Primary Care Provider [phone] Social History Tobacco Use Types Packs/Day Years [...] Adults 18 yrs or above (or HM Modifier)([facility]) 1969 Hepatitis C Virus Infection in Adolescents and Adults: Screening (or Modifier) ([facility]) 1969 SDOH Screening Reminder: Corry ivy for all adults ([facility]) 1969 Tobacco Smoking Cessation: i n Adults excluding Women: Behavioral and Pharmacotherapy Interventions ([facility]) 1969 DTaP/Tdap/Td Vaccines ([facility]) (1 - Tdap) 1970 Colorectal Cancer Screening 45 -75 Yrs (or HM Modifier ) 1996 Colorectal Cancer: FLEXIBLE SIGMOIDOSCOPY Screening every 5 yrs 1996 Colorectal Cancer: Fecal Imm unochemical Test (FIT) Annually [facility] 1996 Colorectal Cancer: High-sens itivity gFOBT Screening Annually [facility] 1996 Colorectal Cancer: Stool Col oguard Screening every 3 yrs 1996 Colorectal Cancer:CT Colonography Screening every 5 yr s 1996 Lipid Screening: Every 5 yrs for Women aged 45+ (or HM Modifier) ([facility]) 1997 Breast Cancer: Screening Corry ually age 50-74 yrs (or HM Modifier)([facility]) 2001 Zoster/Shingles Vaccine Seri es Screening: Adults aged 18+ yrs (or HM Modifiers)([facility]) (1 of 2) 2001 Osteoporosis Screening to Pr event Fractures: Women aged 65 years+ ([facility]) 2016 Pneumococcal Vaccination Scr eening: Patients 65+ yrs of age ([facility]) (1 of 1 - PCV) 2016 Flu Vaccination: Ages 65+: Y early High Dose Recommended (or Modifier)([facility]) 12/21/2023 COVID-19 Vaccine Screening: Initial Series and Booster Status ([facility]) ( - 2023-25 season) 2024 RSV Vaccines (1 - 1-dose 75+ series) 2026 [employer] Not on file Insurance Care Teams Die Stamper Relationship Specialty Start Date End Date Pcp, Mayte PCP - General Family Medicine 08/15/20
--- OUTSIDE RECORDS SUMMARY | 2024-07-31 15:48 | XMS_ITS | Encounter Summary ---
Author Organization [facility] Address [address] [place] [address] Care Team Providers Care Terrazzo Polisher Helper Name Role Phone Brandyn Pagan MD [...] chronicity Brandyn Pagan MD [place], Peter J [address] [place] [address] Phone: tel: fax: Referral ID Status Reason Start Date Expiration Date V isits Requested Visits Authorized [id number] Closed Chiropractor 01/27/2017 05/21/2017 1 1 Encounter Details Date Type Department Care Team (Late st Contact Info) Description 01/27/2017 Orders Only [facility] [address] [place] [id number] Brandyn Pagan MD Social History Tobacco Use [...] chronicity documented in this encounter Care Teams Terrazzo Polisher Helper Relationship Specialty Start Date End Date Brandyn Pagan MD PCP - General Internal Medicine 08/07/15 02/02/17 Radha Spangler NP PCP - Backup PCP Internal Medicine 01/11/16 02/02/17 Unknown Pcp, Non Rmg PCP - General 02/03/17 documented as of this encounter
--- OUTSIDE RECORDS SUMMARY | 2024-07-31 15:48 | XMS_ITS | Encounter Summary ---
Author Organization [facility] Address [address] [place] [address] Care Team Providers Care Cloth Shrinking Tester Name Role Phone Brandyn Pagan MD Primary Care Provider Radha Cuevas NP Unavailable Unavailable Unknown Pcp, Non Rmg Primary Care Provider Unava ilable Encounter Details Date Type Department Care Team (Late st Contact Info) Description 06/21/2016 Orders Only [facility] [address] [place] [address] Brandyn Pagan MD Social History Tobacco Use [...] of this encounter Procedures * Due to [place] Ele.me law, this organization might not be sharing negative HIV tests. Procedure Name Priority Date/Time Associated Diagnosis Comments URINALYSIS, DIP ONLY STAT (All results called to provider) 06/21/2016 11:17 AM EST Frequent urination CULTURE, URINE, ROUTINE Routine 06/21/2016 10:35 AM EST Frequent urination URINALYSIS, MICROSCOPIC Routine 06/21/2016 10:35 AM EST Frequent urination documented in this encounter Results * Due to [place] Ele.me law, this organization might not be sharing negative HIV tests. * URINALYSIS, DIP ONLY ( SITE STAT ONLY) (06/21/2016 11:17 AM EST) COLOR (URINE) YELLOW [facility] (CLIA# [id number]) APPEARANCE (URINE) CLEAR Clear [facility] (CLIA# [id number]) SPECIFIC GRAVITY 1.020 1.001 - 1.035 [facility] (CLIA# [id number]) PH (URINE) 6.0 5.0 - 8.0 [facility] (CLIA# [id number]) PROTEIN (URINE) NEGATIVE Neg [facility] (CLIA# [id number]) GLUCOSE (URINE) NEGATIVE Neg [facility] (CLIA# [id number]) Ketones (Urine) NEGATIVE Neg [facility] (CLIA# [id number]) BILIRUBIN (URINE) NEGATIVE Neg [facility] (CLIA# [id number]) BLOOD (URINE) NEGATIVE Neg [facility] (CLIA# [id number]) Leukocyte esterase (Urine) NEGATIVE Neg [facility] (CLIA# [id number]) NITRITE (URINE) NEGATIVE Neg [facility] (CLIA# [id number]) Urine specimen (specimen) 06/21/2016 11:17 AM EST Narrative [facility] (CLIA# [id number]) - 06/21/2016 11:17 AM EST Micro and culture already ordered by provider. us Brandyn Pagan MD LAB SAME DAY RESULT Final Resul t [facility] (CLIA# [id number]) [address] [place] [address] * CULTURE, URINE, ROUTINE (06/21/2016 10:35 AM EST) Bacteria culture (Urine) SEE NOTE [facility] Comment: ??CULTURE, URINE, ROUTINE ??MICRO NUMBER: ?[id number] ??TEST STATUS: ? FINAL ??SPECIMEN SOURCE: ?? URINE ??SPECIMEN QUALITY: ??ADEQUATE ??RESULT: ?Multiple organisms present, each less than 10,000 ? CFU/mL. These organisms, commonly found on ? external and internal genitalia, are considered ? to be colonizers. No further testing performed. 06/21/2016 10:3 5 AM EST 06/21/2016 4:50 PM EST Narrative Resulting Agency Comment [id number] Brandyn Pagan MD LABORATORY Final Result Performing Organization Address [facility] de Phone Number [facility] [address] [place] [address] * URINALYSIS, MICROSCOPIC (06/21/2016 10:35 AM EST) [...] 4:50 PM EST Narrative Resulting Agency Comment [id number] Brandyn Pagan MD LAB SAME DAY RESULT Final Resul t Performing Organization Address [facility] de Phone Number [facility] [address] [place] [address] documented in this encounter Visit Diagnoses Diagnosis Frequent urination Urinary frequency documented in this encounter Care Teams Cloth Shrinking Tester Relationship Specialty Start Date End Date Brandyn Pagan MD PCP - General Internal Medicine 08/07/15 02/02/17 Radha Spangler NP PCP - Backup PCP Internal Medicine 01/11/16 02/02/17 Unknown Pcp, Non [facility]mg PCP - General 02/03/17 documented as of this encounter
--- OUTSIDE RECORDS SUMMARY | 2024-07-31 15:48 | XMS_ITS | Encounter Summary ---
Author Organization [facility] Address [address] [place] [address] Care Team Providers Care Section Supervisor Name Role Phone Brandyn Pagan MD Primary Care Provider Unavaila Radha Fink NP Unavailable Unavailable Unknown Pcp, Non Rmg Primary Care Provider Unava ilable Encounter Details Date Type Department Care Team (Late st Contact Info) Description 04/08/2016 Orders Only [facility] [address] [place] [address] Radha Spangler NP Social History Tobacco Use [...] this encounter Procedures * Due to [place] HTP law, this organization might not be sharing [...] this encounter Results * Due to [place] HTP law, this organization might not be sharing negative HIV tests. * (ABNORMAL) CULTURE, URINE, ROUTINE (04/08/2016 12:17 PM EST) Bacteria culture (Urine) SEE NOTE(A) [facility] Comment: {CULTURE, URINE, ROUTINE {[id number]) ??CULTURE, URINE, ROUTINE ??MICRO NUMBER: ?[id number] ??TEST STATUS: ? FINAL ??SPECIMEN SOURCE: ?? [...] 7:00 PM EST Narrative Resulting Agency Comment [id number] Radha Spangler NP LABORATORY Final Result [facility] [address] [place] [address] * (ABNORMAL) URINALYSIS, COMPLETE INCLUDES DIPSTICK AND MICROSCOPIC (04/08/2016 12:17 PM EST) Color (Urine) YELLOW YELLOW [facility] Comment:{COLOR {[id number]) Appearance (Urine) CLEAR CLEAR [facility] Comment:{APPEARANCE {[id number]) Specific gravity (Urine) 1.019 1.001 - 1.035 [facility] Comment:{SPECIFIC GRAVITY {[id number]) pH (Urine) 6.5 5.0 - 8.0 [facility] Comment:{PH {[id number]) Glucose (Urine) NEGATIVE NEGATIVE [facility] Comment:{GLUCOSE {[id number]) Bilirubin (Urine) NEGATIVE NEGATIVE [facility] Comment:{BILIRUBIN {[id number]) Ketones (Urine) NEGATIVE NEGATIVE [facility] Comment:{KETONES {[id number]) Hemoglobin (Urine) NEGATIVE NEGATIVE [facility] Comment:{OCCULT BLOOD {[id number]) Protein (Urine) NEGATIVE NEGATIVE [facility] Comment:{PROTEIN {[id number]) Nitrite (Urine) NEGATIVE NEGATIVE [facility] Comment:{NITRITE {[id number]) Leukocyte esterase (Urine) TRACE(A) NEGATIVE [facility] Comment:{LEUKOCYTE ESTERASE {[id number]) WBC (Urine) 0-5 < OR = 5 /HPF [facility] Comment:{WBC {[id number]) RBC (Urine Sed) NONE SEEN < OR = 2 /HPF [facility] Comment:{RBC {[id number]) Epithelial cells.squamous (Urine sed) 0-5 < OR = 5 /HPF [facility] Comment:{SQUAMOUS EPITHELIAL CELLS {[id number]) Bacteria (Urine) NONE SEEN NONE SEEN /HPF [facility] Comment:{BACTERIA {[id number]) Hyaline casts (Urine sed) NONE SEEN NONE SEEN /LPF [facility] Comment:{HYALINE CAST {[id number]) 04/08/2016 12:1 7 PM EST 04/08/2016 7:00 PM EST Narrative Resulting Agency Comment [id number] Radha Spangler TOLL BOOTH OPERATOR LAB SAME DAY RESULT Final Re sult [facility] [address] [place] [address] * HEPATIC FUNCTION PANEL (ALT,AST,ALK PH,BILI'S,TP,ALB) (04/08/2016 12:17 PM EST) Protein Total (Serum) 6.1 6.1 - 8.1 g/dL [facility] Comment:{PROTEIN, TOTAL {[id number]) Albumin 4.2 3.6 - 5.1 g/dL [facility] Comment:{ALBUMIN {[id number]) Globulin 1.9 1.9 - 3.7 g/dL (calc) [facility] Comment:{GLOBULIN {[id number]) Albumin/Globulin 2.2 1.0 - 2.5 (calc) [facility] Comment:{ALBUMIN/GLOBULIN RA LANA {[id number]) Bilirubin Total 0.3 0.2 - 1.2 mg/dL [facility] Comment:{BILIRUBIN, TOTAL {[id number]) Bilirubin Direct 0.1 < OR = 0.2 mg/dL [facility] Comment:{BILIRUBIN, DIRECT { [id number]) Bilirubin Indirect 0.2 0.2 - 1.2 mg/dL (calc) [facility] Comment:{BILIRUBIN, INDIRECT {[id number]) Alkaline phosphatase 111 33 - 130 U/L [facility] Comment:{ALKALINE PHOSPHATAS E {[id number]) AST (SGOT) 21 10 - 35 U/L [facility] Comment:{AST {[id number]) ALT (SGPT) 22 6 - 29 U/L [facility] Comment:{ALT {[id number]) 04/08/2016 12:1 7 PM EST 04/08/2016 7:00 PM EST Narrative Resulting Agency Comment [id number] Radha Spangler NP LABORATORY Final Result Performing Organization Address City/[facility]/ZIP Co de Phone Number [facility] [address] [place] [address] * CREATINE KINASE (CK), SERUM (04/08/2016 12:17 PM EST) CPK 133 29 - 143 U/L [facility] Comment:{CREATINE KINASE, TO KENZIE {[id number]) 04/08/2016 12:1 7 PM EST 04/08/2016 7:00 PM EST Narrative Resulting Agency Comment [id number] Radha Spangler NP LAB SAME DAY RESULT Final Re sult Performing Organization Address City/[facility]/ZIP Co de Phone Number [facility] [address] [place] [address] * (ABNORMAL) BASIC METABOLIC PANEL WITH (GFR) (04/08/2016 12:17 PM EST) Glucose 101(H) 65 - 99 mg/dL [facility] Comment: {GLUCOSE {[id number]) ? Fasting reference interval Urea Nitrogen Blood (BUN) 37(H) 7 - 25 mg/dL [facility] Comment:{UREA NITROGEN (BUN) {[id number]) Creatinine 1.13(H) 0.50 - 0.99 mg/dL [facility] Comment: {CREATININE {[id number]) For patients >49 years of age, the reference limit for Creatinine is approximately 13% higher for people identified as -Micronesian. GFR 51(L) > OR = 60 mL/min/1. 73m2 [facility] Comment:{eGFR NON-AFR. AMERI CAN {[id number]) GFR () 59(L) > OR = 60 mL/min/1. 73m2 [facility] Comment:{eGFR AMERIC AN {[id number]) BUN/Creatinine Ratio 33(H) 6 - 22 (calc) [facility] Comment:{BUN/CREATININE RATI O {[id number]) Sodium 139 135 - 146 mmol/L [facility] Comment:{SODIUM {[id number]) Potassium 5.1 3.5 - 5.3 mmol/L [facility] Comment:{POTASSIUM {[id number]) Chloride 105 98 - 110 mmol/L [facility] Comment:{CHLORIDE {[id number]) Carbon dioxide 25 20 - 31 mmol/L [facility] Comment:{CARBON DIOXIDE {[id number]) Calcium 9.4 8.6 - 10.4 mg/dL [facility] Comment:{CALCIUM {[id number]) 04/08/2016 12:1 7 PM EST 04/08/2016 [...] needs for GFR calculation. Resulting Agency Comment [id number] us Radha Spangler NP LABORATORY Final Result [facility] [address] [place] [address] documented in this encounter Visit Diagnoses Diagnosis [...] organs documented in this encounter Care Teams Section Supervisor Relationship Specialty Start Date End Date Brandyn Pagan MD PCP - General Internal Medicine 08/07/15 02/02/17 Radha Spangler NP PCP - Backup PCP Internal Medicine 01/11/16 02/02/17 Unknown Pcp, Non Rmg PCP - General 02/03/17 documented as of this encounter
--- OUTSIDE RECORDS SUMMARY | 2024-07-31 15:48 | XMS_ITS | Encounter Summary ---
Author Organization [facility] Address [address] [place] [address] Care Team Providers Care Couture Dressmaker Name Role Phone Brandyn Pagan MD Primary Care Provider Unavaila Radha Fink NP Unavailable Unavailable Unknown Pcp, Non Rmg Primary Care Provider Unava ilable Encounter Details Date Type Department Care Team (Late st Contact Info) Description 02/19/2016 Orders Only [facility] [address] [place] [address] Brandyn Pagan MD Social History Tobacco Use [...] this encounter Procedures * Due to [place] AnyPresence law, this organization might not be sharing [...] this encounter Results * Due to [place] AnyPresence law, this organization might not be sharing negative HIV tests. * (ABNORMAL) URINALYSIS, DIP ONLY ( SITE STAT ONLY) (02/19/2016 2:13 PM EDT) COLOR (URINE) Yellow [facility] (CLIA# [id number]) APPEARANCE (URINE) Cloudy [facility] (CLIA# [id number]) SPECIFIC GRAVITY 1.010 1.001 - 1.035 [facility] (CLIA# [id number]) PH (URINE) 7.5 5.0 - 8.0 [facility] (CLIA# [id number]) PROTEIN (URINE) Trace(A) Neg [facility] (CLIA# [id number]) GLUCOSE (URINE) Negative Neg [facility] (CLIA# [id number]) Ketones (Urine) Negative Neg [facility] (CLIA# [id number]) BILIRUBIN (URINE) Negative Neg [facility] (CLIA# [id number]) BLOOD (URINE) Negative Neg [facility] (CLIA# [id number]) Leukocyte esterase (Urine) 2+(A) [facility] (CLIA# [id number]) NITRITE (URINE) Negative Neg [facility] (CLIA# [id number]) Urine specimen obtained by clean catch procedure (specimen) 02/19/2016 2:13 PM EDT Narrative [facility] (CLIA# [id number]) - 02/19/2016 2:14 PM EDT Micro and culture already ordered per provider. us Brandyn Pagan MD LAB SAME DAY RESULT Final Resul t [facility] (CLIA# [id number]) [address] [place] [address] * (ABNORMAL) CULTURE, URINE, ROUTINE (02/19/2016 2:00 PM EDT) Bacteria culture (Urine) SEE NOTE(A) [facility] Comment: {CULTURE, URINE, ROUTINE {[id number]) ??CULTURE, URINE, ROUTINE ??MICRO NUMBER: ?[id number] ??TEST STATUS: ? FINAL ??SPECIMEN SOURCE: ?? URINE ??SPECIMEN QUALITY: ??ADEQUATE ??RESULT: ?50,000-100,000 CFU/mL of Escherichia coli ? Greater than 100,000 CFU/mL of ? Staphylococcus saprophyticus ? The Clinical Laboratory Standards [place] (M100 ? guidelines), does not advise routine [...] 7:35 PM EDT Narrative Resulting Agency Comment [id number] Brandyn Pagan MD LABORATORY Final Result [facility] [address] [place] [address] * (ABNORMAL) URINALYSIS, MICROSCOPIC (02/19/2016 2:00 PM EDT) WBC (Urine) 20-40(A) < OR = 5 /HPF [facility] Comment:{WBC {[id number]) RBC (Urine Sed) NONE SEEN < OR = 2 /HPF [facility] Comment:{RBC {[id number]) Epithelial cells.squamous (Urine sed) NONE SEEN < OR = 5 /HPF [facility] Comment:{SQUAMOUS EPITHELIAL CELLS {[id number]) Bacteria (Urine) FEW(A) NONE SEEN /HPF [facility] Comment:{BACTERIA {[id number]) Hyaline casts (Urine sed) NONE SEEN NONE SEEN /LPF [facility] Comment:{HYALINE CAST {[id number]) 02/19/2016 2:00 PM EDT 02/19/2016 7:35 PM EDT Narrative Resulting Agency Comment [id number] us Brandyn Pagan MD LAB SAME DAY RESULT Final Resul t Performing Organization Address City/State/[facility] Co de Phone Number [facility] [address] [place] [address] documented in this encounter Visit Diagnoses Diagnosis Urinary tract infection, site unspecified documented in this encounter Care Teams Couture Dressmaker Relationship Specialty Start Date End Date Brandyn Pagan MD PCP - General Internal Medicine 08/07/15 02/02/17 Radha Spangler NP PCP - Backup PCP Internal Medicine 01/11/16 02/02/17 Unknown Pcp, Non Rmg PCP - General 02/03/17 documented as of this encounter
--- OUTSIDE RECORDS SUMMARY | 2024-07-31 15:49 | XMS_ITS | Encounter Summary ---
Author Organization [facility] Address [address] [place] [address] Care Team Providers Care Crop Farm Helper Name Role Phone Unknown Pcp, Non Rmg Primary Care Provider Unava ilable Encounter Details Date Type Department Care Team (Late st Contact Info) Description 02/03/2017 Orders Only [facility] [address] [place] [id number] Unknown Pcp, Non Rmg Social History Tobacco [...] on filedocumented in this encounter Care Teams Crop Farm Helper Relationship Specialty Start Date End Date Unknown Pcp, Non Rmg PCP - General 02/03/17 documented as of this encounter
--- OUTSIDE RECORDS SUMMARY | 2024-07-31 15:49 | XMS_ITS | Clinical Summary ---
Author Organization [facility] Address [address] [place] [address] Care Team Providers Care Rf Design Engineer Name Role Phone Unknown Pcp, Non Rmg [...] 10/06/2016 Overview (03/18/2021): reapir 2000 Dr Chris Sacuedo Urogyn eval August 2016 09/26/2016: Surgical procedure [...] (when compared with previous ct scan from [facility], but NEW lung nodule R middle lobe 2 mm. Will f/u with screen CT in 1 year HTN 11/02/2015 Cervical spondylosis with radiculopathy 11/02/19 16 Flat foot (pes planus) (acquired), left foot Psoriasis 11/02/2015 Major depression in partial remission 11/02/2015 Overview (12/21/2016): Refer to PCP cpe dated 01/11/16 Psych: Reports anxiety and depression are stable. Sees Dr. Alvarado psychiatrist, in [place]. He prescribes lamotrigine, duloxetine, tramadol, Adderall. 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 Irene Christensen in [place]. Confirmed with their office that she is [...] or Zetia. The 10-year ASCVD risk score ([place] SUNDEEP Mejia, et al., 2013) is: 6.7% [...] Radha Spangler NP Procedures * Due to [place] Kite[employer] law, this organization might not be sharing negative HIV tests. Procedure Name Priority Date/Time Associated Diagnosis Comments MAMMOGRAPHY-BILATERAL 06/05/2014 PAP SMEAR 06/05/2014 from Last 3 Months or Most Recently Relevant to Health Maintenance Results * Due to [place] Kite[employer] law, this organization might not be sharing [...] Documents on File Type Date Recorded Patient Smog Technician Expl anation Advance Directives and Living Will 03/11/2016 Care Teams Rf Design Engineer Relationship Specialty Start Date End Date Unknown Pcp, Non Rmg PCP - General 02/03/17
--- OUTSIDE RECORDS SUMMARY | 2024-07-31 15:49 | XMS_ITS | Encounter Summary ---
Author Organization [facility] Address [address] [place] [address] Care Team Providers Care Jointer Machine Operator Name Role Phone Brandyn Pagan MD Primary Care Provider Unavaila Radha Fink NP Unavailable Unavailable Unknown Pcp, Non Rmg Primary Care Provider Unava ilable Encounter Details Date Type Department Care Team (Late st Contact Info) Description 09/21/2016 Orders Only [facility] [address] [place] [address] Radha Spangler NP Social History Tobacco Use [...] this encounter Procedures * Due to [place] Wedit law, this organization might not be sharing negative HIV tests. Procedure Name Priority Date/Time Associated Diagnosis Comments ALANINE AMINOTRANSFERASE (ALT), SERUM Routine 09/21/2016 1:41 PM EDT Hyperlipidemia, unspecified hyperlipidemia type LIPID PANEL WITH REFLEX TO DIRECT LDL Routine 09/21/2016 1:41 PM EDT Hyperlipidemia, unspecified hyperlipidemia type documented in this encounter Results * Due to [place] Wedit law, this organization might not be sharing negative HIV tests. * ALANINE AMINOTRANSFERASE (ALT), SERUM (09/21/2016 1:41 PM EDT) ALT (SGPT) 25 6 - 29 U/L [facility] 09/21/2016 1:41 PM EDT 09/21/2016 6:16 PM EDT Narrative Resulting Agency Comment [id number] Radha Spangler SPLITTER MACHINE LAB SAME DAY RESULT Final Re sult [facility] [address] [place] [address] * (ABNORMAL) LIPID PANEL WITH REFLEX TO [...] 6:16 PM EDT Narrative Resulting Agency Comment [id number] Radha Spangler NP LABORATORY Final Result [facility] [address] [place] [address] documented in this encounter Visit Diagnoses Diagnosis Hyperlipidemia, unspecified hyperlipidemia type documented in this encounter Care Teams Jointer Machine Operator Relationship Specialty Start Date End Date Brandyn Pagan MD PCP - General Internal Medicine 08/07/15 02/02/17 Radha Spangler NP PCP - Backup PCP Internal Medicine 01/11/16 02/02/17 Unknown Pcp, Non Rmg PCP - General 02/03/17 documented as of this encounter
--- OUTSIDE RECORDS SUMMARY | 2024-07-31 15:49 | XMS_ITS | Encounter Summary ---
Author Organization [facility] Address [address] [place] [address] Care Team Providers Care Fountain Server Name Role Phone Brandyn Pagan MD Primary Care Provider Unavaila Radha Fink NP Unavailable Unavailable Unknown Pcp, Non Rmg Primary Care Provider Unava ilable Encounter Details Date Type Department Care Team (Late st Contact Info) Description 09/21/2016 Orders Only [facility] Pre-Admission Testing [address] [place] [address] Filiberto May MD [address] [place] [address] Social History Tobacco Use Types Packs/Day Years [...] approximately 13% higher for people identified as -Dominican. GFR 50(L) > OR = 60 mL/min/1. [...] needs for GFR calculation. Resulting Agency Comment [id number] us Filiberto May MD LABORATORY Final Result [facility] [address] [place] [address] documented in this encounter Visit Diagnoses Diagnosis BILLIE (obstructive sleep apnea) Obstructive sleep apnea (adult) (pediatric) documented in this encounter Care Teams Fountain Server Relationship Specialty Start Date End Date Brandyn Pagan MD PCP - General Internal Medicine 08/07/15 02/02/17 Radha Spangler NP PCP - Backup PCP Internal Medicine 01/11/16 02/02/17 Unknown Pcp, Non [facility] [place]CP - General 02/03/17 documented as of this encounter
--- OUTSIDE RECORDS SUMMARY | 2024-07-31 15:49 | XMS_ITS | Encounter Summary ---
Author Organization [facility] Address [address] [place] [address] Care Team Providers Care Precision Thread Grinder Operator Name Role Phone Brandyn Pagan MD Primary Care Provider Radha Cuevas NP Unavailable Unavailable Unknown Pcp, Non Rmg Primary Care Provider Unava ilable Encounter Details Date Type Department Care Team (Late st Contact Info) Description 09/09/2016 Orders Only [facility] [address] [place] [address] Brandyn Pagan MD Social History Tobacco Use [...] this encounter Procedures * Due to [place] [employer] law, this organization might not be sharing negative HIV tests. Procedure Name Priority Date/Time Associated Diagnosis Comments URINALYSIS, DIP ONLY STAT (All results called to provider) 09/09/2016 12:32 PM EDT Frequency of urination CULTURE, URINE, ROUTINE Routine 09/09/2016 12:28 PM EDT Frequency of urination URINALYSIS, MICROSCOPIC Routine 09/09/2016 12:28 PM EDT Frequency of urination documented in this encounter Results * Due to [place] [employer] law, this organization might not be sharing negative HIV tests. * URINALYSIS, DIP ONLY ( SITE STAT ONLY) (09/09/2016 12:32 PM EDT) COLOR (URINE) Yellow [facility] (CLIA# [id number]) APPEARANCE (URINE) Clear Clear [facility] (CLIA# [id number]) SPECIFIC GRAVITY 1.015 1.001 - 1.035 [facility] (CLIA# [id number]) PH (URINE) 6.0 5.0 - 8.0 [facility] (CLIA# [id number]) PROTEIN (URINE) Negative Neg [facility] (CLIA# [id number]) GLUCOSE (URINE) Negative Neg [facility] (CLIA# [id number]) Ketones (Urine) Negative Neg [facility] (CLIA# [id number]) BILIRUBIN (URINE) Negative Neg [facility] (CLIA# [id number]) BLOOD (URINE) Negative Neg [facility] (CLIA# [id number]) Leukocyte esterase (Urine) Negative Neg [facility] (CLIA# [id number]) NITRITE (URINE) Negative Neg [facility] (CLIA# [id number]) Urine specimen obtained by clean catch procedure (specimen) 09/09/2016 12:32 PM EDT Narrative [facility] (CLIA# [id number]) - 09/09/2016 12:36 PM EDT Micro and culture already ordered per provider. us Brandyn Pagan MD LAB SAME DAY RESULT Final Resul t Performing Organization Address [facility] de Phone Number [facility] (CLIA# [id number]) [address] [place] [address] * CULTURE, URINE, ROUTINE (09/09/2016 12:28 PM EDT) Bacteria culture (Urine) SEE NOTE [facility] Comment: ??CULTURE, URINE, ROUTINE ??MICRO NUMBER: ?[id number] ??TEST STATUS: ? FINAL ??SPECIMEN SOURCE: ?? URINE ??SPECIMEN QUALITY: ??ADEQUATE ??RESULT: ?Multiple organisms present, each less than 10,000 ? CFU/mL. These organisms, commonly found on ? external and internal genitalia, are considered ? to be colonizers. No further testing performed. 09/09/2016 12:2 8 PM EDT 09/09/2016 7:38 PM EDT Narrative Resulting Agency Comment [id number] us Brandyn Pagan MD LABORATORY Final Result Performing Organization Address [facility]/ZIP Co de Phone Number [facility] [address] [place] [address] * URINALYSIS, MICROSCOPIC (09/09/2016 12:28 PM EDT) [...] 7:38 PM EDT Narrative Resulting Agency Comment [id number] us Brandyn Pagan MD LAB SAME DAY RESULT Final Resul t [facility] [address] [place] [address] documented in this encounter Visit Diagnoses Diagnosis Frequency of urination Urinary frequency documented in this encounter Care Teams Precision Thread Grinder Operator Relationship Specialty Start Date End Date Brandyn Pagan MD PCP - General Internal Medicine 08/07/15 02/02/17 Radha Spangler NP PCP - Backup PCP Internal Medicine 01/11/16 02/02/17 Unknown Pcp, Non [facility]mg PCP - General 02/03/17 documented as of this encounter
--- OUTSIDE RECORDS SUMMARY | 2024-07-31 15:49 | XMS_ITS | Encounter Summary ---
Author Organization [facility] Address [address] [place] [address] Care Team Providers Care Hospitalist Medical Director Name Role Phone Brandyn Pagan MD Primary Care Provider UnavailRadha Mas NP Unavailable Unavailable Unknown Pcp, Non Rmg Primary Care Provider Unava ilable Encounter Details Date Type Department Care Team (Late st Contact Info) Description 03/09/2016 Orders Only [facility] [address] [place] [address] Brandyn Pagan MD Social History Tobacco Use [...] this encounter Procedures * Due to [place] [employer] law, this organization might not be sharing negative HIV tests. Procedure Name Priority Date/Time Associated Diagnosis Comments CLOSTRIDIUM DIFFICILE TOXIN/GDH WITH REFLEX TO PCR Routine 03/09/2016 12:41 PM EDT Diarrhea, unspecified type documented in this encounter Results * Due to [place] [employer] law, this organization might not be sharing negative HIV tests. * CLOSTRIDIUM DIFFICILE TOXIN/GDH WITH REFLEX TO PCR (03/09/2016 12:41 PM EDT) Clostridium Difficile (Stool) SEE NOTE [facility] Comment: {CLOSTRIDIUM DIFFICILE TOXIN/GDH W/REFL TO PCR {[id number]) ??CLOSTRIDIUM DIFFICILE TOXIN/GDH W/REFL TO PCR ??MICRO NUMBER: ?[id number] ??TEST STATUS: ? FINAL ??SPECIMEN SOURCE: ?? STOOL ??SPECIMEN QUALITY: ??ADEQUATE ??GDH ANTIGEN: ? Not Detected ??TOXIN A AND B: ? Not Detected ??COMMENT: ? No toxigenic C. difficile detected 03/09/2016 12:4 1 PM EDT 03/09/2016 7:22 PM EDT Narrative Resulting Agency Comment [id number] Brandyn Pagan MD LABORATORY Final Result [facility] [address] [place] [address] documented in this encounter Visit Diagnoses Diagnosis Diarrhea, unspecified type documented in this encounter Care Teams Hospitalist Medical Director Relationship Specialty Start Date End Date Brandyn Pagan MD PCP - General Internal Medicine 08/07/15 02/02/17 Radha Spangler NP PCP - Backup PCP Internal Medicine 01/11/16 02/02/17 Unknown Pcp, Non Rmg PCP - General 02/03/17 documented as of this encounter
--- OUTSIDE RECORDS SUMMARY | 2024-07-31 15:49 | XMS_ITS | Data Portability ---
Author Organization [facility] Address [address] [place] [address] Care Team Providers Care Polytechnic Registrar Name Role Phone JANIE SOLOMON Primary Care [...] and prognosis were reviewed with the patient. [email or web address] Not available 07/31/2023 03:00:11 Plan of Treatment Reminders Order Date Submit Date Provider Last Modified By Organization Details Last Modified Time Details Appointments None recorded . Lab fungus, culture, skin or hair or nails - left hallux nail 024 10/19/19 24 [email or web address], [address], [place], [address], 4 09:21:19 Referral None recorded . Procedures None recorded . Surgeries None recorded . Imaging XR, ankle, 3 or more view 024 07/31/19 24 [email or web address] 3 [facility], [address], [address], [place], [address], 4 00:03:13 Medication Orders None recorded . Patient TargetsNo targets recorded. Patient InstructionsNo instructions recorded. Reason for Referral None Reported. Results Created Date Observation Date Name Description Value Unit Range Abnormal Flag Note LastModifiedBy Organization Detail LastModifiedTime 07/31/19 24 XR, ankle , 3 or more view No observ ation record ed. [email or web address] [facility] [address], [place], [address], 07/31/2023 00:03:11 Result Notes None recorded. Procedures Surgical History Date Name Laterality Status Provider Name and Address Organization Details Recorded Time procedure on knee completed [facility] 07/21/2023 16:09:01 procedure on hip completed [facility] 07/21/2023 16:09:08 procedure on back completed [facility] 07/21/2023 16:09:18 procedure on neck completed [facility] 07/21/2023 16:09:26 Imaging Results Imaging Date Name Status LastModified by Organiz ation Details LastModified Time 07/31/2023 XR, ankle, 3 or more view completed [email or web address] [facility] [address], [place], [address], 07/31/2023 00:03:11 Procedure Notes None recorded. Medical Equipment None Reported. Allergies Allergen ID Allergen Name Allergen Category Reaction Reaction Severity Criticality Documentation Date Start Date Code Code System Note Provider Name and Address Organization Details Recorded Time 326584 Product containin g 3-hydroxy -3-methyl glutaryl- coenzyme A reductase inhibitor (product) medicatio n Not available Not available Not available 07/21/2023 52293 009 SNOMED [facility] 16:06:50 Medications Name Sig Start [...] HOURS NEEDED FOR POST OP PAIN DNF 332062 07/20 completed Not Available Not Available Not [...] Not Available Not Available No t Available [place] Thyroid 30 mg tablet TAKE 1 ORAL [...] Updated DateTime 4 167.64 cm 35.5 kg/m2 17493.3 2 g 77 /min 155 mm[Hg] 102 mm[Hg] Kelly Mcdonald [facility] 4 16:08:09 Date Recorded Body height Body mass index (BMI) Body weight Heart rate Systolic blood pressure Diastolic blood pressure Provider Name and Address Organization Details Last Updated DateTime 4 167.64 cm 35.5 kg/m2 71919.3 2 g 68 /min 155 mm[Hg] 95 mm[Hg] Kelly Mcdonald [facility] 4 16:56:50 Date Recorded Body height Body mass index (BMI) Body weight Heart rate Systolic blood pressure Diastolic blood pressure Provider Name and Address Organization Details Last Updated DateTime 4 167.64 cm 35.5 kg/m2 92038.3 2 g 81 /min 118 mm[Hg] 65 mm[Hg] Kelly Mcdonald [facility] 4 14:22:16 Social History Question Answer Notes LastModified by Organizat ion Details LastModified Time Tobacco Smoking Status Former Smoker Kelly Mcdonald [facility] 07/21/2023 16:08:43 Do You Have [...] Do You Have A Medical Power Of Customer Service Driver? No Information not available 07/21/2023 What Is Your Relationship Status? Single Information not available 09/28/2023 Sex: Unknown Functional Status Question Answer Note LastModified by Organization D etails LastModified Time Are you able to walk? YESWOREST Information not available 09/28/2023 Mental Status None recorded. Family History Nothing Reported. Medical History Condition Response Arthritis Y Stroke Y Rheumatoid Arthritis N Neuropathy Y Back Pain Y Diabetes N Hypertension Y Gynecological HistoryNo gynecological history recorded. Obstetrics History GPAL:G 0 P 0 0 0 0 Past Encounters Encounter ID Performer Location Encounter Start Date Encounter Closed Date Diagnosis/Indication Diagnosis SNOMED-CT Code Diagnosis ICD10 Code Diagnosis Note [id number] Jair Winter DPM [facility] [address] [address] 07/21/2023 15:55:39 07/21/2023 16:23:11 Acquired valgus deformity of left ankle [id number] 36293 M21.072 X-rays 3 views left foot DP/LAT/LO [...] sent to PCP for L1970 and L2820. [id number] Jair Winter DPM [facility] [address] [address] 09/28/2023 15:34:38 09/28/2023 17:16:16 Acquired valgus deformity of left ankle [id number] 84142 M21.072 Curry brace AFO with 6degrees varus [...] from the lab for dispensing and fitting. 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 The AFO device was comfortabl e and [...] [employer] - GOLD PLUS (MEDICARE REPLACEMENT HMO) [id number] Genie Vora [id number] Genie Vora 09/28/2023 1 [employer] - GOLD PLUS (MEDICARE REPLACEMENT HMO) [id number] Genie Vora [id number] Genie Vora 10/19/2023 1 [employer] - GOLD PLUS (MEDICARE REPLACEMENT HMO) [id number] Genie Vora [id number] Genie Vora Notes Date Note Type Note Provider Name and Address Organization Details Recorded Time 07/21/2023 text/html New patient presents for management of painful left foot and ankle. The patient reports that ankle has slowly sagged in the medial direction. He denies any history of trauma. It is worse with prolonged standing or walking.Reported past medical history was reviewed. Jair Winter DPM [address] [place], [address], [facility] 07/31/2023 03:01:43 09/28/2023 text/html The patient presents for scanning of her left foot and ankle for a Curry brace. This will help her progressive left ankle valgus deformity. Jair Winter DPM [address] [place], [address], [facility] 09/28/2023 21:49:44 10/19/2023 text/html 1. [place] Brace hand picker for left ankle.2. Concerned about increasing yellowing of toenails. Jair Winter DPM [address] [place], [address], [facility] 10/22/2023 16:25:45 OBGyn Episode No OBEpisode recorded.
--- OUTSIDE RECORDS SUMMARY | 2024-07-31 15:49 | XMS_ITS | Encounter Summary ---
Author Organization [facility] Address [address] [place] [address] Care Team Providers Care Technical Service Rep Name Role Phone Unknown Pcp, Non Rmg [...] Date Expiration Date Visits Requested Visits Authorized [id number] Canceled Service Not Available at Clinic 02/03/2017 1 1 Encounter Details Date Type Department Care Team (Late st Contact Info) Description 02/03/2017 Orders Only [facility] [address] [place] [address] Brandyn Pagan MD Social History Tobacco Use [...] chronicity documented in this encounter Care Teams Technical Service Rep Relationship Specialty Start Date End Date Unknown Pcp, Non Rmg PCP - General 02/03/17 documented as of this encounter
--- OUTSIDE RECORDS SUMMARY | 2024-07-31 15:49 | XMS_ITS | Encounter Summary ---
Author Organization [facility] Address [address] [place] [address] Care Team Providers Care Jailer Chief Name Role Phone Brandyn Pagan MD Primary Care Provider Radha Cuevas NP Unavailable Unavailable Unknown Pcp, Non Rmg Primary Care Provider Unava ilable Reason for Visit * Reason Comments ER F/U Encounter Details Date Type Department Care Team (Late st Contact Info) Description 07/29/2016 [facility] [address] [place] [phone] Brandyn Pagan MD ER F/U Social [...] following an Emergency Department visit. ED location: [facility] ER Date of ED Visit: 07-26-16 Time [...] on filedocumented in this encounter Care Teams Jailer Chief Relationship Specialty Start Date End Date Brandyn Pagan MD PCP - General Internal Medicine 08/07/15 02/02/17 Radha Spangler NP PCP - Backup PCP Internal Medicine 01/11/16 02/02/17 Unknown Pcp, Non Rmg PCP - General 02/03/17 documented as of this encounter
--- OUTSIDE RECORDS SUMMARY | 2024-07-31 15:49 | XMS_ITS | Encounter Summary ---
Author Organization [facility] Address [address] [place] [address] Care Team Providers Care Medical Technologist Chief Name Role Phone Bijal Fox NP Primary Care Provider [phone] Encounter Details Date Type Department Care Team (Late st Contact Info) Description 07/31/2024 12:09 PM EDT Hospital Encounter [facility] [address] [place] [address] Sonny Reed MD [address] [place] [address] Pain Social History Tobacco Use Types Packs/Day Years Used Date Smoking Tobacco: Former Smokeless Tobacco: Never Comments:: Alcohol Use Standard Drinks/Week Comments Not Currently 0 (1 standard drink = 0.6 oz pur e alcohol) [facility] Utilities Answer Date Recorded In the past [...] Description 08/01/2024 2:00 PM EDT Follow-Up [facility] Nephrology [address] [facility] [address] [place] [address] John Henrdicks MD [address] [address] 09/18/2024 11:00 AM EDT Follow-Up [facility] [address] [place] [address] MarvinJeffery PA [address] [place] [address] 01/08/2025 10:00 AM EDT Follow-Up [facility] [address] [facility] Cardiology [address] [place] [address] Mabel Onofre NP 100 [facility] [address] [place] [address] documented as of this encounter Procedures * Due to [place] [employer] law, this organization might not be sharing negative HIV tests. Procedure Name Priority Date/Time Associated Diagnosis Comments FL C-ARM WITH IMAGES NONREPORTABLE Routine 07/31/2024 10:49 AM EDT Pain documented in this encounter Results * Due to [facility] law, this organization might not be sharing negative HIV tests. * FL C-Arm with Images NONREPORTABLE (07/31/2024 10:49 AM EDT) Narrative IMAGING - 07/31/2024 12:28 PM EDT This procedure does not contain a result. Please see the surgeon's note for official report. us Sonny Reed MD IMG FLUOROSCOPY PROCEDURES Fin al Result IMAGING documented in this encounter Visit Diagnoses Diagnosis Pain Generalized pain documented in this encounter Care Teams Medical Technologist Chief Relationship Specialty Start Date End Date Bijal Fox, MEY [address] [place] [address] PCP - General Family Medicine 05/30/24 documented as of this encounter
--- OUTSIDE RECORDS SUMMARY | 2024-07-31 15:49 | XMS_ITS | Encounter Summary ---
Author Organization [facility] Address [address] [place] [address] Care Team Providers Care Mold Stamper Name Role Phone Brandyn Pagan MD Primary Care Provider Unavaila Radha Fink NP Unavailable Unavailable Unknown Pcp, Non Rmg Primary Care Provider Unava ilable Encounter Details Date Type Department Care Team (Late st Contact Info) Description 03/18/2016 Orders Only [facility] [address] [place] [address] Radha Spangler NP Social History Tobacco Use [...] this encounter Procedures * Due to [place] law, this organization might not be sharing [...] this encounter Results * Due to [place] law, this organization might not be sharing negative HIV tests. * (ABNORMAL) BASIC METABOLIC PANEL WITH (GFR) (03/18/2016 10:02 AM EDT) Glucose 102(H) 65 - 99 mg/dL [facility] Comment: {GLUCOSE {[id number]) ? Fasting reference interval Urea Nitrogen Blood (BUN) 21 7 - 25 mg/dL [facility] Comment:{UREA NITROGEN (BUN) {[id number]) Creatinine 0.95 0.50 - 0.99 mg/dL [facility] Comment: {CREATININE {[id number]) For patients >49 years of age, the reference limit for Creatinine is approximately 13% higher for people identified as -[place]. GFR 63 > OR = 60 mL/min/1 .73m2 [facility] Comment:{eGFR NON-AFR. AMERI CAN {[id number]) GFR () 73 > OR = 60 mL/min/1 .73m2 [facility] Comment:{eGFR AMERIC AN {[id number]) BUN/Creatinine Ratio NOT APPLICABLE (calc) [facility] Comment:{BUN/CREATININE RATI O {[id number]) Sodium 139 135 - 146 mmol/L [facility] Comment:{SODIUM {[id number]) Potassium 4.8 3.5 - 5.3 mmol/L [facility] Comment:{POTASSIUM {[id number]) Chloride 106 98 - 110 mmol/L [facility] Comment:{CHLORIDE {[id number]) Carbon dioxide 25 20 - 31 mmol/L [facility] Comment:{CARBON DIOXIDE {[id number]) Calcium 9.3 8.6 - 10.4 mg/dL [facility] Comment:{CALCIUM {[id number]) 03/18/2016 10:0 2 AM EDT 03/18/2016 [...] needs for GFR calculation. Resulting Agency Comment [id number] Radha Spangler NP LABORATORY Final Result [facility] [address] [place] [address] * (ABNORMAL) CREATINE KINASE (CK), SERUM (03/18/2016 10:02 AM EDT) CPK 196(H) 29 - 143 U/L [facility] Comment:{CREATINE KINASE, TO KENZIE {[id number]) 03/18/2016 10:0 2 AM EDT 03/18/2016 4:21 PM EDT Narrative Resulting Agency Comment [id number] Radha Spangler NP LAB SAME DAY RESULT Final Re sult [facility] [address] [place] [address] * (ABNORMAL) ALANINE AMINOTRANSFERASE (ALT), SERUM (03/18/2016 10:02 AM EDT) ALT (SGPT) 32(H) 6 - 29 U/L [facility] Comment:{ALT {[id number]) 03/18/2016 10:0 2 AM EDT 03/18/2016 4:21 PM EDT Narrative Resulting Agency Comment [id number] Radha Spangler [facility] SAME DAY RESULT Final Re sult Performing Organization Address [facility] Co de Phone Number [facility] [address] [place] [address] * (ABNORMAL) LIPID PANEL WITH REFLEX TO DIRECT LDL (03/18/2016 10:02 AM EDT) Cholesterol 274(H) 125 - 200 mg/dL [facility] Comment:{CHOLESTEROL, TOTAL {[id number]) HDL Cholesterol 74 > OR = 46 mg/dL [facility] Comment:{HDL CHOLESTEROL {[id number]) Triglyceride 165(H) <150 mg/dL [facility] Comment:{TRIGLYCERIDES {[id number]) LDL Cholesterol 167(H) <130 mg/dL (calc) [facility] Comment: {LDL-CHOLESTEROL {[id number]) Desirable range <100 mg/dL for patients with CHD or diabetes and <70 mg/dL for diabetic patients with known heart disease. CHOL/HDL Ratio 3.7 < OR = 5.0 (calc) [facility] Comment:{CHOL/HDLC RATIO {[id number]) Cholesterol Non-HDL 200(H) mg/dL (calc) [facility] Comment: {NON HDL CHOLESTEROL {[id number]) Target for non-HDL cholesterol is 30 mg/dL higher than LDL cholesterol target. 03/18/2016 10:0 2 AM EDT 03/18/2016 4:21 PM EDT Narrative Resulting Agency Comment [id number] Radha Spangler NP LABORATORY Final Result [facility] [address] [place] [address] documented in this encounter Visit Diagnoses Diagnosis Hyperlipidemia, unspecified hyperlipidemia type Essential hypertension with goal blood pressure less than 140/90 documented in this encounter Care Teams Mold Stamper Relationship Specialty Start Date End Date Brandyn Pagan MD PCP - General Internal Medicine 08/07/15 02/02/17 Radha Spangler NP PCP - Backup PCP Internal Medicine 01/11/16 02/02/17 Unknown Pcp, Non Rmg PCP - General 02/03/17 documented as of this encounter
== END 2024-07-31 15:49 | disposition home or self-care (01) ==
LOC: HO.HNS 13:24
PROVIDERS: PCP Nurse Practitioner Family; Visit Provider Physician Assistant
DX: Z98.1 Arthrodesis status (principal)
CPT/HCPCS: 99213

== ENCOUNTER 2024-07-31 13:24 | Outpatient (REF) | payer MEDICARE, SELFPAY ==
--- NOTE | ~2024-07-31 | XR_ITS ---
EXAMINATION: XR LUMBOSACRAL SPINE CLINICAL INFORMATION: M54.50 - Low back pain, unspecified COMPARISON: None available. TECHNIQUE: 4 views of the lumbar spine, inclusive of flexion and extension views, were obtained. FINDINGS: Mild levoconvex scoliosis. Normal lordosis. No compression fracture, acute fracture, or suspicious bone lesion. Posterior instrumented fusion L4-5 with transpedicular screws, posterior connecting rods, and disc prosthesis. Hardware appears intact, well seated, without failure or loosening seen. Neutral view demonstrates a 7 mm degenerative appearing anterolisthesis of L3 on L4. Trace degenerative anterolisthesis L5 on S1. No additional subluxations. Severe L3-4 disc space loss, with sclerosis of the endplates. Moderate to severe L5-S1 disc space loss. There is otherwise only mild disc degeneration superior to L3. Normal facet alignment. There are hypertrophic degenerative facet changes are evident spanning L3-S1. On flexion view, no change in the L3-4 anterolisthesis, nor L5-S1 anterolisthesis. No developing subluxation. On extension view, no changes. No developing subluxation. XR/XR lumbar spine 4V min IMPRESSION: 1. No acute bony abnormalities. 2. L4-5 fusion and discectomy intact without complication. 3. Grade 1, 7 mm degenerative appearing anterolisthesis of L3 on L4. Minimal degenerative anterolisthesis L5-S1. No evidence of instability. 4. Moderate lumbar spondylosis, most significant at L3-4. Electronically signed by: Aureliano Jaimes MD 08/01/2024 08:58 AM EDT
--- OUTSIDE RECORDS SUMMARY | 2024-07-31 16:23 | XMS_ITS | Encounter Summary ---
Author Organization [facility] Address [address] [place] [address] Care Team Providers Care Manager Completions Name Role Phone Brandyn Pagan MD Primary Care Provider Radha Cuevas NP Unavailable Unavailable Unknown Pcp, Non [facility] Primary Care Provider Unava ilable Encounter Details Date Type Department Care Team (Late st Contact Info) Description 10/06/2015 Orders Only [facility] [address] [place] [address] Brandyn Pagan MD Social History Tobacco Use [...] proper risk profile. I cannot run the [place] [employer] risk calculator. The decision related [...] this encounter Procedures * Due to [place] [employer] law, this organization might not be sharing [...] this encounter Results * Due to [place] [employer] law, this organization might not be sharing negative HIV tests. * (ABNORMAL) URINALYSIS, DIP ONLY ( SITE STAT ONLY) (10/06/2015 11:19 AM EDT) COLOR (URINE) YELLOW [facility] (CLIA# [id number]) APPEARANCE (URINE) CLOUDY [facility] (CLIA# [id number]) SPECIFIC GRAVITY 1.020 1.001 - 1.035 [facility] (CLIA# [id number]) PH (URINE) 5.0 5.0 - 8.0 [facility] (CLIA# [id number]) PROTEIN (URINE) TRACE(A) Neg [facility] (CLIA# [id number]) GLUCOSE (URINE) NEGATIVE Neg [facility] (CLIA# [id number]) Ketones (Urine) NEGATIVE Neg [facility] (CLIA# [id number]) BILIRUBIN (URINE) NEGATIVE Neg [facility] (CLIA# [id number]) BLOOD (URINE) NEGATIVE Neg [facility] (CLIA# [id number]) Leukocyte esterase (Urine) 1+(A) [facility] (CLIA# [id number]) NITRITE (URINE) POSITIVE(A) Neg [facility] (CLIA# [id number]) Urine specimen obtained by clean catch procedure (specimen) 10/06/2015 11:19 AM EDT Narrative [facility] (CLIA# [id number]) - 10/06/2015 11:19 AM EDT Micro and culture already ordered per provider. us Brandyn Pagan MD LAB SAME DAY RESULT Final Resul t [facility] (CLIA# [id number]) [address] [place] [address] * (ABNORMAL) CULTURE, URINE, ROUTINE (10/06/2015 10:11 AM EDT) Pathologist [facility] Bacteria culture (Urine) SEE NOTE(A) [facility] Comment: {CULTURE, URINE, ROUTINE {[id number]) ??CULTURE, URINE, ROUTINE ??MICRO NUMBER: ?[id number] ??TEST STATUS: ? FINAL ??SPECIMEN SOURCE: ?? [...] 6:19 PM EDT Narrative Resulting Agency Comment [id number] Brandyn Pagan MD LABORATORY Final Result Performing Organization Address City/State/[facility] Co de Phone Number [facility] [address] [place] [address] * (ABNORMAL) URINALYSIS, MICROSCOPIC (10/06/2015 10:11 AM EDT) WBC (Urine) 20-40(A) < OR = 5 /HPF [facility] Comment:{WBC {[id number]) RBC (Urine Sed) 0-2 < OR = 2 /HPF [facility] Comment:{RBC {[id number]) Epithelial cells.squamous (Urine sed) NONE SEEN < OR = 5 /HPF [facility] Comment:{SQUAMOUS EPITHELIAL CELLS {[id number]) Bacteria (Urine) MANY(A) NONE SEEN /HPF [facility] Comment:{BACTERIA {[id number]) Hyaline casts (Urine sed) NONE SEEN NONE SEEN /LPF [facility] Comment:{HYALINE CAST {[id number]) 10/06/2015 10:1 1 AM EDT 10/06/2015 6:19 PM EDT Narrative Resulting Agency Comment [id number] Brandyn Pagan MD LAB SAME DAY RESULT Final Resul t Performing Organization Address City/[facility] Co de Phone Number [facility] [address] [place] [address] * GLUCOSE (BLOOD) (10/06/2015 10:11 AM EDT) Glucose 86 65 - 99 mg/dL [facility] Comment: {GLUCOSE {[id number]) ? Fasting reference interval 10/06/2015 10:1 1 AM EDT 10/06/2015 6:19 PM EDT Narrative Resulting Agency Comment [id number] Brandyn Pagan MD LAB SAME DAY RESULT Final Resul t Performing Organization Address [facility] de Phone Number [facility] [address] [place] [address] * (ABNORMAL) LIPID PANEL WITH REFLEX TO DIRECT LDL (10/06/2015 10:11 AM EDT) Cholesterol 243(H) 125 - 200 mg/dL [facility] Comment:{CHOLESTEROL, TOTAL {[id number]) HDL Cholesterol 71 > OR = 46 mg/dL [facility] Comment:{HDL CHOLESTEROL {[id number]) Triglyceride 163(H) <150 mg/dL [facility] Comment:{TRIGLYCERIDES {[id number]) LDL Cholesterol 139(H) <130 mg/dL (calc) [facility] Comment: {LDL-CHOLESTEROL {[id number]) Desirable range <100 mg/dL for patients with CHD or diabetes and <70 mg/dL for diabetic patients with known heart disease. CHOL/HDL Ratio 3.4 < OR = 5.0 (calc) [facility] Comment:{CHOL/HDLC RATIO {[id number]) Cholesterol Non-HDL 172(H) mg/dL (calc) [facility] Comment: {NON HDL CHOLESTEROL {[id number]) Target for non-HDL cholesterol is 30 mg/dL higher than LDL cholesterol target. 10/06/2015 10:1 1 AM EDT 10/06/2015 6:19 PM EDT Narrative Resulting Agency Comment [id number] us Brandyn Pagan MD LABORATORY Final Result Performing Organization Address City/State/[facility] Co de Phone Number [facility] [address] [place] [address] documented in this encounter Visit Diagnoses Diagnosis Lipid screening Screening for lipoid disorders Screening for cardiovascular condition Screening for other and unspecified cardiovascular conditions Screening for diabetes mellitus Urinary tract infection, site unspecified documented in this encounter Care Teams Manager Completions Relationship Specialty Start Date End Date Brandyn Pagan MD PCP - General Internal Medicine 08/07/15 02/02/17 Radha Spangler NP PCP - Backup PCP Internal Medicine 01/11/16 02/02/17 Unknown Pcp, Non [facility] PCP - General 02/03/17 documented as of this encounter
--- OUTSIDE RECORDS SUMMARY | 2024-07-31 16:23 | XMS_ITS | Encounter Summary ---
Author Organization [facility] Address [address] [place] [address] Care Team Providers Care Drier And Pulverizer Tender Name Role Phone Bijal Fox NP Primary Care Provider [phone] Encounter Details Date Type Department Care Team (Latest Contact Info) Description 07/22/2024 11:08 AM EST - 07/22/2024 11:59 PM [facility] Hospital Encounter [facility] [address] [id number] Acute pain of left shoulder Discharge Disposition: Home or Self Care () Social History Tobacco Use Types Packs/Day Years Used Date Smoking Tobacco: Former Smokeless Tobacco: Never Comments:: Alcohol Use Standard Drinks/Week Comments Not Currently 0 (1 standard drink = 0.6 oz pur e alcohol) [facility] Utilities Answer Date Recorded In the [...] PM EDT Follow-Up [facility] Nephrology 100 [facility] [address] [place] [address] John Hendricks MD [address] [address] 09/18/2024 11:00 AM EDT Follow-Up [facility] [address] [place] [address] Marvin, AYAD Gil [address] [place] [address] 01/08/2025 10:00 AM EDT Follow-Up [address] Cardiology 100 [facility] [place] [address] [place] [address] Mabel Onofre NP 100 [facility] [address] [place] [address] documented as of this encounter Procedures * Due to [place] [employer] law, this organization might not be sharing negative HIV tests. Procedure Name Priority Date/Time Associated Diagnosis Comments XR SHOULDER 2+ VW LEFT Routine 07/22/2024 11:45 AM EST Acute pain of left shoulder documented in this encounter Results * Due to [place] [employer] law, this organization might not be sharing [...] obtain the completed interpretation. ? Workstation ID: [id number] Narrative 07/22/2024 1:20 PM EST COMPARISON: ??There are no prior studies available for comparison at this time. ?? FINDINGS AND Resulting Agency Comment [id number] Procedure Note Rupali Barrios MD - 07/22/2024 [...] possible to obtain thecompleted interpretation. Workstation ID: [id number] [facility] XR PROCEDURES Final Result documented in this encounter Visit Diagnoses Diagnosis Acute pain of left shoulder documented in this encounter Care Teams Drier And Pulverizer Tender Relationship Specialty Start Date End Date Bijal Fox, DIGITAL PROGRAM MANAGER [address] [place] [address] PCP - General Family Medicine 05/30/24 documented as of this encounter
--- OUTSIDE RECORDS SUMMARY | 2024-07-31 16:23 | XMS_ITS | Encounter Summary ---
Author Organization [facility] Address [address] [place] [address] Care Team Providers Care Sales Project Engineer Name Role Phone Bijal Fox NP Primary Care Provider [phone] Encounter Details Date Type Department Care Team (Late st Contact Info) Description 07/13/2024 10:30 AM EST Lab [facility] [address] [place] [address] Heart failure, unspecified HF chronicity, unspecified heart failure type (HCC) (Primary Dx); Hyperlipidemia, unspecified hyperlipidemia type; Myxedema heart disease Social History Tobacco Use Types Packs/Day Years Used Date Smoking Tobacco: Former Smokeless Tobacco: Never Comments:: Alcohol Use Standard Drinks/Week Comments Not Currently 0 (1 standard drink = 0.6 oz pur e alcohol) [facility] Utilities Answer Date Recorded In [...] Upcoming Encounters Date Type Department Care Team ([facility] st Contact Info) Description 08/01/2024 2:00 PM EDT Follow-Up [facility] Nephrology [address] [place] [address] [address] [place] [address] John Hendricks MD [address] [address] 09/18/2024 11:00 AM EDT Follow-Up [facility] [address] [place] [address] MarvinJeffery PA [address] [place] [address] 01/08/2025 10:00 AM EDT Follow-Up [address] Cardiology [address] [place] [address] Mabel Onofre NP [address] [place] [address] documented as of this encounter Procedures * Due to [place] state law, this organization might not be [...] in this encounter Results * Due to [place] state law, this organization might not be sharing negative HIV tests. * T4, Free (07/13/2024 10:20 AM EST) Free T4 1.24 0.80 - 1.80 ng/dL 07/13/2024 11:15 AM EST [facility] Comment: Females: (ng/dL) First Trimester [...] 07/13/2024 10:29 AM EST us Magy Sawyer LINER HELPER LAB BLOOD ORDERABLES Final Res ult [facility] [address] [place] [address], [place] [phone] * TSH (07/13/2024 10:20 AM EST) TSH 3.750 0.270 - 4.200 uIU/mL 07/13/2024 11:15 AM EST [facility] Comment: Females: 1st trimester ? 0.150-4.000 ??IU/mL 2nd trimester ?? 0.310-4.170 ?IU/mL 3rd trimester ?0.380-4.150 ?IU/mL Blood Structure of peripheral vein / Unknown Venipuncture / Unknown 07/13/2024 10:20 AM EST 07/13/2024 10:29 AM EST us Magy Sawyer LINER HELPER LAB BLOOD ORDERABLES Final Res ult [facility] [address] [place] [address], [place] [phone] * (ABNORMAL) Comprehensive Metabolic Panel (07/13/2024 10:20 AM EST) NA 142 136 - 145 mmol/L 07/13/2024 11:15 AM EST [facility] K 4.6 3.5 - 5.1 mmol/L 07/13/2024 11:15 AM EST [facility] Cl 104 98 - 109 mmol/L 07/13/2024 11:15 AM EST [facility] CO2 28 22 - 32 mmol/L 07/13/2024 11:15 AM EST [facility] Anion Gap 15 >=0 07/13/2024 11:15 AM EST [facility] Glucose 94 60 - 99 mg/dL 07/13/2024 11:15 AM EST [facility] Creatinine 1.40(H) 0.50 - 1.12 mg/dL 07/13/2024 11:15 AM EST [facility] Calcium 9.4 8.4 - 10.4 mg/dL 07/13/2024 11:15 AM EST [facility] Total Protein 6.4(L) 6.6 - 8.7 g/dL 07/13/2024 11:15 AM EST [facility] Albumin 3.7 3.5 - 5.0 g/dL 07/13/2024 11:15 AM EST [facility] Bilirubin, Total 0.4 0.2 - 1.2 mg/dL 07/13/2024 11:15 AM EST [facility] Alkaline Phosphatase 113 40 - 129 U/L 07/13/2024 11:15 AM EST [facility] AST 25 0 - 33 U/L 07/13/2024 11:15 AM EST [facility] ALT 33 <=33 U/L 07/13/2024 11:15 AM EST [facility] BUN 20 8 - 23 mg/dL 07/13/2024 11:15 AM EST [facility] eGFR 40(L) >=60 mL/min/1. 73m2 07/13/2024 11:15 AM EST [facility] Comment:The estimated glomer ular [...] - 4.2 g/dL 07/13/2024 11:15 AM EST [facility] A/G Ratio 1.4(L) 1.5 - 3.0 07/13/2024 11:15 AM EST [facility] Blood Structure of peripheral vein / Unknown Venipuncture / Unknown 07/13/2024 10:20 AM EST 07/13/2024 10:29 AM EST us Magy Sawyer NP LAB BLOOD ORDERABLES Final Res ult [facility] [address] [facility] [address] [place] [address], * Lipid panel (07/13/2024 10:20 AM EST) Cholesterol 259 mg/dL 07/13/2024 11:15 AM EST [facility] Comment: DESIRABLE: <200 mg/dL BORDERLINE HIGH: 200-239 mg/dL HIGH: >239 mg/dL Triglycerides 123 mg/dL 07/13/2024 11:15 AM EST [facility] Comment: NORMAL: <150 mg/dL BORDERLINE HIGH: 150-199 mg/dL HIGH: 200-499 mg/dL VERY HIGH >499 mg/dL Cholesterol, HDL 72 mg/dL 07/13/19 11:15 AM EST [facility] Comment: DESIRABLE: >60 mg/dL BORDERLINE: 40-59 mg/dL UNDESIRABLE: <40 mg/dL LDL Cholesterol 162 mg/dL 11:15 AM EST [facility] Comment: OPTIMAL: <100 mg/dL NEAR OPTIMAL: <130 mg/dL BORDERLINE HIGH: 130-159 mg/dL HIGH: 160-189 mg/dL VERY HIGH: >189 mg/dL VLDL 24.6 mg/dL 07/13/2024 11:15 AM EST [facility] Cholesterol/HDL Ratio 3.6 07/13/2024 11:15 AM EST [facility] Blood Structure of peripheral vein / Unknown Venipuncture / Unknown 07/13/2024 10:20 AM EST 07/13/2024 10:29 AM EST us Magy Sawyer NP LAB BLOOD ORDERABLES Final Res ult Performing Organization Address City/State/[facility] Co de Phone Number [facility] [address] [place] [address], * (ABNORMAL) N-terminal ProBrain Natriuretic Peptide - [facility]/ANITHAV/Nicole Only (07/13/2024 10:20 AM EST) Pro-B-Type Natriuretic Peptide 957(H) <=900 pg/mL 07/13/2024 11:02 AM EST [facility] Comment: RULE IN CHF [...] 07/13/2024 10:29 AM EST us Magy Sawyer LINER HELPER LAB BLOOD ORDERABLES Final Res ult [facility] [address] [facility] [address] [place] [address], [place] [phone] documented in this encounter Visit Diagnoses Diagnosis Heart failure, unspecified HF chronicity, unspecified heart failure type (HCC)- Primary Hyperlipidemia, unspecified hyperlipidemia type Myxedema heart disease Unspecified hypothyroidism documented in this encounter Care Teams Sales Project Engineer Relationship Specialty Start Date End Date Bijal Fox NP 100 [facility] [address] [place] [address] PCP - General Family Medicine 05/30/24 documented as of this encounter
--- OUTSIDE RECORDS SUMMARY | 2024-07-31 16:23 | XMS_ITS | Encounter Summary ---
Author Organization [facility] Address [address] [place] [address] Care Team Providers Care Orthopedics Teacher Name Role Phone Bijal Fox NP Primary Care Provider [phone] Encounter Details Date Type Department Care Team (Late st Contact Info) Description 07/19/2024 12:10 PM EST Lab [facility] Site Department [address] [place] [address] Swelling of lower extremity (Primary Dx); Urinary tract infection without hematuria, site unspecified Social History Tobacco Use Types Packs/Day Years Used Date Smoking Tobacco: Former Smokeless Tobacco: Never Comments:: Alcohol Use Standard Drinks/Week Comments Not Currently 0 (1 standard drink = 0.6 oz pur e alcohol) [facility] Utilities Answer Date Recorded In [...] Upcoming Encounters Date Type Department Care Team ([facility] st Contact Info) Description 08/01/2024 2:00 PM EDT Follow-Up [facility] Nephrology [address] [place] [address] [address] [place] [address] John Hendricks MD [address] [address] 09/18/2024 11:00 AM EDT Follow-Up [facility] [address] [place] [address] MarvinJeffery PA [address] [place] [address] 01/08/2025 10:00 AM EDT Follow-Up [address] Cardiology [address] [place] [address] Mabel Onofre NP [address] [address] documented as of this encounter Procedures * Due to [facility] law, this organization might not be [...] this encounter Results * Due to [place] state law, this organization might not be sharing negative HIV tests. * Urine Culture, Routine (07/19/2024 10:59 AM EST) Urine Culture <10,000 CFU/mL mixed gram positives; multiple organisms are present, suggestive of contamination at the time of collection. [place] [facility] 07/20/2024 8:13 AM EST [facility] Urine Urine specimen collection, clean catch / Unknown Non-Blood Collection / Unknown 07/19/2024 10:59 AM EST 07/19/2024 11:16 AM EST us Bijal Fox NP LAB MICROBIOLOGY - GENERAL MICHAEL CALHOUN Final Result Performing Organization Address City/State/[facility] Co de Phone Number [facility] [address] [facility] [address] [place] [address], [place] [phone] * (ABNORMAL) Basic Metabolic Panel (07/19/2024 10:59 AM EST) Pathologist [facility] NA 142 136 - 145 mmol/L 07/19/2024 11:41 AM EST [facility] K 4.0 3.5 - 5.1 mmol/L 07/19/2024 11:41 AM EST [facility] Cl 103 98 - 109 mmol/L 07/19/2024 11:41 AM EST [facility] CO2 29 22 - 32 mmol/L 07/19/2024 11:41 AM EST [facility] BUN 22 8 - 23 mg/dL 07/19/2024 11:41 AM EST [facility] Creatinine 1.42(H) 0.50 - 1.12 mg/dL 07/19/2024 11:41 AM EST [facility] Glucose 108(H) 60 - 99 mg/dL 07/19/2024 11:41 AM EST [facility] Calcium 8.9 8.4 - 10.4 mg/dL 07/19/2024 11:41 AM EST [facility] Anion Gap 14 >=0 07/19/2024 11:41 AM EST [facility] eGFR 39(L) >=60 mL/min/1. 73m2 07/19/2024 11:41 AM EST [facility] Comment:The estimated glomer ular filtration rate [...] ORDERABLES Final Res ult Performing Organization Address [facility] Co de Phone Number [facility] [address] [place] [address] [address] [place] [address], [place] [phone] * N-terminal ProBrain Natriuretic Peptide - [facility] LEONARDO/LONI/Nicole Only (07/19/2024 10:59 AM EST) Pro-B-Type Natriuretic Peptide 281 <=900 pg/mL 07/19/2024 11:43 AM EST [facility] Comment: RULE IN CHF >/= 450 [...] ORDERABLES Final Res ult Performing Organization Address City/[facility] Co de Phone Number [facility] [address] [place] [address], documented in this encounter Visit Diagnoses Diagnosis Swelling of lower extremity- Primary Urinary tract infection without hematuria, site unspecified documented in this encounter Care Teams Orthopedics Teacher Relationship Specialty Start Date End Date Bijal Fox NP 100 [facility] [address] [place] [address] PCP - General Family Medicine 05/30/24 documented as of this encounter
--- OUTSIDE RECORDS SUMMARY | 2024-07-31 16:23 | XMS_ITS | Encounter Summary ---
Author Organization [facility] Address [address] [place] [address] Care Team Providers Care Ecommerce Manager Name Role Phone Bijal Fox ACID CORRECTION HAND Primary Care Provider [phone] Encounter Details Date Type Department Care Team (Late st Contact Info) Description 07/16/2024 Lab Requisition [facility] [address] [place] [address] Bijal Fox, ACID CORRECTION HAND 100 [facility] [address] [place] [address] Urinary tract infection, site not specified Social [...] EDT Follow-Up [facility] Nephrology [address] [place] [address] 201 [place] [address] John Hendricks MD [address] [address] 09/18/2024 11:00 AM EDT Follow-Up [facility] [address] [place] [address] MarvinJeffery PA [address] [place] [address] 01/08/2025 10:00 AM EDT Follow-Up [address] Cardiology [address] [place] [address] Mabel Onofre NP [address] [place] [address] documented as of this encounter Procedures * Due to [place] state law, this organization might not be sharing negative HIV tests. Procedure Name Priority Date/Time Associated Diagnosis Comments URINE CULTURE, ROUTINE Routine 07/16/2024 12:33 PM EST Urinary tract infection, site not specified documented in this encounter Results * Due to [facility] law, this organization might not be sharing negative HIV tests. * (ABNORMAL) Urine Culture, Routine (07/16/2024 12:33 PM EST) Urine Culture >100,000 CFU/mL Escherichia coli(A) MINIMUM INHIBITORY CONCENTRATION (VLADIMIR) 07/18/2024 7:44 AM EST [facility] Urine specimen collection, [...] MICROBIOLOGY - GENERAL MICHAEL CALHOUN Final Result [facility] [address] [facility] [address] [place] [address], documented in this encounter Visit Diagnoses Diagnosis Urinary tract infection, site not specified documented in this encounter Care Teams Ecommerce Manager Relationship Specialty Start Date End Date Bijal Fox NP [address] [place], [place] [address] [place] [address] PCP - General Family Medicine 05/30/24 documented as of this encounter
--- OUTSIDE RECORDS SUMMARY | 2024-07-31 16:23 | XMS_ITS | Encounter Summary ---
Author Organization [facility] Address [address] [place] [address] Care Team Providers Care Management Intern Name Role Phone Bijal Fox ORDER PLANNER Primary Care Provider [phone] Reason for Referral * Rehabilitation (Routine) - Authorized Specialty Diagnoses / Procedures Referred By Contact Referred To Contact Physical Medicine and Rehabilitation / Orthopaedic Surgery Diagnoses Primary osteoarthritis of left shoulder Jeffery Wong PA [address] [place] [address] Phone: tel:[phone] fax:[phone] Sonny Reed MD [address] [place] [address] Phone: tel:[phone] fax:[phone] Referral ID Status Reason Start Date Expiration Date Visits Requested Visits Authorized [id number] Authorized Specialty Services Required 07/22/2024 01/21/2026 6 6 Reason for Visit * Reason Comments Pain * Consultation (Routine) - Authorized Specialty Diagnoses / Procedures Referred By Contac t Referred To Contact Orthopaedic Surgery Diagnoses Osteoarthritis of left shoulder Bijal Fox NP [address] [place] [address] Phone: tel: fax: Jeffery Wong PA [address] [place] [address] Phone: tel: fax: Referral ID Status Reason Start Date Expiration Date V isits Requested Visits Authorized [id number] Authorized 07/18/2024 07/18/2025 6 6 Encounter Details Date Type Department Care Team (Latest Contact Info) Description 07/22/2024 11:15 AM EST Office Visit [facility] [address] [place] [address] Marvin, AYAD Gil [address] [place] [address] [id number] Primary osteoarthritis of left shoulder (Primary Dx); Rotator cuff tear arthropathy of left shoulder Social History Tobacco Use Types Packs/Day Years Used Date Smoking Tobacco: Former Smokeless Tobacco: Never Comments:: Alcohol Use Standard Drinks/Week Comments Not Currently 0 (1 standard drink = 0.6 oz pur e alcohol) [facility] Utilities Answer Date Recorded In the past [...] had a shoulder arthroscopy in 2021 in [place]. She has had an ACFD C4-5. She [...] views of the left shoulder taken at [facility] on 07/22/24 include AP, axillary, Y-view reveal no acute fracture or dislocation seen. The joint spaces are decreased. Left shoulder MRI 04/07/22: 1. Moderate supraspinatus tendinopathy with a full-thickness, partial width, mildly retracted tear.No muscle atrophy. 2. Moderate infraspinatus tendinopathy with a low-grade interstitial partial tear. 3. Complete tear of the long head biceps tendon with retraction distal to the bicipital groove. 4. Bfnp-cg-yvrzxhlr glenohumeral joint osteoarthritis with a small to [...] 2:00 PM EDT Follow-Up [facility] Nephrology [address] [address] John Hendricks MD [address] [place] [address] 09/18/2024 11:00 AM EDT Follow-Up [facility] [address] [place] [address] MarvinJeffery PA [address] [place] [address] 01/08/2025 10:00 AM EDT Follow-Up [address] Cardiology 100 [facility] 205 [place] [address] Mabel Onofre NP 100 [facility] 205 [place] [address] Scheduled Referrals Name Type Priority Associated Diagnoses Orde r Schedule Ambulatory referral to Physicial Medicine Rehab Outpatient Referral Routine Primary osteoarthritis of left shoulder Expected: 07/22/2024, Expires: 01/22/2025 documented as of this encounter Visit Diagnoses Diagnosis Primary osteoarthritis of left shoulder- Primary Rotator cuff tear arthropathy of left shoulder documented in this encounter Care Teams Management Intern Relationship Specialty Start Date End Date Bijal Fox NP [address] [place] [address] [address] [place] [address] PCP - General Family Medicine 05/30/24 documented as of this encounter
--- OUTSIDE RECORDS SUMMARY | 2024-07-31 16:23 | XMS_ITS | Encounter Summary ---
Author Organization [facility] Address [address] [place] [address] Care Team Providers Care Special Procedures Nurse Name Role Phone Bijal Fox NP Primary Care Provider [phone] Encounter Details Date Type Department Care Team (Latest Contact Info) Description 07/16/2024 10:45 AM EST - 07/16/2024 11:59 PM [facility] Hospital Encounter [facility] Xray Department 100 [place] [address] Heart failure, unspecified HF chronicity, unspecified heart failure type (HCC) Discharge Disposition: Home or Self Care () Social History Tobacco Use Types Packs/Day Years Used Date Smoking Tobacco: Former Smokeless Tobacco: Never Comments:: Alcohol Use Standard Drinks/Week Comments Not Currently 0 (1 standard drink = 0.6 oz pur e alcohol) [facility] Utilities Answer Date Recorded In the [...] Upcoming Encounters Date Type Department Care Team ([facility] st Contact Info) Description 08/01/2024 2:00 PM EDT Follow-Up [facility] Nephrology [address] [place] [address] 201 [place] [address] John Hendricks MD 123 [facility] [address] [place] [address] 09/18/2024 11:00 AM EDT Follow-Up [facility] 119 [place] [address] Marvin, AYAD Gil 119 [place] [address] 01/08/2025 10:00 AM EDT Follow-Up [address] Cardiology 100 [facility] 205 [place] [address] Mabel Onofre, MEY 100 [facility] 205 [place] [address] documented as of this encounter Procedures * Due to [place] [employer] law, this organization might not be sharing negative HIV tests. Procedure Name Priority Date/Time Associated Diagnosis Comments XR CHEST 2 VW Routine 07/16/2024 11:04 AM EST Heart failure, unspecified HF chronicity, unspecified heart failure type (HCC) documented in this encounter Results * Due to [place] [employer] law, this organization might not be [...] obtain the completed interpretation. ? Workstation ID: [id number] Narrative 07/17/2024 8:14 AM EST COMPARISON: ??06/22/2024 FINDINGS AND Resulting Agency Comment [id number] Procedure Note Calvin Katz MD - 07/17/2024 COMPARISON: 06/22/2024 FINDINGS AND IMPRESSION: No change. Heart normal. Lungs and pleural spaces clear. Cervical spinefusion hardware noted. If this radiology report contains a blank impression section, it is anincomplete radiology report. Please contact the interpreting radiologistor applicable radiology division as soon as possible to obtain thecompleted interpretation. Workstation ID: [id number] us Magy Sawyer TANK TRUCK MILK RECEIVER IMG XR PROCEDURES Final Result documented in this encounter Visit Diagnoses Diagnosis Heart failure, unspecified HF chronicity, unspecified heart failure type (HCC) documented in this encounter Care Teams Special Procedures Nurse Relationship Specialty Start Date End Date Bijal Fox NP [address] [place] [address] PCP - General Family Medicine 05/30/24 documented as of this encounter
--- OUTSIDE RECORDS SUMMARY | 2024-07-31 16:23 | XMS_ITS | Encounter Summary ---
Author Organization [facility] Address [address] [place] [address] Care Team Providers Care Rn Correctional Name Role Phone Bijal Fox DOCUMENTATION IMPROVEMENT SPECIALIST Primary Care Provider [phone] Encounter Details Date Type Department Care Team (Late st Contact Info) Description 07/16/2024 Orders Only [facility] Site Department 100 [place] [address] Bijal Fox, MEY [address] [employer] [address] [place] [address] Urinary tract infection without hematuria, site unspecified (Primary Dx) Social History Tobacco Use Types Packs/Day Years Used Date Smoking Tobacco: Former Smokeless Tobacco: Never Comments:: Alcohol Use Standard Drinks/Week Comments Not Currently 0 (1 standard drink = 0.6 oz pur e alcohol) [facility] Utilities Answer Date Recorded [...] Description 08/01/2024 2:00 PM EDT Follow-Up [facility] Nephrology [address] [place] [address] John Hendricks MD [address] [address] 09/18/2024 11:00 AM EDT Follow-Up [facility] 119 [place] [address] MarvinJeffery PA 119 [place] [address] 01/08/2025 10:00 AM EDT Follow-Up [address] Building Cardiology [address] [place] [address] Mabel Onofre NP [address] [place] [address] documented as of this encounter Results * Due to [place] state law, this organization might not be sharing negative HIV tests. * Urine Culture, Routine (07/19/2024 10:59 AM EST) Urine Culture <10,000 CFU/mL mixed gram positives; multiple organisms are present, suggestive of contamination at the time of collection. [facility] MAN[facility] 07/20/2024 8:13 AM EST [facility] Urine Urine specimen collection, clean catch / Unknown Non-Blood Collection / Unknown 07/19/2024 10:59 AM EST 07/19/2024 11:16 AM EST Bijal Fox NP LAB MICROBIOLOGY - GENERAL [facility] Final Result -MAIN LAB [address] [place] [address], documented in this encounter Visit Diagnoses Diagnosis Urinary tract infection without hematuria, site unspecified- Primary documented in this encounter Care Teams Rn Correctional Relationship Specialty Start Date End Date Bijal Fox, MEY [address] [employer] [address] [place] [address] PCP - General Family Medicine 05/30/24 documented as of this encounter
--- OUTSIDE RECORDS SUMMARY | 2024-07-31 16:23 | XMS_ITS | Encounter Summary ---
Author Organization [facility] Address [address] [place] [address] Care Team Providers Care Crude Oil Treater Name Role Phone Brandyn Pagan MD Primary Care Provider Unavaila Radha Fink NP Unavailable Unavailable Unknown Pcp, Non Rmg Primary Care Provider Unava ilable Encounter Details Date Type Department Care Team (Late st Contact Info) Description 11/02/2015 Orders Only [facility] [address] [place] [address] Radha Spangler NP Social History Tobacco Use [...] encounter Procedures * Due to [place] [employer] law, this organization might not be sharing negative HIV tests. Procedure Name Priority Date/Time Associated Diagnosis Comments ALANINE AMINOTRANSFERASE (ALT), SERUM Routine 11/02/2015 12:44 PM EDT Hyperlipidemia, unspecified hyperlipidemia type CREATINE KINASE (CK), SERUM Routine 11/02/2015 12:44 PM EDT Hyperlipidemia, unspecified hyperlipidemia type documented in this encounter Results * Due to [place] [employer] law, this organization might not be sharing negative HIV tests. * CREATINE KINASE (CK), SERUM (11/02/2015 12:44 PM EDT) CPK 106 29 - 143 U/L [facility] Comment:{CREATINE KINASE, TO KENZIE {[id number]) 11/02/2015 12:4 4 PM EDT 11/03/2015 2:14 AM EDT Narrative Resulting Agency Comment [id number] Radha Spangler PROFESSOR OF [employer] [facility] SAME DAY RESULT Final Re sult [facility] [address] [place] [address] * ALANINE AMINOTRANSFERASE (ALT), SERUM (11/02/2015 12:44 PM EDT) ALT (SGPT) 22 6 - 29 U/L [facility] Comment:{ALT {[id number]) 11/02/2015 12:4 4 PM EDT 11/03/2015 2:14 AM EDT Narrative Resulting Agency Comment [id number] us Radha Spangler PROFESSOR OF [employer] [facility] SAME DAY RESULT Final Re sult [facility] [address] [place] [address] documented in this encounter Visit Diagnoses Diagnosis Hyperlipidemia, unspecified hyperlipidemia type documented in this encounter Care Teams Crude Oil Treater Relationship Specialty Start Date End Date Brandyn Pagan MD PCP - General Internal Medicine 08/07/15 02/02/17 Radha Spangler NP PCP - Backup PCP Internal Medicine 01/11/16 02/02/17 Unknown Pcp, Non Rmg PCP - General 02/03/17 documented as of this encounter
--- OUTSIDE RECORDS SUMMARY | 2024-07-31 16:23 | XMS_ITS | Encounter Summary ---
Author Organization [facility] Address [address] [place] [address] Care Team Providers Care Fishing Tackle Repairer Name Role Phone Bijal Fox WREATH MAKER Primary Care Provider [phone] Encounter Details Date Type Department Care Team (Late st Contact Info) Description 07/20/2024 Orders Only [facility] Site Department 100 [place] [address] Magy Sawyer NP [address] [address] Swelling of limb (Primary Dx) Social History [...] Info) Description 08/01/2024 2:00 PM EDT Follow-Up [facility] Nephrology [address] [place] [address] 201 [place] [address] John Hendricks MD [address] [address] 09/18/2024 11:00 AM EDT Follow-Up [facility] [address] [place] [address] MarvinJeffery PA 119 [place] [address] 01/08/2025 10:00 AM EDT Follow-Up [address] Cardiology [address] [place] [address] Mabel Onofre NP [address] [place] [address] Scheduled Orders Name Type Priority Associated Diagnoses Orde r Schedule N-terminal [facility] Natriuretic Peptide - [facility]/V/[place] Only Lab Routine Swelling of limb Expected: 07/20/2024, Expires: 07/20/2025 Basic Metabolic Panel Lab Routine Swelling of limb Expected: 07/20/2024, Expires: 07/20/2025 documented as of this encounter Visit Diagnoses Diagnosis Swelling of limb- Primary documented in this encounter Care Teams Fishing Tackle Repairer Relationship Specialty Start Date End Date Bijal Fox NP [address] [place] [address] PCP - General Family Medicine 05/30/24 documented as of this encounter
--- OUTSIDE RECORDS SUMMARY | 2024-07-31 16:23 | XMS_ITS | Encounter Summary ---
Author Organization [facility] Address [address] [place] [address] Care Team Providers Care Tool Radial Drill Press Set Up Operator Name Role Phone Bijal Fox NP Primary Care Provider [phone] Reason for Visit * Reason Comments Injections * Rehabilitation (Routine) - Authorized Specialty Diagnoses / Procedures Referred By Contact Referred To Contact Physical Medicine and Rehabilitation / Orthopaedic Surgery Diagnoses Primary osteoarthritis of left shoulder MarvinJeffery PA [address] [place] [address] Phone: tel:[phone] fax:[phone] Sonny Reed MD [address] [place] [address] Phone: tel:[phone] fax: Referral ID Status Reason Start Date Expiration Date Visits Requested Visits Authorized [id number] Authorized Specialty Services Required 07/22/2024 01/21/2026 6 6 Encounter Details Date Type Department Care Team (Latest Contact Info) Description 07/31/2024 10:15 AM EDT Hospital Encounter [facility] [address] [place] [address] Sonny Reed MD [address] [place] [address] Chronic left shoulder pain (Primary Dx); Left shoulder pain, unspecified chronicity Social History Tobacco Use Types Packs/Day Years Used Date Smoking Tobacco: Former Smokeless Tobacco: Never Comments:: Alcohol Use Standard Drinks/Week Comments Not Currently 0 (1 standard drink = 0.6 oz pur e alcohol) [facility] Utilities Answer Date Recorded In [...] this encounter Discharge Instructions * Patient Instructions* Geir Wang RN - 07/31/2024 10:31 AM EDT [...] During Business Hours 8am-4pm Scheduling concerns - [phone] Clinical concerns - [phone] After normal business hours - If you [...] Patient's understanding of procedure matches consent: Yes [place] Protocol: Procedure consent matches procedure scheduled: Yes [...] stable condition Genie Vora : 1950 CSN: [id number] * Sonny Reed MD - 07/31/2024 10:38 [...] Upcoming Encounters Date Type Department Care Team ([facility] st Contact Info) Description 08/01/2024 2:00 PM EDT Follow-Up [facility] Nephrology [address] [place] [address] John Hendricks MD [address] [place] [address] 09/18/2024 11:00 AM EDT Follow-Up [facility] [address] [place] [address] Marvin, AYAD Gil [address] [place] [address] 01/08/2025 10:00 AM EDT Follow-Up [address] Cardiology 100 [facility] 205 [place] [address] Mabel Onofre, MEY [address] [facility] [address] [place] [address] documented as of this encounter Procedures * Due to [facility] law, this organization might not be sharing negative HIV tests. Procedure Name Priority Date/Time Associated Diagnosis Comments CHG FLUOROSCOPIC GUIDANCE NEEDLE PLACEMENT ADD ON Routine 07/31/2024 10:15 AM EDT Left shoulder pain, unspecified chronicity [place] ARTHROCENTESIS ASPIR&/INJ MAJOR JT/BURSA W/O US Routine 07/31/2024 10:15 AM EDT Left shoulder pain, unspecified chronicity documented in this encounter Results * Due to [place] [employer] law, this organization might not be sharing negative HIV tests. * [place] ARTHROCENTESIS ASPIR&/INJ MAJOR JT/BURSA W/O US, CHG [...] Patient's understanding of procedure matches consent: Yes [place] Protocol: ? Procedure consent matches procedure scheduled: [...] mg documented in this encounter Care Teams Tool Radial Drill Press Set Up Operator Relationship Specialty Start Date End Date Bijal Fox NP [address] [place] [address] PCP - General Family Medicine 05/30/24 documented as of this encounter
--- OUTSIDE RECORDS SUMMARY | 2024-07-31 16:24 | XMS_ITS | Encounter Summary ---
Author Organization [facility] Address [address] [place] [address] Care Team Providers Care Fare Collector Name Role Phone Brandyn Pagan MD Primary Care Provider Radha Cuevas NP Unavailable Unavailable Unknown Pcp, Non Rmg Primary Care Provider Unava ilable Encounter Details Date Type Department Care Team (Late st Contact Info) Description 11/13/2015 Orders Only [facility] [address] [place] [address] Brandyn Pagan MD Social History Tobacco Use [...] this encounter Procedures * Due to [place] [employer] law, this organization might not be [...] this encounter Results * Due to [place] [employer] law, this organization might not be sharing negative HIV tests. * (ABNORMAL) URINALYSIS, DIP ONLY ( SITE STAT ONLY) (11/13/2015 1:00 PM EDT) COLOR (URINE) YELLOW [facility] (CLIA# [id number]) APPEARANCE (URINE) CLEAR [facility] (CLIA# [id number]) SPECIFIC GRAVITY 1.015 1.001 - 1.035 [facility] (CLIA# [id number]) PH (URINE) 6.0 5.0 - 8.0 [facility] (CLIA# [id number]) PROTEIN (URINE) NEGATIVE Neg [facility] (CLIA# [id number]) GLUCOSE (URINE) NEGATIVE Neg [facility] (CLIA# [id number]) Ketones (Urine) NEGATIVE Neg [facility] (CLIA# [id number]) BILIRUBIN (URINE) NEGATIVE Neg [facility] (CLIA# [id number]) BLOOD (URINE) NEGATIVE Neg [facility] (CLIA# [id number]) Leukocyte esterase (Urine) 1+(A) [facility] (CLIA# [id number]) NITRITE (URINE) NEGATIVE Neg [facility] (CLIA# [id number]) Urine specimen obtained by clean catch procedure (specimen) 11/13/2015 1:00 PM EDT Narrative [facility] (CLIA# [id number]) - 11/13/2015 1:00 PM EDT Micro and culture already ordered per provider. us Brandyn Pagan MD LAB SAME DAY RESULT Final Resul t [facility] (CLIA# [id number]) [address] [place] [address] * CREATINE KINASE (CK), SERUM (11/13/2015 12:24 PM EDT) CPK 143 29 - 143 U/L [facility] Comment:{CREATINE KINASE, TO KENZIE {[id number]) 11/13/2015 12:2 4 PM EDT 11/13/2015 10:19 PM EDT Narrative Resulting Agency Comment [id number] us Brandyn Pagan MD LAB SAME DAY RESULT Final Resul t Performing Organization Address [facility] de Phone Number [facility] [address] [place] [address] * ALANINE AMINOTRANSFERASE (ALT), SERUM (11/13/2015 12:24 PM EDT) ALT (SGPT) 29 6 - 29 U/L [facility] Comment:{ALT {[id number]) 11/13/2015 12:2 4 PM EDT 11/13/2015 10:19 PM EDT Narrative Resulting Agency Comment [id number] Brandyn Pagan MD LAB SAME DAY RESULT Final Resul t Performing Organization Address [facility] de Phone Number [facility] [address] [place] [address] * C-REACTIVE PROTEIN (CRP) - INFLAMMATION (11/13/2015 12:24 PM EDT) C reactive protein 0.28 <0.80 mg/dL [facility] Comment: {C-REACTIVE PROTEIN {[id number]) Please be advised that patients taking Carboxypenicillins may exhibit falsely decreased C-Reactive Protein levels due to an analytical interference in this assay. 11/13/2015 12:2 4 PM EDT 11/13/2015 10:19 PM EDT Narrative Resulting Agency Comment [id number] Brandyn Pagan MD LABORATORY Final Result Performing Organization Address [facility] de Phone Number [facility] [address] [place] [address] * ERYTHROCYTE SEDIMENTATION RATE (ESR), WESTERGREN (11/13/2015 12:24 PM EDT) Sedimentation Rate [place] (ESR) 6 < OR = 30 mm/h [facility] Comment:{SED RATE BY MODIFBILLIE D JAZMINEREN {[id number]) 11/13/2015 12:2 4 PM EDT 11/13/2015 10:19 PM EDT Narrative Resulting Agency Comment [id number] us Brandyn Pagan MD LAB SAME DAY RESULT Final Resul t [facility] [address] [place] [address] * (ABNORMAL) CULTURE, URINE, ROUTINE (11/13/2015 12:24 PM EDT) Bacteria culture (Urine) SEE NOTE(A) [facility] Comment: {CULTURE, URINE, ROUTINE {[id number]) ??CULTURE, URINE, ROUTINE ??MICRO NUMBER: ?[id number] ??TEST STATUS: ? FINAL ??SPECIMEN SOURCE: ?? [...] 10:19 PM EDT Narrative Resulting Agency Comment [id number] us Brandyn Pagan MD LABORATORY Final Result [facility] [address] [place] [address] * (ABNORMAL) URINALYSIS, MICROSCOPIC (11/13/2015 12:24 PM EDT) WBC (Urine) 10-20(A) < OR = 5 /HPF [facility] Comment:{WBC {[id number]) RBC (Urine Sed) NONE SEEN < OR = 2 /HPF [facility] Comment:{RBC {[id number]) Epithelial cells.squamous (Urine sed) 0-5 < OR = 5 /HPF [facility] Comment:{SQUAMOUS EPITHELIAL CELLS {[id number]) Bacteria (Urine) NONE SEEN NONE SEEN /HPF [facility] Comment:{BACTERIA {[id number]) Hyaline casts (Urine sed) NONE SEEN NONE SEEN /LPF [facility] Comment:{HYALINE CAST {[id number]) 11/13/2015 12:2 4 PM EDT 11/13/2015 10:19 PM EDT Narrative Resulting Agency Comment [id number] us Brandyn Pagan MD LAB SAME DAY RESULT Final Resul t [facility] [address] [place] [address] documented in this encounter Visit Diagnoses Diagnosis Urinary tract infection, site unspecified Muscle ache Mylagia and myositis, unspecified Routine history and physical examination of adult Routine general medical examination at a health care facility documented in this encounter Care Teams Fare Collector Relationship Specialty Start Date End Date Brandyn Pagan MD PCP - General Internal Medicine 08/07/15 02/02/17 Radha Spangler NP PCP - Backup PCP Internal Medicine 01/11/16 02/02/17 Unknown Pcp, Non Rmg PCP - General 02/03/17 documented as of this encounter
--- OUTSIDE RECORDS SUMMARY | 2024-07-31 16:24 | XMS_ITS | Encounter Summary ---
Author Organization [facility] Address [address] [place] [address] Care Team Providers Care Shank Faker Name Role Phone Brandyn Pagan MD Primary Care Provider Unavaila Radha Fink NP Unavailable Unavailable Unknown Pcp, Non Rmg Primary Care Provider Unava ilable Encounter Details Date Type Department Care Team ([facility] st Contact Info) Description 12/29/2015 Orders Only [facility] [address] [place] [address] Radha Spangler NP Social History Tobacco Use [...] encounter Procedures * Due to [place] [employer] law, this organization might not be sharing [...] encounter Results * Due to [place] [employer] law, this organization might not be sharing negative HIV tests. * (ABNORMAL) BASIC METABOLIC PANEL WITH (GFR) (12/29/2015 10:04 AM EDT) Glucose 98 65 - 99 mg/dL [facility] Comment: {GLUCOSE {[id number]) ? Fasting reference interval Urea Nitrogen Blood (BUN) 22 7 - 25 mg/dL [facility] Comment:{UREA NITROGEN (BUN) {[id number]) Creatinine 1.20(H) 0.50 - 0.99 mg/dL [facility] Comment: {CREATININE {[id number]) For patients >49 years of age, the reference limit for Creatinine is approximately 13% higher for people identified as -[place]orese. GFR 48(L) > OR = 60 mL/min/1. 73m2 [facility] Comment:{eGFR NON-AFR. AMERI CAN {[id number]) GFR () 55(L) > OR = 60 mL/min/1. 73m2 [facility] Comment:{eGFR AMERIC AN {[id number]) BUN/Creatinine Ratio 18 6 - 22 (calc) [facility] Comment:{BUN/CREATININE RATI O {[id number]) Sodium 138 135 - 146 mmol/L [facility] Comment:{SODIUM {[id number]) Potassium 5.1 3.5 - 5.3 mmol/L [facility] Comment:{POTASSIUM {[id number]) Chloride 106 98 - 110 mmol/L [facility] Comment:{CHLORIDE {[id number]) Carbon dioxide 25 20 - 31 mmol/L [facility] Comment:{CARBON DIOXIDE {[id number]) Calcium 9.7 8.6 - 10.4 mg/dL [facility] Comment:{CALCIUM {[id number]) 12/29/2015 10:0 4 AM EDT 12/29/2015 [...] NP LABORATORY Final Result [facility] [address] [place] [address] * (ABNORMAL) LIPID PANEL WITH REFLEX TO DIRECT LDL (12/29/2015 10:04 AM EDT) Cholesterol 232(H) 125 - 200 mg/dL [facility] Comment:{CHOLESTEROL, TOTAL {[id number]) HDL Cholesterol 80 > OR = 46 mg/dL [facility] Comment:{HDL CHOLESTEROL {[id number]) Triglyceride 112 <150 mg/dL [facility] Comment:{TRIGLYCERIDES {[id number]) LDL Cholesterol 130(H) <130 mg/dL (calc) [facility] Comment: {LDL-CHOLESTEROL {[id number]) Desirable range <100 mg/dL for patients with CHD or diabetes and <70 mg/dL for diabetic patients with known heart disease. CHOL/HDL Ratio 2.9 < OR = 5.0 (calc) [facility] Comment:{CHOL/HDLC RATIO {[id number]) Cholesterol Non-HDL 152 mg/dL (calc) [facility] Comment: {NON HDL CHOLESTEROL {[id number]) Target for non-HDL cholesterol is 30 mg/dL higher than LDL cholesterol target. 12/29/2015 10:0 4 AM EDT 12/29/2015 3:11 PM EDT Narrative Resulting Agency Comment [id number] Radha Spangler NP LABORATORY Final Result Performing Organization Address City/[facility]/ZIP Co de Phone Number [facility] [address] [place] [phone] * ALANINE AMINOTRANSFERASE (ALT), SERUM (12/29/2015 10:04 AM EDT) ALT (SGPT) 25 6 - 29 U/L [facility] Comment:{ALT {[id number]) 12/29/2015 10:0 4 AM EDT 12/29/2015 3:11 PM EDT Narrative Resulting Agency Comment [id number] Radha Spangler NP LAB SAME DAY RESULT Final Re sult Performing Organization Address City/[facility] Co de Phone Number [facility] [address] [place] [address] documented in this encounter Visit Diagnoses Diagnosis Cervicodynia Cervicalgia Hyperlipidemia, unspecified hyperlipidemia type Essential hypertension with goal blood pressure less than 140/90 documented in this encounter Care Teams Shank Faker Relationship Specialty Start Date End Date Brandyn Pagan MD PCP - General Internal Medicine 08/07/15 02/02/17 Radha Spangler NP PCP - Backup PCP Internal Medicine 01/11/16 02/02/17 Unknown Pcp, Non Rmg PCP - General 02/03/17 documented as of this encounter
--- OUTSIDE RECORDS SUMMARY | 2024-07-31 16:24 | XMS_ITS | Encounter Summary ---
Author Organization [facility] Address [address] [place] [address] Care Team Providers Care Water Chemist Name Role Phone Brandyn Pagan MD Primary Care Provider Unavaila Radha Fink NP Unavailable Unavailable Unknown Pcp, Non Rmg Primary Care Provider Unava ilable Encounter Details Date Type Department Care Team (Late st Contact Info) Description 01/04/2017 Orders Only [facility] [address] [place] [address] Radha Spangler NP Social History Tobacco Use [...] 017 9:26 AM EDT) No Eineberg, Radha, [employer] documented as of this encounter Procedures * Due to [place] [employer] law, this organization might not be [...] encounter Results * Due to [place] [employer] law, this organization might not be sharing negative HIV tests. * (ABNORMAL) BASIC METABOLIC PANEL WITH (GFR) (01/04/2017 1:11 PM EDT) Glucose 97 65 - 99 mg/dL [facility] Comment:Fasting reference in [facility] Urea Nitrogen Blood (BUN) 27(H) 7 - 25 mg/dL [facility] Creatinine 1.18(H) 0.50 - 0.99 mg/dL [facility] Comment: For patients >49 years of age, the reference limit for Creatinine is approximately 13% higher for people identified as -Nepalese. GFR 48(L) > OR = 60 mL/min/1. [...] needs for GFR calculation. Resulting Agency Comment [id number] Radha Spangler NP LABORATORY Final Result Performing Organization Address [facility] Co de Phone Number [facility] [address] [place] [address] * HEPATIC FUNCTION PANEL (ALT,AST,ALK PH,BILI'S,TP,ALB) (01/04/2017 [...] 10:19 PM EDT Narrative Resulting Agency Comment [id number] Radha Spangler NP LABORATORY Final Result Performing Organization Address [facility] Co de Phone Number [facility] [address] [place] [address] * (ABNORMAL) HEMOGLOBIN A1C (01/04/2017 1:11 PM [...] 10:19 PM EDT Narrative Resulting Agency Comment [id number] Radha Spangler NP LABORATORY Final Result Performing Organization Address [facility] de Phone Number [facility] [address] [place] [address] * (ABNORMAL) LIPID PANEL WITH REFLEX TO [...] 10:19 PM EDT Narrative Resulting Agency Comment [id number] Radha Spangler NP LABORATORY Final Result Performing Organization Address [facility] de Phone Number [facility] [address] [place] [address] * (ABNORMAL) CBC INCLUDES DIFFERENTIAL AND PLATELET [...] 10:19 PM EDT Narrative Resulting Agency Comment [id number] Radha Spangler NP LAB SAME DAY RESULT Final Re sult [facility] [address] [place] [address] documented in this encounter Visit Diagnoses Diagnosis Nail discoloration Other specified disease of nail Transaminitis Nonspecific elevation of levels of transaminase or lactic acid dehydrogenase (LDH) Benign essential HTN Essential hypertension, benign CKD (chronic kidney disease), stage III (HCC) Chronic kidney disease, Stage III (moderate) documented in this encounter Care Teams Water Chemist Relationship Specialty Start Date End Date Brandyn Pagan MD PCP - General Internal Medicine 08/07/15 02/02/17 Radha Spangler NP PCP - Backup PCP Internal Medicine 01/11/16 02/02/17 Unknown Pcp, Non Rmg PCP - General 02/03/17 documented as of this encounter
--- OUTSIDE RECORDS SUMMARY | 2024-07-31 16:24 | XMS_ITS | Encounter Summary ---
Author Organization [facility] Address [address] [place] [address] Care Team Providers Care Paper Bag Press Operator Name Role Phone Bijal Fox LEAD RETAIL SALES ASSOCIATE Primary Care Provider [phone] Encounter Details Date Type Department Care Team (Late st Contact Info) Description 06/23/2024 Lab Requisition [facility] [address] [place] [address] Mj Mendenhall MD [address] [place] [address] Pneumonia due to other specified infectious organisms Social History Tobacco Use Types Packs/Day Years Used Date Smoking Tobacco: Former Smokeless Tobacco: Never Comments:: Alcohol Use Standard Drinks/Week Comments Not Currently 0 (1 standard drink = 0.6 oz pur e alcohol) [facility] Utilities Answer Date Recorded In [...] 2:00 PM EDT Follow-Up [facility] Nephrology [address] [place] [address] [address] [place] [address] John Hendricks MD [address] [address] 09/18/2024 11:00 AM EDT Follow-Up [facility] [address] [place] [address] MarvinJeffery PA [address] [place] [address] 01/08/2025 10:00 AM EDT Follow-Up [address] Cardiology [address] [place] [address] Mabel Onofre, MEY [address] [place] [address] documented as of this encounter Procedures * Due to [facility] law, this organization might not be sharing negative HIV tests. Procedure Name Priority Date/Time Associated Diagnosis Comments VITAMIN D, 25-HYDROXY, TOTAL, IMMUNOASSAY Routine 06/23/2024 6:00 AM EST Pneumonia due to other specified infectious organisms documented in this encounter Results * Due to [facility] law, this organization might not be sharing negative HIV tests. * (ABNORMAL) Vitamin D, 25-Hydroxy, Total, Immunoassay (06/23/2024 6:00 AM EST) Vitamin D 25-OH 21.50(L) 30.00 - 80.00 ng/mL 06/23/2024 8:52 AM EST [facility] Blood Structure of peripheral vein / Unknown 06/23/2024 6:00 AM EST 06/23/2024 7:54 AM EST us Mj Mendenhall MD LAB BLOOD ORDERABLES Final R esult [facility] [address] [facility] 2ND [place] [address], documented in this encounter Visit Diagnoses Diagnosis Pneumonia due to other specified infectious organisms documented in this encounter Care Teams Paper Bag Press Operator Relationship Specialty Start Date End Date Bijal Fox, LEAD RETAIL SALES ASSOCIATE [address] [facility] [address] [place] [address] PCP - General Family Medicine 05/30/24 documented as of this encounter
--- OUTSIDE RECORDS SUMMARY | 2024-07-31 16:24 | XMS_ITS | Encounter Summary ---
Author Organization [facility] Address [address] [place] [address] Care Team Providers Care End Maker Name Role Phone Brandyn Pagan MD Primary Care Provider Unavaila Radha Fink NP Unavailable Unavailable Unknown Pcp, Non Rmg Primary Care Provider Unava ilable Encounter Details Date Type Department Care Team (Late st Contact Info) Description 12/02/2016 Orders Only [facility] [address] [place] [phone] Brandyn Pagan MD Social History Tobacco Use [...] Cervicalgia documented in this encounter Care Teams End Maker Relationship Specialty Start Date End Date Brandyn Pagan MD PCP - General Internal Medicine 08/07/15 02/02/17 Radha Spangler NP PCP - Backup PCP Internal Medicine 8/22/16 9/14/17 Unknown Pcp, Non Rmg PCP - General 02/03/17 documented as of this encounter
--- OUTSIDE RECORDS SUMMARY | 2024-07-31 16:24 | XMS_ITS | Encounter Summary ---
Author Organization [facility] Address [address] [place] [address] Care Team Providers Care Medical Records Tech Name Role Phone Bijal Fox NP Primary Care Provider [phone] Reason for Referral * Diagnostic Imaging (Routine) - Authorized Specialty Diagnoses / Procedures Referred By Contac t Referred To Contact Diagnoses CKD stage 3a, GFR 45-59 ml/min (HCC) Chronic heart failure with preserved ejection fraction (HCC) Procedures US Kidney and Bladder Complete John Hendricks MD [address] [place] [address] Phone: tel: fax: Referral ID Status Reason Start Date Expiration Date V isits Requested Visits Authorized [id number] Authorized 07/01/2024 12/31/2025 1 1 Encounter Details Date Type Department Care Team (Late st Contact Info) Description 07/01/2024 3:15 PM EST Office Visit [facility] Nephrology [address] [place] [address], [address] [place] [address] John Hendricks MD [address] [place] [phone] Hyperkalemia (Primary Dx); CKD stage 3a, GFR 45-59 ml/min (HCC); Chronic heart failure with preserved ejection fraction (HCC); Primary hypertension Social History Tobacco Use Types Packs/Day Years Used Date Smoking Tobacco: Former Smokeless Tobacco: Never Comments:: Alcohol Use Standard Drinks/Week Comments Not Currently 0 (1 standard drink = 0.6 oz pur e alcohol) [facility] Utilities Answer Date Recorded In [...] Hendricks MD - 07/01/2024 3:25 PM EST [facility] Patient Name: Genie Vora Female Date of : 1950, 73 y.o. Date: 07/01/2024 Assessment & Plan 1. Hyperkalemia 2. CKD stage 3a, GFR 45-59 ml/min ([facility]) 3. Chronic heart failure with [...] visit. Allergies Allergen Reactions Prevacid [Lansoprazole] Indigestion Dzjyxhu-Bev-Qzd Reductase Inhibitors Muscle Pain Per pt Objective [...] CONVERSION 09/01/2014 12:22 PM Dysphagia. Edited by: [id number] - 1232 [id number] - 0828 YASMINE CLINICAL HISTORY, CONVERSION 08/02/2013 04:39 PM Left wrist dequervain's and left carpal tunnel syndrome. Left wrist mass. Edited by: [id number] - 1747 APRIL CLINICAL HISTORY, CONVERSION 04/08/2010 03:39 PM Dyspepsia. Suspected gastroesophageal reflux disease. Dictated by: LACY CARBAJAL Edited by: [id number] - [address] [place] [address] CLINICAL HISTORY, CONVERSION 09/21/2006 02:09 PM Cholelithiasis. Edited by: [id number] - 1436 [facility] CLINICAL HISTORY, CONVERSION 04/26/2001 11:41 AM 50 year old female with a preop diagnosis of stress incontinence, urethral hypermobility, a rectocele and prolapsed cervix. The patient underwent abdominal hysterectomy and repair of rectocele. Edited by: [id number] - 1657 CLAUDIO CLINICAL HISTORY, CONVERSION 07/19/1999 12:15 PM Endometrial biopsy Edited by: [id number] - 0810 OWUSUC ALBUMIN 4.0 06/17/2024 07:03 [...] Info) Description 08/01/2024 2:00 PM EDT Follow-Up [facility] Nephrology [address] [place] [address] [address] [place] [address] John Hendricks MD [address] [address] 09/18/2024 11:00 AM EDT Follow-Up [facility] [address] [place] [address] MarvinJeffery PA [address] [place] [address] 01/08/2025 10:00 AM EDT Follow-Up [address] Cardiology [address] [place] [address] [address] [place] [address] Mabel Onofre NP [address] [place] [address] [address] [place] [address] Scheduled Orders Name Type Priority Associated Diagnoses Orde r Schedule US Kidney and Bladder Complete Imaging Routine CKD stage 3a, GFR 45-59 ml/min (HCC) Chronic heart failure with preserved ejection fraction (HCC) Expected: 07/01/2024, Expires: 08/29/2025 documented as of this encounter Procedures * Due to [place] state law, this organization might not be [...] this encounter Results * Due to [place] state law, this organization might not be sharing negative HIV tests. * (ABNORMAL) Microscopic Urinalysis Only (07/02/2024 9:17 AM EST) RBC, Urine 5-10(A) None Seen, 0-2 /HPF 07/02/2024 10:07 AM EST [facility] WBC, Urine 0-2 None Seen, 0-2 /HPF 07/02/2024 10:07 AM EST [facility] Squamous Epithelial Cells, Urine 0-2 /HPF 07/02/2024 10:07 AM EST [facility] Bacteria, Urine Occasional (A) None Seen /HPF 07/02/2024 10:07 AM EST [facility] Urine Urine specimen collection, clean catch / Unknown Non-Blood Collection / Unknown 07/02/2024 9:17 AM EST 07/02/2024 9:36 AM EST us John Hendricks MD LAB URINE ORDERABLES Final Resul t [facility] [address] [place] [address] [address] [place] [address], [place] [phone] * (ABNORMAL) SPEP (Protein Electrophoresis w/Reflex to [...] ORDERABLES Final Resul t HILARY DAVID [address] [facility] 3rd Floor, [place] [address], [place] [phone] * Magnesium (07/02/2024 9:17 AM EST) MG 1.9 1.5 - 2.5 mg/dL 07/02/2024 10:01 AM EST [facility] Blood Structure of peripheral vein / Unknown Venipuncture / Unknown 07/02/2024 9:17 AM EST 07/02/2024 9:29 AM EST us John Hendricks MD LAB BLOOD ORDERABLES Final Resul t Performing Organization Address [facility] de Phone Number [facility] [address] [address], [place] [phone] * Microalbumin, Random Urine with Creatinine (07/02/2024 9:17 AM EST) Creatinine, Urine 55 mg/dL 07/02/2024 2:41 PM EST [facility] Microalbumin, Urine 4 <=20 mg/L 07/02/2024 2:41 PM EST [facility] Microalb/Creat Ratio, Random Urine 7.3 1.3 - 30.0 mg/g 07/02/2024 2:41 PM EST [facility] Urine Voided urine specimen / Unknown Non-Blood Collection / Unknown 07/02/2024 9:17 AM EST 07/02/2024 9:36 AM EST us John Hendricks MD LAB URINE ORDERABLES Final Resul t Performing Organization Address [facility] Co de Phone Number [facility] [address] [place] [address], [place] [phone] * Protein, Random Urine with Creatinine (07/02/2024 9:17 AM EST) Protein, Urine 6 mg/dL 07/02/2024 2:41 PM EST [facility] Creatinine, Urine 55 mg/dL 07/02/2024 2:41 PM EST [facility] Protein/Creati nine Ratio 109 <200 mg/gmCr 07/02/2024 2:41 PM EST [facility] Urine Voided urine specimen / Unknown Non-Blood Collection / Unknown 07/02/2024 9:17 AM EST 07/02/2024 9:36 AM EST John Hendricks MD LAB URINE ORDERABLES Final Resul t [facility] [address] [place] [address] [address] [place] [address], * (ABNORMAL) Urinalysis W/Reflex to Microscopic (No Culture) (07/02/2024 9:17 AM EST) Color, Urine Yellow Yellow 07/02/2024 9:44 AM EST [facility] Clarity, Urine Clear Clear 07/02/2024 9:44 AM EST [facility] Specific [place], Urine 1.015 1.005 - 1.030 07/02/2024 9:44 AM EST [facility] pH, Urine 5.5 5.0 - 8.0 07/02/2024 9:44 AM EST [facility] Protein, Urine Negative Negative mg/dL 07/02/2024 9:44 AM EST [facility] Glucose, Urine Negative Negative mg/dL 07/02/2024 9:44 AM EST [facility] Ketones, Urine Negative Negative mg/dL 07/02/2024 9:44 AM EST [facility] Bilirubin, Urine Negative Negative 07/02/2024 9:44 AM EST [facility] Blood, Urine Small(A) Negative 07/02/2024 9:44 AM EST [facility] Nitrite, Urine Negative Negative 07/02/2024 9:44 AM EST [facility] Urobilinogen, Urine 0.2 0.2 - 1.0 E.U./dL 07/02/2024 9:44 AM EST [facility] Leukocyte Esterase, Urine Small(A) Negative 07/02/2024 9:44 AM EST [facility] Urine Urine specimen collection, clean catch / Unknown Non-Blood Collection / Unknown 07/02/2024 9:17 AM EST 07/02/2024 9:36 AM EST us John Hendricks MD LAB URINE ORDERABLES Final Resul t Performing Organization Address City/[facility]/ZIP Co de Phone Number [facility] [address] [address], [place] [phone] * (ABNORMAL) Vitamin D, 25-Hydroxy, Total, Immunoassay (07/02/2024 9:17 AM EST) Vitamin D 25-OH 22.50(L) 30.00 - 80.00 ng/mL 07/02/2024 11:24 AM EST [facility] Blood Structure of peripheral vein / Unknown Venipuncture / Unknown 07/02/2024 9:17 AM EST 07/02/2024 9:29 AM EST us John Hendricks MD LAB BLOOD ORDERABLES Final Resul t Performing Organization Address City/[facility]/ZIP Co de Phone Number [facility] [address] [address], [place] [phone] * (ABNORMAL) Renal Function Panel (07/02/2024 9:17 AM EST) NA 138 136 - 145 mmol/L 07/02/2024 10:02 AM EST [facility] K 4.4 3.5 - 5.1 mmol/L 07/02/2024 10:02 AM EST [facility] Comment:ALL DELTAS REVIEWED Cl 101 98 - 109 mmol/L 07/02/2024 10:02 AM EST [facility] CO2 26 22 - 32 mmol/L 07/02/2024 10:02 AM EST [facility] Anion Gap 15 >=0 07/02/2024 10:02 AM EST [facility] Glucose 115(H) 60 - 99 mg/dL 07/02/2024 10:02 AM EST [facility] BUN 37(H) 8 - 23 mg/dL 07/02/2024 10:02 AM EST [facility] Creatinine 1.47(H) 0.50 - 1.12 mg/dL 07/02/2024 10:02 AM EST [facility] Calcium 8.8 8.4 - 10.4 mg/dL 07/02/2024 10:02 AM EST [facility] Phosphorus 3.6 2.5 - 4.5 mg/dL 07/02/2024 10:02 AM EST [facility] Albumin 3.8 3.5 - 5.0 g/dL 07/02/2024 10:02 AM EST [facility] eGFR 38(L) >=60 mL/min/1. 73m2 07/02/2024 10:02 AM EST [facility] Comment:The estimated glomer ular [...] LAB BLOOD ORDERABLES Final Resul t [facility] [address] [facility] [address] [place] [address], * (ABNORMAL) PTH, Intact (without Calcium) (07/02/2024 9:17 AM EST) Parathyroid Hormone, Intact 226.0(H) 14.5 - 87.1 pg/mL 07/02/2024 11:19 AM EST [facility] Comment: This test was [...] ORDERABLES Final Resul t Performing Organization Address [facility]/ZIP Co de Phone Number [facility] [address] [address], [place] [phone] * Hemoglobin and Hematocrit (07/02/2024 9:17 AM EST) Hemoglobin 12.0 11.7 - 15.5 g/dL 07/02/2024 9:38 AM EST [facility] Hematocrit 37.1 35.7 - 45.8 % 07/02/2024 9:38 AM EST [facility] Blood Structure of peripheral vein / Unknown Venipuncture / Unknown 07/02/2024 9:17 AM EST 07/02/2024 9:29 AM EST us John Hendricks MD LAB BLOOD ORDERABLES Final Resul t Performing Organization Address City/[facility]/ZIP Co de Phone Number [facility] [address] [address], [place] [phone] documented in this encounter Visit Diagnoses Diagnosis Hyperkalemia- Primary Hyperpotassemia CKD stage 3a, GFR 45-59 ml/min (HCC) Chronic heart failure with preserved ejection fraction (HCC) Primary hypertension Unspecified essential hypertension documented in this encounter Care Teams Medical Records Tech Relationship Specialty Start Date End Date Bijal Fox NP [address] [place] [address] [address] [place] [address] PCP - General Family Medicine 05/30/24 documented as of this encounter
--- OUTSIDE RECORDS SUMMARY | 2024-07-31 16:24 | XMS_ITS | Encounter Summary ---
Author Organization [facility] Address [address] [place] [address] Care Team Providers Care Booking Supervisor Name Role Phone Bijal Fox STRAP MACHINE OPERATOR Primary Care Provider [phone] Reason for Visit * Consultation (Routine) - Pending Review Specialty Diagnoses / Procedures Referred By Contadam t Referred To Contact Family Medicine / Cardiology Diagnoses *TCM d/c 2/5 Procedures TRANSITIONAL CARE MANAGEMENT Bijal Fox NP [address] [address] Phone: tel: fax: Mabel Onofre NP [address] [place] [address] Phone: tel: fax: Referral ID Status Reason Start Date Expiration Date V isits Requested Visits Authorized [id number] Pending Review 07/03/2024 01/02/2026 6 6 Encounter Details Date Type Department Care Team (Late st Contact Info) Description 07/03/2024 2:30 PM EST Office Visit [address] Cardiology [address] [place] [address] Mabel Onofre NP [address] [place] [address] Diastolic heart failure, unspecified HF chronicity (HCC) (Primary Dx); Paroxysmal atrial fibrillation (HCC); Pulmonary hypertension (HCC); BILLIE (obstructive sleep apnea); Benign hypertensive heart disease without congestive heart failure Social History Tobacco Use Types Packs/Day Years Used Date Smoking Tobacco: Former Smokeless Tobacco: Never Comments:: Alcohol Use Standard Drinks/Week Comments Not Currently 0 (1 standard drink = 0.6 oz pur e alcohol) [facility] Utilities Answer Date Recorded In the [...] Follow Up Visit [email or web address] Genie Simmonskarmen 1950 [id number] Impression / Recommendations 1. Diastolic heart failure, [...] card. Her insurance will be changing to [employer]) in July and that will be affordable [...] follow-up. [place]. She presented to the [...] Family History of depression Allergies Prevacid [Lansoprazole] Iyjnsdf-Ral-Wyk Reductase Inhibitors Medications Current Outpatient Medications Medication [...] possible toobtain the completed interpretation. Workstation ID: [id number] Prior Echo Procedures Transthoracic echo (TTE) Exam [...] 2:00 PM EDT Follow-Up [facility] 100 [facility] [address] [place] [address] John Hendricks MD [address] [address] 09/18/2024 11:00 AM EDT Follow-Up [facility] [address] [place] [address] MarvinJeffery PA 119 [place] [address] 01/08/2025 10:00 AM EDT Follow-Up [facility] 100 [facility] Cardiology [address] [place] [address] 205 [place] [address] Mabel Onofre NP 100 [facility] [address] [place] [address] documented as of this encounter Visit Diagnoses Diagnosis Diastolic heart failure, unspecified HF chronicity (HCC)- Primary Paroxysmal atrial fibrillation (HCC) Atrial fibrillation Pulmonary hypertension (HCC) Other chronic pulmonary heart diseases BILLIE (obstructive sleep apnea) Obstructive sleep apnea (adult) (pediatric) Benign hypertensive heart disease without congestive heart failure Benign hypertensive heart disease without heart failure documented in this encounter Care Teams Booking Supervisor Relationship Specialty Start Date End Date Bijal Fox NP [address] [place] [address] PCP - General Family Medicine 05/30/24 documented as of this encounter
--- OUTSIDE RECORDS SUMMARY | 2024-07-31 16:24 | XMS_ITS | Encounter Summary ---
Author Organization [facility] Address [address] [place] [address] Care Team Providers Care Grizzlyman Name Role Phone Bijal Fox OPTIC FIBRE DRAWER Primary Care Provider [phone] Encounter Details Date Type Department Care Team (Late st Contact Info) Description 07/04/2024 Orders Only [facility] Lab [address] [place] [address] Magy Sawyer NP 100 [facility] [address] [place] [phone] Hyperlipidemia, unspecified hyperlipidemia type (Primary Dx); Myxedema heart disease Social History Tobacco Use Types Packs/Day Years Used Date Smoking Tobacco: Former Smokeless Tobacco: Never Comments:: Alcohol Use Standard Drinks/Week Comments Not Currently 0 (1 standard drink = 0.6 oz pur e alcohol) [facility] Utilities Answer Date Recorded In the past 12 months has th e [employer], gas, oil, or water [employer] threatened to shut off services in your [...] PM EDT Follow-Up [facility] Nephrology [address] [place] [address] 201 [place] [address] John Hendricks MD [address] [address] 09/18/2024 11:00 AM EDT Follow-Up [facility] [address] [place] [address] MarvinJeffery PA 119 [place] [address] 01/08/2025 10:00 AM EDT Follow-Up [address] Cardiology [address] [place] [address] Mabel Onofre NP [address] [place] [address] documented as of this encounter Results * Due to [place] state law, this organization might not be sharing negative HIV tests. * T4, Free (07/13/2024 10:20 AM EST) Free T4 1.24 0.80 - 1.80 ng/dL 07/13/2024 11:15 AM EST [facility] Comment: Females: (ng/dL) First Trimester ? [...] ORDERABLES Final Res ult Performing Organization Address [facility] de Phone Number [facility] [address] [place] [address], [place] [phone] * TSH (07/13/2024 10:20 AM EST) TSH 3.750 0.270 - 4.200 uIU/mL 07/13/2024 11:15 AM EST [facility] Comment: Females: 1st trimester ? 0.150-4.000 ??IU/mL 2nd trimester ?? 0.310-4.170 ?IU/mL 3rd trimester ?0.380-4.150 ?IU/mL Blood Structure of peripheral vein / Unknown Venipuncture / Unknown 07/13/2024 10:20 AM EST 07/13/2024 10:29 AM EST us Magy Sawyer NP LAB BLOOD ORDERABLES Final Res ult Performing Organization Address [facility] de Phone Number [facility] [address] [place] [address], [place] [phone] * (ABNORMAL) Comprehensive Metabolic Panel (07/13/2024 10:20 AM EST) NA 142 136 - 145 mmol/L 07/13/2024 11:15 AM [facility] K 4.6 3.5 - 5.1 mmol/L 07/13/2024 11:15 AM [facility] Cl 104 98 - 109 mmol/L 07/13/2024 11:15 AM [facility] CO2 28 22 - 32 mmol/L 07/13/2024 11:15 AM [facility] Anion Gap 15 >=0 07/13/2024 11:15 AM [facility] Glucose 94 60 - 99 mg/dL 07/13/2024 11:15 AM [facility] Creatinine 1.40(H) 0.50 - 1.12 mg/dL 07/13/2024 11:15 AM [facility] Calcium 9.4 8.4 - 10.4 mg/dL 07/13/2024 11:15 AM [facility] Total Protein 6.4(L) 6.6 - 8.7 g/dL 07/13/2024 11:15 AM [facility] Albumin 3.7 3.5 - 5.0 g/dL 07/13/2024 11:15 AM [facility] Bilirubin, Total 0.4 0.2 - 1.2 mg/dL 07/13/2024 11:15 AM [facility] Alkaline Phosphatase 113 40 - 129 U/L 07/13/2024 11:15 AM [facility] AST 25 0 - 33 U/L 07/13/2024 11:15 AM [facility] ALT 33 <=33 U/L 07/13/2024 11:15 AM [facility] BUN 20 8 - 23 mg/dL 07/13/2024 11:15 AM [facility] eGFR 40(L) >=60 mL/min/1. 73m2 07/13/2024 11:15 AM [facility] Comment:The estimated glomer ular filtration [...] - 4.2 g/dL 07/13/2024 11:15 AM EST [facility] A/G Ratio 1.4(L) 1.5 - 3.0 07/13/2024 11:15 AM EST [facility] Blood Structure of peripheral vein / Unknown Venipuncture / Unknown 07/13/2024 10:20 AM EST 07/13/2024 10:29 AM EST us Magy Sawyer NP LAB BLOOD ORDERABLES Final Res ult Performing Organization Address City/State/[facility] Co de Phone Number [facility] [address] [place] [address] [address] [place] [address], [place] [phone] * Lipid panel (07/13/2024 10:20 AM EST) Cholesterol 259 mg/dL 07/13/2024 11:15 AM EST [facility] Comment: DESIRABLE: <200 mg/dL BORDERLINE HIGH: 200-239 mg/dL HIGH: >239 mg/dL Triglycerides 123 mg/dL 07/13/2024 11:15 AM EST [facility] Comment: NORMAL: <150 mg/dL BORDERLINE HIGH: 150-199 mg/dL HIGH: 200-499 mg/dL VERY HIGH >499 mg/dL Cholesterol, HDL 72 mg/dL 07/13/19 11:15 AM EST [facility] Comment: DESIRABLE: >60 mg/dL BORDERLINE: 40-59 mg/dL UNDESIRABLE: <40 mg/dL LDL Cholesterol 162 mg/dL 11:15 AM EST [facility] Comment: OPTIMAL: <100 mg/dL NEAR OPTIMAL: <130 mg/dL BORDERLINE HIGH: 130-159 mg/dL HIGH: 160-189 mg/dL VERY HIGH: >189 mg/dL VLDL 24.6 mg/dL 07/13/2024 11:15 AM EST [facility] Cholesterol/HDL Ratio 3.6 07/13/2024 11:15 AM EST [facility] Blood Structure of peripheral vein / Unknown Venipuncture / Unknown 07/13/2024 10:20 AM EST 07/13/2024 10:29 AM EST us Magy Sawyer NP LAB BLOOD ORDERABLES Final Res ult [facility] [address] [facility] [address] [address], documented in this encounter Visit Diagnoses Diagnosis Hyperlipidemia, unspecified hyperlipidemia type- Primary Myxedema heart disease Unspecified hypothyroidism documented in this encounter Care Teams Grizzlyman Relationship Specialty Start Date End Date Bijal Fox NP 100 [facility] [address] [place] [address] PCP - General Family Medicine 05/30/24 documented as of this encounter
--- OUTSIDE RECORDS SUMMARY | 2024-07-31 16:24 | XMS_ITS | Encounter Summary ---
Author Organization [facility] Address [address] [place] [address] Care Team Providers Care Internal Communications Writer Name Role Phone Brandyn Pagan MD Primary Care Provider Unavaila Radha Fink NP Unavailable Unavailable Unknown Pcp, Non Rmg Primary Care Provider Unava ilable Encounter Details Date Type Department Care Team (Late st Contact Info) Description 01/08/2016 Orders Only [facility] [address] [place] [phone] Brandyn Pagan MD Social History Tobacco Use [...] on filedocumented in this encounter Care Teams Internal Communications Writer Relationship Specialty Start Date End Date Brandyn Pagan MD PCP - General Internal Medicine 08/07/15 02/02/17 Radha Spangler NP PCP - Backup PCP Internal Medicine 01/11/16 02/02/17 Unknown Pcp, Non Rmg PCP - General 02/03/17 documented as of this encounter
--- OUTSIDE RECORDS SUMMARY | 2024-07-31 16:24 | XMS_ITS | Encounter Summary ---
Author Organization [facility] Address [address] [place] [address] Care Team Providers Care Command Center Officer Name Role Phone Bijal Fox NP Primary Care Provider [phone] Encounter Details Date Type Department Care Team (Late st Contact Info) Description 07/01/2024 9:05 AM EST Lab [facility] Site Department 100 [place] [address] Diastolic heart failure, unspecified HF chronicity (HCC) Social History Tobacco Use Types Packs/Day Years Used Date Smoking Tobacco: Former Smokeless Tobacco: Never Comments:: Alcohol Use Standard Drinks/Week Comments Not Currently 0 (1 standard drink = 0.6 oz pur e alcohol) [facility] Utilities Answer Date Recorded In [...] Info) Description 08/01/2024 2:00 PM EDT Follow-Up [facility] Nephrology 100 [facility] 201 [place] [address] Jonh Hendricks MD [address] [address] 09/18/2024 11:00 AM EDT Follow-Up [facility] 119 [place] [address] Marvin, AYAD Gil 119 [place] [address] 01/08/2025 10:00 AM EDT Follow-Up [address] Cardiology [address] [place] [address] 205 [place] [address] Mabel Onofre NP 100 [facility] 205 [place] [address] documented as of this encounter Procedures * [...] 288 <=900 pg/mL 07/01/2024 9:39 AM EST [facility] [...] EST 07/01/2024 9:05 AM EST Mabel Onofre STRIP CUTTING MACHINE OPERATOR LAB BLOOD ORDERABLES Final Result Performing Organization Address City/State/[facility] Co de Phone Number [facility] [address] [facility] [address] [place] [address], * (ABNORMAL) Basic metabolic panel (07/01/2024 8:39 AM EST) NA 140 136 - 145 mmol/L 07/01/2024 9:36 AM EST [facility] K 5.3(H) 3.5 - 5.1 mmol/L 07/01/2024 9:36 AM EST [facility] Cl 102 98 - 109 mmol/L 07/01/2024 9:36 AM EST [facility] CO2 29 22 - 32 mmol/L 07/01/2024 9:36 AM EST [facility] BUN 34(H) 8 - 23 mg/dL 07/01/2024 9:36 AM EST [facility] Creatinine 1.27(H) 0.50 - 1.12 mg/dL 07/01/2024 9:36 AM EST [facility] Glucose 113(H) 60 - 99 mg/dL 07/01/2024 9:36 AM EST [facility] Calcium 8.9 8.4 - 10.4 mg/dL 07/01/2024 9:36 AM EST [facility] Anion Gap 14 >=0 07/01/2024 9:36 AM EST [facility] eGFR 45(L) >=60 mL/min/1. 73m2 07/01/2024 9:36 AM EST [facility] [...] Onofre NP LAB BLOOD ORDERABLES Final Result [facility] [address] [place] [address], documented in this encounter Visit Diagnoses Diagnosis Diastolic heart failure, unspecified HF chronicity (HCC) documented in this encounter Care Teams Command Center Officer Relationship Specialty Start Date End Date Bijal Fox NP 100 [address] [place] [address] PCP - General Family Medicine 05/30/24 documented as of this encounter
--- OUTSIDE RECORDS SUMMARY | 2024-07-31 16:24 | XMS_ITS | Encounter Summary ---
Author Organization [facility] Address [address] [place] [address] Care Team Providers Care Home Visitor Home Base Head Start Name Role Phone Brandyn Pagan MD Primary Care Provider Radha Cuevas NP Unavailable Unavailable Unknown Pcp, Non Rmg Primary Care Provider Unava ilable Reason for Visit * Reason Onset Date Comments Labs/orders 12/28/2015 Creatinine Order for Radiology with Contrast Encounter Details Date Type Department Care Team ([facility] st Contact Info) Description 12/28/2015 Telephone 300 [facility] Magnetic Resonance Imaging [address] [place] [address] Radha Spangler NP Labs/orders (Creatinine [...] Cervicalgia documented in this encounter Care Teams Home Visitor Home Base Head Start Relationship Specialty Start Date End Date Brandyn Pagan MD PCP - General Internal Medicine 08/07/15 02/02/17 Radha Spangler NP PCP - Backup PCP Internal Medicine 01/11/16 02/02/17 Unknown Pcp, Non Rmg PCP - General 02/03/17 documented as of this encounter
--- OUTSIDE RECORDS SUMMARY | 2024-07-31 16:24 | XMS_ITS | Encounter Summary ---
Author Organization [facility] Address [address] [place] [address] Care Team Providers Care Guide Domestic Tour Name Role Phone Brandyn Pagan MD Primary Care Provider Unavaila Radha Fink NP Unavailable Unavailable Unknown Pcp, Non Rmg Primary Care Provider Unava ilable Encounter Details Date Type Department Care Team (Late st Contact Info) Description 12/05/2016 Orders Only [facility] [address] [place] [address] Brandyn Pagan MD Social History Tobacco Use [...] Cervicalgia documented in this encounter Care Teams Guide Domestic Tour Relationship Specialty Start Date End Date Brandyn Pagan MD PCP - General Internal Medicine 08/07/15 02/02/17 Radha Spangler NP PCP - Backup PCP Internal Medicine 01/11/16 02/02/17 Unknown Pcp, Non [facility] PCP - General 02/03/17 documented as of this encounter
--- OUTSIDE RECORDS SUMMARY | 2024-07-31 16:24 | XMS_ITS | Encounter Summary ---
Author Organization [facility] Address [address] [place] [address] Care Team Providers Care Software Quality Tester Name Role Phone Bijal Fox NP Primary Care Provider [phone] Encounter Details Date Type Department Care Team (Late st Contact Info) Description 07/03/2024 Telephone [facility] Case Management Department 100 [place] [address] Mariajose Calvillo RN Social History Tobacco Use Types Packs/Day Years Used Date Smoking Tobacco: Former Smokeless Tobacco: Never Comments:: Alcohol Use Standard Drinks/Week Comments Not Currently 0 (1 standard drink = 0.6 oz pur e alcohol) [facility] Utilities Answer Date Recorded In the [...] CHF Patient Call: This Chronic 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 She tells this editorial writer she is doing well. She was at the pharmacy picking up her prescription for her nebulizer medication, she has been working with PT/OT through [facility]. She does still get a little shortness of breath with exertion, but no issues at rest or when laying down. She will be changing insurances on 07/20/24 to [employer]. Did you review the COPD educational material given to you in the hospital? Yes Are you monitoring your triggers? Yes Are you having any shortness of breath, wheezing, coughing? Shortness of breath with exertion only Are you having any difficulty breathing when lying down? No Are you doing the pursed lip/diaphragm breathing? Reviewed again Did you contact your PCP or [employer] regarding your breathing issues? NA You have a follow up appointment with your PCP on: Was seen 07/02/24 You have a follow up appointment with your [employer] on: The PCP is supposed to make [...] the home sanitized, avoiding sick contacts, using garnetter when out in the community) Are you [...] more than 64 ounces per day) This editorial writer sent a secure chat to the [facility] team and asked them to reach out to the patient to offer their services now that she had her TCM appointment with Cardiology. IF YOU ARE HAVING SYMPTOMS, DON'T WAIT UNTIL THEY ARE UNMANAGEABLE BEFORE YOU CALL THE DOCTOR. documented in this encounter Plan of Treatment Upcoming Encounters Date Type Department Care Team ([facility] st Contact Info) Description 08/01/2024 2:00 PM EDT Follow-Up [facility] Nephrology [address] [place] [address] 201 [place] [address] John Hendricks MD [address] [address] 09/18/2024 11:00 AM EDT Follow-Up [facility] 119 [place] [address] MarvinJeffery PA 119 [place] [address] 01/08/2025 10:00 AM EDT Follow-Up [address] Cardiology [address] [place] [address] 205 [place] [address] Mabel Onofre NP [address] [place] [address] 205 [place] [address] documented as of this encounter Visit Diagnoses Not on filedocumented in this encounter Care Teams Software Quality Tester Relationship Specialty Start Date End Date Bijal Fox NP [address] [place] [address] [address] [place] [address] PCP - General Family Medicine 05/30/24 documented as of this encounter
--- OUTSIDE RECORDS SUMMARY | 2024-07-31 16:24 | XMS_ITS | Encounter Summary ---
Author Organization [facility] Address [address] [place] [address] Care Team Providers Care It Intern Name Role Phone Bijal Fox NP Primary Care Provider [phone] Encounter Details Date Type Department Care Team (Late st Contact Info) Description 07/02/2024 10:05 AM EST Lab [facility] Site Department [address] [place] [address] Social History Tobacco Use Types Packs/Day Years [...] Upcoming Encounters Date Type Department Care Team ([facility] st Contact Info) Description 08/01/2024 2:00 PM EDT Follow-Up [facility] Nephrology 100 [facility] 201 [place] [address] John Hendricks MD 123 [facility] [address] [place] [address] 09/18/2024 11:00 AM EDT Follow-Up [facility] 119 [place] [address] MarvinJeffery PA 119 [place] [address] 01/08/2025 10:00 AM EDT Follow-Up [facility] 100 [facility] Cardiology [address] [place] [address] 205 [place] [address] Mabel Onofre NP [address] [place] [address] 205 [place] [address] documented as of this encounter Visit Diagnoses Not on filedocumented in this encounter Care Teams It Intern Relationship Specialty Start Date End Date Bijal Fox NP [address] [place] [address] [address] [place] [address] PCP - General Family Medicine 05/30/24 documented as of this encounter
--- OUTSIDE RECORDS SUMMARY | 2024-07-31 16:24 | XMS_ITS | Clinical Summary ---
Author Organization [facility] Address [address] [place] [address] Care Team Providers Care Radar Engineer Name Role Phone Bijal Fox NP Primary Care Provider [phone] Allergies Active Allergy Reactions Criticality Noted Date Comments Lansoprazole Indigestion Medium Quolxdm-Yax-Xgn Reductase Inhibitors Muscle Pain Medium Per pt [...] on admission by SpO2 88% requiring 3-4L BOILER OUT. Tachypnea with RR increased to 22 RPM. She is not home-O2 dependent. -Wean supplemental O2 as tolerated, presently om room air -Taper steroids -Continue supportive therapy with nebulized bronchodilators, ICS and multiple antitussives. -Avoid increasing Tramadol in setting of COPD/asthma. Assessment & Plan (06/23/2024 4:18 PM EST): Acute Resp Failure: Evidenced on admission by SpO2 88% requiring 3-4L BOILER OUT. Tachypnea with RR increased to 22 RPM. She is not home-O2 dependent. Presently weaned to 2L BOILER OUT, but still coarse with rhonchus cough. Reduced IV steroids as no wheezing on exam and she appears tearful and depressed. Continue supportive therapy with nebulized bronchodilators, ICS and multiple antitussives. Avoid increasing Tramadol in setting of COPD/asthma. Assessment & Plan (06/22/2024 5:42 PM EST): Acute Resp Failure: Evidenced on admission by SpO2 88% requiring 3-4L BOILER OUT. Tachypnea with RR increased to 22 RPM. She is not home-O2 dependent. Presently weaned to 2L BOILER OUT, but still coarse with rhonchus cough. Reduced [...] auth. Fall precautions Ambulate with assistance A-fib ([facility]) 06/03/2024 Assessment & Plan (06/25/2024 12:39 PM [...] Description 07/31/2024 12:09 PM EDT Hospital Encounter [facility] [address] [place] [address] Sonny Reed MD Pain 07/31/2024 10:15 AM EDT Hospital Encounter [facility] [address] [place] [address] Sonny Reed MD Chronic left shoulder pain (Primary Dx); Left shoulder pain, unspecified chronicity 07/22/2024 11:15 AM EST Office Visit [facility] [address] [place] [address] Marvin, AYAD Gil Primary osteoarthritis of left shoulder (Primary Dx); Rotator cuff tear arthropathy of left shoulder 07/22/2024 11:08 AM EST - 07/22/2024 11:59 PM EST Hospital Encounter [facility] [address] [place] [address] Acute pain of left shoulder Discharge Disposition: Home or Self Care () 07/20/2024 Orders Only [facility] [address] [place] [address] Magy Sawyer, MEY Swelling of limb (Primary Dx) 07/19/2024 12:10 PM EST Lab [facility] [address] [place] [address] Swelling of lower extremity (Primary Dx); Urinary tract infection without hematuria, site unspecified 07/16/2024 10:45 AM EST - 07/16/2024 11:59 PM EST Hospital Encounter [facility] Xray Department [address] [place] [address] Heart failure, unspecified HF chronicity, unspecified heart failure type (HCC) Discharge Disposition: Home or Self Care () 07/16/2024 Lab Requisition [facility] Lab [address] [place] [address] Bijal Fox, BOILER OUT Urinary tract infection, site not specified 07/16/2024 Orders Only [facility] [address] [place] [address] Bijal Fox, MEY Urinary tract infection without hematuria, site unspecified (Primary Dx) 07/13/2024 10:30 AM EST Lab [facility] [address] [place] [address] Heart failure, unspecified HF chronicity, unspecified heart failure type (HCC) (Primary Dx); Hyperlipidemia, unspecified hyperlipidemia type; 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 Orders Only [facility] [address] [place] [address] Magy Sawyer NP Hyperlipidemia, unspecified hyperlipidemia type (Primary Dx); 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/03/2024 2:30 PM EST Office Visit [address] Cardiology [address] [place] [address] Mabel Onofre NP Diastolic heart failure, unspecified HF chronicity (HCC) (Primary Dx); Paroxysmal atrial fibrillation (HCC); Pulmonary hypertension (HCC); BILLIE (obstructive sleep apnea); Benign hypertensive heart disease without congestive heart failure 07/03/2024 Telephone [facility] Case Management Department [address] [place] [address] Marijaose Calvillo RN 07/02/2024 10:05 AM EST Lab [facility] Department [address] [place] [address] 07/01/2024 3:15 PM EST Office Visit [facility] [address] [place] [address], [address] [place] [address] John Hendricks MD Hyperkalemia (Primary Dx); CKD stage 3a, GFR 45-59 ml/min (HCC); Chronic heart failure with preserved ejection fraction (HCC); Primary hypertension 07/01/2024 9:05 AM EST Lab [facility] [address] [place] [phone] Diastolic heart failure, unspecified HF chronicity (HCC) 07/01/2024 Orders Only [address] [place] [address] Mabel Onofre NP 06/24/[address] [place] [address] Elise Boykin MA TCM 06/23/2024 Lab Requisition [facility] [address] [place] [address] Mj Mendenhall MD Pneumonia due to other specified infectious organisms 06/15/2024 7:35 PM EST - 06/26/2024 6:09 PM EST Hospital Encounter [facility] [address] [address] Kevin Newsome MD Devineni, Praveen, MD Pneumonia of left lung due to infectious organism, unspecified part of lung (Primary Dx); Acute hypoxic respiratory failure (HCC) Discharge Disposition: Home with Services (06) 06/02/2024 12:57 PM EST - 06/04/2024 3:30 PM EST Emergency [facility] [address] [address] Govind Glez MD Cebula, Maria, MD Colucci, Joseph M, MD Silva, Joshua T, MD Nesanelis, MD Sonny Generalized weakness (Primary Dx) Discharge Disposition: Long Term Facility (03) from Last 3 Months Immunizations [...] = 0.6 oz pur e alcohol) [facility] Utilities Answer Date Recorded In the [...] Upcoming Encounters Date Type Department Care Team ([facility] st Contact Info) Description 08/01/2024 2:00 PM EDT Follow-Up [facility]phrology 100 [facility] [address] [place] [address] John Hendricks MD [address] [address] 09/18/2024 11:00 AM EDT Follow-Up [facility] [address] [place] [address] Marvin, AYAD Gil [address] [place] [address] 01/08/2025 10:00 AM EDT Follow-Up [address] Cardiology 100 [facility] [address] [place] [address] Mabel Onofre NP 100 [facility] [address] [place] [address] Health Maintenance Due Date Last Done Comments [...] complete this topic Procedures * Due to [place] state law, this organization might not be sharing negative HIV tests. Procedure Name Priority Date/Time Associated Diagnosis Comments FL C-ARM WITH IMAGES NONREPORTABLE Routine 07/31/2024 10:49 AM EDT Pain CHG FLUOROSCOPIC GUIDANCE NEEDLE PLACEMENT ADD ON Routine 07/31/2024 10:15 AM EDT Left shoulder pain, unspecified chronicity DC ARTHROCENTESIS ASPIR&/INJ MAJOR JT/BURSA W/O US Routine [...] to Health Maintenance Results * Due to [place] state law, this organization might not be sharing negative HIV tests. * FL C-Arm with Images NONREPORTABLE (07/31/2024 10:49 AM EDT) Narrative IMAGING - 07/31/2024 12:28 PM EDT This procedure does not contain a result. Please see the surgeon's note for official report. us Sonny Reed MD IMG FLUOROSCOPY PROCEDURES Fin al Result IMAGING * DC ARTHROCENTESIS ASPIR&/INJ MAJOR JT/BURSA W/O US, CHG [...] Patient's understanding of procedure matches consent: Yes Hammond Protocol: ? Procedure consent matches procedure scheduled: [...] obtain the completed interpretation. ? Workstation ID: [id number] Narrative 07/22/2024 1:20 PM EST COMPARISON: ??There are no prior studies available for comparison at this time. ?? FINDINGS AND Resulting Agency Comment [id number] Procedure Note Rupali Barrios MD - 07/22/2024 [...] possible to obtain thecompleted interpretation. Workstation ID: [id number] Jeffery LION IMG XR PROCEDURES Final Result * N-terminal ProBrain Natriuretic Peptide - [facility] & MEM/LONI/Nicole Only (07/19/2024 10:59 AM EST) Only the most recent of7 resultswithin the time period is included. Pro-B-Type Natriuretic Peptide 281 <=900 pg/mL 07/19/2024 11:43 AM EST [facility] Comment: RULE IN CHF >/= [...] EST 07/19/2024 11:17 AM EST Magy Sawyer BOILER OUT LAB BLOOD ORDERABLES Final Res ult Performing Organization Address [facility] Co de Phone Number [facility] [address] [place] [address], [place] [phone] * Urine Culture, Routine (07/19/2024 10:59 AM EST) Only the most recent of2 resultswithin the time period is included. [facility] Urine Culture <10,000 CFU/mL mixed gram positives; multiple organisms are present, suggestive of contamination at the time of collection. [place] MANUAL 07/20/2024 8:13 AM EST [facility] Urine Urine specimen collection, clean catch / Unknown Non-Blood Collection / Unknown 07/19/2024 10:59 AM EST 07/19/2024 11:16 AM EST Bijal Fox BOILER OUT LAB MICROBIOLOGY - GENERAL ORDE RABKRANTHI Final Result Performing Organization Address City/[facility]/ZIP Co de Phone Number [facility] [address] [address], [place] [phone] * (ABNORMAL) Basic Metabolic Panel (07/19/2024 10:59 AM EST) Only the most recent of12 resultswithin the time period is included. Pathologist [facility] NA 142 136 - 145 mmol/L 07/19/2024 11:41 AM EST [facility] K 4.0 3.5 - 5.1 mmol/L 07/19/2024 11:41 AM EST [facility] Cl 103 98 - 109 mmol/L 07/19/2024 11:41 AM EST [facility] CO2 29 22 - 32 mmol/L 07/19/2024 11:41 AM EST [facility] BUN 22 8 - 23 mg/dL 07/19/2024 11:41 AM EST [facility] Creatinine 1.42(H) 0.50 - 1.12 mg/dL 07/19/2024 11:41 AM EST [facility] Glucose 108(H) 60 - 99 mg/dL 07/19/2024 11:41 AM EST [facility] Calcium 8.9 8.4 - 10.4 mg/dL 07/19/2024 11:41 AM EST [facility] Anion Gap 14 >=0 07/19/2024 11:41 AM EST [facility] eGFR 39(L) >=60 mL/min/1. 73m2 07/19/2024 11:41 AM EST [facility] Comment:The estimated glomer ular filtration [...] AM EST 07/19/2024 11:17 AM EST us Mayg Sawyer NP LAB BLOOD ORDERABLES Final Res ult [facility] [address] [place] [address] [phone] * X-Ray Chest 2 Views (07/16/2024 11:04 [...] obtain the completed interpretation. ? Workstation ID: [id number] Narrative 07/17/2024 8:14 AM EST COMPARISON: ??06/22/2024 FINDINGS AND Resulting Agency Comment [id number] Procedure Note Calvin Katz MD - 07/17/2024 COMPARISON: 06/22/2024 FINDINGS AND IMPRESSION: No change. Heart normal. Lungs and pleural spaces clear. Cervical spinefusion hardware noted. If this radiology report contains a blank impression section, it is anincomplete radiology report. Please contact the interpreting radiologistor applicable radiology division as soon as possible to obtain thecompleted interpretation. Workstation ID: [id number] us Magy Sawyer NP IMG XR PROCEDURES Final Result * TSH (07/13/2024 10:20 AM EST) Only the most recent of3 resultswithin the time period is included. TSH 3.750 0.270 - 4.200 uIU/mL 07/13/2024 11:15 AM EST [facility] Comment: Females: 1st trimester ? 0.150-4.000 ??IU/mL 2nd trimester ?? 0.310-4.170 ?IU/mL 3rd trimester ?0.380-4.150 ?IU/mL Blood Structure of peripheral vein / Unknown Venipuncture / Unknown 07/13/2024 10:20 AM EST 07/13/2024 10:29 AM EST us Magy Sawyer BOILER OUT LAB BLOOD ORDERABLES Final Res ult Performing Organization Address [facility] Co de Phone Number [facility] [address] [address], [place] [phone] * T4, Free (07/13/2024 10:20 AM EST) Free T4 1.24 0.80 - 1.80 ng/dL 07/13/2024 11:15 AM EST [facility] Comment: Females: (ng/dL) First Trimester [...] ORDERABLES Final Res ult Performing Organization Address [facility] Co de Phone Number [facility] [address] [address], [place] [phone] * Lipid panel (07/13/2024 10:20 AM EST) Cholesterol 259 mg/dL 07/13/2024 11:15 AM EST [facility] Comment: DESIRABLE: <200 mg/dL BORDERLINE HIGH: 200-239 mg/dL HIGH: >239 mg/dL Triglycerides 123 mg/dL 07/13/2024 11:15 AM EST [facility] Comment: NORMAL: <150 mg/dL BORDERLINE HIGH: 150-199 mg/dL HIGH: 200-499 mg/dL VERY HIGH >499 mg/dL Cholesterol, HDL 72 mg/dL 07/13/19 11:15 AM EST [facility] Comment: DESIRABLE: >60 mg/dL BORDERLINE: 40-59 mg/dL UNDESIRABLE: <40 mg/dL LDL Cholesterol 162 mg/dL 11:15 AM EST [facility] Comment: OPTIMAL: <100 mg/dL NEAR OPTIMAL: <130 mg/dL BORDERLINE HIGH: 130-159 mg/dL HIGH: 160-189 mg/dL VERY HIGH: >189 mg/dL VLDL 24.6 mg/dL 07/13/2024 11:15 AM EST [facility] Cholesterol/HDL Ratio 3.6 07/13/2024 11:15 AM EST [facility] Blood Structure of peripheral vein / Unknown Venipuncture / Unknown 07/13/2024 10:20 AM EST 07/13/2024 10:29 AM EST us Magy Sawyer BOILER OUT LAB BLOOD ORDERABLES Final Res ult [facility] [address] [facility] 2ND [place] [address], * (ABNORMAL) Comprehensive Metabolic Panel (07/13/2024 10:20 AM EST) Only the most recent of3 resultswithin the time period is included. NA 142 136 - 145 mmol/L 07/13/2024 11:15 AM EST [facility] K 4.6 3.5 - 5.1 mmol/L 07/13/2024 11:15 AM EST [facility] Cl 104 98 - 109 mmol/L 07/13/2024 11:15 AM EST [facility] CO2 28 22 - 32 mmol/L 07/13/2024 11:15 AM EST [facility] Anion Gap 15 >=0 07/13/2024 11:15 AM EST [facility] Glucose 94 60 - 99 mg/dL 07/13/2024 11:15 AM [facility] Creatinine 1.40(H) 0.50 - 1.12 mg/dL 07/13/2024 11:15 AM [facility] Calcium 9.4 8.4 - 10.4 mg/dL 07/13/2024 11:15 AM [facility] Total Protein 6.4(L) 6.6 - 8.7 g/dL 07/13/2024 11:15 AM [facility] Albumin 3.7 3.5 - 5.0 g/dL 07/13/2024 11:15 AM [facility] Bilirubin, Total 0.4 0.2 - 1.2 mg/dL 07/13/2024 11:15 AM [facility] Alkaline Phosphatase 113 40 - 129 U/L 07/13/2024 11:15 AM [facility] AST 25 0 - 33 U/L 07/13/2024 11:15 AM [facility] ALT 33 <=33 U/L 07/13/2024 11:15 AM [facility] BUN 20 8 - 23 mg/dL 07/13/2024 11:15 AM [facility] eGFR 40(L) >=60 mL/min/1. 73m2 07/13/2024 11:15 AM [facility] Comment:The estimated glomer ular filtration rate [...] 2.1 - 4.2 g/dL 07/13/2024 11:15 AM [facility] A/G Ratio 1.4(L) 1.5 - 3.0 07/13/2024 11:15 AM EST [facility] Blood Structure of peripheral vein / Unknown Venipuncture / Unknown 07/13/2024 10:20 AM EST 07/13/2024 10:29 AM EST Magy Sawyer BOILER OUT LAB BLOOD ORDERABLES Final Res ult Performing Organization Address [facility] Co de Phone Number [facility] [address] [address], * (ABNORMAL) Microscopic Urinalysis Only (07/02/2024 9:17 AM EST) RBC, Urine 5-10(A) None Seen, 0-2 /HPF 07/02/2024 10:07 AM EST [facility] WBC, Urine 0-2 None Seen, 0-2 /HPF 07/02/2024 10:07 AM EST [facility] Squamous Epithelial Cells, Urine 0-2 /HPF 07/02/2024 10:07 AM EST [facility] Bacteria, Urine Occasional (A) None Seen /HPF 07/02/2024 10:07 AM EST [facility] Urine Urine specimen collection, clean catch / Unknown Non-Blood Collection / Unknown 07/02/2024 9:17 AM EST 07/02/2024 9:36 AM EST John Hendricks MD LAB URINE ORDERABLES Final Resul t Performing Organization Address [facility] Co de Phone Number [facility] [address] [address], [place] [phone] * (ABNORMAL) Urinalysis W/Reflex to Microscopic (No Culture) (07/02/2024 9:17 AM EST) Color, Urine Yellow Yellow 07/02/2024 9:44 AM EST [facility] Clarity, Urine Clear Clear 07/02/2024 9:44 AM EST [facility] Specific Bison, Urine 1.015 1.005 - 1.030 07/02/2024 9:44 AM EST [facility] pH, Urine 5.5 5.0 - 8.0 07/02/2024 9:44 AM EST [facility] Protein, Urine Negative Negative mg/dL 07/02/2024 9:44 AM EST [facility] Glucose, Urine Negative Negative mg/dL 07/02/2024 9:44 AM EST [facility] Ketones, Urine Negative Negative mg/dL 07/02/2024 9:44 AM EST [facility] Bilirubin, Urine Negative Negative 07/02/2024 9:44 AM EST [facility] Blood, Urine Small(A) Negative 07/02/2024 9:44 AM EST [facility] Nitrite, Urine Negative Negative 07/02/2024 9:44 AM EST [facility] Urobilinogen, Urine 0.2 0.2 - 1.0 E.U./dL 07/02/2024 9:44 AM EST [facility] Leukocyte Esterase, Urine Small(A) Negative 07/02/2024 9:44 AM EST [facility] Urine Urine specimen collection, clean catch / Unknown Non-Blood Collection / Unknown 07/02/2024 9:17 AM EST 07/02/2024 9:36 AM EST us John Hendricks MD LAB URINE ORDERABLES Final Resul t Performing Organization Address City/State/[facility] Co de Phone Number [facility] [address] [place] [address], * (ABNORMAL) SPEP (Protein Electrophoresis w/Reflex to Immunofixation) (07/02/2024 9:17 AM EST) Protein, Total 5.8(L) 6.1 - 8.1 g/dL 07/04/2024 8:59 AM EST [facility] Albumin 3.6(L) 3.8 - 4.8 g/dL [...] Final Resul t HILARY DAVID [address] [facility] 3rd Floor, [place] [address], * Hemoglobin and Hematocrit (07/02/2024 9:17 AM EST) Hemoglobin 12.0 11.7 - 15.5 g/dL 07/02/2024 9:38 AM EST [facility] Hematocrit 37.1 35.7 - 45.8 % 07/02/2024 9:38 AM EST [facility] Blood Structure of peripheral vein / Unknown Venipuncture / Unknown 07/02/2024 9:17 AM EST 07/02/2024 9:29 AM EST us John Hendricks MD LAB BLOOD ORDERABLES Final Resul t Performing Organization Address City/[facility]/ZIP Co de Phone Number [facility] [address] [address], [place] [phone] * Microalbumin, Random Urine with Creatinine (07/02/2024 9:17 AM EST) Creatinine, Urine 55 mg/dL 07/02/2024 2:41 PM EST [facility] Microalbumin, Urine 4 <=20 mg/L 07/02/2024 2:41 PM EST [facility] Microalb/Creat Ratio, Random Urine 7.3 1.3 - 30.0 mg/g 07/02/2024 2:41 PM EST [facility] Urine Voided urine specimen / Unknown Non-Blood Collection / Unknown 07/02/2024 9:17 AM EST 07/02/2024 9:36 AM EST us John Hendricks MD LAB URINE ORDERABLES Final Resul t Performing Organization Address [facility] Co de Phone Number [facility] [address] [address], [place] [phone] * Protein, Random Urine with Creatinine (07/02/2024 9:17 AM EST) Protein, Urine 6 mg/dL 07/02/2024 2:41 PM EST [facility] Creatinine, Urine 55 mg/dL 07/02/2024 2:41 PM EST [facility] Protein/Creati nine Ratio 109 <200 mg/gmCr 07/02/2024 2:41 PM EST [facility] Urine Voided urine specimen / Unknown Non-Blood Collection / Unknown 07/02/2024 9:17 AM EST 07/02/2024 9:36 AM EST us John Hendricks MD LAB URINE ORDERABLES Final Resul t [facility] [address] [address], * (ABNORMAL) Vitamin D, 25-Hydroxy, Total, Immunoassay (07/02/2024 9:17 AM EST) Only the most recent of2 resultswithin the time period is included. Vitamin D 25-OH 22.50(L) 30.00 - 80.00 ng/mL 07/02/2024 11:24 AM EST [facility] Blood Structure of peripheral vein / Unknown Venipuncture / Unknown 07/02/2024 9:17 AM EST 07/02/2024 9:29 AM EST us John Hendricks MD LAB BLOOD ORDERABLES Final Resul t Performing Organization Address [facility] Co de Phone Number [facility] [address] [place] [address], * (ABNORMAL) PTH, Intact (without Calcium) (07/02/2024 9:17 AM EST) [facility] Parathyroid Hormone, Intact 226.0(H) 14.5 - 87.1 pg/mL 07/02/2024 11:19 AM EST [facility] Comment: This test was performed [...] MD LAB BLOOD ORDERABLES Final Resul t [facility] [address] [address], * Magnesium (07/02/2024 9:17 AM EST) MG 1.9 1.5 - 2.5 mg/dL 07/02/2024 10:01 AM EST [facility] Blood Structure of peripheral vein / Unknown Venipuncture / Unknown 07/02/2024 9:17 AM EST 07/02/2024 9:29 AM EST John Hendricks MD LAB BLOOD ORDERABLES Final Resul t [facility] [address] [place] [address], * (ABNORMAL) Renal Function Panel (07/02/2024 9:17 AM EST) Pathologist [facility] NA 138 136 - 145 mmol/L 07/02/2024 10:02 AM EST [facility] K 4.4 3.5 - 5.1 mmol/L 07/02/2024 10:02 AM [facility] Comment:ALL DELTAS REVIEWED Cl 101 98 - 109 mmol/L 07/02/2024 10:02 AM EST [facility] CO2 26 22 - 32 mmol/L 07/02/2024 10:02 AM EST [facility] Anion Gap 15 >=0 07/02/2024 10:02 AM EST [facility] Glucose 115(H) 60 - 99 mg/dL 07/02/2024 10:02 AM EST [facility] BUN 37(H) 8 - 23 mg/dL 07/02/2024 10:02 AM [facility] Creatinine 1.47(H) 0.50 - 1.12 mg/dL 07/02/2024 10:02 AM EST [facility] Calcium 8.8 8.4 - 10.4 mg/dL 07/02/2024 10:02 AM EST [facility] Phosphorus 3.6 2.5 - 4.5 mg/dL 07/02/2024 10:02 AM [facility] Albumin 3.8 3.5 - 5.0 g/dL 07/02/2024 10:02 AM EST [facility] eGFR 38(L) >=60 mL/min/1. 73m2 07/02/2024 10:02 AM EST [facility] Comment:The estimated glomer ular filtration [...] MD LAB BLOOD ORDERABLES Final Resul t [facility] [address] [place] [address] [address] [place] [address], * X-Ray Abdomen 1 View (06/26/2024 12:39 [...] obtain the completed interpretation. ? Workstation ID: [id number] Narrative 06/26/2024 2:05 PM EST EXAMINATION: ??XR ABDOMEN 1 VW INDICATION: RLQ abdominal pain, constipation COMPARISONS: None Resulting Agency Comment [id number] Procedure Note Calvin Katz MD - 06/26/2024 [...] possible to obtain thecompleted interpretation. Workstation ID: [id number] us Tia Oh BOILER OUT IMG XR PROCEDURES Final Result * (ABNORMAL) CBC (06/26/2024 6:22 AM EST) Only the most recent of5 resultswithin the time period is included. WBC 15.0(H) 4.8 - 10.8 10*3/uL 06/26/2024 6:42 AM [facility] RBC 4.51 4.20 - 5.40 10*6/uL 06/26/2024 6:42 AM EST [facility] Hemoglobin 13.1 11.7 - 15.5 g/dL 06/26/2024 6:42 AM [facility] Hematocrit 40.5 35.7 - 45.8 % 06/26/2024 6:42 AM EST [facility] MCV 89.8 81.0 - 99.0 fL 06/26/2024 6:42 AM EST [facility] MCH 29.0 26.0 - 34.0 pg 06/26/2024 6:42 AM [facility] MCHC 32.3 31.0 - 36.0 g/dL 06/26/2024 6:42 AM [facility] RDW 13.2 12.0 - 15.0 % 06/26/2024 6:42 AM [facility] Platelets 220 140 - 440 10*3/uL 06/26/2024 6:42 AM [facility] MPV 9.4 9.4 - 12.3 fL 06/26/2024 6:42 AM EST [facility] RDW Standard Deviation 43.5 36.4 - 46.3 fL 06/26/2024 6:42 AM EST [facility] Blood Structure of peripheral vein / Unknown Venipuncture / Unknown 06/26/2024 6:22 AM EST 06/26/2024 6:39 AM EST Olivia Arteaga NP LAB BLOOD ORDERABLES Final Result [facility] [address] [place] [address] [address] [place] [address], * ECG 12 lead (06/24/2024 9:50 AM EST) Only the most recent of4 resultswithin the time period is included. Ventricular Rate EKG 73 BPM MUSE EKG Atrial Rate 73 BPM MUSE EKG DC Interval 228 ms MUSE EKG QRS Interval 128 ms MUSE EKG QT Interval 384 ms MUSE EKG QTC Interval 423 ms MUSE EKG P Foley 65 degrees MUSE EKG R Foley 41 degrees MUSE EKG T Wave Foley 61 degrees MUSE EKG 06/24/2024 9:50 AM EST 06/24/2024 5:36 PM EST Impressions MUSE EKG - 06/24/2024 5:36 PM EST Sinus rhythm with 1st degree AV block with occasional premature ventricular complexes Nonspecific intraventricular block When compared with ECG of 21-JUN-2024 07:26, No significant change was found Confirmed by Stephanie Hampton ([id number]) on 06/24/2024 5:36:28 PM Olivia Arteaga BOILER OUT ECG ORDERABLES Final Resul t MUSE EKG * (ABNORMAL) Potassium (06/23/2024 10:05 AM EST) K 5.6(H) 3.5 - 5.1 mmol/L 06/23/2024 10:58 AM EST [facility] Comment:REVIEWED Blood Structure of peripheral vein / Unknown Venipuncture / Unknown 06/23/2024 10:05 AM EST 06/23/2024 10:36 AM EST Narrative [facility] - 06/23/2024 10:58 AM EST Please check heparinized potassium, TY. us Sydney David NP LAB BLOOD ORDERABLES Final Result Performing Organization Address City/[facility]/ZIP Co de Phone Number [facility] [address] [address], [place] [phone] * Lavender Top (06/22/2024 6:53 AM EST) Only the most recent of2 resultswithin the time period is included. Extra Tube Hold for add-ons. 06/22/2024 11:05 AM EST [facility] Comment:Auto resulted. Blood Structure of peripheral vein / Unknown 06/22/2024 6:53 AM EST 06/22/2024 6:53 AM EST Mj Mendenhall MD LAB BLOOD ORDERABLES Final R esult Performing Organization Address City/[facility]/ZIP Co de Phone Number [facility] [address] [address], [place] [phone] * Troponin T, High Sensitivity (06/20/2024 10:19 AM EST) Only the most recent of3 resultswithin the time period is included. Troponin T High Sensitivity 14 6 - 14 ng/L 06/20/2024 11:08 AM EST [facility] Comment: Sc-Mztxiozz-I level of 52 ng/L or higher at [...] be evaluated in line with the 4th Hammond Definition of AMI. Troponin baseline and serial [...] Organization Address City/[facility]/ZIP Co de Phone Number [facility] [address] [address], [place] [phone] * (ABNORMAL) Respiratory Culture (06/20/2024 7:37 AM EST) Respiratory Culture Moderate Rayna albicans(A) [facility] 06/22/2024 11:29 AM EST [facility] Gram Stain Result <25 per LPF White Blood Cells Seen 06/22/2024 11:29 AM EST [facility] Gram Stain Result <10 per LPF Epithelial Cells 06/22/2024 11:29 AM EST [facility] Gram Stain Result Rare Gram Positive Cocci in pairs 06/22/2024 11:29 AM EST [facility] Sputum Sputum / Unknown Non-Blood Collection / Unknown 06/20/2024 7:37 AM EST 06/20/2024 7:54 AM EST Narrative [facility] - 06/22/2024 11:29 AM EST Many normal respiratory beena present. Rosanna Marie BOILER OUT LAB MICROBIOLOGY - GENERAL ORDER RHINA Final Result Performing Organization Address [facility]/ZIP Co de Phone Number [facility] [address] [address], [place] [phone] * Streptococcus Pneumoniae Antigen Urine (06/18/2024 6:44 PM EST) Streptococcus pneumoniae Antigen, Urine Negative Negative [facility] MANUAL 06/19/2024 8:53 AM EST [facility] Comment: INTERPRETATION: Presumptive negative for [...] MD LAB URINE ORDERABLES Final R esult [facility] [address] [facility] [address] [place] [address], [place] [phone] * Legionella Antigen, Urine (06/18/2024 6:44 PM EST) Legionella pneumophila Urine Ag Negative Negative [facility] MANUAL 06/19/2024 8:53 AM EST [facility] Comment: INTERPRETATION: Presumptive negative for [...] 6:44 PM EST 06/18/2024 7:15 PM EST [facility] - 06/19/2024 8:53 AM EST [...] MD LAB URINE ORDERABLES Final R esult [facility] [address] [place] [address], [place] [phone] * XR Chest Portable 1 View (06/18/2024 [...] obtain the completed interpretation. ? Workstation ID: [id number] Narrative 06/20/2024 10:17 AM EST EXAMINATION: XR CHEST PORTABLE 1 VIEW COMPARISON: CT chest pulmonary angiogram 06/15/2024 and other priors. FINDINGS: Lines/Tubes/Devices: None. Lungs: Redemonstrated left basilar consolidation. Pleura: No pleural effusions or pneumothorax. Heart/Mediastinum: Cardiomediastinal silhouette is similar to prior. Bones/Soft tissues: No acute osseous abnormality. Resulting Agency Comment [id number] Procedure Note Apolonia Nolen MD - 06/20/2024 [...] possible to obtain thecompleted interpretation. Workstation ID: [id number] us Tia Oh BOILER OUT IMG XR PROCEDURES Final Result * (ABNORMAL) CBC Auto Differential (06/17/2024 7:03 AM EST) Only the most recent of3 resultswithin the time period is included. WBC 11.6(H) 4.8 - 10.8 10*3/uL 06/17/2024 7:30 AM EST [facility] RBC 3.94(L) 4.20 - 5.40 10*6/uL 06/17/2024 7:30 AM EST [facility] Hemoglobin 11.7 11.7 - 15.5 g/dL 06/17/2024 7:30 AM [facility] Hematocrit 35.4(L) 35.7 - 45.8 % 06/17/2024 7:30 AM [facility] MCV 89.8 81.0 - 99.0 fL 06/17/2024 7:30 AM EST [facility] MCH 29.7 26.0 - 34.0 pg 06/17/2024 7:30 AM [facility] MCHC 33.1 31.0 - 36.0 g/dL 06/17/2024 7:30 AM [facility] RDW 12.9 12.0 - 15.0 % 06/17/2024 7:30 AM [facility] RDW Standard Deviation 42.6 36.4 - 46.3 fL 06/17/2024 7:30 AM [facility] Platelets 257 140 - 440 10*3/uL 06/17/2024 7:30 AM [facility] Comment:REV IEWED MPV 10.0 9.4 - 12.3 fL 06/17/2024 7:30 AM [facility] Neutrophil % 81.6(H) 50.0 - 75.0 % 06/17/2024 7:30 AM [facility] Immature Grans % 0.8 0.0 - 0.9 % 06/17/2024 7:30 AM [facility] Lymphocyte % 11.8(L) 20.0 - 44.0 % 06/17/2024 7:30 AM EST [facility] Monocyte % 5.6 0.0 - 14.0 % 06/17/2024 7:30 AM EST [facility] Eosinophil % 0.0 0.0 - 5.0 % 06/17/2024 7:30 AM EST [facility] Basophil % 0.2 0.0 - 2.0 % 06/17/2024 7:30 AM EST [facility] Neutrophil # 9.48(H) 1.80 - 7.70 10*3/uL 06/17/2024 7:30 AM EST [facility] Immature Grans # 0.09(H) 0.00 - 0.03 10*3/uL 06/17/2024 7:30 AM EST [facility] Lymphocyte # 1.40 1.00 - 4.75 10*3/uL 06/17/2024 7:30 AM EST [facility] Monocyte # 0.70(H) 0.00 - 0.60 10*3/uL 06/17/2024 7:30 AM EST [facility] Eosinophil # <0.03 0.00 - 0.80 10*3/uL 06/17/2024 7:30 AM EST [facility] Basophil # <0.03 0.00 - 0.20 10*3/uL 06/17/2024 7:30 AM EST [facility] nRBC % 0.0 0 - 0 /100 WBCs 06/17/2024 7:30 AM EST [facility] nRBC # <0.01 0.00 - 0.13 10*3/uL 06/17/2024 7:30 AM EST [facility] Blood Structure of peripheral vein / Unknown Venipuncture / Unknown 06/17/2024 7:03 AM EST 06/17/2024 7:22 AM EST us Mj Mendenhall MD LAB BLOOD ORDERABLES Final R esult Performing Organization Address City/State/[facility] Co de Phone Number [facility] [address] [address], * Light Green Top (06/16/2024 7:54 AM EST) Pathologist [facility] Extra Tube Hold for add-ons. 06/16/2024 12:05 PM EST [facility] Comment:Auto resulted. Blood Structure of peripheral vein / Unknown 06/16/2024 7:54 AM EST 06/16/2024 7:54 AM EST us Mj Mendenhall MD LAB BLOOD ORDERABLES Final R esult [facility] [address] [address], * Mycoplasma pneumoniae Antibodies, IgG/IgM (06/16/2024 7:42 AM EST) [facility] M. pneumoniae Ab, IgG <=0.90 <=0.90 06/19/2024 10:04 PM EST [facility] ([place]) Comment: ? Reference Range: ? <=0.90 [...] <770 U/mL 06/19/2024 10:04 PM EST [facility] ([place]) Comment: Reference Range: ?<770 U/ml ?Negative [...] EST 06/16/2024 7:53 AM EST Narrative [facility] - 06/19/2024 10:04 PM EST [facility] Received Date: us Mj Mendenhall MD LAB BLOOD ORDERABLES Final R esult [facility] [address] [place] [address] 3rd Floor, [place] [address], [facility] [facility]) [address] [place] [address], [place] * CT Chest PE (06/15/2024 11:49 [...] obtain the completed interpretation. ? Workstation ID: [id number] Up-to-date CT equipment and radiation dose reduction [...] possible to obtain thecompleted interpretation. Workstation ID: [id number] Up-to-date CT equipment and radiation dose reduction techniques wereemployed. CTDIvol: .8 - 21.4 mGy. DLP: 802 mGy-cm. us Kevin Newsome MD IMG CT PROCEDURES Final Result * Blood Culture (06/15/2024 10:17 PM EST) Only the most recent of2 resultswithin the time period is included. Pathologist [facility] Blood Culture No growth after 5 days 06/20/2024 11:05 PM EST [facility] Blood Structure of peripheral vein / Unknown Venipuncture / Unknown 06/15/2024 10:17 PM EST 06/15/2024 10:39 PM EST us Kevin Newsome MD LAB MICROBIOLOGY - GENERAL ORDER RHINA Final Result Performing Organization Address [facility] Co de Phone Number [address] [address], [place] [phone] * Lactic Acid, Plasma (06/15/2024 10:17 PM EST) [facility] Lactic Acid 0.7 0.5 - 2.2 mmol/L 06/15/2024 11:02 PM EST [facility] Blood Structure of peripheral vein / Unknown Venipuncture / Unknown 06/15/2024 10:17 PM EST 06/15/2024 10:31 PM EST us Kevin Newsome MD LAB BLOOD ORDERABLES Final Resul t Performing Organization Address [facility] Co de Phone Number [address] [address], [place] [phone] * (ABNORMAL) Blood gas, venous (06/15/2024 10:17 PM EST) pH, Venous 7.24(LL) 7.35 - 7.45 06/16/2024 2:54 AM EST [facility] pCO2, Venous 57.0 mm[Hg] 06/16/2024 2:54 AM EST [facility] pO2, Keegan 138.0 mm[Hg] 06/16/2024 2:54 AM EST [facility] HCO3, Venous 22 mmol/L 06/16/2024 2:54 AM EST [facility] O2 Sat, Venous 97.8 % 06/16/2024 2:54 AM EST [facility] Base Excess, Keegan -3.6 mmol/L 06/16/2024 2:54 AM EST [facility] Blood Structure of peripheral vein / Unknown Venipuncture / Unknown 06/15/2024 10:17 PM EST 06/16/2024 2:52 AM EST us Kevin Newsome MD LAB BLOOD ORDERABLES Final Resul t [facility] [address] [place] [address], * COVID-19, Flu A/B & RSV RNA PCR, Symptomatic (06/15/2024 7:58 PM EST) PCR, SARS CoV-2 RNA Not Detected Not Detected [facility] 06/15/2024 8:48 PM EST [facility] Flu A RNA PCR Not Detected Not Detected [facility] 06/15/2024 8:48 PM EST [facility] Flu B RNA PCR Not Detected Not Detected [facility] 06/15/2024 8:48 PM EST [facility] RSV RNA PCR Not Detected Not Detected [facility] 06/15/2024 8:48 PM EST [facility] Comment: Limitations: This RSV test is [...] PM EST 06/15/2024 8:09 PM EST Narrative [facility] - 06/15/2024 8:48 PM EST Methodology: The [employer] GeneXpert CoV-2/Flu/RSV plus assay is For Use Under an Emergency Use Authorization (EUA) Only with [employer]. The CoV-2/Flu/RSV plus assay is a [...] FLUIDS AND STOOLS O RDERABLES Final Result [facility] [address] [place] [address] [address] [place] [address], * HEART & VASCULAR - SCANNED (06/15/2024) [...] % EF 2D 70 % [facility] RV TISSUE DOPPLER S' 11.0 cm/s [...] 0.49 mg/L FEU 06/03/2024 4:45 PM EST [facility] Comment:A D-DIMER VALUE OF < 0.50 ug/FEU/mL HAS A STRONG NEGATIVE PREDICTIVE VALUE FOR EXCLUSION OF PULMONARY EMBOLIC AND DEEP VEIN THROMBOSIS. CLINICAL CORRELATION IS INDICATED. Blood Structure of peripheral vein / Unknown Venipuncture / Unknown 06/03/2024 4:10 PM EST 06/03/2024 4:15 PM EST Calvin Fontenot MD LAB BLOOD ORDERABLES Final R esult [facility] [address] [place] [address], * [place] Lower Extremity Venous Left (06/03/2024 [...] obtain the completed interpretation. ? Workstation ID: [id number] Narrative 06/03/2024 3:48 PM EST EXAMINATION: US [...] identified behind the knee Resulting Agency Comment [id number] Procedure Note Sonny Valdivia MD - 06/03/2024 [...] possible to obtain thecompleted interpretation. Workstation ID: [id number] Calvin Fontenot MD IMG US PROCEDURES Final Resu lt * Rapid COVID-19, FLU A, FLU B & RSV RNA PCR, Symptomatic (ED ONLY) (06/03/2024 3:02 PM EST) Pathologist [facility] PCR, SARS CoV-2 RNA Not Detected Not Detected [facility] 06/03/2024 3:48 PM EST [facility] Flu A RNA PCR Not Detected Not Detected [facility] [employer] 06/03/2024 3:48 PM EST [facility] Flu B RNA PCR Not Detected Not Detected [facility] [employer] 06/03/2024 3:48 PM EST [facility] RSV RNA PCR Not Detected Not Detected [facility] [employer] 06/03/2024 3:48 PM EST [facility] Comment: Limitations: This RSV test is [...] 3:02 PM EST 06/03/2024 3:06 PM EST [facility] - 06/03/2024 3:48 PM EST Methodology: The [employer] GeneXpert CoV-2/Flu/RSV plus assay is For Use Under an Emergency Use Authorization (EUA) Only with [employer]. The CoV-2/Flu/RSV plus assay is a [...] FLUIDS AND STOOLS O RDERABLES Final Result [facility] [address] [facility] [address] [place] [address], [place] [phone] * CT Lumbar Spine WO Contrast (06/02/2024 [...] obtain the completed interpretation. ? Workstation ID: [id number] Up-to-date CT equipment and radiation dose reduction techniques were employed. CTDIvol: 22.2 - 54.3 mGy. DLP: 3111 mGy-cm. ??The following accession numbers are related to this dose report [id number]: [id number] Narrative 06/02/2024 7:00 PM EST COMPARISON: None available. FINDINGS: There is no evidence of acute compression fracture. ??Alignment is maintained. ?? 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 ??Severe degenerative changes are seen most severe at L3-4. ??Paraspinous soft tissues are unremarkable. 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 Workstation ID: [id number] Up-to-date CT equipment and radiation dose reduction techniques wereemployed. CTDIvol: 22.2 - 54.3 mGy. DLP: 3111 mGy-cm. The followingaccession numbers are related to this dose report [id number]: [id number] Govind Glez MD IM CT PROCEDURES Final [...] obtain the completed interpretation. ? Workstation ID: [id number] Up-to-date CT equipment and radiation dose reduction techniques were employed. CTDIvol: 22.2 - 54.3 mGy. DLP: 3111 mGy-cm. ??The following accession numbers are related to this dose report [id number]: [id number] Up-to-date CT equipment and radiation dose reduction techniques were employed. CTDIvol: 22.2 - 54.3 mGy. DLP: 3111 mGy-cm. ??The following accession numbers are related to this dose report [id number]: [id number] Narrative 06/02/2024 6:31 PM EST COMPARISON: 04/28/2016. [...] are within normal limits. Resulting Agency Comment [id number] Procedure Note Luis Mayfield MD - 06/02/2024 [...] possible to obtain thecompleted interpretation. Workstation ID: [id number] Up-to-date CT equipment and radiation dose reduction techniques wereemployed. CTDIvol: 22.2 - 54.3 mGy. DLP: 3111 mGy-cm. The followingaccession numbers are related to this dose report [id number]: [id number] Up-to-date CT equipment and radiation dose reduction techniques wereemployed. CTDIvol: 22.2 - 54.3 mGy. DLP: 3111 mGy-cm. The followingaccession numbers are related to this dose report [id number]: [id number] Govind Glez MD IM CT PROCEDURES Final [...] obtain the completed interpretation. ? Workstation ID: [id number] Up-to-date CT equipment and radiation dose reduction techniques were employed. CTDIvol: 22.2 - 54.3 mGy. DLP: 3111 mGy-cm. ??The following accession numbers are related to this dose report [id number]: [id number] Up-to-date CT equipment and radiation dose reduction techniques were employed. CTDIvol: 22.2 - 54.3 mGy. DLP: 3111 mGy-cm. ??The following accession numbers are related to this dose report [id number]: [id number] Narrative 06/02/2024 6:31 PM EST COMPARISON: 04/28/2016. [...] are within normal limits. Resulting Agency Comment [id number] Procedure Note Luis Mayfield MD - 06/02/2024 [...] possible to obtain thecompleted interpretation. Workstation ID: [id number] Up-to-date CT equipment and radiation dose reduction techniques wereemployed. CTDIvol: 22.2 - 54.3 mGy. DLP: 3111 mGy-cm. The followingaccession numbers are related to this dose report [id number]: [id number] Up-to-date CT equipment and radiation dose reduction techniques wereemployed. CTDIvol: 22.2 - 54.3 mGy. DLP: 3111 mGy-cm. The followingaccession numbers are related to this dose report [id number]: [id number] Govind Glez MD IMG CT PROCEDURES Final [...] were monitored continuously. The CFQ-[id number] Olympusserial # [id number] was introduced through the anus and advanced [...] Recently Relevant to Health Maintenance Insurance [facility] [place] [id number] Advance Directives Documents on File Type Date Recorded Patient Manager Project Management Expl anation Advance Directive 08/06/2013 12:00 AM [...] 1:19 AM 06/04/2024 5:36 PM Care Teams Radar Engineer Relationship Specialty Start Date End Date Bijal Fox, BOILER OUT [address] [place] [id number] PCP - General Family Medicine 05/30/24
--- OUTSIDE RECORDS SUMMARY | 2024-07-31 16:24 | XMS_ITS | Encounter Summary ---
Author Organization [facility] Address [address] [place] [address] Care Team Providers Care Plastics Heat Welder Name Role Phone Brandyn Pagan MD Primary Care Provider Radha Cuevas NP Unavailable Unavailable Unknown Pcp, Non Rmg Primary Care Provider Unava ilable Encounter Details Date Type Department Care Team (Late st Contact Info) Description 01/12/2017 Orders Only [facility] [address] [place] [address] Brandyn Pagan MD Social History Tobacco Use [...] this encounter Procedures * Due to [place] [employer] law, this organization might not be sharing negative HIV tests. Procedure Name Priority Date/Time Associated Diagnosis Comments URINALYSIS, DIP ONLY STAT (All results called to provider) 01/12/2017 12:59 PM EDT Frequency of urination CULTURE, URINE, ROUTINE Routine 01/12/2017 12:22 PM EDT Frequency of urination URINALYSIS, MICROSCOPIC Routine 01/12/2017 12:22 PM EDT Frequency of urination documented in this encounter Results * Due to [place] [employer] law, this organization might not be sharing negative HIV tests. * URINALYSIS, DIP ONLY ( SITE STAT ONLY) (01/12/2017 12:59 PM EDT) COLOR (URINE) YELLOW [facility] (CLIA# [id number]) APPEARANCE (URINE) CLEAR Clear [facility] (CLIA# [id number]) SPECIFIC GRAVITY 1.005 1.001 - 1.035 [facility] (CLIA# [id number]) PH (URINE) 7.0 5.0 - 8.0 [facility] (CLIA# [id number]) PROTEIN (URINE) NEG Neg [facility] (CLIA# [id number]) GLUCOSE (URINE) NEG Neg [facility] (CLIA# [id number]) Ketones (Urine) NEG Neg [facility] (CLIA# [id number]) BILIRUBIN (URINE) NEG Neg [facility] (CLIA# [id number]) BLOOD (URINE) NEG Neg [facility] (CLIA# [id number]) Leukocyte esterase (Urine) NEG Neg [facility] (CLIA# [id number]) NITRITE (URINE) NEG Neg [facility] (CLIA# [id number]) Urine specimen obtained by clean catch procedure (specimen) 01/12/2017 12:59 PM EDT Narrative [facility] (CLIA# [id number]) - 01/12/2017 1:00 PM EDT Micro and culture already ordered per provider. Brandyn Pagan MD LAB SAME DAY RESULT Final Resul t Performing Organization Address [facility] de Phone Number [facility] (CLIA# [id number]) [address] [place] [address] * CULTURE, URINE, ROUTINE (01/12/2017 12:22 PM EDT) Bacteria culture (Urine) SEE NOTE [facility] Comment: ??CULTURE, URINE, ROUTINE ??MICRO NUMBER: ?[id number] ??TEST STATUS: ? FINAL ??SPECIMEN SOURCE: ?? URINE ??SPECIMEN QUALITY: ??ADEQUATE ??RESULT: ?No Growth 01/12/2017 12:2 2 PM EDT 01/12/2017 10:29 PM EDT Narrative Resulting Agency Comment [id number] us Brandyn Pagan MD LABORATORY Final Result Performing Organization Address City/[facility]/ZIP Co de Phone Number [facility] [address] [place] [address] * URINALYSIS, MICROSCOPIC (01/12/2017 12:22 PM EDT) [...] 10:29 PM EDT Narrative Resulting Agency Comment [id number] us Brandyn Pagan MD LAB SAME DAY RESULT Final Resul t Performing Organization Address City/State/[facility] Co de Phone Number [facility] [address] [place] [address] documented in this encounter Visit Diagnoses Diagnosis Frequency of urination Urinary frequency documented in this encounter Care Teams Plastics Heat Welder Relationship Specialty Start Date End Date Brandyn Pagan MD PCP - General Internal Medicine 08/07/15 02/02/17 Radha Spangler NP PCP - Backup PCP Internal Medicine 01/11/16 02/02/17 Unknown Pcp, Non Rmg PCP - General 02/03/17 documented as of this encounter
--- OUTSIDE RECORDS SUMMARY | 2024-07-31 16:24 | XMS_ITS | Encounter Summary ---
Author Organization [facility] Address [address] [place] [address] Care Team Providers Care Armature Varnisher Name Role Phone Brandyn Pagan MD Primary Care Provider Unavaila Radha Fink NP Unavailable Unavailable Unknown Pcp, Non Rmg Primary Care Provider Unava ilable Encounter Details Date Type Department Care Team (Late st Contact Info) Description 01/28/2016 Orders Only [facility] [address] [place] [address] Radha Spangler, MEY Social History Tobacco Use [...] this encounter Procedures * Due to [place] [employer] law, this organization might not be sharing negative HIV tests. Procedure Name Priority Date/Time Associated Diagnosis Comments BASIC METABOLIC PANEL WITH (GFR) Routine 01/28/2016 11:41 AM EDT Elevated serum creatinine documented in this encounter Results * Due to [place] [employer] law, this organization might not be sharing negative HIV tests. * (ABNORMAL) BASIC METABOLIC PANEL WITH (GFR) (01/28/2016 11:41 AM EDT) Glucose 95 65 - 99 mg/dL [facility] Comment: {GLUCOSE {[id number]) ? Fasting reference interval Urea Nitrogen Blood (BUN) 28(H) 7 - 25 mg/dL [facility] Comment:{UREA NITROGEN (BUN) {[id number]) Creatinine 1.12(H) 0.50 - 0.99 mg/dL [facility] Comment: {CREATININE {[id number]) For patients >49 years of age, the reference limit for Creatinine is approximately 13% higher for people identified as -E[place]ian. GFR 52(L) > OR = 60 mL/min/1. 73m2 [facility] Comment:{eGFR NON-AFR. AMERI CAN {[id number]) GFR () 60 > OR = 60 mL/min/1. 73m2 [facility] Comment:{eGFR AMERIC AN {[id number]) BUN/Creatinine Ratio 25(H) 6 - 22 (calc) [facility] Comment:{BUN/CREATININE RATI O {[id number]) Sodium 140 135 - 146 mmol/L [facility] Comment:{SODIUM {[id number]) Potassium 4.8 3.5 - 5.3 mmol/L [facility] Comment:{POTASSIUM {[id number]) Chloride 106 98 - 110 mmol/L [facility] Comment:{CHLORIDE {[id number]) Carbon dioxide 30 20 - 31 mmol/L [facility] Comment:{CARBON DIOXIDE {[id number]) Calcium 9.5 8.6 - 10.4 mg/dL [facility] Comment:{CALCIUM {[id number]) 01/28/2016 11:4 1 AM EDT 01/28/2016 [...] needs for GFR calculation. Resulting Agency Comment [id number] Radha Spangler NP LABORATORY Final Result Performing Organization Address City/State/[facility] Co de Phone Number [facility] [address] [place] [address] documented in this encounter Visit Diagnoses Diagnosis Elevated serum creatinine Other nonspecific findings on examination of blood documented in this encounter Care Teams Armature Varnisher Relationship Specialty Start Date End Date Brandyn Pagan MD PCP - General Internal Medicine 08/07/15 02/02/17 Radha Spangler NP PCP - Backup PCP Internal Medicine 01/11/16 02/02/17 Unknown Pcp, Non Rmg PCP - General 02/03/17 documented as of this encounter
--- OUTSIDE RECORDS SUMMARY | 2024-07-31 16:24 | XMS_ITS | Encounter Summary ---
Author Organization [facility] Address [address] [place] [address] Care Team Providers Care Manager Document Control Name Role Phone Bijal Fox HEALTH EDUCATION AIDE Primary Care Provider [phone] Reason for Visit * Reason Onset Date Comments TCM 06/24/2024 Encounter Details Date Type Department Care Team ([facility] st Contact Info) Description 06/24/[address] Cardiology 100 [facility] [address] [place] [address] Elise Boykin MA TCM Social History Tobacco Use Types Packs/Day Years Used Date Smoking Tobacco: Former Smokeless Tobacco: Never Comments:: Alcohol Use Standard Drinks/Week Comments Not Currently 0 (1 standard drink = 0.6 oz pur e alcohol) [facility] Utilities Answer Date Recorded In [...] Miscellaneous Notes * Telephone Encounter - Stephanie Belter CMA - 07/01/2024 11:52 AM EST Pt [...] DISCHARGE INFORMATION Genie was discharged from a [facility] on 06/26/24 Last Hospital Admission Date [...] Needs Eliquis script and unable to pickle water pump operator Lokelma due to cost-message forwarded to [...] Description 08/01/2024 2:00 PM EDT Follow-Up [facility] Nephrology 100 [facility] [address] [place] [address] John Hendricks MD [address] [address] 09/18/2024 11:00 AM EDT Follow-Up [facility] [address] [place] [address] MarvinJeffery PA [address] [place] [address] 01/08/2025 10:00 AM EDT Follow-Up [facility] 100 [facility] Cardiology 100 [facility] [address] [place] [address] Mabel Onofre NP 100 [facility] [address] [place] [address] documented as of this encounter Results * Due to [place] state law, this organization might not be sharing negative HIV tests. * N-terminal ProBrain Natriuretic Peptide (07/01/2024 8:39 AM EST) Pro-B-Type Natriuretic Peptide 288 <=900 pg/mL 07/01/2024 9:39 AM EST [facility] Comment: RULE IN CHF >/= [...] EST 07/01/2024 9:05 AM EST Mabel Onofre HEALTH EDUCATION AIDE LAB BLOOD ORDERABLES Final Result [facility] [address] [place] [address] [address] [place] [address], * (ABNORMAL) Basic metabolic panel (07/01/2024 8:39 AM EST) NA 140 136 - 145 mmol/L 07/01/2024 9:36 AM EST [facility] K 5.3(H) 3.5 - 5.1 mmol/L 07/01/2024 9:36 AM EST [facility] Cl 102 98 - 109 mmol/L 07/01/2024 9:36 AM EST [facility] CO2 29 22 - 32 mmol/L 07/01/2024 9:36 AM EST [facility] BUN 34(H) 8 - 23 mg/dL 07/01/2024 9:36 AM EST [facility] Creatinine 1.27(H) 0.50 - 1.12 mg/dL 07/01/2024 9:36 AM EST [facility] Glucose 113(H) 60 - 99 mg/dL 07/01/2024 9:36 AM EST [facility] Calcium 8.9 8.4 - 10.4 mg/dL 07/01/2024 9:36 AM EST [facility] Anion Gap 14 >=0 07/01/2024 9:36 AM EST [facility] eGFR 45(L) >=60 mL/min/1. 73m2 07/01/2024 9:36 AM EST [facility] Comment:The estimated glomer ular filtration [...] Onofre NP LAB BLOOD ORDERABLES Final Result [facility] [address] [facility] [address] [place] [address], documented in this encounter Visit Diagnoses Diagnosis Diastolic heart failure, unspecified HF chronicity (HCC)- Primary Atrial fibrillation, unspecified type (HCC) documented in this encounter Care Teams Manager Document Control Relationship Specialty Start Date End Date Bijal Fox NP 100 [facility] [address] [place] [address] PCP - General Family Medicine 05/30/24 documented as of this encounter
--- OUTSIDE RECORDS SUMMARY | 2024-07-31 16:24 | XMS_ITS | Encounter Summary ---
Author Organization [facility] Address [address] [place] [address] Care Team Providers Care Hand Stemmer Name Role Phone Bijal Fox HOUSING RELOCATION Primary Care Provider [phone] Encounter Details Date Type Department Care Team (Late st Contact Info) Description 07/01/2024 Orders Only [facility] 100 [facility] Cardiology [address] [place] [address] [address] [place] [address] Mabel Onofre NP 100 [facility] [address] [place] [address] Social History Tobacco Use Types Packs/Day Years Used Date Smoking Tobacco: Former Smokeless Tobacco: Never Comments:: Alcohol Use Standard Drinks/Week Comments Not Currently 0 (1 standard drink = 0.6 oz pur e alcohol) [facility] Utilities Answer Date Recorded In [...] Info) Description 08/01/2024 2:00 PM EDT Follow-Up [facility] Nephrology [address] [place] [address] [address] [place] [address] John Hendricks MD [address] [address] 09/18/2024 11:00 AM EDT Follow-Up [facility] [address] [place] [address] MarvinJeffery PA [address] [place] [address] 01/08/2025 10:00 AM EDT Follow-Up [address] Cardiology [address] [place] [address] [address] [place] [address] Mabel Onofre NP [address] [place] [address] [address] [place] [address] documented as of this encounter Visit Diagnoses Not on filedocumented in this encounter Care Teams Hand Stemmer Relationship Specialty Start Date End Date Bijal Fox NP [address] [place] [address] [address] [place] [address] PCP - General Family Medicine 05/30/24 documented as of this encounter
--- OUTSIDE RECORDS SUMMARY | 2024-07-31 16:25 | XMS_ITS | Encounter Summary ---
Author Organization [facility] Address [address] [place] [address] Care Team Providers Care Polygraph Operator Name Role Phone Brandyn Pagan MD Primary Care Provider Radha Cuevas NP Unavailable Unavailable Unknown Pcp, Non Rmg Primary Care Provider Unava ilable Encounter Details Date Type Department Care Team (Late st Contact Info) Description 06/21/2016 Orders Only [facility] [address] [place] [address] Brandyn Pagan MD Social History Tobacco Use [...] encounter Procedures * Due to [place] [employer] law, this organization might not be sharing negative HIV tests. Procedure Name Priority Date/Time Associated Diagnosis Comments URINALYSIS, DIP ONLY STAT (All results called to provider) 06/21/2016 11:17 AM EST Frequent urination CULTURE, URINE, ROUTINE Routine 06/21/2016 10:35 AM EST Frequent urination URINALYSIS, MICROSCOPIC Routine 06/21/2016 10:35 AM EST Frequent urination documented in this encounter Results * Due to [place] [employer] law, this organization might not be sharing negative HIV tests. * URINALYSIS, DIP ONLY ( SITE STAT ONLY) (06/21/2016 11:17 AM EST) COLOR (URINE) YELLOW [facility] (CLIA# [id number]) APPEARANCE (URINE) CLEAR Clear [facility] (CLIA# [id number]) SPECIFIC GRAVITY 1.020 1.001 - 1.035 [facility] (CLIA# [id number]) PH (URINE) 6.0 5.0 - 8.0 [facility] (CLIA# [id number]) PROTEIN (URINE) NEGATIVE Neg [facility] (CLIA# [id number]) GLUCOSE (URINE) NEGATIVE Neg [facility] (CLIA# [id number]) Ketones (Urine) NEGATIVE Neg [facility] (CLIA# [id number]) BILIRUBIN (URINE) NEGATIVE Neg [facility] (CLIA# [id number]) BLOOD (URINE) NEGATIVE Neg [facility] (CLIA# [id number]) Leukocyte esterase (Urine) NEGATIVE Neg [facility] (CLIA# [id number]) NITRITE (URINE) NEGATIVE Neg [facility] (CLIA# [id number]) Urine specimen (specimen) 06/21/2016 11:17 AM EST Narrative [facility] (CLIA# [id number]) - 06/21/2016 11:17 AM EST Micro and culture already ordered by provider. us Brandyn Pagan MD LAB SAME DAY RESULT Final Resul t [facility] (CLIA# [id number]) [address] [place] [address] * CULTURE, URINE, ROUTINE (06/21/2016 10:35 AM EST) Bacteria culture (Urine) SEE NOTE [facility] Comment: ??CULTURE, URINE, ROUTINE ??MICRO NUMBER: ?[id number] ??TEST STATUS: ? FINAL ??SPECIMEN SOURCE: ?? URINE ??SPECIMEN QUALITY: ??ADEQUATE ??RESULT: ?Multiple organisms present, each less than 10,000 ? CFU/mL. These organisms, commonly found on ? external and internal genitalia, are considered ? to be colonizers. No further testing performed. 06/21/2016 10:3 5 AM EST 06/21/2016 4:50 PM EST Narrative Resulting Agency Comment [id number] Brandyn Pagan MD LABORATORY Final Result Performing Organization Address [facility] de Phone Number [facility] [address] [place] [address] * URINALYSIS, MICROSCOPIC (06/21/2016 10:35 AM EST) [...] 4:50 PM EST Narrative Resulting Agency Comment [id number] Brandyn Pagan MD LAB SAME DAY RESULT Final Resul t Performing Organization Address [facility] de Phone Number [facility] [address] [place] [address] documented in this encounter Visit Diagnoses Diagnosis Frequent urination Urinary frequency documented in this encounter Care Teams Polygraph Operator Relationship Specialty Start Date End Date Brandyn Pagan MD PCP - General Internal Medicine 08/07/15 02/02/17 Radha Spangler NP PCP - Backup PCP Internal Medicine 01/11/16 02/02/17 Unknown Pcp, Non Rmg PCP - General 02/03/17 documented as of this encounter
--- OUTSIDE RECORDS SUMMARY | 2024-07-31 16:25 | XMS_ITS | Encounter Summary ---
Author Organization [facility] Address [address] [place] [address] Care Team Providers Care Real Estate Recruiter Name Role Phone Unknown Pcp, Non Rmg Primary Care Provider Unava ilable Encounter Details Date Type Department Care Team (Late st Contact Info) Description 02/03/2017 Orders Only [place] [facility] [address] [place] [id number] Unknown Pcp, Non Rmg Social History Tobacco [...] on filedocumented in this encounter Care Teams Real Estate Recruiter Relationship Specialty Start Date End Date Unknown Pcp, Non Rmg PCP - General 02/03/17 documented as of this encounter
--- OUTSIDE RECORDS SUMMARY | 2024-07-31 16:25 | XMS_ITS | Clinical Summary ---
Author Organization [facility] [employer] [facility] [employer] Address [address] [place] [address] Care Team Providers Care Roving Teller Name Role Phone Pcp, No Primary Care Provider Social History Tobacco Use Types Packs/Day Years [...] Adults 18 yrs or above (or HM Modifier)([facility]) 1968 Hepatitis C Virus Infection in Adolescents and Adults: Screening (or Modifier) ([facility]) 1969 SDOH Screening Reminder: Corry ivy for all adults ([facility]) 1969 Tobacco Smoking Cessation: i n Adults excluding Women: Behavioral and Pharmacotherapy Interventions ([facility]) 1969 DTaP/Tdap/Td Vaccines ([facility]) (1 - Tdap) 1970 Colorectal Cancer Screening 45 -75 Yrs (or HM Modifier ) 1996 Colorectal Cancer: FLEXIBLE SIGMOIDOSCOPY Screening every 5 yrs 1996 Colorectal Cancer: Fecal Imm unochemical Test (FIT) Annually [facility] 1996 Colorectal Cancer: High-sens itivity gFOBT Screening Annually [facility] 1996 Colorectal Cancer: Stool Col oguard Screening every 3 yrs 1996 Colorectal Cancer:CT Colonography Screening every 5 yr s 1996 Lipid Screening: Every 5 yrs for Women aged 45+ (or HM Modifier) ([facility]) 1997 Breast Cancer: Screening Corry ually age 50-74 yrs (or HM Modifier)([facility]) 2001 Zoster/Shingles Vaccine Seri es Screening: Adults aged 18+ yrs (or HM Modifiers)([facility]) (1 of 2) 2001 Osteoporosis Screening to Pr event Fractures: Women aged 65 years+ ([facility]) 2016 Pneumococcal Vaccination Scr eening: Patients 65+ yrs of age ([facility]) (1 of 1 - PCV) 2016 Flu Vaccination: Ages 65+: Y early High Dose Recommended (or Modifier)([facility]) 12/21/2023 COVID-19 Vaccine Screening: Initial Series and Booster Status ([facility]) ( - 2023-25 season) 2024 RSV Vaccines (1 - 1-dose 75+ series) 2026 [employer] Not on file Insurance Care Teams Roving Teller Relationship Specialty Start Date End Date Pcp, Mayte PCP - General Family Medicine 08/15/20
--- OUTSIDE RECORDS SUMMARY | 2024-07-31 16:25 | XMS_ITS | Encounter Summary ---
Author Organization [facility] Address [address] [place] [address] Care Team Providers Care Pin Setter Name Role Phone Unknown Pcp, Non Rmg [...] Date Expiration Date Visits Requested Visits Authorized [id number] Canceled Service Not Available at Clinic 02/03/2017 1 1 Encounter Details Date Type Department Care Team (Late st Contact Info) Description 02/03/2017 Orders Only [facility] [address] [place] [address] Brandyn Pagan MD Social History Tobacco Use [...] chronicity documented in this encounter Care Teams Pin Setter Relationship Specialty Start Date End Date Unknown Pcp, Non Rmg PCP - General 02/03/17 documented as of this encounter
--- OUTSIDE RECORDS SUMMARY | 2024-07-31 16:25 | XMS_ITS | Encounter Summary ---
Author Organization [facility] Address [address] [place] [address] Care Team Providers Care Macroeconomics Professor Name Role Phone Brandyn Pagan MD Primary Care Provider UnavailRadha Mas NP Unavailable Unavailable Unknown Pcp, Non Rmg Primary Care Provider Unava ilable Encounter Details Date Type Department Care Team (Late st Contact Info) Description 03/09/2016 Orders Only [facility] [address] [place] [address] Brandyn Pagan MD Social History Tobacco Use [...] this encounter Procedures * Due to [place] [employer] law, this organization might not be sharing negative HIV tests. Procedure Name Priority Date/Time Associated Diagnosis Comments CLOSTRIDIUM DIFFICILE TOXIN/GDH WITH REFLEX TO PCR Routine 03/09/2016 12:41 PM EDT Diarrhea, unspecified type documented in this encounter Results * Due to [place] [employer] law, this organization might not be sharing negative HIV tests. * CLOSTRIDIUM DIFFICILE TOXIN/GDH WITH REFLEX TO PCR (03/09/2016 12:41 PM EDT) Clostridium Difficile (Stool) SEE NOTE [facility] Comment: {CLOSTRIDIUM DIFFICILE TOXIN/GDH W/REFL TO PCR {[id number]) ??CLOSTRIDIUM DIFFICILE TOXIN/GDH W/REFL TO PCR ??MICRO NUMBER: ?[id number] ??TEST STATUS: ? FINAL ??SPECIMEN SOURCE: ?? STOOL ??SPECIMEN QUALITY: ??ADEQUATE ??GDH ANTIGEN: ? Not Detected ??TOXIN A AND B: ? Not Detected ??COMMENT: ? No toxigenic C. difficile detected 03/09/2016 12:4 1 PM EDT 03/09/2016 7:22 PM EDT Narrative Resulting Agency Comment [id number] Brandyn Pagan MD LABORATORY Final Result [facility] [address] [place] [address] documented in this encounter Visit Diagnoses Diagnosis Diarrhea, unspecified type documented in this encounter Care Teams Macroeconomics Professor Relationship Specialty Start Date End Date Brandyn Pagan MD PCP - General Internal Medicine 08/07/15 02/02/17 Radha Spangler NP PCP - Backup PCP Internal Medicine 01/11/16 02/02/17 Unknown Pcp, Non Rmg PCP - General 02/03/17 documented as of this encounter
--- OUTSIDE RECORDS SUMMARY | 2024-07-31 16:25 | XMS_ITS | Encounter Summary ---
Author Organization [facility] Address [address] [place] [address] Care Team Providers Care City Recorder Name Role Phone Brandyn Pagan MD Primary Care Provider Unavaila Radha Fink NP Unavailable Unavailable Unknown Pcp, Non Rmg Primary Care Provider Unava ilable Encounter Details Date Type Department Care Team (Late st Contact Info) Description 04/08/2016 Orders Only [facility] [address] [place] [address] Radha Spangler NP Social History Tobacco Use [...] this encounter Procedures * Due to [place] law, this organization might not be sharing [...] this encounter Results * Due to [place] law, this organization might not be sharing negative HIV tests. * (ABNORMAL) CULTURE, URINE, ROUTINE (04/08/2016 12:17 PM EST) Bacteria culture (Urine) SEE NOTE(A) [facility] Comment: {CULTURE, URINE, ROUTINE {[id number]) ??CULTURE, URINE, ROUTINE ??MICRO NUMBER: ?[id number] ??TEST STATUS: ? FINAL ??SPECIMEN SOURCE: ?? [...] 7:00 PM EST Narrative Resulting Agency Comment [id number] Radha Spangler NP LABORATORY Final Result [facility] [address] [place] [address] * (ABNORMAL) URINALYSIS, COMPLETE INCLUDES DIPSTICK AND MICROSCOPIC (04/08/2016 12:17 PM EST) Color (Urine) YELLOW YELLOW [facility] Comment:{COLOR {[id number]) Appearance (Urine) CLEAR CLEAR [facility] Comment:{APPEARANCE {[id number]) Specific gravity (Urine) 1.019 1.001 - 1.035 [facility] Comment:{SPECIFIC GRAVITY {[id number]) pH (Urine) 6.5 5.0 - 8.0 [facility] Comment:{PH {[id number]) Glucose (Urine) NEGATIVE NEGATIVE [facility] Comment:{GLUCOSE {[id number]) Bilirubin (Urine) NEGATIVE NEGATIVE [facility] Comment:{BILIRUBIN {[id number]) Ketones (Urine) NEGATIVE NEGATIVE [facility] Comment:{KETONES {[id number]) Hemoglobin (Urine) NEGATIVE NEGATIVE [facility] Comment:{OCCULT BLOOD {[id number]) Protein (Urine) NEGATIVE NEGATIVE [facility] Comment:{PROTEIN {[id number]) Nitrite (Urine) NEGATIVE NEGATIVE [facility] Comment:{NITRITE {[id number]) Leukocyte esterase (Urine) TRACE(A) NEGATIVE [facility] Comment:{LEUKOCYTE ESTERASE {[id number]) WBC (Urine) 0-5 < OR = 5 /HPF [facility] Comment:{WBC {[id number]) RBC (Urine Sed) NONE SEEN < OR = 2 /HPF [facility] Comment:{RBC {[id number]) Epithelial cells.squamous (Urine sed) 0-5 < OR = 5 /HPF [facility] Comment:{SQUAMOUS EPITHELIAL CELLS {[id number]) Bacteria (Urine) NONE SEEN NONE SEEN /HPF [facility] Comment:{BACTERIA {[id number]) Hyaline casts (Urine sed) NONE SEEN NONE SEEN /LPF [facility] Comment:{HYALINE CAST {[id number]) 04/08/2016 12:1 7 PM EST 04/08/2016 7:00 PM EST Narrative Resulting Agency Comment [id number] Radha Spangler ASSISTANT HALL DIRECTOR LAB SAME DAY RESULT Final Re sult [facility] [address] [place] [address] * HEPATIC FUNCTION PANEL (ALT,AST,ALK PH,BILI'S,TP,ALB) (04/08/2016 12:17 PM EST) Protein Total (Serum) 6.1 6.1 - 8.1 g/dL [facility] Comment:{PROTEIN, TOTAL {[id number]) Albumin 4.2 3.6 - 5.1 g/dL [facility] Comment:{ALBUMIN {[id number]) Globulin 1.9 1.9 - 3.7 g/dL (calc) [facility] Comment:{GLOBULIN {[id number]) Albumin/Globulin 2.2 1.0 - 2.5 (calc) [facility] Comment:{ALBUMIN/GLOBULIN RA LANA {[id number]) Bilirubin Total 0.3 0.2 - 1.2 mg/dL [facility] Comment:{BILIRUBIN, TOTAL {[id number]) Bilirubin Direct 0.1 < OR = 0.2 mg/dL [facility] Comment:{BILIRUBIN, DIRECT { [id number]) Bilirubin Indirect 0.2 0.2 - 1.2 mg/dL (calc) [facility] Comment:{BILIRUBIN, INDIRECT {[id number]) Alkaline phosphatase 111 33 - 130 U/L [facility] Comment:{ALKALINE PHOSPHATAS E {[id number]) AST (SGOT) 21 10 - 35 U/L [facility] Comment:{AST {[id number]) ALT (SGPT) 22 6 - 29 U/L [facility] Comment:{ALT {[id number]) 04/08/2016 12:1 7 PM EST 04/08/2016 7:00 PM EST Narrative Resulting Agency Comment [id number] Radha Spangler NP LABORATORY Final Result Performing Organization Address City/[facility] [address]/ZIP Co de Phone Number [facility] [address] [place] [address] * CREATINE KINASE (CK), SERUM (04/08/2016 12:17 PM EST) CPK 133 29 - 143 U/L [facility] Comment:{CREATINE KINASE, TO KENZIE {[id number]) 04/08/2016 12:1 7 PM EST 04/08/2016 7:00 PM EST Narrative Resulting Agency Comment [id number] Radha Spangler NP LAB SAME DAY RESULT Final Re sult Performing Organization Address City/[facility] [address]/ZIP Co de Phone Number [facility] [address] [place] [address] * (ABNORMAL) BASIC METABOLIC PANEL WITH (GFR) (04/08/2016 12:17 PM EST) Glucose 101(H) 65 - 99 mg/dL [facility] Comment: {GLUCOSE {[id number]) ? Fasting reference interval Urea Nitrogen Blood (BUN) 37(H) 7 - 25 mg/dL [facility] Comment:{UREA NITROGEN (BUN) {[id number]) Creatinine 1.13(H) 0.50 - 0.99 mg/dL [facility] Comment: {CREATININE {[id number]) For patients >49 years of age, the reference limit for Creatinine is approximately 13% higher for people identified as -Bur[place]ian. GFR 51(L) > OR = 60 mL/min/1. 73m2 [facility] Comment:{eGFR NON-AFR. AMERI CAN {[id number]) GFR () 59(L) > OR = 60 mL/min/1. 73m2 [facility] Comment:{eGFR AMERIC AN {[id number]) BUN/Creatinine Ratio 33(H) 6 - 22 (calc) [facility] Comment:{BUN/CREATININE RATI O {[id number]) Sodium 139 135 - 146 mmol/L [facility] Comment:{SODIUM {[id number]) Potassium 5.1 3.5 - 5.3 mmol/L [facility] Comment:{POTASSIUM {[id number]) Chloride 105 98 - 110 mmol/L [facility] Comment:{CHLORIDE {[id number]) Carbon dioxide 25 20 - 31 mmol/L [facility] Comment:{CARBON DIOXIDE {[id number]) Calcium 9.4 8.6 - 10.4 mg/dL [facility] Comment:{CALCIUM {[id number]) 04/08/2016 12:1 7 PM EST 04/08/2016 [...] needs for GFR calculation. Resulting Agency Comment [id number] Radha Spangler NP LABORATORY Final Result [facility] [address] [place] [address] documented in this encounter Visit Diagnoses Diagnosis [...] organs documented in this encounter Care Teams City Recorder Relationship Specialty Start Date End Date Brandyn Pagan MD PCP - General Internal Medicine 08/07/15 02/02/17 Radha Spangler NP PCP - Backup PCP Internal Medicine 01/11/16 02/02/17 Unknown Pcp, Non Rmg PCP - General 02/03/17 documented as of this encounter
--- OUTSIDE RECORDS SUMMARY | 2024-07-31 16:25 | XMS_ITS | Encounter Summary ---
Author Organization [facility] Address [address] [place] [address] Care Team Providers Care Lower School Spanish Teacher Name Role Phone Brandyn Pagan MD Primary Care Provider Radha Cuevas NP Unavailable Unavailable Unknown Pcp, Non Rmg Primary Care Provider Unava ilable Encounter Details Date Type Department Care Team (Late st Contact Info) Description 09/09/2016 Orders Only [facility] [address] [place] [address] Brandyn Pagan MD Social History Tobacco Use [...] 5:38 PM EDT Letter sent * Brandyn Paagn - 09/15/2016 4:43 PM EDT The results [...] of this encounter Procedures * Due to [place] [employer] law, this organization might not be sharing negative HIV tests. Procedure Name Priority Date/Time Associated Diagnosis Comments URINALYSIS, DIP ONLY STAT (All results called to provider) 09/09/2016 12:32 PM EDT Frequency of urination CULTURE, URINE, ROUTINE Routine 09/09/2016 12:28 PM EDT Frequency of urination URINALYSIS, MICROSCOPIC Routine 09/09/2016 12:28 PM EDT Frequency of urination documented in this encounter Results * Due to [place] [employer] law, this organization might not be sharing negative HIV tests. * URINALYSIS, DIP ONLY ( SITE STAT ONLY) (09/09/2016 12:32 PM EDT) COLOR (URINE) Yellow [facility] (CLIA# [id number]) APPEARANCE (URINE) Clear Clear [facility] (CLIA# [id number]) SPECIFIC GRAVITY 1.015 1.001 - 1.035 [facility] (CLIA# [id number]) PH (URINE) 6.0 5.0 - 8.0 [facility] (CLIA# [id number]) PROTEIN (URINE) Negative Neg [facility] (CLIA# [id number]) GLUCOSE (URINE) Negative Neg [facility] (CLIA# [id number]) Ketones (Urine) Negative Neg [facility] (CLIA# [id number]) BILIRUBIN (URINE) Negative Neg [facility] (CLIA# [id number]) BLOOD (URINE) Negative Neg [facility] (CLIA# [id number]) Leukocyte esterase (Urine) Negative Neg [facility] (CLIA# [id number]) NITRITE (URINE) Negative Neg [facility] (CLIA# [id number]) Urine specimen obtained by clean catch procedure (specimen) 09/09/2016 12:32 PM EDT Narrative [facility] (CLIA# [id number]) - 09/09/2016 12:36 PM EDT Micro and culture already ordered per provider. us Brandyn Pagan MD LAB SAME DAY RESULT Final Resul t Performing Organization Address [facility] de Phone Number [facility] (CLIA# [id number]) [address] [place] [address] * CULTURE, URINE, ROUTINE (09/09/2016 12:28 PM EDT) Bacteria culture (Urine) SEE NOTE [facility] Comment: ??CULTURE, URINE, ROUTINE ??MICRO NUMBER: ?[id number] ??TEST STATUS: ? FINAL ??SPECIMEN SOURCE: ?? URINE ??SPECIMEN QUALITY: ??ADEQUATE ??RESULT: ?Multiple organisms present, each less than 10,000 ? CFU/mL. These organisms, commonly found on ? external and internal genitalia, are considered ? to be colonizers. No further testing performed. 09/09/2016 12:2 8 PM EDT 09/09/2016 7:38 PM EDT Narrative Resulting Agency Comment [id number] us Brandyn Pagan MD LABORATORY Final Result Performing Organization Address [facility]/ZIP Co de Phone Number [facility] [address] [place] [address] * URINALYSIS, MICROSCOPIC (09/09/2016 12:28 PM EDT) [...] 7:38 PM EDT Narrative Resulting Agency Comment [id number] us Brandyn Pagan MD LAB SAME DAY RESULT Final Resul t [facility] [address] [place] [address] documented in this encounter Visit Diagnoses Diagnosis Frequency of urination Urinary frequency documented in this encounter Care Teams Lower School Spanish Teacher Relationship Specialty Start Date End Date Brandyn Pagan MD PCP - General Internal Medicine 08/07/15 02/02/17 Radha Spangler NP PCP - Backup PCP Internal Medicine 01/11/16 02/02/17 Unknown Pcp, Non Rmg PCP - General 02/03/17 documented as of this encounter
--- OUTSIDE RECORDS SUMMARY | 2024-07-31 16:25 | XMS_ITS | Encounter Summary ---
Author Organization [facility] Address [address] [place] [address] Care Team Providers Care Wire Fence Erector Name Role Phone Brandyn Pagan MD Primary Care Provider Radha Cuevas NP Unavailable Unavailable Unknown Pcp, Non Rmg Primary Care Provider Unava ilable Reason for Visit * Reason Comments ER F/U Encounter Details Date Type Department Care Team (Late st Contact Info) Description 07/29/2016 [facility] Medicine [address] [place] [phone] Brandyn Pagan MD ER F/U Social [...] following an Emergency Department visit. ED location: [facility] ER Date of ED Visit: 07-26-16 [...] on filedocumented in this encounter Care Teams Wire Fence Erector Relationship Specialty Start Date End Date Brandyn Pagan MD PCP - General Internal Medicine 08/07/15 02/02/17 Radha Spangler NP PCP - Backup PCP Internal Medicine 01/11/16 02/02/17 Unknown Pcp, Non Rmg PCP - General 02/03/17 documented as of this encounter
--- OUTSIDE RECORDS SUMMARY | 2024-07-31 16:25 | XMS_ITS | Encounter Summary ---
Author Organization [facility] Address [address] [place] [address] Care Team Providers Care Hot Mill Roller Name Role Phone Brandyn Pagan MD Primary Care Provider Radha Cuevas NP Unavailable Unavailable Unknown Pcp, Non Rmg Primary Care Provider Unava ilable Reason for Referral * CONSULT AND TREATMENT (Routine) - Closed Specialty Diagnoses / Procedures Referred By Contadam t Referred To Contact Chiropractic Diagnoses Back pain, unspecified back location, unspecified back pain laterality, unspecified chronicity Brandyn Pagan MD [place], [address] [place] [address] Phone: tel: fax: Referral ID Status Reason Start Date Expiration Date V isits Requested Visits Authorized [id number] Closed Chiropractor 01/27/2017 05/21/2017 1 1 Encounter Details Date Type Department Care Team (Late st Contact Info) Description 01/27/2017 Orders Only [facility] [address] [place] [phone] Brandyn Pagan MD Social History Tobacco Use [...] chronicity documented in this encounter Care Teams Hot Mill Roller Relationship Specialty Start Date End Date Brandyn Pagan MD PCP - General Internal Medicine 08/07/15 02/02/17 Radha Spangler NP PCP - Backup PCP Internal Medicine 01/11/16 02/02/17 Unknown Pcp, Non Rmg PCP - General 02/03/17 documented as of this encounter
--- OUTSIDE RECORDS SUMMARY | 2024-07-31 16:25 | XMS_ITS | Encounter Summary ---
Author Organization [facility] Address [address] [place] [address] Care Team Providers Care Lead Setter Name Role Phone Brandyn Pagan MD Primary Care Provider Unavaila Radha Fink NP Unavailable Unavailable Unknown Pcp, Non Rmg Primary Care Provider Unava ilable Encounter Details Date Type Department Care Team (Late st Contact Info) Description 03/18/2016 Orders Only [facility] [address] [place] [address] Radha Spangler NP Social History Tobacco Use [...] this encounter Procedures * Due to [place] law, this organization might not be sharing [...] this encounter Results * Due to [place] law, this organization might not be sharing negative HIV tests. * (ABNORMAL) BASIC METABOLIC PANEL WITH (GFR) (03/18/2016 10:02 AM EDT) Glucose 102(H) 65 - 99 mg/dL [facility] Comment: {GLUCOSE {[id number]) ? Fasting reference interval Urea Nitrogen Blood (BUN) 21 7 - 25 mg/dL [facility] Comment:{UREA NITROGEN (BUN) {[id number]) Creatinine 0.95 0.50 - 0.99 mg/dL [facility] Comment: {CREATININE {[id number]) For patients >49 years of age, the reference limit for Creatinine is approximately 13% higher for people identified as -H[place] Konger. GFR 63 > OR = 60 mL/min/1 .73m2 [facility] Comment:{eGFR NON-AFR. AMERI CAN {[id number]) GFR () 73 > OR = 60 mL/min/1 .73m2 [facility] Comment:{eGFR AMERIC AN {[id number]) BUN/Creatinine Ratio NOT APPLICABLE (calc) [facility] Comment:{BUN/CREATININE RATI O {[id number]) Sodium 139 135 - 146 mmol/L [facility] Comment:{SODIUM {[id number]) Potassium 4.8 3.5 - 5.3 mmol/L [facility] Comment:{POTASSIUM {[id number]) Chloride 106 98 - 110 mmol/L [facility] Comment:{CHLORIDE {[id number]) Carbon dioxide 25 20 - 31 mmol/L [facility] Comment:{CARBON DIOXIDE {[id number]) Calcium 9.3 8.6 - 10.4 mg/dL [facility] Comment:{CALCIUM {[id number]) 03/18/2016 10:0 2 AM EDT 03/18/2016 [...] needs for GFR calculation. Resulting Agency Comment [id number] Radha Spangler NP LABORATORY Final Result [facility] [address] [place] [address] * (ABNORMAL) CREATINE KINASE (CK), SERUM (03/18/2016 10:02 AM EDT) CPK 196(H) 29 - 143 U/L [facility] Comment:{CREATINE KINASE, TO KENZIE {[id number]) 03/18/2016 10:0 2 AM EDT 03/18/2016 4:21 PM EDT Narrative Resulting Agency Comment [id number] Radha Spangler NP LAB SAME DAY RESULT Final Re sult [facility] [address] [place] [address] * (ABNORMAL) ALANINE AMINOTRANSFERASE (ALT), SERUM (03/18/2016 10:02 AM EDT) ALT (SGPT) 32(H) 6 - 29 U/L [facility] Comment:{ALT {[id number]) 03/18/2016 10:0 2 AM EDT 03/18/2016 4:21 PM EDT Narrative Resulting Agency Comment [id number] Radha Spangler CYBER INCIDENT RESPONDER LAB SAME DAY RESULT Final Re sult Performing Organization Address [facility] Co de Phone Number [facility] [address] [place] [address] * (ABNORMAL) LIPID PANEL WITH REFLEX TO DIRECT LDL (03/18/2016 10:02 AM EDT) Cholesterol 274(H) 125 - 200 mg/dL [facility] Comment:{CHOLESTEROL, TOTAL {[id number]) HDL Cholesterol 74 > OR = 46 mg/dL [facility] Comment:{HDL CHOLESTEROL {[id number]) Triglyceride 165(H) <150 mg/dL [facility] Comment:{TRIGLYCERIDES {[id number]) LDL Cholesterol 167(H) <130 mg/dL (calc) [facility] Comment: {LDL-CHOLESTEROL {[id number]) Desirable range <100 mg/dL for patients with CHD or diabetes and <70 mg/dL for diabetic patients with known heart disease. CHOL/HDL Ratio 3.7 < OR = 5.0 (calc) [facility] Comment:{CHOL/HDLC RATIO {[id number]) Cholesterol Non-HDL 200(H) mg/dL (calc) [facility] Comment: {NON HDL CHOLESTEROL {[id number]) Target for non-HDL cholesterol is 30 mg/dL higher than LDL cholesterol target. 03/18/2016 10:0 2 AM EDT 03/18/2016 4:21 PM EDT Narrative Resulting Agency Comment [id number] Radha Spangler NP LABORATORY Final Result [facility] [address] [place] [address] documented in this encounter Visit Diagnoses Diagnosis Hyperlipidemia, unspecified hyperlipidemia type Essential hypertension with goal blood pressure less than 140/90 documented in this encounter Care Teams Lead Setter Relationship Specialty Start Date End Date Brandyn Pagan MD PCP - General Internal Medicine 08/07/15 02/02/17 Radha Spangler NP PCP - Backup PCP Internal Medicine 01/11/16 02/02/17 Unknown Pcp, Non Rmg PCP - General 02/03/17 documented as of this encounter
--- OUTSIDE RECORDS SUMMARY | 2024-07-31 16:25 | XMS_ITS | Encounter Summary ---
Author Organization [facility] Address [address] [place] [address] Care Team Providers Care Drop Press Hand Name Role Phone Brandyn Pagan MD Primary Care Provider UnavailRadha Mas NP Unavailable Unavailable Unknown Pcp, Non Rmg Primary Care Provider Unava ilable Encounter Details Date Type Department Care Team (Late st Contact Info) Description 10/24/2016 Orders Only [address] [phone] Concha Bustillo PA [address] [place] [id number] Social History Tobacco Use Types Packs/Day Years [...] this encounter Procedures * Due to [place] [employer] law, this organization might not be sharing negative HIV tests. Procedure Name Priority Date/Time Associated Diagnosis Comments EKG-USE ONLY IN [facility]/OCC MED/CARDIO Routine 10/21/2016 4:41 PM EDT Acute pain of right shoulder documented in this encounter Results * Due to [place] [employer] law, this organization might not be sharing [...] shoulder documented in this encounter Care Teams Drop Press Hand Relationship Specialty Start Date End Date Brandyn Pagan MD PCP - General Internal Medicine 08/07/15 02/02/17 Radha Spangler NP PCP - Backup PCP Internal Medicine 01/11/16 02/02/17 Unknown Pcp, Non Rmg PCP - General 02/03/17 documented as of this encounter
--- OUTSIDE RECORDS SUMMARY | 2024-07-31 16:25 | XMS_ITS | Clinical Summary ---
Author Organization [facility] Address [address] [place] [address] Care Team Providers Care Station Mechanic Helper Name Role Phone Unknown Pcp, Non [...] however patient is planning on moving to [place] in the next few weeks. She does [...] (when compared with previous ct scan from [facility], but NEW lung nodule R middle lobe 2 mm. Will f/u with screen CT in 1 year HTN 11/02/2015 Cervical spondylosis with radiculopathy 11/02/19 16 Flat foot (pes planus) (acquired), left foot Psoriasis 11/02/2015 Major depression in partial remission 11/02/2015 Overview (12/21/2016): Refer to PCP cpe dated 01/11/16 Psych: Reports anxiety and depression are stable. Sees Dr. Alvarado psychiatrist, in [place]. He prescribes lamotrigine, duloxetine, tramadol, Adderall. 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 Irene Christensen in [place]. Confirmed with their office that she is [...] or Zetia. The 10-year ASCVD risk score ([place] SUNDEEP Mejia, et al., 2013) is: 6.7% [...] Radha Spangler NP Procedures * Due to [place] [employer] law, this organization might not be sharing negative HIV tests. 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
--- OUTSIDE RECORDS SUMMARY | 2024-07-31 16:25 | XMS_ITS | Encounter Summary ---
Author Organization [facility] Address [address] [place] [address] Care Team Providers Care Wood Tile Installation Helper Name Role Phone Bijal Fox NP Primary Care Provider [phone] Encounter Details Date Type Department Care Team (Late st Contact Info) Description 07/31/2024 12:09 PM EDT Hospital Encounter [facility] [address] [place] [address] Sonny Reed MD [address] [place] [address] Pain Social History Tobacco Use Types Packs/Day Years Used Date Smoking Tobacco: Former Smokeless Tobacco: Never Comments:: Alcohol Use Standard Drinks/Week Comments Not Currently 0 (1 standard drink = 0.6 oz pur e alcohol) [facility] Utilities Answer Date Recorded In [...] Description 08/01/2024 2:00 PM EDT Follow-Up [facility] Nephrology [address] [facility] [address] [place] [address] John Hendricks MD [address] [address] 09/18/2024 11:00 AM EDT Follow-Up [facility] [address] [place] [address] MarvinJeffery PA [address] [place] [address] 01/08/2025 10:00 AM EDT Follow-Up [facility] 100 [facility] [address] [place] [address] Mabel Onofre NP 100 [facility] [address] [place] [address] documented as of this encounter Procedures * Due to [place] law, this organization might not be sharing negative HIV tests. Procedure Name Priority Date/Time Associated Diagnosis Comments FL C-ARM WITH IMAGES NONREPORTABLE Routine 07/31/2024 10:49 AM EDT Pain documented in this encounter Results * Due to [facility] law, this organization might not be [...] pain documented in this encounter Care Teams Wood Tile Installation Helper Relationship Specialty Start Date End Date Bijal Fox, MEY [address] [place] [phone] PCP - General Family Medicine 05/30/24 documented as of this encounter
--- OUTSIDE RECORDS SUMMARY | 2024-07-31 16:25 | XMS_ITS | Encounter Summary ---
Author Organization [facility] Address [address] [place] [address] Care Team Providers Care Tax Form Preparer Name Role Phone Brandyn Pagan MD Primary Care Provider Unavaila Radha Fink NP Unavailable Unavailable Unknown Pcp, Non [facility] Primary Care Provider Unava ilable Encounter Details Date Type Department Care Team (Late st Contact Info) Description 06/09/2016 Orders Only [facility] [address] [place] [address] Radha Spangler NP Social History Tobacco Use [...] in this encounter Results * Due to [facility] law, this organization might not be sharing [...] approximately 13% higher for people identified as -[place]cu[place]. GFR 42(L) > OR = 60 mL/min/1. [...] needs for GFR calculation. Resulting Agency Comment [id number] us Radha Spangler NP LABORATORY Final Result Performing Organization Address [facility] Co de Phone Number [facility] [address] [place] [address] * ALANINE AMINOTRANSFERASE (ALT), SERUM (06/09/2016 11:23 AM EST) ALT (SGPT) 25 6 - 29 U/L [facility] 06/09/2016 11:2 3 AM EST 06/09/2016 4:58 PM EST Narrative Resulting Agency Comment [id number] Radha Spangler NP LAB SAME DAY RESULT Final Re sult Performing Organization Address [facility] de Phone Number [facility] [address] [place] [address] * (ABNORMAL) LIPID PANEL WITH REFLEX TO [...] 4:58 PM EST Narrative Resulting Agency Comment [id number] us Radha Spangler NP LABORATORY Final Result Performing Organization Address [facility] Co de Phone Number [facility] [address] [place] [address] documented in this encounter Visit Diagnoses Diagnosis Hyperlipidemia, unspecified hyperlipidemia type Essential hypertension with goal blood pressure less than 140/90 documented in this encounter Care Teams Tax Form Preparer Relationship Specialty Start Date End Date Brandyn Pagan MD PCP - General Internal Medicine 08/07/15 02/02/17 Radha Spangler NP PCP - Backup PCP Internal Medicine 01/11/16 02/02/17 Unknown Pcp, Non [facility] PCP - General 02/03/17 documented as of this encounter
--- OUTSIDE RECORDS SUMMARY | 2024-07-31 16:25 | XMS_ITS | Encounter Summary ---
Author Organization [facility] Address [address] [place] [address] Care Team Providers Care Extruder Operator Name Role Phone Brandyn Pagan MD Primary Care Provider Unavaila Radha Fink NP Unavailable Unavailable Unknown Pcp, Non [facility] Primary Care Provider Unava ilable Encounter Details Date Type Department Care Team (Late st Contact Info) Description 09/21/2016 Orders Only [facility] [address] [place] [address] Radha Spangler NP Social History Tobacco Use [...] this encounter Procedures * Due to [place] [employer] [employer] law, this organization might not be sharing negative HIV tests. Procedure Name Priority Date/Time Associated Diagnosis Comments ALANINE AMINOTRANSFERASE (ALT), SERUM Routine 09/21/2016 1:41 PM EDT Hyperlipidemia, unspecified hyperlipidemia type LIPID PANEL WITH REFLEX TO DIRECT LDL Routine 09/21/2016 1:41 PM EDT Hyperlipidemia, unspecified hyperlipidemia type documented in this encounter Results * Due to [place] [employer] [employer] law, this organization might not be sharing negative HIV tests. * ALANINE AMINOTRANSFERASE (ALT), SERUM (09/21/2016 1:41 PM EDT) ALT (SGPT) 25 6 - 29 U/L [facility] 09/21/2016 1:41 PM EDT 09/21/2016 6:16 PM EDT Narrative Resulting Agency Comment [id number] Radha Spangler SIGNALING DESIGN ENGINEER LAB SAME DAY RESULT Final Re sult [facility] [address] [place] [address] * (ABNORMAL) LIPID PANEL WITH REFLEX TO [...] 6:16 PM EDT Narrative Resulting Agency Comment [id number] Radha Spangler NP LABORATORY Final Result [facility] [address] [place] [address] documented in this encounter Visit Diagnoses Diagnosis Hyperlipidemia, unspecified hyperlipidemia type documented in this encounter Care Teams Extruder Operator Relationship Specialty Start Date End Date Brandyn Pagan MD PCP - General Internal Medicine 08/07/15 02/02/17 Radha Spangler NP PCP - Backup PCP Internal Medicine 01/11/16 02/02/17 Unknown Pcp, Non [facility] PCP - General 02/03/17 documented as of this encounter
--- OUTSIDE RECORDS SUMMARY | 2024-07-31 16:25 | XMS_ITS | Encounter Summary ---
Author Organization [facility] Address [address] [place] [address] Care Team Providers Care Natural Gas Shothole Driller Name Role Phone Brandyn Pagan MD Primary Care Provider Unavaila Radha Fink NP Unavailable Unavailable Unknown Pcp, Non [facility] Primary Care Provider Unava ilable Encounter Details Date Type Department Care Team (Late st Contact Info) Description 02/19/2016 Orders Only [facility] [address] [place] [address] Brandyn Pagan MD Social History Tobacco Use [...] this encounter Procedures * Due to [place] [facility] law, this organization might not be sharing [...] in this encounter Results * Due to [place] [facility] law, this organization might not be sharing negative HIV tests. * (ABNORMAL) URINALYSIS, DIP ONLY ( SITE STAT ONLY) (02/19/2016 2:13 PM EDT) COLOR (URINE) Yellow [facility] (CLIA# [id number]) APPEARANCE (URINE) Cloudy [facility] (CLIA# [id number]) SPECIFIC GRAVITY 1.010 1.001 - 1.035 [facility] (CLIA# [id number]) PH (URINE) 7.5 5.0 - 8.0 [facility] (CLIA# [id number]) PROTEIN (URINE) Trace(A) Neg [facility] (CLIA# [id number]) GLUCOSE (URINE) Negative Neg [facility] (CLIA# [id number]) Ketones (Urine) Negative Neg [facility] (CLIA# [id number]) BILIRUBIN (URINE) Negative Neg [facility] (CLIA# [id number]) BLOOD (URINE) Negative Neg [facility] (CLIA# [id number]) Leukocyte esterase (Urine) 2+(A) [facility] (CLIA# [id number]) NITRITE (URINE) Negative Neg [facility] (CLIA# [id number]) Urine specimen obtained by clean catch procedure (specimen) 02/19/2016 2:13 PM EDT Narrative [facility] (CLIA# [id number]) - 02/19/2016 2:14 PM EDT Micro and culture already ordered per provider. us Brandyn Pagan MD LAB SAME DAY RESULT Final Resul t [facility] (CLIA# [id number]) [address] [place] [address] * (ABNORMAL) CULTURE, URINE, ROUTINE (02/19/2016 2:00 PM EDT) Bacteria culture (Urine) SEE NOTE(A) [facility] Comment: {CULTURE, URINE, ROUTINE {[id number]) ??CULTURE, URINE, ROUTINE ??MICRO NUMBER: ?[id number] ??TEST STATUS: ? FINAL ??SPECIMEN SOURCE: ?? URINE ??SPECIMEN QUALITY: ??ADEQUATE ??RESULT: ?50,000-100,000 CFU/mL of Escherichia coli ? Greater than 100,000 CFU/mL of ? Staphylococcus saprophyticus ? The Clinical Laboratory Standards [place] (M100 ? guidelines), does not advise routine [...] 7:35 PM EDT Narrative Resulting Agency Comment [id number] Brandyn Pagan MD LABORATORY Final Result [facility] [address] [place] [address] * (ABNORMAL) URINALYSIS, MICROSCOPIC (02/19/2016 2:00 PM EDT) WBC (Urine) 20-40(A) < OR = 5 /HPF [facility] Comment:{WBC {[id number]) RBC (Urine Sed) NONE SEEN < OR = 2 /HPF [facility] Comment:{RBC {[id number]) Epithelial cells.squamous (Urine sed) NONE SEEN < OR = 5 /HPF [facility] Comment:{SQUAMOUS EPITHELIAL CELLS {[id number]) Bacteria (Urine) FEW(A) NONE SEEN /HPF [facility] Comment:{BACTERIA {[id number]) Hyaline casts (Urine sed) NONE SEEN NONE SEEN /LPF [facility] Comment:{HYALINE CAST {[id number]) 02/19/2016 2:00 PM EDT 02/19/2016 7:35 PM EDT Narrative Resulting Agency Comment [id number] us Brandyn Pagan MD LAB SAME DAY RESULT Final Resul t Performing Organization Address City/State/[facility] Co de Phone Number [facility] [address] [place] [address] documented in this encounter Visit Diagnoses Diagnosis Urinary tract infection, site unspecified documented in this encounter Care Teams Natural Gas Shothole Driller Relationship Specialty Start Date End Date Brandyn Pagan MD PCP - General Internal Medicine 08/07/15 02/02/17 Radha Spangler NP PCP - Backup PCP Internal Medicine 01/11/16 02/02/17 Unknown Pcp, Non [facility] PCP - General 02/03/17 documented as of this encounter
--- OUTSIDE RECORDS SUMMARY | 2024-07-31 16:25 | XMS_ITS | Encounter Summary ---
Author Organization [facility] Address [address] [place] [address] Care Team Providers Care Land Department Head Name Role Phone Brandyn Pagan MD Primary Care Provider Unavaila Radha Fink NP Unavailable Unavailable Unknown Pcp, Non [facility] Primary Care Provider Unava ilable Encounter Details Date Type Department Care Team (Late st Contact Info) Description 09/21/2016 Orders Only [facility] [address] [place] [address] Filiberto Mya MD [address] [place] [address] Social History Tobacco Use Types Packs/Day Years [...] encounter Procedures * Due to [place] state law, this organization might not be sharing negative HIV tests. Procedure Name Priority Date/Time Associated Diagnosis Comments BASIC METABOLIC PANEL WITH (GFR) Routine 09/21/2016 1:41 PM EDT BILLIE (obstructive sleep apnea) documented in this encounter Results * Due to [place] state law, this organization might not be [...] approximately 13% higher for people identified as -Afghan. GFR 50(L) > OR = 60 mL/min/1. [...] needs for GFR calculation. Resulting Agency Comment [id number] us Filiberto May MD LABORATORY Final Result [facility] [address] [place] [address] documented in this encounter Visit Diagnoses Diagnosis BILLIE (obstructive sleep apnea) Obstructive sleep apnea (adult) (pediatric) documented in this encounter Care Teams Land Department Head Relationship Specialty Start Date End Date Brandyn Pagan MD PCP - General Internal Medicine 08/07/15 02/02/17 Radha Spangler NP PCP - Backup PCP Internal Medicine 01/11/16 02/02/17 Unknown Pcp, Non [facility] [place]CP - General 02/03/17 documented as of this encounter
--- OUTSIDE RECORDS SUMMARY | 2024-07-31 16:25 | XMS_ITS | Referral Summary ---
Author Organization [facility] Address [address] [place] [address] Care Team Providers Care Membership Sales Advisor Name Role Phone Bijal Fox NP Primary Care Provider [phone] Encounters Date Type Department Care Team Description 07/31/2024 12:09 PM EDT Hospital Encounter [facility] XRay [address] [place] [address] Sonny Reed MD Pain 07/31/2024 10:15 AM EDT Hospital Encounter [facility] [address] [place] [address] Sonny Reed MD Chronic left shoulder pain (Primary Dx); Left shoulder pain, unspecified chronicity 07/22/2024 11:08 AM EST - 07/22/2024 11:59 PM EST Hospital Encounter [facility] XRay [address] [place] [address] Acute pain of left shoulder Discharge Disposition: Home or Self Care () 07/22/2024 11:15 AM EST Office Visit [facility] [address] [place] [address] Marvin, AYAD Gil Primary osteoarthritis of left shoulder (Primary Dx); Rotator cuff tear arthropathy of left shoulder 07/20/2024 Orders Only [facility] Draw Site Department [address] [place] [address] Magy Sawyer NP Swelling of limb (Primary Dx) 07/19/2024 12:10 PM EST Lab [facility] Site Department [address] [place] [phone] Swelling of lower extremity (Primary Dx); Urinary tract infection without hematuria, site unspecified 07/16/2024 Lab Requisition [facility] Lab [address] [place] [address] Bijal Fox, MEY Urinary tract infection, site not specified 07/16/2024 Orders Only [facility] Site Department [address] [place] [phone] Bijal Fox, SIGNAL TOWER DIRECTOR Urinary tract infection without hematuria, site unspecified (Primary Dx) 07/16/2024 10:45 AM EST - 07/16/2024 11:59 PM EST Hospital Encounter [facility] Xray Department [address] [place] [address] Heart failure, unspecified HF chronicity, unspecified heart failure type (HCC) Discharge Disposition: Home or Self Care (01) 07/13/2024 10:30 AM EST Lab [facility] Site Department [address] [place] [address] Heart failure, unspecified HF chronicity, unspecified heart failure type (HCC) (Primary Dx); Hyperlipidemia, unspecified hyperlipidemia type; 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 Orders Only [facility] Lab [address] [place] [address] Magy Sawyer NP Hyperlipidemia, unspecified hyperlipidemia type (Primary Dx); 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/03/2024 Telephone [facility] Case Management Department [address] [place] [address] Mariajose Calvillo RN 07/03/2024 2:30 PM EST Office Visit [address] Cardiology [address] [place] [address] Mabel Onofre NP Diastolic heart failure, unspecified HF chronicity (HCC) (Primary Dx); Paroxysmal atrial fibrillation (HCC); Pulmonary hypertension (HCC); BILLIE (obstructive sleep apnea); Benign hypertensive heart disease without congestive heart failure 07/02/2024 10:05 AM EST Lab [facility] Site Department [address] [place] [address] 07/01/2024 3:15 PM EST Office Visit [facility] Nephrology [address] [facility], 2nd [place] [address] John Hendricks MD Hyperkalemia (Primary Dx); CKD stage 3a, GFR 45-59 ml/min (HCC); Chronic heart failure with preserved ejection fraction (HCC); Primary hypertension 07/01/2024 9:05 AM EST Lab [facility] Site Department [address] [place] [phone] Diastolic heart failure, unspecified HF chronicity (HCC) 07/01/2024 Orders Only [address] Cardiology [address] [place] [address] Mabel Onofre NP 06/15/2024 7:35 PM EST - 06/26/2024 6:09 PM EST Hospital Encounter [facility] [address] [address] Kevin Newsome MD Devineni, Praveen, MD Pneumonia of left lung due to infectious organism, unspecified part of lung (Primary Dx); Acute hypoxic respiratory failure (HCC) Discharge Disposition: Home with Services (06) 06/24/[address] Cardiology [address] [place] [address] Elise Boykin MA TCM 06/23/2024 Lab Requisition [facility] Lab [address] [place] [address] Mj Mendenhall MD Pneumonia due to other specified infectious organisms 06/02/2024 12:57 PM EST - 06/04/2024 3:30 PM EST Emergency [facility] [address] [address] Govind Glez MD Cebula, Maria, MD Colucci, MD Zulma Kramer Joshua T, MD Nesanelis, MD Sonny Generalized weakness (Primary Dx) Discharge Disposition: [facility] (03) from Last 3 Months Allergies Active Allergy Reactions Criticality Noted Date Comments Lansoprazole Indigestion Medium Exzezbe-Nlk-Fex Reductase Inhibitors Muscle Pain Medium Per pt [...] discontinued tomorrow. Repeat BMP Diastolic CHF, acute ([facility]/HCC) 06/19/2024 Assessment & Plan (06/24/2024 [...] on admission by SpO2 88% requiring 3-4L SIGNAL TOWER DIRECTOR. Tachypnea with RR increased to 22 RPM. She is not home-O2 dependent. -Wean supplemental O2 as tolerated, presently om room air -Taper steroids -Continue supportive therapy with nebulized bronchodilators, ICS and multiple antitussives. -Avoid increasing Tramadol in setting of COPD/asthma. Assessment & Plan (06/23/2024 4:18 PM EST): Acute Resp Failure: Evidenced on admission by SpO2 88% requiring 3-4L SIGNAL TOWER DIRECTOR. Tachypnea with RR increased to 22 RPM. She is not home-O2 dependent. Presently weaned to 2L SIGNAL TOWER DIRECTOR, but still coarse with rhonchus cough. Reduced IV steroids as no wheezing on exam and she appears tearful and depressed. Continue supportive therapy with nebulized bronchodilators, ICS and multiple antitussives. Avoid increasing Tramadol in setting of COPD/asthma. Assessment & Plan (06/22/2024 5:42 PM EST): Acute Resp Failure: Evidenced on admission by SpO2 88% requiring 3-4L SIGNAL TOWER DIRECTOR. Tachypnea with RR increased to 22 RPM. She is not home-O2 dependent. Presently weaned to 2L SIGNAL TOWER DIRECTOR, but still coarse with rhonchus cough. Reduced [...] auth. Fall precautions Ambulate with assistance A-fib ([facility]) 06/03/2024 Assessment & Plan (06/25/2024 12:39 [...] Upcoming Encounters Date Type Department Care Team ([facility] Contact Info) Description 08/01/2024 2:00 PM EDT Follow-Up [facility] Nephrology 100 [facility] [address] [place] [address] John Hendricks MD 123 [facility] [address] [place] [address] 09/18/2024 11:00 AM EDT Follow-Up [facility] [address] [place] [address] MarvinJeffery PA [address] [place] [address] 01/08/2025 10:00 AM EDT Follow-Up [facility] 100 [facility] Cardiology 100 [facility] [address] [place] [address] Mabel Onofre NP 100 [facility] [address] [place] [address] Procedures * Due to [place] state law, this organization might not be sharing negative HIV tests. Procedure Name Priority Date/Time Associated Diagnosis Comments FL C-ARM WITH IMAGES NONREPORTABLE Routine 07/31/2024 10:49 AM EDT Pain CHG FLUOROSCOPIC GUIDANCE NEEDLE PLACEMENT ADD ON Routine 07/31/2024 10:15 AM EDT Left shoulder pain, unspecified chronicity MT ARTHROCENTESIS ASPIR&/INJ MAJOR JT/BURSA W/O US Routine [...] to Health Maintenance Results * Due to [place] state law, this organization might not be sharing negative HIV tests. * FL C-Arm with Images NONREPORTABLE (07/31/2024 10:49 AM EDT) Narrative IMAGING - 07/31/2024 12:28 PM EDT This procedure does not contain a result. Please see the surgeon's note for official report. us Sonny Reed MD IMG FLUOROSCOPY PROCEDURES Fin al Result IMAGING * MT ARTHROCENTESIS ASPIR&/INJ MAJOR JT/BURSA W/O US, CHG [...] Patient's understanding of procedure matches consent: Yes [place] Protocol: ? Procedure consent matches procedure scheduled: [...] obtain the completed interpretation. ? Workstation ID: [id number] Narrative 07/22/2024 1:20 PM EST COMPARISON: ??There are no prior studies available for comparison at this time. ?? FINDINGS AND Resulting Agency Comment [id number] Procedure Note Rupali Barrios MD - 07/22/2024 [...] possible to obtain thecompleted interpretation. Workstation ID: [id number] us Jeffery LION IMG XR PROCEDURES Final Result * N-terminal ProBrain Natriuretic Peptide - [facility] & MEM/UNV/Nicole Only (07/19/2024 10:59 AM EST) Only the most recent of7 resultswithin the time period is included. Pro-B-Type Natriuretic Peptide 281 <=900 pg/mL 07/19/2024 11:43 AM EST [facility] Comment: RULE IN CHF >/= 450 [...] EST 07/19/2024 11:17 AM EST Magy Sawyer SIGNAL TOWER DIRECTOR LAB BLOOD ORDERABLES Final Res ult Performing Organization Address City/[facility]/ZIP Co de Phone Number [facility] [address] [place] [address], [place] [phone] * Urine Culture, Routine (07/19/2024 10:59 AM EST) Only the most recent of2 resultswithin the time period is included. Pathologist [facility] Urine Culture <10,000 CFU/mL mixed gram positives; multiple organisms are present, suggestive of contamination at the time of collection. [place] [facility] 07/20/2024 8:13 AM EST [facility] Urine Urine specimen collection, clean catch / Unknown Non-Blood Collection / Unknown 07/19/2024 10:59 AM EST 07/19/2024 11:16 AM EST Bijal Fox SIGNAL TOWER DIRECTOR LAB MICROBIOLOGY - GENERAL ORDJim CALHOUN Final Result Performing Organization Address City/[facility]/ZIP Co de Phone Number [facility] [address] [place] [address], [place] [phone] * (ABNORMAL) Basic Metabolic Panel (07/19/2024 10:59 AM EST) Only the most recent of12 resultswithin the time period is included. NA 142 136 - 145 mmol/L 07/19/2024 11:41 AM EST [facility] K 4.0 3.5 - 5.1 mmol/L 07/19/2024 11:41 AM EST [facility] Cl 103 98 - 109 mmol/L 07/19/2024 11:41 AM EST [facility] CO2 29 22 - 32 mmol/L 07/19/2024 11:41 AM EST [facility] BUN 22 8 - 23 mg/dL 07/19/2024 11:41 AM EST [facility] Creatinine 1.42(H) 0.50 - 1.12 mg/dL 07/19/2024 11:41 AM EST [facility] Glucose 108(H) 60 - 99 mg/dL 07/19/2024 11:41 AM EST [facility] Calcium 8.9 8.4 - 10.4 mg/dL 07/19/2024 11:41 AM EST [facility] Anion Gap 14 >=0 07/19/2024 11:41 AM EST [facility] eGFR 39(L) >=60 mL/min/1. 73m2 07/19/2024 11:41 AM EST [facility] Comment:The estimated glomer ular filtration rate [...] 07/19/2024 11:17 AM EST us Magy Sawyer SIGNAL TOWER DIRECTOR LAB BLOOD ORDERABLES Final Res ult [facility] [address] [facility] [address] [place] [address], * X-Ray Chest 2 Views (07/16/2024 11:04 [...] obtain the completed interpretation. ? Workstation ID: [id number] Narrative 07/17/2024 8:14 AM EST COMPARISON: ??06/22/2024 FINDINGS AND Resulting Agency Comment [id number] Procedure Note Calvin Katz MD - 07/17/2024 COMPARISON: 06/22/2024 FINDINGS AND IMPRESSION: No change. Heart normal. Lungs and pleural spaces clear. Cervical spinefusion hardware noted. If this radiology report contains a blank impression section, it is anincomplete radiology report. Please contact the interpreting radiologistor applicable radiology division as soon as possible to obtain thecompleted interpretation. Workstation ID: [id number] Magy Sawyer NP IMG XR PROCEDURES Final Result * TSH (07/13/2024 10:20 AM EST) Only the most recent of3 resultswithin the time period is included. TSH 3.750 0.270 - 4.200 uIU/mL 07/13/2024 11:15 AM EST [facility] Comment: Females: 1st trimester ? 0.150-4.000 ??IU/mL 2nd trimester ?? 0.310-4.170 ?IU/mL 3rd trimester ?0.380-4.150 ?IU/mL Blood Structure of peripheral vein / Unknown Venipuncture / Unknown 07/13/2024 10:20 AM EST 07/13/2024 10:29 AM EST Magy Sawyer NP LAB BLOOD ORDERABLES Final Res ult Performing Organization Address [facility] de Phone Number [facility] [address] [address], * T4, Free (07/13/2024 10:20 AM EST) Free T4 1.24 0.80 - 1.80 ng/dL 07/13/2024 11:15 AM EST [facility] Comment: Females: (ng/dL) First Trimester ? [...] ORDERABLES Final Res ult Performing Organization Address [facility] Co de Phone Number [facility] [address] [address], [place] [phone] * Lipid panel (07/13/2024 10:20 AM EST) Cholesterol 259 mg/dL 07/13/2024 11:15 AM EST [facility] Comment: DESIRABLE: <200 mg/dL BORDERLINE HIGH: 200-239 mg/dL HIGH: >239 mg/dL Triglycerides 123 mg/dL 07/13/2024 11:15 AM EST [facility] Comment: NORMAL: <150 mg/dL BORDERLINE HIGH: 150-199 mg/dL HIGH: 200-499 mg/dL VERY HIGH >499 mg/dL Cholesterol, HDL 72 mg/dL 07/13/19 11:15 AM EST [facility] Comment: DESIRABLE: >60 mg/dL BORDERLINE: 40-59 mg/dL UNDESIRABLE: <40 mg/dL LDL Cholesterol 162 mg/dL 11:15 AM EST [facility] Comment: OPTIMAL: <100 mg/dL NEAR OPTIMAL: <130 mg/dL BORDERLINE HIGH: 130-159 mg/dL HIGH: 160-189 mg/dL VERY HIGH: >189 mg/dL VLDL 24.6 mg/dL 07/13/2024 11:15 AM EST [facility] Cholesterol/HDL Ratio 3.6 07/13/2024 11:15 AM EST [facility] Blood Structure of peripheral vein / Unknown Venipuncture / Unknown 07/13/2024 10:20 AM EST 07/13/2024 10:29 AM EST us Magy Sawyer SIGNAL TOWER DIRECTOR LAB BLOOD ORDERABLES Final Res ult [facility] [address] [facility] [address] [place] [address], [place] [phone] * (ABNORMAL) Comprehensive Metabolic Panel (07/13/2024 10:20 AM EST) Only the most recent of3 resultswithin the time period is included. NA 142 136 - 145 mmol/L 07/13/2024 11:15 AM EST [facility] K 4.6 3.5 - 5.1 mmol/L 07/13/2024 11:15 AM EST [facility] Cl 104 98 - 109 mmol/L 07/13/2024 11:15 AM EST [facility] CO2 28 22 - 32 mmol/L 07/13/2024 11:15 AM EST [facility] Anion Gap 15 >=0 07/13/2024 11:15 AM EST [facility] Glucose 94 60 - 99 mg/dL 07/13/2024 11:15 AM EST [facility] Creatinine 1.40(H) 0.50 - 1.12 mg/dL 07/13/2024 11:15 AM [facility] Calcium 9.4 8.4 - 10.4 mg/dL 07/13/2024 11:15 AM [facility] Total Protein 6.4(L) 6.6 - 8.7 g/dL 07/13/2024 11:15 AM [facility] Albumin 3.7 3.5 - 5.0 g/dL 07/13/2024 11:15 AM [facility] Bilirubin, Total 0.4 0.2 - 1.2 mg/dL 07/13/2024 11:15 AM [facility] Alkaline Phosphatase 113 40 - 129 U/L 07/13/2024 11:15 AM [facility] AST 25 0 - 33 U/L 07/13/2024 11:15 AM [facility] ALT 33 <=33 U/L 07/13/2024 11:15 AM [facility] BUN 20 8 - 23 mg/dL 07/13/2024 11:15 AM [facility] eGFR 40(L) >=60 mL/min/1. 73m2 07/13/2024 11:15 AM [facility] Comment:The [...] 2.1 - 4.2 g/dL 07/13/2024 11:15 AM [facility] A/G Ratio 1.4(L) 1.5 - 3.0 07/13/2024 11:15 AM [facility] Blood Structure of peripheral vein / Unknown Venipuncture / Unknown 07/13/2024 10:20 AM EST 07/13/2024 10:29 AM EST Magy Sawyer NP LAB BLOOD ORDERABLES Final Res ult Performing Organization Address [facility] de Phone Number [facility] [address] [place] [phone], * (ABNORMAL) Microscopic Urinalysis Only (07/02/2024 9:17 AM EST) RBC, Urine 5-10(A) None Seen, 0-2 /HPF 07/02/2024 10:07 AM EST [facility] WBC, Urine 0-2 None Seen, 0-2 /HPF 07/02/2024 10:07 AM EST [facility] Squamous Epithelial Cells, Urine 0-2 /HPF 07/02/2024 10:07 AM EST [facility] Bacteria, Urine Occasional (A) None Seen /HPF 07/02/2024 10:07 AM EST [facility] Urine Urine specimen collection, clean catch / Unknown Non-Blood Collection / Unknown 07/02/2024 9:17 AM EST 07/02/2024 9:36 AM EST John Hendricks MD LAB URINE ORDERABLES Final Resul t Performing Organization Address [facility] Co de Phone Number [facility] [address] [place] [address], [place] [phone] * (ABNORMAL) Urinalysis W/Reflex to Microscopic (No Culture) (07/02/2024 9:17 AM EST) Color, Urine Yellow Yellow 07/02/2024 9:44 AM EST [facility] Clarity, Urine Clear Clear 07/02/2024 9:44 AM EST [facility] Specific [place], Urine 1.015 1.005 - 1.030 07/02/2024 9:44 AM EST [facility] pH, Urine 5.5 5.0 - 8.0 07/02/2024 9:44 AM EST [facility] Protein, Urine Negative Negative mg/dL 07/02/2024 9:44 AM EST [facility] Glucose, Urine Negative Negative mg/dL 07/02/2024 9:44 AM EST [facility] Ketones, Urine Negative Negative mg/dL 07/02/2024 9:44 AM EST [facility] Bilirubin, Urine Negative Negative 07/02/2024 9:44 AM EST [facility] Blood, Urine Small(A) Negative 07/02/2024 9:44 AM EST [facility] Nitrite, Urine Negative Negative 07/02/2024 9:44 AM EST [facility] Urobilinogen, Urine 0.2 0.2 - 1.0 E.U./dL 07/02/2024 9:44 AM EST [facility] Leukocyte Esterase, Urine Small(A) Negative 07/02/2024 9:44 AM EST [facility] Urine Urine specimen collection, clean catch / Unknown Non-Blood Collection / Unknown 07/02/2024 9:17 AM EST 07/02/2024 9:36 AM EST us John Hendricks MD LAB URINE ORDERABLES Final Resul t Performing Organization Address City/State/[facility] Co de Phone Number [facility] [address] [place] [address], * (ABNORMAL) SPEP (Protein Electrophoresis w/Reflex to Immunofixation) (07/02/2024 9:17 AM EST) Protein, Total 5.8(L) 6.1 - 8.1 g/dL 07/04/2024 8:59 AM EST [facility] Albumin 3.6(L) 3.8 - 4.8 g/dL 07/04/2024 8:59 AM EST [facility] Alpha 1 Globulin 0.3 0.2 - 0.3 [...] ORDERABLES Final Resul t HILARY DAVID [address] [facility] 3[address], [place] [address], [place] [phone] * Hemoglobin and Hematocrit (07/02/2024 9:17 AM EST) Hemoglobin 12.0 11.7 - 15.5 g/dL 07/02/2024 9:38 AM EST [facility] Hematocrit 37.1 35.7 - 45.8 % 07/02/2024 9:38 AM EST [facility] Blood Structure of peripheral vein / Unknown Venipuncture / Unknown 07/02/2024 9:17 AM EST 07/02/2024 9:29 AM EST us John Hendricks MD LAB BLOOD ORDERABLES Final Resul t Performing Organization Address City/[facility]/ZIP Co de Phone Number [facility] [address] [address], [place] [phone] * Microalbumin, Random Urine with Creatinine (07/02/2024 9:17 AM EST) Creatinine, Urine 55 mg/dL 07/02/2024 2:41 PM EST [facility] Microalbumin, Urine 4 <=20 mg/L 07/02/2024 2:41 PM EST [facility] Microalb/Creat Ratio, Random Urine 7.3 1.3 - 30.0 mg/g 07/02/2024 2:41 PM EST [facility] Urine Voided urine specimen / Unknown Non-Blood Collection / Unknown 07/02/2024 9:17 AM EST 07/02/2024 9:36 AM EST us John Hendricks MD LAB URINE ORDERABLES Final Resul t Performing Organization Address [facility] Co de Phone Number [facility] [address] [address], [place] [phone] * Protein, Random Urine with Creatinine (07/02/2024 9:17 AM EST) Protein, Urine 6 mg/dL 07/02/2024 2:41 PM EST [facility] Creatinine, Urine 55 mg/dL 07/02/2024 2:41 PM EST [facility] Protein/Creati nine Ratio 109 <200 mg/gmCr 07/02/2024 2:41 PM EST [facility] Urine Voided urine specimen / Unknown Non-Blood Collection / Unknown 07/02/2024 9:17 AM EST 07/02/2024 9:36 AM EST us John Hendricks MD LAB URINE ORDERABLES Final Resul t Performing Organization Address City/[facility]/ZIP Co de Phone Number [facility] [address] [address], [place] [phone] * (ABNORMAL) Vitamin D, 25-Hydroxy, Total, Immunoassay (07/02/2024 9:17 AM EST) Only the most recent of2 resultswithin the time period is included. Vitamin D 25-OH 22.50(L) 30.00 - 80.00 ng/mL 07/02/2024 11:24 AM EST [facility] Blood Structure of peripheral vein / Unknown Venipuncture / Unknown 07/02/2024 9:17 AM EST 07/02/2024 9:29 AM EST us John Hendricks MD LAB BLOOD ORDERABLES Final Resul t Performing Organization Address [facility] de Phone Number [address] [address], * (ABNORMAL) PTH, Intact (without Calcium) (07/02/2024 9:17 AM EST) [facility] Parathyroid Hormone, Intact 226.0(H) 14.5 - 87.1 pg/mL 07/02/2024 11:19 AM EST [facility] Comment: This test was performed using [...] ORDERABLES Final Resul t Performing Organization Address [facility] Co de Phone Number [facility] [address] [place] [address], * Magnesium (07/02/2024 9:17 AM EST) MG 1.9 1.5 - 2.5 mg/dL 07/02/2024 10:01 AM EST [facility] Blood Structure of peripheral vein / Unknown Venipuncture / Unknown 07/02/2024 9:17 AM EST 07/02/2024 9:29 AM EST John Hendricks MD LAB BLOOD ORDERABLES Final Resul t [facility] [address] [place] [address] [address] [place] [address], * (ABNORMAL) Renal Function Panel (07/02/2024 9:17 AM EST) NA 138 136 - 145 mmol/L 07/02/2024 10:02 AM EST [facility] K 4.4 3.5 - 5.1 mmol/L 07/02/2024 10:02 AM EST [facility] Comment:ALL DELTAS REVIEWED Cl 101 98 - 109 mmol/L 07/02/2024 10:02 AM EST [facility] CO2 26 22 - 32 mmol/L 07/02/2024 10:02 AM EST [facility] Anion Gap 15 >=0 07/02/2024 10:02 AM EST [facility] Glucose 115(H) 60 - 99 mg/dL 07/02/2024 10:02 AM [facility] BUN 37(H) 8 - 23 mg/dL 07/02/2024 10:02 AM EST [facility] Creatinine 1.47(H) 0.50 - 1.12 mg/dL 07/02/2024 10:02 AM EST [facility] Calcium 8.8 8.4 - 10.4 mg/dL 07/02/2024 10:02 AM EST [facility] Phosphorus 3.6 2.5 - 4.5 mg/dL 07/02/2024 10:02 AM [facility] Albumin 3.8 3.5 - 5.0 g/dL 07/02/2024 10:02 AM EST [facility] eGFR 38(L) >=60 mL/min/1. 73m2 07/02/2024 10:02 AM EST [facility] Comment:The estimated glomer ular filtration rate [...] ORDERABLES Final Resul t Performing Organization Address City/State/[facility] Co de Phone Number [facility] [address] [place] [phone], * X-Ray Abdomen 1 View (06/26/2024 12:39 [...] obtain the completed interpretation. ? Workstation ID: [id number] Narrative 06/26/2024 2:05 PM EST EXAMINATION: ??XR ABDOMEN 1 VW INDICATION: RLQ abdominal pain, constipation COMPARISONS: None Resulting Agency Comment [id number] Procedure Note Calvin Katz MD - 06/26/2024 [...] possible to obtain thecompleted interpretation. Workstation ID: [id number] us Tia Oh SIGNAL TOWER DIRECTOR IMG XR PROCEDURES Final Result * (ABNORMAL) CBC (06/26/2024 6:22 AM EST) Only the most recent of5 resultswithin the time period is included. WBC 15.0(H) 4.8 - 10.8 10*3/uL 06/26/2024 6:42 AM [facility] RBC 4.51 4.20 - 5.40 10*6/uL 06/26/2024 6:42 AM [facility] Hemoglobin 13.1 11.7 - 15.5 g/dL 06/26/2024 6:42 AM [facility] Hematocrit 40.5 35.7 - 45.8 % 06/26/2024 6:42 AM [facility] MCV 89.8 81.0 - 99.0 fL 06/26/2024 6:42 AM [facility] MCH 29.0 26.0 - 34.0 pg 06/26/2024 6:42 AM [facility] MCHC 32.3 31.0 - 36.0 g/dL 06/26/2024 6:42 AM [facility] RDW 13.2 12.0 - 15.0 % 06/26/2024 6:42 AM [facility] Platelets 220 140 - 440 10*3/uL 06/26/2024 6:42 AM [facility] MPV 9.4 9.4 - 12.3 fL 06/26/2024 6:42 AM [facility] RDW Standard Deviation 43.5 36.4 - 46.3 fL 06/26/2024 6:42 AM EST [facility] Blood Structure of peripheral vein / Unknown Venipuncture / Unknown 06/26/2024 6:22 AM EST 06/26/2024 6:39 AM EST Olivia Arteaga NP LAB BLOOD ORDERABLES Final Result [address] [address], [place] [phone] * ECG 12 lead (06/24/2024 9:50 AM EST) Only the most recent of4 resultswithin the time period is included. Ventricular Rate EKG 73 BPM MUSE EKG Atrial Rate 73 BPM MUSE EKG MT Interval 228 ms MUSE EKG QRS Interval 128 ms MUSE EKG QT Interval 384 ms MUSE EKG QTC Interval 423 ms MUSE EKG P [place] 65 degrees MUSE EKG R [place] 41 degrees MUSE EKG T Wave [place] 61 degrees MUSE EKG 06/24/2024 9:50 AM EST 06/24/2024 5:36 PM EST Impressions MUSE EKG - 06/24/2024 5:36 PM EST Sinus rhythm with 1st degree AV block with occasional premature ventricular complexes Nonspecific intraventricular block When compared with ECG of 21-JUN-2024 07:26, No significant change was found Confirmed by Stephanie Hampton ([id number]) on 06/24/2024 5:36:28 PM Olivia Arteaga SIGNAL TOWER DIRECTOR ECG ORDERABLES Final Resul t MUSE EKG * (ABNORMAL) Potassium (06/23/2024 10:05 AM EST) K 5.6(H) 3.5 - 5.1 mmol/L 06/23/2024 10:58 AM EST [facility] Comment:REVIEWED Blood Structure of peripheral vein / Unknown Venipuncture / Unknown 06/23/2024 10:05 AM EST 06/23/2024 10:36 AM EST Narrative [facility] - 06/23/2024 10:58 AM EST Please check heparinized potassium, TY. Sydney David NP LAB BLOOD ORDERABLES Final Result Performing Organization Address [facility]/ZIP Co de Phone Number [facility] [address] [address], [place] [phone] * Lavender Top (06/22/2024 6:53 AM EST) Only the most recent of2 resultswithin the time period is included. Extra Tube Hold for add-ons. 06/22/2024 11:05 AM EST [facility] Comment:Auto resulted. Blood Structure of peripheral vein / Unknown 06/22/2024 6:53 AM EST 06/22/2024 6:53 AM EST Mj Mendenhall MD LAB BLOOD ORDERABLES Final R esult Performing Organization Address City/[facility]/ZIP Co de Phone Number [facility] [address] [address], [place] [phone] * Troponin T, High Sensitivity (06/20/2024 10:19 AM EST) Only the most recent of3 resultswithin the time period is included. Troponin T High Sensitivity 14 6 - 14 ng/L 06/20/2024 11:08 AM EST [facility] Comment: Bt-Qckelbcn-V level of 52 ng/L or higher at [...] be evaluated in line with the 4th [place] Definition of AMI. Troponin baseline and serial [...] ORDERABLES Final R esult Performing Organization Address City/[facility]/ZIP Co de Phone Number [facility] [address] [address], [place] [phone] * (ABNORMAL) Respiratory Culture (06/20/2024 7:37 AM EST) Respiratory Culture Moderate Rayna albicans(A) [facility]UAL 06/22/2024 11:29 AM EST [facility] Gram Stain Result <25 per LPF White Blood Cells Seen 06/22/2024 11:29 AM EST [facility] Gram Stain Result <10 per LPF Epithelial Cells 06/22/2024 11:29 AM EST [facility] Gram Stain Result Rare Gram Positive Cocci in pairs 06/22/2024 11:29 AM EST [facility] Sputum Sputum / Unknown Non-Blood Collection / Unknown 06/20/2024 7:37 AM EST 06/20/2024 7:54 AM EST Narrative [facility] - 06/22/2024 11:29 AM EST Many normal respiratory beena present. Rosanna Oh SIGNAL TOWER DIRECTOR LAB MICROBIOLOGY - GENERAL ORDER RHINA Final Result Performing Organization Address City/[facility]/ZIP Co de Phone Number [facility] [address] [address], [place] [phone] * Streptococcus Pneumoniae Antigen Urine (06/18/2024 6:44 PM EST) Streptococcus pneumoniae Antigen, Urine Negative Negative [facility] MANUAL 06/19/2024 8:53 AM EST [facility] Comment: INTERPRETATION: Presumptive negative for pneumococcal [...] MD LAB URINE ORDERABLES Final R esult [facility] [address] [facility] [address] [place] [address], [place] [phone] * Legionella Antigen, Urine (06/18/2024 6:44 PM EST) Legionella pneumophila Urine Ag Negative Negative [facility] MANUAL 06/19/2024 8:53 AM EST [facility] Comment: INTERPRETATION: Presumptive negative for Legionella [...] 6:44 PM EST 06/18/2024 7:15 PM EST [facility] - 06/19/2024 8:53 AM EST This [...] MD LAB URINE ORDERABLES Final R esult [facility] [address] [place] [address], [place] [phone] * XR Chest Portable 1 View (06/18/2024 [...] obtain the completed interpretation. ? Workstation ID: [id number] Narrative 06/20/2024 10:17 AM EST EXAMINATION: XR CHEST PORTABLE 1 VIEW COMPARISON: CT chest pulmonary angiogram 06/15/2024 and other priors. FINDINGS: Lines/Tubes/Devices: None. Lungs: Redemonstrated left basilar consolidation. Pleura: No pleural effusions or pneumothorax. Heart/Mediastinum: Cardiomediastinal silhouette is similar to prior. Bones/Soft tissues: No acute osseous abnormality. Resulting Agency Comment [id number] Procedure Note Apolonia Nolen MD - 06/20/2024 [...] possible to obtain thecompleted interpretation. Workstation ID: [id number] us Tia Oh SIGNAL TOWER DIRECTOR IMG XR PROCEDURES Final Result * (ABNORMAL) CBC Auto Differential (06/17/2024 7:03 AM EST) Only the most recent of3 resultswithin the time period is included. WBC 11.6(H) 4.8 - 10.8 10*3/uL 06/17/2024 7:30 AM EST [facility] RBC 3.94(L) 4.20 - 5.40 10*6/uL 06/17/2024 7:30 AM EST [facility] Hemoglobin 11.7 11.7 - 15.5 g/dL 06/17/2024 7:30 AM [facility] Hematocrit 35.4(L) 35.7 - 45.8 % 06/17/2024 7:30 AM [facility] MCV 89.8 81.0 - 99.0 fL 06/17/2024 7:30 AM EST [facility] MCH 29.7 26.0 - 34.0 pg 06/17/2024 7:30 AM [facility] MCHC 33.1 31.0 - 36.0 g/dL 06/17/2024 7:30 AM [facility] RDW 12.9 12.0 - 15.0 % 06/17/2024 7:30 AM [facility] RDW Standard Deviation 42.6 36.4 - 46.3 fL 06/17/2024 7:30 AM [facility] Platelets 257 140 - 440 10*3/uL 06/17/2024 7:30 AM [facility] Comment:REV IEWED MPV 10.0 9.4 - 12.3 fL 06/17/2024 7:30 AM [facility] Neutrophil % 81.6(H) 50.0 - 75.0 % 06/17/2024 7:30 AM [facility] Immature Grans % 0.8 0.0 - 0.9 % 06/17/2024 7:30 AM [facility] Lymphocyte % 11.8(L) 20.0 - 44.0 % 06/17/2024 7:30 AM [facility] Monocyte % 5.6 0.0 - 14.0 % 06/17/2024 7:30 AM EST [facility] Eosinophil % 0.0 0.0 - 5.0 % 06/17/2024 7:30 AM EST [facility] Basophil % 0.2 0.0 - 2.0 % 06/17/2024 7:30 AM EST [facility] Neutrophil # 9.48(H) 1.80 - 7.70 10*3/uL 06/17/2024 7:30 AM EST [facility] Immature Grans # 0.09(H) 0.00 - 0.03 10*3/uL 06/17/2024 7:30 AM EST [facility] Lymphocyte # 1.40 1.00 - 4.75 10*3/uL 06/17/2024 7:30 AM EST [facility] Monocyte # 0.70(H) 0.00 - 0.60 10*3/uL 06/17/2024 7:30 AM EST [facility] Eosinophil # <0.03 0.00 - 0.80 10*3/uL 06/17/2024 7:30 AM EST [facility] Basophil # <0.03 0.00 - 0.20 10*3/uL 06/17/2024 7:30 AM EST [facility] nRBC % 0.0 0 - 0 /100 WBCs 06/17/2024 7:30 AM EST [facility] nRBC # <0.01 0.00 - 0.13 10*3/uL 06/17/2024 7:30 AM EST [facility] Blood Structure of peripheral vein / Unknown Venipuncture / Unknown 06/17/2024 7:03 AM EST 06/17/2024 7:22 AM EST us Mj Mendenhall MD LAB BLOOD ORDERABLES Final R esult [facility] [address] [place] [address], * Light Green Top (06/16/2024 7:54 AM EST) Pathologist [facility] Extra Tube Hold for add-ons. 06/16/2024 12:05 PM EST [facility] Comment:Auto resulted. Blood Structure of peripheral vein / Unknown 06/16/2024 7:54 AM EST 06/16/2024 7:54 AM EST Mj Mendenhall MD LAB BLOOD ORDERABLES Final R esult [facility] [address] [place] [address], * Mycoplasma pneumoniae Antibodies, IgG/IgM (06/16/2024 7:42 AM EST) [facility] M. pneumoniae Ab, IgG <=0.90 <=0.90 06/19/2024 10:04 PM EST simfy JUAN (DERICK) Comment: ? Reference Range: ? [...] 72 <770 U/mL 06/19/2024 10:04 PM EST simfy JUAN (SEPULVEDA) Comment: Reference Range: ?<770 U/ml [...] BLOOD ORDERABLES Final R esult HILARY DAVID [address] [place] [address] 3[address] Floor, [place] [address], [facility] [employer] [address] [place] [address], [place] * CT Chest PE (06/15/2024 11:49 [...] obtain the completed interpretation. ? Workstation ID: [id number] Up-to-date CT equipment and radiation dose reduction [...] possible to obtain thecompleted interpretation. Workstation ID: [id number] Up-to-date CT equipment and radiation dose reduction techniques wereemployed. CTDIvol: .8 - 21.4 mGy. DLP: 802 mGy-cm. us Kevin Newsome MD IMG CT PROCEDURES Final Result * Blood Culture (06/15/2024 10:17 PM EST) Only the most recent of2 resultswithin the time period is included. Blood Culture No growth after 5 days 06/20/2024 11:05 PM EST [facility] Blood Structure of peripheral vein / Unknown Venipuncture / Unknown 06/15/2024 10:17 PM EST 06/15/2024 10:39 PM EST us Kevin Newsome MD LAB MICROBIOLOGY - GENERAL ORDER RHINA Final Result Performing Organization Address City/[facility] Co de Phone Number [address] [address], [place] [phone] * Lactic Acid, Plasma (06/15/2024 10:17 PM EST) Pathologist [facility] Lactic Acid 0.7 0.5 - 2.2 mmol/L 06/15/2024 11:02 PM EST [facility] Blood Structure of peripheral vein / Unknown Venipuncture / Unknown 06/15/2024 10:17 PM EST 06/15/2024 10:31 PM EST us Kevin Newsome MD LAB BLOOD ORDERABLES Final Resul t Performing Organization Address [facility] Co de Phone Number [address] [address], [place] [phone] * (ABNORMAL) Blood gas, venous (06/15/2024 10:17 PM EST) pH, Venous 7.24(LL) 7.35 - 7.45 06/16/2024 2:54 AM EST [facility] RT pCO2, Venous 57.0 mm[Hg] 06/16/2024 2:54 AM EST [facility] RT pO2, Keegan 138.0 mm[Hg] 06/16/2024 2:54 AM EST [facility] RT HCO3, Venous 22 mmol/L 06/16/2024 2:54 AM EST [facility] O2 Sat, Venous 97.8 % 06/16/2024 2:54 AM EST [facility] RT Base Excess, Keegan -3.6 mmol/L 06/16/2024 2:54 AM EST [facility] Blood Structure of peripheral vein / Unknown Venipuncture / Unknown 06/15/2024 10:17 PM EST 06/16/2024 2:52 AM EST us Kevin Newsome MD LAB BLOOD ORDERABLES Final Resul t [facility] RT [address] [place] [address], * COVID-19, Flu A/B & RSV RNA PCR, Symptomatic (06/15/2024 7:58 PM EST) PCR, SARS CoV-2 RNA Not Detected Not Detected [employer]EXP[employer] 06/15/2024 8:48 PM EST [facility] Flu A RNA PCR Not Detected Not Detected CEPHEID GENEXPERT 06/15/2024 8:48 PM EST [facility] Flu B RNA PCR Not Detected Not Detected [employer]PHEID [employer]EXPERT 06/15/2024 8:48 PM EST [facility] RSV RNA PCR Not Detected Not Detected CEPHEID GENEXPERT 06/15/2024 8:48 PM EST [facility] Comment: Limitations: This RSV test [...] PM EST 06/15/2024 8:09 PM EST Narrative [facility] - 06/15/2024 8:48 PM EST Methodology: The DocDep GeneXpert CoV-2/Flu/RSV plus assay is For Use Under an Emergency Use Authorization (EUA) Only with [employer]. The CoV-2/Flu/RSV plus assay is a [...] FLUIDS AND STOOLS O RDERABLES Final Result [facility] [address] [place] [address], [place] [phone] * HEART & VASCULAR - SCANNED (06/15/2024) [...] Estimated 70 % EF 2D 70 % [facility] RV TISSUE DOPPLER S' 11.0 cm/s [...] 0.49 mg/L FEU 06/03/2024 4:45 PM EST [facility] Comment:A D-DIMER VALUE OF < 0.50 ug/FEU/mL HAS A STRONG NEGATIVE PREDICTIVE VALUE FOR EXCLUSION OF PULMONARY EMBOLIC AND DEEP VEIN THROMBOSIS. CLINICAL CORRELATION IS INDICATED. Blood Structure of peripheral vein / Unknown Venipuncture / Unknown 06/03/2024 4:10 PM EST 06/03/2024 4:15 PM EST Calvin Fontenot MD LAB BLOOD ORDERABLES Final R esult [facility] [address] [place] [address], [place] [phone] * [place] Lower Extremity Venous Left (06/03/2024 [...] obtain the completed interpretation. ? Workstation ID: [id number] Narrative 06/03/2024 3:48 PM EST EXAMINATION: US [...] identified behind the knee Resulting Agency Comment [id number] Procedure Note Sonny Valdivia MD - 06/03/2024 [...] possible to obtain thecompleted interpretation. Workstation ID: [id number] Calvin Fontenot MD IMG US PROCEDURES Final Resu lt * Rapid COVID-19, FLU A, FLU B & RSV RNA PCR, Symptomatic (ED ONLY) (06/03/2024 3:02 PM EST) Pathologist [facility] PCR, SARS CoV-2 RNA Not Detected Not Detected CEPHE[facility] GENEXPERT 06/03/2024 3:48 PM EST [facility] Flu A RNA PCR Not Detected Not Detected CEPHEID GENEXPERT 06/03/2024 3:48 PM EST [facility] Flu B RNA PCR Not Detected Not Detected CEPID GENEXPERT 06/03/2024 3:48 PM EST [facility] RSV RNA PCR Not Detected Not Detected CEPHEID GENEXPERT 06/03/2024 3:48 PM EST [facility] Comment: Limitations: This RSV test [...] 3:02 PM EST 06/03/2024 3:06 PM EST [facility] - 06/03/2024 3:48 PM EST Methodology: The DocDep GeneXpert CoV-2/Flu/RSV plus assay is For Use Under an Emergency Use Authorization (EUA) Only with [employer]. The CoV-2/Flu/RSV plus assay is a [...] FLUIDS AND STOOLS O RDERABLES Final Result [facility] [address] [facility] [address] [address] [place] [address], [place] [phone] * CT Lumbar Spine WO Contrast (06/02/2024 [...] obtain the completed interpretation. ? Workstation ID: [id number] Up-to-date CT equipment and radiation dose reduction techniques were employed. CTDIvol: 22.2 - 54.3 mGy. DLP: 3111 mGy-cm. ??The following accession numbers are related to this dose report [id number]: [id number] Narrative 06/02/2024 7:00 PM EST COMPARISON: None available. FINDINGS: There is no evidence of acute compression fracture. ??Alignment is maintained. ?? 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 ??Severe degenerative changes are seen most severe at L3-4. ??Paraspinous soft tissues are unremarkable. ??Incidental 1.5 cm splenic artery aneurysm Resulting Agency Comment [id number] Procedure Note Luis Mayfield MD - 06/02/2024 [...] possible to obtain thecompleted interpretation. Workstation ID: [id number] Up-to-date CT equipment and radiation dose reduction techniques wereemployed. CTDIvol: 22.2 - 54.3 mGy. DLP: 3111 mGy-cm. The followingaccession numbers are related to this dose report [id number]: [id number] Govind Glez MD IMG CT PROCEDURES Final [...] obtain the completed interpretation. ? Workstation ID: [id number] Up-to-date CT equipment and radiation dose reduction techniques were employed. CTDIvol: 22.2 - 54.3 mGy. DLP: 3111 mGy-cm. ??The following accession numbers are related to this dose report [id number]: [id number] Up-to-date CT equipment and radiation dose reduction techniques were employed. CTDIvol: 22.2 - 54.3 mGy. DLP: 3111 mGy-cm. ??The following accession numbers are related to this dose report [id number]: [id number] Narrative 06/02/2024 6:31 PM EST COMPARISON: 04/28/2016. [...] are within normal limits. Resulting Agency Comment [id number] Procedure Note Luis Mayfield MD - 06/02/2024 [...] possible to obtain thecompleted interpretation. Workstation ID: [id number] Up-to-date CT equipment and radiation dose reduction techniques wereemployed. CTDIvol: 22.2 - 54.3 mGy. DLP: 3111 mGy-cm. The followingaccession numbers are related to this dose report [id number]: [id number] Up-to-date CT equipment and radiation dose reduction techniques wereemployed. CTDIvol: 22.2 - 54.3 mGy. DLP: 3111 mGy-cm. The followingaccession numbers are related to this dose report [id number]: [id number] Govind Glez MD IM CT PROCEDURES Final [...] obtain the completed interpretation. ? Workstation ID: [id number] Up-to-date CT equipment and radiation dose reduction techniques were employed. CTDIvol: 22.2 - 54.3 mGy. DLP: 3111 mGy-cm. ??The following accession numbers are related to this dose report [id number]: [id number] Up-to-date CT equipment and radiation dose reduction techniques were employed. CTDIvol: 22.2 - 54.3 mGy. DLP: 3111 mGy-cm. ??The following accession numbers are related to this dose report [id number]: [id number] Narrative 06/02/2024 6:31 PM EST COMPARISON: 04/28/2016. [...] are within normal limits. Resulting Agency Comment [id number] Procedure Note Luis Mayfield MD - 06/02/2024 [...] possible to obtain thecompleted interpretation. Workstation ID: [id number] Up-to-date CT equipment and radiation dose reduction techniques wereemployed. CTDIvol: 22.2 - 54.3 mGy. DLP: 3111 mGy-cm. The followingaccession numbers are related to this dose report [id number]: [id number] Up-to-date CT equipment and radiation dose reduction techniques wereemployed. CTDIvol: 22.2 - 54.3 mGy. DLP: 3111 mGy-cm. The followingaccession numbers are related to this dose report [id number]: [id number] Govind Glez MD IMG CT PROCEDURES Final [...] were monitored continuously. The CFQ-160L Olympusserial # [id number] was introduced through the anus and advanced [...] Recently Relevant to Health Maintenance Insurance [facility] Advance Directives Documents on File Type Date Recorded Patient Reprographics Associate Expl anation Advance Directive 08/06/2013 12:00 AM [...] 1:19 AM 06/04/2024 5:36 PM Care Teams Membership Sales Advisor Relationship Specialty Start Date End Date Bijal Fox SIGNAL TOWER DIRECTOR [address] [place] [id number] PCP - General Family Medicine 05/30/24
== END 2024-07-31 13:25 | disposition home or self-care (01) ==
LOC: HO.HOSX 13:24
PROVIDERS: PCP Nurse Practitioner Family; Visit Provider Physician Assistant
DX: Z98.1 Arthrodesis status (principal)
CPT/HCPCS: 72110; 99212

== ENCOUNTER → 2024-07-31 14:43 | Outpatient (BNV) | payer MEDICARE, SELFPAY | PROVIDERS: PCP Nurse Practitioner Family; Visit Provider Radiology Diagnostic Radiology | DX: M47.816 Spondylosis without myelopathy or radiculopathy, lumbar region (principal) | CPT/HCPCS: 72110 ==

== ENCOUNTER 2024-09-05 07:24 | Outpatient (REF) | payer MEDICARE, SELFPAY ==
--- NOTE | ~2024-09-05 | CT_ITS ---
EXAMINATION: CT LUMBAR SPINE WITHOUT CONTRAST CLINICAL INFORMATION: Arthrodesis status. COMPARISON: Collated to x-ray dated July 31, 2024. TECHNIQUE: Contiguous axial images through the lumbar spine using 2 mm collimation with bone and soft tissue algorithm. Sagittal and coronal reformatted images acquired. This CT examination was performed using dose optimization techniques as appropriate, variously including the following: *Automated exposure control *Adjustment of mA and/or kV according to patient size (this includes techniques or standardized protocols for targeted exams where dose is matched to indication/reason for exam; i.e. extremities or head) *Use of iterative reconstruction technique DLP: 1253 mGy centimeter. FINDINGS: Patient's large body habitus. Public Health Training Assistant images demonstrated the metallic hardware posterior elements L4-5 and a right-sided hip arthroplasty prosthesis. Last rib-bearing vertebra labeled T12. Marginal osteophyte formation and endplate sclerosis subchondral cyst formation decreased intervertebral disc height and vacuum phenomenon at L3-4.. Transpedicular screws bilaterally at L4-5 and L5-S1. Intervertebral disc spacer at L4-5. Grade 1 anterolisthesis L3-4. Marginal osteophyte formation and endplate sclerosis decreased intervertebral disc height and vacuum phenomenon at L5-S1. Bilateral laminectomy, L4-5 and L5-S1. Status post resection of the posterior spinous processes at L4 and L5. Bilateral facet joint hypertrophy at L3-4 L4-5 and to a lesser extent L5-S1. There is an apparent protrusion of the posterior/dorsal aspect of the thecal sac at L5-S1. T12-L1: No gross central spinal canal stenosis. L1-2: Reduced AP diameter of the central spinal canal on a degenerative basis. L2-3: Broad-based disc bulging. Facet joint and ligamentum flavum hypertrophy. Reduced AP diameter of the central spinal canal. L3-4: Facet joint hypertrophy. Grade 1 anterolisthesis. Reduced AP diameter of the central spinal canal. Questionable hyperdensity related to the ligamentum flavum, right greater than left contributing and the central spinal canal stenosis. Concerning bilateral neuroforamina stenosis on a multifactorial basis. L4-5: Postsurgical changes. L5-S1: Postsurgical changes with protrusion of the dorsal aspect of the thecal sac. Volume loss of the psoas muscles bilaterally. Bilateral renal cortical thinning. There is a 1.7 cm peripheral calcified attenuation abnormality involving the mid to distal splenic artery. Calcified plaques throughout the abdominal aorta wall. Abdominal aorta demonstrates normal diameter 1 mm calcification/calculus, right kidney. No hydronephrosis.. 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 Status post posterior L4-5 fusion and intervertebral disc spacer placement. 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 Electronically signed by: Micah Heller MD 09/05/2024 08:28 AM EDT
--- OUTSIDE RECORDS SUMMARY | 2024-09-05 07:27 | XMS_ITS | Clinical Summary ---
Author Organization [facility] Address [address] [place] [address] Care Team Providers Care Education Rep Name Role Phone Unknown Pcp, Non [...] however patient is planning on moving to [place] in the next few weeks. She does [...] (when compared with previous ct scan from [facility], but NEW lung nodule R middle lobe 2 mm. Will f/u with screen CT in 1 year HTN 11/02/2015 Cervical spondylosis with radiculopathy 11/02/19 16 Flat foot (pes planus) (acquired), left foot Psoriasis 11/02/2015 Major depression in partial remission 11/02/2015 Overview (12/21/2016): Refer to PCP cpe dated 01/11/16 Psych: Reports anxiety and depression are stable. Sees Dr. Alvarado psychiatrist, in [place]. He prescribes lamotrigine, duloxetine, tramadol, Adderall. 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 Irene Christensen in [place]. Confirmed with their office that she is [...] or Zetia. The 10-year ASCVD risk score ([place] SUNDEEP Mejia, et al., 2013) is: 6.7% [...] Radha Spangler NP Procedures * Due to [place] [employer] law, this organization might not be sharing negative HIV tests. Procedure Name Priority Date/Time Associated Diagnosis Comments MAMMOGRAPHY-BILATERAL 06/05/2014 PAP SMEAR 06/05/2014 from Last 3 Months or Most Recently Relevant to Health Maintenance Results * Due to [place] [employer] law, this organization might not be sharing [...] Documents on File Type Date Recorded Patient Operations Assistant Expl anation Advance Directives and Living Will 03/11/2016 Care Teams Education Rep Relationship Specialty Start Date End Date Unknown Pcp, Non Rmg PCP - General 02/03/17
--- OUTSIDE RECORDS SUMMARY | 2024-09-05 07:27 | XMS_ITS | Encounter Summary ---
Author Organization [facility] Address [address] [place] [address] Care Team Providers Care Millinery Designer Name Role Phone Brandyn Pagan MD Primary Care Provider Unavaila Radha Fink NP Unavailable Unavailable Unknown Pcp, Non [facility] Primary Care Provider Unava ilable Encounter Details Date Type Department Care Team (Late st Contact Info) Description 03/18/2016 Orders Only [facility] [address] [place] [address] Radha Spangler NP Social History Tobacco Use [...] 120/73( 017 9:26 AM EDT) No Radha Spangelr NP documented as of this encounter Procedures * Due to [place] [employer] law, this organization might not be sharing [...] this encounter Results * Due to [place] [employer] law, this organization might not be sharing negative HIV tests. * (ABNORMAL) BASIC METABOLIC PANEL WITH (GFR) (03/18/2016 10:02 AM EDT) Glucose 102(H) 65 - 99 mg/dL [facility] Comment: {GLUCOSE {[id number]) ? Fasting reference interval Urea Nitrogen Blood (BUN) 21 7 - 25 mg/dL [facility] Comment:{UREA NITROGEN (BUN) {[id number]) Creatinine 0.95 0.50 - 0.99 mg/dL [facility] Comment: {CREATININE {[id number]) For patients >49 years of age, the reference limit for Creatinine is approximately 13% higher for people identified as -[place]. GFR 63 > OR = 60 mL/min/1 .73m2 [facility] Comment:{eGFR NON-AFR. AMERI CAN {[id number]) GFR () 73 > OR = 60 mL/min/1 .73m2 [facility] Comment:{eGFR AMERIC AN {[id number]) BUN/Creatinine Ratio NOT APPLICABLE (calc) [facility] Comment:{BUN/CREATININE RATI O {[id number]) Sodium 139 135 - 146 mmol/L [facility] Comment:{SODIUM {[id number]) Potassium 4.8 3.5 - 5.3 mmol/L [facility] Comment:{POTASSIUM {[id number]) Chloride 106 98 - 110 mmol/L [facility] Comment:{CHLORIDE {[id number]) Carbon dioxide 25 20 - 31 mmol/L [facility] Comment:{CARBON DIOXIDE {[id number]) Calcium 9.3 8.6 - 10.4 mg/dL [facility] Comment:{CALCIUM {[id number]) 03/18/2016 10:0 2 AM EDT 03/18/2016 [...] needs for GFR calculation. Resulting Agency Comment [id number] Radha Spangler NP LABORATORY Final Result [facility] [address] [place] [address] * (ABNORMAL) CREATINE KINASE (CK), SERUM (03/18/2016 10:02 AM EDT) CPK 196(H) 29 - 143 U/L [facility] Comment:{CREATINE KINASE, TO KENZIE {[id number]) 03/18/2016 10:0 2 AM EDT 03/18/2016 4:21 PM EDT Narrative Resulting Agency Comment [id number] Radha Spangler NP LAB SAME DAY RESULT Final Re sult [facility] [address] [place] [address] * (ABNORMAL) ALANINE AMINOTRANSFERASE (ALT), SERUM (03/18/2016 10:02 AM EDT) ALT (SGPT) 32(H) 6 - 29 U/L [facility] Comment:{ALT {[id number]) 03/18/2016 10:0 2 AM EDT 03/18/2016 4:21 PM EDT Narrative Resulting Agency Comment [id number] Radha Spangler UTILITY WORKER FORGE LAB SAME DAY RESULT Final Re sult Performing Organization Address [facility] Co de Phone Number [facility] [address] [place] [address] * (ABNORMAL) LIPID PANEL WITH REFLEX TO DIRECT LDL (03/18/2016 10:02 AM EDT) Cholesterol 274(H) 125 - 200 mg/dL [facility] Comment:{CHOLESTEROL, TOTAL {[id number]) HDL Cholesterol 74 > OR = 46 mg/dL [facility] Comment:{HDL CHOLESTEROL {[id number]) Triglyceride 165(H) <150 mg/dL [facility] Comment:{TRIGLYCERIDES {[id number]) LDL Cholesterol 167(H) <130 mg/dL (calc) [facility] Comment: {LDL-CHOLESTEROL {[id number]) Desirable range <100 mg/dL for patients with CHD or diabetes and <70 mg/dL for diabetic patients with known heart disease. CHOL/HDL Ratio 3.7 < OR = 5.0 (calc) [facility] Comment:{CHOL/HDLC RATIO {[id number]) Cholesterol Non-HDL 200(H) mg/dL (calc) [facility] Comment: {NON HDL CHOLESTEROL {[id number]) Target for non-HDL cholesterol is 30 mg/dL higher than LDL cholesterol target. 03/18/2016 10:0 2 AM EDT 03/18/2016 4:21 PM EDT Narrative Resulting Agency Comment [id number] Radha Spangler NP LABORATORY Final Result [facility] [address] [place] [address] documented in this encounter Visit Diagnoses Diagnosis Hyperlipidemia, unspecified hyperlipidemia type Essential hypertension with goal blood pressure less than 140/90 documented in this encounter Care Teams Millinery Designer Relationship Specialty Start Date End Date Brandyn Pagan MD PCP - General Internal Medicine 08/07/15 02/02/17 Radha Spangler NP PCP - Backup PCP Internal Medicine 01/11/16 02/02/17 Unknown Pcp, Non [facility] PCP - General 02/03/17 documented as of this encounter
--- OUTSIDE RECORDS SUMMARY | 2024-09-05 07:27 | XMS_ITS | Encounter Summary ---
Author Organization [facility] Address [address] [place] [address] Care Team Providers Care Gas Welder Apprentice Name Role Phone Brandyn Pagan MD Primary Care Provider UnavailRadha Mas NP Unavailable Unavailable Unknown Pcp, Non [facility] Primary Care Provider Unava ilable Encounter Details Date Type Department Care Team (Late st Contact Info) Description 10/24/2016 Orders Only [address] [address] Concha Bustillo PA [address] [place] [id number] Social History Tobacco Use Types Packs/Day Years [...] this encounter Procedures * Due to [place] [employer] law, this organization might not be sharing negative HIV tests. Procedure Name Priority Date/Time Associated Diagnosis Comments EKG-USE ONLY IN [facility]/OCC MED/CARDIO Routine 10/21/2016 4:41 PM EDT Acute pain of right shoulder documented in this encounter Results * Due to [place] [employer] law, this organization might not be sharing [...] shoulder documented in this encounter Care Teams Gas Welder Apprentice Relationship Specialty Start Date End Date Brandyn Pagan MD PCP - General Internal Medicine 08/07/15 02/02/17 Radha Spangler NP PCP - Backup PCP Internal Medicine 01/11/16 02/02/17 Unknown Pcp, Non [facility] PCP - General 02/03/17 documented as of this encounter
--- OUTSIDE RECORDS SUMMARY | 2024-09-05 07:27 | XMS_ITS | Encounter Summary ---
Author Organization [facility] Address [address] [place] [address] Care Team Providers Care Process Equipment Operator Name Role Phone Brandyn Pagan MD Primary Care Provider Radha Cuevas NP Unavailable Unavailable Unknown Pcp, Non [facility] Primary Care Provider Unava ilable Reason for Visit * Reason Onset Date Comments Labs/orders 12/28/2015 Creatinine Order for Radiology with Contrast Encounter Details Date Type Department Care Team ([facility] st Contact Info) Description 12/28/2015 Telephone [address] [facility] Magnetic Resonance Imaging [address] [place] [address] Radha Spangler NP Labs/orders (Creatinine [...] Cervicalgia documented in this encounter Care Teams Process Equipment Operator Relationship Specialty Start Date End Date Brandyn Pagan MD PCP - General Internal Medicine 08/07/15 02/02/17 Radha Spangler NP PCP - Backup PCP Internal Medicine 01/11/16 02/02/17 Unknown Pcp, Non [facility] PCP - General 02/03/17 documented as of this encounter
--- OUTSIDE RECORDS SUMMARY | 2024-09-05 07:27 | XMS_ITS | Encounter Summary ---
Author Organization [facility] Address [address] [place] [address] Care Team Providers Care Sales Representative Education Courses Name Role Phone Brandyn Pagan MD Primary Care Provider Radha Cuevas NP Unavailable Unavailable Unknown Pcp, Non [facility] Primary Care Provider Unava ilable Encounter Details Date Type Department Care Team (Late st Contact Info) Description 06/21/2016 Orders Only [facility] [address] [place] [address] Brandyn Pagan MD Social History Tobacco Use [...] this encounter Procedures * Due to [place] [employer] law, this organization might not be sharing negative HIV tests. Procedure Name Priority Date/Time Associated Diagnosis Comments URINALYSIS, DIP ONLY STAT (All results called to provider) 06/21/2016 11:17 AM EST Frequent urination CULTURE, URINE, ROUTINE Routine 06/21/2016 10:35 AM EST Frequent urination URINALYSIS, MICROSCOPIC Routine 06/21/2016 10:35 AM EST Frequent urination documented in this encounter Results * Due to [place] [employer] law, this organization might not be sharing negative HIV tests. * URINALYSIS, DIP ONLY ( SITE STAT ONLY) (06/21/2016 11:17 AM EST) COLOR (URINE) YELLOW [facility] (CLIA# [id number]) APPEARANCE (URINE) CLEAR Clear [facility] (CLIA# [id number]) SPECIFIC GRAVITY 1.020 1.001 - 1.035 [facility] (CLIA# [id number]) PH (URINE) 6.0 5.0 - 8.0 [facility] (CLIA# [id number]) PROTEIN (URINE) NEGATIVE Neg [facility] (CLIA# [id number]) GLUCOSE (URINE) NEGATIVE Neg [facility] (CLIA# [id number]) Ketones (Urine) NEGATIVE Neg [facility] (CLIA# [id number]) BILIRUBIN (URINE) NEGATIVE Neg [facility] (CLIA# [id number]) BLOOD (URINE) NEGATIVE Neg [facility] (CLIA# [id number]) Leukocyte esterase (Urine) NEGATIVE Neg [facility] (CLIA# [id number]) NITRITE (URINE) NEGATIVE Neg [facility] (CLIA# [id number]) Urine specimen (specimen) 06/21/2016 11:17 AM EST Narrative [facility] (CLIA# [id number]) - 06/21/2016 11:17 AM EST Micro and culture already ordered by provider. us Brandyn Pagan MD LAB SAME DAY RESULT Final Resul t [facility] (CLIA# [id number]) [address] [place] [address] * CULTURE, URINE, ROUTINE (06/21/2016 10:35 AM EST) Bacteria culture (Urine) SEE NOTE [facility] Comment: ??CULTURE, URINE, ROUTINE ??MICRO NUMBER: ?[id number] ??TEST STATUS: ? FINAL ??SPECIMEN SOURCE: ?? URINE ??SPECIMEN QUALITY: ??ADEQUATE ??RESULT: ?Multiple organisms present, each less than 10,000 ? CFU/mL. These organisms, commonly found on ? external and internal genitalia, are considered ? to be colonizers. No further testing performed. 06/21/2016 10:3 5 AM EST 06/21/2016 4:50 PM EST Narrative Resulting Agency Comment [id number] Brandyn Pagan MD LABORATORY Final Result Performing Organization Address [facility] de Phone Number [facility] [address] [place] [address] * URINALYSIS, MICROSCOPIC (06/21/2016 10:35 AM EST) [...] 4:50 PM EST Narrative Resulting Agency Comment [id number] Brandyn Pagan MD LAB SAME DAY RESULT Final Resul t Performing Organization Address [facility] de Phone Number [facility] [address] [place] [address] documented in this encounter Visit Diagnoses Diagnosis Frequent urination Urinary frequency documented in this encounter Care Teams Sales Representative Education Courses Relationship Specialty Start Date End Date Brandyn Pagan MD PCP - General Internal Medicine 08/07/15 02/02/17 Radha Spangler NP PCP - Backup PCP Internal Medicine 01/11/16 02/02/17 Unknown Pcp, Non [facility] PCP - General 02/03/17 documented as of this encounter
--- OUTSIDE RECORDS SUMMARY | 2024-09-05 07:27 | XMS_ITS | Data Portability ---
Author Organization [facility] Address [address] [place] [address] Care Team Providers Care Product Communications Manager Name Role Phone JANIE SOLOMON Primary Care [...] and prognosis were reviewed with the patient. [email or web address] Not available 07/31/2023 03:00:11 Plan of Treatment Reminders Order Date Submit Date Provider Last Modified By Organization Details Last Modified Time Details Appointments None recorded . Lab fungus, culture, skin or hair or nails - left hallux nail 024 10/19/19 24 [facility], [address], [place], [address], 4 09:21:19 Referral None recorded . Procedures None recorded . Surgeries None recorded . Imaging XR, ankle, 3 or more view 024 07/31/19 24 3 [facility], [address], [address], [place], [address], 4 00:03:13 Medication Orders None recorded . Patient TargetsNo targets recorded. Patient InstructionsNo instructions recorded. Reason for Referral None Reported. Results Created Date Observation Date Name Description Value Unit Range Abnormal Flag Note LastModifiedBy Organization Detail LastModifiedTime 07/31/19 24 XR, ankle , 3 or more view No observ ation record ed. [email or web address] [facility] [address], [place], [address], 07/31/2023 00:03:11 Result Notes None recorded. Procedures Surgical History Date Name Laterality Status Provider Name and Address Organization Details Recorded Time procedure on knee completed [facility] 07/21/2023 16:09:01 procedure on hip completed [facility] 07/21/2023 16:09:08 procedure on back completed [facility] 07/21/2023 16:09:18 procedure on neck completed [facility] 07/21/2023 16:09:26 Imaging Results Imaging Date Name Status LastModified by Organiz ation Details LastModified Time 07/31/2023 XR, ankle, 3 or more view completed [email or web address] [facility] [address], [place], [address], 07/31/2023 00:03:11 Procedure Notes None recorded. Medical Equipment None Reported. Allergies Allergen ID Allergen Name Allergen Category Reaction Reaction Severity Criticality Documentation Date Start Date Code Code System Note Provider Name and Address Organization Details Recorded Time 575581 Product containin g 3-hydroxy -3-methyl glutaryl- coenzyme A reductase inhibitor (product) medicatio n Not available Not available Not available 07/21/[address] [facility] 16:06:50 Medications Name Sig Start Date [...] HOURS NEEDED FOR POST OP PAIN DNF 866515 07/20 completed Not Available Not Available Not [...] Not Available Not Available No t Available [place] Thyroid 30 mg tablet TAKE 1 ORAL [...] Updated DateTime 4 167.64 cm 35.5 kg/m2 55594.3 2 g 77 /min 155 mm[Hg] 102 mm[Hg] Kelly Mcdonald [facility] 4 16:08:09 Date Recorded Body height Body mass index (BMI) Body weight Heart rate Systolic blood pressure Diastolic blood pressure Provider Name and Address Organization Details Last Updated DateTime 4 167.64 cm 35.5 kg/m2 76148.3 2 g 68 /min 155 mm[Hg] 95 mm[Hg] Kelly Mcdonald [facility] 4 16:56:50 Date Recorded Body height Body mass index (BMI) Body weight Heart rate Systolic blood pressure Diastolic blood pressure Provider Name and Address Organization Details Last Updated DateTime 4 167.64 cm 35.5 kg/m2 77296.3 2 g 81 /min 118 mm[Hg] 65 mm[Hg] Kelly Mcdonald [facility] 4 14:22:16 Social History Question Answer Notes LastModified by Organizat ion Details LastModified Time Tobacco Smoking Status Former Smoker Kelly Mcdonald [facility] 07/21/2023 16:08:43 Do You [...] Do You Have A Medical Power Of Public Works Inspector? No Information not available 07/21/2023 What [...] SNOMED-CT Code Diagnosis ICD10 Code Diagnosis Note [id number] Jair Winter DPM [facility] [address] [address] 07/21/2023 15:55:39 07/21/2023 16:23:11 Acquired valgus deformity of left ankle [id number] 47206 M21.072 X-rays 3 views left foot DP/LAT/LO [...] sent to PCP for L1970 and L2820. [id number] Jair Winter DPM [facility] [address] [address] 09/28/2023 15:34:38 09/28/2023 17:16:16 Acquired valgus deformity of left ankle [id number] 43473 M21.072 Curry brace AFO with 6degrees varus [...] from the lab for dispensing and fitting. [id number] Jair Winter DPM [facility] [address],[facility] [place] [address] 10/19/2023 14:03:51 10/19/2023 15:20:34 Dystrophia unguium 88007516 L60.3 Condition( s), etiologies , and options [...] Acquired v algus deformity of left ankle [id number] 55053 M21.072 Curry brace AFO with 6 degrees [...] orthoses until they are wearing the orthoses time study observer. The AFO device was comfortabl e and [...] [employer] - GOLD [employer]US (MEDICARE REPLACEMENT HMO) [id number] Genie Vora [id number] Genie Vora 09/28/2023 1 [employer] G[employer] (MEDICARE REPLACEMENT HMO) [id number] Genie Vora [id number] Genie Vora 10/19/2023 1 [employer] GOLD [employer]US (MEDICARE REPLACEMENT HMO) [id number] Genie Vora [id number] Genie Vora Notes Date Note Type Note Provider Name and Address Organization Details Recorded Time 07/21/2023 text/html New patient presents for management of painful left foot and ankle. The patient reports that ankle has slowly sagged in the medial direction. He denies any history of trauma. It is worse with prolonged standing or walking.Reported past medical history was reviewed. Jair Winter DPM [address] [place], [address], [facility] 07/31/2023 03:01:43 09/28/2023 text/html The patient presents for scanning of her left foot and ankle for a Curry brace. This will help her progressive left ankle valgus deformity. Jair Winter DPM [address] [place], [address], [facility] 09/28/2023 21:49:44 10/19/2023 text/html 1. 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 Concerned about increasing yellowing of toenails. Jair Winter DPM [address] [place], [address], [facility] 10/22/2023 16:25:45 OBGyn Episode No OBEpisode recorded.
--- OUTSIDE RECORDS SUMMARY | 2024-09-05 07:27 | XMS_ITS | Encounter Summary ---
Author Organization [facility] Address [address] [place] [address] Care Team Providers Care Material Hauler Name Role Phone Brandyn Pagan MD Primary Care Provider Unavaila Radha Fink NP Unavailable Unavailable Unknown Pcp, Non [facility]mg Primary Care Provider Unava ilable Encounter Details Date Type Department Care Team (Late st Contact Info) Description 04/08/2016 Orders Only [facility] [address] [place] [address] Radha Spangler NP Social History Tobacco Use [...] encounter Procedures * Due to [place] law, this organization might not be sharing [...] encounter Results * Due to [place] law, this organization might not be sharing negative HIV tests. * (ABNORMAL) CULTURE, URINE, ROUTINE (04/08/2016 12:17 PM EST) Bacteria culture (Urine) SEE NOTE(A) [facility] Comment: {CULTURE, URINE, ROUTINE {[id number]) ??CULTURE, URINE, ROUTINE ??MICRO NUMBER: ?[id number] ??TEST STATUS: ? FINAL ??SPECIMEN SOURCE: ?? [...] 7:00 PM EST Narrative Resulting Agency Comment [id number] Radha Spangler NP LABORATORY Final Result [facility] [address] [place] [address] * (ABNORMAL) URINALYSIS, COMPLETE INCLUDES DIPSTICK AND MICROSCOPIC (04/08/2016 12:17 PM EST) Color (Urine) YELLOW YELLOW [facility] Comment:{COLOR {[id number]) Appearance (Urine) CLEAR CLEAR [facility] Comment:{APPEARANCE {[id number]) Specific gravity (Urine) 1.019 1.001 - 1.035 [facility] Comment:{SPECIFIC GRAVITY {[id number]) pH (Urine) 6.5 5.0 - 8.0 [facility] Comment:{PH {[id number]) Glucose (Urine) NEGATIVE NEGATIVE [facility] Comment:{GLUCOSE {[id number]) Bilirubin (Urine) NEGATIVE NEGATIVE [facility] Comment:{BILIRUBIN {[id number]) Ketones (Urine) NEGATIVE NEGATIVE [facility] Comment:{KETONES {[id number]) Hemoglobin (Urine) NEGATIVE NEGATIVE [facility] Comment:{OCCULT BLOOD {[id number]) Protein (Urine) NEGATIVE NEGATIVE [facility] Comment:{PROTEIN {[id number]) Nitrite (Urine) NEGATIVE NEGATIVE [facility] Comment:{NITRITE {[id number]) Leukocyte esterase (Urine) TRACE(A) NEGATIVE [facility] Comment:{LEUKOCYTE ESTERASE {[id number]) WBC (Urine) 0-5 < OR = 5 /HPF [facility] Comment:{WBC {[id number]) RBC (Urine Sed) NONE SEEN < OR = 2 /HPF [facility] Comment:{RBC {[id number]) Epithelial cells.squamous (Urine sed) 0-5 < OR = 5 /HPF [facility] Comment:{SQUAMOUS EPITHELIAL CELLS {[id number]) Bacteria (Urine) NONE SEEN NONE SEEN /HPF [facility] Comment:{BACTERIA {[id number]) Hyaline casts (Urine sed) NONE SEEN NONE SEEN /LPF [facility] Comment:{HYALINE CAST {[id number]) 04/08/2016 12:1 7 PM EST 04/08/2016 7:00 PM EST Narrative Resulting Agency Comment [id number] Radha Spangler FIREPERSON LAB SAME DAY RESULT Final Re sult [facility] [address] [place] [address] * HEPATIC FUNCTION PANEL (ALT,AST,ALK PH,BILI'S,TP,ALB) (04/08/2016 12:17 PM EST) Protein Total (Serum) 6.1 6.1 - 8.1 g/dL [facility] Comment:{PROTEIN, TOTAL {[id number]) Albumin 4.2 3.6 - 5.1 g/dL [facility] Comment:{ALBUMIN {[id number]) Globulin 1.9 1.9 - 3.7 g/dL (calc) [facility] Comment:{GLOBULIN {[id number]) Albumin/Globulin 2.2 1.0 - 2.5 (calc) [facility] Comment:{ALBUMIN/GLOBULIN RA LANA {[id number]) Bilirubin Total 0.3 0.2 - 1.2 mg/dL [facility] Comment:{BILIRUBIN, TOTAL {[id number]) Bilirubin Direct 0.1 < OR = 0.2 mg/dL [facility] Comment:{BILIRUBIN, DIRECT { [id number]) Bilirubin Indirect 0.2 0.2 - 1.2 mg/dL (calc) [facility] Comment:{BILIRUBIN, INDIRECT {[id number]) Alkaline phosphatase 111 33 - 130 U/L [facility] Comment:{ALKALINE PHOSPHATAS E {[id number]) AST (SGOT) 21 10 - 35 U/L [facility] Comment:{AST {[id number]) ALT (SGPT) 22 6 - 29 U/L [facility] Comment:{ALT {[id number]) 04/08/2016 12:1 7 PM EST 04/08/2016 7:00 PM EST Narrative Resulting Agency Comment [id number] Radha Spangler NP LABORATORY Final Result Performing Organization Address City/[facility]/ZIP Co de Phone Number [facility] [address] [place] [address] * CREATINE KINASE (CK), SERUM (04/08/2016 12:17 PM EST) CPK 133 29 - 143 U/L [facility] Comment:{CREATINE KINASE, TO KENZIE {[id number]) 04/08/2016 12:1 7 PM EST 04/08/2016 7:00 PM EST Narrative Resulting Agency Comment [id number] Radha Spangler NP LAB SAME DAY RESULT Final Re sult Performing Organization Address City/[facility]/ZIP Co de Phone Number [facility] [address] [place] [address] * (ABNORMAL) BASIC METABOLIC PANEL WITH (GFR) (04/08/2016 12:17 PM EST) Glucose 101(H) 65 - 99 mg/dL [facility] Comment: {GLUCOSE {[id number]) ? Fasting reference interval Urea Nitrogen Blood (BUN) 37(H) 7 - 25 mg/dL [facility] Comment:{UREA NITROGEN (BUN) {[id number]) Creatinine 1.13(H) 0.50 - 0.99 mg/dL [facility] Comment: {CREATININE {[id number]) For patients >49 years of age, the reference limit for Creatinine is approximately 13% higher for people identified as -[place]. GFR 51(L) > OR = 60 mL/min/1. 73m2 [facility] Comment:{eGFR NON-AFR. AMERI CAN {[id number]) GFR () 59(L) > OR = 60 mL/min/1. 73m2 [facility] Comment:{eGFR AMERIC AN {[id number]) BUN/Creatinine Ratio 33(H) 6 - 22 (calc) [facility] Comment:{BUN/CREATININE RATI O {[id number]) Sodium 139 135 - 146 mmol/L [facility] Comment:{SODIUM {[id number]) Potassium 5.1 3.5 - 5.3 mmol/L [facility] Comment:{POTASSIUM {[id number]) Chloride 105 98 - 110 mmol/L [facility] Comment:{CHLORIDE {[id number]) Carbon dioxide 25 20 - 31 mmol/L [facility] Comment:{CARBON DIOXIDE {[id number]) Calcium 9.4 8.6 - 10.4 mg/dL [facility] Comment:{CALCIUM {[id number]) 04/08/2016 12:1 7 PM EST 04/08/2016 [...] needs for GFR calculation. Resulting Agency Comment [id number] Radha Spangler NP LABORATORY Final Result [facility] [address] [place] [address] documented in this encounter Visit Diagnoses Diagnosis [...] organs documented in this encounter Care Teams Material Hauler Relationship Specialty Start Date End Date rBandyn Pagan MD PCP - General Internal Medicine 08/07/15 02/02/17 Radha Spangler NP PCP - Backup PCP Internal Medicine 01/11/16 02/02/17 Unknown Pcp, Non Rmg PCP - General 02/03/17 documented as of this encounter
--- OUTSIDE RECORDS SUMMARY | 2024-09-05 07:27 | XMS_ITS | Encounter Summary ---
Author Organization [facility] Address [address] [place] [address] Care Team Providers Care Photovoltaic Subcontractor Name Role Phone Brandyn Pagan MD Primary Care Provider Unavaila Radha Fink NP Unavailable Unavailable Unknown Pcp, Non Rmg Primary Care Provider Unava ilable Encounter Details Date Type Department Care Team (Late st Contact Info) Description 01/04/2017 Orders Only [facility] [address] [place] [address] Rahda Spangler NP Social History Tobacco Use Types [...] 017 9:26 AM EDT) No Eineberg, Radha, MUSIC VIDEO DIRECTOR documented as of this encounter Procedures * Due to [place] law, this organization might not be sharing [...] this encounter Results * Due to [place] law, this organization might not be sharing negative HIV tests. * (ABNORMAL) BASIC METABOLIC PANEL WITH (GFR) (01/04/2017 1:11 PM EDT) Glucose 97 65 - 99 mg/dL [facility] Comment:Fasting reference in [facility] Urea Nitrogen Blood (BUN) 27(H) 7 - 25 mg/dL [facility] Creatinine 1.18(H) 0.50 - 0.99 mg/dL [facility] Comment: For patients >49 years of age, the reference limit for Creatinine is approximately 13% higher for people identified as -Mauritanian. GFR 48(L) > OR = 60 mL/min/1. [...] needs for GFR calculation. Resulting Agency Comment [id number] Radha Spangler NP LABORATORY Final Result Performing Organization Address [facility] Co de Phone Number [facility] [address] [place] [address] * HEPATIC FUNCTION PANEL (ALT,AST,ALK PH,BILI'S,TP,ALB) (01/04/2017 [...] 10:19 PM EDT Narrative Resulting Agency Comment [id number] Radha Spangler NP LABORATORY Final Result Performing Organization Address [facility] Co de Phone Number [facility] [address] [place] [address] * (ABNORMAL) HEMOGLOBIN A1C (01/04/2017 1:11 PM [...] 10:19 PM EDT Narrative Resulting Agency Comment [id number] Radha Spangler NP LABORATORY Final Result Performing Organization Address [facility] de Phone Number [facility] [address] [place] [address] * (ABNORMAL) LIPID PANEL WITH REFLEX TO [...] 10:19 PM EDT Narrative Resulting Agency Comment [id number] Radha Spangler NP LABORATORY Final Result Performing Organization Address [facility] de Phone Number [facility] [address] [place] [address] * (ABNORMAL) CBC INCLUDES DIFFERENTIAL AND PLATELET [...] 10:19 PM EDT Narrative Resulting Agency Comment [id number] Radha Spangler NP LAB SAME DAY RESULT Final Re sult [facility] [address] [place] [address] documented in this encounter Visit Diagnoses Diagnosis Nail discoloration Other specified disease of nail Transaminitis Nonspecific elevation of levels of transaminase or lactic acid dehydrogenase (LDH) Benign essential HTN Essential hypertension, benign CKD (chronic kidney disease), stage III (HCC) Chronic kidney disease, Stage III (moderate) documented in this encounter Care Teams Photovoltaic Subcontractor Relationship Specialty Start Date End Date Brandyn Pagan MD PCP - General Internal Medicine 08/07/15 02/02/17 Radha Spangler NP PCP - Backup PCP Internal Medicine 01/11/16 02/02/17 Unknown Pcp, Non Rmg PCP - General 02/03/17 documented as of this encounter
--- OUTSIDE RECORDS SUMMARY | 2024-09-05 07:27 | XMS_ITS | Encounter Summary ---
Author Organization [facility] Address [address] [place] [address] Care Team Providers Care Strategic Insights Lead Name Role Phone Brandyn Pagan MD Primary Care Provider Unavaila Radha Fink NP Unavailable Unavailable Unknown Pcp, Non Rmg Primary Care Provider Unava ilable Encounter Details Date Type Department Care Team (Late st Contact Info) Description 09/21/2016 Orders Only [facility] [address] [place] [address] Radha Spangler NP Social History Tobacco Use [...] this encounter Procedures * Due to [place] law, this organization might not be sharing negative HIV tests. Procedure Name Priority Date/Time Associated Diagnosis Comments ALANINE AMINOTRANSFERASE (ALT), SERUM Routine 09/21/2016 1:41 PM EDT Hyperlipidemia, unspecified hyperlipidemia type LIPID PANEL WITH REFLEX TO DIRECT LDL Routine 09/21/2016 1:41 PM EDT Hyperlipidemia, unspecified hyperlipidemia type documented in this encounter Results * Due to [place] law, this organization might not be sharing negative HIV tests. * ALANINE AMINOTRANSFERASE (ALT), SERUM (09/21/2016 1:41 PM EDT) ALT (SGPT) 25 6 - 29 U/L [facility] 09/21/2016 1:41 PM EDT 09/21/2016 6:16 PM EDT Narrative Resulting Agency Comment [id number] Radha Spangler PROGRAM CLINICIAN LAB SAME DAY RESULT Final Re sult [facility] [address] [place] [address] * (ABNORMAL) LIPID PANEL WITH REFLEX TO [...] 6:16 PM EDT Narrative Resulting Agency Comment [id number] Radha Spangler NP LABORATORY Final Result [facility] [address] [place] [address] documented in this encounter Visit Diagnoses Diagnosis Hyperlipidemia, unspecified hyperlipidemia type documented in this encounter Care Teams Strategic Insights Lead Relationship Specialty Start Date End Date Brandyn Pagan MD PCP - General Internal Medicine 08/07/15 02/02/17 Radha Spangler NP PCP - Backup PCP Internal Medicine 01/11/16 02/02/17 Unknown Pcp, Non Rmg PCP - General 02/03/17 documented as of this encounter
--- OUTSIDE RECORDS SUMMARY | 2024-09-05 07:27 | XMS_ITS | Encounter Summary ---
Author Organization [facility] Address [address] [place] [address] Care Team Providers Care Wireworker Supervisor Name Role Phone Brandyn Pagan MD Primary Care Provider Unavaila Radha Fink NP Unavailable Unavailable Unknown Pcp, Non Rmg Primary Care Provider Unava ilable Encounter Details Date Type Department Care Team ([facility] st Contact Info) Description 12/29/2015 Orders Only [address] [facility] [address] [place] [address] Radha Spangler NP Social History Tobacco Use [...] this encounter Procedures * Due to [place] law, this organization might not be sharing [...] this encounter Results * Due to [place] law, this organization might not be sharing negative HIV tests. * (ABNORMAL) BASIC METABOLIC PANEL WITH (GFR) (12/29/2015 10:04 AM EDT) Glucose 98 65 - 99 mg/dL [facility] Comment: {GLUCOSE {[id number]) ? Fasting reference interval Urea Nitrogen Blood (BUN) 22 7 - 25 mg/dL [facility] Comment:{UREA NITROGEN (BUN) {[id number]) Creatinine 1.20(H) 0.50 - 0.99 mg/dL [facility] Comment: {CREATININE {[id number]) For patients >49 years of age, the reference limit for Creatinine is approximately 13% higher for people identified as -[place]. GFR 48(L) > OR = 60 mL/min/1. 73m2 [facility] Comment:{eGFR NON-AFR. AMERI CAN {[id number]) GFR () 55(L) > OR = 60 mL/min/1. 73m2 [facility] Comment:{eGFR AMERIC AN {[id number]) BUN/Creatinine Ratio 18 6 - 22 (calc) [facility] Comment:{BUN/CREATININE RATI O {[id number]) Sodium 138 135 - 146 mmol/L [facility] Comment:{SODIUM {[id number]) Potassium 5.1 3.5 - 5.3 mmol/L [facility] Comment:{POTASSIUM {[id number]) Chloride 106 98 - 110 mmol/L [facility] Comment:{CHLORIDE {[id number]) Carbon dioxide 25 20 - 31 mmol/L [facility] Comment:{CARBON DIOXIDE {[id number]) Calcium 9.7 8.6 - 10.4 mg/dL [facility] Comment:{CALCIUM {[id number]) 12/29/2015 10:0 4 AM EDT 12/29/2015 [...] NP LABORATORY Final Result [facility] [address] [place] [address] * (ABNORMAL) LIPID PANEL WITH REFLEX TO DIRECT LDL (12/29/2015 10:04 AM EDT) Cholesterol 232(H) 125 - 200 mg/dL [facility] Comment:{CHOLESTEROL, TOTAL {[id number]) HDL Cholesterol 80 > OR = 46 mg/dL [facility] Comment:{HDL CHOLESTEROL {[id number]) Triglyceride 112 <150 mg/dL [facility] Comment:{TRIGLYCERIDES {[id number]) LDL Cholesterol 130(H) <130 mg/dL (calc) [facility] Comment: {LDL-CHOLESTEROL {[id number]) Desirable range <100 mg/dL for patients with CHD or diabetes and <70 mg/dL for diabetic patients with known heart disease. CHOL/HDL Ratio 2.9 < OR = 5.0 (calc) [facility] Comment:{CHOL/HDLC RATIO {[id number]) Cholesterol Non-HDL 152 mg/dL (calc) [facility] Comment: {NON HDL CHOLESTEROL {[id number]) Target for non-HDL cholesterol is 30 mg/dL higher than LDL cholesterol target. 12/29/2015 10:0 4 AM EDT 12/29/2015 3:11 PM EDT Narrative Resulting Agency Comment [id number] Radha Spangler NP LABORATORY Final Result Performing Organization Address City/[facility]/ZIP Co de Phone Number [facility] [address] [place] [phone] * ALANINE AMINOTRANSFERASE (ALT), SERUM (12/29/2015 10:04 AM EDT) ALT (SGPT) 25 6 - 29 U/L [facility] Comment:{ALT {[id number]) 12/29/2015 10:0 4 AM EDT 12/29/2015 3:11 PM EDT Narrative Resulting Agency Comment [id number] Radha Spangler NP LAB SAME DAY RESULT Final Re sult Performing Organization Address City/[facility] Co de Phone Number [facility] [address] [place] [address] documented in this encounter Visit Diagnoses Diagnosis Cervicodynia Cervicalgia Hyperlipidemia, unspecified hyperlipidemia type Essential hypertension with goal blood pressure less than 140/90 documented in this encounter Care Teams Wireworker Supervisor Relationship Specialty Start Date End Date Brandyn Pagan MD PCP - General Internal Medicine 08/07/15 02/02/17 Radha Spangler NP PCP - Backup PCP Internal Medicine 01/11/16 02/02/17 Unknown Pcp, Non Rmg PCP - General 02/03/17 documented as of this encounter
--- OUTSIDE RECORDS SUMMARY | 2024-09-05 07:27 | XMS_ITS | Encounter Summary ---
Author Organization [facility] Address [address] [place] [address] Care Team Providers Care Boilermaker Mechanic Name Role Phone Brandyn Pagan MD Primary Care Provider Unavaila Radha Fink NP Unavailable Unavailable Unknown Pcp, Non Rmg Primary Care Provider Unava ilable Encounter Details Date Type Department Care Team (Late st Contact Info) Description 02/19/2016 Orders Only [facility] [address] [place] [address] Brandyn Pagan MD Social History Tobacco Use [...] this encounter Procedures * Due to [place] law, this organization might not be sharing [...] this encounter Results * Due to [place] law, this organization might not be sharing negative HIV tests. * (ABNORMAL) URINALYSIS, DIP ONLY ( SITE STAT ONLY) (02/19/2016 2:13 PM EDT) COLOR (URINE) Yellow [facility] (CLIA# [id number]) APPEARANCE (URINE) Cloudy [facility] (CLIA# [id number]) SPECIFIC GRAVITY 1.010 1.001 - 1.035 [facility] (CLIA# [id number]) PH (URINE) 7.5 5.0 - 8.0 [facility] (CLIA# [id number]) PROTEIN (URINE) Trace(A) Neg [facility] (CLIA# [id number]) GLUCOSE (URINE) Negative Neg [facility] (CLIA# [id number]) Ketones (Urine) Negative Neg [facility] (CLIA# [id number]) BILIRUBIN (URINE) Negative Neg [facility] (CLIA# [id number]) BLOOD (URINE) Negative Neg [facility] (CLIA# [id number]) Leukocyte esterase (Urine) 2+(A) [facility] (CLIA# [id number]) NITRITE (URINE) Negative Neg [facility] (CLIA# [id number]) Urine specimen obtained by clean catch procedure (specimen) 02/19/2016 2:13 PM EDT Narrative [facility] (CLIA# [id number]) - 02/19/2016 2:14 PM EDT Micro and culture already ordered per provider. us Brandyn Pagan MD LAB SAME DAY RESULT Final Resul t [facility] (CLIA# [id number]) [address] [place] [address] * (ABNORMAL) CULTURE, URINE, ROUTINE (02/19/2016 2:00 PM EDT) Bacteria culture (Urine) SEE NOTE(A) [facility] Comment: {CULTURE, URINE, ROUTINE {[id number]) ??CULTURE, URINE, ROUTINE ??MICRO NUMBER: ?[id number] ??TEST STATUS: ? FINAL ??SPECIMEN SOURCE: ?? URINE ??SPECIMEN QUALITY: ??ADEQUATE ??RESULT: ?50,000-100,000 CFU/mL of Escherichia coli ? Greater than 100,000 CFU/mL of ? Staphylococcus saprophyticus ? The Clinical Laboratory Standards [place] (M100 ? guidelines), does not advise routine [...] 7:35 PM EDT Narrative Resulting Agency Comment [id number] Brandyn Pagan MD LABORATORY Final Result [facility] [address] [place] [address] * (ABNORMAL) URINALYSIS, MICROSCOPIC (02/19/2016 2:00 PM EDT) WBC (Urine) 20-40(A) < OR = 5 /HPF [facility] Comment:{WBC {[id number]) RBC (Urine Sed) NONE SEEN < OR = 2 /HPF [facility] Comment:{RBC {[id number]) Epithelial cells.squamous (Urine sed) NONE SEEN < OR = 5 /HPF [facility] Comment:{SQUAMOUS EPITHELIAL CELLS {[id number]) Bacteria (Urine) FEW(A) NONE SEEN /HPF [facility] Comment:{BACTERIA {[id number]) Hyaline casts (Urine sed) NONE SEEN NONE SEEN /LPF [facility] Comment:{HYALINE CAST {[id number]) 02/19/2016 2:00 PM EDT 02/19/2016 7:35 PM EDT Narrative Resulting Agency Comment [id number] Brandyn Pagan MD LAB SAME DAY RESULT Final Resul t Performing Organization Address City/State/[facility] Co de Phone Number [facility] [address] [place] [address] documented in this encounter Visit Diagnoses Diagnosis Urinary tract infection, site unspecified documented in this encounter Care Teams Boilermaker Mechanic Relationship Specialty Start Date End Date Brandyn Pagan MD PCP - General Internal Medicine 08/07/15 02/02/17 Radha Spangler NP PCP - Backup PCP Internal Medicine 01/11/16 02/02/17 Unknown Pcp, Non Rmg PCP - General 02/03/17 documented as of this encounter
--- OUTSIDE RECORDS SUMMARY | 2024-09-05 07:27 | XMS_ITS | Encounter Summary ---
Author Organization [facility] Address [address] [place] [address] Care Team Providers Care Hot Wort Settler Name Role Phone Brandyn Pagan MD Primary Care Provider Radha Cuevas NP Unavailable Unavailable Unknown Pcp, Non [facility]mg Primary Care Provider Unava ilable Encounter Details Date Type Department Care Team (Late st Contact Info) Description 09/09/2016 Orders Only [facility] [address] [place] [phone] Brandyn Pagan MD Social History Tobacco Use [...] this encounter Procedures * Due to [place] [employer] law, this organization might not be sharing negative HIV tests. Procedure Name Priority Date/Time Associated Diagnosis Comments URINALYSIS, DIP ONLY STAT (All results called to provider) 09/09/2016 12:32 PM EDT Frequency of urination CULTURE, URINE, ROUTINE Routine 09/09/2016 12:28 PM EDT Frequency of urination URINALYSIS, MICROSCOPIC Routine 09/09/2016 12:28 PM EDT Frequency of urination documented in this encounter Results * Due to [place] [employer] law, this organization might not be sharing negative HIV tests. * URINALYSIS, DIP ONLY ( SITE STAT ONLY) (09/09/2016 12:32 PM EDT) COLOR (URINE) Yellow [facility] (CLIA# [id number]) APPEARANCE (URINE) Clear Clear [facility] (CLIA# [id number]) SPECIFIC GRAVITY 1.015 1.001 - 1.035 [facility] (CLIA# [id number]) PH (URINE) 6.0 5.0 - 8.0 [facility] (CLIA# [id number]) PROTEIN (URINE) Negative Neg [facility] (CLIA# [id number]) GLUCOSE (URINE) Negative Neg [facility] (CLIA# [id number]) Ketones (Urine) Negative Neg [facility] (CLIA# [id number]) BILIRUBIN (URINE) Negative Neg [facility] (CLIA# [id number]) BLOOD (URINE) Negative Neg [facility] (CLIA# [id number]) Leukocyte esterase (Urine) Negative Neg [facility] (CLIA# [id number]) NITRITE (URINE) Negative Neg [facility] (CLIA# [id number]) Urine specimen obtained by clean catch procedure (specimen) 09/09/2016 12:32 PM EDT Narrative [facility] (CLIA# [id number]) - 09/09/2016 12:36 PM EDT Micro and culture already ordered per provider. us Brandyn Pagan MD LAB SAME DAY RESULT Final Resul t Performing Organization Address [facility] de Phone Number [facility] (CLIA# [id number]) [address] [place] [address] * CULTURE, URINE, ROUTINE (09/09/2016 12:28 PM EDT) Bacteria culture (Urine) SEE NOTE [facility] Comment: ??CULTURE, URINE, ROUTINE ??MICRO NUMBER: ?[id number] ??TEST STATUS: ? FINAL ??SPECIMEN SOURCE: ?? URINE ??SPECIMEN QUALITY: ??ADEQUATE ??RESULT: ?Multiple organisms present, each less than 10,000 ? CFU/mL. These organisms, commonly found on ? external and internal genitalia, are considered ? to be colonizers. No further testing performed. 09/09/2016 12:2 8 PM EDT 09/09/2016 7:38 PM EDT Narrative Resulting Agency Comment [id number] us Brandyn Pagan MD LABORATORY Final Result Performing Organization Address [facility]/ZIP Co de Phone Number [facility] [address] [place] [address] * URINALYSIS, MICROSCOPIC (09/09/2016 12:28 PM EDT) [...] 7:38 PM EDT Narrative Resulting Agency Comment [id number] us Brandyn Pagan MD LAB SAME DAY RESULT Final Resul t [facility] [address] [place] [address] documented in this encounter Visit Diagnoses Diagnosis Frequency of urination Urinary frequency documented in this encounter Care Teams Hot Wort Settler Relationship Specialty Start Date End Date Brandyn Pagan MD PCP - General Internal Medicine 08/07/15 02/02/17 Radha Spangler NP PCP - Backup PCP Internal Medicine 01/11/16 02/02/17 Unknown Pcp, Non [facility]mg PCP - General 02/03/17 documented as of this encounter
--- OUTSIDE RECORDS SUMMARY | 2024-09-05 07:27 | XMS_ITS | Encounter Summary ---
Author Organization [facility] Address [address] [place] [address] Care Team Providers Care Industrial Court Magistrate Name Role Phone Brandyn Pagan MD Primary Care Provider Unavaila Radha Fink NP Unavailable Unavailable Unknown Pcp, Non Rmg Primary Care Provider Unava ilable Encounter Details Date Type Department Care Team (Late st Contact Info) Description 01/28/2016 Orders Only [facility] [address] [place] [phone] Radha Spangler, MEY Social History Tobacco Use [...] this encounter Procedures * Due to [place] [employer] law, this organization might not be sharing negative HIV tests. Procedure Name Priority Date/Time Associated Diagnosis Comments BASIC METABOLIC PANEL WITH (GFR) Routine 01/28/2016 11:41 AM EDT Elevated serum creatinine documented in this encounter Results * Due to [place] [employer] law, this organization might not be sharing negative HIV tests. * (ABNORMAL) BASIC METABOLIC PANEL WITH (GFR) (01/28/2016 11:41 AM EDT) Glucose 95 65 - 99 mg/dL [facility] Comment: {GLUCOSE {[id number]) ? Fasting reference interval Urea Nitrogen Blood (BUN) 28(H) 7 - 25 mg/dL [facility] Comment:{UREA NITROGEN (BUN) {[id number]) Creatinine 1.12(H) 0.50 - 0.99 mg/dL [facility] Comment: {CREATININE {[id number]) For patients >49 years of age, the reference limit for Creatinine is approximately 13% higher for people identified as -Honduran. GFR 52(L) > OR = 60 mL/min/1. 73m2 [facility] Comment:{eGFR NON-AFR. AMERI CAN {[id number]) GFR () 60 > OR = 60 mL/min/1. 73m2 [facility] Comment:{eGFR AMERIC AN {[id number]) BUN/Creatinine Ratio 25(H) 6 - 22 (calc) [facility] Comment:{BUN/CREATININE RATI O {[id number]) Sodium 140 135 - 146 mmol/L [facility] Comment:{SODIUM {[id number]) Potassium 4.8 3.5 - 5.3 mmol/L [facility] Comment:{POTASSIUM {[id number]) Chloride 106 98 - 110 mmol/L [facility] Comment:{CHLORIDE {[id number]) Carbon dioxide 30 20 - 31 mmol/L [facility] Comment:{CARBON DIOXIDE {[id number]) Calcium 9.5 8.6 - 10.4 mg/dL [facility] Comment:{CALCIUM {[id number]) 01/28/2016 11:4 1 AM EDT 01/28/2016 [...] needs for GFR calculation. Resulting Agency Comment [id number] Radha Spangler NP LABORATORY Final Result Performing Organization Address City/State/[facility] Co de Phone Number [facility] [address] [place] [address] documented in this encounter Visit Diagnoses Diagnosis Elevated serum creatinine Other nonspecific findings on examination of blood documented in this encounter Care Teams Industrial Court Magistrate Relationship Specialty Start Date End Date Brandyn Pagan MD PCP - General Internal Medicine 08/07/15 02/02/17 Radha Spangler NP PCP - Backup PCP Internal Medicine 01/11/16 02/02/17 Unknown Pcp, Non Rmg PCP - General 02/03/17 documented as of this encounter
--- OUTSIDE RECORDS SUMMARY | 2024-09-05 07:27 | XMS_ITS | Encounter Summary ---
Author Organization [facility] Address [address] [place] [address] Care Team Providers Care Dean Of Girls Name Role Phone Brandyn Pagan MD Primary Care Provider Radha Cuevas NP Unavailable Unavailable Unknown Pcp, Non Rmg Primary Care Provider Unava ilable Reason for Visit * Reason Comments ER F/U Encounter Details Date Type Department Care Team (Late st Contact Info) Description 07/29/2016 [facility] Internal Medicine [address] [place] [phone] Brandyn Pagan MD ER F/U Social [...] following an Emergency Department visit. ED location: [facility] ER Date of ED Visit: 07-26-16 [...] on filedocumented in this encounter Care Teams Dean Of Girls Relationship Specialty Start Date End Date Brandyn Pagan MD PCP - General Internal Medicine 08/07/15 02/02/17 Radha Spangler NP PCP - Backup PCP Internal Medicine 01/11/16 02/02/17 Unknown Pcp, Non Rmg PCP - General 02/03/17 documented as of this encounter
--- OUTSIDE RECORDS SUMMARY | 2024-09-05 07:27 | XMS_ITS | Encounter Summary ---
Author Organization [facility] Address [address] [place] [address] Care Team Providers Care Owner/Photographer Name Role Phone Brandyn Pagan MD Primary Care Provider Radha Cuevas NP Unavailable Unavailable Unknown Pcp, Non Rmg Primary Care Provider Unava ilable Reason for Referral * CONSULT AND TREATMENT (Routine) - Closed Specialty Diagnoses / Procedures Referred By Contac t Referred To Contact Chiropractic Diagnoses Back pain, unspecified back location, unspecified back pain laterality, unspecified chronicity Brandyn Pagan MD [place], Peter J [address] [place] [address] Phone: tel: fax: Referral ID Status Reason Start Date Expiration Date V isits Requested Visits Authorized [id number] Closed Chiropractor 01/27/2017 05/21/2017 1 1 Question Answer When do you want this visit to occur? PT CONVENIENCE Patient is being referred outside of [facility] for the following reason, however final determination for [id number] requests are made by the Referral Management Department Service is not available within [facility] Track Order? No Please list the patient's preferred provider for this consult. Dr Yonis Lang [address] [place] [address] npi#[id number] Encounter Details Date Type Department Care Team (Late st Contact Info) Description 01/27/2017 Orders Only [facility] [address] [place] [phone] Brandyn Pagan MD Social History Tobacco Use [...] chronicity documented in this encounter Care Teams Owner/Photographer Relationship Specialty Start Date End Date Brandyn Pagan MD PCP - General Internal Medicine 08/07/15 02/02/17 Radha Spangler NP PCP - Backup PCP Internal Medicine 01/11/16 02/02/17 Unknown Pcp, Non Rmg PCP - General 02/03/17 documented as of this encounter
--- OUTSIDE RECORDS SUMMARY | 2024-09-05 07:27 | XMS_ITS | Encounter Summary ---
Author Organization [facility] Address [address] [place] [address] Care Team Providers Care Finance Vice President Name Role Phone Brandyn Pagan MD Primary Care Provider Radha Cuevas NP Unavailable Unavailable Unknown Pcp, Non Rmg Primary Care Provider Unava ilable Encounter Details Date Type Department Care Team (Late st Contact Info) Description 01/12/2017 Orders Only [facility] [address] [place] [address] Brandyn Pagan MD Social History Tobacco Use [...] this encounter Procedures * Due to [place] [employer] law, this organization might not be sharing negative HIV tests. Procedure Name Priority Date/Time Associated Diagnosis Comments URINALYSIS, DIP ONLY STAT (All results called to provider) 01/12/2017 12:59 PM EDT Frequency of urination CULTURE, URINE, ROUTINE Routine 01/12/2017 12:22 PM EDT Frequency of urination URINALYSIS, MICROSCOPIC Routine 01/12/2017 12:22 PM EDT Frequency of urination documented in this encounter Results * Due to [place] [employer] law, this organization might not be sharing negative HIV tests. * URINALYSIS, DIP ONLY ( SITE STAT ONLY) (01/12/2017 12:59 PM EDT) COLOR (URINE) YELLOW [facility] (CLIA# [id number]) APPEARANCE (URINE) CLEAR Clear [facility] (CLIA# [id number]) SPECIFIC GRAVITY 1.005 1.001 - 1.035 [facility] (CLIA# [id number]) PH (URINE) 7.0 5.0 - 8.0 [facility] (CLIA# [id number]) PROTEIN (URINE) NEG Neg [facility] (CLIA# [id number]) GLUCOSE (URINE) NEG Neg [facility] (CLIA# [id number]) Ketones (Urine) NEG Neg [facility] (CLIA# [id number]) BILIRUBIN (URINE) NEG Neg [facility] (CLIA# [id number]) BLOOD (URINE) NEG Neg [facility] (CLIA# [id number]) Leukocyte esterase (Urine) NEG Neg [facility] (CLIA# [id number]) NITRITE (URINE) NEG Neg [facility] (CLIA# [id number]) Urine specimen obtained by clean catch procedure (specimen) 01/12/2017 12:59 PM EDT Narrative [facility] (CLIA# [id number]) - 01/12/2017 1:00 PM EDT Micro and culture already ordered per provider. Brandyn Pagan MD LAB SAME DAY RESULT Final Resul t Performing Organization Address [facility] de Phone Number [facility] (CLIA# [id number]) [address] [place] [address] * CULTURE, URINE, ROUTINE (01/12/2017 12:22 PM EDT) Bacteria culture (Urine) SEE NOTE [facility] Comment: ??CULTURE, URINE, ROUTINE ??MICRO NUMBER: ?[id number] ??TEST STATUS: ? FINAL ??SPECIMEN SOURCE: ?? URINE ??SPECIMEN QUALITY: ??ADEQUATE ??RESULT: ?No Growth 01/12/2017 12:2 2 PM EDT 01/12/2017 10:29 PM EDT Narrative Resulting Agency Comment [id number] us Brandyn Pagan MD LABORATORY Final Result Performing Organization Address City/[facility]/ZIP Co de Phone Number [facility] [address] [place] [address] * URINALYSIS, MICROSCOPIC (01/12/2017 12:22 PM EDT) [...] 10:29 PM EDT Narrative Resulting Agency Comment [id number] us Brandyn Pagan MD LAB SAME DAY RESULT Final Resul t Performing Organization Address City/State/[facility] Co de Phone Number [facility] [address] [place] [address] documented in this encounter Visit Diagnoses Diagnosis Frequency of urination Urinary frequency documented in this encounter Care Teams Finance Vice President Relationship Specialty Start Date End Date Brandyn Pagan MD PCP - General Internal Medicine 08/07/15 02/02/17 Radha Spangler NP PCP - Backup PCP Internal Medicine 01/11/16 02/02/17 Unknown Pcp, Non Rmg PCP - General 02/03/17 documented as of this encounter
--- OUTSIDE RECORDS SUMMARY | 2024-09-05 07:27 | XMS_ITS | Encounter Summary ---
Author Organization [facility] Address [address] [place] [address] Care Team Providers Care Stemmer Machine Name Role Phone Brandyn Pagan MD Primary Care Provider Unavaila Radha Fink NP Unavailable Unavailable Unknown Pcp, Non Rmg Primary Care Provider Unava ilable Encounter Details Date Type Department Care Team (Late st Contact Info) Description 01/08/2016 Orders Only [facility] [address] [place] [phone] Brandyn Pagan MD Social History Tobacco Use [...] on filedocumented in this encounter Care Teams Stemmer Machine Relationship Specialty Start Date End Date Brandyn Pagan MD PCP - General Internal Medicine 08/07/15 02/02/17 Radha Spangler NP PCP - Backup PCP Internal Medicine 01/11/16 02/02/17 Unknown Pcp, Non Rmg PCP - General 02/03/17 documented as of this encounter
--- OUTSIDE RECORDS SUMMARY | 2024-09-05 07:27 | XMS_ITS | Encounter Summary ---
Author Organization [facility] Address [address] [place] [address] Care Team Providers Care Video Machines Mechanic Name Role Phone Unknown Pcp, Non Rmg Primary Care Provider Unava ilable Encounter Details Date Type Department Care Team (Late st Contact Info) Description 02/03/2017 Orders Only [facility] [address] [place] [phone] Unknown Pcp, Non Rmg Social History Tobacco [...] on filedocumented in this encounter Care Teams Video Machines Mechanic Relationship Specialty Start Date End Date Unknown Pcp, Non Rmg PCP - General 02/03/17 documented as of this encounter
--- OUTSIDE RECORDS SUMMARY | 2024-09-05 07:27 | XMS_ITS | Encounter Summary ---
Author Organization [facility] Address [address] [place] [address] Care Team Providers Care Hospital Scientist Name Role Phone Brandyn Pagan MD Primary Care Provider Unavaila Radha Fink NP Unavailable Unavailable Unknown Pcp, Non [facility] Primary Care Provider Unava ilable Encounter Details Date Type Department Care Team (Late st Contact Info) Description 12/05/2016 Orders Only [facility] [address] [place] [phone] Brandyn Pagan MD Social History Tobacco Use [...] Cervicalgia documented in this encounter Care Teams Hospital Scientist Relationship Specialty Start Date End Date Brandyn Pagan MD PCP - General Internal Medicine 08/07/15 02/02/17 Radha Spangler NP PCP - Backup PCP Internal Medicine 01/11/16 02/02/17 Unknown Pcp, Non [facility] [place] - General 02/03/17 documented as of this encounter
--- OUTSIDE RECORDS SUMMARY | 2024-09-05 07:27 | XMS_ITS | Encounter Summary ---
Author Organization [facility] Address [address] [place] [address] Care Team Providers Care Furniture Assembler Name Role Phone Brandyn Pagan MD Primary Care Provider Unavaila Radha Fink NP Unavailable Unavailable Unknown Pcp, Non [facility] Primary Care Provider Unava ilable Encounter Details Date Type Department Care Team (Late st Contact Info) Description 12/02/2016 Orders Only [facility] [address] [place] [phone] Brandyn Pagan MD Social History Tobacco Use [...] Cervicalgia documented in this encounter Care Teams Furniture Assembler Relationship Specialty Start Date End Date Brandyn Pagan MD PCP - General Internal Medicine 08/07/15 02/02/17 Radha Spangler NP PCP - Backup PCP Internal Medicine 8/22/16 9/14/17 Unknown Pcp, Non Rmg PCP - General 02/03/17 documented as of this encounter
--- OUTSIDE RECORDS SUMMARY | 2024-09-05 07:27 | XMS_ITS | Encounter Summary ---
Author Organization [facility] Address [address] [place] [address] Care Team Providers Care Barrel Coater Name Role Phone Brandyn Pagan MD Primary Care Provider Unavaila Radha Fink NP Unavailable Unavailable Unknown Pcp, Non Rmg Primary Care Provider Unava ilable Encounter Details Date Type Department Care Team (Late st Contact Info) Description 06/09/2016 Orders Only [facility] [address] [place] [phone] Radha Spangler NP Social History Tobacco Use [...] in this encounter Results * Due to [facility] law, this organization might not be [...] approximately 13% higher for people identified as -Kenyan. GFR 42(L) > OR = 60 mL/min/1. [...] needs for GFR calculation. Resulting Agency Comment [id number] us Radha Spangler NP LABORATORY Final Result Performing Organization Address [facility] Co de Phone Number [facility] [address] [place] [address] * ALANINE AMINOTRANSFERASE (ALT), SERUM (06/09/2016 11:23 AM EST) ALT (SGPT) 25 6 - 29 U/L [facility] 06/09/2016 11:2 3 AM EST 06/09/2016 4:58 PM EST Narrative Resulting Agency Comment [id number] Radha Spangler NP LAB SAME DAY RESULT Final Re sult Performing Organization Address [facility] de Phone Number [facility] [address] [place] [address] * (ABNORMAL) LIPID PANEL WITH REFLEX TO [...] 4:58 PM EST Narrative Resulting Agency Comment [id number] us Radha Spangler NP LABORATORY Final Result Performing Organization Address [facility] Co de Phone Number [facility] [address] [place] [address] documented in this encounter Visit Diagnoses Diagnosis Hyperlipidemia, unspecified hyperlipidemia type Essential hypertension with goal blood pressure less than 140/90 documented in this encounter Care Teams Barrel Coater Relationship Specialty Start Date End Date Brandyn Pagan MD PCP - General Internal Medicine 08/07/15 02/02/17 Radha Spangler NP PCP - Backup PCP Internal Medicine 01/11/16 02/02/17 Unknown Pcp, Non [facility] PCP - General 02/03/17 documented as of this encounter
--- OUTSIDE RECORDS SUMMARY | 2024-09-05 07:27 | XMS_ITS | Encounter Summary ---
Author Organization [facility] Address [address] [place] [address] Care Team Providers Care Retail Assistant Manager Name Role Phone Unknown Pcp, Non Rmg [...] Date Expiration Date Visits Requested Visits Authorized [id number] Canceled Service Not Available at Clinic 02/03/2017 1 1 Question Answer When do you want this visit to occur? FIRST ROUTINE AVAILABLE - ass soon as possible patient moving to [facility] Patient is being referred outside of [facility] for the following reason, however final determination for [id number] requests are made by the Referral Management Department [facility] Order? No Encounter Details Date Type Department Care Team (Late st Contact Info) Description 02/03/2017 Orders Only [facility] [address] [place] [phone] Brandyn Pagan MD Social History Tobacco Use [...] chronicity documented in this encounter Care Teams Retail Assistant Manager Relationship Specialty Start Date End Date Unknown Pcp, Non Rmg PCP - General 02/03/17 documented as of this encounter
--- OUTSIDE RECORDS SUMMARY | 2024-09-05 07:27 | XMS_ITS | Encounter Summary ---
Author Organization [facility] Address [address] [place] [address] Care Team Providers Care Hand Etcher Helper Name Role Phone Brandyn Pagan MD Primary Care Provider Unavaila Radha Fink NP Unavailable Unavailable Unknown Pcp, Non [facility] Primary Care Provider Unava ilable Encounter Details Date Type Department Care Team (Late st Contact Info) Description 09/21/2016 Orders Only [facility] Pre-Admission Testing [address] [place] [address] Filiberto May MD [address] [place] [address] Social History Tobacco Use Types Packs/Day Years [...] this encounter Procedures * Due to [place] state law, this organization might not be sharing negative HIV tests. Procedure Name Priority Date/Time Associated Diagnosis Comments BASIC METABOLIC PANEL WITH (GFR) Routine 09/21/2016 1:41 PM EDT BILLIE (obstructive sleep apnea) documented in this encounter Results * Due to [place] state law, [...] approximately 13% higher for people identified as -Tristanian. GFR 50(L) > OR = 60 mL/min/1. [...] needs for GFR calculation. Resulting Agency Comment [id number] us Filiberto May MD LABORATORY Final Result [facility] [address] [place] [address] documented in this encounter Visit Diagnoses Diagnosis BILLIE (obstructive sleep apnea) Obstructive sleep apnea (adult) (pediatric) documented in this encounter Care Teams Hand Etcher Helper Relationship Specialty Start Date End Date Brandyn Pagan MD PCP - General Internal Medicine 08/07/15 02/02/17 Radha Spangler NP PCP - Backup PCP Internal Medicine 01/11/16 02/02/17 Unknown Pcp, Non [facility] PCP - General 02/03/17 documented as of this encounter
--- OUTSIDE RECORDS SUMMARY | 2024-09-05 07:27 | XMS_ITS | Clinical Summary ---
Author Organization [facility] shoply & [facility] [employer] Address [address] [place] [address] Care Team Providers Care Project Controller Name Role Phone Pcp, No Primary Care Provider [phone] Social History Tobacco Use Types Packs/Day Years [...] Adults 18 yrs or above (or HM Modifier)([facility]) 1969 Hepatitis C Virus Infection in Adolescents and Adults: Screening (or Modifier) ([facility]) 1969 SDOH Screening Reminder: Corry ivy for all adults ([facility]) 1969 Tobacco Smoking Cessation: i n Adults excluding Women: Behavioral and Pharmacotherapy Interventions ([facility]) 1969 DTaP/Tdap/Td Vaccines ([facility]) (1 - Tdap) 1970 Colorectal Cancer Screening 45 -75 Yrs (or HM Modifier ) 1996 Colorectal Cancer: FLEXIBLE SIGMOIDOSCOPY Screening every 5 yrs 1996 Colorectal Cancer: Fecal Imm unochemical Test (FIT) Annually [facility] 1996 Colorectal Cancer: High-sens itivity gFOBT Screening Annually [facility] 1996 Colorectal Cancer: Stool Col oguard Screening every 3 yrs 1996 Colorectal Cancer:CT Colonography Screening every 5 yr s 1996 Lipid Screening: Every 5 yrs for Women aged 45+ (or HM Modifier) ([facility]) 1997 Breast Cancer: Screening Corry ually age 50-74 yrs (or HM Modifier)([facility]) 2001 Pneumococcal Vaccination Scr eening: Patients 50+ yrs of age ([facility]) (1 of 1 - PCV) 2001 Zoster/Shingles Vaccine Seri es Screening: Adults aged 18+ yrs (or HM Modifiers)([facility]) (1 of 2) 2001 Osteoporosis Screening to Pr event Fractures: Women aged 65 years+ ([facility]) 2016 Flu Vaccination: Ages 65+: Y early High Dose Recommended (or Modifier)([facility]) 12/21/2023 COVID-19 Vaccine Screening: Initial Series and Booster Status ([facility]) ( - 2023-25 season) 2024 RSV Vaccines (1 - 1-dose 75+ series) 2026 Medical Devices Not on file Insurance Care Teams Project Controller Relationship Specialty Start Date End Date Pcp, No PCP - General Family Medicine 08/15/20
--- OUTSIDE RECORDS SUMMARY | 2024-09-05 07:27 | XMS_ITS | Encounter Summary ---
Author Organization [facility] Address [address] [place] [address] Care Team Providers Care Careers Counsellor Name Role Phone Brandyn Pagan MD Primary Care Provider UnavailRadha Mas NP Unavailable Unavailable Unknown Pcp, Non Rmg Primary Care Provider Unava ilable Encounter Details Date Type Department Care Team (Late st Contact Info) Description 03/09/2016 Orders Only [facility] [address] [place] [address] Brandyn Pagan MD Social History Tobacco Use [...] this encounter Procedures * Due to [place] [employer] law, this organization might not be sharing negative HIV tests. Procedure Name Priority Date/Time Associated Diagnosis Comments CLOSTRIDIUM DIFFICILE TOXIN/GDH WITH REFLEX TO PCR Routine 03/09/2016 12:41 PM EDT Diarrhea, unspecified type documented in this encounter Results * Due to [place] [employer] law, this organization might not be sharing negative HIV tests. * CLOSTRIDIUM DIFFICILE TOXIN/GDH WITH REFLEX TO PCR (03/09/2016 12:41 PM EDT) Clostridium Difficile (Stool) SEE NOTE [facility] Comment: {CLOSTRIDIUM DIFFICILE TOXIN/GDH W/REFL TO PCR {[id number]) ??CLOSTRIDIUM DIFFICILE TOXIN/GDH W/REFL TO PCR ??MICRO NUMBER: ?[id number] ??TEST STATUS: ? FINAL ??SPECIMEN SOURCE: ?? STOOL ??SPECIMEN QUALITY: ??ADEQUATE ??GDH ANTIGEN: ? Not Detected ??TOXIN A AND B: ? Not Detected ??COMMENT: ? No toxigenic C. difficile detected 03/09/2016 12:4 1 PM EDT 03/09/2016 7:22 PM EDT Narrative Resulting Agency Comment [id number] Brandyn Pagan MD LABORATORY Final Result [facility] [address] [place] [address] documented in this encounter Visit Diagnoses Diagnosis Diarrhea, unspecified type documented in this encounter Care Teams Careers Counsellor Relationship Specialty Start Date End Date Brandyn Pagan MD PCP - General Internal Medicine 08/07/15 02/02/17 Radha Spangler NP PCP - Backup PCP Internal Medicine 01/11/16 02/02/17 Unknown Pcp, Non Rmg PCP - General 02/03/17 documented as of this encounter
--- OUTSIDE RECORDS SUMMARY | 2024-09-05 07:28 | XMS_ITS | Encounter Summary ---
Author Organization [facility] Address [address] [place] [address] Care Team Providers Care Duplicator Punch Operator Name Role Phone Bijal Fox ARCHITECTURAL MODEL MAKER Primary Care Provider [phone] Encounter Details Date Type Department Care Team (Late st Contact Info) Description 01/13/2021 Orders Only [facility] - External Imaging [address] [place] [address] Radiology, External [address] [place] [address] Social History Tobacco Use Types Packs/Day Years Used Date Smoking Tobacco: Former Comments:: [facility] Utilities Answer Date Recorded In the past [...] your living situation today? [facility] 06/03/2024 Comments Unknown Sex and Gender Information Value Date Recorded Sex Assigned at Female 03/06/2021 4:31 PM EDT Legal Sex Female 1:53 AM EDT Gender Identity Female 03/06/2021 4:31 PM EDT Sexual Orientation Straight 03/06/2021 4: 31 PM EDT documented as of this encounter Plan of Treatment Upcoming Encounters Date Type Department Care Team (Latest Contact Info) Description 09/18/2024 11:00 AM EDT Follow-Up [facility] [address] [place] [address] Marvin, AYAD Gil [address] [place] [address] 09/23/2024 1:30 PM EDT Appointment [facility] Pre-Testing Department [address] [place] [address] 09/30/2024 10:55 AM EDT Hospital Encounter [facility] OR [address] [place] [address] 20[address] Nima Solorio MD [address] [place] [address] 16[address] 09/30/2024 10:55 AM EDT - 09/30/2024 11:24 AM EDT Surgery [facility] OR [address] [place] [address] 8[address]11 Nima Solorio MD [address] [place] [address] 60935 CATARACT EXTRACTION WITH INSERTION OF INTRAOCULAR LENS IMPLANT [[id number] (CPT??)] 10/03/2024 3:00 PM EDT Follow-Up [facility] Nephrology [address] [place] [address] 40737 John Hendricks MD [address] [place] [address] 94[address] 10/21/2024 10:20 AM EDT Hospital Encounter [facility] OR [address] [place] [address] 45204 Nima Solorio MD [address] [place] [address] 211[address] 10/21/2024 10:20 AM EDT - 10/21/2024 10:49 AM EDT Surgery [facility] OR [address] [place] [address] Nima Solorio MD [address] [place] [address] 12463 CATARACT EXTRACTION WITH INSERTION OF INTRAOCULAR LENS IMPLANT [[id number] (CPT??)] 01/08/2025 10:00 AM EDT Follow-Up [address] Cardiology [address] [place] [address] Mabel Onofre NP [address] [place] [address] Pending Results Name Type Priority Associated Diagnoses Date /Time TRUDI Transfer of Outside Films Imaging Routine 09/02/2024 2:05 PM EDT Scheduled Orders Name Type Priority Associated Diagnoses Orde r Schedule TRUDI Transfer of Outside Films Imaging Routine [address] [facility] 09/02/2024 until 11/02/2025 Scheduled Procedures Name Priority Associated Diagnoses Date/Ti me CATARACT EXTRACTION WITH INSERTION OF INTRAOCULAR LENS IMPLANT Cataract of left eye present 09/30/2024 10:55 AM EDT CATARACT EXTRACTION WITH INSERTION OF INTRAOCULAR LENS IMPLANT Cataract of right eye present 10/21/2024 10:20 AM EDT REPAIR, FLEXOR TENDON, FOOT, PRIMARY OR SECONDARY, WITHOUT GRAFT, EACH TENDON Posterior tibial tendon dysfunction (PTTD) of left lower extremity Pre-op evaluation Pes planus of left foot Chronic pain of left ankle TENOLYSIS, FLEXOR, FOOT, MULTIPLE TENDONS Posterior tibial tendon dysfunction (PTTD) of left lower extremity Pre-op evaluation Pes planus of left foot Chronic pain of left ankle documented as of this encounter Visit Diagnoses Not on filedocumented in this encounter Additional Health Concerns Infection Onset Date Last Indicated Resolved Time R/O Respiratory Virus Infection 06/03/2024 06/03/2024 3:48 PM EST R/O Influenza 06/03/2024 06/03/2024 06/03/2024 3:4 8 PM EST COVID-19 - Suspected infection 06/03/2024 06/03/2024 06/03/2024 3:48 PM EST R/O Respiratory Virus Infection 06/15/2024 06/15/2024 8:48 PM EST R/O Influenza 06/15/2024 06/15/2024 06/15/2024 8:4 8 PM EST COVID-19 - Suspected infection 06/15/2024 06/15/2024 06/15/2024 8:48 PM EST documented as of this encounter Care Teams Duplicator Punch Operator Relationship Specialty Start Date End Date Bijal Fox, ARCHITECTURAL MODEL MAKER [address] [place] [address] PCP - General Family Medicine 05/30/24 documented as of this encounter
--- OUTSIDE RECORDS SUMMARY | 2024-09-05 07:28 | XMS_ITS | Encounter Summary ---
Author Organization [facility] Address [address] [place] [address] Care Team Providers Care Nremt Name Role Phone Bijal Fox DIRECTOR CARDIOVASCULAR Primary Care Provider [phone] Encounter Details Date Type Department Care Team (Late st Contact Info) Description 07/04/2024 Orders Only [facility] Lab [address] [place] [address] Magy Sawyer NP 100 [facility] [address] [place] [address] [id number] Hyperlipidemia, unspecified hyperlipidemia type (Primary Dx); Myxedema heart disease Social History Tobacco Use Types Packs/Day Years Used Date Smoking Tobacco: Former Smokeless Tobacco: Never Comments:: Alcohol Use Standard Drinks/Week Comments Not Currently 0 (1 standard drink = 0.6 oz pur e alcohol) [facility] Utilities Answer Date Recorded In the past 12 months has th e [employer], gas, oil, or water [employer] threatened to shut off services in your [...] Info) Description 09/18/2024 11:00 AM EDT Follow-Up [facility] [address] [place] [address] MarvinJeffery PA [address] [place] [address] 09/23/2024 1:30 PM EDT Appointment [facility] Pre-Testing Department [address] [place] [address] 09/30/2024 10:55 AM EDT Hospital Encounter [facility] OR [address] [place] [address] 6[address] Nima Solorio MD [address] [place] [address] 09/30/2024 10:55 AM EDT - 09/30/2024 11:24 AM EDT Surgery [facility] OR [address] [place] [address] Nima Solorio MD [address] [place] [address] 33219 CATARACT EXTRACTION WITH INSERTION OF INTRAOCULAR LENS IMPLANT [[id number] (CPT??)] 10/03/2024 3:00 PM EDT Follow-Up [facility] Nephrology [address] [place] [address]6065 John Hendricks MD [address] [place] [address] [place] [address] 10/21/2024 10:20 AM EDT Hospital Encounter [facility] OR [address] [place] [address] Nima Solorio MD [address] [place] [address] 10/21/2024 10:20 AM EDT - 10/21/2024 10:49 AM EDT Surgery [facility] OR [address] [place] [address] Nima Solorio MD [address] [place] [address]40 CATARACT EXTRACTION WITH INSERTION OF INTRAOCULAR LENS IMPLANT [[id number] (CPT??)] 01/08/2025 10:00 AM EDT Follow-Up [address] Cardiology [address] [place] [address] Mabel Onofre NP [address] [place] [address] Scheduled Procedures Name Priority Associated Diagnoses Date/Ti [...] left ankle documented as of this encounter Results * Due to [place] state law, this organization might not be sharing negative HIV tests. * T4, Free (07/13/2024 10:20 AM EST) Free T4 1.24 0.80 - 1.80 ng/dL 07/13/2024 11:15 AM EST [facility] Comment: Females: (ng/dL) First Trimester [...] ORDERABLES Final Res ult Performing Organization Address [facility] de Phone Number [facility] [address] [place] [address], * TSH (07/13/2024 10:20 AM EST) Pathologist [facility] TSH 3.750 0.270 - 4.200 uIU/mL 07/13/2024 11:15 AM EST [facility] Comment: Females: 1st trimester ? 0.150-4.000 ??IU/mL 2nd trimester ?? 0.310-4.170 ?IU/mL 3rd trimester ?0.380-4.150 ?IU/mL Blood Structure of peripheral vein / Unknown Venipuncture / Unknown 07/13/2024 10:20 AM EST 07/13/2024 10:29 AM EST us Magy Sawyer NP LAB BLOOD ORDERABLES Final Res ult Performing Organization Address [facility] de Phone Number [facility] [address] [place] [address], [place] [phone] * (ABNORMAL) Comprehensive Metabolic Panel (07/13/2024 10:20 AM EST) NA 142 136 - 145 mmol/L 07/13/2024 11:15 AM EST [facility] K 4.6 3.5 - 5.1 mmol/L 07/13/2024 11:15 AM EST [facility] Cl 104 98 - 109 mmol/L 07/13/2024 11:15 AM EST [facility] CO2 28 22 - 32 mmol/L 07/13/2024 11:15 AM [facility] Anion Gap 15 >=0 07/13/2024 11:15 AM [facility] Glucose 94 60 - 99 mg/dL 07/13/2024 11:15 AM [facility] Creatinine 1.40(H) 0.50 - 1.12 mg/dL 07/13/2024 11:15 AM [facility] Calcium 9.4 8.4 - 10.4 mg/dL 07/13/2024 11:15 AM [facility] Total Protein 6.4(L) 6.6 - 8.7 g/dL 07/13/2024 11:15 AM [facility] Albumin 3.7 3.5 - 5.0 g/dL 07/13/2024 11:15 AM [facility] Bilirubin, Total 0.4 0.2 - 1.2 mg/dL 07/13/2024 11:15 AM [facility] Alkaline Phosphatase 113 40 - 129 U/L 07/13/2024 11:15 AM [facility] AST 25 0 - 33 U/L 07/13/2024 11:15 AM [facility] ALT 33 <=33 U/L 07/13/2024 11:15 AM [facility] BUN 20 8 - 23 mg/dL 07/13/2024 11:15 AM [facility] eGFR 40(L) >=60 mL/min/1. 73m2 07/13/2024 11:15 AM EST [facility] Comment:The estimated glomer ular filtration [...] - 4.2 g/dL 07/13/2024 11:15 AM EST [facility] A/G Ratio 1.4(L) 1.5 - 3.0 07/13/2024 11:15 AM EST [facility] Blood Structure of peripheral vein / Unknown Venipuncture / Unknown 07/13/2024 10:20 AM EST 07/13/2024 10:29 AM EST us Magy Sawyer NP LAB BLOOD ORDERABLES Final Res ult Performing Organization Address City/State/[facility] Co de Phone Number [facility] [address] [facility] [address] [place] [address], [place] [phone] * Lipid panel (07/13/2024 10:20 AM EST) Cholesterol 259 mg/dL 07/13/2024 11:15 AM EST [facility] Comment: DESIRABLE: <200 mg/dL BORDERLINE HIGH: 200-239 mg/dL HIGH: >239 mg/dL Triglycerides 123 mg/dL 07/13/2024 11:15 AM EST [facility] Comment: NORMAL: <150 mg/dL BORDERLINE HIGH: 150-199 mg/dL HIGH: 200-499 mg/dL VERY HIGH >499 mg/dL Cholesterol, HDL 72 mg/dL 07/13/19 11:15 AM EST [facility] Comment: DESIRABLE: >60 mg/dL BORDERLINE: 40-59 mg/dL UNDESIRABLE: <40 mg/dL LDL Cholesterol 162 mg/dL 11:15 AM EST [facility] Comment: OPTIMAL: <100 mg/dL NEAR OPTIMAL: <130 mg/dL BORDERLINE HIGH: 130-159 mg/dL HIGH: 160-189 mg/dL VERY HIGH: >189 mg/dL VLDL 24.6 mg/dL 07/13/2024 11:15 AM EST [facility] Cholesterol/HDL Ratio 3.6 07/13/2024 11:15 AM EST [facility] Blood Structure of peripheral vein / Unknown Venipuncture / Unknown 07/13/2024 10:20 AM EST 07/13/2024 10:29 AM EST us Magy Sawyer DIRECTOR CARDIOVASCULAR LAB BLOOD ORDERABLES Final Res ult [facility] [address] [facility] [address] [place] [address], documented in this encounter Visit Diagnoses Diagnosis Hyperlipidemia, unspecified hyperlipidemia type- Primary Myxedema heart disease Unspecified hypothyroidism Cataract of left eye present Cataract of right eye present documented in this encounter Care Teams Nremt Relationship Specialty Start Date End Date Bijal Fox NP 100 [facility] [address] [place] [address] PCP - General Family Medicine 05/30/24 documented as of this encounter
--- OUTSIDE RECORDS SUMMARY | 2024-09-05 07:28 | XMS_ITS | Encounter Summary ---
Author Organization [facility] Address [address] [place] [address] Care Team Providers Care Aviation Project Engineer Name Role Phone Bijal Fox CEREAL CHEMIST Primary Care Provider [phone] Encounter Details Date Type Department Care Team (Late st Contact Info) Description 07/04/2018 Orders Only [facility] - External Imaging [address] [place] [address] Radiology, External [address] [place] [address] Social History Tobacco Use Types Packs/Day Years Used Date Smoking Tobacco: Former Comments:: [facility] Utilities Answer [...] [facility] [address] [place] [address] Marvin, AYAD Gil [address] [place] [address] 09/23/2024 1:30 PM EDT Appointment [facility] Pre-Testing Department [address] [place] [address]85 09/30/2024 10:55 AM EDT Hospital Encounter [facility] OR [address] [place] [address] 81084 Nima Solorio MD [address] [place] [address] 09/30/2024 10:55 AM EDT - 09/30/2024 11:24 AM EDT Surgery [facility] OR [address] [place] [address] 6[address]16 Nima Solorio MD [address] [place] [address] 05808 CATARACT EXTRACTION WITH INSERTION OF INTRAOCULAR LENS IMPLANT [[id number] (CPT??)] 10/03/2024 3:00 PM EDT Follow-Up [facility] Nephrology [address] [place] [address] 52789 John Hendricks MD [address] [place] [address] 10/21/2024 10:20 AM EDT Hospital Encounter [facility] OR [address] [place] [address] 32881 Nima Solorio MD [address] [place] [address] 30989 10/21/2024 10:20 AM EDT - 10/21/2024 10:49 AM EDT Surgery [facility] OR [address] [place] [address] Nima Solorio MD [address] [place] [address] 62435 CATARACT EXTRACTION WITH INSERTION OF INTRAOCULAR LENS IMPLANT [[id number] (CPT??)] 01/08/2025 10:00 AM EDT Follow-Up [address] Cardiology [address] [address] Mabel Onofre NP [address] [place] [address] Pending Results Name Type Priority Associated Diagnoses Date /Time US BREAST COMPARISON IMAGES (OUTSIDE STUDY) Imaging Routine 2:07 PM EDT Scheduled Orders Name Type Priority Associated Diagnoses Orde r Schedule US BREAST COMPARISON IMAGES (OUTSIDE STUDY) Imaging Routine 1 Occurre nces starting 09/02/2024 until 11/02/2025 Scheduled Procedures Name Priority [...] Resolved Time R/O Respiratory Virus Infection 06/03/2024 5 06/03/2024 3:48 PM EST R/O Influenza 06/03/2024 06/03/2024 06/03/2024 3:4 8 PM EST COVID-19 - Suspected infection 06/03/2024 06/03/2024 06/03/2024 3:48 PM EST R/O Respiratory Virus Infection 06/15/2024 06/15/2024 8:48 PM EST R/O Influenza 06/15/2024 06/15/2024 06/15/2024 8:4 8 PM EST COVID-19 - Suspected infection 06/15/2024 06/15/2024 06/15/2024 8:48 PM EST documented as of this encounter Care Teams Aviation Project Engineer Relationship Specialty Start Date End Date Bijal Fxo, MEY [address] [place] [address] PCP - General Family Medicine 05/30/24 documented as of this encounter
--- OUTSIDE RECORDS SUMMARY | 2024-09-05 07:28 | XMS_ITS | Encounter Summary ---
Author Organization [facility] Address [address] [place] [address] Care Team Providers Care Wet End Helper Name Role Phone Bijal Fox MECHANICAL MAINTENANCE ENGINEER Primary Care Provider [phone] Encounter Details Date Type Department Care Team (Late st Contact Info) Description 07/04/2018 Orders Only [facility] - External Imaging [address] [place] [address] Radiology, External [address] [place] [address] Social History Tobacco Use Types Packs/Day Years Used Date Smoking Tobacco: Former Comments:: [facility] Utilities Answer Date Recorded In [...] Info) Description 09/18/2024 11:00 AM EDT Follow-Up [facility] [address] [place] [address] Marvin, AYAD Gil [address] [place] [address] 09/23/2024 1:30 PM EDT Appointment [facility] Pre-Testing Department [address] [place] [address] 09/30/2024 10:55 AM EDT Hospital Encounter [facility] OR [address] [place] [address] 7[address]26 Nima Solorio MD [address] [place] [address] 09/30/2024 10:55 AM EDT - 09/30/2024 11:24 AM EDT Surgery [facility] OR [address] [place] [address] 69627 Nima Solorio MD [address] [place] [address] 38406 CATARACT EXTRACTION WITH INSERTION OF INTRAOCULAR LENS IMPLANT [[id number] (CPT??)] 10/03/2024 3:00 PM EDT Follow-Up [facility] Nephrology [address] [place] [address] 8[address]12 John Hendricks MD [address] [place] [address] 10/21/2024 10:20 AM EDT Hospital Encounter [facility] OR [address] [place] [address] 45742 Nima Solorio MD [address] [place] [address] 13768 10/21/2024 10:20 AM EDT - 10/21/2024 10:49 AM EDT Surgery [facility] OR [address] [place] [address] Nima Solorio MD 100 [place] [address] CATARACT EXTRACTION WITH INSERTION OF INTRAOCULAR LENS IMPLANT [[id number] (CPT??)] 01/08/2025 10:00 AM EDT Follow-Up [facility] 100 [facility] Cardiology 100 [facility] [address] [place] [address] Mabel Onofre NP [address] [place] [address] [address] [place] [address] Pending Results Name Type Priority Associated Diagnoses Date /Time TRUDI Transfer of Outside Films Imaging Routine 09/02/2024 2:07 PM EDT Scheduled Orders Name Type Priority Associated Diagnoses Orde r Schedule TRUDI Transfer of Outside Films Imaging Routine [address] [facility] 09/02/2024 until 11/02/2025 Scheduled Procedures Name Priority [...] documented as of this encounter Care Teams Wet End Helper Relationship Specialty Start Date End Date Bijal Fox, MECHANICAL MAINTENANCE ENGINEER [address] [place] [address] PCP - General Family Medicine 05/30/24 documented as of this encounter
--- OUTSIDE RECORDS SUMMARY | 2024-09-05 07:28 | XMS_ITS | Encounter Summary ---
Author Organization [facility] Address [address] [place] [address] Care Team Providers Care Home Sales Service Professional Name Role Phone Brandyn Pagan MD Primary Care Provider Radha Cuevas NP Unavailable Unavailable Unknown Pcp, Non [facility] Primary Care Provider Unava ilable Encounter Details Date Type Department Care Team (Late st Contact Info) Description 10/06/2015 Orders Only [facility] [address] [place] [address] Brandyn Pagan MD Social History Tobacco Use [...] proper risk profile. I cannot run the [place] [employer] risk calculator. The decision related [...] this encounter Procedures * Due to [place] [employer] law, this organization might not be sharing [...] this encounter Results * Due to [place] [employer] law, this organization might not be sharing negative HIV tests. * (ABNORMAL) URINALYSIS, DIP ONLY ( SITE STAT ONLY) (10/06/2015 11:19 AM EDT) COLOR (URINE) YELLOW [facility] (CLIA# [id number]) APPEARANCE (URINE) CLOUDY [facility] (CLIA# [id number]) SPECIFIC GRAVITY 1.020 1.001 - 1.035 [facility] (CLIA# [id number]) PH (URINE) 5.0 5.0 - 8.0 [facility] (CLIA# [id number]) PROTEIN (URINE) TRACE(A) Neg [facility] (CLIA# [id number]) GLUCOSE (URINE) NEGATIVE Neg [facility] (CLIA# [id number]) Ketones (Urine) NEGATIVE Neg [facility] (CLIA# [id number]) BILIRUBIN (URINE) NEGATIVE Neg [facility] (CLIA# [id number]) BLOOD (URINE) NEGATIVE Neg [facility] (CLIA# [id number]) Leukocyte esterase (Urine) 1+(A) [facility] (CLIA# [id number]) NITRITE (URINE) POSITIVE(A) Neg [facility] (CLIA# [id number]) Urine specimen obtained by clean catch procedure (specimen) 10/06/2015 11:19 AM EDT Narrative [facility] (CLIA# [id number]) - 10/06/2015 11:19 AM EDT Micro and culture already ordered per provider. us Brandyn Pagan MD LAB SAME DAY RESULT Final Resul t [facility] (CLIA# [id number]) [address] [place] [address] * (ABNORMAL) CULTURE, URINE, ROUTINE (10/06/2015 10:11 AM EDT) Pathologist [facility] Bacteria culture (Urine) SEE NOTE(A) [facility] Comment: {CULTURE, URINE, ROUTINE {[id number]) ??CULTURE, URINE, ROUTINE ??MICRO NUMBER: ?[id number] ??TEST STATUS: ? FINAL ??SPECIMEN SOURCE: ?? [...] 6:19 PM EDT Narrative Resulting Agency Comment [id number] Brandyn Pagan MD LABORATORY Final Result Performing Organization Address City/State/[facility] Co de Phone Number [facility] [address] [place] [address] * (ABNORMAL) URINALYSIS, MICROSCOPIC (10/06/2015 10:11 AM EDT) WBC (Urine) 20-40(A) < OR = 5 /HPF [facility] Comment:{WBC {[id number]) RBC (Urine Sed) 0-2 < OR = 2 /HPF [facility] Comment:{RBC {[id number]) Epithelial cells.squamous (Urine sed) NONE SEEN < OR = 5 /HPF [facility] Comment:{SQUAMOUS EPITHELIAL CELLS {[id number]) Bacteria (Urine) MANY(A) NONE SEEN /HPF [facility] Comment:{BACTERIA {[id number]) Hyaline casts (Urine sed) NONE SEEN NONE SEEN /LPF [facility] Comment:{HYALINE CAST {[id number]) 10/06/2015 10:1 1 AM EDT 10/06/2015 6:19 PM EDT Narrative Resulting Agency Comment [id number] Brandyn Pagan MD LAB SAME DAY RESULT Final Resul t Performing Organization Address City/[facility] Co de Phone Number [facility] [address] [place] [address] * GLUCOSE (BLOOD) (10/06/2015 10:11 AM EDT) Glucose 86 65 - 99 mg/dL [facility] Comment: {GLUCOSE {[id number]) ? Fasting reference interval 10/06/2015 10:1 1 AM EDT 10/06/2015 6:19 PM EDT Narrative Resulting Agency Comment [id number] Brandyn Pagan MD LAB SAME DAY RESULT Final Resul t Performing Organization Address [facility] de Phone Number [facility] [address] [place] [address] * (ABNORMAL) LIPID PANEL WITH REFLEX TO DIRECT LDL (10/06/2015 10:11 AM EDT) Cholesterol 243(H) 125 - 200 mg/dL [facility] Comment:{CHOLESTEROL, TOTAL {[id number]) HDL Cholesterol 71 > OR = 46 mg/dL [facility] Comment:{HDL CHOLESTEROL {[id number]) Triglyceride 163(H) <150 mg/dL [facility] Comment:{TRIGLYCERIDES {[id number]) LDL Cholesterol 139(H) <130 mg/dL (calc) [facility] Comment: {LDL-CHOLESTEROL {[id number]) Desirable range <100 mg/dL for patients with CHD or diabetes and <70 mg/dL for diabetic patients with known heart disease. CHOL/HDL Ratio 3.4 < OR = 5.0 (calc) [facility] Comment:{CHOL/HDLC RATIO {[id number]) Cholesterol Non-HDL 172(H) mg/dL (calc) [facility] Comment: {NON HDL CHOLESTEROL {[id number]) Target for non-HDL cholesterol is 30 mg/dL higher than LDL cholesterol target. 10/06/2015 10:1 1 AM EDT 10/06/2015 6:19 PM EDT Narrative Resulting Agency Comment [id number] Brandyn Pagan MD LABORATORY Final Result Performing Organization Address City/State/[facility] Co de Phone Number [facility] [address] [place] [address] documented in this encounter Visit Diagnoses Diagnosis Lipid screening Screening for lipoid disorders Screening for cardiovascular condition Screening for other and unspecified cardiovascular conditions Screening for diabetes mellitus Urinary tract infection, site unspecified documented in this encounter Care Teams Home Sales Service Professional Relationship Specialty Start Date End Date Brandyn Pagan MD PCP - General Internal Medicine 08/07/15 02/02/17 Radha Spangler NP PCP - Backup PCP Internal Medicine 01/11/16 02/02/17 Unknown Pcp, Non [facility] PCP - General 02/03/17 documented as of this encounter
--- OUTSIDE RECORDS SUMMARY | 2024-09-05 07:28 | XMS_ITS | Encounter Summary ---
Author Organization [facility] Address [address] [place] [address] Care Team Providers Care Stock Saw Operator Name Role Phone Bijal Fox PST SUPERVISOR Primary Care Provider [phone] Encounter Details Date Type Department Care Team (Late st Contact Info) Description 07/16/2024 Lab Requisition [facility] [address] [place] [address] Bijal Fox, PST SUPERVISOR [address] [facility] [address] [place] [address] Urinary tract infection, site not specified Social History Tobacco Use Types Packs/Day Years Used Date Smoking Tobacco: Former Smokeless Tobacco: Never Comments:: Alcohol Use Standard Drinks/Week Comments Not Currently 0 (1 standard drink = 0.6 oz pur e alcohol) [facility] Utilities Answer Date Recorded In the [...] Info) Description 09/18/2024 11:00 AM EDT Follow-Up [facility] [address] [place] [address] Marvin, AYAD Gil [address] [place] [address] 424[address] 09/23/2024 1:30 PM EDT Appointment [facility] Pre-Testing Department [address] [place] [address] 09/30/2024 10:55 AM EDT Hospital Encounter [facility] OR [address] [place] [address] Nima Solorio MD [address] [place] [address] 99292 09/30/2024 10:55 AM EDT - 09/30/2024 11:24 AM EDT Surgery [facility] OR [address] [place] [address] 19058 Nima Solorio MD [address] [place] [address] 47353 CATARACT EXTRACTION WITH INSERTION OF INTRAOCULAR LENS IMPLANT [[id number] (CPT??)] 10/03/2024 3:00 PM EDT Follow-Up [facility] Nephrology [address] [place] [address]352 John Hendricks MD [address] [place] [address] 85305 10/21/2024 10:20 AM EDT Hospital Encounter [facility] OR [address] [place] [address]65 Nima Solorio MD [address] [place] [address] 048[address] 10/21/2024 10:20 AM EDT - 10/21/2024 10:49 AM EDT Surgery [facility] OR [address] [place] [address] 58021 Nima Solorio MD [address] [place] [address] 76581 CATARACT EXTRACTION WITH INSERTION OF INTRAOCULAR LENS IMPLANT [[id number] (CPT??)] 01/08/2025 10:00 AM EDT Follow-Up [address] Cardiology [address] [place] [address] 1945[address] Mabel Onofre NP [address] [place] [address] Scheduled Procedures Name Priority Associated Diagnoses Date/Ti [...] left ankle documented as of this encounter Procedures * Due to [place] state law, this organization might not be sharing negative HIV tests. Procedure Name Priority Date/Time Associated Diagnosis Comments URINE CULTURE, ROUTINE Routine 07/16/2024 12:33 PM EST Urinary tract infection, site not specified documented in this encounter Results * Due to [place] state law, this organization might not be sharing negative HIV tests. * (ABNORMAL) Urine Culture, Routine (07/16/2024 12:33 PM EST) Urine Culture >100,000 CFU/mL Escherichia coli(A) MINIMUM INHIBITORY CONCENTRATION (VLADIMIR) 07/18/2024 7:44 AM EST [facility] Urine Urine specimen collection, clean [...] MICROBIOLOGY - GENERAL MICHAEL CALHOUN Final Result [facility] [address] [place] [address] [address] [place] [address], [place] [phone] documented in this encounter Visit Diagnoses Diagnosis Urinary tract infection, site not specified Cataract of left eye present Cataract of right eye present documented in this encounter Care Teams Stock Saw Operator Relationship Specialty Start Date End Date Bijal Fox, PST SUPERVISOR [address] [place], [place] [address] [place] [address] PCP - General Family Medicine 05/30/24 documented as of this encounter
--- OUTSIDE RECORDS SUMMARY | 2024-09-05 07:28 | XMS_ITS | Encounter Summary ---
Author Organization [facility] Address [address] [place] [address] Care Team Providers Care Director Operating Name Role Phone Bijal Fox HISTOTECHNOLOGIST Primary Care Provider [phone] Encounter Details Date Type Department Care Team (Late st Contact Info) Description 06/23/2024 Lab Requisition [facility] [address] [place] [address] Mj Mendenhall MD [address] [place] [address] Pneumonia due to other specified infectious organisms Social History Tobacco Use Types Packs/Day Years Used Date Smoking Tobacco: Former Smokeless Tobacco: Never Comments:: Alcohol Use Standard Drinks/Week Comments Not Currently 0 (1 standard drink = 0.6 oz pur e alcohol) [facility] Utilities Answer [...] Info) Description 09/18/2024 11:00 AM EDT Follow-Up [facility] [address] [place] [address] Marvin, AYAD Gil [address] [place] [address] 71806 09/23/2024 1:30 PM EDT Appointment [facility] Pre-Testing Department [address] [place] [address] 79783 09/30/2024 10:55 AM EDT Hospital Encounter [facility] OR [address] [place] [address]33 Nima Solorio MD [address] [place] [address] 09/30/2024 10:55 AM EDT - 09/30/2024 11:24 AM EDT Surgery [facility] OR [address] [place] [address]34[address] Nima Solorio MD [address] [place] [address] 15622 CATARACT EXTRACTION WITH INSERTION OF INTRAOCULAR LENS IMPLANT [[id number] (CPT??)] 10/03/2024 3:00 PM EDT [facility] Neph[facility] [address] [place] [address] 28798 John Hendricks MD [address] [place] [address] 60933 10/21/2024 10:20 AM EDT Hospital Encounter [facility] OR [address] [place] [address] 36543 Nima Solorio MD [address] [place] [address] 18006 10/21/2024 10:20 AM EDT - 10/21/2024 10:49 AM EDT Surgery [facility] OR [address] [place] [address] 79239 Nima Solorio MD [address] [place] [address] 74000 CATARACT EXTRACTION WITH INSERTION OF INTRAOCULAR LENS IMPLANT [[id number] (CPT??)] 01/08/2025 10:00 AM EDT Follow-Up [address] Building Cardiology [address] [place] [address] 459[address] Mabel Onofre NP [address] [place] [address] 28467 Scheduled Procedures Name Priority Associated Diagnoses Date/Ti [...] - 80.00 ng/mL 06/23/2024 8:52 AM EST [facility] Blood Structure of peripheral vein / Unknown 06/23/2024 6:00 AM EST 06/23/2024 7:54 AM EST us Mj Mendenhall MD LAB BLOOD ORDERABLES Final R esult Performing Organization Address City/State/[facility] Co de Phone Number [facility] [address] [facility] [address] [place] [address], documented in this encounter Visit Diagnoses Diagnosis Pneumonia due to other specified infectious organisms Cataract of left eye present Cataract of right eye present documented in this encounter Care Teams Director Operating Relationship Specialty Start Date End Date Bijal Fox NP 100 [facility] [address] [place] [address] PCP - General Family Medicine 05/30/24 documented as of this encounter
--- OUTSIDE RECORDS SUMMARY | 2024-09-05 07:28 | XMS_ITS | Encounter Summary ---
Author Organization [facility] Address [address] [place] [address] Care Team Providers Care Supervisor [employer] Name Role Phone Bijal Fox COMPUTER ENGINEERING TECHNOLOGIST Primary Care Provider [phone] Encounter Details Date Type Department Care Team (Late st Contact Info) Description 03/27/2023 Orders Only [facility] - External Imaging [address] [place] [address] Radiology, External [address] [place] [address] Social History Tobacco Use Types Packs/Day Years Used Date Smoking Tobacco: Former Comments:: [facility] Utilities Answer Date Recorded In [...] Info) Description 09/18/2024 11:00 AM EDT Follow-Up [facility] [address] [place] [address] Marvin, AYAD Gil [address] [place] [address] 09/23/2024 1:30 PM EDT Appointment [facility] Pre-Testing Department [address] [place] [address] 10856 09/30/2024 10:55 AM EDT Hospital Encounter [facility] OR [address] [place] [address] Nima Solorio MD [address] [place] [address] 39083 09/30/2024 10:55 AM EDT - 09/30/2024 11:24 AM EDT Surgery [facility] OR [address] [place] [address] 46839 Nima Solorio MD [address] [place] [address] 98510 CATARACT EXTRACTION WITH INSERTION OF INTRAOCULAR LENS IMPLANT [[id number] (CPT??)] 10/03/2024 3:00 PM EDT Follow-Up [facility] Nephrology [address] [place] [address]440 John Hendricks MD [address] [place] [address] 10/21/2024 10:20 AM EDT Hospital Encounter [facility] OR [address] [place] [address] 29991 Nima Solorio MD [address] [place] [address] 22570 10/21/2024 10:20 AM EDT - 10/21/2024 10:49 AM EDT Surgery [facility] OR [address] [place] [address] Nima Solorio MD [address] [place] [address] 08325 CATARACT EXTRACTION WITH INSERTION OF INTRAOCULAR LENS IMPLANT [[id number] (CPT??)] 01/08/2025 10:00 AM EDT Follow-Up [address] Cardiology [address] [place] [address] 13591 Mabel Onofre NP [address] [place] [address] Pending Results Name Type Priority Associated Diagnoses Date /Time TRUDI Transfer of Outside Films Imaging Routine 09/02/2024 2:05 PM EDT Scheduled Orders Name Type Priority Associated Diagnoses Orde r Schedule TRUDI Transfer of Outside Films Imaging Routine [address] [employer] 09/02/2024 until 11/02/2025 Scheduled Procedures Name Priority [...] documented as of this encounter Care Teams Supervisor [employer] Relationship Specialty Start Date End Date Bijal Fox, COMPUTER ENGINEERING TECHNOLOGIST [address] [place] [address] PCP - General Family Medicine 05/30/24 documented as of this encounter
--- OUTSIDE RECORDS SUMMARY | 2024-09-05 07:28 | XMS_ITS | Encounter Summary ---
Author Organization [facility] Address [address] [place] [address] Care Team Providers Care Hand Folder Name Role Phone Bijal Fox RN BUILDING Primary Care Provider [phone] Encounter Details Date Type Department Care Team (Late st Contact Info) Description 07/20/2024 Orders Only [facility] Site Department [address] [place] [address] Magy Sawyer NP [address] [phone] Swelling of limb (Primary Dx) Social History Tobacco Use Types Packs/Day Years Used Date Smoking Tobacco: Former Smokeless Tobacco: Never Comments:: Alcohol Use Standard Drinks/Week Comments Not Currently 0 (1 standard drink = 0.6 oz pur e alcohol) [facility] Utilities Answer Date Recorded In the [...] Info) Description 09/18/2024 11:00 AM EDT Follow-Up [facility] [address] [place] [address] Marvin, AYAD Gil [address] [place] [address] 09/23/2024 1:[address] [facility] Pre-Testing Department [address] [place] [address] 09/30/2024 10:55 AM EDT Hospital Encounter [facility] OR [address] [place] [address]47 Nima Solorio MD [address] [place] [address] 11031 09/30/2024 10:55 AM EDT - 09/30/2024 11:[address] [facility] OR [address] [place] [address]177 Nima Solorio MD [address] [place] [address] 20136 CATARACT EXTRACTION WITH INSERTION OF INTRAOCULAR LENS IMPLANT [[id number] (CPT??)] 10/03/2024 3:00 PM EDT Follow-Up [facility] Nephrology [address] [place] [address] John Hendricks MD [address] [place] [address] 13291 10/21/2024 10:20 AM EDT Hospital Encounter [facility] OR [address] [place] [address] Nima Solorio MD [address] [place] [address] 66194 10/21/2024 10:20 AM EDT - 10/21/2024 10:[address] [facility] OR [address] [place] [address] 60[address] Nima Solorio MD [address] [place] [address] 86619 CATARACT EXTRACTION WITH INSERTION OF INTRAOCULAR LENS IMPLANT [[id number] (CPT??)] 01/08/2025 10:00 AM EDT Follow-Up [address] Building Cardiology [address] [place] [address] Mabel Onofre NP [address] [place] [address]179 Scheduled Procedures Name Priority Associated Diagnoses Date/Ti [...] of this encounter Results * Due to [place] state law, this organization might not be sharing negative HIV tests. * N-terminal ProBrain Natriuretic Peptide - [facility]/LONI/Nicole Only (08/09/2024 1:16 PM EDT) Pro-B-Type Natriuretic Peptide 203 <=900 pg/mL 08/09/2024 2:31 PM EDT [facility] Comment: RULE IN CHF >/= 450 pg/mL for patients <50 years old RULE IN CHF >/= 900 pg/mL for patients 50-75 years old RULE IN CHF >/= 1800 pg/mL for patients >75 years old RULE OUT CHF </= 300 pg/mL (not age specific) Blood Structure of peripheral vein / Unknown Venipuncture / Unknown 08/09/2024 1:16 PM EDT 08/09/2024 1:33 PM EDT us Magy Sawyer RN BUILDING LAB BLOOD ORDERABLES Final Res ult [facility] [address] [facility] [address] [place] [address], documented in this encounter Visit Diagnoses Diagnosis Swelling of limb- Primary Cataract of left eye present Cataract of right eye present documented in this encounter Care Teams Hand Folder Relationship Specialty Start Date End Date Bijal Fox NP 100 [facility] [address] [place] [address] PCP - General Family Medicine 05/30/24 documented as of this encounter
--- OUTSIDE RECORDS SUMMARY | 2024-09-05 07:28 | XMS_ITS | Encounter Summary ---
Author Organization [facility] Address [address] [place] [address] Care Team Providers Care Validation Engineer Name Role Phone Bijal Fox NP Primary Care Provider [phone] Encounter Details Date Type Department Care Team (Late st Contact Info) Description 08/05/2024 Results Follow-Up [facility] Nephrology [address] [phone] John Hendricks MD [address] [address] Social History Tobacco Use Types Packs/Day Years [...] Miscellaneous Notes * Result Encounter Note - John Hendricks MD - 08/05/2024 10:22 PM EDT Please call patient for abnormal lab result/s. Some thinning of the kidneys that could be due to the kidney disease and with normal aging too. Some cysts on the left kidney -benign appearing. documented in this encounter Plan of Treatment Upcoming Encounters Date Type Department Care Team (Latest Contact Info) Description 09/18/2024 11:00 AM EDT Follow-Up [facility] [address] [place] [address] Marvin, AYAD Gil [address] [place] [address] 26795 09/23/2024 1:30 PM EDT Appointment [facility] Pre-Testing Department [address] [place] [address] 09/30/2024 10:55 AM EDT Hospital Encounter [facility] OR [address] [place] [address] Nima Solorio MD [address] [place] [address] 57271 09/30/2024 10:55 AM EDT - 09/30/2024 11:24 AM EDT Surgery [facility] OR [address] [place] [address] 832[address] Nima Solorio MD [address] [place] [address] 68054 CATARACT EXTRACTION WITH INSERTION OF INTRAOCULAR LENS IMPLANT [[id number] (CPT??)] 10/03/2024 3:00 PM EDT Follow-Up [facility] Nephrology [address] [place] [address] John Hendricks MD [address] [address] 10/21/2024 10:20 AM EDT Hospital Encounter [facility] OR [address] [place] [address] 41694 Nmia Solorio MD [address] [place] [address] 74692 10/21/2024 10:20 AM EDT - 10/21/2024 10:49 AM EDT Surgery [facility] OR [address] [place] [address] 28921 Nima Solorio MD [address] [place] [address] 58325 CATARACT EXTRACTION WITH INSERTION OF INTRAOCULAR LENS IMPLANT [76054 (CPT??)] 01/08/2025 10:00 AM EDT Follow-Up [address] Building Cardiology [address] [place] [address] Mabel Onofre NP [address] [place] [address] Scheduled Procedures Name Priority Associated Diagnoses Date/Ti [...] on filedocumented in this encounter Care Teams Validation Engineer Relationship Specialty Start Date End Date Bijal Fox NP [address] [place] [address]56 PCP - General Family Medicine 05/30/24 documented as of this encounter
--- OUTSIDE RECORDS SUMMARY | 2024-09-05 07:28 | XMS_ITS | Encounter Summary ---
Author Organization [facility] Address [address] [place] [address] Care Team Providers Care Porcelain Turner Name Role Phone Brandyn Pagan MD Primary Care Provider Radha Cuevas NP Unavailable Unavailable Unknown Pcp, Non [facility] Primary Care Provider Unava ilable Encounter Details Date Type Department Care Team (Late st Contact Info) Description 11/13/2015 Orders Only [facility] [address] [place] [address] Brandyn Pagan MD Social History Tobacco Use [...] this encounter Procedures * Due to [place] byyd law, this organization might not be sharing [...] this encounter Results * Due to [place] law, this organization might not be sharing negative HIV tests. * (ABNORMAL) URINALYSIS, DIP ONLY ( SITE STAT ONLY) (11/13/2015 1:00 PM EDT) COLOR (URINE) YELLOW [facility] (CLIA# [id number]) APPEARANCE (URINE) CLEAR [facility] (CLIA# [id number]) SPECIFIC GRAVITY 1.015 1.001 - 1.035 [facility] (CLIA# [id number]) PH (URINE) 6.0 5.0 - 8.0 [facility] (CLIA# [id number]) PROTEIN (URINE) NEGATIVE Neg [facility] (CLIA# [id number]) GLUCOSE (URINE) NEGATIVE Neg [facility] (CLIA# [id number]) Ketones (Urine) NEGATIVE Neg [facility] (CLIA# [id number]) BILIRUBIN (URINE) NEGATIVE Neg [facility] (CLIA# [id number]) BLOOD (URINE) NEGATIVE Neg [facility] (CLIA# [id number]) Leukocyte esterase (Urine) 1+(A) [facility] (CLIA# [id number]) NITRITE (URINE) NEGATIVE Neg [facility] (CLIA# [id number]) Urine specimen obtained by clean catch procedure (specimen) 11/13/2015 1:00 PM EDT Narrative [facility] (CLIA# [id number]) - 11/13/2015 1:00 PM EDT Micro and culture already ordered per provider. us Brandyn Pagan MD LAB SAME DAY RESULT Final Resul t [facility] (CLIA# [id number]) [address] [place] [address] * CREATINE KINASE (CK), SERUM (11/13/2015 12:24 PM EDT) CPK 143 29 - 143 U/L [facility] Comment:{CREATINE KINASE, TO KENZIE {[id number]) 11/13/2015 12:2 4 PM EDT 11/13/2015 10:19 PM EDT Narrative Resulting Agency Comment [id number] us Brandyn Pagan MD LAB SAME DAY RESULT Final Resul t Performing Organization Address [facility] de Phone Number [facility] [address] [place] [address] * ALANINE AMINOTRANSFERASE (ALT), SERUM (11/13/2015 12:24 PM EDT) ALT (SGPT) 29 6 - 29 U/L [facility] Comment:{ALT {[id number]) 11/13/2015 12:2 4 PM EDT 11/13/2015 10:19 PM EDT Narrative Resulting Agency Comment [id number] Brandyn Pagan MD LAB SAME DAY RESULT Final Resul t Performing Organization Address [facility] de Phone Number [facility] [address] [place] [address] * C-REACTIVE PROTEIN (CRP) - INFLAMMATION (11/13/2015 12:24 PM EDT) C reactive protein 0.28 <0.80 mg/dL [facility] Comment: {C-REACTIVE PROTEIN {[id number]) Please be advised that patients taking Carboxypenicillins may exhibit falsely decreased C-Reactive Protein levels due to an analytical interference in this assay. 11/13/2015 12:2 4 PM EDT 11/13/2015 10:19 PM EDT Narrative Resulting Agency Comment [id number] Brandyn Pagan MD LABORATORY Final Result Performing Organization Address [facility] de Phone Number [facility] [address] [place] [address] * ERYTHROCYTE SEDIMENTATION RATE (ESR), WESTERGREN (11/13/2015 12:24 PM EDT) Sedimentation Rate [place] (ESR) 6 < OR = 30 mm/h [facility] Comment:{SED RATE BY MODIFBILLIE D JAZMINEREN {[id number]) 11/13/2015 12:2 4 PM EDT 11/13/2015 10:19 PM EDT Narrative Resulting Agency Comment [id number] us Brandyn Pagan MD LAB SAME DAY RESULT Final Resul t [facility] [address] [place] [address] * (ABNORMAL) CULTURE, URINE, ROUTINE (11/13/2015 12:24 PM EDT) Bacteria culture (Urine) SEE NOTE(A) [facility] Comment: {CULTURE, URINE, ROUTINE {[id number]) ??CULTURE, URINE, ROUTINE ??MICRO NUMBER: ?[id number] ??TEST STATUS: ? FINAL ??SPECIMEN SOURCE: ?? [...] and P. mirabilis. ?PARENTERAL therapy: A cefazolin VLADMIIR of > 8 ?indicates resistance to parenteral cefazolin. ?An alternate test method must be performed to ?to confirm susceptibility to parenteral cefazolin. 11/13/2015 12:2 4 PM EDT 11/13/2015 10:19 PM EDT Narrative Resulting Agency Comment [id number] us Brandyn Pagan MD LABORATORY Final Result [facility] [address] [place] [address] * (ABNORMAL) URINALYSIS, MICROSCOPIC (11/13/2015 12:24 PM EDT) WBC (Urine) 10-20(A) < OR = 5 /HPF [facility] Comment:{WBC {[id number]) RBC (Urine Sed) NONE SEEN < OR = 2 /HPF [facility] Comment:{RBC {[id number]) Epithelial cells.squamous (Urine sed) 0-5 < OR = 5 /HPF [facility] Comment:{SQUAMOUS EPITHELIAL CELLS {[id number]) Bacteria (Urine) NONE SEEN NONE SEEN /HPF [facility] Comment:{BACTERIA {[id number]) Hyaline casts (Urine sed) NONE SEEN NONE SEEN /LPF [facility] Comment:{HYALINE CAST {[id number]) 11/13/2015 12:2 4 PM EDT 11/13/2015 10:19 PM EDT Narrative Resulting Agency Comment [id number] us Brandyn Pagan MD LAB SAME DAY RESULT Final Resul t [facility] [address] [place] [address] documented in this encounter Visit Diagnoses Diagnosis Urinary tract infection, site unspecified Muscle ache Mylagia and myositis, unspecified Routine history and physical examination of adult Routine general medical examination at a health care facility documented in this encounter Care Teams Porcelain Turner Relationship Specialty Start Date End Date Brandyn Pagan MD PCP - General Internal Medicine 08/07/15 02/02/17 Radha Spangler NP PCP - Backup PCP Internal Medicine 01/11/16 02/02/17 Unknown Pcp, Non [facility] PCP - General 02/03/17 documented as of this encounter
--- OUTSIDE RECORDS SUMMARY | 2024-09-05 07:28 | XMS_ITS | Encounter Summary ---
Author Organization [facility] Address [address] [place] [address] Care Team Providers Care Recording Artist Name Role Phone Brandyn Pagan MD Primary Care Provider Unavaila Radha Fink NP Unavailable Unavailable Unknown Pcp, Non [facility] Primary Care Provider Unava ilable Encounter Details Date Type Department Care Team (Late st Contact Info) Description 11/02/2015 Orders Only [facility] [address] [place] [address] Radha Spangler NP Social History Tobacco Use [...] this encounter Procedures * Due to [place] LOANZ law, this organization might not be sharing negative HIV tests. Procedure Name Priority Date/Time Associated Diagnosis Comments ALANINE AMINOTRANSFERASE (ALT), SERUM Routine 11/02/2015 12:44 PM EDT Hyperlipidemia, unspecified hyperlipidemia type CREATINE KINASE (CK), SERUM Routine 11/02/2015 12:44 PM EDT Hyperlipidemia, unspecified hyperlipidemia type documented in this encounter Results * Due to [place] LOAN[place] law, this organization might not be sharing negative HIV tests. * CREATINE KINASE (CK), SERUM (11/02/2015 12:44 PM EDT) CPK 106 29 - 143 U/L [facility] Comment:{CREATINE KINASE, TO KENZIE {[id number]) 11/02/2015 12:4 4 PM EDT 11/03/2015 2:14 AM EDT Narrative Resulting Agency Comment [id number] Radha Spangler SUPERVISOR PURIFICATION LAB SAME DAY RESULT Final Re sult [facility] [address] [place] [address] * ALANINE AMINOTRANSFERASE (ALT), SERUM (11/02/2015 12:44 PM EDT) ALT (SGPT) 22 6 - 29 U/L [facility] Comment:{ALT {[id number]) 11/02/2015 12:4 4 PM EDT 11/03/2015 2:14 AM EDT Narrative Resulting Agency Comment [id number] us Radha Spangler SUPER[employer] [facility] SAME DAY RESULT Final Re sult [facility] [address] [place] [address] documented in this encounter Visit Diagnoses Diagnosis Hyperlipidemia, unspecified hyperlipidemia type documented in this encounter Care Teams Recording Artist Relationship Specialty Start Date End Date Brandyn Pagan MD PCP - General Internal Medicine 08/07/15 02/02/17 Radha Spangler NP PCP - Backup PCP Internal Medicine 01/11/16 02/02/17 Unknown Pcp, Non [facility] PCP - General 02/03/17 documented as of this encounter
--- OUTSIDE RECORDS SUMMARY | 2024-09-05 07:28 | XMS_ITS | Encounter Summary ---
Author Organization [facility] Address [address] [place] [address] Care Team Providers Care Brass And Wind Instrument Repairer Name Role Phone Bijal Fox CAM SPECIALIST Primary Care Provider [phone] Encounter Details Date Type Department Care Team (Late st Contact Info) Description 08/13/2024 Orders Only [facility] [address] [place] [address] Magy Sawyer NP [address] [facility] [address] [place] [address] [phone] Vitamin D deficiency (Primary Dx) Social History Tobacco Use Types Packs/Day Years Used Date Smoking Tobacco: Former Smokeless Tobacco: Never Comments:: Alcohol Use Standard Drinks/Week Comments Not Currently 0 (1 standard drink = 0.6 oz pur e alcohol) [facility] Utilities Answer Date Recorded In the [...] Info) Description 09/18/2024 11:00 AM EDT Follow-Up [facility] [address] [place] [address] Marvin, AYAD Gil [address] [place] [address] 609[address] 09/23/2024 1:30 PM EDT Appointment [facility] Pre-Testing Department [address] [place] [phone] 09/30/2024 10:55 AM EDT Hospital Encounter [facility] [place] [address] [place] [address]2812 Nima Solorio MD [address] [place] [address] 09/30/2024 10:55 AM EDT - 09/30/2024 11:24 AM EDT Surgery [facility] OR [address] [place] [address] 19228 Nima Solorio MD [address] [place] [address] [phone] CATARACT EXTRACTION WITH INSERTION OF INTRAOCULAR LENS IMPLANT [[id number] (CPT??)] 10/03/2024 3:00 PM EDT Follow-Up [facility] [address] [place] [address]32 John Hendricks MD [address] [place] [address] 145[address] 10/21/2024 10:20 AM EDT Hospital Encounter [facility] OR [address] [place] [address] 56398 Nima Solorio MD [address] [place] [address] [phone] 10/21/2024 10:20 AM EDT - 10/21/2024 10:49 AM EDT Surgery [facility] OR [address] [place] [address] 29659 Nima Solorio MD [address] [place] [address] [phone] CATARACT EXTRACTION WITH INSERTION OF INTRAOCULAR LENS IMPLANT [[id number] (CPT??)] 01/08/2025 10:00 AM EDT Follow-Up [address] Cardiology [address] [place] [address] Mabel Onofre NP [address] [place] [address] Scheduled Orders Name Type Priority Associated Diagnoses Orde r Schedule Vitamin D, 25-Hydroxy, Total, Immunoassay Lab Routine Vitamin D deficiency Expected: 08/13/2024, Expires: 08/13/2025 Scheduled Procedures Name Priority Associated Diagnoses Date/Ti [...] as of this encounter Visit Diagnoses Diagnosis Vitamin D deficiency- Primary Cataract of left eye present Cataract of right eye present documented in this encounter Care Teams Brass And Wind Instrument Repairer Relationship Specialty Start Date End Date Bijal Fox NP [address] [place] [address] PCP - General Family Medicine 05/30/24 documented as of this encounter
--- OUTSIDE RECORDS SUMMARY | 2024-09-05 07:29 | XMS_ITS | Referral Summary ---
Author Organization [facility] Address [address] [place] [address] Care Team Providers Care Buffer Nickel Name Role Phone Bijal Fox NP Primary Care Provider [phone] Encounters Date Type Department Care Team Description 08/26/2024 8:45 AM EDT Follow-Up [address] Podiatry Department [address] [place] [id number] Yesika Don DPM Posterior tibial tendon dysfunction (PTTD) of left lower extremity (Primary Dx); Pre-op evaluation; Pes planus of left foot; Chronic pain of left ankle 08/23/2024 11:36 AM EDT - 08/23/2024 11:59 PM EDT Hospital Encounter [facility] Mammography Department [address] [place] [phone] Screening mammogram for breast cancer Discharge Disposition: Home or Self Care () 08/20/2024 Results Follow-Up [address] Podiatry Department [address] [place] [address] Yesika Don DPM 08/16/2024 10:36 AM EDT - 08/16/2024 11:59 PM EDT Hospital Encounter [facility] @ [address] [address] Yesika Don DPM Pes planus of left foot; Posterior tibial tendon dysfunction (PTTD) of left lower extremity Discharge Disposition: Home or Self Care () 08/13/2024 Orders Only [facility] Lab [address] [place] [address] Magy Sawyer NP Vitamin D deficiency (Primary Dx) 08/09/2024 2:40 PM EDT Lab [facility] Draw Site Department [address] [place] [address] Hyperlipidemia, unspecified hyperlipidemia type (Primary Dx); Hypothyroidism, unspecified type; Swelling of limb 08/08/2024 2:30 PM EDT Office Visit [facility] Podiatry Department 94 [facility] 1st [place] [address] Yesika Don, DPM Posterior tibial tendon dysfunction (PTTD) of left lower extremity (Primary Dx); Pes planus of left foot 08/05/2024 Results Follow-Up [facility] Nephrology [address] [address] John Hendricks MD 08/05/2024 1:56 PM EDT - 08/05/2024 11:59 PM EDT Hospital Encounter [facility] Ultrasound Department [address] [place] [address] John Hendricks MD CKD stage 3a, GFR 45-59 ml/min; Chronic heart failure with preserved ejection fraction Discharge Disposition: Home or Self Care () 08/01/2024 2:00 PM EDT Follow-Up [facility] Nephrology [address] [address] John Hendricks MD Hyperkalemia (Primary Dx); CKD stage 3a, GFR 45-59 ml/min; Chronic heart failure with preserved ejection fraction; Primary hypertension 07/31/2024 12:09 PM EDT - 07/31/2024 11:59 PM EDT Hospital Encounter [facility] XRay [address] [place] [address] Sonny Reed MD Pain Discharge Disposition: Home or Self Care () 07/31/2024 10:15 AM EDT - 07/31/2024 12:08 PM EDT Hospital Encounter [facility] [address] [place] [address] Sonny Reed MD Chronic left shoulder pain (Primary Dx); Left shoulder pain, unspecified chronicity Discharge Disposition: Home or Self Care () 07/22/2024 11:08 AM EST - 07/22/2024 11:59 PM EST Hospital Encounter [facility] XRay [address] [place] [address] Acute pain of left shoulder Discharge Disposition: Home or Self Care () 07/22/2024 11:15 AM EST Office Visit [facility] [address] [place] [phone] Marvin, AYAD Gil Primary osteoarthritis of left shoulder (Primary Dx); Rotator cuff tear arthropathy of left shoulder 07/20/2024 Orders Only [facility] Site Department [address] [place] [phone] Magy Sawyer, MEY Swelling of limb (Primary Dx) 07/19/2024 12:10 PM EST Lab [facility] Site Department [address] [place] [phone] Swelling of lower extremity (Primary Dx); Urinary tract infection without hematuria, site unspecified 07/16/2024 Lab Requisition [facility] [address] [place] [address] Bijal Fox NP Urinary tract infection, site not specified 07/16/2024 Orders Only [facility] Site Department [address] [place] [phone] Bijal Fox [employer] Urinary tract infection without hematuria, site unspecified (Primary Dx) 07/16/2024 10:45 AM EST - 07/16/2024 11:59 PM EST Hospital Encounter [facility] Xray Department [address] [place] [phone] Heart failure, unspecified HF chronicity, unspecified heart failure type Discharge Disposition: Home or Self Care () 07/13/2024 10:30 AM EST Lab [facility] Site Department [address] [place] [phone] Heart failure, unspecified HF chronicity, unspecified heart failure type (Primary Dx); Hyperlipidemia, unspecified hyperlipidemia type; 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 Orders Only [facility] [address] [place] [address] Magy Sawyer NP Hyperlipidemia, unspecified hyperlipidemia type (Primary Dx); 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/03/2024 Telephone [facility] Case Management Department [address] [place] [phone] Mariajose Calvillo RN 07/03/2024 2:30 PM EST Office Visit [address] Cardiology [address] [place] [phone] Mabel Onofre NP Diastolic heart failure, unspecified HF chronicity (Primary Dx); Paroxysmal atrial fibrillation; Pulmonary hypertension; BILLIE (obstructive sleep apnea); Benign hypertensive heart disease without congestive heart failure 07/02/2024 10:05 AM EST Lab [facility] Department [address] [place] [phone] 07/01/2024 3:15 PM EST Office Visit [facility] Nephrology [address] [place] [address], 2nd [place] [address] John Hendricks MD Hyperkalemia (Primary Dx); CKD stage 3a, GFR 45-59 ml/min; Chronic heart failure with preserved ejection fraction; Primary hypertension 07/01/2024 9:05 AM EST Lab [facility] Site Department [address] [place] [phone] Diastolic heart failure, unspecified HF chronicity 07/01/2024 Orders Only [address] Cardiology [address] [place] [phone] Mabel Onofre NP 06/15/2024 7:35 PM EST - 06/26/2024 6:09 PM EST Hospital Encounter [facility] [address] [place] [address] Kevin Newsome MD Devineni, Praveen, MD Pneumonia of left lung due to infectious organism, unspecified part of lung (Primary Dx); Acute hypoxic respiratory failure Discharge Disposition: Home with Services (06) 06/24/2024 Telephone [facility] 100 [facility] Cardiology 100 [facility] [address] [place] [address] Elise Boykin MA TCM 06/23/2024 Lab Requisition [facility] [address] [place] [address] Mj Mendenhall MD Pneumonia due to other specified infectious organisms from Last 3 Months Allergies Active Allergy Reactions Criticality Noted Date Comments Lansoprazole Indigestion Medium Hllatmn-Hvq-Zxr Reductase Inhibitors Muscle Pain Medium Per pt [...] mcg total) by mouth daily. 30 tablet Active budesonide (PULMICORT) 0.5 mg/2 mL suspension [...] every 12 hours. 120 mL 5 Active senna (SENOKOT) 8.6 mg tablet [...] times a day. 300 mL 5 Active ipratropium-albu teroL (DUO-NEB) 0.5-2.5 mg/3 mL nebulizer solution Inhale 3 mL via nebulizer every 4 hours as needed for wheezing or shortness of breath. 360 mL 5 Active guaiFENesin ER (MUCINEX) 600 mg tablet Take 1 tablet (600 mg total) by mouth every 12 hours. 60 tablet 5 Active apixaban (Eliquis) 5 mg tabletIndication s:Atrial fibrillation, unspecified type (HCC) Take 1 tablet (5 mg total) by mouth every 12 hours. 60 tablet 5 Active traMADoL (ULTRAM) 50 mg tablet Take 50 mg by mouth every 8 hours as needed for pain. 5 Active furosemide (LASIX) 20 mg tablet Take 2 tablets (40 mg total) by mouth once a day. 5 Active Active Problems Problem Noted Date Diagnosed Date Pre-op evaluation 08/26/2024 Assessment & Plan (08/26/2024 1:40 PM EDT): During today's visit, I performed the following: Reviewed lab results ordered new labs/studies: Pre op BMP, CBC, EKG; A1C and U-PREG if appropriate reviewed imaging results: XR MRI ordered radiographic studies reviewed and summarized old records and/or the patient's electronic chart. Etiology and exam findings were discussed. Reviewed imaging results with patient today. Treatment options were discussed. This included conservative treatment as well as surgical treatment. Conservative care includes: brace, PT Surgical treatment includes: tendon repair with anchoring into bone Discussed with patient what surgical intervention would entail. The patient was educated today about the risks associated with surgery. Risks of surgery include, but are not limited to: Infection, swelling, ongoing pain, delayed wound healing, delayed bone healing, nonunion, delayed union, malunion, painful or hypertrophic scar, painful hardware, failure of hardware, numbness, neuritis, need for revisional surgery, no resolution of symptoms or worsening or symptoms, new deformity, blood clot formation including a DVT and/or PE, amputation, loss of life or limb or other unforeseen side effects from undergoing surgery. Patient voices understanding of the risks and benefits and would like to proceed with surgery. Informed consent for surgery was obtained today. Written consent will be obtained on the morning of surgery. Proposed procedure(s): Repair of LEFT PT tendon with or without some bone removal and anchoring Weightbearing status following surgery: NWB in post op splint LLE Work and activity restrictions: Impact of undergoing surgery to work and daily activities was discussed today. Discussion included how it is common to take up to 12 months for maximum recovery after surgery. Discussed that foot and/or ankle swelling can linger for up to 1 year after surgery. Discussed that following a trauma, despite fixing the bone(s), it is common to develop post traumatic arthritis which may or may not warrant, and is not necessarily limited to, additional surgery, custom bracing, extended time of from work, temporary or permanent disability, etc. Pain management: Postoperative pain regimens were discussed in great detail with the patient today. The risks and potential side effects associated with NSAIDs, nonnarcotic medications, narcotic pain medications, as well as synergistic agents were discussed. The patient was encouraged to aggressively elevate and ice postoperatively to help with swelling and pain control. The patient was in agreement with this plan. Bone health assessment: Vitamin D supplementation of the postoperative setting is encouraged. DVT/PE risk assessment: Blood clot risks were discussed in relation to immobilization, activity, injury, surgery, medications, and personal risk factors. Signs and symptoms of a blood clot were discussed including an action plan if the patient experiences these signs or symptoms. Methods of preventing blood clots and risk reduction were explained. Mechanical prophylaxis including range of motion and mobilization is encouraged as much as possible. A removable brace postoperatively will be used if indicated. Pending foot surgery as a risk factor. Measures taken to decrease the risk of deep vein thrombosis consisted of detailed education, as well as lower extremity range of motion. Pharmacologic DVT prophylaxis will be prescribed if indicated. DVT prophylaxis: on eliquis The recovery process was discussed including impact to work, walking, shoe gear and shoe fit, as well as daily activities. We discussed postoperative pain in detail. The patient has been instructed to take pain medication on a schedule for the first 1-2 days following surgery and to adjust pain regimen accordingly to an as needed basis. After discussing all risks and potential complications as well as benefits, the patient verbally consented to the aforementioned procedure today. The patient verbally confirmed his/her understanding of the above procedure(s), risks, side effects, possible complications and post operative expectations. Pes planus of left foot 08/08/2024 Posterior tibial tendon dysf unction (PTTD) of left lower extremity 08/08/2024 CKD stage 3a, GFR 45-59 ml/min 07/01/2024 [...] discontinued tomorrow. Repeat BMP Diastolic CHF, acute 06/19/2024 Assessment & Plan (06/24/2024 1:48 PM [...] on admission by SpO2 88% requiring 3-4L [employer]. Tachypnea with RR increased to 22 RPM. She is not home-O2 dependent. -Wean supplemental O2 as tolerated, presently om room air -Taper steroids -Continue supportive therapy with nebulized bronchodilators, ICS and multiple antitussives. -Avoid increasing Tramadol in setting of COPD/asthma. Assessment & Plan (06/23/2024 4:18 PM EST): Acute Resp Failure: Evidenced on admission by SpO2 88% requiring 3-4L [employer]. Tachypnea with RR increased to 22 RPM. She is not home-O2 dependent. Presently weaned to 2L [employer], but still coarse with rhonchus cough. Reduced IV steroids as no wheezing on exam and she appears tearful and depressed. Continue supportive therapy with nebulized bronchodilators, ICS and multiple antitussives. Avoid increasing Tramadol in setting of COPD/asthma. Assessment & Plan (06/22/2024 5:42 PM EST): Acute Resp Failure: Evidenced on admission by SpO2 88% requiring 3-4L [employer]. Tachypnea with RR increased to 22 RPM. She is not home-O2 dependent. Presently weaned to 2L [employer], but still coarse with rhonchus cough. Reduced [...] auth. Fall precautions Ambulate with assistance A-fib 06/03/2024 Assessment & Plan (06/25/2024 12:39 PM [...] drink = 0.6 oz pur e alcohol) [facility] Utilities Answer Date Recorded In the past 12 months has e [employer], gas, oil, or water [employer] threatened to shut off services in your [...] Sign Reading Time Taken Comments Blood Pressure 138/72 08/08/2024 2:21 PM EDT Pulse 53 07/31/2024 10:44 AM EDT Temperature 36.6 ??C (97.9 ??F) 07/31/2024 10:30 AM E DT Respiratory Rate 18 06/26/2024 3:00 PM EST Oxygen Saturation 90% 07/31/2024 10:44 AM EDT Inhaled Oxygen Concentration - - Weight 115.7 kg (255 lb) 08/26/2024 8:49 AM EDT Height 167.6 cm (5' 6 ) 08/26/2024 8:49 AM EDT Body Mass Index 41.16 08/26/2024 8:49 AM EDT Plan of Treatment Upcoming Encounters Date Type Department Care Team (Latest Contact Info) Description 09/18/2024 11:00 AM EDT Follow-Up [facility] [address] [place] [phone] Marvin, AYAD Gil [address] [place] [phone] 09/23/2024 1:30 PM EDT Appointment [facility] Pre-Testing Department [address] [place] [phone] 09/30/2024 10:55 AM EDT Hospital Encounter [facility] [place] [address] [place] [phone] Nima Solorio MD [address] [place] [phone] 09/30/2024 10:55 AM EDT - 09/30/2024 11:24 AM EDT Surgery [facility] OR [address] [place] [address] Nima Solorio MD [address] [place] [phone] CATARACT EXTRACTION WITH INSERTION OF INTRAOCULAR LENS IMPLANT [17808 (CPT??)] 10/03/2024 3:00 PM EDT Follow-Up [facility] Nephrology [address] [place] [phone] John Hendricks MD [address] [place] [phone] 10/21/2024 10:20 AM EDT Hospital Encounter [facility] OR [address] [place] [phone] Nima Solorio MD [address] [place] [phone] 10/21/2024 10:20 AM EDT - 10/21/2024 10:49 AM EDT Surgery [facility] OR [address] [place] [phone] Nima Solorio MD [address] [place] [phone] CATARACT EXTRACTION WITH INSERTION OF INTRAOCULAR LENS IMPLANT [62124 (CPT??)] 01/08/2025 10:00 AM EDT Follow-Up [address] Cardiology [address] [place] [address] Mabel Onofre, MEY [address] [place] [address] Scheduled Procedures Name Priority Associated Diagnoses Date/Ti [...] left foot Chronic pain of left ankle Procedures * Due to [place] state law, this organization might not be sharing negative HIV tests. Procedure Name Priority Date/Time Associated Diagnosis Comments TRUDI BILATERAL SCREENING DIGITAL MAMMOGRAM WITH MIGUEL Routine 08/23/2024 11:56 AM EDT Screening mammogram for breast cancer MRI ANKLE LEFT WO CONTRAST Routine 08/16/2024 11:30 AM EDT Pes planus of left foot Posterior tibial tendon dysfunction (PTTD) of left lower extremity TSH REFLEX FREE T4 Routine 08/09/2024 1: 16 PM EDT Hypothyroidism, unspecified type COMPREHENSIVE METABOLIC PANEL Routine 08/09/2024 1:16 PM EDT Hyperlipidemia, unspecified hyperlipidemia type LIPID PANEL Routine 08/09/2024 1:16 PM EDT Hyperlipidemia, unspecified hyperlipidemia type N-TERMINAL PROBRAIN NATRIURETIC PEPTIDE Routine 08/09/2024 1:16 PM EDT Swelling of limb XR ANKLE 3+ VW LEFT WEIGHT BEARING Routine 08/08/2024 2:59 PM EDT Pes planus of left foot XR FOOT 3+ VW LEFT WEIGHT BEARING Routine 08/08/2024 2:59 PM EDT Pes planus of left foot US KIDNEY AND BLADDER COMPLETE Routine 08/05/2024 2:18 PM EDT CKD stage 3a, GFR 45-59 ml/min Chronic heart failure with preserved ejection fraction FL C-ARM WITH IMAGES NONREPORTABLE Routine 07/31/2024 10:49 AM EDT Pain CHG FLUOROSCOPIC GUIDANCE NEEDLE PLACEMENT ADD ON Routine 07/31/2024 10:15 AM EDT Left shoulder pain, unspecified chronicity PA ARTHROCENTESIS ASPIR&/INJ MAJOR JT/BURSA W/O US Routine [...] unspecified HF chronicity, unspecified heart failure type N-TERMINAL PROBRAIN NATRIURETIC PEPTIDE Routine 07/13/2024 10:20 AM EST Heart failure, unspecified HF chronicity, unspecified heart failure type T4, FREE Routine 07/13/2024 10:20 AM EST [...] Hyperkalemia CKD stage 3a, GFR 45-59 ml/min Chronic heart failure with preserved ejection fraction Primary hypertension PROTEIN ELECTROPHORESIS W/REFLEX TO IMMUNOFIXATION, SERUM Routine 07/02/2024 9:17 AM EST Hyperkalemia CKD stage 3a, GFR 45-59 ml/min Chronic heart failure with preserved ejection fraction Primary hypertension MAGNESIUM Routine 07/02/2024 9:17 AM EST Hyperkalemia CKD stage 3a, GFR 45-59 ml/min Chronic heart failure with preserved ejection fraction Primary hypertension MICROALBUMIN, RANDOM URINE WITH CREATININE Routine 07/02/2024 9:17 AM EST Hyperkalemia CKD stage 3a, GFR 45-59 ml/min Chronic heart failure with preserved ejection fraction Primary hypertension PROTEIN, RANDOM URINE WITH CREATININE Routine 07/02/2024 9:17 AM EST Hyperkalemia CKD stage 3a, GFR 45-59 ml/min Chronic heart failure with preserved ejection fraction Primary hypertension URINALYSIS W/REFLEX TO MICROSCOPIC (NO CULTURE) Routine 07/02/2024 9:17 AM EST Hyperkalemia CKD stage 3a, GFR 45-59 ml/min Chronic heart failure with preserved ejection fraction Primary hypertension VITAMIN D, 25-HYDROXY, TOTAL, IMMUNOASSAY Routine 07/02/2024 9:17 AM EST Hyperkalemia CKD stage 3a, GFR 45-59 ml/min Chronic heart failure with preserved ejection fraction Primary hypertension RENAL FUNCTION PANEL Routine 07/02/2024 9:17 AM EST Hyperkalemia CKD stage 3a, GFR 45-59 ml/min Chronic heart failure with preserved ejection fraction Primary hypertension PTH, INTACT (WITHOUT CALCIUM) Routine 07/02/2024 9:17 AM EST Hyperkalemia CKD stage 3a, GFR 45-59 ml/min Chronic heart failure with preserved ejection fraction Primary hypertension HEMOGLOBIN AND HEMATOCRIT Routine 07/02/2024 9:17 AM EST Hyperkalemia CKD stage 3a, GFR 45-59 ml/min Chronic heart failure with preserved ejection fraction Primary hypertension N-TERMINAL PROBRAIN NATRIURETIC PEPTIDE Routine 07/01/2024 8:39 AM EST Diastolic heart failure, unspecified HF chronicity BASIC METABOLIC PANEL Routine 07/01/2024 8:39 AM EST Diastolic heart failure, unspecified HF chronicity XR ABDOMEN 1 VW STAT 06/26/2024 12:39 [...] 06/15/2024 HEART & VASCULAR - SCANNED 06/15/2024 COLONOSCOPY 09/01/2014 2:57 PM EDT from Last 3 Months or Most Recently Relevant to Health Maintenance Results * Due to [place] state law, this organization might not be sharing negative HIV tests. * (ABNORMAL) TRUDI Bilateral Screening Digital Mammogram With Miguel (08/23/2024 11:56 AM EDT) Anatomical Region Laterality Modality Breast Bilateral Mammography Narrative 09/03/2024 10:18 AM EDT Genie Vora Exam Date: 08/23/[address] [address] EXAMINATION TRUDI Bilateral Screening Digital Mammogram With Miguel. INDICATION Screening. CC and MLO views were obtained. FDA approved Transpara?? AI (artificial intelligence) software and R2 CAD were used as a concurrent reading aid in the interpretation of this study. ??Images obtained with the assistance of 2 technologist. COMPARISON Priors in PACS. Bilateral Breast Findings: The breasts are almost entirely fatty. Left breast: No suspicious mass, suspicious grouped calcifications or unexplained area of architectural distortion is seen. ?? Right breast: Evaluation of the right breast is technically limited due to significant motion on the CC projection. IMPRESSION Left breast: No specific evidence for malignancy. Right breast: Technically limited right CC projection due to motion. BI-RADS?? ATLAS category (left): 1 - Negative BI-RADS?? ATLAS category (right): 0 - Incomplete: Needs Additional Imaging Evaluation MANAGEMENT Recommend the patient return for repeat right CC projection due to technical reasons. ??This can be performed at no additional charge to the patient. Per protocol, our department will attempt to contact the patient to return for additional imaging evaluation. ??In addition a summary letter will be sent to the patient and a copy of this report to the referring clinician. The patient's lifetime risk for breast cancer was calculated using Tyrer-Cuzick: 2.82%. For women with lifetime risk >20% (high risk), annual screening breast MRI is recommended in addition to annual mammography, ideally staggered at 6-month intervals. https://acsearch.acr.org/docs/5390519/Narrative/ Francisco J Garza MD If this radiology report contains a blank impression section, it is an incomplete radiology report. ??Please contact the interpreting radiologist or applicable radiology division as soon as possible to obtain the completed interpretation. Resulting Agency Comment [id number] us Magy Sawyer NP IMG BI PROCEDURES Final Result * MRI Ankle Left WO Contrast (08/16/2024 11:30 AM EDT) Anatomical Region Laterality Modality Lower Extremities, Ankle Left Magneti c Resonance 08/16/2024 11:0 0 AM EDT Impressions 08/19/2024 2:15 PM EDT 1. Grade 2 sprain of the anterior talofibular ligament. Grade 1 sprain of the calcaneofibular ligament. 2. Mild posterior tibialis tendinopathy and tenosynovitis. 3. Flexor digitorum longus and flexor hallucis longus tenosynovitis. 4. 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 5. Edema within the sinus Tarsi, can be seen in the setting of sinus Tarsi syndrome. IRuperto, have reviewed the examination and concur with the findings as reported or so edited. Trainee: ??Calvin Sanchez If this radiology report contains a blank impression section, it is an incomplete radiology report. ??Please contact the interpreting radiologist or applicable radiology division as soon as possible to obtain the completed interpretation. ? Workstation ID: [id number] Narrative 08/19/2024 2:15 PM EDT INDICATION: Left ankle pain for 3 weeks. TECHNIQUE: Multiplanar, multisequence MRI of the left ankle was performed without contrast using standard departmental protocol. COMPARISON: Left foot radiographs from 08/08/2024 FINDINGS: ALIGNMENT: Pes planus. Hindfoot valgus. FLUID: There is a moderate sized subtalar joint effusion. ??Trace tibiotalar joint effusion. BONES: No fracture or avascular necrosis. Os peroneus. Probable Type III os navicularis. LATERAL ANKLE: Anterior tibiofibular syndesmotic ligament: Intact. Posterior tibiofibular syndesmotic ligament: Intact. Anterior talofibular ligament: Grade 2 sprain with low-grade partial tear. Calcaneofibular ligament: Grade 1 sprain. Posterior talofibular ligament: Intact. Peroneus longus tendon: Intact. Peroneus brevis tendon: Intact. MEDIAL ANKLE: Superficial deltoid ligament complex: Intact. Deep deltoid ligament complex: Intact. Spring ligament: Intact. Posterior tibialis tendon: Mild tendinopathy. Mild tenosynovitis. Flexor digitorum longus tendon: Mild tenosynovitis. Flexor hallucis longus tendon: Mild tenosynovitis. ANTERIOR ANKLE: Tibialis anterior tendon: Intact. Extensor hallucis longus tendon: Intact. Extensor digitorum longus tendon: Intact. ACHILLES TENDON: Intact. PLANTAR FASCIA: Thickening of the central cord of the plantar fascia without surrounding edema can be seen with chronic plantar fascitis. JOINTS AND SPACES: Tibiotalar joint: Mild osteoarthritis. Subtalar joint: Mild to moderate osteoarthritis. Midfoot joints: Moderate osteoarthritis. Low-grade sprain of the dorsal capsular ligament at the talonavicular joint. Sinus Tarsi: Edema within the sinus Tarsi. Tarsal tunnel: Intact. OTHER: Muscles: Normal in bulk and signal. Lis-franc ligament: Partially imaged, no acute abnormality. Neurovascular structures: Limited evaluation, unremarkable. Diffuse subcutaneous edema, greatest medially. Resulting Agency Comment [id number] Procedure Note Ruperto Huang MD - 08/19/2024 INDICATION: Left ankle pain for 3 weeks. TECHNIQUE: Multiplanar, multisequence MRI of the left ankle was performedwithout contrast using standard departmental protocol. COMPARISON: Left foot radiographs from 08/08/2024 FINDINGS: ALIGNMENT: Pes planus. Hindfoot valgus. FLUID: There is a moderate sized subtalar joint effusion. Tracetibiotalar joint effusion. BONES: No fracture or avascular necrosis. Os peroneus. 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 LATERAL ANKLE: Anterior tibiofibular syndesmotic ligament: Intact. Posterior tibiofibular syndesmotic ligament: Intact. Anterior talofibular ligament: Grade 2 sprain with low-grade partialtear. Calcaneofibular ligament: Grade 1 sprain. Posterior talofibular ligament: Intact. Peroneus longus tendon: Intact. Peroneus brevis tendon: Intact. MEDIAL ANKLE: Superficial deltoid ligament complex: Intact. Deep deltoid ligament complex: Intact. Spring ligament: Intact. Posterior tibialis tendon: Mild tendinopathy. Mild tenosynovitis. Flexor digitorum longus tendon: Mild tenosynovitis. Flexor hallucis longus tendon: Mild tenosynovitis. ANTERIOR ANKLE: Tibialis anterior tendon: Intact. Extensor hallucis longus tendon: Intact. Extensor digitorum longus tendon: Intact. ACHILLES TENDON: Intact. PLANTAR FASCIA: Thickening of the central cord of the plantar fasciawithout surrounding edema can be seen with chronic plantar fascitis. JOINTS AND SPACES: Tibiotalar joint: Mild osteoarthritis. Subtalar joint: Mild to moderate osteoarthritis. Midfoot joints: Moderate osteoarthritis. Low-grade sprain of the dorsalcapsular ligament at the talonavicular joint. Sinus Tarsi: Edema within the sinus Tarsi. Tarsal tunnel: Intact. OTHER: Muscles: Normal in bulk and signal. Lis-franc ligament: Partially imaged, no acute abnormality. Neurovascular structures: Limited evaluation, unremarkable. Diffuse subcutaneous edema, greatest medially. IMPRESSION: 1. Grade 2 sprain of the anterior talofibular ligament. Grade 1 sprain ofthe calcaneofibular ligament. 2. Mild posterior tibialis tendinopathy and tenosynovitis. 3. Flexor digitorum longus and flexor hallucis longus tenosynovitis. 4. 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 5. Edema within the sinus Tarsi, can be seen in the setting of sinus Tarsisyndrome. IRuperto, have reviewed the examination and concur with thefindings as reported or so edited. Trainee: Calvin Sanchez If this radiology report contains a blank impression section, it is anincomplete radiology report. Please contact the interpreting radiologistor applicable radiology division as soon as possible to obtain thecompleted interpretation. Workstation ID: [id number] us Yesika Don DPConstantino IMG MRI PROCEDURES Final Resu lt * N-terminal ProBrain Natriuretic Peptide - [facility] & MEM/LONI/Nicole Only (08/09/2024 1:16 PM EDT) Only the most recent of7 resultswithin the time period is included. Pro-B-Type Natriuretic Peptide 203 <=900 pg/mL 08/09/2024 2:31 PM EDT [facility] Comment: RULE IN CHF >/= [...] 08/09/2024 1:33 PM EDT us Magy Sawyer NP LAB BLOOD ORDERABLES Final Res ult Performing Organization Address City/[facility] [address]/[facility] Co de Phone Number [facility] [address] [address], [place] [phone] * TSH Reflex Free T4 (08/09/2024 1:16 PM EDT) TSH 2.850 0.270 - 4.200 uIU/mL 08/09/2024 2:21 PM EDT [facility] Blood Structure of peripheral vein / Unknown Venipuncture / Unknown 08/09/2024 1:16 PM EDT 08/09/2024 1:33 PM EDT us Magy Sawyer NP LAB BLOOD ORDERABLES Final Res ult Performing Organization Address [facility] [address]/[facility] Co de Phone Number [facility] [address] [place] [address], [place] [phone] * Lipid panel (08/09/2024 1:16 PM EDT) Only the most recent of2 resultswithin the time period is included. Cholesterol 235 mg/dL 08/09/2024 2:21 PM EDT [facility] Comment: DESIRABLE: <200 mg/dL BORDERLINE HIGH: 200-239 mg/dL HIGH: >239 mg/dL Triglycerides 174 mg/dL 08/09/2024 2:21 PM EDT [facility] Comment: NORMAL: <150 mg/dL BORDERLINE HIGH: 150-199 mg/dL HIGH: 200-499 mg/dL VERY HIGH >499 mg/dL Cholesterol, HDL 66 mg/dL 08/10/19 2:21 PM EDT [facility] Comment: DESIRABLE: >60 mg/dL BORDERLINE: 40-59 mg/dL UNDESIRABLE: <40 mg/dL LDL Cholesterol 134 mg/dL 2:21 PM EDT [facility] Comment: OPTIMAL: <100 mg/dL NEAR OPTIMAL: <130 mg/dL BORDERLINE HIGH: 130-159 mg/dL HIGH: 160-189 mg/dL VERY HIGH: >189 mg/dL VLDL 34.8 mg/dL 08/09/2024 2:21 PM EDT [facility] Cholesterol/HDL Ratio 3.6 08/09/2024 2:21 PM EDT [facility] Blood Structure of peripheral vein / Unknown Venipuncture / Unknown 08/09/2024 1:16 PM EDT 08/09/2024 1:33 PM EDT us Magy Sawyer [employer] LAB BLOOD ORDERABLES Final Res ult [facility] [address] [place] [address] [address] [place] [address], [place] [phone] * (ABNORMAL) Comprehensive Metabolic Panel (08/09/2024 1:16 PM EDT) Only the most recent of3 resultswithin the time period is included. NA 141 136 - 145 mmol/L 08/09/2024 2:21 PM EDT [facility] K 4.3 3.5 - 5.1 mmol/L 08/09/2024 2:21 PM EDT [facility] Cl 103 98 - 109 mmol/L 08/09/2024 2:21 PM EDT [facility] CO2 27 22 - 32 mmol/L 08/09/2024 2:21 PM EDT [facility] Anion Gap 15 >=0 08/09/2024 2:21 PM EDT [facility] Glucose 95 60 - 99 mg/dL 08/09/2024 2:21 PM EDT [facility] Creatinine 1.37(H) 0.50 - 1.12 mg/dL 08/09/2024 2:21 PM EDT [facility] Calcium 9.4 8.4 - 10.4 mg/dL 08/09/2024 2:21 PM EDT [facility] Total Protein 6.5(L) 6.6 - 8.7 g/dL 08/09/2024 2:21 PM EDT [facility] Albumin 3.9 3.5 - 5.0 g/dL 08/09/2024 2:21 PM EDT [facility] Bilirubin, Total 0.2 0.2 - 1.2 mg/dL 08/09/2024 2:21 PM EDT [facility] Alkaline Phosphatase 108 40 - 129 U/L 08/09/2024 2:21 PM EDT [facility] AST 18 0 - 33 U/L 08/09/2024 2:21 PM EDT [facility] ALT 19 <=33 U/L 08/09/2024 2:21 PM EDT [facility] BUN 24(H) 8 - 23 mg/dL 08/09/2024 2:21 PM EDT [facility] eGFR 41(L) >=60 mL/min/1. 73m2 08/09/2024 2:21 PM EDT [facility] Comment:The estimated glomer ular [...] in Diagnosing Kidney Disease . Globulin, Total 2.6 2.1 - 4.2 g/dL 08/09/2024 2:21 PM EDT [facility] A/G Ratio 1.5 1.5 - 3.0 08/09/2024 2:21 PM EDT [facility] Blood Structure of peripheral vein / Unknown Venipuncture / Unknown 08/09/2024 1:16 PM EDT 08/09/2024 1:33 PM EDT Magy Sawyer [employer] LAB BLOOD ORDERABLES Final Res ult [facility] [address] [place] [address] [address] [place] [address], * XR Ankle 3+ vw Left Weight Bearing (08/08/2024 2:59 PM EDT) Anatomical Region Laterality Modality Lower Extremities, Ankle Left Radiogr aphic Imaging Narrative 08/08/2024 5:00 PM EDT This is 3 views of the weightbearing left ankle that demonstrate no cortical deficits to suggest acute fracture. ??The mortise is congruent and intact. Yesika Don DPM IMG XR PROCEDURES Final Resul t * XR Foot 3+ vw Left Weight Bearing (08/08/2024 2:59 PM EDT) Anatomical Region Laterality Modality Lower Extremities, Foot Left Radiogra phic Imaging Narrative 08/08/2024 5:00 PM EDT This is 3 views of a weightbearing left foot that demonstrate a pes planus deformity as indicated by talar head uncovering of about 50% on the AP view as well as decreased calcaneal inclination and increased talar declination on the lateral view. ??There are numerous spurs throughout the forefoot midfoot and rear foot. ??There is question of an accessory navicular and there is a large accessory bone associated with the cuboid and likely course of peroneal tendons. ??The joints appear to be largely congruent and intact. ??There are no cortical disruptions to suggest acute fracture. Yesika Don DPM IMG XR PROCEDURES Final Resul t * US Kidney and Bladder Complete (08/05/2024 2:18 PM EDT) Anatomical Region Laterality Modality Body N/A Ultrasound 08/05/2024 7:56 PM EDT Impressions 08/05/2024 7:57 PM EDT Cortical thinning right greater than left kidney. Renal sinus cysts left kidney.. If this radiology report contains a blank impression section, it is an incomplete radiology report. ??Please contact the interpreting radiologist or applicable radiology division as soon as possible to obtain the completed interpretation. ? Workstation ID: [id number] Narrative 08/05/2024 7:57 PM EDT EXAMINATION: Ultrasound kidneys and bladder. INDICATION: Chronic renal disease TECHNIQUE: Ultrasound evaluation of the kidneys and bladder. Multiple grayscale and color Doppler images were obtained. COMPARISON: No priors. FINDINGS: RIGHT KIDNEY: ??The right kidney measures 8.5 cm. The parenchyma demonstrates cortical thinning. ??Normal echogenicity. There is no hydronephrosis. No sonographically evident nephrolithiasis or solid mass. LEFT KIDNEY: ??The left kidney measures 9.6 cm. The parenchyma is normal in echogenicity with cortical lobulation and renal sinus cyst at the inferior pole 1.0 cm and 1.1 cm.. There is no hydronephrosis. No sonographically evident nephrolithiasis or solid mass. BLADDER: The bladder is unremarkable in sonographic appearance. Prevoid, bladder volume is 68 mL. Post void residual bladder volume is 15 mL. Resulting Agency Comment [id number] Procedure Note Mary Brown MD - 08/05/2024 EXAMINATION: Ultrasound kidneys and bladder. INDICATION: Chronic renal disease TECHNIQUE: Ultrasound evaluation of the kidneys and bladder. Multiplegrayscale and color Doppler images were obtained. COMPARISON: No priors. FINDINGS: RIGHT KIDNEY: The right kidney measures 8.5 cm. The parenchymademonstrates cortical thinning. Normal echogenicity. There is nohydronephrosis. No sonographically evident nephrolithiasis or solidmass. LEFT KIDNEY: The left kidney measures 9.6 cm. The parenchyma is normal inechogenicity with cortical lobulation and renal sinus cyst at the inferiorpole 1.0 cm and 1.1 cm.. There is no hydronephrosis. No sonographicallyevident nephrolithiasis or solid mass. BLADDER: The bladder is unremarkable in sonographic appearance. Prevoid,bladder volume is 68 mL. Post void residual bladder volume is 15 mL. IMPRESSION: Cortical thinning right greater than left kidney. Renal sinus cysts left kidney.. If this radiology report contains a blank impression section, it is anincomplete radiology report. Please contact the interpreting radiologistor applicable radiology division as soon as possible to obtain thecompleted interpretation. Workstation ID: [id number] us John Hendricks MD IMG US PROCEDURES Final Result * FL C-Arm with Images NONREPORTABLE (07/31/2024 10:49 AM EDT) Narrative IMAGING - 07/31/2024 12:28 PM EDT This procedure does not contain a result. Please see the surgeon's note for official report. us Sonny Reed MD IMG FLUOROSCOPY PROCEDURES Fin al Result IMAGING * PA ARTHROCENTESIS ASPIR&/INJ MAJOR JT/BURSA W/O US, CHG [...] Patient's understanding of procedure matches consent: Yes [place] Protocol: ? Procedure consent matches procedure scheduled: [...] obtain the completed interpretation. ? Workstation ID: [id number] Narrative 07/22/2024 1:20 PM EST COMPARISON: ??There are no prior studies available for comparison at this time. ?? FINDINGS AND Resulting Agency Comment [id number] Procedure Note Rupali Barrios MD - 07/22/2024 [...] possible to obtain thecompleted interpretation. Workstation ID: [id number] Jeffery LION IMG XR PROCEDURES Final Result * Urine Culture, Routine (07/19/2024 10:59 AM EST) Only the most recent of2 resultswithin the time period is included. Urine Culture <10,000 CFU/mL mixed gram positives; multiple organisms are present, suggestive of contamination at the time of collection. [place] MANUAL 07/20/2024 8:13 AM EST [facility] Urine Urine specimen collection, clean catch / Unknown Non-Blood Collection / Unknown 07/19/2024 10:59 AM EST 07/19/2024 11:16 AM EST Bijal Fox [employer] LAB MICROBIOLOGY - GENERAL ORDJim CALHOUN Final Result [facility] [address] [place] [address], [place] [phone] * (ABNORMAL) Basic Metabolic Panel (07/19/2024 10:59 AM EST) Only the most recent of12 resultswithin the time period is included. NA 142 136 - 145 mmol/L 07/19/2024 11:41 AM EST [facility] K 4.0 3.5 - 5.1 mmol/L 07/19/2024 11:41 AM EST [facility] Cl 103 98 - 109 mmol/L 07/19/2024 11:41 AM EST [facility] CO2 29 22 - 32 mmol/L 07/19/2024 11:41 AM EST [facility] BUN 22 8 - 23 mg/dL 07/19/2024 11:41 AM EST [facility] Creatinine 1.42(H) 0.50 - 1.12 mg/dL 07/19/2024 11:41 AM EST [facility] Glucose 108(H) 60 - 99 mg/dL 07/19/2024 11:41 AM EST [facility] Calcium 8.9 8.4 - 10.4 mg/dL 07/19/2024 11:41 AM EST [facility] Anion Gap 14 >=0 07/19/2024 11:41 AM EST [facility] eGFR 39(L) >=60 mL/min/1. 73m2 07/19/2024 11:41 AM EST [facility] Comment:The estimated glomer ular [...] NP LAB BLOOD ORDERABLES Final Res ult [facility] [address] [place] [address], * X-Ray Chest 2 Views (07/16/2024 11:04 AM EST) Only the most recent of3 [...] obtain the completed interpretation. ? Workstation ID: [id number] Narrative 07/17/2024 8:14 AM EST COMPARISON: ??06/22/2024 FINDINGS AND Resulting Agency Comment [id number] Procedure Note Calvin Katz MD - 07/17/2024 COMPARISON: 06/22/2024 FINDINGS AND IMPRESSION: No change. Heart normal. Lungs and pleural spaces clear. Cervical spinefusion hardware noted. If this radiology report contains a blank impression section, it is anincomplete radiology report. Please contact the interpreting radiologistor applicable radiology division as soon as possible to obtain thecompleted interpretation. Workstation ID: [id number] us Magy Sawyer NP IMG XR PROCEDURES Final Result * TSH (07/13/2024 10:20 AM EST) Only the most recent of2 resultswithin the time period is included. TSH 3.750 0.270 - 4.200 uIU/mL 07/13/2024 11:15 AM EST [facility] Comment: Females: 1st trimester ? 0.150-4.000 ??IU/mL 2nd trimester ?? 0.310-4.170 ?IU/mL 3rd trimester ?0.380-4.150 ?IU/mL Blood Structure of peripheral vein / Unknown Venipuncture / Unknown 07/13/2024 10:20 AM EST 07/13/2024 10:29 AM EST Magy Sawyer NP LAB BLOOD ORDERABLES Final Res ult Performing Organization Address [facility] [address] [facility] de Phone Number [facility] [address] [address], [place] [phone] * T4, Free (07/13/2024 10:20 AM EST) Free T4 1.24 0.80 - 1.80 ng/dL 07/13/2024 11:15 AM EST [facility] Comment: Females: (ng/dL) First Trimester [...] ORDERABLES Final Res ult Performing Organization Address [facility] [address] [facility] Co de Phone Number [facility] [address] [address], [place] [phone] * (ABNORMAL) Microscopic Urinalysis Only (07/02/2024 9:17 AM EST) RBC, Urine 5-10(A) None Seen, 0-2 /HPF 07/02/2024 10:07 AM EST [facility] WBC, Urine 0-2 None Seen, 0-2 /HPF 07/02/2024 10:07 AM EST [facility] Squamous Epithelial Cells, Urine 0-2 /HPF 07/02/2024 10:07 AM EST [facility] Bacteria, Urine Occasional (A) None Seen /HPF 07/02/2024 10:07 AM EST [facility] Urine Urine specimen collection, clean catch / Unknown Non-Blood Collection / Unknown 07/02/2024 9:17 AM EST 07/02/2024 9:36 AM EST John Hendricks MD LAB URINE ORDERABLES Final Resul t [facility] [address] [place] [address] [address] [place] [address], * (ABNORMAL) Urinalysis W/Reflex to Microscopic (No Culture) (07/02/2024 9:17 AM EST) Color, Urine Yellow Yellow 07/02/2024 9:44 AM EST [facility] Clarity, Urine Clear Clear 07/02/2024 9:44 AM EST [facility] Specific [place], Urine 1.015 1.005 - 1.030 07/02/2024 9:44 AM EST [facility] pH, Urine 5.5 5.0 - 8.0 07/02/2024 9:44 AM EST [facility] Protein, Urine Negative Negative mg/dL 07/02/2024 9:44 AM EST [facility] Glucose, Urine Negative Negative mg/dL 07/02/2024 9:44 AM EST [facility] Ketones, Urine Negative Negative mg/dL 07/02/2024 9:44 AM EST [facility] Bilirubin, Urine Negative Negative 07/02/2024 9:44 AM EST [facility] Blood, Urine Small(A) Negative 07/02/2024 9:44 AM EST [facility] Nitrite, Urine Negative Negative 07/02/2024 9:44 AM EST [facility] Urobilinogen, Urine 0.2 0.2 - 1.0 E.U./dL 07/02/2024 9:44 AM EST [facility] Leukocyte Esterase, Urine Small(A) Negative 07/02/2024 9:44 AM EST [facility] Urine Urine specimen collection, clean catch / Unknown Non-Blood Collection / Unknown 07/02/2024 9:17 AM EST 07/02/2024 9:36 AM EST John Hendricks MD LAB URINE ORDERABLES Final Resul t [facility] [address] [place] [address] [address] [address], [place] [phone] * (ABNORMAL) SPEP (Protein Electrophoresis w/Reflex to [...] ORDERABLES Final Resul t HILARY DAVID [address] [facility] [address], [place] [address], [place] [phone] * Hemoglobin and Hematocrit (07/02/2024 9:17 AM EST) Hemoglobin 12.0 11.7 - 15.5 g/dL 07/02/2024 9:38 AM EST [facility] Hematocrit 37.1 35.7 - 45.8 % 07/02/2024 9:38 AM EST [facility] Blood Structure of peripheral vein / Unknown Venipuncture / Unknown 07/02/2024 9:17 AM EST 07/02/2024 9:29 AM EST John Hendricks MD LAB BLOOD ORDERABLES Final Resul t [facility] [address] [place] [address], [place] [phone] * Microalbumin, Random Urine with Creatinine (07/02/2024 9:17 AM EST) Creatinine, Urine 55 mg/dL 07/02/2024 2:41 PM EST [facility] Microalbumin, Urine 4 <=20 mg/L 07/02/2024 2:41 PM EST [facility] Microalb/Creat Ratio, Random Urine 7.3 1.3 - 30.0 mg/g 07/02/2024 2:41 PM EST [facility] Urine Voided urine specimen / Unknown Non-Blood Collection / Unknown 07/02/2024 9:17 AM EST 07/02/2024 9:36 AM EST us John Hendricks MD LAB URINE ORDERABLES Final Resul t Performing Organization Address City/[facility] [address]/ZIP Co de Phone Number [facility] [address] [address], [place] [phone] * Protein, Random Urine with Creatinine (07/02/2024 9:17 AM EST) Protein, Urine 6 mg/dL 07/02/2024 2:41 PM EST [facility] Creatinine, Urine 55 mg/dL 07/02/2024 2:41 PM EST [facility] Protein/Creati nine Ratio 109 <200 mg/gmCr 07/02/2024 2:41 PM EST [facility] Urine Voided urine specimen / Unknown Non-Blood Collection / Unknown 07/02/2024 9:17 AM EST 07/02/2024 9:36 AM EST us John Hendricks MD LAB URINE ORDERABLES Final Resul t Performing Organization Address [facility] Co de Phone Number [facility] [address] [address], [place] [phone] * (ABNORMAL) Vitamin D, 25-Hydroxy, Total, Immunoassay (07/02/2024 9:17 AM EST) Only the most recent of2 resultswithin the time period is included. Vitamin D 25-OH 22.50(L) 30.00 - 80.00 ng/mL 07/02/2024 11:24 AM EST [facility] Blood Structure of peripheral vein / Unknown Venipuncture / Unknown 07/02/2024 9:17 AM EST 07/02/2024 9:29 AM EST us John Hendricks MD LAB BLOOD ORDERABLES Final Resul t Performing Organization Address [facility] Co de Phone Number [facility] [address] [address], [place] [phone] * (ABNORMAL) PTH, Intact (without Calcium) (07/02/2024 9:17 AM EST) Parathyroid Hormone, Intact 226.0(H) 14.5 - 87.1 pg/mL 07/02/2024 11:19 AM EST [facility] Comment: This test was performed [...] Resul t Performing Organization Address [facility] de Phone Number [facility] [address] [place] [address], [place] [phone] * Magnesium (07/02/2024 9:17 AM EST) Pathologist [facility] MG 1.9 1.5 - 2.5 mg/dL 07/02/2024 10:01 AM EST [facility] Blood Structure of peripheral vein / Unknown Venipuncture / Unknown 07/02/2024 9:17 AM EST 07/02/2024 9:29 AM EST us John Hendricks MD LAB BLOOD ORDERABLES Final Resul t Performing Organization Address City/[facility] [address]/[facility] Co de Phone Number [facility] [address] [place] [address], [place] [phone] * (ABNORMAL) Renal Function Panel (07/02/2024 9:17 AM EST) Pathologist [facility] NA 138 136 - 145 mmol/L 07/02/2024 10:02 AM EST [facility] K 4.4 3.5 - 5.1 mmol/L 07/02/2024 10:02 AM EST [facility] Comment:ALL DELTAS REVIEWED Cl 101 98 - 109 mmol/L 07/02/2024 10:02 AM EST [facility] CO2 26 22 - 32 mmol/L 07/02/2024 10:02 AM [facility] Anion Gap 15 >=0 07/02/2024 10:02 AM EST [facility] Glucose 115(H) 60 - 99 mg/dL 07/02/2024 10:02 AM [facility] BUN 37(H) 8 - 23 mg/dL 07/02/2024 10:02 AM [facility] Creatinine 1.47(H) 0.50 - 1.12 mg/dL 07/02/2024 10:02 AM [facility] Calcium 8.8 8.4 - 10.4 mg/dL 07/02/2024 10:02 AM [facility] Phosphorus 3.6 2.5 - 4.5 mg/dL 07/02/2024 10:02 AM [facility] Albumin 3.8 3.5 - 5.0 g/dL 07/02/2024 10:02 AM [facility] eGFR 38(L) >=60 mL/min/1. 73m2 07/02/2024 10:02 AM EST [facility] [facility] Comment:The estimated glomer ular [...] MD LAB BLOOD ORDERABLES Final Resul t [facility] [address] [place] [address], [place] [phone] * X-Ray Abdomen 1 View (06/26/2024 12:39 [...] obtain the completed interpretation. ? Workstation ID: [id number] Narrative 06/26/2024 2:05 PM EST EXAMINATION: ??XR ABDOMEN 1 VW INDICATION: RLQ abdominal pain, constipation COMPARISONS: None Resulting Agency Comment [id number] Procedure Note Calvin Katz MD - 06/26/2024 [...] possible to obtain thecompleted interpretation. Workstation ID: [id number] us Tia Oh [employer]END[employer] SUPERVISOR IMG XR PROCEDURES Final Result * (ABNORMAL) CBC (06/26/2024 6:22 AM EST) Only the most recent of5 resultswithin the time period is included. WBC 15.0(H) 4.8 - 10.8 10*3/uL 06/26/2024 6:42 AM EST [facility] RBC 4.51 4.20 - 5.40 10*6/uL 06/26/2024 6:42 AM EST [facility] Hemoglobin 13.1 11.7 - 15.5 g/dL 06/26/2024 6:42 AM EST [facility] Hematocrit 40.5 35.7 - 45.8 % 06/26/2024 6:42 AM EST [facility] MCV 89.8 81.0 - 99.0 fL 06/26/2024 6:42 AM EST [facility] MCH 29.0 26.0 - 34.0 pg 06/26/2024 6:42 AM EST [facility] MCHC 32.3 31.0 - 36.0 g/dL 06/26/2024 6:42 AM EST [facility] RDW 13.2 12.0 - 15.0 % 06/26/2024 6:42 AM EST [facility] Platelets 220 140 - 440 10*3/uL 06/26/2024 6:42 AM EST [facility] MPV 9.4 9.4 - 12.3 fL 06/26/2024 6:42 AM EST [facility] RDW Standard Deviation 43.5 36.4 - 46.3 fL 06/26/2024 6:42 AM EST [facility] Blood Structure of peripheral vein / Unknown Venipuncture / Unknown 06/26/2024 6:22 AM EST 06/26/2024 6:39 AM EST Olivia Arteaga [employer]END[employer] SUPERVISOR LAB BLOOD ORDERABLES Final Result [facility] [address] [place] [address], * ECG 12 lead (06/24/2024 9:50 AM EST) Only the most recent of3 resultswithin the time period is included. Ventricular Rate EKG 73 BPM MUSE EKG Atrial Rate 73 BPM MUSE EKG PA Interval 228 ms MUSE EKG QRS Interval 128 ms MUSE EKG QT Interval 384 ms MUSE EKG QTC Interval 423 ms MUSE EKG P Sharon 65 degrees MUSE EKG R Sharon 41 degrees MUSE EKG T Wave Sharon 61 degrees MUSE EKG 06/24/2024 9:50 AM EST 06/24/2024 5:36 PM EST Impressions MUSE EKG - 06/24/2024 5:36 PM EST Sinus rhythm with 1st degree AV block with occasional premature ventricular complexes Nonspecific intraventricular block When compared with ECG of 21-JUN-2024 07:26, No significant change was found Confirmed by Stephanie Hampton ([id number]) on 06/24/2024 5:36:28 PM Olivia Arteaga [employer] SUPERVISOR ECG ORDERABLES Final Resul t MUSE EKG * (ABNORMAL) Potassium (06/23/2024 10:05 AM EST) K 5.6(H) 3.5 - 5.1 mmol/L 06/23/2024 10:58 AM EST [facility] Comment:REVIEWED Blood Structure of peripheral vein / Unknown Venipuncture / Unknown 06/23/2024 10:05 AM EST 06/23/2024 10:36 AM EST Narrative [facility] - 06/23/2024 10:58 AM EST Please check heparinized potassium, TY. Sydney David [employer] SUPER[employer]OR LAB BLOOD ORDERABLES Final Result [facility] [address] [place] [address] [address] [place] [address], [place] [phone] * Lavender Top (06/22/2024 6:53 AM EST) Only the most recent of2 resultswithin the time period is included. Extra Tube Hold for add-ons. 06/22/2024 11:05 AM EST [facility] Comment:Auto resulted. Blood Structure of peripheral vein / Unknown 06/22/2024 6:53 AM EST 06/22/2024 6:53 AM EST us Mj Mendenhall MD LAB BLOOD ORDERABLES Final R esult [facility] [address] [address] [place] [address], [place] [phone] * Troponin T, High Sensitivity (06/20/2024 10:19 AM EST) Only the most recent of3 resultswithin the time period is included. Troponin T High Sensitivity 14 6 - 14 ng/L 06/20/2024 11:08 AM EST [facility] Comment: Kc-Jtqhvjht-B level of 52 ng/L or higher at [...] be evaluated in line with the 4th [place] Definition of AMI. Troponin baseline and serial [...] BLOOD ORDERABLES Final R esult [facility] [address] [address], [place] [phone] * (ABNORMAL) Respiratory Culture (06/20/2024 7:37 AM EST) Respiratory Culture Moderate Rayna albicans(A) [facility] 06/22/2024 11:29 AM EST [facility] Gram Stain Result <25 per LPF White Blood Cells Seen 06/22/2024 11:29 AM EST [facility] Gram Stain Result <10 per LPF Epithelial Cells 06/22/2024 11:29 AM EST [facility] Gram Stain Result Rare Gram Positive Cocci in pairs 06/22/2024 11:29 AM EST [facility] Sputum Sputum / Unknown Non-Blood Collection / Unknown 06/20/2024 7:37 AM EST 06/20/2024 7:54 AM EST Narrative [facility] - 06/22/2024 11:29 AM EST Many normal respiratory beena present. us Rosanna Marie NP LAB MICROBIOLOGY - GENERAL ORDER RHINA Final Result Performing Organization Address City/[facility] [address]/ZIP Co de Phone Number [facility] [address] [place] [address], [place] [phone] * Streptococcus Pneumoniae Antigen Urine (06/18/2024 6:44 PM EST) Streptococcus pneumoniae Antigen, Urine Negative Negative [facility]UAL 06/19/2024 8:53 AM EST [facility] Comment: INTERPRETATION: Presumptive negative for [...] ORDERABLES Final R esult Performing Organization Address City/[facility] [address]/ZIP Co de Phone Number [facility] [address] [address], [place] [phone] * Legionella Antigen, Urine (06/18/2024 6:44 PM EST) Legionella pneumophila Urine Ag Negative Negative [facility] 06/19/2024 8:53 AM EST [facility] Comment: INTERPRETATION: Presumptive negative for [...] PM EST 06/18/2024 7:15 PM EST Narrative [facility] - 06/19/2024 8:53 AM EST [...] MD LAB URINE ORDERABLES Final R esult [facility] [address] [place] [address] [address] [place] [address], * XR Chest Portable 1 View (06/18/2024 [...] obtain the completed interpretation. ? Workstation ID: [id number] Narrative 06/20/2024 10:17 AM EST EXAMINATION: XR CHEST PORTABLE 1 VIEW COMPARISON: CT chest pulmonary angiogram 06/15/2024 and other priors. FINDINGS: Lines/Tubes/Devices: None. Lungs: Redemonstrated left basilar consolidation. Pleura: No pleural effusions or pneumothorax. Heart/Mediastinum: Cardiomediastinal silhouette is similar to prior. Bones/Soft tissues: No acute osseous abnormality. Resulting Agency Comment [id number] Procedure Note Apolonia Nolen MD - 06/20/2024 [...] possible to obtain thecompleted interpretation. Workstation ID: [id number] us Tia Oh [employer] SUPERVISOR IMG XR PROCEDURES Final Result * (ABNORMAL) CBC Auto Differential (06/17/2024 7:03 AM EST) Only the most recent of2 resultswithin the time period is included. WBC 11.6(H) 4.8 - 10.8 10*3/uL 06/17/2024 7:30 AM EST [facility] RBC 3.94(L) 4.20 - 5.40 10*6/uL 06/17/2024 7:30 AM EST [facility] Hemoglobin 11.7 11.7 - 15.5 g/dL 06/17/2024 7:30 AM EST [facility] Hematocrit 35.4(L) 35.7 - 45.8 % 06/17/2024 7:30 AM EST [facility] MCV 89.8 81.0 - 99.0 fL 06/17/2024 7:30 AM EST [facility] MCH 29.7 26.0 - 34.0 pg 06/17/2024 7:30 AM [facility] MCHC 33.1 31.0 - 36.0 g/dL 06/17/2024 7:30 AM [facility] RDW 12.9 12.0 - 15.0 % 06/17/2024 7:30 AM [facility] RDW Standard Deviation 42.6 36.4 - 46.3 fL 06/17/2024 7:30 AM [facility] Platelets 257 140 - 440 10*3/uL 06/17/2024 7:30 AM [facility] Comment:REV IEWED MPV 10.0 9.4 - 12.3 fL 06/17/2024 7:30 AM [facility] Neutrophil % 81.6(H) 50.0 - 75.0 % 06/17/2024 7:30 AM [facility] Immature Grans % 0.8 0.0 - 0.9 % 06/17/2024 7:30 AM [facility] Lymphocyte % 11.8(L) 20.0 - 44.0 % 06/17/2024 7:30 AM [facility] Monocyte % 5.6 0.0 - 14.0 % 06/17/2024 7:30 AM [facility] Eosinophil % 0.0 0.0 - 5.0 % 06/17/2024 7:30 AM [facility] Basophil % 0.2 0.0 - 2.0 % 06/17/2024 7:30 AM [facility] Neutrophil # 9.48(H) 1.80 - 7.70 10*3/uL 06/17/2024 7:30 AM [facility] Immature Grans # 0.09(H) 0.00 - 0.03 10*3/uL 06/17/2024 7:30 AM [facility] Lymphocyte # 1.40 1.00 - 4.75 10*3/uL 06/17/2024 7:30 AM [facility] Monocyte # 0.70(H) 0.00 - 0.60 10*3/uL 06/17/2024 7:30 AM EST [facility] Eosinophil # <0.03 0.00 - 0.80 10*3/uL 06/17/2024 7:30 AM EST [facility] Basophil # <0.03 0.00 - 0.20 10*3/uL 06/17/2024 7:30 AM EST [facility] nRBC % 0.0 0 - 0 /100 WBCs 06/17/2024 7:30 AM EST [facility] nRBC # <0.01 0.00 - 0.13 10*3/uL 06/17/2024 7:30 AM EST [facility] Blood Structure of peripheral vein / Unknown Venipuncture / Unknown 06/17/2024 7:03 AM EST 06/17/2024 7:22 AM EST Mj Mendenhall MD LAB BLOOD ORDERABLES Final R esult Performing Organization Address City/[facility] [address]/ZIP Co de Phone Number [facility] [address] [address], [place] [phone] * Light Green Top (06/16/2024 7:54 AM EST) Extra Tube Hold for add-ons. 06/16/2024 12:05 PM EST [facility] Comment:Auto resulted. Blood Structure of peripheral vein / Unknown 06/16/2024 7:54 AM EST 06/16/2024 7:54 AM EST Mj Mendenhall MD LAB BLOOD ORDERABLES Final R esult Performing Organization Address City/[facility] [address]/ZIP Co de Phone Number [facility] [address] [address], [place] [phone] * Mycoplasma pneumoniae Antibodies, IgG/IgM (06/16/2024 7:42 AM EST) M. pneumoniae Ab, IgG <=0.90 <=0.90 06/19/2024 10:04 PM EST [facility]ILARY MARTINEZ (DERICK) Comment: ? Reference Range: ? <=0.90 [...] <770 U/mL 06/19/2024 10:04 PM EST HILARY HARVEY) Comment: Reference Range: ?<770 U/ml ?Negative [...] EST 06/16/2024 7:53 AM EST Narrative HILARY SAMOA - 06/19/2024 10:04 PM EST [facility] Received Date: us Mj Mendenhall MD LAB BLOOD ORDERABLES Final R esult HILARY DAVID [address] [facility] [address], [place] [address], HILARY HARVEY) [address] [place] [address], [place] * CT Chest PE (06/15/2024 11:49 [...] obtain the completed interpretation. ? Workstation ID: [id number] Up-to-date CT equipment and radiation dose reduction [...] possible to obtain thecompleted interpretation. Workstation ID: [id number] Up-to-date CT equipment and radiation dose reduction techniques wereemployed. CTDIvol: .8 - 21.4 mGy. DLP: 802 mGy-cm. Kevin Newsome MD IMIman CT PROCEDURES Final Result * Blood Culture (06/15/2024 10:17 PM EST) Only the most recent of2 resultswithin the time period is included. Blood Culture No growth after 5 days 06/20/2024 11:05 PM EST [facility] Blood Structure of peripheral vein / Unknown Venipuncture / Unknown 06/15/2024 10:17 PM EST 06/15/2024 10:39 PM EST us Kevin Newsome MD LAB MICROBIOLOGY - GENERAL ORDER RHINA Final Result Performing Organization Address City/[facility] [address]/ZIP Co de Phone Number [facility] [address] [address], [place] [phone] * Lactic Acid, Plasma (06/15/2024 10:17 PM EST) Lactic Acid 0.7 0.5 - 2.2 mmol/L 06/15/2024 11:02 PM EST [facility] Blood Structure of peripheral vein / Unknown Venipuncture / Unknown 06/15/2024 10:17 PM EST 06/15/2024 10:31 PM EST us Kevin Newsome MD LAB BLOOD ORDERABLES Final Resul t Performing Organization Address [facility] Co de Phone Number [address] [address], [place] [phone] * (ABNORMAL) Blood gas, venous (06/15/2024 10:17 PM EST) pH, Venous 7.24(LL) 7.35 - 7.45 06/16/2024 2:54 AM EST [facility] RT pCO2, Venous 57.0 mm[Hg] 06/16/2024 2:54 AM EST [facility] RT pO2, Keegan 138.0 mm[Hg] 06/16/2024 2:54 AM EST [facility] RT HCO3, Venous 22 mmol/L 06/16/2024 2:54 AM EST [facility] RT O2 Sat, Venous 97.8 % 06/16/2024 2:54 AM EST [facility] RT Base Excess, Keegan -3.6 mmol/L 06/16/2024 2:54 AM EST [facility] RT Blood Structure of peripheral vein / Unknown Venipuncture / Unknown 06/15/2024 10:17 PM EST 06/16/2024 2:52 AM EST us Kevin Newsome MD LAB BLOOD ORDERABLES Final Resul t [facility] [address] [place] [address], [place] * COVID-19, Flu A/B & RSV RNA PCR, Symptomatic (06/15/2024 7:58 PM EST) PCR, SARS CoV-2 RNA Not Detected Not Detected [employer]ERT 06/15/2024 8:48 PM EST [facility] Flu A RNA PCR Not Detected Not Detected [employer]EXPERT 06/15/2024 8:48 PM EST [facility] Flu B RNA PCR Not Detected Not Detected [employer]EXP[employer] 06/15/2024 8:48 PM EST [facility] RSV RNA PCR Not Detected Not Detected CEPHEID [employer]EXPERT 06/15/2024 8:48 PM EST [facility] Comment: Limitations: This RSV test [...] PM EST 06/15/2024 8:09 PM EST Narrative [facility] 06/15/2024 8:48 PM EST Methodology: The Synesis GeneXpert CoV-2/Flu/RSV plus assay is For Use Under an Emergency Use Authorization (EUA) Only with [employer]. The CoV-2/Flu/RSV plus assay is a [...] FLUIDS AND STOOLS O RDERABLES Final Result [facility] [address] [address] [place] [address], * HEART & VASCULAR - SCANNED (06/15/2024) Only the most recent of3 resultswithin the time period is included. Anatomical Region Laterality Modality Other us Onbase Scan Froylan SCANNED PROCEDURES Final Resu lt * COLONOSCOPY (09/01/2014 2:57 PM EDT) Narrative [...] were monitored continuously. 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
--- OUTSIDE RECORDS SUMMARY | 2024-09-05 07:29 | XMS_ITS | Clinical Summary ---
Author Organization [facility] Address [address] [place] [address] Care Team Providers Care Epic Trainer Name Role Phone Bijal Fox NP Primary Care Provider [phone] Allergies Active Allergy Reactions Criticality Noted Date Comments Lansoprazole Indigestion Medium Otakyzx-Fyu-Blf Reductase Inhibitors Muscle Pain Medium Per pt [...] on admission by SpO2 88% requiring 3-4L CHIEF MATE. Tachypnea with RR increased to 22 RPM. She is not home-O2 dependent. -Wean supplemental O2 as tolerated, presently om room air -Taper steroids -Continue supportive therapy with nebulized bronchodilators, ICS and multiple antitussives. -Avoid increasing Tramadol in setting of COPD/asthma. Assessment & Plan (06/23/2024 4:18 PM EST): Acute Resp Failure: Evidenced on admission by SpO2 88% requiring 3-4L CHIEF MATE. Tachypnea with RR increased to 22 RPM. She is not home-O2 dependent. Presently weaned to 2L CHIEF MATE, but still coarse with rhonchus cough. Reduced IV steroids as no wheezing on exam and she appears tearful and depressed. Continue supportive therapy with nebulized bronchodilators, ICS and multiple antitussives. Avoid increasing Tramadol in setting of COPD/asthma. Assessment & Plan (06/22/2024 5:42 PM EST): Acute Resp Failure: Evidenced on admission by SpO2 88% requiring 3-4L CHIEF MATE. Tachypnea with RR increased to 22 RPM. She is not home-O2 dependent. Presently weaned to 2L CHIEF MATE, but still coarse with rhonchus cough. Reduced [...] Team Description 08/26/2024 8:45 AM EDT Follow-Up [address] Podiatry Department [address] [place] [address] Yesika Don DPM Posterior tibial tendon dysfunction (PTTD) of left lower extremity (Primary Dx); Pre-op evaluation; Pes planus of left foot; Chronic pain of left ankle 08/23/2024 11:36 AM EDT - 08/23/2024 11:59 PM EDT Hospital Encounter [facility] Mammography Department [address] [place] [phone] Screening mammogram for breast cancer Discharge Disposition: Home or Self Care () 08/20/2024 Results Follow-Up [address] Podiatry Department [address] [place] [address] Yesika Don DPM 08/16/2024 10:36 AM EDT - 08/16/2024 11:59 PM EDT Hospital Encounter [facility] @ [address] [address] Yesika Don DPM Pes planus of left foot; Posterior tibial tendon dysfunction (PTTD) of left lower extremity Discharge Disposition: Home or Self Care () 08/13/2024 Orders Only [facility] Lab [address] [place] [address] Magy Sawyer, MEY Vitamin D deficiency (Primary Dx) 08/09/2024 2:40 PM EDT Lab [facility] Draw Site Department [address] [place] [address] Hyperlipidemia, unspecified hyperlipidemia type (Primary Dx); Hypothyroidism, unspecified type; Swelling of limb 08/08/2024 2:30 PM EDT Office Visit [address] Podiatry Department [address] [place] [address] Yesika Don DPM Posterior tibial tendon dysfunction (PTTD) of left lower extremity (Primary Dx); Pes planus of left foot 08/05/2024 1:56 PM EDT - 08/05/2024 11:59 PM EDT Hospital Encounter [facility] Ultrasound Department [address] [place] [address] John Hendricks MD CKD stage 3a, GFR 45-59 ml/min; Chronic heart failure with preserved ejection fraction Discharge Disposition: Home or Self Care () 08/05/2024 Results Follow-Up [facility] Nephrology [address] [facility] [address] [place] [address] John Hendricks MD 08/01/2024 2:00 PM EDT Follow-Up [facility] Nephrology [address] [address] John Hendricks MD Hyperkalemia (Primary Dx); CKD stage 3a, GFR 45-59 ml/min; Chronic heart failure with preserved ejection fraction; Primary hypertension 07/31/2024 12:09 PM EDT - 07/31/2024 11:59 PM EDT Hospital Encounter [facility] XRay [address] [place] [address] Sonny Reed MD Pain Discharge Disposition: Home or Self Care () 07/31/2024 10:15 AM EDT - 07/31/2024 12:08 PM EDT Hospital Encounter [facility] Spine Procedure Clinic [address] [place] [address] Sonny Reed MD Chronic left shoulder pain (Primary Dx); Left shoulder pain, unspecified chronicity Discharge Disposition: Home or Self Care () 07/22/2024 11:15 AM EST Office Visit [facility] [address] [place] [address] Marvin, AYAD Gil Primary osteoarthritis of left shoulder (Primary Dx); Rotator cuff tear arthropathy of left shoulder 07/22/2024 11:08 AM EST - 07/22/2024 11:59 PM EST Hospital Encounter [facility] XRay [address] [place] [address] Acute pain of left shoulder Discharge Disposition: Home or Self Care () 07/20/2024 Orders Only [facility] Site Department [address] [place] [address] Magy Sawyer NP Swelling of limb (Primary Dx) 07/19/2024 12:10 PM EST Lab [facility] Site Department [address] [place] [address] Swelling of lower extremity (Primary Dx); Urinary tract infection without hematuria, site unspecified 07/16/2024 10:45 AM EST - 07/16/2024 11:59 PM EST Hospital Encounter [facility] Xray Department [address] [place] [address] Heart failure, unspecified HF chronicity, unspecified heart failure type Discharge Disposition: Home or Self Care () 07/16/2024 Lab Requisition [facility] [address] [place] [address] Bijal Fox NP Urinary tract infection, site not specified 07/16/2024 Orders Only [facility] Department [address] [place] [address] Bijal Fox NP Urinary tract infection without hematuria, site unspecified (Primary Dx) 07/13/2024 10:30 AM EST Lab [facility] Department [address] [place] [address] Heart failure, unspecified HF chronicity, unspecified heart failure type (Primary Dx); Hyperlipidemia, unspecified hyperlipidemia type; 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 Orders Only [facility] [address] [place] [address] Magy Sawyer NP Hyperlipidemia, unspecified hyperlipidemia type (Primary Dx); 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/03/2024 2:30 PM EST Office Visit [address] Cardiology [address] [place] [address] Mabel Onofre NP Diastolic heart failure, unspecified HF chronicity (Primary Dx); Paroxysmal atrial fibrillation; Pulmonary hypertension; BILLIE (obstructive sleep apnea); Benign hypertensive heart disease without congestive heart failure 07/03/2024 Telephone [facility] Case Management Department [address] [place] [address] Mariajose Calvillo RN 07/02/2024 10:05 AM EST Lab [facility] Site Department [address] [place] [address] 07/01/2024 3:15 PM EST Office Visit [facility] Nephrology [address] [place] [address], [address] [place] [address] John Hendricks MD Hyperkalemia (Primary Dx); CKD stage 3a, GFR 45-59 ml/min; Chronic heart failure with preserved ejection fraction; Primary hypertension 07/01/2024 9:05 AM EST Lab [facility] Site Department [address] [place] [address] Diastolic heart failure, unspecified HF chronicity 07/01/2024 Orders Only [address] Cardiology [address] [place] [address] Mabel Onofre NP 06/24/[address] Cardiology [address] [place] [address] Elise Boykin MA TCM 06/23/2024 Lab Requisition [facility] Lab [address] [place] [address] Mj Mendenhall MD Pneumonia due to other specified infectious organisms 06/15/2024 7:35 PM EST - 06/26/2024 6:09 PM EST Hospital Encounter [facility] [address] [address] Kevin Newsome MD Devineni, Praveen, MD Pneumonia of left lung due to infectious organism, unspecified part of lung (Primary Dx); Acute hypoxic respiratory failure Discharge Disposition: Home with Services (06) from Last 3 Months Immunizations Immunization Administration [...] = 0.6 oz pur e alcohol) [facility] Utilities Answer Date Recorded In the past 12 months has e [employer], gas, oil, or water [employer] threatened to shut off services in your [...] Info) Description 09/18/2024 11:00 AM EDT Follow-Up [facility] [address] [place] [address] Marvin, AYAD Gil [address] [place] [address] 09/23/2024 1:30 PM EDT Appointment [facility] Pre-Testing Department [address] [place] [address] 09/30/2024 10:55 AM EDT Hospital Encounter [facility] OR [address] [place] [address] Nima Solorio MD [address] [place] [address] 09/30/2024 10:55 AM EDT - 09/30/2024 11:24 AM EDT Surgery [facility] OR [address] [place] [address] Nima Solorio MD [address] [place] [address] CATARACT EXTRACTION WITH INSERTION OF INTRAOCULAR LENS IMPLANT [62506 (CPT??)] 10/03/2024 3:00 PM EDT Follow-Up [facility] Nephrology [address] [place] [address] [address] [place] [address] John Hendricks MD [address] [place] [address] 10/21/2024 10:20 AM EDT Hospital Encounter [facility] OR [address] [place] [address] Nima Solorio MD [address] [place] [address] 10/21/2024 10:20 AM EDT - 10/21/2024 10:49 AM EDT Surgery [facility] OR [address] [place] [address] Nima Solorio MD [address] [place] [address] CATARACT EXTRACTION WITH INSERTION OF INTRAOCULAR LENS IMPLANT [11265 (CPT??)] 01/08/2025 10:00 AM EDT Follow-Up [address] Building Cardiology [address] [place] [address] Mabel Onofre NP [address] [place] [address] Scheduled Procedures Name Priority Associated Diagnoses Date/Ti [...] left foot Chronic pain of left ankle Health Maintenance Due Date Last Done Comments RSV Vaccine (60+ years old and patients) (1 - Risk 60-74 years 1-dose series) 2011 Zoster Vaccines (2 of 3) 03/07/2016 01/11/2016 Colonoscopy 09/02/2019 09/01/2014 COVID-19 Vaccine (1 - season) 2024 Alcohol/Substance Use Screening 05/22/2024 Depression Screening and Follow-Up 05/22/2024 Health Care Proxy Review 05/22/2024 Influenza Vaccine (Season Ended) 2025 02/18/2018, 06/15/2017, 03/11/2016 Basic Metabolic Panel 02/09/2025 08/09/2024 , 07/19/2024, 07/13/2024, Additional history exists Social Drivers of Health [...] (2 - Td or Tdap) 01/10/2026 01/11/2016 Mammogram 08/23/2026 08/23/2024, 11/0 10/2022, 12/25/2019, Additional history exists Pneumococcal Vaccine: 50+ Years Completed 06/27/2018, 06/15/2017 Hepatitis C Screening Completed 08/17/2018 Osteoporosis Screening Completed 01/22/2020 Hepatitis B Vaccines Aged Out No long er eligible based on patient's age to complete this topic Procedures * Due to [place] state law, this organization might not be [...] AM EDT Left shoulder pain, unspecified chronicity VA ARTHROCENTESIS ASPIR&/INJ MAJOR JT/BURSA W/O US Routine [...] to Health Maintenance Results * Due to [place] state law, this organization might not be sharing negative HIV tests. * (ABNORMAL) TRUDI Bilateral Screening Digital Mammogram With Miguel (08/23/2024 11:56 AM EDT) Anatomical Region Laterality Modality Breast Bilateral Mammography Narrative 09/03/2024 10:18 AM EDT Genie Vora Exam Date: 08/23/[address] [address] EXAMINATION TRUDI Bilateral Screening Digital Mammogram With [...] annual mammography, ideally staggered at 6-month intervals. [email or web address] Francisco J Garza MD If this radiology report contains a blank impression section, it is an incomplete radiology report. ??Please contact the interpreting radiologist or applicable radiology division as soon as possible to obtain the completed interpretation. Resulting Agency Comment [id number] us Magy Sawyer CHIEF MATE IMG BI PROCEDURES Final Result * MRI [...] in the setting of sinus Tarsi syndrome. I, Ruperto Huang, have reviewed the examination and concur with the findings as reported or so edited. Trainee: ??Calvin Sanchez If this radiology report contains a blank impression section, it is an incomplete radiology report. ??Please contact the interpreting radiologist or applicable radiology division as soon as possible to obtain the completed interpretation. ? Workstation ID: [id number] Narrative 08/19/2024 2:15 PM EDT INDICATION: Left [...] subcutaneous edema, greatest medially. Resulting Agency Comment [id number] Procedure Note Ruperto Huang MD - 08/19/2024 [...] possible to obtain thecompleted interpretation. Workstation ID: [id number] us Yesika Don DPConstantino IMG MRI PROCEDURES Final Resu lt * N-terminal ProBrain Natriuretic Peptide - [facility] & MEM/LONI/Nicole Only (08/09/2024 1:16 PM EDT) Only the most recent of7 resultswithin the time period is included. Pro-B-Type Natriuretic Peptide 203 <=900 pg/mL 08/09/2024 2:31 PM EDT [facility] Comment: RULE IN CHF [...] 08/09/2024 1:33 PM EDT us Magy Sawyer CHIEF MATE LAB BLOOD ORDERABLES Final Res ult Performing Organization Address [facility]/ZIP Co de Phone Number [facility] [address] [place] [address], [place] [phone] * TSH Reflex Free T4 (08/09/2024 1:16 PM EDT) TSH 2.850 0.270 - 4.200 uIU/mL 08/09/2024 2:21 PM EDT [facility] Blood Structure of peripheral vein / Unknown Venipuncture / Unknown 08/09/2024 1:16 PM EDT 08/09/2024 1:33 PM EDT us Magy Sawyer CHIEF MATE LAB BLOOD ORDERABLES Final Res ult Performing Organization Address [facility] Co de Phone Number [facility] [address] [place] [address], [place] [phone] * Lipid panel (08/09/2024 1:16 PM EDT) Only the most recent of2 resultswithin the time period is included. Cholesterol 235 mg/dL 08/09/2024 2:21 PM EDT [facility] Comment: DESIRABLE: <200 mg/dL BORDERLINE HIGH: 200-239 mg/dL HIGH: >239 mg/dL Triglycerides 174 mg/dL 08/09/2024 2:21 PM EDT [facility] Comment: NORMAL: <150 mg/dL BORDERLINE HIGH: 150-199 mg/dL HIGH: 200-499 mg/dL VERY HIGH >499 mg/dL Cholesterol, HDL 66 mg/dL 08/10/19 2:21 PM EDT [facility] Comment: DESIRABLE: >60 mg/dL BORDERLINE: 40-59 mg/dL UNDESIRABLE: <40 mg/dL LDL Cholesterol 134 mg/dL 2:21 PM EDT [facility] Comment: OPTIMAL: <100 mg/dL NEAR OPTIMAL: <130 mg/dL BORDERLINE HIGH: 130-159 mg/dL HIGH: 160-189 mg/dL VERY HIGH: >189 mg/dL VLDL 34.8 mg/dL 08/09/2024 2:21 PM EDT [facility] Cholesterol/HDL Ratio 3.6 08/09/2024 2:21 PM EDT [facility] Blood Structure of peripheral vein / Unknown Venipuncture / Unknown 08/09/2024 1:16 PM EDT 08/09/2024 1:33 PM EDT us Magy Sawyer CHIEF MATE LAB BLOOD ORDERABLES Final Res ult [facility] [address] [facility] [address] [place] [address], [place] [phone] * (ABNORMAL) Comprehensive Metabolic Panel (08/09/2024 1:16 PM EDT) Only the most recent of3 resultswithin the time period is included. NA 141 136 - 145 mmol/L 08/09/2024 2:21 PM EDT [facility] K 4.3 3.5 - 5.1 mmol/L 08/09/2024 2:21 PM EDT [facility] Cl 103 98 - 109 mmol/L 08/09/2024 2:21 PM EDT [facility] CO2 27 22 - 32 mmol/L 08/09/2024 2:21 PM EDT [facility] Anion Gap 15 >=0 08/09/2024 2:21 PM EDT [facility] Glucose 95 60 - 99 mg/dL 08/09/2024 2:21 PM EDT [facility] Creatinine 1.37(H) 0.50 - 1.12 mg/dL 08/09/2024 2:21 PM EDT [facility] Calcium 9.4 8.4 - 10.4 mg/dL 08/09/2024 2:21 PM EDT [facility] Total Protein 6.5(L) 6.6 - 8.7 g/dL 08/09/2024 2:21 PM EDT [facility] Albumin 3.9 3.5 - 5.0 g/dL 08/09/2024 2:21 PM EDT [facility] Bilirubin, Total 0.2 0.2 - 1.2 mg/dL 08/09/2024 2:21 PM EDT [facility] Alkaline Phosphatase 108 40 - 129 U/L 08/09/2024 2:21 PM EDT [facility] AST 18 0 - 33 U/L 08/09/2024 2:21 PM EDT [facility] ALT 19 <=33 U/L 08/09/2024 2:21 PM T [facility] BUN 24(H) 8 - 23 mg/dL 08/09/2024 2:21 PM EDT [facility] eGFR 41(L) >=60 mL/min/1. 73m2 08/09/2024 2:21 PM EDT [facility] Comment:The estimated glomer ular [...] - 4.2 g/dL 08/09/2024 2:21 PM EDT [facility] A/G Ratio 1.5 1.5 - 3.0 08/09/2024 2:21 PM EDT [facility] Blood Structure of peripheral vein / Unknown Venipuncture / Unknown 08/09/2024 1:16 PM EDT 08/09/2024 1:33 PM EDT Magy Sawyer CHIEF MATE LAB BLOOD ORDERABLES Final Res ult [facility] [address] [place] [address] [address] [place] [address], [place] [phone] * XR Ankle 3+ vw Left Weight [...] obtain the completed interpretation. ? Workstation ID: [id number] Narrative 08/05/2024 7:57 PM EDT EXAMINATION: Ultrasound [...] volume is 15 mL. Resulting Agency Comment [id number] Procedure Note Mary Brown MD - 08/05/2024 [...] possible to obtain thecompleted interpretation. Workstation ID: [id number] us John Hendricks MD IMG US PROCEDURES Final Result * FL C-Arm with Images NONREPORTABLE (07/31/2024 10:49 AM EDT) Narrative IMAGING - 07/31/2024 12:28 PM EDT This procedure does not contain a result. Please see the surgeon's note for official report. us Sonny Reed MD IMG FLUOROSCOPY PROCEDURES Fin al Result IMAGING * VA ARTHROCENTESIS ASPIR&/INJ MAJOR JT/BURSA W/O US, CHG [...] Patient's understanding of procedure matches consent: Yes [place] Protocol: ? Procedure consent matches procedure scheduled: [...] obtain the completed interpretation. ? Workstation ID: [id number] Narrative 07/22/2024 1:20 PM EST COMPARISON: ??There are no prior studies available for comparison at this time. ?? FINDINGS AND Resulting Agency Comment [id number] Procedure Note Rupali Barrios MD - 07/22/2024 [...] possible to obtain thecompleted interpretation. Workstation ID: [id number] us Jeffery LION IMG XR PROCEDURES Final Result * Urine Culture, Routine (07/19/2024 10:59 AM EST) Only the most recent of2 resultswithin the time period is included. Pathologist [facility] Urine Culture <10,000 CFU/mL mixed gram positives; multiple organisms are present, suggestive of contamination at the time of collection. [place] MANUAL 07/20/2024 8:13 AM EST [facility] Urine Urine specimen collection, clean catch / Unknown Non-Blood Collection / Unknown 07/19/2024 10:59 AM EST 07/19/2024 11:16 AM EST Bijal Fox NP LAB MICROBIOLOGY - GENERAL MICHAEL CALHOUN Final Result [facility] [address] [place] [address], * (ABNORMAL) Basic Metabolic Panel (07/19/2024 10:59 AM EST) Only the most recent of12 resultswithin the time period is included. Pathologist [facility] NA 142 136 - 145 mmol/L 07/19/2024 11:41 AM EST [facility] K 4.0 3.5 - 5.1 mmol/L 07/19/2024 11:41 AM EST [facility] Cl 103 98 - 109 mmol/L 07/19/2024 11:41 AM EST [facility] CO2 29 22 - 32 mmol/L 07/19/2024 11:41 AM EST [facility] BUN 22 8 - 23 mg/dL 07/19/2024 11:41 AM EST [facility] Creatinine 1.42(H) 0.50 - 1.12 mg/dL 07/19/2024 11:41 AM EST [facility] Glucose 108(H) 60 - 99 mg/dL 07/19/2024 11:41 AM EST [facility] Calcium 8.9 8.4 - 10.4 mg/dL 07/19/2024 11:41 AM EST [facility] Anion Gap 14 >=0 07/19/2024 11:41 AM EST [facility] eGFR 39(L) >=60 mL/min/1. 73m2 07/19/2024 11:41 AM EST [facility] Comment:The estimated glomer ular [...] NP LAB BLOOD ORDERABLES Final Res ult [facility] [address] [place] [address], * X-Ray Chest 2 Views (07/16/2024 11:04 [...] obtain the completed interpretation. ? Workstation ID: [id number] Narrative 07/17/2024 8:14 AM EST COMPARISON: ??06/22/2024 FINDINGS AND Resulting Agency Comment [id number] Procedure Note Calvin Katz MD - 07/17/2024 COMPARISON: 06/22/2024 FINDINGS AND IMPRESSION: No change. Heart normal. Lungs and pleural spaces clear. Cervical spinefusion hardware noted. If this radiology report contains a blank impression section, it is anincomplete radiology report. Please contact the interpreting radiologistor applicable radiology division as soon as possible to obtain thecompleted interpretation. Workstation ID: [id number] Magy Sawyer NP IMG XR PROCEDURES Final Result * TSH (07/13/2024 10:20 AM EST) Only the most recent of2 resultswithin the time period is included. TSH 3.750 0.270 - 4.200 uIU/mL 07/13/2024 11:15 AM EST [facility] Comment: Females: 1st trimester ? 0.150-4.000 ??IU/mL 2nd trimester ?? 0.310-4.170 ?IU/mL 3rd trimester ?0.380-4.150 ?IU/mL Blood Structure of peripheral vein / Unknown Venipuncture / Unknown 07/13/2024 10:20 AM EST 07/13/2024 10:29 AM EST Magy Sawyer NP LAB BLOOD ORDERABLES Final Res ult Performing Organization Address [facility] de Phone Number [facility] [address] [address], * T4, Free (07/13/2024 10:20 AM EST) Free T4 1.24 0.80 - 1.80 ng/dL 07/13/2024 11:15 AM EST [facility] Comment: Females: (ng/dL) First Trimester [...] Res ult Performing Organization Address [facility] Co de Phone Number [facility] [address] [address], [place] [phone] * (ABNORMAL) Microscopic Urinalysis Only (07/02/2024 9:17 AM EST) RBC, Urine 5-10(A) None Seen, 0-2 /HPF 07/02/2024 10:07 AM EST [facility] WBC, Urine 0-2 None Seen, 0-2 /HPF 07/02/2024 10:07 AM EST [facility] Squamous Epithelial Cells, Urine 0-2 /HPF 07/02/2024 10:07 AM EST [facility] Bacteria, Urine Occasional (A) None Seen /HPF 07/02/2024 10:07 AM EST [facility] Urine Urine specimen collection, clean catch / Unknown Non-Blood Collection / Unknown 07/02/2024 9:17 AM EST 07/02/2024 9:36 AM EST us John Hendricks MD LAB URINE ORDERABLES Final Resul t [facility] [address] [place] [address] [address] [place] [address], * (ABNORMAL) Urinalysis W/Reflex to Microscopic (No Culture) (07/02/2024 9:17 AM EST) Color, Urine Yellow Yellow 07/02/2024 9:44 AM EST [facility] Clarity, Urine Clear Clear 07/02/2024 9:44 AM EST [facility] Specific [place], Urine 1.015 1.005 - 1.030 07/02/2024 9:44 AM EST [facility] pH, Urine 5.5 5.0 - 8.0 07/02/2024 9:44 AM EST [facility] Protein, Urine Negative Negative mg/dL 07/02/2024 9:44 AM EST [facility] Glucose, Urine Negative Negative mg/dL 07/02/2024 9:44 AM EST [facility] Ketones, Urine Negative Negative mg/dL 07/02/2024 9:44 AM EST [facility] Bilirubin, Urine Negative Negative 07/02/2024 9:44 AM EST [facility] Blood, Urine Small(A) Negative 07/02/2024 9:44 AM EST [facility] Nitrite, Urine Negative Negative 07/02/2024 9:44 AM EST [facility] Urobilinogen, Urine 0.2 0.2 - 1.0 E.U./dL 07/02/2024 9:44 AM EST [facility] Leukocyte Esterase, Urine Small(A) Negative 07/02/2024 9:44 AM EST [facility] Urine Urine specimen collection, clean catch / Unknown Non-Blood Collection / Unknown 07/02/2024 9:17 AM EST 07/02/2024 9:36 AM EST John Hendricks MD LAB URINE ORDERABLES Final Resul t [facility] [address] [place] [address] [address] [place] [address], * (ABNORMAL) SPEP (Protein Electrophoresis w/Reflex to [...] LAB BLOOD ORDERABLES Final Resul t [facility] [address] [place] [address] 3rd Floor, [place] [address], [place] [phone] * Hemoglobin and Hematocrit (07/02/2024 9:17 AM EST) Hemoglobin 12.0 11.7 - 15.5 g/dL 07/02/2024 9:38 AM EST [facility] Hematocrit 37.1 35.7 - 45.8 % 07/02/2024 9:38 AM EST [facility] Blood Structure of peripheral vein / Unknown Venipuncture / Unknown 07/02/2024 9:17 AM EST 07/02/2024 9:29 AM EST John Hendricks MD LAB BLOOD ORDERABLES Final Resul t [facility] [address] [place] [address] [address] [place] [address], [place] [phone] * Microalbumin, Random Urine with Creatinine (07/02/2024 9:17 AM EST) Creatinine, Urine 55 mg/dL 07/02/2024 2:41 PM EST [facility] Microalbumin, Urine 4 <=20 mg/L 07/02/2024 2:41 PM EST [facility] Microalb/Creat Ratio, Random Urine 7.3 1.3 - 30.0 mg/g 07/02/2024 2:41 PM EST [facility] Urine Voided urine specimen / Unknown Non-Blood Collection / Unknown 07/02/2024 9:17 AM EST 07/02/2024 9:36 AM EST John Hendricks MD LAB URINE ORDERABLES Final Resul t Performing Organization Address City/[facility]/ZIP Co de Phone Number [facility] [address] [address], [place] [phone] * Protein, Random Urine with Creatinine (07/02/2024 9:17 AM EST) Protein, Urine 6 mg/dL 07/02/2024 2:41 PM EST [facility] Creatinine, Urine 55 mg/dL 07/02/2024 2:41 PM EST [facility] Protein/Creati nine Ratio 109 <200 mg/gmCr 07/02/2024 2:41 PM EST [facility] Urine Voided urine specimen / Unknown Non-Blood Collection / Unknown 07/02/2024 9:17 AM EST 07/02/2024 9:36 AM EST John Hendricks MD LAB URINE ORDERABLES Final Resul t Performing Organization Address [facility] Co de Phone Number [facility] [address] [place] [address], [place] [phone] * (ABNORMAL) Vitamin D, 25-Hydroxy, Total, Immunoassay (07/02/2024 9:17 AM EST) Only the most recent of2 resultswithin the time period is included. Vitamin D 25-OH 22.50(L) 30.00 - 80.00 ng/mL 07/02/2024 11:24 AM EST [facility] Blood Structure of peripheral vein / Unknown Venipuncture / Unknown 07/02/2024 9:17 AM EST 07/02/2024 9:29 AM EST John Hendricks MD LAB BLOOD ORDERABLES Final Resul t Performing Organization Address City/[facility]/ZIP Co de Phone Number [facility] [address] [place] [address], [place] [phone] * (ABNORMAL) PTH, Intact (without Calcium) (07/02/2024 9:17 AM EST) Pathologist [facility] Parathyroid Hormone, Intact 226.0(H) 14.5 - 87.1 pg/mL 07/02/2024 11:19 AM EST [facility] Comment: This test was performed using the chemiluminescent immunoassay (CLIA) intended for the quantitative determination of intact human parathyroid hormone method on the [employer] LIAISON. Values obtained from different assay methods cannot be used interchangeably. Assay results should be utilized in conjunction with other clinical and laboratory data Blood Structure of peripheral vein / Unknown Venipuncture / Unknown 07/02/2024 9:17 AM EST 07/02/2024 9:29 AM EST us John Hendricks MD LAB BLOOD ORDERABLES Final Resul t [facility] [address] [address], [place] [phone] * Magnesium (07/02/2024 9:17 AM EST) [facility] MG 1.9 1.5 - 2.5 mg/dL 07/02/2024 10:01 AM EST [facility] Blood Structure of peripheral vein / Unknown Venipuncture / Unknown 07/02/2024 9:17 AM EST 07/02/2024 9:29 AM EST us John Hendricks MD LAB BLOOD ORDERABLES Final Resul t [facility] [address] [address], [place] [phone] * (ABNORMAL) Renal Function Panel (07/02/2024 9:17 AM EST) [facility] NA 138 136 - 145 mmol/L 07/02/2024 10:02 AM EST [facility] K 4.4 3.5 - 5.1 mmol/L 07/02/2024 10:02 AM [facility] Comment:ALL DELTAS REVIEWED Cl 101 98 - 109 mmol/L 07/02/2024 10:02 AM [facility] CO2 26 22 - 32 mmol/L 07/02/2024 10:02 AM [facility] Anion Gap 15 >=0 07/02/2024 10:02 AM [facility] Glucose 115(H) 60 - 99 mg/dL 07/02/2024 10:02 AM [facility] BUN 37(H) 8 - 23 mg/dL 07/02/2024 10:02 AM [facility] Creatinine 1.47(H) 0.50 - 1.12 mg/dL 07/02/2024 10:02 AM [facility] Calcium 8.8 8.4 - 10.4 mg/dL 07/02/2024 10:02 AM [facility] Phosphorus 3.6 2.5 - 4.5 mg/dL 07/02/2024 10:02 AM [facility] Albumin 3.8 3.5 - 5.0 g/dL 07/02/2024 10:02 AM [facility] eGFR 38(L) >=60 mL/min/1. 73m2 07/02/2024 10:02 AM [facility] Comment:The estimated [...] MD LAB BLOOD ORDERABLES Final Resul t [facility] [address] [facility] [address] [place] [address], [place] [phone] * X-Ray Abdomen 1 View (06/26/2024 12:39 [...] obtain the completed interpretation. ? Workstation ID: [id number] Narrative 06/26/2024 2:05 PM EST EXAMINATION: ??XR ABDOMEN 1 VW INDICATION: RLQ abdominal pain, constipation COMPARISONS: None Resulting Agency Comment [id number] Procedure Note Calvin Katz MD - 06/26/2024 [...] possible to obtain thecompleted interpretation. Workstation ID: [id number] us Tia Oh CHIEF MATE IMG XR PROCEDURES Final Result * (ABNORMAL) CBC (06/26/2024 6:22 AM EST) Only the most recent of5 resultswithin the time period is included. WBC 15.0(H) 4.8 - 10.8 10*3/uL 06/26/2024 6:42 AM EST [facility] RBC 4.51 4.20 - 5.40 10*6/uL 06/26/2024 6:42 AM EST [facility] Hemoglobin 13.1 11.7 - 15.5 g/dL 06/26/2024 6:42 AM EST [facility] Hematocrit 40.5 35.7 - 45.8 % 06/26/2024 6:42 AM EST [facility] MCV 89.8 81.0 - 99.0 fL 06/26/2024 6:42 AM EST [facility] MCH 29.0 26.0 - 34.0 pg 06/26/2024 6:42 AM EST [facility] MCHC 32.3 31.0 - 36.0 g/dL 06/26/2024 6:42 AM EST [facility] RDW 13.2 12.0 - 15.0 % 06/26/2024 6:42 AM EST [facility] Platelets 220 140 - 440 10*3/uL 06/26/2024 6:42 AM EST [facility] MPV 9.4 9.4 - 12.3 fL 06/26/2024 6:42 AM EST [facility] RDW Standard Deviation 43.5 36.4 - 46.3 fL 06/26/2024 6:42 AM EST [facility] Blood Structure of peripheral vein / Unknown Venipuncture / Unknown 06/26/2024 6:22 AM EST 06/26/2024 6:39 AM EST us Olivia Arteaga NP LAB BLOOD ORDERABLES Final Result [facility] [address] [place] [address], * ECG 12 lead (06/24/2024 9:50 AM EST) Only the most recent of3 resultswithin the time period is included. Ventricular Rate EKG 73 BPM MUSE EKG Atrial Rate 73 BPM MUSE EKG VA Interval 228 ms MUSE EKG QRS Interval 128 ms MUSE EKG QT Interval 384 ms MUSE EKG QTC Interval 423 ms MUSE EKG P Perkins 65 degrees MUSE EKG R Perkins 41 degrees MUSE EKG T Wave Perkins 61 degrees MUSE EKG 06/24/2024 9:50 AM EST 06/24/2024 5:36 PM EST Impressions MUSE EKG - 06/24/2024 5:36 PM EST Sinus rhythm with 1st degree AV block with occasional premature ventricular complexes Nonspecific intraventricular block When compared with ECG of 21-JUN-2024 07:26, No significant change was found Confirmed by Stephanie Hampton ([id number]) on 06/24/2024 5:36:28 PM Olivia Arteaga CHIEF MATE ECG ORDERABLES Final Resul t MUSE EKG * (ABNORMAL) Potassium (06/23/2024 10:05 AM EST) [facility] K 5.6(H) 3.5 - 5.1 mmol/L 06/23/2024 10:58 AM EST [facility] Comment:REVIEWED Blood Structure of peripheral vein / Unknown Venipuncture / Unknown 06/23/2024 10:05 AM EST 06/23/2024 10:36 AM EST Narrative [facility] - 06/23/2024 10:58 AM EST Please check heparinized potassium, TY. Sydney David NP LAB BLOOD ORDERABLES Final Result [facility] [address] [place] [address], [place] [phone] * Lavender Top (06/22/2024 6:53 AM EST) Only the most recent of2 resultswithin the time period is included. [facility] Extra Tube Hold for add-ons. 06/22/2024 11:05 AM EST [facility] Comment:Auto resulted. Blood Structure of peripheral vein / Unknown 06/22/2024 6:53 AM EST 06/22/2024 6:53 AM EST Mj Mendenhall MD LAB BLOOD ORDERABLES Final R esult [facility] [address] [place] [address], * Troponin T, High Sensitivity (06/20/2024 10:19 AM EST) Only the most recent of3 resultswithin the time period is included. Troponin T High Sensitivity 14 6 - 14 ng/L 06/20/2024 11:08 AM EST [facility] Comment: Er-Kzqbhgig-W level of 52 ng/L or higher at [...] be evaluated in line with the 4th [place] Definition of AMI. Troponin baseline and serial [...] MD LAB BLOOD ORDERABLES Final R esult [facility] [address] [facility] [address] [place] [address], * (ABNORMAL) Respiratory Culture (06/20/2024 7:37 AM EST) Respiratory Culture Moderate Rayna albicans(A) [facility] 06/22/2024 11:29 AM EST [facility] Gram Stain Result <25 per LPF White Blood Cells Seen 06/22/2024 11:29 AM EST [facility] Gram Stain Result <10 per LPF Epithelial Cells 06/22/2024 11:29 AM EST [facility] Gram Stain Result Rare Gram Positive Cocci in pairs 06/22/2024 11:29 AM EST [facility] Sputum Sputum / Unknown Non-Blood Collection / Unknown 06/20/2024 7:37 AM EST 06/20/2024 7:54 AM EST Narrative [facility] - 06/22/2024 11:29 AM EST Many normal respiratory beena present. Rosanna Marie NP LAB MICROBIOLOGY - GENERAL ORDER RHINA Final Result Performing Organization Address City/[facility] Co de Phone Number [facility] [address] [address], [place] [phone] * Streptococcus Pneumoniae Antigen Urine (06/18/2024 6:44 PM EST) Streptococcus pneumoniae Antigen, Urine Negative Negative [facility] MANUAL 06/19/2024 8:53 AM EST [facility] Comment: INTERPRETATION: Presumptive negative [...] ORDERABLES Final R esult Performing Organization Address City/[facility]/ZIP Co de Phone Number [facility] [address] [address], [place] [phone] * Legionella Antigen, Urine (06/18/2024 6:44 PM EST) Legionella pneumophila Urine Ag Negative Negative [facility] 06/19/2024 8:53 AM EST [facility] Comment: INTERPRETATION: Presumptive negative [...] PM EST 06/18/2024 7:15 PM EST Narrative [facility] - 06/19/2024 8:53 AM [...] MD LAB URINE ORDERABLES Final R esult [facility] [address] [facility] [address] [place] [address], * XR Chest Portable 1 View (06/18/2024 [...] obtain the completed interpretation. ? Workstation ID: [id number] Narrative 06/20/2024 10:17 AM EST EXAMINATION: XR CHEST PORTABLE 1 VIEW COMPARISON: CT chest pulmonary angiogram 06/15/2024 and other priors. FINDINGS: Lines/Tubes/Devices: None. Lungs: Redemonstrated left basilar consolidation. Pleura: No pleural effusions or pneumothorax. Heart/Mediastinum: Cardiomediastinal silhouette is similar to prior. Bones/Soft tissues: No acute osseous abnormality. Resulting Agency Comment [id number] Procedure Note Apolonia Nolen MD - 06/20/2024 [...] possible to obtain thecompleted interpretation. Workstation ID: [id number] us Tia Oh CHIEF MATE IMG XR PROCEDURES Final Result * (ABNORMAL) CBC Auto Differential (06/17/2024 7:03 AM EST) Only the most recent of2 resultswithin the time period is included. WBC 11.6(H) 4.8 - 10.8 10*3/uL 06/17/2024 7:30 AM EST [facility] RBC 3.94(L) 4.20 - 5.40 10*6/uL 06/17/2024 7:30 AM EST [facility] Hemoglobin 11.7 11.7 - 15.5 g/dL 06/17/2024 7:30 AM EST [facility] Hematocrit 35.4(L) 35.7 - 45.8 % 06/17/2024 7:30 AM EST [facility] MCV 89.8 81.0 - 99.0 fL 06/17/2024 7:30 AM [facility] MCH 29.7 26.0 - 34.0 pg 06/17/2024 7:30 AM [facility] MCHC 33.1 31.0 - 36.0 g/dL 06/17/2024 7:30 AM [facility] RDW 12.9 12.0 - 15.0 % 06/17/2024 7:30 AM [facility] RDW Standard Deviation 42.6 36.4 - 46.3 fL 06/17/2024 7:30 AM [facility] Platelets 257 140 - 440 10*3/uL 06/17/2024 7:30 AM [facility] Comment:REV IEWED MPV 10.0 9.4 - 12.3 fL 06/17/2024 7:30 AM [facility] Neutrophil % 81.6(H) 50.0 - 75.0 % 06/17/2024 7:30 AM [facility] Immature Grans % 0.8 0.0 - 0.9 % 06/17/2024 7:30 AM [facility] Lymphocyte % 11.8(L) 20.0 - 44.0 % 06/17/2024 7:30 AM [facility] Monocyte % 5.6 0.0 - 14.0 % 06/17/2024 7:30 AM [facility] Eosinophil % 0.0 0.0 - 5.0 % 06/17/2024 7:30 AM [facility] Basophil % 0.2 0.0 - 2.0 % 06/17/2024 7:30 AM [facility] Neutrophil # 9.48(H) 1.80 - 7.70 10*3/uL 06/17/2024 7:30 AM [facility] Immature Grans # 0.09(H) 0.00 - 0.03 10*3/uL 06/17/2024 7:30 AM [facility] Lymphocyte # 1.40 1.00 - 4.75 10*3/uL 06/17/2024 7:30 AM EST [facility] Monocyte # 0.70(H) 0.00 - 0.60 10*3/uL 06/17/2024 7:30 AM EST [facility] Eosinophil # <0.03 0.00 - 0.80 10*3/uL 06/17/2024 7:30 AM EST [facility] Basophil # <0.03 0.00 - 0.20 10*3/uL 06/17/2024 7:30 AM EST [facility] nRBC % 0.0 0 - 0 /100 WBCs 06/17/2024 7:30 AM EST [facility] nRBC # <0.01 0.00 - 0.13 10*3/uL 06/17/2024 7:30 AM EST [facility] Blood Structure of peripheral vein / Unknown Venipuncture / Unknown 06/17/2024 7:03 AM EST 06/17/2024 7:22 AM EST us Mj Mendenhall MD LAB BLOOD ORDERABLES Final R esult [facility] [address] [address], [place] [phone] * Light Green Top (06/16/2024 7:54 AM EST) Pathologist [facility] Extra Tube Hold for add-ons. 06/16/2024 12:05 PM EST [facility] Comment:Auto resulted. Blood Structure of peripheral vein / Unknown 06/16/2024 7:54 AM EST 06/16/2024 7:54 AM EST us Mj Mendenhall MD LAB BLOOD ORDERABLES Final R esult [facility] [address] [address], [place] [phone] * Mycoplasma pneumoniae Antibodies, IgG/IgM (06/16/2024 7:42 AM EST) [facility] M. pneumoniae Ab, IgG <=0.90 <=0.90 06/19/2024 10:04 PM EST [facility] ([facility]) Comment: ? Reference Range: ? <=0.90 [...] EST 06/16/2024 7:53 AM EST Narrative [facility] - 06/19/2024 10:04 PM EST [facility] Received Date:[id number] us Mj Mendenhall MD LAB BLOOD ORDERABLES Final R esult [facility]IL[facility] DAVID [address] [place] [address] 3rd Floor, [place] [address], [place] [phone] [facility]) [address] [place] [address], [place] * CT Chest PE (06/15/2024 11:49 [...] obtain the completed interpretation. ? Workstation ID: [id number] Up-to-date CT equipment and radiation dose reduction [...] possible to obtain thecompleted interpretation. Workstation ID: [id number] Up-to-date CT equipment and radiation dose reduction techniques wereemployed. CTDIvol: .8 - 21.4 mGy. DLP: 802 mGy-cm. Kevin FULLER CT PROCEDURES Final Result * Blood Culture (06/15/2024 10:17 PM EST) Only the most recent of2 resultswithin the time period is included. Blood Culture No growth after 5 days 06/20/2024 11:05 PM EST [facility] Blood Structure of peripheral vein / Unknown Venipuncture / Unknown 06/15/2024 10:17 PM EST 06/15/2024 10:39 PM EST us Kevin Newsome MD LAB MICROBIOLOGY - GENERAL ORDER RHINA Final Result Performing Organization Address [facility] Co de Phone Number [facility] [address] [address], [place] [phone] * Lactic Acid, Plasma (06/15/2024 10:17 PM EST) Lactic Acid 0.7 0.5 - 2.2 mmol/L 06/15/2024 11:02 PM EST [facility] Blood Structure of peripheral vein / Unknown Venipuncture / Unknown 06/15/2024 10:17 PM EST 06/15/2024 10:31 PM EST us Kevin Newsome MD LAB BLOOD ORDERABLES Final Resul t Performing Organization Address [facility] Co de Phone Number [facility] [address] [address], [place] [phone] * (ABNORMAL) Blood gas, venous (06/15/2024 10:17 PM EST) pH, Venous 7.24(LL) 7.35 - 7.45 06/16/2024 2:54 AM EST [facility] RT pCO2, Venous 57.0 mm[Hg] 06/16/2024 2:54 AM EST [facility] RT pO2, Keegan 138.0 mm[Hg] 06/16/2024 2:54 AM EST [facility] RT HCO3, Venous 22 mmol/L 06/16/2024 2:54 AM EST [facility] RT O2 Sat, Venous 97.8 % 06/16/2024 2:54 AM EST [facility] RT Base Excess, Keegan -3.6 mmol/L 06/16/2024 2:54 AM EST [facility] RT Blood Structure of peripheral vein / Unknown Venipuncture / Unknown 06/15/2024 10:17 PM EST 06/16/2024 2:52 AM EST Kevin Newsome MD LAB BLOOD ORDERABLES Final Resul t [facility] [address] [place] [address], [place] * COVID-19, Flu A/B & RSV RNA PCR, Symptomatic (06/15/2024 7:58 PM EST) Pathologist [facility] PCR, SARS CoV-2 RNA Not Detected Not Detected [employer] 06/15/2024 8:48 PM EST [facility] Flu A RNA PCR Not Detected Not Detected [employer]EXP[employer] 06/15/2024 8:48 PM EST [facility] Flu B RNA PCR Not Detected Not Detected [employer]EXP[employer] 06/15/2024 8:48 PM EST [facility] RSV RNA PCR Not Detected Not Detected [employer] 06/15/2024 8:48 PM EST [facility] Comment: Limitations: This RSV test [...] PM EST 06/15/2024 8:09 PM EST Narrative [facility] - 06/15/2024 8:48 PM EST Methodology: The [employer] GeneXpert CoV-2/Flu/RSV plus assay is For Use Under an Emergency Use Authorization (EUA) Only with [employer]. The CoV-2/Flu/RSV plus assay is a [...] FLUIDS AND STOOLS O RDERABLES Final Result [facility] [address] [facility] [address] [place] [address], [place] [phone] * HEART & VASCULAR - SCANNED (06/15/2024) [...] were monitored continuously. 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
== END 2024-09-05 07:25 | disposition home or self-care (01) ==
LOC: HO.CT 07:24
PROVIDERS: PCP Nurse Practitioner Family; Visit Provider Physician Assistant
DX: Z98.1 Arthrodesis status (principal)
CPT/HCPCS: 72131

== ENCOUNTER → 2024-09-05 07:27 | Outpatient (BNV) | payer MEDICARE, SELFPAY | PROVIDERS: PCP Nurse Practitioner Family; Visit Provider Radiology Diagnostic Radiology | DX: Z98.1 Arthrodesis status (principal) | CPT/HCPCS: 72131 ==

== ENCOUNTER 2024-11-19 05:38 | Day surgery (SDC) | payer MEDICARE, SELFPAY ==
[2024-11-05 12:34] VITALS: BP 144/70; PULSE 69; RESP 20; O2SAT 98; BMI 45.7
--- NOTE | 2024-11-05 12:55 | HO.ANESPROP2 ---
Documented by User: Tanesha Hayes NP 11/18/24 09:29 HPI - Anesthesia Eval Consult details Narrative: 74yo F for L3-4 Transforaminal Lumbar Interbody Fuse, 11/19/24 Cardiac optimized per [facility] cardiology No recent illness No CP/SOB with minimal activity. Able to do ADL's, housework Splenic artery aneurysm: Follows vascular. Optimized to proceed per letter. Aneurysm calcified and stable. Yearly scans to monitor AFlutter: s/p ablation, on eliquis CHF: euvolemic BILLIE: CPAP QHS COPD: Stable, albuterol ~ 1x weekly GERD: ppi controls PMFSH Active Problems Active Problems: All Active Problems S/P lumbar spinal fusion (Acute) Lumbago (Acute) Cervical myelopathy (Acute) Past Medical History Medical History Back pain Arthritis Hiatal hernia GERD (gastroesophageal reflux disease) Weakness Numbness On anticoagulant therapy Elevated cholesterol Pneumonia Thyroid disease Atrial fibrillation HTN (hypertension) Sleep apnea Lumbar radiculopathy Hyperkalemia Aneurysm of splenic artery Vitamin D deficiency CHF (congestive heart failure) COPD (chronic obstructive pulmonary disease) Cataracts, bilateral Generalized anxiety disorder Atrial flutter Family History Family history of problems with anesthesia: No Surgical History Surgical History Hx of cervical discectomy History of esophagogastroduodenoscopy (EGD) H/O colonoscopy Hx of hysterectomy Hx of laminectomy History of bilateral carpal tunnel release Hx of cholecystectomy History of total hip replacement Hx of total knee replacement History of cardiac ablation for atrial fibrillation History of Problems with Anesthesia: No Social History Social History Are you a primary home care manager to a significant other at home: No Do you presently have visiting nurse or other home services: No Patient Tobacco Use Status: Former Tobacco user Use of substances other than those prescribed or required for medical reasons: No Have you been hit, kicked, punched, or otherwise hurt by someone within the past year? If so, by whom?: No Are you DNR?: No Advance Directives: No Advance Directives Information Provided: Yes Advance Directives on File: No Patient : No : No Meds Allergies Allergy/AdvReac Type Severity Reaction Status Date / Time Statins Allergy Severe Muscle Pain Uncoded 11/19/24 05:59 Home Medications ?Medication ?Instructions ?Recorded ?Confirmed ?Last Taken ?Type apixaban 5 mg tablet (Eliquis) 5 mg PO BID 11/04/24 11/04/24 11/16/24 History albuterol sulfate 90 mcg/actuation 2 puff inhalation Q4-6H PRN 11/05/24 11/05/24 Unknown History aerosol inhaler Shortness Of Breath Or Wheezing buspirone 7.5 mg tablet 7.5 mg PO BID 11/05/24 11/05/24 Unknown History cholecalciferol (vitamin D3) 50 50 mcg PO DAILY 11/05/24 11/05/24 Unknown History mcg (2,000 unit) capsule (Vitamin D3) diltiazem HCl 120 mg 120 mg PO DAILY 11/05/24 11/05/24 11/19/24 History capsule,extended release 24 hr, controlled (DILT-XR) duloxetine 60 mg capsule,delayed 60 mg PO DAILY 11/05/24 11/05/24 11/19/24 History release flecainide 100 mg tablet 100 mg PO Q12H 11/05/24 11/05/24 11/19/24 History hydrocodone 5 mg-acetaminophen 325 1 tab PO QID PRN Pain 11/05/24 11/05/24 Unknown History mg tablet levothyroxine 100 mcg tablet 100 mcg PO DAILY 11/05/24 11/05/24 Unknown History methocarbamol 750 mg tablet 750 mg PO TID 11/05/24 11/05/24 Unknown History multivitamin 1 tab PO DAILY 11/05/24 11/05/24 Unknown History pantoprazole 40 mg tablet,delayed 40 mg PO DAILY 11/05/24 11/05/24 11/19/24 History release pregabalin 150 mg capsule 150 mg PO BID 11/05/24 11/05/24 11/19/24 History sennosides 8.6 mg tablet (senna) 17.2 mg PO DAILY PRN Constipation 11/05/24 11/05/24 Unknown History trazodone 50 mg tablet 50 mg PO BEDTIME PRN Insomnia 11/05/24 11/05/24 Unknown History triamcinolone acetonide 0.1 % 1 appl topical BID PRN Skin 11/05/24 11/05/24 Unknown History topical cream Irritation Exam Height,Weight and Vital Signs: Height 5 ft 6 in Weight 128.367 kg Last Vital Signs Pulse 69 11/05/24 12:34 Resp 20 11/05/24 12:34 BP 144/70 H 11/05/24 12:34 Pulse Ox 98 11/05/24 12:34 O2 Del Method Room Air 11/05/24 12:34 Pertinent Lab Results Pertinent Lab Results: Narrative Narrative: EKG 10/2024 Airway Mallampati Class: II TM Dist: >3cm Neck ROM: Full (hx discectomy) Heart: RRR Lungs: CTAB Assessment and Plan Assessment Anesthesia Assessment: Anesthesia Plan Discussed and PAT Visit Final Anesthetic Review Family History of Problems with Anesthesia: No History of Problems with Anesthesia: No Documented by User: Lucas Ospina MD 11/19/24 11:18 [facility] Past Medical History Medical History Back pain Arthritis Hiatal hernia GERD (gastroesophageal reflux disease) Weakness Numbness On anticoagulant therapy Elevated cholesterol Pneumonia Thyroid disease Atrial fibrillation HTN (hypertension) Sleep apnea Lumbar radiculopathy Hyperkalemia Aneurysm of splenic artery Vitamin D deficiency CHF (congestive heart failure) COPD (chronic obstructive pulmonary disease) Cataracts, bilateral Generalized anxiety disorder Atrial flutter Surgical History Surgical History Hx of cervical discectomy History of esophagogastroduodenoscopy (EGD) H/O colonoscopy Hx of hysterectomy Hx of laminectomy History of bilateral carpal tunnel release Hx of cholecystectomy History of total hip replacement Hx of total knee replacement History of cardiac ablation for atrial fibrillation Social History Social History Are you a primary home care manager to a significant other at home: No Do you presently have visiting nurse or other home services: No Patient Tobacco Use Status: Former Tobacco user Use of substances other than those prescribed or required for medical reasons: No Have you been hit, kicked, punched, or otherwise hurt by someone within the past year? If so, by whom?: No Are you DNR?: No Advance Directives: No Advance Directives Information Provided: Yes Advance Directives on File: No Patient : No : No Meds Allergies Allergy/AdvReac Type Severity Reaction Status Date / Time Statins Allergy Severe Muscle Pain Uncoded 11/19/24 05:59 Home Medications ?Medication ?Instructions ?Recorded ?Confirmed ?Last Taken ?Type apixaban 5 mg tablet (Eliquis) 5 mg PO BID 11/04/24 11/04/24 11/16/24 History albuterol sulfate 90 mcg/actuation 2 puff inhalation Q4-6H PRN 11/05/24 11/05/24 Unknown History aerosol inhaler Shortness Of Breath Or Wheezing buspirone 7.5 mg tablet 7.5 mg PO BID 11/05/24 11/05/24 Unknown History cholecalciferol (vitamin D3) 50 50 mcg PO DAILY 11/05/24 11/05/24 Unknown History mcg (2,000 unit) capsule (Vitamin D3) diltiazem HCl 120 mg 120 mg PO DAILY 11/05/24 11/05/24 11/19/24 History capsule,extended release 24 hr, controlled (DILT-XR) duloxetine 60 mg capsule,delayed 60 mg PO DAILY 11/05/24 11/05/24 11/19/24 History release flecainide 100 mg tablet 100 mg PO Q12H 11/05/24 11/05/24 11/19/24 History hydrocodone 5 mg-acetaminophen 325 1 tab PO QID PRN Pain 11/05/24 11/05/24 Unknown History mg tablet levothyroxine 100 mcg tablet 100 mcg PO DAILY 11/05/24 11/05/24 Unknown History methocarbamol 750 mg tablet 750 mg PO TID 11/05/24 11/05/24 Unknown History multivitamin 1 tab PO DAILY 11/05/24 11/05/24 Unknown History pantoprazole 40 mg tablet,delayed 40 mg PO DAILY 11/05/24 11/05/24 11/19/24 History release pregabalin 150 mg capsule 150 mg PO BID 11/05/24 11/05/24 11/19/24 History sennosides 8.6 mg tablet (senna) 17.2 mg PO DAILY PRN Constipation 11/05/24 11/05/24 Unknown History trazodone 50 mg tablet 50 mg PO BEDTIME PRN Insomnia 11/05/24 11/05/24 Unknown History triamcinolone acetonide 0.1 % 1 appl topical BID PRN Skin 11/05/24 11/05/24 Unknown History topical cream Irritation Assessment and Plan Final Anesthetic Review NPO: Yes ASA Class: III Final Preanesthetic Review: No Changes in Pt Med Stat, Meds/Allgs Chart Reviewed, Consent Obtained/Reviewed and Anes Risks/Benef Reviewed Patient Risk: Intermediate Procedure Risk: Low Anesthetic Plan Anesthetic Plan: GA Disposition: Standard PACU
[2024-11-05 13:38] LABS: Hematocrit 38.4 % (37.0-47.0); Hemoglobin 12.4 g/dl (12.0-16.0); Mean Corpuscular HGB Conc 32.3 g/dl (31.0-35.0); Mean Corpuscular Hemoglobin 28.2 pg (27.0-33.0); Mean Corpuscular Volume 87.5 fL (80.0-98.0); NRBC Abs Auto 0.000 X10*3/uL (0.0-0.012); NRBC Pct Auto 0.0 /100WBC (0.0-0.2); Platelet Count 213 X10*3/uL (160-400); Red Blood Count 4.39 X10*6/uL (4.20-5.50); White Blood Count 6.4 X10*3/uL (4.8-10.8)
[2024-11-05 14:00] LABS: Anion Gap 12 (12-20); Blood Urea Nitrogen 36 mg/dL (9-16); Calcium 9.8 mg/dL (8.4-10.2); Carbon Dioxide 29 mmol/L (22-29); Chloride 108 mmol/L (96-108); Creatinine Clr Calc Pharmacy 57.3; Estimated Glomerular Filt Rate 44; Potassium 4.7 mmol/L (3.3-5.1); Sodium 144 mmol/L (135-145)
[2024-11-19] VITALS (21 sets, daily range): BP systolic 96–131; BP diastolic 32–73; PULSE 56–68; RESP 13–18; TEMP 36.1–36.9; O2SAT 93–100; BMI 45.2; BMI 46.8
--- NOTE | ~2024-11-19 | FL_ITS ---
EXAMINATION: FL GUIDANCE ONLY HISTORY: l3-4 TLIF COMPARISON: Correlation is made with plain films of the lumbar spine dated 07/31/2024. TECHNIQUE: Fluoroscopy time: 50.1 seconds. Cumulative Dose: 63.063 mGy. DAP: 25.189 mGym2 Images: 2. FINDINGS: AP and lateral fluoroscopic spot films of the lumbar spine demonstrate removal of posterior fixation hardware at L4-5 and placement of new pedicle screws and spinal stabilization rods at L3-4 with an intervertebral disc prosthesis at this level. FL/FL guidance in OR IMPRESSION: Fluoroscopy during procedure. Please see procedure report for additional information. Electronically signed by: Hawk Nielsen MD 11/19/2024 12:25 PM EDT
[2024-11-19] MEDS: Lactated Ringers 1,000 ML 50 ML IVCONT (06:35)
--- NOTE | 2024-11-19 07:02 | P.HPSUR_ITS ---
Pre-Procedural Eval Section A - 24 Hr Update-Section A only Date of Service: 11/19/24 The patient is an INPATIENT: No Changes since office visit: No Cold of Flu in the past 2 weeks, No New Medical Problems, No Changes in Medication and No Patient answered all questions The patient has been examined within 24 hours of the surgical procedure. The History & Physical has been completed within 30 days and I have reviewed it.: No Section B - Complete if H&P > 30 days Chief Complaint: Spondylolisthesis, lumbar region,Arthrodesis Allergies: Allergies Allergy/AdvReac Type Severity Reaction Status Date / Time Statins Allergy Severe Muscle Pain Uncoded 11/19/24 05:59 Review of Systems Sugical H&P ROS: Negative: Constitution, Cardiovascular, Respiratory, Neurological, Psychiatric, Hem-Onc, Allergic/Immunologic, Gastrointestinal, Genitourinary, Musculoskeletal, Integumentary, Endocrine and Eyes/Ears/Nose/Thro at Exam Surgical H&P Exam: Normal: HEENT, Normal: Heart, Normal: Lungs, Normal: Extremities, Normal: Abdomen, Normal: Skin and Normal: Neurological (awake, alert,oriented x 3 ) Plan Diagnosis/Plan: Unchanged L3-4 transforaminal lumbar interbody fusion, revision of posterior instrumentation Time Spent With Patient Time: Total time managing care of this patient today __5__ minutes.
--- NOTE | 2024-11-19 11:08 | P.OP_ITS ---
Operative Note Operative Note Date of Service: 11/19/24 Narrative: Preop Diagnosis: 1.) Adjacent degenerative disc disease L3-L4 2.) Status post L4-5 lumbar fusion Procedure: 1) L3-4 discectomy, arthrodesis and implantation cage through an anterolateral, retroperitoneal approach 2) removal L4-5 instrumentation 3) L3-4 posterior instrumented fusion 3) allograft Consent Informed Consent was obtained for this operation. I have explained the nature, purpose and benefits of the operation. I have discussed the risks and benefit of the operation including possible complications or adverse events with patient/family. Alternative(s) were discussed with the patient with their relative benefits and risks as well as the consequences of not accepting the operation were included in obtaining consent. Surgeon: LIUDMILA VALDIVIA MD, PHD Procedure Assisted By: willi Landry Description of Procedure This 74-year-old female had an lumbar fusion L4-5 done 2014. She presents with intractable low back pain and bilateral leg pain with the left side more affected than the right side. An MRI and CT scan shows severe adjacent degenerative disc disease L3-4 with a near collapse of the disc space and a grade 1 spondylolisthesis. Initially, the plan was to do a transforaminal lumbar interbody fusion but after reviewing the imaging and the patient habitus it was deemed safer to perform an oblique lumbar interbody fusion. The patient was offered an oblique lumbar interbody fusion L3-4. The procedure and complications were explained. The patient was consented. The patient was brought to the operating room and endotracheally intubated. The patient was turned in a lateral position with the left side up. Prep and drape was done followed by timeout. A small incision was made in the left lower abdominal quadrant. The muscle fascia was opened after which the 3 muscle layer was split to enter the retroperitoneal space. Dilators were docked in the anterior one third of the L3- 4 disc space followed by a retractor. The retractor was opened. The L3-4 disc space was exposed. An annulotomy was done after which an elevator Newsome was used to release the disc material from its endplates and to perforate the contralateral side. A partial discectomy was done. An 8 and 10 mm height trial implant was inserted. The discectomy was completed. The endplates were prepared. An 10 x 45 mm with 0 degree lordosis 4 web cage filled with allograft was inserted into the disc space under fluoroscopic guidance. This resulted in excellent mandaen of the disc height and realignment of the lumbar spine. The retractor was removed. Hemostasis was done. The incision was closed in 2 layers. Steri-Strips used to approximate incision. An OpSite with Tegaderm was used to cover the incision. This marked first part of the procedure. The patient was turned prone on the Marquise spine table. 2C arms were installed for fluoroscopy. Prep and drape was done followed by a second timeout. Two paramedian incisions were made lateral from the L4 and L5 pedicles. The previous L4-5 instrumentation was exposed. The locking caps were removed as well as the bilateral rods. The instrumentation was Orthofix and we knew we did not have a removal for this type of screw. Therefore we used the Tornado to remove the L4 and L5 screws. A 7.5 x 45 mm screws was used as replacement for the bilateral L4 screws. Then the following steps were taken for the bilateral L3 pedicles. A pediguard tap was used to create a transpedicular trajectory into the vertebral body. A K wire was placed. A specially designed instrument was advanced over the K wire to decorticate the posterolateral gutter in preparation for the posterolateral fusion. A 6.5 x 45 mm pedicle screw was advanced over the K wire and the K wire was removed. Pedicle screws were connected with 45 mm shlomo bilaterally and locked down with locking caps. The extension towers were removed. The posterolateral gutter was filled with allograft to complete the posterolateral L3-4 fusion Hemostasis was done and the incision was closed in 2 layers. Steri-Strips were used to approximate the incision. An OpSite with tegaderm was used to cover the incision. All sponge and needle counts were correct. Patient was extubated and transferred in stable is to recovery room. Anesthesia: General Estimated Blood Loss (ml): 50 mL Duration of Surgery: 2 hours 45 minutes Complications: None Postoperative Plan: Admit to inpatient for clinical observation
[2024-11-19] MEDS: oxyCODONE HCl Immed Release 5 MG TABLET PO (12:24)
[2024-11-19] MEDS: Albuterol Sulfate 90 MCG 8 GM INHALER 2 PUFF INHALE (14:59)
--- NOTE | 2024-11-19 17:02 | PHA.MEDREC ---
Addendum entered by Hernan Alexander, [facility] 11/19/24 17:15: med rec reviewed Original Note: Pharmacy Consult ? Medication Reconciliation Pharmacy has completed the medication reconciliation. Spoke with a very sleepy pt but she was able to confirm her medications, including dose and how she takes them. She confirmed she stopped her Eliquis 5mg tab Wednesday 11/15. Pt states she has not had any of her medications in about 3-4 days.
[2024-11-19] MEDS: oxyCODONE HCl Immed Release 5 MG TABLET 10 MG PO ×2 (17:54→23:48)
[2024-11-20] MEDS: oxyCODONE HCl Immed Release 5 MG TABLET 10 MG PO ×4 (04:26→17:30)
[2024-11-20 05:31] VITALS: BP 120/57; PULSE 76; RESP 18; TEMP 36.4; O2SAT 97
[2024-11-20] MEDS: Albuterol Sulfate 90 MCG 8 GM INHALER 2 PUFF INHALE (05:59)
--- NOTE | 2024-11-20 06:57 | HO.NEURO.PN ---
Neurosurgery Operative Note Date of Service: 11/20/24 Narrative: POD: 1 Procedure: L3-4 OLIF Genie is a pleasant 74 year old female who underwent L3-[address] Pope. She was seen this morning lying in bed on 3-S. She reports no acute overnight events. She states that she has been up OOB, walking around, and is otherwise doing well. This morning she is reporting fairly severe low back pain and continued left lower extremity pain. She describes the pain as shooting into her left anterior thigh, She is voiding well, tolerating diet. Afebrile, vital signs stable. She has about 3-4/5 strength of the left iliopsoas, this is primarily pain limiting. The rest of her strength is intact. Back dressings have some staining without signs of hematoma. No active sanguineous drainage. Area is dry. Plan: Will remain admitted to [address] [place] [id number] for PT evaluation recovery, pain management, and further evaluation. She does not have help at home, so we are tentatively planning to have her discharged to a rehabilitation facility. We will appreciate physical therapy/case management recommendations. Merlin Pope MD,PhD [facility]
[2024-11-20 08:00] VITALS: BP 96/51; PULSE 86; RESP 16; TEMP 36.7; O2SAT 92
[2024-11-20] MEDS: dilTIAZem HCL CD 120 MG CAP.ER.DEG PO (08:17)
--- NOTE | 2024-11-20 09:16 | P.DS_ITS ---
DS: Providers Provider Date of Service: 11/21/24 Date of discharge: 11/21/24 Primary care physician: COLBY Hammond DS: Summary Time Attestation Discharge Coordination Time (in mins): 12 Quality: Safe Use of Opioids Does Pt have an Active Cancer Diagnosis on the Problem List?: No Quality: Stroke Does the patient have a stroke diagnosis?: No Physical Exam Vital Signs: Vital Signs: Last Vital Signs Temp 98.0 F 11/20/24 08:00 Pulse 86 11/20/24 08:00 Resp 16 11/20/24 08:00 BP 96/51 L 11/20/24 08:00 Pulse Ox 92 11/20/24 08:00 O2 Del Method Room Air 11/20/24 08:00 O2 Flow Rate 2 11/19/24 15:54 BMI result Body Mass Index 46.8 Discharge Plan Discharge Patient Disposition: Home, Self-Care Referrals: Bijal Fox FNP [Primary Care Provider, Family Practice] - 1 Week Discharge Medications: New oxycodone 5 mg tablet See Rx Instructions .ROUTE .COMPLEX PRN (Reason: pain) Qty: 30 0RF Rx Instructions: Take 1-2 tablets by mouth every 4 hours; Partial Fill upon patient request. Continued multivitamin Tablet 1 tab PO DAILY levothyroxine 100 mcg tablet 100 mcg PO DAILY methocarbamol 750 mg tablet 750 mg PO TID pantoprazole 40 mg tablet,delayed release (DR/EC) 40 mg PO DAILY@0630 diltiazem HCl [DILT-XR] 120 mg capsule,ext.rel 24h degradable 120 mg PO DAILY flecainide 100 mg tablet 100 mg PO Q12H buspirone 7.5 mg tablet 7.5 mg PO BID albuterol sulfate 90 mcg/actuation HFA aerosol inhaler 2 puff INHALATION Q4-6H PRN (Reason: Shortness Of Breath Or Wheezing) duloxetine 60 mg capsule,delayed release(DR/EC) 60 mg PO DAILY sennosides [senna] 8.6 mg tablet 17.2 mg PO DAILY PRN (Reason: Constipation) trazodone 50 mg tablet 50 mg PO BEDTIME PRN (Reason: Insomnia) triamcinolone acetonide 0.1 % cream 1 appl topical BID PRN (Reason: Skin Irritation) pregabalin 150 mg capsule 150 mg PO BID cholecalciferol (vitamin D3) [Vitamin D3] 50 mcg (2,000 unit) Capsule 50 mcg PO DAILY furosemide 40 mg tablet 40 mg PO DAILY methylphenidate HCl 10 mg tablet 20 mg PO DAILY@0900 methylphenidate HCl 10 mg tablet 10 mg PO DAILY@1200 Held Eliquis 5 mg tablet 5 mg PO BID Hold Instructions: Resume on 11/22/24. Hold tomorrow start again Monday. hydrocodone-acetaminophen 7.5-325 mg tablet 1 tab PO TID PRN (Reason: Pain) Hold Instructions: Resume on 12/22/24. Resume when Oxycodone Rx is complete Discharge Orders: Discharge Order (Routine); Ordered 11/21/24 Ordered By: Merlin Whitmore Diet: Advance to usual diet Activity on Discharge: As tolerated Activity Restrictions/Additional Instructions: After your spinal surgery we ask you to observe the following restrictions/guidelines: Activity: It is normal to feel some discomfort as you increase your activity, but that will improve with time. We ask you avoid heavy lifting or acitivities that cause pain. As a general rule, 8lbs is a safe limit for lifting right after surgery. Walk as much as you feel comfortable but not to exhaustion. You will feel extra tired the first few days after surgery. Stay well hydrated. It is OK to walk up and down stairs You may return to driving when you are off narcotics (such as vicodin, oxycodone, dilaudid, etc), and you are back to normal functional capacity. If you have any concerns please check with office before driving. Return to work is specific to each patient and each surgery, so please speak with your doctor/PA at first follow up. Please bring paperwork such as FMLA at that time if you need it filled out. Medications: You may resume your Eliquis medication tomorrow. We recommend you take 1,000mg Tylenol every 8 hours for the first few weeks after surgery, if you do not have any liver issues and can tolerate this medication. Do not exceed 4,000mg daily. We will give you a short supply of narcotics after surgery (usually one weeks worth). If you need more please call the office but do not use more than prescribed. You will need to give our office 48 hours notice if you need narcotics refilled and we do not fill narcotics on weekends or evenings. If you are on a narcotic, it is a good idea to take a stool softener such as colace or senna to avoid constipation If you take blood thinner such as aspirin, Plavix, Coumadin, Effient, Eliquis etc for conditions such as Afib, DVT, Pulmonary embolus, coronary disease, stents etc please speak with your surgeon about specific details as to when you can resume these medications. You can resume NSAIDs on post op day 1 (eg: Motrin, Naproxen, etc). Follow up: Please call the office, , after surgery to arrange a 3 week follow up for wound check. Wound Care: You may remove your dressing on the first day after surgery. ?You may ?leave open to air. Please do not remove the steri strips underneath. they will fall off on their own in one week. IT IS NORMAL FOR THE WOUND TO OOZE OR BE BLOODY FOR A FEW DAYS AFTER SURGERY. ?IF THIS HAPPENS JUST PLACE NEW DRESSING OVER IT TO AVOID STAINING CLOTHES. You may shower on post op day # 1 We ask that you do not let the water soak the wound. If it does get wet, just towel dry lightly. Please do not scrub your incision or place any type of chemical/ointment on the wound. No tub baths, pools or jacuzzis for one month. If you have any leaking or redness from your wound, or fevers, please call the office. POD: 2 Procedure: L3-4 OLIF Genie is a pleasant 74-year-old female who underwent L3-4 OLIF [address] Pope. She was seen lying in bed today on 3 . She was fully dressed asking if she can be discharged home. She reports she is up walking around is otherwise doing well. She feels her pain is much better today than it was yesterday. She is voiding well, tolerating diet. She was evaluated by our case management team, however states that she prefers to return home rather than attempt to admit to rehab. Afebrile, vital signs stable. Full strength 5/5 bilateral lower extremities. Back and lateral dressings have some staining without signs of hematoma. No active sanguineous drainage. Area is dry. Plan: Pleasant 74-year-old female who underwent L3-4 OLIF [address] Pope. To recap she had a difficult time with pain control in her 1st day postoperative. Today, she states her pain has much better controlled, and is overall feeling well. She is progressing as expected. Patient meets criteria to be medically discharged home. I will send in a prescription for oxycodone to the pharmacy here at [facility]. Merlin Pope MD,PhD [facility] Print Language: Filipino
--- NOTE | 2024-11-20 10:10 | HO.POSTANES ---
Post Anesthesia Evaluation Post Anesthesia Evaluation Date of Service: 11/19/24 Vital Signs: Vital Signs Temp Pulse Resp BP Pulse Ox O2 Del Method 11/20/24 08:00 98.0 F 86 16 96/51 L 92 Room Air 11/20/24 05:31 97.5 F 76 18 120/57 L 97 CPAP Anesthesia: General Endotracheal-GETA Mental Status: Awake Pain Control: Satisfactory Nausea/Vomiting: None Hydration: Adequate Anesthesia-Related Issues: No Anes. Related Issues
[2024-11-20 11:42] VITALS: BP 117/59
--- NOTE | 2024-11-20 12:36 | W.MHC.F2F ---
Service Date Service Date: 11/20/24 Encounter Date of encounter: 11/20/24 Reasons for Services Signs and symptoms assessed: s/p L3-4 lumbar fusion Reason for physical therapy: home safety and mobility, therapeutic exercises, gait/transfer training and ADL training Homebound: Leaving the home is medically contraindicated at this time without the asist of a device and/or another person due th the listed conditions above and below. Reason homebound: unsteady gait / fall risk, pain with ambulation, poor balance / fall risk and weakness related to hospital stay Certification: Based on the above findings, I certify that this patient is confined to the home and needs intermittent senior care care, physical therapy and/or speech therapy, or continues to need occupational therapy. The patient is under my care, and I have initiated the establishment of the plan of care. The patient will be followed by a physician who will periodically review the plan of care. Time Spent With Patient Time: Total time managing care of this patient today __12__ minutes.
--- NOTE | 2024-11-20 13:11 | MHC.CM.PN ---
Pt self-care, lives at home alone, pt states she received [facility] services, and uses a cane and a walker. Pt will arranger her own transport home at discharge. Pt states she would like to go to [facility] at discharge ([facility]). PT evaluated pt and are recommending home with services. Referral placed to [facility], and they are unable to accept due to PT eval recommending home with services, they state [facility] won't approve, pt updated by this CM. [facility] VNA/DME referral placed to [facility], awaiting response/approval for VNA services. PCP: [facility]
[2024-11-20 14:00] VITALS: BP 126/61; PULSE 76; RESP 22; TEMP 36.9; O2SAT 92
[2024-11-20 19:30] VITALS: BP 115/56; PULSE 77; RESP 18; TEMP 36.3; O2SAT 94
[2024-11-21] MEDS: oxyCODONE HCl Immed Release 5 MG TABLET 10 MG PO ×3 (01:23→10:25)
[2024-11-21 04:16] VITALS: BP 138/63; PULSE 77; RESP 18; TEMP 37.2; O2SAT 95
[2024-11-21 07:38] VITALS: BP 108/54; PULSE 75
[2024-11-21] MEDS: dilTIAZem HCL CD 120 MG CAP.ER.DEG PO (07:39)
[2024-11-21 08:03] VITALS: RESP 18; TEMP 36.1; O2SAT 94
--- NOTE | 2024-11-21 09:45 | HO.NEUROPN_ITS ---
Neurosurgery Operative Note Date of Service: 11/21/24 Narrative: POD: 2 Procedure: L3-4 OLIF Genie is a pleasant 74-year-old female who underwent L3-4 [address]IF [address] Pope. She was seen lying in bed today on 3 . She was fully dressed asking if she can be discharged home. She reports she is up walking around is otherwise doing well. She feels her pain is much better today than it was yesterday. She is voiding well, tolerating diet. She was evaluated by our case management team, however states that she prefers to return home rather than attempt to admit to rehab. Afebrile, vital signs stable. Full strength 5/5 bilateral lower extremities. Back and lateral dressings have some staining without signs of hematoma. No active sanguineous drainage. Area is dry. Plan: Kayla 74-year-old female who underwent L3-4 OLIF [address] Pope. To recap she had a difficult time with pain control in her 1st day postoperative. Today, she states her pain has much better controlled, and is overall feeling well. She is progressing as expected. Patient meets criteria to be medically discharged home. I will send in a prescription for oxycodone to the pharmacy here at [facility]. Merlin Pope MD,PhD [facility]
--- NOTE | 2024-11-21 09:49 | MHC.CM.PN ---
DP: PT HAS BEEN MEDICALLY CLEARED FOR DC HOME WITH SERVICES TO BE SET UP BY [facility]. ALL CLINICAL INFORMATION SENT TO [facility]IA [facility]. SON WILL TRANSPORT HOME.
[2024-11-21 10:34] VITALS: BP 121/65; PULSE 75; RESP 18; TEMP 36.8; O2SAT 93
== END 2024-11-21 11:00 | disposition home or self-care (01) ==
LOC: HO.SSS 11:54 → HO.S3 12:05
PROVIDERS: Nurse Practitioner; PCP Nurse Practitioner Family; Visit Provider Neurological Surgery
PROC: (CPT 22558; principal; 2024-11-19 07:30)
DX: M43.16 Spondylolisthesis, lumbar region (principal); Z98.1 Arthrodesis status; R20.0 Anesthesia of skin; R20.2 Paresthesia of skin; M51.362 Other intervertebral disc degeneration, lumbar region with discogenic back pain and lower extremity pain; G89.18 Other acute postprocedural pain; M54.50 Low back pain, unspecified; M79.652 Pain in left thigh; I11.0 Hypertensive heart disease with heart failure; I50.30 Unspecified diastolic (congestive) heart failure; J44.9 Chronic obstructive pulmonary disease, unspecified; G47.33 Obstructive sleep apnea (adult) (pediatric); E78.5 Hyperlipidemia, unspecified; I48.0 Paroxysmal atrial fibrillation; I48.92 Unspecified atrial flutter; Z86.73 Personal history of transient ischemic attack (TIA), and cerebral infarction without residual deficits; Z79.01 Long term (current) use of anticoagulants; Z79.51 Long term (current) use of inhaled steroids; Z79.899 Other long term (current) drug therapy; Z88.8 Allergy status to other drugs, medicaments and biological substances; Z87.891 Personal history of nicotine dependence
CPT/HCPCS: 22558; 22853; 22612; 22840; 20930; 36415; 80048; 85027; 86850; 86900; 86901; 97116; 97161; 97535; C1713; C1889; J0131; J0665; J0666; J0690; J1171; J2003; J2405; J2704; J3010; L8699

== ENCOUNTER → 2024-11-19 05:38 | Outpatient (BNV) | payer MEDICARE, SELFPAY | PROVIDERS: PCP Nurse Practitioner Family; Visit Provider Neurological Surgery | DX: M51.362 Other intervertebral disc degeneration, lumbar region with discogenic back pain and lower extremity pain (principal) | CPT/HCPCS: 20930; 22558; 22612; 22840; 22853 ==

== ENCOUNTER 2024-12-09 13:30 | Outpatient (AMB) | payer MEDICARE, SELFPAY ==
--- NOTE | 2024-12-09 13:42 | HO.SPINEOV ---
Intake Visit Reasons: 1st post op Intake Note: Ms. Vora is here today for her 1st post op. 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 Pope on 11/19/2024. She reports that her pain has much improved since surgery, however she still does have some residual pains in her low back and bilateral thighs. Overall, she has healed fairly well from her surgery, and states that she has been back to regular activity without much issue. She did report that she had 1 concerning episode occur after returning home from surgery where she twisted her ankle and need to be seen in the emergency department. Other than that her postoperative course sounds like it has been fairly uneventful. She did asked several questions regarding the postoperative healing course including returning to activity and continuing narcotic pain control. I answered all of her questions to the best of my ability. No new neurological deficits. The patient ambulates well and rises from seated position without difficulty. Her anterior and lateral incision sites are closed and well healing with no signs of erythema or drainage. I would like to follow up with the patient again in 6 weeks with a set of x-rays for her 2nd postoperative visit. Merlin Pope MD,PhD [facility] Orders: Orders XR lumbar spine 4V min Today Z98.1 - Arthrodesis status Coding Level of Care Code Global (25479) Diagnoses S/P lumbar spinal fusion Z98.1
--- OUTSIDE RECORDS SUMMARY | 2024-12-09 14:16 | XMS_ITS | Encounter Summary ---
Author Organization [facility] Address [address] [place] [address] Care Team Providers Care Plate Hanger Name Role Phone Brandyn Pagan MD Primary Care Provider Unavaila Radha Fink NP Unavailable Unavailable Unknown Pcp, Non [facility] Primary Care Provider Unava ilable Encounter Details Date Type Department Care Team (Late st Contact Info) Description 12/02/2016 Orders Only [facility] [address] [place] [id number] Brandyn Pagan MD Social History Tobacco Use [...] Cervicalgia documented in this encounter Care Teams Plate Hanger Relationship Specialty Start Date End Date Brandyn Pagan MD PCP - General Internal Medicine 08/07/15 02/02/17 Radha Spangler NP PCP - Backup PCP Internal Medicine 8/22/16 9/14/17 Unknown Pcp, Non [facility] PCP - General 02/03/17 documented as of this encounter
--- OUTSIDE RECORDS SUMMARY | 2024-12-09 14:17 | XMS_ITS | Data Portability ---
Author Organization [facility] Ketan wilson, [facility] Address [address] [place] [address] [place] [address] Care Team Providers Care Corporate Specialist Name Role Phone JANIE SOLOMON Primary Care Provider [phone] JANIE SOLOMON Referring Provider Assessment Encounter Date [...] and prognosis were reviewed with the patient. [email or web address] Not available 07/31/2023 03:00:11 Plan of Treatment Reminders Order Date Submit Date Provider Last Modified By Organization Details Last Modified Time Details Appointments None recorded . Lab fungus, culture, skin or hair or nails - left hallux nail 024 10/19/19 24 [email or web address], [address], [place], [address], 4 09:21:19 Referral None recorded . Procedures None recorded . Surgeries None recorded . Imaging XR, ankle, 3 or more view 024 07/31/19 24 [email or web address] 3 [facility], [address], [place], [address], 00:03:13 Medication Orders None recorded . Patient TargetsNo targets recorded. Patient InstructionsNo instructions recorded. Reason for Referral None Reported. Results Created Date Observation Date Name Description Value Unit Range Abnormal Flag Note LastModifiedBy Organization Detail LastModifiedTime 07/31/19 24 XR, ankle , 3 or more view No observ ation record ed. [email or web address] [facility] [address], [place], [address], 07/31/2023 00:03:11 Result Notes None recorded. Procedures Surgical History Date Name Laterality Status Provider Name and Address Organization Details Recorded Time procedure on knee completed [facility] 07/21/2023 16:09:01 procedure on hip completed [facility] 07/21/2023 16:09:08 procedure on back completed [facility] 07/21/2023 16:09:18 procedure on neck completed [facility] 07/21/2023 16:09:26 Imaging Results None recorded. Procedure Notes None recorded. Medical Equipment None Reported. Allergies Allergen ID Allergen Name Allergen Category Reaction Reaction Severity Criticality Documentation Date Start Date Code Code System Note Provider Name and Address Organization Details Recorded Time 459700 Product containin g 3-hydroxy -3-methyl glutaryl- coenzyme A reductase inhibitor (product) medicatio n Not available Not available Not available 07/21/2023 35711 009 SNOMED [facility] 16:06:50 Medications Name Sig Start Date Stop [...] HOURS NEEDED FOR POST OP PAIN DNF 331697 07/20 completed Not Available Not Available Not [...] Not Available Not Available No t Available [place] Thyroid 30 mg tablet TAKE 1 ORAL [...] index (BMI) Body weight Heart rate Systolic And Diastolic Provider Name and Address Organization Details Last Updated DateTime 07/21/2023 167.64 cm 35.5 kg/m2 06283.32 g 77 /min 155/102 mm[Hg] Kelly Mcdonald [facility] 07/21/2023 16:08:09 Date Recorded Body height Body mass index (BMI) Body weight Heart rate Systolic And Diastolic Provider Name and Address Organization Details Last Updated DateTime 09/28/2023 167.64 cm 35.5 kg/m2 97160.32 g 68 /min 155/95 mm[Hg] Kelly Mcdonald [facility] 09/28/2023 16:56:50 Date Recorded Body height Body mass index (BMI) Body weight Heart rate Systolic And Diastolic Provider Name and Address Organization Details Last Updated DateTime 10/19/2023 167.64 cm 35.5 kg/m2 29167.32 g 81 /min 118/65 mm[Hg] Kelly Mcdonald [facility] 10/19/2023 14:22:16 Social History Question Answer Notes LastModified by Organizat ion Details LastModified Time Tobacco Smoking Status Former Smoker Kelly Mcdonald [facility] 07/21/2023 16:08:43 Do You Have [...] Do You Have A Medical Power Of Commercial Lines Sales Executive? No Information not available 07/21/2023 What Is Your Relationship Status? Single Information not available 09/28/2023 Sex: Unknown Functional Status Question Answer Note LastModified by Organization D etails LastModified Time Are you able to walk? YESWOREST Information not available 09/28/2023 Mental Status None recorded. Family History Nothing Reported. Medical History Condition Response Diabetes N Back Pain Y Arthritis Y Neuropathy Y Rheumatoid Arthritis N Stroke Y Hypertension Y Gynecological HistoryNo gynecological history recorded. Obstetrics History GPAL:G 0 P 0 0 0 0 Past Encounters Encounter ID Performer Location Encounter Start Date Encounter Closed Date Diagnosis/Indication Diagnosis SNOMED-CT Code Diagnosis ICD10 Code Diagnosis Note [id number] Jair Winter DPM [facility] [address],[facility] [place] [address] 07/21/2023 15:55:39 07/21/2023 16:23:11 Acquired valgus deformity of left ankle [id number] 86609 M21.072 X-rays 3 views left foot DP/LAT/LO taken today and reviewed by me revealed pes planus, infracalca sunny bone spur, tiny retrocalca sunny spur, severe eburnation with DJD of the midtarsal joint, claw toe hammertoe contractur es, medial first metatarsal head exostosis with large peroneal ossicle. Acquired Left: The patient was educated regarding how to [...] sent to PCP for L1970 and L2820. [id number] Jair Winter DPM [facility] [address],[facility] [place] [address] 09/28/2023 15:34:38 09/28/2023 17:16:16 Acquired valgus deformity of left ankle [id number] 23966 M21.072 Curry brace AFO with 6degrees varus [...] from the lab for dispensing and fitting. [id number] Jair Winter DPM [facility] [address],[place] [address] 10/19/2023 14:03:51 10/19/2023 15:20:34 Dystrophia unguium 69839119 L60.3 Condition( s), etiologies , and options [...] will be sent to his regular pharmacy.F ollow up in one month for nail check [...] Acquired v algus deformity of left ankle [id number] 26541 M21.072 Curry brace AFO with 6 degrees [...] orthoses until they are wearing the orthoses inspector timers. The AFO device was comfortabl e and [...] None Recorded Advance Directives Directive N: Payers Insurance Date Sequence Insurance Name Policy Number Policy Sinclair Covered Member ID Sinclair Member ID Guarantor Name 12/11/2023 1 [employer] - GOLD PLUS (MEDICARE REPLACEMENT/A DVANTAGE - HMO) [id number] Genie Vora [id number] Genie Vora Notes Date Note Type Note Provider Name and Address Organization Details Recorded Time 07/21/2023 text/html New patient presents for management of painful left foot and ankle. The patient reports that ankle has slowly sagged in the medial direction. He denies any history of trauma. It is worse with prolonged standing or walking.Reported past medical history was reviewed. Jari Winter DPM [facility] [place], [address], [facility] 07/31/2023 03:01:43 09/28/2023 text/html The patient presents for scanning of her left foot and ankle for a Curry brace. This will help her progressive left ankle valgus deformity. Jair Winter DPM [facility] [place], [address], [facility] 09/28/2023 21:49:44 10/19/2023 text/html 1. 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 Concerned about increasing yellowing of toenails. Jair Winter DPM [address], [place], [address], [facility] 10/22/2023 16:25:45 OBGyn Episode No OBEpisode recorded.
--- OUTSIDE RECORDS SUMMARY | 2024-12-09 14:17 | XMS_ITS | Patient Health Record ---
Author Organization [facility] Address [address] [place] [address] Care Team Providers Care Duck Bill Operator Name Role Phone Gaby Gilmore Primary Care Provider Elva giraldoMarcelino Galindoeed Unavailable [phone] Allergies No Known Allergies Reason For Referral No Information Medications Medication SIG (Take, Route, Frequency, Duration) Notes Start Date End Date Status HYDROcodone-Acetamin ophen 5-325 MG 1 (one) Oral two times daily, as needed For NON ACUTE PAIN, [place] pamphlet given, [employer] checked 04/22/2021 Active Problems Problem Type SNOMED Code ICD Code Onset Dates Problem Status W/U Status Risk Notes Problem Lumbosacral spondylosis without myelopathy (disorder) (93424881) Spondylosis without myelopathy or radiculopathy, lumbosacral region (M47.817) Active confirmed Problem Title:SPONDYL OSIS OF LUMBOSACRAL REGION Problem Lumbar radiculopathy (688601395) Radiculopathy, lumbar region (M54.16) Active confirmed Comment:Acute complicated, Problem Post-laminectom y syndrome (39039353) Postlaminectomy syndrome, not elsewhere classified (M96.1) Active confirmed Problem Title:POSTLAM INECTOMY SYNDROME OF CERVICAL REGION Problem Neurogenic claudication (157536536) Spinal stenosis, lumbar region with neurogenic claudication (M48.062) Active confirmed Problem Title:SPINAL STENOSIS OF LUMBAR REGION WITH NEUROGENIC CLAUDICATION Plan Of Treatment No Information Medical (General) History Surgical History Surgery Date(Month/Year) Problem Title : Arm / Leg santiago rgery (specify), Problem Comment : Carpal tunnel, Problem Status : Active, Problem Title : Gallbladder Surgery, Pro blem Status : Active, Problem Title : Lumbar (lowe r back) Surgery, Problem Comment : Stiven Pope, Problem Status : Active, Problem Title : Neck Surgery , Problem Comment : 2014, [facility], Problem Status : Active,
--- OUTSIDE RECORDS SUMMARY | 2024-12-09 14:17 | XMS_ITS ---
Author Name JOYCELYN BORJA Address [address] [place] [address] Phone [facility] Address [address] [address] Phone Care Team Providers Care Cut Out Stitcher Name Role Phone MD JOYCELYN BORJA Unavailable JUVE STEVE Unavailable VASQUEZJUAN LUIS Unavailable JUVE STEVE Unavailable SHEREEN STINSON Unavailable GOLD, VALERIE Unavailable GOLD, VALERIE Unavailable LORCA, NIXON Unavailable ALLERGIES, ADVERSE REACTIONS AND ALERTS Allergy Name Allergy Date Allergy Status Allergy Severity Allergy Reaction NO KNOWN DRUG ALLERGIES MEDICATIONS RxNorm Brand Name Prescription Ordered Value Order Unit Start Date Date Status Fill Status Indications [id number] Ritalin 10 mg tablet SIG: Ritalin 10 mg oral tablet, 30 days, Dispense #90 Tablet, 0 Refills, Directions: Take 1 oral tablet Three times a day 90 tablet 2021 Historic [id number] Ritalin 10 mg tablet SIG: Ritalin 10 mg oral tablet, 30 days, Dispense #90 Tablet, 0 Refills, Directions: Take 1 oral tablet Three times a day 90 tablet 2021 Historic [id number] Ritalin 10 mg tablet SIG: Ritalin 10 mg oral tablet, 30 days, Dispense #90 Tablet, 0 Refills, Directions: Take 1 oral tablet Three times a day 90 tablet 2021 Historic [id number] Ritalin 10 mg tablet SIG: Ritalin 10 mg oral tablet, 30 days, Dispense #90 Tablet, 0 Refills, Directions: Take 1 oral tablet Three times a day 90 tablet 2021 Historic [id number] Ritalin 10 mg tablet SIG: Ritalin 10 mg oral tablet, 30 days, Dispense #90 Tablet, 0 Refills, Directions: Take 1 oral tablet Three times a day 90 tablet 2021 Historic [id number] escitalo pram oxalate 10 mg tablet SIG: escitalopram oxalate 10 mg oral tablet, 45 days, Dispense #45 Tablet, 2 Refills, Directions: Take 1.5 oral tablet once a day 45 tablet 2021 Historic [id number] [place] Thyroid 30 mg tablet SIG: [place] Thyroid 30 mg oral tablet, 30 days, Dispense #60 Tablet, 2 Refills, Directions: Take 1 oral tablet Twice times a day 60 tablet 2021 Historic [id number] Ritalin 10 mg tablet SIG: Ritalin 10 mg oral tablet, 30 days, Dispense #90 Tablet, 0 Refills, Directions: Take 1 oral tablet Three times a day 90 tablet 2021 Historic 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, PREDOM INATTENTIVE TYPE [id number] [place] Thyroid 30 mg tablet SIG: [place] Thyroid 30 mg oral tablet, 90 days, Dispense #180 Tablet, 1 Refills, Directions: Take 1 oral tablet Twice times a day 180 tablet 2021 Historic [id number] escitalo pram oxalate 10 mg tablet SIG: escitalopram oxalate 10 mg oral tablet, 90 days, Dispense #135 Tablet, 1 Refills, Directions: Take 1.5 oral tablet once a day 135 tablet 2021 Historic [id number] Ritalin 10 mg tablet SIG: Ritalin 10 mg oral tablet, 30 days, Dispense #90 Tablet, 0 Refills, Directions: Take 1 oral tablet Three times a day 90 tablet 2021 Historic 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, PREDOM INATTENTIVE TYPE [id number] Ritalin 10 mg tablet SIG: Ritalin 10 mg oral tablet, 30 days, Dispense #90 Tablet, 0 Refills, Directions: Take 1 oral tablet Three times a day 90 tablet 2021 Historic 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 Monitor BP. 90 capsule 2022 Historic [id number] Ritalin 10 mg tablet SIG: Ritalin 10 mg oral tablet, 30 days, Dispense #45 Tablet, 0 Refills, Directions: Take one tab in am and 1/2 tab at 1 pm. 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 Monitor BP. 90 capsule 2022 Historic [id number] Ritalin 10 mg tablet SIG: Ritalin 10 mg oral tablet, 30 days, Dispense #45 Tablet, 0 Refills, Directions: Take one tab in am and 1/2 tab at 1 pm. 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 120 capsule 2022 Historic [id number] Ritalin 10 mg tablet SIG: Ritalin 10 mg oral tablet, 30 days, Dispense #45 Tablet, 0 Refills, Directions: Take one tab in am and 1/2 tab at 1 pm. 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, PREDOM INATTENTIVE TYPE [id number] Ritalin 10 mg tablet SIG: Ritalin 10 mg oral tablet, 30 days, Dispense #60 Tablet, 0 Refills, Directions: Take 1 oral tablet Twice daily 60 tablet 2023 Historic 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, PREDOM INATTENTIVE TYPE [id number] Ritalin 10 mg tablet SIG: Ritalin 10 mg oral tablet, 30 days, Dispense #60 Tablet, 0 Refills, Directions: Take 1 oral tablet Twice daily 60 tablet 2023 Historic 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, PREDOM INATTENTIVE TYPE [id number] Ritalin 10 mg tablet SIG: Ritalin 10 mg oral tablet, 30 days, Dispense #60 Tablet, 0 Refills, Directions: Take 1 oral tablet Twice daily 60 tablet 2023 Historic 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, PREDOM INATTENTIVE TYPE [id number] Ritalin 10 mg tablet SIG: Ritalin 10 mg oral tablet, 30 days, Dispense #60 Tablet, 0 Refills, Directions: Take 1 oral tablet Twice daily 60 tablet 2023 Historic 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, PREDOM INATTENTIVE TYPE [id number] Ritalin 10 mg tablet SIG: Ritalin 10 mg oral tablet, 30 days, Dispense #60 Tablet, 0 Refills, Directions: Take 1 oral tablet Twice daily 60 tablet 2023 Historic 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, PREDOM INATTENTIVE TYPE [id number] Ritalin 10 mg tablet SIG: Ritalin 10 mg oral tablet, 30 days, Dispense #90 Tablet, 0 Refills, Directions: Take 1.50 oral tablets Twice daily 90 tablet 2023 Historic 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, PREDOM INATTENTIVE TYPE [id number] Ritalin 10 mg tablet SIG: Ritalin 10 mg oral tablet, 30 days, Dispense #90 Tablet, 0 Refills, Directions: Take 1.50 oral tablets Twice daily 90 tablet 2023 Historic 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, PREDOM INATTENTIVE TYPE [id number] Ritalin 10 mg tablet SIG: Ritalin 10 mg oral tablet, 30 days, Dispense #90 Tablet, 0 Refills, Directions: Take 1.50 oral tablets Twice daily 90 tablet 2023 Historic 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, PREDOM INATTENTIVE TYPE [id number] atomoxet ine 25 mg capsule SIG: atomoxetine 25 mg oral capsule, 30 days, Dispense #30 Capsule, 1 Refills, Directions: Take 1 oral capsule Once daily in AM 30 capsule 2023 Current PROBLEMS Problem Code Problem Description Problem Status Problem Da te Problem End Date K21.2-RBJIDX-FGOXIMIL AL REFLUX DISEASE WITHOUT ESOPHAGITIS GASTRO-ESOPHAGEAL REFLUX DISEASE WITHOUT ESOPHAGITIS Current 01/06/2022 F90.6-BTZZ-EKSNS HYPERACTIVITY DISORDER, PREDOM INATTENTIVE TYPE ATTN-DEFCT HYPERACTIVITY DISORDER, PREDOM INATTENTIVE TYPE Current 05/11/2022 F33.0-MAJOR DEPRESSIVE DISORDER, RECURRENT, MILD MAJOR DEPRESSIVE DISORDER, RECURRENT, MILD Current 03/11/2024 F33.41-MAJOR DEPRESSIVE DISORDER, RECURRENT, IN PARTIAL REMISSION MAJOR DEPRESSIVE DISORDER, RECURRENT, IN PARTIAL REMISSION Current 10/24/2022 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 Current 11/14/2022 E03.9-HYPOTHYROIDISM, UNSPECIFIED HYPOTHYROIDISM, UNSPECIFIED Current 12/13/2022 PROCEDURES Procedure Description Date Notes NO PROCEDURES PERFORMED ASSESSMENTS Assessment None PLAN OF TREATMENT Assessment Planned Activity LOINC Planned Romero e None CONSULTATION NOTE Note Author Date None HISTORY AND PHYSICAL NOTE Note Author Date None PROGRESS NOTE Note Author Date None DISCHARGE SUMMARY Note Author Date None CHIEF COMPLAINT AND REASON FOR VISIT FUNCTIONAL STATUS Functional or Cognitive Find ing None MENTAL STATUS Cognitive Finding None ENCOUNTERS Encounter Type Provider Diagnoses Start Date Location Disc harged to None SOCIAL HISTORY Social Status Observation Ex-smoker Sex: Female CARE TEAM INFORMATION Cut Out Stitcher Provider ID Role Location Phone JOYCELYN BORJA [id number] [facility] [address] [place] [address] STEVE AN [id number] NURSE PRACTITIONER [address] [place] [address] JUAN LUIS VASQUEZ THERAPIST [address] [place] [address] STEVE AN [id number] NURSE PRACTITIONER [address] [place] [address] SHEREEN STINSON [id number] THERAPIST [address] [place] [phone] VALERIE MALCOLM [id number] NURSE PRACTITIONER [address] [place] [address] VALERIE GOLD [id number] NURSE PRACTITIONER [address] [place] [phone] NIXONJim SHELLEY [id number] THERAPIST [address] [address] [place] [address] INSURANCE PROVIDERS Payer Name Policy type / Coverage type Covered constitution party ID Policy [facility] - MEDICARE Private Health Insurance [id number] SELF
--- OUTSIDE RECORDS SUMMARY | 2024-12-09 14:17 | XMS_ITS | Patient Health Record ---
Author Organization [facility] Address [address] [place] [address] Care Team Providers Care Geological Drafter Name Role Phone ARI VANG DO Primary Care Provider Jayashree Burr Unavailable [phone] Reason For Referral No Information Medications Medication SIG (Take, Route, Frequency, Duration) Notes Start Date End Date Status Lisinopril 10 MG TAKE 1 TABLET BY MORIS TH EVERY DAY Oral for 90 Active Aspirin 81 81 MG 1 tablet Orally Once a day for 30 day(s) Active Prilosec OTC 20 MG 1 tablet 30 minutes before morning meal Orally Once a day for 30 day(s) Active Vitamin D3 50 MCG (1999 UT) 1 capsule Or ally Once a day for 30 day(s) Active Levothyroxine Sodium 50 MCG TAKE 1 TABLE T BY MOUTH EVERY DAY Oral for 90 Active Plavix 75 MG 1 tablet Orally Once a day for 30 day(s) Active Problems Problem Type SNOMED Code ICD Code Onset Dates Problem Status W/U Status Risk Notes Problem 217315180 Overweight (E66.3) Active confirmed Problem 131471759 LUQ pain (R10.12) Active confirmed Problem 44665755 Rectal bleeding (K62.5) Active confirmed Problem 419265764 Family history o f colon cancer (Z80.0) Active confirmed Problem 441208346 Chronic GERD (K21.9) Active confirmed Problem 301824238 Chronic diarrhea (K52.9) Active confirmed Problem 520936066 Encounter for medication review (Z79.899) Active confirmed Problem 8204246 Former smoker (Z87.891) Active confirmed Problem 416017386 Antiplatelet or antithrombotic long-term use (Z79.02) Active confirmed Plan Of Treatment Pending Test Test Name Order Date COLON/BX 02/06/2020 EGD 02/06/2020 Insurance Providers Payer Name Payer Address Payer Phone Subscriber Number Group Number Insured Name Patient Relationship to Insured Coverage Start Date Coverage End Date DO NOT USE NONE BEHZAD Rasmussen [id number] Genie Vora Self - patient is the insured Medical (General) History Medical History History ICD Code stroke (?2013) Hypothyroidism hypercholesterolemia hemorrhoids spinal stenosis ulcers GERD Surgical History Surgery Date(Month/Year) bladder suspension right hip replacement hemorrhoidectomy cholecystectomy hysterectomy back surgery x 5 colonoscopy and egd 2014
--- OUTSIDE RECORDS SUMMARY | 2024-12-09 14:17 | XMS_ITS | Patient Health Record ---
Author Organization [facility] Address [address] [place] [address] Care Team Providers Care Container Shop Welder Name Role Phone Gaby Green Primary Care Provider Parth Mejia Unavailable [phone] Reason For Referral No Information Medications Medication SIG (Take, Route, Frequency, Duration) Notes Start Date End Date Status Zoloft 50 MG 1 tablet Orally Once a day for 30 day(s) Active Lisinopril 10 MG 1 tablet Orally Once a day for 30 day(s) Active Plavix 75 MG 1 tablet Orally Once a day for 30 day(s) Active Pravastatin Sodium 20 MG 1 tablet Orally Once a day for 30 day(s) 05/05/2020 Active Problems Problem Type SNOMED Code ICD Code Onset Dates Problem Status W/U Status Risk Notes Problem Essential hypertension (30946188) Essential (primary) hypertension (I10) Active confirmed Problem Mixed hyperlipidemia (188351243) Mixed hyperlipidemia (E78.2) Active confirmed Problem Secondary pulmonary hypertension (34216908) Other secondary pulmonary hypertension (I27.2) Active confirmed Problem Bradycardia (18966622) Bradycardia, unspecified (R00.1) Active confirmed Problem Dyspnea (577934365) Other forms of dyspnea (R06.09) Active confirmed Plan Of Treatment No Information Insurance Providers Payer Name Payer Address Payer Phone Subscriber Number Group Number Insured Name Patient Relationship to Insured Coverage Start Date Coverage End Date [employer] [address] [address] [place] [address] [phone] [id number] Genie Vora Self - patient is the insured 3 Medical (General) History Medical History History ICD Code Hypertension Dyslipidemia Hx of stroke on Plavix Surgical History Surgery Date(Month/Year) Knee surgery
--- OUTSIDE RECORDS SUMMARY | 2024-12-09 14:17 | XMS_ITS | Clinical Summary ---
Author Organization [facility] Address [address] [facility] [address] [place] [phone] Phone Care Team Providers Care Nurse Private Duty Name Role Phone Magy Sawyer TECHNICAL ADMINISTRATIVE ASSISTANT Primary Care Provider [phone] Allergies Active Allergy Reactions Criticality Noted Date Comments Lansoprazole GI Upset Medium 10/02/2024 Pjkmxgr-Wki-Tjr Reductase Inhibitors Myalgia,Other (See Comments) High 12/26/2015 Muscle Cramping Muscle aches Per pt Medications albuterol 90 mcg/actuation inhaler Inhale 1-2 puffs into the lungs every 6 (six) hours as needed. Active acetaminophen (TYLENOL EXTRA STRENGTH) 500 MG tablet Take 500 mg by mouth every 4 (four) hours as needed. Active amLODIPine (NORVASC) 5 MG tablet Take 5 mg by mouth daily. Active arformoterol (BROVANA) 15 mcg/2 mL Nebu Inhale 15 mcg into the lungs. 06/26/2024 Active apixaban (ELIQUIS) 5 mg tablet Take 5 mg by mouth 2 (two) times a day. 06/28/2024 Active benzonatate (TESSALON) 100 MG capsule Take 100 mg by mouth 3 (three) times a day as needed for cough. 06/26/2024 Active budesonide (PULMICORT) 0.5 mg/2 mL nebulizer solution Inhale 0.5 mg into the lungs daily. 06/26/2024 Active busPIRone (BUSPAR) 7.5 MG tablet Take 7.5 mg by mouth 2 (two) times a day. Active diazePAM (VALIUM) 10 MG tablet Take 10 mg by mouth. 07/11/2024 Active dilTIAZem (DILACOR XR) 120 MG 24 hr capsule Take 120 mg by mouth daily. Active DULoxetine (CYMBALTA) 60 MG capsule Take 60 mg by mouth daily. Active flecainide (TAMBOCOR) 100 MG tablet Take 100 mg by mouth 2 (two) times a day. Active furosemide (LASIX) 20 MG tablet Take 40 mg by mouth daily. 08/01/2024 Active gabapentin (NEURONTIN) 300 MG capsule Take 300 mg by mouth 3 (three) times a day. Active guaiFENesin (MUCINEX) 600 mg ER biphasic tablet Take 600 mg by mouth 2 (two) times a day. 06/26/2024 Active ipratropium-alb uteroL (DUONEB) 0.5-3 mg (2.5 mg base)/3 mL nebulizer solution Inhale 3 mL into the lungs every 6 (six) hours. 06/26/2024 Active levothyroxine (SYNTHROID, LEVOTHROID) 112 MCG tablet Take 112 mcg by mouth daily. 06/04/2024 Active lisdexamfetamin e (VYVANSE) 20 MG capsule Take 20 mg by mouth every morning. Active lisdexamfetamin e (VYVANSE) 30 MG capsule Take 30 mg by mouth every morning. 09/26/2024 Active methocarbamoL (ROBAXIN) 750 MG tablet Take 750 mg by mouth 3 (three) times a day. Active metoprolol tartrate (LOPRESSOR) 25 MG tablet Take 25 mg by mouth 2 (two) times a day. 07/18/2024 Active pantoprazole (PROTONIX) 40 MG tablet Take 40 mg by mouth daily. 06/27/2024 Active predniSONE (DELTASONE) 10 MG tablet Take 10 mg by mouth daily. 08/27/2024 Active pregabalin (LYRICA) 150 MG capsule Take 150 mg by mouth daily. Active senna (SENOKOT) 8.6 mg tablet Take 17.2 mg by mouth daily. 06/26/2024 Active traMADoL (ULTRAM) 50 mg tablet Take 50 mg by mouth every 6 (six) hours as needed. 06/28/2024 Active traZODone (DESYREL) 50 MG tablet Take 50 mg by mouth nightly at bedtime. Active Active Problems Problem Noted Date Diagnosed Date Splenic artery aneurysm 10/02/2024 Assessment & Plan (10/02/2024 1:53 PM EDT): Genie Vora is a 74 y.o. female with an asymptomatic 1.4 cm splenic artery aneurysm. I discussed with her that our threshold for intervention for splenic artery aneurysm include a diameter of 3.0 cm or greater, a pseudoaneurysm, or in all woman of childbearing age, in accordance with the SVS recommended guidelines. She does not currently meet any of this criteria, therefore I recommended annual surveillance. I will have her follow-up in May 2025, which will serve as 1 year follow-up from her most recent CT scan. Will attempt a mesenteric ultrasound at that time to evaluate the diameter of the splenic artery aneurysm. She is in agreement with that plan. We look forward to seeing her at that time. Pre-op evaluation 08/26/2024 Posterior tibial tendon dysf unction (PTTD) of left lower extremity 08/08/2024 Chronic heart failure with preserved ejection fr action 07/01/2024 CKD stage 3a, GFR 45-59 ml/min 07/01/2024 Hyperkalemia 06/24/2024 Constipation 06/22/2024 Overview (10/02/2024): Constipation: Bowel regimen ordered. Elevated serum creatinine 06/20/2024 Diastolic CHF, acute 06/19/2024 Acute respiratory failure with hypoxia Severe asthma with exacerbation 06/18/2024 Chronic obstructive pulmonar y disease with acute exacerbation 06/17/2024 Pneumonia due to organism 06/16/2024 A-fib 06/03/2024 Anxiety 06/03/2024 Hypoxia 06/03/2024 Weakness 06/03/2024 Other specified hypothyroidism 06/27/2018 Vaginal atrophy 05/24/2018 Moderate episode of recurrent major depressive d isorder 03/27/2018 S/P hip replacement 01/18/2017 Overview (10/02/2024): 2013 Dr Jones at [facility] CKD (chronic kidney disease), stage III 12/22/19 17 Obesity 12/21/2016 Fallen bladder 10/06/2016 Overview (10/02/2024): reapir 2000 Dr Chris Saucedo Urogyn eval August 2016 09/26/2016: Surgical procedure Dr. Philip Rees: 1. Posterior colporrhaphy. 2. Perineorrhaphy. 3. Enterocele repair. 4. Cystourethroscopy. History of CVA (cerebrovascular accident) 2016 Overview (10/02/2024): By Ct head 08/05 Rt frontal - [...] however patient is planning on moving to [place] in the next few weeks. She does not want to try the prescription. She is going to try losing weight and adhering to a stricter low carbohydrate, low saturated fat diet. Rectocele 09/12/2016 Overview (10/02/2024): 09/26/[address] Philip Rees: 1. Posterior colporrhaphy. 2. Perineorrhaphy. 3. Enterocele repair. 4. Cystourethroscopy. Voiding dysfunction 09/12/2016 Elevated transaminase level 06/10/2016 Lung nodule 03/20/2016 Overview (10/02/2024): 02/10/2016 CT chest w/o contrast for lung cancer screen showed stable groundglass opacities (when compared with previous ct scan from [facility], but NEW lung nodule R middle lobe 2 mm. Will f/u with screen CT in 1 year ADD (attention deficit disorder) 11/02/2015 Essential hypertension with goal blood pressure less than 140/90 11/02/2015 Flat foot (pes planus) (acquired), left foot Former smoker 11/02/2015 History of gastric ulcer 11/02/2015 History of hysterectomy 11/02/2015 Overview (10/02/2024): Patient being followed by Dr. Irene Christensen in [place]. Confirmed with their office that she is status post total hysterectomy in 1999 for reasons of pelvic organ prolapse. They have elected to do Pap smears anyway, as recently as 06/05/2014 which was negative. Major depression in partial remission 11/02/2015 Overview (10/02/2024): Refer to PCP cpe dated 01/11/16 Psych: Reports anxiety and depression are stable. Sees Dr. Alvarado psychiatrist, in [place]. He prescribes lamotrigine, duloxetine, tramadol, Adderall. Psoriasis 11/02/2015 Mixed hyperlipidemia 10/08/2015 Overview (10/02/2024): Total and ldl remain elevated. Unable to tolerate statins (tried atorvastatin and pravastatin) and zetia. Developed myalgias. The 10-year ASCVD risk score (Beth URBANO Jr., et al., 2013) is: 6.8% Will try Welchol 3.75 gm daily with meal. Recheck lipids in 3 mos-KLE 08/05 The 10-year ASCVD risk score (Beth URBANO Jr, et al., 2013) is: 6.1% Unfortunately Welchol denied by insurance. Attempted PA but denied. 07/2016 CTA incidentally found evidence of old CVA. Lipid-lowering and essential to decrease risk of recurrence. 12/12/2016 follow-up OV: Discussed again. Patient does not want to retry statin or Zetia. The 10-year ASCVD risk score (Beth URBANO Jr, et al., 2013) is: 6.7% GERD (gastroesophageal reflux disease) 6 Overview (10/02/2024): CLAIMS HAD ULCER , HX Ischemic cerebrovascular accident (CVA) of front al lobe 05/22/2015 Overview (10/02/2024): Developed frontal lobe stroke in 2016 -clear etiology Spondylolisthesis 01/09/2015 Posterior tibial tendinitis 10/23/2014 Pain in joint of left shoulder 10/21/2014 Ankle pain 09/01/2014 Sciatica 03/12/2014 Lumbar radiculopathy 03/10/2014 Sacroiliitis 02/14/2014 Achilles tendinitis 12/19/2013 Obstructive sleep apnea syndrome 12/19/2013 Other bursitis, not elsewhere classified, unspec ified site 12/19/2013 Pes planus 12/19/2013 Trochanteric bursitis 12/19/2013 History of pain when walking 12/16/2013 Plantar fasciitis, left 12/16/2013 Foot pain 12/11/2013 Carpal tunnel syndrome of right wrist 07/15/2013 Numbness 07/15/2013 Pain in wrist, left 07/11/2013 Neck pain 06/07/2013 Spondylosis of cervical spine 06/07/2013 Lumbar canal stenosis 02/22/2012 Osteoarthritis of hip 02/22/2012 Pain in thoracic spine 01/21/2011 Joint pain, hip 11/09/2010 Trigger thumb 10/15/2010 Joint pain, knee 02/11/2010 Seborrheic dermatitis 05/29/2009 Encounters Date Type Department Care Team Description 10/17/2024 Telephone [facility] [address] [place] [address] Hector Julien MD Triage 10/02/2024 1:15 PM EDT Office Visit [facility] [address] [place] [address] Hector Julien MD Splenic artery aneurysm (Primary Dx) from Last 3 Months Family History Medical History Relation Comments Stroke Father Stroke Mother Relation Status Comments Father Mother Social History Tobacco Use Types Packs/Day Years Used Date Smoking Tobacco: Former Cigarettes Tobacco Cessation:Counseling Given: Not Answered Education Answer Date Recorded Are you interested in more education? Not on javan e 08/14/2024 Are you concerned about learning? Not on file 08/14/2024 No 08/14/2024 No 08/14/2024 Digital Access Answer Date Recorded No 08/14/2024 No 08/14/2024 Reliable internet access at home? Not on file 08/14/2024 Device with a working camera? Not on file Comments Unknown Sex and Gender Information Value Date Recorded Sex Assigned at Not on file Legal Sex Female 3:19 PM EST Gender Identity Not on file Sexual Orientation Not on file Last Filed Vital Signs Vital Sign Reading Time Taken Comments Blood Pressure 114/60 10/02/2024 1:16 PM EDT Pulse 74 10/02/2024 1:16 PM EDT Temperature - - Respiratory Rate - - Oxygen Saturation 93% 10/02/2024 1:16 PM EDT Inhaled Oxygen Concentration - - Weight 113.4 kg (250 lb) 10/02/2024 1:16 PM EDT Height 167.6 cm (5' 6 ) 10/02/2024 1:16 PM EDT Body Mass Index 40.35 10/02/2024 1:16 PM EDT Plan of Treatment Upcoming Encounters Date Type Department Care Team (Late st Contact Info) Description 06/02/2025 9:00 AM EST Office Visit [facility] [address] [place] [address] 06/02/2025 10:00 AM EST Follow-Up [facility] [address] [place] [address] Mala Hernandez, MEY [address] [place] [address] [address] [place] [address] Health Maintenance Due Date Last Done Comments CREATININE LEVEL 1951 DEPRESSION SCREENING 1963 SMOKING Hx and SMOKELESS TOBACCO SCREENING 1964 HEPATITIS C SCREENING 1969 PNEUMOCOCCAL VACCINES (50+ years) (1 of 2 - PCV) 1970 COLOGUARD 1996 COLONOSCOPY 1996 COLORECTAL CANCER SCREENING 1996 FIT TEST 1996 FOBT 1996 SIGMOIDOSCOPY 1996 VIRTUAL COLONOSCOPY 1996 ZOSTER VACCINES (1 of 2) 2001 RSV VACCINE (1 - Risk 60-74 years 1-dose series) 2011 OSTEOPOROSIS SCREENING INITIAL (ONE-TIME) 2016 COVID-19 VACCINE ( - season) 2024 BLOOD PRESSURE 04/04/2025 10/02/2024 LIPID PANEL 08/09/2025 08/09/2024, 03/2 05/2024, 07/13/2024, Additional history exists TSH LEVEL 08/09/2025 08/09/2024, 06/23, 06/17/2024, Additional history exists Adult Td,Tdap Booster 01/10/2026 01/11/2016 MAMMOGRAM 08/23/2026 08/23/2024, 08/2024, 03/27/2023, Additional history exists HEPATITIS A VACCINES Aged Out No long er eligible based on patient's age to complete this topic HIB VACCINES Aged Out No longer eligi ble based on patient's age to complete this topic MENINGOCOCCAL VACCINES (ACWY) Aged Out No longer eligible based on patient's age to complete this topic MENINGOCOCCAL VACCINES (B) Aged Out N o longer eligible based on patient's age to complete this topic Medical Devices Not on file Insurance [facility] MEDICARE REPLACEMENT [place] MED[place]AC[place] Care Teams Nurse Private Duty Relationship Specialty Start Date End Date Magy Sawyer NP [address] [facility] [address] [place] [address] PCP - General Nurse Practitioner 2/18/25 Additional Source Comments The information contained in this document represents components of the legal health record. It is not the complete legal health record.[facility]
--- OUTSIDE RECORDS SUMMARY | 2024-12-09 14:17 | XMS_ITS ---
Author Organization [facility] Care Team Providers Care Leather Grader Name Role Phone Vero Flores Unavailable Unavailable Gaby Josue Unavailable Unavailable Lotus Beebe october Unavailable Unavailab le Allergies and adverse reactions Code CodeSystem Substance Reaction Severity StartDate Concern Status [id number] SNOMED CT Statins Unknown 11/26/2024 active Care Team Name Role Address Phone Organization Dates October Concepción PCP [address], [address], [place] (Office): : : [facility] 11/26/2024 - 12/06/2024 Vero Flores [address] [address], [place], [address], [place] (Cell): [facility] 11/26/2024 - 12/06/2024 Gaby Josue [address] [place] [address], [place], [address], [place] (Cell): [facility] - SNF 11/26/2024 - 12/06/2024 Goals Section Goals Description Status Target Date Solange will have no episode s of auditory or visual hallucinations through next review. Active 02/24/2025 Solange will return home when skilled services c onclude. Active 02/24/2025 Solange will show no signs/s ymptoms of depression a/e/b no tearful episodes. Active 02/24/2025 Solange will sleep 6 to 8 hours per night. Activ e 02/24/2025 Resident Will Consume 75% of Ordered Diet Each D ay Active 02/24/2025 Resident Will Have Normal Urinary Elimination Pa ttern Active 02/24/2025 Resident Will Pass Soft, For med Stool at a Frequency Perceived as Normal for Residedent Active 02/24/2025 The resident will improve cu rrent level of function in all ADLs and functional mobility through the review date. Active 02/24 Undesirable Behavior(s) Will Be Monitored / Benita ged Active 02/24/2025 Functional Status Code Name Recorded Time Value Entered By Chair/jvc-tu-bvgig transfer 12/06/2024 Independent vivien Does the resident use a whee lchair and/or scooter? 12/06/2024 Not assessed vivien Eating 12/06/2024 Independent vivien Indicate the type of wheelchair or scooter used 2024 Not assessed vivien Indicate the type of wheelchair or scooter used 2024 Not assessed vivien Lower body dressing 12/06/2024 Independent pete ez Lying to sitting on side of bed 12/06/2024 Independe nt vivien Oral hygiene 12/06/2024 Independent vivien Personal hygiene 12/06/2024 Independent vivien Putting on/taking off footwear 12/06/2024 Independen t vivien Roll left and right 12/06/2024 Independent pete ez Sit to lying 12/06/2024 Independent vivien Sit to stand 12/06/2024 Independent vivien Toilet transfer 12/06/2024 Independent [facility] Toileting hygiene 12/06/2024 Independent [facility] Upper body dressing 12/06/2024 Independent [facility] ez Walk 10 feet 12/06/2024 Independent [facility] Walk 150 feet 12/06/2024 Independent [facility] Walk 50 feet 12/06/2024 Independent [facility] Wheel 150 feet 12/06/2024 Not assessed [facility] Wheel 50 feet with two turns 12/06/2024 Not assessed [facility] Immunizations Immunization Status Vaccine Details Vaccine Code CodeSystem Romero e Notes SARS-COV-2 (COVID-19) completed Step 2 of Multi-step created date: 11/26/2024 SARS-COV-2 (COVID-19) completed Step 1 of Multi-step with next step required created date: 11/26/2024 administered date: 02/20/2024 Influenza Seasonal 0.5mL completed Influenza, adjuvanted, inactivated, quadrivalent, injectable, preservative free 205 CVX created date: 11/26/2024 administered date: 02/20/2024 Medications Section Medication Name Status Code CodeSystem Dose Route Frequency Admin Type Sig Text Start Date End Date Pantoprazole Sodium Tablet Delayed Release 40 MG active 669231 RXNORM 40 mg Oral two times a day Routine Give 40 mg by mouth two times a day for GERD 2024 - Ritalin Oral Tablet 10 MG aborted 618599 9 RXNORM 20 mg Oral one time a day Routine Give 20 mg by mouth one time a day for ADD AND Give 10 mg by mouth in the aftern oon for ADD 11/30 826965 9 RXNORM 10 mg Oral in the afternoon Routine Give 20 mg by mouth one time a day for ADD AND Give 10 mg by mouth in the aftern oon for ADD 11/30 Methocarbamol Oral Tablet 750 MG active 077093 RXNORM 750 mg Oral three times a day Routine Give 750 mg by mouth three times a day for muscle spasms 2024 - Narcan Nasal Liquid 4 MG/0.1ML active 169536 4 RXNORM 0.1 ml Nasal as needed PRN 0.1 ml Altern ating nostri ls as needed for Opioid toxici ty Simpson 0.1 ml (4mg) in one nostri l by intran aries route PRN for signs or sympto ms of opioid toxici ty. May repeat x 1 if no improv ement within 2-3 minute s of first dose given. Call MD/NET LEAD DEVELOPER after first dose given, call 911 and prepar e to send to E 2024 - oxyCODONE HCl Oral Tablet 5 MG aborted 584697 1 RXNORM 5 mg Oral as needed PRN Give 5 mg by mouth every 4 hours as needed for pain 11/27 Levothyroxine Sodium Tablet 100 MCG active 435258 RXNORM 100 mcg Oral one time a day Routine Give 100 mcg by mouth one time a day for low thyroi d hormon e 2024 - Ventolin HFA Inhalation Aerosol Solution 108 (90 Base) MCG/ACT active 132869 RXNORM 2 puff Inhalat ion as needed PRN 2 puff inhale orally every 4 hours as needed for sob or wheezi ng 2024 - Tylenol Oral Tablet 325 MG aborted 835322 RXNORM 650 mg Oral as needed PRN Give 650 mg by mouth every 6 hours as needed for Fever or Pain Do not exceed 3g/24 hours. 11/28 Bisacodyl Laxative Suppository 10 MG active 960179 RXNORM 1 suppos itory Rectal as needed PRN Insert 1 suppos itory rectal ly as needed for Bowel Manage ment Insert 1 suppos itory rectal ly as needed for Bowel Manage ment daily. 2024 - Milk of Magnesia Oral Suspension 400 MG/5ML active 30 ml Oral as needed PRN Give 30 ml by mouth as needed for consti pation May have one dose daily 2024 - MiraLax Powder 17 GM/SCOOP active 592953 RXNORM 17 gram Oral as needed PRN Give 17 gram by mouth as needed for Bowel Manage ment Give 17 gram mixed in 4-8oz fluid of choice by mouth as need for Bowel Manage ment daily 2024 - Fleet Enema Rectal Enema 7-19 GM/118ML active 1 applic ation Rectal as needed PRN Insert 1 applic ation rectal ly as needed for Bowel Manage ment Insert 1 applic ation rectal ly as needed for Bowel Manage ment daily 2024 - Tubersol Solution 5 UNIT/0.1ML active 700792 RXNORM 0.1 ml Intrade rmal every evening shift Routine Inject 0.1 ml intrad ermall y every evenin g shift for TB (Tuber culosi s) Screen ing for 1 Admini strati ons AND Inject 0.1 ml intrad ermall y every evenin g shift for TB (Tuber culosi s) Screen ing for 1 Admini strati ons 11/29 929411 RXNORM 0.1 ml Intrade rmal every evening shift Routine Inject 0.1 ml intrad ermall y every evenin g shift for TB (Tuber culosi s) Screen ing for 1 Admini strati ons AND Inject 0.1 ml intrad ermall y every evenin g shift for TB (Tuber culosi s) Screen ing for 1 Admini strati ons 12/06 Pregabalin Oral Capsule 150 MG active 232556 RXNORM 150 mg Oral two times a day Routine Give 150 mg by mouth two times a day for pain 2024 - Mucinex Oral Tablet Extended Release 12 Hour active 600 mg Oral two times a day Routine Give 600 mg by mouth two times a day for conges tion 2024 - DilTIAZem HCl ER Capsule Extended Release 24 Hour 120 MG active 846445 RXNORM 120 mg Oral one time a day Routine Give 120 mg by mouth one time a day for HTN 2024 - Eliquis Oral Tablet 5 MG active 943768 7 RXNORM 5 mg Oral two times a day Routine Give 5 mg by mouth two times a day for antico agulan t 2024 - Flecainide Acetate Tablet 100 MG active 571423 RXNORM 100 mg Oral every 12 hours Routine Give 100 mg by mouth every 12 hours for irregu lar heartb eat 2024 - busPIRone HCl Oral Tablet 7.5 MG active 407999 RXNORM 7.5 mg Oral two times a day Routine Give 7.5 mg by mouth two times a day for anxiet y 2024 - Furosemide Oral Tablet 40 MG active 590529 RXNORM 40 mg Oral in the morning Routine Give 40 mg by mouth in the mornin g for edema 2024 - DULoxetine HCl Oral Capsule Delayed Release Sprinkle 60 MG active 880596 RXNORM 60 mg Oral in the morning Routine Give 60 mg by mouth in the mornin g for depres heriberto 2024 - Senna Oral Tablet 8.6 MG active 8.6 mg Oral as needed PRN Give 8.6 mg by mouth as needed for consti pation PRN nightl ty 2024 - TraZODone HCl Tablet 50 MG active 533794 RXNORM 50 tablet Oral at bedtime Routine Give 50 tablet by mouth at bedtim e for sleep give 50mg at bedtim e for sleep 2024 - Albuterol Sulfate Nebulization Solution (2.5 MG/3ML) 0.083% aborted 950633 RXNORM 3 millil iter Inhalat ion as needed PRN 3 millil iter inhale orally via nebuli zer every 6 hours as needed for Shortn ess of Breath Rinse mouth with water after each use 11/27 Ipratropium-A lbuterol Solution 0.5-2.5 (3) MG/3ML active 394127 2 RXNORM 3 ml Inhalat ion as needed PRN 3 ml inhale orally every 4 hours as needed for SOB or Wheezi ng via nebuli zer. R ise mouth with water after each use. 2024 - oxyCODONE HCl Oral Tablet 5 MG aborted 256059 1 RXNORM 10 mg Oral as needed PRN Give 10 mg by mouth every 4 hours as needed for for pain 7-10 11/27 oxyCODONE HCl Oral Tablet 5 MG active 691376 1 RXNORM 5 mg Oral as needed PRN Give 5 mg by mouth every 4 hours as needed for modera te pain #4-6 AND Give 10 mg by mouth every 4 hours as needed for severe pain #7-10 2024 - 474702 1 RXNORM 10 mg Oral as needed PRN Give 5 mg by mouth every 4 hours as needed for modera te pain #4-6 AND Give 10 mg by mouth every 4 hours as needed for severe pain #7-10 2024 - Tylenol Oral Tablet 325 MG active 155085 RXNORM 650 mg Oral three times a day Routine Give 650 mg by mouth three times a day for pain do not exceed 3g in 24 hours of acetam inophe n from all source s 2024 - CeleBREX Oral Capsule 200 MG complete d 398173 RXNORM 200 mg Oral one time a day Routine Give 200 mg by mouth one time a day for ankle and back pain and swelli ng for 3 Days 12/02 Tylenol Oral Tablet 325 MG active 164848 RXNORM 650 mg Oral as needed PRN Give 650 mg by mouth every 24 hours as needed for Fever or Pain Do not exceed 3g/24 hours. 2024 - Ritalin Oral Tablet 10 MG active 404430 9 RXNORM 10 mg Oral one time a day Routine Give 10 mg by mouth one time a day for ADD AND Give 10 mg by mouth in the aftern oon for ADD 2024 - 196676 9 RXNORM 10 mg Oral in the afternoon Routine Give 10 mg by mouth one time a day for ADD AND Give 10 mg by mouth in the aftern oon for ADD 2024 - Problems Problem # Description Date of onset Resolved Date Code CodeSystem Concern Status 1 CHRONIC KIDNEY DISEASE, STAGE 3A [address] active 2 CHRONIC OBSTRUCTIVE PULMONARY DISEASE, UNSPECIFIED [address] active 3 ENCOUNTER FOR OTHER ORTHOPEDIC AFTERCARE [address] active 4 ESSENTIAL (PRIMARY) HYPERTENSION [address] active 5 HYPERLIPIDEMIA, UNSPECIFIED [address] active 6 OBSTRUCTIVE SLEEP APNEA (ADULT) (PEDIATRIC) [address] active 7 PAIN IN RIGHT FOOT [address] active 8 UNSPECIFIED ATRIAL FIBRILLATION [address] active Reason for Referral No Reasons for Referral Entered Diagnostic Results Result Code Code System Date Test Result Interpretation Reference Range Status Notes [id number] LOINC 12/04 Basic Metabolic Panel / Complete Blood Count (CBC) w/Auto Differenti al Completed Result for: SOLANGE VORA ( 1950, F) 2345-7 LOINC 12/04 GLUCOSE Value: 93 Units: mg/dL Normal 70 - 120 Final 3094-0 [facility] 12/04 BUN Value: 29 Units: mg/dL High 10 - 24 Final 2160-0 [facility] 12/04 CREATININE Value: 1.17 Units: mg/dL Normal 0.70 - 1.50 Final 80817-7 [facility] 12/04 CALCIUM Value: 9.4 Units: mg/dL Normal 8.4 - 10.2 Final 2951-2 [facility] 12/04 SODIUM Value: 141 Units: mmol/L Normal 133 - 145 Final 2823-3 [facility] 12/04 POTASSIUM Value: 4.9 Units: mmol/L Normal 3.3 - 5.1 Final 5-0 [facility] 12/04 CHLORIDE Value: 103 Units: mmol/L Normal 96 - 108 Final 123-999 99-9 [facility] 12/04 CO2 Value: 31 Units: mmol/L Normal 22 - 33 Final 123999 99-9 [facility] 12/04 eGFR Value: 49 Units: mL/min/{1.7 3_m2} Low >=90 Final Interpreta tion of eGFR: 90 or more Normal Stage 1 (if proteinuri a) 60-89 Mildly Reduced Stage 2 30-59 Moderately Reduced Stage 3 15-29 Severely Reduced Stage 4 <15 Kidney Failure Stage 5 Reference: http://nkd ep.nih.gov /professio nals/index .htm 123-999 99-9 [facility] 12/04 WBC Value: 5.6 Units: K/uL Normal 4.8 - 10.8 Final 789-8 [facility] 12/04 RBC Value: 3.62 Units: M/uL Low 4.00 - 5.10 Final 718-7 [facility] 12/04 HGB Value: 10.4 Units: g/dL Low 12.1 - 15.7 Final 4544-3 [facility] 12/04 HCT Value: 31.1 Units: % Low 35.0 - 45.0 Final 787-2 [facility] 12/04 MCV Value: 85.9 Units: fL Normal 78.0 - 102.0 Final 785-6 [facility] 12/04 MCH Value: 28.7 Units: pg Normal 26.0 - 34.0 Final 786-4 [facility] 12/04 MCHC Value: 33.4 Units: g/dL Normal 30.0 - 37.0 [facility] 12/04 RDW-SD Value: 46.4 Units: fL Normal 37.0 - 51.0 Final [facility] [address] 12/04 RDW-CV Value: 15.2 Units: % Normal 11.0 - 16.0 Final 777-3 [facility] 12/04 PLATELET COUNT Value: 379.0 Units: K/uL Normal 150.0 - 400.0 Final [facility] [address] 12/04 MPV Value: 8.3 Units: fL Low 9.4 - 12.4 [facility] [address] 12/04 NEUTS Value: 55.0 Units: % Normal 40.0 - 70.0 Final [facility] [address] [place] [address] 12/04 LYMPHS Value: 31.60 Units: % Normal 20.00 - 40.00 Final [facility] [address] [place] [address] 12/04 MONOS Value: 10.00 Units: % Normal 3.00 - 12.00 Final [facility] [address] 12/04 EOS Value: 2.60 Units: % Normal 0.00 - 5.00 Final [facility] [address] 12/04 BASO Value: 0.80 Units: % Normal 0.00 - 2.00 Final [facility] [address] 12/04 ABS NEUTROPHIL S Value: 3.10 Units: K/uL Normal 1.80 - 7.70 Final [facility] [address] 12/04 ABS LYMPHOCYTE S Value: 1.80 Units: K/uL Normal 1.00 - 4.[address] [place] [address] 12/04 ABS MONOCYTES Value: 0.60 Units: K/uL Normal 0.20 - 1.00 Final [facility] 99-9 [facility] 12/04 ABS EOSINOPHIL S Value: 0.10 Units: K/uL Normal 0.02 - 0.[address] [place] [address] 999 [facility] 12/04 ABS BASOPHILS Value: 0.00 Units: K/uL Low 0.02 - 0.[address] [place] [address] 999 [facility] 12/04 ABS NUCLEATED RBC Value: 0.04 Units: K/uL Normal Final [address] [place] [address] 999 [facility] 12/04 Complete Blood Count (CBC) w/Auto Differenti al Value: See Attachment Units: Normal Final [id number] [facility] 11/27 Basic Metabolic Panel / Complete Blood Count (CBC) w/Auto Differenti al Completed Result for: SOLANGE VORA ( 1950, F) 2345-7 [facility] 11/27 GLUCOSE Value: 96 Units: mg/dL Normal 70 - 120 Final 3094-0 [facility] 11/27 BUN Value: 27 Units: mg/dL High 10 - 24 Final 2160-0 [facility] 11/27 CREATININE Value: 1.29 Units: mg/dL Normal 0.70 - 1.50 Final 58883-3 [facility] 11/27 CALCIUM Value: 8.7 Units: mg/dL Normal 8.4 - 10.2 Final 2951-2 [facility] 11/27 SODIUM Value: 145 Units: mmol/L Normal 133 - 145 Final 2823-3 [facility] 11/27 POTASSIUM Value: 4.3 Units: mmol/L Normal 3.3 - 5.1 Final 2075-0 [facility] 11/27 CHLORIDE Value: 108 Units: mmol/L Normal 96 - 108 Final [facility] [address] 11/27 CO2 Value: 29 Units: mmol/L Normal 22 - [address] [place] [address] 11/27 eGFR Value: 44 Units: mL/min/{1.7 3_m2} Low >=90 Final Interpreta tion of eGFR: 90 or more Normal Stage 1 (if proteinuri a) 60-89 Mildly Reduced Stage 2 30-59 Moderately Reduced Stage 3 15-29 Severely Reduced Stage 4 <15 Kidney Failure Stage 5 Reference: http://nkd ep.nih.gov /william nals/index .htm [facility] 11/27 WBC Value: 5.2 Units: K/uL Normal 4.8 - 10.8 Final 789-8 [facility] 11/27 RBC Value: 3.22 Units: M/uL Low 4.00 - 5.10 Final 7187 [facility] 11/27 HGB Value: 9.4 Units: g/dL Low 12.1 - 15.7 Final 4544-3 [facility] 11/27 HCT Value: 28.0 Units: % Low 35.0 - 45.0 Final 787-2 [facility] 11/27 MCV Value: 86.9 Units: fL Normal 78.0 - 102.0 Final 785-6 [facility] 11/27 MCH Value: 29.2 Units: pg Normal 26.0 - 34.0 Final 786-4 [facility] 11/27 MCHC Value: 33.7 Units: g/dL Normal 30.0 - 37.0 Final [facility] 11/27 RDW-SD Value: 49.9 Units: fL Normal 37.0 - 51.0 Final [facility] 11/27 RDW-CV Value: 15.9 Units: % Normal 11.0 - 16.0 Final 777-3 [facility] 11/27 PLATELET COUNT Value: 277.0 Units: K/uL Normal 150.0 - 400.0 Final [facility] 11/27 MPV Value: 8.6 Units: fL Low 9.4 - 12.4 Final [facility] 11/27 NEUTS Value: 48.8 Units: % Normal 40.0 - 70.[address] [place] [address] 11/27 LYMPHS Value: 35.40 Units: % Normal 20.00 - 40.[address] [place] [address] 11/27 MONOS Value: 12.50 Units: % High 3.00 - 12.[address] [place] [address] 11/27 EOS Value: 2.90 Units: % Normal 0.00 - 5.[address] [place] [address] 11/27 BASO Value: 0.40 Units: % Normal 0.00 - 2.[address] [place] [address] 11/27 ABS NEUTROPHIL S Value: 2.50 Units: K/uL Normal 1.80 - 7.[address] [place] [address] 11/27 ABS LYMPHOCYTE S Value: 1.80 Units: K/uL Normal 1.00 - 4.[address] [place] [address] 11/27 ABS MONOCYTES Value: 0.70 Units: K/uL Normal 0.20 - 1.[address] [place] [address] 11/27 ABS EOSINOPHIL S Value: 0.10 Units: K/uL Normal 0.02 - 0.[address] [place] [address] 11/27 ABS BASOPHILS Value: 0.00 Units: K/uL Low 0.02 - 0.[address] [place] [address] 11/27 ABS NUCLEATED RBC Value: 0.01 Units: K/uL Normal Final [address] [place] [address] 11/27 Complete Blood Count (CBC) w/Auto Differenti al Value: See Attachment Units: Normal Final Test Code Code System Name Date Basic Metabolic Panel 2024 Complete Blood Count (CBC) w /Auto Differential 12/04/2024 Basic Metabolic Panel 2024 Complete Blood Count (CBC) w /Auto Differential 11/27/2024 Social History Social History Observation Description Start Date End Date Code Code System Current Smoking Status Tobacco smoking consumption unknown [id number] SNOMED CT Sex Assigned At Female 1950 34140-9 [facility] Gender Identity Vital Signs Code Code System Vitals Name Values and Units Timing Information 57381-0 [facility] Pain Level Value=4.0 12/06/2024 9279-1 [facility] Respiratory Rate Value=18.0 Units=/m in 12/06/2024 8462-4 [facility] Blood Pressure-Diastolic Value=90 Un its=mmHg 12/06/2024 8480-6 [facility] Blood Pressure-Systolic Xuvcr=365 Un its=mmHg 12/06/2024 8310-5 [facility] Body Temperature Value=98.0 Units= F 12/06/2024 8867-4 [facility] Heart rate Value=76.0 Units=/min 18579-3 [facility] O2 % BldC Oximetry Value=96.0 Units= % 12/06/2024 04647-0 [facility] Weight Cgnkm=839.2 Units=Lbs 8302-2 [facility] Height Value=66.0 Units=Inches 11/27/2024
--- OUTSIDE RECORDS SUMMARY | 2024-12-09 14:17 | XMS_ITS | Encounter Summary ---
Author Organization [facility] Address [address] [place] [address] Care Team Providers Care General Engineer Name Role Phone Bijal Fox [employer] Primary Care Provider Encounter Details Date Type Department Care Team (Late st Contact Info) Description 07/20/2024 Orders Only [facility] [address] [place] [address] Magy Sawyer NP [address] [facility] [address] [place] [id number] Swelling of limb (Primary Dx) Social History Tobacco Use Types Packs/Day Years Used Date Smoking Tobacco: Former Smokeless Tobacco: Never Comments:: Alcohol Use Standard Drinks/Week Comments Not Currently 0 (1 standard drink = 0.6 oz pur e alcohol) [facility] Utilities Answer Date Recorded In the past 12 months has th e [employer], gas, oil, or water [employer] threatened to shut off services in your [...] Upcoming Encounters Date Type Department Care Team ([facility] Contact Info) Description 12/30/2024 10:00 AM EDT Follow-Up [facility] [address] [place] [address] MarvinJeffery PA [address] [place] [address] 01/08/2025 10:00 AM EDT Follow-Up [facility] 100 [facility] Cardiology [address] [place] [address] [address] [place] [address] Mabel Onofre NP 100 [facility] [address] [place] [address] 02/04/2025 2:15 PM EDT Follow-Up [facility] Nephrology [address] [place] [address] [address] [place] [address] John Hendricks MD [address] [address] documented as of this encounter Results * Due to [place] state law, this organization might not be sharing negative HIV tests. * N-terminal ProBrain Natriuretic Peptide - [facility] Only (08/09/2024 1:16 PM EDT) Pro-B-Type Natriuretic Peptide 203 <=900 pg/mL 08/09/2024 2:31 PM EDT [facility] Comment: RULE IN CHF >/= [...] 08/09/2024 1:33 PM EDT us Magy Sawyer [employer] LAB BLOOD ORDERABLES Final Res ult [facility] [address] [facility] [address] [place] [address], [place] [phone] documented in this encounter Visit Diagnoses Diagnosis Swelling of limb- Primary documented in this encounter Care Teams General Engineer Relationship Specialty Start Date End Date Bijal Fox NP 100 [facility] [address] [place] [address] PCP - General Family Medicine 05/30/24 documented as of this encounter
--- OUTSIDE RECORDS SUMMARY | 2024-12-09 14:17 | XMS_ITS | Clinical Summary ---
Author Organization [facility] Address [address] [place] [address] Care Team Providers Care Support Merchandiser Name Role Phone Unavailable Primary Care Provider Unavailabl e Social History Tobacco Use Types Packs/Day Years Used Date Smoking Tobacco: Never Assessed Comments Unknown Sex and Gender Information Value Date Recorded Sex Assigned at Not on file Legal Sex Female 12:29 AM EST Gender Identity Not on file Sexual Orientation Not on file Plan of Treatment Not on file
--- OUTSIDE RECORDS SUMMARY | 2024-12-09 14:17 | XMS_ITS | Patient Health Record ---
Author Organization [email or web address] Address [address] [phone] Care Team Providers Care Sail Finisher Machine Name Role Phone Noe Crum DO Primary Care Provider Hernan Monae Unavailable [phone] Allergies Allergen (clinical drug ingredient) Drug/Non Drug Allergy documented on EMR Reaction Allergy Type Onset Date Status gabapentin Gabapentin HTN Drug Allergy Activ e Substance with 7-clrhywx-1-methylg lutaryl-coenzyme A reductase inhibitor mechanism of action (substance) Statins joint pain and enzyms elevatedd Drug Allergy Active Reason For Referral No Information Medications Medication SIG (Take, Route, Frequency, Duration) Notes Start Date End Date Status Synthroid 100 MCG 1 tablet in the morn ing on an empty stomach Orally Once a day Active Gabapentin 100 MG 1 capsule Oral three times a day for 90 days Active Flecainide Acetate 100 MG 1 Tablet Orall y every 12 hrs for 30 days Active Cymbalta 60 MG 1 capsule Orally Onc e a day Active cloNIDine HCl 0.1 MG 1 tablet Orally Once a day As needed HTN > 160 Active Losartan Potassium 50 MG 1 tablet Orally Twice a day for 30 days Active dilTIAZem HCl ER Coated Beads 120 MG 1 capsule Oral Twice a day for 90 days Active Eliquis 5 MG 1 tablet Orally twic e a day Active Problems Problem Type SNOMED Code ICD Code Onset Dates Problem Status W/U Status Risk Notes Problem Hypothyroidism (06380103) Hypothyroidism, unspecified (E03.9) Active confirmed Problem Mixed hyperlipidemia (068638377) Mixed hyperlipidemia (E78.2) Active confirmed Problem Essential hypertension (94759011) Essential (primary) hypertension (I10) Active confirmed Problem Atrial flutter (0618652) Unspecified atrial flutter (I48.92) Active confirmed Problem Atrial fibrillation (42500566) Episodic atrial fibrillation (I48.0) Active confirmed Problem Preoperative cardiovascular examination (901027483) Pre-procedural cardiovascular examination (Z01.810) Active confirmed Plan Of Treatment No Information Insurance Providers Payer Name Payer Address Payer Phone Subscriber Number Group Number Insured Name Patient Relationship to Insured Coverage Start Date Coverage End Date [employer] [place] [address] [address] [place], [place] [id number] Genie Vora Self - patient is the insured
--- OUTSIDE RECORDS SUMMARY | 2024-12-09 14:17 | XMS_ITS | Patient Health Record ---
Author Organization [facility] Address [facility] [place] [address] Care Team Providers Care Matrix Drier Tender Name Role Phone Hernan Donaldson Primary Care Provider Unavailabl e Reason For Referral No Information Plan Of Treatment No Information Insurance Providers Payer Name Payer Address Payer Phone Subscriber Number Group Number Insured Name Patient Relationship to Insured Coverage Start Date Coverage End Date [employer] [address] [address] [place] [address] [id number] SOLANGE PATIÑO Self - patient is the insured
--- OUTSIDE RECORDS SUMMARY | 2024-12-09 14:17 | XMS_ITS | Clinical Summary ---
Author Organization [facility] Address [address] [place] [address] Care Team Providers Care Svp Digital Ad Sales Name Role Phone Pcp, No Primary Care Provider [phone] Social History Tobacco Use Types Packs/Day Years [...] Adults 18 yrs or above (or HM Modifier)([facility]) 1969 Hepatitis C Virus Infection in Adolescents and Adults: Screening (or Modifier) ([facility]) 1969 SDOH Screening Reminder: Corry viy for all adults ([facility]) 1969 Tobacco Smoking Cessation: i n Adults excluding Women: Behavioral and Pharmacotherapy Interventions ([facility]) 1969 DTaP/Tdap/Td Vaccines ([facility]) (1 - Tdap) 1970 Colorectal Cancer Screening 45 -75 Yrs (or HM Modifier ) 1996 Colorectal Cancer: FLEXIBLE SIGMOIDOSCOPY Screening every 5 yrs 1996 Colorectal Cancer: Fecal Imm unochemical Test (FIT) Annually [facility] 1996 Colorectal Cancer: High-sens itivity gFOBT Screening Annually [facility] 1996 Colorectal Cancer: Stool Col oguard Screening every 3 yrs 1996 Colorectal Cancer:CT Colonography Screening every 5 yr s 1996 Breast Cancer: Screening Corry ivy age 50-74 yrs (or HM Modifier)([facility]) 2001 Pneumococcal Vaccination Scr eening: Patients 50+ yrs of age ([facility]) (1 of 1 - PCV) 2001 Zoster/Shingles Vaccine Seri es Screening: Adults aged 18+ yrs (or HM Modifiers)([facility]) (1 of 2) 2001 Osteoporosis Screening to Pr event Fractures: Women aged 65 years+ ([facility]) 2016 COVID-19 Vaccine Screening: Initial Series and Booster Status ([facility]) (2023- season) 2024 Flu Vaccination: Ages 65+: Y early High Dose Recommended (or Modifier)([facility]) 12/20/2024 RSV Vaccines (1 - 1-dose 75+ series) 2026 [employer] Not on file Insurance Care Teams Svp Digital Ad Sales Relationship Specialty Start Date End Date Pcp, No PCP - General Family Medicine 08/15/20
--- OUTSIDE RECORDS SUMMARY | 2024-12-09 14:18 | XMS_ITS | Patient Health Record ---
Author Organization [facility], [facility]. 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 Unavailable [phone] Allergies Allergen (clinical drug ingredient) Drug/Non Drug Allergy documented on EMR Reaction Allergy Type Onset Date Status baclofen Baclofen hallucinations Drug Allergy Ac tive Substance with 3-tqwuvzo-5-methyl glutaryl-coenzyme A reductase inhibitor mechanism of action (substance) Statins muscle weakness/pain Drug Allergy A ctive Results Component Value Reference Range Notes Cardiovascular Risk Assessme nt Reviewed date:04/03/2024 08:08:37 AM Interpretation: Performing Lab:[facility], Phone - [phone], Director - [place] Notes/Report: Interpretation Note Supplemental report is available. PDF Not applicable [facility] CKD Program Reviewed date:04/03/2024 08:08:37 AM Interpretation: Performing Lab:[facility] [place], Phone - [phone], Director - [place] Notes/Report: Interpretation Note Supplemental report is available. PDF . Lipid Panel Reviewed date:04/03/2024 08:08:37 AM Interpretation: Performing Lab:[facility] [place] [facility], Phone - [phone], Director - [place] Notes/Report: Cholesterol, Total 249 100-199 mg/dL Triglycerides 119 0-149 mg/dL HDL Cholesterol 89 >39 mg/dL VLDL Cholesterol Anuj 20 5-40 mg/dL LDL Chol Calc (NIH) 140 0-99 mg/dL Hemoglobin A1c Reviewed date:04/03/2024 08:08:37 AM Interpretation: Performing Lab:[facility], Phone - [phone], Director - [place] Notes/Report: Hemoglobin A1c 5.9 4.8-5.6 % . Prediabetes: 5.7 - 6.4 Diabetes: >6.4 Glycemic control for adults with diabetes: <7.0 PDF Report1 LCLS CMP Reviewed date:04/03/2024 08:08:37 AM Interpretation: Performing Lab:[facility], Phone - [phone], Director - [place] Notes/Report: Glucose 89 70-99 mg/dL BUN 24 8-27 mg/dL Creatinine 1.19 0.57-1.00 mg/dL eGFR 49 >59 mL/min/1.73 BUN/Creatinine Ratio 20 12-28 Sodium 138 134-144 mmol/L Potassium 5.5 3.5-5.2 mmol/L Chloride 101 96-106 mmol/L Carbon Dioxide, Total 24 20-29 mmol/L Calcium 9.6 8.7-10.3 mg/dL Protein, Total 6.6 6.0-8.5 g/dL Albumin 4.4 3.8-4.8 g/dL Globulin, Total 2.2 1.5-4.5 g/dL Bilirubin, Total 0.3 0.0-1.2 mg/dL Alkaline Phosphatase 120 44-121 IU/L AST (SGOT) 22 0-40 IU/L ALT (SGPT) 23 0-32 IU/L CBC Reviewed date:04/03/2024 08:08:37 AM Interpretation: Performing Lab:[facility], Phone - [phone], Director - [place] Notes/Report: WBC 5.6 3.4-10.8 x10E3/uL RBC 4.05 3.77-5.28 x10E6/uL Hemoglobin 12.2 11.1-15.9 g/dL Hematocrit 37.1 34.0-46.6 % MCV 92 79-97 fL MCH 30.1 26.6-33.0 pg MCHC 32.9 31.5-35.7 g/dL RDW 12.3 11.7-15.4 % Platelets 203 150-450 x10E3/uL Neutrophils 62 Not Estab. % Lymphs 26 Not Estab. % Monocytes 8 Not Estab. % Eos 3 Not Estab. % Basos 1 Not Estab. % Neutrophils (Absolute) 3.4 1.4-7.0 x10E3/uL Lymphs (Absolute) 1.5 0.7-3.1 x10E3/uL Monocytes(Absolute) 0.5 0.1-0.9 x10E3/uL Eos (Absolute) 0.2 0.0-0.4 x10E3/uL Baso (Absolute) 0.1 0.0-0.2 x10E3/uL Immature Granulocytes 0 Not Estab. % Immature Grans (Abs) 0.0 0.0-0.1 x10E3/uL Reason For Referral Reason 12/18/23 DX: M47.816 Referral Organization [facility] Referring Provider First Name Noe Referring Provider Last Name Radames Referring Provider Speciality Internal M edicine Referred Provider Ruperto Lee Referred Provider Specialty Pain Medicin e Procedure 1 televisit EST INTERM EDIATE OFFICE VISIT (63953) Procedure 2 X-RAY EXAM OF NECK S PINE (98887) Procedure 3 X-RAY EXAM OF NECK S PINE (47747) Procedure 4 Trigger Point 1-2 Mu scles () Procedure 5 Trigger Point 3+ Mus cles () Procedure 6 Dexamethasone 4MG/ML (J1100) Procedure 7 TRIAMCINOLONE 10 MG/ IM (J3301) Referral Priority Routine Referral Appointment Date 12/18/2023 Reason 01/02/24 DX: M54.2 Referral Organization [facility], [facility]. Referring Provider First Name Noe Referring Provider Last Name Radames Referring Provider Speciality Internal edicine Referred Provider [facility] Referred Provider Specialty Orthopedic S urgery Procedure 1 televisit EST INTERM EDIATE OFFICE VISIT (96576) Procedure 2 X-RAY EXAM OF NECK S PINE (70912) Procedure 3 X-RAY EXAM OF NECK S PINE (44222) Procedure 4 Trigger Point 1-2 Mu scles () Procedure 5 Trigger Point 3+ Mus cles () Procedure 6 Dexamethasone 4MG/ML (J1100) Procedure 7 TRIAMCINOLONE 10 MG/ IM (J3301) Referral Priority Routine Referral Appointment Date 01/02/2024 Reason 01/23/24 DX: M54.2 Referral Organization [facility] Referring Provider First Name Noe Referring Provider Last Name Radames [facility] Referred Provider Ruperto Lee Referred Provider Specialty Pain Medicin e Procedure 1 televisit EST INTERM EDIATE OFFICE VISIT (67108) Referral Priority Routine Referral Appointment Date 01/23/2024 Reason 01/11/24 DX: M54.12 Referral Organization [facility] Referring Provider First Name Noe Referring Provider Last Name Radames Referring Provider [facility] edicine Referred Provider Ruperto Lee Referred Provider Specialty Pain Medicin e Procedure 1 NJX INTERLAMINAR CRV /THRC (47431) Referral Priority Routine Referral Appointment Date 01/11/2024 Reason 02/05/24 DX: M54.50 Referral [facility] Referring Provider First Name Noe Referring Provider Last Name Radames Referring Provider [facility] edicine Referred Provider Ruperto Lee Referred Provider Specialty Pain Medicin e Procedure 1 televisit EST INTERM EDIATE OFFICE VISIT (66210) Procedure 2 X-RAY EXAM OF LOWER SPINE (42662) Procedure 3 X-RAY EXAM OF LOWER SPINE (52692) Procedure 4 X-RAY EXAM OF LOWER SPINE (10835) Procedure 5 X-RAY EXAM OF TRUNK SPINE (41560) Procedure 6 Trigger Point 1-2 Mu scles () Procedure 7 Trigger Point 3+ Mus cles () Procedure 8 TRIAMCINOLONE 10 MG/ IM (J3301) Procedure 9 Dexamethasone 4MG/ML (J1100) Referral Priority Routine Referral Appointment Date 02/05/2024 Reason 02/13/24 DX: M54.2 Referral Organization [facility] Referring Provider First Name Noe Referring Provider Last Name Radames Referring Provider [facility] Referred Provider [facility] Referred Provider Specialty Orthopedic S urgery Procedure 1 televisit EST INTERM EDIATE OFFICE VISIT (61430) Procedure 2 X-RAY EXAM OF NECK S PINE (53627) Procedure 3 X-RAY EXAM OF NECK S DAYAN (35714) Procedure 4 Trigger Point 1-2 Mu scles (29064) Procedure 5 Trigger Point 3+ Mus cles (33072) Procedure 6 Dexamethasone 4MG/ML (J1100) Procedure 7 TRIAMCINOLONE 10 MG/ IM (J3301) Referral Priority Routine Referral Appointment Date 02/13/2024 Reason 02/27/24 DX: G89.4 Z 79.891 Referral Organization [facility] Referring Provider First Name Noe Referring Provider Last Name Radames Referring Provider Speciality Internal edicine Referred Provider Shannan [facility] Referred Provider Specialty Pain Medicin e Procedure 1 Televisit MA[facility] COMPREH ENSIVE VISIT (10591) Procedure 2 DRUG TEST PRSMV DIR OPT OBS (53807) Referral Priority Routine Referral Appointment Date 02/27/2024 Reason 02/20/24 DX: M96.1 Referral Organization [facility] Referring Provider First Name Noe Referring Provider Last Name Radames Referring Provider Speciality Internal edicine Referred Provider [facility] Referred Provider Specialty Radiology Procedure 1 MRI LUMBAR SPINE W/O DYE (52747) Referral Priority Routine Referral Appointment Date 02/20/2024 Reason 03/01/24 DX: M96.1 M 43.16 Referral [facility] Referring Provider First Name Noe Referring Provider Last Name Radames Referring Provider Speciality Internal edicine Referred Provider [facility] Referred Provider Specialty Orthopedic S urgery Procedure 1 televisit EST INTERM EDIATE OFFICE VISIT (36461) Referral Priority Routine Referral Appointment Date 03/01/2024 Reason 03/12/24 inj M54.1 6 Referral Organization [facility] Referring Provider First Name Noe Referring Provider Last Name Radames Referring Provider Speciality Internal edicine Referred Provider Shannan Pain Mgmnt C had Referred Provider Specialty Pain Medicin e Procedure 1 NJX INTERLAMINAR LMB R/SAC (09009) General Notes ParvezMaite 024 04:09:56 PM EDT > IRASEMA Referral Priority Routine Referral Appointment Date 03/12/2024 Reason 03/12/24 DX: M54.16 03/11/24 CANCELLED p/PATIENT . JPLACE Referral Organization [facility]. Referring Provider First Name Noe Referring Provider Last Name Salvadorkhadra Referring Provider [facility] M [facility] Referred Provider Ruperto Lee Referred Provider Specialty Pain Medicin e Procedure 1 NJX INTERLAMINAR LMB R/SAC (65954) Referral Priority Routine Referral Appointment Date 03/12/2024 Reason 02/22/24 start DX: I 10 Referral [facility]. Referring Provider First Name Noe Referring Provider Last Name [facility] Referring Provider [facility] ed[facility] Referred Provider [place] Referred Provider Specialty Other Medica l Care Procedure 1 [facility]VC PHYS TRPST GRACE HLTH EA 15 MIN (G0151) Procedure 2 [facility] PT ASSIST HH/HO SPICE EA 15 MIN (G0157) Referral Priority Routine Referral Appointment Date 02/22/2024 Reason 04/02/24 DX: M54.50 32661. 72234. 17065. [address]. Referral Organization [facility]. Referring Provider First Name Noe Referring Provider Last Name [facility] Referring Provider [facility] edicine Referred Provider [facility] Referred Provider Specialty Orthopedic S urgery Referral Priority Routine Referral Appointment Date 04/02/2024 Reason 04/03/24 DX: G89.4 Z 79.891 Referral [facility]. Referring Provider First Name Noe Referring Provider Last Name Radames Referring Provider [facility] Internal edicine Referred Provider Shannan Jacinto [facility]nt, C had Referred Provider Specialty Pain Medicin e Procedure 1 Televisit EST LIMITE D OFFICE VISIT (42315) Procedure 2 televisit EST INTERM EDIATE OFFICE VISIT (30409) Procedure 3 DRUG TEST PRSMV DIR OPT OBS (58388) Referral Priority Routine Referral Appointment Date 04/03/2024 Reason 04/05/24 DX: M25.512 76002. 78223. 20961. J1100 x8. J3301 x8. Referral Organization [facility]. Referring Provider First Name Noe Referring Provider Last Name Radames Referring Provider [facility] Referred Provider [facility]enny Referred Provider Specialty Orthopedic S urgery Referral Priority Routine Referral Appointment Date 04/05/2024 Reason 04/11/24 DX: M54.16 Referral Organization [facility], [facility]. Referring Provider First Name Noe Referring Provider Last Name Guero Referring Provider Speciality Internal edicine Referred Provider Shannan [facility], C had Referred Provider Specialty Pain Medicin e Procedure 1 NJX INTERLAMINAR LMB R/SAC (04262) Referral Priority Routine Referral Appointment Date 04/11/2024 Reason 05/10/24 DX: G89.4 9 9213/4, 96992. Referral Organization [facility], [facility]. Referring Provider First Name Noe Referring Provider Last Name [facility] Referring Provider Speciality Internal [facility] Referred Provider [facility] Referred Provider Specialty Pain Medicin e Referral Priority Routine Referral Appointment Date 05/10/2024 Reason 05/27/2024 DX: M54.5 0 63746. Referral Organization [facility], [facility]. Referring Provider First Name Noe Referring Provider Last Name [facility] Referring Provider Speciality Internal [facility] Referred Provider Ruperto Lee Referred Provider Specialty Pain Medicin e Referral Priority Routine Referral Appointment Date 05/27/2024 Medications Medication SIG (Take, Route, Frequency, Duration) Notes Start Date End Date Status Eliquis 5 MG 1 tablet Orally Twic e a day; Duration: 100 days Active traZODone HCl 50 MG 1 tablet at bedtime as needed Orally Once a day; Duration: 90 days Active hydrOXYzine HCl 25 MG TAKE 1 TABLET BY M OUTH THREE TIMES A DAY NEEDED FOR ANXIETY; Duration: 90 Active Multi Vitamin - 1 tablet Orally Once a day; Duration: 30 day(s) Not-Taking Ativan 0.5 MG 1 tablet Orally twic e a day prn; Duration: 30 days 07/15/2022 Not-Taking Levothyroxine Sodium 100 MCG 1 tablet in the morning on an empty stomach Orally Once a day; Duration: 90 day(s) Active Eliquis 5 MG TAKE 1 TABLET BY [facility]OR[facility] TH TWICE A DAY; Duration: 30 Not-Taking Triamcinolone Acetonide 0.1 % 1 application Externally Twice a day; Duration: 30 days Active busPIRone HCl 7.5 MG 1 tablet Orally Twi ce a day; Duration: 90 days 04/05/2024 Active Medrol 4 MG Use as directed Oral ly as directed on package 03/05/2024 Not-Takin g PriLOSEC OTC 20 MG 1 tablet 30 minutes before morning meal Orally Once a day; Duration: 30 day(s) Active Cefdinir 300 MG as directed Orally twice a day; Duration: 7 days 10/24/2023 Not-Taking Flecainide Acetate 100 MG 1 tablet Orall y every 12 hrs; Duration: 90 days Active Ezetimibe 10 MG TAKE 1 TABLET BY [facility] EVERY DAY FOR 90 DAYS; Duration: 90 Not-Taking Cardizem 120 MG 1 tablet PO BID Active traZODone HCl 100 MG TAKE 1 TABLET BY [facility] EVERY DAY AT BEDTIME FOR 30 DAYS; Duration: 90 Active Losartan Potassium 50 MG TAKE 1 TABLET B Y MOUTH EVERY DAY FOR 90 DAYS; Duration: 90 Active Furosemide 20 MG [facility]; Duration: 90 Active Flecainide Acetate 100 MG 1 tablet Orall y every 12 hrs; Duration: 90 days Active Medrol 4 MG Use as directed Oral ly as directed on package 05/06/2024 Active Gabapentin 300 MG TAKE 1 CAPSULE BY MOUTH TWICE A DAY FOR 30 DAYS; Duration: 30 Active oxyCODONE-Acetaminophen 5-325 MG 1 tablet as needed Orally three times a day; Duration: 30 days Active traMADol HCl 50 MG 1 tablet as needed Orally every 8 hrs; Duration: 30 days 02/01/2024 Not-Taking Levothyroxine Sodium 100 MCG TAKE 1 TABLET BY MOUTH EVERY DAY IN THE MORNING ON EMPTY STOMACH FOR 90 DAYS; Duration: 90 Active Metoprolol Tartrate 25 MG 1 tablet with food Orally Twice a day Nausea 08/11/2023 Not-Taking dilTIAZem HCl ER 120 MG 1 capsule Orally Once a day Active dexAMETHasone 4 MG 1 tablet Orally ever y 8 hrs; Duration: 7 day(s) 12/29/2023 Not-Taking dilTIAZem HCl ER 120 MG TAKE 1 CAPSULE B Y MOUTH EVERY DAY FOR 90 DAYS; Duration: 90 Active Meclizine HCl 25 MG 1/2 tablet Orally every 12 hrs Not-Taking Co Q-10 400 MG as directed Orally Not-Taking Selenium 200 MCG 1 capsule Orally TWI CE A DAY Not-Taking cloNIDine HCl 0.1 MG TAKE 1 TABLET BY [facility] EVERY DAY FOR 30 DAYS; Duration: 90 Not-Taking Magnesium 250 MG 1 tablet with a meal Orally Once a day; Duration: 30 day(s) Not-Taking B-Complex - as directed Orally Not-Taking DULoxetine HCl 60 MG TAKE 1 CAPSULE BY MOUTH EVERY DAY FOR 90 DAYS; Duration: 90 days Active Methocarbamol 750 MG TAKE 1 TABLET BY [facility] EVERY 8 HOURS; Duration: 30 days Active Immunizations Vaccine Route Administration Date Status Comme nts Covid-19 Vaccine Moderna Unknown 07/24/2020 Administere d 2nd 08/2020 moderna [employer] 3rd 04/02/2021 moderna [employer] Covid-19 Vaccine Moderna Unknown 07/24/2020 Administere d Covid-19 Vaccine Moderna Unknown 08/21/2020 Administere d Influenza Vaccination Outside Provider Unknown 03/08/2021 Administered Influenza Vaccination Outside Provider Unknown 02/21/2022 Administered Moderna Bivalent Booster Unknown 03/22/2022 Administere d PCV 13 Unknown 06/27/2018 Administered Social History Tobacco Use: Social History Observation Description Date Details (start date - stop date) Former Smoker NA - NA Tobacco Use/Smoking Question Answer Notes Status: former smoker How long has it been since you last smoked? > 10 years Alcohol Screen (Audit-C) Question Answer Notes Did you have a drink contain ing alcohol in the past year? Yes How often did you have a dri nk containing alcohol in the past year? Monthly or less (1 point) How many drinks did you have on a typical day when you were drinking in the past year? 1 or 2 drinks (0 point) How often did you have 6 or more drinks on one occasion in the past year? Never (0 point) Points 1 Interpretation Negative Section Notes: former smoker quit 10 years ago former smoker quit 10 years ago former smoker quit 10 years ago former smoker quit 10 years ago former smoker quit 10 years ago former smoker quit 10 years ago former smoker quit 10 years ago former smoker quit 10 years ago Problems Problem Type SNOMED Code ICD Code Onset Dates Problem Status W/U Status Risk Notes Problem Lumbosacral spondylosis without myelopathy (58076838) Spondylosis of lumbar region without myelopathy or radiculopathy (M47.816) Active confirmed Problem Mixed hyperlipidemia (316506845) Mixed hyperlipidemia (E78.2) Active confirmed Problem Generalized anxiety disorder (70675578) Generalized anxiety disorder (F41.1) Active confirmed Problem Hypothyroidism (97949030) Other specified hypothyroidism (E03.8) Active confirmed Problem Autoimmune thyroiditis (61937520) Autoimmune thyroiditis (E06.3) Active confirmed Problem Vitamin D deficiency (17743987) Vitamin D deficiency (E55.9) Active confirmed Problem Osteoarthritis of knee (136485903) Primary osteoarthritis of left knee (M17.12) Active confirmed Problem Opioid dependence (11508710) Opioid dependence, uncomplicated (F11.20) Active confirmed Problem Primary insomnia (5809097) Primary insomnia (F51.01) Active confirmed Problem Chronic pain (26593032) Other chronic pain (G89.29) Active confirmed Problem Chronic kidney disease due to hypertension (763938022188971) Hypertensive chronic kidney disease with stage 1 through stage 4 chronic kidney disease, or unspecified chronic kidney disease (I12.9) Active confirmed Problem Typical atrial flutter (269266907) Typical atrial flutter (I48.3) Active confirmed Problem Arthritis of left knee (2524450650304613) Other specified arthritis, left knee (M13.862) Active confirmed Problem Osteoarthritis of knee (076351286) Unilateral primary osteoarthritis, left knee (M17.12) Active confirmed Problem Atrial flutter (3277127) Atrial flutter (I48.92) Active confirmed Problem Benign hypertension (13076973) Benign hypertension (I10) Active confirmed Problem Tobacco dependence in remission (838480626) Tobacco abuse, in remission (F17.201) Active confirmed Problem Morbid obesity (028251317) Morbid obesity due to excess calories (E66.01) Active confirmed Problem Arthralgia of the pelvic region and thigh (308971873) Right hip pain (M25.551) Active confirmed Problem Primary hypertension (43538639) Primary hypertension (I10) Active confirmed Problem Atrial fibrillation (26607071) Episodic atrial fibrillation (I48.0) Active confirmed Problem Lumbar post-laminectomy syndrome (219035667) Lumbar post-laminectomy syndrome (M96.1) Active confirmed Problem Lumbosacral spondylosis without myelopathy (96169444) Osteoarthritis of spine with radiculopathy, lumbar region (M47.26) Active confirmed Problem Body mass index 40+ - severely obese (394238954) BMI 50.0-59.9, adult (Z68.43) Active confirmed Problem Localized, primary osteoarthritis of the shoulder region (388900275) 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) Active confirmed Problem Atrial fibrillation (03377885) Paroxysmal a-fib (I48.0) Active confirmed Problem Atrial flutter (4121344) Atrial flutter, unspecified type (I48.92) Active confirmed Problem Cervical spondylosis without myelopathy (702205038) Osteoarthritis of spine with radiculopathy, cervical region (M47.22) Active confirmed Problem Osteoarthritis of knee (145196982) Osteoarthritis of knee (M17.9) Active confirmed Problem Peripheral venous insufficiency (60084601) Venous insufficiency of both lower extremities (I87.2) Active confirmed Problem Localized, primary osteoarthritis of the pelvic region and thigh (509843372) Primary osteoarthritis of both hips (M16.0) Active confirmed Problem Flexural atopic dermatitis (730433125) Flexural atopic dermatitis (L20.89) Active confirmed Problem Neurogenic claudication (945374761) Spinal stenosis of lumbar region with neurogenic claudication (M48.062) Active confirmed Problem Pes planus (83094363) Pes planus of left foot (M21.42) Active confirmed Problem Chronic obstructive pulmonary disease (01355365) COPD (chronic obstructive pulmonary disease) case management patient (J44.9) Active confirmed Problem Chronic kidney disease stage 3A (disorder) (239688243) Chronic kidney disease, stage 3a (N18.31) Active confirmed Problem Gastroesophageal reflux disease with esophagitis (disorder) (350594818) Gastroesophageal reflux disease with esophagitis without hemorrhage (K21.00) Active confirmed Problem Primary osteoarthritis (705391338) Primary osteoarthritis involving multiple joints (M15.9) Active confirmed Vital Signs Heart Rate 63 /min 12/29/2023 Oximetry 98 % 12/29/2023 Blood pressure diastolic 80 mm Hg 12/29/2023 Height 56 in 12/29/2023 Blood pressure systolic 132 mm Hg 12/29/2023 Weight 228 lbs 12/29/2023 BMI 51.11 kg/m2 12/29/2023 Encounters Encounter Location Date Provider Diagnosis [facility] [address] [id number] 12/29/2023 Noe Radames Other chronic pain G89.29 ; Hospital discharge follow-up Z09 ; Primary osteoarthritis involving multiple joints M15.9 ; Spondylosis of lumbar region without myelopathy or radiculopathy M47.816 ; Osteoarthritis of spine with radiculopathy, cervical region M47.22 ; Mixed hyperlipidemia E78.2 ; Primary hypertension I10 ; Other specified hypothyroidism E03.8 ; Autoimmune thyroiditis E06.3 ; Gastroesophageal reflux disease with esophagitis without hemorrhage K21.00 ; Tobacco abuse, in remission F17.201 ; Tendinitis of left rotator cuff M75.82 ; Morbid obesity due to excess calories E66.01 ; Paroxysmal a-fib I48.0 ; Typical atrial flutter I48.3 ; Generalized anxiety disorder F41.1 ; Primary insomnia F51.01 ; Hx of completed stroke Z86.73 ; Primary osteoarthritis of left knee M17.12 ; Prediabetes R73.03 ; Hypertensive chronic kidney disease with stage 1 through stage 4 chronic kidney disease, or unspecified chronic kidney disease I12.9 ; Chronic kidney disease, stage 3a N18.31 ; Venous insufficiency of both lower extremities I87.2 ; Flexural atopic dermatitis L20.89 ; Primary osteoarthritis of both hips M16.0 ; Vitamin D deficiency E55.9 ; 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 ; Opioid dependence, uncomplicated F11.20 and BMI 50.0-59.9, adult Z68.43 [facility] [address] [facility] [address] [place] [phone] 02/21/2024 Noe Crum Other chronic pain G89.29 ; Hospital discharge follow-up Z09 ; Primary osteoarthritis involving multiple joints M15.9 ; Osteoarthritis of spine with radiculopathy, cervical region M47.22 ; Mixed hyperlipidemia E78.2 ; Primary hypertension I10 ; Other specified hypothyroidism E03.8 ; Autoimmune thyroiditis E06.3 ; Gastroesophageal reflux disease with esophagitis without hemorrhage K21.00 ; Tobacco abuse, in remission F17.201 ; Tendinitis of left rotator cuff M75.82 ; Morbid obesity due to excess calories E66.01 ; Paroxysmal a-fib I48.0 ; Typical atrial flutter I48.3 ; Generalized anxiety disorder F41.1 ; Primary insomnia F51.01 ; Hx of completed stroke Z86.73 ; Primary osteoarthritis of left knee M17.12 ; Prediabetes R73.03 ; Hypertensive chronic kidney disease with stage 1 through stage 4 chronic kidney disease, or unspecified chronic kidney disease I12.9 ; Chronic kidney disease, stage 3a N18.31 ; Venous insufficiency of both lower extremities I87.2 ; Flexural atopic dermatitis L20.89 ; Primary osteoarthritis of both hips M16.0 ; Vitamin D deficiency E55.9 ; 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 ; Opioid dependence, uncomplicated F11.20 ; Osteoarthritis of spine with radiculopathy, lumbar region M47.26 and Spinal stenosis of lumbar region with neurogenic claudication M48.062 [facility] [address] [id number] 04/08/2024 Noe Crum Other chronic pain G89.29 ; Colon cancer screening Z12.11 ; Primary osteoarthritis involving multiple joints M15.9 ; Osteoarthritis of spine with radiculopathy, cervical region M47.22 ; Mixed hyperlipidemia E78.2 ; Primary hypertension I10 ; Other specified hypothyroidism E03.8 ; Autoimmune thyroiditis E06.3 ; Gastroesophageal reflux disease with esophagitis without hemorrhage K21.00 ; Tobacco abuse, in remission F17.201 ; Tendinitis of left rotator cuff M75.82 ; Morbid obesity due to excess calories E66.01 ; Paroxysmal a-fib I48.0 ; Typical atrial flutter I48.3 ; Generalized anxiety disorder F41.1 ; Primary insomnia F51.01 ; Hx of completed stroke Z86.73 ; Primary osteoarthritis of left knee M17.12 ; Prediabetes R73.03 ; Hypertensive chronic kidney disease with stage 1 through stage 4 chronic kidney disease, or unspecified chronic kidney disease I12.9 ; Chronic kidney disease, stage 3a N18.31 ; Venous insufficiency of both lower extremities I87.2 ; Flexural atopic dermatitis L20.89 ; Primary osteoarthritis of both hips M16.0 ; Vitamin D deficiency E55.9 ; 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 [address] [id number] 12/20/2023 [facility], [facility]. [address] [id number] 12/21/2023 [facility] [place]. [address], [place] [id number] 12/29/2023 Noe Gueroa [facility] [address], [place] [id number] 01/09/2024 Noe Salvadoranga [facility], [facility]. [address], [place] [id number] 01/15/2024 Noe Salvadoranga Primary insomnia F51 .01 [facility] [address], [place] [id number] 01/24/2024 Noe Gueroa [facility], [facility]. [address], [place] [id number] 01/31/2024 Noe Salvadoranga [facility], [facility]. [address] [place] [address], [place] [id number] 02/01/2024 Noe Francoanga [facility], [facility]. [address] [place] [address], [place] [id number] 02/06/2024 Noe Salvadoranga [facility], [facility]. 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 [address] [place] [address], [place] [id number] 02/14/2024 Noe Salvadoranga Other chronic pain G89.29 [facility], [facility]. [address] [place] [address], [place] [id number] 02/19/2024 Noe Salvadoranga [facility], [facility]. [address], [place] [id number] 02/19/2024 Noe Salvadoranga [facility], [facility]. [address], [place] [id number] 02/22/2024 Noe Salvadoranga [facility], [facility]. [address], [place] [id number] 02/22/2024 Noe Francoanga [facility], [facility]. [address], [place] [id number] 02/26/2024 Noe Talanga [facility]. [address], [place] [id number] 03/04/2024 Noe Talanga [facility]. [address], [place] [id number] 03/05/2024 Noe Talanga [facility]. [address], [place] [id number] 03/11/2024 Noe Talanga [facility]. [address], [place] [id number] 03/11/2024 Noe Talanga [facility]. [address], [place] [id number] 03/13/2024 Noe Talanga [facility]. [address], [place] [id number] 03/22/2024 Noe Talanga [facility]. [address], [place] [id number] 03/26/2024 Noe Talanga [facility]. [address], [place] [id number] 04/04/2024 Noe Talanga [facility]. [address], [place] [id number] 04/05/2024 Noe Talanga [facility]. [address], [place] [id number] 04/05/2024 Noe Talanga [facility]. [address], [place] [id number] 04/08/2024 Noe Talanga [facility]. [address], [place] [id number] 04/10/2024 Noe Talanga [facility]. [address], [place] [id number] 05/02/2024 Noe Talanga [facility]. [address], [place] [id number] 05/06/2024 Noe Talanga [facility], [facility]. [address] [id number] 05/30/2024 Noe Crum Primary insomnia F51 .01 and Paroxysmal a-fib I48.0 [facility], [facility]. [address] [id number] 08/09/2024 Noe Crum [facility], [facility]. [address] [id number] 11/20/2024 Noemarcus Crum [facility], [facility]. [address] [id number] 12/24/2023 Noe Crum Assessments Encounter Date Diagnosis (ICD Code) Assessment Notes Treatment Notes Treatment Clinical Notes Section Notes 12/29/2023 Hospital discharge follow-up (ICD-10 - Z09) 12/29/2023 Other chronic pain (ICD-10 - G89.29) Educated on Tylenol prn and daily stretches 01/15/2024 Primary insomnia (ICD-10 - F51.01) 02/09/2024 Lumbar post-laminectomy syndrome (ICD-10 - M96.1) 02/14/2024 Other chronic pain (ICD-10 - G89.29) 02/21/2024 Hospital discharge follow-up (ICD-10 - Z09) 02/21/2024 Other chronic pain (ICD-10 - G89.29) Educated on Tylenol prn and daily stretches 04/08/2024 Colon cancer screening (ICD-10 - Z12.11) 04/08/2024 Other chronic pain (ICD-10 - G89.29) Educated on Tylenol prn and daily stretches 05/30/2024 Primary insomnia (ICD-10 - F51.01) 05/30/2024 Paroxysmal a-fib (ICD-10 - I48.0) 04/08/2024 Primary osteoarthritis involving multiple joints (ICD-10 - M15.9) Educated on Tylenol prn and daily stretches 02/21/2024 Primary osteoarthritis involving multiple joints (ICD-10 - M15.9) Educated on Tylenol prn and daily stretches 12/29/2023 Primary osteoarthritis involving multiple joints (ICD-10 - M15.9) Educated on Tylenol prn and daily stretches 12/29/2023 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 Unable to tolerate statins or Zetia. 02/21/2024 Mixed hyperlipidemia (ICD-10 - E78.2) Educated on healthy diet, weight loss, and exercise. Unable to tolerate statins or Zetia. 12/29/2023 Osteoarthritis of spine with radiculopathy, cervical region (ICD-10 - M47.22) S/P surgery; educated on Tylenol prn and daily stretches 12/29/2023 Mixed hyperlipidemia (ICD-10 - E78.2) Educated on healthy diet, weight loss, and exercise. Unable to tolerate statins or Zetia. 02/21/2024 Primary hypertension (ICD-10 - I10) Educated on low salt diet. 04/08/2024 Primary hypertension (ICD-10 - I10) Educated on low salt diet. 04/08/2024 Other specified hypothyroidism (ICD-10 - E03.8) 12/29/2023 Primary hypertension (ICD-10 - I10) Educated on low salt diet. 02/21/2024 Other specified hypothyroidism (ICD-10 - E03.8) 02/21/2024 Autoimmune thyroiditis (ICD-10 - E06.3) 12/29/2023 Other specified hypothyroidism (ICD-10 - E03.8) 04/08/2024 Autoimmune thyroiditis (ICD-10 - E06.3) 02/21/2024 Gastroesophageal reflux disease with esophagitis without hemorrhage (ICD-10 - K21.00) Educated on acid reflux diet. 04/08/2024 Gastroesophageal reflux disease with esophagitis without hemorrhage (ICD-10 - K21.00) Educated on acid reflux diet. 12/29/2023 Autoimmune thyroiditis (ICD-10 - E06.3) 12/29/2023 Gastroesophageal reflux disease with esophagitis without hemorrhage (ICD-10 - K21.00) Educated on acid reflux diet. 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 04/08/2024 Morbid obesity due to excess calories (ICD-10 - E66.01) Educated on healthy diet, weight loss, and exercise. 02/21/2024 Paroxysmal a-fib (ICD-10 - I48.0) 04/08/2024 Paroxysmal a-fib (ICD-10 - I48.0) 12/29/2023 Morbid obesity due to excess calories (ICD-10 - E66.01) Educated on healthy diet, weight loss, and exercise. 12/29/2023 Paroxysmal a-fib (ICD-10 - I48.0) 02/21/2024 Typical atrial flutter (ICD-10 - I48.3) S/P ablation 11/202104/08/2024 Typical atrial flutter (ICD-10 - I48.3) S/P ablation 11/202104/08/2024 Generalized anxiety disorder (ICD-10 - F41.1) 02/21/2024 Generalized anxiety disorder (ICD-10 - F41.1) 12/29/2023 Typical atrial flutter (ICD-10 - I48.3) S/P ablation 11/202112/29/2023 Generalized anxiety disorder (ICD-10 - F41.1) 02/21/2024 Primary insomnia (ICD-10 - F51.01) Educated on proper sleep hygiene 04/08/2024 Primary insomnia (ICD-10 - F51.01) Educated on proper sleep hygiene 02/21/2024 Hx of completed stroke (ICD-10 - Z86.73) Educated on ASA and lifestyle modifications 04/08/2024 Hx of completed stroke (ICD-10 - Z86.73) Educated on ASA and lifestyle modifications 12/29/2023 Primary insomnia (ICD-10 - F51.01) Educated on proper sleep hygiene 12/29/2023 Hx of completed stroke (ICD-10 - Z86.73) Educated on ASA and lifestyle modifications 02/21/2024 Primary osteoarthritis of left knee (ICD-10 - M17.12) Educated on Tylenol prn and daily stretches 04/08/2024 Primary osteoarthritis of left knee (ICD-10 - M17.12) Educated on Tylenol prn and daily stretches 04/08/2024 Prediabetes (ICD-10 - R73.03) Educated on low carb diet 02/21/2024 Prediabetes (ICD-10 - R73.03) Educated on low carb diet 12/29/2023 Primary osteoarthritis of left knee (ICD-10 - M17.12) Educated on Tylenol prn and daily stretches 02/21/2024 Hypertensive chronic kidney disease with stage 1 through stage 4 chronic kidney disease, or unspecified chronic kidney disease (ICD-10 - I12.9) Maintain good BP control 12/29/2023 Prediabetes (ICD-10 - R73.03) Educated on low carb diet 04/08/2024 Hypertensive chronic kidney disease with stage 1 through stage 4 chronic kidney disease, or unspecified chronic kidney disease (ICD-10 - I12.9) Maintain good BP control 02/21/2024 Chronic kidney disease, stage 3a (ICD-10 - N18.31) Educated to stay hydrated and to avoid NSAIDs 04/08/2024 Chronic kidney disease, stage 3a (ICD-10 - N18.31) Educated to stay hydrated and to avoid NSAIDs 12/29/2023 Hypertensive chronic kidney disease with stage 1 through stage 4 chronic kidney disease, or unspecified chronic kidney disease (ICD-10 - I12.9) Maintain good BP control 12/29/2023 Chronic kidney disease, stage 3a (ICD-10 - N18.31) Educated to stay hydrated and to avoid NSAIDs 02/21/2024 Venous insufficiency of both lower extremities (ICD-10 - I87.2) Educated on compression stockings and frequent leg elevation 04/08/2024 Venous insufficiency of both lower extremities (ICD-10 - I87.2) Educated on compression stockings and frequent leg elevation 02/21/2024 Flexural atopic dermatitis (ICD-10 - L20.89) 04/08/2024 Flexural atopic dermatitis (ICD-10 - L20.89) 12/29/2023 Venous insufficiency of both lower extremities (ICD-10 - I87.2) Educated on compression stockings and frequent leg elevation 12/29/2023 Flexural atopic dermatitis (ICD-10 - L20.89) 02/21/2024 Primary osteoarthritis of both hips (ICD-10 - M16.0) Educated on Tylenol prn and daily stretches 04/08/2024 Primary osteoarthritis of both hips (ICD-10 - M16.0) Educated on Tylenol prn and daily stretches 04/08/2024 Vitamin D deficiency (ICD-10 - E55.9) Educated on OTC Vit D supplementation 12/29/2023 Primary osteoarthritis of both hips (ICD-10 - M16.0) Educated on Tylenol prn and daily stretches 02/21/2024 Vitamin D deficiency (ICD-10 - E55.9) Educated on OTC Vit D supplementation 02/21/2024 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) 2/2 statin; will monitor 12/29/2023 Vitamin D deficiency (ICD-10 - E55.9) Educated on OTC Vit D supplementation 04/08/2024 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 04/08/2024 Osteoarthritis of spine with radiculopathy, lumbar region (ICD-10 - M47.26) Educated on Tylenol prn and daily stretches; has appt with ortho to discuss surgery. 04/08/2024 Spinal stenosis of lumbar region with neurogenic claudication (ICD-10 - M48.062) Educated on Tylenol prn and daily stretches 02/21/2024 Spinal stenosis of lumbar region with neurogenic claudication (ICD-10 - M48.062) Educated on Tylenol prn and daily stretches 12/29/2023 BMI 50.0-59.9, adult (ICD-10 - Z68.43) 02/21/2024 Other Patient initiat ed consent verbally to receive this service, Patient called/emailed for virtual service given COVID-19 concerns, does not fell comfortable coming into office at this time. In compliance with CDC guidelines will offer virtual service, By engaging in virtual sevices, you understand and agree that this conversation contains your personal health information and acknowledge that I am not responsible for privacy policies., Total length of visit approximately 25 minutes and 50 percent of the encounter was spent counseling/ coordinating care., Spoke at length with patient addressing COVID-19 awareness, precautions. Went over [place] cornavirus task force guidelines. Gave pt [facility] COVID-19 HOT LINE phone number., Virtual visit real time audio/visual, pt. Dr danyell at office 04/08/2024 Other Patient initiat ed consent verbally to receive this service, Patient called/emailed for virtual service given COVID-19 concerns, does not fell comfortable coming into office at this time. In compliance with CDC guidelines will offer virtual service, By engaging in virtual sevices, you understand and agree that this conversation contains your personal health information and acknowledge that I am not responsible for privacy policies., Total length of visit approximately 25 minutes and 50 percent of the encounter was spent counseling/ coordinating care., Spoke at length with patient addressing COVID-19 awareness, precautions. Went over [place] cornavirus task force guidelines. Gave pt [facility] COVID-19 HOT LINE phone number., Virtual visit real time audio/visual, pt. homeDr at office Plan Of Treatment Pending Test Test Name Order Date X ray : Hip, right 02/02/2023 Mammogram 03/22/2023 MRI : Lumbar without contrast 02/09/2024 Occult Blood, Fecal 04/08/2024 X ray : Cervial Spine 03/14/2023 MAMMO SCR DDI BI 05/31/2022 MAMMO SCR DDI BI 11/08/2023 VL DUP VEIN SCAN LT 07/11/2022 MRI C-SPINE W/O CONTRAST 12/06/2023 CT CHEST LOW DOSE 03/22/2023 - CT LOW DOSE LUNG CA SCREENING 05/31/19 23 INJ SOLU MEDROL TO 40 MG 09/05/2022 Insurance Providers Payer Name Payer Address Payer Phone Subscriber Number Group Number Insured Name Patient Relationship to Insured Coverage Start Date Coverage End Date List B Genie Vora Self - patient is the insured Medical (General) History Medical History History ICD Code arthritis breast lump heart disease high cholesterol Hypertension optical migraines stroke thyroid problems Surgical History Surgery Date(Month/Year) ablation 2021 LT meniscectomy 2020 lumbar laminectomy fusion 2014 RTHR 2011 HYSTERECTOMY 2011 GALLBLADDER REMOVED 2011 Hospitalization History Reason Date(Month/Year) surgeries listed above
== END 2024-12-09 15:01 | disposition home or self-care (01) ==
LOC: HO.HNS 13:31
PROVIDERS: PCP Nurse Practitioner Family; Visit Provider Physician Assistant
DX: Z98.1 Arthrodesis status (principal)
CPT/HCPCS: 99024

== ENCOUNTER 2024-12-09 13:30 | Outpatient (REF) | payer MEDICARE, SELFPAY | END 2024-12-09 13:31 | disposition home or self-care (01) | LOC: HO.HOSX 13:30 | PROVIDERS: PCP Nurse Practitioner Family; Visit Provider Physician Assistant | DX: Z47.89 Encounter for other orthopedic aftercare (principal); Z98.1 Arthrodesis status; Z79.891 Long term (current) use of opiate analgesic | CPT/HCPCS: 99212 ==

== ENCOUNTER 2025-01-27 09:08 | Outpatient (REF) | payer MEDICARE, SELFPAY ==
--- OUTSIDE RECORDS SUMMARY | 2023-09-27 11:00 | XMS_ITS ---
Author Organization [employer] Address [address] [facility] [address] [place], [place] [address] Care Team Providers Care Blood Bank Laboratory Technician Name Role Phone Noe Crum DO Primary Care Provider Hernan Monae Unavailable [phone] REASON FOR VISIT ECHO review r/s APPT, [...] Active Encounters Encounter Location Date Provider Diagnosis [employer] Jessica [address] [facility] [address] [place] [address] 09/27/2023 Hernan Donaldson Episodic atrial fibrillation I48.0 [...] mild MR, mild TR, RVSP 41, mild SD Overall low cardiovascular risk for an overall [...] mild MR, mild TR, RVSP 41, mild SD Unspecified atrial flutter 10/2021 afl/avnrt ablation by dr austin azar 10/2021 echo 55-60% mild mr/tr 10/2021 stress no sig ischemia Essential (primary) hypertension cont to monitor at home Progress Notes * Genie VORADOB:[birth year] (74 yo F)Acc No.[id number]:09/27/2023 Progress Notes Patient: Genie ZIMMERMAN Provider: Bernadette Donaldson MD, [facility], [facility] :1950 A ge:73 Y S ex:Female Date:09/27/2023 Address:[address] [place] [address] [address] [place] [address] Pcp:Noe Crum DO Subjective: * Chief Complaints: [...] ablation done by Dr Austin azar at [facility] 1 06/2021 echo lvef 55% w mild MR, RVSP 40 e cg sr, qrsd 100 1 06/2021 [facility] w afib, started flecainide e cg nsr, 1st deg AVB, qrs 106 EKG: SR, HR 75, QRS 114, QTc 432 ECHO: EF 55-60%, mild MR, mild TR, RVSP 41, mild SD E cho Review: F eeling more episodes [...] with exertion, wheezing. C ardiovascular: Comments S [facility] for details. G astrointestinal: Patient denies a [...] mild MR, mild TR, RVSP 41, mild SD Clinical Notes: Overall low cardiovascular risk for [...] Electronic signature of Hernan Donaldson MD on 01/28/2025 at 10:31 AM EDT Sign off status: Pending * Provider: Bernadette Donaldson MD, [facility], [facility] Date: 0 09/27/2023 Generated for Louie junior/Tiffany/eTransmitting on: 0 01/28/2025 10:31 AM EDT History and Physical Notes * [...] ablation done by Dr Austin azar at [facility] 04/2022 echo lvef 55% w mild MR, RVSP 40 ecg sr, qrsd 100 04/2022 [facility] w afib, started flecainide ecg nsr, 1st deg AVB, qrs 106 07/06/23 EKG: SR, HR 75, QRS 114, QTc 432 06/2023 ECHO: EF 55-60%, mild MR, mild TR, RVSP 41, mild SD Echo Review: Feeling more episodes of Afib [...]
--- OUTSIDE RECORDS SUMMARY | 2023-10-05 04:30 | XMS_ITS ---
Author Organization [facility] [employer], [facility] Address [address] [place] [address] [address] [place], [place] [id number] Care Team Providers Care Stage Driver Name Role Phone Noe Crum DO Primary Care Provider Hernan Monae Unavailable [phone] REASON FOR VISIT 3m Encounters Encounter Location Date Provider Diagnosis [facility], [facility] [address] [facility] [address] [place], [place] [id number] 10/05/2023 Hernan Donaldson Plan Of Treatment No Information Progress Notes * Genie VORADOB:[birth year] (74 yo F)Acc No.[id number]:10/05/2023 Progress Notes Patient: Genie ZIMMERMAN Provider: Bernadette Donaldson MD, [facility], [facility]1950 A ge:73 Y S ex:Female Date:10/05/2023 Address:[facility] [address], [facility] Pcp:Noe Crum DO Subjective: * Chief Complaints: * 1 . 3m. * Medical History: Objective: * Vitals: Assessment: Plan: * Treatment: * Billing Information: * Visit Code: * Procedure Codes: * Electronic signature of Hernan Donaldson MD on 01/28/2025 at 10:31 AM EDT Sign off status: Pending * Provider: Bernadette Donaldson MD, [facility], [facility] Date: 0 10/05/2023 Generated for Printi ng/Faxing/eTransmitting on: 0 01/28/2025 10:31 AM EDT
--- OUTSIDE RECORDS SUMMARY | 2023-11-14 23:00 | XMS_ITS ---
Author Organization [facility] Address [facility] [place] [address] Care Team Providers Care Whizzer Operator Name Role Phone Hernan Donaldson Primary Care Provider Unavailabl e Encounters Encounter Location Date Provider Diagnosis [facility], [facility] [address] [place] [phone] 11/15/2023 Hernan Donaldson Plan Of Treatment No Information Progress Notes * THAOLAURAKEVIN PRECIADOFLACODOB:[birth year] (74 yo F)Acc No.[id number]:11/15/2023 Progress Notes Patient: SOLANGE ZIMMERMAN Provider: Bernadette Donaldson M.D :1950 A ge:73 Y S ex:Female Date:11/15/2023 Address:[address], [facility] Subjective: * Chief Complaints: * * Medical History: Objective: * Vitals: Assessment: Plan: * Treatment: * Billing Information: * Visit Code: * Procedure Codes: * Electronic signature of Hernan Donaldson MD on 01/28/2025 at 10:32 AM EDT Sign off status: Pending * Provider: Bernadette Donaldson M.D Date: 11/15/2023 Generated for Louie junior/Tiffany/Hieuitting on: 0 01/28/2025 10:32 AM EDT
--- OUTSIDE RECORDS SUMMARY | 2023-11-29 06:30 | XMS_ITS ---
Author Organization [facility] [place], [facility] Address [address] [facility] [address] [place], [place] [address] Care Team Providers Care Facilities Maintenance Technician Name Role Phone Noe Crum DO Primary Care Provider Hernan Monae Unavailable [phone] REASON FOR VISIT 7 DAY Encounters Encounter Location Date Provider Diagnosis [facility], [address] [place] [address] 11/29/2023 Hernan Donaldson Plan Of Treatment No Information Progress Notes * Genie VORADOB:[birth year] (74 yo F)Acc No.[id number]:11/29/2023 Patient: Genie ZIMMERMAN Provider: Bernadette Donaldson MD, [facility], [facility] :1950 A ge:73 Y S ex:Female Date:11/29/2023 Address:[address], [facility] Pcp:Noe Crum DO Subjective: * Chief Complaints: * 1 . 7 DAY. * Medical History: Objective: * Vitals: Assessment: Plan: * Treatment: * Billing Information: * Visit Code: * Procedure Codes: * Electronic signature of Hernan Donaldson MD on 01/28/2025 at 10:31 AM EDT Sign off status: Pending * Provider: Bernadette Donaldson MD, [facility], [facility] Date: 0 11/29/2023 Generated for Printi ng/Faxing/eTransmitting on: 0 01/28/2025 10:31 AM EDT
--- OUTSIDE RECORDS SUMMARY | 2023-12-20 04:45 | XMS_ITS ---
Author Organization [facility] [facility], [facility] Address [address] [facility] [address] [facility] [address] [place], [place] [id number] Care Team Providers Care Cabin Outfitter Name Role Phone Noe Crum DO Primary Care Provider Hernan Monae Unavailable [phone] REASON FOR VISIT EVENT MONITOR Encounters Encounter Location Date Provider Diagnosis [facility], [address] [place] [address] 12/20/2023 Hernan Donaldson Plan Of Treatment No Information Progress Notes * Genie VORADOB:[birth year] (74 yo F)Acc No.[id number]:12/20/2023 Progress Notes Patient: Genie ZIMMERMAN Provider: Bernadette Donaldson MD, [facility] :1950 A ge:73 Y S ex:Female Date:12/20/2023 Address:[facility] Kathrin Suarez, [facility] Pcp:Noe Crum DO Subjective: * Chief Complaints: * 1 . EVENT MONITOR. * Medical History: Objective: * Vitals: Assessment: Plan: * Treatment: * Billing Information: * Visit Code: * Procedure Codes: * Electronic signature of Hernan Donaldson MD on 01/28/2025 at 10:31 AM EDT Sign off status: Pending * Provider: Bernadette Donaldson MD, [facility], [facility] Date: 0 12/20/2023 Generated for Printi ng/Faxing/eTransmitting on: 0 01/28/2025 10:31 AM EDT
--- NOTE | ~2025-01-27 | XR_ITS ---
EXAMINATION: XR LUMBOSACRAL SPINE CLINICAL INFORMATION: Z98.1 - Arthrodesis status COMPARISON: July 31, 2024. TECHNIQUE: Lateral views in neutral, flexion and extension position. AP view lumbar spine. FINDINGS: Transpedicular screws placed at L3-4, bilaterally. Status post intervertebral disc spacer placement, L3-4. Radiopaque intervertebral disc spacer remains at L4-5. There is normal alignment of the vertebral bodies of L3-4 no peripheral position without motion during flexion and or extension position. Endplate sclerosis decreased intervertebral disc height and marginal osteophyte formation at L5-S1. Levoconvex curvature apex at L3. Metallic prosthesis right hip no fully included in the vagxy-ty-fuzj. XR/XR lumbar spine 4V min IMPRESSION: Status post arthrodesis, L3-4 without listhesis or instability. Status post removal transpedicular screws at L5 Electronically signed by: Micah Heller MD 01/27/2025 12:30 PM EDT
--- OUTSIDE RECORDS SUMMARY | 2025-01-28 10:28 | XMS_ITS | Encounter Summary ---
Author Organization [facility] Address [address] [place] [address] Care Team Providers Care Grey Goods Tester Name Role Phone Brandyn Pagan MD Primary Care Provider Unavaila Radha Fink NP Unavailable Unavailable Unknown Pcp, Non [facility] Primary Care Provider Unava ilable Encounter Details Date Type Department Care Team (Late st Contact Info) Description 12/02/2016 Orders Only [facility] [address] [place] [phone] Brandyn Pagan MD Social History Tobacco Use [...] Cervicalgia documented in this encounter Care Teams Grey Goods Tester Relationship Specialty Start Date End Date Brandyn Pagan MD PCP - General Internal Medicine 08/07/15 02/02/17 Radha Spangler NP PCP - Backup PCP Internal Medicine 8/22/16 9/14/17 Unknown Pcp, Non Rmg PCP - General 02/03/17 documented as of this encounter
--- OUTSIDE RECORDS SUMMARY | 2025-01-28 10:28 | XMS_ITS | Encounter Summary ---
Author Organization [facility] Address [address] [place] [address] Care Team Providers Care Respiratory Supervisor Name Role Phone Brandyn Pagan MD Primary Care Provider Unavaila Rahda Fink NP Unavailable Unavailable Unknown Pcp, Non [facility]mg Primary Care Provider Unava ilable Encounter Details Date Type Department Care Team (Late st Contact Info) Description 12/05/2016 Orders Only [facility] [address] [place] [address] Bradnyn Pagan MD Social History Tobacco Use Types [...] Cervicalgia documented in this encounter Care Teams Respiratory Supervisor Relationship Specialty Start Date End Date Brandyn Pagan MD PCP - General Internal Medicine 08/07/15 02/02/17 Radha Spangler NP PCP - Backup PCP Internal Medicine 01/11/16 02/02/17 Unknown Pcp, Non [facility] PCP - General 02/03/17 documented as of this encounter
--- OUTSIDE RECORDS SUMMARY | 2025-01-28 10:28 | XMS_ITS | Encounter Summary ---
Author Organization [facility] Address [address] [place] [address] Care Team Providers Care Revenue Field Agent Name Role Phone Brandyn Pagan MD Primary Care Provider Unavaila Radha Fink NP Unavailable Unavailable Unknown Pcp, Non [facility] Primary Care Provider Unava ilable Encounter Details Date Type Department Care Team ([facility] st Contact Info) Description 12/29/2015 Orders Only [facility] Magnetic Resonance Imaging [address] [place] [address] Radha Spangler NP Social History Tobacco Use [...] of this encounter Procedures * Due to [place] [employer] law, this organization might not be sharing [...] in this encounter Results * Due to [place] [employer] law, this organization might not be sharing negative HIV tests. * (ABNORMAL) BASIC METABOLIC PANEL WITH (GFR) (12/29/2015 10:04 AM EDT) Glucose 98 65 - 99 mg/dL [facility] Comment: {GLUCOSE {[id number]) Fasting reference interval Urea Nitrogen Blood (BUN) 22 7 - 25 mg/dL [facility] Comment:{UREA NITROGEN (BUN) {[id number]) Creatinine 1.20(H) 0.50 - 0.99 mg/dL [facility] Comment: {CREATININE {[id number]) For patients >49 years of age, the reference limit for Creatinine is approximately 13% higher for people identified as -Ecu[place]. GFR 48(L) > OR = 60 mL/min/1. 73m2 [facility] Comment:{eGFR NON-AFR. AMERI CAN {[id number]) GFR () 55(L) > OR = 60 mL/min/1. 73m2 [facility] Comment:{eGFR AMERIC AN {[id number]) BUN/Creatinine Ratio 18 6 - 22 (calc) [facility] Comment:{BUN/CREATININE RATI O {[id number]) Sodium 138 135 - 146 mmol/L [facility] Comment:{SODIUM {[id number]) Potassium 5.1 3.5 - 5.3 mmol/L [facility] Comment:{POTASSIUM {[id number]) Chloride 106 98 - 110 mmol/L [facility] Comment:{CHLORIDE {[id number]) Carbon dioxide 25 20 - 31 mmol/L [facility] Comment:{CARBON DIOXIDE {[id number]) Calcium 9.7 8.6 - 10.4 mg/dL [facility] Comment:{CALCIUM {[id number]) 12/29/2015 10:0 4 AM EDT 12/29/2015 [...] NP LABORATORY Final Result [facility] [address] [place] [address] * (ABNORMAL) LIPID PANEL WITH REFLEX TO DIRECT LDL (12/29/2015 10:04 AM EDT) Cholesterol 232(H) 125 - 200 mg/dL [facility] Comment:{CHOLESTEROL, TOTAL {[id number]) HDL Cholesterol 80 > OR = 46 mg/dL [facility] Comment:{HDL CHOLESTEROL {[id number]) Triglyceride 112 <150 mg/dL [facility] Comment:{TRIGLYCERIDES {[id number]) LDL Cholesterol 130(H) <130 mg/dL (calc) [facility] Comment: {LDL-CHOLESTEROL {[id number]) Desirable range <100 mg/dL for patients with CHD or diabetes and <70 mg/dL for diabetic patients with known heart disease. CHOL/HDL Ratio 2.9 < OR = 5.0 (calc) [facility] Comment:{CHOL/HDLC RATIO {[id number]) Cholesterol Non-HDL 152 mg/dL (calc) [facility] Comment: {NON HDL CHOLESTEROL {[id number]) Target for non-HDL cholesterol is 30 mg/dL higher than LDL cholesterol target. 12/29/2015 10:0 4 AM EDT 12/29/2015 3:11 PM EDT Narrative Resulting Agency Comment [id number] Radha Spangler DAMPENER OPERATOR LABORATORY Final Result Performing Organization Address City/[facility]/ZIP Co de Phone Number [facility] [address] [place] [address] * ALANINE AMINOTRANSFERASE (ALT), SERUM (12/29/2015 10:04 AM EDT) ALT (SGPT) 25 6 - 29 U/L [facility] Comment:{ALT {[id number]) 12/29/2015 10:0 4 AM EDT 12/29/2015 3:11 PM EDT Narrative Resulting Agency Comment [id number] Radha Spangler DAMPENER OPERATOR LAB SAME DAY RESULT Final Re sult Performing Organization Address City/[facility]/ZIP Co de Phone Number [facility] [address] [place] [address] documented in this encounter Visit Diagnoses Diagnosis Cervicodynia Cervicalgia Hyperlipidemia, unspecified hyperlipidemia type Essential hypertension with goal blood pressure less than 140/90 documented in this encounter Care Teams Revenue Field Agent Relationship Specialty Start Date End Date Brandyn Pagan MD PCP - General Internal Medicine 08/07/15 02/02/17 Radha Spangler NP PCP - Backup PCP Internal Medicine 01/11/16 02/02/17 Unknown Pcp, Non [facility] PCP - General 02/03/17 documented as of this encounter
--- OUTSIDE RECORDS SUMMARY | 2025-01-28 10:28 | XMS_ITS | Patient Health Record ---
Author Organization [facility] Office Address [address] [place] [address] Care Team Providers Care Irrigator Sprinkling System Name Role Phone Gaby Gilmore Primary Care Provider Elva giraldoMarcelino Galindoeed Unavailable [phone] Allergies No Known Allergies Reason For Referral No Information Medications Medication SIG (Take, Route, Frequency, Duration) Notes Start Date End Date Status HYDROcodone-Acetamin ophen 5-325 MG 1 (one) Oral two times daily, as needed For NON ACUTE PAIN, [place] pamphlet given, [employer] checked 04/22/2021 Active Problems Problem Type SNOMED Code ICD Code Onset Dates Problem Status W/U Status Risk Notes Problem Lumbosacral spondylosis without myelopathy (disorder) (75795187) Spondylosis without myelopathy or radiculopathy, lumbosacral region (M47.817) Active confirmed Problem Title:SPONDYL OSIS OF LUMBOSACRAL REGION Problem Lumbar radiculopathy (672591864) Radiculopathy, lumbar region (M54.16) Active confirmed Comment:Acute complicated, Problem Post-laminectom y syndrome (96924712) Postlaminectomy syndrome, not elsewhere classified (M96.1) Active confirmed Problem Title:POSTLAM INECTOMY SYNDROME OF CERVICAL REGION Problem Neurogenic claudication (366901814) Spinal stenosis, lumbar region with neurogenic claudication [...]
--- OUTSIDE RECORDS SUMMARY | 2025-01-28 10:29 | XMS_ITS | Encounter Summary ---
Author Organization [facility] Address [address] [place] [address] Care Team Providers Care Printing Grey Cloth Tender Name Role Phone Brandyn Pagan MD Primary Care Provider Radha Cuevas NP Unavailable Unavailable Unknown Pcp, Non [facility]mg Primary Care Provider Unava ilable Encounter Details Date Type Department Care Team (Late st Contact Info) Description 01/12/2017 Orders Only [facility] [address] [place] [address] Brandyn Pagan MD Social History Tobacco Use [...] this encounter Procedures * Due to [place] [employer] law, this organization might not be sharing negative HIV tests. Procedure Name Priority Date/Time Associated Diagnosis Comments URINALYSIS, DIP ONLY STAT (All results called to provider) 01/12/2017 12:59 PM EDT Frequency of urination CULTURE, URINE, ROUTINE Routine 01/12/2017 12:22 PM EDT Frequency of urination URINALYSIS, MICROSCOPIC Routine 01/12/2017 12:22 PM EDT Frequency of urination documented in this encounter Results * Due to [place] [employer] law, this organization might not be sharing negative HIV tests. * URINALYSIS, DIP ONLY ( SITE STAT ONLY) (01/12/2017 12:59 PM EDT) COLOR (URINE) YELLOW [facility] (CLIA# [id number]) APPEARANCE (URINE) CLEAR Clear [facility] (CLIA# [id number]) SPECIFIC GRAVITY 1.005 1.001 - 1.035 [facility] (CLIA# [id number]) PH (URINE) 7.0 5.0 - 8.0 [facility] (CLIA# [id number]) PROTEIN (URINE) NEG Neg [facility] (CLIA# [id number]) GLUCOSE (URINE) NEG Neg [facility] (CLIA# [id number]) Ketones (Urine) NEG Neg [facility] (CLIA# [id number]) BILIRUBIN (URINE) NEG Neg [facility] (CLIA# [id number]) BLOOD (URINE) NEG Neg [facility] (CLIA# [id number]) Leukocyte esterase (Urine) NEG Neg [facility] (CLIA# [id number]) NITRITE (URINE) NEG Neg [facility] (CLIA# [id number]) Urine specimen obtained by clean catch procedure (specimen) 01/12/2017 12:59 PM EDT Narrative [facility] (CLIA# [id number]) - 01/12/2017 1:00 PM EDT Micro and culture already ordered per provider. Brandyn Pagan MD LAB SAME DAY RESULT Final Resul t Performing Organization Address [facility] Co de Phone Number [facility] (CLIA# [id number]) [address] [place] [address] * CULTURE, URINE, ROUTINE (01/12/2017 12:22 PM EDT) Bacteria culture (Urine) SEE NOTE [facility] Comment: CULTURE, URINE, ROUTINE MICRO NUMBER: [id number] TEST STATUS: FINAL SPECIMEN SOURCE: URINE SPECIMEN QUALITY: ADEQUATE RESULT: No Growth 01/12/2017 12:2 2 PM EDT 01/12/2017 10:29 PM EDT Narrative Resulting Agency Comment [id number] Brandyn Pagan MD LABORATORY Final Result Performing Organization Address City/[facility]/ZIP Co de Phone Number [facility] [address] [place] [address] * URINALYSIS, MICROSCOPIC (01/12/2017 12:22 PM EDT) [...] 10:29 PM EDT Narrative Resulting Agency Comment [id number] Brandyn Pagan MD LAB SAME DAY RESULT Final Resul t [facility] [address] [place] [address] documented in this encounter Visit Diagnoses Diagnosis Frequency of urination Urinary frequency documented in this encounter Care Teams Printing Grey Cloth Tender Relationship Specialty Start Date End Date Brandyn Pagan MD PCP - General Internal Medicine 08/07/15 02/02/17 Radha Spangler NP PCP - Backup PCP Internal Medicine 01/11/16 02/02/17 Unknown Pcp, Non [facility] PCP - General 02/03/17 documented as of this encounter
--- OUTSIDE RECORDS SUMMARY | 2025-01-28 10:29 | XMS_ITS | Encounter Summary ---
Author Organization [facility] Address [address] [place] [address] Care Team Providers Care Aerospace Mechanic Name Role Phone Brandyn Pagan MD Primary Care Provider Unavaila Radha Fink NP Unavailable Unavailable Unknown Pcp, Non Rmg Primary Care Provider Unava ilable Encounter Details Date Type Department Care Team (Late st Contact Info) Description 01/08/2016 Orders Only [facility] [address] [place] [phone] Brandyn Pagan MD Social History Tobacco Use [...] on filedocumented in this encounter Care Teams Aerospace Mechanic Relationship Specialty Start Date End Date Brandyn Pagan MD PCP - General Internal Medicine 08/07/15 02/02/17 Radha Spangler NP PCP - Backup PCP Internal Medicine 01/11/16 02/02/17 Unknown Pcp, Non [facility]mg PCP - General 02/03/17 documented as of this encounter
--- OUTSIDE RECORDS SUMMARY | 2025-01-28 10:29 | XMS_ITS | Encounter Summary ---
Author Organization [facility] Address [address] [place] [address] Care Team Providers Care Patient Access Representative Name Role Phone Brandyn Pagan MD Primary Care Provider Unavaila Radha Fink NP Unavailable Unavailable Unknown Pcp, Non [facility]mg Primary Care Provider Unava ilable Encounter Details Date Type Department Care Team (Late st Contact Info) Description 01/28/2016 Orders Only [facility] [address] [place] [address] Radha Spangler, MEY Social History Tobacco Use [...] this encounter Procedures * Due to [place] [employer] law, this organization might not be sharing negative HIV tests. Procedure Name Priority Date/Time Associated Diagnosis Comments BASIC METABOLIC PANEL WITH (GFR) Routine 01/28/2016 11:41 AM EDT Elevated serum creatinine documented in this encounter Results * Due to [place] [employer] law, this organization might not be sharing negative HIV tests. * (ABNORMAL) BASIC METABOLIC PANEL WITH (GFR) (01/28/2016 11:41 AM EDT) Glucose 95 65 - 99 mg/dL [facility] Comment: {GLUCOSE {[id number]) Fasting reference interval Urea Nitrogen Blood (BUN) 28(H) 7 - 25 mg/dL [facility] Comment:{UREA NITROGEN (BUN) {[id number]) Creatinine 1.12(H) 0.50 - 0.99 mg/dL [facility] Comment: {CREATININE {[id number]) For patients >49 years of age, the reference limit for Creatinine is approximately 13% higher for people identified as -[place]. GFR 52(L) > OR = 60 mL/min/1. 73m2 [facility] Comment:{eGFR NON-AFR. AMERI CAN {[id number]) GFR () 60 > OR = 60 mL/min/1. 73m2 [facility] Comment:{eGFR AMERIC AN {[id number]) BUN/Creatinine Ratio 25(H) 6 - 22 (calc) [facility] Comment:{BUN/CREATININE RATI O {[id number]) Sodium 140 135 - 146 mmol/L [facility] Comment:{SODIUM {[id number]) Potassium 4.8 3.5 - 5.3 mmol/L [facility] Comment:{POTASSIUM {[id number]) Chloride 106 98 - 110 mmol/L [facility] Comment:{CHLORIDE {[id number]) Carbon dioxide 30 20 - 31 mmol/L [facility] Comment:{CARBON DIOXIDE {[id number]) Calcium 9.5 8.6 - 10.4 mg/dL [facility] Comment:{CALCIUM {[id number]) 01/28/2016 11:4 1 AM EDT 01/28/2016 [...] needs for GFR calculation. Resulting Agency Comment [id number] Radha Spangler NP LABORATORY Final Result [facility] [address] [place] [address] documented in this encounter Visit Diagnoses Diagnosis Elevated serum creatinine Other nonspecific findings on examination of blood documented in this encounter Care Teams Patient Access Representative Relationship Specialty Start Date End Date Brandyn Pagan MD PCP - General Internal Medicine 08/07/15 02/02/17 Radha Spangler NP PCP - Backup PCP Internal Medicine 01/11/16 02/02/17 Unknown Pcp, Non Rmg PCP - General 02/03/17 documented as of this encounter
--- OUTSIDE RECORDS SUMMARY | 2025-01-28 10:29 | XMS_ITS | Encounter Summary ---
Author Organization [facility] Address [address] [place] [address] Care Team Providers Care Digital Sales Representative Name Role Phone Brandyn Pagan MD Primary Care Provider Unavaila Radha Fink NP Unavailable Unavailable Unknown Pcp, Non [facility]mg Primary Care Provider Unava ilable Encounter Details Date Type Department Care Team (Late st Contact Info) Description 01/04/2017 Orders Only [facility] [address] [place] [address] Radha Spangler NP Social History Tobacco Use [...] 017 9:26 AM EDT) No Eineberg, Radha, PRINTING AND STAMPING SUPERVISOR documented as of this encounter Procedures * Due to [place] [employer] law, this organization might not be [...] this encounter Results * Due to [place] [employer] law, this organization might not be sharing negative HIV tests. * (ABNORMAL) BASIC METABOLIC PANEL WITH (GFR) (01/04/2017 1:11 PM EDT) Glucose 97 65 - 99 mg/dL [facility] Comment:Fasting reference in [facility] Urea Nitrogen Blood (BUN) 27(H) 7 - 25 mg/dL [facility] Creatinine 1.18(H) 0.50 - 0.99 mg/dL [facility] Comment: For patients >49 years of age, the reference limit for Creatinine is approximately 13% higher for people identified as -Senegalese. GFR 48(L) > OR = 60 mL/min/1. [...] needs for GFR calculation. Resulting Agency Comment [id number] Radha Spangler NP LABORATORY Final Result Performing Organization Address [facility] Co de Phone Number [facility] [address] [place] [address] * HEPATIC FUNCTION PANEL (ALT,AST,ALK PH,BILI'S,TP,ALB) (01/04/2017 [...] 10:19 PM EDT Narrative Resulting Agency Comment [id number] Radha Spangler NP LABORATORY Final Result Performing Organization Address [facility] Co de Phone Number [facility] [address] [place] [address] * (ABNORMAL) HEMOGLOBIN A1C (01/04/2017 1:11 PM [...] 10:19 PM EDT Narrative Resulting Agency Comment [id number] Radha Spangler NP LABORATORY Final Result Performing Organization Address [facility] de Phone Number [facility] [address] [place] [address] * (ABNORMAL) LIPID PANEL WITH REFLEX TO [...] 10:19 PM EDT Narrative Resulting Agency Comment [id number] Radha Spangler NP LABORATORY Final Result Performing Organization Address [facility] de Phone Number [facility] [address] [place] [address] * (ABNORMAL) CBC INCLUDES DIFFERENTIAL AND PLATELET [...] 10:19 PM EDT Narrative Resulting Agency Comment [id number] Radha Spangler NP LAB SAME DAY RESULT Final Re sult [facility] [address] [place] [address] documented in this encounter Visit Diagnoses Diagnosis Nail discoloration Other specified disease of nail Transaminitis Nonspecific elevation of levels of transaminase or lactic acid dehydrogenase (LDH) Benign essential HTN Essential hypertension, benign CKD (chronic kidney disease), stage III (HCC) Chronic kidney disease, Stage III (moderate) documented in this encounter Care Teams Digital Sales Representative Relationship Specialty Start Date End Date Brandyn Pagan MD PCP - General Internal Medicine 08/07/15 02/02/17 Radha Spangler NP PCP - Backup PCP Internal Medicine 01/11/16 02/02/17 Unknown Pcp, Non Rmg PCP - General 02/03/17 documented as of this encounter
--- OUTSIDE RECORDS SUMMARY | 2025-01-28 10:29 | XMS_ITS | Encounter Summary ---
Author Organization [facility] Address [address] [place] [address] Care Team Providers Care Sales Associate Fishing Name Role Phone Brandyn Pagan MD Primary Care Provider Radha Cuevas NP Unavailable Unavailable Unknown Pcp, Non [facility] Primary Care Provider Unava ilable Reason for Visit * Reason Onset Date Comments Labs/orders 12/28/2015 Creatinine Order for Radiology with Contrast Encounter Details Date Type Department Care Team ([facility] st Contact Info) Description 12/28/2015 Telephone [address] [facility] Magnetic Resonance Imaging [address] [place] [address] Radha Spangler NP Labs/orders (Creatinine [...] Cervicalgia documented in this encounter Care Teams Sales Associate Fishing Relationship Specialty Start Date End Date Brandyn Pagan MD PCP - General Internal Medicine 08/07/15 02/02/17 Radha Spangler NP PCP - Backup PCP Internal Medicine 01/11/16 02/02/17 Unknown Pcp, Non Rmg PCP - General 02/03/17 documented as of this encounter
--- OUTSIDE RECORDS SUMMARY | 2025-01-28 10:30 | XMS_ITS | Encounter Summary ---
Author Organization [facility] Address [address] [place] [address] Care Team Providers Care Customer Technical Services Manager Name Role Phone Brandyn Pagan MD Primary Care Provider Radha Cuevas NP Unavailable Unavailable Unknown Pcp, Non [facility] Primary Care Provider Unava ilable Encounter Details Date Type Department Care Team (Late st Contact Info) Description 06/21/2016 Orders Only [facility] [address] [place] [address] Brandyn Pagan MD Social History Tobacco Use [...] of this encounter Procedures * Due to [place] WorkMe[employer] law, this organization might not be sharing negative HIV tests. Procedure Name Priority Date/Time Associated Diagnosis Comments URINALYSIS, DIP ONLY STAT (All results called to provider) 06/21/2016 11:17 AM EST Frequent urination CULTURE, URINE, ROUTINE Routine 06/21/2016 10:35 AM EST Frequent urination URINALYSIS, MICROSCOPIC Routine 06/21/2016 10:35 AM EST Frequent urination documented in this encounter Results * Due to [place] WorkMeIn law, this organization might not be sharing negative HIV tests. * URINALYSIS, DIP ONLY ( SITE STAT ONLY) (06/21/2016 11:17 AM EST) COLOR (URINE) YELLOW [facility] (CLIA# [id number]) APPEARANCE (URINE) CLEAR Clear [facility] (CLIA# [id number]) SPECIFIC GRAVITY 1.020 1.001 - 1.035 [facility] (CLIA# [id number]) PH (URINE) 6.0 5.0 - 8.0 [facility] (CLIA# [id number]) PROTEIN (URINE) NEGATIVE Neg [facility] (CLIA# [id number]) GLUCOSE (URINE) NEGATIVE Neg [facility] (CLIA# [id number]) Ketones (Urine) NEGATIVE Neg [facility] (CLIA# [id number]) BILIRUBIN (URINE) NEGATIVE Neg [facility] (CLIA# [id number]) BLOOD (URINE) NEGATIVE Neg [facility] (CLIA# [id number]) Leukocyte esterase (Urine) NEGATIVE Neg [facility] (CLIA# [id number]) NITRITE (URINE) NEGATIVE Neg [facility] (CLIA# [id number]) Urine specimen (specimen) 06/21/2016 11:17 AM EST Narrative [facility] (CLIA# [id number]) - 06/21/2016 11:17 AM EST Micro and culture already ordered by provider. Brandyn Pagan MD LAB SAME DAY RESULT Final Resul t [facility] (CLIA# [id number]) [address] [place] [address] * CULTURE, URINE, ROUTINE (06/21/2016 10:35 AM EST) Bacteria culture (Urine) SEE NOTE [facility] Comment: CULTURE, URINE, ROUTINE MICRO NUMBER: [id number] TEST STATUS: FINAL SPECIMEN SOURCE: URINE SPECIMEN QUALITY: ADEQUATE RESULT: Multiple organisms present, each less than 10,000 CFU/mL. These organisms, commonly found on external and internal genitalia, are considered to be colonizers. No further testing performed. 06/21/2016 10:3 5 AM EST 06/21/2016 4:50 PM EST Narrative Resulting Agency Comment [id number] Brandyn Pagan MD LABORATORY Final Result [facility] [address] [place] [address] * URINALYSIS, MICROSCOPIC (06/21/2016 10:35 AM EST) [...] 4:50 PM EST Narrative Resulting Agency Comment [id number] us Brandyn Pagan MD LAB SAME DAY RESULT Final Resul t Performing Organization Address City/State/[facility] Co de Phone Number [facility] [address] [place] [address] documented in this encounter Visit Diagnoses Diagnosis Frequent urination Urinary frequency documented in this encounter Care Teams Customer Technical Services Manager Relationship Specialty Start Date End Date Brandyn Pagan MD PCP - General Internal Medicine 08/07/15 02/02/17 Radha Spangler NP PCP - Backup PCP Internal Medicine 01/11/16 02/02/17 Unknown Pcp, Non [facility] PCP - General 02/03/17 documented as of this encounter
--- OUTSIDE RECORDS SUMMARY | 2025-01-28 10:30 | XMS_ITS | Patient Health Record ---
Author Organization [facility] [facility] Address [address] [id number] Care Team Providers Care Operations And Maintenance Technican Name Role Phone oNe Crum DO Primary Care Provider Hernan Monae Unavailable [phone] Allergies Allergen (clinical drug ingredient) Drug/Non Drug Allergy documented on EMR Reaction Allergy Type Onset Date Status gabapentin Gabapentin HTN Drug Allergy Activ e Substance with 1-bezvbgw-3-methylg lutaryl-coenzyme A reductase inhibitor mechanism of action [...] Status W/U Status Risk Notes Problem Hypothyroidism (57999733) Hypothyroidism, unspecified (E03.9) Active confirmed Problem Mixed hyperlipidemia (827549326) Mixed hyperlipidemia (E78.2) Active confirmed Problem Essential hypertension (87148053) Essential (primary) hypertension (I10) Active confirmed Problem Atrial flutter (0272021) Unspecified atrial flutter (I48.92) Active confirmed Problem Atrial fibrillation (69098056) Episodic atrial fibrillation (I48.0) Active confirmed Problem Preoperative cardiovascular examination (518921382) Pre-procedural cardiovascular examination (Z01.810) Active confirmed Plan Of Treatment No Information Insurance Providers Payer Name Payer Address Payer Phone Subscriber Number Group Number Insured Name Patient Relationship to Insured Coverage Start Date Coverage End Date [employer] [address] [address] [place], [place] [id number] [phone] [id number] Genie Vora Self - patient is the insured
--- OUTSIDE RECORDS SUMMARY | 2025-01-28 10:30 | XMS_ITS | Encounter Summary ---
Author Organization [facility] Address [address] [place] [address] Care Team Providers Care On Site Services Specialist Name Role Phone Brandyn Pagan MD Primary Care Provider Unavaila Radha Fink NP Unavailable Unavailable Unknown Pcp, Non [facility]mg Primary Care Provider Unava ilable Encounter Details Date Type Department Care Team (Late st Contact Info) Description 06/09/2016 Orders Only [facility] [address] [place] [address] Radha Spangler NP Social History Tobacco Use [...] this encounter Procedures * Due to [place] state law, [...] approximately 13% higher for people identified as -Angolan. GFR 42(L) > OR = 60 mL/min/1. [...] needs for GFR calculation. Resulting Agency Comment [id number] us Radha Spangler NP LABORATORY Final Result Performing Organization Address [facility] Co de Phone Number [facility] [address] [place] [address] * ALANINE AMINOTRANSFERASE (ALT), SERUM (06/09/2016 11:23 AM EST) ALT (SGPT) 25 6 - 29 U/L [facility] 06/09/2016 11:2 3 AM EST 06/09/2016 4:58 PM EST Narrative Resulting Agency Comment [id number] Radha Spangler NP LAB SAME DAY RESULT Final Re sult Performing Organization Address [facility] de Phone Number [facility] [address] [place] [address] * (ABNORMAL) LIPID PANEL WITH REFLEX TO [...] 4:58 PM EST Narrative Resulting Agency Comment [id number] us Radha Spangler NP LABORATORY Final Result Performing Organization Address [facility] Co de Phone Number [facility] [address] [place] [address] documented in this encounter Visit Diagnoses Diagnosis Hyperlipidemia, unspecified hyperlipidemia type Essential hypertension with goal blood pressure less than 140/90 documented in this encounter Care Teams On Site Services Specialist Relationship Specialty Start Date End Date Brandyn Pagan MD PCP - General Internal Medicine 08/07/15 02/02/17 Radha Spangler NP PCP - Backup PCP Internal Medicine 01/11/16 02/02/17 Unknown Pcp, Non [facility] PCP - General 02/03/17 documented as of this encounter
--- OUTSIDE RECORDS SUMMARY | 2025-01-28 10:30 | XMS_ITS | Clinical Summary ---
Author Organization [facility] Address [address] [place] [address] Phone Care Team Providers Care Clay Artisan Name Role Phone Magy Sawyer SPECIAL EDUCATION PARA PROFESSIONAL Primary Care Provider Allergies Active Allergy Reactions Criticality Noted Date Comments Lansoprazole GI Upset Medium 10/02/2024 Jokcsva-Bvb-Lwp Reductase Inhibitors Myalgia,Other (See Comments) High 12/26/2015 [...] however patient is planning on moving to [place] in the next few weeks. She does [...] (when compared with previous ct scan from [facility], but NEW lung nodule R middle lobe 2 mm. Will f/u with screen CT in 1 year ADD (attention deficit disorder) 11/02/2015 Essential hypertension with goal blood pressure less than 140/90 11/02/2015 Flat foot (pes planus) (acquired), left foot Former smoker 11/02/2015 History of gastric ulcer 11/02/2015 History of hysterectomy 11/02/2015 Overview (10/02/2024): Patient being followed by Dr. Irene Christensen in [place]. Confirmed with their office that she is status post total hysterectomy in 1999 for reasons of pelvic organ prolapse. They have elected to do Pap smears anyway, as recently as 06/05/2014 which was negative. Major depression in partial remission 11/02/2015 Overview (10/02/2024): Refer to PCP cpe dated 01/11/16 Psych: Reports anxiety and depression are stable. Sees Dr. Alvarado psychiatrist, in [place]. He prescribes lamotrigine, duloxetine, tramadol, Adderall. Psoriasis [...] Visit [facility] [address] [facility] [phone] 06/02/2025 10:00 AM EST Follow-Up [facility] [place] [address] Mala Hernandez NP [address] [facility] [address] [place] [address] [email or web address] Health Maintenance Due Date Last Done Comments [...] topic Medical Devices Not on file Insurance [facility] DUAL MEDICARE REPLACEMENT [place] MED[place]AC[place] Care Teams Clay Artisan Relationship Specialty Start Date End Date Magy Sawyer NP [address] [facility] [address] [place] [address] PCP - General Nurse Practitioner 07/09/24 Additional Source Comments The information contained in this document represents components of the legal health record. It is not the complete legal health record.[facility]
--- OUTSIDE RECORDS SUMMARY | 2025-01-28 10:30 | XMS_ITS | Encounter Summary ---
Author Organization [facility] Address [address] [place] [address] Care Team Providers Care It Trainee Name Role Phone Brandyn Pagan MD Primary Care Provider UnavailRadha Mas NP Unavailable Unavailable Unknown Pcp, Non [facility] Primary Care Provider Unava ilable Encounter Details Date Type Department Care Team (Late st Contact Info) Description 10/24/2016 Orders Only [address] [address] Concha Bustillo PA [address] [place] [address] Social History Tobacco Use Types Packs/Day Years [...] this encounter Procedures * Due to [place] EPS law, this organization might not be sharing negative HIV tests. Procedure Name Priority Date/Time Associated Diagnosis Comments EKG-USE ONLY IN [facility]/OCC MED/CARDIO Routine 10/21/2016 4:41 PM EDT Acute pain of right shoulder documented in this encounter Results * Due to [place] EPS law, this organization might not be sharing [...] shoulder documented in this encounter Care Teams It Trainee Relationship Specialty Start Date End Date Brandyn Pagan MD PCP - General Internal Medicine 08/07/15 02/02/17 Radha Spangler NP PCP - Backup PCP Internal Medicine 01/11/16 02/02/17 Unknown Pcp, Non [facility] PCP - General 02/03/17 documented as of this encounter
--- OUTSIDE RECORDS SUMMARY | 2025-01-28 10:30 | XMS_ITS | Encounter Summary ---
Author Organization [facility] Address [address] [place] [address] Care Team Providers Care Factory Engineer Name Role Phone Brandyn Pagan MD Primary Care Provider Unavaila Radha Fink NP Unavailable Unavailable Unknown Pcp, Non [facility] Primary Care Provider Unava ilable Encounter Details Date Type Department Care Team (Late st Contact Info) Description 04/08/2016 Orders Only [facility] [address] [place] [address] Radha Spangler NP Social History Tobacco Use [...] this encounter Procedures * Due to [place] [employer] law, this organization might not be sharing [...] this encounter Results * Due to [place] [employer] law, this organization might not be sharing negative HIV tests. * (ABNORMAL) CULTURE, URINE, ROUTINE (04/08/2016 12:17 PM EST) Bacteria culture (Urine) SEE NOTE(A) [facility] Comment: {CULTURE, URINE, ROUTINE {[id number]) CULTURE, URINE, ROUTINE MICRO NUMBER: [id number] TEST STATUS: FINAL SPECIMEN SOURCE: URINE SPECIMEN [...] 7:00 PM EST Narrative Resulting Agency Comment [id number] Radha Spangler NP LABORATORY Final Result [facility] [address] [place] [address] * (ABNORMAL) URINALYSIS, COMPLETE INCLUDES DIPSTICK AND MICROSCOPIC (04/08/2016 12:17 PM EST) Color (Urine) YELLOW YELLOW [facility] Comment:{COLOR {[id number]) Appearance (Urine) CLEAR CLEAR [facility] Comment:{APPEARANCE {[id number]) Specific gravity (Urine) 1.019 1.001 - 1.035 [facility] Comment:{SPECIFIC GRAVITY {[id number]) pH (Urine) 6.5 5.0 - 8.0 [facility] Comment:{PH {[id number]) Glucose (Urine) NEGATIVE NEGATIVE [facility] Comment:{GLUCOSE {[id number]) Bilirubin (Urine) NEGATIVE NEGATIVE [facility] Comment:{BILIRUBIN {[id number]) Ketones (Urine) NEGATIVE NEGATIVE [facility] Comment:{KETONES {[id number]) Hemoglobin (Urine) NEGATIVE NEGATIVE [facility] Comment:{OCCULT BLOOD {[id number]) Protein (Urine) NEGATIVE NEGATIVE [facility] Comment:{PROTEIN {[id number]) Nitrite (Urine) NEGATIVE NEGATIVE [facility] Comment:{NITRITE {[id number]) Leukocyte esterase (Urine) TRACE(A) NEGATIVE [facility] Comment:{LEUKOCYTE ESTERASE {[id number]) WBC (Urine) 0-5 < OR = 5 /HPF [facility] Comment:{WBC {[id number]) RBC (Urine Sed) NONE SEEN < OR = 2 /HPF [facility] Comment:{RBC {[id number]) Epithelial cells.squamous (Urine sed) 0-5 < OR = 5 /HPF [facility] Comment:{SQUAMOUS EPITHELIAL CELLS {[id number]) Bacteria (Urine) NONE SEEN NONE SEEN /HPF [facility] Comment:{BACTERIA {[id number]) Hyaline casts (Urine sed) NONE SEEN NONE SEEN /LPF [facility] Comment:{HYALINE CAST {[id number]) 04/08/2016 12:1 7 PM EST 04/08/2016 7:00 PM EST Narrative Resulting Agency Comment [id number] Radha Spangler IT SENIOR ANALYST LAB SAME DAY RESULT Final Re sult [facility] [address] [place] [address] * HEPATIC FUNCTION PANEL (ALT,AST,ALK PH,BILI'S,TP,ALB) (04/08/2016 12:17 PM EST) Protein Total (Serum) 6.1 6.1 - 8.1 g/dL [facility] Comment:{PROTEIN, TOTAL {[id number]) Albumin 4.2 3.6 - 5.1 g/dL [facility] Comment:{ALBUMIN {[id number]) Globulin 1.9 1.9 - 3.7 g/dL (calc) [facility] Comment:{GLOBULIN {[id number]) Albumin/Globulin 2.2 1.0 - 2.5 (calc) [facility] Comment:{ALBUMIN/GLOBULIN RA LANA {[id number]) Bilirubin Total 0.3 0.2 - 1.2 mg/dL [facility] Comment:{BILIRUBIN, TOTAL {[id number]) Bilirubin Direct 0.1 < OR = 0.2 mg/dL [facility] Comment:{BILIRUBIN, DIRECT { [id number]) Bilirubin Indirect 0.2 0.2 - 1.2 mg/dL (calc) [facility] Comment:{BILIRUBIN, INDIRECT {[id number]) Alkaline phosphatase 111 33 - 130 U/L [facility] Comment:{ALKALINE PHOSPHATAS E {[id number]) AST (SGOT) 21 10 - 35 U/L [facility] Comment:{AST {[id number]) ALT (SGPT) 22 6 - 29 U/L [facility] Comment:{ALT {[id number]) 04/08/2016 12:1 7 PM EST 04/08/2016 7:00 PM EST Narrative Resulting Agency Comment [id number] Rahda Spangler NP LABORATORY Final Result Performing Organization Address City/[facility]/ZIP Co de Phone Number [facility] [address] [place] [address] * CREATINE KINASE (CK), SERUM (04/08/2016 12:17 PM EST) CPK 133 29 - 143 U/L [facility] Comment:{CREATINE KINASE, TO KENZIE {[id number]) 04/08/2016 12:1 7 PM EST 04/08/2016 7:00 PM EST Narrative Resulting Agency Comment [id number] Radha Spangler IT SENIOR ANALYST LAB SAME DAY RESULT Final Re sult Performing Organization Address City/[facility]/ZIP Co de Phone Number [facility] [address] [place] [address] * (ABNORMAL) BASIC METABOLIC PANEL WITH (GFR) (04/08/2016 12:17 PM EST) Glucose 101(H) 65 - 99 mg/dL [facility] Comment: {GLUCOSE {[id number]) Fasting reference interval Urea Nitrogen Blood (BUN) 37(H) 7 - 25 mg/dL [facility] Comment:{UREA NITROGEN (BUN) {[id number]) Creatinine 1.13(H) 0.50 - 0.99 mg/dL [facility] Comment: {CREATININE {[id number]) For patients >49 years of age, the reference limit for Creatinine is approximately 13% higher for people identified as -Citizen [place]. GFR 51(L) > OR = 60 mL/min/1. 73m2 [facility] Comment:{eGFR NON-AFR. AMERI CAN {[id number]) GFR () 59(L) > OR = 60 mL/min/1. 73m2 [facility] Comment:{eGFR AMERIC AN {[id number]) BUN/Creatinine Ratio 33(H) 6 - 22 (calc) [facility] Comment:{BUN/CREATININE RATI O {[id number]) Sodium 139 135 - 146 mmol/L [facility] Comment:{SODIUM {[id number]) Potassium 5.1 3.5 - 5.3 mmol/L [facility] Comment:{POTASSIUM {[id number]) Chloride 105 98 - 110 mmol/L [facility] Comment:{CHLORIDE {[id number]) Carbon dioxide 25 20 - 31 mmol/L [facility] Comment:{CARBON DIOXIDE {[id number]) Calcium 9.4 8.6 - 10.4 mg/dL [facility] Comment:{CALCIUM {[id number]) 04/08/2016 12:1 7 PM EST 04/08/2016 [...] needs for GFR calculation. Resulting Agency Comment [id number] us Radha Spangler NP LABORATORY Final Result [facility] [address] [place] [address] documented in this encounter Visit Diagnoses Diagnosis [...] organs documented in this encounter Care Teams Factory Engineer Relationship Specialty Start Date End Date Brandyn Pagan MD PCP - General Internal Medicine 08/07/15 02/02/17 Radha Spangler NP PCP - Backup PCP Internal Medicine 01/11/16 02/02/17 Unknown Pcp, Non [facility] PCP - General 02/03/17 documented as of this encounter
--- OUTSIDE RECORDS SUMMARY | 2025-01-28 10:30 | XMS_ITS | Encounter Summary ---
Author Organization [facility] Address [address] [place] [address] Care Team Providers Care Cardiology Tech Name Role Phone Brandyn Pagan MD Primary [...] Brandyn Pagan MD [place], Peter J [address] [place] [address] Phone: tel: fax: Referral ID Status Reason Start Date Expiration Date V isits Requested Visits Authorized [id number] Closed Chiropractor 01/27/2017 05/21/2017 1 1 Question Answer When do you want this visit to occur? PT CONVENIENCE Patient is being referred outside of [facility] for the following reason, however final determination for [id number] requests are made by the Referral Management Department Service is not available within [facility] Track Order? No Please list the patient's preferred provider for this consult. Dr Yonis Lang [address] [place] [address] npi#[id number] Encounter Details Date Type Department Care Team (Late st Contact Info) Description 01/27/2017 Orders Only [facility] [address] [place] [phone] Brandyn Pagan MD Social History Tobacco Use [...] chronicity documented in this encounter Care Teams Cardiology Tech Relationship Specialty Start Date End Date Brandyn Pagan MD PCP - General Internal Medicine 08/07/15 02/02/17 Radha Spangler NP PCP - Backup PCP Internal Medicine 01/11/16 02/02/17 Unknown Pcp, Non [facility] PCP - General 02/03/17 documented as of this encounter
--- OUTSIDE RECORDS SUMMARY | 2025-01-28 10:31 | XMS_ITS | Encounter Summary ---
Author Organization [facility] Address [address] [place] [address] Care Team Providers Care Sales Agent [employer] Insurance Name Role Phone Brandyn Pagan MD Primary Care Provider Unavaila Radha Fink NP Unavailable Unavailable Unknown Pcp, Non [facility] Primary Care Provider Unava ilable Encounter Details Date Type Department Care Team (Late st Contact Info) Description 09/21/2016 Orders Only [facility] Pre-Admission Testing [address] [place] [address] Filiberto May MD [address] [place] [address] Social History Tobacco Use Types Packs/Day Years [...] encounter Results * Due to [place] state [...] approximately 13% higher for people identified as -Malian. GFR 50(L) > OR = 60 mL/min/1. [...] needs for GFR calculation. Resulting Agency Comment [id number] us Filiberto May MD LABORATORY Final Result [facility] [address] [place] [address] documented in this encounter Visit Diagnoses Diagnosis BILLIE (obstructive sleep apnea) Obstructive sleep apnea (adult) (pediatric) documented in this encounter Care Teams Sales Agent [employer] Insurance Relationship Specialty Start Date End Date Brandyn Pagan MD PCP - General Internal Medicine 08/07/15 02/02/17 Radha Spangler NP PCP - Backup PCP Internal Medicine 01/11/16 02/02/17 Unknown Pcp, Non [facility] PCP - General 02/03/17 documented as of this encounter
--- OUTSIDE RECORDS SUMMARY | 2025-01-28 10:31 | XMS_ITS ---
Author Name JOYCELYN BORJA Address [address] [place] [address] Phone Organization [facility] Address [address] [address] Phone Care Team Providers Care Teaching Pastor Name Role Phone MD JOYCELYN BORJA Unavailable JUVE STEVE Unavailable VASQUEZJUAN LUIS Unavailable JUVE STEVE Unavailable SHEREEN STINSON Unavailable GOLD, VALERIE Unavailable GOLD, VALERIE Unavailable LORCA, NIXON Unavailable ALLERGIES, ADVERSE REACTIONS AND ALERTS Allergy Name Allergy Date Allergy Status Allergy Severity Allergy Reaction NO KNOWN DRUG ALLERGIES MEDICATIONS RxNorm Brand Name Prescription Ordered Value Order Unit Start Date Date Status Fill Status Indications [id number] Ritalin 10 mg tablet SIG: Ritalin 10 mg oral tablet, 30 days, Dispense #90 Tablet, 0 Refills, Directions: Take 1 oral tablet Three times a day 90 tablet 2021 Historic [id number] Ritalin 10 mg tablet SIG: Ritalin 10 mg oral tablet, 30 days, Dispense #90 Tablet, 0 Refills, Directions: Take 1 oral tablet Three times a day 90 tablet 2021 Historic [id number] Ritalin 10 mg tablet SIG: Ritalin 10 mg oral tablet, 30 days, Dispense #90 Tablet, 0 Refills, Directions: Take 1 oral tablet Three times a day 90 tablet 2021 Historic [id number] Ritalin 10 mg tablet SIG: Ritalin 10 mg oral tablet, 30 days, Dispense #90 Tablet, 0 Refills, Directions: Take 1 oral tablet Three times a day 90 tablet 2021 Historic [id number] Ritalin 10 mg tablet SIG: Ritalin 10 mg oral tablet, 30 days, Dispense #90 Tablet, 0 Refills, Directions: Take 1 oral tablet Three times a day 90 tablet 2021 Historic [id number] escitalo pram oxalate 10 mg tablet SIG: escitalopram oxalate 10 mg oral tablet, 45 days, Dispense #45 Tablet, 2 Refills, Directions: Take 1.5 oral tablet once a day 45 tablet 2021 Historic [id number] [place] Thyroid 30 mg tablet SIG: [place] Thyroid 30 mg oral tablet, 30 days, Dispense #60 Tablet, 2 Refills, Directions: Take 1 oral tablet Twice times a day 60 tablet 2021 Historic [id number] Ritalin 10 mg tablet SIG: Ritalin 10 mg oral tablet, 30 days, Dispense #90 Tablet, 0 Refills, Directions: Take 1 oral tablet Three times a day 90 tablet 2021 Historic 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, PREDOM INATTENTIVE TYPE [id number] [place] Thyroid 30 mg tablet SIG: [place] Thyroid 30 mg oral tablet, 90 days, Dispense #180 Tablet, 1 Refills, Directions: Take 1 oral tablet Twice times a day 180 tablet 2021 Historic [id number] escitalo pram oxalate 10 mg tablet SIG: escitalopram oxalate 10 mg oral tablet, 90 days, Dispense #135 Tablet, 1 Refills, Directions: Take 1.5 oral tablet once a day 135 tablet 2021 Historic [id number] Ritalin 10 mg tablet SIG: Ritalin 10 mg oral tablet, 30 days, Dispense #90 Tablet, 0 Refills, Directions: Take 1 oral tablet Three times a day 90 tablet 2021 Historic 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, PREDOM INATTENTIVE TYPE [id number] Ritalin 10 mg tablet SIG: Ritalin 10 mg oral tablet, 30 days, Dispense #90 Tablet, 0 Refills, Directions: Take 1 oral tablet Three times a day 90 tablet 2021 Historic 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 Monitor BP. 90 capsule 2022 Historic [id number] Ritalin 10 mg tablet SIG: Ritalin 10 mg oral tablet, 30 days, Dispense #45 Tablet, 0 Refills, Directions: Take one tab in am and 1/2 tab at 1 pm. 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 Monitor BP. 90 capsule 2022 Historic [id number] Ritalin 10 mg tablet SIG: Ritalin 10 mg oral tablet, 30 days, Dispense #45 Tablet, 0 Refills, Directions: Take one tab in am and 1/2 tab at 1 pm. 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 120 capsule 2022 Historic [id number] Ritalin 10 mg tablet SIG: Ritalin 10 mg oral tablet, 30 days, Dispense #45 Tablet, 0 Refills, Directions: Take one tab in am and 1/2 tab at 1 pm. 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, PREDOM INATTENTIVE TYPE [id number] Ritalin 10 mg tablet SIG: Ritalin 10 mg oral tablet, 30 days, Dispense #60 Tablet, 0 Refills, Directions: Take 1 oral tablet Twice daily 60 tablet 2023 Historic 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, PREDOM INATTENTIVE TYPE [id number] Ritalin 10 mg tablet SIG: Ritalin 10 mg oral tablet, 30 days, Dispense #60 Tablet, 0 Refills, Directions: Take 1 oral tablet Twice daily 60 tablet 2023 Historic 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, PREDOM INATTENTIVE TYPE [id number] Ritalin 10 mg tablet SIG: Ritalin 10 mg oral tablet, 30 days, Dispense #60 Tablet, 0 Refills, Directions: Take 1 oral tablet Twice daily 60 tablet 2023 Historic 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, PREDOM INATTENTIVE TYPE [id number] Ritalin 10 mg tablet SIG: Ritalin 10 mg oral tablet, 30 days, Dispense #60 Tablet, 0 Refills, Directions: Take 1 oral tablet Twice daily 60 tablet 2023 Historic 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, PREDOM INATTENTIVE TYPE [id number] Ritalin 10 mg tablet SIG: Ritalin 10 mg oral tablet, 30 days, Dispense #60 Tablet, 0 Refills, Directions: Take 1 oral tablet Twice daily 60 tablet 2023 Historic 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, PREDOM INATTENTIVE TYPE [id number] Ritalin 10 mg tablet SIG: Ritalin 10 mg oral tablet, 30 days, Dispense #90 Tablet, 0 Refills, Directions: Take 1.50 oral tablets Twice daily 90 tablet 2023 Historic 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, PREDOM INATTENTIVE TYPE [id number] Ritalin 10 mg tablet SIG: Ritalin 10 mg oral tablet, 30 days, Dispense #90 Tablet, 0 Refills, Directions: Take 1.50 oral tablets Twice daily 90 tablet 2023 Historic 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, PREDOM INATTENTIVE TYPE [id number] Ritalin 10 mg tablet SIG: Ritalin 10 mg oral tablet, 30 days, Dispense #90 Tablet, 0 Refills, Directions: Take 1.50 oral tablets Twice daily 90 tablet 2023 Historic 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, PREDOM INATTENTIVE TYPE [id number] atomoxet ine 25 mg capsule SIG: atomoxetine 25 mg oral capsule, 30 days, Dispense #30 Capsule, 1 Refills, Directions: Take 1 oral capsule Once daily in AM 30 capsule 2023 Current PROBLEMS Problem Code Problem Description Problem Status Problem Da te Problem End Date K21.1-VBCPVQ-ETMMDDDK AL REFLUX DISEASE WITHOUT ESOPHAGITIS GASTRO-ESOPHAGEAL REFLUX DISEASE WITHOUT ESOPHAGITIS Current 01/06/2022 F90.2-QFCY-BOQER HYPERACTIVITY DISORDER, PREDOM INATTENTIVE TYPE ATTN-DEFCT HYPERACTIVITY [...] Observation Ex-smoker Sex: Female CARE TEAM INFORMATION Teaching Pastor Provider ID Role Location Phone JOYCELYN BORJA [id number] PSYCHIATRIST [address] [place] [phone] STEVE AN [id number] NURSE PRACTITIONER FRIEDA [address] [place] [address] JUAN LUIS VASQUEZ THERAPIST [address] [place] [address] STEVE AN [id number] NURSE PRACTITIONER FRIEDA [address] [place] [address] SHEREEN STINSON [id number] THERAPIST [address] [place] [phone] VALERIE MALCOLM [id number] NURSE PRACTITIONER [facility]RIEDA [address] [place] [address] VALERIE GOLD [id number] NURSE PRACTITIONER [address]RIED[address] [place] [phone] NIXONJim SHELLEY [id number] THERAPIST [address] [address] [place] [address] INSURANCE PROVIDERS Payer Name Policy type / Coverage type Covered democrat ID Policy [facility] - MEDICARE Private Health Insurance [id number] SELF
--- OUTSIDE RECORDS SUMMARY | 2025-01-28 10:31 | XMS_ITS | Encounter Summary ---
Author Organization [facility] Address [address] [place] [address] Care Team Providers Care Operations Program Manager Name Role Phone Bijal Fox PUBLIC SPEAKER Primary Care Provider [phone] Encounter Details Date Type Department Care Team (Late st Contact Info) Description 07/16/2024 Lab Requisition [facility] Lab [address] [place] [address] Bijal Fox, PUBLIC SPEAKER [address] [facility] [address] [place] [address] Urinary tract infection, site not specified Social History Tobacco Use Types Packs/Day Years Used Date Smoking Tobacco: Former Smokeless Tobacco: Never Comments:: Alcohol Use Standard Drinks/Week Comments Not Currently 0 (1 standard drink = 0.6 oz pur e alcohol) [facility] Utilities Answer Date Recorded In the past 12 months has th e [employer], gas, oil, or water [employer] threatened to shut off services in your [...] Upcoming Encounters Date Type Department Care Team ([facility] st Contact Info) Description 02/04/2025 2:15 PM EDT Follow-Up [facility] Nephrology 100 [facility] [address] [place] [address] John Hendricks MD [address] [address] 07/16/2025 10:00 AM EST Follow-Up [address] Cardiology 100 [facility] [address] [place] [address] Mabel Onofre NP 100 [facility] [address] [place] [address] documented as of this encounter Procedures * Due to [facility] law, this organization might not be sharing negative HIV tests. Procedure Name Priority Date/Time Associated Diagnosis Comments URINE CULTURE, ROUTINE Routine 07/16/2024 12:33 PM EST Urinary tract infection, site not specified documented in this encounter Results * Due to [facility] law, this organization might not be sharing negative HIV tests. * (ABNORMAL) Urine Culture, Routine (07/16/2024 12:33 PM EST) Urine Culture >100,000 CFU/mL Escherichia coli(A) MINIMUM INHIBITORY CONCENTRATION (VLADIMIR) 07/18/2024 7:44 AM EST [facility] Urine Urine specimen collection, clean [...] us Bijal Fox NP LAB MICROBIOLOGY - [facility] Final Result [facility] [address] [facility] [address] [place] [address], documented in this encounter Visit Diagnoses Diagnosis Urinary tract infection, site not specified documented in this encounter Care Teams Operations Program Manager Relationship Specialty Start Date End Date Bijal Fox, MEY 100 [facility] [address] [place] [address] PCP - General Family Medicine 05/30/24 documented as of this encounter
--- OUTSIDE RECORDS SUMMARY | 2025-01-28 10:31 | XMS_ITS | Encounter Summary ---
Author Organization [facility] Address [address] [place] [address] Care Team Providers Care Oracle Webcenter Consultant Name Role Phone Brandyn Pagan MD Primary Care Provider Unavaila Radha Fink NP Unavailable Unavailable Unknown Pcp, Non [facility] Primary Care Provider Unava ilable Encounter Details Date Type Department Care Team (Late st Contact Info) Description 02/19/2016 Orders Only [facility] [address] [place] [address] Brandyn Pagan MD Social History Tobacco Use [...] this encounter Procedures * Due to [place] [employer] law, this organization might not be [...] this encounter Results * Due to [place] [employer] law, this organization might not be sharing negative HIV tests. * (ABNORMAL) URINALYSIS, DIP ONLY ( SITE STAT ONLY) (02/19/2016 2:13 PM EDT) COLOR (URINE) Yellow [facility] (CLIA# [id number]) APPEARANCE (URINE) Cloudy [facility] (CLIA# [id number]) SPECIFIC GRAVITY 1.010 1.001 - 1.035 [facility] (CLIA# [id number]) PH (URINE) 7.5 5.0 - 8.0 [facility] (CLIA# [id number]) PROTEIN (URINE) Trace(A) Neg [facility] (CLIA# [id number]) GLUCOSE (URINE) Negative Neg [facility] (CLIA# [id number]) Ketones (Urine) Negative Neg [facility] (CLIA# [id number]) BILIRUBIN (URINE) Negative Neg [facility] (CLIA# [id number]) BLOOD (URINE) Negative Neg [facility] (CLIA# [id number]) Leukocyte esterase (Urine) 2+(A) [facility] (CLIA# [id number]) NITRITE (URINE) Negative Neg [facility] (CLIA# [id number]) Urine specimen obtained by clean catch procedure (specimen) 02/19/2016 2:13 PM EDT Narrative [facility] (CLIA# [id number]) - 02/19/2016 2:14 PM EDT Micro and culture already ordered per provider. us Brandyn Pagan MD LAB SAME DAY RESULT Final Resul t [facility] (CLIA# [id number]) [address] [place] [address] * (ABNORMAL) CULTURE, URINE, ROUTINE (02/19/2016 2:00 PM EDT) Bacteria culture (Urine) SEE NOTE(A) [facility] Comment: {CULTURE, URINE, ROUTINE {[id number]) CULTURE, URINE, ROUTINE MICRO NUMBER: [id number] TEST STATUS: FINAL SPECIMEN SOURCE: URINE SPECIMEN QUALITY: ADEQUATE RESULT: 50,000-100,000 CFU/mL of Escherichia coli Greater than 100,000 CFU/mL of Staphylococcus saprophyticus The Clinical Laboratory Standards [place] (M100 guidelines), does not advise routine susceptibility [...] 7:35 PM EDT Narrative Resulting Agency Comment [id number] us Brandyn Pagan MD LABORATORY Final Result Performing Organization Address [facility] de Phone Number [email or web address] [address] [place] [address] * (ABNORMAL) URINALYSIS, MICROSCOPIC (02/19/2016 2:00 PM EDT) WBC (Urine) 20-40(A) < OR = 5 /HPF [facility] Comment:{WBC {[id number]) RBC (Urine Sed) NONE SEEN < OR = 2 /HPF [facility] Comment:{RBC {[id number]) Epithelial cells.squamous (Urine sed) NONE SEEN < OR = 5 /HPF [facility] Comment:{SQUAMOUS EPITHELIAL CELLS {[id number]) Bacteria (Urine) FEW(A) NONE SEEN /HPF [facility] Comment:{BACTERIA {[id number]) Hyaline casts (Urine sed) NONE SEEN NONE SEEN /LPF [facility] Comment:{HYALINE CAST {[id number]) 02/19/2016 2:00 PM EDT 02/19/2016 7:35 PM EDT Narrative Resulting Agency Comment [id number] us Brandyn Pagan MD LAB SAME DAY RESULT Final Resul t Performing Organization Address [facility] Co de Phone Number [email or web address] [address] [place] [address] documented in this encounter Visit Diagnoses Diagnosis Urinary tract infection, site unspecified documented in this encounter Care Teams [employer] Web[employer] Consultant Relationship Specialty Start Date End Date Brandyn Pagan MD PCP - General Internal Medicine 08/07/15 02/02/17 Radha Spangler NP PCP - Backup PCP Internal Medicine 01/11/16 02/02/17 Unknown Pcp, Non [facility] PCP - General 02/03/17 documented as of this encounter
--- OUTSIDE RECORDS SUMMARY | 2025-01-28 10:31 | XMS_ITS | Encounter Summary ---
Author Organization [facility] Address [address] [place] [address] Care Team Providers Care Web Database Developer Name Role Phone Brandyn Pagan MD Primary Care Provider Unavaila Radha Fink NP Unavailable Unavailable Unknown Pcp, Non [facility] Primary Care Provider Unava ilable Encounter Details Date Type Department Care Team (Late st Contact Info) Description 03/18/2016 Orders Only [facility] [address] [place] [address] Radha Spangler NP Social History Tobacco Use [...] this encounter Procedures * Due to [place] [employer] law, this organization might not be sharing [...] this encounter Results * Due to [place] [employer] law, this organization might not be sharing negative HIV tests. * (ABNORMAL) BASIC METABOLIC PANEL WITH (GFR) (03/18/2016 10:02 AM EDT) Glucose 102(H) 65 - 99 mg/dL [facility] Comment: {GLUCOSE {[id number]) Fasting reference interval Urea Nitrogen Blood (BUN) 21 7 - 25 mg/dL [facility] Comment:{UREA NITROGEN (BUN) {[id number]) Creatinine 0.95 0.50 - 0.99 mg/dL [facility] Comment: {CREATININE {[id number]) For patients >49 years of age, the reference limit for Creatinine is approximately 13% higher for people identified as -Malaysian. GFR 63 > OR = 60 mL/min/1 .73m2 [facility] Comment:{eGFR NON-AFR. AMERI CAN {[id number]) GFR () 73 > OR = 60 mL/min/1 .73m2 [facility] Comment:{eGFR AMERIC AN {[id number]) BUN/Creatinine Ratio NOT APPLICABLE (calc) [facility] Comment:{BUN/CREATININE RATI O {[id number]) Sodium 139 135 - 146 mmol/L [facility] Comment:{SODIUM {[id number]) Potassium 4.8 3.5 - 5.3 mmol/L [facility] Comment:{POTASSIUM {[id number]) Chloride 106 98 - 110 mmol/L [facility] Comment:{CHLORIDE {[id number]) Carbon dioxide 25 20 - 31 mmol/L [facility] Comment:{CARBON DIOXIDE {[id number]) Calcium 9.3 8.6 - 10.4 mg/dL [facility] Comment:{CALCIUM {[id number]) 03/18/2016 10:0 2 AM EDT 03/18/2016 [...] needs for GFR calculation. Resulting Agency Comment [id number] Radha Spangler NP LABORATORY Final Result Performing Organization Address City/[facility]/ZIP Co de Phone Number [facility] [address] [place] [address] * (ABNORMAL) CREATINE KINASE (CK), SERUM (03/18/2016 10:02 AM EDT) CPK 196(H) 29 - 143 U/L [facility] Comment:{CREATINE KINASE, TO KENZIE {[id number]) 03/18/2016 10:0 2 AM EDT 03/18/2016 4:21 PM EDT Narrative Resulting Agency Comment [id number] Radha Spangler NP LAB SAME DAY RESULT Final Re sult [facility] [address] [place] [address] * (ABNORMAL) ALANINE AMINOTRANSFERASE (ALT), SERUM (03/18/2016 10:02 AM EDT) ALT (SGPT) 32(H) 6 - 29 U/L [facility] Comment:{ALT {[id number]) 03/18/2016 10:0 2 AM EDT 03/18/2016 4:21 PM EDT Narrative Resulting Agency Comment [id number] Radha Spangler NP LAB SAME DAY RESULT Final Re sult [facility] [address] [place] [address] * (ABNORMAL) LIPID PANEL WITH REFLEX TO DIRECT LDL (03/18/2016 10:02 AM EDT) Cholesterol 274(H) 125 - 200 mg/dL [facility] Comment:{CHOLESTEROL, TOTAL {[id number]) HDL Cholesterol 74 > OR = 46 mg/dL [facility] Comment:{HDL CHOLESTEROL {[id number]) Triglyceride 165(H) <150 mg/dL [facility] Comment:{TRIGLYCERIDES {[id number]) LDL Cholesterol 167(H) <130 mg/dL (calc) [facility] Comment: {LDL-CHOLESTEROL {[id number]) Desirable range <100 mg/dL for patients with CHD or diabetes and <70 mg/dL for diabetic patients with known heart disease. CHOL/HDL Ratio 3.7 < OR = 5.0 (calc) [facility] Comment:{CHOL/HDLC RATIO {[id number]) Cholesterol Non-HDL 200(H) mg/dL (calc) [facility] Comment: {NON HDL CHOLESTEROL {[id number]) Target for non-HDL cholesterol is 30 mg/dL higher than LDL cholesterol target. 03/18/2016 10:0 2 AM EDT 03/18/2016 4:21 PM EDT Narrative Resulting Agency Comment [id number] Radha Eineberg TURBINE TECHNICIAN LABORATORY Final Result [facility] [address] [place] [address] documented in this encounter Visit Diagnoses Diagnosis Hyperlipidemia, unspecified hyperlipidemia type Essential hypertension with goal blood pressure less than 140/90 documented in this encounter Care Teams Web Database Developer Relationship Specialty Start Date End Date Brandyn Pagan MD PCP - General Internal Medicine 08/07/15 02/02/17 Radha Spangler NP PCP - Backup PCP Internal Medicine 01/11/16 02/02/17 Unknown Pcp, Non [facility] PCP - General 02/03/17 documented as of this encounter
--- OUTSIDE RECORDS SUMMARY | 2025-01-28 10:31 | XMS_ITS | Encounter Summary ---
Author Organization [facility] Address [address] [place] [address] Care Team Providers Care Manager Wastewater Name Role Phone Brandyn Pagan MD Primary Care Provider Unavaila Radha Fink NP Unavailable Unavailable Unknown Pcp, Non Rmg Primary Care Provider Unava ilable Encounter Details Date Type Department Care Team (Late st Contact Info) Description 11/02/2015 Orders Only [facility] [address] [place] [address] Radha Spangler NP Social History Tobacco Use [...] this encounter Procedures * Due to [place] [employer] law, this organization might not be sharing negative HIV tests. Procedure Name Priority Date/Time Associated Diagnosis Comments ALANINE AMINOTRANSFERASE (ALT), SERUM Routine 11/02/2015 12:44 PM EDT Hyperlipidemia, unspecified hyperlipidemia type CREATINE KINASE (CK), SERUM Routine 11/02/2015 12:44 PM EDT Hyperlipidemia, unspecified hyperlipidemia type documented in this encounter Results * Due to [place] [employer] law, this organization might not be sharing negative HIV tests. * CREATINE KINASE (CK), SERUM (11/02/2015 12:44 PM EDT) CPK 106 29 - 143 U/L [facility] Comment:{CREATINE KINASE, TO KENZIE {[id number]) 11/02/2015 12:4 4 PM EDT 11/03/2015 2:14 AM EDT Narrative Resulting Agency Comment [id number] Radha Spangler MUSIC PROMOTER LAB SAME DAY RESULT Final Re sult [facility] [address] [place] [address] * ALANINE AMINOTRANSFERASE (ALT), SERUM (11/02/2015 12:44 PM EDT) ALT (SGPT) 22 6 - 29 U/L [facility] Comment:{ALT {[id number]) 11/02/2015 12:4 4 PM EDT 11/03/2015 2:14 AM EDT Narrative Resulting Agency Comment [id number] Radha Spangler MUSIC PROMOTER LAB SAME DAY RESULT Final Re sult [facility] [address] [place] [address] documented in this encounter Visit Diagnoses Diagnosis Hyperlipidemia, unspecified hyperlipidemia type documented in this encounter Care Teams Manager Wastewater Relationship Specialty Start Date End Date Brandyn Pagan MD PCP - General Internal Medicine 08/07/15 02/02/17 Radha Spangler NP PCP - Backup PCP Internal Medicine 01/11/16 02/02/17 Unknown Pcp, Non Rmg PCP - General 02/03/17 documented as of this encounter
--- OUTSIDE RECORDS SUMMARY | 2025-01-28 10:31 | XMS_ITS | Encounter Summary ---
Author Organization [facility] Address [address] [place] [address] Care Team Providers Care Booster Pump Operator Name Role Phone Bijal Fox WEB APPLICATION DEV SPECIALIST Primary Care Provider [phone] Encounter Details Date Type Department Care Team (Late st Contact Info) Description 09/12/2024 Myntra Message Intial Department [address] [place] [address] [place]oom[place], Generic Provider [address] [place], [place] [address] Questionnaire Submission Social History Tobacco Use Types Packs/Day Years Used Date Smoking Tobacco: Former Smokeless Tobacco: Never Comments:: Alcohol Use Standard Drinks/Week Comments Not Currently 0 (1 standard drink = 0.6 oz pur e alcohol) [facility] Utilities Answer Date Recorded In the past [...] Encounters Date Type Department Care Team ([facility] st Contact Info) Description 02/04/2025 2:15 PM EDT Follow-Up [facility] Nephrology [address] [place] [address] [address] [place] [address] John Hendricks MD 123 [facility] [address] [place] [address] 07/16/2025 10:00 AM EST Follow-Up [address] Cardiology [address] [place] [address] [address] [place] [address] Mabel Onofre NP [address] [place] [address] [address] [place] [address] documented as of this encounter Visit Diagnoses Not on filedocumented in this encounter Care Teams Booster Pump Operator Relationship Specialty Start Date End Date Bijal Fox NP [address] [place] [address] [address] [place] [address] PCP - General Family Medicine 05/30/24 documented as of this encounter
--- OUTSIDE RECORDS SUMMARY | 2025-01-28 10:31 | XMS_ITS | Encounter Summary ---
Author Organization [facility] Address [address] [place] [address] Care Team Providers Care Funder Name Role Phone Bijal Fox PLANTING MACHINE CREWMAN Primary Care Provider Encounter Details Date Type Department Care Team (Late st Contact Info) Description 07/04/2024 Orders Only [facility] [address] [place] [address] Magy Sawyer NP 100 [facility] [address] [place] [phone] Hyperlipidemia, unspecified hyperlipidemia type (Primary Dx); Myxedema heart disease Social History Tobacco Use Types Packs/Day Years Used Date Smoking Tobacco: Former Smokeless Tobacco: Never Comments:: Alcohol Use Standard Drinks/Week Comments Not Currently 0 (1 standard drink = 0.6 oz pur e alcohol) [facility] Utilities Answer Date Recorded In the past 12 months has th e [email or web address], gas, oil, or water [employer] threatened to shut off services in your [...] Info) Description 02/04/2025 2:15 PM EDT Follow-Up [facility] Nephrology 100 [facility] [address] [place] [address] John Hendricks MD [address] [address] 07/16/2025 10:00 AM EST Follow-Up [facility] 100 [facility] Cardiology 100 [facility] [address] [place] [address] Mabel Onofre NP 100 [facility] [address] [place] [address] documented as of this encounter Results * Due to [place] state law, this organization might not be sharing negative HIV tests. * T4, Free (07/13/2024 10:20 AM EST) Free T4 1.24 0.80 - 1.80 ng/dL 07/13/2024 11:15 AM EST [facility] Comment: Females: (ng/dL) First Trimester 0.95-1.58 [...] EST 07/13/2024 10:29 AM EST us Magy aSwyer NP LAB BLOOD ORDERABLES Final Res ult Performing Organization Address [facility] Phone Number [facility] [address] [place] [address], [place] [phone] * TSH (07/13/2024 10:20 AM EST) TSH 3.750 0.270 - 4.200 uIU/mL 07/13/2024 11:15 AM EST [facility] Comment: Females: 1st trimester 0.150-4.000 IU/mL 2nd trimester 0.310-4.170 IU/mL 3rd trimester 0.380-4.150 IU/mL Blood Structure of peripheral vein / Unknown Venipuncture / Unknown 07/13/2024 10:20 AM EST 07/13/2024 10:29 AM EST us Magy Sawyer PLANTING MACHINE CREWMAN LAB BLOOD ORDERABLES Final Res ult Performing Organization Address [facility] Phone Number [facility] [address] [place] [address], [place] [phone] * (ABNORMAL) Comprehensive Metabolic Panel (07/13/2024 10:20 AM EST) NA 142 136 - 145 mmol/L 07/13/2024 11:15 AM EST [facility] K 4.6 3.5 - 5.1 mmol/L 07/13/2024 11:15 AM EST [facility] Cl 104 98 - 109 mmol/L 07/13/2024 11:15 AM EST [facility] CO2 28 22 - 32 mmol/L 07/13/2024 11:15 AM EST [facility] Anion Gap 15 >=0 07/13/2024 11:15 AM [facility] Glucose 94 60 - 99 mg/dL 07/13/2024 11:15 AM [facility] Creatinine 1.40(H) 0.50 - 1.12 mg/dL 07/13/2024 11:15 AM [facility] Calcium 9.4 8.4 - 10.4 mg/dL 07/13/2024 11:15 AM [facility] Total Protein 6.4(L) 6.6 - 8.7 g/dL 07/13/2024 11:15 AM [facility] Albumin 3.7 3.5 - 5.0 g/dL 07/13/2024 11:15 AM [facility] Bilirubin, Total 0.4 0.2 - 1.2 mg/dL 07/13/2024 11:15 AM [facility] Alkaline Phosphatase 113 40 - 129 U/L 07/13/2024 11:15 AM [facility] AST 25 0 - 33 U/L 07/13/2024 11:15 AM [facility] ALT 33 <=33 U/L 07/13/2024 11:15 AM [facility] BUN 20 8 - 23 mg/dL 07/13/2024 11:15 AM [facility] eGFR 40(L) >=60 mL/min/1. 73m2 07/13/2024 11:15 AM [facility] Comment:The estimated glomer [...] - 4.2 g/dL 07/13/2024 11:15 AM EST [facility] A/G Ratio 1.4(L) 1.5 - 3.0 07/13/2024 11:15 AM EST [facility] Blood Structure of peripheral vein / Unknown Venipuncture / Unknown 07/13/2024 10:20 AM EST 07/13/2024 10:29 AM EST us Magy Sawyer PLANTING MACHINE CREWMAN LAB BLOOD ORDERABLES Final Res ult [facility] [address] [place] [address] [address] [place] [address], * Lipid panel (07/13/2024 10:20 AM EST) Cholesterol 259 mg/dL 07/13/2024 11:15 AM EST [facility] Comment: DESIRABLE: <200 mg/dL BORDERLINE HIGH: 200-239 mg/dL HIGH: >239 mg/dL Triglycerides 123 mg/dL 07/13/2024 11:15 AM EST [facility] Comment: NORMAL: <150 mg/dL BORDERLINE HIGH: 150-199 mg/dL HIGH: 200-499 mg/dL VERY HIGH >499 mg/dL Cholesterol, HDL 72 mg/dL 07/13/19 11:15 AM EST [facility] Comment: DESIRABLE: >60 mg/dL BORDERLINE: 40-59 mg/dL UNDESIRABLE: <40 mg/dL LDL Cholesterol 162 mg/dL 11:15 AM EST [facility] Comment: OPTIMAL: <100 mg/dL NEAR OPTIMAL: <130 mg/dL BORDERLINE HIGH: 130-159 mg/dL HIGH: 160-189 mg/dL VERY HIGH: >189 mg/dL VLDL 24.6 mg/dL 07/13/2024 11:15 AM EST [facility] Cholesterol/HDL Ratio 3.6 07/13/2024 11:15 AM EST [facility] Blood Structure of peripheral vein / Unknown Venipuncture / Unknown 07/13/2024 10:20 AM EST 07/13/2024 10:29 AM EST us Magy Sawyer PLANTING MACHINE CREWMAN LAB BLOOD ORDERABLES Final Res ult [facility] [address] [facility] [address] [place] [address], documented in this encounter Visit Diagnoses Diagnosis Hyperlipidemia, unspecified hyperlipidemia type- Primary Myxedema heart disease Unspecified hypothyroidism documented in this encounter Care Teams Funder Relationship Specialty Start Date End Date Bijal Fox NP 100 [facility] [address] [place] [address] PCP - General Family Medicine 05/30/24 documented as of this encounter
--- OUTSIDE RECORDS SUMMARY | 2025-01-28 10:31 | XMS_ITS | Encounter Summary ---
Author Organization [facility] Address [address] [place] [address] Care Team Providers Care Inventory Audit Clerk Name Role Phone Unknown Pcp, Non Rmg [...] Date Expiration Date Visits Requested Visits Authorized [id number] Canceled Service Not Available at Clinic 02/03/2017 1 1 Question Answer When do you want this visit to occur? FIRST ROUTINE AVAILABLE - ass soon as possible patient moving to [facility] Patient is being referred outside of [facility] for the following reason, however final determination for [id number] requests are made by the Referral Management Department [facility] available [facility] Track Order? No Encounter Details Date Type Department Care Team (Late st Contact Info) Description 02/03/2017 Orders Only [facility] [address] [place] [phone] Brandyn Pagan MD Social History Tobacco Use [...] chronicity documented in this encounter Care Teams Inventory Audit Clerk Relationship Specialty Start Date End Date Unknown Pcp, Non Rmg PCP - General 02/03/17 documented as of this encounter
--- OUTSIDE RECORDS SUMMARY | 2025-01-28 10:31 | XMS_ITS | Encounter Summary ---
Author Organization [facility] Address [address] [place] [address] Care Team Providers Care Client Executive Name Role Phone Brandyn Pagan MD Primary Care Provider Radha Cuevas NP Unavailable Unavailable Unknown Pcp, Non Rmg Primary Care Provider Unava ilable Reason for Visit * Reason Comments ER F/U Encounter Details Date Type Department Care Team (Late st Contact Info) Description 07/29/2016 [facility] Internal Medicine [address] [place] [phone] Brandyn Pagan MD ER F/U Social [...] Management/Disease Management: not needed Chief Complaint: Genie Voar 66 y.o. female was assessed following an Emergency Department visit. ED location: [facility] ER Date of ED Visit: 07-26-16 [...] on filedocumented in this encounter Care Teams Client Executive Relationship Specialty Start Date End Date Brandyn Pagan MD PCP - General Internal Medicine 08/07/15 02/02/17 Radha Spangler NP PCP - Backup PCP Internal Medicine 01/11/16 02/02/17 Unknown Pcp, Non Rmg PCP - General 02/03/17 documented as of this encounter
--- OUTSIDE RECORDS SUMMARY | 2025-01-28 10:31 | XMS_ITS | Encounter Summary ---
Author Organization [facility] Address [address] [place] [address] Care Team Providers Care Truck Headlight Assembler Name Role Phone Unknown Pcp, Non Rmg Primary Care Provider Unava ilable Encounter Details Date Type Department Care Team (Late st Contact Info) Description 02/03/2017 Orders Only [facility] [address] [place] [phone] Unknown Pcp, Non Rmg Social History Tobacco [...] on filedocumented in this encounter Care Teams Truck Headlight Assembler Relationship Specialty Start Date End Date Unknown Pcp, Non Rmg PCP - General 02/03/17 documented as of this encounter
--- OUTSIDE RECORDS SUMMARY | 2025-01-28 10:31 | XMS_ITS | Clinical Summary ---
Author Organization [facility] Address [address] [place] [address] Care Team Providers Care Technician Submarine Cable Equipment Name Role Phone Unavailable Primary Care Provider [...]
--- OUTSIDE RECORDS SUMMARY | 2025-01-28 10:31 | XMS_ITS | Clinical Summary ---
Author Organization [facility] Address [address] [place] [address] Care Team Providers Care Gis Professor Name Role Phone Unknown Pcp, Non Rmg [...] however patient is planning on moving to [place] in the next few weeks. She does [...] (when compared with previous ct scan from [facility], but NEW lung nodule R middle lobe 2 mm. Will f/u with screen CT in 1 year HTN 11/02/2015 Cervical spondylosis with radiculopathy 11/02/19 16 Flat foot (pes planus) (acquired), left foot Psoriasis 11/02/2015 Major depression in partial remission 11/02/2015 Overview (12/21/2016): Refer to PCP cpe dated 01/11/16 Psych: Reports anxiety and depression are stable. Sees Dr. Alvarado psychiatrist, in [place]. He prescribes lamotrigine, duloxetine, tramadol, Adderall. 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 Irene Christensen in [place]. Confirmed with their office that she is [...] Radha Spangler, MEY Procedures * Due to [place] [employer] law, this organization might not be sharing negative HIV tests. Procedure Name Priority Date/Time Associated Diagnosis Comments MAMMOGRAPHY-BILATERAL 06/05/2014 PAP SMEAR 06/05/2014 from Last 3 Months or Most Recently Relevant to Health Maintenance Results * Due to [place] [employer] law, this organization might not be sharing negative HIV tests. * PAP SMEAR (06/05/2014) Narrative Transcriptions Amol Jon - 01/29/2016 12:00 AM EDT Amol Jon PATHOLOGY Final Result * MAMMOGRAPHY-BILATERAL (06/05/2014) 06/05/2014 Narrative Transcriptions [facility] oJn - 01/29/2016 12:00 AM EDT Amol Jon GENERAL IMAGING- OTHER Final Res ult from Last 3 Months or Most Recently Relevant to Health Maintenance Advance Directives Documents on File Type Date Recorded Patient Car Porter Expl anation Advance Directives and Living Will 03/11/2016 Care Teams Gis Professor Relationship Specialty Start Date End Date Unknown Pcp, Non Rmg PCP - General 02/03/17
--- OUTSIDE RECORDS SUMMARY | 2025-01-28 10:31 | XMS_ITS | Encounter Summary ---
Author Organization [facility] Address [address] [place] [address] Care Team Providers Care Support Services Coordinator Name Role Phone Brandyn Pagan MD Primary Care Provider Radha Cuevas NP Unavailable Unavailable Unknown Pcp, Non Rmg Primary Care Provider Unava ilable Encounter Details Date Type Department Care Team (Late st Contact Info) Description 10/06/2015 Orders Only [facility] [address] [place] [address] Brandyn Pagan MD Social History Tobacco Use [...] proper risk profile. I cannot run the [place] [employer] risk calculator. The decision related [...] this encounter Procedures * Due to [place] [employer] law, this organization might not be sharing [...] this encounter Results * Due to [place] [employer] law, this organization might not be sharing negative HIV tests. * (ABNORMAL) URINALYSIS, DIP ONLY ( SITE STAT ONLY) (10/06/2015 11:19 AM EDT) COLOR (URINE) YELLOW [facility] (CLIA# [id number]) APPEARANCE (URINE) CLOUDY [facility] (CLIA# [id number]) SPECIFIC GRAVITY 1.020 1.001 - 1.035 [facility] (CLIA# [id number]) PH (URINE) 5.0 5.0 - 8.0 [facility] (CLIA# [id number]) PROTEIN (URINE) TRACE(A) Neg [facility] (CLIA# [id number]) GLUCOSE (URINE) NEGATIVE Neg [facility] (CLIA# [id number]) Ketones (Urine) NEGATIVE Neg [facility] (CLIA# [id number]) BILIRUBIN (URINE) NEGATIVE Neg [facility] (CLIA# [id number]) BLOOD (URINE) NEGATIVE Neg [facility] (CLIA# [id number]) Leukocyte esterase (Urine) 1+(A) [facility] (CLIA# [id number]) NITRITE (URINE) POSITIVE(A) Neg [facility] (CLIA# [id number]) Urine specimen obtained by clean catch procedure (specimen) 10/06/2015 11:19 AM EDT Narrative [facility] (CLIA# [id number]) - 10/06/2015 11:19 AM EDT Micro and culture already ordered per provider. us Brandyn Pagan MD LAB SAME DAY RESULT Final Resul t [facility] (CLIA# [id number]) [address] [place] [address] * (ABNORMAL) CULTURE, URINE, ROUTINE (10/06/2015 10:11 AM EDT) Pathologist [facility] Bacteria culture (Urine) SEE NOTE(A) [facility] Comment: {CULTURE, URINE, ROUTINE {[id number]) CULTURE, URINE, ROUTINE MICRO NUMBER: [id number] TEST STATUS: FINAL SPECIMEN SOURCE: URINE, CLEAN [...] 6:19 PM EDT Narrative Resulting Agency Comment [id number] Brandyn Pagan MD LABORATORY Final Result [facility] [address] [place] [address] * (ABNORMAL) URINALYSIS, MICROSCOPIC (10/06/2015 10:11 AM EDT) WBC (Urine) 20-40(A) < OR = 5 /HPF [facility] Comment:{WBC {[id number]) RBC (Urine Sed) 0-2 < OR = 2 /HPF [facility] Comment:{RBC {[id number]) Epithelial cells.squamous (Urine sed) NONE SEEN < OR = 5 /HPF [facility] Comment:{SQUAMOUS EPITHELIAL CELLS {[id number]) Bacteria (Urine) MANY(A) NONE SEEN /HPF [facility] Comment:{BACTERIA {[id number]) Hyaline casts (Urine sed) NONE SEEN NONE SEEN /LPF [facility] Comment:{HYALINE CAST {[id number]) 10/06/2015 10:1 1 AM EDT 10/06/2015 6:19 PM EDT Narrative Resulting Agency Comment [id number] Brandyn Pagan MD LAB SAME DAY RESULT Final Resul t Performing Organization Address [facility] Co de Phone Number [facility] [address] [place] [address] * GLUCOSE (BLOOD) (10/06/2015 10:11 AM EDT) Glucose 86 65 - 99 mg/dL [facility] Comment: {GLUCOSE {[id number]) Fasting reference interval 10/06/2015 10:1 1 AM EDT 10/06/2015 6:19 PM EDT Narrative Resulting Agency Comment [id number] Brandyn Pagan MD LAB SAME DAY RESULT Final Resul t Performing Organization Address [facility] de Phone Number [facility] [address] [place] [address] * (ABNORMAL) LIPID PANEL WITH REFLEX TO DIRECT LDL (10/06/2015 10:11 AM EDT) Cholesterol 243(H) 125 - 200 mg/dL [facility] Comment:{CHOLESTEROL, TOTAL {[id number]) HDL Cholesterol 71 > OR = 46 mg/dL [facility] Comment:{HDL CHOLESTEROL {[id number]) Triglyceride 163(H) <150 mg/dL [facility] Comment:{TRIGLYCERIDES {[id number]) LDL Cholesterol 139(H) <130 mg/dL (calc) [facility] Comment: {LDL-CHOLESTEROL {[id number]) Desirable range <100 mg/dL for patients with CHD or diabetes and <70 mg/dL for diabetic patients with known heart disease. CHOL/HDL Ratio 3.4 < OR = 5.0 (calc) [facility] Comment:{CHOL/HDLC RATIO {[id number]) Cholesterol Non-HDL 172(H) mg/dL (calc) [facility] Comment: {NON HDL CHOLESTEROL {[id number]) Target for non-HDL cholesterol is 30 mg/dL higher than LDL cholesterol target. 10/06/2015 10:1 1 AM EDT 10/06/2015 6:19 PM EDT Narrative Resulting Agency Comment [id number] Brandyn Pagan MD LABORATORY Final Result [facility] [address] [place] [address] documented in this encounter Visit Diagnoses Diagnosis Lipid screening Screening for lipoid disorders Screening for cardiovascular condition Screening for other and unspecified cardiovascular conditions Screening for diabetes mellitus Urinary tract infection, site unspecified documented in this encounter Care Teams Support Services Coordinator Relationship Specialty Start Date End Date Brandyn Pagan MD PCP - General Internal Medicine 08/07/15 02/02/17 Radha Spangler NP PCP - Backup PCP Internal Medicine 01/11/16 02/02/17 Unknown Pcp, Non Rmg PCP - General 02/03/17 documented as of this encounter
--- OUTSIDE RECORDS SUMMARY | 2025-01-28 10:31 | XMS_ITS | Encounter Summary ---
Author Organization [facility] Address [address] [place] [address] Care Team Providers Care Log Cut Off Sawyer Name Role Phone Bijal Fox WEB PRESS ROLL TENDER Primary Care Provider [phone] Encounter Details Date Type Department Care Team (Late st Contact Info) Description 06/23/2024 Lab Requisition [facility] [address] [place] [address] Mj Mendenhall MD [address] [place] [address] Pneumonia due to other specified infectious organisms Social History Tobacco Use Types Packs/Day Years Used Date Smoking Tobacco: Former Smokeless Tobacco: Never Comments:: Alcohol Use Standard Drinks/Week Comments Not Currently 0 (1 standard drink = 0.6 oz pur e alcohol) [facility] Utilities Answer Date Recorded In the past 12 months has e [employer], gas, oil, or water [employer] threatened to shut off services in your [...] [facility] st Contact Info) Description 02/04/2025 2:15 PM EDT Follow-Up [facility] Nephrology 100 [facility] [address] [place] [address] John Hendricks MD [address] [address] 07/16/2025 10:00 AM EST Follow-Up [address] Cardiology 100 [facility] [address] [place] [address] Mabel Onofre NP 100 [facility] [address] [place] [address] documented as of this encounter Procedures * Due to [facility] law, this organization might not be sharing negative HIV tests. Procedure Name Priority Date/Time Associated Diagnosis Comments VITAMIN D, 25-HYDROXY, TOTAL, IMMUNOASSAY Routine 06/23/2024 6:00 AM EST Pneumonia due to other specified infectious organisms documented in this encounter Results * Due to [facility] law, this organization might not be [...] LAB BLOOD ORDERABLES Final R esult [facility] [address] [facility] [address] [place] [address], documented in this encounter Visit Diagnoses Diagnosis Pneumonia due to other specified infectious organisms documented in this encounter Care Teams Log Cut Off Sawyer Relationship Specialty Start Date End Date Bijal Fox NP 100 [facility] [address] [place] [address] PCP - General Family Medicine 05/30/24 documented as of this encounter
--- OUTSIDE RECORDS SUMMARY | 2025-01-28 10:31 | XMS_ITS | Encounter Summary ---
Author Organization [facility] Address [address] [place] [address] Care Team Providers Care Substation Manager Name Role Phone Brandyn Pagan MD Primary Care Provider Radha Cuevas NP Unavailable Unavailable Unknown Pcp, Non Rmg Primary Care Provider Unava ilable Encounter Details Date Type Department Care Team (Late st Contact Info) Description 09/09/2016 Orders Only [facility] [address] [place] [address] Brandyn Pagan MD Social History Tobacco Use [...] this encounter Procedures * Due to [place] [employer] law, this organization might not be sharing negative HIV tests. Procedure Name Priority Date/Time Associated Diagnosis Comments URINALYSIS, DIP ONLY STAT (All results called to provider) 09/09/2016 12:32 PM EDT Frequency of urination CULTURE, URINE, ROUTINE Routine 09/09/2016 12:28 PM EDT Frequency of urination URINALYSIS, MICROSCOPIC Routine 09/09/2016 12:28 PM EDT Frequency of urination documented in this encounter Results * Due to [place] [employer] law, this organization might not be sharing negative HIV tests. * URINALYSIS, DIP ONLY ( SITE STAT ONLY) (09/09/2016 12:32 PM EDT) COLOR (URINE) Yellow [facility] (CLIA# [id number]) APPEARANCE (URINE) Clear Clear [facility] (CLIA# [id number]) SPECIFIC GRAVITY 1.015 1.001 - 1.035 [facility] (CLIA# [id number]) PH (URINE) 6.0 5.0 - 8.0 [facility] (CLIA# [id number]) PROTEIN (URINE) Negative Neg [facility] (CLIA# [id number]) GLUCOSE (URINE) Negative Neg [facility] (CLIA# [id number]) Ketones (Urine) Negative Neg [facility] (CLIA# [id number]) BILIRUBIN (URINE) Negative Neg [facility] (CLIA# [id number]) BLOOD (URINE) Negative Neg [facility] (CLIA# [id number]) Leukocyte esterase (Urine) Negative Neg [facility] (CLIA# [id number]) NITRITE (URINE) Negative Neg [facility] (CLIA# [id number]) Urine specimen obtained by clean catch procedure (specimen) 09/09/2016 12:32 PM EDT Narrative [facility] (CLIA# [id number]) - 09/09/2016 12:36 PM EDT Micro and culture already ordered per provider. Brandyn Pagan MD LAB SAME DAY RESULT Final Resul t Performing Organization Address City/[facility]/ZIP Co de Phone Number [facility] ([facility]# [id number]) [address] [place] [address] * CULTURE, URINE, ROUTINE (09/09/2016 12:28 PM EDT) Bacteria culture (Urine) SEE NOTE [facility] Comment: CULTURE, URINE, ROUTINE MICRO NUMBER: [id number] TEST STATUS: FINAL SPECIMEN SOURCE: URINE SPECIMEN QUALITY: ADEQUATE RESULT: Multiple organisms present, each less than 10,000 CFU/mL. These organisms, commonly found on external and internal genitalia, are considered to be colonizers. No further testing performed. 09/09/2016 12:2 8 PM EDT 09/09/2016 7:38 PM EDT Narrative Resulting Agency Comment [id number] Brandyn Pagan MD LABORATORY Final Result Performing Organization Address City/[facility]/ZIP Co de Phone Number [facility] [address] [place] [address] * URINALYSIS, MICROSCOPIC (09/09/2016 12:28 PM EDT) [...] 7:38 PM EDT Narrative Resulting Agency Comment [id number] us Barndyn Pagan MD LAB SAME DAY RESULT Final Resul t [facility] [address] [place] [address] documented in this encounter Visit Diagnoses Diagnosis Frequency of urination Urinary frequency documented in this encounter Care Teams Substation Manager Relationship Specialty Start Date End Date Brandyn Pagan MD PCP - General Internal Medicine 08/07/15 02/02/17 Radha Spangler NP PCP - Backup PCP Internal Medicine 01/11/16 02/02/17 Unknown Pcp, Non Rmg PCP - General 02/03/17 documented as of this encounter
--- OUTSIDE RECORDS SUMMARY | 2025-01-28 10:31 | XMS_ITS | Patient Health Record ---
Author Organization [facility] Address [address] [place] [address] Care Team Providers Care Chalk Tester Name Role Phone Gaby Green Primary Care Provider Parth Mejia Unavailable [phone] Reason For Referral No Information Medications Medication [...] W/U Status Risk Notes Problem Essential hypertension (11296345) Essential (primary) hypertension (I10) Active confirmed Problem Mixed hyperlipidemia (716100737) Mixed hyperlipidemia (E78.2) Active confirmed Problem Secondary pulmonary hypertension (57573278) Other secondary pulmonary hypertension (I27.2) Active confirmed Problem Bradycardia (46049797) Bradycardia, unspecified (R00.1) Active confirmed Problem Dyspnea (435384568) Other forms of dyspnea (R06.09) Active confirmed Plan Of Treatment No Information Insurance Providers Payer Name Payer Address Payer Phone Subscriber Number Group Number Insured Name Patient Relationship to Insured Coverage Start Date Coverage End Date [employer] H[employer] G[employer] [place] [address] [address] [place] [address] [id number] Genie Vora Self - patient is the insured 3 Medical (General) History Medical History History ICD Code Hypertension Dyslipidemia Hx of stroke on Plavix Surgical History Surgery Date(Month/Year) Knee surgery
--- OUTSIDE RECORDS SUMMARY | 2025-01-28 10:31 | XMS_ITS | Encounter Summary ---
Author Organization [facility] Address [address] [place] [address] Care Team Providers Care Promotion Officer Name Role Phone Brandyn Pagan MD Primary Care Provider Radha Cuevas NP Unavailable Unavailable Unknown Pcp, Non Rmg Primary Care Provider Unava ilable Encounter Details Date Type Department Care Team (Late st Contact Info) Description 11/13/2015 Orders Only [facility] [address] [place] [address] Brandyn Pagan MD Social History Tobacco Use [...] encounter Procedures * Due to [place] [employer] law, this organization might not be sharing [...] encounter Results * Due to [place] [employer] law, this organization might not be sharing negative HIV tests. * (ABNORMAL) URINALYSIS, DIP ONLY ( SITE STAT ONLY) (11/13/2015 1:00 PM EDT) COLOR (URINE) YELLOW [facility] (CLIA# [id number]) APPEARANCE (URINE) CLEAR [facility] (CLIA# [id number]) SPECIFIC GRAVITY 1.015 1.001 - 1.035 [facility] (CLIA# [id number]) PH (URINE) 6.0 5.0 - 8.0 [facility] (CLIA# [id number]) PROTEIN (URINE) NEGATIVE Neg [facility] (CLIA# [id number]) GLUCOSE (URINE) NEGATIVE Neg [facility] (CLIA# [id number]) Ketones (Urine) NEGATIVE Neg [facility] (CLIA# [id number]) BILIRUBIN (URINE) NEGATIVE Neg [facility] (CLIA# [id number]) BLOOD (URINE) NEGATIVE Neg [facility] (CLIA# [id number]) Leukocyte esterase (Urine) 1+(A) [facility] (CLIA# [id number]) NITRITE (URINE) NEGATIVE Neg [facility] (CLIA# [id number]) Urine specimen obtained by clean catch procedure (specimen) 11/13/2015 1:00 PM EDT Narrative [facility] (CLIA# [id number]) - 11/13/2015 1:00 PM EDT Micro and culture already ordered per provider. us Brandyn Pagan MD LAB SAME DAY RESULT Final Resul t [facility] (CLIA# [id number]) [address] [place] [address] * CREATINE KINASE (CK), SERUM (11/13/2015 12:24 PM EDT) CPK 143 29 - 143 U/L [facility] Comment:{CREATINE KINASE, TO KENZIE {[id number]) 11/13/2015 12:2 4 PM EDT 11/13/2015 10:19 PM EDT Narrative Resulting Agency Comment [id number] us Brandyn Pagan MD LAB SAME DAY RESULT Final Resul t Performing Organization Address [facility] de Phone Number [facility] [address] [place] [address] * ALANINE AMINOTRANSFERASE (ALT), SERUM (11/13/2015 12:24 PM EDT) ALT (SGPT) 29 6 - 29 U/L [facility] Comment:{ALT {[id number]) 11/13/2015 12:2 4 PM EDT 11/13/2015 10:19 PM EDT Narrative Resulting Agency Comment [id number] Brandyn Pagan MD LAB SAME DAY RESULT Final Resul t Performing Organization Address [facility] de Phone Number [facility] [address] [place] [address] * C-REACTIVE PROTEIN (CRP) - INFLAMMATION (11/13/2015 12:24 PM EDT) C reactive protein 0.28 <0.80 mg/dL [facility] Comment: {C-REACTIVE PROTEIN {[id number]) Please be advised that patients taking Carboxypenicillins may exhibit falsely decreased C-Reactive Protein levels due to an analytical interference in this assay. 11/13/2015 12:2 4 PM EDT 11/13/2015 10:19 PM EDT Narrative Resulting Agency Comment [id number] Brandyn Pagan MD LABORATORY Final Result Performing Organization Address [facility] de Phone Number [facility] [address] [place] [address] * ERYTHROCYTE SEDIMENTATION RATE (ESR), WESTERGREN (11/13/2015 12:24 PM EDT) Sedimentation Rate [place] (ESR) 6 < OR = 30 mm/h [facility] Comment:{SED RATE BY MODIFBILLIE D JAZMINEREN {[id number]) 11/13/2015 12:2 4 PM EDT 11/13/2015 10:19 PM EDT Narrative Resulting Agency Comment [id number] Brandyn Pagan MD LAB SAME DAY RESULT Final Resul t Performing Organization Address City/[facility]/ZIP Co de Phone Number [facility] [address] [place] [address] * (ABNORMAL) CULTURE, URINE, ROUTINE (11/13/2015 12:24 PM EDT) Bacteria culture (Urine) SEE NOTE(A) [facility] Comment: {CULTURE, URINE, ROUTINE {[id number]) CULTURE, URINE, ROUTINE MICRO NUMBER: [id number] TEST STATUS: FINAL SPECIMEN SOURCE: URINE SPECIMEN [...] 10:19 PM EDT Narrative Resulting Agency Comment [id number] Brandyn Pagan MD LABORATORY Final Result Performing Organization Address [facility] Co de Phone Number [facility] [address] [place] [address] * (ABNORMAL) URINALYSIS, MICROSCOPIC (11/13/2015 12:24 PM EDT) WBC (Urine) 10-20(A) < OR = 5 /HPF [facility] Comment:{WBC {[id number]) RBC (Urine Sed) NONE SEEN < OR = 2 /HPF [facility] Comment:{RBC {[id number]) Epithelial cells.squamous (Urine sed) 0-5 < OR = 5 /HPF [facility] Comment:{SQUAMOUS EPITHELIAL CELLS {[id number]) Bacteria (Urine) NONE SEEN NONE SEEN /HPF [facility] Comment:{BACTERIA {[id number]) Hyaline casts (Urine sed) NONE SEEN NONE SEEN /LPF [facility] Comment:{HYALINE CAST {[id number]) 11/13/2015 12:2 4 PM EDT 11/13/2015 10:19 PM EDT Narrative Resulting Agency Comment [id number] us Brandyn Pagan MD LAB SAME DAY RESULT Final Resul t [facility] [address] [place] [address] documented in this encounter Visit Diagnoses Diagnosis Urinary tract infection, site unspecified Muscle ache Mylagia and myositis, unspecified Routine history and physical examination of adult Routine general medical examination at a health care facility documented in this encounter Care Teams Promotion Officer Relationship Specialty Start Date End Date Brandyn Pagan MD PCP - General Internal Medicine 08/07/15 02/02/17 Radha Spangler NP PCP - Backup PCP Internal Medicine 01/11/16 02/02/17 Unknown Pcp, Non Rmg PCP - General 02/03/17 documented as of this encounter
--- OUTSIDE RECORDS SUMMARY | 2025-01-28 10:31 | XMS_ITS | Encounter Summary ---
Author Organization [facility] Address [address] [place] [address] Care Team Providers Care Senior Safety Management Consultant Name Role Phone Bijal Fox HEAD CASHIER Primary Care Provider Encounter Details Date Type Department Care Team (Late st Contact Info) Description 07/20/2024 Orders Only [facility] [address] [place] [address] Magy Sawyer NP 100 [facility] [address] [place] [id number] Swelling of limb (Primary Dx) Social History Tobacco Use Types Packs/Day Years Used Date Smoking Tobacco: Former Smokeless Tobacco: Never Comments:: Alcohol Use Standard Drinks/Week Comments Not Currently 0 (1 standard drink = 0.6 oz pur e alcohol) [facility] Utilities Answer Date Recorded In the past 12 months has th e [employer], gas, oil, or water [employer] threatened to shut off services in your [...] Upcoming Encounters Date Type Department Care Team ([facility] Contact Info) Description 02/04/2025 2:15 PM EDT Follow-Up [facility] Nephrology 100 [facility] [address] [place] [address] John Hendricks MD [address] [address] 07/16/2025 10:00 AM EST Follow-Up [facility] 100 [facility] Cardiology 100 [facility] [address] [place] [address] Mabel Onofre NP 100 [facility] [address] [place] [address] documented as of this encounter Results * Due to [place] state law, this organization might not be sharing negative HIV tests. * N-terminal ProBrain Natriuretic Peptide - [facility] Only (08/09/2024 1:16 PM EDT) Pro-B-Type Natriuretic Peptide 203 <=900 pg/mL 08/09/2024 2:31 PM EDT [facility] Comment: RULE IN CHF >/= [...] 08/09/2024 1:33 PM EDT us Magy Sawyer HEAD CASHIER LAB BLOOD ORDERABLES Final Res ult [facility] [address] [place] [address], documented in this encounter Visit Diagnoses Diagnosis Swelling of limb- Primary documented in this encounter Care Teams Senior Safety Management Consultant Relationship Specialty Start Date End Date Bijal Fox HEAD CASHIER 100 [facility] [address] [place] [address] PCP - General Family Medicine 05/30/24 documented as of this encounter
--- OUTSIDE RECORDS SUMMARY | 2025-01-28 10:31 | XMS_ITS | Encounter Summary ---
Author Organization [facility] Address [address] [place] [address] Care Team Providers Care Billet Heater Name Role Phone Bijal Fox UNIX ADMINISTRATOR Primary Care Provider Encounter Details Date Type Department Care Team (Late st Contact Info) Description 08/13/2024 Orders Only [facility] [address] [place] [address] Magy Sawyer NP 100 [facility] [address] [place] [phone] Vitamin D deficiency (Primary Dx) Social History Tobacco Use Types Packs/Day Years Used Date Smoking Tobacco: Former Smokeless Tobacco: Never Comments:: Alcohol Use Standard Drinks/Week Comments Not Currently 0 (1 standard drink = 0.6 oz pur e alcohol) [facility] Utilities Answer Date Recorded In the past 12 months has th e [employer], gas, oil, or water [employer] threatened to shut off services in your [...] Upcoming Encounters Date Type Department Care Team ([facility] st Contact Info) Description 02/04/2025 2:15 PM EDT Follow-Up [facility] Nephrology 100 [facility] [address] [place] [address] John Hendricks MD [address] [address] 07/16/2025 10:00 AM EST Follow-Up [facility] 100 [facility] Cardiology 100 [facility] [address] [place] [address] Mabel Onofre NP 100 [facility] [address] [place] [address] documented as of this encounter Results * Due to [place] state law, this organization might not be sharing negative HIV tests. * Vitamin D, 25-Hydroxy, Total, Immunoassay (09/23/2024 1:46 PM EDT) Vitamin D 25-OH 36.10 30.00 - 80.00 ng/mL 09/24/2024 12:40 PM EDT [facility] Comment:[place] REVIEWED Blood Structure of peripheral vein / Unknown Venipuncture / Unknown 09/23/2024 1:46 PM EDT 09/23/2024 2:06 PM EDT us Magy Sawyer UNIX ADMINISTRATOR LAB BLOOD ORDERABLES Final Res ult [facility] [address] [place] [address], documented in this encounter Visit Diagnoses Diagnosis Vitamin D deficiency- Primary documented in this encounter Care Teams Billet Heater Relationship Specialty Start Date End Date Bijal Fox NP 100 [facility] [address] [place] [address] PCP - General Family Medicine 05/30/24 documented as of this encounter
--- OUTSIDE RECORDS SUMMARY | 2025-01-28 10:31 | XMS_ITS | Encounter Summary ---
Author Organization [facility] Address [address] [place] [address] Care Team Providers Care Fire Sprinkler Designer Name Role Phone Brandyn Pagan MD Primary Care Provider Unavaila Radha Fink NP Unavailable Unavailable Unknown Pcp, Non Rmg Primary Care Provider Unava ilable Encounter Details Date Type Department Care Team (Late st Contact Info) Description 09/21/2016 Orders Only [facility] [address] [place] [address] Radha Spangler NP Social History Tobacco Use [...] this encounter Procedures * Due to [place] [employer] law, this organization might not be sharing negative HIV tests. Procedure Name Priority Date/Time Associated Diagnosis Comments ALANINE AMINOTRANSFERASE (ALT), SERUM Routine 09/21/2016 1:41 PM EDT Hyperlipidemia, unspecified hyperlipidemia type LIPID PANEL WITH REFLEX TO DIRECT LDL Routine 09/21/2016 1:41 PM EDT Hyperlipidemia, unspecified hyperlipidemia type documented in this encounter Results * Due to [place] [employer] law, this organization might not be sharing negative HIV tests. * ALANINE AMINOTRANSFERASE (ALT), SERUM (09/21/2016 1:41 PM EDT) ALT (SGPT) 25 6 - 29 U/L [facility] 09/21/2016 1:41 PM EDT 09/21/2016 6:16 PM EDT Narrative Resulting Agency Comment [id number] Radha Spangler ENVIRONMENTAL DESIGNER LAB SAME DAY RESULT Final Re sult [facility] [address] [place] [address] * (ABNORMAL) LIPID PANEL WITH REFLEX TO [...] 6:16 PM EDT Narrative Resulting Agency Comment [id number] Radha Spangler NP LABORATORY Final Result [facility] [address] [place] [address] documented in this encounter Visit Diagnoses Diagnosis Hyperlipidemia, unspecified hyperlipidemia type documented in this encounter Care Teams Fire Sprinkler Designer Relationship Specialty Start Date End Date Brandyn Pagan MD PCP - General Internal Medicine 08/07/15 02/02/17 Radha Spangler NP PCP - Backup PCP Internal Medicine 01/11/16 02/02/17 Unknown Pcp, Non Rmg PCP - General 02/03/17 documented as of this encounter
--- OUTSIDE RECORDS SUMMARY | 2025-01-28 10:31 | XMS_ITS | Encounter Summary ---
Author Organization [facility] Address [address] [place] [address] Care Team Providers Care Tire Inspector Name Role Phone Brandyn Pagan MD Primary Care Provider UnavailRadha Mas NP Unavailable Unavailable Unknown Pcp, Non Rmg Primary Care Provider Unava ilable Encounter Details Date Type Department Care Team (Late st Contact Info) Description 03/09/2016 Orders Only [facility] [address] [place] [address] Brandyn Pagan MD Social History Tobacco Use [...] this encounter Procedures * Due to [place] [employer] law, this organization might not be sharing negative HIV tests. Procedure Name Priority Date/Time Associated Diagnosis Comments CLOSTRIDIUM DIFFICILE TOXIN/GDH WITH REFLEX TO PCR Routine 03/09/2016 12:41 PM EDT Diarrhea, unspecified type documented in this encounter Results * Due to [place] [employer] law, this organization might not be sharing negative HIV tests. * CLOSTRIDIUM DIFFICILE TOXIN/GDH WITH REFLEX TO PCR (03/09/2016 12:41 PM EDT) Clostridium Difficile (Stool) SEE NOTE [facility] Comment: {CLOSTRIDIUM DIFFICILE TOXIN/GDH W/REFL TO PCR {[id number]) CLOSTRIDIUM DIFFICILE TOXIN/GDH W/REFL TO PCR MICRO NUMBER: [id number] TEST STATUS: FINAL SPECIMEN SOURCE: STOOL SPECIMEN QUALITY: ADEQUATE GDH ANTIGEN: Not Detected TOXIN A AND B: Not Detected COMMENT: No toxigenic C. difficile detected 03/09/2016 12:4 1 PM EDT 03/09/2016 7:22 PM EDT Narrative Resulting Agency Comment [id number] Brandyn Pagan MD LABORATORY Final Result [facility] [address] [place] [address] documented in this encounter Visit Diagnoses Diagnosis Diarrhea, unspecified type documented in this encounter Care Teams Tire Inspector Relationship Specialty Start Date End Date Brandyn Pagan MD PCP - General Internal Medicine 08/07/15 02/02/17 Radha Spangler NP PCP - Backup PCP Internal Medicine 01/11/16 02/02/17 Unknown Pcp, Non Rmg PCP - General 02/03/17 documented as of this encounter
--- OUTSIDE RECORDS SUMMARY | 2025-01-28 10:32 | XMS_ITS | Clinical Summary ---
Author Organization [facility] Address [address] [place] [address] Care Team Providers Care Customer Sales Advisor Name Role Phone Bijal Fox SLIPPER MAKER Primary Care Provider [phone] Allergies Active Allergy Reactions Criticality Noted Date Comments Jzyynlu-Spe-Ffk Reductase Inhibitors Muscle Pain Medium Per pt [...] PF (XYLOCAINE) 1% (10 mg/mL) injection 3 mLIndications:Framing Inspector homer left shoulder pain 3 mL injection One-time injection 12/30/2024 12/30/2024 Ended triamcinolone acetonide (KENALOG-40) injection 80 mgIndications:Framing Inspector homer left shoulder pain 80 mg [...] on admission by SpO2 88% requiring 3-4L SLIPPER MAKER. Tachypnea with RR increased to 22 RPM. She is not home-O2 dependent. -Wean supplemental O2 as tolerated, presently om room air -Taper steroids -Continue supportive therapy with nebulized bronchodilators, ICS and multiple antitussives. -Avoid increasing Tramadol in setting of COPD/asthma. Assessment & Plan (06/23/2024 4:18 PM EST): Acute Resp Failure: Evidenced on admission by SpO2 88% requiring 3-4L SLIPPER MAKER. Tachypnea with RR increased to 22 RPM. She is not home-O2 dependent. Presently weaned to 2L SLIPPER MAKER, but still coarse with rhonchus cough. Reduced IV steroids as no wheezing on exam and she appears tearful and depressed. Continue supportive therapy with nebulized bronchodilators, ICS and multiple antitussives. Avoid increasing Tramadol in setting of COPD/asthma. Assessment & Plan (06/22/2024 5:42 PM EST): Acute Resp Failure: Evidenced on admission by SpO2 88% requiring 3-4L SLIPPER MAKER. Tachypnea with RR increased to 22 RPM. She is not home-O2 dependent. Presently weaned to 2L SLIPPER MAKER, but still coarse with rhonchus cough. Reduced [...] Team Description 01/08/2025 10:00 AM EDT Follow-Up [address] Cardiology [address] [place] [id number] Mabel Onofre NP Paroxysmal atrial fibrillation (HCC) (Primary Dx); Diastolic heart failure, unspecified HF chronicity (HCC); Benign hypertensive heart disease without congestive heart failure; BILLIE (obstructive sleep apnea) 12/30/2024 10:00 AM EDT Follow-Up [facility] [address] [place] [phone] Marvin, AYAD Gil Chronic left shoulder pain (Primary Dx) 11/25/2024 12:44 PM EDT - 11/26/2024 11:18 AM EDT Hospital Encounter [facility] Emergency Department [address] [place] [id number] Margarita Estrella DO Jia, Leon Zuozhen, MD Injury of right ankle, initial encounter (Primary Dx); Longstanding persistent atrial fibrillation (HCC) Discharge Disposition: Half-Way Facility (03) 11/12/2024 7:30 AM EDT Follow-Up [address] Cardiology [address] [place] [id number] Mabel Onofre NP Paroxysmal atrial fibrillation (HCC) [...] has e electric, gas, oil, or water [employer] threatened to shut off services in your [...] Info) Description 02/04/2025 2:15 PM EDT Follow-Up [facility] Nephrology [address] [place] [address] [address] [place] [address] John Hendricks MD [id number] [place] [address] 07/16/2025 10:00 AM EST Follow-Up [address] Cardiology [address] [place] [id number] Mabel Onofre NP [address] [place] [address] [address] [place] [address] Health Maintenance Due Date Last Done Comments [...] this topic Medical Devices Implanted Type Area Railroad Track Repair Supervisor Device Identifier Shelf Expiration Date Model / Serial / Lot Lens Intraocular [employer] Ultraviolet Filtering 16.5 Diopter With Sy60wf [place] - [id number] - [id number] Implanted:Qty: 1 on 09/30/2024 by Nima Solorio MD at [facility] Lens NAEL 07/26/2026 CNA0T0.165 / [id number] / Lens Intraocular [employer] Ultraviolet Filtering 17.0 Diopter With Sy60wf [place] - [id number] - [id number] Implanted:Qty: 1 on 10/21/2024 by Nima Solorio MD at [facility] Lens Right: Eye NAEL 06/18/2026 CNA0T0.170 / [id number] / Procedures * Due to [place] state law, this organization might not be sharing negative HIV tests. Procedure Name Priority Date/Time Associated Diagnosis Comments CA ARTHROCENTESIS ASPIR&/INJ MAJOR JT/BURSA W/O US Routine [...] to Health Maintenance Results * Due to [place] state law, this organization might not be sharing negative HIV tests. * CA ARTHROCENTESIS ASPIR&/INJ MAJOR JT/BURSA W/O US (12/30/2024 [...] Patient's understanding of procedure matches consent: Yes [place] Protocol: Procedure consent matches procedure scheduled: Yes [...] Laterality Modality Lower Extremities, Foot [facility] 11/25/2024 12:2 4 PM EDT [...] to obtain the completed interpretation. Workstation ID: [id number] Narrative 11/25/2024 12:36 PM EDT COMPARISON: There are no prior studies available for comparison at this time. Resulting Agency Comment [id number] Procedure Note Yury Vazquez MD - 11/25/2024 [...] possible to obtain thecompleted interpretation. Workstation ID: [id number] us Margraita Vysvicki DO IMG XR PROCEDURES Final Res ult * ECG 12 lead (11/12/2024 7:46 AM EDT) Ventricular Rate EKG 78 BPM MUSE EKG QRS Interval 122 ms MUSE EKG QT Interval 402 ms MUSE EKG QTC Interval 458 ms MUSE EKG R [place] 24 degrees MUSE EKG T Wave [place] 48 degrees MUSE EKG 11/12/2024 7:46 AM [...] PM EDT Genie Vora Exam Date: 10/07/[address] [address] INDICATIONS Technical callback for right breast cc [...] interpretation. Adela Graham MD Resulting Agency Comment [id number] us Magy Sawyer NP IMG BI PROCEDURES Final Result * Microalbumin, Random Urine with Creatinine (09/23/2024 1:46 PM EDT) Creatinine, Urine 29 mg/dL 09/23/2024 3:28 PM EDT [facility] Microalbumin, Urine 1 <=20 mg/L 09/23/2024 3:28 PM EDT [facility] Microalb/Creat Ratio, Random Urine 3.4 1.3 - 30.0 mg/g 09/23/2024 3:28 PM EDT [facility] Urine Voided urine specimen / Unknown Non-Blood Collection / Unknown 09/23/2024 1:46 PM EDT 09/23/2024 2:42 PM EDT John Hendricks MD LAB URINE ORDERABLES Final Resul t [facility] [address] [place] [address] [address] [place] [address], * (ABNORMAL) Renal Function Panel (09/23/2024 1:46 PM EDT) NA 142 136 - 145 mmol/L 09/23/2024 2:52 PM EDT [facility] K 4.5 3.5 - 5.1 mmol/L 09/23/2024 2:52 PM EDT [facility] Cl 105 98 - 109 mmol/L 09/23/2024 2:52 PM EDT [facility] CO2 27 22 - 32 mmol/L 09/23/2024 2:52 PM EDT [facility] Anion Gap 15 >=0 09/23/2024 2:52 PM EDT [facility] Glucose 71 60 - 99 mg/dL 09/23/2024 2:52 PM EDT [facility] BUN 25(H) 8 - 23 mg/dL 09/23/2024 2:52 PM EDT [facility] Creatinine 1.17(H) 0.50 - 1.12 mg/dL 09/23/2024 2:52 PM EDT [facility] Calcium 9.9 8.4 - 10.4 mg/dL 09/23/2024 2:52 PM EDT [facility] Phosphorus 3.0 2.5 - 4.5 mg/dL 09/23/2024 2:52 PM EDT [facility] Albumin 4.2 3.5 - 5.0 g/dL 09/23/2024 2:52 PM EDT [facility] eGFR 49(L) >=60 mL/min/1. 73m2 09/23/2024 2:52 PM EDT [facility] Comment:The estimated glomer ular filtration [...] MD LAB BLOOD ORDERABLES Final Resul t [facility] [address] [place] [address] [address] [place] [address], * CT Chest PE (06/15/2024 11:49 PM [...] to obtain the completed interpretation. Workstation ID: [id number] Up-to-date CT equipment and radiation dose reduction [...] possible to obtain thecompleted interpretation. Workstation ID: [id number] Up-to-date CT equipment and radiation dose reduction [...] were monitored continuously. The CFQ-160L Olympusserial # [id number] was introduced through the anus and advanced [...] Most Recently Relevant to Health Maintenance Insurance [facility] Advance Directives Documents on File Type Date Recorded Patient Cutter Barrel Drum Expl anation Advance Directive 08/06/2013 12:00 AM [...] 1:19 AM 06/04/2024 5:36 PM Care Teams Customer Sales Advisor Relationship Specialty Start Date End Date Bijal Fox, SLIPPER MAKER [address] [place] [id number] PCP - General Family Medicine 05/30/24
--- OUTSIDE RECORDS SUMMARY | 2025-01-28 10:32 | XMS_ITS | Patient Health Record ---
Author Organization [facility], [facility]. Address [address] [place] [phone] Care Team Providers Care Gi Physician Name Role Phone Noe Crum Primary Care Provider [phone] Noe Crum D.O. Unavailable [phone] Allergies Allergen (clinical drug ingredient) Drug/Non Drug Allergy documented on EMR Reaction Allergy Type Onset Date Status baclofen Baclofen hallucinations Drug Allergy Ac tive Substance with 7-ajpbxie-0-methyl glutaryl-coenzyme A reductase inhibitor mechanism of action (substance) Statins muscle weakness/pain Drug Allergy A ctive Results Component Value Reference Range Notes Lipid Panel Reviewed date:04/03/2024 08:08:37 AM Interpretation: Performing [facility], Phone - [phone], Director - [place] Notes/Report: Cholesterol, Total 249 100-199 mg/dL Triglycerides 119 0-149 mg/dL HDL Cholesterol 89 >39 mg/dL VLDL Cholesterol Anuj 20 5-40 mg/dL LDL Chol Calc ([facility]) 140 0-99 mg/dL CMP Reviewed date:04/03/2024 08:08:37 AM Interpretation: Performing Lab:[facility], [address] [facility], Phone - [phone], Director - [place] Notes/Report: Glucose 89 70-99 [...] Reviewed date:04/03/2024 08:08:37 AM Interpretation: Performing Lab:[facility], [facility] [address] [facility], Phone - [phone], Director - [place] Notes/Report: WBC 5.6 3.4-10.8 [...] % Immature Grans (Abs) 0.0 0.0-0.1 x10E3/uL Hemoglobin A1c Reviewed date:04/03/2024 08:08:37 AM Interpretation: Performing Lab:[facility], [facility] [address] [facility], Phone - [phone], Director - [place] Notes/Report: Hemoglobin A1c 5.9 4.8-5.6 % . Prediabetes: 5.7 - 6.4 Diabetes: >6.4 Glycemic control for adults with diabetes: <7.0 PDF Report1 [facility] Cardiovascular Risk Assessme nt Reviewed date:04/03/2024 08:08:37 AM Interpretation: Performing Lab:[facility], [address] [facility], Phone - [phone], Director - [place] Notes/Report: Interpretation Note Supplemental report is available. PDF Not applicable [facility] Reviewed date:04/03/2024 08:08:37 AM Interpretation: Performing Lab:[facility], [address] [facility], Phone - [phone], Director - [place] Notes/Report: Interpretation Note Supplemental report is available. PDF . Reason For Referral Reason 02/05/24 DX: M54.50 Referral Organization [facility], [facility]. Referring Provider First Name Noe Referring Provider Last Name Radames Referring Provider Speciality Internal M edicine Referred Provider Ruperto Lee Referred Provider Specialty Pain Medicin e Procedure 1 televisit EST INTERM EDIATE OFFICE VISIT (83821) Procedure 2 X-RAY EXAM OF LOWER SPINE (35595) Procedure 3 X-RAY EXAM OF LOWER SPINE (25692) Procedure 4 X-RAY EXAM OF LOWER SPINE (60111) Procedure 5 X-RAY EXAM OF TRUNK SPINE (38863) Procedure 6 Trigger Point 1-2 Mu scles (58634) Procedure 7 Trigger Point 3+ Mus cles (18069) Procedure 8 TRIAMCINOLONE 10 MG/ IM (J3301) Procedure 9 Dexamethasone 4MG/ML (J1100) Referral Priority Routine Referral Appointment Date 02/05/2024 Reason 02/13/24 DX: M54.2 Referral Organization Medical [facility]. Referring Provider First Name Noe Referring Provider Last Name Radames Referring Provider Speciality Internal M edicine Referred Provider Shawn [facility] Referred Provider Specialty Orthopedic S urgery Procedure 1 televisit EST INTERM EDIATE OFFICE VISIT (87200) Procedure 2 X-RAY EXAM OF NECK S PINE (18630) Procedure 3 X-RAY EXAM OF NECK S PINE (09622) Procedure 4 Trigger Point 1-2 Mu scles (05869) Procedure 5 Trigger Point 3+ Mus cles (26847) Procedure 6 Dexamethasone 4MG/ML (J1100) Procedure 7 TRIAMCINOLONE 10 MG/ IM (J3301) Referral Priority Routine Referral Appointment Date 02/13/2024 Reason 02/27/24 DX: G89.4 Z 79.891 Referral Organization [facility] Referring Provider First Name Noe Referring Provider Last Name Radames Referring Provider Speciality Internal M edicine Referred Provider Shannan [facility], C had Referred Provider Specialty Pain Medicin e Procedure 1 Televisit GATEKEEPER COMPREH ENSIVE VISIT (68343) Procedure 2 DRUG TEST PRSMV DIR OPT OBS (91682) Referral Priority Routine Referral Appointment Date 02/27/2024 Reason 02/20/24 DX: M96.1 Referral Organization [facility] Referring Provider First Name Noe Referring Provider Last Name Radames Referring Provider Speciality Internal edicine Referred Provider Kelley, Radiology Ctr Referred Provider Specialty Radiology Procedure 1 MRI LUMBAR SPINE W/O DYE (75802) Referral Priority Routine Referral Appointment Date 02/20/2024 Reason 03/01/24 DX: M96.1 M 43.16 Referral Organization [facility] Referring Provider First Name Noe Referring Provider Last Name Radames Referring Provider Speciality Internal edicine Referred Provider Shawn [facility] Referred Provider Specialty Orthopedic S urgery Procedure 1 televisit EST INTERM EDIATE OFFICE VISIT (34609) Referral Priority Routine Referral Appointment Date 03/01/2024 Reason 03/12/24 inj M54.1 6 Referral Organization [facility] Referring Provider First Name Noe Referring Provider Last Name Radames Referring Provider Speciality Internal edicine Referred Provider Shannan [facility], C had Referred Provider Specialty Pain Medicin e Procedure 1 NJX INTERLAMINAR LMB R/SAC (03425) General Notes [facility] 024 04:09:56 PM EDT > IRASEMA Referral Priority Routine Referral Appointment Date 03/12/2024 Reason 03/12/24 DX: M54.16 03/11/24 CANCELLED p/PATIENT . JPLACE Referral Organization [facility] Referring Provider First Name Noe Referring Provider Last Name Radames [facility] Referred Provider Ruperto Lee Referred Provider Specialty Pain Medicin e Procedure 1 NJX INTERLAMINAR LMB R/SAC (87835) Referral Priority Routine Referral Appointment Date 03/12/2024 Reason 02/22/24 start DX: I 10 Referral Organization [facility] Referring Provider First Name Noe Referring Provider Last Name Radames Ref[facility] Referred Provider Idris, Home [facility] Referred Provider Specialty Other Medica l Care Procedure 1 SRVC PHYS TRPST GRACE HLTH EA 15 MIN (G0151) Procedure 2 SRVC PT ASSIST HH/HO SPICE EA 15 MIN (G0157) Referral Priority Routine Referral Appointment Date 02/22/2024 Reason 04/02/24 DX: M54.50 75656. 84310. 30764. 89751. Referral Organization [facility] Referring Provider First Name Noe Referring Provider Last Name Radames Ref[facility] Referred Provider Shawn [facility] Referred Provider Specialty Orthopedic S urgery Referral Priority Routine Referral Appointment Date 04/02/2024 Reason 04/03/24 DX: G89.4 Z 79.891 Referral Organization [facility], [facility]. Referring Provider First Name Noe Referring Provider Last Name Radames Referring [facility] Referred Provider Shannan Jacinto Mgmnt, C had Referred Provider Specialty Pain Medicin e Procedure 1 Televisit EST LIMITE D OFFICE VISIT (22827) Procedure 2 televisit EST INTERM EDIATE OFFICE VISIT (79572) Procedure 3 DRUG TEST PRSMV DIR OPT OBS (29975) Referral Priority Routine Referral Appointment Date 04/03/2024 Reason 04/05/24 DX: M25.512 62396. 76702. 52398. J1100 x8. J3301 x8. Referral Organization [facility], [facility]. Referring Provider First Name Noe Referring Provider Last Name Radames Referring [facility] Referred Provider Tony Samuel [facility] Bone-Joint Denny Referred Provider Specialty Orthopedic S urgery Referral Priority Routine Referral Appointment Date 04/05/2024 Reason 04/11/24 DX: M54.16 Referral Organization [facility] Referring Provider First Name Noe Referring Provider Last Name Radames Referring Provider Speciality Internal edicine Referred Provider [facility], C had Referred Provider Specialty Pain Medicin e Procedure 1 NJX INTERLAMINAR LMB R/SAC (48976) Referral Priority Routine Referral Appointment Date 04/11/2024 Reason 05/10/24 DX: G89.4 9 9213/4, 57886. Referral Organization [facility]. Referring Provider First Name Noe Referring Provider Last Name Guero Referring Provider [facility] Referred Provider [facility], C had Referred Provider Specialty Pain Medicin e Referral Priority Routine Referral Appointment Date 05/10/2024 Reason 05/27/2024 DX: M54.5 0 64449. Referral Organization [facility]. Referring Provider First Name Neo Referring Provider Last Name Salvadordominique Referring Provider [facility] Referred Provider Ruperto Lee Referred Provider [...] Methocarbamol 750 MG TAKE 1 TABLET BY [facility] EVERY 8 HOURS; Duration: 30 days [...] Risk Notes Problem Lumbosacral spondylosis without myelopathy (41327389) Spondylosis of lumbar region without myelopathy or radiculopathy (M47.816) Active confirmed Problem Mixed hyperlipidemia (218078108) Mixed hyperlipidemia (E78.2) Active confirmed Problem Generalized anxiety disorder (53445112) Generalized anxiety disorder (F41.1) Active confirmed Problem Hypothyroidism (39317363) Other specified hypothyroidism (E03.8) Active confirmed Problem Autoimmune thyroiditis (71021752) Autoimmune thyroiditis (E06.3) Active confirmed Problem Vitamin D deficiency (02657396) Vitamin D deficiency (E55.9) Active confirmed Problem Osteoarthritis of knee (714032772) Primary osteoarthritis of left knee (M17.12) Active confirmed Problem Opioid dependence (04968668) Opioid dependence, uncomplicated (F11.20) Active confirmed Problem Primary insomnia (5327767) Primary insomnia (F51.01) Active confirmed Problem Chronic pain (30369678) Other chronic pain (G89.29) Active confirmed Problem Chronic kidney disease due to hypertension (601738822761798) Hypertensive chronic kidney disease with stage 1 through stage 4 chronic kidney disease, or unspecified chronic kidney disease (I12.9) Active confirmed Problem Typical atrial flutter (560899478) Typical atrial flutter (I48.3) Active confirmed Problem Arthritis of left knee (4839766000087115) Other specified arthritis, left knee (M13.862) Active confirmed Problem Osteoarthritis of knee (454934355) Unilateral primary osteoarthritis, left knee (M17.12) Active confirmed Problem Atrial flutter (9281330) Atrial flutter (I48.92) Active confirmed Problem Benign hypertension (38037297) Benign hypertension (I10) Active confirmed Problem Tobacco dependence in remission (922937934) Tobacco abuse, in remission (F17.201) Active confirmed Problem Morbid obesity (384021191) Morbid obesity due to excess calories (E66.01) Active confirmed Problem Arthralgia of the pelvic region and thigh (985985215) Right hip pain (M25.551) Active confirmed Problem Primary hypertension (69437056) Primary hypertension (I10) Active confirmed Problem Atrial fibrillation (08024204) Episodic atrial fibrillation (I48.0) Active confirmed Problem Lumbar post-laminectomy syndrome (449029519) Lumbar post-laminectomy syndrome (M96.1) Active confirmed Problem Lumbosacral spondylosis without myelopathy (00940177) Osteoarthritis of spine with radiculopathy, lumbar region (M47.26) Active confirmed Problem Body mass index 40+ - severely obese (853288173) BMI 50.0-59.9, adult (Z68.43) Active confirmed Problem Localized, primary osteoarthritis of the shoulder region (725599046) 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) Active confirmed Problem Atrial fibrillation (81097703) Paroxysmal a-fib (I48.0) Active confirmed Problem Atrial flutter (7772842) Atrial flutter, unspecified type (I48.92) Active confirmed Problem Cervical spondylosis without myelopathy (305767552) Osteoarthritis of spine with radiculopathy, cervical region (M47.22) Active confirmed Problem Osteoarthritis of knee (753868587) Osteoarthritis of knee (M17.9) Active confirmed Problem Peripheral venous insufficiency (69310399) Venous insufficiency of both lower extremities (I87.2) Active confirmed Problem Localized, primary osteoarthritis of the pelvic region and thigh (008191910) Primary osteoarthritis of both hips (M16.0) Active confirmed Problem Flexural atopic dermatitis (675112117) Flexural atopic dermatitis (L20.89) Active confirmed Problem Neurogenic claudication (339484173) Spinal stenosis of lumbar region with neurogenic claudication (M48.062) Active confirmed Problem Pes planus (77971025) Pes planus of left foot (M21.42) Active confirmed Problem Chronic obstructive pulmonary disease (79934354) COPD (chronic obstructive pulmonary disease) case management patient (J44.9) Active confirmed Problem Chronic kidney disease stage 3A (disorder) (869602828) Chronic kidney disease, stage 3a (N18.31) Active confirmed Problem Gastroesophageal reflux disease with esophagitis (disorder) (632335016) Gastroesophageal reflux disease with esophagitis without hemorrhage (K21.00) Active confirmed Problem Primary osteoarthritis (986390877) Primary osteoarthritis involving multiple joints (M15.9) Active confirmed Encounters Encounter Location Date Provider Diagnosis [facility] [address] [id number] 02/21/2024 [facility] discharge follow-up Z09 ; Other chronic pain [...] of lumbar region with neurogenic claudication M48.062 [facility] [address] [id number] 04/08/2024 Noe Crum Colon cancer screeni ng [...] region with neurogenic claudication M48.062 [facility] [address], [place] [id number] 01/31/2024 Noe Talanga [facility] [address], [place] [id number] 02/01/2024 Noe Talanga [facility] [address], [place] [id number] 02/06/2024 Noe Talanga [facility] [address], [place] [id number] 02/09/2024 Noe Talanga Lumbar post-laminect olamide syndrome M96.1 [facility], [facility]. [address] [place] [address], [place] [id number] 02/14/2024 Noe Gueroa Other chronic pain G89.29 [facility] [address] [place] [address], [place] [id number] 02/19/2024 Noe Talanga [facility] [address], [place] [id number] 02/19/2024 Noe Talanga [facility] [address], [place] [id number] 02/22/2024 Noe Talanga [facility] [address], [place] [id number] 02/22/2024 Noe Talanga [facility] [address], [place] [id number] 02/26/2024 Noe Talanga [facility] [address], [place] [id number] 03/04/2024 Noe Talanga [facility] [address], [place] [id number] 03/05/2024 Noe Talanga [facility] [address], [place] [id number] 03/11/2024 Noe Talanga [facility] [address], [place] [id number] 03/11/[address] [place] [address], [facility]. [address] [place] [address], [place] [id number] 03/13/2024 [facility], [facility]. [address] [place] [id number] 03/22/2024 [facility], [facility]. [address] [place] [id number] 03/26/2024 [facility], [facility]. [address] [place] [address], [place] [id number] 04/04/2024 [facility], [facility]. [address] [place] [address], [place] [id number] 04/05/2024 [facility], [facility]. [address] [place] [address], [place] [id number] 04/05/2024 [facility], [facility]. [address] [place] [address], [place] [id number] 04/08/2024 [facility], [facility]. [address] [place] [id number] 04/10/2024 [facility], [facility]. [address] [place] [id number] 05/02/2024 [facility], [facility]. [address] [place] [id number] 05/06/2024 [facility], [facility]. [address] [place] [id number] 05/30/2024 Noe Jacka Primary insomnia F51 .01 and Paroxysmal a-fib I48.0 [facility], [facility]. [address] [place] [id number] 08/09/2024 [facility], [facility]. [address] [place] [id number] 11/20/2024 Noe Crum Assessments Encounter Date Diagnosis (ICD Code) Assessment Notes Treatment Notes Treatment Clinical Notes Section Notes 02/14/2024 Other chronic pain (ICD-10 - G89.29) 04/08/2024 Colon cancer screening (ICD-10 - Z12.11) 04/08/2024 Other chronic pain (ICD-10 - G89.29) Educated on Tylenol prn and daily stretches 02/21/2024 Hospital discharge follow-up (ICD-10 - Z09) 02/21/2024 Other chronic pain (ICD-10 - G89.29) Educated on Tylenol prn and daily stretches 02/09/2024 Lumbar post-laminectomy syndrome (ICD-10 - M96.1) 05/30/2024 Primary insomnia (ICD-10 - F51.01) 05/30/2024 Paroxysmal a-fib (ICD-10 - I48.0) 02/21/2024 Primary osteoarthritis involving multiple joints (ICD-10 - M15.9) Educated on Tylenol prn and daily stretches 04/08/2024 Primary osteoarthritis involving multiple joints (ICD-10 [...] E06.3) 02/21/2024 Autoimmune thyroiditis (ICD-10 - E06.3) 04/08/2024 Gastroesophageal reflux disease with esophagitis without hemorrhage (ICD-10 - K21.00) Educated on acid reflux diet. 02/21/2024 Gastroesophageal reflux disease with esophagitis without [...] healthy diet, weight loss, and exercise. 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 Gave pt [employer] phone number., Virtual visit real time [...] Cervial Spine 03/14/2023 MAMMO SCR DDI BI 11/08/2023 MAMMO SCR DDI BI 05/31/2022 VL DUP VEIN SCAN LT 07/11/2022 MRI [...]
--- OUTSIDE RECORDS SUMMARY | 2025-01-28 10:32 | XMS_ITS | Patient Health Record ---
Author Organization [facility] Address [address] [place] [address] Care Team Providers Care Industrial Education Instructor Name Role Phone ARI VANG DO Primary Care Provider Jayashree Burr Unavailable [phone] Reason For Referral No Information Medications Medication [...] Status W/U Status Risk Notes Problem Overweight (275434010) Overweight (E66.3) Active confirmed Problem Left upper quadrant pain (415966942) LUQ pain (R10.12) Active confirmed Problem Rectal bleeding (87923644) Rectal bleeding (K62.5) Active confirmed Problem Family History of Cancer of Colon (Situation) (244728648) Family history of colon cancer (Z80.0) Active confirmed Problem Gastroesophageal reflux disease (disorder) (120429504) Chronic GERD (K21.9) Active confirmed Problem Chronic diarrhea (607520887) Chronic diarrhea (K52.9) Active confirmed Problem Long-term current use of drug therapy (351997748) Encounter for medication review (Z79.899) Active confirmed Problem Former smoker (1921509) Former smoker (Z87.891) Active confirmed Problem Long-term current use of drug therapy (973213346) Antiplatelet or antithrombotic long-term use (Z79.02) Active confirmed Plan Of Treatment Pending Test Test Name Order Date COLON/BX 02/06/2020 EGD 02/06/2020 Insurance Providers Payer Name Payer Address Payer Phone Subscriber Number Group Number Insured Name Patient Relationship to Insured Coverage Start Date Coverage End Date [place] [address] [id number] Genie Vora Self - patient is the insured Medical (General) History Medical History History ICD Code stroke (?2013) Hypothyroidism hypercholesterolemia hemorrhoids spinal stenosis ulcers GERD Surgical History Surgery Date(Month/Year) colonoscopy and egd 2014 back surgery x 5 hysterectomy cholecystectomy hemorrhoidectomy right hip replacement bladder suspension
== END 2025-01-27 09:09 | disposition home or self-care (01) ==
LOC: HO.HOSX 09:08
PROVIDERS: Visit Provider Physician Assistant
DX: Z47.89 Encounter for other orthopedic aftercare (principal); Z98.1 Arthrodesis status
CPT/HCPCS: 72110; 99212

== ENCOUNTER 2025-01-27 10:08 | Outpatient (AMB) | payer MEDICARE, SELFPAY ==
--- OUTSIDE RECORDS SUMMARY | 2023-09-27 11:00 | XMS_ITS ---
Author Organization [employer] Address [address] [facility] [address] [place], [place] [address] Care Team Providers Care In Flight Crew Member Name Role Phone Noe Crum DO Primary Care Provider Hernan Monae Unavailable [phone] REASON FOR VISIT ECHO review r/s APPT, NEW BP MEDS NOT WORKING DIZZY Medications Medication SIG (Take, Route, Frequency, Duration) Notes Start Date End Date Status Synthroid 100 MCG 1 tablet in the morn ing on an empty stomach Orally Once a day Active Atorvastatin Calcium 10 MG Oral Active dilTIAZem HCl ER Coated Beads 120 MG 1 capsule Oral Once a day Ac tive Eliquis 5 MG 1 tablet Orally twic e a day Active Gabapentin 100 MG TAKE 2 CAPSULES 3 TI MES A DAY Oral; Duration: 90 Days Active Cymbalta 60 MG 1 capsule Orally Onc e a day Active cloNIDine HCl 0.1 MG 1 tablet Orally Onc e a day Active Flecainide Acetate 100 MG 1 Tablet Orall y every 12 hrs; Duration: 30 days Active Losartan Potassium 50 MG 1.5 tablet Oral ly Once a day; Duration: 30 days Active Encounters Encounter Location Date Provider Diagnosis [facility] [address] [facility] [address] [place] [address] 09/27/2023 Hernan Donaldson Episodic atrial fibrillation I48.0 ; Pre-procedural cardiovascular examination Z01.810 ; Unspecified atrial flutter I48.92 ; Essential (primary) hypertension I10 ; Mixed hyperlipidemia E78.2 and Hypothyroidism, unspecified E03.9 Assessments Encounter Date Diagnosis (ICD Code) Assessment Notes Treatment Notes Treatment Clinical Notes Section Notes 09/27/2023 Episodic atrial fibrillation (ICD-10 - I48.0) 04/2022 [facility] w afib, started flecainide 04/2022 echo lvef 55% w mild MR, RVSP 40 ecg sr, qrsd 100 07/06/23 EKG: SR, HR 75, QRS 114, QTc 432 Increase occurrence of symptoms Inc. flecainide Continue eliquis 09/27/2023 Pre-procedural cardiovascular examination (ICD-10 - Z01.810) Requesting clearance for L knee replacement for this monday ecg nsr, 1st deg AVB, qrs 106 07/06/23 EKG: SR, HR 75, QRS 114, QTc 432 06/2023 ECHO: EF 55-60%, mild MR, mild TR, RVSP 41, mild ND Overall low cardiovascular risk for an overall intermediate noncardiac procedure. Hold eliquis for 24-48 hours prior and resume within 24-48 hours post surgery. May proceed with L knee replacement 09/27/2023 Unspecified atrial flutter (ICD-10 - I48.92) 10/2021 afl/avnrt ablation by dr austin azar 10/2021 echo 55-60% mild mr/tr 10/2021 stress no sig ischemia cont ac, diltiazem [address] Homar Azar - EP 09/27/2023 Essential (primary) hypertension (ICD-10 - I10) cont to monitor at home Encouraged Diet and lifestyle modifications Goal BP <130/80 BP Log - Requiring Clonidine for SBP 150's - 160's daily Increase Losartan BP/HR log on next visit 09/27/2023 Mixed hyperlipidemia (ICD-10 - E78.2) intolerant to statin, consider repatha 09/27/2023 Hypothyroidism, unspecified (ICD-10 - E03.9) cont synthroid Plan Of Treatment Medication Medication Name Sig Start Date Stop Date Notes Atorvastatin Calcium 10 MG Oral dilTIAZem HCl ER Coated Bead s 120 MG 1 capsule Oral Once a day Eliquis 5 MG 1 tablet Orally twic e a day cloNIDine HCl 0.1 MG 1 tablet Orally Once a day Flecainide Acetate 100 MG 1 Tablet Orall y every 12 hrs; Duration: 30 days Losartan Potassium 50 MG 1.5 tablet Oral ly Once a day; Duration: 30 days Treatment Notes Assessment Notes Episodic atrial fibrillation 04/2022 [facility] w afib, started flecainide 04/2022 echo lvef 55% w mild MR, RVSP 40 ecg sr, qrsd 100 07/06/23 EKG: SR, HR 75, QRS 114, QTc 432 Pre-procedural cardiovascular examinatio n Requesting clearance for L knee replacement for this monday ecg nsr, 1st deg AVB, qrs 106 07/06/23 EKG: SR, HR 75, QRS 114, QTc 432 06/2023 ECHO: EF 55-60%, mild MR, mild TR, RVSP 41, mild ND Unspecified atrial flutter 10/2021 afl/avnrt ablation by dr austin azar 10/2021 echo 55-60% mild mr/tr 10/2021 stress no sig ischemia Essential (primary) hypertension cont to monitor at home Progress Notes * Genie VORADOB:[birth year] (74 yo F)Acc No.[id number]:09/27/2023 Progress Notes Patient: Genie ZIMMERMAN Provider: Bernadette Donaldson MD, [facility], [facility]1950 A ge:73 Y S ex:Female Date:09/27/2023 Address:[address] [place] [address] [address] [place] [address] Pcp:Noe Crum DO Subjective: * Chief Complaints: * 1 . ECHO review r/s APPT, NEW BP MEDS NOT WORKING DIZZY. * HPI: T ransition of Care: * [age] yo female with pmh aflutter s/p ablation, stroke without residual neurological deficits, tobacco abuse, cervical stenosis, cervical osteoarthritis, hypertension, hypothyroidism and obesity, braxton on cpap echo: ef 60-65%, mild mr/tr stress: no ischemia EPS w/ abl of AFL, R AT, and AVNRT, Eliquis started, BB stopped. started diltiazem 120. Avoid AAD for now per EP AFlutter ablation done by Dr Austin azar at [facility] 1 06/2021 echo lvef 55% w mild MR, RVSP 40 e cg sr, qrsd 100 1 06/2021 [facility] w afib, started flecainide e cg nsr, 1st deg AVB, qrs 106 EKG: SR, HR 75, QRS 114, QTc 432 ECHO: EF 55-60%, mild MR, mild TR, RVSP 41, mild ND E cho Review: F eeling more episodes of Afib with fullness and exhaustion P CP had started patient on BB and patient intolerant with exhaustion and dizziness L eft knee replaced without complication D enies chest pain, dyspnea D enies Lightheadedness, dizziness D enies syncope or falls D enies claudication c ant tolerate statins due to myalgias D oes not tolerate Zetia due to DAWN and diarrhea B P well controlled at home and in office 122/70 A ctivity: walks 3 miles daily without limitations f amhx: dad ich on coumadin, mother dementia s ochx: stopped drinking caffeine, prev tobacco quit 15 yrs ago, occ etoh. * ROS: G eneral / Constitutional: Patient denies f atigue, fever. E NT: Patient denies s ore throat. R espiratory: Patient denies c ough, hemoptysis, pain with inspiration, shortness of breath with exertion, wheezing. C ardiovascular: Comments S [facility] for details. G astrointestinal: Patient denies a bdominal pain, blood in stool, change in bowel habits, constipation, diarrhea, nausea, vomiting. M usculoskeletal: Patient denies j oint stiffness, painful joints, weakness.? * Medical History: * Medications: T aking Eliquis 5 MG Tablet 1 tablet Orally twice a day , Taking dilTIAZem HCl ER Coated Beads 120 MG Capsule Extended Release 24 Hour 1 capsule Oral Once a day , Taking Atorvastatin Calcium 10 MG Tablet Oral , Taking Cymbalta 60 MG Capsule Delayed Release Particles 1 capsule Orally Once a day , Taking Synthroid 100 MCG Tablet 1 tablet in the morning on an empty stomach Orally Once a day , Taking Gabapentin 100 MG Capsule TAKE 2 CAPSULES 3 TIMES A DAY Oral , Taking cloNIDine HCl 0.1 MG Tablet 1 tablet Orally Once a day As needed HTN, Taking Losartan Potassium 50 MG Tablet 1.5 tablet Orally Once a day , Taking Flecainide Acetate 100 MG Tablet 1 Tablet Orally every 12 hrs Objective: * Vitals: * Examination: G eneral Examination: General appearance: alert, well-nourished and in no acute distress. Head: normocephalic, atraumatic. Eyes: pupils equal, round, reactive to light and accommodation, sclera anicteric. Ears: normal. Oral cavity: mucosa moist. Throat: clear. Neck / thyroid: neck is supple, with full range of motion and no cervical lymphadenopathy. Skin: skin is warm and dry, with no rashes, good skin turgor and normal hair distribution. Heart: r egular rate and rhythm without murmurs, gallops, clicks or rubs. Lungs: clear to auscultation bilaterally, with good air movement and no rales, rhonchi or wheezes. Abdomen: soft with good bowel sounds, nontender, and no masses or hepatosplenomegaly. Extremities: n ormal extremity with no clubbing, cyanosis or edema. Peripheral pulses: normal 2+ arterial pulses. Neurologic: nonfocal. Psych: n ormal affect / mood . Assessment: * Assessment: 1. E pisodic atrial fibrillation - I48.0 (Primary) 2 . P re-procedural cardiovascular examination - Z01.810 3 . U nspecified atrial flutter - I48.92 ? 4 . E ssential (primary) hypertension - I10 5 . M ixed hyperlipidemia - E78.2 6 . H ypothyroidism, unspecified - E03.9 Plan: * Treatment: 2. P re-procedural cardiovascular examination Notes:Requesting clearance for L knee replacement for this monday ecg nsr, 1st deg AVB, qrs 106 07/06/23 EKG: SR, HR 75, QRS 114, QTc 432 06/2023 ECHO: EF 55-60%, mild MR, mild TR, RVSP 41, mild ND Clinical Notes: Overall low cardiovascular risk for an overall intermediate noncardiac procedure. Hold eliquis for 24-48 hours prior and resume within 24-48 hours post surgery. May proceed with L knee replacement 3. U nspecified atrial flutter Continue Eliquis Tablet, 5 MG, 1 tablet, Orally, twice a day; C ontinue dilTIAZem HCl ER Coated Beads Capsule Extended Release 24 Hour, 120 MG, 1 capsule, Oral, Once a day. Notes: 10/2021 afl/avnrt ablation by dr austin azar 10/2021 echo 55-60% mild mr/tr 10/2021 stress no sig ischemia Clinical Notes: cont ac, diltiazem [address] Homar Azar - EP 4. E ssential (primary) hypertension Continue cloNIDine HCl Tablet, 0.1 MG, 1 tablet, Orally, Once a day; I ncrease Losartan Potassium Tablet, 50 MG, 1.5 tablet, Orally, Once a day, 30 days, 45, Refills 3. Notes: cont to monitor at home Clinical Notes: Encouraged Diet and lifestyle modifications Goal BP <130/80 BP Log - Requiring Clonidine for SBP 150's - 160's daily Increase Losartan BP/HR log on next visit 5. M ixed hyperlipidemia Continue Atorvastatin Calcium Tablet, 10 MG, Oral. Clinical Notes: intolerant to statin, consider repatha 6. H ypothyroidism, unspecified Clinical Notes: cont synthroid * Billing Information: * Visit Code: * Procedure Codes: * Electronic signature of Hernan Donaldson MD on 01/27/2025 at 11:59 AM EDT Sign off status: Pending * Provider: Bernadette Donaldson MD, [facility], [facility] Date: 0 09/27/2023 Generated for Louie junior/Tiffany/eTransmitting on: 0 01/27/2025 11:59 AM EDT History and Physical Notes * HPI (History of Present Illness) Category Sub-Category Detail Notes Category Not es Transition of Care * 72 yo female with pmh aflutter s/p ablation, stroke without residual neurological deficits, tobacco abuse, cervical stenosis, cervical osteoarthritis, hypertension, hypothyroidism and obesity, braxton on cpap 10/2021 echo: ef 60-65%, mild mr/tr 09/2021 stress: no ischemia 10/19/21 EPS w/ abl of AFL, R AT, and AVNRT, Eliquis started, BB stopped. started diltiazem 120. Avoid AAD for now per EP 10/2021 AFlutter ablation done by Dr Austin azar at [facility] 04/2022 echo lvef 55% w mild MR, RVSP 40 ecg sr, qrsd 100 04/2022 [facility] w afib, started flecainide ecg nsr, 1st deg AVB, qrs 106 07/06/23 EKG: SR, HR 75, QRS 114, QTc 432 06/2023 ECHO: EF 55-60%, mild MR, mild TR, RVSP 41, mild ND Echo Review: Feeling more episodes of Afib with fullness and exhaustion PCP had started patient on BB and patient intolerant with exhaustion and dizziness Left knee replaced without complication Denies chest pain, dyspnea Denies Lightheadedness, dizziness Denies syncope or falls Denies claudication cant tolerate statins due to myalgias Does not tolerate Zetia due to DAWN and diarrhea BP well controlled at home and in office 122/70 Activity: walks 3 miles daily without limitations famhx: dad ich on coumadin, mother dementia sochx: stopped drinking caffeine, prev tobacco quit 15 yrs ago, occ etoh Examination Category Sub-Category Detail Notes Category Not es General Examination General appearance: alert, w ell-nourished and in no acute distress Head: normocephalic, atrau matic Eyes: pupils equal, round, reactive to light and accommodation, sclera anicteric Ears: normal Throat: clear Neck / thyroid: neck is supple, with full range of motion and no cervical lymphadenopathy Heart: regular rate and rhy thm without murmurs, gallops, clicks or rubs Lungs: clear to auscultatio n bilaterally, with good air movement and no rales, rhonchi or wheezes Abdomen: soft with good bowel sounds, nontender, and no masses or hepatosplenomegaly Neurologic: nonfocal Skin: skin is warm and dry , with no rashes, good skin turgor and normal hair distribution Extremities: normal extremity wit h no clubbing, cyanosis or edema Peripheral pulses: normal 2+ arterial p ulses Psych: normal affect / mood Oral cavity: mucosa moist
--- OUTSIDE RECORDS SUMMARY | 2023-10-05 04:30 | XMS_ITS ---
Author Organization [facility] [employer], [facility] Address [address] [place] [address] [address] [place], [place] [address] Care Team Providers Care Correctional Program Specialist Name Role Phone Noe Crum DO Primary Care Provider Hernan Monae Unavailable [phone] REASON FOR VISIT 3m Encounters Encounter Location Date Provider Diagnosis [facility], [facility] [address] [facility] [address] [place], [place] [id number] 10/05/2023 Hernan Donaldson Plan Of Treatment No Information Progress Notes * Genie VORADOB:[birth year] (74 yo F)Acc No.[id number]:10/05/2023 Progress Notes Patient: Genie ZIMMERMAN Provider: Bernadette Donaldson MD, [facility], [facility] :1950 A ge:73 Y S ex:Female Date:10/05/2023 Address:[facility] [address], [facility] Pcp:Noe Crum DO Subjective: * Chief Complaints: * 1 . 3m. * Medical History: Objective: * Vitals: Assessment: Plan: * Treatment: * Billing Information: * Visit Code: * Procedure Codes: * Electronic signature of Hernan Donaldson MD on 01/27/2025 at 11:59 AM EDT Sign off status: Pending * Provider: Bernadette Donaldson MD, [facility], [facility] Date: 0 10/05/2023 Generated for Printi ng/Faxing/eTransmitting on: 0 01/27/2025 11:59 AM EDT
--- OUTSIDE RECORDS SUMMARY | 2023-11-14 23:00 | XMS_ITS ---
Author Organization [facility] Address [facility] [place] [address] Care Team Providers Care Set Up Mechanic Crown Assembly Machine Name Role Phone Hernan Donaldson Primary Care Provider Unavailabl e Encounters Encounter Location Date Provider Diagnosis [facility], [facility] [address] [place] [phone] 11/15/2023 Hernan Donaldson Plan Of Treatment No Information Progress Notes * THAOLAURAKEVIN PRECIADOFLACODOB:[birth year] (74 yo F)Acc No.[id number]:11/15/2023 Progress Notes Patient: SOLANGE ZIMMERMAN Provider: Bernadette Donaldson M.D :1950 A ge:73 Y S ex:Female Date:11/15/2023 Address:[address], [facility] Subjective: * Chief Complaints: * * Medical History: Objective: * Vitals: Assessment: Plan: * Treatment: * Billing Information: * Visit Code: * Procedure Codes: * Electronic signature of Hernan Donaldson MD on 01/27/2025 at 12:00 PM EDT Sign off status: Pending * Provider: Bernadette Donaldson M.D Date: 11/15/2023 Generated for Louie junior/Tiffany/Hieuitting on: 01/27/2025 12:00 PM EDT
--- OUTSIDE RECORDS SUMMARY | 2023-11-29 06:30 | XMS_ITS ---
Author Organization [facility] [place], [facility] Address [address] [facility] [address] [place], [place] [address] Care Team Providers Care Meat Service Team Member Name Role Phone Noe Crum DO Primary Care Provider Hernan Monae Unavailable [phone] REASON FOR VISIT 7 DAY Encounters Encounter Location Date Provider Diagnosis [facility], [address] [place] [address] 11/29/2023 Hernan Donaldson Plan Of Treatment No Information Progress Notes * Genie VORADOB:[birth year] (74 yo F)Acc No.[id number]:11/29/2023 Patient: Genie ZIMMERMAN Provider: Bernadette Donaldson MD, [facility], [facility] :1950 A ge:73 Y S ex:Female Date:11/29/2023 Address:[address], [facility] Pcp:Noe Crum DO Subjective: * Chief Complaints: * 1 . 7 DAY. * Medical History: Objective: * Vitals: Assessment: Plan: * Treatment: * Billing Information: * Visit Code: * Procedure Codes: * Electronic signature of Hernan Donaldson MD on 01/27/2025 at 11:59 AM EDT Sign off status: Pending * Provider: Bernadette Donaldson MD, [facility], [facility] Date: 0 11/29/2023 Generated for Printi ng/Faxing/eTransmitting on: 0 01/27/2025 11:59 AM EDT
--- OUTSIDE RECORDS SUMMARY | 2023-12-20 04:45 | XMS_ITS ---
Author Organization [facility] Holvi Hatillo, [facility] Address [address] [facility] [address] [place], [place] [id number] Care Team Providers Care Scientific Software Developer Name Role Phone Noe Crum DO Primary Care Provider Hernan Monae Unavailable [phone] REASON FOR VISIT EVENT MONITOR Encounters Encounter Location Date Provider Diagnosis [facility], [address] [place] [address] 12/20/2023 Hernan Donaldson Plan Of Treatment No Information Progress Notes * Genie VORADOB:[birth year] (74 yo F)Acc No.[id number]:12/20/2023 Progress Notes Patient: Genie ZIMMERMAN Provider: Bernadette Donaldson MD, [facility] :1950 A ge:73 Y S ex:Female Date:12/20/2023 Address:[facility] Kathrin Suarez, [facility] Pcp:Noe Crum DO Subjective: * Chief Complaints: * 1 . EVENT MONITOR. * Medical History: Objective: * Vitals: Assessment: Plan: * Treatment: * Billing Information: * Visit Code: * Procedure Codes: * Electronic signature of Hernan Donaldson MD on 01/27/2025 at 11:59 AM EDT Sign off status: Pending * Provider: Bernadette Donaldson MD, [facility], [facility] Date: 0 12/20/2023 Generated for Printi ng/Faxing/eTransmitting on: 0 01/27/2025 11:59 AM EDT
--- NOTE | 2025-01-27 11:15 | HO.SPINEOV ---
Intake Visit Reasons: 2nd post op with xrays Intake Note: Ms. Vora is here today for her 2nd post op with xrays. Eastern Philosophy Professor Required: No Allergies Statins Allergy (Severe, Uncoded 11/19/24 05:59) Muscle Pain Assessment & Plan Assessment & Plan (1) S/P lumbar spinal fusion: Code(s): Z98.1 - Arthrodesis status Category: Medical Plan Procedure: L3-4 OLIF Yeimi is a pleasant 74-year-old female who comes in today for her 2nd postoperative visit after having an L3-[address] Pope on 11/19/2024. To recap during her last office visit she reported that her pain had very much so improved compared to preoperatively. Today she continues to report good resolution of her pain overall. She has been attempting to ambulate more and lose some of the weight that she put on before her surgery. Overall she is doing very well. We reviewed her x-ray imaging taken during this visit which shows stable placement of her surgical construct with no changes from fluoroscopy. She asked several questions regarding the postoperative healing course, all of which I answered to the best of my ability. She did bring up some concerns regarding her upper extremities during this encounter. She states that her hands will intermittently become numb, she will drop objects, and is still concerned about her balance related issues. We did discuss this before and her initial office visit and ordered a cervical MRI. This did not appear to be related to new spinal cord compression. No new neurological deficits. The patient ambulates well and rises from seated position without difficulty. Her anterior and lateral incision sites are closed and well healing with no signs of erythema or drainage. (-) Tinel's at wrist bilaterally. (-) Blanco's bilaterally. No hyperreflexia. I would like to order an EMG for the patient to r/o carpal / cubital tunnels syndrome and cervical nerve impingement. Merlin Pope MD,PhD [facility] Coding Level of Care Code Global (74886) Diagnoses S/P lumbar spinal fusion Z98.1
--- OUTSIDE RECORDS SUMMARY | 2025-01-27 11:58 | XMS_ITS | Encounter Summary ---
Author Organization [facility] Address [address] [place] [address] Care Team Providers Care Sales Support Associate Name Role Phone Brandyn Pagan MD Primary [...] Brandyn Pagan MD [place], Peter J [address] [place] [address] Phone: tel: fax: Referral ID Status Reason Start Date Expiration Date V isits Requested Visits Authorized [id number] Closed Chiropractor 01/27/2017 05/21/2017 1 1 Question Answer When do you want this visit to occur? PT CONVENIENCE Patient is being referred outside of [facility] for the following reason, however final determination for [id number] requests are made by the Referral Management Department Service is not available within [facility] Track Order? No Please list the patient's preferred provider for this consult. Dr Yonis Lang [address] [place] [address] npi#[id number] Encounter Details Date Type Department Care Team (Late st Contact Info) Description 01/27/2017 Orders Only [facility] [address] [place] [phone] Brandyn Pagan MD Social History Tobacco Use [...] chronicity documented in this encounter Care Teams Sales Support Associate Relationship Specialty Start Date End Date Brandyn Pagan MD PCP - General Internal Medicine 08/07/15 02/02/17 Radha Spangler NP PCP - Backup PCP Internal Medicine 01/11/16 02/02/17 Unknown Pcp, Non [facility] PCP - General 02/03/17 documented as of this encounter
--- OUTSIDE RECORDS SUMMARY | 2025-01-27 11:58 | XMS_ITS | Encounter Summary ---
Author Organization [facility] Address [address] [place] [address] Care Team Providers Care Airline Mechanic Name Role Phone Unknown Pcp, Non [...] Date Expiration Date Visits Requested Visits Authorized [id number] Canceled Service Not Available at Clinic 02/03/2017 1 1 Question Answer When do you want this visit to occur? FIRST ROUTINE AVAILABLE - ass soon as possible patient moving to [facility] Patient is being referred outside of [facility] for the following reason, however final determination for [id number] requests are made by the Referral Management Department [facility] Order? No Encounter Details Date Type Department Care Team (Late st Contact Info) Description 02/03/2017 Orders Only [facility] [address] [place] [phone] Brandyn Pagan MD Social History Tobacco Use [...] chronicity documented in this encounter Care Teams Airline Mechanic Relationship Specialty Start Date End Date Unknown Pcp, Non [facility] PCP - General 02/03/17 documented as of this encounter
--- OUTSIDE RECORDS SUMMARY | 2025-01-27 11:58 | XMS_ITS | Encounter Summary ---
Author Organization [facility] Address [address] [place] [address] Care Team Providers Care Salesperson Women'S Hats Name Role Phone Brandyn Pagan MD Primary Care Provider Unavaila Radha Fink NP Unavailable Unavailable Unknown Pcp, Non [facility]mg Primary Care Provider Unava ilable Encounter Details Date Type Department Care Team (Late st Contact Info) Description 01/08/2016 Orders Only [facility] [address] [place] [phone] Brandyn Pagan MD Social History Tobacco Use [...] on filedocumented in this encounter Care Teams Salesperson Women'S Hats Relationship Specialty Start Date End Date Brandyn Pagan MD PCP - General Internal Medicine 08/07/15 02/02/17 Radha Spangler NP PCP - Backup PCP Internal Medicine 01/11/16 02/02/17 Unknown Pcp, Non Rmg PCP - General 02/03/17 documented as of this encounter
--- OUTSIDE RECORDS SUMMARY | 2025-01-27 11:58 | XMS_ITS | Patient Health Record ---
Author Organization [facility] Address [address] [id number] Care Team Providers Care Grain Farmer Name Role Phone Noe Crum DO Primary Care Provider Hernan Monae Unavailable [phone] Allergies Allergen (clinical drug ingredient) Drug/Non Drug Allergy documented on EMR Reaction Allergy Type Onset Date Status gabapentin Gabapentin HTN Drug Allergy Activ e Substance with 1-tihuxex-1-methylg lutaryl-coenzyme A reductase inhibitor mechanism of action (substance) Statins joint pain and enzyms elevatedd Drug Allergy Active Reason For Referral No Information Medications Medication SIG (Take, Route, Frequency, Duration) Notes Start Date End Date Status Synthroid 100 MCG 1 tablet in the morn ing on an empty stomach Orally Once a day Active Gabapentin 100 MG 1 capsule Oral three times a day; Duration: 90 days Active Flecainide Acetate 100 MG 1 Tablet Orall y every 12 hrs; Duration: 30 days Active Cymbalta 60 MG 1 capsule Orally Onc e a day Active cloNIDine HCl 0.1 MG 1 tablet Orally Once a day As needed HTN > 160 Active Losartan Potassium 50 MG 1 tablet Orally Twice a day; Duration: 30 days Active dilTIAZem HCl ER Coated Beads 120 MG 1 capsule Oral Twice a day; Duration: 90 days Active Eliquis 5 MG 1 tablet Orally twic e a day Active Problems Problem Type SNOMED Code ICD Code Onset Dates Problem Status W/U Status Risk Notes Problem Hypothyroidism (59933355) Hypothyroidism, unspecified (E03.9) Active confirmed Problem Mixed hyperlipidemia (881681143) Mixed hyperlipidemia (E78.2) Active confirmed Problem Essential hypertension (26267689) Essential (primary) hypertension (I10) Active confirmed Problem Atrial flutter (8540822) Unspecified atrial flutter (I48.92) Active confirmed Problem Atrial fibrillation (47379772) Episodic atrial fibrillation (I48.0) Active confirmed Problem Preoperative cardiovascular examination (206523617) Pre-procedural cardiovascular examination (Z01.810) Active confirmed Plan Of Treatment No Information Insurance Providers Payer Name Payer Address Payer Phone Subscriber Number Group Number Insured Name Patient Relationship to Insured Coverage Start Date Coverage End Date [employer] [place] [address] [address] [place], [place] [id number] Genie Vora Self - patient is the insured
--- OUTSIDE RECORDS SUMMARY | 2025-01-27 11:58 | XMS_ITS | Encounter Summary ---
Author Organization [facility] Address [address] [place] [address] Care Team Providers Care Toy Parts Former Supervisor Name Role Phone Brandyn Pagan MD Primary Care Provider Unavaila Radha Fink NP Unavailable Unavailable Unknown Pcp, Non Rmg Primary Care Provider Unava ilable Encounter Details Date Type Department Care Team (Late st Contact Info) Description 04/08/2016 Orders Only [facility] [address] [place] [phone] Radha Spangler NP Social History Tobacco Use [...] this encounter Procedures * Due to [place] [employer] law, this organization might not be sharing [...] this encounter Results * Due to [place] [employer] law, this organization might not be sharing negative HIV tests. * (ABNORMAL) CULTURE, URINE, ROUTINE (04/08/2016 12:17 PM EST) Bacteria culture (Urine) SEE NOTE(A) [facility] Comment: {CULTURE, URINE, ROUTINE {[id number]) CULTURE, URINE, ROUTINE MICRO NUMBER: [id number] TEST STATUS: FINAL SPECIMEN SOURCE: URINE SPECIMEN QUALITY: ADEQUATE RESULT: Greater than 100,000 CFU/mL of Escherichia coli E.coli INT VLADIMIR AMOX/CLAVULANATE S <=2 AMPICILLIN S 4 AMP/SULBACTAM S 4 CEFAZOLIN NR <=4 1 CEFEPIME S <=1 CEFTRIAXONE S <=1 CIPROFLOXACIN S <=0.25 ERTAPENEM S <=0.5 GENTAMICIN S <=1 IMIPENEM S <=0.25 LEVOFLOXACIN S <=0.12 NITROFURANTOIN S <=16 PIP/TAZOBACTAM S <=4 TOBRAMYCIN S <=1 TRIMETHOPRIM/SULFA S <=20 S=Susceptible I=Intermediate R=Resistant * = Not Tested NR = Not Reported NN = See Therapy Comments THERAPY COMMENTS Note 1: ORAL therapy: A cefazolin VLADIMIR of < 32 predicts susceptibility to the oral agents cefaclor, cefdinir, cefpodoxime, cefprozil, cefuroxime, cephalexin, and loracarbef when used for therapy of uncomplicated UTIs due to E. coli, K. pneumoniae, and P. mirabilis. PARENTERAL therapy: A cefazolin VLADIMIR of > 8 indicates resistance to parenteral cefazolin. An alternate test method must be performed to to confirm susceptibility to parenteral cefazolin. 04/08/2016 12:1 7 PM EST 04/08/2016 7:00 PM EST Narrative Resulting Agency Comment [id number] Radha Spangler NP LABORATORY Final Result [facility] [address] [place] [address] * (ABNORMAL) URINALYSIS, COMPLETE INCLUDES DIPSTICK AND MICROSCOPIC (04/08/2016 12:17 PM EST) Color (Urine) YELLOW YELLOW [facility] Comment:{COLOR {[id number]) Appearance (Urine) CLEAR CLEAR [facility] Comment:{APPEARANCE {[id number]) Specific gravity (Urine) 1.019 1.001 - 1.035 [facility] Comment:{SPECIFIC GRAVITY {[id number]) pH (Urine) 6.5 5.0 - 8.0 [facility] Comment:{PH {[id number]) Glucose (Urine) NEGATIVE NEGATIVE [facility] Comment:{GLUCOSE {[id number]) Bilirubin (Urine) NEGATIVE NEGATIVE [facility] Comment:{BILIRUBIN {[id number]) Ketones (Urine) NEGATIVE NEGATIVE [facility] Comment:{KETONES {[id number]) Hemoglobin (Urine) NEGATIVE NEGATIVE [facility] Comment:{OCCULT BLOOD {[id number]) Protein (Urine) NEGATIVE NEGATIVE [facility] Comment:{PROTEIN {[id number]) Nitrite (Urine) NEGATIVE NEGATIVE [facility] Comment:{NITRITE {[id number]) Leukocyte esterase (Urine) TRACE(A) NEGATIVE [facility] Comment:{LEUKOCYTE ESTERASE {[id number]) WBC (Urine) 0-5 < OR = 5 /HPF [facility] Comment:{WBC {[id number]) RBC (Urine Sed) NONE SEEN < OR = 2 /HPF [facility] Comment:{RBC {[id number]) Epithelial cells.squamous (Urine sed) 0-5 < OR = 5 /HPF [facility] Comment:{SQUAMOUS EPITHELIAL CELLS {[id number]) Bacteria (Urine) NONE SEEN NONE SEEN /HPF [facility] Comment:{BACTERIA {[id number]) Hyaline casts (Urine sed) NONE SEEN NONE SEEN /LPF [facility] Comment:{HYALINE CAST {[id number]) 04/08/2016 12:1 7 PM EST 04/08/2016 7:00 PM EST Narrative Resulting Agency Comment [id number] us Radha Spangler CAREER GUIDANCE TECHNICIAN LAB SAME DAY RESULT Final Re sult [facility] [address] [place] [address] * HEPATIC FUNCTION PANEL (ALT,AST,ALK PH,BILI'S,TP,ALB) (04/08/2016 12:17 PM EST) Protein Total (Serum) 6.1 6.1 - 8.1 g/dL [facility] Comment:{PROTEIN, TOTAL {[id number]) Albumin 4.2 3.6 - 5.1 g/dL [facility] Comment:{ALBUMIN {[id number]) Globulin 1.9 1.9 - 3.7 g/dL (calc) [facility] Comment:{GLOBULIN {[id number]) Albumin/Globulin 2.2 1.0 - 2.5 (calc) [facility] Comment:{ALBUMIN/GLOBULIN RA LANA {[id number]) Bilirubin Total 0.3 0.2 - 1.2 mg/dL [facility] Comment:{BILIRUBIN, TOTAL {[id number]) Bilirubin Direct 0.1 < OR = 0.2 mg/dL [facility] Comment:{BILIRUBIN, DIRECT { [id number]) Bilirubin Indirect 0.2 0.2 - 1.2 mg/dL (calc) [facility] Comment:{BILIRUBIN, INDIRECT {[id number]) Alkaline phosphatase 111 33 - 130 U/L [facility] Comment:{ALKALINE PHOSPHATAS E {[id number]) AST (SGOT) 21 10 - 35 U/L [facility] Comment:{AST {[id number]) ALT (SGPT) 22 6 - 29 U/L [facility] Comment:{ALT {[id number]) 04/08/2016 12:1 7 PM EST 04/08/2016 7:00 PM EST Narrative Resulting Agency Comment [id number] Radha Spangler NP LABORATORY Final Result Performing Organization Address City/[facility]/ZIP Co de Phone Number [facility] [address] [place] [address] * CREATINE KINASE (CK), SERUM (04/08/2016 12:17 PM EST) CPK 133 29 - 143 U/L [facility] Comment:{CREATINE KINASE, TO KENZIE {[id number]) 04/08/2016 12:1 7 PM EST 04/08/2016 7:00 PM EST Narrative Resulting Agency Comment [id number] Radha Spangler CAREER GUIDANCE TECHNICIAN LAB SAME DAY RESULT Final Re sult Performing Organization Address City/[facility]/ZIP Co de Phone Number [facility] [address] [place] [address] * (ABNORMAL) BASIC METABOLIC PANEL WITH (GFR) (04/08/2016 12:17 PM EST) Glucose 101(H) 65 - 99 mg/dL [facility] Comment: {GLUCOSE {[id number]) Fasting reference interval Urea Nitrogen Blood (BUN) 37(H) 7 - 25 mg/dL [facility] Comment:{UREA NITROGEN (BUN) {[id number]) Creatinine 1.13(H) 0.50 - 0.99 mg/dL [facility] Comment: {CREATININE {[id number]) For patients >49 years of age, the reference limit for Creatinine is approximately 13% higher for people identified as -[place]. GFR 51(L) > OR = 60 mL/min/1. 73m2 [facility] Comment:{eGFR NON-AFR. AMERI CAN {[id number]) GFR () 59(L) > OR = 60 mL/min/1. 73m2 [facility] Comment:{eGFR AMERIC AN {[id number]) BUN/Creatinine Ratio 33(H) 6 - 22 (calc) [facility] Comment:{BUN/CREATININE RATI O {[id number]) Sodium 139 135 - 146 mmol/L [facility] Comment:{SODIUM {[id number]) Potassium 5.1 3.5 - 5.3 mmol/L [facility] Comment:{POTASSIUM {[id number]) Chloride 105 98 - 110 mmol/L [facility] Comment:{CHLORIDE {[id number]) Carbon dioxide 25 20 - 31 mmol/L [facility] Comment:{CARBON DIOXIDE {[id number]) Calcium 9.4 8.6 - 10.4 mg/dL [facility] Comment:{CALCIUM {[id number]) 04/08/2016 12:1 7 PM EST 04/08/2016 [...] needs for GFR calculation. Resulting Agency Comment [id number] us Radha Spangler NP LABORATORY Final Result [facility] [address] [place] [address] documented in this encounter Visit Diagnoses Diagnosis [...] organs documented in this encounter Care Teams Toy Parts Former Supervisor Relationship Specialty Start Date End Date Brandyn Pagan MD PCP - General Internal Medicine 08/07/15 02/02/17 Radha Spangler NP PCP - Backup PCP Internal Medicine 01/11/16 02/02/17 Unknown Pcp, Non Rmg PCP - General 02/03/17 documented as of this encounter
--- OUTSIDE RECORDS SUMMARY | 2025-01-27 11:58 | XMS_ITS | Encounter Summary ---
Author Organization [facility] Address [address] [place] [address] Care Team Providers Care Public Policy Associate Name Role Phone Brandyn Pagan MD Primary Care Provider Unavaila Radha Fink NP Unavailable Unavailable Unknown Pcp, Non Rmg Primary Care Provider Unava ilable Encounter Details Date Type Department Care Team (Late st Contact Info) Description 02/19/2016 Orders Only [facility] [address] [place] [address] Brandyn Pagan MD Social History Tobacco Use [...] this encounter Procedures * Due to [place] [employer] law, this organization might not be sharing [...] this encounter Results * Due to [place] [employer] law, this organization might not be sharing negative HIV tests. * (ABNORMAL) URINALYSIS, DIP ONLY ( SITE STAT ONLY) (02/19/2016 2:13 PM EDT) COLOR (URINE) Yellow [facility] (CLIA# [id number]) APPEARANCE (URINE) Cloudy [facility] (CLIA# [id number]) SPECIFIC GRAVITY 1.010 1.001 - 1.035 [facility] (CLIA# [id number]) PH (URINE) 7.5 5.0 - 8.0 [facility] (CLIA# [id number]) PROTEIN (URINE) Trace(A) Neg [facility] (CLIA# [id number]) GLUCOSE (URINE) Negative Neg [facility] (CLIA# [id number]) Ketones (Urine) Negative Neg [facility] (CLIA# [id number]) BILIRUBIN (URINE) Negative Neg [facility] (CLIA# [id number]) BLOOD (URINE) Negative Neg [facility] (CLIA# [id number]) Leukocyte esterase (Urine) 2+(A) [facility] (CLIA# [id number]) NITRITE (URINE) Negative Neg [facility] (CLIA# [id number]) Urine specimen obtained by clean catch procedure (specimen) 02/19/2016 2:13 PM EDT Narrative [facility] (CLIA# [id number]) - 02/19/2016 2:14 PM EDT Micro and culture already ordered per provider. us Brandyn Pagan MD LAB SAME DAY RESULT Final Resul t [facility] (CLIA# [id number]) [address] [place] [address] * (ABNORMAL) CULTURE, URINE, ROUTINE (02/19/2016 2:00 PM EDT) Bacteria culture (Urine) SEE NOTE(A) [facility] Comment: {CULTURE, URINE, ROUTINE {[id number]) CULTURE, URINE, ROUTINE MICRO NUMBER: [id number] TEST STATUS: FINAL SPECIMEN SOURCE: URINE SPECIMEN QUALITY: ADEQUATE RESULT: 50,000-100,000 CFU/mL of Escherichia coli Greater than 100,000 CFU/mL of Staphylococcus saprophyticus The Clinical Laboratory Standards [place] (M100 guidelines), does not advise routine susceptibility testing of urine isolates of S.saprophyticus because infections respond to urinary concentrations of agents commonly used to treat acute, uncomplicated UTI such as Nitrofurantoin, Trimethoprim-sulfamethoxazole or a fluoroquinolone. E.coli INT VLADIMIR AMOX/CLAVULANATE S <=2 AMPICILLIN [...] to to confirm susceptibility to parenteral cefazolin. 02/19/2016 2:00 PM EDT 02/19/2016 7:35 PM EDT Narrative Resulting Agency Comment [id number] us Brandyn Pagan MD LABORATORY Final Result Performing Organization Address [facility] de Phone Number [facility] [address] [place] [address] * (ABNORMAL) URINALYSIS, MICROSCOPIC (02/19/2016 2:00 PM EDT) WBC (Urine) 20-40(A) < OR = 5 /HPF [facility] Comment:{WBC {[id number]) RBC (Urine Sed) NONE SEEN < OR = 2 /HPF [facility] Comment:{RBC {[id number]) Epithelial cells.squamous (Urine sed) NONE SEEN < OR = 5 /HPF [facility] Comment:{SQUAMOUS EPITHELIAL CELLS {[id number]) Bacteria (Urine) FEW(A) NONE SEEN /HPF [facility] Comment:{BACTERIA {[id number]) Hyaline casts (Urine sed) NONE SEEN NONE SEEN /LPF [facility] Comment:{HYALINE CAST {[id number]) 02/19/2016 2:00 PM EDT 02/19/2016 7:35 PM EDT Narrative Resulting Agency Comment [id number] us Brandyn Pagan MD LAB SAME DAY RESULT Final Resul t Performing Organization Address [facility] Co de Phone Number [facility] [address] [place] [address] documented in this encounter Visit Diagnoses Diagnosis Urinary tract infection, site unspecified documented in this encounter Care Teams Public Policy Associate Relationship Specialty Start Date End Date Brandyn Pagan MD PCP - General Internal Medicine 08/07/15 02/02/17 Radha Spangler NP PCP - Backup PCP Internal Medicine 01/11/16 02/02/17 Unknown Pcp, Non [place] [facility] PCP - General 02/03/17 documented as of this encounter
--- OUTSIDE RECORDS SUMMARY | 2025-01-27 11:58 | XMS_ITS | Encounter Summary ---
Author Organization [facility] Address [address] [place] [address] Care Team Providers Care Cabin Supervisor Name Role Phone Brandyn Pagan MD Primary Care Provider Radha Cuevas NP Unavailable Unavailable Unknown Pcp, Non Rmg Primary Care Provider Unava ilable Encounter Details Date Type Department Care Team (Late st Contact Info) Description 06/21/2016 Orders Only [facility] [address] [place] [address] Brandyn Pagan MD Social History Tobacco Use [...] this encounter Procedures * Due to [place] [employer] law, this organization might not be sharing negative HIV tests. Procedure Name Priority Date/Time Associated Diagnosis Comments URINALYSIS, DIP ONLY STAT (All results called to provider) 06/21/2016 11:17 AM EST Frequent urination CULTURE, URINE, ROUTINE Routine 06/21/2016 10:35 AM EST Frequent urination URINALYSIS, MICROSCOPIC Routine 06/21/2016 10:35 AM EST Frequent urination documented in this encounter Results * Due to [place] [employer] [place] law, this organization might not be sharing negative HIV tests. * URINALYSIS, DIP ONLY ( SITE STAT ONLY) (06/21/2016 11:17 AM EST) COLOR (URINE) YELLOW [facility] (CLIA# [id number]) APPEARANCE (URINE) CLEAR Clear [facility] (CLIA# [id number]) SPECIFIC GRAVITY 1.020 1.001 - 1.035 [facility] (CLIA# [id number]) PH (URINE) 6.0 5.0 - 8.0 [facility] (CLIA# [id number]) PROTEIN (URINE) NEGATIVE Neg [facility] (CLIA# [id number]) GLUCOSE (URINE) NEGATIVE Neg [facility] (CLIA# [id number]) Ketones (Urine) NEGATIVE Neg [facility] (CLIA# [id number]) BILIRUBIN (URINE) NEGATIVE Neg [facility] (CLIA# [id number]) BLOOD (URINE) NEGATIVE Neg [facility] (CLIA# [id number]) Leukocyte esterase (Urine) NEGATIVE Neg [facility] (CLIA# [id number]) NITRITE (URINE) NEGATIVE Neg [facility] (CLIA# [id number]) Urine specimen (specimen) 06/21/2016 11:17 AM EST Narrative [facility] (CLIA# [id number]) - 06/21/2016 11:17 AM EST Micro and culture already ordered by provider. Brandyn Pagan MD LAB SAME DAY RESULT Final Resul t [facility] (CLIA# [id number]) [address] [place] [address] * CULTURE, URINE, ROUTINE (06/21/2016 10:35 AM EST) Bacteria culture (Urine) SEE NOTE [facility] Comment: CULTURE, URINE, ROUTINE MICRO NUMBER: [id number] TEST STATUS: FINAL SPECIMEN SOURCE: URINE SPECIMEN QUALITY: ADEQUATE RESULT: Multiple organisms present, each less than 10,000 CFU/mL. These organisms, commonly found on external and internal genitalia, are considered to be colonizers. No further testing performed. 06/21/2016 10:3 5 AM EST 06/21/2016 4:50 PM EST Narrative Resulting Agency Comment [id number] Brandyn Pagan MD LABORATORY Final Result [facility] [address] [place] [address] * URINALYSIS, MICROSCOPIC (06/21/2016 10:35 AM EST) [...] 4:50 PM EST Narrative Resulting Agency Comment [id number] us Brandyn Pagan MD LAB SAME DAY RESULT Final Resul t Performing Organization Address City/State/[facility] Co de Phone Number [facility] [address] [place] [address] documented in this encounter Visit Diagnoses Diagnosis Frequent urination Urinary frequency documented in this encounter Care Teams Cabin Supervisor Relationship Specialty Start Date End Date Brandyn Pagan MD PCP - General Internal Medicine 08/07/15 02/02/17 Radha Spangler NP PCP - Backup PCP Internal Medicine 01/11/16 02/02/17 Unknown Pcp, Non Rmg PCP - General 02/03/17 documented as of this encounter
--- OUTSIDE RECORDS SUMMARY | 2025-01-27 11:58 | XMS_ITS | Encounter Summary ---
Author Organization [facility] Address [address] [place] [address] Care Team Providers Care Bridge Painter Name Role Phone Brandyn Pagan MD Primary Care Provider Radha Cuevas NP Unavailable Unavailable Unknown Pcp, Non Rmg Primary Care Provider Unava ilable Encounter Details Date Type Department Care Team (Late st Contact Info) Description 01/12/2017 Orders Only [facility] [address] [place] [address] Brandyn Pagan MD Social History Tobacco Use [...] this encounter Procedures * Due to [place] [employer] law, this organization might not be sharing negative HIV tests. Procedure Name Priority Date/Time Associated Diagnosis Comments URINALYSIS, DIP ONLY STAT (All results called to provider) 01/12/2017 12:59 PM EDT Frequency of urination CULTURE, URINE, ROUTINE Routine 01/12/2017 12:22 PM EDT Frequency of urination URINALYSIS, MICROSCOPIC Routine 01/12/2017 12:22 PM EDT Frequency of urination documented in this encounter Results * Due to [place] [employer] law, this organization might not be sharing negative HIV tests. * URINALYSIS, DIP ONLY ( SITE STAT ONLY) (01/12/2017 12:59 PM EDT) COLOR (URINE) YELLOW [facility] (CLIA# [id number]) APPEARANCE (URINE) CLEAR Clear [facility] (CLIA# [id number]) SPECIFIC GRAVITY 1.005 1.001 - 1.035 [facility] (CLIA# [id number]) PH (URINE) 7.0 5.0 - 8.0 [facility] (CLIA# [id number]) PROTEIN (URINE) NEG Neg [facility] (CLIA# [id number]) GLUCOSE (URINE) NEG Neg [facility] (CLIA# [id number]) Ketones (Urine) NEG Neg [facility] (CLIA# [id number]) BILIRUBIN (URINE) NEG Neg [facility] (CLIA# [id number]) BLOOD (URINE) NEG Neg [facility] (CLIA# [id number]) Leukocyte esterase (Urine) NEG Neg [facility] (CLIA# [id number]) NITRITE (URINE) NEG Neg [facility] (CLIA# [id number]) Urine specimen obtained by clean catch procedure (specimen) 01/12/2017 12:59 PM EDT Narrative [facility] (CLIA# [id number]) - 01/12/2017 1:00 PM EDT Micro and culture already ordered per provider. Brandyn Pagan MD LAB SAME DAY RESULT Final Resul t Performing Organization Address [facility] Co de Phone Number [facility] (CLIA# [id number]) [address] [place] [address] * CULTURE, URINE, ROUTINE (01/12/2017 12:22 PM EDT) Bacteria culture (Urine) SEE NOTE [facility] Comment: CULTURE, URINE, ROUTINE MICRO NUMBER: [id number] TEST STATUS: FINAL SPECIMEN SOURCE: URINE SPECIMEN QUALITY: ADEQUATE RESULT: No Growth 01/12/2017 12:2 2 PM EDT 01/12/2017 10:29 PM EDT Narrative Resulting Agency Comment [id number] Brandyn Pagan MD LABORATORY Final Result Performing Organization Address City/[facility]/ZIP Co de Phone Number [facility] [address] [place] [address] * URINALYSIS, MICROSCOPIC (01/12/2017 12:22 PM EDT) [...] 10:29 PM EDT Narrative Resulting Agency Comment [id number] us Brandyn Pagan MD LAB SAME DAY RESULT Final Resul t [facility] [address] [place] [address] documented in this encounter Visit Diagnoses Diagnosis Frequency of urination Urinary frequency documented in this encounter Care Teams Bridge Painter Relationship Specialty Start Date End Date Brandyn Pagan MD PCP - General Internal Medicine 08/07/15 02/02/17 Radha Spangler NP PCP - Backup PCP Internal Medicine 01/11/16 02/02/17 Unknown Pcp, Non [facility] PCP - General 02/03/17 documented as of this encounter
--- OUTSIDE RECORDS SUMMARY | 2025-01-27 11:58 | XMS_ITS | Clinical Summary ---
Author Organization [facility] Address [address] [facility] [address] [place] [address] Phone Care Team Providers Care Slack Line Yarder Name Role Phone Magy Sawyer VP RHEUMATOLOGY Primary Care Provider [phone] Allergies Active Allergy Reactions Criticality Noted Date Comments Lansoprazole GI Upset Medium 10/02/2024 Xtrucst-Jen-Naw Reductase Inhibitors Myalgia,Other (See Comments) High 12/26/2015 [...] however patient is planning on moving to [place] in the next few weeks. She does [...] being followed by Dr. Irene Christensen in [place]. Confirmed with their office that she is status post total hysterectomy in 1999 for reasons of pelvic organ prolapse. They have elected to do Pap smears anyway, as recently as 06/05/2014 which was negative. Major depression in partial remission 11/02/2015 Overview (10/02/2024): Refer to PCP cpe dated 01/11/16 Psych: Reports anxiety and depression are stable. Sees Dr. Alvarado psychiatrist, in [place]. He prescribes lamotrigine, duloxetine, tramadol, Adderall. Psoriasis [...] Joint pain, knee 02/11/2010 Seborrheic dermatitis 05/29/2009 Family History Medical History Relation Comments Stroke [...] [facility] [address] [facility] [place] [address] 06/02/2025 10:00 AM EST Follow-Up [facility] [place] [address] Mala Hernandez NP [address] [place] [address] [email or web address] Due Date Last Done Comments [...] series) 2011 OSTEOPOROSIS SCREENING INITIAL (ONE-TIME) 2016 INFLUENZA VACCINE (#1) 2024 COVID-19 VACCINE ( season) 2025 BLOOD PRESSURE 04/04/2025 10/02/2024 LIPID PANEL 08/09/2025 08/09/2024, 07/21, 07/13/2024, Additional history exists TSH LEVEL 08/09/2025 08/09/2024, 06/23, 06/17/2024, Additional history exists Adult Td,Tdap Booster 01/10/2026 01/11/2016 MAMMOGRAM 08/23/2026 08/23/2024, 04/0 08/2024, 03/27/2023, Additional history exists HEPATITIS A [...] topic Medical Devices Not on file Insurance [facility] MEDICARE REPLACEMENT [employer] MEDICARE REPLACEMENT Care Teams Slack Line Yarder Relationship Specialty Start Date End Date Magy Sawyer NP [address] [facility] [address] [place] [address] PCP - General Nurse Practitioner 07/09/24 Additional Source Comments The information contained in this document represents components of the legal health record. It is not the complete legal health record.[facility]
--- OUTSIDE RECORDS SUMMARY | 2025-01-27 11:58 | XMS_ITS | Patient Health Record ---
Author Organization [facility] Address [address] [place] [address] Care Team Providers Care Director Channel Name Role Phone Gaby Green Primary Care Provider Parth Mejia Unavailable [phone] Reason For Referral No Information Medications Medication SIG (Take, Route, Frequency, Duration) Notes Start Date End Date Status Zoloft 50 MG 1 tablet Orally Once a day; Duration: 30 day(s) Active Lisinopril 10 MG 1 tablet Orally Once a day; Duration: 30 day(s) Active Plavix 75 MG 1 tablet Orally Once a day; Duration: 30 day(s) Active Pravastatin Sodium 20 MG 1 tablet Orally Once a day; Duration: 30 day(s) 05/05/2020 Active Problems Problem Type SNOMED Code ICD Code Onset Dates Problem Status W/U Status Risk Notes Problem Essential hypertension (05500123) Essential (primary) hypertension (I10) Active confirmed Problem Mixed hyperlipidemia (056168947) Mixed hyperlipidemia (E78.2) Active confirmed Problem Secondary pulmonary hypertension (16529635) Other secondary pulmonary hypertension (I27.2) Active confirmed Problem Bradycardia (09634316) Bradycardia, unspecified (R00.1) Active confirmed Problem Dyspnea (924008836) Other forms of dyspnea (R06.09) Active confirmed Plan Of Treatment No Information Insurance Providers Payer Name Payer Address Payer Phone Subscriber Number Group Number Insured Name Patient Relationship to Insured Coverage Start Date Coverage End Date [employer] H[employer] G[employer]US [address] [address] [place] [phone] [id number] Genie Vora Self - patient is the insured 3 Medical (General) History Medical History History ICD Code Hypertension Dyslipidemia Hx of stroke on Plavix Surgical History Surgery Date(Month/Year) Knee surgery
--- OUTSIDE RECORDS SUMMARY | 2025-01-27 11:58 | XMS_ITS | Encounter Summary ---
Author Organization [facility] Address [address] [place] [address] Care Team Providers Care Outside Maintenance Worker Name Role Phone Brandyn Pagan MD Primary Care Provider Unavaila Radha Fink NP Unavailable Unavailable Unknown Pcp, Non Rmg Primary Care Provider Unava ilable Encounter Details Date Type Department Care Team (Late st Contact Info) Description 01/28/2016 Orders Only [facility] [address] [place] [address] Radha Spangler, MEY Social History Tobacco Use [...] this encounter Procedures * Due to [place] [employer] law, this organization might not be sharing negative HIV tests. Procedure Name Priority Date/Time Associated Diagnosis Comments BASIC METABOLIC PANEL WITH (GFR) Routine 01/28/2016 11:41 AM EDT Elevated serum creatinine documented in this encounter Results * Due to [place] [employer] law, this organization might not be sharing negative HIV tests. * (ABNORMAL) BASIC METABOLIC PANEL WITH (GFR) (01/28/2016 11:41 AM EDT) Glucose 95 65 - 99 mg/dL [facility] Comment: {GLUCOSE {[id number]) Fasting reference interval Urea Nitrogen Blood (BUN) 28(H) 7 - 25 mg/dL [facility] Comment:{UREA NITROGEN (BUN) {[id number]) Creatinine 1.12(H) 0.50 - 0.99 mg/dL [facility] Comment: {CREATININE {[id number]) For patients >49 years of age, the reference limit for Creatinine is approximately 13% higher for people identified as -Namibian. GFR 52(L) > OR = 60 mL/min/1. 73m2 [facility] Comment:{eGFR NON-AFR. AMERI CAN {[id number]) GFR () 60 > OR = 60 mL/min/1. 73m2 [facility] Comment:{eGFR AMERIC AN {[id number]) BUN/Creatinine Ratio 25(H) 6 - 22 (calc) [facility] Comment:{BUN/CREATININE RATI O {[id number]) Sodium 140 135 - 146 mmol/L [facility] Comment:{SODIUM {[id number]) Potassium 4.8 3.5 - 5.3 mmol/L [facility] Comment:{POTASSIUM {[id number]) Chloride 106 98 - 110 mmol/L [facility] Comment:{CHLORIDE {[id number]) Carbon dioxide 30 20 - 31 mmol/L [facility] Comment:{CARBON DIOXIDE {[id number]) Calcium 9.5 8.6 - 10.4 mg/dL [facility] Comment:{CALCIUM {[id number]) 01/28/2016 11:4 1 AM EDT 01/28/2016 [...] needs for GFR calculation. Resulting Agency Comment [id number] Radha Spangler NP LABORATORY Final Result [facility] [address] [place] [address] documented in this encounter Visit Diagnoses Diagnosis Elevated serum creatinine Other nonspecific findings on examination of blood documented in this encounter Care Teams Outside Maintenance Worker Relationship Specialty Start Date End Date Brandyn Pagan MD PCP - General Internal Medicine 08/07/15 02/02/17 Radha Spangler NP PCP - Backup PCP Internal Medicine 01/11/16 02/02/17 Unknown Pcp, Non Rmg PCP - General 02/03/17 documented as of this encounter
--- OUTSIDE RECORDS SUMMARY | 2025-01-27 11:58 | XMS_ITS | Encounter Summary ---
Author Organization [facility] Address [address] [place] [address] Care Team Providers Care Clinical Research Nurse Name Role Phone Brandyn Pagan MD Primary Care Provider UnavailRadha Mas NP Unavailable Unavailable Unknown Pcp, Non Rmg Primary Care Provider Unava ilable Encounter Details Date Type Department Care Team (Late st Contact Info) Description 10/24/2016 Orders Only [address] [address] Concha Bustillo PA [address] [place] [id number] Social History Tobacco Use Types Packs/Day Years [...] this encounter Procedures * Due to [place] [employer] law, this organization might not be sharing negative HIV tests. Procedure Name Priority Date/Time Associated Diagnosis Comments EKG-USE ONLY IN [facility]/OCC MED/CARDIO Routine 10/21/2016 4:41 PM EDT Acute pain of right shoulder documented in this encounter Results * Due to [place] [employer] law, this organization might not be [...] shoulder documented in this encounter Care Teams Clinical Research Nurse Relationship Specialty Start Date End Date Brandyn Pagan MD PCP - General Internal Medicine 08/07/15 02/02/17 Radha Spangler NP PCP - Backup PCP Internal Medicine 01/11/16 02/02/17 Unknown Pcp, Non Rmg PCP - General 02/03/17 documented as of this encounter
--- OUTSIDE RECORDS SUMMARY | 2025-01-27 11:58 | XMS_ITS | Encounter Summary ---
Author Organization [facility] Address [address] [place] [address] Care Team Providers Care Audio Operator Name Role Phone Brandyn Pagan MD Primary Care Provider Unavaila Radha Fink NP Unavailable Unavailable Unknown Pcp, Non Rmg Primary Care Provider Unava ilable Encounter Details Date Type Department Care Team ([facility] st Contact Info) Description 12/29/2015 Orders Only [address] [facility] [address] [place] [address] Radha Spangler NP Social History Tobacco Use [...] this encounter Procedures * Due to [place] [employer] law, this organization might not be sharing [...] this encounter Results * Due to [place] [employer] law, this organization might not be sharing negative HIV tests. * (ABNORMAL) BASIC METABOLIC PANEL WITH (GFR) (12/29/2015 10:04 AM EDT) Glucose 98 65 - 99 mg/dL [facility] Comment: {GLUCOSE {[id number]) Fasting reference interval Urea Nitrogen Blood (BUN) 22 7 - 25 mg/dL [facility] Comment:{UREA NITROGEN (BUN) {[id number]) Creatinine 1.20(H) 0.50 - 0.99 mg/dL [facility] Comment: {CREATININE {[id number]) For patients >49 years of age, the reference limit for Creatinine is approximately 13% higher for people identified as -Lithuanian. GFR 48(L) > OR = 60 mL/min/1. 73m2 [facility] Comment:{eGFR NON-AFR. AMERI CAN {[id number]) GFR () 55(L) > OR = 60 mL/min/1. 73m2 [facility] Comment:{eGFR AMERIC AN {[id number]) BUN/Creatinine Ratio 18 6 - 22 (calc) [facility] Comment:{BUN/CREATININE RATI O {[id number]) Sodium 138 135 - 146 mmol/L [facility] Comment:{SODIUM {[id number]) Potassium 5.1 3.5 - 5.3 mmol/L [facility] Comment:{POTASSIUM {[id number]) Chloride 106 98 - 110 mmol/L [facility] Comment:{CHLORIDE {[id number]) Carbon dioxide 25 20 - 31 mmol/L [facility] Comment:{CARBON DIOXIDE {[id number]) Calcium 9.7 8.6 - 10.4 mg/dL [facility] Comment:{CALCIUM {[id number]) 12/29/2015 10:0 4 AM EDT 12/29/2015 [...] NP LABORATORY Final Result [facility] [address] [place] [address] * (ABNORMAL) LIPID PANEL WITH REFLEX TO DIRECT LDL (12/29/2015 10:04 AM EDT) Cholesterol 232(H) 125 - 200 mg/dL [facility] Comment:{CHOLESTEROL, TOTAL {[id number]) HDL Cholesterol 80 > OR = 46 mg/dL [facility] Comment:{HDL CHOLESTEROL {[id number]) Triglyceride 112 <150 mg/dL [facility] Comment:{TRIGLYCERIDES {[id number]) LDL Cholesterol 130(H) <130 mg/dL (calc) [facility] Comment: {LDL-CHOLESTEROL {[id number]) Desirable range <100 mg/dL for patients with CHD or diabetes and <70 mg/dL for diabetic patients with known heart disease. CHOL/HDL Ratio 2.9 < OR = 5.0 (calc) [facility] Comment:{CHOL/HDLC RATIO {[id number]) Cholesterol Non-HDL 152 mg/dL (calc) [facility] Comment: {NON HDL CHOLESTEROL {[id number]) Target for non-HDL cholesterol is 30 mg/dL higher than LDL cholesterol target. 12/29/2015 10:0 4 AM EDT 12/29/2015 3:11 PM EDT Narrative Resulting Agency Comment [id number] Radha Spangler INDUSTRIAL ECONOMICS TEACHER LABORATORY Final Result Performing Organization Address [facility]/ZIP Co de Phone Number [facility] [address] [place] [address] * ALANINE AMINOTRANSFERASE (ALT), SERUM (12/29/2015 10:04 AM EDT) ALT (SGPT) 25 6 - 29 U/L [facility] Comment:{ALT {[id number]) 12/29/2015 10:0 4 AM EDT 12/29/2015 3:11 PM EDT Narrative Resulting Agency Comment [id number] Radha Spangler INDUSTRIAL ECONOMICS TEACHER LAB SAME DAY RESULT Final Re sult Performing Organization Address [facility]/ZIP Co de Phone Number [facility] [address] [place] [address] documented in this encounter Visit Diagnoses Diagnosis Cervicodynia Cervicalgia Hyperlipidemia, unspecified hyperlipidemia type Essential hypertension with goal blood pressure less than 140/90 documented in this encounter Care Teams Audio Operator Relationship Specialty Start Date End Date Brandyn Pagan MD PCP - General Internal Medicine 08/07/15 02/02/17 Radha Spangler NP PCP - Backup PCP Internal Medicine 01/11/16 02/02/17 Unknown Pcp, Non Rmg PCP - General 02/03/17 documented as of this encounter
--- OUTSIDE RECORDS SUMMARY | 2025-01-27 11:58 | XMS_ITS | Encounter Summary ---
Author Organization [facility] Address [address] [place] [address] Care Team Providers Care Laboratory Technology Teacher Name Role Phone Brandyn Pagan MD Primary Care Provider Radha Cuevas NP Unavailable Unavailable Unknown Pcp, Non Rmg Primary Care Provider Unava ilable Reason for Visit * Reason Onset Date Comments Labs/orders 12/28/2015 Creatinine Order for Radiology with Contrast Encounter Details Date Type Department Care Team ([facility] st Contact Info) Description 12/28/2015 Telephone [address] [facility] Magnetic Resonance Imaging [address] [place] [address] Radha Spangler NP Labs/orders (Creatinine [...] Cervicalgia documented in this encounter Care Teams Laboratory Technology Teacher Relationship Specialty Start Date End Date Brandyn Pagan MD PCP - General Internal Medicine 08/07/15 02/02/17 Radha Spangler NP PCP - Backup PCP Internal Medicine 01/11/16 02/02/17 Unknown Pcp, Non Rmg PCP - General 02/03/17 documented as of this encounter
--- OUTSIDE RECORDS SUMMARY | 2025-01-27 11:58 | XMS_ITS | Patient Health Record ---
Author Organization [facility] Address [address] [place] [address] Care Team Providers Care Accounts Administrator Name Role Phone Gaby Gilmore Primary Care Provider Elva giraldoMarcelino Galindoeed Unavailable [phone] Allergies No Known Allergies Reason For Referral No Information Medications Medication SIG (Take, Route, Frequency, Duration) Notes Start Date End Date Status HYDROcodone-Acetamin ophen 5-325 MG 1 (one) Oral two times daily, as needed For NON ACUTE PAIN, [place] pamphlet given, [employer] checked 04/22/2021 Active Problems Problem Type SNOMED Code ICD Code Onset Dates Problem Status W/U Status Risk Notes Problem Lumbosacral spondylosis without myelopathy (disorder) (29596473) Spondylosis without myelopathy or radiculopathy, lumbosacral region (M47.817) Active confirmed Problem Title:SPONDYL OSIS OF LUMBOSACRAL REGION Problem Lumbar radiculopathy (860556683) Radiculopathy, lumbar region (M54.16) Active confirmed Comment:Acute complicated, Problem Post-laminectom y syndrome (08153231) Postlaminectomy syndrome, not elsewhere classified (M96.1) Active confirmed Problem Title:POSTLAM INECTOMY SYNDROME OF CERVICAL REGION Problem Neurogenic claudication (602232865) Spinal stenosis, lumbar region with neurogenic claudication [...]
--- OUTSIDE RECORDS SUMMARY | 2025-01-27 11:58 | XMS_ITS | Encounter Summary ---
Author Organization [facility] Address [address] [place] [address] Care Team Providers Care Electric Refrigerator Preparer Name Role Phone Brandyn Pagan MD Primary Care Provider Unavaila Radha Fink NP Unavailable Unavailable Unknown Pcp, Non Rmg Primary Care Provider Unava ilable Encounter Details Date Type Department Care Team (Late st Contact Info) Description 06/09/2016 Orders Only [facility] [address] [place] [address] Radha Spangler NP Social History Tobacco Use [...] in this encounter Results * Due to [facility] law, this organization might not [...] approximately 13% higher for people identified as -Surinamese. GFR 42(L) > OR = 60 mL/min/1. [...] needs for GFR calculation. Resulting Agency Comment [id number] Radha Spangler NP LABORATORY Final Result Performing Organization Address [facility] Co de Phone Number [facility] [address] [place] [address] * ALANINE AMINOTRANSFERASE (ALT), SERUM (06/09/2016 11:23 AM EST) ALT (SGPT) 25 6 - 29 U/L [facility] 06/09/2016 11:2 3 AM EST 06/09/2016 4:58 PM EST Narrative Resulting Agency Comment [id number] Radha Spangler NP LAB SAME DAY RESULT Final Re sult Performing Organization Address [facility] de Phone Number [facility] [address] [place] [address] * (ABNORMAL) LIPID PANEL WITH REFLEX TO [...] 4:58 PM EST Narrative Resulting Agency Comment [id number] Radha Spangler NP LABORATORY Final Result Performing Organization Address [facility] Co de Phone Number [facility] [address] [place] [address] documented in this encounter Visit Diagnoses Diagnosis Hyperlipidemia, unspecified hyperlipidemia type Essential hypertension with goal blood pressure less than 140/90 documented in this encounter Care Teams Electric Refrigerator Preparer Relationship Specialty Start Date End Date Brandyn Pagan MD PCP - General Internal Medicine 08/07/15 02/02/17 Radha Spangler NP PCP - Backup PCP Internal Medicine 01/11/16 02/02/17 Unknown Pcp, Non [facility] PCP - General 02/03/17 documented as of this encounter
--- OUTSIDE RECORDS SUMMARY | 2025-01-27 11:58 | XMS_ITS | Encounter Summary ---
Author Organization [facility] Address [address] [place] [address] Care Team Providers Care Camera Technician Name Role Phone Brandyn Pagan MD Primary Care Provider Unavaila Radha Fink NP Unavailable Unavailable Unknown Pcp, Non Rmg Primary Care Provider Unava ilable Encounter Details Date Type Department Care Team (Late st Contact Info) Description 01/04/2017 Orders Only [facility] [address] [place] [address] Radha Spangler NP Social History Tobacco Use [...] 017 9:26 AM EDT) No Eineberg, Radha, HELPDESK SPECIALIST documented as of this encounter Procedures * Due to [place] [employer] law, this organization might not be sharing [...] this encounter Results * Due to [place] [employer] law, this organization might not be sharing negative HIV tests. * (ABNORMAL) BASIC METABOLIC PANEL WITH (GFR) (01/04/2017 1:11 PM EDT) Glucose 97 65 - 99 mg/dL [facility] Comment:Fasting reference in [facility] Urea Nitrogen Blood (BUN) 27(H) 7 - 25 mg/dL [facility] Creatinine 1.18(H) 0.50 - 0.99 mg/dL [facility] Comment: For patients >49 years of age, the reference limit for Creatinine is approximately 13% higher for people identified as -Yemeni. GFR 48(L) > OR = 60 mL/min/1. [...] needs for GFR calculation. Resulting Agency Comment [id number] Radha Spangler NP LABORATORY Final Result Performing Organization Address [facility] Co de Phone Number [facility] [address] [place] [address] * HEPATIC FUNCTION PANEL (ALT,AST,ALK PH,BILI'S,TP,ALB) (01/04/2017 [...] 10:19 PM EDT Narrative Resulting Agency Comment [id number] Radha Spangler NP LABORATORY Final Result Performing Organization Address [facility] Co de Phone Number [facility] [address] [place] [address] * (ABNORMAL) HEMOGLOBIN A1C (01/04/2017 1:11 PM [...] 10:19 PM EDT Narrative Resulting Agency Comment [id number] Radha Spangler NP LABORATORY Final Result Performing Organization Address [facility] de Phone Number [facility] [address] [place] [address] * (ABNORMAL) LIPID PANEL WITH REFLEX TO [...] 10:19 PM EDT Narrative Resulting Agency Comment [id number] Radha Spangler NP LABORATORY Final Result Performing Organization Address [facility] de Phone Number [facility] [address] [place] [address] * (ABNORMAL) CBC INCLUDES DIFFERENTIAL AND PLATELET [...] 10:19 PM EDT Narrative Resulting Agency Comment [id number] Radha Spangler NP LAB SAME DAY RESULT Final Re sult [facility] [address] [place] [address] documented in this encounter Visit Diagnoses Diagnosis Nail discoloration Other specified disease of nail Transaminitis Nonspecific elevation of levels of transaminase or lactic acid dehydrogenase (LDH) Benign essential HTN Essential hypertension, benign CKD (chronic kidney disease), stage III (HCC) Chronic kidney disease, Stage III (moderate) documented in this encounter Care Teams Camera Technician Relationship Specialty Start Date End Date Brandyn Pagan MD PCP - General Internal Medicine 08/07/15 02/02/17 Radha Spangler NP PCP - Backup PCP Internal Medicine 01/11/16 02/02/17 Unknown Pcp, Non Rmg PCP - General 02/03/17 documented as of this encounter
--- OUTSIDE RECORDS SUMMARY | 2025-01-27 11:58 | XMS_ITS | Encounter Summary ---
Author Organization [facility] Address [address] [place] [address] Care Team Providers Care Magician/Illusionist Name Role Phone Unknown Pcp, Non Rmg Primary Care Provider Unava ilable Encounter Details Date Type Department Care Team (Late st Contact Info) Description 02/03/2017 Orders Only [facility] [address] [place] [id number] Unknown Pcp, Non Rmg Social History Tobacco [...] on filedocumented in this encounter Care Teams Magician/Illusionist Relationship Specialty Start Date End Date Unknown Pcp, Non Rmg PCP - General 02/03/17 documented as of this encounter
--- OUTSIDE RECORDS SUMMARY | 2025-01-27 11:58 | XMS_ITS | Clinical Summary ---
Author Organization [facility] linmakeena Address [address] [place] [address] Care Team Providers Care Security And Compliance Project Manager Name Role Phone Pcp, No Primary Care Provider [phone] Social History Tobacco Use Types Packs/Day Years [...] Interventions ([facility]) 1969 DTaP/Tdap/Td Vaccines ([facility]) (1 - Tdap) 1970 Colorectal Cancer Screening 45 -75 Yrs (or HM Modifier ) 1996 Colorectal Cancer: FLEXIBLE SIGMOIDOSCOPY Screening every 5 yrs 1996 Colorectal Cancer: Fecal Imm unochemical Test (FIT) Annually [facility] 1996 Colorectal Cancer: High-sens itivity gFOBT Screening Annually [facility] 1996 Colorectal Cancer: Stool Col oguard Screening every 3 yrs 1996 Colorectal Cancer:CT Colonography Screening every 5 yr s 1996 Breast Cancer: Screening [place] age 50-74 yrs (or HM Modifier)([facility]) 2001 Pneumococcal Vaccination Scr eening: Patients 50+ yrs of age ([facility]) (1 of 1 - PCV) 2001 Zoster/Shingles Vaccine Seri es Screening: Adults aged 18+ yrs (or HM Modifiers)([facility]) (1 of 2) 2001 Osteoporosis Screening to Pr event Fractures: Women aged 65 years+ ([facility]) 2016 COVID-19 Vaccine Screening: Initial Series and Booster Status ([facility]) (2023- season) 2024 Flu Vaccination: Ages 65+: Y early High Dose Recommended (or Modifier)([facility]) 12/20/2024 RSV Vaccines (1 - 1-dose 75+ series) 2026 Medical Devices Not on file Insurance Care Teams Security And Compliance Project Manager Relationship Specialty Start Date End Date Pcp, No PCP - General Family Medicine 08/15/20
--- OUTSIDE RECORDS SUMMARY | 2025-01-27 11:58 | XMS_ITS | Encounter Summary ---
Author Organization [facility] Address [address] [place] [address] Care Team Providers Care Svp Innovation Partnerships Name Role Phone Brandyn Pagan MD Primary Care Provider Unavaila Radha Fink NP Unavailable Unavailable Unknown Pcp, Non [facility] Primary Care Provider Unava ilable Encounter Details Date Type Department Care Team (Late st Contact Info) Description 12/02/2016 Orders Only [facility] [address] [place] [phone] Brandyn Pagan MD Social History Tobacco Use [...] Cervicalgia documented in this encounter Care Teams Svp Innovation Partnerships Relationship Specialty Start Date End Date Brandyn Pagan MD PCP - General Internal Medicine 08/07/15 02/02/17 Radha Spangler NP PCP - Backup PCP Internal Medicine 8/22/16 9/14/17 Unknown Pcp, Non [facility] PCP - General 02/03/17 documented as of this encounter
--- OUTSIDE RECORDS SUMMARY | 2025-01-27 11:58 | XMS_ITS | Encounter Summary ---
Author Organization [facility] Address [address] [place] [address] Care Team Providers Care Set Up Mechanic Crown Assembly Machine Name Role Phone Brandyn Pagan MD Primary Care Provider Unavaila Radha Fink NP Unavailable Unavailable Unknown Pcp, Non [facility] Primary Care Provider Unava ilable Encounter Details Date Type Department Care Team (Late st Contact Info) Description 12/05/2016 Orders Only [facility] [address] [place] [address] Brandyn Pagan MD Social History Tobacco Use [...] Cervicalgia documented in this encounter Care Teams Set Up Mechanic Crown Assembly Machine Relationship Specialty Start Date End Date Brandyn Pagan MD PCP - General Internal Medicine 08/07/15 02/02/17 Radha Spangler NP PCP - Backup PCP Internal Medicine 01/11/16 02/02/17 Unknown Pcp, Non [facility] PCP - General 02/03/17 documented as of this encounter
--- OUTSIDE RECORDS SUMMARY | 2025-01-27 11:59 | XMS_ITS | Encounter Summary ---
Author Organization [facility] Address [address] [place] [address] Care Team Providers Care Cellar Worker Name Role Phone Bijal Fox TECHNICAL REPORT WRITER Primary Care Provider [phone] Encounter Details Date Type Department Care Team (Late st Contact Info) Description 07/20/2024 Orders Only [facility] Site Department [address] [place] [address] Magy Sawyer NP 100 [facility] [address] [place] [phone] Swelling of limb (Primary Dx) Social History Tobacco Use Types Packs/Day Years Used Date Smoking Tobacco: Former Smokeless Tobacco: Never Comments:: Alcohol Use Standard Drinks/Week Comments Not Currently 0 (1 standard drink = 0.6 oz pur e alcohol) [facility] Utilities Answer Date Recorded In the past 12 months has th e [employer], gas, oil, or water [employer] threatened to shut off services in your [...] Upcoming Encounters Date Type Department Care Team ([facility] Contact Info) Description 02/04/2025 2:15 PM EDT Follow-Up [facility] 100 [facility] [address] [place] [address] John Hendricks MD [address] [address] 07/16/2025 10:00 AM EST Follow-Up [facility] 100 [facility] Cardiology 100 [facility] [address] [place] [address] Mabel Onofre NP 100 [facility] [address] [place] [address] documented as of this encounter Results * Due to [place] state law, this organization might not be sharing negative HIV tests. * N-terminal ProBrain Natriuretic Peptide - [facility] Only (08/09/2024 1:16 PM EDT) Pro-B-Type Natriuretic Peptide 203 <=900 pg/mL 08/09/2024 2:31 PM EDT [facility] Comment: RULE IN CHF >/= [...] 08/09/2024 1:33 PM EDT us Magy Sawyer TECHNICAL REPORT WRITER LAB BLOOD ORDERABLES Final Res ult [facility] [address] [place] [address], documented in this encounter Visit Diagnoses Diagnosis Swelling of limb- Primary documented in this encounter Care Teams Cellar Worker Relationship Specialty Start Date End Date Bijal Fox TECHNICAL REPORT WRITER 100 [facility] [address] [place] [address] PCP - General Family Medicine 05/30/24 documented as of this encounter
--- OUTSIDE RECORDS SUMMARY | 2025-01-27 11:59 | XMS_ITS | Clinical Summary ---
Author Organization [facility] Address [address] [place] [address] Care Team Providers Care Software Design Analyst Name Role Phone Unknown Pcp, Non [...] (when compared with previous ct scan from [facility], but NEW lung nodule R middle lobe 2 mm. Will f/u with screen CT in 1 year HTN 11/02/2015 Cervical spondylosis with radiculopathy 11/02/19 16 Flat foot (pes planus) (acquired), left foot Psoriasis 11/02/2015 Major depression in partial remission 11/02/2015 Overview (12/21/2016): Refer to PCP cpe dated 01/11/16 Psych: Reports anxiety and depression are stable. Sees Dr. Alvarado psychiatrist, in [place]. He prescribes lamotrigine, duloxetine, tramadol, Adderall. 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 Irene Christensen in [place]. Confirmed with their office that she is [...] 2 to 1 times a day Immunizations Immunization Administration Dates Next Due Influenza,injectable,quad,Prsrv Fr 03/11/2016 [...] 71 01/27/2017 9:26 AM EDT Temperature 37.1 C (98.8 F) 01/19/2017 10:41 AM EDT Respiratory Rate 18 10/21/2016 4:42 PM EDT [...] COVID-19 Vaccine (1 - 2023-2 5 season) 2025 Influenza (#1) 2025 03/11/2016 DTaP/Tdap/Td (2 - Td or Tdap) 01/10/2026 01/11/2016 RSV (1 - 1-dose 75+ series) 2026 Bone Density Completed 01/27/2014 Pap Smear Discontinued 06/05/2014 Zoster (Zostavax) Discontinued 01/11/2016 HPV Vaccine (No Doses Required) Completed Hep A Aged Out No longer eligi [...] 9:26 AM EDT) No Radha Spangler, MEY Procedures * Due to [place] [employer] law, this organization might not be sharing negative HIV tests. Procedure Name Priority Date/Time Associated Diagnosis Comments MAMMOGRAPHY-BILATERAL 06/05/2014 PAP SMEAR 06/05/2014 from Last 3 Months or Most Recently Relevant to Health Maintenance Results * Due to [place] [employer] law, this organization might not be sharing negative HIV tests. * PAP SMEAR (06/05/2014) Narrative Transcriptions Amol Jon - 01/29/2016 12:00 AM EDT Amol Jon PATHOLOGY Final Result * MAMMOGRAPHY-BILATERAL (06/05/2014) 06/05/2014 Narrative Transcriptions Amol Jon - 01/29/2016 12:00 AM EDT Amol Jon GENERAL IMAGING- OTHER Final Res ult from Last 3 Months or Most Recently Relevant to Health Maintenance Advance Directives Documents on File Type Date Recorded Patient Fermenter Expl anation Advance Directives and Living Will 03/11/2016 Care Teams Software Design Analyst Relationship Specialty Start Date End Date Unknown Pcp, Non [facility] PCP - General 02/03/17
--- OUTSIDE RECORDS SUMMARY | 2025-01-27 11:59 | XMS_ITS | Encounter Summary ---
Author Organization [facility] Address [address] [place] [address] Care Team Providers Care Sports Journalist Name Role Phone Brandyn Pagan MD Primary Care Provider Unavaila Radha Fink NP Unavailable Unavailable Unknown Pcp, Non [facility] Primary Care Provider Unava ilable Encounter Details Date Type Department Care Team (Late st Contact Info) Description 09/21/2016 Orders Only [facility] Pre-Admission Testing [address] [place] [address] Filiberto May MD [address] [place] [id number] Social History Tobacco Use Types Packs/Day Years [...] this encounter Procedures * Due to [place] state law, this [...] approximately 13% higher for people identified as -Montserratian. GFR 50(L) > OR = 60 mL/min/1. [...] needs for GFR calculation. Resulting Agency Comment [id number] us Filiberto May MD LABORATORY Final Result [facility] [address] [place] [address] documented in this encounter Visit Diagnoses Diagnosis BILLIE (obstructive sleep apnea) Obstructive sleep apnea (adult) (pediatric) documented in this encounter Care Teams Sports Journalist Relationship Specialty Start Date End Date Brandyn Pagan MD PCP - General Internal Medicine 08/07/15 02/02/17 Radha Spangler NP PCP - Backup PCP Internal Medicine 01/11/16 02/02/17 Unknown Pcp, Non [facility] PCP - General 02/03/17 documented as of this encounter
--- OUTSIDE RECORDS SUMMARY | 2025-01-27 11:59 | XMS_ITS | Encounter Summary ---
Author Organization [facility] Address [address] [place] [address] Care Team Providers Care Software Lead Name Role Phone Brandyn Pagan MD Primary Care Provider Radha Cuevas NP Unavailable Unavailable Unknown Pcp, Non [facility] Primary Care Provider Unava ilable Encounter Details Date Type Department Care Team (Late st Contact Info) Description 10/06/2015 Orders Only [facility] [address] [place] [address] Brandyn Pagan MD Social History Tobacco Use [...] proper risk profile. I cannot run the [place] [employer] risk calculator. The decision related [...] this encounter Procedures * Due to [place] [employer] law, this organization might not be sharing [...] this encounter Results * Due to [place] [employer] law, this organization might not be sharing negative HIV tests. * (ABNORMAL) URINALYSIS, DIP ONLY ( SITE STAT ONLY) (10/06/2015 11:19 AM EDT) COLOR (URINE) YELLOW [facility] (CLIA# [id number]) APPEARANCE (URINE) CLOUDY [facility] (CLIA# [id number]) SPECIFIC GRAVITY 1.020 1.001 - 1.035 [facility] (CLIA# [id number]) PH (URINE) 5.0 5.0 - 8.0 [facility] (CLIA# [id number]) PROTEIN (URINE) TRACE(A) Neg [facility] (CLIA# [id number]) GLUCOSE (URINE) NEGATIVE Neg [facility] (CLIA# [id number]) Ketones (Urine) NEGATIVE Neg [facility] (CLIA# [id number]) BILIRUBIN (URINE) NEGATIVE Neg [facility] (CLIA# [id number]) BLOOD (URINE) NEGATIVE Neg [facility] (CLIA# [id number]) Leukocyte esterase (Urine) 1+(A) [facility] (CLIA# [id number]) NITRITE (URINE) POSITIVE(A) Neg [facility] (CLIA# [id number]) Urine specimen obtained by clean catch procedure (specimen) 10/06/2015 11:19 AM EDT Narrative [facility] (CLIA# [id number]) - 10/06/2015 11:19 AM EDT Micro and culture already ordered per provider. us Brandyn Pagan MD LAB SAME DAY RESULT Final Resul t [facility] (CLIA# [id number]) [address] [place] [address] * (ABNORMAL) CULTURE, URINE, ROUTINE (10/06/2015 10:11 AM EDT) Pathologist [facility] Bacteria culture (Urine) SEE NOTE(A) [facility] Comment: {CULTURE, URINE, ROUTINE {[id number]) CULTURE, URINE, ROUTINE MICRO NUMBER: [id number] TEST STATUS: FINAL SPECIMEN SOURCE: URINE, CLEAN CATCH SPECIMEN QUALITY: ADEQUATE RESULT: Greater than 100,000 CFU/mL of Escherichia coli E.coli INT VLADIMIR AMOX/CLAVULANATE S <=2 AMPICILLIN S <=2 AMP/SULBACTAM S <=2 CEFAZOLIN NR <=4 1 CEFEPIME S <=1 [...] to to confirm susceptibility to parenteral cefazolin. 10/06/2015 10:1 1 AM EDT 10/06/2015 6:19 PM EDT Narrative Resulting Agency Comment [id number] Brandyn Pagan MD LABORATORY Final Result [facility] [address] [place] [address] * (ABNORMAL) URINALYSIS, MICROSCOPIC (10/06/2015 10:11 AM EDT) WBC (Urine) 20-40(A) < OR = 5 /HPF [facility] Comment:{WBC {[id number]) RBC (Urine Sed) 0-2 < OR = 2 /HPF [facility] Comment:{RBC {[id number]) Epithelial cells.squamous (Urine sed) NONE SEEN < OR = 5 /HPF [facility] Comment:{SQUAMOUS EPITHELIAL CELLS {[id number]) Bacteria (Urine) MANY(A) NONE SEEN /HPF [facility] Comment:{BACTERIA {[id number]) Hyaline casts (Urine sed) NONE SEEN NONE SEEN /LPF [facility] Comment:{HYALINE CAST {[id number]) 10/06/2015 10:1 1 AM EDT 10/06/2015 6:19 PM EDT Narrative Resulting Agency Comment [id number] Brandyn Pagan MD LAB SAME DAY RESULT Final Resul t Performing Organization Address [facility] [place] [facility] Co de Phone Number [facility] [address] [place] [address] * GLUCOSE (BLOOD) (10/06/2015 10:11 AM EDT) Glucose 86 65 - 99 mg/dL [facility] Comment: {GLUCOSE {[id number]) Fasting reference interval 10/06/2015 10:1 1 AM EDT 10/06/2015 6:19 PM EDT Narrative Resulting Agency Comment [id number] Brandyn Pagan MD LAB SAME DAY RESULT Final Resul t Performing Organization Address [facility] [place] [facility] de Phone Number [facility] [address] [place] [address] * (ABNORMAL) LIPID PANEL WITH REFLEX TO DIRECT LDL (10/06/2015 10:11 AM EDT) Cholesterol 243(H) 125 - 200 mg/dL [facility] Comment:{CHOLESTEROL, TOTAL {[id number]) HDL Cholesterol 71 > OR = 46 mg/dL [facility] Comment:{HDL CHOLESTEROL {[id number]) Triglyceride 163(H) <150 mg/dL [facility] Comment:{TRIGLYCERIDES {[id number]) LDL Cholesterol 139(H) <130 mg/dL (calc) [facility] Comment: {LDL-CHOLESTEROL {[id number]) Desirable range <100 mg/dL for patients with CHD or diabetes and <70 mg/dL for diabetic patients with known heart disease. CHOL/HDL Ratio 3.4 < OR = 5.0 (calc) [facility] Comment:{CHOL/HDLC RATIO {[id number]) Cholesterol Non-HDL 172(H) mg/dL (calc) [facility] Comment: {NON HDL CHOLESTEROL {[id number]) Target for non-HDL cholesterol is 30 mg/dL higher than LDL cholesterol target. 10/06/2015 10:1 1 AM EDT 10/06/2015 6:19 PM EDT Narrative Resulting Agency Comment [id number] Brandyn Pagan MD LABORATORY Final Result [facility] [address] [place] [address] documented in this encounter Visit Diagnoses Diagnosis Lipid screening Screening for lipoid disorders Screening for cardiovascular condition Screening for other and unspecified cardiovascular conditions Screening for diabetes mellitus Urinary tract infection, site unspecified documented in this encounter Care Teams Software Lead Relationship Specialty Start Date End Date Brandyn Pagan MD PCP - General Internal Medicine 08/07/15 02/02/17 Radha Spangler NP PCP - Backup PCP Internal Medicine 01/11/16 02/02/17 Unknown Pcp, Non [facility] PCP - General 02/03/17 documented as of this encounter
--- OUTSIDE RECORDS SUMMARY | 2025-01-27 11:59 | XMS_ITS | Encounter Summary ---
Author Organization [facility] Address [address] [place] [address] Care Team Providers Care Cementer Machine Name Role Phone Brandyn Pagan MD Primary Care Provider UnavailRadha Mas NP Unavailable Unavailable Unknown Pcp, Non [facility] Primary Care Provider Unava ilable Encounter Details Date Type Department Care Team (Late st Contact Info) Description 03/09/2016 Orders Only [facility] [address] [place] [address] Brandyn Pagan MD Social History Tobacco Use [...] * Brandyn Pagan - 03/11/2016 7:46 AM EDTQuick Note: The results of this test are [...] encounter Procedures * Due to [place] [employer] law, this organization might not be sharing negative HIV tests. Procedure Name Priority Date/Time Associated Diagnosis Comments CLOSTRIDIUM DIFFICILE TOXIN/GDH WITH REFLEX TO PCR Routine 03/09/2016 12:41 PM EDT Diarrhea, unspecified type documented in this encounter Results * Due to [place] [employer] law, this organization might not be sharing negative HIV tests. * CLOSTRIDIUM DIFFICILE TOXIN/GDH WITH REFLEX TO PCR (03/09/2016 12:41 PM EDT) Clostridium Difficile (Stool) SEE NOTE [facility] Comment: {CLOSTRIDIUM DIFFICILE TOXIN/GDH W/REFL TO PCR {[id number]) CLOSTRIDIUM DIFFICILE TOXIN/GDH W/REFL TO PCR MICRO NUMBER: [id number] TEST STATUS: FINAL SPECIMEN SOURCE: STOOL SPECIMEN QUALITY: ADEQUATE GDH ANTIGEN: Not Detected TOXIN A AND B: Not Detected COMMENT: No toxigenic C. difficile detected 03/09/2016 12:4 1 PM EDT 03/09/2016 7:22 PM EDT Narrative Resulting Agency Comment [id number] Brandyn Pagan MD LABORATORY Final Result [facility] [address] [place] [address] documented in this encounter Visit Diagnoses Diagnosis Diarrhea, unspecified type documented in this encounter Care Teams Cementer Machine Relationship Specialty Start Date End Date Brandyn Pagan MD PCP - General Internal Medicine 08/07/15 02/02/17 Radha Spangler NP PCP - Backup PCP Internal Medicine 01/11/16 02/02/17 Unknown Pcp, Non [facility] PCP - General 02/03/17 documented as of this encounter
--- OUTSIDE RECORDS SUMMARY | 2025-01-27 11:59 | XMS_ITS | Clinical Summary ---
Author Organization [facility] Address [address] [place] [address] Care Team Providers Care Molasses Feed Mixer Name Role Phone Unavailable Primary Care Provider [...]
--- OUTSIDE RECORDS SUMMARY | 2025-01-27 11:59 | XMS_ITS | Encounter Summary ---
Author Organization [facility] Address [address] [place] [address] Care Team Providers Care Pest Controller Name Role Phone Bijal Fox ORACLE MANAGER Primary Care Provider Encounter Details Date Type Department Care Team (Late st Contact Info) Description 08/13/2024 Orders Only [facility] [address] [place] [address] Magy Sawyer NP 100 [facility] [address] [place] [phone] Vitamin D deficiency (Primary Dx) Social History Tobacco Use Types Packs/Day Years Used Date Smoking Tobacco: Former Smokeless Tobacco: Never Comments:: Alcohol Use Standard Drinks/Week Comments Not Currently 0 (1 standard drink = 0.6 oz pur e alcohol) [facility] Utilities Answer Date Recorded In the past 12 months has th e [employer], gas, oil, or water [employer] threatened to shut off services in your [...] Upcoming Encounters Date Type Department Care Team ([facility] st Contact Info) Description 02/04/2025 2:15 PM EDT Follow-Up [facility] Nephrology 100 [facility] [address] [place] [address] John Hendricks MD [address] [address] 07/16/2025 10:00 AM EST Follow-Up [facility] 100 [facility] Cardiology 100 [facility] [address] [place] [address] Mabel Onofre NP 100 [facility] [address] [place] [address] documented as of this encounter Results * Due to [place] state law, this organization might not be sharing negative HIV tests. * Vitamin D, 25-Hydroxy, Total, Immunoassay (09/23/2024 1:46 PM EDT) Vitamin D 25-OH 36.10 30.00 - 80.00 ng/mL 09/24/2024 12:40 PM EDT [facility] Comment:[place] REVIEWED Blood Structure of peripheral vein / Unknown Venipuncture / Unknown 09/23/2024 1:46 PM EDT 09/23/2024 2:06 PM EDT us Magy Sawyer ORACLE MANAGER LAB BLOOD ORDERABLES Final Res ult [facility] [address] [place] [address], documented in this encounter Visit Diagnoses Diagnosis Vitamin D deficiency- Primary documented in this encounter Care Teams Pest Controller Relationship Specialty Start Date End Date Bijal Fox NP 100 [facility] [address] [place] [address] PCP - General Family Medicine 05/30/24 documented as of this encounter
--- OUTSIDE RECORDS SUMMARY | 2025-01-27 11:59 | XMS_ITS ---
Author Name JOYCELYN BORJA Address [address] [place] [address] Phone Organization [facility] [place] [facility] Address [address] [address] Phone Care Team Providers Care 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 Semiconductor Wafers Name Role Phone MD JOYCELYN BORJA Unavailable JUVE STEVE Unavailable VASQUEZJUAN LUIS Unavailable JUVE STEVE Unavailable SHEREEN STINSON Unavailable GOLD, VALERIE Unavailable GOLD, VALERIE Unavailable LORCA, NIXON Unavailable ALLERGIES, ADVERSE REACTIONS AND ALERTS Allergy Name Allergy Date Allergy Status Allergy Severity Allergy Reaction NO KNOWN DRUG ALLERGIES MEDICATIONS RxNorm Brand Name Prescription Ordered Value Order Unit Start Date Date Status Fill Status Indications [id number] Ritalin 10 mg tablet SIG: Ritalin 10 mg oral tablet, 30 days, Dispense #90 Tablet, 0 Refills, Directions: Take 1 oral tablet Three times a day 90 tablet 2021 Historic [id number] Ritalin 10 mg tablet SIG: Ritalin 10 mg oral tablet, 30 days, Dispense #90 Tablet, 0 Refills, Directions: Take 1 oral tablet Three times a day 90 tablet 2021 Historic [id number] Ritalin 10 mg tablet SIG: Ritalin 10 mg oral tablet, 30 days, Dispense #90 Tablet, 0 Refills, Directions: Take 1 oral tablet Three times a day 90 tablet 2021 Historic [id number] Ritalin 10 mg tablet SIG: Ritalin 10 mg oral tablet, 30 days, Dispense #90 Tablet, 0 Refills, Directions: Take 1 oral tablet Three times a day 90 tablet 2021 Historic [id number] Ritalin 10 mg tablet SIG: Ritalin 10 mg oral tablet, 30 days, Dispense #90 Tablet, 0 Refills, Directions: Take 1 oral tablet Three times a day 90 tablet 2021 Historic [id number] escitalo pram oxalate 10 mg tablet SIG: escitalopram oxalate 10 mg oral tablet, 45 days, Dispense #45 Tablet, 2 Refills, Directions: Take 1.5 oral tablet once a day 45 tablet 2021 Historic [id number] [place] Thyroid 30 mg tablet SIG: [place] Thyroid 30 mg oral tablet, 30 days, Dispense #60 Tablet, 2 Refills, Directions: Take 1 oral tablet Twice times a day 60 tablet 2021 Historic [id number] Ritalin 10 mg tablet SIG: Ritalin 10 mg oral tablet, 30 days, Dispense #90 Tablet, 0 Refills, Directions: Take 1 oral tablet Three times a day 90 tablet 2021 Historic 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, PREDOM INATTENTIVE TYPE [id number] [place] Thyroid 30 mg tablet SIG: [place] Thyroid 30 mg oral tablet, 90 days, Dispense #180 Tablet, 1 Refills, Directions: Take 1 oral tablet Twice times a day 180 tablet 2021 Historic [id number] escitalo pram oxalate 10 mg tablet SIG: escitalopram oxalate 10 mg oral tablet, 90 days, Dispense #135 Tablet, 1 Refills, Directions: Take 1.5 oral tablet once a day 135 tablet 2021 Historic [id number] Ritalin 10 mg tablet SIG: Ritalin 10 mg oral tablet, 30 days, Dispense #90 Tablet, 0 Refills, Directions: Take 1 oral tablet Three times a day 90 tablet 2021 Historic 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, PREDOM INATTENTIVE TYPE [id number] Ritalin 10 mg tablet SIG: Ritalin 10 mg oral tablet, 30 days, Dispense #90 Tablet, 0 Refills, Directions: Take 1 oral tablet Three times a day 90 tablet 2021 Historic 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 5 tablet 2022 Historic F40.243 - FEAR OF FLYING [id number] prazosin 1 mg capsule SIG: prazosin 1 mg oral capsule, 30 days, Dispense #90 Capsule, 0 Refills, Directions: Take 1-3 caps PO HS. Monitor BP. 90 capsule 2022 Historic [id number] Ritalin 10 mg tablet SIG: Ritalin 10 mg oral tablet, 30 days, Dispense #45 Tablet, 0 Refills, Directions: Take one tab in am and 1/2 tab at 1 pm. 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 Monitor BP. 90 capsule 2022 Historic [id number] Ritalin 10 mg tablet SIG: Ritalin 10 mg oral tablet, 30 days, Dispense #45 Tablet, 0 Refills, Directions: Take one tab in am and 1/2 tab at 1 pm. 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 120 capsule 2022 Historic [id number] Ritalin 10 mg tablet SIG: Ritalin 10 mg oral tablet, 30 days, Dispense #45 Tablet, 0 Refills, Directions: Take one tab in am and 1/2 tab at 1 pm. 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, PREDOM INATTENTIVE TYPE [id number] Ritalin 10 mg tablet SIG: Ritalin 10 mg oral tablet, 30 days, Dispense #60 Tablet, 0 Refills, Directions: Take 1 oral tablet Twice daily 60 tablet 2023 Historic 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, PREDOM INATTENTIVE TYPE [id number] Ritalin 10 mg tablet SIG: Ritalin 10 mg oral tablet, 30 days, Dispense #60 Tablet, 0 Refills, Directions: Take 1 oral tablet Twice daily 60 tablet 2023 Historic 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, PREDOM INATTENTIVE TYPE [id number] Ritalin 10 mg tablet SIG: Ritalin 10 mg oral tablet, 30 days, Dispense #60 Tablet, 0 Refills, Directions: Take 1 oral tablet Twice daily 60 tablet 2023 Historic 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, PREDOM INATTENTIVE TYPE [id number] Ritalin 10 mg tablet SIG: Ritalin 10 mg oral tablet, 30 days, Dispense #60 Tablet, 0 Refills, Directions: Take 1 oral tablet Twice daily 60 tablet 2023 Historic 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, PREDOM INATTENTIVE TYPE [id number] Ritalin 10 mg tablet SIG: Ritalin 10 mg oral tablet, 30 days, Dispense #60 Tablet, 0 Refills, Directions: Take 1 oral tablet Twice daily 60 tablet 2023 Historic 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, PREDOM INATTENTIVE TYPE [id number] Ritalin 10 mg tablet SIG: Ritalin 10 mg oral tablet, 30 days, Dispense #90 Tablet, 0 Refills, Directions: Take 1.50 oral tablets Twice daily 90 tablet 2023 Historic 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, PREDOM INATTENTIVE TYPE [id number] Ritalin 10 mg tablet SIG: Ritalin 10 mg oral tablet, 30 days, Dispense #90 Tablet, 0 Refills, Directions: Take 1.50 oral tablets Twice daily 90 tablet 2023 Historic 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, PREDOM INATTENTIVE TYPE [id number] Ritalin 10 mg tablet SIG: Ritalin 10 mg oral tablet, 30 days, Dispense #90 Tablet, 0 Refills, Directions: Take 1.50 oral tablets Twice daily 90 tablet 2023 Historic 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, PREDOM INATTENTIVE TYPE [id number] atomoxet ine 25 mg capsule SIG: atomoxetine 25 mg oral capsule, 30 days, Dispense #30 Capsule, 1 Refills, Directions: Take 1 oral capsule Once daily in AM 30 capsule 2023 Current PROBLEMS Problem Code Problem Description Problem Status Problem Da te Problem End Date K21.1-ZBAVFZ-[id number] AL REFLUX DISEASE WITHOUT ESOPHAGITIS GASTRO-ESOPHAGEAL REFLUX DISEASE WITHOUT ESOPHAGITIS Current 01/06/2022 F90.2-SHGV-HRWFZ HYPERACTIVITY DISORDER, PREDOM INATTENTIVE TYPE ATTN-DEFCT HYPERACTIVITY [...] Observation Ex-smoker Sex: Female 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 TEAM 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 [employer] Wafers Provider ID Role Location Phone JOYCELYN BORJA [id number] [facility] [address] [place] [address] STEVE AN [id number] NURSE PRACTITIONER [address] [place] [address] JUAN LUIS VASQUEZ THERAPIST [address] [address] [place] [address] STEVE AN [id number] NURSE PRACTITIONER [address] [place] [address] SHEREEN STINSON [id number] THERAPIST [address] [address] [place] [phone] VALERIE MALCOLM [id number] NURSE PRACTITIONER [address] [place] [address] VALERIE GOLD [id number] NURSE PRACTITIONER [address] [place] [phone] NIXONJim SHELLEY [id number] THERAPIST [address] [address] [place] [address] INSURANCE PROVIDERS Payer Name Policy type / Coverage type Covered alliance party ID Policy [facility] - MEDICARE Private Health Insurance [id number] SELF
--- OUTSIDE RECORDS SUMMARY | 2025-01-27 11:59 | XMS_ITS | Encounter Summary ---
Author Organization [facility] Address [address] [place] [address] Care Team Providers Care Autopsy Pathologist Name Role Phone Brandyn Pagan MD Primary Care Provider Unavaila Radha Fink NP Unavailable Unavailable Unknown Pcp, Non Rmg Primary Care Provider Unava ilable Encounter Details Date Type Department Care Team (Late st Contact Info) Description 03/18/2016 Orders Only [facility] [address] [place] [address] Radha Spangler NP Social History Tobacco Use [...] this encounter Procedures * Due to [place] [employer] law, this organization might not be sharing [...] this encounter Results * Due to [place] [employer] law, this organization might not be sharing negative HIV tests. * (ABNORMAL) BASIC METABOLIC PANEL WITH (GFR) (03/18/2016 10:02 AM EDT) Glucose 102(H) 65 - 99 mg/dL [facility] Comment: {GLUCOSE {[id number]) Fasting reference interval Urea Nitrogen Blood (BUN) 21 7 - 25 mg/dL [facility] Comment:{UREA NITROGEN (BUN) {[id number]) Creatinine 0.95 0.50 - 0.99 mg/dL [facility] Comment: {CREATININE {[id number]) For patients >49 years of age, the reference limit for Creatinine is approximately 13% higher for people identified as -Nigerien. GFR 63 > OR = 60 mL/min/1 .73m2 [facility] Comment:{eGFR NON-AFR. AMERI CAN {[id number]) GFR () 73 > OR = 60 mL/min/1 .73m2 [facility] Comment:{eGFR AMERIC AN {[id number]) BUN/Creatinine Ratio NOT APPLICABLE (calc) [facility] Comment:{BUN/CREATININE RATI O {[id number]) Sodium 139 135 - 146 mmol/L [facility] Comment:{SODIUM {[id number]) Potassium 4.8 3.5 - 5.3 mmol/L [facility] Comment:{POTASSIUM {[id number]) Chloride 106 98 - 110 mmol/L [facility] Comment:{CHLORIDE {[id number]) Carbon dioxide 25 20 - 31 mmol/L [facility] Comment:{CARBON DIOXIDE {[id number]) Calcium 9.3 8.6 - 10.4 mg/dL [facility] Comment:{CALCIUM {[id number]) 03/18/2016 10:0 2 AM EDT 03/18/2016 [...] needs for GFR calculation. Resulting Agency Comment [id number] Radha Spangler NP LABORATORY Final Result Performing Organization Address City/[facility]/ZIP Co de Phone Number [facility] [address] [place] [address] * (ABNORMAL) CREATINE KINASE (CK), SERUM (03/18/2016 10:02 AM EDT) CPK 196(H) 29 - 143 U/L [facility] Comment:{CREATINE KINASE, TO KENZIE {[id number]) 03/18/2016 10:0 2 AM EDT 03/18/2016 4:21 PM EDT Narrative Resulting Agency Comment [id number] Radha Spangler NP LAB SAME DAY RESULT Final Re sult [facility] [address] [place] [address] * (ABNORMAL) ALANINE AMINOTRANSFERASE (ALT), SERUM (03/18/2016 10:02 AM EDT) ALT (SGPT) 32(H) 6 - 29 U/L [facility] Comment:{ALT {[id number]) 03/18/2016 10:0 2 AM EDT 03/18/2016 4:21 PM EDT Narrative Resulting Agency Comment [id number] Radha Spangler NP LAB SAME DAY RESULT Final Re sult [facility] [address] [place] [address] * (ABNORMAL) LIPID PANEL WITH REFLEX TO DIRECT LDL (03/18/2016 10:02 AM EDT) Cholesterol 274(H) 125 - 200 mg/dL [facility] Comment:{CHOLESTEROL, TOTAL {[id number]) HDL Cholesterol 74 > OR = 46 mg/dL [facility] Comment:{HDL CHOLESTEROL {[id number]) Triglyceride 165(H) <150 mg/dL [facility] Comment:{TRIGLYCERIDES {[id number]) LDL Cholesterol 167(H) <130 mg/dL (calc) [facility] Comment: {LDL-CHOLESTEROL {[id number]) Desirable range <100 mg/dL for patients with CHD or diabetes and <70 mg/dL for diabetic patients with known heart disease. CHOL/HDL Ratio 3.7 < OR = 5.0 (calc) [facility] Comment:{CHOL/HDLC RATIO {[id number]) Cholesterol Non-HDL 200(H) mg/dL (calc) [facility] Comment: {NON HDL CHOLESTEROL {[id number]) Target for non-HDL cholesterol is 30 mg/dL higher than LDL cholesterol target. 03/18/2016 10:0 2 AM EDT 03/18/2016 4:21 PM EDT Narrative Resulting Agency Comment [id number] Radha Eineberg STAFFING ASSISTANT LABORATORY Final Result [facility] [address] [place] [address] documented in this encounter Visit Diagnoses Diagnosis Hyperlipidemia, unspecified hyperlipidemia type Essential hypertension with goal blood pressure less than 140/90 documented in this encounter Care Teams Autopsy Pathologist Relationship Specialty Start Date End Date Brandyn Pagan MD PCP - General Internal Medicine 08/07/15 02/02/17 Radha Spangler NP PCP - Backup PCP Internal Medicine 01/11/16 02/02/17 Unknown Pcp, Non Rmg PCP - General 02/03/17 documented as of this encounter
--- OUTSIDE RECORDS SUMMARY | 2025-01-27 11:59 | XMS_ITS | Encounter Summary ---
Author Organization [facility] Address [address] [place] [address] Care Team Providers Care Library Director Name Role Phone Bijal Fox JOB FOREMAN Primary Care Provider [phone] Encounter Details Date Type Department Care Team (Late st Contact Info) Description 09/12/2024 [employer] Message Intial Department [address] [place] [address] [employer], Generic Provider [address] [place], [place] [id number] Questionnaire Submission Social History Tobacco Use Types Packs/Day Years Used Date Smoking Tobacco: Former Smokeless Tobacco: Never Comments:: Alcohol Use Standard Drinks/Week Comments Not Currently 0 (1 standard drink = 0.6 oz pur e alcohol) [facility] Utilities Answer Date Recorded In the [...] Upcoming Encounters Date Type Department Care Team ([facility] st Contact Info) Description 02/04/2025 2:15 PM EDT Follow-Up [facility] Nephrology [address] [place] [address] [address] [place] [address] John Hendricks MD 123 [facility] [address] [place] [address] 07/16/2025 10:00 AM EST Follow-Up [address] Cardiology [address] [place] [address] [address] [place] [address] Mabel Onofre NP [address] [place] [address] [address] [place] [address] documented as of this encounter Visit Diagnoses Not on filedocumented in this encounter Care Teams Library Director Relationship Specialty Start Date End Date Bijal Fox NP [address] [place] [address] [address] [place] [address] PCP - General Family Medicine 05/30/24 documented as of this encounter
--- OUTSIDE RECORDS SUMMARY | 2025-01-27 11:59 | XMS_ITS | Encounter Summary ---
Author Organization [facility] Address [address] [place] [address] Care Team Providers Care Office Machine Technician Name Role Phone Brandyn Pagan MD Primary Care Provider Radha Cuevas NP Unavailable Unavailable Unknown Pcp, Non Rmg Primary Care Provider Unava ilable Reason for Visit * Reason Comments ER F/U Encounter Details Date Type Department Care Team (Late st Contact Info) Description 07/29/2016 [facility] Internal Medicine [address] [place] [phone] Brandyn Pagan MD ER F/U Social [...] following an Emergency Department visit. ED location: [facility] ER Date of ED Visit: [...] on filedocumented in this encounter Care Teams Office Machine Technician Relationship Specialty Start Date End Date Brandyn Pagan MD PCP - General Internal Medicine 08/07/15 02/02/17 Radha Spangler NP PCP - Backup PCP Internal Medicine 01/11/16 02/02/17 Unknown Pcp, Non Rmg PCP - General 02/03/17 documented as of this encounter
--- OUTSIDE RECORDS SUMMARY | 2025-01-27 11:59 | XMS_ITS | Encounter Summary ---
Author Organization [facility] Address [address] [place] [address] Care Team Providers Care Conservation Of Resources Commissioner Name Role Phone Brandyn Pagan MD Primary Care Provider Unavaila Radha Fink NP Unavailable Unavailable Unknown Pcp, Non Rmg Primary Care Provider Unava ilable Encounter Details Date Type Department Care Team (Late st Contact Info) Description 09/21/2016 Orders Only [facility] [address] [place] [address] Radha Spangler NP Social History Tobacco Use [...] this encounter Procedures * Due to [place] [employer] law, this organization might not be sharing negative HIV tests. Procedure Name Priority Date/Time Associated Diagnosis Comments ALANINE AMINOTRANSFERASE (ALT), SERUM Routine 09/21/2016 1:41 PM EDT Hyperlipidemia, unspecified hyperlipidemia type LIPID PANEL WITH REFLEX TO DIRECT LDL Routine 09/21/2016 1:41 PM EDT Hyperlipidemia, unspecified hyperlipidemia type documented in this encounter Results * Due to [place] [employer] law, this organization might not be sharing negative HIV tests. * ALANINE AMINOTRANSFERASE (ALT), SERUM (09/21/2016 1:41 PM EDT) ALT (SGPT) 25 6 - 29 U/L [facility] 09/21/2016 1:41 PM EDT 09/21/2016 6:16 PM EDT Narrative Resulting Agency Comment [id number] Radha Spangler EPIC TRAINER LAB SAME DAY RESULT Final Re sult [facility] [address] [place] [address] * (ABNORMAL) LIPID PANEL WITH REFLEX TO [...] 6:16 PM EDT Narrative Resulting Agency Comment [id number] Radha Spangler NP LABORATORY Final Result [facility] [address] [place] [address] documented in this encounter Visit Diagnoses Diagnosis Hyperlipidemia, unspecified hyperlipidemia type documented in this encounter Care Teams Conservation Of Resources Commissioner Relationship Specialty Start Date End Date Brandyn Pagan MD PCP - General Internal Medicine 08/07/15 02/02/17 Radha Spangler NP PCP - Backup PCP Internal Medicine 01/11/16 02/02/17 Unknown Pcp, Non Rmg PCP - General 02/03/17 documented as of this encounter
--- OUTSIDE RECORDS SUMMARY | 2025-01-27 11:59 | XMS_ITS | Encounter Summary ---
Author Organization [facility] Address [address] [place] [address] Care Team Providers Care Neurosurgical Physician Assistant Name Role Phone Bijal Fox MACHINE COIL ASSEMBLER Primary Care Provider [phone] Encounter Details Date Type Department Care Team (Late st Contact Info) Description 07/16/2024 Lab Requisition [facility] Lab [address] [place] [address] Bijal Fox, MACHINE COIL ASSEMBLER [address] [facility] [address] [place] [address] Urinary tract infection, site not specified Social History Tobacco Use Types Packs/Day Years Used Date Smoking Tobacco: Former Smokeless Tobacco: Never Comments:: Alcohol Use Standard Drinks/Week Comments Not Currently 0 (1 standard drink = 0.6 oz pur e alcohol) [facility] Utilities Answer Date Recorded In the past 12 months has th e [place], gas, oil, or water [employer] threatened to shut off services in your [...] Upcoming Encounters Date Type Department Care Team ([facility] st Contact Info) Description 02/04/2025 2:15 PM EDT Follow-Up [facility] Nephrology 100 [facility] [address] [place] [address] John Hendricks MD [address] [address] 07/16/2025 10:00 AM EST Follow-Up [address] Cardiology 100 [facility] [address] [place] [address] Mabel Onofre NP 100 [facility] [address] [place] [address] documented as of this encounter Procedures * Due to [facility] law, this organization might not be sharing negative HIV tests. Procedure Name Priority Date/Time Associated Diagnosis Comments URINE CULTURE, ROUTINE Routine 07/16/2024 12:33 PM EST Urinary tract infection, site not specified documented in this encounter Results * Due to [facility] law, this organization might not be sharing negative HIV tests. * (ABNORMAL) Urine Culture, Routine (07/16/2024 12:33 PM EST) Urine Culture >100,000 CFU/mL Escherichia coli(A) MINIMUM INHIBITORY CONCENTRATION (VLADIMIR) 07/18/2024 7:44 AM EST [facility] Urine Urine specimen collection, [...] us Bijal Fox NP LAB MICROBIOLOGY - [facility] MICHAEL CALHOUN Final Result [facility] [address] [facility] [address] [place] [address], documented in this encounter Visit Diagnoses Diagnosis Urinary tract infection, site not specified documented in this encounter Care Teams Neurosurgical Physician Assistant Relationship Specialty Start Date End Date Bijal Fox, MEY 100 [facility] [address] [place] [address] PCP - General Family Medicine 05/30/24 documented as of this encounter
--- OUTSIDE RECORDS SUMMARY | 2025-01-27 11:59 | XMS_ITS | Encounter Summary ---
Author Organization [facility] Address [address] [place] [address] Care Team Providers Care Machine Adjuster Helper Name Role Phone Brandyn Pagan MD Primary Care Provider Unavaila Radha Fink NP Unavailable Unavailable Unknown Pcp, Non [facility] Primary Care Provider Unava ilable Encounter Details Date Type Department Care Team (Late st Contact Info) Description 11/02/2015 Orders Only [facility] [address] [place] [address] Radha Spangler NP Social History Tobacco Use [...] this encounter Procedures * Due to [place] [employer] law, this organization might not be sharing negative HIV tests. Procedure Name Priority Date/Time Associated Diagnosis Comments ALANINE AMINOTRANSFERASE (ALT), SERUM Routine 11/02/2015 12:44 PM EDT Hyperlipidemia, unspecified hyperlipidemia type CREATINE KINASE (CK), SERUM Routine 11/02/2015 12:44 PM EDT Hyperlipidemia, unspecified hyperlipidemia type documented in this encounter Results * Due to [place] [employer] law, this organization might not be sharing negative HIV tests. * CREATINE KINASE (CK), SERUM (11/02/2015 12:44 PM EDT) CPK 106 29 - 143 U/L [facility] Comment:{CREATINE KINASE, TO KENZIE {[id number]) 11/02/2015 12:4 4 PM EDT 11/03/2015 2:14 AM EDT Narrative Resulting Agency Comment [id number] Radha Spangler GAS STATION ATTENDANT LAB SAME DAY RESULT Final Re sult [facility] [address] [place] [address] * ALANINE AMINOTRANSFERASE (ALT), SERUM (11/02/2015 12:44 PM EDT) ALT (SGPT) 22 6 - 29 U/L [facility] Comment:{ALT {[id number]) 11/02/2015 12:4 4 PM EDT 11/03/2015 2:14 AM EDT Narrative Resulting Agency Comment [id number] us Radha Spangler GAS STATION ATTENDANT LAB SAME DAY RESULT Final Re sult [facility] [address] [place] [address] documented in this encounter Visit Diagnoses Diagnosis Hyperlipidemia, unspecified hyperlipidemia type documented in this encounter Care Teams Machine Adjuster Helper Relationship Specialty Start Date End Date Brandyn Pagan MD PCP - General Internal Medicine 08/07/15 02/02/17 Radha Spangler NP PCP - Backup PCP Internal Medicine 01/11/16 02/02/17 Unknown Pcp, Non [facility] PCP - General 02/03/17 documented as of this encounter
--- OUTSIDE RECORDS SUMMARY | 2025-01-27 11:59 | XMS_ITS | Encounter Summary ---
Author Organization [facility] Address [address] [place] [address] Care Team Providers Care Dye Room Helper Name Role Phone Brandyn Pagan MD Primary Care Provider Radha Cuevas NP Unavailable Unavailable Unknown Pcp, Non [facility] Primary Care Provider Unava ilable Encounter Details Date Type Department Care Team (Late st Contact Info) Description 09/09/2016 Orders Only [facility] [address] [place] [address] Brandyn Pagan MD Social History Tobacco Use [...] this encounter Procedures * Due to [place] [employer] law, this organization might not be sharing negative HIV tests. Procedure Name Priority Date/Time Associated Diagnosis Comments URINALYSIS, DIP ONLY STAT (All results called to provider) 09/09/2016 12:32 PM EDT Frequency of urination CULTURE, URINE, ROUTINE Routine 09/09/2016 12:28 PM EDT Frequency of urination URINALYSIS, MICROSCOPIC Routine 09/09/2016 12:28 PM EDT Frequency of urination documented in this encounter Results * Due to [place] [employer] law, this organization might not be sharing negative HIV tests. * URINALYSIS, DIP ONLY ( SITE STAT ONLY) (09/09/2016 12:32 PM EDT) COLOR (URINE) Yellow [facility] (CLIA# [id number]) APPEARANCE (URINE) Clear Clear [facility] (CLIA# [id number]) SPECIFIC GRAVITY 1.015 1.001 - 1.035 [facility] (CLIA# [id number]) PH (URINE) 6.0 5.0 - 8.0 [facility] (CLIA# [id number]) PROTEIN (URINE) Negative Neg [facility] (CLIA# [id number]) GLUCOSE (URINE) Negative Neg [facility] (CLIA# [id number]) Ketones (Urine) Negative Neg [facility] (CLIA# [id number]) BILIRUBIN (URINE) Negative Neg [facility] (CLIA# [id number]) BLOOD (URINE) Negative Neg [facility] (CLIA# [id number]) Leukocyte esterase (Urine) Negative Neg [facility] (CLIA# [id number]) NITRITE (URINE) Negative Neg [facility] (CLIA# [id number]) Urine specimen obtained by clean catch procedure (specimen) 09/09/2016 12:32 PM EDT Narrative [facility] (CLIA# [id number]) - 09/09/2016 12:36 PM EDT Micro and culture already ordered per provider. Brandyn Pagan MD LAB SAME DAY RESULT Final Resul t Performing Organization Address City/[facility]/ZIP Co de Phone Number [facility] (CL[facility]# [id number]) [address] [place] [address] * CULTURE, URINE, ROUTINE (09/09/2016 12:28 PM EDT) Bacteria culture (Urine) SEE NOTE [facility] Comment: CULTURE, URINE, ROUTINE MICRO NUMBER: [id number] TEST STATUS: FINAL SPECIMEN SOURCE: URINE SPECIMEN QUALITY: ADEQUATE RESULT: Multiple organisms present, each less than 10,000 CFU/mL. These organisms, commonly found on external and internal genitalia, are considered to be colonizers. No further testing performed. 09/09/2016 12:2 8 PM EDT 09/09/2016 7:38 PM EDT Narrative Resulting Agency Comment [id number] Brandyn Pagan MD LABORATORY Final Result Performing Organization Address City/[facility]/ZIP Co de Phone Number [facility] [address] [place] [address] * URINALYSIS, MICROSCOPIC (09/09/2016 12:28 PM EDT) [...] 7:38 PM EDT Narrative Resulting Agency Comment [id number] us Brandyn Pagan MD LAB SAME DAY RESULT Final Resul t [facility] [address] [place] [address] documented in this encounter Visit Diagnoses Diagnosis Frequency of urination Urinary frequency documented in this encounter Care Teams Dye Room Helper Relationship Specialty Start Date End Date Brandyn Pagan MD PCP - General Internal Medicine 08/07/15 02/02/17 Radha Spangler NP PCP - Backup PCP Internal Medicine 01/11/16 02/02/17 Unknown Pcp, Non [facility] PCP - General 02/03/17 documented as of this encounter
--- OUTSIDE RECORDS SUMMARY | 2025-01-27 11:59 | XMS_ITS | Encounter Summary ---
Author Organization [facility] Address [address] [place] [address] Care Team Providers Care Care Connector Name Role Phone Brandyn Pagan MD Primary Care Provider Radha Cuevas NP Unavailable Unavailable Unknown Pcp, Non [facility] Primary Care Provider Unava ilable Encounter Details Date Type Department Care Team (Late st Contact Info) Description 11/13/2015 Orders Only [facility] [address] [place] [address] Brandyn Pagan MD Social History Tobacco Use [...] this encounter Procedures * Due to [place] [employer] law, this organization might not be sharing [...] this encounter Results * Due to [place] [employer] law, this organization might not be sharing negative HIV tests. * (ABNORMAL) URINALYSIS, DIP ONLY ( SITE STAT ONLY) (11/13/2015 1:00 PM EDT) COLOR (URINE) YELLOW [facility] (CLIA# [id number]) APPEARANCE (URINE) CLEAR [facility] (CLIA# [id number]) SPECIFIC GRAVITY 1.015 1.001 - 1.035 [facility] (CLIA# [id number]) PH (URINE) 6.0 5.0 - 8.0 [facility] (CLIA# [id number]) PROTEIN (URINE) NEGATIVE Neg [facility] (CLIA# [id number]) GLUCOSE (URINE) NEGATIVE Neg [facility] (CLIA# [id number]) Ketones (Urine) NEGATIVE Neg [facility] (CLIA# [id number]) BILIRUBIN (URINE) NEGATIVE Neg [facility] (CLIA# [id number]) BLOOD (URINE) NEGATIVE Neg [facility] (CLIA# [id number]) Leukocyte esterase (Urine) 1+(A) [facility] (CLIA# [id number]) NITRITE (URINE) NEGATIVE Neg [facility] (CLIA# [id number]) Urine specimen obtained by clean catch procedure (specimen) 11/13/2015 1:00 PM EDT Narrative [facility] (CLIA# [id number]) - 11/13/2015 1:00 PM EDT Micro and culture already ordered per provider. us Brandyn Pagan MD LAB SAME DAY RESULT Final Resul t [facility] (CLIA# [id number]) [address] [place] [address] * CREATINE KINASE (CK), SERUM (11/13/2015 12:24 PM EDT) CPK 143 29 - 143 U/L [facility] Comment:{CREATINE KINASE, TO KENZIE {[id number]) 11/13/2015 12:2 4 PM EDT 11/13/2015 10:19 PM EDT Narrative Resulting Agency Comment [id number] us Brandyn Pagan MD LAB SAME DAY RESULT Final Resul t Performing Organization Address [facility] de Phone Number [facility] [address] [place] [address] * ALANINE AMINOTRANSFERASE (ALT), SERUM (11/13/2015 12:24 PM EDT) ALT (SGPT) 29 6 - 29 U/L [facility] Comment:{ALT {[id number]) 11/13/2015 12:2 4 PM EDT 11/13/2015 10:19 PM EDT Narrative Resulting Agency Comment [id number] Brandyn Pagan MD LAB SAME DAY RESULT Final Resul t Performing Organization Address [facility] de Phone Number [facility] [address] [place] [address] * C-REACTIVE PROTEIN (CRP) - INFLAMMATION (11/13/2015 12:24 PM EDT) C reactive protein 0.28 <0.80 mg/dL [facility] Comment: {C-REACTIVE PROTEIN {[id number]) Please be advised that patients taking Carboxypenicillins may exhibit falsely decreased C-Reactive Protein levels due to an analytical interference in this assay. 11/13/2015 12:2 4 PM EDT 11/13/2015 10:19 PM EDT Narrative Resulting Agency Comment [id number] Brandyn Pagan MD LABORATORY Final Result Performing Organization Address [facility] de Phone Number [facility] [address] [place] [address] * ERYTHROCYTE SEDIMENTATION RATE (ESR), WESTERGREN (11/13/2015 12:24 PM EDT) Sedimentation Rate [place] (ESR) 6 < OR = 30 mm/h [facility] Comment:{SED RATE BY MODIFBILLIE D JAZMINEREN {[id number]) 11/13/2015 12:2 4 PM EDT 11/13/2015 10:19 PM EDT Narrative Resulting Agency Comment [id number] Brandyn Pagan MD LAB SAME DAY RESULT Final Resul t Performing Organization Address City/[facility]/ZIP Co de Phone Number [facility] [address] [place] [address] * (ABNORMAL) CULTURE, URINE, ROUTINE (11/13/2015 12:24 PM EDT) Bacteria culture (Urine) SEE NOTE(A) [facility] Comment: {CULTURE, URINE, ROUTINE {[id number]) CULTURE, URINE, ROUTINE MICRO NUMBER: [id number] TEST STATUS: FINAL SPECIMEN SOURCE: URINE SPECIMEN QUALITY: ADEQUATE RESULT: 50,000-100,000 CFU/mL of Escherichia coli E.coli INT VLADIMIR AMOX/CLAVULANATE S 4 AMPICILLIN R >=32 AMP/SULBACTAM I 16 CEFAZOLIN NR <=4 1 CEFEPIME S <=1 [...] to to confirm susceptibility to parenteral cefazolin. 11/13/2015 12:2 4 PM EDT 11/13/2015 10:19 PM EDT Narrative Resulting Agency Comment [id number] Brandyn Pagan MD LABORATORY Final Result Performing Organization Address [facility] Co de Phone Number [facility] [address] [place] [address] * (ABNORMAL) URINALYSIS, MICROSCOPIC (11/13/2015 12:24 PM EDT) WBC (Urine) 10-20(A) < OR = 5 /HPF [facility] Comment:{WBC {[id number]) RBC (Urine Sed) NONE SEEN < OR = 2 /HPF [facility] Comment:{RBC {[id number]) Epithelial cells.squamous (Urine sed) 0-5 < OR = 5 /HPF [facility] Comment:{SQUAMOUS EPITHELIAL CELLS {[id number]) Bacteria (Urine) NONE SEEN NONE SEEN /HPF [facility] Comment:{BACTERIA {[id number]) Hyaline casts (Urine sed) NONE SEEN NONE SEEN /LPF [facility] Comment:{HYALINE CAST {[id number]) 11/13/2015 12:2 4 PM EDT 11/13/2015 10:19 PM EDT Narrative Resulting Agency Comment [id number] us Brandyn Pagan MD LAB SAME DAY RESULT Final Resul t [facility] [address] [place] [address] documented in this encounter Visit Diagnoses Diagnosis Urinary tract infection, site unspecified Muscle ache Mylagia and myositis, unspecified Routine history and physical examination of adult Routine general medical examination at a health care facility documented in this encounter Care Teams Care Connector Relationship Specialty Start Date End Date Brandyn Pagan MD PCP - General Internal Medicine 08/07/15 02/02/17 Radha Spangler NP PCP - Backup PCP Internal Medicine 01/11/16 02/02/17 Unknown Pcp, Non [facility] PCP - General 02/03/17 documented as of this encounter
--- OUTSIDE RECORDS SUMMARY | 2025-01-27 12:00 | XMS_ITS | Patient Health Record ---
Author Organization [facility] Address [address] [place] [address] Care Team Providers Care Field Appraiser Name Role Phone ARI VANG DO Primary Care Provider Jayashree Burr Unavailable [phone] Reason For Referral No Information Medications Medication SIG (Take, Route, Frequency, Duration) Notes Start Date End Date Status Lisinopril 10 MG TAKE 1 TABLET BY MORIS TH EVERY DAY Oral; Duration: 90 Active Aspirin 81 81 MG 1 tablet Orally Once a day; Duration: 30 day(s) Active Prilosec OTC 20 MG 1 tablet 30 minutes before morning meal Orally Once a day; Duration: 30 day(s) Active Vitamin D3 50 MCG (1999) 1 capsule Or ally Once a day; Duration: 30 day(s) Active Levothyroxine Sodium 50 MCG TAKE 1 TABLE T BY MOUTH EVERY DAY Oral; Duration: 90 Active Plavix 75 MG 1 tablet Orally Once a day; Duration: 30 day(s) Active Problems Problem Type SNOMED Code ICD Code Onset Dates Problem Status W/U Status Risk Notes Problem Overweight (577058911) Overweight (E66.3) Active confirmed Problem Left upper quadrant pain (521035438) LUQ pain (R10.12) Active confirmed Problem Rectal bleeding (10125369) Rectal bleeding (K62.5) Active confirmed Problem Family History of Cancer of Colon (Situation) (880324645) Family history of colon cancer (Z80.0) Active confirmed Problem Gastroesophageal reflux disease (disorder) (846110905) Chronic GERD (K21.9) Active confirmed Problem Chronic diarrhea (634511150) Chronic diarrhea (K52.9) Active confirmed Problem Long-term current use of drug therapy (184395472) Encounter for medication review (Z79.899) Active confirmed Problem Former smoker (7631166) Former smoker (Z87.891) Active confirmed Problem Long-term current use of drug therapy (206147393) Antiplatelet or antithrombotic long-term use (Z79.02) Active confirmed Plan Of Treatment Pending Test Test Name Order Date COLON/BX 02/06/2020 EGD 02/06/2020 Insurance Providers Payer Name Payer Address Payer Phone Subscriber Number Group Number Insured Name Patient Relationship to Insured Coverage Start Date Coverage End Date [place] [address] [id number] Genie Vora Self - patient is the insured Medical (General) History Medical History History ICD Code stroke (?2013) Hypothyroidism hypercholesterolemia hemorrhoids spinal stenosis ulcers GERD Surgical History Surgery Date(Month/Year) colonoscopy and egd 2014 back surgery x 5 hysterectomy cholecystectomy hemorrhoidectomy right hip replacement bladder suspension
--- OUTSIDE RECORDS SUMMARY | 2025-01-27 12:00 | XMS_ITS | Clinical Summary ---
Author Organization [facility] Address [address] [place] [address] Care Team Providers Care Case Technician Name Role Phone Bijal Fox INSTALLATION AND REPAIR TECHNICIAN Primary Care Provider [phone] Allergies Active Allergy Reactions Criticality Noted Date Comments Airkxox-Lbw-Kfn Reductase Inhibitors Muscle Pain Medium Per pt Medications diltiazem XR (DILACOR XR) 120 mg 24 hr capsule Take 120 mg by mouth in the morning. Active DULoxetine DR (CYMBALTA) 60 mg capsule Take 60 mg by mouth in the morning. Active busPIRone (BUSPAR) 7.5 mg tablet Take 7.5 mg by mouth 2 (two) times a day. Active flecainide (TAMBOCOR) 100 mg tablet Take 100 mg by mouth 2 times a day. Active methocarbamoL (ROBAXIN) 750 mg tablet Take 750 mg by mouth 3 times a day. Active pregabalin (LYRICA) 150 mg capsule Take 150 mg by mouth 2 times a day. Active traZODone (DESYREL) 50 mg tablet Take 50 mg by mouth nightly. -- 1-2 TABS EVERY NIGHT, STARTS WITH 50 MG AND TAKES A SECOND TABLET IF NOT SLEEPING Active senna (SENOKOT) 8.6 mg tablet Take 2 tablets (17.2 mg total) by mouth once a day. 60 tablet 06/26/19 25 Active ipratropium-alb uteroL (DUO-NEB) 0.5-2.5 mg/3 mL nebulizer solution Inhale 3 mL via nebulizer every 4 hours as needed for wheezing or shortness of breath. 360 mL 06/26/19 25 Active guaiFENesin ER (MUCINEX) 600 mg tablet Take 1 tablet (600 mg total) by mouth every 12 hours. 60 tablet 06/26/19 25 Active apixaban (Eliquis) 5 mg tabletIndicatio ns:Atrial fibrillation, unspecified type (HCC) Take 1 tablet (5 mg total) by mouth every 12 hours. 60 tablet 06/28/19 25 Active traMADoL (ULTRAM) 50 mg tablet Take 50 mg by mouth every 6 hours as needed for pain. 06/28/19 25 Active triamcinolone acetonide (KENALOG) 0.1% cream Apply topically to the affected area 2 times a day. 09/25/[address] (PROTONIX) 40 mg tablet Take 1 tablet (40 mg total) by mouth 2 (two) times a day. 10/04/19 25 Active levothyroxine (SYNTHROID, LEVOTHROID) 100 mcg tablet SMARTSI Tablet(s) By Mouth Daily 10/22/19 25 Active furosemide (LASIX) 40 mg tablet Take 20 mg by mouth once a day. With an additional as needed for increase edema 10/23/19 25 Active methylphenidate HCl (RITALIN) 10 mg tablet TAKE 2 TABLETS BY MOUTH IN THE AM AND 1 TABLET BY MOUTH AT NOON 10/24/19 25 Active oxyCODONE IR (ROXICODONE) 5 mg tablet 11/22/19 25 Active albuterol (PROAIR HFA,VENTOLIN HFA) 90 mcg inhaler SMARTSI Puff(s) By Mouth Every 4-6 Hours PRN 11/14/19 25 Active albuterol 2.5 mg/3 mL (0.083%) nebulizer solution Inhale 1 vial via nebulizer every 6 hours as needed for wheezing or shortness of breath. 025 Discontinued Hospital, Clinic, or Other Facility Administered Medication Ordered Dose Route Frequency Start Date End Date Status lidocaine PF (XYLOCAINE) 1% (10 mg/mL) injection 3 mLIndications:Packer Inspector homer left shoulder pain 3 mL injection One-time injection 12/30/2024 12/30/2024 Ended triamcinolone acetonide (KENALOG-40) injection 80 mgIndications:Packer Inspector homer left shoulder pain 80 mg intraartic One-time injection 12/30/2024 12/30/2024 Ended Active Problems Problem Noted Date Diagnosed [...] on admission by SpO2 88% requiring 3-4L INSTALLATION AND REPAIR TECHNICIAN. Tachypnea with RR increased to 22 RPM. She is not home-O2 dependent. -Wean supplemental O2 as tolerated, presently om room air -Taper steroids -Continue supportive therapy with nebulized bronchodilators, ICS and multiple antitussives. -Avoid increasing Tramadol in setting of COPD/asthma. Assessment & Plan (06/23/2024 4:18 PM EST): Acute Resp Failure: Evidenced on admission by SpO2 88% requiring 3-4L INSTALLATION AND REPAIR TECHNICIAN. Tachypnea with RR increased to 22 RPM. She is not home-O2 dependent. Presently weaned to 2L INSTALLATION AND REPAIR TECHNICIAN, but still coarse with rhonchus cough. Reduced IV steroids as no wheezing on exam and she appears tearful and depressed. Continue supportive therapy with nebulized bronchodilators, ICS and multiple antitussives. Avoid increasing Tramadol in setting of COPD/asthma. Assessment & Plan (06/22/2024 5:42 PM EST): Acute Resp Failure: Evidenced on admission by SpO2 88% requiring 3-4L INSTALLATION AND REPAIR TECHNICIAN. Tachypnea with RR increased to 22 RPM. She is not home-O2 dependent. Presently weaned to 2L INSTALLATION AND REPAIR TECHNICIAN, but still coarse with rhonchus cough. Reduced [...] Assessment & Plan (06/03/2024 9:13 PM EST): Alina Escamilla Flutter. S/P ablation 10/2021. Continue Flecainide and [...] Encounters Date Type Department Care Team Description 01/08/2025 10:00 AM EDT Follow-Up [address] Cardiology [address] [place] [id number] Mabel Onofre NP Paroxysmal atrial fibrillation (HCC) (Primary Dx); Diastolic heart failure, unspecified HF chronicity (HCC); Benign hypertensive heart disease without congestive heart failure; BILLIE (obstructive sleep apnea) 12/30/2024 10:00 AM EDT Follow-Up [facility] [address] [place] [phone] Marvin, AYAD Gil Chronic left shoulder pain (Primary Dx) 11/25/2024 12:44 PM EDT - 11/26/2024 11:18 AM EDT Hospital Encounter [facility] Emergency Department [address] [place] [id number] Margarita Estrella DO Jia, Leon Zuozhen, MD Injury of right ankle, initial encounter (Primary Dx); Longstanding persistent atrial fibrillation (HCC) Discharge Disposition: Senior Living Facility (03) 11/12/2024 7:30 AM EDT Follow-Up [address] Cardiology [address] [place] [phone] Mabel Onofre NP Paroxysmal atrial fibrillation (HCC) (Primary Dx); Diastolic heart failure, unspecified HF chronicity (HCC); Pulmonary hypertension (HCC); Benign hypertensive heart disease without congestive heart failure; Preop cardiovascular exam from Last 3 Months Immunizations Immunization Administration Dates Next Due INFLUENZA, SPLIT VIRUS, TRIVALENT, PF 06/15/2017 Influenza, Injectable, Quadrivalent, Preservativ e Free 03/11/2016 Influenza, Trivalent, Adjuvanted, PF (FLUAD) Pneumococcal Conjugate Vaccine, 13 Valent 2017 Pneumococcal Polysaccharide Vaccine, 23 Valent 0 06/27/2018 Tetanus Toxoid, Reduced Diph theria Toxoid, and Acellular Pertussis Vaccine, Adsorbed 01/11/2016 Zoster Vaccine, Live 01/11/2016 Family History Medical History Relation Name Comments Colon cancer Brother 1 Marcello Other Brother 3 Family History of alcoholism Other Brother 4 Family History of depression Other Father Family history of Prostate cancer Other Mother Family History of Alzheimer's disease Other Sister 3 Family History of depression Other Sister 4 Family history of Coagulation disorder, transient Relation Name Status Comments Brother 1 Marcello Brother 2 Alive Brother 3 Brother 4 Father Alive Mother Alive Sister 1 Alive Sister 2 Alive Sister 3 Sister 4 Social History Tobacco Use Types Packs/Day Years Used Date Smoking Tobacco: Former Smokeless Tobacco: Never Tobacco Cessation:Counseling Given: Not Answered Comments:Smoked for 30 years quit around 15 years, then started again. Quit 2014 smoked about 1PPD Alcohol Use Standard Drinks/Week Comments Not Currently 0 (1 standard drink = 0.6 oz pur e alcohol) [facility] Utilities Answer Date Recorded In the past 12 months has e electric, gas, oil, or water [employer] threatened to shut off services in your [...] Sign Reading Time Taken Comments Blood Pressure 132/80 01/08/2025 9:55 AM EDT Pulse 74 01/08/2025 9:55 AM EDT Temperature 36.8 C (98.3 F) 11/25/2024 12:53 PM EDT Respiratory Rate 20 11/26/2024 7:10 AM EDT Oxygen Saturation 98% 01/08/2025 9:55 AM EDT Inhaled Oxygen Concentration - - Weight 126.1 kg (278 lb) 01/08/2025 9:55 AM EDT Height 167.6 cm (5' 5.98 ) 10/03/2024 2:47 PM ED T Body Mass Index 44.89 10/03/2024 2:47 PM EDT Plan of Treatment Upcoming Encounters Date Type Department Care Team (Late st Contact Info) Description 02/04/2025 2:15 PM EDT Follow-Up [facility] Nephrology [address] [place] [address] [address] [place] [address] John Hendricks MD [id number] [place] [address] 07/16/2025 10:00 AM EST Follow-Up [address] Cardiology [address] [place] [phone] Mabel Onofre NP [address] [place] [address] [address] [place] [address] Health Maintenance Due Date Last Done Comments RSV Vaccine (60+ years old and patients) (1 - Risk 60-74 years 1-dose series) 2011 Zoster Vaccines (2 of 3) 03/07/2016 01/11/2016 Colonoscopy 09/02/2019 09/01/2014 Alcohol/Substance Use Screening 05/22/2024 Depression Screening and Follow-Up 05/22/2024 Health Care Proxy Review 05/22/2024 COVID-19 Vaccine ( - season) 2025 Influenza Vaccine (#1) 2025 , 02/18/2018, 06/15/2017, Additional history exists Social Drivers of Health Annual Screening 06/03/2025 06/03/2024 CT Lung Cancer Screening (Baseline) 06/15/2025 06/15/2024, 03/29/2023, 01/13/2021, Additional history exists Basic Metabolic Panel 09/23/2025 09/23/2024 , 08/09/2024, 07/19/2024, Additional history exists Urine Microalbumin 09/23/2025 09/23/2024, 07/02/2024 DTaP,Tdap,and Td Vaccines (2 - Td or Tdap) 01/10/2026 01/11/2016 Mammogram 10/07/2026 10/07/2024, 04/0 08/2024, 03/27/2023, Additional history exists Pneumococcal Vaccine: 50+ Years Completed 06/27/2018, 06/15/2017 Hepatitis C Screening Completed 08/17/2018 Osteoporosis Screening Completed 01/22/2020 Hepatitis B Vaccines Aged Out No long er eligible based on patient's age to complete this topic Medical Devices Implanted Type Area Cotton Ginner Device Identifier Shelf Expiration Date Model / Serial / Lot Lens Intraocular [employer]onome Ultraviolet Filtering 16.5 Diopter With [id number] [place] - [id number] - [id number] Implanted:Qty: 1 on 09/30/2024 by Nima Solorio MD at [facility] Lens NAEL 07/26/2026 CNA0T0.165 / [id number] / Lens Intraocular [employer]onome Ultraviolet Filtering 17.0 Diopter With Sy60wf [place] - [id number] - [id number] Implanted:Qty: 1 on 10/21/2024 by Nima Solorio MD at [facility] Lens Right: Eye NAEL 06/18/2026 CNA0T0.170 / [id number] / Procedures * Due to [place] state law, this organization might not be sharing negative HIV tests. Procedure Name Priority Date/Time Associated Diagnosis Comments [place] ARTHROCENTESIS ASPIR&/INJ MAJOR JT/BURSA W/O US Routine 12/30/2024 10:00 AM EDT Chronic left shoulder pain XR FOOT 3+ VW RIGHT STAT 11/25/2024 1 2:16 PM EDT ECG 12-LEAD Routine 11/12/2024 7:46 AM EDT Paroxysmal atrial fibrillation (HCC) TRUDI RIGHT ADD VIEWS DIGITAL MAMMO AND MIGUEL Routine 10/07/2024 2:57 PM EDT Inconclusive mammography MICROALBUMIN, RANDOM URINE WITH CREATININE Routine 09/23/2024 1:46 PM EDT Hyperkalemia CKD stage 3a, GFR 45-59 ml/min (HCC) Chronic heart failure with preserved ejection fraction (HCC) Primary hypertension RENAL FUNCTION PANEL Routine 09/23/2024 1:46 PM EDT Hyperkalemia CKD stage 3a, GFR 45-59 ml/min (HCC) Chronic heart failure with preserved ejection fraction (HCC) Primary hypertension CT CHEST PULMONARY EMBOLISM W CONTRAST STAT 06/15/2024 11:49 PM EST COLONOSCOPY 09/01/2014 2:57 PM EDT from Last 3 Months or Most Recently Relevant to Health Maintenance Results * Due to [place] state law, this organization might not be sharing negative HIV tests. * [place] ARTHROCENTESIS ASPIR&/INJ MAJOR JT/BURSA W/O US (12/30/2024 10:00 AM EDT) Jeffery Mora PA - 12/30/2024 10:00 AM EDT AYAD Junior 12/30/2024 10:16 AM Large Joint Inj/Asp: L subacromial bursa Indication(s): pain Date/Time: 12/30/2024 10:00 AM Performed by: AYAD Junior Authorized by: AYAD Junior Consent: Patient identity confirmed: Name and with patient Verbal consent obtained: No Written consent obtained: Yes Risk and benefits discussed: Yes Written informed consent was obtained from the patient. Patient states understanding of procedure being performed: Yes Patient's understanding of procedure matches consent: Yes [place] Protocol: Procedure consent matches procedure scheduled: Yes All relevant documents/tests are correctly identified, labeled, and matched to patient: Yes Relevant tests/ Imaging studies available/reviewed: Yes Correct site marked: Yes Required blood products, implants, devices and special equipment available: N/A Immediately prior to the procedure a time out was called: Yes An attending physician was present for the procedure OR the procedure was performed by an Advanced Practice Provider: Yes Procedure Details: Location: shoulder - L subacromial bursa Patient was prepped and draped in the usual sterile fashion. Site Prep: Alcohol Left Topical Anesthetic: ethyl chloride (cold spray) Syringe Size:5 mL Needle size: 22 G Approach: posterior Medications administered: 3 mL lidocaine PF 1% (10 mg/mL); 80 mg triamcinolone acetonide 40 mg/mL Dressing: Band-Aid Post-procedure Details: Patient tolerance: patient tolerated the procedure well with no immediate complications Instructions: post-procedure instructions were reviewed Discharge: patient discharged from clinic in stable condition Jeffery LION IN CLINIC/BEDSIDE ORDERABLES F inal Result * X-Ray Foot Right 3+ Views (11/25/2024 12:16 PM EDT) Anatomical Region Laterality Modality Lower Extremities, Foot [facility] 11/25/2024 12:2 4 PM EDT Impressions 11/25/2024 12:36 PM EDT FINDINGS * IMPRESSION: No acute fracture or dislocation. Joint spaces of the foot are maintained in anatomic alignment. Mild multifocal degenerative changes, most pronounced at the carpometacarpal joints. Os perineum and bipartite hallux sesamoid are noted. Soft tissues of the foot are within normal limits. No tibiotalar ankle joint effusion. Small plantar calcaneal spur. I, Yury Vazquez, have reviewed the examination and concur with the findings as reported or so edited. Trainee: Servando Swanson If this radiology report contains a blank impression section, it is an incomplete radiology report. Please contact the interpreting radiologist or applicable radiology division as soon as possible to obtain the completed interpretation. Workstation ID: [id number] Narrative 11/25/2024 12:36 PM EDT COMPARISON: There are no prior studies available for comparison at this time. Resulting Agency Comment [id number] Procedure Note Yury Vazquez MD - 11/25/2024 COMPARISON: There are no prior studies available for comparison at thistime. IMPRESSION: FINDINGS * IMPRESSION: No acute fracture or dislocation. Joint spaces of the foot are maintainedin anatomic alignment. Mild multifocal degenerative changes, mostpronounced at the carpometacarpal joints. Os perineum and bipartite halluxsesamoid are noted. Soft tissues of the foot are within normal limits. Notibiotalar ankle joint effusion. Small plantar calcaneal spur. I, Yury Vazquez, have reviewed the examination and concur with the findingsas reported or so edited. Trainee: Servando Swanson If this radiology report contains a blank impression section, it is anincomplete radiology report. Please contact the interpreting radiologistor applicable radiology division as soon as possible to obtain thecompleted interpretation. Workstation ID: [id number] us Margarita Vysvicki DO IMG XR PROCEDURES Final Res ult * ECG 12 lead (11/12/2024 7:46 AM EDT) Ventricular Rate EKG 78 BPM MUSE EKG QRS Interval 122 ms MUSE EKG QT Interval 402 ms MUSE EKG QTC Interval 458 ms MUSE EKG R [place] 24 degrees MUSE EKG T Wave [place] 48 degrees MUSE EKG 11/12/2024 7:46 AM EDT 11/12/2024 11:56 AM EDT Impressions MUSE EKG - 11/12/2024 11:56 AM EDT Normal sinus rhythm with artifact with 1st degree AV block Nonspecific intraventricular conduction delay When compared with ECG of 24-JUN-2024 09:50, No significant change was found Confirmed by Stephanie Hampton ([id number]) on 11/12/2024 11:56:00 AM Narrative Procedure Note Stephanie Hampton MD - 11/12/2024 IMPRESSION: Normal sinus rhythm with artifact with 1st degree AV block Nonspecific intraventricular conduction delay When compared with ECG of 24-JUN-2024 09:50, No significant change was found Confirmed by Stephanie Hampton ([id number]) on 11/12/2024 11:56:00 AM Mabel Onofre NP ECG ORDERABLES Final Resu lt MUSE EKG * TRUDI Right Add Views Digital Mammo and Miguel (10/07/2024 2:57 PM EDT) Anatomical Region Laterality Modality Breast Right Mammography Narrative 10/07/2024 3:06 PM EDT Genie Vora Exam Date: 10/07/[address] [address] INDICATIONS Technical callback for right breast cc view. TECHNIQUE TRUDI Right Add Views Digital Mammo and Miguel. R2 CAD were used in the interpretation of this study. COMPARISON Relevant priors in PACS. FINDINGS Technically adequate right breast cc view was obtained. Current mammogram read in conjunction with screening mammogram of 08/23/2024. The breasts are almost entirely fatty. There is no evidence of suspicious masses, calcifications, or other abnormal findings in the right breast. IMPRESSION BI-RADS ATLAS category (right): 1 - Negative MANAGEMENT Back on Schedule is recommended for right. The patient was entered into a reminder system with a target date for their next breast imaging exam. If this radiology report contains a blank impression section, it is an incomplete radiology report. Please contact the interpreting radiologist or applicable radiology division as soon as possible to obtain the completed interpretation. Adela [place] MD Resulting Agency Comment [id number] us Magy Sawyer NP IMG BI PROCEDURES Final Result * Microalbumin, Random Urine with Creatinine (09/23/2024 1:46 PM EDT) Creatinine, Urine 29 mg/dL 09/23/2024 3:28 PM EDT [facility] Microalbumin, Urine 1 <=20 mg/L 09/23/2024 3:28 PM EDT [facility] Microalb/Creat Ratio, Random Urine 3.4 1.3 - 30.0 mg/g 09/23/2024 3:28 PM EDT [facility] Urine Voided urine specimen / Unknown Non-Blood Collection / Unknown 09/23/2024 1:46 PM EDT 09/23/2024 2:42 PM EDT John Hendricks MD LAB URINE ORDERABLES Final Resul t [facility] [address] [place] [address] [address] [place] [address], * (ABNORMAL) Renal Function Panel (09/23/2024 1:46 PM EDT) NA 142 136 - 145 mmol/L 09/23/2024 2:52 PM EDT [facility] K 4.5 3.5 - 5.1 mmol/L 09/23/2024 2:52 PM EDT [facility] Cl 105 98 - 109 mmol/L 09/23/2024 2:52 PM EDT [facility] CO2 27 22 - 32 mmol/L 09/23/2024 2:52 PM EDT [facility] Anion Gap 15 >=0 09/23/2024 2:52 PM EDT [facility] Glucose 71 60 - 99 mg/dL 09/23/2024 2:52 PM EDT [facility] BUN 25(H) 8 - 23 mg/dL 09/23/2024 2:52 PM EDT [facility] Creatinine 1.17(H) 0.50 - 1.12 mg/dL 09/23/2024 2:52 PM EDT [facility] Calcium 9.9 8.4 - 10.4 mg/dL 09/23/2024 2:52 PM EDT [facility] Phosphorus 3.0 2.5 - 4.5 mg/dL 09/23/2024 2:52 PM EDT [facility] Albumin 4.2 3.5 - 5.0 g/dL 09/23/2024 2:52 PM EDT [facility] eGFR 49(L) >=60 mL/min/1. 73m2 09/23/2024 2:52 PM EDT [facility] Comment:The estimated glomer ular filtration [...] 1:46 PM EDT 09/23/2024 2:06 PM EDT John Hendricks MD LAB BLOOD ORDERABLES Final Resul t [facility] [address] [place] [address] [address] [place] [address], * CT Chest PE (06/15/2024 11:49 PM [...] to obtain the completed interpretation. Workstation ID: [id number] Up-to-date CT equipment and radiation dose reduction techniques were employed. CTDIvol: .8 - 21.4 mGy. DLP: 802 mGy-cm. Narrative 06/16/2024 8:03 AM EST COMPARISON: CT chest from 01/07/2011. FINDINGS: Pulmonary arteries: The pulmonary arteries are normal in caliber without intraluminal filling defects to indicate pulmonary embolism. Lower [...] interventricular septum. There is no pericardial effusion. Mild coronary artery calcifications. The thoracic aorta is normal in caliber without evidence of dissection. There is no hilar or mediastinal lymphadenopathy. There is a peripherally calcified splenic artery aneurysm measuring 1.4 cm. Status post cholecystectomy. Bones and Soft Tissues: [...] possible to obtain thecompleted interpretation. Workstation ID: [id number] Up-to-date CT equipment and radiation dose reduction techniques wereemployed. CTDIvol: .8 - 21.4 mGy. DLP: 802 mGy-cm. Kevin Nwesome MD IMIman CT PROCEDURES Final Result * COLONOSCOPY (09/01/2014 [...] were monitored continuously. The CFQ-160L Olympusserial # [id number] was introduced through the anus and advanced [...] Most Recently Relevant to Health Maintenance Insurance [facility][1] [facility][1] Advance Directives Documents on File Type Date Recorded Patient Exceptional Children Teacher Assistant Expl anation Advance Directive 08/06/2013 12:00 AM Adva nce Care Directives Advance Directive 07/26/2012 12:00 AM sf Me dical Dec Making (Adv.Dir) Advance Directive 01/15/2011 12:00 AM Adva nce Care Directives Advance Directive 01/10/2011 12:00 AM sf M edical Dec Making (Adv.Dir) * Full Code (Latest Code Status on File) Date Activated Date Inactivated Comments 10/21/2024 9:07 AM 10/21/2024 1:32 PM * Full Code Date Activated Date Inactivated Comments 09/30/2024 11:40 AM 09/30/2024 2:15 PM * Full Code Date Activated Date Inactivated Comments 09/30/2024 9:26 AM 09/30/2024 11:40 AM * Full Code Date Activated Date Inactivated Comments 06/16/2024 3:58 AM 06/26/2024 8:15 PM * Full Code Date Activated Date Inactivated Comments 06/03/2024 1:19 AM 06/04/2024 5:36 PM Care Teams Case Technician Relationship Specialty Start Date End Date Bijal [place], INSTALLATION AND REPAIR TECHNICIAN [address] [place] [id number] PCP - General Family Medicine 05/30/24
--- OUTSIDE RECORDS SUMMARY | 2025-01-27 12:00 | XMS_ITS | Patient Health Record ---
Author Organization [facility] Address [facility] [place] [address] Care Team Providers Care Tuberculosis Specialist Name Role Phone Hernan Donaldson Primary Care Provider Unavailabl e Reason For Referral No Information Plan Of Treatment No Information Insurance Providers Payer Name Payer Address Payer Phone Subscriber Number Group Number Insured Name Patient Relationship to Insured Coverage Start Date Coverage End Date [employer] FFS [address] [address] [place] [address] [id number] SOLANGE PATIÑO Self - patient is the insured
--- OUTSIDE RECORDS SUMMARY | 2025-01-27 12:00 | XMS_ITS | Encounter Summary ---
Author Organization [facility] Address [address] [place] [address] Care Team Providers Care Night Warehouse Selector Name Role Phone Bijal Fox VEHICLE MECHANIC Primary Care Provider [phone] Encounter Details Date Type Department Care Team (Late st Contact Info) Description 06/23/2024 Lab Requisition [facility] Lab [address] [place] [address] Mj Mendenhall MD [address] [place] [address] Pneumonia due to other specified infectious organisms Social History Tobacco Use Types Packs/Day Years Used Date Smoking Tobacco: Former Smokeless Tobacco: Never Comments:: Alcohol Use Standard Drinks/Week Comments Not Currently 0 (1 standard drink = 0.6 oz pur e alcohol) [facility] Utilities Answer Date Recorded In the past 12 months has e [email or web address], gas, oil, or water [employer] threatened to shut off services in your [...] Info) Description 02/04/2025 2:15 PM EDT Follow-Up [facility] Nephrology 100 [facility] [address] [place] [address] John Hendricks MD [address] [address] 07/16/2025 10:00 AM EST Follow-Up [address] Cardiology 100 [facility] [address] [place] [address] Mabel Onofre NP 100 [facility] [address] [place] [address] documented as of this encounter Procedures * Due to [facility] law, this organization might not be sharing negative HIV tests. Procedure Name Priority Date/Time Associated Diagnosis Comments VITAMIN D, 25-HYDROXY, TOTAL, IMMUNOASSAY Routine 06/23/2024 6:00 AM EST Pneumonia due to other specified infectious organisms documented in this encounter Results * Due to [facility] law, this organization might not be sharing negative HIV tests. * (ABNORMAL) Vitamin D, 25-Hydroxy, Total, Immunoassay (06/23/2024 6:00 AM EST) Vitamin D 25-OH 21.50(L) 30.00 - 80.00 ng/mL 06/23/2024 8:52 AM EST [facility] Blood Structure of peripheral vein / Unknown 06/23/2024 6:00 AM EST 06/23/2024 7:54 AM EST us Mj Mendenhall MD LAB BLOOD ORDERABLES Final R esult [facility] 94 [facility] [address] [place] [address], documented in this encounter Visit Diagnoses Diagnosis Pneumonia due to other specified infectious organisms documented in this encounter Care Teams Night Warehouse Selector Relationship Specialty Start Date End Date Bijal Fox NP 100 [facility] [address] [place] [address] PCP - General Family Medicine 05/30/24 documented as of this encounter
--- OUTSIDE RECORDS SUMMARY | 2025-01-27 12:00 | XMS_ITS | Encounter Summary ---
Author Organization [facility] Address [address] [place] [address] Care Team Providers Care Switch Crew Supervisor Name Role Phone Bijal Fox SACK CLEANER Primary Care Provider [phone] Encounter Details Date Type Department Care Team (Late st Contact Info) Description 07/04/2024 Orders Only [facility] Lab [address] [place] [address] Magy Sawyer NP 100 [facility] [address] [place] [id number] Hyperlipidemia, unspecified hyperlipidemia type (Primary Dx); Myxedema heart disease Social History Tobacco Use Types Packs/Day Years Used Date Smoking Tobacco: Former Smokeless Tobacco: Never Comments:: Alcohol Use Standard Drinks/Week Comments Not Currently 0 (1 standard drink = 0.6 oz pur e alcohol) [facility] Utilities Answer Date Recorded In the past 12 months has th e [employer], gas, oil, or water [employer] threatened to shut off services in your [...] Info) Description 02/04/2025 2:15 PM EDT Follow-Up [facility] Nephrology 100 [facility] [address] [place] [address] John Hendricks MD [address] [address] 07/16/2025 10:00 AM EST Follow-Up [facility] 100 [facility] Cardiology 100 [facility] [address] [place] [address] Mabel Onofre NP 100 [facility] [address] [place] [address] documented as of this encounter Results * Due to [place] state law, this organization might not be sharing negative HIV tests. * T4, Free (07/13/2024 10:20 AM EST) Free T4 1.24 0.80 - 1.80 ng/dL 07/13/2024 11:15 AM EST [facility] Comment: Females: (ng/dL) First Trimester 0.95-1.58 ng/dL Second Trimester 0.76-1.24 ng/dL Third Trimester 0.70-1.25 ng/dL Dietary supplements containing biotin may interfere in assays and may skew analyte results to be falsely high. For patients receiving the recommended daily doses of biotin, draw samples at least 8 hours following the last biotin supplementation. For patients on phyllis-doses of biotin supplements, draw samples at least 72 hours following the last biotin supplementation. Blood Structure of peripheral vein / Unknown Venipuncture / Unknown 07/13/2024 10:20 AM EST 07/13/2024 10:29 AM EST us Magy Sawyer NP LAB BLOOD ORDERABLES Final Res ult Performing Organization Address [facility] Phone Number [facility] [address] [place] [address], [place] [phone] * TSH (07/13/2024 10:20 AM EST) TSH 3.750 0.270 - 4.200 uIU/mL 07/13/2024 11:15 AM EST [facility] Comment: Females: 1st trimester 0.150-4.000 IU/mL 2nd trimester 0.310-4.170 IU/mL 3rd trimester 0.380-4.150 IU/mL Blood Structure of peripheral vein / Unknown Venipuncture / Unknown 07/13/2024 10:20 AM EST 07/13/2024 10:29 AM EST us Magy Sawyer SACK CLEANER LAB BLOOD ORDERABLES Final Res ult Performing Organization Address [facility] Phone Number [facility] [address] [place] [address], [place] [phone] * (ABNORMAL) Comprehensive Metabolic Panel (07/13/2024 10:20 AM EST) NA 142 136 - 145 mmol/L 07/13/2024 11:15 AM EST [facility] K 4.6 3.5 - 5.1 mmol/L 07/13/2024 11:15 AM EST [facility] Cl 104 98 - 109 mmol/L 07/13/2024 11:15 AM EST [facility] CO2 28 22 - 32 mmol/L 07/13/2024 11:15 AM EST [facility] Anion Gap 15 >=0 07/13/2024 11:15 AM [facility] Glucose 94 60 - 99 mg/dL 07/13/2024 11:15 AM [facility] Creatinine 1.40(H) 0.50 - 1.12 mg/dL 07/13/2024 11:15 AM [facility] Calcium 9.4 8.4 - 10.4 mg/dL 07/13/2024 11:15 AM [facility] Total Protein 6.4(L) 6.6 - 8.7 g/dL 07/13/2024 11:15 AM [facility] Albumin 3.7 3.5 - 5.0 g/dL 07/13/2024 11:15 AM [facility] Bilirubin, Total 0.4 0.2 - 1.2 mg/dL 07/13/2024 11:15 AM [facility] Alkaline Phosphatase 113 40 - 129 U/L 07/13/2024 11:15 AM [facility] AST 25 0 - 33 U/L 07/13/2024 11:15 AM [facility] ALT 33 <=33 U/L 07/13/2024 11:15 AM [facility] BUN 20 8 - 23 mg/dL 07/13/2024 11:15 AM [facility] eGFR 40(L) >=60 mL/min/1. 73m2 07/13/2024 11:15 AM [facility] Comment:The estimated glomer ular filtration rate [...] - 4.2 g/dL 07/13/2024 11:15 AM EST [facility] A/G Ratio 1.4(L) 1.5 - 3.0 07/13/2024 11:15 AM EST [facility] Blood Structure of peripheral vein / Unknown Venipuncture / Unknown 07/13/2024 10:20 AM EST 07/13/2024 10:29 AM EST us Magy Sawyre SACK CLEANER LAB BLOOD ORDERABLES Final Res ult [facility] [address] [place] [address] [address] [place] [address], * Lipid panel (07/13/2024 10:20 AM EST) Cholesterol 259 mg/dL 07/13/2024 11:15 AM EST [facility] Comment: DESIRABLE: <200 mg/dL BORDERLINE HIGH: 200-239 mg/dL HIGH: >239 mg/dL Triglycerides 123 mg/dL 07/13/2024 11:15 AM EST [facility] Comment: NORMAL: <150 mg/dL BORDERLINE HIGH: 150-199 mg/dL HIGH: 200-499 mg/dL VERY HIGH >499 mg/dL Cholesterol, HDL 72 mg/dL 07/13/19 11:15 AM EST [facility] Comment: DESIRABLE: >60 mg/dL BORDERLINE: 40-59 mg/dL UNDESIRABLE: <40 mg/dL LDL Cholesterol 162 mg/dL 11:15 AM EST [facility] Comment: OPTIMAL: <100 mg/dL NEAR OPTIMAL: <130 mg/dL BORDERLINE HIGH: 130-159 mg/dL HIGH: 160-189 mg/dL VERY HIGH: >189 mg/dL VLDL 24.6 mg/dL 07/13/2024 11:15 AM EST [facility] Cholesterol/HDL Ratio 3.6 07/13/2024 11:15 AM EST [facility] Blood Structure of peripheral vein / Unknown Venipuncture / Unknown 07/13/2024 10:20 AM EST 07/13/2024 10:29 AM EST us Magy Sawyer SACK CLEANER LAB BLOOD ORDERABLES Final Res ult [facility] 94 [facility] [address] [place] [address], documented in this encounter Visit Diagnoses Diagnosis Hyperlipidemia, unspecified hyperlipidemia type- Primary Myxedema heart disease Unspecified hypothyroidism documented in this encounter Care Teams Switch Crew Supervisor Relationship Specialty Start Date End Date Bijal Fox NP 100 [facility] [address] [place] [address] PCP - General Family Medicine 05/30/24 documented as of this encounter
--- OUTSIDE RECORDS SUMMARY | 2025-01-27 12:01 | XMS_ITS | Patient Health Record ---
Author Organization [facility], [facility]. Address [address] [place] [phone] Care Team Providers Care Roller Picker Name Role Phone Noe Crum Primary Care Provider Noe Crum D.O. Unavailable [phone] Allergies Allergen (clinical drug ingredient) Drug/Non Drug Allergy documented on EMR Reaction Allergy Type Onset Date Status baclofen Baclofen hallucinations Drug Allergy Ac tive Substance with 1-zvnwpog-5-methyl glutaryl-coenzyme A reductase inhibitor mechanism of action (substance) Statins muscle weakness/pain Drug Allergy A ctive Results Component Value Reference Range Notes Hemoglobin A1c Reviewed date:04/03/2024 08:08:37 AM Interpretation: Performing Lab[facility], Phone - [phone], Director - [place] Notes/Report: Hemoglobin A1c 5.9 4.8-5.6 % . Prediabetes: 5.7 - 6.4 Diabetes: >6.4 Glycemic control for adults with diabetes: <7.0 PDF Report1 LCLS CBC Reviewed date:04/03/2024 08:08:37 AM Interpretation: Performing Lab:[facility], [address] [facility], Phone - [phone], Director - [place] Notes/Report: WBC 5.6 3.4-10.8 [...] % Immature Grans (Abs) 0.0 0.0-0.1 x10E3/uL Lipid Panel Reviewed date:04/03/2024 08:08:37 AM Interpretation: Performing Lab:[facility], [address] [place] [address], Phone - [phone], Director - [place] Notes/Report: Cholesterol, Total 249 100-199 mg/dL Triglycerides 119 0-149 mg/dL HDL Cholesterol 89 >39 mg/dL VLDL Cholesterol Anuj 20 5-40 mg/dL LDL Chol Calc (NIH) 140 0-99 mg/dL CMP Reviewed date:04/03/2024 08:08:37 AM Interpretation: Performing Lab:[facility], [address] [place] [address], Phone - [phone], Director - [place] Notes/Report: Glucose 89 70-99 [...] 0-40 IU/L ALT (SGPT) 23 0-32 IU/L Cardiovascular Risk Assessme nt Reviewed date:04/03/2024 08:08:37 AM Interpretation: Performing Lab:[facility], [address] [facility], Phone - [phone], Director - [place] Notes/Report: Interpretation Note Supplemental report is available. PDF Not applicable [facility] Reviewed date:04/03/2024 08:08:37 AM Interpretation: Performing Lab:[facility], [address] [facility], Phone - [phone], Director - [place] Notes/Report: Interpretation Note Supplemental report is available. PDF . Reason For Referral Reason 02/05/24 DX: M54.50 Referral Organization [facility], [facility]. Referring Provider First Name Noe Referring Provider Last Name Radames Referring Provider Speciality Internal M edicine Referred Provider Ruperto Lee Referred Provider Specialty Pain Medicin e Procedure 1 televisit EST INTERM EDIATE OFFICE VISIT (08607) Procedure 2 X-RAY EXAM OF LOWER SPINE (53340) Procedure 3 X-RAY EXAM OF LOWER SPINE (03744) Procedure 4 X-RAY EXAM OF LOWER SPINE (21917) Procedure 5 X-RAY EXAM OF TRUNK SPINE (36384) Procedure 6 Trigger Point 1-2 Mu scles (05308) Procedure 7 Trigger Point 3+ Mus cles (25633) Procedure 8 TRIAMCINOLONE 10 MG/ IM (J3301) Procedure 9 Dexamethasone 4MG/ML (J1100) Referral Priority Routine Referral Appointment Date 02/05/2024 Reason 02/13/24 DX: M54.2 Referral Organization [facility], [facility]. Referring Provider First Name Noe Referring Provider Last Name Radames Referring Provider Speciality Internal M edicine Referred Provider [facility] Referred Provider Specialty Orthopedic S urgery Procedure 1 televisit EST INTERM EDIATE OFFICE VISIT (45449) Procedure 2 X-RAY EXAM OF NECK S PINE (34526) Procedure 3 X-RAY EXAM OF NECK S PINE (66733) Procedure 4 Trigger Point 1-2 Mu scles (83878) Procedure 5 Trigger Point 3+ Mus cles (99906) Procedure 6 Dexamethasone 4MG/ML (J1100) Procedure 7 TRIAMCINOLONE 10 MG/ IM (J3301) Referral Priority Routine Referral Appointment Date 02/13/2024 Reason 02/27/24 DX: G89.[address] [facility] Referring Provider First Name Noe Referring Provider Last Name Radames Referring Provider Speciality Internal M edicine Referred Provider Shannan [facility], C had Referred Provider Specialty Pain Medicin e Procedure 1 Televisit EXPLOSIVES OPERATOR COMPREH ENSIVE VISIT (27771) Procedure 2 DRUG TEST PRSMV DIR OPT OBS (10062) Referral Priority Routine Referral Appointment Date 02/27/2024 Reason 02/20/24 DX: M96.[address] [facility] Referring Provider First Name Noe Referring Provider Last Name Radames Referring Provider Speciality Internal edicine Referred Provider Kelley, Radiology Ctr Referred Provider Specialty Radiology Procedure 1 MRI LUMBAR SPINE W/O DYE (94369) Referral Priority Routine Referral Appointment Date 02/20/2024 Reason 03/01/24 DX: M96.1 M 43.[address] [facility] Referring Provider First Name Noe Referring Provider Last Name Radames Referring Provider Speciality Internal edicine Referred Provider [facility] Referred Provider Specialty Orthopedic S urgery Procedure 1 televisit EST INTERM EDIATE OFFICE VISIT (31921) Referral Priority Routine Referral Appointment Date 03/01/2024 Reason 03/12/24 inj M54.[address] [facility] Referring Provider First Name Noe Referring Provider Last Name Radames Referring Provider Speciality Internal edicine Referred Provider Shannan [facility], C had Referred Provider Specialty Pain Medicin e Procedure 1 NJX INTERLAMINAR LMB R/SAC (70719) General Notes [facility] 024 04:09:56 PM EDT > IRASEMA Referral Priority Routine Referral Appointment Date 03/12/2024 Reason 03/12/24 DX: M54.16 03/11/24 CANCELLED p/PATIENT . JPLACE Referral Organization [facility] Referring Provider First Name Noe Referring Provider Last Name Radames [facility] Referred Provider Ruperto Lee Referred Provider Specialty Pain Medicin e Procedure 1 NJX INTERLAMINAR LMB R/SAC (38170) Referral Priority Routine Referral Appointment Date 03/12/2024 Reason 02/22/24 start DX: I [address] [facility] Referring Provider First Name Noe Referring Provider Last Name Radames [facility] Referred Provider Idris, Home [facility] Referred Provider Specialty Other Medica l Care Procedure 1 SRVC PHYS TRPST GRACE HLTH EA 15 MIN (G0151) Procedure 2 [facility] PT ASSIST HH/HO SPICE EA 15 MIN (G0157) Referral Priority Routine Referral Appointment Date 02/22/2024 Reason 04/02/24 DX: M54.50 46206. [address]181. [address]. [address]. Referral Organization [facility] Referring Provider First Name Noe Referring Provider Last Name Radames Ref[facility] Referred Provider [facility] Referred Provider Specialty Orthopedic S urgery Referral Priority Routine Referral Appointment Date 04/02/2024 Reason 04/03/24 DX: G89.[address] [facility], [facility]. Referring Provider First Name Noe Referring Provider Last Name Radames Referring [facility] Referred Provider Shannan Jacinto [facility], C had Referred Provider Specialty Pain Medicin e Procedure 1 Televisit EST LIMITE D OFFICE VISIT (73624) Procedure 2 televisit EST INTERM EDIATE OFFICE VISIT (27001) Procedure 3 DRUG TEST PRSMV DIR OPT OBS (71816) Referral Priority Routine Referral Appointment Date 04/03/2024 Reason 04/05/24 DX: M25.512 18022. 62576. 12323. J1100 x8. J[address] Referral Organization [facility], [facility]. Referring Provider First Name Noe Referring Provider Last Name Radames Ref[facility] Referred Provider Tony Samuel [facility] Denny Referred Provider Specialty Orthopedic S urgery Referral Priority Routine Referral Appointment Date 04/05/2024 Reason 04/11/24 DX: M54.[address] [facility] Referring Provider First Name Noe Referring Provider Last Name Radames Referring Provider Speciality Internal edicine Referred Provider [facility], [facility] had Referred Provider Specialty Pain Medicin e Procedure 1 NJX INTERLAMINAR LMB R/SAC (15109) Referral Priority Routine Referral Appointment Date 04/11/2024 Reason 05/10/24 DX: G89.4 9 9213/4, [address]25. Referral Organization [facility]. Referring Provider First Name Noe Referring Provider Last Name Guero Referring Provider [facility] Referred Provider [facility] had Referred Provider Specialty Pain Medicin e Referral Priority Routine Referral Appointment Date 05/10/2024 Reason 05/27/2024 DX: M54.[address] [facility]. Referring Provider First Name Noe Referring Provider Last Name Salvadordominique Referring [facility] Referred Provider Ruperto Lee Referred Provider Specialty [...] 25 MG TAKE 1 TABLET BY M OUT THREE TIMES A DAY NEEDED FOR ANXIETY; [...] Ezetimibe 10 MG TAKE 1 TABLET BY MORIS TH EVERY DAY FOR 90 DAYS; Duration: 90 Not-Taking Cardizem 120 MG 1 tablet PO BID Active traZODone HCl 100 MG TAKE 1 TABLET BY MO UTH EVERY DAY AT BEDTIME FOR 30 DAYS; Duration: 90 Active Losartan Potassium 50 MG TAKE 1 TABLET B Y MOUTH EVERY DAY FOR 90 DAYS; Duration: 90 Active Furosemide 20 MG TAKE 1 TABLET BY MORIS TH EVERY DAY; Duration: 90 Active Flecainide Acetate [...] HCl 0.1 MG TAKE 1 TABLET BY MO UTH EVERY DAY FOR 30 DAYS; Duration: 90 Not-Taking Magnesium 250 MG 1 tablet with a meal Orally Once a day; Duration: 30 day(s) Not-Taking B-Complex - as directed Orally Not-Taking DULoxetine HCl 60 MG TAKE 1 CAPSULE BY MOUTH EVERY DAY FOR 90 DAYS; Duration: 90 days Active Methocarbamol 750 MG TAKE 1 TABLET BY [facility] EVERY 8 HOURS; Duration: 30 days Active Immunizations Vaccine Route Administration Date Status Comme nts Covid-19 Vaccine Moderna Unknown 07/24/2020 Administere d 08/2020 moderna [employer] 3rd 04/02/2021 moderna [employer] [...] Risk Notes Problem Lumbosacral spondylosis without myelopathy (27185715) Spondylosis of lumbar region without myelopathy or radiculopathy (M47.816) Active confirmed Problem Mixed hyperlipidemia (876372577) Mixed hyperlipidemia (E78.2) Active confirmed Problem Generalized anxiety disorder (72066266) Generalized anxiety disorder (F41.1) Active confirmed Problem Hypothyroidism (24666868) Other specified hypothyroidism (E03.8) Active confirmed Problem Autoimmune thyroiditis (75799690) Autoimmune thyroiditis (E06.3) Active confirmed Problem Vitamin D deficiency (18733212) Vitamin D deficiency (E55.9) Active confirmed Problem Osteoarthritis of knee (118786680) Primary osteoarthritis of left knee (M17.12) Active confirmed Problem Opioid dependence (07618592) Opioid dependence, uncomplicated (F11.20) Active confirmed Problem Primary insomnia (4961900) Primary insomnia (F51.01) Active confirmed Problem Chronic pain (61755499) Other chronic pain (G89.29) Active confirmed Problem Chronic kidney disease due to hypertension (030477675710030) Hypertensive chronic kidney disease with stage 1 through stage 4 chronic kidney disease, or unspecified chronic kidney disease (I12.9) Active confirmed Problem Typical atrial flutter (479896748) Typical atrial flutter (I48.3) Active confirmed Problem Arthritis of left knee (6621397200887981) Other specified arthritis, left knee (M13.862) Active confirmed Problem Osteoarthritis of knee (279317964) Unilateral primary osteoarthritis, left knee (M17.12) Active confirmed Problem Atrial flutter (4927472) Atrial flutter (I48.92) Active confirmed Problem Benign hypertension (24561409) Benign hypertension (I10) Active confirmed Problem Tobacco dependence in remission (464653122) Tobacco abuse, in remission (F17.201) Active confirmed Problem Morbid obesity (439118465) Morbid obesity due to excess calories (E66.01) Active confirmed Problem Arthralgia of the pelvic region and thigh (215222322) Right hip pain (M25.551) Active confirmed Problem Primary hypertension (22453049) Primary hypertension (I10) Active confirmed Problem Atrial fibrillation (92733171) Episodic atrial fibrillation (I48.0) Active confirmed Problem Lumbar post-laminectomy syndrome (255560251) Lumbar post-laminectomy syndrome (M96.1) Active confirmed Problem Lumbosacral spondylosis without myelopathy (26093247) Osteoarthritis of spine with radiculopathy, lumbar region (M47.26) Active confirmed Problem Body mass index 40+ - severely obese (133240824) BMI 50.0-59.9, adult (Z68.43) Active confirmed Problem Localized, primary osteoarthritis of the shoulder region (890253174) 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) Active confirmed Problem Atrial fibrillation (17512477) Paroxysmal a-fib (I48.0) Active confirmed Problem Atrial flutter (4005804) Atrial flutter, unspecified type (I48.92) Active confirmed Problem Cervical spondylosis without myelopathy (983142992) Osteoarthritis of spine with radiculopathy, cervical region (M47.22) Active confirmed Problem Osteoarthritis of knee (315821982) Osteoarthritis of knee (M17.9) Active confirmed Problem Peripheral venous insufficiency (62315674) Venous insufficiency of both lower extremities (I87.2) Active confirmed Problem Localized, primary osteoarthritis of the pelvic region and thigh (390133864) Primary osteoarthritis of both hips (M16.0) Active confirmed Problem Flexural atopic dermatitis (857579084) Flexural atopic dermatitis (L20.89) Active confirmed Problem Neurogenic claudication (837530720) Spinal stenosis of lumbar region with neurogenic claudication (M48.062) Active confirmed Problem Pes planus (11037230) Pes planus of left foot (M21.42) Active confirmed Problem Chronic obstructive pulmonary disease (80346115) COPD (chronic obstructive pulmonary disease) case management patient (J44.9) Active confirmed Problem Chronic kidney disease stage 3A (disorder) (524908709) Chronic kidney disease, stage 3a (N18.31) Active confirmed Problem Gastroesophageal reflux disease with esophagitis (disorder) (332878593) Gastroesophageal reflux disease with esophagitis without hemorrhage (K21.00) Active confirmed Problem Primary osteoarthritis (209327878) Primary osteoarthritis involving multiple joints (M15.9) Active confirmed Encounters Encounter Location Date Provider Diagnosis [facility], [facility]. [address] [place] [id number] 01/31/2024 Noe Crum [facility], [facility]. [address] [place] [address] [id number] 02/01/2024 Noe Crum [facility], [facility]. [address] [place] [address] [id number] 02/06/[address] [facility], [facility]. [address] [place] [address] [id number] 02/09/2024 Noe Crum Lumbar post-laminect olamide syndrome M96.1 [facility], [facility]. [address] [place] [address] [id number] 02/14/2024 Noe Talanga Other chronic pain G89.29 [facility] [address], [place] [id number] 02/19/2024 Noe Talanga [facility] [address], [place] [id number] 02/19/2024 Noe Talanga [facility] [address], [place] [id number] 02/22/2024 Noe Talanga [facility] [address], [place] [id number] 02/22/2024 Noe Talanga [facility] [address], [place] [id number] 02/26/2024 Noe Talanga [facility] [address], [place] [id number] 03/04/2024 Noe Talanga [facility] [address], [place] [id number] 03/05/2024 Noe Talanga [facility] [address], [place] [id number] 03/11/2024 Noe Talanga [facility] [address], [place] [id number] 03/11/2024 Noe Talanga [facility] [address], [place] [id number] 03/13/2024 Noe Talanga [facility] [address], [place] [id number] 03/22/2024 Noe Talanga [facility] [address], [place] [id number] 03/26/2024 Noe Talanga [facility] [address], [place] [id number] 04/04/2024 Noe Talanga [facility] [address] [place] [id number] 04/05/2024 [facility], [facility] [address] [id number] 04/05/2024 [facility], [facility] [address] [id number] 04/08/2024 [facility], [facility] [address], [place] [id number] 04/10/2024 [facility], [facility] [address] [id number] 05/02/2024 [facility], [facility] [address] [place] [address] [id number] 05/06/2024 [facility], [facility] [address] [place] [address] [id number] 05/30/2024 [facility] Primary insomnia F51 .01 and Paroxysmal a-fib I48.0 [facility], [facility] [address] [id number] 08/09/2024 [facility], [facility] [address] [place] [address] [id number] 11/20/2024 [facility] [address] [place] [id number] 02/21/2024 [facility] discharge follow-up Z09 ; Other chronic pain G89.29 ; Primary osteoarthritis involving multiple joints M15.9 [...] of lumbar region with neurogenic claudication M48.062 [facility] [address] [id number] 04/08/2024 Noe Crum Colon cancer screeni ng Z12.11 ; Other chronic pain G89.29 ; Primary osteoarthritis involving multiple joints M15.9 [...] of lumbar region with neurogenic claudication M48.062 Assessments Encounter Date Diagnosis (ICD Code) Assessment Notes Treatment Notes Treatment Clinical Notes Section Notes 04/08/2024 Colon cancer screening (ICD-10 - Z12.11) 04/08/2024 Other chronic pain (ICD-10 - G89.29) Educated on Tylenol prn and daily stretches 05/30/2024 Primary insomnia (ICD-10 - F51.01) 02/21/2024 Hospital discharge follow-up (ICD-10 - Z09) 02/21/2024 Other chronic pain (ICD-10 - G89.29) Educated on Tylenol prn and daily stretches 02/14/2024 Other chronic pain (ICD-10 - G89.29) 02/09/2024 Lumbar post-laminectomy syndrome (ICD-10 - M96.1) 02/21/2024 Primary osteoarthritis involving multiple joints (ICD-10 - M15.9) Educated on Tylenol prn and daily stretches 05/30/2024 Paroxysmal a-fib (ICD-10 - I48.0) 04/08/2024 Primary osteoarthritis involving multiple joints (ICD-10 - M15.9) Educated on Tylenol prn and daily stretches 04/08/2024 Osteoarthritis of spine with radiculopathy, cervical region (ICD-10 - M47.22) S/P surgery; educated on Tylenol prn and daily stretches 02/21/2024 Osteoarthritis of spine with radiculopathy, cervical region (ICD-10 - M47.22) S/P surgery; educated on Tylenol prn and daily stretches 02/21/2024 Mixed hyperlipidemia (ICD-10 - E78.2) Educated on healthy diet, weight loss, and exercise. Unable to tolerate statins or Zetia. 04/08/2024 Mixed hyperlipidemia (ICD-10 - E78.2) Educated on healthy diet, weight loss, and exercise. Unable to tolerate statins or Zetia. 04/08/2024 Primary hypertension (ICD-10 - I10) Educated on low salt diet. 02/21/2024 Primary hypertension (ICD-10 - I10) Educated on low salt diet. 02/21/2024 Other specified hypothyroidism (ICD-10 - E03.8) 04/08/2024 Other specified hypothyroidism (ICD-10 - E03.8) 04/08/2024 Autoimmune thyroiditis (ICD-10 - E06.3) 02/21/2024 Autoimmune thyroiditis (ICD-10 - E06.3) 02/21/2024 Gastroesophageal reflux disease with esophagitis without hemorrhage (ICD-10 - K21.00) Educated on acid reflux diet. 04/08/2024 Gastroesophageal reflux disease with esophagitis without hemorrhage (ICD-10 - K21.00) Educated on acid reflux diet. 04/08/2024 Tobacco abuse, in remission (ICD-10 - F17.201) Counseled on continued cessation 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) Counseled on continued cessation 02/21/2024 Tendinitis of left rotator cuff (ICD-10 - M75.82) Educated on Tylenol prn and daily stretches 04/08/2024 Tendinitis of left rotator cuff (ICD-10 - M75.82) Educated on Tylenol prn and daily stretches 04/08/2024 Morbid obesity due to excess calories (ICD-10 - E66.01) Educated on healthy diet, weight loss, and exercise. 02/21/2024 Morbid obesity due to excess calories (ICD-10 - E66.01) Educated on healthy diet, weight loss, and exercise. 02/21/2024 Paroxysmal a-fib (ICD-10 - I48.0) 04/08/2024 Paroxysmal a-fib (ICD-10 - I48.0) 04/08/2024 Typical atrial flutter (ICD-10 - I48.3) S/P ablation 11/202102/21/2024 Typical atrial flutter (ICD-10 - I48.3) S/P ablation 11/202102/21/2024 Generalized anxiety disorder (ICD-10 - F41.1) 04/08/2024 Generalized anxiety disorder (ICD-10 - F41.1) 04/08/2024 Primary insomnia (ICD-10 - F51.01) Educated on proper sleep hygiene 02/21/2024 Primary insomnia (ICD-10 - F51.01) Educated [...] R73.03) Educated on low carb diet 02/21/2024 Hypertensive chronic kidney disease with stage 1 through stage 4 chronic kidney disease, or unspecified chronic kidney disease (ICD-10 - I12.9) Maintain good BP control 04/08/2024 Hypertensive chronic kidney disease with stage 1 through stage 4 chronic kidney disease, or unspecified chronic kidney disease (ICD-10 - I12.9) Maintain good BP control 04/08/2024 Chronic kidney disease, stage 3a (ICD-10 - N18.31) Educated to stay hydrated and to avoid NSAIDs 02/21/2024 Chronic kidney disease, stage 3a (ICD-10 - N18.31) Educated to stay hydrated and to avoid NSAIDs 02/21/2024 Venous insufficiency of both lower extremities (ICD-10 - I87.2) Educated on compression stockings and frequent leg elevation 04/08/2024 Venous insufficiency of both lower extremities (ICD-10 - I87.2) Educated on compression stockings and frequent leg elevation 04/08/2024 Flexural atopic dermatitis (ICD-10 - L20.89) 02/21/2024 Flexural atopic dermatitis (ICD-10 - L20.89) 02/21/2024 Primary osteoarthritis of both hips (ICD-10 - M16.0) Educated on Tylenol prn and daily stretches 04/08/2024 Primary osteoarthritis of both hips (ICD-10 - M16.0) Educated on Tylenol prn and daily stretches 04/08/2024 Vitamin D deficiency (ICD-10 - E55.9) Educated on OTC Vit D supplementation 02/21/2024 Vitamin D deficiency (ICD-10 - E55.9) Educated on OTC Vit D supplementation 04/08/2024 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 02/21/2024 Osteoarthritis of spine with radiculopathy, lumbar region (ICD-10 - M47.26) Educated on Tylenol prn and daily stretches; has appt with ortho to discuss surgery. 02/21/2024 Spinal stenosis of lumbar region with neurogenic claudication (ICD-10 - M48.062) Educated on Tylenol prn and daily stretches 04/08/2024 Spinal stenosis of lumbar region with neurogenic claudication (ICD-10 - M48.062) Educated on Tylenol prn and daily stretches 02/21/2024 Other Patient initiat ed consent verbally [...] [place] cornavirus task force guidelines. Gave pt [employer] COVID-BillGuard LINE phone number., Virtual visit real time [...] [place] cornavirus task force guidelines. Gave pt CDC COVID-19 HOT LINE phone number., Virtual visit real time audio/visual, pt. danyell, at office Plan Of Treatment Pending Test [...] lumbar laminectomy fusion 2014 RTHR 2011 HYSTERECTOMY 2012 GALLBLADDER REMOVED 2011 Hospitalization History Reason Date(Month/Year) surgeries listed above
== END 2025-01-27 12:04 | disposition home or self-care (01) ==
LOC: HO.HNS 10:09
PROVIDERS: PCP Nurse Practitioner Family; Visit Provider Physician Assistant
DX: Z98.1 Arthrodesis status (principal)
CPT/HCPCS: 99024

== ENCOUNTER → 2025-01-27 10:14 | Outpatient (BNV) | payer MEDICARE, SELFPAY | PROVIDERS: Visit Provider Radiology Diagnostic Radiology | DX: Z98.1 Arthrodesis status (principal) | CPT/HCPCS: 72110 ==